=== PATIENT | female | born 1990 | race Caucasian/White ===

== ENCOUNTER → 2017-10-26 14:29 | Outpatient (CLI) | payer OTHER, SELFPAY ==
[2017-10-26 15:15] LABS: Basophils # 0.1 K/mm3 (0-0.2); Basophils % 0.8 % (0.1-2.0); Eosinophils # 0.1 K/mm3 (0.0-0.4); Eosinophils % 1.1 % (0.1-12.0); Hematocrit 42.8 % (37.0-47.0); Hemoglobin 14.1 g/dL (12.2-16.2); Lymphocytes # 1.7 K/mm3 (0.7-4.5); Mean Corpuscular HGB Conc 33.1 g/dL (31.8-35.4); Mean Corpuscular Hemoglobin 29.6 pg (27.0-31.2); Mean Corpuscular Volume 89.6 fl (81-99); Monocytes # 0.4 K/mm3 (0.1-1.0); Monocytes % 5.8 % (1.7-9.3); Neutrophils # 4.5 K/mm3 (1.8-7.8); Neutrophils % 67.2 % (37.0-80.0); Platelet Count 276 K/mm3 (142-424); Red Blood Count 4.77 M/mm3 (4.20-5.40); Red Cell Distribution Width 12.7 % (11.5-17.5); White Blood Count 6.7 K/mm3 (4.8-10.8)
[2017-10-26 17:03] LABS: Alanine Aminotransferase 23 U/L (12-78); Albumin Level 4.2 gm/dL (3.4-5.0); Albumin/Globulin Ratio 1.1 (1.1-1.8); Alkaline Phosphatase 96 U/L (46-116); Anion Gap 11.7 mEq/L (5-15); Aspartate Amino Transferase 17 U/L (15-37); Bilirubin,Total 0.3 mg/dL (0.2-1.0); Blood Urea Nitrogen 10 mg/dL (7-18); Calcium 8.8 mg/dL (8.5-10.1); Carbon Dioxide 28 mmol/L (21.0-32.0); Chloride 105 mmol/L (98-107); Creatinine,Serum 0.69 mg/dL (0.55-1.02); Estimated Glomerular Filt Rate 104 ml/min (>60); Ferritin 56 ng/mL (8-388); Free T4 (Free Thyroxine) 0.91 ng/dl (0.76-1.46); GFR (African American) 125 ML/MIN (>60); Globulin 3.7 gm/dl (1.3-3.2); Glucose 99 mg/dL (74-106); Potassium 3.7 mmoL/L (3.5-5.1); Sodium 141 mmol/L (136-145); Thyroid Stimulating Hormone 0.88 uIU/ml (0.358-3.740); Total Protein,Serum 7.9 gm/dL (6.4-8.2)
== END ==
PROVIDERS: PCP Nurse Practitioner Family; Visit Provider Nurse Practitioner Family
DX: I49.9 Cardiac arrhythmia, unspecified (principal); R06.02 Shortness of breath
CPT/HCPCS: 36415; 80053; 82330; 82728; 84439; 84443; 85025; 93225; 93226

== ENCOUNTER → 2017-11-08 14:46 | Outpatient (POV) | payer OTHER, SELFPAY | PROVIDERS: PCP Nurse Practitioner Family; Visit Provider Nurse Practitioner Acute Care | DX: Z00.00 Encounter for general adult medical examination without abnormal findings (principal) ==

== ENCOUNTER 2017-12-07 19:38 | Emergency (ER) | payer OTHER, SELFPAY ==
[2017-12-07 19:40] VITALS: BP 104/82; PULSE 76; RESP 18; TEMP 37.2; O2SAT 98; BMI 20.7
[2017-12-07 20:06] LABS: Microscopic, Urine URINE MICROSCOPIC (MICROSCOPIC)
--- NOTE | 2017-12-07 20:08 | CT_ITS ---
CT abdomen pelvis wo con CLINICAL INDICATION: Lower abdominal pain ITS.REASON: abdominal pain ORDERING PHYSICIAN: Neo Irby MD PATIENT AGE: 27 years COMPARISON: 04/27/2017 TECHNIQUE: Axial images obtained with sagittal and coronal reformats. PROCEDURE: Oral Contrast: None IV Contrast: None . FINDINGS: Lower thorax: No acute finding ABDOMEN: Liver: No masses or biliary dilatation. Gallbladder: Status post cholecystectomy without ductal dilatation Pancreas: No masses or peripancreatic fluid collections. Spleen: Unremarkable. Adrenals: Unremarkable Kidneys/ureters: No masses. No obstructing renal calculi. No hydronephrosis. No perinephric fluid collections. No ureteral dilatation or obvious ureteral calculi. Punctate bilateral renal calculi at 1 to 2 mm in the upper pole on the right in the mid pole on the left Stomach bowel: Nondistended. No obvious mass or thickening. Appendix: No evidence of appendicitis. PELVIS: Reproductive: Unremarkable Bladder: Nondistended. No obvious stones or masses. ABDOMEN & PELVIS: Peritoneum: No abnormal fluid collections. No obvious inflammatory changes. No free air. Lymph nodes: No enlarged lymph nodes apparent. Vasculature: No evidence of abdominal aortic aneurysm. No retroperitoneal hemorrhage evident. Bones: No acute fracture IMPRESSION: 1. No acute abdominal or pelvic findings 2. Nonobstructing punctate bilateral renal calculi
[2017-12-07 20:14] LABS: Urine Pregnancy, HCG Qual. Negative (Negative)
[2017-12-07 20:17] LABS: Appearance,Urine CLEAR (Clear); Bilirubin,Urine Negative (Negative); Blood, Urine Negative (Negative); Color,Urine YELLOW (Yellow); Glucose,Urine (UA) Negative (Negative); Ketones,Urine Negative (Negative); Leukocyte Esterase,Urine Negative (Negative); Nitrate,Urine Negative (Negative); Protein,Urine Negative (Negative); Specific Gravity, Urine 1.025 (1.005-1.030); Urobilinogen,Urine 0.2 EU/dl (0.2)
[2017-12-07 20:22] LABS: Basophils % 0.5 % (0.1-2.0); Eosinophils % 0.1 % (0.1-12.0); Hematocrit 41.7 % (37.0-47.0); Hemoglobin 13.5 g/dL (12.2-16.2); Lymphocytes # 1.4 K/mm3 (0.7-4.5); Lymphocytes % 25.6 K/mm3 (10-50); Mean Corpuscular HGB Conc 32.4 g/dL (31.8-35.4); Mean Corpuscular Hemoglobin 28.8 pg (27.0-31.2); Mean Corpuscular Volume 88.8 fl (81-99); Mean Platelet Volume 7.1 fl (7.4-10.4); Monocytes # 0.5 K/mm3 (0.1-1.0); Monocytes % 9.3 % (1.7-9.3); Neutrophils # 3.6 K/mm3 (1.8-7.8); Neutrophils % 64.5 % (37.0-80.0); Platelet Count 294 K/mm3 (142-424); Red Blood Count 4.69 M/mm3 (4.20-5.40); Red Cell Distribution Width 12.2 % (11.5-17.5); White Blood Count 5.6 K/mm3 (4.8-10.8)
[2017-12-07 20:30] LABS: Lipase 60 u/L (73-393)
[2017-12-07 20:35] LABS: Alanine Aminotransferase 285 U/L (12-78); Alkaline Phosphatase 159 U/L (46-116); Amylase 46 U/L (25-125); Anion Gap 11.5 mEq/L (5-15); Aspartate Amino Transferase 215 U/L (15-37); Bilirubin,Total 0.2 mg/dL (0.2-1.0); Blood Urea Nitrogen 7 mg/dL (7-18); Calcium 8.5 mg/dL (8.5-10.1); Carbon Dioxide 30 mmol/L (21.0-32.0); Chloride 104 mmol/L (98-107); Creatinine Clearance Estimated 113 mL/min (0-300); Creatinine,Serum 0.76 mg/dL (0.55-1.02); Estimated Glomerular Filt Rate 93 ml/min (>60); GFR (African American) 112 ML/MIN (>60); Globulin 3.9 gm/dl (1.3-3.2); Glucose 93 mg/dL (74-106); Potassium 3.5 mmoL/L (3.5-5.1); Sodium 142 mmol/L (136-145); Total Protein,Serum 7.9 gm/dL (6.4-8.2)
[2017-12-07 20:48] VITALS: BP 110/77; PULSE 65; RESP 14; O2SAT 100
[2017-12-07 20:52] LABS: Bacteria,Urine 3+ /lpf; Mucus,Urine 1+ /lpf; RBC,Urine Occasional #/hpf (0-3); Squamous Epithelial Cell,Urine 20-50 #/hpf (0-5); WBC,Urine Occasional #/hpf (0-3)
[2017-12-07 21:55] LABS: Erythrocyte Sedimentation Rate 11 mm/hr (0-20)
--- NOTE | 2017-12-07 21:59 | [facility].EDNVD ---
ED Disposition Clinical Impression: Abdominal pain Qualifiers: Abdominal location: unspecified location Qualified Code(s): R10.9 - Unspecified abdominal pain Disposition: Home, Self-Care Condition on Discharge: Good Instructions: DI for Acute Abdomen Additional Instructions: call pcp in am Referrals: Sabine Juan APRN [Primary Care Provider] - - Critical Care Critical Care Time: No Attestation: On 12/07/17, the high probability of a clinically significant, sudden or life threatening deterioration of the following system(s) required my full and direct attention, intervention and personal management. The time I documented below is in addition to time spent performing reported procedures but includes the following listed in this critical care notation. Medical Decision Making - Medical Records Medical records reviewed: Yes: I reviewed the patient's medical records. - Federico Inquiry Pt receiving controlled substance: No Vital Signs: 12/07/17 19:40 12/07/17 20:48 Temperature 98.9 F Temperature Source Oral Pulse Rate [Right Brachial] 76 65 Respiratory Rate 18 14 Blood Pressure [Right Arm] 104/82 110/77 Blood Pressure Mean [Right Arm] 89 88 Blood Pressure Source [Right Arm] Automatic Cuff Automatic Cuff Blood Pressure Position [Right Arm] Sitting Sitting 02 Sat by Pulse Oximetry 98 100 Oxygen Delivery Method Room Air Room Air - Lab Data Lab results reviewed: Yes: I reviewed the patient's lab results. Lab Results 12/07/17 19:55: Urine Color Yellow, Urine Appearance Clear, Urine pH 6.0, Ur Specific [place] 1.025, Urine Protein Negative, Urine Glucose (UA) Negative, Urine Ketones Negative, Urine Blood Negative, Urine Nitrate Negative, Urine Bilirubin Negative, Urine Urobilinogen 0.2, Ur Leukocyte Esterase Negative, Urine RBC Occasional, Urine WBC Occasional, Ur Squamous Epith Cells 20-50, Urine Bacteria 3+, Urine Mucus 1+ 12/07/17 19:55: WBC 5.6, RBC 4.69, Hgb 13.5, Hct 41.7, MCV 88.8, MCH 28.8, MCHC 32.4, RDW 12.2, Plt Count 294, MPV 7.1 L, Neut % (Auto) 64.5, Lymph % (Auto) 25.6, [place] % (Auto) 9.3, Eos % (Auto) 0.1, Baso % (Auto) 0.5, Neut # (Auto) 3.6, Lymph # (Auto) 1.4, [place] # (Auto) 0.5, Eos # (Auto) 0.0, Baso # (Auto) 0.0 12/07/17 19:55: Urine HCG, Qual Negative 12/07/17 19:55: Sodium 142, Potassium 3.5, Chloride 104, Carbon Dioxide 30, Anion Gap 11.5, BUN 7, Creatinine 0.76, Estimated Creat Clear 113, Estimated GFR 93, Est GFR ( Amer) 112, Glucose 93, Calcium 8.5, Total Bilirubin 0.2, AST 215 H, ALT 285 H, Alkaline Phosphatase 159 H, Total Protein 7.9, Albumin 4.0, Globulin 3.9 H, Albumin/Globulin Ratio 1.0 L, Amylase 46 12/07/17 19:55: Lipase 60 L 12/07/17 19:55: ESR 11 Result diagrams: 12/07/17 19:55 12/07/17 19:55 Orders (Tests/Meds): ED MEDICATIONS Generic Name Dose Route Start Last Admin Trade Name Freq PRN Reason Stop Dose Admin Sodium Chloride 1,000 mls @ 999 mls/hr 12/07/17 21:00 12/07/17 21:05 Sod Chlor 0.9% 1000ml Bag IV 12/07/17 22:00 999 mls/hr .Q1H1M JOSSE Administration Discontinued Medications Generic Name Dose Route Start Last Admin Trade Name Freq PRN Reason Stop Dose Admin Ketorolac Tromethamine 30 mg 12/07/17 20:51 12/07/17 20:52 Toradol 30mg/Ml Vial IV 12/07/17 20:52 30 mg ONCE ONE Administration Ondansetron HCl 4 mg 12/07/17 20:23 12/07/17 20:26 Zofran 4mg/2ml Vial IV 12/07/17 20:24 4 mg ONCE ONE Administration Promethazine HCl 12.5 mg 12/07/17 21:01 Phenergan 25mg/Ml 1ml Vial IM 12/07/17 21:02 ONCE ONE Promethazine HCl 12.5 mg 12/07/17 21:08 12/07/17 21:09 Phenergan 25mg/Ml 1ml Vial IV 12/07/17 21:09 12.5 mg ONCE ONE Administration Sodium Chloride 12.5 ml 12/07/17 21:01 Sod Chlor 0.9% 25ml Bag IV 12/07/17 21:02 ONCE ONE Sodium Chloride 12.5 ml 12/07/17 21:08 Sod Chlor 0.9% 25ml Bag IV 12/07/17 21:09 ONCE ONE ORDERS Category Date Time Status CT
--- NOTE | 2017-12-07 22:02 | ED_ITS ---
ED Disposition Clinical Impression: Abdominal pain Qualifiers: Abdominal location: unspecified location Qualified Code(s): R10.9 - Unspecified abdominal pain Disposition: Home, Self-Care Condition on Discharge: Good Instructions: DI for Acute Abdomen Additional Instructions: call pcp in am Referrals: Sabine Juan APRN [Primary Care Provider] - - Critical Care Critical Care Time: No Attestation: On 12/07/17, the high probability of a clinically significant, sudden or life threatening deterioration of the following system(s) required my full and direct attention, intervention and personal management. The time I documented below is in addition to time spent performing reported procedures but includes the following listed in this critical care notation. Medical Decision Making - Medical Records Medical records reviewed: Yes: I reviewed the patient's medical records. - Federico Inquiry Pt receiving controlled substance: No Vital Signs: 12/07/17 19:40 12/07/17 20:48 Temperature 98.9 F Temperature Source Oral Pulse Rate [Right Brachial] 76 65 Respiratory Rate 18 14 Blood Pressure [Right Arm] 104/82 110/77 Blood Pressure Mean [Right Arm] 89 88 Blood Pressure Source [Right Arm] Automatic Cuff Automatic Cuff Blood Pressure Position [Right Arm] Sitting Sitting 02 Sat by Pulse Oximetry 98 100 Oxygen Delivery Method Room Air Room Air - Lab Data Lab results reviewed: Yes: I reviewed the patient's lab results. Lab Results 12/07/17 19:55: Urine Color Yellow, Urine Appearance Clear, Urine pH 6.0, Ur Specific [place] 1.025, Urine Protein Negative, Urine Glucose (UA) Negative, Urine Ketones Negative, Urine Blood Negative, Urine Nitrate Negative, Urine Bilirubin Negative, Urine Urobilinogen 0.2, Ur Leukocyte Esterase Negative, Urine RBC Occasional, Urine WBC Occasional, Ur Squamous Epith Cells 20-50, Urine Bacteria 3+, Urine Mucus 1+ 12/07/17 19:55: WBC 5.6, RBC 4.69, Hgb 13.5, Hct 41.7, MCV 88.8, MCH 28.8, MCHC 32.4, RDW 12.2, Plt Count 294, MPV 7.1 L, Neut % (Auto) 64.5, Lymph % (Auto) 25.6, [place] % (Auto) 9.3, Eos % (Auto) 0.1, Baso % (Auto) 0.5, Neut # (Auto) 3.6 , Lymph # (Auto) 1.4, [place] # (Auto) 0.5, Eos # (Auto) 0.0, Baso # (Auto) 0.0 12/07/17 19:55: Urine HCG, Qual Negative 12/07/17 19:55: Sodium 142, Potassium 3.5, Chloride 104, Carbon Dioxide 30, Anion Gap 11.5, BUN 7, Creatinine 0.76, Estimated Creat Clear 113, Estimated GFR 93, Est GFR ( Amer) 112, Glucose 93, Calcium 8.5, Total Bilirubin 0.2 , AST 215 H, ALT 285 H, Alkaline Phosphatase 159 H, Total Protein 7.9, Albumin 4.0, Globulin 3.9 H, Albumin/Globulin Ratio 1.0 L, Amylase 46 12/07/17 19:55: Lipase 60 L 12/07/17 19:55: ESR 11 Result diagrams: 12/07/17 19:55 12/07/17 19:55 Orders (Tests/Meds): ED MEDICATIONS Generic Name Dose Route Start Last Admin Trade Name Freq PRN Reason Stop Dose Admin Sodium Chloride 1,000 mls @ 999 mls/hr 12/07/17 21:00 12/07/17 21:05 Sod Chlor 0.9% 1000ml Bag IV 12/07/17 22:00 999 mls/hr .Q1H1M JOSSE Administration Discontinued Medications Generic Name Dose Route Start Last Admin Trade Name Freq PRN Reason Stop Dose Admin Ketorolac Tromethamine 30 mg 12/07/17 20:51 12/07/17 20:52 Toradol 30mg/Ml Vial IV 12/07/17 20:52 30 mg ONCE ONE Administration Ondansetron HCl 4 mg 12/07/17 20:23 12/07/17 20:26
[2017-12-07 22:19] VITALS: BP 121/71; PULSE 81; RESP 20; TEMP 37
[2017-12-09 09:17] LABS: Hep A Ab, IgM Negative (Negative); Hepatitis B Core Antibody IgM Negative (Negative); Hepatitis B Surface Antigen Negative (Negative)
[2017-12-10 15:14] LABS: Hepatitis C Antibody <0.1 s/co ratio (0.0-0.9)
== END 2017-12-07 22:19 | disposition home or self-care (01) ==
PROVIDERS: Emergency Medicine; Emergency Provider Emergency Medicine; PCP Nurse Practitioner
DX: R10.31 Right lower quadrant pain (principal); R10.32 Left lower quadrant pain; Z91.040 Latex allergy status; Z88.7 Allergy status to serum and vaccine; Z88.2 Allergy status to sulfonamides
CPT/HCPCS: 74176; 80053; 80074; 81001; 81025; 82150; 83690; 85025; 85651; 87086; 96360; 96365; 96374; 96375; 96376; 99283; J0595; J2405

== ENCOUNTER 2018-03-25 13:40 | Outpatient (CLI) | payer OTHER, SELFPAY ==
[2018-03-25 13:40] VITALS: BMI 22.4
[2018-03-25 14:36] LABS: Basophils % 0.5 % (0.1-2.0); Eosinophils # 0.3 K/mm3 (0.0-0.4); Eosinophils % 4.9 % (0.1-12.0); Hematocrit 36.6 % (37.0-47.0); Hemoglobin 11.9 g/dL (12.2-16.2); Lymphocytes # 1.3 K/mm3 (0.7-4.5); Mean Corpuscular HGB Conc 32.4 g/dL (31.8-35.4); Mean Corpuscular Volume 86.5 fl (81-99); Mean Platelet Volume 6.8 fl (7.4-10.4); Monocytes # 0.4 K/mm3 (0.1-1.0); Monocytes % 7.2 % (1.7-9.3); Neutrophils # 3.5 K/mm3 (1.8-7.8); Neutrophils % 63.5 % (37.0-80.0); Platelet Count 308 K/mm3 (142-424); Red Blood Count 4.24 M/mm3 (4.20-5.40); Red Cell Distribution Width 12.8 % (11.5-17.5); White Blood Count 5.4 K/mm3 (4.8-10.8)
[2018-03-25 14:40] VITALS: BP 91/58; PULSE 72; RESP 18
[2018-03-25 14:47] LABS: Alanine Aminotransferase 31 U/L (12-78); Albumin Level 3.6 gm/dL (3.4-5.0); Alkaline Phosphatase 114 U/L (46-116); Anion Gap 12.8 mEq/L (5-15); Aspartate Amino Transferase 28 U/L (15-37); Bilirubin,Total 0.2 mg/dL (0.2-1.0); Blood Urea Nitrogen 7 mg/dL (7-18); Calcium 8.4 mg/dL (8.5-10.1); Carbon Dioxide 26 mmol/L (21.0-32.0); Chloride 106 mmol/L (98-107); Creatinine Clearance Estimated 156 mL/min (0-300); Estimated Glomerular Filt Rate 122 ml/min (>60); GFR (African American) 147 ML/MIN (>60); Globulin 3.7 gm/dl (1.3-3.2); Glucose 84 mg/dL (74-106); Potassium 3.8 mmoL/L (3.5-5.1); Sodium 141 mmol/L (136-145); Total Protein,Serum 7.3 gm/dL (6.4-8.2)
[2018-03-25 15:09] LABS: Alanine Aminotransferase 33 U/L (12-78); Albumin Level 3.6 gm/dL (3.4-5.0); Alkaline Phosphatase 113 U/L (46-116); Aspartate Amino Transferase 27 U/L (15-37); Bilirubin,Direct 0.1 mg/dL (0.0-0.2); Bilirubin,Indirect 0.1 mg/dL (0.0-0.9); Bilirubin,Total 0.2 mg/dL (0.2-1.0)
[2018-03-25 15:10] VITALS: BP 114/76; PULSE 77; RESP 18
[2018-03-25 16:00] VITALS: BP 152/61; PULSE 66; RESP 20; TEMP 36.9; O2SAT 96
[2018-03-29 09:02] LABS: Rubella Antibodies, IgG 9.08 index (Immune >0.99); Varicella Zoster IgG 1530 index (Immune >165)
== END 2018-03-25 16:00 | disposition home or self-care (01) ==
LOC: INF 13:43
PROVIDERS: Family Medicine; PCP Nurse Practitioner; Visit Provider Nurse Practitioner
DX: E86.0 Dehydration (principal); L02.91 Cutaneous abscess, unspecified
CPT/HCPCS: 80053; 80076; 85025; 86762; 86787; 96360; 96375

== ENCOUNTER → 2018-04-11 16:42 | Outpatient (CLI) | payer OTHER, SELFPAY ==
--- NOTE | 2018-04-11 | XR_ITS ---
XR hand RT min 3V HISTORY: ITS.REASON: PAIN ORDERING PHYSICIAN: Sabine Juan PATIENT AGE: 27 years COMPARISON: Right hand 03/16/2017 FINDINGS: No fracture or dislocation. No lytic or blastic change. There is normal mineralization.. The joint spaces are well-preserved. No significant degenerative/arthritic changes. No erosive changes evident.. IMPRESSION: Negative, no acute finding
--- NOTE | 2018-04-11 | XR_ITS ---
XR wrist RT min 3V HISTORY: ITS.REASON: PAIN ORDERING PHYSICIAN: Sabine Juan PATIENT AGE: 27 years COMPARISON: Right wrist 02/15/2017 FINDINGS: No fracture or dislocation. No lytic or blastic change. There is normal mineralization.. The joint spaces are well-preserved. No significant degenerative/arthritic changes. No erosive changes evident.. IMPRESSION: Negative wrist
== END ==
PROVIDERS: PCP Nurse Practitioner; Visit Provider Nurse Practitioner
DX: M25.531 Pain in right wrist (principal)
CPT/HCPCS: 73110; 73130

== ENCOUNTER 2018-05-29 15:22 | Observation (INO) ==
[2018-05-29 15:45] LABS: Basophils % 0.4 % (0.1-2.0); Eosinophils # 0.1 K/mm3 (0.0-0.4); Eosinophils % 1.6 % (0.1-12.0); Hematocrit 32.9 % (37.0-47.0); Hemoglobin 10.5 g/dL (12.2-16.2); Lymphocytes # 1.5 K/mm3 (0.7-4.5); Lymphocytes % 17.8 K/mm3 (10-50); Mean Corpuscular HGB Conc 31.9 g/dL (31.8-35.4); Mean Corpuscular Hemoglobin 27.8 pg (27.0-31.2); Mean Corpuscular Volume 87.1 fl (81-99); Mean Platelet Volume 6.7 fl (7.4-10.4); Monocytes # 0.6 K/mm3 (0.1-1.0); Monocytes % 7.3 % (1.7-9.3); Platelet Count 430 K/mm3 (142-424); Red Blood Count 3.78 M/mm3 (4.20-5.40); Red Cell Distribution Width 14.1 % (11.5-17.5); White Blood Count 8.3 K/mm3 (4.8-10.8)
--- NOTE | 2018-05-29 15:46 | Emergency Department Note ---
ED Disposition Clinical Impression: Hypokalemia, Hyperglycemia, Sinus tachycardia Disposition: Home, Self-Care Condition on Discharge: Fair Referrals: Sabine Juan APRN [Primary Care Provider] - - Critical Care Critical Care Time: No Attestation: On 05/29/18, the high probability of a clinically significant, sudden or life threatening deterioration of the following system(s) required my full and direct attention, intervention and personal management. The time I documented below is in addition to time spent performing reported procedures but includes the following listed in this critical care notation. Medical Decision Making - Federico Inquiry Pt receiving controlled substance: No Federico was queried for this patient: No Vital Signs: 05/29/18 15:22 05/29/18 15:50 05/29/18 16:40 Temperature 97.9 F Temperature Source Oral Pulse Rate [Right Radial] 144 H 122 H 121 H Respiratory Rate 24 20 Blood Pressure [Right Arm] 127/84 127/84 115/49 Blood Pressure Mean [Right Arm] 98 98 71 Blood Pressure Source [Right Arm] Manual Cuff/ Doppler Automatic Cuff Automatic Cuff Blood Pressure Position [Right Arm] Sitting Sitting Sitting 02 Sat by Pulse Oximetry 97 100 100 Oxygen Delivery Method Nasal Cannula Nasal Cannula Nasal Cannula Oxygen Flow Rate (LPM) 2 2 2 05/29/18 17:54 Temperature Temperature Source Pulse Rate [Right Radial] 108 H Respiratory Rate 16 Blood Pressure [Right Arm] 115/49 Blood Pressure Mean [Right Arm] 71 Blood Pressure Source [Right Arm] Automatic Cuff Blood Pressure Position [Right Arm] Sitting 02 Sat by Pulse Oximetry 100 Oxygen Delivery Method Nasal Cannula Oxygen Flow Rate (LPM) 2 - Lab Data Lab Results 05/29/18 15:33: WBC 8.3, RBC 3.78 L, Hgb 10.5 L, Hct 32.9 L, MCV 87.1, MCH 27.8, MCHC 31.9, RDW 14.1, Plt Count 430 H, MPV 6.7 L, Neut % (Auto) 73.0, Lymph % (Auto) 17.8, [place] % (Auto) 7.3, Eos % (Auto) 1.6, Baso % (Auto) 0.4, Neut # (Auto) 6.0, Lymph # (Auto) 1.5, [place] # (Auto) 0.6, Eos # (Auto) 0.1, Baso # (Aut o) 0.0 05/29/18 15:33: PT 9.9, INR 0.96, D-Dimer 234 05/29/18 15:33: Total Creatine Kinase 30, CK-MB (CK-2) < 0.5, CK-MB (CK-2) Rel Index 1.7, Troponin I < 0.02 05/29/18 15:33: B-Natriuretic Peptide 6 05/29/18 15:33: Sodium 145, Potassium 2.2 L*, Chloride 107, Carbon Dioxide 21, Anion Gap 19.2 H, BUN 4 L, Creatinine 1.02, Estimated Creat Clear 97, Estimated GFR 66, Est GFR ( Amer) 79, Glucose 234 H, Calcium 8.3 L, Total Bilirubin 0.1 L, AST 13 L, ALT 23, Alkaline Phosphatase 115, Total Protein 7.3, Albumin 3.6, Globulin 3.7 H, Albumin/Globulin Ratio 1.0 L 05/29/18 15:33: Serum HCG, Qual Negative 05/29/18 15:33: Hemoglobin A1c 5.0 05/29/18 15:36: Specimen Source Right brachial, O2 % 28%, ABG pH 7.36, ABG pCO2 37.3, ABG pO2 174.0 H, ABG HCO3 20.5 L, ABG Total CO2 21.6 L, ABG O2 Saturation 99, ABG Base Excess -5.0 L, Gerber Test Non applicable 05/29/18 17:16: Sodium 145, Potassium 2.7 L* D, Chloride 110 H, Carbon Dioxide 25, Anion Gap 12.7, BUN 4 L, Creatinine 0.73 D, Estimated Creat Clear 136, Estimated GFR 96, Est GFR ( Amer) 117 D, Glucose 107 H D, Calcium 7.8 L 05/29/18 17:16: Magnesium 1.4 05/29/18 17:22: Urine Color Yellow, Urine Appearance Clear, Urine pH 6.0, Ur Specific [place] <= 1.005, Urine Protein Negative, Urine Glucose (UA) Negative, Urine Ketones Negative, Urine Blood Negative, Urine Nitrate Negative, Urine Bilirubin Negative, Urine Urobilinogen 0.2, Ur Leukocyte Esterase Negative, Ur Squamous Epith Cells 3-5, Ur Renal Epithelial Cell Occasional, Amorphous Sediment Trace 05/29/18 17:22: Urine Opiates Screen Positive H, Urine Methadone Screen Negative, Ur Barbituates Screen Negative, Ur Phencyclidine Scrn Negative, Ur Am phetamines Screen Negative, U Benzodiazepines Scrn Positive H, Urine Cocaine Screen Negative, U Marijuana (THC) Screen Negative Result diagrams: 05/29/18 15:33 05/29/18 17:16 Orders (Tests/Meds): ED MEDICATIONS Discontinued Medications Generic Name Dose Route Start Last Admin Trade Name Freq PRN Reason Stop Dose Admin Sodium Chloride 1,000 mls @ 999 mls/hr 05/29/18 15:45 05/29/18 15:52 Sod Chlor 0.9% 1000ml Bag IV 05/29/18 16:45 999 mls/hr .Q1H1M JOSSE Administration Sodium Chloride 1,000 mls @ 999 mls/hr 05/29/18 16:45 05/29/18 16:47 Sod Chlor 0.9% 1000ml Bag IV 05/29/18 17:45 999 mls/hr .Q1H1M JOSSE Administration Lorazepam 2 mg 05/29/18 15:42 05/29/18 15:51 Ativan 2mg/Ml Vial IV 05/29/18 15:43 2 mg ONCE ONE Administration Morphine Sulfate 2 mg 05/29/18 16:43 05/29/18 16:47 Morphine 2mg/Ml Syringe IV 05/29/18 16:44 2 mg ONCE ONE Administration Ondansetron HCl 4 mg 05/29/18 15:42 05/29/18 15:51 Zofran 4mg/2ml Vial IV 05/29/18 15:43 4 mg ONCE ONE Administration Potassium Chloride 20 meq 05/29/18 16:19 05/29/18 16:21 Klor-Con 20meq Tablet PO 05/29/18 16:20 20 meq ONCE ONE Administration Promethazine HCl 12.5 mg 05/29/18 16:30 05/29/18 16:34 Phenergan 25mg/Ml 1ml Vial IV 05/29/18 16:31 12.5 mg ONCE ONE Administration Sodium Chloride 25 ml 05/29/18 16:30 Sod Chlor 0.9% 25ml Bag IV 05/29/18 16:31 ONCE ONE ORDERS Category Date Time Status UA [Urinalysis and Microscopic] Stat Lab 05/29/18 17:22 Ordered ABG [Arterial Blood Gas] Stat RT 05/29/18 15:36 Ordered - Radiology Data #1 Image(s): Chest Image Reviewed: Yes I reviewed the patient's radiology image, Yes I have reviewed radiologist's interpretation Preliminary Findings: Normal/NAD MPRESSION: Stable chest. Nothing definite acute. - ECG Data Tracing #1 Sinus tachycardia 1 41/min baseline artifact no acute findings ECG initial impression date: 05/29/18 ECG initial impression time: 15:20 Medical Decision Narrative: The patient gradually improved questions were answered, requested hemoglobin A1 c. Her I repeated her labs potassium came up to 2.7. Reviewed CXr and lab results with the patient. I called who was environmental engineer for Dr. Hines and after discussion we agreed to admit the patient for IV fluid therapy hypokalemia repeat BMp at 2100 and order insulin and c peptid on her. General Adult HPI - General Chief complaint: Arrhythmia/Palpitations Stated complaint: Chest Pain Time Seen by Provider: 05/29/18 15:25 Mode of Arrival: Wheelchair Limitations: No Limitations Description of Symptoms (Recalled from ER Triage Doc. by RN): sitting at home, no noted activity, pt states she began to have shortness of air, and felt her heart rate beating out of her chest, notes pain as well 10/10. states checked hr manually, was 190. beared down in valgal maneuver, heart rate decreased to 90 then went right back to 170's. 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 30 minutes ago while she was studying she developed palpitations shortness of air numbness of the mouth and the hand associated with chest pressure. She checked her pulse and she was having a heart rate of 190/min so she did a Valsalva maneuver and she brought it down and came to the ED with a heart rate of 140/min. She continues to have a heart rate of 1 20/min on the monitor. He denies recent intake of alcohol or drug use. Denies smoke. One months ago she was diagnosed with vocal cord dysfunction after her trip to the [facility] and was seen at [facility] and started on Celexa 20 mg. Onset (ago): minute(s) (30 minutes prior to arrival.) Location: head, chest, upper extremity, lower extremity Severity: moderate Consistency: constant Relieving factors: other (Symptoms were reduced by Valsalva maneuver. ) Exacerbating factors: none Associated symptoms: nausea/vomiting (felt nauseoius oin the ED. ) - Related Data Home Medications Medication Instructions Recorded Confirmed Phenobarb/Hyoscy/Atropine/Scop 16.2 mg PO TID PRN 12/07/17 04/09/18 [ Tablet] RX: Omeprazole [Omeprazole 20mg 20 mg PO DAILY 12/07/17 04/09/18 Capsule] RX: Ondansetron [Zofran 4mg 4 mg PO Q6HP PRN 12/07/17 04/09/18 ODT] RX: Promethazine HCl [Phenergan 25 mg PO QID 12/07/17 04/09/18 25mg tab] Gabapentin [Gabapentin 100mg Cap] 300 mg PO BID 02/17/18 04/09/18 Prochlorperazine Maleate 5 mg PO DAILY 02/17/18 04/09/18 [Compazine] RX: Amitriptyline HCl [Elavil 50mg 50 mg PO DAILY 02/17/18 04/09/18 tablet] RX: Scopolamine [Transderm-Scop 1 patch TOPICAL DAILY 02/17/18 04/09/18 1.5mg/72hrs patch] RX: Zinc 50 mg PO DAILY 02/17/18 04/09/18 Ubidecarenone [Coenzyme Q10] 10 mg PO DAILY 02/17/18 04/09/18 Hydrocodone/Acetaminophen 1 each PO Q4HP PRN 04/09/18 04/09/18 [Hydrocodone-Acetamin 5-325 mg] RX: Sucralfate [Sucralfate 1gm 1 tab PO BID 04/09/18 04/09/18 Tab] Previous Rx's Medication Instructions Recorded Furosemide [Lasix 20mg tab] 20 mg PO DAILY #6 tab 05/07/18 RX: Potassium Chloride 20 meq PO DAILY #6 tablet.er 05/07/18 Allergies Allergy/AdvReac Type Severity Reaction Status Date / Time latex [LATEX] Allergy Unknown Verified 04/09/18 01:05 Pertussis Vaccines Allergy Unknown Verified 07/14/18 01:05 [PERTUSSIS VACCINES] pineapple [PINEAPPLE] Allergy Unknown Verified 04/09/18 01:05 Sulfa (Sulfonamide Allergy Unknown Verified 04/09/18 01:05 Antibiotics) [SULFA (SULFONAMIDE ANTIBIOTICS)] COCONUT Allergy Unknown ANAPHYLACTIC Uncoded 09/14/17 15:14 REACTION [facility] History I have reviewed the patient's past medical history: Yes Medical History: Denies:: Cancer, Diabetes Mellitus Type 1, Diabetes Mellitus Type 2, MRSA Amputation: No Fractures: No - Social History Smoking Status: Never smoker Alcohol Intake: never Alcohol Intake Frequency:: holidays/special occasions only ROS Obtained: Yes All systems reviewed & no additional complaints Physical Exam - General General appearance: alert, in no apparent distress, anxious - Head Head exam: atraumatic, normocephalic, normal inspection - Eye Eye exam: Present: normal appearance, PERRL, EOMI. Absent: scleral icterus, conjunctival redness, jaundice, nystagmus, miosis - ENT ENT exam: Present: normal exam, normal oropharynx, mucous membranes moist, TM's normal bilaterally, normal external ear exam - Neck Neck exam: Present: normal inspection, full ROM, trachea midline. Absent: men ingismus, lymphadenopathy - Chest Chest inspection: Present: normal inspection, symmetric chest wall rise. Absent: tenderness - Respiratory Respiratory exam: Present: normal lung sounds bilaterally. Absent: respiratory distress, wheezes - Cardiovascular Cardiovascular exam: Present: regular rate, normal rhythm. Absent: JVD - Abdominal Exam Abdominal exam: Present: soft, normal bowel sounds. Absent: distention, tenderness, guarding, rebound, rigidity - Extremities Exam Extremities exam: Present: normal inspection, full ROM, normal capillary refill. Absent: tenderness, calf tenderness - Back Exam Back exam: Present: normal inspection. Absent: tenderness, CVA tenderness (R), CVA tenderness (L), paraspinal tenderness, vertebral tenderness - Neurological Exam Neurological exam: Present: alert, oriented X3, CN II-XII intact, motor sensory deficit, reflexes normal - Psychiatric Psychiatric exam: Present: normal affect, normal mood - Skin Skin exam: Present: warm, dry, intact, normal color - Lymphatic Lymphatic Findings: no adenopathy
[2018-05-29 15:54] LABS: INR 0.96 (0.9-1.1); Prothrombin Time 9.9 seconds (9.4-11.8)
[2018-05-29 15:56] LABS: Albumin Level 3.6 gm/dL (3.4-5.0); Anion Gap 19.2 mEq/L (5-15); Bilirubin,Total 0.1 mg/dL (0.2-1.0); Calcium 8.3 mg/dL (8.5-10.1); Globulin 3.7 gm/dl (1.3-3.2); Total Protein,Serum 7.3 gm/dL (6.4-8.2)
[2018-05-29 15:58] LABS: Potassium 2.2 mmoL/L (3.5-5.1)
[2018-05-29 16:10] LABS: ABG HCO3 20.5 mmhg (22.0-26.0); ABG Oxygen Saturation 99 % (90-100); ABG PCO2 37.3 mmhg (35.0-45.0); ABG PH 7.36 mmol/L (7.35-7.45); ABG TCO2 21.6 mmhg (23-27)
[2018-05-29 16:12] LABS: Allen's Test Non Applicable; Oxygen 28% %
[2018-05-29 16:46] LABS: Creatine Kinase 30 U/L (26-192)
[2018-05-29 17:27] LABS: Microscopic, Urine URINE MICROSCOPIC (MICROSCOPIC)
[2018-05-29 17:32] LABS: Appearance,Urine CLEAR (Clear); Bilirubin,Urine Negative (Negative); Blood, Urine Negative (Negative); Color,Urine YELLOW (Yellow); Glucose,Urine (UA) Negative (Negative); Ketones,Urine Negative (Negative); Leukocyte Esterase,Urine Negative (Negative); Protein,Urine Negative (Negative); Specific Gravity, Urine <= 1.005 (1.005-1.030); Urobilinogen,Urine 0.2 EU/dl (0.2)
[2018-05-29 17:33] LABS: Anion Gap 12.7 mEq/L (5-15); Calcium 7.8 mg/dL (8.5-10.1)
[2018-05-29 17:35] LABS: Potassium 2.7 mmoL/L (3.5-5.1)
[2018-05-29 17:39] LABS: Amorphous Sediment,Urine Trace /lpf; Amphetamine/Metha Screen,Urine Negative ng/mL (<1000); Barbiturates Screen,Urine Negative ng/mL (<200); Benzodiazepines Screen,Urine Positive ng/mL (<200); Cannabinoid Screen,Urine Negative ng/mL (<50); Cocaine Screen,Urine Negative ng/mL (<300); Methadone Screen,Urine Negative ng/mL (<300); Opiate Screen,Urine Positive ng/mL (<300); Phencyclidine Screen,Urine Negative ng/mL (<25); Renal Epithelial Cells,Urine Occasional #/lpf (0)
[2018-05-29 21:01] LABS: Blood Urea Nitrogen 4 mg/dL (7-18); Calcium 7.9 mg/dL (8.5-10.1); Carbon Dioxide 27 mmol/L (21.0-32.0); Chloride 110 mmol/L (98-107); Glucose 99 mg/dL (74-106); Sodium 145 mmol/L (136-145)
[2018-05-30 05:51] LABS: Basophils % 0.3 % (0.1-2.0); Eosinophils # 0.1 K/mm3 (0.0-0.4); Eosinophils % 1.9 % (0.1-12.0); Hematocrit 30.9 % (37.0-47.0); Hemoglobin 9.7 g/dL (12.2-16.2); Lymphocytes # 0.8 K/mm3 (0.7-4.5); Lymphocytes % 14.4 K/mm3 (10-50); Mean Corpuscular HGB Conc 31.4 g/dL (31.8-35.4); Mean Corpuscular Hemoglobin 27.9 pg (27.0-31.2); Mean Corpuscular Volume 88.8 fl (81-99); Mean Platelet Volume 6.5 fl (7.4-10.4); Monocytes # 0.2 K/mm3 (0.1-1.0); Monocytes % 3.8 % (1.7-9.3); Neutrophils # 4.6 K/mm3 (1.8-7.8); Neutrophils % 79.6 % (37.0-80.0); Platelet Count 278 K/mm3 (142-424); Red Blood Count 3.48 M/mm3 (4.20-5.40); White Blood Count 5.8 K/mm3 (4.8-10.8)
[2018-05-30 06:09] LABS: Albumin Level 3.3 gm/dL (3.4-5.0); Bilirubin,Total 0.2 mg/dL (0.2-1.0); Calcium 7.7 mg/dL (8.5-10.1); Globulin 3.3 gm/dl (1.3-3.2); Phosphorous 3.7 mg/dL (2.4-4.9); Total Protein,Serum 6.6 gm/dL (6.4-8.2)
--- NOTE | 2018-05-30 07:56 | H&P/Discharge Summary ---
General - General Admission date:: 05/29/18 Discharge date: 05/30/18 *Admission Date: 05/29/18 *Chief complaint: palpitations/chest pain *History of present illness: 88-year-old female was at home in her normal state of health yesterday with acute onset of palpitations. Patient estimated her heart rate was around 170. With a vasovagal maneuver at home she was able to temporarily decrease her heart rate but returned to a severely elevated right along with chest pressure and she presented to the emergency department. In the emergency department she was found to be hypokalemic and hypomagnesemic. Patient denies diuretic use other than a single dose of diuretic received a few weeks ago when she had pedal edema. She was admitted for potassium replacement. [facility] History I have reviewed the patient's past medical history: Yes Medical History: Denies:: Cancer, Diabetes Mellitus Type 1, Diabetes Mellitus Type 2, MRSA Other Surgeries: Yes: Cholecystectomy Amputation: No Fractures: No - *Social History Educational Level: Completed College Smoking Status: Never smoker Alcohol Intake: never Alcohol Intake Frequency:: holidays/special occasions only Occupational Status: student Housing: house Household Members: spouse - Psychiatric History Expresses thoughts of harming self/others: None Suicide Plan Description: No Plan *Family Hx:: Diabetes, Hypertension Review of Systems - Review of Systems Review of systems:: pertinent systems reviewed and negative unless documented below Exam Vital signs and Labs for Last 24 Hours: Temp Pulse Resp BP Pulse Ox 97.7 F 94 H 16 122/70 98 05/30/18 04:00 05/30/18 04:00 05/30/18 04:00 05/30/18 04:00 05/30/18 04:00 Laboratory Results - last 24 hr 05/29/18 15:33: WBC 8.3, RBC 3.78 L, Hgb 10.5 L, Hct 32.9 L, MCV 87.1, MCH 27.8, MCHC 31.9, RDW 14.1, Plt Count 430 H, MPV 6.7 L, Neut % (Auto) 73.0, Lymph % (Auto) 17.8, [place] % (Auto) 7.3, Eos % (Auto) 1.6, Baso % (Auto) 0.4, Neut # (Auto) 6.0, Lymph # (Auto) 1.5, [place] # (Auto) 0.6, Eos # (Auto) 0.1, Baso # (Auto) 0.0 05/29/18 15:33: PT 9.9, INR 0.96, D-Dimer 234 05/29/18 15:33: Total Creatine Kinase 30, CK-MB (CK-2) < 0.5, CK-MB (CK-2) Rel Index 1.7, Troponin I < 0.02 05/29/18 15:33: B-Natriuretic Peptide 6 05/29/18 15:33: Sodium 145, Potassium 2.2 L*, Chloride 107, Carbon Dioxide 21, Anion Gap 19.2 H, BUN 4 L, Creatinine 1.02, Estimated Creat Clear 97, Estimated GFR 66, Est GFR ( Amer) 79, Glucose 234 H, Calcium 8.3 L, Total Bilirubin 0.1 L, AST 13 L, ALT 23, Alkaline Phosphatase 115, Total Protein 7.3, Albumin 3.6, Globulin 3.7 H, Albumin/Globulin Ratio 1.0 L, Lipase 74 05/29/18 15:33: Serum HCG, Qual Negative 05/29/18 15:33: Hemoglobin A1c 5.0 05/29/18 15:36: Specimen Source Right brachial, O2 % 28%, ABG pH 7.36, ABG pCO2 37.3, ABG pO2 174.0 H, ABG HCO3 20.5 L, ABG Total CO2 21.6 L, ABG O2 Saturation 99, ABG Base Excess -5.0 L, Gerber Test Non applicable 05/29/18 17:16: Sodium 145, Potassium 2.7 L* D, Chloride 110 H, Carbon Dioxide 25, Anion Gap 12.7, BUN 4 L, Creatinine 0.73 D, Estimated Creat Clear 136, Estimated GFR 96, Est GFR ( Amer) 117 D, Glucose 107 H D, Calcium 7.8 L 05/29/18 17:16: Magnesium 1.4 05/29/18 17:22: Urine Color Yellow, Urine Appearance Clear, Urine pH 6.0, Ur Specific [place] <= 1.005, Urine Protein Negative, Urine Glucose (UA) Negative, Urine Ketones Negative, Urine Blood Negative, Urine Nitrate Negative, Urine Bilirubin Negative, Urine Urobilinogen 0.2, Ur Leukocyte Esterase Negative, Ur Squamous Epith Cells 3-5, Ur Renal Epithelial Cell Occasional, Amorphous Sediment Trace 05/29/18 17:22: Urine Opiates Screen Positive H, Urine Methadone Screen Negative, Ur Barbituates Screen Negative, Ur Phencyclidine Scrn Negative, Ur Amphetamines Screen Negative, U Benzodiazepines Scrn Positive H, Urine Cocaine Screen Negative, U Marijuana (THC) Screen Negative 05/29/18 20:38: Sodium 145, Potassium 4.0 D, Chloride 110 H, Carbon Dioxide 27, Anion Gap 12.0, BUN 4 L, Creatinine 0.78, Estimated Creat Clear 126, Estimated GFR 89, Est GFR ( Amer) 108, Glucose 99, Calcium 7.9 L, Troponin I < 0.02 05/30/18 05:24: WBC 5.8 D, RBC 3.48 L, Hgb 9.7 L, Hct 30.9 L, MCV 88.8, MCH 27.9, MCHC 31.4 L, RDW 14.0, Plt Count 278 D, MPV 6.5 L, Neut % (Auto) 79.6, Lymph % (Auto) 14.4, [place] % (Auto) 3.8, Eos % (Auto) 1.9, Baso % (Auto) 0.3, Neut # (Auto) 4.6, Lymph # (Auto) 0.8, [place] # (Auto) 0.2, Eos # (Auto) 0.1, Baso # (Auto) 0.0 05/30/18 05:24: Sodium 146 H, Potassium 4.0, Chloride 111 H, Carbon Dioxide 28, Anion Gap 11.0, BUN 3 L, Creatinine 0.73, Estimated Creat Clear 135, Estimated GFR 96, Est GFR ( Amer) 117, Glucose 94, Calcium 7.7 L, Phosphorus 3.7, Magnesium 2.0 D, Total Bilirubin 0.2, AST 23 D, ALT 28, Alkaline Phosphatase 106, Total Protein 6.6, Albumin 3.3 L, Globulin 3.3 H, Albumin/Globulin Ratio 1.0 L 05/30/18 05:36: POC Glucose 79 I & O for Last 24 hours: Intake & Output 05/27/18 05/28/18 05/29/18 05/30/18 11:59 11:59 11:59 11:59 Intake Total 2227 / 2227 Output Total 700 / 700 Balance 1527 / 1527 Weight 161 lb 6 oz Narrative: Patient is awake and alert sitting up in bed and does not appear to be in any distress. Oropharynx is moist. Neck is without lymphadenopathy. Lungs are clear. Heart has a regular rate and rhythm. Abdomen is soft, nontender, nondistended. Hospital Course Hospital Course: She was admitted and given both oral and IV potassium replacement. Magnesium was replaced as well with 2 g of mag. The following morning patient's potassium was 4. Palpitations had improved. Patient continued to complain of some chest heaviness. Lungs are clear to auscultation. She was discharged home. She will have a follow-up outpatient potassium lab drawn. No changes in medications Results Labs on day of discharge: Labs from last 24 hours 05/30/18 05/30/18 05/30/18 05:36 05:24 05:24 WBC 5.8 D RBC 3.48 L Hgb 9.7 L Hct 30.9 L MCV 88.8 MCH 27.9 MCHC 31.4 L RDW 14.0 Plt Count 278 D MPV 6.5 L Neut % (Auto) 79.6 Lymph % (Auto) 14.4 [place] % (Auto) 3.8 Eos % (Auto) 1.9 Baso % (Auto) 0.3 Neut # (Auto) 4.6 Lymph # (Auto) 0.8 [place] # (Auto) 0.2 Eos # (Auto) 0.1 Baso # (Auto) 0.0 PT INR D-Dimer Specimen Source O2 % ABG pH ABG pCO2 ABG pO2 ABG HCO3 ABG Total CO2 ABG O2 Saturation ABG Base Excess Gerber Test Sodium 146 H Potassium 4.0 Chloride 111 H Carbon Dioxide 28 Anion Gap 11.0 BUN 3 L Creatinine 0.73 Estimated Creat Clear 135 Estimated GFR 96 Est GFR ( Amer) 117 Glucose 94 POC Glucose 79 Hemoglobin A1c Calcium 7.7 L Phosphorus 3.7 Magnesium 2.0 D Total Bilirubin 0.2 AST 23 D ALT 28 Alkaline Phosphatase 106 Total Creatine Kinase CK-MB (CK-2) CK-MB (CK-2) Rel Index Troponin I B-Natriuretic Peptide Total Protein 6.6 Albumin 3.3 L Globulin 3.3 H Albumin/Globulin Ratio 1.0 L Lipase Serum HCG, Qual Urine Color Urine Appearance Urine pH Ur Specific [place] Urine Protein Urine Glucose (UA) Urine Ketones Urine Blood Urine Nitrate Urine Bilirubin Urine Urobilinogen Ur Leukocyte Esterase Ur Squamous Epith Cells Ur Renal Epithelial Cell Amorphous Sediment Urine Opiates Screen Urine Methadone Screen Ur Barbituates Screen Ur Phencyclidine Scrn Ur Amphetamines Screen U Benzodiazepines Scrn Urine Cocaine Screen U Marijuana (THC) Screen 05/29/18 05/29/18 05/29/18 20:38 17:22 17:22 WBC RBC Hgb Hct MCV MCH MCHC RDW Plt Count MPV Neut % (Auto) Lymph % (Auto) [place] % (Auto) Eos % (Auto) Baso % (Auto) Neut # (Auto) Lymph # (Auto) [place] # (Auto) Eos # (Auto) Baso # (Auto) PT INR D-Dimer Specimen Source O2 % ABG pH ABG pCO2 ABG pO2 ABG HCO3 ABG Total CO2 ABG O2 Saturation ABG Base Excess Gerber Test Sodium 145 Potassium 4.0 D Chloride 110 H Carbon Dioxide 27 Anion Gap 12.0 BUN 4 L Creatinine 0.78 Estimated Creat Clear 126 Estimated GFR 89 Est GFR ( Amer) 108 Glucose 99 POC Glucose Hemoglobin A1c Calcium 7.9 L Phosphorus Magnesium Total Bilirubin AST ALT Alkaline Phosphatase Total Creatine Kinase CK-MB (CK-2) CK-MB (CK-2) Rel Index Troponin I < 0.02 B-Natriuretic Peptide Total Protein Albumin Globulin Albumin/Globulin Ratio Lipase Serum HCG, Qual Urine Color Yellow Urine Appearance Clear Urine pH 6.0 Ur Specific [place] <= 1.005 Urine Protein Negative Urine Glucose (UA) Negative Urine Ketones Negative Urine Blood Negative Urine Nitrate Negative Urine Bilirubin Negative Urine Urobilinogen 0.2 Ur Leukocyte Esterase Negative Ur Squamous Epith Cells 3-5 Ur Renal Epithelial Cell Occasional Amorphous Sediment Trace Urine Opiates Screen Positive H Urine Methadone Screen Negative Ur Barbituates Screen Negative Ur Phencyclidine Scrn Negative Ur Amphetamines Screen Negative U Benzodiazepines Scrn Positive H Urine Cocaine Screen Negative U Marijuana (THC) Screen Negative 05/29/18 05/29/18 05/29/18 17:16 17:16 15:36 WBC RBC Hgb Hct MCV MCH MCHC RDW Plt Count MPV Neut % (Auto) Lymph % (Auto) [place] % (Auto) Eos % (Auto) Baso % (Auto) Neut # (Auto) Lymph # (Auto) [place] # (Auto) Eos # (Auto) Baso # (Auto) PT INR D-Dimer Specimen Source Right brachial O2 % 28% ABG pH 7.36 ABG pCO2 37.3 ABG pO2 174.0 H ABG HCO3 20.5 L ABG Total CO2 21.6 L ABG O2 Saturation 99 ABG Base Excess -5.0 L Gerber Test Non applicable Sodium 145 Potassium 2.7 L* D Chloride 110 H Carbon Dioxide 25 Anion Gap 12.7 BUN 4 L Creatinine 0.73 D Estimated Creat Clear 136 Estimated GFR 96 Est GFR ( Amer) 117 D Glucose 107 H D POC Glucose Hemoglobin A1c Calcium 7.8 L Phosphorus Magnesium 1.4 Total Bilirubin AST ALT Alkaline Phosphatase Total Creatine Kinase CK-MB (CK-2) CK-MB (CK-2) Rel Index Troponin I B-Natriuretic Peptide Total Protein Albumin Globulin Albumin/Globulin Ratio Lipase Serum HCG, Qual Urine Color Urine Appearance Urine pH Ur Specific [place] Urine Protein Urine Glucose (UA) Urine Ketones Urine Blood Urine Nitrate Urine Bilirubin Urine Urobilinogen Ur Leukocyte Esterase Ur Squamous Epith Cells Ur Renal Epithelial Cell Amorphous Sediment Urine Opiates Screen Urine Methadone Screen Ur Barbituates Screen Ur Phencyclidine Scrn Ur Amphetamines Screen U Benzodiazepines Scrn Urine Cocaine Screen U Marijuana (THC) Screen 05/29/18 05/29/18 05/29/18 15:33 15:33 15:33 WBC RBC Hgb Hct MCV MCH MCHC RDW Plt Count MPV Neut % (Auto) Lymph % (Auto) [place] % (Auto) Eos % (Auto) Baso % (Auto) Neut # (Auto) Lymph # (Auto) [place] # (Auto) Eos # (Auto) Baso # (Auto) PT INR D-Dimer Specimen Source O2 % ABG pH ABG pCO2 ABG pO2 ABG HCO3 ABG Total CO2 ABG O2 Saturation ABG Base Excess Gerber Test Sodium 145 Potassium 2.2 L* Chloride 107 Carbon Dioxide 21 Anion Gap 19.2 H BUN 4 L Creatinine 1.02 Estimated Creat Clear 97 Estimated GFR 66 Est GFR ( Amer) 79 Glucose 234 H POC Glucose Hemoglobin A1c 5.0 Calcium 8.3 L Phosphorus Magnesium Total Bilirubin 0.1 L AST 13 L ALT 23 Alkaline Phosphatase 115 Total Creatine Kinase CK-MB (CK-2) CK-MB (CK-2) Rel Index Troponin I B-Natriuretic Peptide Total Protein 7.3 Albumin 3.6 Globulin 3.7 H Albumin/Globulin Ratio 1.0 L Lipase 74 Serum HCG, Qual Negative Urine Color Urine Appearance Urine pH Ur Specific [place] Urine Protein Urine Glucose (UA) Urine Ketones Urine Blood Urine Nitrate Urine Bilirubin Urine Urobilinogen Ur Leukocyte Esterase Ur Squamous Epith Cells Ur Renal Epithelial Cell Amorphous Sediment Urine Opiates Screen Urine Methadone Screen Ur Barbituates Screen Ur Phencyclidine Scrn Ur Amphetamines Screen U Benzodiazepines Scrn Urine Cocaine Screen U Marijuana (THC) Screen 05/29/18 05/29/18 05/29/18 15:33 15:33 15:33 WBC RBC Hgb Hct MCV MCH MCHC RDW Plt Count MPV Neut % (Auto) Lymph % (Auto) [place] % (Auto) Eos % (Auto) Baso % (Auto) Neut # (Auto) Lymph # (Auto) [place] # (Auto) Eos # (Auto) Baso # (Auto) PT 9.9 INR 0.96 D-Dimer 234 Specimen Source O2 % ABG pH ABG pCO2 ABG pO2 ABG HCO3 ABG Total CO2 ABG O2 Saturation ABG Base Excess Gerber Test Sodium Potassium Chloride Carbon Dioxide Anion Gap BUN Creatinine Estimated Creat Clear Estimated GFR Est GFR ( Amer) Glucose POC Glucose Hemoglobin A1c Calcium Phosphorus Magnesium Total Bilirubin AST ALT Alkaline Phosphatase Total Creatine Kinase 30 CK-MB (CK-2) < 0.5 CK-MB (CK-2) Rel Index 1.7 Troponin I < 0.02 B-Natriuretic Peptide 6 Total Protein Albumin Globulin Albumin/Globulin Ratio Lipase Serum HCG, Qual Urine Color Urine Appearance Urine pH Ur Specific [place] Urine Protein Urine Glucose (UA) Urine Ketones Urine Blood Urine Nitrate Urine Bilirubin Urine Urobilinogen Ur Leukocyte Esterase Ur Squamous Epith Cells Ur Renal Epithelial Cell Amorphous Sediment Urine Opiates Screen Urine Methadone Screen Ur Barbituates Screen Ur Phencyclidine Scrn Ur Amphetamines Screen U Benzodiazepines Scrn Urine Cocaine Screen U Marijuana (THC) Screen 05/29/18 15:33 WBC 8.3 RBC 3.78 L Hgb 10.5 L Hct 32.9 L MCV 87.1 MCH 27.8 MCHC 31.9 RDW 14.1 Plt Count 430 H MPV 6.7 L Neut % (Auto) 73.0 Lymph % (Auto) 17.8 [place] % (Auto) 7.3 Eos % (Auto) 1.6 Baso % (Auto) 0.4 Neut # (Auto) 6.0 Lymph # (Auto) 1.5 [place] # (Auto) 0.6 Eos # (Auto) 0.1 Baso # (Auto) 0.0 PT INR D-Dimer Specimen Source O2 % ABG pH ABG pCO2 ABG pO2 ABG HCO3 ABG Total CO2 ABG O2 Saturation ABG Base Excess Gerber Test Sodium Potassium Chloride Carbon Dioxide Anion Gap BUN Creatinine Estimated Creat Clear Estimated GFR Est GFR ( Amer) Glucose POC Glucose Hemoglobin A1c Calcium Phosphorus Magnesium Total Bilirubin AST ALT Alkaline Phosphatase Total Creatine Kinase CK-MB (CK-2) CK-MB (CK-2) Rel Index Troponin I B-Natriuretic Peptide Total Protein Albumin Globulin Albumin/Globulin Ratio Lipase Serum HCG, Qual Urine Color Urine Appearance Urine pH Ur Specific [place] Urine Protein Urine Glucose (UA) Urine Ketones Urine Blood Urine Nitrate Urine Bilirubin Urine Urobilinogen Ur Leukocyte Esterase Ur Squamous Epith Cells Ur Renal Epithelial Cell Amorphous Sediment Urine Opiates Screen Urine Methadone Screen Ur Barbituates Screen Ur Phencyclidine Scrn Ur Amphetamines Screen U Benzodiazepines Scrn Urine Cocaine Screen U Marijuana (THC) Screen DS: Diagnosis - Discharge Diagnosis (1) Hypokalemia Status: Acute (2) Hypomagnesemia Status: Acute (3) Sinus tachycardia Status: Acute Discharge Medications - Medications for Discharge Home Medication List at Discharge: No Action Ondansetron [Zofran 4mg ODT] 4 mg PO Q6HP PRN PRN Reason: n/v Omeprazole [Omeprazole 20mg Capsule] 40 mg PO BID Ubidecarenone [Coenzyme Q10] 10 mg PO DAILY Scopolamine [Transderm-Scop 1.5mg/72hrs patch] 1 patch TOPICAL DAILY Prochlorperazine Maleate [Compazine] 5 mg PO DAILY Gabapentin [Gabapentin 100mg Cap] 300 mg PO BID Amitriptyline HCl [Elavil 50mg tablet] 75 mg PO DAILY Buspirone HCl 15 mg PO Q8 LORazepam [Ativan] 1 mg PO BID diazePAM [diazePAM 5mg Tablet] 5 mg PO DAILY ALPRAZolam [Alprazolam 0.25mg Tab] 0.25 mg PO BID diphenhydrAMINE HCl [Sleep Aid] 25 mg PO DAILY MDD 50 MG Promethazine HCl [Phenergan 25mg tab] 25 mg PO QID Zinc 50 mg PO DAILY Sucralfate [Sucralfate 1gm Tab] 1 tab PO BID Hydrocodone/Acetaminophen [Hydrocodone-Acetamin 5-325 mg] 1 each PO Q4HP PRN PRN Reason: pain Escitalopram Oxalate 10 mg PO DAILY Hyoscyamine Sulfate 0.125 mg SL Q4H Sennosides/Docusate Sodium [Docusate Sodium-Sennosides Tab] 1 each PO DAILY Melatonin 15 mg PO DAILY Disposition Disposition: Home, Self-Care
--- NOTE | 2018-05-30 10:34 | Progress Note ---
Internal Medicine - PN: Subj Interval history: Patient seen by Dr. Hines this morning. As her workup showed no concern for cardiac etiology for chest pain, potassium had normalized, and she remained hemodynamically stable. Plan was to discharge her home. She has worsening complaint of pain that is migratory. Initially was complaining of substernal pain that was the same as the pain she came in with. Requested morphine or Dilaudid for that pain. Decision was made to give her a GI cocktail. Prior to taking the GI cocktail that pain resolved and she is now complaining of pain in bilateral hips and legs with difficulty ambulating to the bathroom. Exam essentially normal other than emotional tearful patient with complaint of leg pain. Added CK to morning labs from blood already obtained. Was negative with no change since admission. Additionally, review of lab work from this morning showed mild hypocalcemia. Otherwise normal. After return of labs, went back to patient room to inform patient that there is no medical reason to continue to keep her admitted. Inform her to this time her symptoms are beyond the capability of our facility. She proceeded to be very frustrated that we are discharging her home without the ability to walk which is a new development since learning she was getting discharge this morning. Inf ormed her there is nothing else I could do to help her. Informed her I was willing to give her some medication for pain. Initially she was receptive but then became completely unreceptive to any input from physician. Showed behavior of splitting as I was unable to help her with her current symptoms. Family began requesting as well for MRI of back as well as testing for diseases such as West Nile virus, as that could explain her symptoms. Inform the family again that these were not medically indicated and there is nothing more we could do for her. Patient then proceeded to fire me as her physician. Exam Vital signs and Labs for Last 24 Hours: Temp Pulse Resp BP Pulse Ox 98.5 F 108 H 16 103/59 98 05/30/18 08:00 05/30/18 08:00 05/30/18 08:00 05/30/18 08:00 05/30/18 08:00 Laboratory Results - last 24 hr 05/29/18 15:33: WBC 8.3, RBC 3.78 L, Hgb 10.5 L, Hct 32.9 L, MCV 87.1, MCH 27.8, MCHC 31.9, RDW 14.1, Plt Count 430 H, MPV 6.7 L, Neut % (Auto) 73.0, Lymph % (Auto) 17.8, [place] % (Auto) 7.3, Eos % (Auto) 1.6, Baso % (Auto) 0.4, Neut # (Auto) 6.0, Lymph # (Auto) 1.5, [place] # (Auto) 0.6, Eos # (Auto) 0.1, Baso # (Auto) 0.0 05/29/18 15:33: PT 9.9, INR 0.96, D-Dimer 234 05/29/18 15:33: Total Creatine Kinase 30, CK-MB (CK-2) < 0.5, CK-MB (CK-2) Rel Index 1.7, Troponin I < 0.02 05/29/18 15:33: B-Natriuretic Peptide 6 05/29/18 15:33: Sodium 145, Potassium 2.2 L*, Chloride 107, Carbon Dioxide 21, Anion Gap 19.2 H, BUN 4 L, Creatinine 1.02, Estimated Creat Clear 97, Estimated GFR 66, Est GFR ( Amer) 79, Glucose 234 H, Calcium 8.3 L, Total Bilirubin 0.1 L, AST 13 L, ALT 23, Alkaline Phosphatase 115, Total Protein 7.3, Albumin 3.6, Globulin 3.7 H, Albumin/Globulin Ratio 1.0 L, Lipase 74 05/29/18 15:33: Serum HCG, Qual Negative 05/29/18 15:33: Hemoglobin A1c 5.0 05/29/18 15:36: Specimen Source Right brachial, O2 % 28%, ABG pH 7.36, ABG pCO2 37.3, ABG pO2 174.0 H, ABG HCO3 20.5 L, ABG Total CO2 21.6 L, ABG O2 Saturation 99, ABG Base Excess -5.0 L, Gerber Test Non applicable 05/29/18 17:16: Sodium 145, Potassium 2.7 L* D, Chloride 110 H, Carbon Dioxide 25, Anion Gap 12.7, BUN 4 L, Creatinine 0.73 D, Estimated Creat Clear 136, Estimated GFR 96, Est GFR ( Amer) 117 D, Glucose 107 H D, Calcium 7.8 L 05/29/18 17:16: Magnesium 1.4 05/29/18 17:22: Urine Color Yellow, Urine Appearance Clear, Urine pH 6.0, Ur Specific [place] <= 1.005, Urine Protein Negative, Urine Glucose (UA) Negative, Urine Ketones Negative, Urine Blood Negative, Urine Nitrate Negative, Urine Bilirubin Negative, Urine Urobilinogen 0.2, Ur Leukocyte Esterase Negative, Ur Squamous Epith Cells 3-5, Ur Renal Epithelial Cell Occasional, Amorphous [place] ent Trace 05/29/18 17:22: Urine Opiates Screen Positive H, Urine Methadone Screen Negative, Ur Barbituates Screen Negative, Ur Phencyclidine Scrn Negative, Ur Amphetamines Screen Negative, U Benzodiazepines Scrn Positive H, Urine Cocaine Screen Negative, U Marijuana (THC) Screen Negative 05/29/18 20:38: Sodium 145, Potassium 4.0 D, Chloride 110 H, Carbon Dioxide 27, Anion Gap 12.0, BUN 4 L, Creatinine 0.78, Estimated Creat Clear 126, Estimated G FR 89, Est GFR ( Amer) 108, Glucose 99, Calcium 7.9 L, Troponin I < 0.02 05/30/18 05:24: WBC 5.8 D, RBC 3.48 L, Hgb 9.7 L, Hct 30.9 L, MCV 88.8, MCH 27.9, MCHC 31.4 L, RDW 14.0, Plt Count 278 D, MPV 6.5 L, Neut % (Auto) 79.6, Lymph % (Auto) 14.4, [place] % (Auto) 3.8, Eos % (Auto) 1.9, Baso % (Auto) 0.3, Neut # (Auto) 4.6, Lymph # (Auto) 0.8, [place] # (Auto) 0.2, Eos # (Auto) 0.1, Baso # (Auto) 0.0 05/30/18 05:24: Sodium 146 H, Potassium 4.0, Chloride 111 H, Carbon Dioxide 28, Anion Gap 11.0, BUN 3 L, Creatinine 0.73, Estimated Creat Clear 135, Estimated GFR 96, Est GFR ( Amer) 117, Glucose 94, Calcium 7.7 L, Phosphorus 3.7, Magnesium 2.0 D, Total Bilirubin 0.2, AST 23 D, ALT 28, Alkaline Phosphatase 106, Total Protein 6.6, Albumin 3.3 L, Globulin 3.3 H, Albumin/Globulin Ratio 1.0 L 05/30/18 05:36: POC Glucose 79 I & O for Last 24 hours: Intake & Output 05/27/18 05/28/18 05/29/18 05/30/18 23:59 23:59 23:59 23:59 Intake Total 800 / 800 1427 / 1427 Output Total 700 / 700 Balance 800 / 800 727 / 727 Weight 73.198 kg - Routine Psychiatric Exam Comments: Labile mood, very agitated, splitting behavior after discussion. Assessment and Plan (1) Hypokalemia Current visit: Yes Status: Acute Category: Medical Code(s): E87.6 - Hypokalemia (2) Hypomagnesemia Current visit: Yes Status: Acute Category: Medical Code(s): E83.42 - Hypomagnesemia (3) Sinus tachycardia Current visit: Yes Status: Acute Category: Medical Code(s): R00.0 - Tachycardia, unspecified
[2018-05-31 15:26] LABS: Insulin Level Total 108.5 uIU/mL (2.6-24.9)
== END 2018-05-30 12:45 | disposition home or self-care (01) ==
LOC: 2ND 15:22 → ER 15:22 → 2ND 18:40
PROVIDERS: ADMIT Internal Medicine Adolescent Medicine; ATTEND Family Medicine

== ENCOUNTER 2018-06-17 18:33 | Observation (INO) ==
[2018-06-17 19:08] LABS: Microscopic, Urine URINE MICROSCOPIC (MICROSCOPIC)
[2018-06-17 19:12] LABS: Appearance,Urine CLEAR (Clear); Bilirubin,Urine Negative (Negative); Blood, Urine TRACE-L (Negative); Color,Urine YELLOW (Yellow); Glucose,Urine (UA) Negative (Negative); Ketones,Urine Negative (Negative); Leukocyte Esterase,Urine Negative (Negative); PH,Urine 7.5 (5.0-8.5); Protein,Urine Negative (Negative); Urobilinogen,Urine 0.2 EU/dl (0.2)
[2018-06-17 19:18] LABS: Basophils % 0.4 % (0.1-2.0); Eosinophils # 0.1 K/mm3 (0.0-0.4); Eosinophils % 1.2 % (0.1-12.0); Hematocrit 33.1 % (37.0-47.0); Hemoglobin 10.7 g/dL (12.2-16.2); Lymphocytes # 1.8 K/mm3 (0.7-4.5); Lymphocytes % 18.7 K/mm3 (10-50); Mean Corpuscular HGB Conc 32.4 g/dL (31.8-35.4); Mean Corpuscular Hemoglobin 27.9 pg (27.0-31.2); Mean Platelet Volume 6.6 fl (7.4-10.4); Monocytes # 0.7 K/mm3 (0.1-1.0); Monocytes % 6.7 % (1.7-9.3); Neutrophils % 72.9 % (37.0-80.0); Platelet Count 300 K/mm3 (142-424); Red Blood Count 3.85 M/mm3 (4.20-5.40); Red Cell Distribution Width 13.7 % (11.5-17.5); White Blood Count 9.6 K/mm3 (4.8-10.8)
[2018-06-17 19:26] LABS: Bacteria,Urine Trace /lpf; RBC,Urine Occasional #/hpf (0-3)
[2018-06-17 20:04] LABS: Anion Gap 16.2 mEq/L (5-15); Blood Urea Nitrogen 8 mg/dL (7-18); Calcium 8.3 mg/dL (8.5-10.1); Carbon Dioxide 26 mmol/L (21.0-32.0); Chloride 106 mmol/L (98-107); Glucose 131 mg/dL (74-106); Sodium 146 mmol/L (136-145)
[2018-06-17 20:12] LABS: Potassium 2.2 mmoL/L (3.5-5.1)
[2018-06-17 20:14] LABS: Amylase 43 U/L (25-125); Lipase 74 u/L (73-393)
--- NOTE | 2018-06-17 20:22 | Emergency Department Note ---
ED Disposition Clinical Impression: Hypokalemia, Gastroenteritis Disposition: Admitted as Observation Condition on Discharge: Good Instructions: DI for Diarrhea and Traveler's Diarrhea -- Adult, DI for Diarrhea and Traveler's Diarrhea -- Child, DI for Nausea -- Adult, DI for Nausea -- Child Referrals: Sabine Juan APRN [Primary Care Provider] - - Critical Care Critical Care Time: No Attestation: On 06/17/18, the high probability of a clinically significant, sudden or life threatening deterioration of the following system(s) required my full and direct attention, intervention and personal management. The time I documented below is in addition to time spent performing reported procedures but includes the following listed in this critical care notation. Medical Decision Making - Medical Records Medical records reviewed: Yes: I reviewed the patient's medical records. - Federico Inquiry Pt receiving controlled substance: No Vital Signs: 06/17/18 18:53 06/17/18 21:04 Temperature 98.0 F Temperature Source Oral Pulse Rate [Left Radial] 110 H 81 Respiratory Rate 20 20 Blood Pressure [Right Arm] 120/80 110/65 Blood Pressure Mean [Right Arm] 93 80 Blood Pressure Source [Right Arm] Automatic Cuff Automatic Cuff Blood Pressure Position [Right Arm] Sitting Sitting 02 Sat by Pulse Oximetry 99 100 Oxygen Delivery Method Room Air Room Air - Lab Data Lab results reviewed: Yes: I reviewed the patient's lab results. Lab Results 06/17/18 19:03: Urine Color Yellow, Urine Appearance Clear, Urine pH 7.5, Ur Specific [place] 1.020, Urine Protein Negative, Urine Glucose (UA) Negative, Urine Ketones Negative, Urine Blood Trace-l, Urine Nitrate Negative, Urine Bilirubin Negative, Urine Urobilinogen 0.2, Ur Leukocyte Esterase Negative, Urine RBC Occasional, Urine WBC 3-5, Ur Squamous Epith Cells 10-20, Urine Bacteria Trace 06/17/18 19:03: Urine HCG, Qual Negative 06/17/18 19:10: Amylase 43, Lipase 74 06/17/18 19:10: WBC 9.6, RBC 3.85 L, Hgb 10.7 L, Hct 33.1 L, MCV 86.0, MCH 27.9, MCHC 32.4, RDW 13.7, Plt Count 300, MPV 6.6 L, Neut % (Auto) 72.9, Lymph % (Auto) 18.7, [place] % (Auto) 6.7, Eos % (Auto) 1.2, Baso % (Auto) 0.4, Neut # (Auto) 7.0, Lymph # (Auto) 1.8, [place] # (Auto) 0.7, Eos # (Auto) 0.1, Baso # (Auto) 0.0 06/17/18 19:40: Sodium 146 H, Potassium 2.2 L*, Chloride 106, Carbon Dioxide 26, Anion Gap 16.2 H, BUN 8, Creatinine 0.93, Estimated Creat Clear 105, Estimated GFR 73, Est GFR ( Amer) 88, Glucose 131 H, Calcium 8.3 L, Troponin I < 0.02 06/17/18 19:40: Magnesium 1.6 Result diagrams: 06/17/18 19:10 06/17/18 19:40 Orders (Tests/Meds): ED MEDICATIONS Generic Name Dose Route Start Last Admin Trade Name Freq PRN Reason Stop Dose Admin Potassium Chloride/Water 100 mls @ 50 mls/hr 06/17/18 20:20 06/17/18 21:03 Potassium Chloride 20meq/100ml Ivpb IV 06/17/18 22:19 50 mls/hr ONCE ONE Administration Discontinued Medications Generic Name Dose Route Start Last Admin Trade Name Freq PRN Reason Stop Dose Admin Sodium Chloride 1,000 mls @ 999 mls/hr 06/17/18 19:00 06/17/18 19:29 Sod Chlor 0.9% 1000ml Bag IV 06/17/18 20:00 999 mls/hr .Q1H1M JOSSE Administration Ketorolac Tromethamine 30 mg 06/17/18 18:58 06/17/18 19:29 Toradol 30mg/Ml Vial IV 06/17/18 18:59 30 mg ONCE ONE Administration Ondansetron HCl 4 mg 06/17/18 18:58 06/17/18 19:29 Zofran 4mg/2ml Vial IV 06/17/18 18:59 4 mg ONCE ONE Administration Promethazine HCl 25 mg 06/17/18 20:19 06/17/18 20:32 Phenergan 25mg/Ml 1ml Vial IV 06/17/18 20:20 25 mg ONCE ONE Administration Sodium Chloride 25 ml 06/17/18 20:19 06/17/18 20:32 Sod Chlor 0.9% 25ml Bag IV 06/17/18 20:20 25 ml ONCE ONE Administration ORDERS Category Date Time Status ECG Request by /Nse Stat Y 06/17/18 19:31 Ordered - CT Data CT Scan: Abdomen, Pelvis Time Received: 21:[address] Reviewed: Yes: I have viewed the radiologist's interpretation Preliminary Findings: Normal/NAD - ECG Data Tracing #1 Normal Sinus Rhythm: Yes Ischemic changes: non-specific ST-T wave changes ECG compared to prior tracings: there are no significant changes Tracing #2 Normal Sinus Rhythm: Yes Ischemic changes: non-specific ST-T wave changes Nausea/Vomiting/Diarrhea HPI - General Chief complaint: Nausea/Vomiting/Diarrhea Stated complaint: Stomach pains, vomiting, heart racing Time Seen by Provider: 06/17/18 20:19 Mode of Arrival: Ambulatory Source of Information: Patient, Medical Record Limitations: No Limitations Description of Symptoms (Recalled from ER Triage Doc. by RN): Pt states that she is feeling nauseated since this morning, she states that she took zofran at home and it did not help, she feels discomfort and states this happens when her potassium so she took extra potassium. States she has been around people with a virus - History of Present Illness HPI Narrative: pt with vomiting and nausea with hx of exposure to gi illness and has hx of low k MD complaint: nausea, vomiting Onset (ago): day(s) Associated Abdominal Pain: Yes Location of pain: epigastric Severity: moderate Consistency: constant Context: sick contacts Associated symptoms: denies other symptoms - Related Data Home Medications Medication Instructions Recorded Confirmed Omeprazole [Omeprazole 20mg 40 mg PO BID 12/07/17 05/29/18 Capsule] Ondansetron [Zofran 4mg ODT] 4 mg PO Q6HP PRN 12/07/17 05/29/18 Promethazine HCl [Phenergan 25mg 25 mg PO QID 12/07/17 05/29/18 tab] Amitriptyline HCl [Elavil 50mg 75 mg PO DAILY 02/17/18 05/29/18 tablet] Gabapentin [Gabapentin 100mg Cap] 300 mg PO BID 02/17/18 05/29/18 Prochlorperazine Maleate 5 mg PO DAILY 02/17/18 05/29/18 [Compazine] Scopolamine [Transderm-Scop 1 patch TOPICAL DAILY 02/17/18 05/29/18 1.5mg/72hrs patch] Ubidecarenone [Coenzyme Q10] 10 mg PO DAILY 02/17/18 05/29/18 Zinc 50 mg PO DAILY 02/17/18 05/29/18 Hydrocodone/Acetaminophen 1 each PO Q4HP PRN 04/09/18 05/29/18 [Hydrocodone-Acetamin 5-325 mg] Sucralfate [Sucralfate 1gm 1 tab PO BID 04/09/18 05/29/18 Tab] ALPRAZolam [Alprazolam 0.25mg 0.25 mg PO BID 05/29/18 05/29/18 Tab] Buspirone HCl 15 mg PO Q8 05/29/18 05/29/18 Escitalopram Oxalate 10 mg PO DAILY 05/29/18 05/29/18 Hyoscyamine Sulfate 0.125 mg SL Q4H 05/29/18 05/29/18 LORazepam [Ativan] 1 mg PO BID 05/29/18 05/29/18 Melatonin 15 mg PO DAILY 05/29/18 05/29/18 Sennosides/Docusate Sodium 1 each PO DAILY 05/29/18 05/29/18 [Docusate Sodium-Sennosides Tab] diazePAM [diazePAM 5mg Tablet] 5 mg PO DAILY 05/29/18 05/29/18 diphenhydrAMINE HCl [Sleep Aid] 25 mg PO DAILY MDD 50 MG 05/29/18 05/29/18 Previous Rx's Medication Instructions Recorded Magnesium Oxide 420 mg PO DAILY 30 Days #30 tablet 06/11/18 Potassium Chloride [K-Tab ER 10 10 meq PO DAILY 7 Days #7 tab 06/11/18 mEq] Allergies Allergy/AdvReac Type Severity Reaction Status Date / Time coconut Allergy Unknown Anaphylaxis Verified 05/30/18 09:08 latex [LATEX] Allergy Unknown Unknown Verified 05/30/18 09:08 allergy reaction Pertussis Vaccines Allergy Unknown Unknown Verified 05/30/18 09:08 [PERTUSSIS VACCINES] allergy reaction pineapple [PINEAPPLE] Allergy Unknown Unknown Verified 05/30/18 09:08 allergy reaction Sulfa (Sulfonamide Allergy Unknown Unknown Verified 05/30/18 09:08 Antibiotics) allergy [SULFA (SULFONAMIDE reaction ANTIBIOTICS)] [facility] History I have reviewed the patient's past medical history: Yes Medical History: Denies:: Cancer, Diabetes Mellitus Type 1, Diabetes Mellitus Type 2, MRSA Other Surgeries: Yes: Cholecystectomy Amputation: No Fractures: No - Social History Smoking Status: Never smoker Alcohol Intake: never Alcohol Intake Frequency:: holidays/special occasions only Occupational Status: student Housing: house Household Members: spouse - Psychiatric History Expresses thoughts of harming self/others: None Suicide Plan Description: No Plan Family Hx:: Diabetes, Hypertension ROS Obtained: Yes All systems reviewed & no additional complaints - Constitutional Constitutional: Denies fever(s) - Eyes Eyes: Denies change in vision - ENT Ears, Nose, Mouth, and Throat: Denies sore throat - Cardiovascular Cardiovascular: Denies chest pain - Respiratory Respiratory: No cough - Gastrointestinal Gastrointestingal: Reports: abdominal pain, nausea, vomiting. Denies: diarrhea - Genitourinary Female Genitourinary: Denies hematuria - Musculoskeletal Musculoskeletal: Denies joint pain, Denies joint swelling - Integumentary/Breasts Skin/Breast: Denies rash - Neurologic Neurologic: Reports as per HPI, Reports tingling/numbness/burning sensations, Denies seizure-like activity Physical Exam - General General appearance: alert, in no apparent distress - Head Head exam: normocephalic - Eye Eye exam: Present: PERRL, EOMI - ENT ENT exam: Present: mucous membranes dry - Neck Neck exam: Present: trachea midline - Respiratory Respiratory exam: Absent: respiratory distress - Cardiovascular Cardiovascular exam: Present: regular rate, systolic murmur - Abdominal Exam Abdominal exam: Present: soft Abdominal tenderness: Present: epigastrium, moderate - Extremities Exam Extremities exam: Present: full ROM - Neurological Exam Neurological exam: Present: alert, oriented X3, CN II-XII intact - Psychiatric Psychiatric exam: Present: normal affect - Skin Skin exam: Absent: rash
[2018-06-18 04:07] LABS: Basophils % 0.5 % (0.1-2.0); Eosinophils % 0.4 % (0.1-12.0); Lymphocytes # 1.3 K/mm3 (0.7-4.5); Lymphocytes % 16.3 K/mm3 (10-50); Mean Corpuscular HGB Conc 35.5 g/dL (31.8-35.4); Mean Corpuscular Hemoglobin 30.7 pg (27.0-31.2); Mean Corpuscular Volume 86.4 fl (81-99); Mean Platelet Volume 7.5 fl (7.4-10.4); Monocytes # 0.5 K/mm3 (0.1-1.0); Monocytes % 6.7 % (1.7-9.3); Neutrophils # 6.1 K/mm3 (1.8-7.8); Neutrophils % 76.1 % (37.0-80.0); Platelet Count 232 K/mm3 (142-424); Red Cell Distribution Width 13.8 % (11.5-17.5); White Blood Count 8.1 K/mm3 (4.8-10.8)
[2018-06-18 04:08] LABS: Hematocrit 26.8 % (37.0-47.0); Hemoglobin 9.5 g/dL (12.2-16.2)
[2018-06-18 04:21] LABS: Blood Urea Nitrogen 6 mg/dL (7-18); Calcium 8.4 mg/dL (8.5-10.1); Carbon Dioxide 30 mmol/L (21.0-32.0); Chloride 111 mmol/L (98-107); Glucose 114 mg/dL (74-106)
[2018-06-18 04:30] LABS: Anion Gap 9.9 mEq/L (5-15); Potassium 3.9 mmoL/L (3.5-5.1); Sodium 147 mmol/L (136-145)
== END 2018-06-18 08:26 | disposition home or self-care (01) ==
LOC: 2ND 18:33 → ER 18:33 → 2ND 22:32
PROVIDERS: ADMIT Emergency Medicine; ATTEND Family Medicine

== ENCOUNTER → 2018-08-26 09:32 | Outpatient (CLI) | payer OTHER, SELFPAY ==
--- NOTE | 2018-08-26 09:36 | NVE_ITS ---
Venous Exam Indications: 729.5 Pain in limb. IMPRESSIONS 1. There is no evidence of significant reflux. 2. Study suggests acute superficial vein thrombosis involving the superficial veins of the right upper extremity History: Right upper extremity pain. Risk factors: Family history of deep vein thrombosis. Patient states Wednesday night 08/21/18 she began having pain in right axillary region. By Wednesday afternoon the pain had spread to the forearm. Right upper extremity venous duplex. Doppler flow study including spectral analysis, color and dang scale imaging. Location: Vascular laboratory. Patient status: Outpatient. CRITICAL FINDINGS - Reported to: Carmen Juan - Read back and verified. - 08/26/18 - 10:35 - RUE positive for SVT in the distal cephalic vein Tables: Venous flow and imaging: + + + + Location Overall Flow properties + + + + Right internal jugular Normal phasicity; spontaneous; compressible + + + + Right subclavian Normal phasicity; spontaneous; normal augmentation; compressible + + + + Right axillary Normal phasicity; spontaneous; normal augmentation; compressible + + + + Right brachial Normal phasicity; spontaneous; normal augmentation; compressible + + + + Right cephalic Totally occluded Partially compressible + + + + Right basilic Normal phasicity; spontaneous ; normal augmentation; compressible + + + + Right radial Compressible + + + + Right ulnar Compressible + + + + (Report amended ) Electronically signed by: Gerber Blas [id number]
== END ==
PROVIDERS: PCP Nurse Practitioner; Visit Provider Nurse Practitioner
DX: M79.601 Pain in right arm (principal); T14.8XXA Other injury of unspecified body region, initial encounter
CPT/HCPCS: 93971

== ENCOUNTER → 2019-09-18 12:02 | Outpatient (POV) | payer OTHER, SELFPAY ==
[2019-09-18 12:11] VITALS: BP 129/85; PULSE 80; RESP 18; O2SAT 99; BMI 22.0
--- NOTE | 2019-09-18 12:33 | HMH.PMCON ---
Assessment and Plan (1) Spondylosis Current visit: Yes Status: Chronic Category: Medical Code(s): M47.9 - Spondylosis, unspecified (2) Facet arthropathy Current visit: Yes Status: Chronic Category: Medical Code(s): M47.819 - Spondylosis without myelopathy or radiculopathy, site unspecified - Assessment and plan all Dx Assessment and Plan for all problems:: We will schedule medial branch block at T5-T6 T6-T7 T7-T8 bilaterally to see if this is beneficial for the patient if it is we will move forward with an RFA she is a neurotomy candidate given the efficacy of the neurotomy in the past. She does not have any active infections she is tried and failed other conservative measures. She is had pain for over a year and is not on any anticoagulation therapy. Dr. Rosas has reviewed this note and agrees with this plan of care. This note was dictated using voice recognition software and may contain errors or omissions HPI - Data of Consult Consult date: 09/18/19 Requesting Physician: Odalis Lin APRN Primary Care Provider: Sabine Juan - Consult Narrative Reason for consult: Back pain History of present illness: Ms. Kovacs is a 29 year old female who presents today for consultation in regards to her mid back pain. Patient has had back pain for many years secondary to scoliosis and spondylosis. Patient was seen in the [place] pain management clinic for a medial branch block and RFA of her thoracic spine. Patient was seen back in 2008 and got 5 years relief after her RFA. 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 Patient is unable to take anti-inflammatories. Patient is tried and failed other modalities of treatment. She is interested in repeating her medial branches and potentially an RFA. She has mid back nonradiating pain. CC: Odalis Lin APRN [facility] History I have reviewed the patient's past medical history: Yes Medical History: Reports:: Arrhythmia Denies:: Cancer, Diabetes Mellitus Type 1, Diabetes Mellitus Type 2, MRSA *Have you ever received a pneumonia vaccine?: Yes *Have you received a flu vaccine this season?: Yes Laterality Cases: Bilateral: Tonsillectomy Other Surgeries: Yes: Cholecystectomy Amputation: No Fractures: No - *Social History Educational Level: Completed College Smoking Status: Never smoker Alcohol Intake: never Alcohol Intake Frequency:: holidays/special occasions only *Occupational Status:: other Housing: house Household Members: spouse *Travel in the last 8 weeks: None Family Hx:: Diabetes, Hypertension Review of Systems - Review of Systems ROS General: no recent weight change, no fever, no sleep disturbances Respiratory: no cough, no shortness of air, no recurring pulmonary infections Cardiovascular/Peripheral Vascular: No chest pain, No palpitations, no edema, no shortness of breath. Gastrointestinal: no new onset incontinence, normal bowel movements reported Genitourinary: no new onset incontinence Musculoskeletal: Thoracic back pain Psychiatric: normal mood/ affect Neurological: [denies new onset weakness in extremities], [denies new onset balance issues] Meds Home Medications Medication Instructions Recorded Confirmed Type Omeprazole [Omeprazole 20mg 40 mg PO BID 12/07/17 10/16/18 History Capsule] Ondansetron [Zofran 4mg ODT] 4 mg PO Q6HP PRN 12/07/17 10/16/18 History Promethazine HCl [Phenergan 25mg 25 mg PO QID PRN 12/07/17 10/16/18 History tab] Gabapentin [Gabapentin 100mg Cap] 300 mg PO BID 02/17/18 10/16/18 History Prochlorperazine Maleate 5 mg PO DAILY 02/17/18 10/16/18 History [Compazine] Scopolamine [Transderm-Scop 1 patch TOPICAL DAILY 02/17/18 10/16/18 History 1.5mg/72hrs patch] Ubidecarenone [Coenzyme Q10] 10 mg PO DAILY 02/17/18 10/16/18 History Sucralfate [Sucralfate 1gm 1 tab PO BID 04/09/18 10/16/18 History Tab] Melatonin 15 mg PO DAILY 05/29/18 10/16/18 His
== END ==
PROVIDERS: PCP Nurse Practitioner; Visit Provider Clinical Nurse Specialist Family Health
DX: M47.9 Spondylosis, unspecified (principal); M47.819 Spondylosis without myelopathy or radiculopathy, site unspecified
CPT/HCPCS: 99202

== ENCOUNTER → 2019-11-29 15:43 | Outpatient (CLI) | payer OTHER, SELFPAY ==
--- NOTE | 2019-11-29 15:51 | CT_ITS ---
PROCEDURE: CT ABDOMEN PELVIS WO CON CLINICAL INDICATION: ABD PAIN, Right lower quadrant radiating into the right upper quadrant with fever COMPARISON: ABDPELWO CT abdomen pelvis wo con from 06/17/2018 TECHNIQUE: Axial images obtained with sagittal and coronal reformats. All CT scans at the facility use one or more dose reduction, viz: automated exposure control, ma/kV adjustment per patient size (including targeted exams where dose is matched to indication, i.e. head), or iterative reconstruction technique. FINDINGS: LOWER THORAX: No acute finding ABDOMEN & PELVIS: The liver, spleen, adrenal glands, pancreas, and kidneys have an unremarkable unenhanced appearance. There are post cholecystectomy changes. No evidence of appendicitis.. The there is a mild amount of retained colonic feces. No evidence of diverticulitis, intestinal obstruction, or free air. Mild lumbar curvature convex right. Scattered small nodes are present in the inguinal region. IMPRESSION: No acute finding Dictated by: Gerber Blas MD 11/29/2019 17:19 Electronically signed by Gerber Blas MD in [place] 11/29/2019 17:19
== END ==
PROVIDERS: PCP Nurse Practitioner; Visit Provider Nurse Practitioner
DX: R10.84 Generalized abdominal pain (principal); R10.31 Right lower quadrant pain
CPT/HCPCS: 74176

== ENCOUNTER 2020-01-14 15:49 | Emergency (ER) | payer OTHER, SELFPAY ==
[2020-01-14 16:00] VITALS: BP 113/56; PULSE 135; RESP 20; TEMP 37.1; O2SAT 96; BMI 21.4
--- NOTE | 2020-01-14 16:11 | CT_ITS ---
Procedure: CT ABDOMEN PELVIS WO CON Patient Age:29Y CLINICAL INDICATION: RLQ, UMBILICUS PAIN, N/V COMPARISON: CT ABDOMEN PELVIS WO CON from 11/29/2019 TECHNIQUE: Axial images obtained with sagittal and coronal reformats. All CT scans at the facility use one or more dose reduction, viz: automated exposure control, ma/kV adjustment per patient size (including targeted exams where dose is matched to indication, i.e. head), or iterative reconstruction technique. FINDINGS: Lower thorax: No acute finding ABDOMEN: Liver: No masses or biliary dilatation. Gallbladder: Nondistended. No radio opaque stones.. Common duct normal Pancreas: Unremarkable no masses or peripancreatic fluid collections. Spleen: WNL Adrenals: unremarkable Kidneys/ureters: unremarkable PELVIS: Reproductive: unremarkable Bladder: Nondistended. No obvious stones or masses. Appendix: Unremarkable. No distention or periappendiceal phlegmonous change. GI tract ======= Stomach. Upper normal wall thickness. [id number] contents. Scattered radiopaque material stomach as well as at duodenum bulb. Small-bowel. Upper normal caliber and moderate of some loops at the proximal and distal small bowel. A few small air-fluid levels.. Terminal ileum normal. LARGE BOWEL.. Constipation. Prominent increased stool seen throughout the entire colon and particularly evident filling, distending low-lying cecum here at the right pelvis. Upper normal wall thickness at sigmoid and distal descending colon most likely reflects lack of distension Appendix but difficult to visualize on today's study. What question is appendix appears upper normal caliber and slightly more distended than comparison November 2019 exam on which it was easily identified. If appendicitis is significant concern clinically a follow-up study with oral and IV contrast would be recommended. On today's study the increased stool distending the cecum and lower position of the cecum makes visualization appendix more difficult today obscured by other structures at right adnexa. No free fluid or discrete inflammatory changes to raise concern in this region otherwise seen. Peritoneum: No abnormal fluid collections. No obvious inflammatory changes. No free air. Lymph nodes: No enlarged lymph nodes apparent. Vasculature: No evidence of abdominal aortic aneurysm. No retroperitoneal hemorrhage evident. Bones: No acute fracture. No lesions noted IMPRESSION: Constipation fairly pronounced.-Large amount of stool is seen throughout the colon, most pronounced solid stool right colon and cecum. Appendix is difficult to visualize on today's study; no good evidence of appendicitis. No inflammatory changes RLQ.-. Nonetheless if there should be concern clinically regarding appendicitis, and progression of RLQ symptoms, you may want to consider a follow-up CT with oral and IV contrast to further evaluate for appendix No acute findings abdomen or pelvis otherwise Dictated by: Jose De Jesus Rasmussen MD 01/15/2020 08:35 Electronically signed by Jose De Jesus Rasmussen MD in [place] 01/15/2020 08:35
[2020-01-14 16:26] LABS: Microscopic, Urine URINE MICROSCOPIC (MICROSCOPIC)
[2020-01-14 16:30] LABS: Basophils # 0.1 K/mm3 (0-0.2); Basophils % 0.9 % (0.1-2.0); Eosinophils # 0.2 K/mm3 (0.0-0.4); Eosinophils % 1.6 % (0.1-12.0); Hematocrit 34.7 % (37.0-47.0); Hemoglobin 11.6 g/dL (12.2-16.2); Lymphocytes # 1.7 K/mm3 (0.7-4.5); Lymphocytes % 13.6 % (10-50); Mean Corpuscular HGB Conc 33.3 g/dL (31.8-35.4); Mean Corpuscular Hemoglobin 30.2 pg (27.0-31.2); Mean Corpuscular Volume 90.6 fl (81-99); Mean Platelet Volume 7.4 fl (7.4-10.4); Monocytes # 0.6 K/mm3 (0.1-1.0); Monocytes % 5.3 % (1.7-9.3); Neutrophils # 9.5 K/mm3 (1.8-7.8); Neutrophils % 78.6 % (37.0-80.0); Platelet Count 272 K/mm3 (142-424); Red Blood Count 3.83 M/mm3 (4.20-5.40); Red Cell Distribution Width 13.3 % (11.5-17.5); White Blood Count 12.1 K/mm3 (4.8-10.8)
[2020-01-14 16:31] LABS: Appearance,Urine CLEAR (Clear); Bilirubin,Urine Negative (Negative); Blood, Urine 2+ (Negative); Color,Urine YELLOW (Yellow); Glucose,Urine (UA) Negative (Negative); Ketones,Urine Negative (Negative); Leukocyte Esterase,Urine Negative (Negative); Nitrate,Urine Negative (Negative); Protein,Urine Negative (Negative); Specific Gravity, Urine 1.025 (1.005-1.030); Urobilinogen,Urine 0.2 EU/dl (0.2)
[2020-01-14 16:33] LABS: Urine Pregnancy, HCG Qual. Negative (Negative)
[2020-01-14 16:39] LABS: Alanine Aminotransferase 19 U/L (12-78); Albumin Level 4.2 g/dl (3.5-5.0); Albumin/Globulin Ratio 1.4 (1.1-1.8); Alkaline Phosphatase 103 U/L (38-126); Amylase 57 U/L (30-110); Anion Gap 10.7 mEq/L (5-15); Aspartate Amino Transferase 29 U/L (14-36); Bilirubin,Total 0.1 mg/dl (0.2-1.3); Blood Urea Nitrogen 7 mg/dl (7-17); Calcium 8.9 mg/dl (8.4-10.2); Carbon Dioxide 29 mmol/L (22.0-30.0); Chloride 103 mmol/L (98-107); Creatinine Clearance Estimated 175 mL/min (50-200); Estimated Glomerular Filt Rate 148 ml/min (>60); GFR (African American) 179 ML/MIN (>60); Glucose 117 mg/dl (74-100); Lipase 17 U/L (23-300); Potassium 2.7 mmoL/L (3.5-5.1); Sodium 140 mmol/L (136-145); Total Protein,Serum 7.2 g/dl (6.3-8.2)
[2020-01-14 16:40] LABS: WBC,Urine Occasional #/hpf (0-3)
[2020-01-14 16:41] LABS: Squamous Epithelial Cell,Urine 20-50 #/hpf (0-5)
[2020-01-14 16:48] LABS: Lactic Acid 2.6 mmol/L (0.7-2.1)
--- NOTE | 2020-01-14 17:18 | HMH.EDABDPAI ---
ED Disposition Clinical Impression: Constipation Disposition: Home, Self-Care Condition on Discharge: Good Instructions: DI for Acute Abdomen Additional Instructions: Please follow-up with primary care. Referrals: Sabine Juan APRN [Primary Care Provider] - - Critical Care Critical Care Time: No Attestation: On 01/14/20, the high probability of a clinically significant, sudden or life threatening deterioration of the following system(s) required my full and direct attention, intervention and personal management. The time I documented below is in addition to time spent performing reported procedures but includes the following listed in this critical care notation. Medical Decision Making - Medical Records Medical records reviewed: Yes: I reviewed the patient's medical records. - Federico Inquiry Pt receiving controlled substance: No Vital Signs: 01/14/20 16:00 Temperature 98.8 F Temperature Source Oral Pulse Rate [Right Radial] 135 H Respiratory Rate 20 Blood Pressure [Right Arm] 113/56 L Blood Pressure Mean [Right Arm] 75 Blood Pressure Source [Right Arm] Automatic Cuff Blood Pressure Position [Right Arm] Sitting 02 Sat by Pulse Oximetry 96 Oxygen Delivery Method Room Air - Lab Data Lab results reviewed: Yes: I reviewed the patient's lab results. Lab Results 01/14/20 16:00: Urine Color Yellow, Urine Appearance Clear, Urine pH 6.0, Ur Specific [place] 1.025, Urine Protein Negative, Urine Glucose (UA) Negative, Urine Ketones Negative, Urine Blood 2+, Urine Nitrate Negative, Urine Bilirubin Negative, Urine Urobilinogen 0.2, Ur Leukocyte Esterase Negative, Urine RBC 3-5, Urine WBC Occasional, Ur Squamous Epith Cells 20-50, Urine Bacteria None 01/14/20 16:00: Urine HCG, Qual Negative 01/14/20 16:15: WBC 12.1 H, RBC 3.83 L, Hgb 11.6 L, Hct 34.7 L, MCV 90.6, MCH 30.2, MCHC 33.3, RDW 13.3, Plt Count 272, MPV 7.4, Neut % (Auto) 78.6, Lymph % (Auto) 13.6, [place] % (Auto) 5.3, Eos % (Auto) 1.6, Baso % (Auto) 0.9, Neut # (Auto) 9.5 H, Lymph # (Auto) 1.7, [place] # (Auto) 0.6, Eos # (Auto) 0.2, Baso # (Auto) 0.1 01/14/20 16:15: Sodium 140, Potassium 2.7 L*, Chloride 103, Carbon Dioxide 29, Anion Gap 10.7, BUN 7, Creatinine 0.50 L, Estimated Creat Clear 175, Estimated GFR 148, Est GFR ( Amer) 179, Glucose 117 H, Calcium 8.9, Total Bilirubin 0.1 L, AST 29, ALT 19, Alkaline Phosphatase 103, Total Protein 7.2, Albumin 4.2, Globulin 3.0, Albumin/Globulin Ratio 1.4, Amylase 57, Lipase 17 L 01/14/20 16:15: Lactate 2.6 H Result diagrams: 01/14/20 16:15 01/14/20 16:15 Orders (Tests/Meds): ED MEDICATIONS Discontinued Medications Generic Name Dose Route Start Last Admin Trade Name Freq PRN Reason Stop Dose Admin Fentanyl Citrate 75 mcg 01/14/20 17:18 01/14/20 17:29 Fentanyl 100mcg/2ml Vial IV 01/14/20 17:19 75 mcg ONCE ONE Administration Hydromorphone HCl 1 mg 01/14/20 16:11 01/14/20 16:21 Dilaudid 2mg/Ml Syringe IV 01/14/20 16:12 1 mg ONCE ONE Administration Hydromorphone HCl 1 mg 01/14/20 16:48 01/14/20 17:02 Dilaudid 2mg/Ml Syringe IV 01/14/20 16:49 1 mg ONCE ONE Administration Sodium Chloride 1,000 mls @ 999 mls/hr 01/14/20 16:12 01/14/20 16:21 Sod Chlor 0.9% 1000ml Bag IV 01/14/20 17:12 999 mls/hr .Q1H1M ONE Administration Ondansetron HCl 4 mg 01/14/20 16:11 01/14/20 16:21 Zofran 4mg/2ml Vial IV 01/14/20 16:12 4 mg ONCE ONE Administration Potassium Chloride 60 meq 01/14/20 17:16 01/14/20 17:29 Klor-Con 20meq Tablet PO 01/14/20 17:17 60 meq ONCE ONE Administration Promethazine HCl 12.5 mg 01/14/20 16:48 01/14/20 17:02 Phenergan 25mg/Ml 1ml Vial IM 01/14/20 16:49 12.5 mg ONCE ONE Administration Sodium Chloride 25 ml 01/14/20 16:48 01/14/20 17:02 Sod Chlor 0.9% 25ml Bag IV 01/14/20 16:49 25 ml ONCE ONE Administration ORDERS Category Date Time Status CT abdomen pelvis wo con Stat Cat Scan 01/14/20 16:11 Gus
[2020-01-14 17:52] VITALS: BP 122/87; PULSE 85; RESP 20; TEMP 36.8; O2SAT 98
== END 2020-01-14 17:53 | disposition home or self-care (01) ==
PROVIDERS: Emergency Provider Family Medicine; PCP Nurse Practitioner
DX: K59.00 Constipation, unspecified (principal); R10.31 Right lower quadrant pain; Z91.040 Latex allergy status; Z88.2 Allergy status to sulfonamides; Z88.7 Allergy status to serum and vaccine
CPT/HCPCS: 74176; 80053; 81001; 81025; 82150; 83605; 83690; 85025; 96365; 96375; 96376; 99283; J2405

== ENCOUNTER → 2020-01-15 18:01 | Outpatient (CLI) | payer OTHER, SELFPAY ==
[2020-01-15 18:34] LABS: Lactic Acid 2.2 mmol/L (0.7-2.1)
== END ==
PROVIDERS: Visit Provider Nurse Practitioner Family
DX: R79.89 Other specified abnormal findings of blood chemistry (principal)
CPT/HCPCS: 36415; 83605

== ENCOUNTER 2020-01-24 14:12 | Emergency (ER) | payer OTHER, SELFPAY ==
[2020-01-24 14:26] VITALS: BP 115/79; PULSE 127; RESP 18; TEMP 37.3; O2SAT 98; BMI 19.9
--- NOTE | 2020-01-24 14:36 | CT_ITS ---
PROCEDURE: CT ABDOMEN PELVIS WO CON CLINICAL INDICATION: abd pain Right lower quadrant pain, right groin COMPARISON: CT ABDOMEN PELVIS WO CON from 01/14/2020 TECHNIQUE: Axial images obtained with sagittal and coronal reformats. All CT scans at the facility use one or more dose reduction, viz: automated exposure control, ma/kV adjustment per patient size (including targeted exams where dose is matched to indication, i.e. head), or iterative reconstruction technique. FINDINGS: LOWER THORAX: No acute finding ABDOMEN & PELVIS: There are post cholecystectomy changes. The liver, spleen adrenal glands, pancreas, and kidneys have an unremarkable unenhanced appearance. No evidence of appendicitis. There is a mild amount of retained colonic feces.. No pelvic mass abnormal fluid collection or focal inflammatory change. There is a small amount of fluid in the pelvis nonspecific. No evidence intestinal obstruction or free air Mild lumbar curvature convex right IMPRESSION: No acute finding Dictated by: Gerber Blas MD 01/24/2020 16:00 Electronically signed by Gerber Blas MD in [place] 01/24/2020 16:00
--- NOTE | 2020-01-24 14:37 | XR_ITS ---
PROCEDURE: XR CHEST 2V CLINICAL HISTORY: sob Shortness of air COMPARISON: AGCHEST CT angio chest from 02/18/2018 CXR2V XR chest 2V from 08/13/2018 XR CHEST 2V from 12/03/2019 XR CHEST 2V from 12/05/2019 FINDINGS: The cardiomediastinal silhouette and pulmonary vascularity are within normal limits. The lungs are clear without infiltrates, suspicious nodules, or pleural effusions. Levoscoliosis the lower thoracic. IMPRESSION: No acute findings. Dictated by: Gerber Blas MD 01/24/2020 16:04 Electronically signed by Gerber Blas MD in [place] 01/24/2020 16:04
[2020-01-24 15:00] LABS: Microscopic, Urine URINE MICROSCOPIC (MICROSCOPIC)
[2020-01-24 15:06] LABS: Basophils # 0.1 K/mm3 (0-0.2); Basophils % 0.6 % (0.1-2.0); Eosinophils # 0.1 K/mm3 (0.0-0.4); Eosinophils % 0.6 % (0.1-12.0); Hematocrit 38.1 % (37.0-47.0); Hemoglobin 12.6 g/dL (12.2-16.2); Lymphocytes # 1.4 K/mm3 (0.7-4.5); Lymphocytes % 13.6 % (10-50); Mean Corpuscular Hemoglobin 29.7 pg (27.0-31.2); Mean Corpuscular Volume 90.2 fl (81-99); Mean Platelet Volume 7.2 fl (7.4-10.4); Monocytes # 0.5 K/mm3 (0.1-1.0); Monocytes % 4.6 % (1.7-9.3); Neutrophils # 8.1 K/mm3 (1.8-7.8); Neutrophils % 80.7 % (37.0-80.0); Platelet Count 447 K/mm3 (142-424); Red Blood Count 4.23 M/mm3 (4.20-5.40); Red Cell Distribution Width 13.3 % (11.5-17.5); White Blood Count 10.1 K/mm3 (4.8-10.8)
[2020-01-24 15:11] LABS: Appearance,Urine CLEAR (Clear); Bilirubin,Urine Negative (Negative); Blood, Urine Negative (Negative); Color,Urine YELLOW (Yellow); Glucose,Urine (UA) Negative (Negative); Ketones,Urine Negative (Negative); Leukocyte Esterase,Urine Negative (Negative); Nitrate,Urine Negative (Negative); PH,Urine 6.5 (5.0-8.5); Protein,Urine Negative (Negative); Specific Gravity, Urine <= 1.005 (1.005-1.030); Urobilinogen,Urine 0.2 EU/dl (0.2)
[2020-01-24 15:15] LABS: WBC,Urine Occasional #/hpf (0-3)
[2020-01-24 15:16] LABS: Bacteria,Urine Trace /lpf; Strep Scrn Group A (Rapid) Negative (Negative); Urine Pregnancy, HCG Qual. Negative (Negative)
[2020-01-24 15:21] LABS: Alanine Aminotransferase 19 U/L (12-78); Albumin Level 4.9 g/dl (3.5-5.0); Albumin/Globulin Ratio 1.4 (1.1-1.8); Alkaline Phosphatase 99 U/L (38-126); Anion Gap 14.3 mEq/L (5-15); Aspartate Amino Transferase 32 U/L (14-36); Bilirubin,Total 0.2 mg/dl (0.2-1.3); Blood Urea Nitrogen 7 mg/dl (7-17); Calcium 10.3 mg/dl (8.4-10.2); Carbon Dioxide 25 mmol/L (22.0-30.0); Chloride 106 mmol/L (98-107); Creatinine Clearance Estimated 163 mL/min (50-200); Estimated Glomerular Filt Rate 148 ml/min (>60); GFR (African American) 179 ML/MIN (>60); Globulin 3.4 g/dL (1.3-3.2); Glucose 108 mg/dl (74-100); Potassium 3.3 mmoL/L (3.5-5.1); Sodium 142 mmol/L (136-145); Total Protein,Serum 8.3 g/dl (6.3-8.2)
[2020-01-24 15:22] LABS: Lactic Acid 1.4 mmol/L (0.7-2.1)
[2020-01-24 15:27] LABS: C-Reactive Protein 5.1 mg/L (0-4)
--- NOTE | 2020-01-24 15:27 | PC.NURSE ---
PT RETURNED FROM RAD
[2020-01-24 15:34] LABS: Erythrocyte Sedimentation Rate 25 mm/hr (0-20)
[2020-01-24 16:03] VITALS: BP 103/63; PULSE 96
--- NOTE | 2020-01-24 16:20 | HMH.EDABDPAI ---
ED Disposition Clinical Impression: Viral syndrome, COVID-19 ruled out, Abdominal pain Disposition: Home, Self-Care Condition on Discharge: Good Instructions: DI for Acute Abdomen Additional Instructions: Please self quarantine for 14 days you are currently being tested for COVID-19 we should have the results back and less than 24 hours for some reason if you do not receive a phone call from me tomorrow we will have the result back on Wednesday and I will call you and give you the results. If your symptoms get worse as far as fever cough increasing shortness of breath please return to the emergency department immediately. Prescriptions: Promethazine HCl 50 mg PO QID 6 Days #20 tab Transmission Status: Pending to [facility] #[id number] Referrals: Sabine Juan APRN [Primary Care Provider] - - Critical Care Critical Care Time: No Attestation: On 01/24/20, the high probability of a clinically significant, sudden or life threatening deterioration of the following system(s) required my full and direct attention, intervention and personal management. The time I documented below is in addition to time spent performing reported procedures but includes the following listed in this critical care notation. Medical Decision Making - Medical Records Medical records reviewed: Yes: I reviewed the patient's medical records. - Federico Inquiry Pt receiving controlled substance: No Vital Signs: 01/24/20 14:26 01/24/20 16:03 Temperature 99.2 F Temperature Source Oral Pulse Rate [Left Radial] 127 H 96 H Respiratory Rate 18 Blood Pressure [Right Arm] 115/79 103/63 L Blood Pressure Mean [Right Arm] 91 76 Blood Pressure Position [Right Arm] Sitting Sitting 02 Sat by Pulse Oximetry 98 Oxygen Delivery Method Room Air - Lab Data Lab results reviewed: Yes: I reviewed the patient's lab results. Lab Results 01/24/20 14:30: Urine Color Yellow, Urine Appearance Clear, Urine pH 6.5, Ur Specific [place] <= 1.005, Urine Protein Negative, Urine Glucose (UA) Negative, Urine Ketones Negative, Urine Blood Negative, Urine Nitrate Negative, Urine Bilirubin Negative, Urine Urobilinogen 0.2, Ur Leukocyte Esterase Negative, Urine WBC Occasional, Ur Squamous Epith Cells 10-20, Urine Bacteria Trace 01/24/20 14:30: WBC 10.1, RBC 4.23, Hgb 12.6, Hct 38.1, MCV 90.2, MCH 29.7, MCHC 33.0, RDW 13.3, Plt Count 447 H, MPV 7.2 L, Neut % (Auto) 80.7 H, Lymph % (Auto) 13.6, [place] % (Auto) 4.6, Eos % (Auto) 0.6, Baso % (Auto) 0.6, Neut # (Auto) 8.1 H, Lymph # (Auto) 1.4, [place] # (Auto) 0.5, Eos # (Auto) 0.1, Baso # (Auto) 0.1 01/24/20 14:30: Urine HCG, Qual Negative 01/24/20 14:30: Sodium 142, Potassium 3.3 L, Chloride 106, Carbon Dioxide 25, Anion Gap 14.3, BUN 7, Creatinine 0.50 L, Estimated Creat Clear 163, Estimated GFR 148, Est GFR ( Amer) 179, Glucose 108 H, Calcium 10.3 H, Total Bilirubin 0.2, AST 32, ALT 19, Alkaline Phosphatase 99, C-Reactive Protein 5.1 H, Total Protein 8.3 H, Albumin 4.9, Globulin 3.4 H, Albumin/Globulin Ratio 1.4 01/24/20 14:30: Influenza Type A Ag Negative, Influenza Type B Ag Negative 01/24/20 14:30: Group A Strep Rapid Negative 01/24/20 14:30: ESR 25 H 01/24/20 14:30: Lactate 1.4 Result diagrams: 01/24/20 14:30 01/24/20 14:30 Orders (Tests/Meds): ED MEDICATIONS Discontinued Medications Generic Name Dose Route Start Last Admin Trade Name Rhettq PRN Reason Stop Dose Admin Hydromorphone HCl 1 mg 01/24/20 15:08 01/24/20 15:10 Dilaudid 2mg/Ml Syringe IV 01/24/20 15:09 1 mg ONCE ONE Administration Sodium Chloride 1,000 mls @ 999 mls/hr 01/24/20 15:15 01/24/20 15:10 Sod Chlor 0.9% 1000ml Bag IV 01/24/20 16:15 999 mls/hr .Q1H1M JOSSE Administration Ondansetron HCl 4 mg 01/24/20 15:08 01/24/20 15:10 Zofran 4mg/2ml Vial IV 01/24/20 15:09 4 mg ONCE ONE Administration ORDERS Category Date Time Status SARS-CoV-2, GREYSON Stat Lab 01/24/20 16:17 Ordered Blood Culture Stat Micro 04
[2020-01-24 17:03] VITALS: BP 123/74; PULSE 92; RESP 16; TEMP 37.2; O2SAT 98
[2020-01-25 18:09] LABS: Covid-19 Nasal PCR Sendout Lex Not Detected
--- NOTE | 2020-01-25 18:29 | PC.NURSE ---
notified pt and of negative COVID 19 results.
== END 2020-01-24 17:05 | disposition home or self-care (01) ==
PROVIDERS: Emergency Provider Family Medicine; PCP Nurse Practitioner
DX: B34.9 Viral infection, unspecified (principal); Z03.818 Encounter for observation for suspected exposure to other biological agents ruled out; Z91.040 Latex allergy status; Z90.49 Acquired absence of other specified parts of digestive tract; Z90.09 Acquired absence of other part of head and neck; Z88.2 Allergy status to sulfonamides; Z88.7 Allergy status to serum and vaccine
CPT/HCPCS: 71046; 74176; 80053; 81001; 81025; 83605; 85025; 85651; 86140; 87040; 87275; 87276; 87430; 96365; 96375; 96376; 99284; J2405; U0003

== ENCOUNTER 2020-02-01 21:01 | Emergency (ER) | payer OTHER, SELFPAY ==
[2020-02-01 21:01] VITALS: BP 138/70; PULSE 130; RESP 16; TEMP 36.7; O2SAT 97; BMI 21.4
--- NOTE | 2020-02-01 21:09 | XR_ITS ---
PROCEDURE: XR CHEST 2V CLINICAL HISTORY: CHEST PAIN COMPARISON: AGCHEST CT angio chest from 02/18/2018 XR CHEST 2V from 12/03/2019 XR CHEST 2V from 12/05/2019 XR CHEST 2V from 01/24/2020 FINDINGS: The cardiomediastinal silhouette and pulmonary vascularity are within normal limits. Increased markings are present in the left lower lobe with some silhouetting out of the hemidiaphragm suggesting left lower lobe infiltrate. Calcified granuloma is present in the right upper lobe. Mild levoscoliosis of the lower thoracic spine IMPRESSION: Left lower lobe infiltrate Dictated by: Gerber Blas MD 02/02/2020 07:30 Electronically signed by Gerber Blas MD in [place] 02/02/2020 07:30
--- NOTE | 2020-02-01 21:18 | ECG_ITS ---
APPROVED REPORT Exam: Resting ECG HR:126 bpm ECG Measurements Heart Rate 126 AXES ID 126 P 44 QRSd 76 QRS 61 QT 354 T 46 QTc 512 <Conclusion> Sinus tachycardia ST & T wave abnormality, consider inferior ischemia Abnormal ECG Electronically signed by : Shailesh Negron, 02/03/2020 10:58:12
[2020-02-01 21:43] LABS: Basophils # 0.1 K/mm3 (0-0.2); Basophils % 1.6 % (0.1-2.0); Eosinophils # 0.2 K/mm3 (0.0-0.4); Eosinophils % 1.9 % (0.1-12.0); Hematocrit 38.3 % (37.0-47.0); Hemoglobin 12.4 g/dL (12.2-16.2); Lymphocytes # 2.7 K/mm3 (0.7-4.5); Lymphocytes % 34.4 % (10-50); Mean Corpuscular HGB Conc 32.4 g/dL (31.8-35.4); Mean Corpuscular Hemoglobin 30.7 pg (27.0-31.2); Mean Corpuscular Volume 94.6 fl (81-99); Mean Platelet Volume 7.4 fl (7.4-10.4); Monocytes # 0.5 K/mm3 (0.1-1.0); Monocytes % 6.2 % (1.7-9.3); Neutrophils # 4.4 K/mm3 (1.8-7.8); Neutrophils % 55.8 % (37.0-80.0); Platelet Count 339 K/mm3 (142-424); Red Blood Count 4.05 M/mm3 (4.20-5.40); Red Cell Distribution Width 13.2 % (11.5-17.5); White Blood Count 7.9 K/mm3 (4.8-10.8)
--- NOTE | 2020-02-01 21:55 | HMH.EDCP ---
ED Disposition Clinical Impression: Atypical chest pain Disposition: Home, Self-Care Condition on Discharge: Good Instructions: DI for Atypical Chest Pain Additional Instructions: call pcp for follow up and recheck if needed Referrals: Provider,Referral, [Primary Care Provider] - - Critical Care Critical Care Time: No Attestation: On 02/01/20, the high probability of a clinically significant, sudden or life threatening deterioration of the following system(s) required my full and direct attention, intervention and personal management. The time I documented below is in addition to time spent performing reported procedures but includes the following listed in this critical care notation. Medical Decision Making - Medical Records Medical records reviewed: Yes: I reviewed the patient's medical records. - Federico Inquiry Pt receiving controlled substance: No Vital Signs: 02/01/20 21:01 02/01/20 22:06 02/01/20 22:25 Temperature 98.1 F Temperature Source Oral Pulse Rate [Right Brachial] 130 H 119 H 113 H Respiratory Rate 16 17 16 Blood Pressure [Right Arm] 138/70 142/66 H 123/79 Blood Pressure Mean [Right Arm] 92 91 93 Blood Pressure Source [Right Arm] Automatic Cuff Automatic Cuff Automatic Cuff Blood Pressure Position [Right Arm] Sitting Sitting Sitting 02 Sat by Pulse Oximetry 97 100 99 Oxygen Delivery Method Room Air Room Air Room Air - Lab Data Lab results reviewed: Yes: I reviewed the patient's lab results. Lab Results 02/01/20 21:30: WBC 7.9, RBC 4.05 L, Hgb 12.4, Hct 38.3, MCV 94.6, MCH 30.7, MCHC 32.4, RDW 13.2, Plt Count 339, MPV 7.4, Neut % (Auto) 55.8, Lymph % (Auto) 34.4, [place] % (Auto) 6.2, Eos % (Auto) 1.9, Baso % (Auto) 1.6, Neut # (Auto) 4.4, Lymph # (Auto) 2.7, [place] # (Auto) 0.5, Eos # (Auto) 0.2, Baso # (Auto) 0.1 02/01/20 21:30: Sodium 139, Potassium 2.9 L*, Chloride 103, Carbon Dioxide 27, Anion Gap 11.9, BUN 9, Creatinine 0.50 L, Estimated Creat Clear 175, Estimated GFR 148, Est GFR ( Amer) 179, Glucose 117 H, Calcium 9.7, Troponin I < 0.01 Result diagrams: 02/01/20 21:30 02/01/20 21:30 Orders (Tests/Meds): ED MEDICATIONS Generic Name Dose Route Start Last Admin Trade Name Freq PRN Reason Stop Dose Admin Sodium Chloride 1,000 mls @ 999 mls/hr 02/01/20 21:45 02/01/20 22:04 Sod Chlor 0.9% 1000ml Bag IV 02/01/20 22:45 999 mls/hr .Q1H1M JOSSE Administration Sodium Chloride 8 ml 02/01/20 21:44 02/01/20 22:05 Sodium Chloride 0.9% 10ml Vial IV 03/02/20 21:43 8 ml NEEDED PRN Administration dilute pepcid Discontinued Medications Generic Name Dose Route Start Last Admin Trade Name Freq PRN Reason Stop Dose Admin Aspirin 162 mg 02/01/20 21:38 02/01/20 21:57 Aspirin 81mg Chewable Tablet PO 02/01/20 21:39 Not Given ONCE ONE Diphenhydramine HCl 25 mg 02/01/20 21:55 02/01/20 22:04 Benadryl 50mg/1ml Vial IV 02/01/20 21:56 25 mg ONCE ONE Administration Famotidine 20 mg 02/01/20 21:44 02/01/20 22:04 Pepcid 20mg/2ml Vial IV 02/01/20 21:45 20 mg ONCE ONE Administration Methylprednisolone Sodium Succinate 125 mg 02/01/20 21:44 Solu-Medrol 125mg/2ml Vial IM 02/01/20 21:45 ONCE ONE Methylprednisolone Sodium Succinate 125 mg 02/01/20 22:04 02/01/20 22:04 Solu-Medrol 125mg/2ml Vial IV 02/01/20 22:05 125 mg ONCE ONE Administration Metoclopramide HCl 10 mg 02/02/20 06:00 Reglan 10mg/2ml Vial IVP 03/03/20 05:59 ACHS JOSSE ORDERS Category Date Time Status XR chest 2V Stat Exams 02/01/20 21:09 Taken Troponin I Q3H Lab 02/02/20 00:15 Ordered Troponin I Q3H Lab 02/02/20 03:15 Ordered Urinalysis and Microscopic Stat Lab 02/01/20 21:09 Ordered Urine , HCG Qual. Stat Lab 02/01/20 21:09 Ordered - Radiology Data #1 Image(s): Chest Image Reviewed: Yes I reviewed the patient's radiology image Preliminary Findings: Normal/NAD - ECG Data Tracing #1 A
[2020-02-01 22:06] VITALS: BP 142/66; PULSE 119; RESP 17; O2SAT 100
[2020-02-01 22:25] VITALS: BP 123/79; PULSE 113; RESP 16; O2SAT 99
[2020-02-01 22:26] LABS: Anion Gap 11.9 mEq/L (5-15); Blood Urea Nitrogen 9 mg/dl (7-17); Calcium 9.7 mg/dl (8.4-10.2); Carbon Dioxide 27 mmol/L (22.0-30.0); Chloride 103 mmol/L (98-107); Creatinine Clearance Estimated 175 mL/min (50-200); Estimated Glomerular Filt Rate 148 ml/min (>60); GFR (African American) 179 ML/MIN (>60); Glucose 117 mg/dl (74-100); Sodium 139 mmol/L (136-145)
--- NOTE | 2020-02-01 22:26 | PC.NURSE ---
Maia from lab called with critical lab result 2.9. informed.
[2020-02-01 22:27] LABS: Potassium 2.9 mmoL/L (3.5-5.1)
[2020-02-01 22:41] LABS: Troponin I < 0.01 ng/ml (0.00-0.034)
[2020-02-01 22:49] VITALS: BP 144/89; PULSE 112; RESP 16; TEMP 36.7; O2SAT 100
== END 2020-02-01 22:51 | disposition home or self-care (01) ==
PROVIDERS: Emergency Provider Emergency Medicine
DX: L50.0 Allergic urticaria (principal); R07.89 Other chest pain; R06.02 Shortness of breath; F41.9 Anxiety disorder, unspecified; Z91.040 Latex allergy status; Z90.09 Acquired absence of other part of head and neck; Z88.2 Allergy status to sulfonamides; Z88.7 Allergy status to serum and vaccine
CPT/HCPCS: 71046; 80048; 84484; 85025; 93005; 96365; 96375; 99283

== ENCOUNTER → 2020-02-02 14:58 | Outpatient (CLI) | payer OTHER, SELFPAY ==
[2020-02-02 16:16] LABS: Potassium 3.5 mmoL/L (3.5-5.1)
== END ==
PROVIDERS: Visit Provider Nurse Practitioner
DX: E87.6 Hypokalemia (principal)
CPT/HCPCS: 36415; 84132

== ENCOUNTER 2020-02-29 10:52 | Emergency (ER) | payer OTHER, SELFPAY ==
[2020-02-29 10:55] VITALS: BP 112/77; PULSE 67; RESP 20; TEMP 36.7; O2SAT 99; BMI 21.4
--- NOTE | 2020-02-29 11:23 | XR_ITS ---
PROCEDURE: XR CHEST 2V CLINICAL HISTORY: soa Shortness of air, direct exposure to CO ID patient COMPARISON: AGCHEST CT angio chest from 02/18/2018 XR CHEST 2V from 12/05/2019 XR CHEST 2V from 01/24/2020 XR CHEST 2V from 02/01/2020 FINDINGS: The cardiomediastinal silhouette and pulmonary vascularity are within normal limits. There is a mild pectus deformity. There is some silhouetting out of the right heart border which may be due to the pectus deformity. There is evidence of old granulomatous disease. There is mild lower thoracic curvature convex left IMPRESSION: No acute findings. Dictated by: Gerber Blas MD 02/29/2020 13:53 Electronically signed by Gerber Blas MD in [place] 02/29/2020 13:53
[2020-02-29 11:34] VITALS: BP 107/80; PULSE 85; RESP 16; O2SAT 97
[2020-02-29 11:36] LABS: Basophils % 0.3 % (0.1-2.0); Eosinophils # 0.1 K/mm3 (0.0-0.4); Eosinophils % 1.6 % (0.1-12.0); Hematocrit 38.5 % (37.0-47.0); Hemoglobin 12.8 g/dL (12.2-16.2); Lymphocytes # 1.1 K/mm3 (0.7-4.5); Mean Corpuscular HGB Conc 33.2 g/dL (31.8-35.4); Mean Corpuscular Hemoglobin 30.4 pg (27.0-31.2); Mean Corpuscular Volume 91.7 fl (81-99); Mean Platelet Volume 6.9 fl (7.4-10.4); Monocytes # 0.4 K/mm3 (0.1-1.0); Monocytes % 4.9 % (1.7-9.3); Neutrophils # 6.4 K/mm3 (1.8-7.8); Neutrophils % 79.1 % (37.0-80.0); Platelet Count 283 K/mm3 (142-424); Red Cell Distribution Width 12.8 % (11.5-17.5); White Blood Count 8.1 K/mm3 (4.8-10.8)
[2020-02-29 11:38] LABS: Chloride 107 mmol/L (98-107); Sodium 141 mmol/L (136-145)
[2020-02-29 11:39] LABS: Potassium 3.5 mmoL/L (3.5-5.1)
[2020-02-29 11:41] LABS: Alanine Aminotransferase 14 U/L (12-78); Albumin Level 4.5 g/dl (3.5-5.0); Alkaline Phosphatase 94 U/L (38-126); Anion Gap 11.5 mEq/L (5-15); Aspartate Amino Transferase 22 U/L (14-36); Bilirubin,Total 0.4 mg/dl (0.2-1.3); Blood Urea Nitrogen 9 mg/dl (7-17); Carbon Dioxide 26 mmol/L (22.0-30.0); Creatinine Clearance Estimated 146 mL/min (50-200); Estimated Glomerular Filt Rate 120 ml/min (>60); GFR (African American) 145 ML/MIN (>60)
[2020-02-29 11:42] LABS: Albumin/Globulin Ratio 1.6 (1.1-1.8); Calcium 9.1 mg/dl (8.4-10.2); Globulin 2.9 g/dL (1.3-3.2); Glucose 94 mg/dl (74-100); Total Protein,Serum 7.4 g/dl (6.3-8.2)
[2020-02-29 12:01] LABS: Coronavirus 19 IgG Antibody Negative (Negative); Coronavirus 19 IgM Antibody Negative (Negative)
[2020-02-29 12:50] VITALS: BP 119/84; PULSE 85; RESP 16; O2SAT 98
--- NOTE | 2020-02-29 12:55 | HMH.EDGENADL ---
ED Disposition Clinical Impression: Exposure to COVID-19 virus Upper respiratory infection Qualifiers: URI type: unspecified URI Qualified Code(s): J06.9 - Acute upper respiratory infection, unspecified Disposition: Home, Self-Care Condition on Discharge: Good Additional Instructions: Quarantine yourself and off work until COVID-19 test results are known. Tylenol for any pain or fever. Turn to the emergency room if severe shortness of breath, severe weakness. Referrals: Sabine Juan APRN [Primary Care Provider] - Forms: Work/School Release - Critical Care Critical Care Time: No Attestation: On 02/29/20, the high probability of a clinically significant, sudden or life threatening deterioration of the following system(s) required my full and direct attention, intervention and personal management. The time I documented below is in addition to time spent performing reported procedures but includes the following listed in this critical care notation. Medical Decision Making - Federico Inquiry Pt receiving controlled substance: No Vital Signs: 02/29/20 10:55 02/29/20 11:34 02/29/20 12:50 Temperature 98.1 F Temperature Source Oral Pulse Rate [Right] 67 85 85 Respiratory Rate 20 16 16 Blood Pressure [Right Arm] 112/77 107/80 L 119/84 Blood Pressure Mean [Right Arm] 88 89 95 Blood Pressure Source [Right Arm] Automatic Cuff Automatic Cuff Blood Pressure Position [Right Arm] Sitting Sitting 02 Sat by Pulse Oximetry 99 97 98 Oxygen Delivery Method Room Air Room Air - Lab Data Lab Results 02/29/20 11:30: WBC 8.1, RBC 4.20, Hgb 12.8, Hct 38.5, MCV 91.7, MCH 30.4, MCHC 33.2, RDW 12.8, Plt Count 283, MPV 6.9 L, Neut % (Auto) 79.1, Lymph % (Auto) 14.0, [place] % (Auto) 4.9, Eos % (Auto) 1.6, Baso % (Auto) 0.3, Neut # (Auto) 6.4, Lymph # (Auto) 1.1, [place] # (Auto) 0.4, Eos # (Auto) 0.1, Baso # (Auto) 0.0 02/29/20 11:30: Sodium 141, Potassium 3.5, Chloride 107, Carbon Dioxide 26, Anion Gap 11.5, BUN 9, Creatinine 0.60, Estimated Creat Clear 146, Estimated GFR 120, Est GFR ( Amer) 145, Glucose 94, Calcium 9.1, Total Bilirubin 0.4, AST 22, ALT 14, Alkaline Phosphatase 94, Total Protein 7.4, Albumin 4.5, Globulin 2.9, Albumin/Globulin Ratio 1.6 02/29/20 11:30: SARS-CoV-2 IgG Ab (Rapid) Negative, SARS-CoV-2 IgM Ab (Rapid) Negative 02/29/20 13:10: Influenza Type A Ag Negative, Influenza Type B Ag Negative 02/29/20 13:10: Group A Strep Rapid Negative Result diagrams: 02/29/20 11:30 02/29/20 11:30 Orders (Tests/Meds): ED MEDICATIONS Discontinued Medications Generic Name Dose Route Start Last Admin Trade Name Freq PRN Reason Stop Dose Admin Ondansetron HCl 4 mg 02/29/20 11:24 02/29/20 11:32 Zofran 4mg/2ml Vial IV 02/29/20 11:25 4 mg ONCE ONE Administration ORDERS Category Date Time Status XR chest 2V Stat Exams 02/29/20 11:23 Taken SARS-CoV-2, GREYSON Stat Lab 02/29/20 11:30 Received Strep Screen Confirmation Stat Micro 02/29/20 13:10 Received - Radiology Data #1 Image(s): Chest Image Reviewed: Yes I reviewed the patient's radiology image Preliminary Findings: Normal/NAD Medical Decision Narrative: Advised that prior to going back to work she should check with her employer to see whether she needs to quarantine longer just based on exposure even if her test is negative. General Adult HPI - General Chief complaint: Shortness of Breath/Dyspnea Stated complaint: soa Time Seen by Provider: 02/29/20 12:55 Mode of Arrival: Ambulatory Limitations: No Limitations Description of Symptoms (Recalled from ER Triage Doc. 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 - History of Present Illness HPI narrative: The patient says that she intubated her person 5 days ago. The person had tested negative for COVID-19, but on follow-up test was found to be positive. The patient says she now
--- NOTE | 2020-02-29 13:09 | PC.NURSE ---
flu and strep swab collected and sent to lab
[2020-02-29 13:30] LABS: Strep Scrn Group A (Rapid) Negative (Negative)
[2020-02-29 14:28] VITALS: BP 110/73; PULSE 72; RESP 16; TEMP 36.6; O2SAT 98
[2020-03-01 14:42] LABS: Covid-19 Nasal PCR Sendout Lex NOT DETECTED
== END 2020-02-29 14:30 | disposition home or self-care (01) ==
PROVIDERS: Emergency Provider Emergency Medicine; PCP Nurse Practitioner
DX: J06.9 Acute upper respiratory infection, unspecified (principal); Z20.828 Contact with and (suspected) exposure to other viral communicable diseases; I49.9 Cardiac arrhythmia, unspecified; Z91.040 Latex allergy status; Z88.2 Allergy status to sulfonamides; Z88.7 Allergy status to serum and vaccine; Z90.09 Acquired absence of other part of head and neck; Z90.49 Acquired absence of other specified parts of digestive tract; Z79.899 Other long term (current) drug therapy
CPT/HCPCS: 71046; 80053; 85025; 86328; 87275; 87276; 87430; 96374; 99283; 99284; J2405; U0004

== ENCOUNTER 2020-03-21 19:48 | Emergency (ER) | payer OTHER, SELFPAY ==
[2020-03-21 20:03] VITALS: BP 144/86; PULSE 83; RESP 16; TEMP 36.4; O2SAT 100; BMI 21.4
--- NOTE | 2020-03-21 20:14 | CT_ITS ---
PROCEDURE: CT ABDOMEN PELVIS W CON CLINICAL INDICATION: RLQ pain COMPARISON: CT ABDOMEN PELVIS WO CON from 01/24/2020 TECHNIQUE: IV Contrast: 75ML OPTIRAY 350 Oral Contrast None Axial images obtained with sagittal and coronal reformats. All CT scans at the facility use one or more dose reduction, viz: automated exposure control, ma/kV adjustment per patient size (including targeted exams where dose is matched to indication, i.e. head), or iterative reconstruction technique. FINDINGS: Lung bases are unremarkable. The enhanced liver, adrenal glands, pancreas, spleen, kidneys, aorta, small and large bowel, area of the appendix, and the soft tissues are unremarkable. Mild thoracolumbar scoliosis is noted. Patient is status post cholecystectomy. CT scan of the pelvis with contrast: Uterus, adnexal structures, bladder, soft tissues and bony structures are unremarkable for mass lesions. IMPRESSION: Status post cholecystectomy, no mass lesions Dictated by: Lino Lal 03/22/2020 09:29 Electronically signed by Lino Lal in [place] 03/22/2020 09:29
[2020-03-21 20:25] LABS: Microscopic, Urine URINE MICROSCOPIC (MICROSCOPIC)
[2020-03-21 20:35] LABS: Appearance,Urine CLEAR (Clear); Bilirubin,Urine Negative (Negative); Blood, Urine Negative (Negative); Color,Urine YELLOW (Yellow); Glucose,Urine (UA) Negative (Negative); Ketones,Urine Negative (Negative); Leukocyte Esterase,Urine Negative (Negative); Nitrate,Urine Negative (Negative); Protein,Urine Negative (Negative); Urobilinogen,Urine 0.2 EU/dl (0.2)
[2020-03-21 20:36] LABS: Basophils # 0.1 K/mm3 (0-0.2); Basophils % 0.6 % (0.1-2.0); Eosinophils # 0.2 K/mm3 (0.0-0.4); Hemoglobin 13.7 g/dL (12.2-16.2); Lymphocytes # 2.1 K/mm3 (0.7-4.5); Lymphocytes % 20.3 % (10-50); Mean Corpuscular HGB Conc 39.2 g/dL (31.8-35.4); Mean Corpuscular Hemoglobin 35.5 pg (27.0-31.2); Mean Corpuscular Volume 90.6 fl (81-99); Monocytes # 0.7 K/mm3 (0.1-1.0); Monocytes % 6.3 % (1.7-9.3); Neutrophils # 7.4 K/mm3 (1.8-7.8); Neutrophils % 70.9 % (37.0-80.0); Platelet Count 289 K/mm3 (142-424); Red Blood Count 3.87 M/mm3 (4.20-5.40); Red Cell Distribution Width 12.7 % (11.5-17.5); White Blood Count 10.4 K/mm3 (4.8-10.8)
[2020-03-21 20:37] LABS: Chloride 101 mmol/L (98-107); Sodium 139 mmol/L (136-145)
[2020-03-21 20:38] LABS: Potassium 3.6 mmoL/L (3.5-5.1)
[2020-03-21 20:39] LABS: Urine Pregnancy, HCG Qual. Negative (Negative)
[2020-03-21 20:40] LABS: Alanine Aminotransferase 17 U/L (12-78); Alkaline Phosphatase 102 U/L (38-126); Amylase 80 U/L (30-110); Anion Gap 12.6 mEq/L (5-15); Aspartate Amino Transferase 32 U/L (14-36); Bilirubin,Total 0.5 mg/dl (0.2-1.3); Blood Urea Nitrogen 12 mg/dl (7-17); Carbon Dioxide 29 mmol/L (22.0-30.0); Creatinine Clearance Estimated 125 mL/min (50-200); Estimated Glomerular Filt Rate 100 ml/min (>60); GFR (African American) 121 ML/MIN (>60)
[2020-03-21 20:41] LABS: Albumin/Globulin Ratio 1.5 (1.1-1.8); Calcium 9.1 mg/dl (8.4-10.2); Globulin 3.3 g/dL (1.3-3.2); Glucose 83 mg/dl (74-100); Lipase 51 U/L (23-300); Total Protein,Serum 8.3 g/dl (6.3-8.2)
[2020-03-21 20:46] LABS: C-Reactive Protein 4.4 mg/L (0-4)
[2020-03-21 20:54] LABS: Bacteria,Urine Trace /lpf; WBC,Urine Occasional #/hpf (0-3)
--- NOTE | 2020-03-21 21:04 | HMH.EDNVD ---
ED Disposition Clinical Impression: Blunt abdominal trauma Qualifiers: Encounter type: initial encounter Qualified Code(s): S39.91XA - Unspecified injury of abdomen, initial encounter Disposition: Home, Self-Care Condition on Discharge: Good Instructions: DI for Acute Abdomen Additional Instructions: call pcp for follow up Referrals: Shailesh Hines MD [Primary Care Provider] - - Critical Care Critical Care Time: No Attestation: On 03/21/20, the high probability of a clinically significant, sudden or life threatening deterioration of the following system(s) required my full and direct attention, intervention and personal management. The time I documented below is in addition to time spent performing reported procedures but includes the following listed in this critical care notation. Medical Decision Making - Medical Records Medical records reviewed: Yes: I reviewed the patient's medical records. - Federico Inquiry Pt receiving controlled substance: No Vital Signs: 03/21/20 20:03 03/21/20 21:44 Temperature 97.6 F 98.1 F Temperature Source Oral Oral Pulse Rate [Left] 83 88 Respiratory Rate 16 18 Blood Pressure [Left Arm] 144/86 H 117/87 Blood Pressure Mean [Left Arm] 105 97 Blood Pressure Source [Left Arm] Automatic Cuff Automatic Cuff Blood Pressure Position [Left Arm] Supine Supine 02 Sat by Pulse Oximetry 100 98 Oxygen Delivery Method Room Air Room Air - Lab Data Lab results reviewed: Yes: I reviewed the patient's lab results. Lab Results 03/21/20 20:15: Urine Color Yellow, Urine Appearance Clear, Urine pH 7.0, Ur Specific [place] 1.010, Urine Protein Negative, Urine Glucose (UA) Negative, Urine Ketones Negative, Urine Blood Negative, Urine Nitrate Negative, Urine Bilirubin Negative, Urine Urobilinogen 0.2, Ur Leukocyte Esterase Negative, Urine WBC Occasional, Ur Squamous Epith Cells 3-5, Urine Bacteria Trace 03/21/20 20:15: WBC 10.4, RBC 3.87 L, Hgb 13.7, Hct 35.0 L, MCV 90.6, MCH 35.5 H, MCHC 39.2 H, RDW 12.7, Plt Count 289, MPV 7.0 L, Neut % (Auto) 70.9, Lymph % (Auto) 20.3, [place] % (Auto) 6.3, Eos % (Auto) 2.0, Baso % (Auto) 0.6, Neut # (Auto) 7.4, Lymph # (Auto) 2.1, [place] # (Auto) 0.7, Eos # (Auto) 0.2, Baso # (Auto) 0.1, ESR 18 03/21/20 20:15: Urine HCG, Qual Negative 03/21/20 20:15: Sodium 139, Potassium 3.6, Chloride 101, Carbon Dioxide 29, Anion Gap 12.6, BUN 12, Creatinine 0.70, Estimated Creat Clear 125, Estimated GFR 100, Est GFR ( Amer) 121, Glucose 83, Calcium 9.1, Total Bilirubin 0.5, AST 32, ALT 17, Alkaline Phosphatase 102, C-Reactive Protein 4.4 H, Total Protein 8.3 H, Albumin 5.0, Globulin 3.3 H, Albumin/Globulin Ratio 1.5, Amylase 80, Lipase 51 Result diagrams: 03/21/20 20:15 03/21/20 20:15 Orders (Tests/Meds): ED MEDICATIONS Generic Name Dose Route Start Last Admin Trade Name Freq PRN Reason Stop Dose Admin Sodium Chloride 500 mls @ 999 mls/hr 03/21/20 20:15 03/21/20 20:45 Sod Chlor 0.9% 1000ml Bag IV 03/21/20 20:45 999 mls/hr .Q31M JOSSE Administration Discontinued Medications Generic Name Dose Route Start Last Admin Trade Name Freq PRN Reason Stop Dose Admin Ioversol 75 ml 03/21/20 21:48 03/21/20 21:50 Rad-Optiray 350 150ml Vial IV 03/21/20 21:49 75 ml ONCE ONE Administration Ondansetron HCl 4 mg 03/21/20 20:14 03/21/20 20:34 Zofran 4mg/2ml Vial IV 03/21/20 20:15 4 mg ONCE ONE Administration Sodium Chloride 10 ml 03/21/20 21:48 03/21/20 21:50 Rad-Saline Flush 10ml Syringe IV 03/21/20 21:49 10 ml ONCE ONE Administration ORDERS Category Date Time Status CT abdomen pelvis w con Stat Cat Scan 03/21/20 20:14 Taken - CT Data CT Scan: Abdomen, Pelvis Time Received: 22:[address] Reviewed: Yes: I have viewed the radiologist's interpretation Preliminary Findings: Normal/NAD Nausea/Vomiting/Diarrhea HPI - General Chief complaint: Abdominal Pain Stated complaint: Abd pain,vomiting Time Seen by Provider: 06
[2020-03-21 21:25] LABS: Erythrocyte Sedimentation Rate 18 mm/hr (0-20)
[2020-03-21 21:44] VITALS: BP 117/87; PULSE 88; RESP 18; TEMP 36.7; O2SAT 98
[2020-03-21 22:52] VITALS: BP 122/82; PULSE 80; RESP 14; TEMP 36.7; O2SAT 98
== END 2020-03-21 22:56 | disposition home or self-care (01) ==
PROVIDERS: Emergency Provider Emergency Medicine; PCP Family Medicine
DX: S39.91XA Unspecified injury of abdomen, initial encounter (principal); Z79.899 Other long term (current) drug therapy; Z91.040 Latex allergy status; Z88.2 Allergy status to sulfonamides; Z88.7 Allergy status to serum and vaccine; Z90.09 Acquired absence of other part of head and neck; Z90.49 Acquired absence of other specified parts of digestive tract; W50.0XXA Accidental hit or strike by another person, initial encounter; Y92.019 Unspecified place in single-family (private) house as the place of occurrence of the external cause
CPT/HCPCS: 74177; 80053; 81001; 81025; 82150; 83690; 85025; 85651; 86140; 96365; 96375; 99283; J2405; Q9967

== ENCOUNTER → 2020-09-06 15:35 | Outpatient (CLI) | payer OTHER, SELFPAY ==
[2020-09-09 08:27] LABS: Covid-19 Nasal PCR Sendout UK DETECTED
== END ==
PROVIDERS: PCP Nurse Practitioner Family; Visit Provider Nurse Practitioner Family
DX: Z20.828 Contact with and (suspected) exposure to other viral communicable diseases (principal); U07.1 COVID-19
CPT/HCPCS: U0003

== ENCOUNTER → 2020-10-01 15:55 | Outpatient (CLI) | payer OTHER, SELFPAY ==
--- NOTE | 2020-10-01 16:10 | US_ITS ---
PROCEDURE: US OB TRANSVAGINAL CLINICAL INDICATION: RLQ ABD PAIN, FEVER, LESS THAN 8 WKS COMPARISON: No exams were available for comparison FINDINGS: There is a 4 mm gestational sac. No pole is evident.. Combined endometrial thickness is 11 mm. The ovaries have an unremarkable appearance. IMPRESSION: There is an intrauterine cystic structure which may represent a gestational sac which measures 4 mm too small for characterization. No adnexal mass. Dictated by: Gerber Blas MD 10/01/2020 19:01 Gerber Blas MD in [place] 10/01/2020 19:01
[2020-10-01 17:55] LABS: Chloride 104 mmol/L (98-107)
[2020-10-01 17:56] LABS: Potassium 3.9 mmoL/L (3.5-5.1); Sodium 139 mmol/L (136-145)
[2020-10-01 17:58] LABS: Alanine Aminotransferase 14 U/L (12-78); Alkaline Phosphatase 109 U/L (38-126); Aspartate Amino Transferase 26 U/L (14-36); Basophils % 0.3 % (0.1-2.0); Bilirubin,Total 0.4 mg/dl (0.2-1.3); Blood Urea Nitrogen 5 mg/dl (7-17); Eosinophils # 0.1 K/mm3 (0.0-0.4); Eosinophils % 1.4 % (0.1-12.0); Estimated Glomerular Filt Rate 147 ml/min (>60); GFR (African American) 178 ML/MIN (>60); Hematocrit 40.9 % (37.0-47.0); Hemoglobin 13.6 g/dL (12.2-16.2); Lymphocytes # 2.1 K/mm3 (0.7-4.5); Lymphocytes % 23.1 % (10-50); Mean Corpuscular HGB Conc 33.4 g/dL (31.8-35.4); Mean Corpuscular Hemoglobin 28.8 pg (27.0-31.2); Mean Corpuscular Volume 86.1 fl (81-99); Mean Platelet Volume 7.5 fl (7.4-10.4); Monocytes # 0.6 K/mm3 (0.1-1.0); Monocytes % 6.9 % (1.7-9.3); Neutrophils # 6.1 K/mm3 (1.8-7.8); Neutrophils % 68.2 % (37.0-80.0); Platelet Count 326 K/mm3 (142-424); Red Blood Count 4.75 M/mm3 (4.20-5.40); Red Cell Distribution Width 13.8 % (11.5-17.5)
[2020-10-01 17:59] LABS: Albumin Level 4.9 g/dl (3.5-5.0); Albumin/Globulin Ratio 1.4 (1.1-1.8); Anion Gap 13.9 mEq/L (5-15); Calcium 9.6 mg/dl (8.4-10.2); Carbon Dioxide 25 mmol/L (22.0-30.0); Globulin 3.4 g/dL (1.3-3.2); Glucose 83 mg/dl (74-100); Total Protein,Serum 8.3 g/dl (6.3-8.2)
[2020-10-01 18:16] LABS: HCG,Quantitative 777 mIU/ml (0-5.42)
== END ==
PROVIDERS: PCP Nurse Practitioner Family; Visit Provider Nurse Practitioner Family
DX: R10.31 Right lower quadrant pain (principal); R50.9 Fever, unspecified; Z3A.01 Less than 8 weeks gestation of pregnancy
CPT/HCPCS: 36415; 76817; 80053; 84702; 85025

== ENCOUNTER → 2020-10-02 08:08 | Outpatient (CLI) | payer OTHER, SELFPAY ==
--- NOTE | 2020-10-02 08:18 | US_ITS ---
PROCEDURE: US ABDOMEN LIMITED CLINICAL INDICATION: RLQ PAIN,FEVER,LESS THAN 8WKS GESTATION OF PREG. COMPARISON: US US OB TRANSVAGINAL from 10/01/2020 FINDINGS: Images are performed of the right lower quadrant in this patient which is with right lower quadrant pain. The appendix is not identified. No enlarged appendix is seen. There is a suggestion of a corpus luteum cyst in the right ovary with a ring of fire sign at this area measuring 2 cm. IMPRESSION: 1. An enlarged appendix is not identified. Negative ultrasound for appendicitis does not exclude the possibility appendicitis. MRI of the abdomen may be of further value if appendicitis is a clinical consideration. 2. 2 cm right corpus luteum cyst Dictated by: Gerber Blas MD 10/03/2020 10:12 Gerber Blas MD in [place] 10/03/2020 10:12
== END ==
PROVIDERS: PCP Nurse Practitioner Family; Visit Provider Nurse Practitioner Family
DX: R10.31 Right lower quadrant pain (principal); R50.9 Fever, unspecified; Z3A.01 Less than 8 weeks gestation of pregnancy
CPT/HCPCS: 76705

== ENCOUNTER → 2020-10-03 10:41 | Outpatient (CLI) | payer OTHER, SELFPAY ==
[2020-10-03 12:18] LABS: HCG,Quantitative 1496 mIU/ml (0-5.42)
== END ==
PROVIDERS: PCP Nurse Practitioner Family; Visit Provider Obstetrics & Gynecology
DX: O20.0 Threatened abortion (principal)
CPT/HCPCS: 36415; 84702

== ENCOUNTER 2020-10-30 15:16 | Emergency (ER) | payer OTHER, SELFPAY ==
[2020-10-30 15:17] VITALS: BP 130/77; PULSE 110; RESP 18; TEMP 36.9; O2SAT 97; BMI 21.2
--- NOTE | 2020-10-30 15:40 | HMH.EDGENADL ---
ED Disposition Clinical Impression: Hyperemesis gravidarum, Clarice-Guevara syndrome Disposition: Home, Self-Care Condition on Discharge: Good Instructions: DI for Vomiting -- Adult, DI for Clarice-Guevara Syndrome Additional Instructions: Continue Pepcid and Phenergan, Zofran, vitamin B6 and Benadryl as prescribed previously. Contact your ACTIVITIES COUNSELOR tomorrow for further follow-up. Contact your primary care provider as well. Referrals: Sabine Juan APRN [Primary Care Provider] - - Critical Care Critical Care Time: No Attestation: On 10/30/20, the high probability of a clinically significant, sudden or life threatening deterioration of the following system(s) required my full and direct attention, intervention and personal management. The time I documented below is in addition to time spent performing reported procedures but includes the following listed in this critical care notation. Medical Decision Making - Medical Records Medical records reviewed: Yes: I reviewed the patient's medical records. MR Comment: Also noted on collected notification that she was at [facility] emergency department on 10/25/2020 for chest pain. - Federico Inquiry Pt receiving controlled substance: No Vital Signs: 10/30/20 15:17 10/30/20 17:01 Temperature 98.5 F Temperature Source Oral Pulse Rate [Right Radial] 110 H 94 H Respiratory Rate 18 18 Blood Pressure [Right Arm] 130/77 107/67 L Blood Pressure Mean [Right Arm] 94 80 Blood Pressure Source [Right Arm] Automatic Cuff Automatic Cuff Blood Pressure Position [Right Arm] Sitting Right Lateral 02 Sat by Pulse Oximetry 97 100 Oxygen Delivery Method Room Air Room Air - Lab Data Lab results reviewed: Yes: I reviewed the patient's lab results. Lab Results 10/30/20 16:00: WBC 11.9 H, RBC 4.22, Hgb 12.0 L, Hct 36.3 L, MCV 86.0, MCH 28.4, MCHC 33.1, RDW 13.7, Plt Count 344, MPV 6.7 L, Neut % (Auto) 78.6, Lymph % (Auto) 14.0, [place] % (Auto) 6.2, Eos % (Auto) 0.8, Baso % (Auto) 0.4, Neut # (Auto) 9.4 H, Lymph # (Auto) 1.7, [place] # (Auto) 0.7, Eos # (Auto) 0.1, Baso # (Auto) 0.1 10/30/20 16:00: Sodium 135 L, Potassium 3.6, Chloride 104, Carbon Dioxide 25, Anion Gap 9.6, BUN 7, Creatinine 0.50 L, Estimated Creat Clear 168, Estimated GFR 147, Est GFR ( Amer) 178, Glucose 90, Calcium 9.3, Total Bilirubin 0.4, AST 19, ALT 9 L, Alkaline Phosphatase 98, Total Protein 7.7, Albumin 4.4, Globulin 3.3 H, Albumin/Globulin Ratio 1.3 10/30/20 17:00: Stool Occult Blood Negative Result diagrams: 10/30/20 16:00 10/30/20 16:00 Orders (Tests/Meds): ED MEDICATIONS Generic Name Dose Route Start Last Admin Trade Name Freq PRN Reason Stop Dose Admin Sodium Chloride 8 ml 10/30/20 15:53 Sodium Chloride 0.9% 10ml Vial IV 11/29/20 15:52 NEEDED PRN dilute pepcid Discontinued Medications Generic Name Dose Route Start Last Admin Trade Name Freq PRN Reason Stop Dose Admin Diphenhydramine HCl 25 mg 10/30/20 15:53 10/30/20 16:45 Diphenhydramine 50mg/Ml Vial IV 10/30/20 15:54 25 mg ONCE ONE Administration Famotidine 20 mg 10/30/20 15:53 10/30/20 16:45 Famotidine 20mg/2ml Vial IV 10/30/20 15:54 20 mg ONCE ONE Administration Promethazine HCl 12.5 mg 10/30/20 15:53 10/30/20 16:45 Promethazine Hcl 25mg/Ml 1ml Vial IV 10/30/20 15:54 12.5 mg ONCE ONE Administration Promethazine HCl 12.5 mg 10/30/20 17:10 10/30/20 17:48 Promethazine Hcl 25mg/Ml 1ml Vial IV 10/30/20 17:11 12.5 mg ONCE ONE Administration Sodium Chloride 1,000 ml 10/30/20 15:53 10/30/20 16:45 Sodium Chloride 0.9% 1000ml Bag IV 10/30/20 15:54 1,000 ml BOLUS ONE Administration Sodium Chloride 25 ml 10/30/20 15:53 10/30/20 16:56 Sodium Chloride 0.9% 25ml Bag IV 10/30/20 15:54 25 ml ONCE ONE Administration Sodium Chloride 25 ml 10/30/20 17:10 10/30/20 17:48 Sodium Chloride 0.9% 25ml Bag IV 10/30/20 17:11 25 ml ONCE ONE Administration ORDER
--- NOTE | 2020-10-30 15:59 | PC.NURSE ---
Notified Brice of need for US guided IV
--- NOTE | 2020-10-30 16:16 | PC.NURSE ---
outpatient nursing staff at using ultrasound to obtain IV and blood on pt.
[2020-10-30 16:41] LABS: Chloride 104 mmol/L (98-107); Potassium 3.6 mmoL/L (3.5-5.1); Sodium 135 mmol/L (136-145)
[2020-10-30 16:43] LABS: Basophils # 0.1 K/mm3 (0-0.2); Basophils % 0.4 % (0.1-2.0); Eosinophils # 0.1 K/mm3 (0.0-0.4); Eosinophils % 0.8 % (0.1-12.0); Hematocrit 36.3 % (37.0-47.0); Lymphocytes # 1.7 K/mm3 (0.7-4.5); Mean Corpuscular HGB Conc 33.1 g/dL (31.8-35.4); Mean Corpuscular Hemoglobin 28.4 pg (27.0-31.2); Mean Platelet Volume 6.7 fl (7.4-10.4); Monocytes # 0.7 K/mm3 (0.1-1.0); Monocytes % 6.2 % (1.7-9.3); Neutrophils # 9.4 K/mm3 (1.8-7.8); Neutrophils % 78.6 % (37.0-80.0); Platelet Count 344 K/mm3 (142-424); Red Blood Count 4.22 M/mm3 (4.20-5.40); Red Cell Distribution Width 13.7 % (11.5-17.5); White Blood Count 11.9 K/mm3 (4.8-10.8)
[2020-10-30 16:44] LABS: Alanine Aminotransferase 9 U/L (12-78); Albumin Level 4.4 g/dl (3.5-5.0); Albumin/Globulin Ratio 1.3 (1.1-1.8); Alkaline Phosphatase 98 U/L (38-126); Anion Gap 9.6 mEq/L (5-15); Aspartate Amino Transferase 19 U/L (14-36); Bilirubin,Total 0.4 mg/dl (0.2-1.3); Blood Urea Nitrogen 7 mg/dl (7-17); Calcium 9.3 mg/dl (8.4-10.2); Carbon Dioxide 25 mmol/L (22.0-30.0); Creatinine Clearance Estimated 168 mL/min (50-200); Estimated Glomerular Filt Rate 147 ml/min (>60); GFR (African American) 178 ML/MIN (>60); Globulin 3.3 g/dL (1.3-3.2); Glucose 90 mg/dl (74-100); Total Protein,Serum 7.7 g/dl (6.3-8.2)
[2020-10-30 17:01] VITALS: BP 107/67; PULSE 94; RESP 18; O2SAT 100
[2020-10-30 17:18] LABS: Occult Blood,Stool Negative (Negative)
[2020-10-30 18:30] VITALS: BP 107/68; PULSE 85; RESP 18; TEMP 36.9; O2SAT 99
== END 2020-10-30 18:30 | disposition home or self-care (01) ==
PROVIDERS: Emergency Provider Emergency Medicine; PCP Nurse Practitioner
DX: O21.0 Mild hyperemesis gravidarum (principal); Z3A.08 8 weeks gestation of pregnancy; K22.6 Gastro-esophageal laceration-hemorrhage syndrome; I49.9 Cardiac arrhythmia, unspecified; Z87.19 Personal history of other diseases of the digestive system; Z79.899 Other long term (current) drug therapy; Z91.040 Latex allergy status; Z88.2 Allergy status to sulfonamides; Z88.7 Allergy status to serum and vaccine; Z88.8 Allergy status to other drugs, medicaments and biological substances; Z91.018 Allergy to other foods
CPT/HCPCS: 80053; 82272; 85025; 96365; 96375; 96376; 99283; G0328

== ENCOUNTER → 2021-04-07 10:25 | Outpatient (CLI) | payer OTHER, SELFPAY ==
[2021-04-07 11:37] LABS: Iron 29 ug/dL (37-170)
[2021-04-07 11:47] LABS: Total Iron Binding Capacity 514 ug/dL (265-497)
[2021-04-07 11:56] LABS: 25-OH Vitamin D, Total 25.8 ng/mL (30-100)
[2021-04-07 12:17] LABS: Ferritin 5.71 ng/ml (6.24-137)
== END ==
PROVIDERS: Visit Provider Obstetrics & Gynecology
DX: O99.119 Other diseases of the blood and blood-forming organs and certain disorders involving the immune mechanism complicating pregnancy, unspecified trimester; E55.9 Vitamin D deficiency, unspecified
CPT/HCPCS: 36415; 82306; 82728; 83540; 83550; J1642

== ENCOUNTER 2021-05-08 09:30 | Outpatient (RCR) | payer OTHER, SELFPAY | END 2021-05-08 09:35 | disposition home or self-care (01) | LOC: PT 09:30 | PROVIDERS: PCP Nurse Practitioner; Visit Provider Obstetrics & Gynecology | DX: M53.3 Sacrococcygeal disorders, not elsewhere classified (principal); M41.9 Scoliosis, unspecified; Z34.03 Encounter for supervision of normal first pregnancy, third trimester | CPT/HCPCS: 97110; 97140; 97163 ==

== ENCOUNTER 2021-06-02 10:57 | Emergency (ER) | payer OTHER, SELFPAY ==
[2021-06-02 12:09] LABS: Microscopic, Urine URINE MICROSCOPIC (MICROSCOPIC)
[2021-06-02 12:13] LABS: Appearance,Urine CLEAR (Clear); Bilirubin,Urine Negative (Negative); Blood, Urine Negative (Negative); Color,Urine YELLOW (Yellow); Glucose,Urine (UA) Negative (Negative); Ketones,Urine Negative (Negative); Leukocyte Esterase,Urine TRACE (Negative); Nitrate,Urine Negative (Negative); Protein,Urine Negative (Negative); Specific Gravity, Urine 1.025 (1.005-1.030); Urine Pregnancy, HCG Qual. Negative (Negative); Urobilinogen,Urine 0.2 EU/dl (0.2)
[2021-06-02 12:14] VITALS: BP 115/89; PULSE 79; RESP 16; TEMP 36.9; O2SAT 99; BMI 26.6
--- NOTE | 2021-06-02 12:21 | HMH.EDABDPAI ---
ED Disposition Clinical Impression: Abdominal pain Qualifiers: Abdominal location: lower abdomen, unspecified Qualified Code(s): R10.30 - Lower abdominal pain, unspecified Disposition: Home, Self-Care Condition on Discharge: Fair Instructions: DI for Acute Abdominal Pain Additional Instructions: Please return to the emergency department if you feel worse in any way. Follow-up with your primary care physician if you do not improve within the next 2 to 3 days. Referrals: Michaela Sousa APRN [Primary Care Provider] - 3 days - Critical Care Critical Care Time: No Attestation: On 06/02/21, the high probability of a clinically significant, sudden or life threatening deterioration of the following system(s) required my full and direct attention, intervention and personal management. The time I documented below is in addition to time spent performing reported procedures but includes the following listed in this critical care notation. Medical Decision Making - Medical Records Medical records reviewed: Yes: I reviewed the patient's medical records. - Federico Inquiry Pt receiving controlled substance: No Vital Signs: 06/02/21 12:14 06/02/21 13:35 Temperature 98.5 F Temperature Source Oral Pulse Rate [Right Radial] 79 72 Respiratory Rate 16 18 Blood Pressure [Right Arm] 115/89 110/89 Blood Pressure Mean [Right Arm] 97 96 Blood Pressure Source [Right Arm] Automatic Cuff Blood Pressure Position [Right Arm] Sitting 02 Sat by Pulse Oximetry 99 99 Oxygen Delivery Method Room Air - Lab Data Lab results reviewed: Yes: I reviewed the patient's lab results. Lab Results 06/02/21 11:50: Urine Color Yellow, Urine Appearance Clear, Urine pH 6.0, Ur Specific [place] 1.025, Urine Protein Negative, Urine Glucose (UA) Negative, Urine Ketones Negative, Urine Blood Negative, Urine Nitrate Negative, Urine Bilirubin Negative, Urine Urobilinogen 0.2, Ur Leukocyte Esterase Trace, Urine RBC None, Urine WBC Occasional, Ur Squamous Epith Cells None, Urine Bacteria None, Urine Mucus Trace 06/02/21 11:50: Urine HCG, Qual Negative 06/02/21 13:30: WBC 6.2, RBC 4.84, Hgb 12.9, Hct 40.8, MCV 84.4, MCH 26.7 L, MCHC 31.6 L, RDW 18.0 H, Plt Count 489 H, MPV 7.0 L, Neut % (Auto) 64.7, Lymph % (Auto) 22.6, [place] % (Auto) 5.6, Eos % (Auto) 5.3, Baso % (Auto) 1.7, Neut # (Auto) 4.0, Lymph # (Auto) 1.4, [place] # (Auto) 0.4, Eos # (Auto) 0.3, Baso # (Auto) 0.1 06/02/21 13:30: Sodium 139, Potassium 5.2 H, Chloride 103, Carbon Dioxide 24, Anion Gap 17.2 H, BUN 15, Creatinine 0.70, Estimated Creat Clear 153, Estimated GFR 99, Est GFR ( Amer) 120, Glucose 91, Calcium 8.9, Total Bilirubin 0.8, AST 84 H, ALT 18, Alkaline Phosphatase 157 H, Total Protein 8.0, Albumin 4.3, Globulin 3.7 H, Albumin/Globulin Ratio 1.2 Result diagrams: 06/02/21 13:30 06/02/21 13:30 Orders (Tests/Meds): ED MEDICATIONS Discontinued Medications Generic Name Dose Route Start Last Admin Trade Name Freq PRN Reason Stop Dose Admin Ketorolac Tromethamine 60 mg 06/02/21 13:34 06/02/21 13:37 Ketorolac 60mg/2ml Vial IM 06/02/21 13:35 Not Given ONCE ONE Ketorolac Tromethamine 30 mg 06/02/21 13:35 06/02/21 13:42 Ketorolac 30mg/Ml Vial IV 06/02/21 13:36 30 mg ONCE ONE Administration - CT Data CT Scan: Abdomen, Pelvis Time Received: 14:[address] Reviewed: Yes: I have reviewed the patient's CT results, I have viewed the radiologist's interpretation Preliminary Findings: Normal/NAD (Renal stones, but no acute intra-abdominal pathology seen) Medical Decision Narrative: The patient's work-up in the emergency department today did not reveal any life-threatening or dangerous conditions. CT of the abdomen did not show any acute intra-abdominal pathology. I feel that the patient can be safely discharged home in stable condition. Abdominal Pain HPI - General Chief Complaint: Abdominal Pain Stated Complaint: possible kidney stone Time Seen by Provider
[2021-06-02 12:25] LABS: Mucus,Urine Trace /lpf; WBC,Urine Occasional #/hpf (0-3)
--- NOTE | 2021-06-02 12:25 | CT_ITS ---
PROCEDURE INFORMATION: Exam: CT Abdomen And Pelvis Without Contrast Exam date and time: 06/02/2021 12:25 PM Age: 31 years old Clinical indication: Abdominal pain; Right; Prior surgery; Surgery date: <1 month; Surgery type: ; Patient HX: PT reports RT flank pain, R/O ureteral stone, PT is couple weeks post . ; Additional info: Left flank pain (r/o ureteral stone) TECHNIQUE: Imaging protocol: Computed tomography of the abdomen and pelvis without contrast. Radiation optimization: All CT scans at this facility use at least one of these dose optimization techniques: automated exposure control; mA and/or kV adjustment per patient size (includes targeted exams where dose is matched to clinical indication); or iterative reconstruction. COMPARISON: CT ABDOMEN PELVIS W CON 03/21/2020 9:42 PM FINDINGS: Liver: Normal. No mass. Gallbladder and bile ducts: Status post cholecystectomy. Pancreas: Normal. No ductal dilation. Spleen: Normal. No splenomegaly. Adrenal glands: Normal. No mass. Kidneys and ureters: 2 mm nonobstructing left intrarenal calculus. No evidence of hydronephrosis or ureteral stones. Stomach and bowel: Moderate feces is present throughout the colon. Appendix: No evidence of appendicitis. Intraperitoneal space: Unremarkable. No free air. No significant fluid collection. Vasculature: Unremarkable. No abdominal aortic aneurysm. Lymph nodes: Unremarkable. No enlarged lymph nodes. Urinary bladder: Unremarkable as visualized. Reproductive: Unremarkable as visualized. Bones/joints: Unremarkable. No acute fracture. Soft tissues: Unremarkable. IMPRESSION: 1. 2 mm nonobstructing left intrarenal calculus. No evidence of hydronephrosis or ureteral stones. 2. No definite evidence of acute abdominal or pelvic pathology. Remainder of findings as described above.
--- NOTE | 2021-06-02 12:43 | PC.NURSE ---
Pt to CT
[2021-06-02 13:35] VITALS: BP 110/89; PULSE 72; RESP 18; O2SAT 99
[2021-06-02 13:46] LABS: Basophils # 0.1 K/mm3 (0-0.2); Basophils % 1.7 % (0.1-2.0); Eosinophils # 0.3 K/mm3 (0.0-0.4); Eosinophils % 5.3 % (0.1-12.0); Hematocrit 40.8 % (37.0-47.0); Hemoglobin 12.9 g/dL (12.2-16.2); Lymphocytes # 1.4 K/mm3 (0.7-4.5); Lymphocytes % 22.6 % (10-50); Mean Corpuscular HGB Conc 31.6 g/dL (31.8-35.4); Mean Corpuscular Hemoglobin 26.7 pg (27.0-31.2); Mean Corpuscular Volume 84.4 fl (81-99); Monocytes # 0.4 K/mm3 (0.1-1.0); Monocytes % 5.6 % (1.7-9.3); Neutrophils % 64.7 % (37.0-80.0); Platelet Count 489 K/mm3 (142-424); Red Blood Count 4.84 M/mm3 (4.20-5.40); White Blood Count 6.2 K/mm3 (4.8-10.8)
[2021-06-02 13:55] LABS: Chloride 103 mmol/L (98-107); Potassium 5.2 mmoL/L (3.5-5.1); Sodium 139 mmol/L (136-145)
[2021-06-02 13:57] LABS: Blood Urea Nitrogen 15 mg/dl (7-17); Creatinine Clearance Estimated 153 mL/min (50-200); Estimated Glomerular Filt Rate 99 ml/min (>60); GFR (African American) 120 ML/MIN (>60)
[2021-06-02 13:58] LABS: Alanine Aminotransferase 18 U/L (12-78); Albumin Level 4.3 g/dl (3.5-5.0); Albumin/Globulin Ratio 1.2 (1.1-1.8); Alkaline Phosphatase 157 U/L (38-126); Anion Gap 17.2 mEq/L (5-15); Aspartate Amino Transferase 84 U/L (14-36); Bilirubin,Total 0.8 mg/dl (0.2-1.3); Calcium 8.9 mg/dl (8.4-10.2); Carbon Dioxide 24 mmol/L (22.0-30.0); Globulin 3.7 g/dL (1.3-3.2); Glucose 91 mg/dl (74-100)
[2021-06-02 14:17] VITALS: BP 115/89; PULSE 85; RESP 16; TEMP 36.8; O2SAT 100
== END 2021-06-02 14:21 | disposition home or self-care (01) ==
LOC: UTC 10:59 → ER 11:57
PROVIDERS: Emergency Provider Emergency Medicine; PCP Nurse Practitioner Family
DX: R10.31 Right lower quadrant pain (principal); Z91.040 Latex allergy status; Z88.2 Allergy status to sulfonamides; Z88.7 Allergy status to serum and vaccine
CPT/HCPCS: 74176; 80053; 81001; 81025; 85025; 96372; 96374; 99283

== ENCOUNTER → 2021-06-26 11:41 | Outpatient (CLI) | payer OTHER, SELFPAY ==
--- NOTE | 2021-06-26 11:45 | XR_ITS ---
PROCEDURE: XR KNEE LT 3V CLINICAL INDICATION: INJURY OF LEFT KNEE, S/P LEFT KNEE SURGERY COMPARISON: No exams were available for comparison FINDINGS: No fracture or dislocation. No lytic or blastic change. There is normal mineralization. The joint spaces are well-preserved. No significant degenerative/arthritic changes. No erosive changes evident. Other findings:None. IMPRESSION: No acute findings. Dictated by: Gerber Blas MD 06/26/2021 12:12 Gerber Blas MD in [place] 06/26/2021 12:12
== END ==
PROVIDERS: PCP Nurse Practitioner Family; Visit Provider Nurse Practitioner Family
DX: S89.92XA Unspecified injury of left lower leg, initial encounter (principal); Z98.890 Other specified postprocedural states
CPT/HCPCS: 73562

== ENCOUNTER → 2021-07-02 16:43 | Outpatient (CLI) | payer OTHER, SELFPAY | PROVIDERS: PCP Nurse Practitioner Family; Visit Provider Nurse Practitioner Family | DX: M25.562 Pain in left knee (principal) ==

== ENCOUNTER 2021-07-03 17:41 | Emergency (ER) | payer OTHER, SELFPAY ==
[2021-07-03 18:42] VITALS: BP 141/93; PULSE 86; RESP 19; TEMP 37; O2SAT 99; BMI 26.6
--- NOTE | 2021-07-03 18:52 | HMH.EDUTC ---
[facility] [place] Clinical Impression: Knee pain Qualifiers: Chronicity: unspecified Laterality: left Qualified Code(s): M25.562 - Pain in left knee Disposition: Home, Self-Care Condition on Discharge: Good Instructions: DI for Knee Pain, How to Use a Knee Immobilizer Additional Instructions: *weight bearing as tolerated *RICE, Rest the extremity, Ice 15-20 minutes 3-4 times daily, Compress- wear the darin wrap as discussed as much as possible to help reduce swelling and pain, Elevate the extremity when at rest *Knee immobilizer is for support and help control swelling, use it except in the shower. Be sure that is not to tight but not to loose either *Elevate when resting * Tylenol as directed on package for pain Immediately follow up with your family doctor for new or worsening of symptoms, or no noticeable improvement over the next 3-5 days Return if needed Straight to ER if any life threatening symptoms Prescriptions: predniSONE [Deltasone 10mg tablet] 10 mg PO BID 3 Days #6 tab Transmission Status: Received by [facility] #[id number] Referrals: Michaela Sousa APRN [Primary Care Provider] - As needed Time of Disposition: 19:30 Medical Decision Making - Federico Inquiry Pt receiving controlled substance: No Federico was queried for this patient: No Vital Signs: 07/03/21 18:42 Temperature 98.6 F Temperature Source Oral Pulse Rate [Left Radial] 86 Respiratory Rate 19 Blood Pressure [Left Arm] 141/93 H Blood Pressure Mean [Left Arm] 109 02 Sat by Pulse Oximetry 99 Medical Decision Narrative: Patient states that she has been seeing PCP for this pain and was started on a gel' to help with the pain but tonight it is hurting worse and she wanted to see if she could get a steriod shot in it and get another brace to help discussed xray and she declined states that she did not do anything to hurt it and is awaiting MRI [facility] [place] - General Stated complaint: AO fall injured L knee Time Seen by Provider: 07/03/21 18:52 Mode of Arrival: Ambulatory Source of Information: Patient Limitations: No Limitations Description of Symptoms (Recalled from Triage Doc. by RN): c/o ongoing left knee pain HEENT Symptoms (Recalled from RN notes): No Resp Symptoms (Recalled from RN notes): No Skin Symptoms (Recalled from RN notes): No MS Symptoms (Recalled from RN notes): Yes (lt knee pain) Functional Status (Recalled from RN notes): n/a - History of Present Illness Provider Complaint: Patient states that she has had a previous knee injury and surgery States that she has been seeing her PCP States that she was recently started on new gel/cream and earlier she started having more pain States that she is currently awaiting MRI and wanted to see if she could get a brace and see if she could get something like a steriod shot in her knee to help - Related Data Home Medications Medication Instructions Recorded Confirmed Omeprazole [Omeprazole 20mg 40 mg PO BID 12/07/17 10/16/18 Capsule] Ondansetron [Zofran 4mg ODT] 4 mg PO Q6HP PRN 12/07/17 10/16/18 Gabapentin [Gabapentin 100mg Cap] 300 mg PO BID 02/17/18 10/16/18 Ubidecarenone [Coenzyme Q10] 10 mg PO DAILY 02/17/18 03/21/20 Melatonin 15 mg PO DAILY 05/29/18 10/16/18 Mirtazapine [Remeron] 30 mg PO DAILY 08/13/18 10/16/18 Potassium 99 mg PO DAILY 08/26/18 10/16/18 Ondansetron [Zofran 4mg ODT] 4 mg PO DAILY 10/16/18 10/16/18 Previous Rx's Medication Instructions Recorded Oseltamivir Phosphate [Tamiflu 75 mg PO BID #10 cap 12/04/19 75mg Capsule] Azithromycin [Z-Tank 250mg Tab*] 250 mg PO UD DOSE PK #6 tab 12/06/19 Albuterol Sulfate [Proventil-HFA 1 - 2 puffs IH Q4HP PRN 10 Days #1 12/08/19 90mcg/puff Inh] inh Cefdinir [Omnicef 300mg Capsule] 300 mg PO BID #20 cap 12/08/19 Nystatin [Nystatin Susp 500,000 10 ml PO QID 10 Days #480 udc 12/08/19 Units/5mL Udc] predniSONE [Deltasone 10mg tablet] 10 mg PO BID 3 Days #6 tab 07/03/21 Allergies A
[2021-07-03 19:39] VITALS: BP 133/87; PULSE 78; RESP 22; TEMP 36.9; O2SAT 100
== END 2021-07-03 19:39 | disposition home or self-care (01) ==
PROVIDERS: Emergency Provider Nurse Practitioner; PCP Nurse Practitioner Family
DX: M25.562 Pain in left knee (principal); I10 Essential (primary) hypertension; W19.XXXA Unspecified fall, initial encounter
CPT/HCPCS: 99202; G0463

== ENCOUNTER 2021-07-18 09:12 | Emergency (ER) | payer OTHER, SELFPAY ==
[2021-07-18 09:31] VITALS: BP 117/80; PULSE 84; RESP 18; TEMP 36.8; O2SAT 98; BMI 27.3
--- NOTE | 2021-07-18 09:46 | HMH.EDUTC ---
[facility] [place] Impression: Upper respiratory infection Qualifiers: URI type: unspecified viral URI Qualified Code(s): J06.9 - Acute upper respiratory infection, unspecified Disposition: Home, Self-Care Condition on Discharge: Good Instructions: Preventing the Spread of Coronavirus Discharge Instructions Additional Instructions: You have been tested for COVID19. Please isolate yourself as if you are positive until test results received. Referrals: Michaela Sousa APRN [Primary Care Provider] - Time of Disposition: 09:58 Medical Decision Making - Federico Inquiry Pt receiving controlled substance: No Vital Signs: 07/18/21 09:31 Temperature 98.3 F Temperature Source Oral Pulse Rate [Brachial] 84 Respiratory Rate 18 Blood Pressure [Right Arm] 117/80 Blood Pressure Mean [Right Arm] 92 Blood Pressure Source [Right Arm] Automatic Cuff Blood Pressure Position [Right Arm] Sitting 02 Sat by Pulse Oximetry 98 Oxygen Delivery Method Room Air - Lab Data Lab results reviewed: Yes: I reviewed the patient's lab results. Orders (Tests/Meds): ORDERS Category Date Time Status Covid-19 Nasal PCR ([facility]) Routine Lab 07/18/21 09:[address] [facility] [place] - General Stated complaint: possible sinus infection Time Seen by Provider: 07/18/21 09:51 Mode of Arrival: Ambulatory Source of Information: Patient Limitations: No Limitations Description of Symptoms (Recalled from Triage Doc. by RN): sob. BODY ACHES. sore throat. fever HEENT Symptoms (Recalled from RN notes): Yes Resp Symptoms (Recalled from RN notes): Yes Skin Symptoms (Recalled from RN notes): No MS Symptoms (Recalled from RN notes): Yes Functional Status (Recalled from RN notes): yes - History of Present Illness Provider Complaint: Patient has been feeling poorly for one week. Has had popping in ears, runny nose, scratchy throat. [place] a bit more short of breath this am. Has been on Amoxil following a dental procedure and it has had no effect, so she would like to ensure she does not have COVID. Two weeks ago while ordering a protein shake she states the person standing next to her commented that they could not taste or smell. Onset (ago): week(s) (1) Relieving factors: none Exacerbating factors: none Associated symptoms: shortness of breath Treatments prior to arrival: none - Related Data Home Medications Medication Instructions Recorded Confirmed Acetaminophen [Tylenol 500mg 500 mg PO NEEDED PRN 07/18/21 07/18/21 tablet] Amoxicillin [Amoxicillin 500mg Tab] 500 mg PO DAILY 07/18/21 07/18/21 Cariprazine HCl [Vraylar] 1.5 mg PO DAILY 07/18/21 07/18/21 Citalopram Hydrobromide [Celexa] 10 mg PO DAILY 07/18/21 07/18/21 Allergies Allergy/AdvReac Type Severity Reaction Status Date / Time coconut Allergy Unknown Anaphylaxis Verified 07/18/21 09:27 latex [LATEX] Allergy Unknown Unknown Verified 07/18/21 09:27 allergy reaction Pertussis Vaccines Allergy Unknown Unknown Verified 07/18/21 09:27 [PERTUSSIS VACCINES] allergy reaction pineapple [PINEAPPLE] Allergy Unknown Unknown Verified 07/18/21 09:27 allergy reaction Sulfa (Sulfonamide Allergy Unknown Unknown Verified 07/18/21 09:27 Antibiotics) allergy [SULFA (SULFONAMIDE reaction ANTIBIOTICS)] celecoxib [From Celebrex] Allergy Anaphylaxis Verified 07/18/21 09:27 dicyclomine [From Bentyl] AdvReac Verified 07/18/21 09:27 ketamine AdvReac Verified 07/18/21 09:27 - Worker's Comp Is this a Worker's Comp case?: No Is this an H Worker's Comp?: No Is this a [place] Worker's Comp?: No [facility] History - Hepatitis A Screen Drug use history?: No High risk sexual behaviors?: No History of sexually transmitted infection?: No Currently employed?: No Childcare worker?: No Do you have indoor plumbing?: No Do you have electricity?: No Attestation statement:: This patient has been screened for Hepatitis A risk factors. I have review
[2021-07-18 10:17] VITALS: BP 117/80; PULSE 84; RESP 18; TEMP 36.8
== END 2021-07-18 10:19 | disposition home or self-care (01) ==
PROVIDERS: Emergency Provider Physician Assistant; PCP Nurse Practitioner Family
DX: J06.9 Acute upper respiratory infection, unspecified (principal); Z20.822 Contact with and (suspected) exposure to COVID-19; Z88.2 Allergy status to sulfonamides
CPT/HCPCS: 99202; C9803; G0463; U0003; U0005

== ENCOUNTER → 2021-08-02 07:49 | Outpatient (CLI) | payer OTHER, SELFPAY ==
--- NOTE | 2021-08-02 07:55 | MR_ITS ---
PROCEDURE INFORMATION: Exam: MR Left Lower Extremity Joint Without Contrast, Knee Exam date and time: 08/02/2021 7:55 AM Age: 31 years old Clinical indication: Pain; Knee; Left; Additional info: Injury of left knee TECHNIQUE: Imaging protocol: MR of the Left lower extremity joint without contrast. Exam focused on the knee. COMPARISON: CR XR KNEE LT 3V 06/26/2021 12:02 PM FINDINGS: Bones and cartilage: No visualized acute marrow edema, acute fracture, or dislocation. Joint spaces: Small patellofemoral joint effusion. Bursae: Small amount of fluid within the deep infrapatellar bursa. No significant Corona's cyst. 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 The anterior horn of the medial meniscus is small in size. No definitive tear contacting an articulating surface. Lateral meniscus: No visualized tear. Anterior cruciate ligament: No tear. Posterior cruciate ligament: No tear. Medial capsule and supporting structures: Unremarkable. No tear. Lateral capsule and supporting structures: Unremarkable. No tear. Extensor mechanism of knee: Mild tendinosis of the distal patellar tendon. No visualized tear of the distal quadriceps tendon. Muscles: No visualized acute abnormality. Soft tissues: Unremarkable. IMPRESSION: 1. Mild tendinosis of the distal patellar tendon. 2. 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 No definitive tear. 3. Small patellofemoral joint effusion. 4. Additional findings described above.
== END ==
PROVIDERS: PCP Nurse Practitioner Family; Visit Provider Nurse Practitioner Family
DX: S89.92XA Unspecified injury of left lower leg, initial encounter (principal); Z98.890 Other specified postprocedural states
CPT/HCPCS: 73721

== ENCOUNTER → 2022-03-05 11:43 | Outpatient (CLI) | payer BC, SELFPAY ==
--- NOTE | 2022-03-05 | CA_ITS ---
FINAL REPORT TECHNIQUE: Sonographic images of the veins of the left upper extremity were obtained from axilla to antecubital fossa. Additionally, images of the internal jugular vein and subclavian vein were also obtained. CLINICAL HISTORY: Lt arm intermitant swelling in axilla FINDINGS: The veins of the left upper extremity are compressible from axilla to antecubital fossa. Blood flow is demonstrated by both color and spectral Doppler as well. The internal jugular vein and subclavian vein are also patent. IMPRESSION: No evidence of venous thrombosis of the left upper extremity. Reviewed, Interpreted and Dictated by Darrell Barboza III, MD Transcribed by Suki Subramanian Authenticated and [facility]
== END ==
PROVIDERS: PCP Nurse Practitioner Family; Visit Provider Nurse Practitioner Family
DX: M79.89 Other specified soft tissue disorders (principal); R74.8 Abnormal levels of other serum enzymes
CPT/HCPCS: 93971

== ENCOUNTER 2022-05-15 18:43 | Emergency (ER) | payer BC, SELFPAY ==
[2022-05-15 18:44] VITALS: BP 125/75; PULSE 84; RESP 16; TEMP 36.8; O2SAT 98; BMI 24.3
--- NOTE | 2022-05-15 18:58 | XR_ITS ---
PROCEDURE INFORMATION: Exam: XR Chest Exam date and time: 05/15/2022 8:00 PM Age: 32 years old Clinical indication: Other: Nausea; Additional info: Nausea, vomiting TECHNIQUE: Imaging protocol: Radiologic exam of the chest. Views: 1 view. COMPARISON: CR XR CHEST 2V 02/29/2020 11:39 AM FINDINGS: Lungs: No consolidation. Pleural spaces: No pneumothorax. Heart/Mediastinum: No cardiomegaly. Bones/joints: Scoliosis. No fracture. IMPRESSION: No acute findings.
--- NOTE | 2022-05-15 18:59 | CT_ITS ---
PROCEDURE INFORMATION: Exam: CT Abdomen And Pelvis With Contrast Exam date and time: 05/15/2022 7:38 PM Age: 32 years old Clinical indication: Abdominal pain; Additional info: Abd pain TECHNIQUE: Imaging protocol: Computed tomography of the abdomen and pelvis with contrast. Radiation optimization: All CT scans at this facility use at least one of these dose optimization techniques: automated exposure control; mA and/or kV adjustment per patient size (includes targeted exams where dose is matched to clinical indication); or iterative reconstruction. Contrast material: ISOVUE; Contrast volume: 75 ml; Contrast route: IV; COMPARISON: CT ABDOMEN PELVIS WO CON 06/02/2021 12:42 PM FINDINGS: Liver: Normal. No mass. Gallbladder and bile ducts: Post cholecystectomy change. Pancreas: Normal enhancement. No ductal dilation. Spleen: No splenomegaly. Adrenal glands: No mass. Kidneys and ureters: No hydronephrosis. Stomach and bowel: Moderate to large stool burden within the colon. No bowel obstruction. Appendix: No evidence of appendicitis. Intraperitoneal space: No free air. No significant fluid collection. Vasculature: No abdominal aortic aneurysm. Lymph nodes: No enlarged lymph nodes. Urinary bladder: No acute abnormality. Reproductive: No acute abnormality. Bones/joints: Scoliosis. No acute fracture. Soft tissues: 12 mm fat containing periumbilical hernia. IMPRESSION: Moderate to large stool burden within the colon.
[2022-05-15 19:11] LABS: Basophils % 0.3 % (0.1-2.0); Eosinophils # 0.3 K/mm3 (0.0-0.4); Eosinophils % 4.5 % (0.1-12.0); Hematocrit 25.8 % (37.0-47.0); Hemoglobin 7.8 g/dL (12.2-16.2); Lymphocytes # 1.2 K/mm3 (0.7-4.5); Lymphocytes % 18.6 % (10-50); Mean Corpuscular HGB Conc 30.3 g/dL (31.8-35.4); Mean Corpuscular Hemoglobin 22.3 pg (27.0-31.2); Mean Corpuscular Volume 73.4 fl (81-99); Mean Platelet Volume 7.8 fl (7.4-10.4); Monocytes # 0.4 K/mm3 (0.1-1.0); Monocytes % 7.2 % (1.7-9.3); Neutrophils # 4.3 K/mm3 (1.8-7.8); Neutrophils % 69.4 % (37.0-80.0); Platelet Count 340 K/mm3 (142-424); Red Blood Count 3.51 M/mm3 (4.20-5.40); White Blood Count 6.2 K/mm3 (4.8-10.8)
[2022-05-15 19:15] LABS: Microscopic, Urine URINE MICROSCOPIC (MICROSCOPIC)
[2022-05-15 19:16] VITALS: BP 120/79; BP 127/79; BP 133/90; PULSE 111; PULSE 116
[2022-05-15 19:16] LABS: Appearance,Urine CLEAR (Clear); Bilirubin,Urine Negative (Negative); Blood, Urine Negative (Negative); Color,Urine YELLOW (Yellow); Glucose,Urine (UA) Negative (Negative); Ketones,Urine Negative (Negative); Leukocyte Esterase,Urine Negative (Negative); Nitrate,Urine Negative (Negative); Protein,Urine Negative (Negative); Specific Gravity, Urine 1.015 (1.005-1.030); Urobilinogen,Urine 0.2 EU/dl (0.2)
[2022-05-15 19:17] LABS: Alanine Aminotransferase 23 U/L (12-78); Albumin Level 3.9 g/dl (3.5-5.0); Albumin/Globulin Ratio 1.3 (1.1-1.8); Alkaline Phosphatase 123 U/L (38-126); Anion Gap 9.3 mEq/L (5-15); Aspartate Amino Transferase 39 U/L (14-36); Blood Urea Nitrogen 10 mg/dl (7-17); Calcium 8.7 mg/dl (8.4-10.2); Carbon Dioxide 29 mmol/L (22.0-30.0); Chloride 103 mmol/L (98-107); Creatinine Clearance Estimated 121 mL/min (50-200); Estimated Glomerular Filt Rate 84 ml/min (>60); GFR (African American) 102 ML/MIN (>60); Glucose 102 mg/dl (74-100); Lipase 51 U/L (23-300); Potassium 3.3 mmoL/L (3.5-5.1); Sodium 138 mmol/L (136-145); Total Protein,Serum 6.9 g/dl (6.3-8.2)
[2022-05-15 19:23] LABS: C-Reactive Protein 68.5 mg/L (0-4)
[2022-05-15 19:26] LABS: HCG Qualitative, Serum Negative (Negative)
[2022-05-15 19:33] LABS: Amorphous Sediment,Urine 1+ /lpf; Bacteria,Urine Trace /lpf; Squamous Epithelial Cell,Urine Occasional #/hpf (0-5); Triple Phosphate Crystal,Urine 1+ /lpf
[2022-05-15 19:34] LABS: Bilirubin,Total < 0.1 mg/dl (0.2-1.3)
--- NOTE | 2022-05-15 20:06 | PC.NURSE ---
PT ambulatory to bathroom with no assistance
[2022-05-15 20:10] LABS: Erythrocyte Sedimentation Rate 29 mm/hr (0-20)
[2022-05-15 20:27] VITALS: BP 125/79; PULSE 95; RESP 16
[2022-05-15 20:34] LABS: Lactic Acid 0.8 mmol/L (0.7-2.1)
--- NOTE | 2022-05-15 20:37 | PC.NURSE ---
at speaking with pt about POC
--- NOTE | 2022-05-15 20:44 | HMH.EDGIBL ---
ED Disposition Clinical Impression: Upper gastrointestinal bleeding Anemia Qualifiers: Anemia type: unspecified type Qualified Code(s): D64.9 - Anemia, unspecified Disposition: Left Against Medical Advice Condition on Discharge: Good Instructions: DI for Gastritis Additional Instructions: use meds and recheck if needed Prescriptions: Sucralfate [Carafate 1gm Tab] 1 gm PO ACHS #30 tab Transmission Status: [facility] Pantoprazole Sodium [Protonix 40mg tablet] 40 mg PO BID #60 tab Transmission Status: Pending to [facility] Referrals: Michaela Sousa APRN [Primary Care Provider] - - Critical Care Critical Care Time: No Attestation: On 05/15/22, the high probability of a clinically significant, sudden or life threatening deterioration of the following system(s) required my full and direct attention, intervention and personal management. The time I documented below is in addition to time spent performing reported procedures but includes the following listed in this critical care notation. Medical Decision Making - Medical Records Medical records reviewed: Yes: I reviewed the patient's medical records. - Federico Inquiry Pt receiving controlled substance: No Vital Signs: 05/15/22 18:44 05/15/22 19:16 Temperature 98.3 F Temperature Source Oral Pulse Rate [Orthostatic Lying Left] 111 H Pulse Rate [Orthostatic Sitting] 116 H Pulse Rate [Orthostatic Standing] 111 H Pulse Rate [Radial] 84 Respiratory Rate 16 Blood Pressure [Orthostatic Lying Left Arm] 127/79 Blood Pressure [Orthostatic Sitting] 133/90 Blood Pressure [Orthostatic Standing] 120/79 Blood Pressure [Right Arm] 125/75 Blood Pressure Mean [Right Arm] 91 Blood Pressure Position [Right Arm] Sitting 02 Sat by Pulse Oximetry 98 Oxygen Delivery Method Room Air - Lab Data Lab results reviewed: Yes: I reviewed the patient's lab results. Lab Results 05/15/22 19:00: WBC 6.2, RBC 3.51 L, Hgb 7.8 L, Hct 25.8 L, MCV 73.4 L, MCH 22.3 L, MCHC 30.3 L, RDW 19.0 H, Plt Count 340, MPV 7.8, Neut % (Auto) 69.4, Lymph % (Auto) 18.6, [place] % (Auto) 7.2, Eos % (Auto) 4.5, Baso % (Auto) 0.3, Neut # (Auto) 4.3, Lymph # (Auto) 1.2, [place] # (Auto) 0.4, Eos # (Auto) 0.3, Baso # (Auto) 0.0 05/15/22 19:00: Sodium 138, Potassium 3.3 L, Chloride 103, Carbon Dioxide 29, Anion Gap 9.3, BUN 10, Creatinine 0.80, Estimated Creat Clear 121, Estimated GFR 84, Est GFR ( Amer) 102, Glucose 102 H, Calcium 8.7, Total Bilirubin < 0.1 L, AST 39 H, ALT 23, Alkaline Phosphatase 123, C-Reactive Protein 68.5 H, Total Protein 6.9, Albumin 3.9, Globulin 3.0, Albumin/Globulin Ratio 1.3, Lipase 51 05/15/22 19:00: Serum HCG, Qual Negative 05/15/22 19:00: ESR 29 H 05/15/22 19:11: Urine Color Yellow, Urine Appearance Clear, Urine pH 7.0, Ur Specific [place] 1.015, Urine Protein Negative, Urine Glucose (UA) Negative, Urine Ketones Negative, Urine Blood Negative, Urine Nitrate Negative, Urine Bilirubin Negative, Urine Urobilinogen 0.2, Ur Leukocyte Esterase Negative, Urine RBC None, Urine WBC None, Ur Squamous Epith Cells Occasional, Triple Phos Crystals 1+, Amorphous Sediment 1+, Urine Bacteria Trace 05/15/22 20:13: Lactate 0.8 05/15/22 21:00: Stool Occult Blood Negative Result diagrams: 05/15/22 19:00 05/15/22 19:00 Orders (Tests/Meds): ED MEDICATIONS Generic Name Dose Route Start Last Admin Trade Name Freq PRN Reason Stop Dose Admin Sodium Chloride 1,000 mls @ 999 mls/hr 05/15/22 19:15 05/15/22 19:26 Sod Chlor 0.9% 1000ml Bag IV 05/15/22 20:15 999 mls/hr .Q1H1M JOSSE Administration Sodium Chloride 8 ml 05/15/22 19:09 Sodium Chloride 0.9% 10ml Vial IV 06/14/22 19:08 NEEDED PRN dilute pepcid Discontinued Medications Generic Name Dose Route Start Last Admin Trade Name Freq PRN Reason Stop Dose Admin Famotidine 20 mg 05/15/22 19:09 05/15/22 19:26 Famotidine 20mg/2ml Vial IV 05/15/22 19:10 20 mg
[2022-05-15 21:04] LABS: Occult Blood,Stool Negative (Negative)
--- NOTE | 2022-05-15 21:04 | PC.NURSE ---
OCCULT STOOL OBTAINED.
--- NOTE | 2022-05-15 21:22 | PC.NURSE ---
PATIENT REQUESTING TO GO HOME. DR. POST IN WITH PATIENT DISCUSSED LOW H & H, AND AMA PATIENT VERBALIZED UNDERSTANDING. RISKS EXPLAINED TO PATIENT. PATIENT REPORTS SON FIRST BIRTHDAY TOMORROW AND SHE WANTED TO GO HOME. AGREED TO RETURN FOR FURTHER PROBLEMS.
[2022-05-15 21:32] VITALS: BP 120/81; PULSE 91; RESP 16; TEMP 36.8; O2SAT 98
== END 2022-05-15 21:33 | disposition left against medical advice (07) ==
PROVIDERS: Emergency Medicine; Emergency Provider Emergency Medicine; PCP Nurse Practitioner Family
DX: K92.2 Gastrointestinal hemorrhage, unspecified (principal); D64.9 Anemia, unspecified; Z87.19 Personal history of other diseases of the digestive system; I49.9 Cardiac arrhythmia, unspecified; Z83.3 Family history of diabetes mellitus; Z82.49 Family history of ischemic heart disease and other diseases of the circulatory system
CPT/HCPCS: 71045; 74177; 80053; 81001; 82272; 83605; 83690; 84703; 85025; 85651; 86140; 96365; 96375; 99285; G0328; J2405; Q9967

== ENCOUNTER 2022-07-18 08:29 | Emergency (ER) | payer BC, SELFPAY ==
[2022-07-18 08:31] VITALS: BP 120/64; PULSE 87; RESP 18; TEMP 36.5; O2SAT 100; BMI 21.7
--- NOTE | 2022-07-18 08:53 | HMH.EDGENADL ---
Discharge Plan Disposition Patient Disposition: Home, Self-Care Condition: Good Prescriptions Prescriptions: New hydrocodone-acetaminophen 5-325 mg tablet 1 tab PO Q6H PRN (Reason: pain) Qty: 6 0RF No Action citalopram 10 MG tablet 10 mg PO DAILY acetaminophen 500 MG tablet 500 mg PO NEEDED PRN (Reason: pain) amoxicillin 500 MG tablet 500 mg PO DAILY cariprazine 1.5 MG capsule 1.5 mg PO DAILY pantoprazole 40 MG tablet,delayed release (DR/EC) 40 mg PO BID Qty: 60 0RF sucralfate 1 GM tablet 1 gm PO ACHS Qty: 30 0RF Referrals Follow up/Referrals: Darrell Ken MD [Staff Physician] - See instructions Provider,MD Dustin [Referring] - See instructions Activity Restrictions/Add. Instructions Additional Instructions/Restrictions: Change bandage and clean wound daily. Continue clindamycin. Follow-up with general surgery, Dr. Ken, call Wednesday to make appointment to be seen this week. Follow-up culture results when you see the surgeon. Return to the emergency department if fever greater than 100 degrees, red streaks, severe pain. Monroe as needed for pain. Additional instructions for CONTROLLED SUBSTANCES: You have been prescribed a medication that is a controlled substance. Controlled substances include pain medications known as opiates and sedative nerve medications known as benzodiazepines. Tramadol, fioricet, and gabapentin are also controlled substances. Some common opiates include: Codeine (such as Tylenol #3) Hydrocodone (Vicodin, Lortab, Lorcet, Monroe) Oxycodone (Percocet, Percodan, Oxycodone, Oxy IR) Some common benzodiazepines include: Diazepam (Valium) Lorazepam (Ativan) Alprazolam (Xanax) Clonazepam (Klonopin) Oxazepam (Serax) All of these controlled substances are highly addictive and frequently abused. Misuse can and frequently does lead to addiction as well as overdose and . Medication should be stored in a locked cabinet or other secure storage unit. Do not store the medication in a motor vehicle. Short term supplies, 3 days or less, are prescribed because of the highly addictive nature of the medication. Any of the controlled substance medication NOT taken should be disposed of properly and NOT SAVED. The recommended method of disposing of unused medications is: Place the medicines in a sealable plastic bag. If the medicine is a solid, crush it or add water to dissolve it. Add something undesirable (cat litter, coffee grounds, etc.) Dispose of sealed bag in household trash Do not flush or pour unused medicines down a sink or drain. Controlled substances should not be shared, given away or sold. Because of the addictive nature and frequent abuse, these medications are sometimes stolen. These medications should be kept in a safe place where they cannot be stolen. Do not keep them in your car or purse. Lost or stolen prescriptions for controlled substances WILL NOT BE REFILLED in this emergency department, regardless of whether a police report was filed. Clinical Impressions Clinical Impression: Brown recluse spider bite Instructions Patient Instructions: DI for Skin Abscess Discharge ED Provider: Neo Irby General Adult HPI General Chief complaint: Skin/Abscess/Foreign Body Stated complaint: sore on left leg Time Seen by Provider: 07/18/22 08:45 Mode of Arrival: Ambulatory Source of Information: Patient Limitations: No Limitations Description of Symptoms (Recalled from ER Triage Doc. by RN): c/o fever and left lower inner calf spider bite over one week ago. Pt states she hit it causing it to open, she had brown puss come out and noticed that under scab it was black looking. Was seen at given po anitibiotics History of Present Illness HPI narrative: Patient states that she was bit by a brown recluse spider on the inner part of her left calf 1 week ago. Initially seen by her primary care provider, s
[2022-07-18 11:06] LABS: Basophils # 0.1 K/mm3 (0-0.2); Basophils % 0.9 % (0.1-2.0); Eosinophils # 0.3 K/mm3 (0.0-0.4); Hematocrit 28.8 % (37.0-47.0); Hemoglobin 8.7 g/dL (12.2-16.2); Lymphocytes % 28.5 % (10-50); Mean Corpuscular HGB Conc 30.3 g/dL (31.8-35.4); Mean Corpuscular Hemoglobin 22.6 pg (27.0-31.2); Mean Corpuscular Volume 74.6 fl (81-99); Monocytes # 0.5 K/mm3 (0.1-1.0); Monocytes % 6.9 % (1.7-9.3); Neutrophils # 4.2 K/mm3 (1.8-7.8); Neutrophils % 59.7 % (37.0-80.0); Platelet Count 432 K/mm3 (142-424); Red Blood Count 3.86 M/mm3 (4.20-5.40); Red Cell Distribution Width 17.6 % (11.5-17.5); White Blood Count 7.1 K/mm3 (4.8-10.8)
[2022-07-18 11:08] LABS: Chloride 102 mmol/L (98-107)
[2022-07-18 11:09] LABS: Potassium 3.7 mmoL/L (3.5-5.1); Sodium 138 mmol/L (136-145)
--- NOTE | 2022-07-18 11:09 | PC.NURSE ---
attempted multi IV with multi staff members, pt tolerated well.
[2022-07-18 11:11] LABS: Alanine Aminotransferase 12 U/L (12-78); Aspartate Amino Transferase 25 U/L (14-36); Bilirubin,Total 0.2 mg/dl (0.2-1.3); Blood Urea Nitrogen 12 mg/dl (7-17); Creatinine Clearance Estimated 140 mL/min (50-200); Estimated Glomerular Filt Rate 117 ml/min (>60); GFR (African American) 142 ML/MIN (>60)
[2022-07-18 11:12] LABS: Albumin Level 4.1 g/dl (3.5-5.0); Albumin/Globulin Ratio 1.4 (1.1-1.8); Alkaline Phosphatase 118 U/L (38-126); Anion Gap 14.7 mEq/L (5-15); Calcium 7.9 mg/dl (8.4-10.2); Carbon Dioxide 25 mmol/L (22.0-30.0); Glucose 100 mg/dl (74-100); Total Protein,Serum 7.1 g/dl (6.3-8.2)
--- NOTE | 2022-07-18 11:44 | PC.NURSE ---
Pt to restroom
[2022-07-18 12:37] LABS: Lactic Acid 0.6 mmol/L (0.7-2.1)
[2022-07-18 12:49] VITALS: BP 119/71; PULSE 80; RESP 18; O2SAT 98
[2022-07-18 12:52] VITALS: BP 119/71; PULSE 80; RESP 18; TEMP 36.5; O2SAT 98
== END 2022-07-18 12:53 | disposition home or self-care (01) ==
PROVIDERS: Emergency Provider Emergency Medicine; PCP Nurse Practitioner Family
DX: T63.331A Toxic effect of venom of brown recluse spider, accidental (unintentional), initial encounter (principal); R50.9 Fever, unspecified; Z79.1 Long term (current) use of non-steroidal anti-inflammatories (NSAID); Z79.899 Other long term (current) drug therapy; Z88.2 Allergy status to sulfonamides; Z88.7 Allergy status to serum and vaccine; Z88.8 Allergy status to other drugs, medicaments and biological substances; Z91.040 Latex allergy status; Z91.018 Allergy to other foods
CPT/HCPCS: 11000; 80053; 83605; 85025; 87040; 87070; 87077; 87186; 87205; 96374; 99284

== ENCOUNTER → 2022-09-14 18:11 | Outpatient (CLI) | payer BC, SELFPAY | PROVIDERS: PCP Nurse Practitioner Family; Visit Provider Nurse Practitioner Family | DX: M79.89 Other specified soft tissue disorders (principal) ==

== ENCOUNTER → 2022-10-23 10:08 | Outpatient (CLI) | payer BC, SELFPAY ==
[2022-10-23 10:36] LABS: Basophils % 0.5 % (0.1-2.0); Eosinophils % 0.2 % (0.1-12.0); Hematocrit 30.8 % (37.0-47.0); Hemoglobin 9.4 g/dL (12.2-16.2); Lymphocytes # 0.4 K/mm3 (0.7-4.5); Lymphocytes % 5.3 % (10-50); Mean Corpuscular HGB Conc 30.5 g/dL (31.8-35.4); Mean Corpuscular Hemoglobin 21.6 pg (27.0-31.2); Mean Corpuscular Volume 70.9 fl (81-99); Monocytes # 0.3 K/mm3 (0.1-1.0); Monocytes % 3.2 % (1.7-9.3); Neutrophils # 7.2 K/mm3 (1.8-7.8); Neutrophils % 90.9 % (37.0-80.0); Platelet Count 338 K/mm3 (142-424); Red Blood Count 4.34 M/mm3 (4.20-5.40); Red Cell Distribution Width 17.8 % (11.5-17.5); White Blood Count 7.9 K/mm3 (4.8-10.8)
[2022-10-23 10:38] LABS: MANUAL DIFFERENTIAL MANUAL DIFFERENTIAL (MANUAL DIFF)
[2022-10-23 10:48] LABS: Anisocytosis 1+; Hypochromasia 1+; Lymphocytes % 5 % (10-50); Microcytosis 1+; Monocytes % 2 % (2-9); Neutrophils % 93 % (42-76); Ovalocytes 1+; Total Cells Counted 100
[2022-10-23 10:49] LABS: Platelet Estimate Normal; Target Cells 1+
[2022-10-23 11:13] LABS: Chloride 110 mmol/L (98-107); Potassium 4.2 mmoL/L (3.5-5.1); Sodium 145 mmol/L (136-145)
[2022-10-23 11:16] LABS: Alanine Aminotransferase 32 U/L (12-78); Albumin Level 4.7 g/dl (3.5-5.0); Albumin/Globulin Ratio 1.4 (1.1-1.8); Alkaline Phosphatase 135 U/L (38-126); Anion Gap 15.2 mEq/L (5-15); Aspartate Amino Transferase 29 U/L (14-36); Bilirubin,Total 0.2 mg/dl (0.2-1.3); Blood Urea Nitrogen 6 mg/dl (7-17); Calcium 8.9 mg/dl (8.4-10.2); Carbon Dioxide 24 mmol/L (22.0-30.0); Estimated Glomerular Filt Rate 145 ml/min (>60); GFR (African American) 175 ML/MIN (>60); Globulin 3.3 g/dL (1.3-3.2); Glucose 95 mg/dl (74-100)
--- NOTE | 2022-10-23 13:32 | CT_ITS ---
FINAL REPORT TECHNIQUE: Axial CT images of the abdomen and pelvis were obtained without intravenous contrast. Coronal reformatted images were also obtained.This study was performed with techniques to keep radiation doses as low as reasonably achievable (ALARA). Individualized dose reduction techniques using automated exposure control or adjustment of mA and/or kV according to the patient's size were employed. CLINICAL HISTORY: RT NEPHROLITHIASIS,RT FLANK PAIN, diagnosed with kidney stone Oct 16, 2022 COMPARISON: 05/15/2022 FINDINGS: Abdomen: Lung bases are clear. There are postoperative changes from cholecystectomy. Liver, spleen, pancreas and adrenal glands have a normal CT appearance in their limited unenhanced state. Abdominal portion of the bowel is unremarkable. The kidneys show tiny nonobstructing right renal stones measuring 2 mm or less. No obvious renal mass is present. No ureteral stones are present. Pelvis: Appendix is normal. The uterus and ovaries are unremarkable. No distal ureteral stones are seen. Bladder is unremarkable. No fluid collection or adenopathy is seen. IMPRESSION: 1. Minimal right nephroliths without obstructing stone disease or hydronephrosis. 2. No bowel obstruction or appendicitis. Reviewed, Interpreted and Dictated by Jose De Jesus Rodriguez MD Transcribed by Suki Subramanian Authenticated and [facility]
== END ==
LOC: RAD 10:09
PROVIDERS: PCP Nurse Practitioner Family; Visit Provider Nurse Practitioner Family
DX: R10.9 Unspecified abdominal pain (principal); R20.0 Anesthesia of skin
CPT/HCPCS: 36415; 74176; 80053; 85007; 85025

== ENCOUNTER 2022-11-28 22:00 | Emergency (ER) | payer BC, SELFPAY ==
[2022-11-28 22:00] VITALS: BP 116/68; PULSE 74; RESP 17; TEMP 36.6; O2SAT 99; BMI 22.8
--- NOTE | 2022-11-28 22:25 | XR_ITS ---
PROCEDURE INFORMATION: Exam: XR Left Knee Exam date and time: 11/29/2022 12:01 AM Age: 32 years old Clinical indication: Injury or trauma; Fall TECHNIQUE: Imaging protocol: Radiologic exam of the left knee. Views: 3 views. COMPARISON: MR KNEE LT WO CON 08/02/2021 8:06 AM FINDINGS: Bones/joints: Normal. Soft tissues: Normal. IMPRESSION: No acute findings.
--- NOTE | 2022-11-28 22:25 | XR_ITS ---
PROCEDURE INFORMATION: Exam: XR Chest Exam date and time: 11/29/2022 12:01 AM Age: 32 years old Clinical indication: Injury or trauma; Fall TECHNIQUE: Imaging protocol: Radiologic exam of the chest. Views: 1 view. COMPARISON: CR XR CHEST PORTABLE 05/15/2022 8:00 PM FINDINGS: Lungs: Unremarkable. No consolidation. Pleural spaces: Unremarkable. No pleural effusion. No pneumothorax. Heart/Mediastinum: Unremarkable. No cardiomegaly. Bones/joints: Unremarkable. IMPRESSION: No acute findings.
--- NOTE | 2022-11-28 22:25 | XR_ITS ---
PROCEDURE INFORMATION: Exam: XR Pelvis Exam date and time: 11/29/2022 12:01 AM Age: 32 years old Clinical indication: Injury or trauma; Fall TECHNIQUE: Imaging protocol: Radiologic exam of the pelvis. Views: 1 or 2 view. COMPARISON: CT ABDOMEN PELVIS WO CON 10/23/2022 1:42 PM FINDINGS: Bones/joints: Unremarkable. No acute fracture. Soft tissues: Unremarkable. IMPRESSION: No acute findings.
--- NOTE | 2022-11-28 22:26 | PC.NURSE ---
Labs delayed d/t pt being a difficult stick. 2 RNs, 2 Paramedics have attempted without success. supervisor insulation at bedside at this time to attempt. Lab has been notified for assistance.
--- NOTE | 2022-11-28 22:30 | PC.NURSE ---
Dr. Betancourt at BS speaking with pt
[2022-11-28 22:43] LABS: Basophils # 0.1 K/mm3 (0-0.2); Eosinophils # 0.5 K/mm3 (0.0-0.4); Eosinophils % 4.6 % (0.1-12.0); Hematocrit 29.2 % (37.0-47.0); Hemoglobin 9.3 g/dL (12.2-16.2); Lymphocytes # 2.3 K/mm3 (0.7-4.5); Lymphocytes % 21.9 % (10-50); Mean Corpuscular HGB Conc 31.9 g/dL (31.8-35.4); Mean Corpuscular Hemoglobin 22.3 pg (27.0-31.2); Mean Corpuscular Volume 69.9 fl (81-99); Mean Platelet Volume 7.5 fl (7.4-10.4); Monocytes # 0.5 K/mm3 (0.1-1.0); Monocytes % 5.1 % (1.7-9.3); Neutrophils # 6.9 K/mm3 (1.8-7.8); Neutrophils % 67.3 % (37.0-80.0); Platelet Count 351 K/mm3 (142-424); Red Blood Count 4.18 M/mm3 (4.20-5.40); Red Cell Distribution Width 21.7 % (11.5-17.5); White Blood Count 10.2 K/mm3 (4.8-10.8)
[2022-11-28 22:48] LABS: Microscopic, Urine URINE MICROSCOPIC (MICROSCOPIC)
[2022-11-28 22:49] LABS: Alanine Aminotransferase 16 U/L (12-78); Albumin Level 4.3 g/dl (3.5-5.0); Albumin/Globulin Ratio 1.4 (1.1-1.8); Alkaline Phosphatase 116 U/L (38-126); Amylase 80 U/L (30-110); Anion Gap 10.6 mEq/L (5-15); Aspartate Amino Transferase 33 U/L (14-36); Bilirubin,Total 0.4 mg/dl (0.2-1.3); Blood Urea Nitrogen 14 mg/dl (7-17); Calcium 8.6 mg/dl (8.4-10.2); Carbon Dioxide 26 mmol/L (22.0-30.0); Chloride 107 mmol/L (98-107); Creatinine Clearance Estimated 152 mL/min (50-200); Estimated Glomerular Filt Rate 117 ml/min (>60); GFR (African American) 142 ML/MIN (>60); Globulin 3.1 g/dL (1.3-3.2); Glucose 93 mg/dl (74-100); Lactic Acid 0.6 mmol/L (0.7-2.1); Lipase 67 U/L (23-300); Potassium 4.6 mmoL/L (3.5-5.1); Sodium 139 mmol/L (136-145); Total Protein,Serum 7.4 g/dl (6.3-8.2)
[2022-11-28 22:49] LABS: Appearance,Urine CLEAR (Clear); Bilirubin,Urine Negative (Negative); Blood, Urine Negative (Negative); Color,Urine YELLOW (Yellow); Glucose,Urine (UA) Negative (Negative); Ketones,Urine Negative (Negative); Leukocyte Esterase,Urine Negative (Negative); Nitrate,Urine Negative (Negative); PH,Urine 6.5 (5.0-8.5); Protein,Urine Negative (Negative); Urobilinogen,Urine 0.2 EU/dl (0.2)
--- NOTE | 2022-11-28 22:50 | PC.NURSE ---
Pt able to obtain urine sample with use of bed barrera. No other needs at this time.
--- NOTE | 2022-11-28 22:52 | HMH.EDSEIZ ---
Discharge Plan Disposition Patient Disposition: Xfer Short-Term Hosp Chief Complaint: Seizure Prescriptions Prescriptions: No Action ciprofloxacin HCl 500 mg tablet 500 mg PO BID ondansetron 8 mg tablet,disintegrating 8 mg PO Q8HP PRN (Reason: Nausea) Label Comments: DISSOLVE ONE TABLET IN MOUTH (ON TOP OF THE TONGUE) EVERY 8 HOURS DIRECTED tamsulosin 0.4 mg capsule 0.4 mg PO HS gabapentin 300 mg capsule 300 mg PO TID Label Comments: TAKE ONE CAPSULE BY MOUTH THREE TIMES DAILY MAY CAUSE DROWSINESS hydroxyzine HCl 25 mg tablet 25 mg PO HS Label Comments: TAKE ONE TABLET BY MOUTH EVERY DAY AT BEDTIME escitalopram oxalate 20 mg tablet 20 mg PO DAILY Label Comments: TAKE ONE TABLET BY MOUTH EVERY DAY AT BEDTIME sucralfate 1 GM tablet 1 gm PO ACHS pantoprazole 40 MG tablet,delayed release (DR/EC) 40 mg PO BID acetaminophen 500 MG tablet 500 mg PO NEEDED PRN (Reason: pain) Referrals Follow up/Referrals: Michaela Sousa APRN [Primary Care Provider] - See instructions Clinical Impressions Clinical Impression: Seizure-like activity Instructions Patient Instructions: DI for Seizure (Not Epilepsy/Seizure Disorder) Discharge ED Provider: [place] (ED)Sharath Seizures HPI General Chief Complaint: Seizure Stated Complaint: seizers Time Seen by Provider: 11/28/22 22:52 Mode of Arrival: EMS Source of Information: Patient, Spouse, EMS and Medical Record Limitations: No Limitations Description of Symptoms (Recalled from ER Triage Doc. by RN): Pt arrived via EMS d/t 2 seizures at home. Pt reports I had seizures 2 years ago and had to be admittedfor adrenal insufficency and they said that's why I had the seizures . Pt denies having any home medications for seizures. Pt reports an aura prior to seizure of marvin tastes in my mouth . Per EMS, pt was A&Ox4 when they arrived on scene. Pt now c/o L knee pain d/t hitting something while I was on the floor . She states the seizures were witnessed by her . He reports pt had a total of 6 seizures the longest lasting 2 minutes. And she would go stiff and then shake a little or a lot all over her body . He also states pt did not have any incontience of bladder or bowels. He also reports as he was walking pt to his car she went down and her knees buckled funny but her head and upper body never hit the ground . Pt c/o left knee pain. History of Present Illness HPI Narrative: pt/family report about 6 episodes of eye mov then assoc with stiffing and nonresp for about 2 min w/o t/c mov and no incont - no known fever/rash or trauma - has hx of yrs ago after steroids possible sz like activity but was felt to not be epilepsy - pt report tingling in face and copper taste in mouth - has lt knee pain assoc with prev event - discussed with who describes events and pt was unable to give details - has hx of migraine and anxiety but feels not related by pt - no drug use reported - no b/b incont- MD complaint: possible seizure Onset (ago): hour(s) Description of Episode: other (see above ) Witnessed: yes - by other ( ) Trauma: No Seizure History: none Place: home Possible Precipitating Event: none Associated symptoms: denies other symptoms Treatments prior to arrival: none Related Data Home Medications Medication Instructions Recorded Confirmed acetaminophen 500 mg tablet 500 mg PO NEEDED PRN pain 07/18/21 11/29/22 ciprofloxacin HCl 500 mg tablet 500 mg PO BID possible Infection 11/29/22 11/29/22 escitalopram oxalate 20 mg tablet 20 mg PO DAILY Anxiety 11/29/22 11/29/22 gabapentin 300 mg capsule 300 mg PO TID neuropathy 11/29/22 11/29/22 hydroxyzine HCl 25 mg tablet 25 mg PO HS Anxiety 11/29/22 11/29/22 ondansetron 8 mg disintegrating 8 mg PO Q8HP PRN Nausea 11/29/22 11/29/22 tablet pantoprazole 40 mg tablet,delayed 40 mg PO BID GI ulcers 11/29/22 11/29/22 release sucralfate 1 gram
[2022-11-28 22:55] LABS: C-Reactive Protein 2.6 mg/L (0-4)
[2022-11-28 23:00] VITALS: BP 122/85; PULSE 72; RESP 18; O2SAT 100
[2022-11-28 23:01] LABS: WBC,Urine Occasional #/hpf (0-3)
[2022-11-28 23:08] LABS: Procalcitonin 0.037 ng/mL (0.0-2.0)
--- NOTE | 2022-11-28 23:08 | CT_ITS ---
PROCEDURE INFORMATION: Exam: CT Head Without Contrast Exam date and time: 11/28/2022 11:46 PM Age: 32 years old Clinical indication: Other: Seizure; Additional info: Frequent seizures TECHNIQUE: Imaging protocol: Computed tomography of the head without contrast. Radiation optimization: All CT scans at this facility use at least one of these dose optimization techniques: automated exposure control; mA and/or kV adjustment per patient size (includes targeted exams where dose is matched to clinical indication); or iterative reconstruction. REPORTING DATA: Count of CT and Cardiac NM exams in prior 12 months: This patient has received 2 known CTs and 0 known cardiac nuclear medicine studies in the 12 months prior to the current study. COMPARISON: HEADWO CT head/brain wo con 10/16/2018 5:50 PM FINDINGS: Brain: Normal. No hemorrhage. Unremarkable white matter. No mass effect. Cerebral ventricles: No ventriculomegaly. Paranasal sinuses: Visualized sinuses are unremarkable. No fluid levels. Mastoid air cells: Visualized mastoid air cells are well aerated. Bones/joints: Unremarkable. No acute fracture. Soft tissues: Unremarkable. IMPRESSION: No acute intracranial abnormality.
[2022-11-28 23:09] LABS: Erythrocyte Sedimentation Rate 18 mm/hr (0-20)
--- NOTE | 2022-11-28 23:10 | PC.NURSE ---
Called lab to notify the need for further blood tests
[2022-11-28 23:17] LABS: Urine Pregnancy, HCG Qual. Negative (Negative)
--- NOTE | 2022-11-28 23:18 | PC.NURSE ---
lab at bedside. Pt states I feel like I am going to have another one [seizure]. MD states ok to given Ativan 1mg IVP.
--- NOTE | 2022-11-28 23:18 | PC.NURSE ---
LAB at to for blood drawn
[2022-11-28 23:19] LABS: Magnesium 1.8 mg/dl (1.6-2.3)
[2022-11-28 23:30] VITALS: BP 104/72; PULSE 76; RESP 22; O2SAT 99
--- NOTE | 2022-11-28 23:40 | PC.NURSE ---
Pt gone to RAD via stretcher
[2022-11-29] VITALS (9 sets, daily range): BP systolic 96–117; BP diastolic 60–85; PULSE 60–74; RESP 13–22; TEMP 36.6–36.7; O2SAT 94–100
--- NOTE | 2022-11-29 00:03 | PC.NURSE ---
Pt back from RAD
[2022-11-29 00:08] LABS: Coronavirus 19, PCR Not Detected (NotDetected); Influenza A, PCR Not Detected (NotDetected); Influenza B, PCR Not Detected (NotDetected)
--- NOTE | 2022-11-29 00:08 | PC.NURSE ---
Dr. Betancourt at BS speaking with pt
--- NOTE | 2022-11-29 00:21 | PC.NURSE ---
called staff to bedside d/t she's having another one . Staff at bedside, pt is stiff and eyelids fluttering. MD also at bedside. States we will start the process for transfer, calling now
--- NOTE | 2022-11-29 00:27 | PC.NURSE ---
called radiology to make disc of ct/xr for transfer
--- NOTE | 2022-11-29 00:30 | PC.NURSE ---
Dr. Betancourt speaking with Dr. Pryor at [facility]
--- NOTE | 2022-11-29 00:40 | PC.NURSE ---
Pt placed on wait list at
--- NOTE | 2022-11-29 00:48 | PC.NURSE ---
Waiting for call back from Dr. Mic Do with [facility]
--- NOTE | 2022-11-29 00:57 | PC.NURSE ---
Dr. Betancourt speaking with Dr. Do at [facility]
--- NOTE | 2022-11-29 01:10 | PC.NURSE ---
Pt accepted at [facility] by Dr. Do
--- NOTE | 2022-11-29 01:19 | PC.NURSE ---
Updated pt/ that she was accepted at [facility] by Dr. Do. We are waiting for a call back from the hospitalist at this time.
[2022-11-29 01:28] LABS: Barbiturates Screen,Urine Negative ng/ml (<200)
[2022-11-29 01:29] LABS: Benzodiazepines Screen,Urine Negative ng/ml (<200)
--- NOTE | 2022-11-29 01:29 | PC.NURSE ---
Dr. Betancourt on phone with [facility] with hospitalist.
[2022-11-29 01:30] LABS: Amphetamine/Metha Screen,Urine Negative ng/ml (<1000); Cannabinoid Screen,Urine Negative ng/ml (<50)
[2022-11-29 01:31] LABS: Cocaine Screen,Urine Negative ng/ml (<300)
[2022-11-29 01:32] LABS: Methadone Screen,Urine Negative ng/ml (<300); Opiate Screen,Urine Negative ng/ml (<300)
[2022-11-29 01:33] LABS: Phencyclidine Screen,Urine Negative ng/ml (<25)
--- NOTE | 2022-11-29 01:37 | PC.NURSE ---
[facility]
--- NOTE | 2022-11-29 03:02 | PC.NURSE ---
Called [facility] for a bed status update was advised that they had to get the room cleaned and then they would be calling us back with a bed assignment
--- NOTE | 2022-11-29 03:08 | PC.NURSE ---
Updated at this time. Pt sleeping. provided with recliner, pillow, and blankets. No other needs voiced at this time.
--- NOTE | 2022-11-29 04:21 | PC.NURSE ---
Called report to [facility] floor 5B ([phone]), s/w Koko. Also, called [facility] for transport.
[2022-11-30 20:06] LABS: Adrenocorticotropic Hormone <1.5 pg/mL (7.2-63.3)
== END 2022-11-29 05:05 | disposition short-term general hospital (02) ==
PROVIDERS: Emergency Provider Emergency Medicine; PCP Nurse Practitioner Family
DX: G40.89 Other seizures (principal)
CPT/HCPCS: 70450; 71045; 72170; 73562; 80053; 80305; 81001; 81025; 82024; 82150; 82533; 83605; 83690; 83735; 84145; 85025; 85651; 86140; 96361; 96374; 96375; 99285; C9803; J1953; J2405; U0003; U0005

== ENCOUNTER → 2022-12-24 10:13 | Outpatient (CLI) | payer BC, SELFPAY ==
--- NOTE | 2022-12-24 10:29 | XR_ITS ---
FINAL REPORT CLINICAL HISTORY: RENAL CALCULI,RT FLANK PAIN COMPARISON: None FINDINGS: A single supine view of the abdomen was obtained. There is no prior for comparison. There is a large amount of retained stool. Bowel gas pattern is otherwise unremarkable. No renal stones are identified. Pelvic calcifications are likely phleboliths. Osseous structures are within normal limits. IMPRESSION: Large amount of retained stool. Reviewed, Interpreted and Dictated by Ibis Martinez MD Transcribed by Aminata Lawler Authenticated and . [facility]
[2022-12-24 10:41] LABS: Basophils # 0.1 K/mm3 (0-0.2); Basophils % 0.7 % (0.1-2.0); Eosinophils # 0.6 K/mm3 (0.0-0.4); Eosinophils % 5.8 % (0.1-12.0); Hematocrit 30.5 % (37.0-47.0); Hemoglobin 9.1 g/dL (12.2-16.2); Lymphocytes # 1.3 K/mm3 (0.7-4.5); Mean Corpuscular HGB Conc 29.7 g/dL (31.8-35.4); Mean Corpuscular Hemoglobin 22.8 pg (27.0-31.2); Mean Corpuscular Volume 76.7 fl (81-99); Mean Platelet Volume 7.2 fl (7.4-10.4); Monocytes # 0.6 K/mm3 (0.1-1.0); Monocytes % 6.2 % (1.7-9.3); Neutrophils # 7.3 K/mm3 (1.8-7.8); Neutrophils % 74.3 % (37.0-80.0); Platelet Count 331 K/mm3 (142-424); Red Blood Count 3.97 M/mm3 (4.20-5.40); Red Cell Distribution Width 20.4 % (11.5-17.5); White Blood Count 9.8 K/mm3 (4.8-10.8)
[2022-12-24 11:25] LABS: Alanine Aminotransferase 18 U/L (12-78); Albumin Level 3.6 g/dl (3.5-5.0); Albumin/Globulin Ratio 1.3 (1.1-1.8); Alkaline Phosphatase 112 U/L (38-126); Aspartate Amino Transferase 24 U/L (14-36); Bilirubin,Total 0.3 mg/dl (0.2-1.3); Blood Urea Nitrogen 9 mg/dl (7-17); Carbon Dioxide 28 mmol/L (22.0-30.0); Chloride 103 mmol/L (98-107); Estimated Glomerular Filt Rate 117 ml/min (>60); GFR (African American) 142 ML/MIN (>60); Globulin 2.7 g/dL (1.3-3.2); Glucose 106 mg/dl (74-100); Sodium 138 mmol/L (136-145); Total Protein,Serum 6.3 g/dl (6.3-8.2)
== END ==
PROVIDERS: PCP Nurse Practitioner Family; Visit Provider Nurse Practitioner Family
DX: R10.9 Unspecified abdominal pain (principal); N20.0 Calculus of kidney; R30.0 Dysuria
CPT/HCPCS: 36415; 74018; 80053; 85025

== ENCOUNTER → 2023-01-12 09:38 | Outpatient (CLI) | payer BC, SELFPAY ==
--- NOTE | 2023-01-12 09:57 | CT_ITS ---
FINAL REPORT TECHNIQUE: Axial images through the abdomen and pelvis were performed without contrast. This study was performed with techniques to keep radiation doses as low as reasonably achievable, (ALARA). Individualized dose reduction techniques using automated exposure control or adjustment of mA and/or kV according to the patient's size were employed. CLINICAL HISTORY: KIDNEY STONES, PAIN IN BACK, BLOOD IN URINE COMPARISON: 10/23/2022 FINDINGS: ABDOMEN: The lung bases are clear. The heart size is normal. Limited images of the liver are unremarkable. The patient is status post cholecystectomy. The spleen is normal. No adrenal mass is identified. The aorta is normal in caliber. There is no significant free fluid or adenopathy. There are several small nonobstructing right renal stones. There is no hydronephrosis. PELVIS: The appendix is normal. No ureteral stones are identified. The urinary bladder is unremarkable. There is no significant free fluid or adenopathy. IMPRESSION: Right nephrolithiasis without hydronephrosis. Reviewed, Interpreted and Dictated by Darrell Barboza III, MD Transcribed by Ruby Garcia Authenticated and [facility]
== END ==
PROVIDERS: PCP Nurse Practitioner Family; Visit Provider Nurse Practitioner Family
DX: R10.9 Unspecified abdominal pain (principal)
CPT/HCPCS: 74176

== ENCOUNTER → 2023-02-24 17:56 | Outpatient (CLI) | payer BC, SELFPAY ==
[2023-02-24 18:06] LABS: COC Drug Screen Collection Only
== END ==
PROVIDERS: PCP Nurse Practitioner Family
DX: L60.0 Ingrowing nail (principal)

== ENCOUNTER 2023-03-10 14:15 | Emergency (ER) | payer BC, SELFPAY ==
[2023-03-10 14:16] VITALS: BP 100/67; PULSE 110; RESP 19; TEMP 37.1; O2SAT 98; BMI 24.3
--- NOTE | 2023-03-10 14:40 | PC.NURSE ---
ED MD AT BEDSIDE FOR EVALUATION
--- NOTE | 2023-03-10 14:42 | XR_ITS ---
FINAL REPORT CLINICAL HISTORY: fall FINDINGS: RIGHT KNEE: 4 views of the right knee obtained, which are marked as the left knee, however the Radiology department assures us that this is indeed the right knee. There is no acute fracture or dislocation. The joint spaces are intact.. There is no soft tissue abnormality. IMPRESSION: No acute fracture Reviewed, Interpreted and Dictated by Darrell Barboza III, MD Transcribed by Ani Love Authenticated and [facility]
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
[2023-03-10 15:00] VITALS: BP 104/76; PULSE 97; O2SAT 99
[2023-03-10 15:30] VITALS: BP 100/66; PULSE 88; O2SAT 98
[2023-03-10 16:00] VITALS: BP 106/68; PULSE 84; O2SAT 98
--- NOTE | 2023-03-10 16:18 | PC.NURSE ---
PT UPDATED ON POC AT THIS TIME
[2023-03-10 17:00] VITALS: BP 119/82; PULSE 93; RESP 16; TEMP 36.7; O2SAT 96
== END 2023-03-10 17:12 | disposition home or self-care (01) ==
PROVIDERS: Emergency Provider Emergency Medicine; PCP Nurse Practitioner Family
DX: M23.91 Unspecified internal derangement of right knee (principal)
CPT/HCPCS: 73564; 99283

== ENCOUNTER → 2023-03-25 09:56 | Outpatient (CLI) | payer BC, SELFPAY ==
--- NOTE | 2023-03-25 10:28 | MR_ITS ---
FINAL REPORT CLINICAL HISTORY: INJURY OF RIGHT KNEE twisted and knee popped ,pt in pain FINDINGS: Multiplanar MR imaging of the right knee was performed without contrast. There is degenerative signal in the posterior horn of the medial meniscus without convincing tear. The lateral meniscus is intact. The anterior and posterior cruciate ligaments are intact. The medial collateral ligament and lateral ligamentous complex are intact. The patellar and quadriceps tendons are intact. There is no evidence of fracture. No focal abnormality is identified of the articular cartilage. A small joint effusion is seen. The musculature is intact. No soft tissue mass or cyst is identified. IMPRESSION: No evidence of meniscal or ligamentous injury. Small joint effusion. Authenticated and [facility]
== END ==
PROVIDERS: PCP Nurse Practitioner Family; Visit Provider Nurse Practitioner Family
DX: M25.561 Pain in right knee (principal); M25.361 Other instability, right knee; S89.91XA Unspecified injury of right lower leg, initial encounter
CPT/HCPCS: 73721

== ENCOUNTER → 2023-03-31 17:30 | Outpatient (CLI) | payer BC, SELFPAY | PROVIDERS: PCP Nurse Practitioner Family; Visit Provider Nurse Practitioner | DX: Z79.899 Other long term (current) drug therapy (principal) ==

== ENCOUNTER → 2023-05-24 17:48 | Outpatient (CLI) | payer BC, SELFPAY ==
[2023-05-24 19:03] LABS: COC Drug Screen Collection Only
== END ==
PROVIDERS: PCP Nurse Practitioner Family; Visit Provider Nurse Practitioner Family
DX: Z79.899 Other long term (current) drug therapy (principal)

== ENCOUNTER → 2023-07-28 11:58 | Outpatient (CLI) | payer SELFPAY ==
--- OUTSIDE RECORDS SUMMARY | 2023-07-28 12:03 | XMS_ITS | Patient Health Record ---
Author Name Unknown Organization [facility] PR[facility] Address [address] [place] [address] Care Team Providers Care Jail Guard Name Role Phone Lani Gould Unavailable [phone] Deon Godoy Abram Unavailable [phone] Herman Seda Unavailable [phone] Teri Pereira Unavailable [phone] PROBLEMS Type Condition ICD9-CM Code SQN63-DG Code Onset Dates Condition Status W/U Status Risk SNOMED Code Notes Problem Depressed mood with onset F53.0 Jun, Active [id number] Postpartu m depressio n Problem *Cervical shortening affecting in third trimester (Code also weeks of gestation) O26.873 Feb, Active Cervical shortenin g, third trimester Problem *Decreased movements, 3rd trimester , fetus 1 (Code also - Weeks of gestation Z3A) O36.8131 17 Apr, 2021 Active Decreased movements , third trimester , fetus 1 Problem Bilateral sacroiliitis M46.1 04 Apr, 2021 Active [id number] Inflammat ion of sac
--- OUTSIDE RECORDS SUMMARY | 2023-07-28 12:03 | XMS_ITS | Continuity of Care Document ---
Author Name Unknown Organization [facility] er Address [address] [place] [id number]- Care Team Providers Care Coding Coordinator Name Role Phone NONE, NONE Primary Care Physician Unavailab le Encounter 05/02/22 - 05/02/[address] [address] [phone] Encounter Diagnosis Alcohol intoxication(Discharge Diagnosis) - 05/02/22 Anemia(Discharge Diagnosis) - 05/02/22 Iron deficiency(Discharge Diagnosis) - 05/02/22 Discharge Disposition: Home or Self Care 01 Attending Physician: SACHA JAVED MD Admitting Physician: SACHA JAVED MD Allergies, Adverse Reactions, Alerts Substance Reaction Severity Status sulfa drugs Anaphylactic reaction Active Latex Unknown Active Pineapple Anaphylactic reaction Active Coconut Anaphylactic reaction Active Assessment and Plan Diagnostic Tests Pending * Urinalysis with Culture/Microscopic, if indicated 05/02/22 * Drugs of Abuse Screen, Urine toxicology 05/02/22 Mental Status 05/02/22 Eye Opening Response Teresa Spontaneous ly Best Verbal Response Ephraim Oriented Best Motor Response Ephraim Obeys comman ds Ephraim Coma Score 15 Results Laboratory List Name Date Alcohol Level (ETOH Level) 05/02/22 Automated Diff 05/02/22 CBC w/ Automated Differential 05/02/22 Comprehensive Metabolic Panel 05/02/22 Iron Level and TIBC+ 05/02/22 Lipase Level 05/02/22 Test Serum w Reflex Quantitati ve 05/02/22 Slide Review 05/02/22 Glucose POC 05/02/22 Most recent to oldest [Reference
[2023-07-28 12:06] LABS: COC Drug Screen Collection Only
== END ==
PROVIDERS: PCP Nurse Practitioner Family
DX: Z79.899 Other long term (current) drug therapy (principal)

== ENCOUNTER 2023-09-25 12:15 | Emergency (ER) | payer BC, SELFPAY ==
[2023-09-25 13:15] VITALS: BP 125/74; PULSE 81; RESP 20; TEMP 36.7; O2SAT 97; BMI 24.3
--- NOTE | 2023-09-25 13:26 | ED_ITS ---
Discharge Plan Disposition Patient Disposition: Home, Self-Care Condition: Good Prescriptions Prescriptions: New amoxicillin [amoxicillin] 875 mg tablet 875 mg PO Q12H Qty: 20 0RF methylprednisolone 4 mg Tablets,Dose Pack 4 mg PO DIRECTED 6 Days Qty: 21 0RF Rx Instructions: Take 1 pack as directed for 6 days hlcflikhtzkgnfd-nmhoeggnt-QI [Bromfed DM] 2-30-10 mg/5 mL Syrup 5 ml PO Q6H PRN (Reason: Cough) Qty: 240 0RF No Action ciprofloxacin HCl 500 mg tablet 500 mg PO BID ondansetron 8 mg tablet,disintegrating 8 mg PO Q8HP PRN (Reason: Nausea) Patient Comments: DISSOLVE ONE TABLET IN MOUTH (ON TOP OF THE TONGUE) EVERY 8 HOURS DIRECTED tamsulosin 0.4 mg capsule 0.4 mg PO HS gabapentin 300 mg capsule 300 mg PO TID Patient Comments: TAKE ONE CAPSULE BY MOUTH THREE TIMES DAILY MAY CAUSE DROWSINESS hydroxyzine HCl 25 mg tablet 25 mg PO HS Patient Comments: TAKE ONE TABLET BY MOUTH EVERY DAY AT BEDTIME escitalopram oxalate 20 mg tablet 20 mg PO DAILY Patient Comments: TAKE ONE TABLET BY MOUTH EVERY DAY AT BEDTIME sucralfate 1 GM tablet 1 g PO ACHS pantoprazole 40 MG tablet,delayed release (DR/EC) 40 mg PO BID acetaminophen 500 MG tablet 500 mg PO NEEDED PRN (Reason: pain) Referrals Follow up/Referrals: Michaela Sousa APRN [Primary Care Provider] - See instructions Activity Restrictions/Add. Instructions Additional Instructions/Restrictions: Drink plenty of fluids. Take tylenol or ibuprofen for pain or fever. Take the medications as directed. Follow up with your regular doctor. GO TO THE ER FOR ANY WORSENING SYMPTOMS Clinical Impressions Clinical Impression: Strep throat Instructions Patient Instructions: DI for Strep Throat, Strep Throat Discharge ED Provider: [place]il[place] [facility] [place] General Stated complaint: olga, SOA Mode of Arrival: Ambulatory Source of Information: Patient Limitations: No Limitations Time Seen by Provider: 09/25/23 13:22 Description of Symptoms (Recalled from Triage Doc. by RN): PATIENT C/O SOA, SORE THROAT, AND DARK GREEN SPUTUM X 4 DAYS HEENT Symptoms (Recalled from RN notes): Yes Resp Symptoms (Recalled from RN notes): Yes Skin Symptoms (Recalled from RN notes): No MS Symptoms (Recalled from RN notes): No Functional Status (Recalled from RN notes): WNL Related Data Home Medications Medication Instructions Recorded Confirmed acetaminophen 500 mg tablet 500 mg PO NEEDED PRN pain 07/18/21 02/23/23 ciprofloxacin HCl 500 mg tablet 500 mg PO BID possible Infection 11/29/22 02/23/23 escitalopram oxalate 20 mg tablet 20 mg PO DAILY Anxiety 11/29/22 02/23/23 gabapentin 300 mg capsule 300 mg PO TID neuropathy 11/29/22 09/25/23 hydroxyzine HCl 25 mg tablet 25 mg PO HS Anxiety 11/29/22 02/23/23 ondansetron 8 mg disintegrating 8 mg PO Q8HP PRN Nausea 11/29/22 02/23/23 tablet pantoprazole 40 mg tablet,delayed 40 mg PO BID GI ulcers 11/29/22 09/25/23 release sucralfate 1 gram tablet 1 g PO ACHS GI ulcers 11/29/22 02/23/23 tamsulosin 0.4 mg capsule 0.4 mg PO HS Kidney stones 11/29/22 02/23/23 Previous Rx's Medication Instructions Recorded amoxicillin 875 mg tablet 875 mg PO Q12H #20 tabs 09/25/23 lqiybyynwfpkphq-dehvflqoqibkfhd-DT 5 ml PO Q6H PRN Cough #240 mL 09/25/23 2 mg-30 mg-10 mg/5 mL oral syrup (Bromfed DM) methylprednisolone 4 mg tablets in 4 mg PO DIRECTED 6 days #21 tabs 09/25/23 a dose pack Allergies Allergy/AdvReac Type Severity Reaction Status Date / Time celecoxib [From Celebrex] Allergy Severe Anaphylaxis Verified 03/10/23 14:22 latex [LATEX] Allergy Severe Anaphylaxis Verified 03/10/23 14:22 coconut Allergy Unknown Anaphylaxis Verified 03/10/23 14:22 Pertussis Vaccines Allergy Unknown Unknown Verified 03/10/23 14:22 [PERTUSSIS VACCINES] allergy reaction pineapple [PINEAPPLE] Allergy Unknown Unknown Verified 03/10/23 14:22 allergy reaction Sulfa (Sulfonamide Allergy Unknown Unknown Verified 03/10/23 14:22 Antibiotics) allergy [SULFA (SULFONAMIDE reaction ANTIBIOTICS)] dicyclomine [From Bentyl] AdvReac Verified 03/10/23 14:22 ketamine AdvReac Verified 03/10/23 14:22 Worker's Comp Is this a Worker's Comp case?: No [facility] Disclaimer: The information contained in this section may have been updated after the patient was seen, as this information can be updated by other users. 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: No caffeine: Yes ROS Obtained: Yes All systems reviewed & no additional complaints except as documented Constitutional Constitutional: Reports chills and Reports fever(s) Eyes Eyes: Denies eye discharge ENT Ears, Nose, Mouth, and Throat: Reports as per HPI Cardiovascular Cardiovascular: Denies chest pain Respiratory Respiratory: Denies chest congestion and Reports cough Gastrointestinal Gastrointestingal: Reports nausea; Denies abdominal pain, constipation, cramping, diarrhea or vomiting Musculoskeletal Musculoskeletal: Denies arthralgias Integumentary/Breasts Skin/Breast: Denies rash Neurologic Neurologic: Denies paresthesias Physical Exam General General appearance: alert and in no apparent distress Head Head exam: atraumatic, normocephalic and normal inspection Eye Eye exam: Present normal appearance, PERRL and EOMI ENT ENT exam: Present mucous membranes moist and normal external ear exam Expanded ENT Exam TM/Canal exam: Bilateral TM: erythema and bulging Nose exam: Absent sinus tenderness Mouth exam: Present normal external inspection; Absent drooling Teeth exam: Present normal inspection Throat exam: Present tonsillar erythema, tonsillomegaly and tonsillar exudate Neck Neck exam: Present normal inspection, full ROM and trachea midline; Absent tenderness, meningismus or lymphadenopathy Chest Chest inspection: Present normal inspection and symmetric chest wall rise; Absent tenderness Respiratory Respiratory exam: Present normal lung sounds bilaterally; Absent respiratory distress, wheezes or stridor Cardiovascular Cardiovascular exam: Present regular rate and normal rhythm; Absent systolic murmur or diastolic murmur Abdominal Exam Abdominal exam: Present soft and normal bowel sounds; Absent distention, tenderness, guarding, rebound or rigidity Extremities Exam Extremities exam: Present normal inspection and normal capillary refill; Absent calf tenderness Back Exam Back exam: Present normal inspection and full ROM; Absent tenderness, CVA tenderness (R) or CVA tenderness (L) Neurological Exam Neurological exam: Present alert, oriented X3 and CN II-XII intact Psychiatric Psychiatric exam: Present normal affect and normal mood Skin Skin exam: Present warm, dry, intact and normal color Medical Decision Making Medical Records Medical records reviewed: No I reviewed the patient's medical records. Federico Inquiry Pt receiving controlled substance: No Vital Signs: 09/25/23 13:15 Temperature 98.1 F Temperature Source Oral Pulse Rate [Left Brachial] 81 Respiratory Rate 20 Blood Pressure [Left Arm] 125/74 Blood Pressure Mean [Left Arm] 91 Blood Pressure Source [Left Arm] Automatic Cuff Blood Pressure Position [Left Arm] Sitting 02 Sat by Pulse Oximetry 97 Oxygen Delivery Method Room Air Lab Data Lab results reviewed: Yes I reviewed the patient's lab results.
[2023-09-25 13:39] LABS: UTC Strep Screen (Rapid) Positive (Negative)
[2023-09-25 13:54] VITALS: BP 125/74; PULSE 81; RESP 20; TEMP 36.7; O2SAT 97
== END 2023-09-25 13:58 | disposition home or self-care (01) ==
PROVIDERS: Emergency Provider Nurse Practitioner Family; PCP Nurse Practitioner Family
DX: J02.0 Streptococcal pharyngitis (principal); R06.02 Shortness of breath; R05.8 Other specified cough; R50.9 Fever, unspecified; R09.81 Nasal congestion
CPT/HCPCS: 87880; 99212; 99214; G0463

== ENCOUNTER 2023-10-09 18:55 | Emergency (ER) | payer OTHER, SELFPAY ==
[2023-10-09 19:05] VITALS: BP 126/77; PULSE 75; RESP 21; TEMP 36.7; O2SAT 99; BMI 24.5
--- NOTE | 2023-10-09 19:10 | XR_ITS ---
PROCEDURE INFORMATION: Exam: XR Chest Exam date and time: 10/09/2023 7:04 PM Age: 33 years old Clinical indication: Pain; Chest pressure; Additional info: Cough, chest pain x 3 days, worse with activity TECHNIQUE: Imaging protocol: Radiologic exam of the chest. Views: 2 views. Total images: 2 COMPARISON: CR XR CHEST PORTABLE 11/29/2022 12:01 AM FINDINGS: Lungs: Calcified right upper lobe granuloma. No acute infiltrate, airspace consolidation, or vascular congestion. No interstitial edema. Pleural spaces: Unremarkable. No pleural effusion. No pneumothorax. Heart/Mediastinum: Unremarkable. No cardiomegaly. No mediastinal widening or hilar enlargement. Bones/joints: Mild thoracolumbar scoliosis. Mild degenerative changes midthoracic spine. Soft tissues: Breast attenuation artifact. IMPRESSION: No radiographically acute cardiopulmonary process.
--- NOTE | 2023-10-09 19:16 | PC.NURSE ---
Back from RAD
--- NOTE | 2023-10-09 19:50 | ED_ITS ---
Discharge Plan Disposition Patient Disposition: Home, Self-Care Condition: Good Prescriptions Prescriptions: No Action gabapentin 300 mg capsule 300 mg PO TID Patient Comments: TAKE ONE CAPSULE BY MOUTH THREE TIMES DAILY MAY CAUSE DROWSINESS escitalopram oxalate 20 mg tablet 20 mg PO DAILY Patient Comments: TAKE ONE TABLET BY MOUTH EVERY DAY AT BEDTIME pantoprazole 40 MG tablet,delayed release (DR/EC) 40 mg PO BID prednisone 10 mg tablet See Rx Instructions .ROUTE .COMPLEX Patient Comments: TAKE FOUR TABLETS BY MOUTH EVERY DAY FOR 3 DAYS, TAKE THREE TABLETS EVERY DAY FOR 3 DAYS, TAKE TWO TABLETS EVERY DAY FOR 3 DAYS, TAKE ONE TABLET EVERY DAY FOR 3 DAYS --TAKE WITH FOOD-- Rx Instructions: TAKE FOUR TABLETS BY MOUTH EVERY DAY FOR 3 DAYS, TAKE THREE TABLETS EVERY DAY FOR 3 DAYS, TAKE TWO TABLETS EVERY DAY FOR 3 DAYS, TAKE ONE TABLET EVERY DAY FOR 3 DAYS --TAKE WITH FOOD-- Referrals Follow up/Referrals: Michaela Sousa APRN [Primary Care Provider] - See instructions Clinical Impressions Clinical Impression: Upper respiratory infection with cough and congestion Instructions Patient Instructions: DI for Viral Upper Respiratory Infection -- Adult Discharge ED Provider: Mariann Duong [facility] General Stated complaint: SOA , cough Mode of Arrival: Ambulatory Source of Information: Patient Limitations: No Limitations Time Seen by Provider: 10/09/23 19:30 Description of Symptoms (Recalled from Triage Doc. by RN): Pt had strep 2 weeks ago. She stated that as time has progressed and feels like she has SOA with increased physical activity. She feels like chest congestion, and pain in mid right back. HEENT Symptoms (Recalled from RN notes): Yes Resp Symptoms (Recalled from RN notes): No Skin Symptoms (Recalled from RN notes): No MS Symptoms (Recalled from RN notes): No Functional Status (Recalled from RN notes): n/a History of Present Illness Provider Complaint: Pt reports that she was diagnosed with strep at the end of August. She received a round of Augmentin and medrol dose pack at that time. She states that she continued to feel poorly and received a round of Azithromycin and prednisone from her PCP. She reports that she continues to feel SOA sometimes and feels as if she has had an elephant on her chest. She state that her pulse has jumped to 140 -160 bpm at times. She states that she has had to use her rescue inhaler (albuterol) at times due to wheezing and SOA. Related Data Home Medications Medication Instructions Recorded Confirmed escitalopram oxalate 20 mg tablet 20 mg PO DAILY Anxiety 11/29/22 10/09/23 gabapentin 300 mg capsule 300 mg PO TID neuropathy 11/29/22 10/09/23 pantoprazole 40 mg tablet,delayed 40 mg PO BID GI ulcers 11/29/22 10/09/23 release prednisone 10 mg tablet See Rx Instructions .Route .COMPLEX 10/09/23 10/09/23 Allergies Allergy/AdvReac Type Severity Reaction Status Date / Time celecoxib [From Celebrex] Allergy Severe Anaphylaxis Verified 10/09/23 19:16 latex [LATEX] Allergy Severe Anaphylaxis Verified 10/09/23 19:16 coconut Allergy Unknown Anaphylaxis Verified 10/09/23 19:16 Pertussis Vaccines Allergy Unknown Unknown Verified 10/09/23 19:16 [PERTUSSIS VACCINES] allergy reaction pineapple [PINEAPPLE] Allergy Unknown Unknown Verified 10/09/23 19:16 allergy reaction Sulfa (Sulfonamide Allergy Unknown Unknown Verified 10/09/23 19:16 Antibiotics) allergy [SULFA (SULFONAMIDE reaction ANTIBIOTICS)] dicyclomine [From Bentyl] AdvReac Verified 10/09/23 19:16 ketamine AdvReac Verified 10/09/23 19:16 Worker's Comp Is this a Worker's Comp case?: No [facility] Disclaimer: The information contained in this section may have been updated after the patient was seen, as this information can be updated by other users. 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 caffeine: Yes ROS Obtained: Yes All systems reviewed & no additional complaints except as documented Constitutional Constitutional: Reports system reviewed and no additional complaints, except as documented and Reports malaise Eyes Eyes: Reports system reviewed and no additional complaints, except as documented ENT Ears, Nose, Mouth, and Throat: Reports system reviewed and no additional complaints, except as documented and Reports nasal discharge Cardiovascular Cardiovascular: Reports system reviewed and no additional complaints, except as documented, Reports chest pain, Reports dyspnea, Reports dyspnea on exertion and Reports rapid heart rate Respiratory Respiratory: Reports system reviewed and no additional complaints, except as documented, Reports non-productive cough, Reports dyspnea and Reports dyspnea on exertion Gastrointestinal Gastrointestingal: Reports system reviewed and no additional complaints, except as documented Genitourinary Female Genitourinary: Reports system reviewed and no additional complaints, except as documented Musculoskeletal Musculoskeletal: Reports system reviewed and no additional complaints, except as documented Integumentary/Breasts Skin/Breast: Reports system reviewed and no additional complaints, except as documented Neurologic Neurologic: Reports system reviewed and no additional complaints, except as documented Endocrine Endocrine: Reports system reviewed and no additional complaints, except as documented Hematologic/Lymphatic Henatologic/Lymphatic: Reports system reviewed and no additional complaints, except as documented Allergic/Immunologic Allergic/Immunologic: Reports system reviewed and no additional complaints, except as documented Physical Exam General General appearance: alert and in no apparent distress Head Head exam: atraumatic and normocephalic Eye Eye exam: Present normal appearance Expanded ENT Exam External ear exam: Present normal external inspection Nasal speculum exam: Bilateral: normal Mouth exam: Present normal external inspection Teeth exam: Present normal inspection Throat exam: Present normal inspection Neck Neck exam: Present normal inspection Chest Chest inspection: Present normal inspection and symmetric chest wall rise Respiratory Respiratory exam: Present normal lung sounds bilaterally Cardiovascular Cardiovascular exam: Present regular rate, normal rhythm and normal heart sounds Abdominal Exam Abdominal exam: Present soft and normal bowel sounds Extremities Exam Extremities exam: Present normal inspection Back Exam Back exam: Present normal inspection Neurological Exam Neurological exam: Present alert and oriented X3 Psychiatric Psychiatric exam: Present normal affect and normal mood Skin Skin exam: Present warm, dry and intact Lymphatic Lymphatic Findings: no adenopathy Medical Decision Making Federico Inquiry Pt receiving controlled substance: No Federico was queried for this patient: No Vital Signs: 10/09/23 19:05 Temperature 98.0 F Temperature Source Oral Pulse Rate [Right Radial] 75 Respiratory Rate 21 Blood Pressure [Right Arm] 126/77 Blood Pressure Mean [Right Arm] 93 Blood Pressure Source [Right Arm] Automatic Cuff Blood Pressure Position [Right Arm] Sitting 02 Sat by Pulse Oximetry 99 Oxygen Delivery Method Room Air Orders (Tests/Meds): ORDERS Category Date Time Status Chest XR 2 view (NOT portable) [XR chest 2V] Stat Exams 10/09/23 19:10 Completed Full Resp Panel w/COVID ([facility]) Routine Lab 10/09/23 19:50 Ordered Medical Decision Narrative: Discussed with pt at length the need to go to the ER for chest pain, with arm pain, and SOA. She voiced understanding.
[2023-10-09 19:55] VITALS: BP 126/77; PULSE 75; RESP 18; TEMP 36.7; O2SAT 99
[2023-10-09 20:15] LABS: Adenovirus,PCR Not Detected (NotDetected); Coronavirus 19, PCR Not Detected (NotDetected); Coronavirus 229E Not Detected (NotDetected); Coronavirus NL63 Not Detected (NotDetected); Coronavirus OC43 Not Detected (NotDetected); Coronovirus HKU1,PCR Not Detected (NotDetected); Human Metapneumovirus Not Detected (NotDetected); Influenza A, PCR Not Detected (NotDetected); Influenza AH1, 2009 Not Detected (NotDetected); Influenza AH1, PCR Not Detected (NotDetected); Influenza AH3,PCR Not Detected (NotDetected); Influenza B, PCR Not Detected (NotDetected); Parainfluenza 1, PCR Not Detected (NotDetected); Parainfluenza 2, PCR Not Detected (NotDetected); Parainfluenza 3, PCR Not Detected (NotDetected); Parainfluenza 4, PCR Not Detected (NotDetected); Respiratory Syncytial Virus Not Detected (NotDetected); Rhinovirus/Enterovirus Not Detected (NotDetected)
== END 2023-10-09 19:55 | disposition home or self-care (01) ==
PROVIDERS: Emergency Provider Nurse Practitioner Family; PCP Nurse Practitioner Family
DX: R06.02 Shortness of breath (principal); R05.9 Cough, unspecified; J06.9 Acute upper respiratory infection, unspecified; R09.81 Nasal congestion; B34.9 Viral infection, unspecified; K21.9 Gastro-esophageal reflux disease without esophagitis
CPT/HCPCS: 71046; 87632; 87635; 99212; 99214; G0463

== ENCOUNTER 2023-10-18 15:47 | Emergency (ER) | payer OTHER, SELFPAY ==
[2023-10-18 16:00] VITALS: BP 125/81; PULSE 85; RESP 18; TEMP 36.6; O2SAT 99; BMI 23.6
--- NOTE | 2023-10-18 16:08 | EXP.UTC ---
Discharge Plan Disposition Patient Disposition: Home, Self-Care Condition: Good Prescriptions Prescriptions: New methylprednisolone 4 mg Tablets,Dose Pack 4 mg PO DIRECTED 6 Days Qty: 21 0RF Rx Instructions: Take 1 pack as directed for 6 days cefdinir 300 mg capsule 300 mg PO BID Qty: 20 0RF fluticasone propionate [fluticasone propionate] 50 mcg/actuation spray,suspension 1 spr intranasal DAILY 30 Days Qty: 120 0RF No Action gabapentin 300 mg capsule 300 mg PO TID Patient Comments: TAKE ONE CAPSULE BY MOUTH THREE TIMES DAILY MAY CAUSE DROWSINESS escitalopram oxalate 20 mg tablet 20 mg PO DAILY Patient Comments: TAKE ONE TABLET BY MOUTH EVERY DAY AT BEDTIME pantoprazole 40 MG tablet,delayed release (DR/EC) 40 mg PO BID Referrals Follow up/Referrals: Michaela Sousa APRN [Primary Care Provider] - See instructions Activity Restrictions/Add. Instructions Additional Instructions/Restrictions: Drink plenty of fluids. Take tylenol or ibuprofen for pain or fever. Take the medications as directed. Follow up with your regular doctor. GO TO THE ER FOR ANY WORSENING SYMPTOMS Clinical Impressions Clinical Impression: Bronchitis, Otitis media Instructions Patient Instructions: Middle Ear Infection, DI for Acute Bronchitis Discharge ED Provider: Nolan Dasilva [facility] [place] General Stated complaint: congestion chest/ear cough Time Seen by Provider: 10/18/23 16:06 History of Present Illness Provider Complaint: She states that for the past 4 days she has had worsening left ear pain and chest congestion. Related Data Home Medications Medication Instructions Recorded Confirmed escitalopram oxalate 20 mg tablet 20 mg PO DAILY Anxiety 11/29/22 10/18/23 gabapentin 300 mg capsule 300 mg PO TID neuropathy 11/29/22 10/18/23 pantoprazole 40 mg tablet,delayed 40 mg PO BID GI ulcers 11/29/22 10/18/23 release Previous Rx's Medication Instructions Recorded cefdinir 300 mg capsule 300 mg PO BID #20 caps 10/18/23 fluticasone propionate 50 1 spr intranasal DAILY 30 days 10/18/23 mcg/actuation nasal #120 ea spray,suspension methylprednisolone 4 mg tablets in 4 mg PO DIRECTED 6 days #21 tabs 10/18/23 a dose pack Allergies Allergy/AdvReac Type Severity Reaction Status Date / Time celecoxib [From Celebrex] Allergy Severe Anaphylaxis Verified 10/18/23 16:16 latex [LATEX] Allergy Severe Anaphylaxis Verified 10/18/23 16:16 coconut Allergy Unknown Anaphylaxis Verified 10/18/23 16:16 Pertussis Vaccines Allergy Unknown Unknown Verified 10/18/23 16:16 [PERTUSSIS VACCINES] allergy reaction pineapple [PINEAPPLE] Allergy Unknown Unknown Verified 10/18/23 16:16 allergy reaction Sulfa (Sulfonamide Allergy Unknown Unknown Verified 10/18/23 16:16 Antibiotics) allergy [SULFA (SULFONAMIDE reaction ANTIBIOTICS)] dicyclomine [From Bentyl] AdvReac Verified 10/18/23 16:16 ketamine AdvReac Verified 10/18/23 16:16 PFSH [facility] Disclaimer: The information contained in this section may have been updated after the patient was seen, as this information can be updated by other users. 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 current occupational exposures/hazards: No caffeine: Yes ROS Obtained: Yes All systems reviewed & no additional complaints except as documented Constitutional Constitutional: Denies chills, Reports fever(s) and Reports poor appetite Eyes Eyes: Denies eye discharge ENT Ears, Nose, Mouth, and Throat: Denies ear discharge, Reports otalgia, Denies hearing loss, Denies sinus pain and Reports sore throat Cardiovascular Cardiovascular: Denies chest pain and Denies dyspnea Respiratory Respiratory: Denies chest congestion, Reports cough and Denies dyspnea Gastrointestinal Gastrointestingal: Denies abdominal pain, diarrhea, nausea or vomiting Musculoskeletal Musculoskeletal: Denies arthralgias Integumentary/Breasts Skin/Breast: Denies rash Physical Exam General General appearance: alert and in no apparent distress Head Head exam: atraumatic, normocephalic and normal inspection Eye Eye exam: Present normal appearance; Absent PERRL or EOMI ENT ENT exam: Present mucous membranes moist and normal external ear exam Expanded ENT Exam TM/Canal exam: Bilateral TM: erythema, bulging and effusion Nose exam: Absent sinus tenderness Nasal speculum exam: Bilateral: normal Mouth exam: Present normal external inspection and other; Absent drooling Teeth exam: Present normal inspection Throat exam: Present tonsillar erythema and tonsillomegaly Neck Neck exam: Present normal inspection, full ROM and trachea midline; Absent tenderness, meningismus or lymphadenopathy Chest Chest inspection: Present normal inspection and symmetric chest wall rise; Absent tenderness Respiratory Respiratory exam: Present normal lung sounds bilaterally; Absent respiratory distress, wheezes or stridor Cardiovascular Cardiovascular exam: Present regular rate, normal rhythm and normal heart sounds; Absent tachycardia or irregular rhythm Abdominal Exam Abdominal exam: Present soft and normal bowel sounds; Absent distention, tenderness, guarding, rebound or rigidity Extremities Exam Extremities exam: Present normal inspection and normal capillary refill; Absent tenderness, joint swelling or calf tenderness Back Exam Back exam: Present normal inspection and full ROM; Absent tenderness, CVA tenderness (R) or CVA tenderness (L) Neurological Exam Neurological exam: Present alert, oriented X3, CN II-XII intact, normal gait and reflexes normal; Absent motor sensory deficit Psychiatric Psychiatric exam: Present normal affect and normal mood Skin Skin exam: Present warm, dry, intact and normal color Lymphatic Lymphatic Findings: no adenopathy Medical Decision Making Medical Records Medical records reviewed: No I reviewed the patient's medical records. Federico Inquiry Pt receiving controlled substance: No Lab Data Lab results reviewed: Yes I reviewed the patient's lab results.
[2023-10-18 17:12] VITALS: BP 125/81; PULSE 85; RESP 18; TEMP 36.6; O2SAT 99
== END 2023-10-18 17:12 | disposition home or self-care (01) ==
PROVIDERS: Emergency Provider Nurse Practitioner Family; PCP Nurse Practitioner Family
DX: J20.9 Acute bronchitis, unspecified (principal); H66.93 Otitis media, unspecified, bilateral; R07.0 Pain in throat; R09.89 Other specified symptoms and signs involving the circulatory and respiratory systems
CPT/HCPCS: 99212; 99214; G0463

== ENCOUNTER 2023-11-13 14:00 | Emergency (ER) | payer OTHER, SELFPAY ==
[2023-11-13 14:14] VITALS: BP 138/90; PULSE 102; RESP 20; TEMP 37; O2SAT 100; BMI 24.3
--- NOTE | 2023-11-13 14:14 | CT_ITS ---
PROCEDURE INFORMATION: Exam: CT Abdomen And Pelvis With Contrast Exam date and time: 11/13/2023 3:12 PM Age: 33 years old Clinical indication: Abdominal pain; Other: Rlq; Additional info: Rlq pain, prev endomet, prev stones TECHNIQUE: Imaging protocol: Computed tomography of the abdomen and pelvis with contrast. Radiation optimization: All CT scans at this facility use at least one of these dose optimization techniques: automated exposure control; mA and/or kV adjustment per patient size (includes targeted exams where dose is matched to clinical indication); or iterative reconstruction. Contrast material: ISOVUE; Contrast volume: 75 ml; Contrast route: IV; COMPARISON: CT ABDOMEN PELVIS WO CON 01/12/2023 10:01 AM FINDINGS: Liver: Normal. No mass. Gallbladder and bile ducts: Previous cholecystectomy. Pancreas: Normal. No ductal dilation. Spleen: Normal. No splenomegaly. Adrenal glands: Normal. No mass. Kidneys and ureters: Normal. No hydronephrosis. Stomach and bowel: Unremarkable. No obstruction. No mucosal thickening. Appendix: Appendix normal. Intraperitoneal space: Unremarkable. No free air. No significant fluid collection. Vasculature: Unremarkable. No abdominal aortic aneurysm. Lymph nodes: Unremarkable. No enlarged lymph nodes. Urinary bladder: Unremarkable as visualized. Reproductive: Unremarkable as visualized. Bones/joints: Unremarkable. No acute fracture. Soft tissues: Unremarkable. IMPRESSION: Appendix normal.
--- NOTE | 2023-11-13 14:17 | ED_ITS ---
Discharge Plan Disposition Patient Disposition: Home, Self-Care Prescriptions Prescriptions: New ondansetron 4 mg tablet,disintegrating 4 mg PO Q6H PRN (Reason: nausea and vomiting) Qty: 10 0RF No Action gabapentin 300 mg capsule 300 mg PO TID Patient Comments: TAKE ONE CAPSULE BY MOUTH THREE TIMES DAILY MAY CAUSE DROWSINESS escitalopram oxalate 20 mg tablet 20 mg PO DAILY Patient Comments: TAKE ONE TABLET BY MOUTH EVERY DAY AT BEDTIME pantoprazole 40 MG tablet,delayed release (DR/EC) 40 mg PO BID methylprednisolone 4 mg Tablets,Dose Pack 4 mg PO DIRECTED 6 Days Qty: 21 0RF Rx Instructions: Take 1 pack as directed for 6 days cefdinir 300 mg capsule 300 mg PO BID Qty: 20 0RF fluticasone propionate [fluticasone propionate] 50 mcg/actuation spray,suspension 1 spr intranasal DAILY 30 Days Qty: 120 0RF Referrals Follow up/Referrals: Michaela Sousa APRN [Primary Care Provider] - See instructions Activity Restrictions/Add. Instructions Additional Instructions/Restrictions: Call your family doctor to establish care for this visit to the emergency department and schedule follow-up within 48 hours to ensure improvement. If you have any worsening of your condition or any other concerning signs or symptoms, return to the emergency department or your primary care doctor for further evaluation. Clinical Impressions Clinical Impression: Abdominal pain Instructions Patient Instructions: DI for Acute Abdominal Pain Discharge ED Provider: David Benz General Adult HPI <Milton Galloway MD - Last Filed: 11/13/23 14:43> General Chief complaint: Abdominal Pain Stated complaint: stomach/back pain, fever, vomiting Time Seen by Provider: 11/13/23 14:00 History of Present Illness HPI narrative: Patient is a 33-year-old female past medical history of endometriosis status post ablation, previous ureterolithiasis, previous ovarian cysts, previous Clarice-Guevara tear status post banding who presents emergency department for evaluation of right lower quadrant pain. Onset was acute, over the last 24 to 48 hours, radiating into her right inguinal region as well as her back. Brown vomitus. Nonbloody stool, no dysuria, no vaginal bleeding or discharge. Negative COVID test and test at home. Due to persistent symptoms she presents here for continued evaluation. Related Data Home Medications Medication Instructions Recorded Confirmed escitalopram oxalate 20 mg tablet 20 mg PO DAILY Anxiety 11/29/22 10/18/23 gabapentin 300 mg capsule 300 mg PO TID neuropathy 11/29/22 10/18/23 pantoprazole 40 mg tablet,delayed 40 mg PO BID GI ulcers 11/29/22 10/18/23 release Previous Rx's Medication Instructions Recorded cefdinir 300 mg capsule 300 mg PO BID #20 caps 10/18/23 fluticasone propionate 50 1 spr intranasal DAILY 30 days 10/18/23 mcg/actuation nasal #120 ea spray,suspension methylprednisolone 4 mg tablets in 4 mg PO DIRECTED 6 days #21 tabs 10/18/23 a dose pack ondansetron 4 mg disintegrating 4 mg PO Q6H PRN nausea and 11/13/23 tablet vomiting #10 tabs Allergies Allergy/AdvReac Type Severity Reaction Status Date / Time celecoxib [From Celebrex] Allergy Severe Anaphylaxis Verified 10/18/23 16:16 latex [LATEX] Allergy Severe Anaphylaxis Verified 10/18/23 16:16 coconut Allergy Unknown Anaphylaxis Verified 10/18/23 16:16 Pertussis Vaccines Allergy Unknown Unknown Verified 10/18/23 16:16 [PERTUSSIS VACCINES] allergy reaction pineapple [PINEAPPLE] Allergy Unknown Unknown Verified 10/18/23 16:16 allergy reaction Sulfa (Sulfonamide Allergy Unknown Unknown Verified 10/18/23 16:16 Antibiotics) allergy [SULFA (SULFONAMIDE reaction ANTIBIOTICS)] dicyclomine [From Bentyl] AdvReac Verified 10/18/23 16:16 ketamine AdvReac Verified 10/18/23 16:16 [facility] <Milton Galloway MD - Last Filed: 11/13/23 14:43> [facility] Disclaimer: The information contained in this section may have been updated after the patient was seen, as this information can be updated by other users. 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: No caffeine: Yes <Milton Galloway MD - Last Filed: 11/13/23 14:43> ROS Obtained: Yes Systems reviewed as appropriate & no additional complaints except as documented Physical Exam <Milton Galloway MD - Last Filed: 11/13/23 14:43> General General appearance: alert and in no apparent distress Head Head exam: atraumatic and normocephalic Eye Eye exam: Present PERRL and EOMI ENT ENT exam: Present mucous membranes moist Neck Neck exam: Present normal inspection Chest Chest inspection: Present normal inspection and symmetric chest wall rise Respiratory Respiratory exam: Present normal lung sounds bilaterally; Absent respiratory distress Cardiovascular Cardiovascular exam: Present regular rate and normal rhythm Abdominal Exam Abdominal exam: Present soft and tenderness (Periumbilical, right lower quadrant) Extremities Exam Extremities exam: Present normal inspection Neurological Exam Neurological exam: Present alert Psychiatric Psychiatric exam: Present normal affect Skin Skin exam: Present warm and dry Medical Decision Making <Milton Galloway MD - Last Filed: 11/13/23 14:43> Federico Inquiry Pt receiving controlled substance: No Vital Signs: 11/13/23 14:14 11/13/23 14:52 11/13/23 15:01 Temperature 98.6 F Temperature Source Oral Pulse Rate 98 H 90 Pulse Rate [Left] 102 H Respiratory Rate 20 Blood Pressure 138/90 111/68 Blood Pressure [Right Arm] 138/90 Blood Pressure Mean [Right Arm] 106 Blood Pressure Source [Right Arm] Automatic Cuff Blood Pressure Position [Right Arm] Sitting 02 Sat by Pulse Oximetry 100 96 96 Oxygen Delivery Method Room Air Room Air Room Air Lab Data Lab Results 11/13/23 14:09: SARS-CoV-2 (PCR) Not detected, Influenza A Untype (PCR) Not detected, Influenza Type B (PCR) Not detected 11/13/23 14:12: Urine Color Yellow, Urine Appearance Clear, Urine pH 6.0, Ur Specific [place] >= 1.030, Urine Protein Negative, Urine Glucose (UA) Negative, Urine Ketones Negative, Urine Blood 1+, Urine Nitrate Negative, Urine Bilirubin Negative, Urine Urobilinogen 0.2, Ur Leukocyte Esterase Negative, Urine RBC Occasional, Urine WBC Occasional, Ur Squamous Epith Cells 3-5, Amorphous Sediment 2+, Urine Bacteria None 02/17/24 14:37: WBC 5.5, RBC 4.92, Hgb 12.6, Hct 37.7, MCV 76.6 L, MCH 25.5 L, MCHC 33.3, RDW 17.4, Plt Count 262, MPV 7.2 L, Neut % (Auto) 87.0 H, Lymph % (Auto) 7.7 L, [place] % (Auto) 4.3, Eos % (Auto) 0.6, Baso % (Auto) 0.4, Neut # (Auto) 4.8, Lymph # (Auto) 0.4 L, [place] # (Auto) 0.2, Eos # (Auto) 0.0, Baso # (Auto) 0.0, Total Counted 100, Neutrophils % (Manual) 89 H, Lymphocytes % (Manual) 9 L, Monocytes % (Manual) 2, Platelet Estimate Normal, Hypochromasia 2+, Sodium 138, Potassium 3.6, Chloride 105, Carbon Dioxide 25, Anion Gap 11.6, BUN 13, Creatinine 0.70, Estimated Creat Clear 133, Estimated GFR 98, Est GFR ( Amer) 118, Glucose 102 H, Calcium 8.3 L, Total Bilirubin 0.5, AST 27, ALT 19, Alkaline Phosphatase 93, Total Protein 7.8, Albumin 4.4, Globulin 3.4 H, Albumin/Globulin Ratio 1.3, Lipase 22 L, Serum HCG, Qual Negative 11/13/23 14:37 11/13/23 14:37 Orders (Tests/Meds): ED MEDICATIONS Discontinued Medications Generic Name Dose Route Start Last Admin Trade Name Ramiro PRN Reason Stop Dose Admin Acetaminophen 1,000 mg 11/13/23 14:14 11/13/23 14:52 Acetaminophen 1,000mg/100ml Vial IV 11/13/23 14:15 1,000 mg ONCE ONE Administration Lactated Ringer's 1,000 mls @ 999 mls/hr 11/13/23 14:14 11/13/23 14:52 Lactated Ringer's 1000 Ml Bag IV 11/13/23 15:14 999 mls/hr .Q1H1M ONE Administration Iopamidol 75 ml 11/13/23 15:20 11/13/23 15:21 Iopamidol-370 (76%);100ml Bottle IV 11/13/23 15:21 75 ml ONCE ONE Administration Morphine Sulfate 4 mg 11/13/23 14:14 11/13/23 14:53 Morphine 4mg/Ml Syringe IV 11/13/23 14:15 4 mg ONCE ONE Administration Ondansetron HCl 4 mg 11/13/23 14:14 11/13/23 14:53 Ondansetron 4mg/2ml Vial IV 11/13/23 14:15 4 mg ONCE ONE Administration Sodium Chloride 10 ml 11/13/23 15:20 11/13/23 15:21 Sodium Chloride 0.9% 10ml Syr (Rad Only) IV 11/13/23 15:21 10 ml ONCE ONE Administration ORDERS Category Date Time Status CT abdomen pelvis w con Stat Cat Scan 11/13/23 14:14 Completed CBC w/Auto Diff [Complete Blood Count Auto Diff] Stat Lab 11/13/23 14:37 Completed CMP [Comprehensive Metabolic Panel] Stat Lab 11/13/23 14:37 Completed HCG Qualitative, Serum Stat Lab 11/13/23 14:37 Completed Lipase Stat Lab 11/13/23 14:37 Completed Rapid PCR Covid and Flu A/B Stat Lab 11/13/23 14:09 Completed UA [Urinalysis and Microscopic] Stat Lab 11/13/23 14:12 Completed Medical Decision Narrative: In summary patient is a 33-year-old female with past medical history described above who presents emergency department for evaluation of abdominal pain. Patient is hemodynamically stable nontoxic-appearing upon arrival, appearing uncomfortable, afebrile. Differential diagnosis includes appendicitis, large ovarian cyst, viral infection, ureterolithiasis, urinary tract infection, among others. Workup will be conducted with hematologic labs, urinalysis, CT abdomen pelvis IV contrast. Initial interventions include morphine, Zofran, IV Tylenol. Workup largely pending at time of transfer of care to the oncoming physician, Dr. Benz. <David Benz MD - Last Filed: 11/13/23 16:22> Vital Signs: 11/13/23 14:14 11/13/23 14:52 11/13/23 15:01 Temperature 98.6 F Temperature Source Oral Pulse Rate 98 H 90 Pulse Rate [Left] 102 H Respiratory Rate 20 Blood Pressure 138/90 111/68 Blood Pressure [Right Arm] 138/90 Blood Pressure Mean [Right Arm] 106 Blood Pressure Source [Right Arm] Automatic Cuff Blood Pressure Position [Right Arm] Sitting 02 Sat by Pulse Oximetry 100 96 96 Oxygen Delivery Method Room Air Room Air Room Air Lab Data Lab Results 11/13/23 14:09: SARS-CoV-2 (PCR) Not detected, Influenza A Untype (PCR) Not detected, Influenza Type B (PCR) Not detected 11/13/23 14:12: Urine Color Yellow, Urine Appearance Clear, Urine pH 6.0, Ur Specific [place] >= 1.030, Urine Protein Negative, Urine Glucose (UA) Negative, Urine Ketones Negative, Urine Blood 1+, Urine Nitrate Negative, Urine Bilirubin Negative, Urine Urobilinogen 0.2, Ur Leukocyte Esterase Negative, Urine RBC Occasional, Urine WBC Occasional, Ur Squamous Epith Cells 3-5, Amorphous Sediment 2+, Urine Bacteria None 11/13/23 14:37: WBC 5.5, RBC 4.92, Hgb 12.6, Hct 37.7, MCV 76.6 L, MCH 25.5 L, MCHC 33.3, RDW 17.4, Plt Count 262, MPV 7.2 L, Neut % (Auto) 87.0 H, Lymph % (Auto) 7.7 L, [place] % (Auto) 4.3, Eos % (Auto) 0.6, Baso % (Auto) 0.4, Neut # (Auto) 4.8, Lymph # (Auto) 0.4 L, [place] # (Auto) 0.2, Eos # (Auto) 0.0, Baso # (Auto) 0.0, Total Counted 100, Neutrophils % (Manual) 89 H, Lymphocytes % (Manual) 9 L, Monocytes % (Manual) 2, Platelet Estimate Normal, Hypochromasia 2+, Sodium 138, Potassium 3.6, Chloride 105, Carbon Dioxide 25, Anion Gap 11.6, BUN 13, Creatinine 0.70, Estimated Creat Clear 133, Estimated GFR 98, Est GFR ( Amer) 118, Glucose 102 H, Calcium 8.3 L, Total Bilirubin 0.5, AST 27, ALT 19, Alkaline Phosphatase 93, Total Protein 7.8, Albumin 4.4, Globulin 3.4 H, Albumin/Globulin Ratio 1.3, Lipase 22 L, Serum HCG, Qual Negative Orders (Tests/Meds): ED MEDICATIONS Discontinued Medications Generic Name Dose Route Start Last Admin Trade Name Freq PRN Reason Stop Dose Admin Acetaminophen 1,000 mg 11/13/23 14:14 11/13/23 14:52 Acetaminophen 1,000mg/100ml Vial IV 11/13/23 14:15 1,000 mg ONCE ONE Administration Lactated Ringer's 1,000 mls @ 999 mls/hr 11/13/23 14:14 11/13/23 14:52 Lactated Ringer's 1000 Ml Bag IV 11/13/23 15:14 999 mls/hr .Q1H1M ONE Administration Iopamidol 75 ml 11/13/23 15:20 11/13/23 15:21 Iopamidol-370 (76%);100ml Bottle IV 11/13/23 15:21 75 ml ONCE ONE Administration Morphine Sulfate 4 mg 11/13/23 14:14 11/13/23 14:53 Morphine 4mg/Ml Syringe IV 11/13/23 14:15 4 mg ONCE ONE Administration Ondansetron HCl 4 mg 11/13/23 14:14 11/13/23 14:53 Ondansetron 4mg/2ml Vial IV 11/13/23 14:15 4 mg ONCE ONE Administration Sodium Chloride 10 ml 11/13/23 15:20 11/13/23 15:21 Sodium Chloride 0.9% 10ml Syr (Rad Only) IV 11/13/23 15:21 10 ml ONCE ONE Administration ORDERS Category Date Time Status CT abdomen pelvis w con Stat Cat Scan 11/13/23 14:14 Completed CBC w/Auto Diff [Complete Blood Count Auto Diff] Stat Lab 11/13/23 14:37 Completed CMP [Comprehensive Metabolic Panel] Stat Lab 11/13/23 14:37 Completed HCG Qualitative, Serum Stat Lab 11/13/23 14:37 Completed Lipase Stat Lab 11/13/23 14:37 Completed Rapid PCR Covid and Flu A/B Stat Lab 11/13/23 14:09 Completed UA [Urinalysis and Microscopic] Stat Lab 11/13/23 14:12 Completed Medical Decision Narrative: In summary patient is a 33-year-old female with past medical history described above who presents emergency department for evaluation of abdominal pain. Patient is hemodynamically stable nontoxic-appearing upon arrival, appearing uncomfortable, afebrile. Differential diagnosis includes appendicitis, large ovarian cyst, viral infection, ureterolithiasis, urinary tract infection, among others. Workup will be conducted with hematologic labs, urinalysis, CT abdomen pelvis IV contrast. Initial interventions include morphine, Zofran, IV Tylenol. Workup largely pending at time of transfer of care to the oncoming physician, Dr. Benz. salma: I assume primary responsibility for this patient after signout from previous physician. On my evaluation, patient sleeping and resting comfortably in bed. States that she still feels a little nauseated, but pain is improved. Independently interpreted patient's workup today and patient has no leukocytosis, nonactionable chemistry, normal kidney function, normal LFTs, negative lipase, negative hCG. Urinalysis has some blood, no evidence of infection. CT of the abdomen and pelvis with no evidence of appendicitis, intra-abdominal fluid, pelvic cyst, ovarian abnormalities, or any other concerns. Sound of the abdomen pelvis was considered, but deemed unnecessary at this time given lack of imaging findings and improvement with supportive care. Because patient at baseline without signs or symptoms of clinical decompensation, deemed appropriate for discharge. Results were relayed to patient who voiced understanding and were agreeable to outpatient management and follow up. At the time of discharge the patient was hemodynamically stable, tolerating PO, and mobilizing appropriately. Critical Care <Milton Galloway MD - Last Filed: 11/13/23 14:43> Critical Care Time Critical Care Time: No
[2023-11-13 14:23] LABS: Coronavirus 19, PCR Not Detected (NotDetected); Influenza A, PCR Not Detected (NotDetected); Influenza B, PCR Not Detected (NotDetected)
[2023-11-13 14:37] LABS: Microscopic, Urine URINE MICROSCOPIC (MICROSCOPIC)
[2023-11-13 14:40] LABS: Appearance,Urine CLEAR (Clear); Bilirubin,Urine Negative (Negative); Blood, Urine 1+ (Negative); Color,Urine YELLOW (Yellow); Glucose,Urine (UA) Negative (Negative); Ketones,Urine Negative (Negative); Leukocyte Esterase,Urine Negative (Negative); Nitrate,Urine Negative (Negative); Protein,Urine Negative (Negative); Specific Gravity, Urine >= 1.030 (1.005-1.030); Urobilinogen,Urine 0.2 EU/dl (0.2)
[2023-11-13 14:50] LABS: Amorphous Sediment,Urine 2+ /lpf; RBC,Urine Occasional #/hpf (0-3); WBC,Urine Occasional #/hpf (0-3)
[2023-11-13 14:52] VITALS: BP 138/90; PULSE 98; O2SAT 96
[2023-11-13 14:52] LABS: Alanine Aminotransferase 19 U/L (12-78); Albumin Level 4.4 g/dl (3.5-5.0); Albumin/Globulin Ratio 1.3 (1.1-1.8); Alkaline Phosphatase 93 U/L (38-126); Anion Gap 11.6 mEq/L (5-15); Aspartate Amino Transferase 27 U/L (14-36); Bilirubin,Total 0.5 mg/dl (0.2-1.3); Blood Urea Nitrogen 13 mg/dl (7-17); Calcium 8.3 mg/dl (8.4-10.2); Carbon Dioxide 25 mmol/L (22.0-30.0); Chloride 105 mmol/L (98-107); Creatinine Clearance Estimated 133 mL/min (50-200); Estimated Glomerular Filt Rate 98 ml/min (>60); GFR (African American) 118 ML/MIN (>60); Globulin 3.4 g/dL (1.3-3.2); Glucose 102 mg/dl (74-100); Lipase 22 U/L (23-300); Potassium 3.6 mmoL/L (3.5-5.1); Sodium 138 mmol/L (136-145); Total Protein,Serum 7.8 g/dl (6.3-8.2)
[2023-11-13] MEDS: LACTATED RINGERS 1000ML 1,000 ML 999 ML IV (14:52)
[2023-11-13] MEDS: ACETAMINOPHEN 1,000MG/100ML VIAL 1000 MG IV (14:52)
[2023-11-13] MEDS: ONDANSETRON 4MG/2ML VIAL 4 MG IV (14:53)
[2023-11-13] MEDS: MORPHINE 4MG/ML SYRINGE 4 MG IV (14:53)
[2023-11-13 14:58] LABS: Basophils % 0.4 % (0.1-2.0); Eosinophils % 0.6 % (0.1-12.0); Hematocrit 37.7 % (37.0-47.0); Hemoglobin 12.6 g/dL (12.2-16.2); Lymphocytes # 0.4 K/mm3 (0.7-4.5); Lymphocytes % 7.7 % (10-50); Mean Corpuscular HGB Conc 33.3 g/dL (31.8-35.4); Mean Corpuscular Hemoglobin 25.5 pg (27.0-31.2); Mean Corpuscular Volume 76.6 fl (81-99); Mean Platelet Volume 7.2 fl (7.4-10.4); Monocytes # 0.2 K/mm3 (0.1-1.0); Monocytes % 4.3 % (1.7-9.3); Neutrophils # 4.8 K/mm3 (1.8-7.8); Platelet Count 262 K/mm3 (142-424); Red Blood Count 4.92 M/mm3 (4.20-5.40); Red Cell Distribution Width 17.4 % (11.5-17.5); White Blood Count 5.5 K/mm3 (4.8-10.8)
[2023-11-13 15:01] VITALS: BP 111/68; PULSE 90; O2SAT 96
[2023-11-13 15:01] LABS: MANUAL DIFFERENTIAL MANUAL DIFFERENTIAL (MANUAL DIFF)
[2023-11-13 15:02] LABS: HCG Qualitative, Serum Negative (Negative)
--- NOTE | 2023-11-13 15:12 | PC.NURSE ---
PT GOING TO CT
[2023-11-13] MEDS: SODIUM CHLORIDE 0.9% 10ML SYR (RAD ONLY) 10 ML IV (15:21)
[2023-11-13] MEDS: IOPAMIDOL-370 (76%);100ML BOTTLE 75 ML IV (15:21)
[2023-11-13 15:55] LABS: Hypochromasia 2+; Lymphocytes % 9 % (10-50); Monocytes % 2 % (2-9); Neutrophils % 89 % (42-76); Platelet Estimate Normal; Total Cells Counted 100
[2023-11-13 16:22] VITALS: BP 112/78; PULSE 78; RESP 16; TEMP 36.6
== END 2023-11-13 16:23 | disposition home or self-care (01) ==
PROVIDERS: Emergency Medicine; Emergency Provider Emergency Medicine; PCP Nurse Practitioner Family
DX: R10.31 Right lower quadrant pain (principal); R11.2 Nausea with vomiting, unspecified; K21.9 Gastro-esophageal reflux disease without esophagitis
CPT/HCPCS: 74177; 80053; 81001; 83690; 84703; 85007; 85025; 87636; 96361; 96374; 96375; 99285; J0131; J2405; Q9967

== ENCOUNTER 2024-01-11 14:42 | Outpatient (CLI) | payer OTHER, SELFPAY ==
[2024-01-11 15:36] LABS: Basophils # 0.1 K/mm3 (0-0.2); Basophils % 0.9 % (0.1-2.0); Eosinophils # 0.2 K/mm3 (0.0-0.4); Eosinophils % 2.8 % (0.1-12.0); Hematocrit 38.1 % (37.0-47.0); Hemoglobin 11.9 g/dL (12.2-16.2); Lymphocytes # 1.9 K/mm3 (0.7-4.5); Lymphocytes % 24.1 % (10-50); Mean Corpuscular HGB Conc 31.3 g/dL (31.8-35.4); Mean Corpuscular Hemoglobin 26.5 pg (27.0-31.2); Mean Corpuscular Volume 84.7 fl (81-99); Mean Platelet Volume 7.3 fl (7.4-10.4); Monocytes # 0.5 K/mm3 (0.1-1.0); Monocytes % 5.7 % (1.7-9.3); Neutrophils # 5.2 K/mm3 (1.8-7.8); Neutrophils % 66.5 % (37.0-80.0); Platelet Count 308 K/mm3 (142-424); Red Cell Distribution Width 15.8 % (11.5-17.5); White Blood Count 7.8 K/mm3 (4.8-10.8)
[2024-01-11 18:04] LABS: Iron 61 ug/dL (37-170)
[2024-01-11 18:14] LABS: Total Iron Binding Capacity 412 ug/dL (265-497)
[2024-01-11 18:41] LABS: Ferritin 6.36 ng/ml (6.24-137)
== END 2024-01-11 23:59 | disposition home or self-care (01) ==
LOC: LAB 14:43
PROVIDERS: PCP Nurse Practitioner Family; Visit Provider Internal Medicine Medical Oncology
DX: E61.1 Iron deficiency (principal)
CPT/HCPCS: 36415; 82728; 83540; 83550; 85025

== ENCOUNTER 2024-01-21 16:59 | Emergency (ER) | payer OTHER, SELFPAY ==
[2024-01-21 17:00] VITALS: BP 126/85; PULSE 86; RESP 18; TEMP 36.8; O2SAT 99; BMI 23.6
--- NOTE | 2024-01-21 17:30 | PC.NURSE ---
IV PLACED BY DR ALCARAZ VIA US, PT TOLERATED WELL
[2024-01-21 17:32] LABS: Microscopic, Urine URINE MICROSCOPIC (MICROSCOPIC)
[2024-01-21] MEDS: LACTATED RINGERS 1000ML 1,000 ML 999 ML IV (17:35)
[2024-01-21] MEDS: ACETAMINOPHEN 1,000MG/100ML VIAL 1000 MG IV (17:35)
[2024-01-21] MEDS: ONDANSETRON 4MG/2ML VIAL 4 MG IV (17:35)
--- NOTE | 2024-01-21 17:35 | PC.NURSE ---
PT PROVIDED WARM BLANKET, CALL LIGHT WITHIN REACH. NO NEEDS AT THIS TIME
[2024-01-21 17:38] LABS: Basophils # 0.1 K/mm3 (0-0.2); Basophils % 0.6 % (0.1-2.0); Eosinophils # 0.1 K/mm3 (0.0-0.4); Eosinophils % 1.5 % (0.1-12.0); Hematocrit 37.2 % (37.0-47.0); Hemoglobin 11.9 g/dL (12.2-16.2); Lymphocytes # 1.9 K/mm3 (0.7-4.5); Lymphocytes % 21.3 % (10-50); Mean Corpuscular Hemoglobin 26.8 pg (27.0-31.2); Mean Corpuscular Volume 83.9 fl (81-99); Mean Platelet Volume 7.2 fl (7.4-10.4); Monocytes # 0.6 K/mm3 (0.1-1.0); Monocytes % 6.1 % (1.7-9.3); Neutrophils # 6.3 K/mm3 (1.8-7.8); Neutrophils % 70.4 % (37.0-80.0); Platelet Count 309 K/mm3 (142-424); Red Blood Count 4.43 M/mm3 (4.20-5.40); Red Cell Distribution Width 16.2 % (11.5-17.5)
--- NOTE | 2024-01-21 17:38 | CT_ITS ---
PROCEDURE INFORMATION: Exam: CT Abdomen And Pelvis With Contrast Exam date and time: 01/21/2024 6:27 PM Age: 33 years old Clinical indication: Abdominal pain; Additional info: Rlq abd pain/fever/n/v TECHNIQUE: Imaging protocol: Computed tomography of the abdomen and pelvis with contrast. Radiation optimization: All CT scans at this facility use at least one of these dose optimization techniques: automated exposure control; mA and/or kV adjustment per patient size (includes targeted exams where dose is matched to clinical indication); or iterative reconstruction. Contrast material: ISOVUE; Contrast volume: 75 ml; Contrast route: IV; COMPARISON: CT ABDOMEN PELVIS W CON 11/13/2023 3:12 PM FINDINGS: Lungs: The visualized lung bases demonstrate no focal infiltrates. Liver: The liver appears within normal limits. Gallbladder and bile ducts: There has been a cholecystectomy. Pancreas: The pancreas is normal. Spleen: The spleen is normal. Adrenal glands: The adrenal glands appear within normal limits. Kidneys and ureters: The kidneys are normal. Stomach and bowel: Unremarkable. No obstruction. No mucosal thickening. Appendix: The appendix appears within normal limits. Intraperitoneal space: No free air. No evidence for focal fluid collection or ascites. No evidence for omental thickening. Vasculature: Unremarkable. No abdominal aortic aneurysm. Lymph nodes: Unremarkable. No pathologically enlarged lymph nodes are identified. Urinary bladder: The bladder appears within normal limits. No wall thickening. Reproductive: The uterus and adnexal structures appear normal. Bones/joints: Unremarkable. No acute fracture. Soft tissues: Unremarkable. IMPRESSION: 1. Normal appearing appendix. 2. No acute inflammatory process identified within the abdomen or pelvis.
--- NOTE | 2024-01-21 17:39 | HMH.EDGENADL ---
Discharge Plan Disposition Patient Disposition: Home, Self-Care Condition: Good Prescriptions Prescriptions: No Action gabapentin 300 mg capsule 300 mg PO TID Patient Comments: TAKE ONE CAPSULE BY MOUTH THREE TIMES DAILY MAY CAUSE DROWSINESS escitalopram oxalate 20 mg tablet 20 mg PO DAILY Patient Comments: TAKE ONE TABLET BY MOUTH EVERY DAY AT BEDTIME ondansetron 4 mg tablet,disintegrating 4 mg PO Q6H PRN (Reason: nausea and vomiting) Qty: 10 0RF Referrals Follow up/Referrals: Michaela Sousa APRN [Primary Care Provider] - See instructions Activity Restrictions/Add. Instructions Additional Instructions/Restrictions: You were evaluated in the emergency department today. At this time, your CT imaging read is pending. Please follow-up closely for the results on your chart. I will also keep an eye out for results. Return to the emergency department for new or worsening symptoms. Follow-up with your primary care provider in the next 3 days for reassessment. Clinical Impressions Clinical Impression: Abdominal pain, RLQ Instructions Patient Instructions: DI for Acute Abdominal Pain Discharge ED Provider: Trice Rolon General Adult HPI General Chief complaint: Abdominal Pain Stated complaint: abd pain vomiting fever body ache Time Seen by Provider: 01/21/24 17:08 Mode of Arrival: Ambulatory Source of Information: Patient Limitations: No Limitations Description of Symptoms (Recalled from ER Triage Doc. by RN): PT REPORTS INTERMITTENT RLQ ABDOMINAL PAIN X 3 DAYS. PAIN WORSE TODAY, LOW GRADE TEMP 99.6. REPORTS N/V. DENIES DIARRHEA. NO BLOODY STOOLS. REPORTS NORMAL BM TODAY. LMP ABOUT 2 WEEKS AGO History of Present Illness HPI narrative: This patient is a 33-year-old female with history of endometriosis status post multiple laparoscopic surgeries, ovarian cysts, prior Clarice-Guevara tear, bleeding peptic ulcers, Piero's disease, and thrush presenting to the emergency department for evaluation with concern for abdominal pain, nausea, and vomiting. Patient reports over the last 3 days, she has been having nonlocalized abdominal pain as well as nausea and vomiting, however her pain has since localized to her right lower quadrant. She is also been having fever with Tmax 99.6 ?F at home. No other concerns, such as changes in bowel movements, urinary symptoms, or other issues. Related Data Home Medications Medication Instructions Recorded Confirmed escitalopram oxalate 20 mg tablet 20 mg PO DAILY Anxiety 11/29/22 01/11/24 gabapentin 300 mg capsule 300 mg PO TID neuropathy 11/29/22 01/11/24 Previous Rx's Medication Instructions Recorded ondansetron 4 mg disintegrating 4 mg PO Q6H PRN nausea and 11/13/23 tablet vomiting #10 tabs Allergies Allergy/AdvReac Type Severity Reaction Status Date / Time celecoxib [From Celebrex] Allergy Severe Anaphylaxis Verified 01/11/24 14:03 latex [LATEX] Allergy Severe Anaphylaxis Verified 01/11/24 14:03 coconut Allergy Unknown Anaphylaxis Verified 01/11/24 14:03 Pertussis Vaccines Allergy Unknown Unknown Verified 01/11/24 14:03 [PERTUSSIS VACCINES] allergy reaction pineapple [PINEAPPLE] Allergy Unknown Unknown Verified 01/11/24 14:03 allergy reaction Sulfa (Sulfonamide Allergy Unknown Unknown Verified 01/11/24 14:03 Antibiotics) allergy [SULFA (SULFONAMIDE reaction ANTIBIOTICS)] dicyclomine [From Bentyl] AdvReac Verified 01/11/24 14:03 ketamine AdvReac Verified 01/11/24 14:03 [facility] Dis[facility]: The information contained in this section may have been updated after the patient was seen, as this information can be updated by other users. 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/hazards: No caffeine: Yes ROS Obtained: Yes All systems reviewed & no additional complaints except as documented Physical Exam General General appearance: alert and in no apparent distress Head Head exam: atraumatic and normocephalic Eye Eye exam: Present normal appearance, PERRL and EOMI ENT ENT exam: Present normal exam, normal oropharynx, mucous membranes moist and normal external ear exam Neck Neck exam: Present normal inspection, full ROM and trachea midline; Absent tenderness Chest Chest inspection: Present normal inspection and symmetric chest wall rise; Absent tenderness Respiratory Respiratory exam: Present normal lung sounds bilaterally; Absent respiratory distress, wheezes, stridor or accessory muscle use Cardiovascular Cardiovascular exam: Present regular rate and normal rhythm Abdominal Exam Abdominal exam: Present soft and tenderness (Right lower quadrant); Absent distention, guarding, rebound or rigidity Extremities Exam Extremities exam: Present normal inspection, full ROM and normal capillary refill; Absent tenderness or edema Back Exam Back exam: Present normal inspection and full ROM; Absent tenderness Neurological Exam Neurological exam: Present alert, oriented X3, CN II-XII intact and normal gait; Absent motor sensory deficit Psychiatric Psychiatric exam: Present normal affect and normal mood Skin Skin exam: Present warm and dry Medical Decision Making Medical Records Medical records reviewed: Yes I reviewed the patient's medical records. Federico Inquiry Pt receiving controlled substance: No Vital Signs: 01/21/24 17:00 01/21/24 18:56 Temperature 98.2 F 98.2 F Temperature Source Oral Oral Pulse Rate 82 Pulse Rate [Radial] 86 Respiratory Rate 18 18 Blood Pressure 122/88 Blood Pressure [Right Arm] 126/85 Blood Pressure Mean [Right Arm] 98 Blood Pressure Source Automatic Cuff Blood Pressure Source [Right Arm] Automatic Cuff Blood Pressure Position Sitting 02 Sat by Pulse Oximetry 99 Oxygen Delivery Method Room Air Room Air Lab Data Lab results reviewed: Yes I reviewed the patient's lab results. Lab Results 01/21/24 17:08: Urine Color Yellow, Urine Appearance Clear, Urine pH 6.5, Ur Specific [place] 1.025, Urine Protein Negative, Urine Glucose (UA) Negative, Urine Ketones Negative, Urine Blood Trace-i, Urine Nitrate Negative, Urine Bilirubin Negative, Urine Urobilinogen 0.2, Ur Leukocyte Esterase Negative, Urine RBC 3-5, Urine WBC None, Ur Squamous Epith Cells 3-5, Urine Bacteria Trace 01/21/24 17:10: WBC 9.0, RBC 4.43, Hgb 11.9 L, Hct 37.2, MCV 83.9, MCH 26.8 L, MCHC 32.0, RDW 16.2, Plt Count 309, MPV 7.2 L, Neut % (Auto) 70.4, Lymph % (Auto) 21.3, [place] % (Auto) 6.1, Eos % (Auto) 1.5, Baso % (Auto) 0.6, Neut # (Auto) 6.3, Lymph # (Auto) 1.9, [place] # (Auto) 0.6, Eos # (Auto) 0.1, Baso # (Auto) 0.1, Sodium 140, Potassium 3.4 L, Chloride 107, Carbon Dioxide 26, Anion Gap 10.4, BUN 13, Creatinine 0.60, Estimated Creat Clear 156, Estimated GFR 117, Est GFR ( Amer) 141, Glucose 93, Calcium 9.8, Total Bilirubin 0.4, AST 27, ALT 18, Alkaline Phosphatase 96, Total Protein 7.8, Albumin 4.6, Globulin 3.2, Albumin/Globulin Ratio 1.4, Lipase 33, Serum HCG, Qual Negative 01/21/24 17:10 01/21/24 17:10 Orders (Tests/Meds): ED MEDICATIONS Discontinued Medications Generic Name Dose Route Start Last Admin Trade Name Freq PRN Reason Stop Dose Admin Acetaminophen 1,000 mg 01/21/24 17:28 01/21/24 17:35 Acetaminophen 1,000mg/100ml Vial IV 01/21/24 17:29 1,000 mg ONCE ONE Administration Lactated Ringer's 1,000 mls @ 999 mls/hr 01/21/24 17:28 01/21/24 17:35 Lactated Ringer's 1000 Ml Bag IV 01/21/24 18:28 999 mls/hr .Q1H1M ONE Administration Iopamidol 75 ml 01/21/24 18:33 01/21/24 18:35 Iopamidol-370 (76%);100ml Bottle IV 01/21/24 18:34 75 ml ONCE ONE Administration Ketorolac Tromethamine 15 mg 01/21/24 17:43 Ketorolac 30mg/Ml Vial IV 01/21/24 17:44 ONCE ONE Ondansetron HCl 4 mg 01/21/24 17:28 01/21/24 17:35 Ondansetron 4mg/2ml Vial IV 01/21/24 17:29 4 mg ONCE ONE Administration Sodium Chloride 50 ml 01/21/24 18:33 01/21/24 18:35 0.9 % Sodium Chloride 50 Ml Vial IV 01/21/24 18:34 50 ml ONCE ONE Administration ORDERS Category Date Time Status CT abdomen pelvis w con Stat Cat Scan 01/21/24 17:38 Completed Complete Blood Count Auto Diff Stat Lab 01/21/24 17:10 Completed Comprehensive Metabolic Panel Stat Lab 01/21/24 17:10 Completed HCG Qualitative, Serum Stat Lab 01/21/24 17:10 Completed Lipase Stat Lab 01/21/24 17:10 Completed Urinalysis and Microscopic Stat Lab 01/21/24 17:08 Completed Medical Decision Narrative: In summary, this patient is a 33-year-old female presenting to the Emergency Department for evaluation of abdominal pain, nausea, and vomiting. Differential diagnoses considered include but are not limited to appendicitis, cystitis, pyelonephritis, ureterolithiasis, colitis, ovarian cyst, endometriosis pain. Ruling out the most morbid conditions drove assessment. On exam, the patient is uncomfortable appearing with right lower quadrant tenderness. Workup included CBC, CMP, lipase, test, urinalysis, and CT abdomen pelvis with IV contrast. She was given a bolus of IV fluids as well as IV acetaminophen, toradol, and Zofran for symptomatic improvement. I independently interpreted CT scan prior to the radiologist read and noted no obvious large ovarian cyst and no concern for appendicitis. Please see their read for final interpretation. Labs were obtained that demonstrated no acutely concerning abnormalities. On reassessment, patient is in no acute distress with reassuring vital signs on cardiac telemetry. Patient elected to leave prior to results of her CT scan, as her dog had to be rushed to the emergency vet. Advised her that the reads were not back, but they did come back after patient directed discharge and did not demonstrate any acutely concerning pathology. Patient was given strict return precautions and instructions for close outpatient follow-up. Critical Care Critical Care Time Critical Care Time: No
[2024-01-21 17:50] LABS: Chloride 107 mmol/L (98-107); Potassium 3.4 mmoL/L (3.5-5.1); Sodium 140 mmol/L (136-145)
[2024-01-21 17:53] LABS: Appearance,Urine CLEAR (Clear); Bilirubin,Urine Negative (Negative); Blood, Urine TRACE-I (Negative); Color,Urine YELLOW (Yellow); Glucose,Urine (UA) Negative (Negative); Ketones,Urine Negative (Negative); Leukocyte Esterase,Urine Negative (Negative); Nitrate,Urine Negative (Negative); PH,Urine 6.5 (5.0-8.5); Protein,Urine Negative (Negative); Specific Gravity, Urine 1.025 (1.005-1.030); Urobilinogen,Urine 0.2 EU/dl (0.2)
[2024-01-21 17:53] LABS: Alanine Aminotransferase 18 U/L (12-78); Albumin Level 4.6 g/dl (3.5-5.0); Albumin/Globulin Ratio 1.4 (1.1-1.8); Alkaline Phosphatase 96 U/L (38-126); Anion Gap 10.4 mEq/L (5-15); Aspartate Amino Transferase 27 U/L (14-36); Bilirubin,Total 0.4 mg/dl (0.2-1.3); Blood Urea Nitrogen 13 mg/dl (7-17); Calcium 9.8 mg/dl (8.4-10.2); Carbon Dioxide 26 mmol/L (22.0-30.0); Creatinine Clearance Estimated 156 mL/min (50-200); Estimated Glomerular Filt Rate 117 ml/min (>60); GFR (African American) 141 ML/MIN (>60); Globulin 3.2 g/dL (1.3-3.2); Glucose 93 mg/dl (74-100); Lipase 33 U/L (23-300); Total Protein,Serum 7.8 g/dl (6.3-8.2)
[2024-01-21 18:23] LABS: HCG Qualitative, Serum Negative (Negative)
[2024-01-21 18:23] LABS: Bacteria,Urine Trace /lpf
--- NOTE | 2024-01-21 18:29 | PC.NURSE ---
PT TO CT
[2024-01-21] MEDS: IOPAMIDOL-370 (76%);100ML BOTTLE 75 ML IV (18:35)
[2024-01-21] MEDS: 0.9 % SODIUM CHLORIDE 50 ML VIAL IV (18:35)
--- NOTE | 2024-01-21 18:38 | PC.NURSE ---
PT RETURNED FROM CT
[2024-01-21 18:56] VITALS: BP 122/88; PULSE 82; RESP 18; TEMP 36.8; O2SAT 100
== END 2024-01-21 18:56 | disposition home or self-care (01) ==
PROVIDERS: Emergency Provider Emergency Medicine; PCP Nurse Practitioner Family
DX: R10.31 Right lower quadrant pain (principal); R11.2 Nausea with vomiting, unspecified
CPT/HCPCS: 74177; 80053; 81001; 83690; 84703; 85025; 96361; 96374; 96375; 99284; J0131; J2405; Q9967

== ENCOUNTER 2024-01-27 09:33 | Outpatient (CLI) | payer OTHER, SELFPAY ==
[2024-01-27] MEDS: FAMOTIDINE 20MG TABLET 20 MG (09:40)
[2024-01-27] MEDS: ACETAMINOPHEN 325MG TAB 650 MG (09:40)
[2024-01-27] MEDS: DEXAMETHASONE 4MG TABLET 8 MG (09:40)
[2024-01-27] MEDS: diphenhydrAMINE 50MG CAPSULE 50 MG PO (09:40)
[2024-01-27] MEDS: 0.9 % SODIUM CHLORIDE 50 ML 100 ML IV (10:14)
[2024-01-27] MEDS: ferumoxytoL 510 MG in 0.9 % SODIUM CHLORIDE 50 ML 268 MG IV (10:14)
[2024-01-27 10:18] VITALS: BP 116/79; PULSE 71; RESP 18; TEMP 37.3; O2SAT 100
[2024-01-27 10:41] VITALS: BP 114/79; PULSE 74; RESP 18; O2SAT 100
== END 2024-01-27 10:41 | disposition home or self-care (01) ==
LOC: INF 09:34
PROVIDERS: PCP Nurse Practitioner Family; Visit Provider Internal Medicine Medical Oncology
DX: D50.9 Iron deficiency anemia, unspecified (principal); D50.0 Iron deficiency anemia secondary to blood loss (chronic)
CPT/HCPCS: 96374; Q0138

== ENCOUNTER 2024-01-31 16:02 | Outpatient (CLI) | payer OTHER, SELFPAY ==
[2024-01-31] MEDS: FAMOTIDINE 20MG TABLET 20 MG PO (16:30)
[2024-01-31] MEDS: diphenhydrAMINE 50MG CAPSULE 50 MG PO (16:30)
[2024-01-31] MEDS: ACETAMINOPHEN 325MG TAB 650 MG PO (16:30)
[2024-01-31] MEDS: DEXAMETHASONE 4MG TABLET 8 MG PO (16:30)
[2024-01-31] MEDS: SODIUM CHLORIDE 0.9% 10ML FLUSH SYRINGE 10 ML IV (16:43)
[2024-01-31 17:01] VITALS: BP 117/73; PULSE 72; RESP 20; TEMP 36.6; O2SAT 97
[2024-01-31] MEDS: ferumoxytoL 510 MG in 0.9 % SODIUM CHLORIDE 50 ML 268 MG IV (17:01)
[2024-01-31] MEDS: SODIUM CHLORIDE 0.9% 50ML BAG 50 ML IV (17:02)
[2024-01-31 17:32] VITALS: BP 114/68; PULSE 68; RESP 20; O2SAT 98
== END 2024-01-31 17:36 | disposition home or self-care (01) ==
LOC: INF 16:03
PROVIDERS: Visit Provider Internal Medicine Medical Oncology
DX: D50.0 Iron deficiency anemia secondary to blood loss (chronic) (principal); T45.4X5A Adverse effect of iron and its compounds, initial encounter; D50.9 Iron deficiency anemia, unspecified
CPT/HCPCS: 96374; Q0138

== ENCOUNTER 2024-02-04 15:53 | Emergency (ER) | payer OTHER, SELFPAY ==
--- NOTE | 2024-02-04 16:08 | EXP.UTC ---
Discharge Plan Disposition Patient Disposition: Home, Self-Care Condition: Good Prescriptions Prescriptions: New azithromycin [Zithromax] 250 mg tablet 250 mg PO UD DOSE PK Qty: 6 0RF Rx Instructions: Take two (2) tablets today, then one (1) tablet days #2 thru #5 methylprednisolone 4 mg Tablets,Dose Pack 4 mg PO DIRECTED 6 Days Qty: 21 0RF Rx Instructions: Take 1 pack as directed for 6 days [id number] [Bromfed DM] 2-30-10 mg/5 mL Syrup 5 ml PO Q6H PRN (Reason: Cough) Qty: 240 0RF No Action gabapentin 300 mg capsule 300 mg PO TID Patient Comments: TAKE ONE CAPSULE BY MOUTH THREE TIMES DAILY MAY CAUSE DROWSINESS escitalopram oxalate 20 mg tablet 20 mg PO DAILY Patient Comments: TAKE ONE TABLET BY MOUTH EVERY DAY AT BEDTIME ondansetron 4 mg tablet,disintegrating 4 mg PO Q6H PRN (Reason: nausea and vomiting) Qty: 10 0RF Referrals Follow up/Referrals: Michaela Sousa APRN [Primary Care Provider] - See instructions Activity Restrictions/Add. Instructions Additional Instructions/Restrictions: Drink plenty of fluids. Take tylenol or ibuprofen for pain or fever. Take the medications as directed. Follow up with your regular doctor. GO TO THE ER FOR ANY WORSENING SYMPTOMS Clinical Impressions Clinical Impression: Acute viral syndrome, Pharyngitis Instructions Patient Instructions: DI for Pharyngitis/Tonsillopharyngitis -- Adult, DI for Viral Syndrome Discharge ED Provider: Nolan Dasilva [facility] General Stated complaint: cough sore throat congestion head ache Time Seen by Provider: 02/04/24 16:08 Related Data Home Medications Medication Instructions Recorded Confirmed escitalopram oxalate 20 mg tablet 20 mg PO DAILY Anxiety 11/29/22 01/31/24 gabapentin 300 mg capsule 300 mg PO TID neuropathy 11/29/22 01/31/24 Previous Rx's Medication Instructions Recorded ondansetron 4 mg disintegrating 4 mg PO Q6H PRN nausea and 11/13/23 tablet vomiting #10 tabs azithromycin 250 mg tablet 250 mg PO UD DOSE PK #6 tabs 02/04/24 (Zithromax) [id number]-bkhhmcplwvrvyqe-YA 5 ml PO Q6H PRN Cough #240 mL 02/04/24 2 mg-30 mg-10 mg/5 mL oral syrup (Bromfed DM) methylprednisolone 4 mg tablets in 4 mg PO DIRECTED 6 days #21 tabs 02/04/24 a dose pack Allergies Allergy/AdvReac Type Severity Reaction Status Date / Time celecoxib [From Celebrex] Allergy Severe Anaphylaxis Verified 01/31/24 16:32 latex [LATEX] Allergy Severe Anaphylaxis Verified 01/31/24 16:32 coconut Allergy Unknown Anaphylaxis Verified 01/31/24 16:32 Pertussis Vaccines Allergy Unknown Unknown Verified 01/31/24 16:32 [PERTUSSIS VACCINES] allergy reaction pineapple [PINEAPPLE] Allergy Unknown Unknown Verified 01/31/24 16:32 allergy reaction Sulfa (Sulfonamide Allergy Unknown Unknown Verified 01/31/24 16:32 Antibiotics) allergy [SULFA (SULFONAMIDE reaction ANTIBIOTICS)] dicyclomine [From Bentyl] AdvReac Verified 01/31/24 16:32 ketamine AdvReac Verified 01/31/24 16:32 PFSH PFS Disclaimer: The information contained in this section may have been updated after the patient was seen, as this information can be updated by other users. 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/hazards: No caffeine: Yes ROS Obtained: Yes All systems reviewed & no additional complaints except as documented Constitutional Constitutional: Reports poor appetite Eyes Eyes: Reports system reviewed and no additional complaints, except as documented ENT Ears, Nose, Mouth, and Throat: Reports as per HPI Cardiovascular Cardiovascular: Reports system reviewed and no additional complaints, except as documented and Denies chest pain Respiratory Respiratory: Denies shortness of breath, Denies chest congestion, Reports cough, Denies stridor and Denies wheezing Gastrointestinal Gastrointestingal: Reports system reviewed and no additional complaints, except as documented; Denies abdominal pain, diarrhea or vomiting Musculoskeletal Musculoskeletal: Reports system reviewed and no additional complaints, except as documented and Denies arthralgias Integumentary/Breasts Skin/Breast: Reports system reviewed and no additional complaints, except as documented and Denies rash Neurologic Neurologic: Denies paresthesias Allergic/Immunologic Allergic/Immunologic: Denies wheezing Physical Exam General General appearance: alert and in no apparent distress Eye Eye exam: Present normal appearance, PERRL and EOMI ENT ENT exam: Present mucous membranes moist and normal external ear exam Expanded ENT Exam External ear exam: Present normal external inspection TM/Canal exam: Bilateral TM: erythema and bulging Nose exam: Absent sinus tenderness Nasal speculum exam: Bilateral: normal Mouth exam: Present normal external inspection; Absent drooling Teeth exam: Present normal inspection Throat exam: Present tonsillar erythema and tonsillomegaly Neck Neck exam: Present normal inspection, full ROM and trachea midline; Absent tenderness, lymphadenopathy or thyromegaly Chest Chest inspection: Present normal inspection and symmetric chest wall rise; Absent tenderness or rash Respiratory Respiratory exam: Present normal lung sounds bilaterally; Absent respiratory distress, wheezes, stridor or accessory muscle use Cardiovascular Cardiovascular exam: Present regular rate, normal rhythm and normal heart sounds Abdominal Exam Abdominal exam: Present soft; Absent distention, tenderness, guarding, rebound or rigidity Extremities Exam Extremities exam: Present normal inspection, full ROM and normal capillary refill; Absent tenderness or calf tenderness Back Exam Back exam: Present normal inspection and full ROM; Absent tenderness Neurological Exam Neurological exam: Present alert and oriented X3 Psychiatric Psychiatric exam: Present normal affect and normal mood Skin Skin exam: Present warm, dry, intact and normal color Lymphatic Lymphatic Findings: no adenopathy Medical Decision Making Medical Records Medical records reviewed: No I reviewed the patient's medical records. Federico Inquiry Pt receiving controlled substance: No
[2024-02-04 16:25] VITALS: BP 127/77; PULSE 77; RESP 18; TEMP 36.9; O2SAT 100; BMI 23.8
[2024-02-04 16:40] LABS: UTC Strep Screen (Rapid) Negative (Negative)
--- NOTE | 2024-02-04 16:54 | PC.NURSE ---
Sent rapid to lab via tube system
[2024-02-04 16:56] VITALS: BP 127/77; PULSE 77; RESP 18; TEMP 36.9; O2SAT 100
[2024-02-04 16:59] LABS: Coronavirus 19, PCR Not Detected (NotDetected); Influenza A, PCR Not Detected (NotDetected); Influenza B, PCR Not Detected (NotDetected)
== END 2024-02-04 16:56 | disposition home or self-care (01) ==
PROVIDERS: Emergency Provider Nurse Practitioner Family; PCP Nurse Practitioner Family
DX: J02.9 Acute pharyngitis, unspecified (principal); R51.9 Headache, unspecified; R05.9 Cough, unspecified; B34.9 Viral infection, unspecified
CPT/HCPCS: 87636; 87880; 99212; 99214; G0463

== ENCOUNTER 2024-02-07 16:17 | Emergency (ER) | payer OTHER, BC, SELFPAY ==
[2024-02-07 16:35] VITALS: BP 115/82; PULSE 102; RESP 18; TEMP 36.7; O2SAT 97; BMI 25.2
--- NOTE | 2024-02-07 16:37 | ED_ITS ---
Discharge Plan Disposition Patient Disposition: Home, Self-Care Condition: Good Prescriptions Prescriptions: New promethazine-DM 6.25-15 mg/5 mL Syrup 5 ml PO Q6H PRN (Reason: Cough) Qty: 240 0RF prednisone 10 mg tablet 10 mg PO DIRECTED 9 Days Qty: 21 0RF Rx Instructions: Take 4 tablets daily for 3 days, then take 2 tablets daily for 3 days, then take 1 tablet daily for 3 days, then stop. amoxicillin-pot clavulanate 875-125 mg Tablet 1 tab PO Q12H Qty: 20 0RF Discontinued azithromycin [Zithromax] 250 mg tablet 250 mg PO UD DOSE PK Qty: 6 0RF Rx Instructions: Take two (2) tablets today, then one (1) tablet days #2 thru #5 methylprednisolone 4 mg Tablets,Dose Pack 4 mg PO DIRECTED 6 Days Qty: 21 0RF Rx Instructions: Take 1 pack as directed for 6 days No Action gabapentin 300 mg capsule 300 mg PO TID Patient Comments: TAKE ONE CAPSULE BY MOUTH THREE TIMES DAILY MAY CAUSE DROWSINESS escitalopram oxalate 20 mg tablet 20 mg PO DAILY Patient Comments: TAKE ONE TABLET BY MOUTH EVERY DAY AT BEDTIME [id number] [Bromfed DM] 2-30-10 mg/5 mL Syrup 5 ml PO Q6H PRN (Reason: Cough) Qty: 240 0RF Referrals Follow up/Referrals: Michaela Sousa APRN [Primary Care Provider] - See instructions Activity Restrictions/Add. Instructions Additional Instructions/Restrictions: Drink plenty of fluids. Take tylenol or ibuprofen for pain or fever. Stop the azithromycin, stop the medrol dose pack. Start the Amoxicilin/clavulanate, start the prednisone Follow up with your regular doctor within the next 24 to 48 hours for a recheck. GO TO THE ER FOR ANY WORSENING SYMPTOMS The cough medication (promethazine dm) will make you drowsy, so don't drive or operate heavy machinery after taking it. Clinical Impressions Clinical Impression: Acute bronchitis Stand Alone Forms Stand Alone Forms: Work/School Release Instructions Patient Instructions: DI for Acute Bronchitis, Promethazine, Amoxicillin and Clavulanic Acid Discharge ED Provider: Nolan Dasilva [facility] [place] HPI General Stated complaint: SOA, wheezing, congestion Time Seen by Provider: 02/07/24 16:37 Related Data Home Medications Medication Instructions Recorded Confirmed escitalopram oxalate 20 mg tablet 20 mg PO DAILY Anxiety 11/29/22 02/07/24 gabapentin 300 mg capsule 300 mg PO TID neuropathy 11/29/22 02/07/24 Previous Rx's Medication Instructions Recorded weohklljhywncvd-iocddhsdrmvmaee-FL 5 ml PO Q6H PRN Cough #240 mL 02/04/24 2 mg-30 mg-10 mg/5 mL oral syrup (Bromfed DM) amoxicillin 875 mg-potassium 1 tab PO Q12H #20 tabs 02/07/24 clavulanate 125 mg tablet prednisone 10 mg tablet 10 mg PO DIRECTED 9 days #21 02/07/24 tabs promethazine-DM 6.25 mg-15 mg/5 mL 5 ml PO Q6H PRN Cough #240 mL 02/07/24 oral syrup Allergies Allergy/AdvReac Type Severity Reaction Status Date / Time celecoxib [From Celebrex] Allergy Severe Anaphylaxis Verified 02/07/24 16:45 latex [LATEX] Allergy Severe Anaphylaxis Verified 02/07/24 16:45 coconut Allergy Unknown Anaphylaxis Verified 02/07/24 16:45 Pertussis Vaccines Allergy Unknown Unknown Verified 02/07/24 16:45 [PERTUSSIS VACCINES] allergy reaction pineapple [PINEAPPLE] Allergy Unknown Unknown Verified 02/07/24 16:45 allergy reaction Sulfa (Sulfonamide Allergy Unknown Unknown Verified 02/07/24 16:45 Antibiotics) allergy [SULFA (SULFONAMIDE reaction ANTIBIOTICS)] dicyclomine [From Bentyl] AdvReac Verified 02/07/24 16:45 ketamine AdvReac Verified 02/07/24 16:45 PFSH PFS Disclaimer: The information contained in this section may have been updated after the patient was seen, as this information can be updated by other users. 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/hazards: No caffeine: Yes ROS Obtained: Yes All systems reviewed & no additional complaints except as documented Constitutional Constitutional: Reports chills and Reports fever(s) Eyes Eyes: Denies eye discharge ENT Ears, Nose, Mouth, and Throat: Reports as per HPI Cardiovascular Cardiovascular: Denies chest pain Respiratory Respiratory: Denies chest congestion and Reports cough Gastrointestinal Gastrointestingal: Reports nausea; Denies abdominal pain, constipation, cramping, diarrhea or vomiting Musculoskeletal Musculoskeletal: Denies arthralgias Integumentary/Breasts Skin/Breast: Denies rash Neurologic Neurologic: Denies paresthesias Physical Exam General General appearance: alert and in no apparent distress Head Head exam: atraumatic, normocephalic and normal inspection Eye Eye exam: Present normal appearance, PERRL and EOMI ENT ENT exam: Present mucous membranes moist and normal external ear exam Expanded ENT Exam TM/Canal exam: Bilateral TM: erythema and bulging Nose exam: Absent sinus tenderness Mouth exam: Present normal external inspection; Absent drooling Teeth exam: Present normal inspection Throat exam: Present tonsillar erythema, tonsillomegaly and tonsillar exudate Neck Neck exam: Present normal inspection, full ROM and trachea midline; Absent tenderness, meningismus or lymphadenopathy Chest Chest inspection: Present normal inspection and symmetric chest wall rise; Absent tenderness Respiratory Respiratory exam: Present normal lung sounds bilaterally; Absent respiratory distress, wheezes, stridor or accessory muscle use Cardiovascular Cardiovascular exam: Present regular rate and normal rhythm; Absent systolic murmur or diastolic murmur Abdominal Exam Abdominal exam: Present soft and normal bowel sounds; Absent distention, tenderness, guarding, rebound or rigidity Extremities Exam Extremities exam: Present normal inspection and normal capillary refill; Absent calf tenderness Back Exam Back exam: Present normal inspection and full ROM; Absent tenderness, CVA tenderness (R) or CVA tenderness (L) Neurological Exam Neurological exam: Present alert, oriented X3 and CN II-XII intact Psychiatric Psychiatric exam: Present normal affect and normal mood Skin Skin exam: Present warm, dry, intact and normal color Medical Decision Making Medical Records Medical records reviewed: No I reviewed the patient's medical records. Federico Inquiry Pt receiving controlled substance: No Lab Data Lab results reviewed: Yes I reviewed the patient's lab results.
--- NOTE | 2024-02-07 16:38 | XR_ITS ---
PROCEDURE INFORMATION: Exam: XR Chest Exam date and time: 02/07/2024 4:44 PM Age: 33 years old Clinical indication: Cough and other: Congestion; Additional info: Cough, congestion TECHNIQUE: Imaging protocol: Radiologic exam of the chest. Views: 2 views. COMPARISON: CR XR CHEST 2V 10/09/2023 7:04 PM FINDINGS: Lungs: Stable calcified granuloma in the peripheral right upper lung. Pleural spaces: No large effusion or pneumothorax. Heart/Mediastinum: No evidence of mediastinal widening or cardiac silhouette enlargement; the mediastinum and heart appear within normal limits for contour and size. Bones/joints: No evidence of acute osseous abnormalities within the visualized portions of the thoracic spine and ribs. Osseous structures appear appropriate for patient age. IMPRESSION: No dense parenchymal consolidation, pleural effusion, or pneumothorax.
--- NOTE | 2024-02-07 17:55 | PC.NURSE ---
Sent full panel to lab via tube system
[2024-02-07 17:57] VITALS: BP 115/82; PULSE 102; RESP 18; TEMP 36.7; O2SAT 97
[2024-02-07 18:14] LABS: Adenovirus,PCR Not Detected (NotDetected); Bordetella Pertussis Not Detected (NotDetected); Chlamydophila Pneumoniae, PCR Not Detected (NotDetected); Coronavirus 19, PCR Not Detected (NotDetected); Coronavirus 229E Not Detected (NotDetected); Coronavirus NL63 Not Detected (NotDetected); Coronavirus OC43 Not Detected (NotDetected); Coronovirus HKU1,PCR Not Detected (NotDetected); Human Metapneumovirus Not Detected (NotDetected); Influenza A, PCR Not Detected (NotDetected); Influenza AH1, 2009 Not Detected (NotDetected); Influenza AH1, PCR Not Detected (NotDetected); Influenza AH3,PCR Not Detected (NotDetected); Influenza B, PCR Not Detected (NotDetected); Mycoplasma Pneumoniae, PCR Not Detected (NotDetected); Parainfluenza 1, PCR Not Detected (NotDetected); Parainfluenza 2, PCR Not Detected (NotDetected); Parainfluenza 4, PCR Not Detected (NotDetected); Respiratory Syncytial Virus Not Detected (NotDetected); Rhinovirus/Enterovirus Not Detected (NotDetected)
[2024-02-07 22:22] LABS: Parainfluenza 3, PCR Detected (NotDetected)
== END 2024-02-07 17:57 | disposition home or self-care (01) ==
PROVIDERS: Emergency Provider Nurse Practitioner Family; PCP Nurse Practitioner Family
DX: J20.9 Acute bronchitis, unspecified (principal); B34.8 Other viral infections of unspecified site; R06.02 Shortness of breath; R06.2 Wheezing
CPT/HCPCS: 71046; 87581; 87632; 87635; 87798; 99212; 99214; G0463

== ENCOUNTER 2024-04-24 15:27 | Outpatient (CLI) | payer OTHER, SELFPAY ==
[2024-04-24 17:00] LABS: HCG,Quantitative 1175 mIU/ml (0-5.42)
== END 2024-04-24 23:59 | disposition home or self-care (01) ==
LOC: LAB 15:28
PROVIDERS: PCP Nurse Practitioner Family; Visit Provider Obstetrics & Gynecology
DX: N92.6 Irregular menstruation, unspecified (principal)
CPT/HCPCS: 36415; 84702

== ENCOUNTER 2024-04-28 16:00 | Emergency (ER) | payer OTHER, SELFPAY ==
[2024-04-28 16:11] VITALS: BP 122/61; PULSE 84; RESP 16; TEMP 37; O2SAT 98; BMI 23.6
--- NOTE | 2024-04-28 16:19 | US_ITS ---
PROCEDURE INFORMATION: Exam: US , Transvaginal and US Duplex Artery and Vein, Ovaries, Complete Exam date and time: 04/28/2024 4:18 PM Age: 33 years old Clinical indication: complicated by abdominal or pelvic pain; Left lower quadrant; First trimester (<14 weeks 0 days); Gestational age or lmp: 03/14/2024; ; Additional info: Pelvic pain, positive preg test LABS AND CLINICAL REPORTS: Last menstrual period start date: 03/14/2024 Gestational age (Established): 6 w 3 d Estimated due date (Established): 12/19/2024 TECHNIQUE: Imaging protocol: Real-time transvaginal obstetrical ultrasound of the maternal pelvis and a first trimester with image documentation. Transvaginal imaging was used for better evaluation of the fetus, adnexa, and/or cervix. Real-time duplex ultrasound scan of the arterial and venous flow of the ovaries with B-mode, color Doppler flow and spectral waveform analysis, Complete Duplex. Duplex exam was performed to evaluate for torsion and other vascular conditions. COMPARISON: US OB TRANSVAGINAL 10/01/2020 4:18 PM FINDINGS: GESTATION: Gestation: Single intrauterine gestational sac containing a yolk sac and questionable early pole. Yolk sac measures 3.4 mm. heart rate: No cardiac motion was detected, which is within normal limits for gestational age. Placenta: Double decidual reaction present without evidence of subchorionic hemorrhage. Amniotic fluid (Qualitative): Amniotic fluid is normal for gestational age. BIOMETRY: Gestational age (AUA): 5 w 6 d by crown-rump length and 5 w 4 d by mean gestational sac diameter. Estimated due date (AUA): 12/25/2024 Mean sac diameter: 0.68 cm. [place] rump length (CRL): Questionable early pole measures 2.34 mm, correlating with 5 w 6 d gestation. MATERNAL: Right ovary/adnexa: Right ovary measures 2.08 cm x 1.04 cm x 1.34 cm. Right ovarian volume is 1.52 mL. Color and spectral Doppler demonstrates normal ovarian arterial and venous blood flow. Left ovary/adnexa: Left ovary measures 3.62 cm x 2.35 cm x 2.26 cm. Left ovarian volume is 10.07 mL. Left ovary contains a physiologic corpus luteum. Color and spectral Doppler demonstrates normal ovarian arterial and venous blood flow. Intraperitoneal space: No intraperitoneal free fluid. IMPRESSION: 1. No acute findings. 2. Single intrauterine gestation, as above.
[2024-04-28 16:23] LABS: Appearance,Urine CLEAR (Clear); Bilirubin,Urine Negative (Negative); Blood, Urine Negative (Negative); Color,Urine YELLOW (Yellow); Glucose,Urine (UA) Negative (Negative); Ketones,Urine Negative (Negative); Leukocyte Esterase,Urine Negative (Negative); Microscopic, Urine URINE MICROSCOPIC (MICROSCOPIC); Nitrate,Urine Negative (Negative); Protein,Urine Negative (Negative); Specific Gravity, Urine >= 1.030 (1.005-1.030); Urobilinogen,Urine 0.2 EU/dl (0.2)
--- NOTE | 2024-04-28 16:32 | HMH.EDGENADL ---
Discharge Plan Disposition Patient Disposition: Home, Self-Care Condition: Good Prescriptions Prescriptions: New cephalexin 500 mg capsule 500 mg PO Q8H 7 Days Qty: 21 0RF ondansetron HCl 4 mg tablet 4 mg PO Q8H PRN (Reason: nausea and vomiting) 4 Days Qty: 12 0RF No Action gabapentin 300 mg capsule 300 mg PO TID Patient Comments: TAKE ONE CAPSULE BY MOUTH THREE TIMES DAILY MAY CAUSE DROWSINESS escitalopram oxalate 20 mg tablet 20 mg PO DAILY Patient Comments: TAKE ONE TABLET BY MOUTH EVERY DAY AT BEDTIME [id number] [Bromfed DM] 2-30-10 mg/5 mL Syrup 5 ml PO Q6H PRN (Reason: Cough) Qty: 240 0RF promethazine-DM 6.25-15 mg/5 mL Syrup 5 ml PO Q6H PRN (Reason: Cough) Qty: 240 0RF prednisone 10 mg tablet 10 mg PO DIRECTED 9 Days Qty: 21 0RF Rx Instructions: Take 4 tablets daily for 3 days, then take 2 tablets daily for 3 days, then take 1 tablet daily for 3 days, then stop. amoxicillin-pot clavulanate 875-125 mg Tablet 1 tab PO Q12H Qty: 20 0RF Referrals Follow up/Referrals: Michaela Sousa APRN [Primary Care Provider] - See instructions Activity Restrictions/Add. Instructions Additional Instructions/Restrictions: You were evaluated in the emergency department today. 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 Take Zofran as needed for nausea and vomiting. 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 You are currently measuring 5 weeks and 6 days. I encourage pelvic rest until vaginal bleeding/pelvic pain is stopped. Return to the emergency department for new or worsening symptoms. Clinical Impressions Clinical Impression: Vaginal bleeding during , Asymptomatic bacteriuria, Hypokalemia Stand Alone Forms Stand Alone Forms: Work/School Release Instructions Patient Instructions: DI for -- Discomforts and Remedies, DI for Vaginal Bleeding During Print Language Print Language: Sinhala Discharge ED Provider: Trice Rolon General Adult HPI General Chief complaint: OB/Uterine Contractions Stated complaint: 6 weeks preg, cramping Time Seen by Provider: 04/28/24 16:06 History of Present Illness HPI narrative: This patient is a 33-year-old female G4, P1 at estimated 6 weeks gestational age presenting to the emergency department for evaluation with concern for pelvic pain/cramping and light vaginal bleeding. She states it is only on her underwear and when she wipes, but it does not feel the toilet. She has not yet had a confirmatory ultrasound. No fevers, dysuria, or other concerns. She believes that her blood type is O+. Related Data Home Medications ?Medication ?Instructions ?Recorded ?Confirmed escitalopram oxalate 20 mg tablet 20 mg PO DAILY Anxiety 11/29/22 02/07/24 gabapentin 300 mg capsule 300 mg PO TID neuropathy 11/29/22 02/07/24 Previous Rx's ?Medication ?Instructions ?Recorded jzamegwnkjjjznk-yuuhjfqoqmncljw-NK 5 ml PO Q6H PRN Cough #240 mL 02/04/24 2 mg-30 mg-10 mg/5 mL oral syrup (Bromfed DM) amoxicillin 875 mg-potassium 1 tab PO Q12H #20 tabs 02/07/24 clavulanate 125 mg tablet prednisone 10 mg tablet 10 mg PO DIRECTED 9 days #21 02/07/24 tabs promethazine-DM 6.25 mg-15 mg/5 mL 5 ml PO Q6H PRN Cough #240 mL 02/07/24 oral syrup cephalexin 500 mg capsule 500 mg PO Q8H 7 days #21 caps 04/28/24 ondansetron HCl 4 mg tablet 4 mg PO Q8H PRN nausea and 04/28/24 vomiting 4 days #12 tabs Allergies Allergy/AdvReac Type Severity Reaction Status Date / Time celecoxib [From Celebrex] Allergy Severe Anaphylaxis Verified 04/28/24 16:35 latex [LATEX] Allergy Severe Anaphylaxis Verified 04/28/24 16:35 coconut Allergy Unknown Anaphylaxis Verified 04/28/24 16:35 Pertussis Vaccines Allergy Unknown Unknown Verified 04/28/24 16:35 [PERTUSSIS VACCINES] allergy reaction pineapple [PINEAPPLE] Allergy Unknown Unknown Verified 04/28/24 16:35 allergy reaction Sulfa (Sulfonamide Allergy Unknown Unknown Verified 04/28/24 16:35 Antibiotics) allergy [SULFA (SULFONAMIDE reaction ANTIBIOTICS)] dicyclomine [From Bentyl] AdvReac Verified 04/28/24 16:35 ketamine AdvReac Verified 04/28/24 16:35 PFSH PFSH Disclaimer: The information contained in this section may have been updated after the patient was seen, as this information can be updated by other users. 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/hazards: No caffeine: Yes ROS Obtained: Yes All systems reviewed & no additional complaints except as documented Physical Exam General General appearance: alert and in no apparent distress Head Head exam: atraumatic and normocephalic Eye Eye exam: Present normal appearance, PERRL and EOMI ENT ENT exam: Present normal exam, normal oropharynx, mucous membranes moist and normal external ear exam Neck Neck exam: Present normal inspection, full ROM and trachea midline; Absent tenderness Chest Chest inspection: Present normal inspection and symmetric chest wall rise; Absent tenderness Respiratory Respiratory exam: Present normal lung sounds bilaterally; Absent respiratory distress, wheezes, stridor or accessory muscle use Cardiovascular Cardiovascular exam: Present regular rate and normal rhythm Abdominal Exam Abdominal exam: Present soft; Absent distention, tenderness or guarding Extremities Exam Extremities exam: Present normal inspection, full ROM and normal capillary refill; Absent tenderness or edema Back Exam Back exam: Present normal inspection and full ROM; Absent tenderness Neurological Exam Neurological exam: Present alert, oriented X3, CN II-XII intact and normal gait; Absent motor sensory deficit Psychiatric Psychiatric exam: Present normal affect and normal mood Skin Skin exam: Present warm and dry Medical Decision Making Medical Records Medical records reviewed: Yes I reviewed the patient's medical records. Federico Inquiry Pt receiving controlled substance: No Vital Signs: 04/28/24 16:11 04/28/24 18:18 Temperature 98.6 F 98.0 F Temperature Source Oral Pulse Rate 80 Pulse Rate [Left] 84 Respiratory Rate 16 20 Blood Pressure 119/88 Blood Pressure [Right Arm] 122/61 Blood Pressure Mean [Right Arm] 81 Blood Pressure Source [Right Arm] Automatic Cuff Blood Pressure Position [Right Arm] Sitting 02 Sat by Pulse Oximetry 98 Oxygen Delivery Method Room Air Room Air Lab Data Lab results reviewed: Yes I reviewed the patient's lab results. Lab Results 04/28/24 16:09: Urine Color Yellow, Urine Appearance Clear, Urine pH 6.0, Ur Specific [place] >= 1.030, Urine Protein Negative, Urine Glucose (UA) Negative, Urine Ketones Negative, Urine Blood Negative, Urine Nitrate Negative, Urine Bilirubin Negative, Urine Urobilinogen 0.2, Ur Leukocyte Esterase Negative, Urine RBC Occasional, Urine WBC 5-10, Ur Squamous Epith Cells 10-20, Urine Bacteria 1+, Urine Mucus 4+ 04/28/24 17:03: WBC 8.3, RBC 4.28, Hgb 13.1, Hct 39.9, MCV 93.3, MCH 30.7, MCHC 32.9, RDW 14.0, Plt Count 281, MPV 7.6, Neut % (Auto) 68.7, Lymph % (Auto) 22.8, [place] % (Auto) 5.6, Eos % (Auto) 2.1, Baso % (Auto) 0.8, Neut # (Auto) 5.7, Lymph # (Auto) 1.9, [place] # (Auto) 0.5, Eos # (Auto) 0.2, Baso # (Auto) 0.1, Sodium 141, Potassium 3.1 L, Chloride 108 H, Carbon Dioxide 22, Anion Gap 14.1, BUN 8, Creatinine 0.60, Estimated Creat Clear 151, Estimated GFR 117, Est GFR ( Amer) 141, Glucose 86, Calcium 9.4, Total Bilirubin 0.4, AST 30, ALT 17, Alkaline Phosphatase 74, Total Protein 7.8, Albumin 4.8, Globulin 3.0, Albumin/Globulin Ratio 1.6, HCG, Quant 8706 H 04/28/24 17:48: Blood Type O Positive, Antibody Screen Negative 04/28/24 17:03 04/28/24 17:03 Orders (Tests/Meds): ED MEDICATIONS Discontinued Medications Generic Name Dose Route Start Last Admin Trade Name Freq PRN Reason Stop Dose Admin Cephalexin HCl 500 mg 04/28/24 18:03 04/28/24 18:10 Cephalexin 500mg Capsule PO 04/28/24 18:04 500 mg ONCE ONE Administration Potassium Chloride 40 meq 04/28/24 17:55 04/28/24 18:09 Potassium Chloride 20meq Tab PO 04/28/24 17:56 40 meq ONCE ONE Administration ORDERS Category Date Time Status Type and Screen Stat BBK 04/28/24 17:48 Completed Complete Blood Count Auto Diff Stat Lab 04/28/24 17:03 Completed Comprehensive Metabolic Panel Stat Lab 04/28/24 17:03 Completed HCG,Quantitative Stat Lab 04/28/24 17:03 Completed UA [Urinalysis and Microscopic] Stat Lab 04/28/24 16:09 Completed Urine Culture Stat Micro 04/28/24 16:09 Received US OB transvaginal Stat Ultrasound 04/28/24 16:19 Completed Medical Decision Narrative: In summary, this patient is a 33-year-old female presenting to the Emergency Department for evaluation of pelvic pain and cramping as well as vaginal bleeding in the setting of early . Differential diagnoses considered include but are not limited to threatened , missed , inevitable , ectopic , intrauterine , subchorionic hemorrhage. Ruling out the most morbid conditions drove assessment. It should be noted patient's history includes PCOS which may or may not be at goal therapy. This complicates all aspects of care by increasing patient's risk for morbidity. On exam, the patient is sitting upright in bed in no acute distress. Abdominal exam is benign. Workup included CBC, CMP, type and screen, urinalysis, hCG quant, and transvaginal ultrasound. I offered patient Tylenol but she states she already took it. I independently interpreted ultrasound prior to the radiologist read and noted intrauterine . Please see their read for final interpretation. They note viable IUP without acutely concerning abnormalities otherwise. Measuring 5 weeks 6 days. Labs were obtained that demonstrated urine is grossly contaminated with squamous cells, but she does have bacteria. After shared decision-making with the patient, she does want to take antibiotics just in case she has asymptomatic bacteriuria. Urine culture was sent. Blood type is O+, so no indication for RhoGAM.. At this time given that we have confirmed IUP and excluded ectopic , I feel the patient is appropriate for discharge home with instructions for close follow-up with PRINTED CIRCUIT BOARD DESIGNER. She was given instructions for pelvic rest and strict return precautions. She was discharged with prescription for Keflex to treat asymptomatic bacteriuria. Critical Care Critical Care Time Critical Care Time: No
[2024-04-28 16:37] LABS: RBC,Urine Occasional #/hpf (0-3)
[2024-04-28 16:38] LABS: Bacteria,Urine 1+ /lpf; Mucus,Urine 4+ /lpf
--- NOTE | 2024-04-28 16:47 | PC.NURSE ---
pt is back from US
[2024-04-28 17:15] LABS: Basophils # 0.1 K/mm3 (0-0.2); Basophils % 0.8 % (0.1-2.0); Eosinophils # 0.2 K/mm3 (0.0-0.4); Eosinophils % 2.1 % (0.1-12.0); Hematocrit 39.9 % (37.0-47.0); Hemoglobin 13.1 g/dL (12.2-16.2); Lymphocytes # 1.9 K/mm3 (0.7-4.5); Lymphocytes % 22.8 % (10-50); Mean Corpuscular HGB Conc 32.9 g/dL (31.8-35.4); Mean Corpuscular Hemoglobin 30.7 pg (27.0-31.2); Mean Corpuscular Volume 93.3 fl (81-99); Mean Platelet Volume 7.6 fl (7.4-10.4); Monocytes # 0.5 K/mm3 (0.1-1.0); Monocytes % 5.6 % (1.7-9.3); Neutrophils # 5.7 K/mm3 (1.8-7.8); Neutrophils % 68.7 % (37.0-80.0); Platelet Count 281 K/mm3 (142-424); Red Blood Count 4.28 M/mm3 (4.20-5.40); White Blood Count 8.3 K/mm3 (4.8-10.8)
[2024-04-28 17:29] LABS: Albumin Level 4.8 g/dl (3.5-5.0); Chloride 108 mmol/L (98-107); Potassium 3.1 mmoL/L (3.5-5.1); Sodium 141 mmol/L (136-145)
[2024-04-28 17:32] LABS: Alanine Aminotransferase 17 U/L (12-78); Albumin/Globulin Ratio 1.6 (1.1-1.8); Alkaline Phosphatase 74 U/L (38-126); Anion Gap 14.1 mEq/L (5-15); Aspartate Amino Transferase 30 U/L (14-36); Bilirubin,Total 0.4 mg/dl (0.2-1.3); Blood Urea Nitrogen 8 mg/dl (7-17); Carbon Dioxide 22 mmol/L (22.0-30.0); Creatinine Clearance Estimated 151 mL/min (50-200); Estimated Glomerular Filt Rate 117 ml/min (>60); GFR (African American) 141 ML/MIN (>60); Total Protein,Serum 7.8 g/dl (6.3-8.2)
[2024-04-28 17:33] LABS: Calcium 9.4 mg/dl (8.4-10.2); Glucose 86 mg/dl (74-100)
[2024-04-28 17:49] LABS: HCG,Quantitative 8706 mIU/ml (0-5.42)
[2024-04-28] MEDS: POTASSIUM CHLORIDE 20MEQ TAB 40 MEQ PO (18:09)
[2024-04-28] MEDS: cephALEXin 500MG CAPSULE 500 MG PO (18:10)
[2024-04-28 18:18] VITALS: BP 119/88; PULSE 80; RESP 20; TEMP 36.7; O2SAT 100
== END 2024-04-28 18:20 | disposition home or self-care (01) ==
PROVIDERS: Emergency Provider Emergency Medicine; PCP Nurse Practitioner Family
DX: O20.9 Hemorrhage in early pregnancy, unspecified (principal); Z3A.01 Less than 8 weeks gestation of pregnancy; R10.2 Pelvic and perineal pain; R25.2 Cramp and spasm; E87.6 Hypokalemia; R82.71 Bacteriuria
CPT/HCPCS: 76817; 80053; 81001; 84702; 85025; 86850; 87086; 99284

== ENCOUNTER 2024-05-24 18:19 | Emergency (ER) | payer OTHER, SELFPAY ==
[2024-05-24 18:30] VITALS: BP 120/69; PULSE 72; RESP 20; TEMP 36.8; O2SAT 99; BMI 22.9
--- NOTE | 2024-05-24 18:45 | EXP.UTC ---
Discharge Plan Disposition Patient Disposition: Home, Self-Care Condition: Good Prescriptions Prescriptions: New azithromycin [Zithromax] 250 mg tablet 250 mg PO UD DOSE PK Qty: 6 0RF Rx Instructions: Take two (2) tablets today, then one (1) tablet days #2 thru #5 No Action ondansetron 8 mg tablet,disintegrating 8 mg PO DAILY famotidine [Pepcid] 20 mg Tablet 20 mg PO DAILY progesterone micronized 100 mg capsule 100 mg PO HS Patient Comments: TAKE ONE CAPSULE BY MOUTH EVERY DAY AT BEDTIME DIRECTED 28-800 mg-mcg Tablet 1 tab PO DAILY Referrals Follow up/Referrals: Michaela Sousa APRN [Primary Care Provider] - See instructions Activity Restrictions/Add. Instructions Additional Instructions/Restrictions: Drink plenty of fluids. Take tylenol or ibuprofen for pain or fever. Take the medications as directed. Follow up with your regular doctor. GO TO THE ER FOR ANY WORSENING SYMPTOMS Clinical Impressions Clinical Impression: Bronchitis, Sinusitis Instructions Patient Instructions: DI for Sinusitis, Azithromycin Print Language Print Language: Mozambican Discharge ED Provider: Nolan Dasilva [facility] General Stated complaint: cough sore throat fever Mode of Arrival: Ambulatory Source of Information: Patient Limitations: No Limitations Time Seen by Provider: 05/24/24 18:45 Description of Symptoms (Recalled from Triage Doc. by RN): PATIENT C/O SORE THROAT, FEVER, COUGH WITH DARK GREEN SPUTUM, SOA, AND LEG SWELLING X 10 DAYS. PATIENT STATES SHE IS APPROX 9 WEEKS HEENT Symptoms (Recalled from RN notes): Yes Resp Symptoms (Recalled from RN notes): Yes Skin Symptoms (Recalled from RN notes): No MS Symptoms (Recalled from RN notes): No Functional Status (Recalled from RN notes): WNL Related Data Home Medications ?Medication ?Instructions ?Recorded ?Confirmed famotidine 20 mg tablet (Pepcid) 20 mg PO DAILY 05/24/24 05/24/24 ondansetron 8 mg disintegrating 8 mg PO DAILY 05/24/24 05/24/24 tablet vit no.133-ferrous 1 tab PO DAILY 05/24/24 05/24/24 fumarate 28 mg-folic acid 800 mcg tablet () progesterone micronized 100 mg 100 mg PO HS 05/24/24 05/24/24 capsule Previous Rx's ?Medication ?Instructions ?Recorded azithromycin 250 mg tablet 250 mg PO UD DOSE PK #6 tabs 05/24/24 (Zithromax) Allergies Allergy/AdvReac Type Severity Reaction Status Date / Time celecoxib [From Celebrex] Allergy Severe Anaphylaxis Verified 04/28/24 16:35 latex [LATEX] Allergy Severe Anaphylaxis Verified 04/28/24 16:35 coconut Allergy Unknown Anaphylaxis Verified 04/28/24 16:35 Pertussis Vaccines Allergy Unknown Unknown Verified 04/28/24 16:35 [PERTUSSIS VACCINES] allergy reaction pineapple [PINEAPPLE] Allergy Unknown Unknown Verified 04/28/24 16:35 allergy reaction Sulfa (Sulfonamide Allergy Unknown Unknown Verified 04/28/24 16:35 Antibiotics) allergy [SULFA (SULFONAMIDE reaction ANTIBIOTICS)] dicyclomine [From Bentyl] AdvReac Verified 04/28/24 16:35 ketamine AdvReac Verified 04/28/24 16:35 Worker's Comp Is this a Worker's Comp case?: No [facility] Disclaimer: The information contained in this section may have been updated after the patient was seen, as this information can be updated by other users. Medical History Liver disease Depression Anxiety History of anemia History of gastroesophageal reflux (GERD) Kidney stone Migraine Surgical History History of tonsillectomy History of cholecystectomy History of section Family History Grandfather Cancer Mother Cancer Sister Cancer Grandmother Cancer Social History Smoking Status: Never smoker [facility], [facility]
[2024-05-24 18:48] LABS: UTC Strep Screen (Rapid) Negative (Negative)
[2024-05-24 19:06] VITALS: BP 120/69; PULSE 72; RESP 20; TEMP 36.8; O2SAT 99
== END 2024-05-24 19:08 | disposition home or self-care (01) ==
PROVIDERS: Emergency Provider Nurse Practitioner Family; PCP Nurse Practitioner Family
DX: J20.9 Acute bronchitis, unspecified (principal); J01.90 Acute sinusitis, unspecified; R07.0 Pain in throat; R50.9 Fever, unspecified
CPT/HCPCS: 87880; 99212; 99214; G0463

== ENCOUNTER 2024-09-07 15:17 | Outpatient (CLI) | payer OTHER, SELFPAY ==
[2024-09-07 16:12] LABS: Chloride 107 mmol/L (98-107)
[2024-09-07 16:13] LABS: Albumin Level 3.3 g/dl (3.5-5.0); Potassium 3.2 mmoL/L (3.5-5.1); Sodium 133 mmol/L (136-145)
[2024-09-07 16:15] LABS: Blood Urea Nitrogen 3 mg/dl (7-17); Estimated Glomerular Filt Rate 116 ml/min (>60); GFR (African American) 140 ML/MIN (>60)
[2024-09-07 16:16] LABS: Alanine Aminotransferase 15 U/L (12-78); Albumin/Globulin Ratio 1.4 (1.1-1.8); Alkaline Phosphatase 81 U/L (38-126); Anion Gap 6.2 mEq/L (5-15); Aspartate Amino Transferase 23 U/L (14-36); Bilirubin,Total 0.2 mg/dl (0.2-1.3); Calcium 8.6 mg/dl (8.4-10.2); Carbon Dioxide 23 mmol/L (22.0-30.0); Globulin 2.3 g/dL (1.3-3.2); Glucose 81 mg/dl (74-100); Total Protein,Serum 5.6 g/dl (6.3-8.2)
== END 2024-09-07 23:59 | disposition home or self-care (01) ==
LOC: LAB 15:18
PROVIDERS: PCP Nurse Practitioner Family; Visit Provider Student in an Organized Health Care Education/Training Program
DX: Z34.82 Encounter for supervision of other normal pregnancy, second trimester (principal)
CPT/HCPCS: 36415; 80053

== ENCOUNTER 2024-11-01 12:29 | Outpatient (CLI) | payer OTHER, SELFPAY ==
[2024-11-01 13:05] LABS: Basophils % 0.5 % (0.1-2.0); Eosinophils # 0.1 K/mm3 (0.0-0.4); Eosinophils % 0.7 % (0.1-12.0); Hematocrit 35.6 % (37.0-47.0); Hemoglobin 11.8 g/dL (12.2-16.2); Lymphocytes # 0.8 K/mm3 (0.7-4.5); Lymphocytes % 9.2 % (10-50); Mean Corpuscular HGB Conc 33.1 g/dL (31.8-35.4); Mean Corpuscular Hemoglobin 29.7 pg (27.0-31.2); Mean Corpuscular Volume 89.7 fl (81-99); Mean Platelet Volume 9.6 fl (7.4-10.4); Monocytes # 0.5 K/mm3 (0.1-1.0); Monocytes % 5.5 % (1.7-9.3); Neutrophils # 7.3 K/mm3 (1.8-7.8); Platelet Count 204 K/mm3 (142-424); Red Blood Count 3.97 M/mm3 (4.20-5.40); Red Cell Distribution Width 13.2 % (11.5-17.5); White Blood Count 8.8 K/mm3 (4.8-10.8)
[2024-11-01 13:23] LABS: Albumin Level 3.4 g/dl (3.5-5.0); Chloride 108 mmol/L (98-107)
[2024-11-01 13:24] LABS: Potassium 3.3 mmoL/L (3.5-5.1); Sodium 136 mmol/L (136-145)
[2024-11-01 13:26] LABS: Alanine Aminotransferase 18 U/L (12-78); Anion Gap 12.3 mEq/L (5-15); Aspartate Amino Transferase 25 U/L (14-36); Blood Urea Nitrogen 4 mg/dl (7-17); Carbon Dioxide 19 mmol/L (22.0-30.0); Estimated Glomerular Filt Rate 185 ml/min (>60); GFR (African American) 224 ML/MIN (>60)
[2024-11-01 13:27] LABS: Albumin/Globulin Ratio 1.5 (1.1-1.8); Alkaline Phosphatase 103 U/L (38-126); Bilirubin,Total 0.4 mg/dl (0.2-1.3); Calcium 8.4 mg/dl (8.4-10.2); Globulin 2.3 g/dL (1.3-3.2); Glucose 118 mg/dl (74-100); Total Protein,Serum 5.7 g/dl (6.3-8.2)
[2024-11-01 13:40] LABS: Lactate Dehydrogenase 154 U/L (313-618)
[2024-11-03 20:08] LABS: QuantiFERON-TB Gold Plus Negative (Negative)
== END 2024-11-01 23:59 | disposition home or self-care (01) ==
LOC: LAB 12:33
PROVIDERS: PCP Family Medicine; Visit Provider Family Medicine
DX: Z11.1 Encounter for screening for respiratory tuberculosis (principal); Z3A.32 32 weeks gestation of pregnancy
CPT/HCPCS: 36415; 80053; 83615; 84550; 85025; 86480

== ENCOUNTER 2024-12-26 15:54 | Emergency (ER) | payer OTHER, SELFPAY ==
[2024-12-26 16:04] VITALS: BP 128/91; PULSE 86
[2024-12-26 16:09] VITALS: BP 128/91; PULSE 85; RESP 15; TEMP 36.9; O2SAT 98; BMI 22.0
--- NOTE | 2024-12-26 16:20 | HMH.EDGENADL ---
Discharge Plan Disposition Patient Disposition: Home, Self-Care Condition: Good Prescriptions Prescriptions: No Action amoxicillin 875 mg tablet 875 mg PO BID Qty: 20 0RF ondansetron 8 mg tablet,disintegrating 8 mg PO DAILY famotidine [Pepcid] 20 mg Tablet 20 mg PO DAILY 28-800 mg-mcg Tablet 1 tab PO DAILY Referrals Follow up/Referrals: Michaela Sousa APRN [Primary Care Provider] - See instructions Activity Restrictions/Add. Instructions Additional Instructions/Restrictions: Please follow-up for your [employer]ACT[employer] appointment. As we discussed, we have elected to not administer the Cytotec at this time. Please return with any new or worsening symptoms. Clinical Impressions Clinical Impression: Vaginal bleeding Print Language Print Language: Setswana Discharge ED Provider: Brendon Abel Adult HPI <Maia Llamas APRN - Last Filed: 12/26/24 18:43> General Chief complaint: Urogenital-Female Stated complaint: post op C section , lots of bleeding Time Seen by Provider: 12/26/24 16:13 Mode of Arrival: Ambulatory Source of Information: Patient Description of Symptoms (Recalled from ER Triage Doc. by RN): patient states she is 16 days post c section and yesterday she started having heavy bleeding that is bright red with clots that are about dime size-quarter size. she reports today she has saturated 5-6 large pads since 6am. she also reports a Deep pain in her LLQ and she states she can feel a lump in her LLQ. she reports history of hemorrhage and GI bleeds. 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 Related Data Home Medications ?Medication ?Instructions ?Recorded ?Confirmed famotidine 20 mg tablet (Pepcid) 20 mg PO DAILY 05/24/24 12/03/24 ondansetron 8 mg disintegrating 8 mg PO DAILY 05/24/24 12/03/24 tablet vit no.133-ferrous 1 tab PO DAILY 05/24/24 12/03/24 fumarate 28 mg-folic acid 800 mcg tablet () Previous Rx's ?Medication ?Instructions ?Recorded amoxicillin 875 mg tablet 875 mg PO BID #20 tabs 12/03/24 Allergies Allergy/AdvReac Type Severity Reaction Status Date / Time celecoxib (From Celebrex) Allergy Severe Anaphylaxis Verified 12/03/24 09:45 latex (LATEX) Allergy Severe Anaphylaxis Verified 12/03/24 09:45 coconut Allergy Unknown Anaphylaxis Verified 12/03/24 09:45 Pertussis Vaccines Allergy Unknown Unknown Verified 12/03/24 09:45 (PERTUSSIS VACCINES) allergy reaction pineapple (PINEAPPLE) Allergy Unknown Unknown Verified 12/03/24 09:45 allergy reaction Sulfa (Sulfonamide Allergy Unknown Unknown Verified 12/03/24 09:45 Antibiotics) (SULFA allergy (SULFONAMIDE ANTIBIOTICS)) reaction dicyclomine (From Bentyl) AdvReac Verified 12/03/24 09:45 ketamine AdvReac Verified 12/03/24 09:45 PFS <Maia Llamas APRN - Last Filed: 12/26/24 18:43> [facility] Disclaimer: The information contained in this section may have been updated after the patient was seen, as this information can be updated by other users. Medical History Liver disease Depression Anxiety History of anemia History of gastroesophageal reflux (GERD) Kidney stone Migraine Surgical History History of tonsillectomy History of cholecystectomy History of section Family History Grandfather Cancer Colon Cancer Mother Cancer Thyroid Cancer Sister Cancer Cervical Cancer Grandmother Cancer Maternal Grandmother-Cervical, Breast and Lung Cancer Social History Smoking Status: Never smoker second hand exposure: No alcohol intake: never current occupational status: employed Travel in the last 8 weeks: None household members: other housing: house 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 current occupational exposures/hazards: No caffeine: Yes Have you lived/traveled outside [place] in past 30 days?: No Contact w/someone who lives/traveled outside US past 30 days?: No Exposure to someone with infectious disease in past 14 days?: No Do you have a fever (greater than 100.4 F or 38 C)?: No Have you tested positive for COVID-19: No Exposed to someone with COVID-19 in past 14 days?: No Do you have a sore throat?: No Do you have a cough?: No Do you have any weakness?: No Do you have any diarrhea?: No Are you experiencing any unusual bleeding?: No Do you have any muscle aches/pain?: No Do you have any abdominal pain?: No Are you experiencing loss of taste or smell?: No Other Medical History Have you received the Flu Vaccine for this season: Yes Have you received the Pneumonia Vaccine: No <Maia Llamas APRN - Last Filed: 12/26/24 18:43> ROS Obtained: Yes Systems reviewed as appropriate & no additional complaints except as documented Physical Exam <Maia Llamas APRN - Last Filed: 12/26/24 18:43> General General appearance: alert and in no apparent distress Head Head exam: atraumatic and normocephalic Eye Eye exam: Present normal appearance and PERRL ENT ENT exam: Present normal exam Neck Neck exam: Present normal inspection Chest Chest inspection: Present normal inspection and symmetric chest wall rise; Absent tenderness Respiratory Respiratory exam: Present normal lung sounds bilaterally Cardiovascular Cardiovascular exam: Present regular rate Abdominal Exam Abdominal exam: Present soft, tenderness (llq ) and normal bowel sounds Extremities Exam Extremities exam: Present normal inspection and full ROM Back Exam Back exam: Present normal inspection and full ROM Neurological Exam Neurological exam: Present alert and oriented X3 Psychiatric Psychiatric exam: Present normal affect and normal mood Skin Skin exam: Present warm, dry and other (healing c section incision ) Medical Decision Making <Maia Llamas APRN - Last Filed: 12/26/24 18:43> Medical Records Screening: Per USPSTF and CDC recommendations, given the prevalence of disease in our region, it is our hospital?s policy to screen for HIV and viral Hepatitis for all patients aged 18 and over and those with ongoing risk factors. Federico Inquiry Pt receiving controlled substance: No Federico was queried for this patient: No Vital Signs: 12/26/24 16:04 12/26/24 16:09 12/26/24 17:03 Temperature 98.4 F Temperature Source Oral Pulse Rate 86 64 Pulse Rate [Right] 85 Respiratory Rate 15 Blood Pressure 128/91 H 116/78 Blood Pressure [Right Arm] 128/91 H Blood Pressure Mean 96 90 Blood Pressure Mean [Right Arm] 103 Blood Pressure Source [Right Arm] Automatic Cuff Blood Pressure Position [Right Arm] Sitting 02 Sat by Pulse Oximetry 98 Oxygen Delivery Method Room Air 12/26/24 18:09 12/26/24 20:14 Temperature 98.4 F Temperature Source Pulse Rate 100 H 65 Pulse Rate [Right] Respiratory Rate 18 Blood Pressure 120/90 120/90 Blood Pressure [Right Arm] Blood Pressure Mean Blood Pressure Mean [Right Arm] Blood Pressure Source [Right Arm] Blood Pressure Position [Right Arm] 02 Sat by Pulse Oximetry 96 Oxygen Delivery Method Room Air Lab Data Lab Results 12/26/24 16:15: Urine Color Yellow, Urine Appearance Clear, Urine pH 6.5, Ur Specific [place] 1.020, Urine Protein Negative, Urine Glucose (UA) Negative, Urine Ketones Negative, Urine Blood Negative, Urine Nitrate Negative, Urine Bilirubin Negative, Urine Urobilinogen 0.2, Ur Leukocyte Esterase Negative, Urine RBC None, Urine WBC 5-10, Ur Squamous Epith Cells 3-5, Urine Bacteria Trace 12/26/24 16:37: WBC 6.4, RBC 3.92 L, Hgb 11.3 L, Hct 34.6 L, MCV 88.3, MCH 28.8, MCHC 32.7, RDW 12.6, Plt Count 352, MPV 8.8, Neut % (Auto) 58.1, Lymph % (Auto) 25.9, Ralls % (Auto) 9.2, Eos % (Auto) 4.9, Baso % (Auto) 1.1, Neut # (Auto) 3.7, Lymph # (Auto) 1.7, Ralls # (Auto) 0.6, Eos # (Auto) 0.3, Baso # (Auto) 0.1, Sodium 141, Potassium 3.8, Chloride 107, Carbon Dioxide 24, Anion Gap 13.8, BUN 11, Creatinine 0.50 L, Estimated Creat Clear 168, Estimated GFR 143, Est GFR ( Amer) 173, Glucose 100, Calcium 8.7, Total Bilirubin 0.3, AST 26, ALT 18, Alkaline Phosphatase 129 H, Total Protein 6.8, Albumin 3.8, Globulin 3.0, Albumin/Globulin Ratio 1.3, HCG, Quant 5, Blood Type O Positive, Antibody Screen Negative 12/26/24 16:37 12/26/24 16:37 Orders (Tests/Meds): ED MEDICATIONS Discontinued Medications Generic Name Dose Route Start Last Admin Trade Name Ramiro PRN Reason Stop Dose Admin Iopamidol 75 ml 12/26/24 18:00 12/26/24 18:06 Iopamidol-370 (76%);100ml Bottle IV 12/26/24 18:01 75 ml ONCE ONE Administration Morphine Sulfate 4 mg 12/26/24 17:29 12/26/24 17:46 Morphine 4mg/Ml Syringe IV 12/26/24 17:30 4 mg ONCE ONE Administration Morphine Sulfate 4 mg 12/26/24 19:33 12/26/24 19:42 Morphine 4mg/Ml Syringe IV 12/26/24 19:34 4 mg ONCE ONE Administration Ondansetron HCl 4 mg 12/26/24 17:29 12/26/24 17:46 Ondansetron 4mg/2ml Vial IV 12/26/24 17:30 4 mg ONCE ONE Administration Sodium Chloride 10 ml 12/26/24 16:13 Sodium Chloride 0.9% 10ml Flush Syringe IV 01/25/25 16:12 NEEDED PRN Maintain IV Site Sodium Chloride 10 ml 12/26/24 18:00 12/26/24 18:06 Sodium Chloride 0.9% 10ml Syr (Rad Only) IV 01/25/25 17:59 10 ml NEEDED PRN Administration Maintain IV Site ORDERS Category Date Time Status Type and Screen Stat BBK 12/26/24 16:[address] abdomen pelvis w con Stat Cat Scan 12/26/24 16:26 Completed Beta HCG, Quant [HCG,Quantitative] Stat Lab 12/26/24 16:37 Completed CBC w/Auto Diff [Complete Blood Count Auto Diff] Stat Lab 12/26/24 16:37 Completed CMP [Comprehensive Metabolic Panel] Stat Lab 12/26/24 16:37 Completed UA [Urinalysis and Microscopic] Stat Lab 12/26/24 16:15 Completed US Pelvic Stat Ultrasound 12/26/24 18:48 Completed Medical Decision Narrative: In summary, patient is a pleasant 34-year-old female PMHx postop hemorrhage after , multiple GI bleeds requiring blood transfusions, 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 Patient states she began bleeding 8 days after her , describes the blood as dark, intermittent however today has increased to 2 pads per hour. Patient states that she contacted her OB at [facility] who advised her to come to the closest ED. G4, P2. Patient states she is having left lower quadrant abdominal pain and feels like there is a bulge in her abdomen. Patient adds that she has felt dizzy today. Denies fever, chills, body aches, chest pain, shortness of breath, back pain, dysuria. Upon initial evaluation patient is alert, oriented and cooperative. She is hemodynamically stable. Her physical exam is remarkable for a well-healing incision, left lower quadrant abdominal tenderness, mild. Differential diagnosis include hemorrhage, infection, UTI, retained products, among others. Performed pelvic exam with eeo officer in room, bright red blood noted around exterior vaginal vault, no active hemorrhaging noted. CBC remarkable for WBC 6.4, hemoglobin 11.3, hematocrit 34.6. CMP unremarkable for any actionable abnormalities. hCG quant 5. Urinalysis unremarkable for any infectious process. Obtain CT scan of the abdomen and pelvis. Pending final result, care transferred to Dr. Abel. Updated patient on plan of care. <Brendon Abel MD - Last Filed: 12/27/24 16:53> Vital Signs: 12/26/24 16:04 12/26/24 16:09 12/26/24 17:03 Temperature 98.4 F Temperature Source Oral Pulse Rate 86 64 Pulse Rate [Right] 85 Respiratory Rate 15 Blood Pressure 128/91 H 116/78 Blood Pressure [Right Arm] 128/91 H Blood Pressure Mean 96 90 Blood Pressure Mean [Right Arm] 103 Blood Pressure Source [Right Arm] Automatic Cuff Blood Pressure Position [Right Arm] Sitting 02 Sat by Pulse Oximetry 98 Oxygen Delivery Method Room Air 12/26/24 18:09 12/26/24 20:14 Temperature 98.4 F Temperature Source Pulse Rate 100 H 65 Pulse Rate [Right] Respiratory Rate 18 Blood Pressure 120/90 120/90 Blood Pressure [Right Arm] Blood Pressure Mean Blood Pressure Mean [Right Arm] Blood Pressure Source [Right Arm] Blood Pressure Position [Right Arm] 02 Sat by Pulse Oximetry 96 Oxygen Delivery Method Room Air Lab Data Lab Results 12/26/24 16:15: Urine Color Yellow, Urine Appearance Clear, Urine pH 6.5, Ur Specific [place] 1.020, Urine Protein Negative, Urine Glucose (UA) Negative, Urine Ketones Negative, Urine Blood Negative, Urine Nitrate Negative, Urine Bilirubin Negative, Urine Urobilinogen 0.2, Ur Leukocyte Esterase Negative, Urine RBC None, Urine WBC 5-10, Ur Squamous Epith Cells 3-5, Urine Bacteria Trace 12/26/24 16:37: WBC 6.4, RBC 3.92 L, Hgb 11.3 L, Hct 34.6 L, MCV 88.3, MCH 28.8, MCHC 32.7, RDW 12.6, Plt Count 352, MPV 8.8, Neut % (Auto) 58.1, Lymph % (Auto) 25.9, Ralls % (Auto) 9.2, Eos % (Auto) 4.9, Baso % (Auto) 1.1, Neut # (Auto) 3.7, Lymph # (Auto) 1.7, Ralls # (Auto) 0.6, Eos # (Auto) 0.3, Baso # (Auto) 0.1, Sodium 141, Potassium 3.8, Chloride 107, Carbon Dioxide 24, Anion Gap 13.8, BUN 11, Creatinine 0.50 L, Estimated Creat Clear 168, Estimated GFR 143, Est GFR ( Amer) 173, Glucose 100, Calcium 8.7, Total Bilirubin 0.3, AST 26, ALT 18, Alkaline Phosphatase 129 H, Total Protein 6.8, Albumin 3.8, Globulin 3.0, Albumin/Globulin Ratio 1.3, HCG, Quant 5, Blood Type O Positive, Antibody Screen Negative Orders (Tests/Meds): ED MEDICATIONS Discontinued Medications Generic Name Dose Route Start Last Admin Trade Name Freq PRN Reason Stop Dose Admin Iopamidol 75 ml 12/26/24 18:00 12/26/24 18:06 Iopamidol-370 (76%);100ml Bottle IV 12/26/24 18:01 75 ml ONCE ONE Administration Morphine Sulfate 4 mg 12/26/24 17:29 12/26/24 17:46 Morphine 4mg/Ml Syringe IV 12/26/24 17:30 4 mg ONCE ONE Administration Morphine Sulfate 4 mg 12/26/24 19:33 12/26/24 19:42 Morphine 4mg/Ml Syringe IV 12/26/24 19:34 4 mg ONCE ONE Administration Ondansetron HCl 4 mg 12/26/24 17:29 12/26/24 17:46 Ondansetron 4mg/2ml Vial IV 12/26/24 17:30 4 mg ONCE ONE Administration Sodium Chloride 10 ml 12/26/24 16:13 Sodium Chloride 0.9% 10ml Flush Syringe IV 01/25/25 16:12 NEEDED PRN Maintain IV Site Sodium Chloride 10 ml 12/26/24 18:00 12/26/24 18:06 Sodium Chloride 0.9% 10ml Syr (Rad Only) IV 01/25/25 17:59 10 ml NEEDED PRN Administration Maintain IV Site ORDERS Category Date Time Status Type and Screen Stat BBK 12/26/24 16:[address] abdomen pelvis w con Stat Cat Scan 12/26/24 16:26 Completed Beta HCG, Quant [HCG,Quantitative] Stat Lab 12/26/24 16:37 Completed CBC w/Auto Diff [Complete Blood Count Auto Diff] Stat Lab 12/26/24 16:37 Completed CMP [Comprehensive Metabolic Panel] Stat Lab 12/26/24 16:37 Completed UA [Urinalysis and Microscopic] Stat Lab 12/26/24 16:15 Completed US Pelvic Stat Ultrasound 12/26/24 18:48 Completed Medical Decision Narrative: In summary, patient is a pleasant 34-year-old female PMHx postop hemorrhage after , multiple GI bleeds requiring blood transfusions, 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 Patient states she began bleeding 8 days after her , describes the blood as dark, intermittent however today has increased to 2 pads per hour. Patient states that she contacted her OB at [facility] who advised her to come to the closest ED. G4, P2. Patient states she is having left lower quadrant abdominal pain and feels like there is a bulge in her abdomen. Patient adds that she has felt dizzy today. Denies fever, chills, body aches, chest pain, shortness of breath, back pain, dysuria. Upon initial evaluation patient is alert, oriented and cooperative. She is hemodynamically stable. Her physical exam is remarkable for a well-healing incision, left lower quadrant abdominal tenderness, mild. Differential diagnosis include hemorrhage, infection, UTI, retained products, among others. Performed pelvic exam with eeo officer in room, bright red blood noted around exterior vaginal vault, no active hemorrhaging noted. CBC remarkable for WBC 6.4, hemoglobin 11.3, hematocrit 34.6. CMP unremarkable for any actionable abnormalities. hCG quant 5. Urinalysis unremarkable for any infectious process. Obtain CT scan of the abdomen and pelvis. Pending final result, care transferred to Dr. Abel. Updated patient on plan of care. I was consulted by the AMANDO, and we discussed the complexity of the problems being addressed.I approved the treatment and management plan for this patient?s care in the Emergency Department, thus performing a substantive portion of the medical decision making. Ultrasound and CT imaging revealed endometrium approximately 1.6 cm with no obvious evidence of retained products of conception. I discussed the case with valuation consultant at [facility] who recommended outpatient management. Prostaglandin therapy was discussed during our phone call, however after shared decision making patient declines this treatment. She has follow-up tomorrow morning. Return precautions given. She is stable for discharge at this time. Signed, MD BALDEMAR ColemanA Critical Care <Maia Llamas APRN - Last Filed: 12/26/24 18:43> Critical Care Time Critical Care Time: No
--- NOTE | 2024-12-26 16:26 | CT_ITS ---
PROCEDURE INFORMATION: Exam: CT Abdomen And Pelvis With Contrast Exam date and time: 12/26/2024 5:59 PM Age: 34 years old Clinical indication: Other: Post op c section bleeding / HX post c sec bleed; Prior surgery; Surgery date: <1 month; Surgery type: 16 days post TECHNIQUE: Imaging protocol: Computed tomography of the abdomen and pelvis with contrast. Radiation optimization: All CT scans at this facility use at least one of these dose optimization techniques: automated exposure control; mA and/or kV adjustment per patient size (includes targeted exams where dose is matched to clinical indication); or iterative reconstruction. Contrast material: ISOVUE; Contrast volume: 75 ml; Contrast route: IV; COMPARISON: CT ABDOMEN PELVIS W CON 21/01/2024 18:27 FINDINGS: Liver: Normal. No mass. Gallbladder and biliary ducts: Gallbladder is absent. Pancreas: Normal. No ductal dilation. Spleen: Heterogeneous enhancement of the spleen could be due to bolus timing. Adrenal glands: Normal. No mass. Kidneys and ureters: Nonobstructing bilateral nephrolithiasis. Stomach and bowel: Unremarkable. No obstruction. No mucosal thickening. Appendix: Unremarkable appendix. Intraperitoneal space: Trace free fluid in the pelvis. Vasculature: The arteries demonstrate minimal atherosclerotic disease. Lymph nodes: Unremarkable. No enlarged lymph nodes. Urinary bladder: Unremarkable as visualized. Reproductive: The endometrial canal measures 11 mm in diameter, which may be partially due to blood. There is no evidence of active contrast extravasation to correlate with active hemorrhage. Lower anterior uterine defect consistent with recent Caesarean section. Bones/joints: Unremarkable. No acute fracture. Soft tissues: Tiny fat containing umbilical hernia. IMPRESSION: 1. There appears to be fluid in the endometrial canal, possibly blood. There is no evidence of active contrast extravasation to correlate with active hemorrhage. Consider ultrasound to exclude retained products of conception as clinically warranted. 2. Nonobstructing bilateral nephrolithiasis.
--- NOTE | 2024-12-26 16:27 | PC.NURSE ---
RADIOLOGY NOTIFIED OF TVUS ORDER
--- NOTE | 2024-12-26 16:29 | PC.NURSE ---
CANCELLED TVUS, CT SCAN INSTEAD
[2024-12-26 16:46] LABS: Microscopic, Urine URINE MICROSCOPIC (MICROSCOPIC)
[2024-12-26 16:47] LABS: Basophils # 0.1 K/mm3 (0-0.2); Basophils % 1.1 % (0.1-2.0); Eosinophils # 0.3 K/mm3 (0.0-0.4); Eosinophils % 4.9 % (0.1-12.0); Hematocrit 34.6 % (37.0-47.0); Hemoglobin 11.3 g/dL (12.2-16.2); Lymphocytes # 1.7 K/mm3 (0.7-4.5); Lymphocytes % 25.9 % (10-50); Mean Corpuscular HGB Conc 32.7 g/dL (31.8-35.4); Mean Corpuscular Hemoglobin 28.8 pg (27.0-31.2); Mean Corpuscular Volume 88.3 fl (81-99); Mean Platelet Volume 8.8 fl (7.4-10.4); Monocytes # 0.6 K/mm3 (0.1-1.0); Monocytes % 9.2 % (1.7-9.3); Neutrophils # 3.7 K/mm3 (1.8-7.8); Neutrophils % 58.1 % (37.0-80.0); Platelet Count 352 K/mm3 (142-424); Red Blood Count 3.92 M/mm3 (4.20-5.40); Red Cell Distribution Width 12.6 % (11.5-17.5); White Blood Count 6.4 K/mm3 (4.8-10.8)
[2024-12-26 16:54] LABS: Appearance,Urine CLEAR (Clear); Bilirubin,Urine Negative (Negative); Blood, Urine Negative (Negative); Color,Urine YELLOW (Yellow); Glucose,Urine (UA) Negative (Negative); Ketones,Urine Negative (Negative); Leukocyte Esterase,Urine Negative (Negative); Nitrate,Urine Negative (Negative); PH,Urine 6.5 (5.0-8.5); Protein,Urine Negative (Negative); Urobilinogen,Urine 0.2 EU/dl (0.2)
[2024-12-26 17:03] VITALS: BP 116/78; PULSE 64
[2024-12-26 17:08] LABS: Albumin Level 3.8 g/dl (3.5-5.0); Chloride 107 mmol/L (98-107); Potassium 3.8 mmoL/L (3.5-5.1); Sodium 141 mmol/L (136-145)
[2024-12-26 17:11] LABS: Alanine Aminotransferase 18 U/L (12-78); Albumin/Globulin Ratio 1.3 (1.1-1.8); Alkaline Phosphatase 129 U/L (38-126); Anion Gap 13.8 mEq/L (5-15); Aspartate Amino Transferase 26 U/L (14-36); Bilirubin,Total 0.3 mg/dl (0.2-1.3); Blood Urea Nitrogen 11 mg/dl (7-17); Carbon Dioxide 24 mmol/L (22.0-30.0); Creatinine Clearance Estimated 168 mL/min (50-200); Estimated Glomerular Filt Rate 143 ml/min (>60); GFR (African American) 173 ML/MIN (>60); Total Protein,Serum 6.8 g/dl (6.3-8.2)
[2024-12-26 17:12] LABS: Calcium 8.7 mg/dl (8.4-10.2); Glucose 100 mg/dl (74-100)
[2024-12-26 17:34] LABS: HCG,Quantitative 5 mIU/ml (0-5.42)
[2024-12-26 17:39] LABS: Bacteria,Urine Trace /lpf
[2024-12-26] MEDS: MORPHINE 4MG/ML SYRINGE 4 MG IV ×2 (17:46→19:42)
[2024-12-26] MEDS: ONDANSETRON 4MG/2ML VIAL 4 MG IV (17:46)
[2024-12-26] MEDS: IOPAMIDOL-370 (76%);100ML BOTTLE 75 ML IV (18:06)
[2024-12-26] MEDS: SODIUM CHLORIDE 0.9% 10ML SYR (RAD ONLY) 10 ML IV (18:06)
[2024-12-26 18:09] VITALS: BP 120/90; PULSE 100; O2SAT 96
--- NOTE | 2024-12-26 18:48 | US_ITS ---
PROCEDURE INFORMATION: Exam: US Pelvis, Complete, Non-Obstetric Exam date and time: 12/26/2024 6:42 PM Age: 34 years old Clinical indication: Other: Heavy bleeding; Prior surgery; Surgery date: <1 month; Surgery type: 16 days post -- csection; Additional info: 16 days pp, heavy bleeding, possible retained prod TECHNIQUE: Imaging protocol: Transabdominal pelvic nonobstetric ultrasound. Complete exam. Real time ultrasound with image documentation. COMPARISON: CT ABDOMEN PELVIS W CON 09/30/2024 17:59 FINDINGS: Uterus: Moderate amount of fluid in endometrial canal. This may reflect blood. Endometrial canal is 1.6 cm in diameter, which is mildly abnormal. Right ovary/adnexa: Unremarkable right ovarian arterial waveforms. Left ovary/adnexa: Unremarkable left ovarian arterial waveforms. Intraperitoneal space: No intraperitoneal fluid. Urinary bladder: Normal. IMPRESSION: Moderate amount of fluid in endometrial canal. This may reflect blood. A small amount of retained products of conception is possible.
[2024-12-26 20:14] VITALS: BP 120/90; PULSE 65; RESP 18; TEMP 36.9; O2SAT 96
== END 2024-12-26 20:22 | disposition home or self-care (01) ==
PROVIDERS: Nurse Practitioner; Emergency Provider Emergency Medicine; PCP Nurse Practitioner Family
DX: N93.9 Abnormal uterine and vaginal bleeding, unspecified (principal)
CPT/HCPCS: 36415; 74177; 76856; 80053; 81001; 84702; 85025; 86850; 96374; 96376; 99285; J2270; J2405; Q9967

== ENCOUNTER 2024-12-29 20:11 | Emergency (ER) | payer OTHER, SELFPAY ==
[2024-12-29 20:18] VITALS: BP 128/89; PULSE 83; RESP 18; TEMP 36.8; O2SAT 99; BMI 20.2
--- NOTE | 2024-12-29 20:27 | US_ITS ---
PROCEDURE INFORMATION: Exam: US Pelvis, Transvaginal, Non-Obstetric Exam date and time: 12/29/2024 8:53 PM Age: 34 years old Clinical indication: Pelvic pain; Prior surgery; Surgery date: <1 month; Surgery type: ; Additional info: Recent c/s, llq pain TECHNIQUE: Imaging protocol: Real-time transvaginal pelvic (non-obstetric) ultrasound with image documentation. Transvaginal imaging was used for better evaluation of the endometrium, adnexa, and/or cervix. COMPARISON: US PELVIC 12/26/2024 6:42 PM FINDINGS: Uterus: Uterus is normal. Small endometrial cavity fluid collection, likely physiologic. Endometrial thickness within normal limits measuring 0.8 cm. Right ovary/adnexa: Measures 2.8 x 2.2 x 1.8 cm. No mass. Normal ovarian blood flow on color Doppler. 1.7 cm physiologic cyst. Left ovary/adnexa: Measures 2.4 x 2.1 x 1.7 cm. No mass. Normal ovarian blood flow on color Doppler. Urinary bladder: Urinary bladder is limited. Intraperitoneal space: No free fluid. IMPRESSION: No acute findings.
--- NOTE | 2024-12-29 20:27 | PC.NURSE ---
called radiology at this time to call in US tech to r/o torsion per Dr Galloway.
--- NOTE | 2024-12-29 20:30 | ED_ITS ---
Discharge Plan Disposition Patient Disposition: Home, Self-Care Chief Complaint: PAIN Prescriptions Prescriptions: No Action amoxicillin 875 mg tablet 875 mg PO BID Qty: 20 0RF ondansetron 8 mg tablet,disintegrating 8 mg PO DAILY famotidine [Pepcid] 20 mg Tablet 20 mg PO DAILY 28-800 mg-mcg Tablet 1 tab PO DAILY Referrals Follow up/Referrals: Michaela Sousa APRN [Primary Care Provider] - See instructions Activity Restrictions/Add. Instructions Additional Instructions/Restrictions: At this time it was felt you are safe to be discharged home. If new or worsening symptoms please do not hesitate to return the emergency department. Please follow-up with your TRAVELING STOREKEEPER on Wednesday as discussed. Clinical Impressions Clinical Impression: Abdominal pain, LLQ, complication Print Language Print Language: Guyanese Discharge ED Provider: Milton Galloway General Adult HPI General Chief complaint: PAIN Stated complaint: vaginal bleeding, left abd pain, vomiting Time Seen by Provider: 12/29/24 20:18 History of Present Illness HPI narrative: Patient is a 34-year-old female G4, P2 recent section approximately [address] 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 History is obtained by patient at bedside and per chart review. Patient was seen here on where workup was ultimately nonactionable and after consultation with [facility] was discharged home. They recommended Cytotec at that time however patient's bleeding had eased off and she elected to follow-up in the next day where she was prescribed Methergine which she has taken 3 times a day. Her bleeding has been largely controlled since then however as of 3:00 today she started soaking through a pad an hour. Related Data Home Medications ?Medication ?Instructions ?Recorded ?Confirmed famotidine 20 mg tablet (Pepcid) 20 mg PO DAILY 05/24/24 12/03/24 ondansetron 8 mg disintegrating 8 mg PO DAILY 05/24/24 12/03/24 tablet vit no.133-ferrous 1 tab PO DAILY 05/24/24 12/03/24 fumarate 28 mg-folic acid 800 mcg tablet () Previous Rx's ?Medication ?Instructions ?Recorded amoxicillin 875 mg tablet 875 mg PO BID #20 tabs 12/03/24 Allergies Allergy/AdvReac Type Severity Reaction Status Date / Time celecoxib (From Celebrex) Allergy Severe Anaphylaxis Verified 12/03/24 09:45 latex (LATEX) Allergy Severe Anaphylaxis Verified 12/03/24 09:45 coconut Allergy Unknown Anaphylaxis Verified 12/03/24 09:45 Pertussis Vaccines Allergy Unknown Unknown Verified 12/03/24 09:45 (PERTUSSIS VACCINES) allergy reaction pineapple (PINEAPPLE) Allergy Unknown Unknown Verified 12/03/24 09:45 allergy reaction Sulfa (Sulfonamide Allergy Unknown Unknown Verified 12/03/24 09:45 Antibiotics) (SULFA allergy (SULFONAMIDE ANTIBIOTICS)) reaction dicyclomine (From Bentyl) AdvReac Verified 12/03/24 09:45 ketamine AdvReac Verified 12/03/24 09:45 [facility] Disclaimer: The information contained in this section may have been updated after the patient was seen, as this information can be updated by other users. Medical History Liver disease Depression Anxiety History of anemia History of gastroesophageal reflux (GERD) Kidney stone Migraine Surgical History History of tonsillectomy History of cholecystectomy History of section Family History Grandfather Cancer Colon Cancer Mother Cancer Thyroid Cancer Sister Cancer Cervical Cancer Grandmother Cancer Maternal Grandmother-Cervical, Breast and Lung Cancer Social History Smoking Status: Never smoker second hand exposure: No alcohol intake: never current occupational status: employed Travel in the last 8 weeks: None household members: other housing: house 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 current occupational exposures/hazards: No caffeine: Yes Have you lived/traveled outside US in past 30 days?: No Contact w/someone who lives/traveled outside US past 30 days?: No Exposure to someone with infectious disease in past 14 days?: No Do you have a fever (greater than 100.4 F or 38 C)?: No Have you tested positive for COVID-19: No Exposed to someone with COVID-19 in past 14 days?: No Do you have a sore throat?: No Do you have a cough?: No Do you have any weakness?: No Do you have any diarrhea?: No Are you experiencing any unusual bleeding?: No Do you have any muscle aches/pain?: No Do you have any abdominal pain?: No Are you experiencing loss of taste or smell?: No Other Medical History Have you received the Flu Vaccine for this season: Yes Have you received the Pneumonia Vaccine: No ROS Obtained: Yes Systems reviewed as appropriate & no additional complaints except as documented Physical Exam General General appearance: alert and in no apparent distress Head Head exam: atraumatic and normocephalic Eye Eye exam: Present PERRL and EOMI ENT ENT exam: Present mucous membranes moist Neck Neck exam: Present normal inspection Chest Chest inspection: Present normal inspection and symmetric chest wall rise Respiratory Respiratory exam: Absent respiratory distress Cardiovascular Cardiovascular exam: Present regular rate and normal rhythm Abdominal Exam Abdominal exam: Present soft, tenderness (Mild, left lower quadrant) and guarding (Voluntary); Absent rebound or rigidity Extremities Exam Extremities exam: Present normal inspection Neurological Exam Neurological exam: Present alert Psychiatric Psychiatric exam: Present normal affect Skin Skin exam: Present warm and dry Medical Decision Making Medical Records Screening: Per USPSTF and CDC recommendations, given the prevalence of disease in our region, it is our hospital?s policy to screen for HIV and viral Hepatitis for all patients aged 18 and over and those with ongoing risk factors. Federico Inquiry Pt receiving controlled substance: No Vital Signs: 12/29/24 20:18 12/29/24 20:45 12/29/24 22:01 Temperature 98.2 F Temperature Source Oral Pulse Rate 72 Pulse Rate [Right] 83 Respiratory Rate 18 Blood Pressure 138/82 123/76 Blood Pressure [Right Arm] 128/89 Blood Pressure Mean [Right Arm] 102 Blood Pressure Position [Right Arm] Supine 02 Sat by Pulse Oximetry 99 96 96 Oxygen Delivery Method Room Air Room Air Room Air Lab Data Lab Results 12/29/24 20:37: HCG, Quant 3 12/29/24 21:00: Urine Color Yellow, Urine Appearance Clear, Urine pH 6.5, Ur Specific [place] 1.025, Urine Protein 1+ A, Urine Glucose (UA) Negative, Urine Ketones Negative, Urine Blood 3+ A, Urine Nitrate Negative, Urine Bilirubin Negative, Urine Urobilinogen 0.2, Ur Leukocyte Esterase 2+ A, Urine RBC 20-50, Urine WBC 10-20, Ur Squamous Epith Cells 3-5, Ur Transition Epith Cell Occ, Urine Bacteria 3+ 12/29/24 21:33: WBC 8.0, RBC 4.27, Hgb 12.2, Hct 38.1, MCV 89.2, MCH 28.6, MCHC 32.0, RDW 12.8, Plt Count 410, MPV 9.0, Neut % (Auto) 58.0, Lymph % (Auto) 26.2, [place] % (Auto) 10.1 H, Eos % (Auto) 3.9, Baso % (Auto) 1.1, Neut # (Auto) 4.7, Lymph # (Auto) 2.1, [place] # (Auto) 0.8, Eos # (Auto) 0.3, Baso # (Auto) 0.1, Sodium 139, Potassium 4.0, Chloride 105, Carbon Dioxide 28, Anion Gap 10.0, BUN 8, Creatinine 0.50 L, Estimated Creat Clear 168, Estimated GFR 143, Est GFR ( Amer) 173, Glucose 99, Calcium 9.1, Total Bilirubin 0.2, AST 28, ALT 20, Alkaline Phosphatase 146 H, Total Protein 7.2, Albumin 4.1, Globulin 3.1, Albumin/Globulin Ratio 1.3 12/29/24 21:33 12/29/24 21:33 Orders (Tests/Meds): ED MEDICATIONS Discontinued Medications Generic Name Dose Route Start Last Admin Trade Name Freq PRN Reason Stop Dose Admin Cefdinir 300 mg 12/29/24 22:20 12/29/24 22:23 Cefdinir 300mg Capsule PO 12/29/24 22:21 300 mg ONCE ONE Administration Morphine Sulfate 4 mg 12/29/24 20:28 12/29/24 20:36 Morphine 4mg/Ml Syringe IV 12/29/24 20:29 4 mg ONCE ONE Administration Morphine Sulfate 4 mg 12/29/24 21:44 12/29/24 21:52 Morphine 4mg/Ml Syringe IV 12/29/24 21:45 4 mg ONCE ONE Administration Ondansetron HCl 4 mg 12/29/24 20:28 12/29/24 20:36 Ondansetron 4mg/2ml Vial IV 12/29/24 20:29 4 mg ONCE ONE Administration Promethazine HCl 12.5 mg 12/29/24 21:44 12/29/24 21:51 Promethazine Hcl 25mg/Ml 1ml Vial IV 12/29/24 21:45 12.5 mg ONCE ONE Administration Sodium Chloride 25 ml 12/29/24 21:44 12/29/24 21:52 Sodium Chloride 0.9% 25ml Bag IV 12/29/24 21:45 25 ml ONCE ONE Administration ORDERS Category Date Time Status US transvaginal Stat Exams 12/29/24 20:27 Completed CBC w/Auto Diff [Complete Blood Count Auto Diff] Stat Lab 12/29/24 21:33 Completed CMP [Comprehensive Metabolic Panel] Stat Lab 12/29/24 21:33 Completed HCG,Quantitative Stat Lab 12/29/24 20:37 Completed HIV Combo Stat Lab 12/29/24 21:33 Received Hepatitis C Ab Qual. W/ RFX Stat Lab 12/29/24 21:33 Received UA [Urinalysis and Microscopic] Stat Lab 12/29/24 21:00 Completed Urine Culture Stat Micro 12/29/24 21:00 Received Medical Decision Narrative: In summary patient is a 34-year-old female with past medical history described above who presents emergency department for evaluation of left lower quadrant abdominal pain and vaginal bleeding in the setting of recent section. Patient is hemodynamically stable nontoxic-appearing upon arrival, afebrile, mild tenderness and appearing in pain in her left lower quadrant. The pain is different today from previous given that she has superimposed lancinating pain 3-4 times an hour on top of her baseline deep boring pain. She has had previous imaging which was nonactionable 2 days ago. Differential includes small amount of retained products of conception, torsion, among others. Workup to be conducted with hematologic labs, urinalysis, transvaginal ultrasound with Doppler flow. Initial inventions include Zofran, morphine. Toradol was considered however given her history of recurrent GI bleed shared decision making discussion was had at bedside and will be deferred. Initial workup reviewed by me, hematologic labs are nonactionable no significant leukocytosis improved hemoglobin, no APOLINAR or critical electrolyte abnormality. Patient's body is compensating despite her ongoing vaginal bleeding. Urinalysis interpreted by me and consistent with infection with proteinuria which will be treated with cefdinir. Transvaginal ultrasound no acute findings normal Doppler flow. Upon repeat evaluation patient had significant resolution of her symptoms and has definitive follow-up with TRAVELING STOREKEEPER on Wednesday and is appropriate for discharge at this time. Critical Care Critical Care Time Critical Care Time: No
[2024-12-29] MEDS: MORPHINE 4MG/ML SYRINGE 4 MG IV ×2 (20:36→21:52)
[2024-12-29] MEDS: ONDANSETRON 4MG/2ML VIAL 4 MG IV (20:36)
[2024-12-29 20:45] VITALS: BP 138/82; O2SAT 96
[2024-12-29 20:54] LABS: Basophils # 0.1 K/mm3 (0-0.2); Basophils % 1.1 % (0.1-2.0); Eosinophils # 0.3 K/mm3 (0.0-0.4); Eosinophils % 3.9 % (0.1-12.0); Hematocrit 38.1 % (37.0-47.0); Hemoglobin 12.2 g/dL (12.2-16.2); Lymphocytes # 2.1 K/mm3 (0.7-4.5); Lymphocytes % 26.2 % (10-50); Mean Corpuscular Hemoglobin 28.6 pg (27.0-31.2); Mean Corpuscular Volume 89.2 fl (81-99); Monocytes # 0.8 K/mm3 (0.1-1.0); Monocytes % 10.1 % (1.7-9.3); Neutrophils # 4.7 K/mm3 (1.8-7.8); Platelet Count 410 K/mm3 (142-424); Red Blood Count 4.27 M/mm3 (4.20-5.40); Red Cell Distribution Width 12.8 % (11.5-17.5)
[2024-12-29 21:06] LABS: Microscopic, Urine URINE MICROSCOPIC (MICROSCOPIC)
[2024-12-29 21:16] LABS: Appearance,Urine CLEAR (Clear); Bilirubin,Urine Negative (Negative); Blood, Urine 3+ (Negative); Color,Urine YELLOW (Yellow); Glucose,Urine (UA) Negative (Negative); Ketones,Urine Negative (Negative); Leukocyte Esterase,Urine 2+ (Negative); Nitrate,Urine Negative (Negative); PH,Urine 6.5 (5.0-8.5); Protein,Urine 1+ (Negative); Specific Gravity, Urine 1.025 (1.005-1.030); Urobilinogen,Urine 0.2 EU/dl (0.2)
[2024-12-29 21:35] LABS: RBC,Urine 20-50 #/hpf (0-3); Transitional Epi Cells,Urine OCC #/lpf (0-3)
[2024-12-29 21:36] LABS: Bacteria,Urine 3+ /lpf
[2024-12-29] MEDS: PROMETHAZINE HCL 25MG/ML 1ML VIAL 12.5 MG IV (21:51)
[2024-12-29] MEDS: SODIUM CHLORIDE 0.9% 25ML BAG 25 ML IV (21:52)
[2024-12-29 22:01] VITALS: BP 123/76; PULSE 72; O2SAT 96
[2024-12-29 22:03] LABS: Albumin Level 4.1 g/dl (3.5-5.0); Chloride 105 mmol/L (98-107); Sodium 139 mmol/L (136-145)
[2024-12-29 22:06] LABS: Alanine Aminotransferase 20 U/L (12-78); Albumin/Globulin Ratio 1.3 (1.1-1.8); Alkaline Phosphatase 146 U/L (38-126); Aspartate Amino Transferase 28 U/L (14-36); Bilirubin,Total 0.2 mg/dl (0.2-1.3); Blood Urea Nitrogen 8 mg/dl (7-17); Calcium 9.1 mg/dl (8.4-10.2); Carbon Dioxide 28 mmol/L (22.0-30.0); Creatinine Clearance Estimated 168 mL/min (50-200); Estimated Glomerular Filt Rate 143 ml/min (>60); GFR (African American) 173 ML/MIN (>60); Globulin 3.1 g/dL (1.3-3.2); Glucose 99 mg/dl (74-100); Total Protein,Serum 7.2 g/dl (6.3-8.2)
--- NOTE | 2024-12-29 22:17 | PC.NURSE ---
Per Clyde at [facility] pharmacy, cefdinir is safe in .
[2024-12-29 22:23] LABS: HCG,Quantitative 3 mIU/ml (0-5.42)
[2024-12-29] MEDS: CEFDINIR 300MG CAPSULE 300 MG PO (22:23)
[2024-12-29 22:37] VITALS: BP 123/76; PULSE 73; RESP 15; TEMP 36.7; O2SAT 96
[2024-12-29 23:01] LABS: HIV Combo NEGATIVE (Negative)
[2024-12-29 23:17] LABS: Hepatitis C Ab Qual. W/ RFX NEGATIVE (Negative)
--- OUTSIDE RECORDS SUMMARY | 2025-01-04 19:44 | XMS_ITS | Data Portability ---
Author Organization FELIPE - [facility] - [facility] & CATINA Singh ADMIN Address [address] [place] [address] [place] [address] Assessment Encounter Date Assessment Date Assessment LastModified by Organization Details LastModified Time 12/17/2022 12/17/2022 Patient has a history of chronic abdominal pain syndrome, questionable COHEN was referred to our clinic for management of chronic pain. 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 Of note, patient has significant family history of drug abuse and that her mother is the [facility] and reports that her surrounding is filled with people who are addicted to drugs and she does not feel safe with controlled substance with her. Patient presents to the clinic today for additional pain. She complains of returning mid back pain that increases with prolonged standing along with muscle tightness/spasms, likely associated with spinal enthesopathy and thoracic spondylosis, as evidenced by history and physical exam. To address the patient's pain: Patient had a BTRF at T9-11 in 07/2021 that provided significant pain relief of nearly 100%, but the pain has recently returned. As the patient received significant benefit from previous RFA, I will proceed with scheduling a BTMBB at T9-11. If the patient receives greater than 80% pain relief for 6 hours or more, I will proceed with scheduling a thoracic RFA to allow more long-term pain relief. I will also proceed with scheduling a TPI of the bilateral thoracic region targeting the bilateral longissimus thoracis, thoracis spinalis, and rhomboid muscles. I believe this injection will best target her underlying myofascial pain. I again had a detailed discussion with the patient regarding the procedure and the risks/benefits and addressed any questions/concern s today. Of note, the patient performs at home exercises/stretch es and other conservative measures for pain management with minimal benefit. 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 The patient also complains of neck pain that radiates into the LUE causing numbness/tingling to the hands. Prior to addressing the neck pain, I will order a cervical spine x-ray to assess for any arthritic/degener ative changes. Once I have addressed the patient's mid-back pain, I will discuss further injections to address her neck pain. Regarding medication: Patient is currently taking Tizanidine 4mg Q12 that is helpful in managing pain, requesting a refill. I will refill her Tizanidine 4mg Q12 for 2 months to help alleviate her myofascial pain. - Schedule a BTMBB at T9-11 - Schedule a TPI of the bilateral thoracic region - Order a cervical x-ray today - Medication for 2 months: Tizanidine 4mg Q12 #60 - Follow up 1 week post block to assess efficacy I have discussed in great detail our potential treatment options which would include a rehabilitative approach to care. This program would include medication management, Physical Therapy, consideration for interventional procedures as appropriate, and lifestyle modification (diet, weight loss, exercise, smoking/tobacco cessation, holistic approach including meditation and yoga). The patient understands and agrees prior to proceeding with this plan. _ __ __ __ __ __ __ __ __ __ __ __ __ __ __ __ __ __ __ __ __ __ __ __ __ __ __ __ _ RECORDS REVIEW: As per clinic policy, we will have the patient sign a release to obtain previous imaging and clinical notes. PROCEDURE: I counseled the patient extensively and informed of the risks of the procedure, including the risk of paralysis, nerve damage, respiratory arrest, arrhythmias, stroke, weakness, and infection, which although very low, could result in or disability. The patient acknowledged to me that they understand and accept these risks. RN EDUCATION Extensive coordination of care provided by RN to educate patient on upcoming procedure and to coordinate obtaining extensive incoming medical records. _ __ __ __ __ __ __ __ __ __ __ __ __ __ __ __ __ __ __ __ __ __ __ __ __ __ __ __ _ PSYCH: Pain affecting Neuro-psych behavior was discussed. Discussed about pain psychological counseling as a part of the multimodal approach to pain treatment. _ __ __ __ __ __ __ __ __ __ __ __ __ __ __ __ __ __ __ __ __ __ __ __ __ __ __ __ _ REHABILITATION: Discussed with the patient the importance of diet, daily physical activity and PT. Discussed with the patient the need to be scheduled for physical therapy since physical therapy will prolong the benefits of the procedure and interventions. _ __ __ __ __ __ __ __ __ __ __ __ __ __ __ __ __ __ __ __ __ __ __ __ __ __ __ __ _ JOE: [id number] I have reviewed patient's JOE report prior to prescribing Schedule II, III, and IV medications that require review by law. Not available 12/17/2022 12:55:12 01/22/2023 01/22/2023 The patient was referred for chronic pain management. The patient has a history of chronic abdominal pain syndrome and questionable COHEN. The patient is unable to take NSAIDs due to a history of GI bleed x8 and Clarice-Guevara tear x2 with subsequent corrective surgeries. The patient also has a significant family history of drug abuse. Of note, the patient's mother follows with pain management. The patient presents to the clinic today to discuss the treatment plan. The previously scheduled procedure (bilateral thoracic medial branch block at T9-T11) was denied by insurance, although a previously performed thoracic RFA was successful in decreasing pain by nearly 100%. I will work on approval of the procedure. The patient continues to complain of mid back pain. Based on the history and physical exam it appears that the pain is associated with thoracic spondylosis and spinal enthesopathy. I also think much of the pain is myofascial in nature, further she will likely benefit from a TPI of the thoracic region. The patient would like to receive both procedures on the same day. The patient takes Tizanidine 4 mg Q12 hours prn, which is effective and well-tolerable. Of note, the patient performs at-home exercises/stretch es and other conservative measures for pain relief with minimal benefit. 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 I will contact the patient once the procedure is approved. I have discussed in great detail our potential treatment options which would include a rehabilitative approach to care. This program would include medication management, Physical Therapy, consideration for interventional procedures as appropriate, and lifestyle modification (diet, weight loss, exercise, smoking/tobacco cessation, holistic approach including meditation and yoga). The patient understands and agrees prior to proceeding with this plan. _ __ __ __ __ __ __ __ __ __ __ __ __ __ __ __ __ __ __ __ __ __ __ __ __ __ __ __ _ RECORDS REVIEW: As per clinic policy, we will have the patient sign a release to obtain previous imaging and clinical notes. PROCEDURE: I counseled the patient extensively and informed of the risks of the procedure, including the risk of paralysis, nerve damage, respiratory arrest, arrhythmias, stroke, weakness, and infection, which although very low, could result in or disability. The patient acknowledged to me that they understand and accept these risks. RN EDUCATION Extensive coordination of care provided by RN to educate patient on upcoming procedure and to coordinate obtaining extensive incoming medical records. _ __ __ __ __ __ __ __ __ __ __ __ __ __ __ __ __ __ __ __ __ __ __ __ __ __ __ __ _ PSYCH: Pain affecting Neuro-psych behavior was discussed. Discussed about pain psychological counseling as a part of the multimodal approach to pain treatment. _ __ __ __ __ __ __ __ __ __ __ __ __ __ __ __ __ __ __ __ __ __ __ __ __ __ __ __ _ REHABILITATION: Discussed with the patient the importance of diet, daily physical activity and PT. Discussed with the patient the need to be scheduled for physical therapy since physical therapy will prolong the benefits of the procedure and interventions. _ __ __ __ __ __ __ __ __ __ __ __ __ __ __ __ __ __ __ __ __ __ __ __ __ __ __ __ _ JOE: [id number] I have reviewed patient's JOE report prior to prescribing Schedule II, III, and IV medications that require review by law. [email or web address] Not available 01/22/2023 13:01:57 Plan of Treatment Reminders Order Date Submit Date Provider Last Modified By Organization Details Last Modified Time Details Appointments None recorded. Lab None recorded. Referral None recorded. Procedures medial branch block, thoracic (PROC) - 33709, 17195 bilateral T9-T11 2022 023 [email or web address] Not available 3 15:54:30 injection , trigger point (PROC) - 00307, 62532 bilateral thoracic region including longissim us thoracis, thoracis spinalis and rhomboid muscles 2022 023 [email or web address] Not available 3 15:03:18 Surgeries None recorded. [facility], [email or web address] Not [facility] 3 13:45:07 Medication Orders tizanidin e 4 mg tablet 2022 023 [facility], [address] [place] [address], [id number], 3 22:28:06 Patient TargetsNo targets recorded. Patient InstructionsNo instructions recorded. Reason for Referral None Reported. Problems Name Problem SNOMED Code Status Onset Date Resolution Date Notes Provider Name and Address Organization Details Recorded Time Neck pain 91094845 Active 2022 Not Available [facility] 3 14:05:10 Spinal stenosis in cervical region 39839093 Active 2022 Not Available [facility] 3 14:05:10 Lumbar spondylosi s 680744060 Active 2022 Not Available [facility] 3 14:05:09 Thoracic spondylosi s 976861839 Active 2022 Not Available [facility] 3 14:05:10 Myofascial pain 405570044 Active 2022 Not Available [facility] 3 14:05:09 Dextroscol iosis 3098231034604 01 Active 2022 Not Available [facility] 3 14:05:10 Pain in pelvis 89635417 Active 2022 Not Available [facility] 3 14:05:09 History of endometrio sis 2462336500950 4107 Active 2022 Not Available [facility] 3 14:05:09 Pain in thoracic spine 798651026 Active 2022 Not Available [facility] 3 14:05:09 Problem Notes None recorded. Procedures Surgical History Date Name Laterality Status Provider Name and Address Organization Details Recorded Time tonsilectom y/adenoids completed Maria Eugenia WANG [facility] [place] 12/11/2022 11:34:45 Imaging Results None recorded. Procedure Notes None recorded. Medical Equipment None Reported. Allergies Allergen ID Allergen Name Allergen Category Reaction Reaction Severity Criticality Documentation Date Start Date Code Code System Note Provider Name and Address Organization Details Recorded Time 44564 latex environme nt,medica tion Not available Not available Not available 12/11/2022 57632 91 RxNorm [facility] [place] [facility] 11:33:33 26193 Substance with sulfonami de structure and antibacte rial mechanism of action (substanc e) medicatio n Not available Not available Not available 12/11/2022 31760 8003 SNOMED [facility] [place] 3 11:33:38 Medications Name Sig Start Date Stop Date Status Note LastModified by Organization Details LastModified Time amoxicillin 500 mg capsule TAKE ONE CAPSULE BY MOUTH THREE TIMES DAILY FOR 10 DAYS -- FINISH ALL MEDICINE -- active Not Available Not Available No t Available prednisone 10 mg tablet TAKE FOUR TABLETS BY MOUTH EVERY DAY FOR 3 DAYS, TAKE THREE TABLETS EVERY DAY FOR 3 DAYS, TAKE TWO TABLETS EVERY DAY FOR 3 DAYS, TAKE ONE TABLET EVERY DAY FOR 3 DAYS --TAKE WITH FOOD-- active Not Available Not Available No t Available azithromyci n 250 mg tablet TAKE 2 TABLETS BY MOUTH ON DAY 1, THEN TAKE 1 TABLET DAILY ON DAYS 2-5 active Not Available Not Available No t Available ibuprofen 800 mg tablet TAKE ONE TABLET BY MOUTH THREE TIMES DAILY --TAKE WITH FOOD-- 01/22 completed Not Available Not Available Not Available Lidocaine Viscous 2 % mucosal solution active Not Available Not Available Not Available tizanidine 4 mg tablet TAKE ONE TABLET BY MOUTH TWICE DAILY active Not Available Not Available No t Available fluconazole 150 mg tablet TAKE ONE TABLET BY MOUTH A ONE-TIME DOSE active Not Available Not Available No t Available benzonatate 200 mg capsule TAKE ONE CAPSULE BY MOUTH THREE TIMES DAILY -SWALLOW WHOLE. DO NOT CRUSH OR CHEW- active Not Available Not Available No t Available hydrocodone 5 mg-acetamin ophen 325 mg tablet TAKE 1 TABLET BY MOUTH EVERY 6 HOURS NEEDED FOR PAIN active Not Available Not Available No t Available sucralfate 1 gram tablet TAKE ONE TABLET BY MOUTH FOUR TIMES DAILY (BEFORE MEALS AND AT BEDTIME) active Not Available Not Available No t Available phenazopyri dine 200 mg tablet TAKE ONE TABLET BY MOUTH THREE TIMES DAILY active Not Available Not Available No t Available ondansetron HCl 4 mg tablet active Not Available Not Available Not Available clindamycin HCl 150 mg capsule TAKE TWO CAPSULES BY MOUTH FOUR TIMES DAILY FOR 10 DAYS -- FINISH ALL MEDICINE -- active Not Available Not Available No t Available hydroxyzine HCl 50 mg tablet TAKE ONE TABLET BY MOUTH EVERY DAY AT BEDTIME 01/22 completed Not Available Not Available Not Available ciprofloxac in 250 mg tablet TAKE ONE TABLET BY MOUTH TWICE DAILY FOR 7 DAYS -- FINISH ALL MEDICINE -- active Not Available Not Available No t Available ciprofloxac in 500 mg tablet TAKE ONE TABLET BY MOUTH TWICE DAILY -- FINISH ALL MEDICINE -- active Not Available Not Available No t Available doxycycline monohydrate 100 mg tablet 01/22 completed Not Available Not Available Not Available tramadol 50 mg tablet TAKE ONE TABLET BY MOUTH EVERY 4 TO 6 HOURS NEEDED MAY CAUSE DROWSINES S 01/22 completed Not Available Not Available Not Available ondansetron 8 mg disintegrat ing tablet DISSOLVE ONE TABLET IN MOUTH (ON TOP OF THE TONGUE) EVERY 8 HOURS DIRECTED 01/22 completed Not Available Not Available Not Available ketorolac 10 mg tablet TAKE ONE TABLET BY MOUTH EVERY 4 HOURS while awake FOR FOUR DAYS do not exceed 4 doses PER day active Not Available Not Available No t Available bethanechol chloride 25 mg tablet TAKE ONE TABLET BY MOUTH THREE TIMES DAILY BEFORE meals active Not Available Not Available No t Available oxycodone-a cetaminophe n 5 mg-325 mg tablet TAKE ONE TABLET BY MOUTH EVERY 4 HOURS NEEDED FOR moderate OR SEVERE pain MAY CAUSE DROWSINES S active Not Available Not Available No t Available amoxicillin 875 mg tablet active Not Available Not Available Not Available clindamycin 1 % topical gel APPLY TOPICALLY TO THE AFFECTED AREA(S) THREE TIMES DAILY FOR 30 DAYS active Not Available Not Available No t Available tamsulosin 0.4 mg capsule TAKE ONE CAPSULE BY MOUTH EVERY DAY active Not Available Not Available No t Available hydrocodone 7.5 mg-acetamin ophen 325 mg tablet TAKE ONE TABLET BY MOUTH EVERY 6 HOURS MAY CAUSE DROWSINES S active Not Available Not Available No t Available pantoprazol e 40 mg tablet,bartolo yed release TAKE ONE TABLET BY MOUTH TWICE DAILY active Not Available Not Available No t Available ferrous sulfate 325 mg (65 mg iron) tablet TAKE 1 TABLET BY MOUTH 1 TIME EACH DAY WITH BREAKFAST . active Not Available Not Available No t Available promethazin e 25 mg tablet TAKE ONE TABLET BY MOUTH EVERY TWELVE HOURS active Not Available Not Available No t Available gabapentin 300 mg capsule TAKE ONE TABLET BY MOUTH EVERY 8 HOURS active Not Available Not Available No t Available buspirone 7.5 mg tablet TAKE ONE TABLET BY MOUTH TWICE DAILY active Not Available Not Available No t Available hydroxyzine HCl 25 mg tablet TAKE ONE TABLET BY MOUTH EVERY DAY AT BEDTIME active Not Available Not Available No t Available gabapentin 100 mg capsule TAKE ONE CAPSULE BY MOUTH THREE TIMES DAILY MAY CAUSE DROWSINES S 01/22 completed Not Available Not Available Not Available methylpredn isolone 4 mg tablets in a dose pack TAKE ACCORDING TO PACKAGE INSTRUCTI ONS --TAKE WITH FOOD-- -- FINISH ALL MEDICINE -- active Not Available Not Available No t Available bromphenira mine-pseudo ephedrine-D M 2 mg-30 mg-10 mg/5 mL oral syrup active Not Available Not Available Not Available ondansetron 4 mg disintegrat ing tablet DISSOLVE ONE TABLET in MOUTH EVERY 8 HOURS NEEDED FOR NAUSEA active Not Available Not Available No t Available cefdinir 300 mg capsule TAKE ONE CAPSULE BY MOUTH TWICE DAILY FOR 10 DAYS -- FINISH ALL MEDICINE -- --TAKE WITH FOOD-- active Not Available Not Available No t Available Clomid 50 mg tablet TAKE 1 TABLET BY MOUTH ONCE DAILY FO RCYCLE DAYS 3-7 active Not Available Not Available No t Available progesteron e micronized 100 mg capsule TAKE TWO CAPSULES BY MOUTH EVERY DAY STARTING ON DAY 18 of CYCLE 01/22 completed Not Available Not Available Not Available amoxicillin 875 mg-potassiu m clavulanate 125 mg tablet TAKE 1 TABLET BY MOUTH EVERY 12 HOURS FOR 10 DAYS active Not Available Not Available No t Available amoxicillin 500 mg-potassiu m clavulanate 125 mg tablet TAKE 1 TABLET BY MOUTH TWICE DAILY FOR 7 DAYS active Not Available Not Available No t Available oxycodone 5 mg tablet TAKE 1 TABLET BY MOUTH EVERY 6 HOURS NEEDED SEVERE PAIN active Not Available Not Available No t Available escitalopra m 10 mg tablet TAKE ONE TABLET BY MOUTH EVERY DAY active Not Available Not Available No t Available escitalopra m 20 mg tablet TAKE ONE TABLET BY MOUTH EVERY DAY AT BEDTIME active Not Available Not Available No t Available nitrofurant oin monohydrate /macrocryst als 100 mg capsule TAKE ONE CAPSULE BY MOUTH TWICE DAILY active Not Available Not Available No t Available pregabalin 75 mg capsule Take 1 capsule every day by oral route at bedtime for 30 days. 01/22 completed Not Available Not Available Not Available chlorhexidi ne gluconate 0.12 % mouthwash FILL SUPPLIED CUP (1/2 OUNCE); SWISH IN MOUTH FOR 30 SECONDS TWICE DAILY (AFTER BREAKFAST & BEFORE BEDTIME). SWISH THEN EXPEL REMAINDER OR USE DIRECTED active Not Available Not Available No t Available diclofenac 1 % topical gel active Not Available Not Available Not Available B12 active Not Available Not Availa ble Not Available Lo Loestrin Fe 1 mg-10 mcg (24)/10 mcg (2) tablet TAKE ONE TABLET BY MOUTH EVERY DAY 01/22 completed Not Available Not Available Not Available naloxone 4 mg/actuatio n nasal spray CALL 911. DO NOT PRIME. SPRAY INTO NOSTRIL UPON SIGNS OF OPIOID OVERDOSE. MAY REPEAT IN 2-3 MINUTES IN OPPOSITE NOSTRIL IF NO OR MINIMAL BREATHING AND RESPONSIV ENESS THEN NEEDED EVERY 2-3 MINUTES (IF AVAILABLE ) active Not Available Not Available No t Available Vraylar 1.5 mg capsule TAKE ONE CAPSULE BY MOUTH EVERY DAY 01/22 completed Not Available Not Available Not Available Orilissa 200 mg tablet TAKE ONE TABLET BY MOUTH TWICE DAILY AT [facility] THE same timeS each DAY 01/22 completed Not Available Not Available Not Available Paxlovid 300 mg (150 mg x 2)-100 mg tablets in a dose pack TK 2 NIRMATREL VIR TS AND 1 RITONAVIR T TOGETHER PO BID FOR 5 DAYS active Not Available Not Available No t Available Vitals Date Recorded Body weight Body temperature Oxygen saturation Oxygen saturation in Arterial blood by Pulse oximetry Heart rate Systolic blood pressure Diastolic blood pressure Provider Name and Address Organization Details Last Updated DateTime 3 76888.3 7 g 97.1 [degF] 99 % 99 % 67 /min 126 mm[Hg] 73 mm[Hg] Michelle Rangel [facility] [place] 3 11:41:58 Date Recorded Body height Body mass index (BMI) Body weight Body temperature Oxygen saturation Oxygen saturation in Arterial blood by Pulse oximetry Heart rate Respiratory rate Systolic blood pressure Diastolic blood pressure Provider Name and Address Organization Details Last Updated DateTime 3 175.26 cm 24.9 kg/m2 34116.6 7 g 97.1 [degF] 100 % 100 % 80 /min 20 /min 113 mm[Hg] 72 mm[Hg] Ignacia Faust [facility] [place] 3 11:52:15 Social History None recorded. Functional Status None recorded. Mental Status None recorded. Family History Relationship Description Onset Age of this Age Resolved Age Notes LastModified by Organization Details LastModified Time Mother Malignant neoplastic disease [email or web address]_[email or web address] Not available 03/27 14:05:07 Father Hypertensive disorder CHART_MERGE Not available 03/27 14:05:08 Medical History Condition Response Coronary Artery Disease N Gout N None N Head Trauma/Injury N Hernia N Depression N COPD N Anxiety Disorder Y Arthritis N Acid Reflux (GERD) Y Cancer N Stroke N Back Injury N High Cholesterol N Liver Disease N Fibromyalgia N Headaches N Kidney Disease N Thyroid Problems N Anemia N Heart Attack (NM) N Ulcers N Diabetes N Bleeding Disorder N Tuberculosis N AIDS/HIV N Asthma N Substance Abuse N Hepatitis N Heart Disease N Hypertension N Osteoporosis N Gynecological HistoryNo gynecological history recorded. Obstetrics History GPAL:G 0 P 0 0 0 0 Past Encounters Encounter ID Performer Location Encounter Start Date Encounter Closed Date Diagnosis/Indication Diagnosis SNOMED-CT Code Diagnosis ICD10 Code Diagnosis Note [id number] Robinson Springer MD [facility] [address] [facility] [place] [address] 12/17/2022 11:23:48 12/17/2022 12:06:58 Neck pain 94131082 M54.2 Spinal venita nosis in cervical region 68243408 M99.51 Lumbar spondylosis 26520 0009 M47.816 Myofascial pain 03765988 9 M79.10 Thoracic spondylosis 387 822150 M47.814 Dextroscoliosis 04182179 01 52346 M41.9 Pain in pelvis 27635505 R10.2 History of endometriosis 9475988062 8969449 Z87.42 Pain in th oracic spine 301438861 M54.6 Spinal enthesopathy 1031 7009 M46.04 [id number] SAIDA DEL REAL PA-C [facility] [address] [facility] [place] [address] 01/22/2023 11:36:10 01/22/2023 12:03:48 Spinal enthesopathy 31434416 M46.04 Spinal venita nosis in cervical region 63398835 M99.51 Thoracic spondylosis 387 684814 M47.814 Myofascial pain 76764668 9 M79.10 Neck pain 15795370 M54.2 Lumbar spondylosis 91259 0009 M47.816 Dextroscoliosis 97817041 01 36429 M41.9 Pain in pelvis 03899858 R10.2 History of endometriosis 2731109824 0825415 Z87.42 Pain in th oracic spine 908276931 M54.6 Health Concerns Section Related Observation LastModified by Organization Detai ls LastModified Time None Recorded Concern Status LastModified by Organization Details LastModified Time None Recorded Advance Directives Directive None Recorded Payers Encounter Date Sequence Insurance Name Policy Number Policy Interiano Covered Member ID Interiano Member ID Guarantor Name 12/17/2022 1 [place] [id number] 1 Maia Kovacs [id number] Maia Kovacs 01/22/2023 1 [place] [id number] Maia Kovacs [id number] Maia Kovacs Notes Date Note Type Note Provider Name and Address Organization Details Recorded Time 3 text/html Ms. Kovacs was referred by her PCP to Dr. Rosas originally, but who has decided to re-establish with our clinic. The patient reports a history of chronic abdominal pain syndrome, questionable COHEN was referred to our clinic for management of chronic pain. The patient's care was established due to patient's complaints of horrible thoracic pain on the right side more than left which she describes as fire in her back . 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 Patient was last seen in 06/2021. Patient presents to the clinic today for additional pain. She complains of returning mid back pain that causes increased pain with prolonged standing along with muscle tightness/spasms. She is requesting repeat injections to manage. Patient is post BTRF in 07/2021 which provided significant pain relief of nearly 100%, but the pain has recently returned. She also complains of new onset neck pain with radiation into the LUE causing numbness/tingling. Patient is also requesting a refill of her Tizanidine as it helps manage her pain. Pain level is a 5/10. Of note, patient reported in the past that she has significant family history of drug abuse and that her mother is the Pain Clinic and reports that her surrounding is filled with people who are addicted to drugs and she does not feel safe with controlled substance with her. Initial complaint: chronic low back pain Onset: 5+ years Context: worsening over time Character: sharp, dull, stabbing Location: mid-low back Duration: constant with fluctuations Initial Intensity: 5/10 Worse: standing, ROM, driving, activity Better: rest Associated symptoms: Denies saddle anaesthesia, denies acute bowel/bladder changes, denies acute power loss. ADLs: The patient's pain interferes with daily chores, exercise, sleep, relationships, and walking. Current Pain Medications: Tizanidine 4mg Q12 Prior Pain Medications: Reports being on intermittent opioids hydrocodone/a Pap and gabapentin 100 mg NSAIDS/OTC: mildly helpful Non-interventional Tx: TENS unit Physical Therapy: at home exercises/stretches Interventional Tx: Reports Thoracic rhizotomy in 2008, LRFA March 2020 Surgery: none Imaging/Studies: none Robinson Springer MD [address], [place], [address], [facility] [place] 12/17/2022 22:28:10 3 text/html Ms. Kovacs was referred by her PCP to Dr. Rosas originally, but who has decided to re-establish with our clinic. The patient reports a history of chronic abdominal pain syndrome, questionable COHEN was referred to our clinic for management of chronic pain. The patient's care was established due to patient's complaints of horrible thoracic pain on the right side more than left which she describes as fire in her back . 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 The patient reported in the past that she has significant family history of drug abuse and that her mother is the Pain Clinic and reports that her surrounding is filled with people who are addicted to drugs and she does not feel safe with controlled substance with her. The patient presents to the clinic today to discuss the treatment plan. The patient states that the previously scheduled procedure (bilateral thoracic medial branch block at T9-T11) was denied by insurance. The patient continues to complain of mid back pain. The patient states that the previously performed thoracic RFA was successful in decreasing pain by nearly 100%. Today the pain level is a 5/10. Initial complaint: chronic low back painOnset: 5+ yearsContext: worsening over timeCharacter: sharp, dull, stabbingLocation: mid-low backDuration: constant with fluctuationsInitial Intensity: 5/10Worse: standing, ROM, driving, activityBetter: restAssociated symptoms: Denies saddle anaesthesia, denies acute bowel/bladder changes, denies acute power loss.ADLs: The patient's pain interferes with daily chores, exercise, sleep, relationships, and walking.Current Pain Medications: Tizanidine 4mg Y55Adkej Pain Medications: Reports being on intermittent opioids hydrocodone/a Pap and gabapentin 100 mgNSAIDS/OTC: mildly helpfulNon-interventiona l Tx: TENS unitPhysical Therapy: at home exercises/stretchesInter ventional Tx: Reports Thoracic rhizotomy in 2008, LRFA March 2020Surgery: noneImaging/Studies: none SAIDA DEL REAL PA-C [address] , [place], [address], [facility] [place] [facility] [place] 01/22/2023 13:03:04 OBGyn Episode No OBEpisode recorded.
--- OUTSIDE RECORDS SUMMARY | 2025-01-04 19:44 | XMS_ITS | Data Portability ---
Author Organization [place] [facility] [place] BRIAN Hobbs [place] [facility] Address [address] [facility] [place] [address] Assessment No assessment recorded. Plan of Treatment Reminders Order Date Submit Date Provider Last Modified By Organization Details Last Modified Time Details Appointments None recorded. Lab urinalysis panel, auto [address] [facility], [address] [facility] [place] [address], [place], [address], 17:16:25 Referral None recorded. Procedures None recorded. Surgeries None recorded. Imaging None recorded. Medication Orders hydrocodone 7.5 mg-acetamin ophen 325 mg tablet [address] [facility], [address] [place] [address] [address] [facility] [address], [place], [id number], 23:16:21 Patient TargetsNo targets recorded. Patient InstructionsNo instructions recorded. Reason for Referral None Reported. Results Created Date Observation Date Name Description Value Unit Range Abnormal Flag Note LastModifiedBy Organization Detail LastModifiedTime 12/01/1911/30/2022 urina lysis panel , auto Unknown Analyte Clean Catch Not Available [facility] [address] [place] [address], [place], [address], 11/30/2022 15:52:30 12/01/19 23 11/30/2022 urina lysis panel , auto Unknown Analyte Yellow Not Available [facility] [address], [place], [address], 11/30/2022 15:52:30 12/01/19 23 11/30/2022 urina lysis panel , auto Unknown Analyte Clear Not Available [facility] [address], [place], [address], 11/30/2022 15:52:30 12/01/19 23 11/30/2022 urina lysis panel , auto Unknown Analyte 1.015 Not Available [facility] [address], [place], [address], 11/30/2022 15:52:30 12/01/19 23 11/30/2022 urina lysis panel , auto Unknown Analyte 7.0 Not Available [facility] [address], [place], [address], 11/30/2022 15:52:30 12/01/19 23 11/30/2022 urina lysis panel , auto Unknown Analyte Negati ve Not Available [facility] [address], [place], [address], 11/30/2022 15:52:30 12/01/19 23 11/30/2022 urina lysis panel , auto Unknown Analyte Negati ve Not Available [facility] [address], [place], [address], 11/30/2022 15:52:30 12/01/19 23 11/30/2022 urina lysis panel , auto Unknown Analyte Negati ve Not Available [facility] [address], [place], [address], 11/30/2022 15:52:30 12/01/19 23 11/30/2022 urina lysis panel , auto Unknown Analyte Normal Not Available [facility] [address], [place], [address], 11/30/2022 15:52:30 12/01/19 23 11/30/2022 urina lysis panel , auto Unknown Analyte Negati ve Not Available [facility] [address], [place], [address], 11/30/2022 15:52:30 12/01/19 23 11/30/2022 urina lysis panel , auto Unknown Analyte Normal Not Available [facility] [address] [facility] [address], [place], [address], 11/30/2022 15:52:30 12/01/19 23 11/30/2022 urina lysis panel , auto Unknown Analyte Negati ve Not Available [facility] [address], [place], [address], 11/30/2022 15:52:30 12/01/19 23 11/30/2022 urina lysis panel , auto Unknown Analyte Negati ve Not Available [facility] [address], [place], [address], 11/30/2022 15:52:30 12/20/19 23 12/18/2022 fluor oscop y (PROC ) No observ ation record ed. [address] [facility], [place], [address], 12/21/2022 21:32:21 Result Notes None recorded. Problems No Known Problems Procedures Surgical History None recorded. Imaging Results Imaging Date Name Status LastModified by Organization Details LastModified Time 12/18/2022 fluoroscopy (PROC) completed [address] [facility], [place], [address], 12/21/2022 21:32:21 Procedure Notes None recorded. Medical Equipment None Reported. Allergies Allergen ID Allergen Name Allergen Category Reaction Reaction Severity Criticality Documentation Date Start Date Code Code System Note Provider Name and Address Organization Details Recorded Time [id number] Substance with sulfonami de structure and antibacte rial mechanism of action (substanc e) medicatio n Not available Not available Not available 11/30/2022 [address]3249 [facility] Ann-Marie Kim [facility] 15:51:45 762919 Non-stero idal anti-infl ammatory agent (product) medicatio n Not available Not available Not available 11/30/[address] [facility] Julio [facility] 15:51:55 284645 Latex (substanc e) environme nt,medica tion Not available Not available Not available 11/30/2022 03902 8007 [facility] 15:52:01 Medications Name Sig Start Date Stop Date Status Note LastModified by Organization Details LastModified Time hydrocodone 7.5 mg-acetaminop hen 325 mg tablet Take 1 tablet every 6 hours by oral route as needed. 023 active Not Available Not Available Not Avai lable Protonix active Not Available Not Avai lable Not Available Lexapro active Not Available Not Avail able Not Available Vitals Date Recorded Body weight Body mass index (BMI) Body height Provider Name and Address Organization Details Last Updated DateTime 11/30/2022 38240.82 g 22.9 kg/m2 175.26 cm Ann-Marie Kim [facility] 11/30/2022 15:51:26 Social History None recorded. Functional Status None recorded. Mental Status None recorded. Family History Nothing Reported. Medical History No medical history recorded. Gynecological HistoryNo gynecological history recorded. Obstetrics History GPAL:G 0 P 0 0 0 0 Past Encounters Encounter ID Performer Location Encounter Start Date Encounter Closed Date Diagnosis/Indication Diagnosis SNOMED-CT Code Diagnosis ICD10 Code Diagnosis Note [id number] MILDRED VIDES MD DIS[facility] [address] [place] [address] 11/30/2022 15:19:19 11/30/2022 16:50:57 Urolithiasis 43878696 N20.9 arrange for above Health Concerns Section Related Observation LastModified by Organization Detai ls LastModified Time None Recorded Concern Status LastModified by Organization Details LastModified Time None Recorded Advance Directives Directive None Recorded Payers Encounter Date Sequence Insurance Name Policy Number Policy Interiano Covered Member ID Interiano Member ID Guarantor Name 11/30/2022 1 [place] [id number] Maia Ellsworth [id number] Maia Ellsworth Notes Date Note Type Note Provider Name and Address Organization Details Recorded Time 11/30/2022 text/html Here for initial visit for urolithiasis. She passed a stone years ago but now has had right sided back pain and urgency for several weeks. She brought ct scan disc from [facility] for review. No hydro and two tiny 1mm stones in right kidney. The pain is sign. at times. We discussed cysto and right retrograde to assess for missed stone on ct scan. MILDRED VIDES MD [facility] [place], [address], [facility] 12/01/2022 23:20:23 OBGyn Episode No OBEpisode recorded.
== END 2024-12-29 22:44 | disposition home or self-care (01) ==
PROVIDERS: Emergency Provider Emergency Medicine; PCP Nurse Practitioner Family
DX: N39.0 Urinary tract infection, site not specified (principal); O90.89 Other complications of the puerperium, not elsewhere classified; R10.32 Left lower quadrant pain; N93.9 Abnormal uterine and vaginal bleeding, unspecified
CPT/HCPCS: 76830; 80053; 81001; 84702; 85025; 86803; 87086; 87088; 87186; 87389; 96374; 96375; 96376; 99284; J2270; J2405; J2550

== ENCOUNTER 2025-02-07 12:22 | Outpatient (CLI) | payer OTHER, SELFPAY ==
[2025-02-07 15:56] LABS: Monoscreen (Rapid) Negative (Negative)
--- OUTSIDE RECORDS SUMMARY | 2025-02-09 12:24 | XMS_ITS | Data Portability ---
Author Organization [place] - [place] BRIAN Hobbs [place] [facility] Address [address] [facility] [address] [place] [address] Assessment No assessment recorded. Plan of Treatment Reminders Order Date Submit Date Provider Last Modified By Organization Details Last Modified Time Details Appointments None recorded. Lab urinalysis panel, auto [address] [facility], [address] [facility], [address], [place], [address], 17:16:25 Referral None recorded. Procedures None recorded. Surgeries None recorded. Imaging None recorded. Medication Orders hydrocodone 7.5 mg-acetamin ophen 325 mg tablet [address] [facility], [address] [place] [address] [address] [facility] [address], [place], [id number], 23:16:21 Patient TargetsNo targets recorded. Patient InstructionsNo instructions recorded. Reason for Referral None Reported. Results Created Date Observation Date Name Description Value Unit Range Abnormal Flag Note LastModifiedBy Organization Detail LastModifiedTime 12/01/1911/30/2022 urina lysis panel , auto Unknown Analyte Clean Catch Not Available [facility] [address], [place], [address], 11/30/2022 15:52:30 12/01/19 23 11/30/2022 urina lysis panel , auto Unknown Analyte Yellow Not Available [facility] [address], [place], [address], 11/30/2022 15:52:30 12/01/19 23 11/30/2022 urina lysis panel , auto Unknown Analyte Clear Not Available [facility] [address], [place], [address], 11/30/2022 15:52:30 12/01/19 23 11/30/2022 urina lysis panel , auto Unknown Analyte 1.015 Not Available [facility] [address], [place], [address], 11/30/2022 15:52:30 12/01/19 23 11/30/2022 urina lysis panel , auto Unknown Analyte 7.0 Not Available [facility] [address], [place], [address], 11/30/2022 15:52:30 12/01/19 23 11/30/2022 urina lysis panel , auto Unknown Analyte Negati ve Not Available [facility] [address], [place], [address], 11/30/2022 15:52:30 12/01/19 23 11/30/2022 urina lysis panel , auto Unknown Analyte Negati ve Not Available [facility] [address], [place], [address], 11/30/2022 15:52:30 12/01/19 23 11/30/2022 urina lysis panel , auto Unknown Analyte Negati ve Not Available [facility] [address], [place], [address], 11/30/2022 15:52:30 12/01/19 23 11/30/2022 urina lysis panel , auto Unknown Analyte Normal Not Available [facility] [address], [place], [address], 11/30/2022 15:52:30 12/01/19 23 11/30/2022 urina lysis panel , auto Unknown Analyte Negati ve Not Available [facility] [address], [place], [address], 11/30/2022 15:52:30 12/01/19 23 11/30/2022 urina lysis panel , auto Unknown Analyte Normal Not Available [facility] [address] [facility] [address], [place], [address], 11/30/2022 15:52:30 12/01/19 23 11/30/2022 urina lysis panel , auto Unknown Analyte Negati ve Not Available [facility] [address], [place], [address], 11/30/2022 15:52:30 12/01/19 23 11/30/2022 urina lysis panel , auto Unknown Analyte Negati ve Not Available [facility] [address], [place], [address], 11/30/2022 15:52:30 12/20/19 23 12/18/2022 fluor oscop y (PROC ) No observ ation record ed. [address] [facility], [place], [address], 12/21/2022 21:32:21 Result Notes None recorded. Problems No Known Problems Procedures Surgical History None recorded. Imaging Results Imaging Date Name Status LastModified by Organization Details LastModified Time 12/18/2022 fluoroscopy (PROC) completed [address] [facility], [place], [address], 12/21/2022 21:32:21 Procedure Notes None recorded. Medical Equipment None Reported. Allergies Allergen ID Allergen Name Allergen Category Reaction Reaction Severity Criticality Documentation Date Start Date Code Code System Note Provider Name and Address Organization Details Recorded Time 631246 Substance with sulfonami de structure and antibacte rial mechanism of action (substanc e) medicatio n Not available Not available Not available 11/30/2022 23516 [facility] Ann-Marie Kim [facility] 15:51:45 193607 Non-stero idal anti-infl ammatory agent (product) medicatio n Not available Not available Not available 11/30/2022 47739 005 [facility] Julio [facility] 15:51:55 215526 Latex (substanc e) environme nt,medica tion Not available Not available Not available 11/30/2022 71387 8007 [facility] 15:52:01 Medications Name Sig Start Date Stop [...] Address Organization Details Last Updated DateTime 11/30/2022 01951.82 g 22.9 kg/m2 175.26 cm Ann-Marie Kim [facility] 11/30/2022 15:51:26 Social History None recorded. Functional Status None recorded. Mental Status None recorded. Family History Nothing Reported. Medical History No medical history recorded. Gynecological HistoryNo gynecological history recorded. Obstetrics History GPAL:G 0 P 0 0 0 0 Past Encounters Encounter ID Performer Location Encounter Start Date Encounter Closed Date Diagnosis/Indication Diagnosis SNOMED-CT Code Diagnosis ICD10 Code Diagnosis Note [id number] MILDRED VIDES MD [facility] [address] [place] [address] 11/30/2022 15:19:19 11/30/2022 16:50:57 Urolithiasis 82587822 N20.9 arrange for above Health Concerns Section Related Observation LastModified by Organization Detai ls LastModified Time None Recorded Concern Status LastModified by Organization Details LastModified Time None Recorded Advance Directives Directive None Recorded Payers Insurance Date Sequence Insurance Name Policy Number Policy Interiano Covered Member ID Interiano Member ID Guarantor Name 03/16/2023 1 [facility] [place] OF [place] BLUE ACCESS (PPO) [id number] Maia Sawyer [id number] Maia Sawyer 11/30/2022 1 [facility] [id number] Maia Sawyer [id number] Maia Fermín Notes Date Note Type Note Provider Name and Address Organization Details Recorded Time 11/30/2022 text/html Here for initial visit for urolithiasis. She passed a stone years ago but now has had right sided back pain and urgency for several weeks. She brought ct scan disc from [facility] for review. No hydro and two tiny 1mm stones in right kidney. The pain is sign. at times. We discussed cysto and right retrograde to assess for missed stone on ct scan. MILDRED VIDES MD [address] [place], [address], [facility] 12/01/2022 23:20:23 OBGyn Episode No OBEpisode recorded.
--- OUTSIDE RECORDS SUMMARY | 2025-02-09 12:24 | XMS_ITS | Data Portability ---
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 The patient also complains [...] __ __ __ __ __ _ JOE: [id number] I have reviewed patient's JOE report prior to prescribing Schedule II, III, and IV medications that require review by law. [email or web address] Not available 12/17/2022 12:55:12 01/22/2023 01/22/2023 The [...] __ __ __ __ __ _ JOE: [id number] I have reviewed patient's JOE report prior to prescribing Schedule II, III, and IV medications that require review by law. Not available 01/22/2023 13:01:57 Plan of Treatment Reminders Order Date Submit Date Provider Last Modified By Organization Details Last Modified Time Details Appointments None recorded. Lab None recorded. Referral None recorded. Procedures medial branch block, thoracic (PROC) - 23159, 85283 bilateral T9-T11 2022 023 [email or web address] Not available 3 15:54:30 injection , trigger point (PROC) - 21123, 48967 bilateral thoracic region including longissim us thoracis, thoracis spinalis and rhomboid muscles 2022 023 [email or web address] Not available 3 15:03:18 Surgeries None recorded. Imaging XR, [facility] 3 13:45:07 Medication Orders tizanidin e 4 mg tablet 2022 023 [facility], [address] [place] [address], [id number], 3 22:28:06 Patient TargetsNo targets recorded. Patient InstructionsNo instructions recorded. Reason for Referral None Reported. Problems Name Problem SNOMED Code Status Onset Date Resolution Date Notes Provider Name and Address Organization Details Recorded Time Neck pain 02327713 Active 2022 Not Available [facility] 3 14:05:10 Spinal stenosis in cervical region 58123258 Active 2022 Not Available [facility] 3 14:05:10 Lumbar spondylosi s 648588488 Active 2022 Not Available [facility] 3 14:05:09 Thoracic spondylosi s 919280792 Active 2022 Not Available [facility] 3 14:05:10 Myofascial pain 704946789 Active 2022 Not Available [facility] 3 14:05:09 Dextroscol iosis 8397083191885 01 Active 2022 Not Available [facility] 3 14:05:10 Pain in pelvis 90722562 Active 2022 Not Available [facility] 3 14:05:09 History of endometrio sis 9064917582165 4107 Active 2022 Not Available [facility] 3 14:05:09 Pain in thoracic spine 872599835 Active 2022 Not Available [facility] 3 14:05:09 Problem Notes None recorded. Procedures Surgical History Date Name Laterality Status Provider Name and Address Organization Details Recorded Time tonsilectom y/adenoids completed Maria Eugenia WANG [facility] [place] 12/11/2022 11:34:45 Imaging Results None recorded. Procedure Notes None recorded. Medical Equipment None Reported. Allergies Allergen ID Allergen Name Allergen Category Reaction Reaction Severity Criticality Documentation Date Start Date Code Code System Note Provider Name and Address Organization Details Recorded Time 15023 latex environme nt,medica tion Not available Not available Not available 12/11/2022 10273 91 RxNorm [facility] [place] 3 11:33:33 51036 Substance with sulfonami de structure and antibacte rial mechanism of action (substanc e) medicatio n Not available Not available Not available 12/11/2022 59566 8003 SNOMED [facility] [place] 3 11:33:38 Medications Name Sig Start Date [...] ONE [facility] each DAY 01/22 [...] Address Organization Details Last Updated DateTime 3 39473.3 7 g 97.1 [degF] 99 % 99 % 67 /min 126 mm[Hg] 73 mm[Hg] Michelle Rangel [facility] & [place] 3 11:41:58 Date Recorded Body height Body mass index (BMI) Body weight Body temperature Oxygen saturation Oxygen saturation in Arterial blood by Pulse oximetry Heart rate Respiratory rate Systolic blood pressure Diastolic blood pressure Provider Name and Address Organization Details Last Updated DateTime 3 175.26 cm 24.9 kg/m2 32665.6 7 g 97.1 [degF] 100 % 100 % 80 /min 20 /min 113 mm[Hg] 72 mm[Hg] Ignacia Faust [facility] & [place] 3 11:52:15 Social History None recorded. Functional [...] Thyroid Problems N Anemia N Heart Attack (MD) N Ulcers N Diabetes N Bleeding Disorder N Tuberculosis N AIDS/HIV N Asthma N Substance Abuse N Hepatitis N Heart Disease N Hypertension N Osteoporosis N Gynecological HistoryNo gynecological history recorded. Obstetrics History GPAL:G 0 P 0 0 0 0 Past Encounters Encounter ID Performer Location Encounter Start Date Encounter Closed Date Diagnosis/Indication Diagnosis SNOMED-CT Code Diagnosis ICD10 Code Diagnosis Note [id number] Robinson Springer MD [facility] [address] [facility] [place] [address] 12/17/2022 11:23:48 12/17/2022 12:06:58 Neck pain 72081325 M54.2 Spinal venita nosis in cervical region 46684032 M99.51 Lumbar spondylosis 47395 0009 M47.816 Myofascial pain 95808577 9 M79.10 Thoracic spondylosis 387 118660 M47.814 Dextroscoliosis 88927058 01 43097 M41.9 Pain in pelvis 49009651 R10.2 History of endometriosis 9254302956 1872243 Z87.42 Pain in th oracic spine 296218248 M54.6 Spinal enthesopathy 1031 7009 M46.04 [id number] SAIDA DEL REAL PA-C [facility] [address] [facility] [address] [place] [address] 01/22/2023 11:36:10 01/22/2023 12:03:48 Spinal enthesopathy 70869838 M46.04 Spinal venita nosis in cervical region 36444515 M99.51 Thoracic spondylosis 387 934761 M47.814 Myofascial pain 35893443 9 M79.10 Neck pain 02469989 M54.2 Lumbar spondylosis 84302 0009 M47.816 Dextroscoliosis 23567826 01 60427 M41.9 Pain in pelvis 72520946 R10.2 History of endometriosis 3430392248 7262163 Z87.42 Pain in th oracic spine 097273496 M54.6 Health Concerns Section Related Observation LastModified by Organization Detai ls LastModified Time None Recorded Concern Status LastModified by Organization Details LastModified Time None Recorded Advance Directives Directive None Recorded Payers Insurance Date Sequence Insurance Name Policy Number Policy Interiano Covered Member ID Interiano Member ID Guarantor Name 04/15/2024 1 [place] [id number] Maia Kovacs [id number] Maia [place] 11/25/2021 1 [facility] [id number] Nolan Kovacs [id number] Maia Kovacs 12/17/2022 1 [facility] [id number] Nolan Kovacs [id number] Maia [place] Notes Date Note Type Note Provider Name [...] Surgery: none Imaging/Studies: none Robinson Springer MD [address] [facility], [place], [address], [facility] & [place] 12/17/2022 22:28:10 3 text/html Ms. Kovacs was [...] relationships, and walking.Current Pain Medications: Tizanidine 4mg V83Bmlox Pain Medications: Reports being on intermittent opioids hydrocodone/a Pap and gabapentin 100 mgNSAIDS/OTC: mildly helpfulNon-interventiona l Tx: TENS unitPhysical Therapy: at home exercises/stretchesInter ventional Tx: Reports Thoracic rhizotomy in 2008, LRFA March 2020Surgery: noneImaging/Studies: none SAIDA DEL REAL PA-C [address], [place], [address], [facility] & [place] 01/22/2023 13:03:04 OBGyn Episode No OBEpisode recorded.
== END 2025-02-07 23:59 | disposition home or self-care (01) ==
LOC: LAB.DROPOF 02-09 12:23
PROVIDERS: PCP Nurse Practitioner Family; Visit Provider Nurse Practitioner
DX: J02.9 Acute pharyngitis, unspecified (principal)
CPT/HCPCS: 86318

== ENCOUNTER 2025-02-13 17:08 | Emergency (ER) | payer OTHER, SELFPAY ==
--- OUTSIDE RECORDS SUMMARY | 2025-02-13 17:18 | XMS_ITS | Data Portability ---
Author Organization [place] - Dolores BRIAN Hobbs [place] [facility] Address [address] [place] [address] Assessment No assessment recorded. Plan of Treatment Reminders Order Date Submit Date Provider Last Modified By Organization Details Last Modified Time Details Appointments None recorded. Lab urinalysis panel, auto [address] [facility], [address] [facility], [address], 17:16:25 Referral None recorded. Procedures None recorded. Surgeries None recorded. Imaging None recorded. Medication Orders hydrocodone 7.5 mg-acetamin ophen 325 mg tablet [address] [facility], [address] [place] [address] [facility] [address], [place], [id number], 23:16:21 Patient TargetsNo targets recorded. Patient InstructionsNo instructions recorded. Reason for Referral None Reported. Results Created Date Observation Date Name Description Value Unit Range Abnormal Flag Note LastModifiedBy Organization Detail LastModifiedTime 12/01/1911/30/2022 urina lysis panel , auto Unknown Analyte Clean Catch Not Available [facility] [address], [address], 11/30/2022 15:52:30 12/01/19 23 11/30/2022 urina lysis panel , auto Unknown Analyte Yellow Not Available [facility] [address], [place], [address], 11/30/2022 15:52:30 12/01/19 23 11/30/2022 urina lysis panel , auto Unknown Analyte Clear Not Available [facility] [address], [place], [address], 11/30/2022 15:52:30 12/01/19 23 11/30/2022 urina lysis panel , auto Unknown Analyte 1.015 Not Available [facility] [address], [place], [address], 11/30/2022 15:52:30 12/01/19 23 11/30/2022 urina lysis panel , auto Unknown Analyte 7.0 Not Available [facility] [address], [place], [address], 11/30/2022 15:52:30 12/01/19 23 11/30/2022 urina lysis panel , auto Unknown Analyte Negati ve Not Available [facility] [address], [place], [address], 11/30/2022 15:52:30 12/01/19 23 11/30/2022 urina lysis panel , auto Unknown Analyte Negati ve Not Available [facility] [address], [place], [address], 11/30/2022 15:52:30 12/01/19 23 11/30/2022 urina lysis panel , auto Unknown Analyte Negati ve Not Available [facility] [address], [place], [address], 11/30/2022 15:52:30 12/01/19 23 11/30/2022 urina lysis panel , auto Unknown Analyte Normal Not Available [facility] [address], [place], [address], 11/30/2022 15:52:30 12/01/19 23 11/30/2022 urina lysis panel , auto Unknown Analyte Negati ve Not Available [facility] [address], [place], [address], 11/30/2022 15:52:30 12/01/19 23 11/30/2022 urina lysis panel , auto Unknown Analyte Normal Not Available [facility] [address] [facility] [address], [place], [address], 11/30/2022 15:52:30 12/01/19 23 11/30/2022 urina lysis panel , auto Unknown Analyte Negati ve Not Available [facility] [address], [place], [address], 11/30/2022 15:52:30 12/01/19 23 11/30/2022 urina lysis panel , auto Unknown Analyte Negati ve Not Available [facility] [address], [place], [address], 11/30/2022 15:52:30 12/20/19 23 12/18/2022 fluor oscop y (PROC ) No observ ation record ed. [address] [facility], [place], [address], 12/21/2022 21:32:21 Result Notes None recorded. Problems No Known Problems Procedures Surgical History None recorded. Imaging Results Imaging Date Name Status LastModified by Organization Details LastModified Time 12/18/2022 fluoroscopy (PROC) completed [address] [facility], [place], [address], 12/21/2022 21:32:21 Procedure Notes None recorded. Medical Equipment None Reported. Allergies Allergen ID Allergen Name Allergen Category Reaction Reaction Severity Criticality Documentation Date Start Date Code Code System Note Provider Name and Address Organization Details Recorded Time [id number] Substance with sulfonami de structure and antibacte rial mechanism of action (substanc e) medicatio n Not available Not available Not available 11/30/2022 [address]18 [id number] Ann-Marie Kim [facility] 15:51:45 582681 Non-stero idal anti-infl ammatory agent (product) medicatio n Not available Not available Not available 11/30/2022 18454 005 [facility]io [facility] 15:51:55 199703 Latex (substanc e) environme nt,medica tion Not available Not available Not available 11/30/2022 17431 8007 [facility] 15:52:01 Medications Name Sig Start Date Stop [...] Address Organization Details Last Updated DateTime 11/30/2022 46544.82 g 22.9 kg/m2 175.26 cm Ann-Marie Kim [facility] 11/30/2022 15:51:26 Social History None recorded. Functional Status None recorded. Mental Status None recorded. Family History Nothing Reported. Medical History No medical history recorded. Gynecological HistoryNo gynecological history recorded. Obstetrics History GPAL:G 0 P 0 0 0 0 Past Encounters Encounter ID Performer Location Encounter Start Date Encounter Closed Date Diagnosis/Indication Diagnosis SNOMED-CT Code Diagnosis ICD10 Code Diagnosis Note [id number] MIDLRED VIDES MD [facility] [address] [place] [address] 11/30/2022 15:19:19 11/30/2022 16:50:57 Urolithiasis 79313107 N20.9 arrange for above Health Concerns Section Related Observation LastModified by Organization Detai ls LastModified Time None Recorded Concern Status LastModified by Organization Details LastModified Time None Recorded Advance Directives Directive None Recorded Payers Insurance Date Sequence Insurance Name Policy Number Policy Interiano Covered Member ID Interiano Member ID Guarantor Name 03/16/2023 1 [facility] [place] [id number] Maia [place]outh [id number] Maia [place] 11/30/2022 1 [facility] [id number] Maia [place]outh [id number] Maia Fermín Notes Date Note Type Note Provider Name and Address Organization Details Recorded Time 11/30/2022 text/html Here for initial visit for urolithiasis. She passed a stone years ago but now has had right sided back pain and urgency for several weeks. She brought ct scan disc from [facility] for review. No hydro and two tiny 1mm stones in right kidney. The pain is sign. at times. We discussed cysto and right retrograde to assess for missed stone on ct scan. MILDRED VIDES MD [address] [place], [address], [facility] 12/01/2022 23:20:23 OBGyn Episode No OBEpisode recorded.
[2025-02-13 17:20] VITALS: BP 129/71; PULSE 78; RESP 19; TEMP 36.9; O2SAT 100; BMI 22.8
--- NOTE | 2025-02-13 17:22 | CT_ITS ---
PROCEDURE INFORMATION: Exam: CT Abdomen And Pelvis With Contrast Exam date and time: 02/13/2025 6:13 PM Age: 34 years old Clinical indication: Other: Right-sided flank pain, hematuria HX of stones TECHNIQUE: Imaging protocol: Computed tomography of the abdomen and pelvis with contrast. Radiation optimization: All CT scans at this facility use at least one of these dose optimization techniques: automated exposure control; mA and/or kV adjustment per patient size (includes targeted exams where dose is matched to clinical indication); or iterative reconstruction. Contrast material: ISOVUE; Contrast volume: 75 ml; Contrast route: IV; COMPARISON: CT ABDOMEN PELVIS W CON 12/26/2024 5:59 PM FINDINGS: Lungs: Lung bases are clear. Liver: Hepatomegaly, measuring 20.0 cm in craniocaudal axis. Liver is otherwise unremarkable as visualized. Gallbladder and biliary ducts: Gallbladder is surgically absent. Biliary ectasia, within normal limits for status post cholecystectomy. Pancreas: Unremarkable. Spleen: No splenomegaly. Adrenal glands: Unremarkable. Kidneys and ureters: Normal symmetric renal nephrograms. No renal or ureteral stones. No hydronephrosis. Stomach and bowel: Unremarkable. Appendix: No evidence of appendicitis. Intraperitoneal space: No free fluid. No pneumoperitoneum. Vasculature: Phleboliths noted in the pelvis. Lymph nodes: Unremarkable. Urinary bladder: Unremarkable. Reproductive: Unremarkable as visualized. Bones/joints: No evidence of acute osseous abnormality. Soft tissues: Unremarkable. IMPRESSION: 1. No acute findings in the abdomen or pelvis. No evidence of kidney stones. 2. Hepatomegaly, not significantly changed from 12/26/2024 CT.
--- NOTE | 2025-02-13 17:25 | [facility].EDGENADL ---
Discharge Plan Disposition Patient Disposition: Home, Self-Care Condition: Fair Prescriptions Prescriptions: No Action tizanidine 4 mg tablet 4 mg PO gabapentin 300 mg capsule 300 mg PO Patient Comments: TAKE ONE CAPSULE BY MOUTH EVERY 8 HOURS MAY CAUSE DROWSINESS cyanocobalamin (vitamin B-12) 1,000 mcg/mL solution 1,000 mcg SQ Patient Comments: INJECT 1 ML DIRECTED EVERY 28 DAYS pantoprazole 40 mg tablet,delayed release (DR/EC) 40 mg PO ONCE Patient Comments: TAKE ONE TABLET BY MOUTH TWICE DAILY famotidine [Pepcid] 20 mg Tablet 20 mg PO DAILY 28-800 mg-mcg Tablet 1 tab PO DAILY Referrals Follow up/Referrals: Olivia Patel [Primary Care Provider] - See instructions Activity Restrictions/Add. Instructions Additional Instructions/Restrictions: Stay well-hydrated. May take Tylenol Motrin as needed for pain. If refractory to this and your home medications, please return to the emergency department. Return if you have any fevers or worsening of your symptoms. Please follow up with your primary care provider in 2-3 days. Please return to ED if your symptoms worsen, change in location, change in severity, new symptoms develop or if you become concerned for your health. Clinical Impressions Clinical Impression: Acute flank pain Print Language Print Language: Tuvaluan Discharge ED Provider: Shubham Pedroza Adult HPI <MAURIZIO Devi - Last Filed: 02/13/25 19:00> General Chief complaint: PAIN Stated complaint: Possible Kidney Stones Time Seen by Provider: 02/13/25 17:12 Mode of Arrival: Ambulatory Source of Information: Patient Limitations: No Limitations History of Present Illness HPI narrative: 34-year-old female presents emergency department with a 2 to 3-day history of right-sided flank pain/lower abdominal pain, nausea vomiting, noticed some blood in my urine , yesterday, believes she may have a UTI versus kidney stone, does have history of UTIs as well as kidney stones, she states it feels like her previous kidney stone . 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 Onset (ago): day(s) Related Data Home Medications ?Medication ?Instructions ?Recorded ?Confirmed famotidine 20 mg tablet (Pepcid) 20 mg PO DAILY 05/24/24 02/07/25 vit no.133-ferrous 1 tab PO DAILY 05/24/24 02/07/25 fumarate 28 mg-folic acid 800 mcg tablet () cyanocobalamin (vitamin B-12) 1,000 mcg SQ 02/07/25 02/07/25 1,000 mcg/mL injection solution gabapentin 300 mg capsule 300 mg PO 02/07/25 02/07/25 pantoprazole 40 mg tablet,delayed 40 mg PO ONCE 02/07/25 02/07/25 release tizanidine 4 mg tablet 4 mg PO 02/07/25 02/07/25 Allergies Allergy/AdvReac Type Severity Reaction Status Date / Time celecoxib (From Celebrex) Allergy Severe Anaphylaxis Verified 02/07/25 11:03 latex (LATEX) Allergy Severe Anaphylaxis Verified 02/07/25 11:03 coconut Allergy Unknown Anaphylaxis Verified 02/07/25 11:03 Pertussis Vaccines Allergy Unknown Unknown Verified 02/07/25 11:03 (PERTUSSIS VACCINES) allergy reaction pineapple (PINEAPPLE) Allergy Unknown Unknown Verified 02/07/25 11:03 allergy reaction Sulfa (Sulfonamide Allergy Unknown Unknown Verified 02/07/25 11:03 Antibiotics) (SULFA allergy (SULFONAMIDE ANTIBIOTICS)) reaction dicyclomine (From Bentyl) AdvReac Verified 02/07/25 11:03 ketamine AdvReac Verified 02/07/25 11:03 [facility] <MAURIZIO Devi - Last Filed: 02/13/25 19:00> [facility] Disclaimer: The information contained in this section may have been updated after the patient was seen, as this information can be updated by other users. Medical History (Updated 02/13/25 @ 21:29 by Shubham Pedroza MD) Viral upper respiratory infection Liver disease Depression Anxiety History of anemia History of gastroesophageal reflux (GERD) Kidney stone Migraine Surgical History History of tonsillectomy History of cholecystectomy History of section Family History Grandfather Cancer Colon Cancer Mother Cancer Thyroid Cancer Sister Cancer Cervical Cancer Grandmother Cancer Maternal Grandmother-Cervical, Breast and Lung Cancer Social History Smoking Status: Never smoker second hand exposure: No alcohol intake: never current occupational status: employed Travel in the last 8 weeks?: None household members: other housing: house 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 current occupational exposures/hazards: No caffeine: Yes Have you lived/traveled outside [place] in past 30 days?: No Contact w/someone who lives/traveled outside [place] past 30 days?: No Exposure to someone with infectious disease in past 14 days?: No Do you have a fever (greater than 100.4 F or 38 C)?: No Have you tested positive for COVID-19?: No Exposed to someone with COVID-19 in past 14 days?: No Do you have a sore throat?: No Do you have a cough?: No Do you have any weakness?: No Do you have any diarrhea?: No Are you experiencing any unusual bleeding?: No Do you have any muscle aches/pain?: No Do you have any abdominal pain?: No Are you experiencing loss of taste or smell?: No Other Medical History Have you received the Flu Vaccine for this season: Yes Have you received the Pneumonia Vaccine: No <MAURIZIO Devi - Last Filed: 02/13/25 19:00> ROS Obtained: Yes All systems reviewed & no additional complaints except as documented Physical Exam <MAURIZIO Devi - Last Filed: 02/13/25 19:00> General General appearance: alert and in no apparent distress Head Head exam: atraumatic and normocephalic Eye Eye exam: Present PERRL and EOMI ENT ENT exam: Present mucous membranes moist Neck Neck exam: Present normal inspection Chest Chest inspection: Present normal inspection and symmetric chest wall rise Respiratory Respiratory exam: Present normal lung sounds bilaterally; Absent respiratory distress Cardiovascular Cardiovascular exam: Present regular rate and normal rhythm Abdominal Exam Abdominal exam: Present soft and tenderness Abdominal tenderness: Present RLQ, suprapubic and mild Comment: Mild suprapubic and lower quadrant tenderness to palpation most notable on the right side Extremities Exam Extremities exam: Present normal inspection Back Exam Back exam: Present CVA tenderness (R) Comment: Mild to moderate CVA tenderness on the right side, negative CVA tenderness on the left Neurological Exam Neurological exam: Present alert and oriented X3 Psychiatric Psychiatric exam: Present normal affect Skin Skin exam: Present warm and dry Medical Decision Making <MAURIZIO Devi - Last Filed: 02/13/25 19:00> Medical Records Medical records reviewed: Yes I reviewed the patient's medical records. Screening: Per USPSTF and CDC recommendations, given the prevalence of disease in our region, it is our hospital?s policy to screen for HIV and viral Hepatitis for all patients aged 18 and over and those with ongoing risk factors. Federico Inquiry Pt receiving controlled substance: Yes Federico was queried for this patient: No Reason not queried -: Emergent pt cond-no time Risks and benefits of using a controlled substance: were discussed with pt by me Vital Signs: 02/13/25 17:20 02/13/25 17:30 02/13/25 21:50 Temperature 98.5 F 98.2 F Temperature Source Oral Oral Pulse Rate 75 66 Pulse Rate [Left Radial] 78 Respiratory Rate 19 18 Blood Pressure 133/78 130/84 Blood Pressure [Right Arm] 129/71 Blood Pressure Mean [Right Arm] 90 02 Sat by Pulse Oximetry 100 96 Oxygen Delivery Method Room Air Room Air Lab Data Lab Results 02/13/25 17:12: Urine Color Yellow, Urine Appearance Clear, Urine pH 6.0, Ur Specific Bronson 1.020, Urine Protein Negative, Urine Glucose (UA) Negative, Urine Ketones Negative, Urine Blood Negative, Urine Nitrate Negative, Urine Bilirubin Negative, Urine Urobilinogen 0.2, Ur Leukocyte Esterase Negative, Urine RBC Occasional, Urine WBC Occasional, Ur Squamous Epith Cells 3-5, Urine Mucus 1+, Urine HCG, Qual Negative 02/13/25 17:44: WBC 7.6, RBC 4.31, Hgb 12.4, Hct 37.9, MCV 87.9, MCH 28.8, MCHC 32.7, RDW 13.4, Plt Count 283, MPV 9.1, Neut % (Auto) 70.8, Lymph % (Auto) 18.8, [place] % (Auto) 7.2, Eos % (Auto) 2.5, Baso % (Auto) 0.4, Neut # (Auto) 5.4, Lymph # (Auto) 1.4, [place] # (Auto) 0.6, Eos # (Auto) 0.2, Baso # (Auto) 0.0, Sodium 140, Potassium 3.8, Chloride 108 H, Carbon Dioxide 26, Anion Gap 9.8, BUN 7, Creatinine 0.80, Estimated Creat Clear 108, Estimated GFR 83, Est GFR ( Amer) 101, Glucose 91, Calcium 8.8, Total Bilirubin < 0.1 L, AST 29, ALT 15, Alkaline Phosphatase 118, Total Protein 7.3, Albumin 4.4, Globulin 2.9, Albumin/Globulin Ratio 1.5, Lipase 54 02/13/25 18:24: Lactate 0.6 L 02/13/25 17:44 02/13/25 17:44 Orders (Tests/Meds): ED MEDICATIONS Discontinued Medications Generic Name Dose Route Start Last Admin Trade Name Freq PRN Reason Stop Dose Admin Iopamidol 75 ml 02/13/25 18:14 02/13/25 18:15 Iopamidol-370 (76%);100ml Bottle IV 02/13/25 18:15 75 ml ONCE ONE Administration Morphine Sulfate 4 mg 02/13/25 17:24 02/13/25 17:54 Morphine 4mg/Ml Syringe IV 02/13/25 17:25 4 mg ONCE ONE Administration Morphine Sulfate 2 mg 02/13/25 18:59 02/13/25 19:14 Morphine 4mg/Ml Syringe IV 02/13/25 19:00 2 mg ONCE ONE Administration Ondansetron HCl 4 mg 02/13/25 18:50 02/13/25 18:56 Ondansetron 4mg/2ml Vial IV 02/13/25 18:51 4 mg ONCE ONE Administration Promethazine HCl 25 mg 02/13/25 20:49 02/13/25 20:58 Promethazine 25mg Tablet PO 02/13/25 20:50 25 mg ONCE ONE Administration Sodium Chloride 10 ml 02/13/25 18:14 02/13/25 18:16 Sodium Chloride 0.9% 10ml Syr (Rad Only) IV 02/13/25 18:15 10 ml ONCE ONE Administration ORDERS Category Date Time Status CT abdomen pelvis w con Stat Cat Scan 02/13/25 17:22 Completed Complete Blood Count Auto Diff Stat Lab 02/13/25 17:44 Completed Comprehensive Metabolic Panel Stat Lab 02/13/25 17:44 Completed Lactic Acid Stat Lab 02/13/25 18:24 Completed Lipase Stat Lab 02/13/25 17:44 Completed Urinalysis and Microscopic Stat Lab 02/13/25 17:12 Completed Urine , HCG Qual. Stat Lab 02/13/25 17:12 Completed Medical Decision Narrative: 34-year-old female presents the emergency department with right sided flank pain/lower abdominal pain and hematuria, differential diagnose include but not limited to acute UTI, acute pyelonephritis, ureterolithiasis, nephrolithiasis, other musculoskeletal pain, bowel obstruction, diverticulitis, ileitis, colitis, among others. Will obtain basic laboratory studies lipase lactate urinalysis, urine hCG qualitative, will give 4 mg IV morphine for pain, will obtain CT abdomen pelvis with contrast for further evaluation/characterization. CBC unremarkable hemoglobin hematocrit within normal limits hCG qualitative is negative Urinalysis is negative for hematuria, negative for nitrites, negative for leukocyte esterase. CMP unremarkable. Patient is complaining of nausea per nursing staff, will give 4 mg IV Zofran for nausea. There is no lactic acidosis. I was notified by nursing staff at approximately 6:58 PM the patient is still complaining of some pain, will give additional dose of 2 mg IV morphine for pain. Discussed patient's case with physician Dr. Pedroza he saw and examined the patient as well, at shift change, he will be assuming remainder the patient's care/workup. Disposition is pending CT abdomen pelvis with contrast radiology report. <Shubham Pedroza MD - Last Filed: 02/14/25 01:13> Vital Signs: 02/13/25 17:20 02/13/25 17:30 02/13/25 21:50 Temperature 98.5 F 98.2 F Temperature Source Oral Oral Pulse Rate 75 66 Pulse Rate [Left Radial] 78 Respiratory Rate 19 18 Blood Pressure 133/78 130/84 Blood Pressure [Right Arm] 129/71 Blood Pressure Mean [Right Arm] 90 02 Sat by Pulse Oximetry 100 96 Oxygen Delivery Method Room Air Room Air Lab Data Lab Results 02/13/25 17:12: Urine Color Yellow, Urine Appearance Clear, Urine pH 6.0, Ur Specific Bronson 1.020, Urine Protein Negative, Urine Glucose (UA) Negative, Urine Ketones Negative, Urine Blood Negative, Urine Nitrate Negative, Urine Bilirubin Negative, Urine Urobilinogen 0.2, Ur Leukocyte Esterase Negative, Urine RBC Occasional, Urine WBC Occasional, Ur Squamous Epith Cells 3-5, Urine Mucus 1+, Urine HCG, Qual Negative 02/13/25 17:44: WBC 7.6, RBC 4.31, Hgb 12.4, Hct 37.9, MCV 87.9, MCH 28.8, MCHC 32.7, RDW 13.4, Plt Count 283, MPV 9.1, Neut % (Auto) 70.8, Lymph % (Auto) 18.8, [place] % (Auto) 7.2, Eos % (Auto) 2.5, Baso % (Auto) 0.4, Neut # (Auto) 5.4, Lymph # (Auto) 1.4, [place] # (Auto) 0.6, Eos # (Auto) 0.2, Baso # (Auto) 0.0, Sodium 140, Potassium 3.8, Chloride 108 H, Carbon Dioxide 26, Anion Gap 9.8, BUN 7, Creatinine 0.80, Estimated Creat Clear 108, Estimated GFR 83, Est GFR ( Amer) 101, Glucose 91, Calcium 8.8, Total Bilirubin < 0.1 L, AST 29, ALT 15, Alkaline Phosphatase 118, Total Protein 7.3, Albumin 4.4, Globulin 2.9, Albumin/Globulin Ratio 1.5, Lipase 54 02/13/25 18:24: Lactate 0.6 L Orders (Tests/Meds): ED MEDICATIONS Discontinued Medications Generic Name Dose Route Start Last Admin Trade Name Freq PRN Reason Stop Dose Admin Iopamidol 75 ml 02/13/25 18:14 02/13/25 18:15 Iopamidol-370 (76%);100ml Bottle IV 02/13/25 18:15 75 ml ONCE ONE Administration Morphine Sulfate 4 mg 02/13/25 17:24 02/13/25 17:54 Morphine 4mg/Ml Syringe IV 02/13/25 17:25 4 mg ONCE ONE Administration Morphine Sulfate 2 mg 02/13/25 18:59 02/13/25 19:14 Morphine 4mg/Ml Syringe IV 02/13/25 19:00 2 mg ONCE ONE Administration Ondansetron HCl 4 mg 02/13/25 18:50 02/13/25 18:56 Ondansetron 4mg/2ml Vial IV 02/13/25 18:51 4 mg ONCE ONE Administration Promethazine HCl 25 mg 02/13/25 20:49 02/13/25 20:58 Promethazine 25mg Tablet PO 02/13/25 20:50 25 mg ONCE ONE Administration Sodium Chloride 10 ml 02/13/25 18:14 02/13/25 18:16 Sodium Chloride 0.9% 10ml Syr (Rad Only) IV 02/13/25 18:15 10 ml ONCE ONE Administration ORDERS Category Date Time Status CT abdomen pelvis w con Stat Cat Scan 02/13/25 17:22 Completed Complete Blood Count Auto Diff Stat Lab 02/13/25 17:44 Completed Comprehensive Metabolic Panel Stat Lab 02/13/25 17:44 Completed Lactic Acid Stat Lab 02/13/25 18:24 Completed Lipase Stat Lab 02/13/25 17:44 Completed Urinalysis and Microscopic Stat Lab 02/13/25 17:12 Completed Urine , HCG Qual. Stat Lab 02/13/25 17:12 Completed Medical Decision Narrative: 34-year-old female presents the emergency department with right sided flank pain/lower abdominal pain and hematuria, differential diagnose include but not limited to acute UTI, acute pyelonephritis, ureterolithiasis, nephrolithiasis, other musculoskeletal pain, bowel obstruction, diverticulitis, ileitis, colitis, among others. Will obtain basic laboratory studies lipase lactate urinalysis, urine hCG qualitative, will give 4 mg IV morphine for pain, will obtain CT abdomen pelvis with contrast for further evaluation/characterization. CBC unremarkable hemoglobin hematocrit within normal limits hCG qualitative is negative Urinalysis is negative for hematuria, negative for nitrites, negative for leukocyte esterase. CMP unremarkable. Patient is complaining of nausea per nursing staff, will give 4 mg IV Zofran for nausea. There is no lactic acidosis. I was notified by nursing staff at approximately 6:58 PM the patient is still complaining of some pain, will give additional dose of 2 mg IV morphine for pain. Discussed patient's case with physician Dr. Pedroza he saw and examined the patient as well, at shift change, he will be assuming remainder the patient's care/workup. Disposition is pending CT abdomen pelvis with contrast radiology report. I was consulted by the AMANDO, and we discussed the complexity of problems being addressed. I approved the treatment and management plan for this patient's care in the emergency department, thus performing a substantial portion of the medical decision making. Shubham Pedroza MD On reassessment, CT abdomen pelvis radiology report is unremarkable. No acute changes. Patient feeling much improved here tolerating oral intake. Strict return precautions are discussed all questions answered patient will be discharged. Suspect developing gastroenteritis. Strict return precautions are discussed should she develop fevers worsening pain or become concerned for her health. Critical Care <MAURIZIO Devi - Last Filed: 02/13/25 19:00> Critical Care Time Critical Care Time: No
[2025-02-13 17:30] VITALS: BP 133/78; PULSE 75; O2SAT 96
[2025-02-13 17:51] LABS: Basophils % 0.4 % (0.1-2.0); Eosinophils # 0.2 Kmm3 (0.0-0.4); Eosinophils % 2.5 % (0.1-12.0); Hematocrit 37.9 % (37.0-47.0); Hemoglobin 12.4 g/dL (12.2-16.2); Immature Granulocytes # 0.02 10^3uL; Immature Granulocytes % 0.3 %; Lymphocytes # 1.4 K/mm3 (0.7-4.5); Lymphocytes % 18.8 % (10-50); Mean Corpuscular HGB Conc 32.7 g/dL (31.8-35.4); Mean Corpuscular Hemoglobin 28.8 pg (27.0-31.2); Mean Corpuscular Volume 87.9 fl (81-99); Mean Platelet Volume 9.1 fl (7.4-10.4); Monocytes # 0.6 K/mm3 (0.1-1.0); Monocytes % 7.2 % (1.7-9.3); Neutrophils # 5.4 K/mm3 (1.8-7.8); Neutrophils % 70.8 % (37.0-80.0); Nucleated Red Blood Cells # 0 10^3/uL; Nucleated Red Blood Cells % 0 %; Platelet Count 283 K/mm3 (142-424); Red Blood Count 4.31 M/mm3 (4.20-5.40); Red Cell Distribution Width 13.4 % (11.5-17.5); Red Cell Distribution Width-SD 43.2 fL; White Blood Count 7.6 K/mm3 (4.8-10.8)
[2025-02-13] MEDS: MORPHINE 4MG/ML SYRINGE 4 MG IV (17:54)
[2025-02-13 17:59] LABS: Microscopic, Urine URINE MICROSCOPIC (MICROSCOPIC)
[2025-02-13 18:00] LABS: Albumin Level 4.4 g/dl (3.5-5.0); Chloride 108 mmol/L (98-107); Potassium 3.8 mmoL/L (3.5-5.1); Sodium 140 mmol/L (136-145)
[2025-02-13 18:00] LABS: Appearance,Urine CLEAR (Clear); Bilirubin,Urine Negative (Negative); Blood, Urine Negative (Negative); Color,Urine YELLOW (Yellow); Glucose,Urine (UA) Negative (Negative); Ketones,Urine Negative (Negative); Leukocyte Esterase,Urine Negative (Negative); Nitrate,Urine Negative (Negative); Protein,Urine Negative (Negative); Urobilinogen,Urine 0.2 EU/dl (0.2)
[2025-02-13 18:02] LABS: Urine Pregnancy, HCG Qual. Negative (Negative)
[2025-02-13 18:03] LABS: Alanine Aminotransferase 15 U/L (12-78); Albumin/Globulin Ratio 1.5 (1.1-1.8); Alkaline Phosphatase 118 U/L (38-126); Anion Gap 9.8 mEq/L (5-15); Aspartate Amino Transferase 29 U/L (14-36); Blood Urea Nitrogen 7 mg/dl (7-17); Carbon Dioxide 26 mmol/L (22.0-30.0); Creatinine Clearance Estimated 108 mL/min (50-200); Estimated Glomerular Filt Rate 83 ml/min (>60); GFR (African American) 101 ML/MIN (>60); Globulin 2.9 g/dL (1.3-3.2); Lipase 54 U/L (23-300); Total Protein,Serum 7.3 g/dl (6.3-8.2)
[2025-02-13 18:04] LABS: Calcium 8.8 mg/dl (8.4-10.2); Glucose 91 mg/dl (74-100)
[2025-02-13] MEDS: IOPAMIDOL-370 (76%);100ML BOTTLE 75 ML IV (18:15)
[2025-02-13 18:16] LABS: Bilirubin,Total < 0.1 mg/dl (0.2-1.3)
[2025-02-13] MEDS: SODIUM CHLORIDE 0.9% 10ML SYR (RAD ONLY) 10 ML IV (18:16)
[2025-02-13 18:45] LABS: Lactic Acid 0.6 mmol/L (0.7-2.1)
[2025-02-13 18:49] LABS: Mucus,Urine 1+ /lpf; RBC,Urine Occasional #/hpf (0-3); WBC,Urine Occasional #/hpf (0-3)
[2025-02-13] MEDS: ONDANSETRON 4MG/2ML VIAL 4 MG IV (18:56)
[2025-02-13] MEDS: MORPHINE 4MG/ML SYRINGE 2 MG IV (19:14)
[2025-02-13] MEDS: PROMETHAZINE 25MG TABLET 25 MG PO (20:58)
[2025-02-13 21:50] VITALS: BP 130/84; PULSE 66; RESP 18; TEMP 36.8; O2SAT 99
== END 2025-02-13 21:51 | disposition home or self-care (01) ==
PROVIDERS: Physician Assistant; Emergency Provider Emergency Medicine; PCP Family Medicine
DX: R10.31 Right lower quadrant pain (principal); R11.2 Nausea with vomiting, unspecified
CPT/HCPCS: 74177; 80053; 81001; 81025; 83605; 83690; 85025; 96374; 96375; 96376; 99285; J2270; J2405; Q9967

== ENCOUNTER 2025-02-23 15:15 | Emergency (ER) | payer OTHER, SELFPAY ==
--- OUTSIDE RECORDS SUMMARY | 2025-02-19 03:19 | XMS_ITS | Continuity of Care Document ---
Author Organization [facility] Phone Care Team Providers Care [employer]ver [employer] Name Role Phone ANA ROSA FRANCOIS Admitting Unavailable MATTHEW RAMSEY Primary Care ANA ROSA FRANCOIS Primary Attending Unavailable ANA ROSA FRANCOIS Unavailable Unavailable ALLERGIES AND ADVERSE REACTIONS ALLERGIES AND ADVERSE REACTIONS Code System Allergy Substance Adverse Reaction Date Reaction (Severity) Comment Status Reported By Updated [place] [id number] SNOMED CT Sulfa Antibiotics Adverse reaction to substance Not Specified active [id number] on February 16, 2025 4:39:59 PM UTC 6915 RXNorm Reglan Adverse reaction to substance Not Specified active [id number] on February 16, 2025 4:39:59 PM UTC Latex, Natural Rubber (Free Text Allergy) Adverse reaction to substance Not Specified active [id number] on February 16, 2025 4:39:59 PM UTC [id number] SNOMED CT NSAIDs Adverse reaction to substance Not Specified active [id number] on February 16, 2025 4:39:59 PM UTC 710500 RXNorm Celebrex Adverse reaction to substance Not Specified active [id number] on February 16, 2025 4:39:59 PM UTC RESULTS Patient: ANDRIA SIGALA Date of : [birth year] LABORATORY RESULTS ORDER 100: UA AND MICRO/CULT IF INDICATED (LOINC: 01734-8) ORDER DATE: February 16, 2025 4:33:00 PM UTC Specimen Source: URINE Specimen Type: Urine specime n PERFORMING LAB: [address] [id number] Result Comment: Final Result Date: February 16, 2025 4:59:00 PM UTC (TECH: HC) LOINC TEST FLAG RESULT REFERENCE RANGE UPDA MACK BY 5778-6 Color of Urine N yellow YELLOW January 262024 4:59:00 PM UTC (TECH: HC) 5767-9 Appearance of Urine N clear CLEAR February 16, 2025 4:59:00 PM UTC (TECH: HC) 5792-7 Glucose [Mass/volume] in Urine by Test strip N NORM NORMAL February 16, 2025 4:59:00 PM UTC (TECH: HC) 27142-7 Bilirubin.total [Mass/volume] in Urine by Automated test strip N NEGATIVE NEGATIVE February 16, 2025 4:59:00 PM UTC (TECH: HC) 5797-6 Ketones [Mass/volume] in Urine by Test strip N NEGATIVE NEGATIVE February 16, 2025 4:59:00 PM UTC (TECH: HC) 2965-2 Specific gravity of Urine N 1.015 1.005 - 1.035 February 16, 2025 4:59:00 PM UTC (TECH: HC) 52270-4 Erythrocytes [#/volume] in Urine by Automated test strip N NEGATIVE NEGATIVE February 16, 2025 4:59:00 PM UTC (TECH: HC) 47633-8 pH of Urine by Automated test strip N 6.00 5.0 - 7.5 February 16, 2025 4:59:00 PM UTC (TECH: HC) 05402-3 Protein [Presence] in Urine by Test strip N 30 (1+) mg/dL NEGATIVE February 16, 2025 4:59:00 PM UTC (TECH: HC) 90531-8 Urobilinogen [Mass/volume] in Urine by Automated test strip N NORM NORMAL February 16, 2025 4:59:00 PM UTC (TECH: HC) 21280-2 Nitrate [Presence] in Urine N NEGATIVE NEGATIVE February 16, 2025 4:59:00 PM UTC (TECH: HC) 15017-0 Leukocytes [#/volume] in Urine by Test strip N NEGATIVE NEGATIVE February 16, 2025 4:59:00 PM UTC (TECH: HC) 35576-9 Other elements in Urine sediment CONTAMINATED February 16, 2025 4:59:00 PM UTC (TECH: HC) 08359-8 Microscopic observation [Identifier] in Urine sediment by Light microscopy N YES February 16, 2025 4:59:00 PM UTC (TECH: HC) 25577-3 Erythrocytes [#/area] in Urine sediment by Microscopy high power field N NONE SEEN 0-3 February 16, 2025 4:59:00 PM UTC (TECH: HC) 5821-4 Leukocytes [#/area] in Urine sediment by Microscopy high power field N 1-5 NONE SEEN February 16, 2025 4:59:00 PM UTC (TECH: HC) 27228-5 Epithelial cells.squamous [#/area] in Urine sediment by Microscopy high power field 10-20 NONE SEEN February 16, 2025 4:59:00 PM UTC (TECH: HC) 5769-5 Bacteria [#/area] in Urine sediment by Microscopy high power field N NONE SEEN NONE SEEN February 16, 2025 4:59:00 PM UTC (TECH: HC) ORDER 200: URINE T EST (LOINC: 2106-) ORDER DATE: February 16, 2025 4:33:00 PM UTC Specimen Source: URINE Specimen Type: Urine specime n PERFORMING LAB: [address] [id number] Result Comment: Final Result Date: February 16, 2025 4:51:00 PM UTC (TECH: HC) LOINC TEST FLAG RESULT REFERENCE RANGE UPDA MACK BY 2106-09 Choriogonadotropin [Moles/volume] in Urine N NEGATIVE NEGATIVE February 16, 2025 4:51:00 PM UTC (TECH: TroopSwap) 08244-5 Internal control result N PASS PASS February 16, 2025 4:51:00 PM UTC (TECH: HC) LABORATORY NARRATIVE RESULTS Information is not available RADIOLOGY RESULTS Information is not available PATHOLOGY NARRATIVE RESULTS Information is not available MICROBIOLOGY RESULTS No Micro Labs/Results Exist for Patient BLOOD ADMIN RESULTS Information is not available MEDICATIONS HOME MEDICATIONS Status RXNORM NDC Medication Dose Route Frequency Dates Comments Reported By Updated By Active [id number] 9609 gabapentin 300 mg capsule 1.0 CAP ORAL DAILY Last Dose: [id number] on February 16, 2025 4:40:03 PM UTC DISCHARGE MEDICATIONS Status RXNORM NDC Medication Dose Route Frequency Dates Comments Physician Updated By No Discharge Medication Info rmation Available INPATIENT MEDICATIONS Status RXNORM NDC Medication Dose Route Frequency Rat e Quantity Dates Comments Physician Updated By No Inpatient Medication Info rmation Available SOCIAL HISTORY SOCIAL HISTORY SNOMED-CT Social History Element Description Effective Dates Offered Cessation Comment UpdatedBy [id number] Current Tobacco smoking status Never Smoked [id number] on February 16, 2025 4:40:48 PM UTC SOCIAL HISTORY - Gender Sex: Female SOCIAL HISTORY - Status : status i nformation is not available Intention in Next Year: intention information is not available SOCIAL HISTORY - Sexual Behavior Sexual Orientation Gender Identity SNOMED-CT Description SNO MED -CT Description Activity Level No of Partners Partner Type UpdatedBy Information is not available VITAL SIGNS PATIENT VITAL SIGNS This section displays the mo st recent value for each vital sign as of February 19, 2025 7:19:57 AM UTC Loinc Code Vital Sign Activity Date Result Updated By 8310-5 Body temperature February 16, 2025 4:30:00 PM UTC 98.1 [degF] [id number] on February 17, 2025 5:23:[place] [address]-9 Body weight Measured February 16 4:37:36 PM UTC 73.0 kg (161.0 lb) [id number] on February 16, 2025 4:37:36 PM UT 8462-4 Diastolic blood pressure February 16, 2025 5:21:05 PM UTC 68.0 mm[Hg] [id number] on February 17, 2025 5:23:46 PM UTC 8867-4 Heart rate February 16, 2025 5:21:05 PM UTC 88 /min [id number] on February 17, 2025 5:23:46 PM UTC 67542-7 Oxygen saturation in Arterial blood by Pulse oximetry February 16, 2025 5:21:05 PM UTC 97.0 % [id number] on February 17, 2025 5:23:46 PM UT 9279-1 Respiratory rate February 16, 2025 5:21:05 PM UTC 18 /min [id number] on February 17, 2025 5:23:46 PM UTC 8480-6 Systolic blood pressure February 16, 2025 5:21:05 PM UTC 124.0 mm[Hg] [id number] on February 17, 2025 5:23:46 PM [place] PEDIATRIC GROWTH CHART - VITAL SIGNS This section displays Head C ircumference Percentile, Weight for Length Percentile and BMI Percentile Loinc Code Pediatric Measure Age (Months) Result Updat ed By No Pediatric Growth Chart Pe rcentile Information Available. HEALTH CONCERNS Problems Concern Status Health Concern problem infor mation not available. Smoking Status Status Years Used Consumed packs p er day Health Concern smoking histo ry information not available. Family History Concern Status Health Concern family histor y information not available. ENCOUNTERS ENCOUNTER INFORMATION Reason for Visit BACK PAIN Admission February 16, 2025 4:20:00 PM [facility] [address] [place] [id number] Discharge February 16, 2025 5:23:00 PM [facility] DISC HARGED TO HOME OR SELF CARE ENCOUNTER DIAGNOSES Notes information is not sukhdev ilable. Code System Diagnosis Onset Date Diagnosis information is not available. ABSTRACT DIAGNOSES Code System Diagnosis Updated By R10.31 ICD10 RIGHT LOWER QUADRANT PAIN BY [id number] on February 19, 2025 7:19:28 AM [facility] M54.6 ICD10 PAIN IN THORACIC SPINE [id number] 30 on February 19, 2025 7:19:28 AM [facility] M54.50 ICD10 LOW BACK PAIN, UNSPECIFIED B [id number] on February 19, 2025 7:19:28 AM [facility] Z88.2 ICD10 ALLERGY STATUS TO SULFONAMID ES [id number] on February 19, 2025 7:19:28 AM [facility] Z88.6 ICD10 ALLERGY STATUS TO ANALGESIC AGENT [id number] on February 19, 2025 7:19:28 AM [facility] Z88.8 ICD10 ALLERGY STATUS T O OTHER DRUGS, MEDICAMENTS AND BIOLOGICAL SUBSTANCES [id number] on February 19, 2025 7:19:28 AM [facility] Z91.040 ICD10 LATEX ALLERGY STATUS [id number] on February 19, 2025 7:19:28 AM [facility] CARE TEAM Care [employer]ver [employer] Role ANA ROSA FRANCOIS Admitting MATTHEW RAMSEY Primary Care ANA ROSA FRANCOIS Primary Attending ANA ROSA FRANCOIS Referring 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 TEAM 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 Role on Team Status Start Date End Date Update d By ALESSANDRO Purvis MD, PHY Referring normal February 16, 2025 4:00:00 AM [facility] February 16, 2025 4:00:00 AM [facility] [id number] on February 16, 2025 5:23:21 PM [facility] ALESSANDRO Purvis MD Referring normal February 16, 2025 4:00:00 AM [facility] February 16, 2025 5:23:00 PM [facility] [id number] on February 16, 2025 5:23:21 PM [facility] ALESSANDRO CORONA Attending normal February 16, 2025 4:00:00 AM [place] February 16, 2025 4:00:00 AM [facility] [id number] on February 16, 2025 5:23:21 PM [facility] ALESSANDRO Purvis MD Attending normal February 16, 2025 4:00:00 AM [facility] February 16, 2025 5:23:00 PM [facility] [id number] on February 16, 2025 5:23:21 PM [facility] ALESSANDRO Purvis MD PHY Admitting normal February 16, 2025 4:00:00 AM [facility] February 16, 2025 4:00:00 AM [facility] [id number] on February 16, 2025 5:23:21 PM [facility] ALESSANDRO Purvis MD Admitting normal February 16, 2025 4:00:00 AM [facility] February 16, 2025 5:23:00 PM [facility] [id number] on February 16, 2025 5:23:21 PM [facility] ROXY CORONA PCP normal February 16, 2025 4:20:17 PM [facility] February 16, 2025 5:23:00 PM [facility] [id number] on February 16, 2025 5:23:21 PM [facility]
--- OUTSIDE RECORDS SUMMARY | 2025-02-19 07:51 | XMS_ITS | Continuity of Care Document ---
Author Organization [facility] Phone Care Team Providers Care Precipitation Equipment Tender Name Role Phone MATTHEW RAMSEY Primary Care MATTHEW RAMSEY Unavailable MATTHEW RAMSEY Admitting MATTHEW RAMSEY Primary Attending ALLERGIES AND ADVERSE REACTIONS ALLERGIES AND ADVERSE REACTIONS Code System Allergy Substance Adverse Reaction Date Reaction (Severity) Comment Status Reported By Updated By [id number] SNOMED CT Sulfa Antibiotics Adverse reaction to substance Not Specified active [id number] on February 16, 2025 4:39:59 PM [place] 6915 RXNorm Reglan Adverse reaction to substance Not Specified active [id number] on February 16, 2025 4:39:59 PM UTC Latex, Natural Rubber (Free Text Allergy) Adverse reaction to substance Not Specified active [id number] on February 16, 2025 4:39:59 [place] [id number] SNOMED CT NSAIDs Adverse reaction to substance Not Specified active [id number] on February 16, 2025 4:39:59 PM [place] 599145 RXNorm Celebrex Adverse reaction to substance Not Specified active [id number] on February 16, 2025 4:39:59 PM UT RESULTS Patient: ANDRIA SIGALA Date of : May [birth year] LABORATORY RESULTS Information is not available LABORATORY NARRATIVE RESULTS Information is not available RADIOLOGY RESULTS ORDER 100: CT ABD/PELVIS W/O (LOINC: 74895-7) ORDER DATE: February 15, 2025 6:11:00 PM [place] PERFORMING LAB: [place] [address] [address] [id number] Final Result Date: February 15 6:43:[address] [place] [address] Name: ROCIO AYERS Exam Date: 02/15/2025 : 1990 Age 34 years Gender: F Physician: MATTHEW RAMSEY Facility: [facility] Facility HSV: Outpatient Exam: CT ABD/PELVIS W/O CT ABDOMEN PELVIS WITHOUT IV CONTRAST, 02/15/2025 1:43 PM CDT EXAMINATION: CT ABDOMEN AND PELVIS WITHOUT CONTRAST CLINICAL INDICATION: Female, 34 years old. hematuria, flank pain TECHNIQUE: CT abdomen and pelvis was performed, without IV contrast, as per department protocol. Axial, sagittal and coronal reconstructions were obtained. One or more of the following dose reduction techniques were used: Automated exposure control, adjustment of the mA and/or kV according to the patient size, and/or iterative reconstruction. Unless otherwise specified, incidental findings do not require dedicated imaging follow-up. [id number]. COMPARISON: CT imaging June 02, 2023. FINDINGS: MSK: Postsurgical changes within the soft tissues of the lower abdominal wall. The remaining superficial soft tissues are grossly unremarkable. No acute osseous process. LOWER THORAX: Mediastinum: Unremarkable. Lung Bases: Negative for basilar consolidation. ABDOMEN/PELVIS: Vasculature: Calcific aortoiliac plaque without evidence of aortic aneurysm. Peritoneum: No significant ascites. Liver: No focal hepatic lesion. Spleen: No focal splenic lesion. Pancreas: No focal lesion or adjacent inflammatory fluid. Biliary System: Cholecystectomy. No biliary dilatation. Adrenals: Negative for adrenal nodule. Kidneys/Ureters: Punctate calculi within the renal collecting systems bilaterally. Mild bilateral pelvocaliectasis bilaterally. No evidence of ureteral calculus. Bladder: Unremarkable. Reproductive System: No acute process. Retroperitoneum: No acute process. Negative for pathologic paraaortic or iliac lymph nodes. Bowel: Normal caliber small and large bowel. No focal bowel wall thickening. The appendix is within normal limits. Mesenteries: Negative for mesenteric lymphadenopathy, mass, or organized fluid collection. IMPRESSION: No CT evidence of acute pathology involving the abdomen or pelvis. No evidence of obstructive uropathy. Other findings as above. . Legally authenticated by NING LEVY MD 2025-02-15 14:43:03 . . S/D/G Electronically signed by: Raulito Veronica MD 02/16/2025 03:19 AM EDT RP Dictated By: Raulito Veronica Transcribed By: Transcribed On: 02/15/2025 2:43 PM Electronically signed by: Raulito Veronica 02/15/2025 Thank you for referring ROCIO AYERS to [facility]. Legally authenticated by NING ELVY MD 2025-02-15 14:43:03 PATHOLOGY NARRATIVE RESULTS Information is not available MICROBIOLOGY RESULTS No Micro Labs/Results Exist for Patient BLOOD ADMIN RESULTS Information is not available MEDICATIONS HOME MEDICATIONS Status RXNORM NDC Medication Dose Route Frequency Dates Comments Reported By Updated By Drug Treatment Unknown DISCHARGE MEDICATIONS Status RXNORM NDC Medication Dose Route Frequency Dates Comments Physician Updated By No Discharge Medication Info rmation Available INPATIENT MEDICATIONS Status RXNORM NDC Medication Dose Route Frequency Rat e Quantity Dates Comments Physician Updated By No Inpatient Medication Info rmation Available SOCIAL HISTORY SOCIAL HISTORY SNOMED-CT Social History Element Description Effective Dates Offered Cessation Comment UpdatedBy [id number] Historical Tobacco smoking status Never Smoked [id number] on February 16, 2025 4:40:48 PM [facility] SOCIAL HISTORY - Gender Sex: Female SOCIAL HISTORY - Status : status i nformation is not available Intention in Next Year: intention information is not available SOCIAL HISTORY - Sexual Behavior Sexual Orientation Gender Identity SNOMED-CT Description SNO MED -CT Description Activity Level No of Partners Partner Type UpdatedBy Information is not available HEALTH CONCERNS Problems Concern Status Health Concern problem infor mation not available. Smoking Status Status Years Used Consumed packs p er day Health Concern smoking histo ry information not available. Family History Concern Status Health Concern family histor y information not available. ENCOUNTERS ENCOUNTER INFORMATION Reason for Visit HEMATURIA Admission February 15, 2025 6:01:[address] [address] Discharge February 15, 2025 11:01:00 PM [facility] DIS CHARGED TO HOME OR SELF CARE ENCOUNTER DIAGNOSES Notes information is not sukhdev ilable. Code System Diagnosis Onset Date Diagnosis information is not available. ABSTRACT DIAGNOSES Code System Diagnosis Updated By N20.0 ICD10 CALCULUS OF KIDNEY [id number] o n February 19, 2025 11:50:08 AM [facility] R31.9 ICD10 HEMATURIA, UNSPECIFIED ILX35 73 on February 19, 2025 11:50:08 AM UTC M54.9 ICD10 DORSALGIA, UNSPECIFIED [id number] 73 on February 19, 2025 11:50:08 AM UTC N20.0 ICD10 CALCULUS OF KIDNEY [id number] o n February 19, 2025 11:50:08 AM UTC R31.9 ICD10 HEMATURIA, UNSPECIFIED [id number] 73 on February 19, 2025 11:50:08 AM UTC M54.9 ICD10 DORSALGIA, UNSPECIFIED [id number] on February 19, 2025 11:50:08 AM UTC R10.9 ICD10 UNSPECIFIED ABDOMINAL PAIN I [id number] on February 19, 2025 11:50:08 AM UTC CARE TEAM Care Precipitation Equipment Tender Role MATTHEW RAMSEY Primary Care MATTHEW RAMSEY Referring MATTHEW RAMSEY Admitting MATTHEW RAMSEY Primary Attending CARE TEAM CARE concession worker Role on Team Status Start Date End Date Update d By ROXY CORONA PCP normal February 15, 2025 6:02:47 PM UTC February 15, 2025 11:01:00 PM UTC [id number] on February 15, 2025 6:02:47 PM UTC FENG VOGT APRN PCP normal February 15, 2025 2:20:47 PM UTC February 15, 2025 6:02:47 PM UTC [id number] on February 15, 2025 6:02:47 PM UTC ROXY CORONA Referring normal February 15, 2025 2:20:47 PM UTC February 15, 2025 11:01:00 PM UTC [id number] on February 15, 2025 6:02:47 PM UTC ROXY CORONA Attending normal February 15, 2025 2:20:47 PM UTC February 15, 2025 11:01:00 PM UTC [id number] on February 15, 2025 6:02:47 PM UTC ROXY CORONA Admitting normal February 15, 2025 2:20:47 PM UTC February 15, 2025 11:01:00 PM UTC [id number] on February 15, 2025 6:02:47 PM UTC
--- OUTSIDE RECORDS SUMMARY | 2025-02-23 15:22 | XMS_ITS | Data Portability ---
Author Organization [place] BRIAN Hobbs [place] CLOSED Address [address] [facility] [address] [place] [address] Care Team Providers Care Huc Name Role Phone MATTHEW RAMSEY Referring Provider Assessment No assessment recorded. Plan of Treatment Reminders Order Date Submit Date Provider Last Modified By Organization Details Last Modified Time Details Appointments NEW PATIENT UROLOGY 2024 11:00A M NICOLE COMER MD Not available Not available Not available Lab urinalysi s panel, auto [address] [facility], [address] [place] [address], [address], [place], [address], 11/30/2022 17:16:25 Referral None recorded. Procedures None recorded. Surgeries None recorded. Imaging None recorded. Medication Orders hydrocodo ne 7.5 mg-acetam inophen 325 mg tablet [email or web address] [facility], [address] [place] [address] [address], [place], [place], [id number], 12/01/2022 23:16:21 Patient TargetsNo targets recorded. Patient InstructionsNo instructions recorded. Reason for Referral None Reported. Results Created Date Observation Date Name Description Value Unit Range Abnormal Flag Note LastModifiedBy Organization Detail LastModifiedTime 12/01/1911/30/2022 urina lysis panel , auto Unknown Analyte Clean Catch Not Available [facility] [address], [place], [address], 11/30/2022 15:52:30 12/01/19 23 11/30/2022 urina lysis panel , auto Unknown Analyte Yellow Not Available [facility] [address], [place], [address], 11/30/2022 15:52:30 12/01/19 23 11/30/2022 urina lysis panel , auto Unknown Analyte Clear Not Available [facility] [address], [place], [address], 11/30/2022 15:52:30 12/01/19 23 11/30/2022 urina lysis panel , auto Unknown Analyte 1.015 Not Available [facility] [address], [place], [address], 11/30/2022 15:52:30 12/01/19 23 11/30/2022 urina lysis panel , auto Unknown Analyte 7.0 Not Available [facility] [address], [place], [address], 11/30/2022 15:52:30 12/01/19 23 11/30/2022 urina lysis panel , auto Unknown Analyte Negati ve Not Available [facility] [address], [place], [address], 11/30/2022 15:52:30 12/01/19 23 11/30/2022 urina lysis panel , auto Unknown Analyte Negati ve Not Available [facility] [address], [place], [address], 11/30/2022 15:52:30 12/01/19 23 11/30/2022 urina lysis panel , auto Unknown Analyte Negati ve Not Available [facility] [address], [place], [address], 11/30/2022 15:52:30 12/01/19 23 11/30/2022 urina lysis panel , auto Unknown Analyte Normal Not Available [facility] [address], [place], [address], 11/30/2022 15:52:30 12/01/19 23 11/30/2022 urina lysis panel , auto Unknown Analyte Negati ve Not Available [facility] [address], [place], [address], 11/30/2022 15:52:30 12/01/19 23 11/30/2022 urina lysis panel , auto Unknown Analyte Normal Not Available [facility] [address], [place], [address], 11/30/2022 15:52:30 12/01/19 23 11/30/2022 urina lysis panel , auto Unknown Analyte Negati ve Not Available [facility] [address], [place], [address], 11/30/2022 15:52:30 12/01/19 23 11/30/2022 urina lysis panel , auto Unknown Analyte Negati ve Not Available [facility] [address], [place], [address], 11/30/2022 15:52:30 12/20/19 23 12/18/2022 fluor oscop y (PROC ) No observ ation record ed. [email or web address] [facility] [address] [facility], [place], [address], 12/21/2022 21:32:21 Result Notes None recorded. Problems No Known Problems Medical Equipment None Reported. Allergies Allergen ID Allergen Name Allergen Category Reaction Reaction Severity Criticality Documentation Date Start Date Code Code System Note Provider Name and Address Organization Details Recorded Time 067569 Substance with sulfonami de structure and antibacte rial mechanism of action (substanc e) medicatio n Not available Not available Not available 11/30/2022 13027 8003 SNOMED Ann-Marie [facility] 15:51:45 723127 Non-stero idal anti-infl ammatory agent (product) medicatio n Not available Not available Not available 11/30/2022 42209 005 [facility] Ann[facility] 15:51:55 518756 Latex (substanc e) environme nt,medica tion Not available Not available Not available 11/30/2022 91426 8007 SNOMED Ann-Marie [facility] 15:52:01 Medications Name Sig Start Date [...] Address Organization Details Last Updated DateTime 11/30/2022 09343.82 g 22.9 kg/m2 175.26 cm Ann-Marie [facility] 11/30/2022 15:51:26 Social History None recorded. Functional Status None recorded. Mental Status None recorded. Family History Nothing Reported. Medical History No medical history recorded. Gynecological HistoryNo gynecological history recorded. Obstetrics History GPAL:G 0 P 0 0 0 0 Past Encounters Encounter ID Performer Location Encounter Start Date Encounter Closed Date Diagnosis/Indication Diagnosis SNOMED-CT Code Diagnosis ICD10 Code Diagnosis Note [id number] MILDRED VIDES MD [facility] [address] [place] [address] 11/30/2022 15:19:19 11/30/2022 16:50:57 Urolithiasis 03894160 N20.9 arrange for above Health Concerns Section Related Observation LastModified by Organization Detai ls LastModified Time None Recorded Concern Status LastModified by Organization Details LastModified Time None Recorded Advance Directives Directive None Recorded Payers Insurance Date Sequence Insurance Name Policy Number Policy Interiano Covered Member ID Interiano Member ID Guarantor Name 02/23/2025 1 [place] [id number] Maia Fermín [id number] Maia [place] 02/23/2025 1 [facility] Maia [place] [id number] Maia Fermín 02/23/2025 1 [facility] [id number] Maia [place] [id number] Maia Fermín Notes Date Note Type Note Provider Name and Address Organization Details Recorded Time 11/30/2022 text/html Here for initial visit for urolithiasis. She passed a stone years ago but now has had right sided back pain and urgency for several weeks. She brought ct scan disc from [facility] for review. No hydro and two tiny 1mm stones in right kidney. The pain is sign. at times. We discussed cysto and right retrograde to assess for missed stone on ct scan. MILDRED VIDES MD [address] [place], [address], [facility] 12/01/2022 23:20:23 OBGyn Episode No OBEpisode recorded.
--- OUTSIDE RECORDS SUMMARY | 2025-02-23 15:22 | XMS_ITS | Data Portability ---
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 The patient also complains [...] __ __ __ __ __ _ JOE: [id number] I have reviewed patient's JOE report prior to prescribing Schedule II, III, and IV medications that require review by law. [email or web address] Not available 12/17/2022 12:55:12 01/22/2023 01/22/2023 The [...] __ __ __ __ __ _ JOE: [id number] I have reviewed patient's JOE report prior to prescribing Schedule II, III, and IV medications that require review by law. [email or web address] Not available 01/22/2023 13:01:57 Plan of Treatment Reminders Order Date Submit Date Provider Last Modified By Organization Details Last Modified Time Details Appointments None recorded. Lab None recorded. Referral None recorded. Procedures medial branch block, thoracic (PROC) - 17705, 47136 bilateral T9-T11 2022 023 [email or web address] Not available 3 15:54:30 injection , trigger point (PROC) - 84917, 01437 bilateral thoracic region including longissim us thoracis, thoracis spinalis and rhomboid muscles 2022 023 [email or web address] Not available 3 15:03:18 Surgeries None recorded. Imaging XR, cervical spine 2022 023 [email or web address] Not available 3 13:45:07 Medication Orders tizanidin e 4 mg tablet 2022 023 [facility], [address] [place] [address], [id number], 3 22:28:06 Patient TargetsNo targets recorded. Patient InstructionsNo instructions recorded. Reason for Referral None Reported. Problems Name Problem SNOMED Code Status Onset Date Resolution Date Notes Provider Name and Address Organization Details Recorded Time Neck pain 48107777 Active 2022 Not Available [facility] 3 14:05:10 Spinal stenosis in cervical region 64422751 Active 2022 Not Available [facility] 3 14:05:10 Lumbar spondylosi s 735098641 Active 2022 Not Available [facility] 3 14:05:09 Thoracic spondylosi s 278744394 Active 2022 Not Available [facility] 3 14:05:10 Myofascial pain 943369694 Active 2022 Not Available [facility] 3 14:05:09 Dextroscol iosis 8456144687291 01 Active 2022 Not Available [facility] 3 14:05:10 Pain in pelvis 56810114 Active 2022 Not Available [facility] 3 14:05:09 History of endometrio sis 3677410477628 4107 Active 2022 Not Available [facility] 14:05:09 Pain in thoracic spine 801342706 Active 2022 Not Available [facility] 14:05:09 Problem Notes None recorded. Procedures Surgical History Date Name Laterality Status Provider Name and Address Organization Details Recorded Time tonsilectom y/adenoids completed Maria Eugenia WANG [facility] [place] 12/11/2022 11:34:45 Imaging Results None recorded. Procedure Notes None recorded. Medical Equipment None Reported. Allergies Allergen ID Allergen Name Allergen Category Reaction Reaction Severity Criticality Documentation Date Start Date Code Code System Note Provider Name and Address Organization Details Recorded Time 76428 latex environme nt,medica tion Not available Not available Not available 12/11/2022 06456 91 RxNorm [facility] [place] 3 11:33:33 34868 Substance with sulfonami de structure and antibacte rial mechanism of action (substanc e) medicatio n Not available Not available Not available 12/11/2022 06502 8003 SNOMED [facility] [place] 3 11:33:38 Medications Name Sig Start Date [...] ONE TABLET BY [facility]TH [facility] THE same timeS each DAY 01/22 [...] Address Organization Details Last Updated DateTime 3 43416.3 7 g 97.1 [degF] 99 % 99 % 67 /min 126 mm[Hg] 73 mm[Hg] Michelle Rangel [facility] [place] 3 11:41:58 Date Recorded Body height Body mass index (BMI) Body weight Body temperature Oxygen saturation Oxygen saturation in Arterial blood by Pulse oximetry Heart rate Respiratory rate Systolic blood pressure Diastolic blood pressure Provider Name and Address Organization Details Last Updated DateTime 3 175.26 cm 24.9 kg/m2 79953.6 7 g 97.1 [degF] 100 % 100 % 80 /min 20 /min 113 mm[Hg] 72 mm[Hg] Ignacia Faust [facility] [place] 3 11:52:15 Social History None recorded. Functional Status None recorded. Mental Status None recorded. Family History Relationship Description Onset Age of this Age Resolved Age Notes LastModified by Organization Details LastModified Time Mother Malignant neoplastic disease CHART_MERGE Not available 03/27 14:05:07 Father Hypertensive disorder CHART_MERGE Not available 03/27 14:05:08 Medical History Condition Response Coronary Artery Disease N None N Gout N Hernia N Head Trauma/Injury N Thyroid Problems N Depression N COPD N Anemia N Heart Attack ([place]) N Ulcers N Anxiety Disorder Y Diabetes N Bleeding Disorder N Arthritis N Tuberculosis N AIDS/HIV N Acid Reflux (GERD) Y Cancer N Stroke N Asthma N Substance Abuse N Back Injury N High Cholesterol N Hepatitis N Liver Disease N Heart Disease N Headaches N Fibromyalgia N Hypertension N Osteoporosis N Kidney Disease N Gynecological HistoryNo gynecological history recorded. Obstetrics History GPAL:G 0 P 0 0 0 0 Past Encounters Encounter ID Performer Location Encounter Start Date Encounter Closed Date Diagnosis/Indication Diagnosis SNOMED-CT Code Diagnosis ICD10 Code Diagnosis Note [id number] Robinson Springer MD [facility] [address] [facility] [place] [address] 12/17/2022 11:23:48 12/17/2022 12:06:58 Neck pain 39937666 M54.2 Spinal venita nosis in cervical region 19677684 M99.51 Lumbar spondylosis 62630 0009 M47.816 Myofascial pain 35555279 9 M79.10 Thoracic spondylosis 387 421673 M47.814 Dextroscoliosis 39643424 01 82925 M41.9 Pain in pelvis 31240745 R10.2 History of endometriosis 2080349598 9328528 Z87.42 Pain in th oracic spine 716317594 M54.6 Spinal enthesopathy 1031 7009 M46.04 [id number] SAIDA DEL REAL PA-C [facility] [address] [facility] [address] [place] [address] 01/22/2023 11:36:10 01/22/2023 12:03:48 Spinal enthesopathy 75500979 M46.04 Spinal venita nosis in cervical region 06117806 M99.51 Thoracic spondylosis 387 125842 M47.814 Myofascial pain 29482148 9 M79.10 Neck pain 08794928 M54.2 Lumbar spondylosis 91012 0009 M47.816 Dextroscoliosis 45776302 01 82426 M41.9 Pain in pelvis 60183429 R10.2 History of endometriosis 6567479204 3329660 Z87.42 Pain in th oracic spine 019999500 M54.6 Health Concerns Section Related Observation LastModified by Organization Detai ls LastModified Time None Recorded Concern Status LastModified by Organization Details LastModified Time None Recorded Advance Directives Directive None Recorded Payers Insurance Date Sequence Insurance Name Policy Number Policy Interiano Covered Member ID Interiano Member ID Guarantor Name 04/15/2024 1 [place] [id number] 1 Maia Kovacs [id number] Maia [place] 11/25/2021 1 [facility] [id number] Nolan Kovacs [id number] Maia Kovacs 12/17/2022 1 [facility] [id number] Nolan Kovacs [id number] Maia [place] Notes Date Note Type Note Provider Name [...] Surgery: none Imaging/Studies: none Robinson Springer MD [address] [facility], [place], [address], [facility] [place] 12/17/2022 22:28:10 3 text/html Ms. Kovacs was [...] relationships, and walking.Current Pain Medications: Tizanidine 4mg J26Hxvli Pain Medications: Reports being on intermittent opioids hydrocodone/a Pap and gabapentin 100 mgNSAIDS/OTC: mildly helpfulNon-interventiona l Tx: TENS unitPhysical Therapy: at home exercises/stretchesInter ventional Tx: Reports Thoracic rhizotomy in 2008, LRFA March 2020Surgery: noneImaging/Studies: none SAIDA DEL REAL PA-C [address], [place], [address], [facility] [place] 01/22/2023 13:03:04 OBGyn Episode No OBEpisode recorded.
[2025-02-23 15:26] VITALS: BP 118/73; PULSE 71; RESP 16; TEMP 36.6; O2SAT 97; BMI 24.3
--- NOTE | 2025-02-23 15:33 | CT_ITS ---
FINAL REPORT TECHNIQUE: Axial images through the abdomen and pelvis were performed without contrast. This study was performed with techniques to keep radiation doses as low as reasonably achievable, (ALARA). Individualized dose reduction techniques using automated exposure control or adjustment of mA and/or kV according to the patient's size were employed. CLINICAL HISTORY: CVA tenderness COMPARISON: 02/15/2025 FINDINGS: Abdomen: The lung bases are clear. The liver is diffusely enlarged measuring up to 22 cm in craniocaudal dimension. The gallbladder is present. The spleen, pancreas, and adrenals are unremarkable. There are tiny bilateral nonobstructing kidney stones. No hydronephrosis or hydroureter. Pelvis: There is a moderate amount of stool throughout the colon. The urinary bladder is decompressed. The appendix is unremarkable. The uterus is anteverted. There is no pelvic mass or inflammation. IMPRESSION: Multiple tiny nonobstructing kidney stones. Moderate hepatomegaly. Reviewed, Interpreted and Dictated by Cristi Langley MD Transcribed by Aminata Lawler Authenticated and [facility]
--- NOTE | 2025-02-23 15:36 | ED_ITS ---
<Statement entered by Trice Rolon DO - 02/23/25 22:14> I was consulted by the AMANDO, and we discussed the complexity of the problems being addressed. I approved the treatment and management plan for this patient's care in the emergency department, thus performing a substantive portion of the medical decision making. Trice Rolon DO Discharge Plan Disposition Patient Disposition: Home, Self-Care Prescriptions Prescriptions: No Action tizanidine 4 mg tablet 4 mg PO gabapentin 300 mg capsule 300 mg PO Patient Comments: TAKE ONE CAPSULE BY MOUTH EVERY 8 HOURS MAY CAUSE DROWSINESS cyanocobalamin (vitamin B-12) 1,000 mcg/mL solution 1,000 mcg SQ Patient Comments: INJECT 1 ML DIRECTED EVERY 28 DAYS pantoprazole 40 mg tablet,delayed release (DR/EC) 40 mg PO ONCE Patient Comments: TAKE ONE TABLET BY MOUTH TWICE DAILY famotidine [Pepcid] 20 mg Tablet 20 mg PO DAILY 28-800 mg-mcg Tablet 1 tab PO DAILY Referrals Follow up/Referrals: Olivia Patel [Primary Care Provider, Medical] - See instructions Activity Restrictions/Add. Instructions Additional Instructions/Restrictions: You were seen in the emergency room today with complaints of abdominal pain and CVA tenderness. Follow-up with your primary care provider as needed. Return to the emergency room should your condition worsen. Clinical Impressions Clinical Impression: Abdominal pain, Acute hypokalemia Print Language Print Language: Sri Lankan Discharge ED Provider: Trice Rolon General Adult HPI General Chief complaint: PAIN Stated complaint: Known kidney stones, worsening pain Time Seen by Provider: 02/23/25 15:25 Mode of Arrival: Ambulatory Source of Information: Patient Description of Symptoms (Recalled from ER Triage Doc. by RN): Pt developed right flank pain 1 week ago, CT done shows stone in collecting duct. Hx of kidney stones, increased pain, fever and bilateral leg edema today. Nausea and vomiting History of Present Illness HPI narrative: Maia Kovacs is a 34-year-old female who presents emergency room tonight with complaints of right-sided flank pain and dysuria. Ms. Kovacs states that she has had this flank pain and dysuria off and on since the when she was seen here. Patient was seen in this ER by Dr. Hook on the , had a CT scan done which showed nephrolithiasis. Patient reports that she then went to her primary care doctor's office the next day, got a repeat CT scan, which again showed kidney stones. Patient was started on ciprofloxacin at that time, took a days dose of it, but at her PCP office called and said she did not have a UTI and could stop taking the Cipro. Patient reports that she has had worsening flank pain over the last couple days on the right. Reports she had a fever today but did not take her temperature. Patient just states she feels very warm. No hematuria. Patient has tried taking [id number] Tylenol which has not helped. Also states she has some pain occasionally down into her groin. Does not take any blood thinners. No other complaints at this time. Please note that the above description of symptoms, and this electronic medical record under categorization of recalled from ER triage doctor by RN are reflective of an initial nursing assessment, however, is not reflective of my full history and physical exam that was personally taken and clarified. Consequentially, this proceeding description of symptoms, which may include the patient's cauterized chief complaint in the EMR, do not reflect my personal clinical impression, and the ultimate description of the history of present illness stated complaints should be deferred to this section of this note. Unless stated otherwise were congruent with the section of the note, additional signs, symptoms, or incongruence can be interpreted as in or accurate with my clinical impression. Related Data Home Medications ?Medication ?Instructions ?Recorded ?Confirmed famotidine 20 mg tablet (Pepcid) 20 mg PO DAILY 02/07/25 vit no.133-ferrous 1 tab PO DAILY 05/24/24 fumarate 28 mg-folic acid 800 mcg tablet () cyanocobalamin (vitamin B-12) 1,000 mcg SQ 02/07/25 1,000 mcg/mL injection solution gabapentin 300 mg capsule 300 mg PO 02/07/25 02/07/25 pantoprazole 40 mg tablet,delayed 40 mg PO ONCE 02/07/25 release tizanidine 4 mg tablet 4 mg PO 02/07/25 02/07/25 Allergies Allergy/AdvReac Type Severity Reaction Status Date / Time celecoxib (From Celebrex) Allergy Severe Anaphylaxis Verified 02/07/25 11:03 latex (LATEX) Allergy Severe Anaphylaxis Verified 02/07/25 11:03 coconut Allergy Unknown Anaphylaxis Verified 02/07/25 11:03 Pertussis Vaccines Allergy Unknown Unknown Verified 02/07/25 11:03 (PERTUSSIS VACCINES) allergy reaction pineapple (PINEAPPLE) Allergy Unknown Unknown Verified 02/07/25 11:03 allergy reaction Sulfa (Sulfonamide Allergy Unknown Unknown Verified 02/07/25 11:03 Antibiotics) (SULFA allergy (SULFONAMIDE ANTIBIOTICS)) reaction dicyclomine (From Bentyl) AdvReac Verified 02/07/25 11:03 ketamine AdvReac Verified 02/07/25 11:03 PFSH [facility] Disclaimer: The information contained in this section may have been updated after the patient was seen, as this information can be updated by other users. Medical History (Updated 02/23/25 @ 17:09 by Jaida Almodovar APRN) Viral upper respiratory infection Liver disease Depression Anxiety History of anemia History of gastroesophageal reflux (GERD) Kidney stone Migraine Surgical History History of tonsillectomy History of cholecystectomy History of section Family History Grandfather Cancer Colon Cancer Mother Cancer Thyroid Cancer Sister Cancer Cervical Cancer Grandmother Cancer Maternal Grandmother-Cervical, Breast and Lung Cancer Social History Smoking Status: Never smoker second hand exposure: No alcohol intake: never current occupational status: employed Travel in the last 8 weeks?: None household members: other housing: house 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 current occupational exposures/hazards: No caffeine: Yes Have you lived/traveled outside US in past 30 days?: No Contact w/someone who lives/traveled outside US past 30 days?: No Exposure to someone with infectious disease in past 14 days?: No Do you have a fever (greater than 100.4 F or 38 C)?: No Have you tested positive for COVID-19?: No Exposed to someone with COVID-19 in past 14 days?: No Do you have a sore throat?: No Do you have a cough?: No Do you have any weakness?: No Do you have any diarrhea?: No Are you experiencing any unusual bleeding?: No Do you have any muscle aches/pain?: No Do you have any abdominal pain?: Yes Are you experiencing loss of taste or smell?: No Other Medical History Have you received the Flu Vaccine for this season: Yes Have you received the Pneumonia Vaccine: No ROS Obtained: Yes Systems reviewed as appropriate & no additional complaints except as documented Physical Exam General General appearance: alert and in no apparent distress Head Head exam: atraumatic and normocephalic Eye Eye exam: Present PERRL and EOMI Chest Chest inspection: Present symmetric chest wall rise Respiratory Respiratory exam: Present normal lung sounds bilaterally Cardiovascular Cardiovascular exam: Present regular rate and normal rhythm Abdominal Exam Abdominal exam: Present soft and normal bowel sounds; Absent tenderness Extremities Exam Extremities exam: Present full ROM Neurological Exam Neurological exam: Present alert and oriented X3 Skin Skin exam: Present warm, dry and intact Medical Decision Making Medical Records Screening: Per USPSTF and CDC recommendations, given the prevalence of disease in our region, it is our hospital?s policy to screen for HIV and viral Hepatitis for all patients aged 18 and over and those with ongoing risk factors. Federico Inquiry Pt receiving controlled substance: No Vital Signs: 02/23/25 15:26 Temperature 97.9 F Temperature Source Oral Pulse Rate [Left] 71 Respiratory Rate 16 Blood Pressure [Right Arm] 118/73 Blood Pressure Mean [Right Arm] 88 Blood Pressure Source [Right Arm] Automatic Cuff Blood Pressure Position [Right Arm] Sitting 02 Sat by Pulse Oximetry 97 Oxygen Delivery Method Room Air Lab Data Lab Results 02/23/25 15:21: Urine Color [place], Urine Appearance Clear, Urine pH 6.0, Ur Specific [place] 1.025, Urine Protein Negative, Urine Glucose (UA) Negative, Urine Ketones Negative, Urine Blood Negative, Urine Nitrate Positive A, Urine Bilirubin Negative, Urine Urobilinogen 1.0, Ur Leukocyte Esterase Negative, Urine RBC None, Urine WBC Occasional, Ur Squamous Epith Cells 3-5, Urine Bacteria Trace, Urine Mucus 1+ 02/23/25 15:35: WBC 10.2, RBC 4.03 L, Hgb 11.1 L, Hct 35.6 L, MCV 88.3, MCH 27.5, MCHC 31.2 L, RDW 14.1, Plt Count 318, MPV 9.0, Neut % (Auto) 81.2 H, Lymph % (Auto) 12.0, [place] % (Auto) 4.6, Eos % (Auto) 1.1, Baso % (Auto) 0.4, Neut # (Auto) 8.3 H, Lymph # (Auto) 1.2, [place] # (Auto) 0.5, Eos # (Auto) 0.1, Baso # (Auto) 0.0, Sodium 141, Potassium 3.3 L, Chloride 110 H, Carbon Dioxide 26, Anion Gap 8.3, BUN 10, Creatinine 0.60, Estimated Creat Clear 154, Estimated GFR 116, Est GFR ( Amer) 140, Glucose 105 H, Calcium 8.9, Total Bilirubin 0.1 L, AST 31, ALT 20, Alkaline Phosphatase 108, Total Protein 7.0, Albumin 4.2, Globulin 2.8, Albumin/Globulin Ratio 1.5, Lipase 35 02/23/25 15:35 02/23/25 15:35 Orders (Tests/Meds): ED MEDICATIONS Discontinued Medications Generic Name Dose Route Start Last Admin Trade Name Freq PRN Reason Stop Dose Admin Ketorolac Tromethamine 30 mg 02/23/25 16:29 02/23/25 16:35 Ketorolac 30mg/Ml Vial IV 02/23/25 16:30 30 mg ONCE ONE Administration Ondansetron HCl 4 mg 02/23/25 15:59 02/23/25 16:03 Ondansetron 4mg/2ml Vial IV 02/23/25 16:00 4 mg ONCE ONE Administration Ondansetron HCl 4 mg 02/23/25 16:38 02/23/25 16:42 Ondansetron 4mg/2ml Vial IV 02/23/25 16:39 4 mg ONCE ONE Administration Prochlorperazine Edisylate 5 mg 02/23/25 16:30 02/23/25 16:35 Prochlorperazine 10mg/2ml Vial IV 02/23/25 16:31 Not Given ONCE ONE ORDERS Category Date Time Status CT abdomen pelvis wo con Stat Cat Scan 02/23/25 15:33 Completed CBC w/Auto Diff [Complete Blood Count Auto Diff] Stat Lab 02/23/25 15:35 Completed CMP [Comprehensive Metabolic Panel] Stat Lab 02/23/25 15:35 Completed Lipase Stat Lab 02/23/25 15:35 Completed UA [Urinalysis and Microscopic] Stat Lab 02/23/25 15:21 Completed Urine Culture Stat Micro 02/23/25 15:21 Received Medical Decision Narrative: In summary patient is an 34-year-old female who presents emergency department for evaluation of right flank pain and fever with dysuria. Patient reports the symptoms about ongoing since she was last evaluated in this department on February 13. States she developed a fever today, states she feels very warm but has not taken her temperature with a thermometer. No hematuria noted. CVA tenderness worse with palpation.. Patient is hemodynamically stable upon arrival, afebrile. Physical exam remarkable for CVA tenderness upon palpation, otherwise nonfocal.. Differential diagnosis includes acute cystitis, pyelonephritis, kidney stone. Initial workup will be conducted with hematologic labs, CT of the abdomen pelvis without contrast. Initial workup reviewed by ny hematologic labs show a chronic stable anemia with H&H 11 and 35, no leukocytosis. Chemistry panel shows a potassium of 3.3 otherwise unremarkable. UA without evidence of acute cystitis. CT of the abdomen pelvis without contrast showed constipation, otherwise no acute findings. Patient was given 2 doses of Zofran and a dose of Toradol. I did give her potassium repletion while in the ER. Upon repeat evaluation, patient had some improvement in her nausea and her pain was improved with the Toradol. Still having some mild pain in her back and abdomen but it is improved. Given this patient appropriate for discharge at this time. She can follow-up with her primary care provider as needed. She can return to the emergency room for evaluation should her condition worsen. She will not be sent home with any prescriptions at this time. Critical Care Critical Care Time Critical Care Time: No
--- NOTE | 2025-02-23 15:52 | PC.NURSE ---
PT ARRIVED BACK TO ROOM FROM CT
[2025-02-23 16:03] LABS: Microscopic, Urine URINE MICROSCOPIC (MICROSCOPIC)
[2025-02-23] MEDS: ONDANSETRON 4MG/2ML VIAL 4 MG IV ×2 (16:03→16:42)
[2025-02-23 16:04] LABS: Basophils % 0.4 % (0.1-2.0); Eosinophils # 0.1 Kmm3 (0.0-0.4); Eosinophils % 1.1 % (0.1-12.0); Hematocrit 35.6 % (37.0-47.0); Hemoglobin 11.1 g/dL (12.2-16.2); Immature Granulocytes # 0.07 10^3uL; Immature Granulocytes % 0.7 %; Lymphocytes # 1.2 K/mm3 (0.7-4.5); Mean Corpuscular HGB Conc 31.2 g/dL (31.8-35.4); Mean Corpuscular Hemoglobin 27.5 pg (27.0-31.2); Mean Corpuscular Volume 88.3 fl (81-99); Monocytes # 0.5 K/mm3 (0.1-1.0); Monocytes % 4.6 % (1.7-9.3); Neutrophils # 8.3 K/mm3 (1.8-7.8); Neutrophils % 81.2 % (37.0-80.0); Nucleated Red Blood Cells # 0 10^3/uL; Nucleated Red Blood Cells % 0 %; Platelet Count 318 K/mm3 (142-424); Red Blood Count 4.03 M/mm3 (4.20-5.40); Red Cell Distribution Width 14.1 % (11.5-17.5); Red Cell Distribution Width-SD 45.5 fL; White Blood Count 10.2 K/mm3 (4.8-10.8)
[2025-02-23 16:05] LABS: Appearance,Urine CLEAR (Clear); Bilirubin,Urine Negative (Negative); Blood, Urine Negative (Negative); Color,Urine ORANGE (Yellow); Glucose,Urine (UA) Negative (Negative); Ketones,Urine Negative (Negative); Leukocyte Esterase,Urine Negative (Negative); Nitrate,Urine POSITIVE (Negative); Protein,Urine Negative (Negative); Specific Gravity, Urine 1.025 (1.005-1.030)
[2025-02-23 16:09] LABS: Albumin Level 4.2 g/dl (3.5-5.0); Chloride 110 mmol/L (98-107); Potassium 3.3 mmoL/L (3.5-5.1); Sodium 141 mmol/L (136-145)
[2025-02-23 16:11] LABS: Alanine Aminotransferase 20 U/L (12-78); Anion Gap 8.3 mEq/L (5-15); Aspartate Amino Transferase 31 U/L (14-36); Blood Urea Nitrogen 10 mg/dl (7-17); Carbon Dioxide 26 mmol/L (22.0-30.0); Creatinine Clearance Estimated 154 mL/min (50-200); Estimated Glomerular Filt Rate 116 ml/min (>60); GFR (African American) 140 ML/MIN (>60)
[2025-02-23 16:12] LABS: Albumin/Globulin Ratio 1.5 (1.1-1.8); Alkaline Phosphatase 108 U/L (38-126); Calcium 8.9 mg/dl (8.4-10.2); Globulin 2.8 g/dL (1.3-3.2); Glucose 105 mg/dl (74-100); Lipase 35 U/L (23-300)
[2025-02-23 16:13] LABS: WBC,Urine Occasional #/hpf (0-3)
[2025-02-23 16:14] LABS: Bacteria,Urine Trace /lpf; Mucus,Urine 1+ /lpf
[2025-02-23 16:16] LABS: Bilirubin,Total 0.1 mg/dl (0.2-1.3)
[2025-02-23] MEDS: KETOROLAC 30MG/ML VIAL 30 MG IV (16:35)
[2025-02-23 16:45] VITALS: BP 123/74; PULSE 61; O2SAT 97
[2025-02-23 16:57] VITALS: BP 139/89; PULSE 91; RESP 16; TEMP 36.9; O2SAT 99; BMI 26.1
[2025-02-23 17:00] VITALS: BP 123/73; PULSE 64; O2SAT 98
[2025-02-23] MEDS: POTASSIUM CHLORIDE 20MEQ TAB 40 MEQ PO (17:10)
[2025-02-23 17:13] VITALS: BP 123/73; PULSE 63; RESP 16; TEMP 36.6; O2SAT 98
--- NOTE | 2025-02-23 17:27 | PC.NURSE ---
Pt concerned with CT result showing liver enlargement. Spoke with Jaida, she recommended for her to follow up with GI.
--- NOTE | 2025-02-23 17:35 | PC.NURSE ---
Cannot edit this pt chart, triage entered for chest pain does not apply to this pt.
== END 2025-02-23 17:28 | disposition home or self-care (01) ==
PROVIDERS: Nurse Practitioner Acute Care; Emergency Provider Emergency Medicine; PCP Family Medicine
DX: R10.31 Right lower quadrant pain (principal); E87.6 Hypokalemia; R11.2 Nausea with vomiting, unspecified; Z87.442 Personal history of urinary calculi
CPT/HCPCS: 74176; 80053; 81001; 83690; 85025; 87086; 96374; 96375; 96376; 99285; J1885; J2405

== ENCOUNTER → 2025-04-25 14:54 | Outpatient (REF) | payer SELFPAY ==
--- OUTSIDE RECORDS SUMMARY | 2025-01-02 11:15 | XMS_ITS ---
Author Organization [facility] Address [address] [facility] [address] [place] [address] Care Team Providers Care Video Editor Name Role Phone Chelita Jackson Unavailable [phone] Seda Sutton Unavailable [phone] REASON FOR VISIT 2 WK INCISION CHECK Social History Sex Assigned At : Social History Observation Description Sex Assigned At Female Encounters Encounter Location Date Provider Diagnosis [facility] [address] [facility] [address] [place] [address] 01/02/2025 Seda Sutton Plan Of Treatment No Information Progress Notes * Maia KOVACSDOB:[birth year] (34 yo F)Acc No.[id number]:01/02/2025 Progress Note Patient: Dylan kathrynshirley aMia Zhao Provider: Tomeka Sutton MD :1990 A ge:34 Y S ex:Female Date:01/02/2025 Address:[address] [place] [address] [place] [facility] Subjective: * Chief Complaints: * 2 WK INCISION CHECK * Electronic signature of Maureen Sutton MD on 04/25/2025 at 02:57 PM EDT Sign off status: Pending Visit Status: C ANC-PD (Cancelled Patient Delivered) * Provider: Tomeka Sutton MD Date: 0 01/02/2025 Generated for Printi ng/Faxing/eTransmitting on: 0 04/25/2025 02:57 PM EDT
--- OUTSIDE RECORDS SUMMARY | 2025-01-30 11:15 | XMS_ITS ---
Author Organization [facility] Address [address] [facility] [address] [place] [address] Care Team Providers Care Cooling Pipe Inspector Name Role Phone Chelita Jackson Unavailable [phone] Rafael Suttonah Unavailable [phone] REASON FOR VISIT 6 WK PP Social History Sex Assigned At : Social History Observation Description Sex Assigned At Female Encounters Encounter Location Date Provider Diagnosis [facility] [address] [facility] [address] [place] [address] 01/30/2025 Seda Sutton Plan Of Treatment No Information Progress Notes * Maia KOVACSDOB:[birth year] (34 yo F)Acc No.[id number]:01/30/2025 Progress Note Patient: Dylan kathrynshirley Maia Zhao Provider: Tomeka Sutton MD :1990 A ge:34 Y S ex:Female Date:01/30/2025 Address:[address] [place] [address] dennisCount includes the [facility] Subjective: * Chief Complaints: * 6 WK PP * Electronic signature of Maureen Sutton MD on 04/25/2025 at 02:58 PM EDT Sign off status: Pending Visit Status: C ANC-PD (Cancelled Patient Delivered) * Provider: Tomeka Sutton MD Date: 0 01/30/2025 Generated for Printi ng/Faxing/eTransmitting on: 0 04/25/2025 02:58 PM EDT
--- OUTSIDE RECORDS SUMMARY | 2025-04-25 14:56 | XMS_ITS | CCD ---
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 Medications Date Name Route Dose Frequency Instructions Start Date End Date Status Spironolactone Oral Oral at bedtime stopped Melatonin Oral Oral one at bedtime active Nitroglycerin Sublingual Sublingual PRN active Quetiapine Oral Oral daily a ctive B Complex & C No.20-Folic Acid Oral 1 mg Oral Daily active Spironolactone Oral Oral 1.5 tablets daily active Quetiapine Oral Oral one at bedtime active Ferrous Sulfate Oral Oral one twice daily active Mariajose Oral Oral Daily Mariajose Root active Spironolactone Oral Oral one half tablet daily stopped Potassium Chloride Oral ER Tab Oral 2 in the morning active Gabapentin Oral Oral one twice daily active Problems Diagnosis Status Date of Diagnosis Resolution Date Malabsorption syndrome (disorder) Active Iron deficiency anemia secon ra to blood loss Active Social History Date Name Value Sex Female
--- OUTSIDE RECORDS SUMMARY | 2025-04-25 14:57 | XMS_ITS | Encounter Summary ---
Author Organization [facility] Address [address] [place] [address] Care Team Providers Care Director Of Institutional Giving Name Role Phone Michaela Sousa APRN Primary Care Provider + [phone] Reason for Visit * Reason Onset Date Comments Advice Only 03/08/2025 Encounter Details Date Type Department Care Team (Late st Contact Info) Description 03/08/2025 Telephone [facility] [address] [phone] Aminata Nassar MD [address] [address] Advice Only Social History Tobacco Use Types Packs/Day Years Used Date Smoking Tobacco: Never Passive Smoke Exposure: Never Smokeless Tobacco: Never Alcohol Use Standard Drinks/Week Comments No 0 (1 standard drink = 0.6 oz pur e alcohol) [facility] Utilities Answer Date Recorded In the past 12 months has [employer], oil, or water [employer] threatened to shut off services in your home? No 12/10/2024 AUDIT-C Answer Date Recorded Q1: How often do you have a drink containing alcohol? Never 12/10/2024 Q2: How many drinks containi ng alcohol do you have on a typical day when you are drinking? Patient does not drink Q3: How often do you have si x or more drinks on one occasion? Never 12/10/2024 Overall Financial Resource Strain (CARDIA) Answe r Date Recorded How hard is it for you to pa y for the very basics like food, housing, medical care, and heating? Not hard at all 12/10/2024 PHQ-2 Answer Date Recorded Retired Total Score 0 05/07/2021 [facility] Occupat ional Health - Occupational Stress Questionnaire Answer Date Recorded Do you feel stress - tense, restless, nervous, or anxious, or unable to sleep at night because your mind is troubled all the time - these days? Not at all 12/10/2024 Exercise Vital Sign Answer Date Recorde d On average, how many days pe r week do you engage in moderate to strenuous exercise (like a brisk walk)? 7 days 12/10/2024 On average, how many minutes do you engage in exercise at this level? 10 min 12/10/2024 Hunger Vital Sign Answer Date Recorded Within the past 12 months, y ou worried that your food would run out before you got the money to buy more. Never true 12/11/19 25 Within the past 12 months, t he food you bought just didn't last and you didn't have money to get more. Never true 12/10/2024 PRAPARE - Transportation Answer Date Re corded In the past 12 months, has l ack of transportation kept you from medical appointments or from getting medications? No 11/25 In the past 12 months, has l ack of transportation kept you from meetings, work, or from getting things needed for daily living? No 12/10/2024 Witten Depression Scale Answer Date Recorded Witten Depression Scale Total 2 12/22/2024 The thought of harming myself has occurred to me . Never 12/22/2024 Abuse Screen Answer Date Recorded Feels Unsafe at Home or Work/School no 02/16/2025 Feels Threatened by Someone no 01/26 Does Anyone Try to Keep You From Having Contact with Others or Doing Things Outside Your Home? no 02/16/2025 Physical Signs of Abuse Present no 02/16/2025 Housing Stability Answer Date Recorded Current Living Arrangements home 11/25 Potentially Unsafe Housing Conditions none 12/10/2024 Family and Community Support Answer Jovanni e Recorded If for any reason you need h elp with day-to-day activities such as bathing, preparing meals, shopping, managing finances, etc., do you get the help you need? I don't need any help 12/10/2024 How often do you feel lonely or isolated from those around you? Never 12/10/2024 Employment Answer Date Recorded Do you want help finding or keeping work or a job? I do not need or want help 12/10/2024 Disabilities Answer Date Recorded Difficulty Concentrating, Remembering or Making Decisions no 12/10/2024 Difficulty Managing Errands Independently no 12/10/2024 Education Answer Date Recorded Do you want help with school or training? For example, starting or completing job training or getting a high school diploma, GED or equivalent No 12/10/2024 Preferred Language Nepalese 12/10/2024 PHQ-2 Answer Date Recorded Patient Health Questionnaire-2 Score 0 12/10/2024 Education Answer Date Recorded What is the highest level of school you have completed or the highest degree you have received? High school graduate 12/09/2024 Comments No Sex and Gender Information Value Date Recorded Sex Assigned at Not on file Legal Sex Female 1:40 PM EDT Gender Identity Not on file Sexual Orientation Not on file documented as of this encounter Miscellaneous Notes * Telephone Encounter - Mahi Romero RegSched Rep - 03/08/2025 2:08 PM EDT Hub staff attempted to follow warm transfer process and was unsuccessful Caller: Maia Kovacs Relationship to patient: Self Best call back number: [phone] Patient is needing: PT HAD A CT OF LIVER COMPLETED ON 02/13 AND AGAIN ON 02/23 SHOWING ENLARGED, PLEASE CALL AND ADVISE. documented in this encounter Plan of Treatment Upcoming Encounters Date Type Department Care Team (Late st Contact Info) Description 05/31/2025 3:00 PM EDT Office Visit [facility] [address] [place] [phone] Leah Castillo, FERNANDO [address] [address] 06/28/2025 3:45 PM EDT Office Visit [facility] [address] [facility] [address] [place] [phone] Aminata Nassar MD [address] [address] documented as of this encounter Visit Diagnoses Not on filedocumented in this encounter Additional Health Concerns Infection Onset Date Last Indicated Resolved Time COVID (History) Comment:Per regional snout puller for [facility], 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 The last day before reporting a new confirmed COVID-19 would be 12/08/20. -Alida Badna RN 09/09/2020 12/25/2020 documented as of this encounter Care Teams Director Of Institutional Giving Relationship Specialty Start Date End Date Michaela Sousa APRN [address] [place] [id number] PCP - General Internal Medicine 09/04/24 documented as of this encounter
--- OUTSIDE RECORDS SUMMARY | 2025-04-25 14:57 | XMS_ITS | Encounter Summary ---
Author Organization [email or web address] ([place], [place], [place], [place]) Address [address] [place] [address] Care Team Providers Care Sewing Machine Attachment Tester Name Role Phone Michaela Sousa APRN Primary Care Provider Encounter Details Date Type Department Care Team (Late st Contact Info) Description 03/11/2022 Transcribed Document [facility] Family Medicine [address] [place] [address] ProviderTeena MD [address] [place] [address] Social History Tobacco Use Types Packs/Day Years Used Date Smoking Tobacco: Never Assessed PRAPARE - Transportation Answer Date Re corded In the past 12 months, has l ack of transportation kept you from medical appointments or from getting medications? No 11/29/2022 Lack of Transportation (Non-Medical) Not on file 11/29/2022 Food Insecurity Answer Date Recorded Food run out past 12 months Not on file 09/27 Food did not last past 12 months Not on file 10/15/2023 Employment Answer Date Recorded Help finding and keeping a job Not on file 0 10/15/2023 Family and Community Support Answer Jovanni e Recorded Help with Day to Day Activities Not on file 10/15/2023 Feeling Lonely or Isolated Not on file 10/15 Educational Attainment Answer Date Tommie rded Speak language other than Occitan at home Not on file 10/15/2023 Want help with school or training Not on file 10/15/2023 Substance Use Answer Date Recorded Used prescription meds for non-medical reasons N ot on file 10/15/2023 Used illegal drugs past 12 months Not on file 10/15/2023 Comments Unknown Sex and Gender Information Value Date Recorded Sex Assigned at Not on file Legal Sex Female 4:34 PM CDT Gender Identity Not on file Sexual Orientation Not on file COVID-19 Exposure Response Date Recorded In the last 10 days, have yo u been in contact with someone who was confirmed or suspected to have Coronavirus/COVID-19? No / Unsure 11/11/2022 6:26 AM EST documented as of this encounter Miscellaneous Notes * Cerner Conversion Note - Historical Provider, - 03/11/2022 2:19 PM CDT [facility] OR PACU Summary Primary Physician: Pavel ADAM MD-OBG Finalized Date/Time: 03/11/22 16:23:31 Pt. Name: MAIA KOVACS JOVON [place]./Sex: 1990 Female Med Rec #: [id number] Physician: Pavel ADAM MD-OBG Financial #: [id number] Pt. Type: O Room/Bed: [facility] Admit/Disch: 03/11/22 09:42:00 - Institution: [facility] OR PACU Case Times Entry 1 In PACU I 03/11/22 15:00:00 Ready for PACU 03/11/22 16:12:00 Discharge Discharge from PACU 03/11/22 16:12:00 I Last Modified By: Mia Min RN 03/11/22 16:23:07 [facility] OR PACU Case Times Audit 03/11/22 16:23:07 Trench Trimmer Fine: CARRIHOWIE Modifier: CARRIEC <+> 1 Ready for PACU Discharge <+> 1 Discharge from PACU I Finalized By: Mia Min RN Document Signatures Signed By: Mia Min RN 03/11/22 16:23 Electronically signed by Chaparrita [facility] Conversion Patient Access Coordinator Cerner at 01/09/2023 10:43 AM CDT documented in this encounter Plan of Treatment Not on file documented as of this encounter Visit Diagnoses Not on filedocumented in this encounter Care Teams Sewing Machine Attachment Tester Relationship Specialty Start Date End Date Michaela Sousa APRN [address] [place] [address] PCP - General Nurse Practitioner 11/09/22 11/09/22 documented as of this encounter
--- OUTSIDE RECORDS SUMMARY | 2025-04-25 14:57 | XMS_ITS | Encounter Summary ---
Author Organization [employer] ([place], [place], [place], [place]) Address [address] [place] [address] Care Team Providers Care Traveling Sales Representative Name Role Phone LarsMichaela FERNANDO Primary Care Provider Encounter Details Date Type Department Care Team (Late st Contact Info) Description 03/11/2022 Transcribed Document [facility] [address] [place] [address] Provider, Sree Dickinson MD Social History Tobacco Use Types Packs/Day Years [...] Date Tommie rded Speak language other than Honduran at home Not on file 10/15/2023 Want [...] Miscellaneous Notes * Cerner Conversion Note - [facility] Historical Provider, - 03/11/2022 5:29 PM EDT [address] [id number] MAIA KOVACS :1990 Visit Time:03/11/2022 What to do next Your Diagnosis Other specified dyspareunia, Other specified dyspareunia Instructions From Your Care Team Vaginal rest until follow up appointment. You have prescriptions to chicken picker at your local pharmacy. Follow-Up Appointments Follow Up with Pavel ADAM MD-OBG When Comments Keep previously scheduled appointment Where: [address] [facility] [address] [place] [address]- [phone] Medications What How Much When Instructions Next Dose melatonin (melatonin 10 mg oral tablet) 1 Tablet(s) Oral Once a day (at bedtime) as needed for as needed for insomnia pantoprazole (Protonix 40 mg oral delayed release tablet) 1 Tablet(s) Oral Every Day Take your medications faithfully. Do NOT skip medication. Do NOT stop taking medications without the direction of a physician. Carry a list of your medications with you at all times, and take this medication list with you to your first follow up visit. Report any side effects. Avoid herbal remedies unless discussed with your physician. As part of your treatment plan, your physician may have prescribed a limited course of a controlled substance. This medication may be given to help people with moderate or severe pain or for other medical conditions, but there are risks involved with treatment. Common side effects may include nausea, constipation, drowsiness, sweating, itching, dry mouth, and rash. More serious side effects may include cognitive and motor impairment, like problems with thinking, concentrating, alertness, and movement (e.g. slowed reflexes), and driving and operating heavy machinery can be dangerous. It is important for you to talk to your physician if you have these side effects or questions. These controlled substances can produce physical dependence and be habit-forming if taken for an extended period of time, which means that the body has gotten used to them and may experience withdrawal symptoms if they are abruptly stopped. Withdrawal symptoms can include runny nose, sweating, goose bumps, diarrhea, abdominal cramping, rapid heartbeat, difficulty sleeping, and nervousness. Please dispose of unused and medications per pharmacy guidance. Education Materials Endometriosis Endometriosis is a condition in which a tissue similar to the endometrium grows in places outside the uterus. The endometrium is a tissue that forms the lining of the uterus. This tissue can grow in the organs that create the eggs (ovaries), the tubes that carry the eggs to the uterus (fallopian tubes), the vagina, and the bowel. This tissue most often grows on the ovaries and inner lining of the pelvic cavity (peritoneum). When the uterus sheds the endometrium every menstrual cycle, there is bleeding wherever these types of tissue are located. This can cause pain because blood is irritating to tissues that are not normally exposed to it. Endometriosis can also make it harder for a woman to get . What are the causes? The cause of this condition is not known. What increases the risk? The following factors may make you more likely to develop this condition: ??? Having a family history of endometriosis. ??? Having never given . ??? Starting your period at 10 years of age or younger. What are the signs or symptoms? Often, there are no symptoms of this condition. If you do have symptoms, they may: ??? Vary depending on where the abnormal tissue is growing. ??? Occur during your menstrual period (most often) or at the middle of your cycle. ??? Come and go. You may have no symptoms during some months. ??? Stop when you no longer have your monthly periods (menopause). Symptoms may include: ??? Pain in the area between your hip bones (pelvis). ??? Heavier bleeding during periods. ??? Menstrual periods that happen more than once a month. ??? Pain during sex. ??? Pain in the back or abdomen. ??? Painful bowel movements. ??? Not being able to get . How is this diagnosed? This condition is diagnosed based on your symptoms and a physical exam. You may have tests, such as: ??? Blood tests and urine tests to help rule out other causes. ??? Ultrasound to look for tissues that are not normal. This is often done over your skin. It is sometimes done through the vagina (transvaginal). ??? X-ray of the lower bowel (barium enema). ??? CT scan. ??? MRI. To confirm the diagnosis, your health care provider may use a device with a small camera to check tissue inside your abdomen (laparoscopy). Abnormal tissue may be removed and checked in a lab (biopsy). How is this treated? There is no cure for this condition. Treatment focuses on controlling your symptoms. The type of treatment also depends on whether you want to become in the future. This condition may be treated with: ??? Medicines. These may include: ? Medicines to relieve pain, including NSAIDs such as ibuprofen. ? Hormone therapy. This uses artificial hormones to slow the growth of the abnormal tissue. This may include hormonal control, such as pills. ??? Surgery to remove the abnormal tissue. During surgery: ? Tissue may be removed using a laparoscope and a laser (laparoscopic laser treatment). ? The fallopian tubes, uterus, and ovaries may be removed (hysterectomy). This is done in very severe cases. Follow these instructions at home: ??? Get regular exercise. ??? Limit alcohol use. ??? Eat a balanced diet. ??? Avoid caffeine. ??? Take efdr-iwy-phxxuik and prescription medicines only as told by your health care provider. ??? Keep all follow-up visits as told by your health care provider. This is important. Where to find more information ??? [employer]: https://www.acog.org/ ??? Office on Women's Health: https://www.womenshealth.gov/ Contact a health care provider if: ??? You are having new pain or trouble controlling pain. ??? You have problems getting . ??? You have a fever. Get help right away if you have: ??? Severe pain that does not get better with medicine. ??? Severe nausea and vomiting, or if you cannot eat or drink without vomiting. ??? Pain that affects your abdomen only on the lower, right side. ??? Pain in your abdomen that gets worse. ??? Swelling in your abdomen. ??? Blood in your stool (feces). Summary ??? Endometriosis is a condition in which a tissue similar to the endometrium grows in places outside the uterus. The endometrium is a tissue that forms the lining of the uterus. ??? The cause of this condition is not known. ??? This condition may be treated with medicines to relieve pain, hormone therapy, or surgery. ??? If you have this condition, get regular exercise, limit alcohol use, and avoid caffeine. ??? Get help right away if you have severe pain that does not get better with medicine, or if you have severe nausea and vomiting or blood in your stool. This information is not intended to replace advice given to you by your health care provider. Make sure you discuss any questions you have with your health care provider. Document Revised: 10/30/2020 Document Reviewed: 10/30/2020 [employer] Patient Education ?? 2020 [employer] Diagnostic Laparoscopy, Care After This sheet gives you information about how to care for yourself after your procedure. Your health care provider may also give you more specific instructions. If you have problems or questions, contact your health care provider. What can I expect after the procedure? After the procedure, it is common to have: ??? Mild discomfort in the abdomen. ??? Sore throat. Women who have laparoscopy with pelvic examination may have mild cramping and fluid coming from the vagina for a few days after the procedure. Follow these instructions at home: Medicines ??? Take cftg-iwb-cqvudkj and prescription medicines only as told by your health care provider. ??? If you were prescribed an antibiotic medicine, take it as told by your health care provider. Do not stop taking the antibiotic even if you start to feel better. Driving ??? Do not drive for 24 hours if you were given a medicine to help you relax (sedative) during your procedure. ??? Do not drive or use heavy machinery while taking prescription pain medicine. Bathing ??? Do not take baths, swim, or use a hot tub until your health care provider approves. You may take showers. Incision care ??? Follow instructions from your health care provider about how to take care of your incisions. Make sure you: ? Wash your hands with soap and water before you change your bandage (dressing). If soap and water are not available, use hand drywall sander. ? Change your dressing as told by your health care provider. ? Leave stitches (sutures), skin glue, or adhesive strips in place. These skin closures may need to stay in place for 2 weeks or longer. If adhesive strip edges start to loosen and curl up, you may trim the loose edges. Do not remove adhesive strips completely unless your health care provider tells you to do that. ??? Check your incision areas every day for signs of infection. Check for: ? Redness, swelling, or pain. ? Fluid or blood. ? Warmth. ? Pus or a bad smell. Activity ??? Return to your normal activities as told by your health care provider. Ask your health care provider what activities are safe for you. ??? Do not lift anything that is heavier than 10 lb (4.5 kg), or the limit that you are told, until your health care provider says that it is safe. General instructions ??? To prevent or treat constipation while you are taking prescription pain medicine, your health care provider may recommend that you: ? Drink enough fluid to keep your urine pale yellow. ? Take ctao-wlr-gjdekhx or prescription medicines. ? Eat foods that are high in fiber, such as fresh fruits and vegetables, whole grains, and beans. ? Limit foods that are high in fat and processed sugars, such as fried and sweet foods. ??? Do not use any products that contain nicotine or tobacco, such as cigarettes and e-cigarettes. If you need help quitting, ask your health care provider. ??? Keep all follow-up visits as told by your health care provider. This is important. Contact a health care provider if: ??? You develop shoulder pain. ??? You feel lightheaded or faint. ??? You are unable to pass gas or have a bowel movement. ??? You feel nauseous or you vomit. ??? You develop a rash. ??? You have redness, swelling, or pain around any incision. ??? You have fluid or blood coming from any incision. ??? Any incision feels warm to the touch. ??? You have pus or a bad smell coming from any incision. ??? You have a fever or chills. Get help right away if: ??? You have severe pain. ??? You have vomiting that does not go away. ??? You have heavy bleeding from the vagina. ??? Any incision opens. ??? You have trouble breathing. ??? You have chest pain. Summary ??? After the procedure, it is common to have mild discomfort in the abdomen and a sore throat. ??? Check your incision areas every day for signs of infection. ??? Return to your normal activities as told by your health care provider. Ask your health care provider what activities are safe for you. This information is not intended to replace advice given to you by your health care provider. Make sure you discuss any questions you have with your health care provider. Document Revised: 08/26/2018 Document Reviewed: 03/09/2018 [employer] Patient Education ?? 2020 [employer]. General Anesthesia, Adult, Care After This sheet gives you information about how to care for yourself after your procedure. Your health care provider may also give you more specific instructions. If you have problems or questions, contact your health care provider. What can I expect after the procedure? After the procedure, the following side effects are common: ??? Pain or discomfort at the IV site. ??? Nausea. ??? Vomiting. ??? Sore throat. ??? Trouble concentrating. ??? Feeling cold or chills. ??? Feeling weak or tired. ??? Sleepiness and fatigue. ??? Soreness and body aches. These side effects can affect parts of the body that were not involved in surgery. Follow these instructions at home: For the time period you were told by your health care provider: ??? Rest. ??? Do not participate in activities where you could fall or become injured. ??? Do not drive or use machinery. ??? Do not drink alcohol. ??? Do not take sleeping pills or medicines that cause drowsiness. ??? Do not make important decisions or sign legal documents. ??? Do not take care of children on your own. Eating and drinking ??? Follow any instructions from your health care provider about eating or drinking restrictions. ??? When you feel hungry, start by eating small amounts of foods that are soft and easy to digest (bland), such as toast. Gradually return to your regular diet. ??? Drink enough fluid to keep your urine pale yellow. ??? If you vomit, rehydrate by drinking water, juice, or clear broth. General instructions ??? If you have sleep apnea, surgery and certain medicines can increase your risk for breathing problems. Follow instructions from your health care provider about wearing your sleep device: ? Anytime you are sleeping, including during daytime naps. ? While taking prescription pain medicines, sleeping medicines, or medicines that make you drowsy. ??? Have a responsible adult stay with you for the time you are told. It is important to have someone help care for you until you are awake and alert. ??? Return to your normal activities as told by your health care provider. Ask your health care provider what activities are safe for you. ??? Take mejb-hlv-srufxhh and prescription medicines only as told by your health care provider. ??? If you smoke, do not smoke without supervision. ??? Keep all follow-up visits as told by your health care provider. This is important. Contact a health care provider if: ??? You have nausea or vomiting that does not get better with medicine. ??? You cannot eat or drink without vomiting. ??? You have pain that does not get better with medicine. ??? You are unable to pass urine. ??? You develop a skin rash. ??? You have a fever. ??? You have redness around your IV site that gets worse. Get help right away if: ??? You have difficulty breathing. ??? You have chest pain. ??? You have blood in your urine or stool, or you vomit blood. Summary ??? After the procedure, it is common to have a sore throat or nausea. It is also common to feel tired. ??? Have a responsible adult stay with you for the time you are told. It is important to have someone help care for you until you are awake and alert. ??? When you feel hungry, start by eating small amounts of foods that are soft and easy to digest (bland), such as toast. Gradually return to your regular diet. ??? Drink enough fluid to keep your urine pale yellow. ??? Return to your normal activities as told by your health care provider. Ask your health care provider what activities are safe for you. This information is not intended to replace advice given to you by your health care provider. Make sure you discuss any questions you have with your health care provider. Document Revised: 05/29/2021 Document Reviewed: 12/26/2020 Else[employer] Patient Education ?? 2020 [employer] Emergency Awareness and Preventative Care STROKE is an EMERGENCY Every Minute Counts Act FAST and Check for these signs: FACE Does the face look uneven? ARM Does one arm drift down? SPEECH Does their speech sound strange? TIME Call at any sign of stroke Stroke Risk Factors Atrial Fibrillation (irregular heartbeat) Diabetes Family history of stroke Heart Disease Heavy alcohol use High Blood Pressure High Cholesterol Physical inactivity and obesity Smoking Cigarette Smoking The facts are clear, cigarette smoking will shorten your life. Smoking can cause many illnesses along the way. As a healthcare provider, we recommend that you stop smoking. Assistance with quitting is available by contacting 8-977-OELKNOW. This is a free resource providing counseling, support, and referral. Or you may contact your personal physician. National Suicide Prevention Lifeline: The National Suicide Prevention Lifeline is a national network of local crisis centers that provides free and confidential emotional support to people in suicidal crisis or emotional distress 24 hours a day, 7 days a week. Don't Wait! Stop a Heart Attack Before it Starts What is a heart attack? A heart attack is damage or to a part of the heart from severely decreased or lack of blood flow to the heart. Over time, arteries can become narrow from the buildup of fat and cholesterol, which is called plaque. The plaque can rupture causing a blood clot to form. When the blood clot forms, the artery can become severely narrowed or completely blocked, causing a heart attack. Heart attack is the leading cause of in the [place]. 85% of muscle damage occurs within the first 2 hours. Delay in the recognition of heart attack symptoms increases the chances of . Know the early symptoms of a heart attack: Nausea Feeling of fullness in chest Jaw Pain Pain that travels down one or both arms Fatigue/being tired Anxiety Back Pain Chest pressure, squeezing, or discomfort Shortness of breath Sweating, or a cold sweat Feeling of impending doom There are unusual signs of a heart attack, too! Women, the elderly, and diabetics may present with atypical symptoms: Fainting/dizziness Weakness Confusion Risk Factors for a Heart Attack Some heart disease risk factors, such as age and family history, cannot be changed. Others, like smoking and lack of exercise, can be changed. Smoking High Cholesterol High Blood Pressure Family History Obesity Age Gender (Males are at higher risk) Lack of Exercise Diabetes Diet Stress Excessive Alcohol Intake If you or someone you know is experiencing the signs and symptoms of a heart attack, DON???T DELAY. Call immediately and seek help. If someone collapses, perform CPR! Do not attempt to drive if you are having symptoms of heart attack. Hands-Only CPR Why Hands-Only CPR? Hands-Only CPR has been shown to be as effective as conventional CPR for cardiac arrests that occur outside of a hospital. Survival depends on immediately receiving CPR from someone nearby. How do you perform Hands-Only CPR? There are two easy steps: Call if you see a teen or adult collapse Push hard and fast in the center of the chest at a beat of 100 beats per minute. Save a life! 4 WAYS TO GET AHEAD OF SEPSIS SEPSIS is a MEDICAL EMERGENCY. Time matters! Infections put you and your family at risk for a life-threatening condition called sepsis. Sepsis is the body's extreme response to an infection. It is life-threatening, and without timely treatment, sepsis can rapidly lead to tissue damage, organ failure, and . Sepsis happens when an infection you already have-in your skin, lungs, urinary tract or somewhere else-triggers a chain reaction throughout your body. 1 PREVENT INFECTIONS Take good care of chronic conditions. Talk to your doctor about getting the recommended vaccines. 2 PRACTICE GOOD HYGIENE Wash your hands frequently. Keep cuts or open sores clean and covered until they are healed. 3 KNOW THE SYMPTOMS Confusion or disorientation Shortness of breath High heart rate Fever, shivering, or feeling very cold Extreme pain or discomfort Clammy or sweaty skin 4 ACT FAST Get medical care IMMEDIATELY if you suspect sepsis or if you have an infection that is not getting better or is getting worse. To learn more about sepsis and how to prevent infections, visit www.cdc.gov/sepsis. Test Results Laboratory or Other Results This Visit (last charted value for your 03/11/2022 visit) Hematology 03/11/2022 11:21 AM WBC: 5.7 K/uL -- Normal range between ( 3.9 and 10.0 ) RBC: 3.59 Million/uL -- Normal range between ( 3.93 and 5.22 ) Hct: 27.6 % -- Normal range between ( 34.1 and 44.9 ) Hgb: 8.5 Gram/dL -- Normal range between ( 11.2 and 15.7 ) Platelet Count: 323 K/uL -- Normal range between ( 163 and 369 ) MCH: 23.7 pg -- Normal range between ( 25.6 and 32.2 ) MCHC: 30.8 Gram/dL -- Normal range between ( 32.3 and 36.5 ) MCV: 76.9 fL -- Normal range between ( 79.0 and 94.8 ) Slide Review: No Eos %: 4.4 % -- Normal range between ( 1.0 and 7.0 ) [place] #: 0.58 K/uL -- Normal range between ( 0.24 and 0.82 ) Eos #: 0.25 K/uL -- Normal range between ( 0.04 and 0.54 ) [place] %: 10.2 % -- Normal range between ( 4.7 and 12.5 ) Baso %: 0.5 % -- Normal range between ( 0.0 and 1.0 ) Baso #: 0.03 K/uL -- Normal range between ( 0.01 and 0.08 ) RDW: 16.0 % -- Normal range between ( 11.6 and 14.4 ) Neut %: 60.2 % -- Normal range between ( 34.0 and 71.0 ) Neut #: 3.44 K/uL -- Normal range between ( 1.56 and 6.13 ) Lymph %: 24.3 % -- Normal range between ( 19.3 and 53.0 ) Lymph #: 1.39 K/uL -- Normal range between ( 1.18 and 3.74 ) MPV: 9.0 fL -- Normal range between ( 9.4 and 12.4 ) IG#: 0 x10(3)/uL IG%: 0 % -- Normal range between ( 0 and 1 ) General Chemistry 03/11/2022 11:21 AM Potassium Level: 3.8 mmol/L -- Normal range between ( 3.5 and 5.1 ) Endocrinology 03/11/2022 11:21 AM HCG Urine Qualitative: Negative Patient Name:MAIA KOVACS I have received this information and was given the opportunity to ask questions. Patient/Iron Handler Name: Patient/Iron Handler Signature: Relationship to Patient: Clinician/Hospital Iron Handler Signature: Date: documented in this encounter Plan of Treatment Not on file documented as of this encounter Visit Diagnoses Not on filedocumented in this encounter Care Teams Traveling Sales Representative Relationship Specialty Start Date End Date Michaela Sousa, [employer]OWRO[employer] EXECUTIVE DIRECTOR [address] [address] PCP - General Nurse Practitioner 11/09/22 11/09/22 documented as of this encounter
--- OUTSIDE RECORDS SUMMARY | 2025-04-25 14:57 | XMS_ITS | Clinical Summary ---
Author Organization [facility] Address [address], [address] [place] [address] Care Team Providers Care Binding Cutter Synthetic Cloth Name Role Phone Carmen Juan APRN - WALL CRANE OPERATOR Primary Care Provider Allergies Active Allergy Reactions Criticality Noted Date Comments Celecoxib 06/13/2019 Coconut (Cocos Nucifera) Anaphylaxis High 03/02/2018 Dicyclomine 12/09/2018 Latex Hives 03/02/2018 Pineapple Anaphylaxis High 03/02/2018 Metoclopramide Other (See Comments) 10/07/2018 tremors Sulfa Antibiotics Anaphylaxis High 03/02/2018 Medications omeprazole 20 MG EC tablet Take 40 mg by mouth 2 times daily Active Co-Enzyme Q10 100 MG CAPS Take 400 mg by mouth Daily Active Amino Acids (L-CARNITINE PO) Take by mouth Active Prochlorperazine Maleate (COMPAZINE PO) Take 5 mg by mouth every 6 hours as needed Active albuterol sulfate HFA 108 (90 Base) MCG/ACT inhaler Inhale 2 puffs into the lungs 8 Active diphenhydrAMINE (BENADRYL) 25 MG capsule Take 50 mg by mouth nightly as needed for Sleep Active ondansetron (ZOFRAN-ODT) 4 MG disintegrating tablet Take 8 mg by mouth every 4 hours as needed for Nausea or Vomiting 8 Active promethazine (PHENERGAN) 12.5 MG tablet Take 25 mg by mouth every 4 hours as needed for Nausea 8 Active Ferrous Sulfate (IRON) 325 (65 Fe) MG TABS Take 325 mg by mouth daily Active spironolactone (ALDACTONE) 100 MG tablet Take 150 mg by mouth daily Active vitamin B-12 (CYANOCOBALAMIN) 1000 MCG tablet Take 1,000 mcg by mouth daily Active scopolamine (TRANSDERM-SCOP) transdermal patch Place 1 patch onto the skin every 72 hours Active QUEtiapine (SEROQUEL) 200 MG tablet Take 200 mg by mouth nightly Active diclofenac sodium 1 % GEL apply 2 grams to affected area every 6 hours 0 9 Active Melatonin 10 MG TABS Take 10 mg by mouth Active promethazine (PHENERGAN) 25 MG tablet Take 1 tablet by mouth every 6 hours as needed for Nausea 20 tablet 9 Active cariprazine hcl (VRAYLAR) 3 MG CAPS capsule Take 3 mg by mouth daily Active ondansetron (ZOFRAN) 4 MG tablet Take 1 tablet by mouth 3 times daily as needed for Nausea or Vomiting 15 tablet 0 Active Active Problems Problem Noted Date Diagnosed Date Intractable abdominal pain 12/10/2018 Abdominal pain 12/10/2018 Iron deficiency anemia 10/07/2018 Chest pain 04/20/2018 Palpitations 04/20/2018 Generalized edema 04/20/2018 Immunizations Immunization Administration Dates Next Due Influenza Virus Vaccine 06/07/2018 Family History Medical History Relation Name Comments High Blood Pressure Father Heart Failure Sister Relation Name Status Comments Father Alive Sister Alive Social History Tobacco Use Types Packs/Day Years Used Date Smoking Tobacco: Never Smokeless Tobacco: Never Alcohol Use Standard Drinks/Week Comments No 0 (1 standard drink = 0.6 oz pur e alcohol) Comments Unknown Sex and Gender Information Value Date Recorded Sex Assigned at Not on file Legal Sex Female 10:03 PM EDT Gender Identity Not on file Sexual Orientation Not on file Last Filed Vital Signs Vital Sign Reading Time Taken Comments Blood Pressure 112/65 10/31/2020 5:12 PM EST Pulse 87 10/31/2020 5:12 PM EST Temperature 36.9 C (98.4 F) 10/31/2020 1:46 PM EST Respiratory Rate 18 10/31/2020 5:12 PM EST Oxygen Saturation 100% 10/31/2020 5:12 PM EST Inhaled Oxygen Concentration - - Weight 70.8 kg (156 lb) 10/31/2020 1:46 PM EST Height 170.2 cm (5' 7 ) 10/31/2020 1:46 PM EST Body Mass Index 24.43 10/31/2020 1:46 PM EST Plan of Treatment Not on file Medical Devices Implanted Type Area Landscape Architect Device Identifier Shelf Expiration Date Model / Serial / Lot Jaw Screw Screw/Pl ate/Nail /Alban Left: Mandible Description:MRI compatible Insurance [facility] [place] [id number] Advance Directives * Full Code (Latest Code Status on File) Date Activated Date Inactivated Comments 12/10/2018 3:14 AM 12/10/2018 9:58 PM * Full Code Date Activated Date Inactivated Comments 10/08/2018 12:42 AM 10/09/2018 3:48 PM Care Teams Binding Cutter Synthetic Cloth Relationship Specialty Start Date End Date Carmen Juan APRN - NP [facility] [address] [facility] [address] [place] [address] PCP - General 07/22/20
--- OUTSIDE RECORDS SUMMARY | 2025-04-25 14:57 | XMS_ITS | Clinical Summary ---
Author Organization [employer] ([place], [place], [place], [place]) Address [address] [place] [address] Care Team Providers Care Flower Planter Name Role Phone Unavailable Primary Care Provider Unavailabl e Allergies Active Allergy Reactions Criticality Noted Date Comments Celecoxib Anaphylaxis High 03/31/2019 Celebrex; tolerates ibuprofen, ketorolac Celebrex; tolerates ibuprofen, ketorolac Celebrex; tolerates ibuprofen, ketorolac Celebrex; tolerates ibuprofen, ketorolac Coconut Anaphylaxis High 01/10/2018 Coconut Oil Anaphylaxis High 12/09/2017 Ibuprofen Other (See Comments) Low 07/25/2022 GI Bleeding GI Bleeding Iron Anaphylaxis High 11/09/2022 Latex Hives,Rash High 12/09/2017 Latex gloves Latex gloves Latex gloves Latex gloves Latex gloves Latex gloves Pineapple Anaphylaxis High 11/29/2022 Sulfa (Sulfonamide Antibiotics) Anaphylaxis High 11/11/2022 Medications gabapentin (NEURONTIN) 300 MG capsule 300 mg. 08/17/2022 Active omeprazole 20 mg TbEC Take 40 mg by mouth. Active Benadryl Allergy 25 mg tablet Take 25 mg by mouth every 8 (eight) hours as needed. 09/30/2022 Active escitalopram oxalate (LEXAPRO) 20 MG tablet Take 20 mg by mouth nightly. 10/14/2022 Active hydrOXYzine (ATARAX) 25 MG tablet Take 25 mg by mouth nightly. 10/14/2022 Active ferrous sulfate 325 (65 FE) MG tablet Take 1 tablet by mouth daily with breakfast. 05/19/2022 Active vitamin B complex TbER Take 1 tablet by mouth daily. Active Active Problems Problem Noted Date Diagnosed Date Seizure PONV (postoperative nausea and vomiting) Endometriosis Asthma Acid reflux Adrenal crisis Social History Tobacco Use Types Packs/Day Years Used Date Smoking Tobacco: Never Smokeless Tobacco: Never Alcohol Use Standard Drinks/Week Comments Never 0 (1 standard drink = 0.6 oz pur e alcohol) PRAPARE - Transportation Answer Date Re corded [...] Date Tommie rded Speak language other than American at home Not on file 10/15/2023 Want [...] Sign Reading Time Taken Comments Blood Pressure 103/72 11/29/2022 6:37 AM EST Pulse 69 11/29/2022 6:37 AM EST Temperature 37 C (98.6 F) 11/29/2022 6:37 AM EST Respiratory Rate 18 11/29/2022 6:37 AM EST Oxygen Saturation 98% 11/11/2022 10:22 AM EST Inhaled Oxygen Concentration - - Weight 72.6 kg (160 lb 0.9 oz) 11/29/2022 6:37 A M EST Height 175.3 cm (5' 9 ) 11/29/2022 6:37 AM EST Body Mass Index 23.64 11/29/2022 6:37 AM EST Plan of Treatment Health Maintenance Due Date Last Done Comments Depression Screening (12+) 2004 HIV Screening 2007 Hepatitis C Screening 2010 DTAP/TDAP/TD VACCINES (1 - Tdap) 2011 Pneumococcal Vaccine: 0-49 Y ears (1 of 2 - PCV) 2011 Pap Smear 2013 Tobacco Cessation Counseling and Screening (12+) 11/11/2023 11/11/2022 COVID-19 VACCINE ( - season) 05/28/202407/2021, 04/16/2021 Influenza Vaccine (#1) 2025 05/28/2013 Insurance BLUE CROSS/BLUE SHIELD Advance Directives For more information, please contact: [phone] * Full Code (Latest Code Status on File) Date Activated Date Inactivated Comments 11/11/2022 7:28 AM 11/11/2022 12:16 PM
--- OUTSIDE RECORDS SUMMARY | 2025-04-25 14:57 | XMS_ITS | Encounter Summary ---
Author Organization [place] [address] Care Team Providers Care Registered Vascular Technologist (Rvt) Name Role Phone Radha Ordaz LPN Unavailable Unav ailable Encounter Details Date Type Department Care Team (Late st Contact Info) Description 11/02/2018 Lab Requisition [facility] 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 Answer Date of Assessment Author No 10/07/2018 4:43 PM Vicki Rader LPN * Is the person blind or does he/she have serious difficulty seeing even when wearing glasses? Answer Date of Assessment Author No 10/07/2018 4:43 PM Vicki Rader LPN * Does this person have serious difficulty walking or climbing stairs? Answer Date of Assessment Author No 10/07/2018 4:43 PM Vicki Rader LPN * Does this person have difficulty dressing or bathing? Answer Date of Assessment Author No 10/07/2018 4:43 PM Vicki Rader LPN * Because of a physical, mental or emotional condition, does this person have difficulty doing errands alone such as visiting a doctor's office or shopping? Answer Date of Assessment Author No 10/07/2018 4:43 PM Vicki Rader LPN documented as of this encounter Mental Status * Because of a physical, mental or emotional condition, does this person have serious difficulty concentrating, remembering or making decisions? Answer Entry Date Author No 10/07/2018 4:43 PM Vicki Rader LPN documented in this encounter Plan of Treatment Not on file documented as of this encounter Goals Goal Patient Goal Type Associated Problems Recent Progress Patient-Stated? Author Maintain a healthy diet, exercise regularly and maintain an ideal body weight General No Vicki Story LPN documented as of this encounter Procedures Procedure Name Priority Date/Time Associated Diagnosis Comments CORTISOL 60 MINUTES Timed 11/02/2018 9 :45 AM EST Other specified abnormal findings of blood chemistry CORTISOL 30 MINUTES Timed 11/02/2018 9 :15 AM EST Other specified abnormal findings of blood chemistry CORTISOL BASELINE Timed 11/02/2018 8:4 0 AM EST Other specified abnormal findings of blood chemistry CORTISOL BASELINE Timed 11/02/2018 8:4 0 AM EST Other specified abnormal findings of blood chemistry documented in this encounter Results * CORTISOL 60 MINUTES (11/02/2018 9:45 AM EST) Cortisol 60 Min 19.47 mcg/dL 9 5:29 PM EST PREFERRED [facility] Blood VENOUS BLOOD / Unknown 11/02/2018 9:45 AM EST 11/02/2018 4:09 PM EST Narrative [facility] - 11/02/2018 5:29 PM EST Normal Peak : > 20 ug/dl Wendy Emerson MD CHEMISTRY ORDERABLES Fin al Result Performing Organization Address [facility] de Phone Number [facility] [address] [place] [address] , [place] [address] * CORTISOL 30 MINUTES (11/02/2018 9:15 AM EST) Cortisol 30 Min 17.48 mcg/dL 9 5:35 PM EST [facility] Blood VENOUS BLOOD / Unknown 11/02/2018 9:15 AM EST 11/02/2018 4:09 PM EST Narrative [facility] - 11/02/2018 5:35 PM EST Normal Peak : > 20 ug/dl Wendy Emerson MD CHEMISTRY ORDERABLES Fin al Result Performing Organization Address [facility] Phone Number [facility] [address] , [place] [address] * CORTISOL BASELINE (11/02/2018 8:40 AM EST) Cortisol Baseline 10.37 mcg/dL 11/02/2018 5:35 PM EST [facility] Blood VENOUS BLOOD / Unknown 11/02/2018 8:40 AM EST 11/02/2018 4:09 PM EST Narrative [facility] - 11/02/2018 5:35 PM EST Ingestion of jose doses of biotin (>5 mg/day) taken within 8 hours of drawing blood sample can interfere with this immunoassay test. Wendy Emerson MD CHEMISTRY ORDERABLES Fin al Result Performing Organization Address [facility] de Phone Number [facility] [facility] [address] , [place] [address] documented in this encounter Visit Diagnoses Diagnosis Other specified abnormal findings of blood chemistry documented in this encounter Additional Health Concerns Assessment Noted Time PHQ-9 Depression Total Score: 2 10/07/19 19 4:43 PM EST PHQ-2 Depression Total Score: 2 10/07/19 19 4:43 PM EST documented as of this encounter Care Teams Registered Vascular Technologist (Rvt) Relationship Specialty Start Date End Date Radha Ordaz LPN Welfare Case Worker Licensed Practical Nurse 03/15/20 04/02/20 documented as of this encounter
--- OUTSIDE RECORDS SUMMARY | 2025-04-25 14:57 | XMS_ITS | Encounter Summary ---
Author Organization [employer] ([place], [place], [place], [place]) Address [address] [place] [address] Care Team Providers Care Auto Transmission Specialist Name Role Phone Michaela Sousa APRN Primary Care Provider Encounter Details Date Type Department Care Team (Late st Contact Info) Description 03/11/2022 Transcribed Document [facility] [facility] [address] [place] [address] ProviderTeena MD [address] [place] [address] Social History Tobacco Use Types Packs/Day Years [...] Date Tommie rded Speak language other than Lao at home Not on file 10/15/2023 Want [...] Recorded In the last 10 days, have marcos jack been in contact with someone who was confirmed or suspected to have Coronavirus/COVID-19? No / Unsure 11/11/2022 6:26 AM EST documented as of this encounter Miscellaneous Notes * Cerner Conversion Note - Historical Provider, MD - 03/11/2022 2:19 PM CDT [facility] PreOp Summary Primary Physician: Pavel ADAM MD-OBG Finalized Date/Time: 03/11/22 15:11:36 Pt. Name: ROCIO KOVACS JOVON [place]./Sex: 1990 Female Med Rec #: [id number] Physician: Pavel ADAM MD-OBG Financial #: [id number] Pt. Type: O Room/Bed: Admit/Disch: 03/11/22 09:42:00 - Institution: [facility] [place] PreOp Case Times Entry 1 In Preop 03/11/22 10:38:00 Ready for Holding n/a Room Patient Ready for 03/11/22 12:06:00 Surgery Patient Out of Preop 03/11/22 13:55:00 Patient Out of n/a Holding Room Last Modified By: Enedelia Andre RN 03/11/22 15:11:34 [facility] PreOp Case Times Audit 03/11/22 15:11:34 Delivery Room Clerk: EVONNE Modifier: [email or web address] <+> 1 Patient Out of Preop <+> 1 Patient Ready for Surgery Finalized By: Enedelia Andre, RN Document Signatures Signed By: Enedelia Andre RN 03/11/22 15:11 Electronically signed by Chaparrita [facility] Conversion Resident Care Provider Cerner at 01/09/2023 10:50 AM CDT documented in this encounter Plan of Treatment Not on file documented as of this encounter Visit Diagnoses Not on filedocumented in this encounter Care Teams Auto Transmission Specialist Relationship Specialty Start Date End Date Sousa, Michaela, STRUCTURAL STEEL ERECTION SUPERVISOR [address] [phone] PCP - General Nurse Practitioner 11/09/22 11/09/22 documented as of this encounter
--- OUTSIDE RECORDS SUMMARY | 2025-04-25 14:57 | XMS_ITS | Encounter Summary ---
Author Organization [employer] ([place], [place], [place], [place]) Address [address] [place] [address] Care Team Providers Care Purification Operator Helper Name Role Phone Michaela Sousa APRN Primary Care Provider Encounter Details Date Type Department Care Team (Late st Contact Info) Description 03/10/2022 Transcribed Document [facility] [address] [place] [address] ProviderTeena MD [address] [place] [address] Social History Tobacco Use Types Packs/Day Years [...] Date Tommie rded Speak language other than Icelandic at home Not on file 10/15/2023 Want [...] Cerner Conversion Note - Historical Provider, - 03/10/2022 11:32 AM CDT [facility] Authorization Entered On: 03/10/2022 11:34 EDT Performed On: 03/10/2022 11:32 EDT by MELISSA MAURO RN-Utilization Review Primary Insurance Authorization Authorization and Policy Numbers : Insurance 1 Health Plan: ANTHEM HMOPPO Policy Number: [id number] Authorization Number: [id number] Insurance Primary Name : ANDRES ROBERSONOPPO [id number] Authorization Status-Primary : Opo status approv Authorized Service Begin Date-Primary : 03/11/2022 EDT Observation Authorization Nbr-Primary : [id number] Authorization Comments-Primary : ANTHEM HMOPPO approved per letter for outpt Historical Authorization Comments-Primary : No Authorization Comments Found MELISSA MAURO RN-Utilization Review - 03/10/2022 11:32 EDT documented in this encounter Plan of Treatment Not on file documented as of this encounter Visit Diagnoses Not on filedocumented in this encounter Care Teams Purification Operator Helper Relationship Specialty Start Date End Date Michaela Sousa, SALES ACCOUNT COORDINATOR [address] [place] [address] PCP - General Nurse Practitioner 11/09/22 11/09/22 documented as of this encounter
--- OUTSIDE RECORDS SUMMARY | 2025-04-25 14:57 | XMS_ITS | Clinical Summary ---
Author Organization [facility] Address [address] [place] [address] Care Team Providers Care Corporate Logistics Manager Name Role Phone SousaMichaela sheehan Juani KING Primary Care Provider [phone] Allergies Active Allergy Reactions Criticality Noted Date Comments Celecoxib Anaphylaxis High 03/31/2019 Celebrex; tolerates ibuprofen, ketorolac Celebrex; tolerates ibuprofen, ketorolac Coconut (Cocos Nucifera) Anaphylaxis High 12/09/2017 Coconut Fatty Acid Anaphylaxis,Unknown - Patient states they do not know rxn details High 05/13/2015 Ibuprofen Other - please document in the comment field Low 07/25/2022 GI Bleeding Latex Hives,Rash Medium 12/09/2017 Latex gloves Latex gloves Nsaids GI bleeding High 01/20/2023 Pineapple Anaphylaxis High 12/09/2017 Sulfa Drugs Anaphylaxis,Hives,Ot he r - please document in the comment field,Unknown - Patient states they do not know rxn details High 10/09/2013 Medications gabapentin (Neurontin) 300 MG capsule 300 mg 3 (three) times a day. 2 Active cyanocobalamin (Vitamin B-12) 1000 MCG tablet Take 1,000 mcg by mouth. Active ondansetron ODT (Zofran-ODT) 4 MG disintegrating tablet if needed. 2 Active ferrous sulfate 324 (65 Fe) MG EC tablet Take 1 tablet (324 mg total) by mouth 1 (one) time each day with breakfast. Do not crush, chew, or split. 30 tablet 3 Active B Rzrnure-Swyjnu-EX (B Complete) tablet Active pantoprazole (ProtoNix) 20 MG EC tablet Protonix Active acetaminophen (Tylenol 8 Hour) 650 MG ER tablet 3 Active cefdinir (Omnicef) 300 MG capsule TAKE ONE CAPSULE BY MOUTH TWICE DAILY FOR 10 DAYS -- FINISH ALL MEDICINE -- --TAKE WITH FOOD-- 3 Active clindamycin (Clindagel) 1 % gel APPLY TOPICALLY TO THE AFFECTED AREA(S) THREE TIMES DAILY FOR 30 DAYS 3 Active escitalopram (Lexapro) 20 MG tablet Take 20 mg by mouth every night. 3 Active tiZANidine (Zanaflex) 4 MG tablet TAKE ONE TABLET BY MOUTH EVERY TWELVE HOURS NEEDED MAY CAUSE DROWSINESS 3 Active Immunizations Immunization Administration Dates Next Due Influenza, Unspecified 07/02/2017,07/20/2016, Influenza, seasonal, injectable 05/28/2013 Family History Medical History Relation Name Comments Diabetes Father Nolan mosqueda Gout Father Nolan mosqueda Hypertension Father Nolan mosqueda Depression Mother Mother Diabetes Mother Mother Hypothyroidism Mother Mother Obesity Mother Mother Osteoarthritis Mother Mother Thyroid cancer Mother Mother Cardiac disorder Other 1 Colon cancer Other 2 Colon polyps Other 3 Depression Other 4 Diabetes Other 5 Hypertension Other 6 Liver disease Other 7 Lung cancer Other 8 Melanoma Other 9 Asthma Sister Teresa osuna Depression Sister Teresa osuna Relation Name Status Comments Father Nolan mosqueda Mother Mother Other 1 Other 2 Other 3 Other 4 Other 5 Other 6 Other 7 Other 8 Other 9 Sister Teresa souna Social History Tobacco Use Types Packs/Day Years Used Date Smoking Tobacco: Never Smokeless Tobacco: Never Alcohol Use Standard Drinks/Week Comments Not Currently 0 (1 standard drink = 0.6 oz pure alcohol) Alcoholic Drinks/day: Social alcohol use Humiliation, Afraid, Rape, and Kick questionnair e Answer Date Recorded Within the last year, have y ou been afraid of your partner or ex-partner? Patient declined 02/25/2023 Within the last year, have y ou been humiliated or emotionally abused in other ways by your partner or ex-partner? Patient declined 02/25/2023 Within the last year, have y ou been kicked, hit, slapped, or otherwise physically hurt by your partner or ex-partner? Patient declined 02/25/2023 Within the last year, have y ou been raped or forced to have any kind of sexual activity by your partner or ex-partner? Patient declined 02/25/2023 Social Connection and Isolation Panel Answer Date Recorded In a typical week, how many times do you talk on the phone with family, friends, or neighbors? Patient declined 02/25/2023 How often do you get togethe r with friends or relatives? Patient declined 02/25/2023 How often do you attend pentecostal or anabaptist serv ices? Patient declined 02/25/2023 Do you belong to any clubs o r organizations such as pentecostal groups, unions, fraternal or athletic groups, or school groups? Patient declined 02/25/2023 How often do you attend meet ings of the clubs or organizations you belong to? Patient declined 02/25/2023 Are you , , di vorced, , never , or living with a partner? Patient declined 02/25/2023 AUDIT-C Answer Date Recorded Q1: How often do you have a drink containing alc ohol? Patient declined 02/25/2023 Q2: How many drinks containi ng alcohol do you have on a typical day when you are drinking? Patient declined 02/25/2023 Q3: How often do you have si x or more drinks on one occasion? Patient declined 02/25/2023 Overall Financial Resource Strain (CARDIA) Answe r Date Recorded How hard is it for you to pa y for the very basics like food, housing, medical care, and heating? Not hard at all 02/25/2023 PHQ-2 Answer Date Recorded Patient Health Questionnaire-2 Score 4 03/01/2023 [facility] - Occupational Stress Questionnaire Answer Date Recorded Do you feel stress - tense, restless, nervous, or anxious, or unable to sleep at night because your mind is troubled all the time - these days? Patient declined 02/25/2023 Exercise Vital Sign Answer Date Recorde d On average, how many days pe r week do you engage in moderate to strenuous exercise (like a brisk walk)? Patient declined On average, how many minutes do you engage in exercise at this level? Patient declined 02/25/2023 Hunger Vital Sign Answer Date Recorded Within the past 12 months, y ou worried that your food would run out before you got the money to buy more. Patient declined Within the past 12 months, t he food you bought just didn't last and you didn't have money to get more. Patient declined 09/2022 PRAPARE - Transportation Answer Date Re corded In the past 12 months, has l ack of transportation kept you from medical appointments or from getting medications? Patient declined 02/25/2023 In the past 12 months, has l ack of transportation kept you from meetings, work, or from getting things needed for daily living? Patient declined 02/25/2023 Housing Stability Vital Sign Answer Jovanni e Recorded In the last 12 months, was t here a time when you were not able to pay the mortgage or rent on time? Patient refused 02/26/20 23 Number of Places Lived in the Last Year Not on f ile 02/25/2023 In the last 12 months, was t here a time when you did not have a steady place to sleep or slept in a custodial (including now)? Patient refused 02/25/2023 PHQ-9 Answer Date Recorded Patient Health Questionnaire-9 Score 8 03/01/2023 CAGE ASSESSMENT Answer Date Recorded Cage unable to access Not on file 01/20/2023 Maximum number of drinks you had on a given occasion in the last month? 2 drinks 01/20/2023 How many alcoholic Beverages do you typically drink in a week? 0 - 7 per week 01/20/2023 Have you ever felt you should CUT down on your d rinking? 0 01/20/2023 Have you been ANNOYED by peo ple criticizing your drinking? 0 01/20/2023 Have you felt GUILTY about your drinking? 0 01/20/2023 Have you had a drink first t donovan in the morning (EYE-INTERNAL CONTROLS SPECIALIST) to steady your nerves or to get rid of a hangover? 0 01/20/2023 CAGE Questionnaire Score 0 023 PHQ-2A Answer Date Recorded Patient Health Questionnaire-2 Score 4 03/01/2023 Comments No Sex and Gender Information Value Date Recorded Sex Assigned at Female 02/22/2023 11:38 AM EDT Legal Sex Female 6:10 PM EDT Gender Identity Female 02/22/2023 11:38 AM EDT Sexual Orientation Not on file Last Filed Vital Signs Vital Sign Reading Time Taken Comments Blood Pressure 108/72 03/28/2023 12:25 PM EDT Pulse 67 03/28/2023 12:25 PM EDT Temperature 36.9 C (98.4 F) 03/28/2023 12:25 PM EDT Respiratory Rate 18 03/28/2023 12:2 5 PM EDT Oxygen Saturation 99% 03/28/2023 12: 25 PM EDT Inhaled Oxygen Concentration - - Weight 72.5 kg (159 lb 13.3 oz) 03/28/2023 8:35 AM EDT Height 175.3 cm (5' 9 ) 03/01/2023 2:41 PM EDT Body Mass Index 23.6 03/01/2023 2:41 PM EDT Plan of Treatment Health Maintenance Due Date Last Done Comments [facility]-/Child/Adol SDOH Screenings 1992 [facility]-Varicella Vaccines (1 of 2 - 13+ 2-dose series) 2005 HPV Vaccines (1 - 3-dose series) 2007 [facility]- SDOH Screenings 2010 [facility]-Adult SDOH Screenings 2010 [facility]-DTaP,Tdap,and Td Vaccines (1 - Tdap) 2011 [facility]-Hepatitis B Vaccines (1 of 3 - 19+ 3-dose series) 2011 [facility]-Pap Smear 2013 [facility]-Cervical Cancer Screening 2022 [facility]-HPV/Cotest 2022 [facility]-Depression Screening 03/01/2024 03/01/2023, 06/0 01/2023 [id number]-16 Vaccine ( season) 2024 05/07/2021, 04/16/2021 [facility]-Influenza Vaccine (#1) 05/28/202507/07, 06/07/2018, 07/02/2017, Additional history exists [facility]-Zoster Vaccines (1 of 2) 2042 [facility]-HIV Screening Completed 12/18/2017 [facility]-Hepatitis C Screening Completed 10/17/2020, 05/2018 [facility]-HIB Vaccines Aged Out No longer e ligible based on patient's age to complete this topic [facility]-Hepatitis A Vaccines Aged Out No longer eligible based on patient's age to complete this topic [facility]-IPV Vaccines Aged Out No longer e ligible based on patient's age to complete this topic [facility]-Pneumococcal Vaccine: Pediatrics (0 to 5 Years) and At-Risk Patients (6 to 49 Years) Aged Out No longer eligible based on patient's age to complete this topic [facility]-Rotavirus Vaccines Aged Out No lo nger eligible based on patient's age to complete this topic Procedures Procedure Name Priority Date/Time Associated Diagnosis Comments ACUTE HEPATITIS PANEL Routine 01/03/2018 5:34 AM EDT HIV 1/2 ANTIBODY/ANTIGEN SCREEN WITH REFLEX TO HIV I/II DIFFERENTIATION Routine 12/18/2017 5:52 AM EDT from Last 3 Months or Most Recently Relevant to Health Maintenance Results * Acute Hepatitis Panel (01/03/2018 5:34 AM EDT) Hepatitis B Surf Antigen NEGATIVE Reference Value: Negative SUNQUEST Hepatitis C Antibody NEGATIVE Reference Range: Negative SUNQUEST Hepatitis A Antibody IgM NEGATIVE Reference Value: Negative SUNQUEST External Hepatitis B Core IgM (HBCM) NEGATIVE Reference Value: Negative SUNQUEST 01/03/2018 5:34 AM EDT 01/03/2018 6:18 PM EDT Historical Provider LAB BLOOD ORDERABLES Kate l Result SUNQUEST * HIV 1 & 2 Antibody/Antigen Screen (12/18/2017 5:52 AM EDT) HIV 1 Result NONREACTIVE Screening for HIV 1 and 2 antibodies is NONREACTIVE. No confirmatory testing is required. SUNQUEST 12/18/2017 5:52 AM EDT 12/18/2017 6:28 AM EDT us Historical Provider LAB BLOOD ORDERABLES Kate l Result SUNQUEST from Last 3 Months or Most Recently Relevant to Health Maintenance Insurance ANDRES Care Teams Corporate Logistics Manager Relationship Specialty Start Date End Date Michaela Sousa APRN [address] [place] [address] PCP - General 07/24/21
--- OUTSIDE RECORDS SUMMARY | 2025-04-25 14:57 | XMS_ITS | Encounter Summary ---
Author Organization [employer] ([place], [place], [place], [place]) Address [address] [place] [address] Care Team Providers Care Entry Level Software Developer Name Role Phone Michaela Sousa APRN Primary Care Provider Encounter Details Date Type Department Care Team (Late st Contact Info) Description 03/11/2022 Transcribed Document [facility] [address] [place] [address] ProviderTeena MD [address] [place] [address] Social History Tobacco Use Types Packs/Day Years [...] Date Tommie rded Speak language other than Croatian at home Not on file 10/15/2023 Want [...] Conversion Note - Historical Provider, - 03/11/2022 3:10 PM CDT DATE OF PROCEDURE: 03/11/2022 SURGEON: Pavel Schafer MD PREOPERATIVE DIAGNOSES: Dyspareunia, dysmenorrhea, pelvic pain, endometriosis, uterine retroversion. POSTOPERATIVE DIAGNOSES: Dyspareunia, dysmenorrhea, pelvic pain, endometriosis, uterine retroversion, adhesions. PROCEDURES PERFORMED: Robotic laparoscopy, lysis of adhesions, excision of endometriosis, excisional biopsy of right ovary, right ovarian cystotomy, uterine suspension, cystoscopy. IDENTIFICATION: Maia is a 31-year-old white female, 2, para 1, AB 1 with a history of endometriosis. She has progressive dysmenorrhea, dyspareunia, and pelvic pain with uterine retroversion. She has a history of prior section. She is here for diagnostic evaluation and therapeutic intervention at this time. DESCRIPTION OF PROCEDURE: The patient was taken to the operating quarter, placed in a supine semi-lithotomy position. After adequate general endotracheal anesthesia was obtained, she was prepped and draped in routine fashion for laparoscopic procedure. A periumbilical skin incision was made. Veress needle was inserted into the peritoneal cavity, CO2 was allowed to insufflate to create a pneumoperitoneum. Laparoscope was inserted. Operative arms were placed 10 cm on either side. A right upper quadrant assist port was placed. Inspection of the pelvis revealed anterior abdominal wall omental adhesions and anterior cul-de-sac adhesions. These were taken down with care. Two areas of endometriosis in the bladder peritoneum were noted. These were excised. The tubes were relatively normal throughout her course with healthy-appearing fimbriae. The left ovary is unremarkable. The right ovary had a subcentimeter area of endometriosis on the surface, which was elliptically excised and a 2 cm cyst was opened and drained of clear fluid. There were areas of endometriosis in the deep cul-de-sac and both pelvic side olivarez. The liver edge, gallbladder, and stomach were unremarkable. The appendix had 2 superficial areas that were suspicious for endometriosis of 1 and 2 cm from the tip that were very superficial. The uterine suspension was undertaken with 0 Ethibond. A pass was made through the anterior abdominal wall fascia just above the symphysis pubis and just lateral to the obliterated umbilical on each side. A triplicated pass through the round ligament and a second pass through the fascia. These were tied down intracorporeally with good elevation and support. Ureters . No hematoma was noted. Pelvis irrigated, suctioned, and reinspected. DICTATION ENDS HERE. /[id number] PepeMD NICANOR Hassan/ARCADIO / NICANOR / MODL /[id number] Electronically signed by Chaparrita, [facility] Conversion Thai Masseur Cerner at 01/09/2023 10:49 AM CDT documented in this encounter Plan of Treatment Not on file documented as of this encounter Visit Diagnoses Not on filedocumented in this encounter Care Teams Entry Level Software Developer Relationship Specialty Start Date End Date Michaela Sousa, ROBOTIC MACHINE OPERATOR [address] [id number] PCP - General Nurse Practitioner 11/09/22 11/09/22 documented as of this encounter
--- OUTSIDE RECORDS SUMMARY | 2025-04-25 14:57 | XMS_ITS | Encounter Summary ---
Author Organization [employer] ([place], [place], [place], [place]) Address [address] [place] [address] Care Team Providers Care Citizen Participation Specialist Name Role Phone Michaela Sousa APRN Primary Care Provider [phone] Encounter Details Date Type Department Care Team (Late st Contact Info) Description 03/11/2022 Transcribed Document [facility] Medicine [address] [place] [address] ProviderTeena MD [address] [place] [address] Social History Tobacco Use Types Packs/Day Years [...] Date Tommie rded Speak language other than Japanese at home Not on file 10/15/2023 Want [...] Conversion Note - Historical Provider, - 03/11/2022 4:27 PM CDT Patient Education Materials Follows: Diagnostic Laparoscopy, Care After This sheet gives [...] these instructions at home: Medicines ??? Take lxhx-ifl-sewkjea and prescription medicines only as told by [...] and water are not available, use hand coil cutter. ? Change your dressing as told by [...] keep your urine pale yellow. ? Take kiee-qhx-hkkfxor or prescription medicines. ? Eat foods that [...] provider. Document Revised: 08/26/2018 Document Reviewed: 03/09/2018 [employer] Patient Education ? 2020 M[employer]. Obstetrics and Gynecology Endometriosis Endometriosis is a condition in which [...] balanced diet. ??? Avoid caffeine. ??? Take ygmm-akl-gawfnhq and prescription medicines only as told by your health care provider. ??? Keep all follow-up visits as told by your health care provider. This is important. Where to find more information ??? [employer]: https://www.acog.org/ ??? [...] provider. Document Revised: 10/30/2020 Document Reviewed: 10/30/2020 [employer] Patient Education ? 2020 [employer]. Pharmacology General Anesthesia, Adult, Care After This sheet [...] activities are safe for you. ??? Take nwfk-tiz-cqmvuhl and prescription medicines only as told by [...] provider. Document Revised: 05/29/2021 Document Reviewed: 12/26/2020 [employer]led Patient Education ? 2020 [employer]. documented in this encounter Plan of Treatment Not on file documented as of this encounter Visit Diagnoses Not on filedocumented in this encounter Care Teams Citizen Participation Specialist Relationship Specialty Start Date End Date Michaela Sousa APRN [address] [place] [address] PCP - General Nurse Practitioner 11/09/22 11/09/22 documented as of this encounter
--- OUTSIDE RECORDS SUMMARY | 2025-04-25 14:57 | XMS_ITS | Referral Summary ---
Author Organization [employer] ([place], [place], [place], [place]) Address [address] [place] [address] Care Team Providers Care Bottle Washer Name Role Phone Unavailable Primary Care Provider [...] Date Tommie rded Speak language other than Latvian at home Not on file 10/15/2023 Want [...] 11/29/2022 6:37 AM EST Plan of Treatment Not on file Insurance BLUE CROSS/BLUE SHIELD Advance Directives For more information, please contact: [phone] * Full Code (Latest Code Status on File) Date Activated Date Inactivated Comments 11/11/2022 7:28 AM 11/11/2022 12:16 PM
--- OUTSIDE RECORDS SUMMARY | 2025-04-25 14:57 | XMS_ITS | Encounter Summary ---
Author Organization [place] [address] Care Team Providers Care Tax Preparer Name Role Phone Radha Ordaz LPN Unavailable Unav ailable Encounter Details Date Type Department Care Team (Late st Contact Info) Description 11/02/2018 Lab Requisition [facility] [place] [address] Wendy Emerson MD [address] [place] [id number] Other specified abnormal findings of blood [...] Procedure Name Priority Date/Time Associated Diagnosis Comments ADRENOCORTICOTROPIC HORMONE -REF LAB Routine 11/02/2018 8:40 AM EST Other specified abnormal findings of blood chemistry documented in this encounter Results * ADRENOCORTICOTROPIC HORMONE -REF LAB (11/02/2018 8:40 AM EST) [facility] ACTH 21 6 - 58 pg/mL 11/04/2018 2:20 PM EST [employer] Comment: INTERPRETIVE INFORMATION: Adrenocorticotropic Hormone Some types of synthetic ACTH are not detected by this assay. Access complete set of age- and/or gender-specific reference intervals for this test in the [facility] Test Directory ([employer]). Performed by [facility], [address] [place] [id number] www.[employer], Robert Restrepo MD, Lab. Director Blood VENOUS BLOOD / Unknown 11/02/2018 8:40 AM EST 11/02/2018 2:17 PM EST us Wendy Emerson MD CHEMISTRY ORDERABLES Fin al Result [facility] [address] [place] [address] documented in this encounter Visit Diagnoses Diagnosis Other specified abnormal findings of blood chemistry documented in this encounter Additional Health Concerns Assessment Noted Time PHQ-9 Depression Total Score: 2 10/07/19 19 4:43 PM EST PHQ-2 Depression Total Score: 2 10/07/19 19 4:43 PM EST documented as of this encounter Care Teams Tax Preparer Relationship Specialty Start Date End Date Radha Ordaz LPN [employer] Projects Supervisor Licensed Practical Nurse 03/15/20 04/02/20 documented as of this encounter
--- OUTSIDE RECORDS SUMMARY | 2025-04-25 14:57 | XMS_ITS | Clinical Summary ---
Author Organization [facility] Address [address] [place] [address] Care Team Providers Care Architectural Sales Consultant Name Role Phone Nonstaff, Referring Primary Care Provider [phone] Johnnie Shearer MD Unavailable [phone] Allergies Active Allergy Reactions Criticality Noted Date Comments Celecoxib Anaphylaxis High 03/31/2019 Celebrex; tolerates ibuprofen, ketorolac Celebrex; tolerates ibuprofen, ketorolac Celebrex; tolerates ibuprofen, ketorolac Celebrex; tolerates ibuprofen, ketorolac Celebrex; tolerates ibuprofen, ketorolac Celebrex; tolerates ibuprofen, ketorolac Celebrex; tolerates ibuprofen, ketorolac Celebrex; tolerates ibuprofen, ketorolac Metoclopramide Other (See Comments) 07/06/2018 Other reaction(s): Other, Other (See Comments) tremors ERXTRAPYRMIDAL SIDE EFFECTS Twitchy tremors Twitchy tremors ERXTRAPYRMIDAL SIDE EFFECTS Twitchy tremors Twitchy Nsaids (Non-Steroidal Anti-Inflammatory Drug) High 09/22/2022 Other reaction(s): GI Bleeding Sulfa (Sulfonamide Antibiotics) Anaphylaxis,Hives,Ot her (See Comments) High 10/09/2013 Other reaction(s): Unknown Medications diphenhydrAMINE (Benadryl Allergy) 25 mg tablet Take 25 mg by mouth. 09/30/2022 Active escitalopram oxalate (LEXAPRO) 20 mg Tablet Take 20 mg by mouth. 10/14/2022 Active ferrous sulfate (65 MG IRON) 325 mg (65 mg iron) tablet Take 325 mg by mouth daily. Active gabapentin (NEURONTIN) 100 mg capsule Take 300 mg by mouth 3 times daily. Active omeprazole (PRILOSEC OTC) 20 mg Tablet, Delayed Release (E.C.) Take 40 mg by mouth daily. Active ondansetron (ZOFRAN) 4 mg tablet Take 4 mg by mouth every 8 hours as needed. Active pantoprazole (PROTONIX) 40 mg Tablet, Delayed Release (E.C.) Take 40 mg by mouth daily. Active Coenzyme M19-Wsoqxsh E 100-5 mg-unit Capsule Take 400 mg by mouth daily. Active Active Problems Problem Noted Date Diagnosed Date Vomiting 02/16/2023 Social History Tobacco Use Types Packs/Day Years Used Date Smoking Tobacco: Never Smokeless Tobacco: Never Tobacco Cessation:Counseling Given: Not Answered Alcohol Use Standard Drinks/Week Comments Not Currently 0 (1 standard drink = 0.6 oz pur e alcohol) Comments No Sex and Gender Information Value Date Recorded Sex Assigned at Not on file Legal Sex Female 9:58 AM EDT Gender Identity Not on file Sexual Orientation Not on file Last Filed Vital Signs Vital Sign Reading Time Taken Comments Blood Pressure 114/58 02/16/2023 3:00 PM EDT Pulse 60 02/16/2023 3:00 PM EDT Temperature 35.6 C (96 F) 02/16/2023 2:25 PM EDT Respiratory Rate 16 02/16/2023 3:00 PM EDT Oxygen Saturation 100% 02/16/2023 3:00 PM EDT Inhaled Oxygen Concentration - - Weight 75.3 kg (166 lb) 02/16/2023 11:35 AM EDT Height 175.3 cm (5' 9 ) 02/16/2023 11:35 AM EDT Body Mass Index 24.51 02/16/2023 11:35 AM EDT Plan of Treatment Not on file Insurance ANDRES Member Subscriber Plan / Payer (Ef fective 2022-Present) Name:Maia Kovacs Relation to Subscriber:Self Name:Maia Kovacs Payer ID:[id number] ([facility]) Type:PPO Address: [facility] [id number] [id number] Care Teams Architectural Sales Consultant Relationship Specialty Start Date End Date Nonstaff, MD [place] [address] [place] [address] PCP - General 02/16/23 Johnnie Shearer MD [address] [place], [place] [id number] Gastroenterology 02/16/23
--- OUTSIDE RECORDS SUMMARY | 2025-04-25 14:57 | XMS_ITS | Clinical Summary ---
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 Role Phone Unavailable Primary Care Provider Unavailabl e Allergies Active Allergy Reactions Criticality Noted Date Comments Adhesive Tape-Silicones Other (See Comments) Celecoxib Anaphylaxis High 03/31/2019 Coconut Anaphylaxis High 06/23/2018 Dicyclomine Other (See Comments) 12/09/2018 Latex Hives 06/23/2018 Nitroglycerin Nausea And Vomiting 01/19/2019 Pineapple Anaphylaxis High 06/23/2018 Metoclopramide Hcl Other (See Comments) 018 Twitchy Sulfa (Sulfonamide Antibiotics) Hives 05/29 Medications * This document contains information received from the source organization and may not represent a complete record from that organization. b ggvtmwy-F-ygnwl acid (NEPHROCAP) 1 mg Oral Capsule Take 1 Cap by mouth daily. Active Coenzyme Q10 10 mg Oral Capsule Take 1 Cap by mouth. Active melatonin 10 mg Oral Tablet Take 10 mg by mouth nightly. Active ELEAZAR ROOT, BULK, MISC 550 mg by Misc.(Non-Dr ug; Combo Route) route 2 times daily. 09/24/2018 Active hydrOXYzine (ATARAX) 25 mg Oral Tablet Take 1 tab up to four times a day prn anxiety attacks 120 Tab 2 11/17/2018 Active diphenhydrAMINE (BENADRYL) 25 mg Oral Capsule Take 25 mg by mouth nightly as needed for Itching. Active ondansetron (ZOFRAN) 4 mg Oral Tablet Take 4 mg by mouth every 8 hours as needed for Nausea. Active scopolamine (TRANSDERM-SCOP ) 1 mg over 3 days TD patch [address] onto the skin once. Active prochlorperazin e (COMPAZINE) 5 mg Oral Tablet Take 5 mg by mouth every 6 hours. Active promethazine (PHENERGAN) 25 mg Oral Tablet Take 1 Tab by mouth every 4 hours as needed for Nausea. 20 Tab 01/19/2019 Active omeprazole (PRILOSEC) 40 mg Oral Capsule, Delayed Release(E.C.) TAKE 1 CAPSULE BY MOUTH DAILY 30 Cap 2 05/30/2019 Active Active Problems Patient Care Coordination No te Formatting of this note migh t be different from the original. Care gap audit completed by Dianna Vela RN on 03/07/2021. Utilization audit completed by Dianna Vela RN on 11/08/2020. Upon review, this patient has utilized the ED 17 times in the past 12 months primarily for suspected Multiple Diagnoses.. Referred to CM. Problem Noted Date Diagnosed Date Disease of female genital organs 07/05/2020 Overview (07/05/2020): Added automatically from request for surgery [id number] Pelvic pain 07/05/2020 Overview (07/05/2020): Added automatically from request for surgery [id number] Scoliosis of thoracic spine 03/09/2019 S/P endometrial ablation 03/08/2019 Endometriosis 03/08/2019 Overweight 11/16/2018 Overview (11/16/2018): She describes a wt gain over the past year. She was hoping to discuss with wt management as she has been unable to get the weight off. Abnormal cortisol level 10/19/2018 Assessment & Plan (11/16/2018 4:20 PM EST): She is hoping to get a second opinion on her potassium sparing, h/o abnormal cortisol levels, Will try to plan for a referral. 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 Peripheral edema 10/07/2018 Overview (10/07/2018): Unclear etiology of edema to shins, less to hands. Will check labs and an echo. History of PSVT (paroxysmal supraventricular tac hycardia) 10/07/2018 Iron deficiency anemia 10/07/2018 Overview (10/07/2018): Unclear etiology, will check some labs today. JESSICA (generalized anxiety disorder) 07/09/2018 Major depressive disorder, recurrent episode, mo derate 07/09/2018 Hypokalemia 06/24/2018 Overview (10/07/2018): Has been on replacement and aldactone per nephrology. Assessment & Plan (10/07/2018 5:50 PM EST): Will repeat her elytes today. GERD (gastroesophageal reflux disease) 8 Erosive gastritis Nausea vomiting and diarrhea Palpitation Resolved Problems Problem Noted Date Diagnosed Date Resolved Date Other chest pain 06/24/2018 07/29/2018 Immunizations Immunization Administration Dates Next Due Influenza Vaccine Quadrivalent PF 2017,06/26/2018(Deferred: Patient Refused) Surgical History Surgery Date Site/Laterality Comments CHOLECYSTECTOMY TONSILLECTOMY UPPER GASTROINTESTINAL ENDOSCOPY 07/08/2018 N/A ESOPHAGOGASTRODUODENOSCOPY with biopsy; Surgeon: Mic Pavon MD; Location: [facility]; Service: Endoscopy LAPAROSCOPY DENTAL SURGERY LAPAROSCOPY 12/21/2018 Right LAPAROSCOPY WITH HARMONIC SCALPEL ABLATION OF ENDOMETRIOSIS, CHROMOPERTUBATION; Surgeon: Sharath Desir MD; Location[facility]; Service: Gynecology LAPAROSCOPY 08/13/2020 N/A Diagnostic Laparoscopy with harmonic scalpel of endometriosis ; Surgeon: Sharath Desir MD; Location: [facility]; Service: Gynecology XR INJECT CONTRAST EXISTING TUBE 12/27/2017 XR INJECT CONTRAST EXISTING TUBE 12/27/2017 XR INJECT CONTRAST EXISTING TUBE 12/26/2017 XR INJECT CONTRAST EXISTING TUBE 12/26/2017 XR INJECT CONTRAST EXISTING TUBE 12/24/2017 XR INJECT CONTRAST EXISTING TUBE 12/24/2017 Medical History Medical History Date Comments GERD (gastroesophageal reflux disease) Ulcer JESSICA (generalized anxiety disorder) 07/09/2018 Major depressive disorder, r ecurrent episode, moderate (HCC) 07/09/2018 H/O oral surgery 07/13/2018 Disorder of mitochondrial metabolism Liver disease Psychologic conversion disorder 10/17/2018 Mood disorder 10/17/2018 Pseudoseizure 10/18/2018 Seizure (HCC) 10/17/2018 Liver disease due to mitocho ndrial disorder 10/07/2018 Per biopsy, according to ana lilia hudson. Headache Encounter for blood transfusion Post-operative nausea and vomiting Hypokalemia History of PSVT (paroxysmal supraventricular tachycardia) 10/07/2018 d/t low K+ Anemia Adrenal insufficiency Family History Medical History Relation Name Comments Alcohol Abuse Father High Blood Pressure Father Cancer Mother thyroid Seizures Mother Asthma Sister Heart Disease Sister Seizures Sister Anesth Problems Neg Hx Relation Name Status Comments Father Alive Mother Alive Sister Social History Tobacco Use Types Packs/Day Years Used Date Smoking Tobacco: Never Smokeless Tobacco: Never Alcohol Use Standard Drinks/Week Comments No 0 (1 standard drink = 0.6 oz pur e alcohol) Overall Financial Resource Strain (CARDIA) Answe r Date Recorded Difficulty of Paying Living Expenses Not very [address] 04/03/2020 PHQ-2 Answer Date Recorded PHQ-2 Score 2 02/18/2019 Hunger Vital Sign Answer Date Recorded Worried About Running Out of Food in the Last Ye ar Never true 04/03/2020 Ran Out of Food in the Last Year Never true 04/03/2020 PRAPARE - Transportation Answer Date Re corded Lack of Transportation (Medical) No 04/03/2020 Lack of Transportation (Non-Medical) No 04/03/2020 Sexually Active Control Partners Comments Yes Male Comments No Sex and Gender Information Value Date Recorded Sex Assigned at Not on file Legal Sex Female 3:27 PM EDT Gender Identity Not on file Sexual Orientation Not on file 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 Not on file Not on file Obstetrics History Para Term AB IAB SAB Ectopic Multiple Livin g Live Births 1 0 1 0 Date Outcome GA Total Labor Labor/2nd/3rd Weight Sex Type Anes PTL Cassidy A1 A5 Name Clin AB Last Filed Vital Signs Vital Sign Reading Time Taken Comments Blood Pressure 129/90 08/15/2020 7:45 PM EST Pulse 84 08/15/2020 7:45 PM EST Temperature 36.7 C (98 F) 08/15/2020 7:45 PM EST Respiratory Rate 18 08/15/2020 7:45 PM EST Oxygen Saturation 100% 08/15/2020 10:13 PM EST Inhaled Oxygen Concentration - - Weight 68.5 kg (151 lb) 08/13/2020 7:12 AM EST Height 170.2 cm (5' 7 ) 08/13/2020 7:12 AM EST Body Mass Index 23.65 08/13/2020 7:12 AM EST Plan of Treatment Health Maintenance Due Date Last Done Comments Annual Wellness Exam 1995 DTaP/TDaP/Td (1 - Tdap) 2011 Hepatitis B Vaccine (1 of 3 - 19+ 3-dose series) 2011 Cervical Cancer Screening 2013 Pap Smear 2013 HPV/Pap Cotest 2022 COVID-19 Vaccine (1 - 2023-2 5 season) 2024 Influenza Vaccine (#1) 2025 8, 05/28/2013 Meningococcal B Vaccine Aged Out No l onger eligible based on patient's age to complete this topic Pneumococcal Vaccine 0-49 Aged Out No longer eligible based on patient's age to complete this topic Goals Goal Patient Goal Type Associated Problems Recent Progress Patient-Stated? Author Maintain a healthy diet, exercise regularly and maintain an ideal body weight General No Vicki Story LPN Medical Devices Implanted Type Area Military Nurse Device Identifier Shelf Expiration Date Model / Serial / Lot Screw [employer] Insurance [facility] CHO[facility] PLUS [facility] PLUS [facility] PLUS [facility]US [facility] PL[facility] * Guarantor: Maia Kovacs Account Type Relation to Patient Date of Phone Billing Address [place] Personal Family Self Advance Directives For more information, please contact: [phone] * Full Code (Latest Code Status on File) Date Activated Date Inactivated Comments 10/18/2018 9:09 AM 10/19/2018 10:06 PM * Full Code Date Activated Date Inactivated Comments 07/30/2018 5:28 PM 07/31/2018 8:57 PM * Full Code Date Activated Date Inactivated Comments 07/15/2018 7:47 PM 07/17/2018 7:32 PM * Full Code Date Activated Date Inactivated Comments 07/09/2018 8:26 AM 07/10/2018 7:59 PM * Full Code Date Activated Date Inactivated Comments 06/24/2018 5:36 PM 06/26/2018 10:48 PM
--- OUTSIDE RECORDS SUMMARY | 2025-04-25 14:57 | XMS_ITS | Encounter Summary ---
Author Organization [employer] ([place], [place], [place], [place]) Address [address] [place] [address] Care Team Providers Care Fabric Inspector Name Role Phone Michaela Sousa APRN Primary Care Provider Encounter Details Date Type Department Care Team (Late st Contact Info) Description 03/11/2022 Transcribed Document [facility] [place] [address] [place] [address] ProviderTeena MD [address] [place] [address] Social History Tobacco Use Types Packs/Day Years [...] Date Tommie rded Speak language other than Cambodian at home Not on file 10/15/2023 Want [...] Provider, MD - 03/11/2022 2:19 PM CDT [facility] Main OR IntraOp Summary Primary Physician: Pavel ADAM MD-OBG Finalized Date/Time: 03/11/22 14:59:51 Pt. Name: ROCIO KOVACS JOVON [place]B./Sex: 1990 Female Med Rec #: [id number] Physician: Pavel ADAM MD-OBG Financial #: [id number] Pt. Type: O Room/Bed: Admit/Disch: 03/11/22 09:42:00 - Institution[place] [facility] [place]Op Case Attendance Entry 1 Entry 2 Entry 3 Case Attendee Pavel ADAM Holliday, Stewart R, BANG COBURN ST MD-OBG Role Performed Surgeon/Proceduralist, Family Consumer Scientist, First Scrub, First First Time In 03/11/22 14:02:00 03/11/22 14:02:00 03/11/22 14:02:00 Time Out 03/11/22 14:59:00 03/11/22 14:59:00 03/11/22 14:59:00 Procedure Laparoscopy Operative Laparoscopy Operative Laparoscopy Operative Robotic, Vaginal Robotic, Vaginal Robotic, Vaginal Suspension, Lysis Suspension, Lysis Suspension, Lysis Adhesions, Ovarian Adhesions, Ovarian Adhesions, Ovarian Cystectomy Laparoscopic Cystectomy Laparoscopic Cystectomy Laparoscopic Other Attendee Superficial Wound Closed By: Last Modified By: Sanchez Cadena, RN Sanchez Cadena, Sanchez Dunn RN 03/11/22 14:59:45 03/11/22 14:59:45 03/11/22 14:59:45 Entry 4 Entry 5 Entry 6 Case Attendee Jens Pedroza SONIA, PA-C GUNNING, CORTNEY, CARAMEL CUTTER HAND, TRACK SERVICE WORKER-ANS Role Performed Scrub, Second Physician customer care assistant TRACK SERVICE WORKER/Nurse Concrete Mixing Plant Superintendent Time In 03/11/22 14:02:00 03/11/22 14:02:00 03/11/22 14:02:00 Time Out 03/11/22 14:59:00 03/11/22 14:59:00 03/11/22 14:59:00 Procedure Laparoscopy Operative Laparoscopy Operative Laparoscopy Operative Robotic, Vaginal Robotic, Vaginal Robotic, Vaginal Suspension, Lysis Suspension, Lysis Suspension, Lysis Adhesions, Ovarian Adhesions, Ovarian Adhesions, Ovarian Cystectomy Laparoscopic Cystectomy Laparoscopic Cystectomy Laparoscopic Other Attendee Superficial Wound Closed By: Last Modified By: Sanchez Cadena, RN Sanchez Cadena, RN Sanchez Cadena, RN 03/11/22 14:59:45 03/11/22 14:59:45 03/11/22 14:59:45 [facility] IntraOp Case Attendance Audit 03/11/22 14:59:45 Iuss Acoustic Analyst: [email or web address] Modifier: [email or web address] 1 <+> Time Out 1 <*> Procedure Laparoscopy Operative Robotic, Vaginal Suspension, Lysis Adhesions, Ovarian Cystectomy Laparoscopic 2 <+> Time Out 2 <*> Procedure Laparoscopy Operative Robotic, Vaginal Suspension, Lysis Adhesions, Ovarian Cystectomy Laparoscopic 3 <+> Time Out 3 <*> Procedure Laparoscopy Operative Robotic, Vaginal Suspension, Lysis Adhesions, Ovarian Cystectomy Laparoscopic 4 <+> Time Out 4 <*> Procedure Laparoscopy Operative Robotic, Vaginal Suspension, Lysis Adhesions, Ovarian Cystectomy Laparoscopic 5 <+> Time Out 5 <*> Procedure Laparoscopy Operative Robotic, Vaginal Suspension, Lysis Adhesions, Ovarian Cystectomy Laparoscopic 6 <+> Time Out 6 <*> Procedure Laparoscopy Operative Robotic, Vaginal Suspension, Lysis Adhesions, Ovarian Cystectomy Laparoscopic 03/11/22 14:38:59 Iuss Acoustic Analyst: [email or web address] Modifier: [email or web address] 1 <*> Procedure Laparoscopy Operative Robotic, Vaginal Suspension, Lysis Adhesions 2 <*> Procedure Laparoscopy Operative Robotic, Vaginal Suspension, Lysis Adhesions 3 <*> Procedure Laparoscopy Operative Robotic, Vaginal Suspension, Lysis Adhesions 4 <*> Procedure Laparoscopy Operative Robotic, Vaginal Suspension, Lysis Adhesions 5 <*> Procedure Laparoscopy Operative Robotic, Vaginal Suspension, Lysis Adhesions 6 <*> Procedure Laparoscopy Operative Robotic, Vaginal Suspension, Lysis Adhesions 03/11/22 14:29:46 Iuss Acoustic Analyst: [email or web address] Modifier: [email or web address] 1 <+> Time In 1 <*> Procedure Laparoscopy Operative Robotic, Vaginal Suspension 2 <+> Time In 2 <*> Procedure Laparoscopy Operative Robotic, Vaginal Suspension 3 <+> Time In 3 <*> Procedure Laparoscopy Operative Robotic, Vaginal Suspension 4 <+> Time In 4 <*> Procedure Laparoscopy Operative Robotic, Vaginal Suspension 5 <+> Time In 5 <*> Procedure Laparoscopy Operative Robotic, Vaginal Suspension 6 <+> Time In 6 <*> Procedure Laparoscopy Operative Robotic, Vaginal Suspension 03/11/22 13:46:27 Iuss Acoustic Analyst: [email or web address] Modifier: [email or web address] 1 <*> Procedure Laparoscopy Operative Robotic, Vaginal Suspension 2 <*> Procedure Laparoscopy Operative Robotic, Vaginal Suspension 3 <*> Procedure Laparoscopy Operative Robotic, Vaginal Suspension 4 <*> Procedure Laparoscopy Operative Robotic, Vaginal Suspension 5 <*> Procedure Laparoscopy Operative Robotic, Vaginal Suspension 6 <*> Procedure Laparoscopy Operative Robotic, Vaginal Suspension [facility] IntraOp Case Times Entry 1 Patient In Room Time 03/11/22 14:02:00 Out Room Time 03/11/22 14:59:00 Anesthesia Start Time 03/11/22 14:02:00 Stop Time 03/11/22 14:59:00 Anesthesia Ready 03/11/22 14:02:00 Surgery / Procedure Times Start Time 03/11/22 14:19:00 Stop Time 03/11/22 14:55:00 Last Modified By: Sanchez Cadena RN 03/11/22 14:59:44 [facility] IntraOp Case Times Audit 03/11/22 14:59:44 Iuss Acoustic Analyst: MICHAELR Modifier: [email or web address] <+> 1 Out Room Time <+> 1 Stop Time <+> 1 Stop Time 03/11/22 14:19:12 Iuss Acoustic Analyst: MICHAELR Modifier: [email or web address] <+> 1 Start Time [facility] IntraOp Cautery Entry 1 ESU Identification Cautery Type Monopolar ESU ID Number ERBE ID Type Hospital Number Cautery Settings Cut Setting 4 Coag Setting 4 Bipolar Setting 4 ESU Grounding Pad Ground Pad Type Adult Grounding Pad Site Left thigh Grounding Pad Sanchez Cadena, RN Applied By Grounding Pad Site Intact Skin Condition Before Cautery Grounding Pad Site Intact Skin Condition After Cautery Last Modified By: Sanchez Cadena RN 03/11/22 14:02:01 [facility] IntraOp Communication Entry 1 Communication To Family/Significant other Comment procedure update Communication By Sanchez Cadena, RN Last Modified By: Sanchez Cadena RN 03/11/22 14:26:58 [facility] IntraOp Counts Verification Entry 1 Procedure Laparoscopy Operative Robotic, Vaginal Suspension, Cystoscopy Adult, Lysis Adhesions, Ovarian Cystectomy Laparoscopic Count Info Count Type Sponge, Sharps, Instrument, Miscellaneous Counts Verification Baseline/pre-procedure Sequence Counts Performed By Count Performed By BANG TREVIZO ST (Scrub) Count Performed By Sanchez Cadena RN (RN) Last Modified By: Sanchez Cadena RN 03/11/22 14:39:01 [facility] IntraOp Counts Verification Audit 03/11/22 14:39:01 Iuss Acoustic Analyst: PAULA Modifier: [email or web address] 1 <*> Procedure Laparoscopy Operative Robotic, Vaginal Suspension, Cystoscopy Adult, Lysis Adhesions 03/11/22 14:29:48 Iuss Acoustic Analyst: PAULA Modifier: [email or web address] 1 <*> Procedure Laparoscopy Operative Robotic, Vaginal Suspension, Cystoscopy Adult [facility] IntraOp Counts Final Entry 1 Procedure Laparoscopy Operative Robotic, Vaginal Suspension, Cystoscopy Adult, Lysis Adhesions, Ovarian Cystectomy Laparoscopic Final Count Info Count Type Sponge, Sharps, Miscellaneous Counts Verification Skin Closure/end of Sequence procedure Count Results Correct, surgeon notified Counts Performed By Count Performed By BANG TREVIZO ST (Scrub) Count Performed By Sanchez Cadena RN (RN) Last Modified By: Sanchez Cadena RN 03/11/22 14:39:02 [facility] IntraOp Counts Final Audit 03/11/22 14:39:02 Iuss Acoustic Analyst: PAULA Modifier: HOLLIDSR 1 <*> Procedure Laparoscopy Operative Robotic, Vaginal Suspension, Cystoscopy Adult, Lysis Adhesions [facility] IntraOp Cultures and Spec Summary Entry 1 Cultrures and Specimens Specimen Ordered: Yes Test(s) Routine/Path-Lab Requested/Final Disposition Last Modified By: Sanchez Cadena RN 03/11/22 13:49:17 [facility] IntraOp Departure from OR Entry 1 Integumentary Assessment Transfer/Handoff Transfer to PACU Phase I Post-op Transport Stretcher/Stevenrney Via Patient Transport Sanchez Cadena, Accompanied by RN, TITO RODRIGUES, CARAMEL CUTTER HAND, TRACK SERVICE WORKER-ANS Last Modified By: Sanchez Cadena RN 03/11/22 13:49:13 [facility] IntraOp Dressing and Packing Entry 1 Type Dressing Location ABDOMEN Wound Dressing Item Skin Closure Glue Last Modified By: Sanchez Cadena RN 03/11/22 13:45:53 [facility] IntraOp Fire Risk Assessment Entry 1 Fire Info Surgical Site or 0- No Incision Above the Xyphoid Open O2 Source 0- No (Mask or Cannula) Available Ignition 1- Yes (ESU, Laser, Light Source) Fire Risk 1 Assessment Score Fire Score Fire Risk Yes Assessment Complete Fire Risk Sanchez Cadena creative services specialist Verified By Fire Risk 03/11/22 13:48:00 Assessment Verified Date/Time Fire Risk High Risk Protocol Yes Implemented Standard Fire Yes Safety Precautions Followed Last Modified By: Sanchez Cadena RN 03/11/22 13:48:37 [facility] IntraOp Fire Risk Assessment Audit 03/11/22 13:48:37 Iuss Acoustic Analyst: PAULA Modifier: PAULA <+> 1 Fire Risk Assessment Verified Date/Time [facility] IntraOp General Case Strategic Alliances Manager 1 Case Information OR OR 04 [facility] Case Level 1 Room Verified Yes Wound Class 1 - Clean Specialty Gynecology Anesthesia Type General ASA Class 2 Diagnosis Preop Diagnosis pelvic pain, aub Postop Diagnosis refer to MD hui Wound Class Definitions Last Modified By: Sanchez Cadena RN 03/11/22 14:15:46 [facility] IntraOp Intraoperative Assessment Entry 1 Valid History / Yes Physical in Chart Preoperative Yes Checklist Reviewed/Evaluated Allergies Reviewed No Patient is Latex No Sensitive Isolation Not applicable Precautions Noted Level of WDL Consciousness (WDL = Alert, Oriented to Person, Place, and Time) Skin Assessment Yes Verified Present Upon IVs Arrival to OR Last Modified By: Sanchez Cadena RN 03/11/22 13:48:40 [facility] IntraOp Intraoperative Equipment Entry 1 Type Equipment Equipment Equipment Robot Intraop Monitoring Electrocardiogram Three lead placement (ECG) Electrode Placement Blood Pressure Non-Invasive BP Device Source Blood Pressure Arm, right upper Location Pulse Oximeter Hand, left Probe Site Antiembolic Devices Antiembolic Devices Sequential compression device, knee high Antiembolic Device Bilateral Location Scopes Photo/Video Documentation Last Modified By: Sanchez Cadena RN 03/11/22 13:48:54 [facility] IntraOp Medication Admin Entry 1 Medication/Irrigant Marcaine 0.5% 30ml vial - [id number] Route of LOCAL Administration Dose Dose 10 Unit of Measure ml Administered By Pavel ADAM MD-OBG Procedure Irrigation Last Modified By: Sanchez Cadena RN 03/11/22 14:26:40 [facility] IntraOp Patient Positioning Entry 1 Procedure Laparoscopy Operative Robotic, Lysis Adhesions, Ovarian Cystectomy Laparoscopic Body Position Modified lithotomy Left Arm Position Tucked and padded at side Right Arm Position Tucked and padded at side Left Leg Position Secured in Leg Interiano Right Leg Position Secured in Leg Interiano Feet Uncrossed Yes Pressure Points Yes Checked Positioning Devices Bueno Bag, Stirrups/Leg Interiano, Boot Positioned By Sanchez Cadena, RN, TITO RODRIGUES APRN, MUSTAPHA-ANS, Pavel ADAM MD-OBG Position Verified Positioning Yes Verified by Anesthesia Positioning Yes Verified by Surgeon Last Modified By: Sanchez Cadena RN 03/11/22 14:39:01 [facility] IntraOp Patient Positioning Audit 03/11/22 14:39:01 Iuss Acoustic Analyst: PAULA Modifier: [email or web address] 1 <*> Procedure Laparoscopy Operative Robotic, Lysis Adhesions 03/11/22 14:29:48 Iuss Acoustic Analyst: PAULA Modifier: [email or web address] 1 <*> Procedure Laparoscopy Operative Robotic [facility] IntraOp Sign In Entry 1 Patient, Site, Yes Procedure Identified Surgical Consent Yes Confirmed Relevant Surgical Yes Documents Available Surgical Site N/A Marked by person performing procedure Anesthesia Machine Yes Check Completed Medication Checks Yes Completed Airway Difficult No Airway/Aspiration Risk Difficult Yes Airway/Aspiration Intervention Equipment Available Blood Loss Risk Yes Blood Loss Yes Intervention Equipment Prepared and Ready Hypothermia Risk Yes Warming Measures Yes Taken Last Modified By: Sanchez Cadena RN 03/11/22 13:44:27 [facility] Intra Op Sign Out Entry 1 RN Confirmation Surgical Yes Procedure(s) Identified Instrument, Sponge Yes and Sharps Counts Correct/Documented Equipment Problems N/A Documented Specimen Labeled Yes Correctly Urinary Catheter N/A Documented in IView Wound Yes classification reviewed, verified and updated post case in both the General Case Data and Procedure segments [place] Patient Yes Recovery Concerns Reviewed with Anesthesia Provider, Surgeon and RN [place] Patient Yes Management Concerns Reviewed with Anesthesia Provider, Surgeon and RN Safety Checklist Yes Elements Complete? RN Sign Out Sanchez Cadena, RN Signature RN Sign Out 03/11/22 14:59:00 Signature Date/Time Plan of Care Outcome - Fire Risk OUTCOME STATEMENT: Goal met Patient is free from injury related to surgical fire Plan of Care Outcome - Pt Positioning OUTCOME STATEMENT: Goal met Absence of signs and symptoms of positioning injury. Plan of Care Outcome - Skin Prep OUTCOME STATEMENT: Goal met Intraoperative care is consistent with measures to prevent infection Plan of Care Outcome - Xray/Images OUTCOME STATEMENT: N/A Absence of observable signs or symptoms of radiation injury Plan of Care Outcome - Counts OUTCOME STATEMENT: Goal met Absence of signs and symptoms of injury related to extraneous objects Last Modified By: Sanchez Cadena RN 03/11/22 14:59:49 [facility] Intra Op Sign Out Audit 03/11/22 14:59:49 Iuss Acoustic Analyst: PAULA Modifier: MICHAELR <+> 1 RN Sign Out Signature Date/Time [facility] IntraOp Skin Prep Entry 1 Procedure Laparoscopy Operative Robotic, Lysis Adhesions, Ovarian Cystectomy Laparoscopic Prescribed Yes Pre-Surgical Prep Completed Prep Area ABDOMEN, VAGINA Intraop Prep Integumentary WDL Assessment WDL Prep Agents Chloraprep, Betadine solution Prep by Sanchez Cadena RN Hair Removal Last Modified By: Sanchez Cadena RN 03/11/22 14:39:02 [facility] IntraOp Skin Prep Audit 03/11/22 14:39:02 Iuss Acoustic Analyst: PAULA Modifier: [email or web address] 1 <*> Procedure Laparoscopy Operative Robotic, Lysis Adhesions 03/11/22 14:29:49 Iuss Acoustic Analyst: PAULA Modifier: [email or web address] 1 <*> Procedure Laparoscopy Operative Robotic [facility] IntraOp Surgical Procedures Entry 1 Entry 2 Entry 3 Procedure Laparoscopy Operative Vaginal Suspension Cystoscopy Adult Robotic Modifiers Additional ROBOTIC DIAGNOSTIC Procedure LAPAROSCOPY, EXCISION Description OF ENDOMETRIOSIS, POSSIBLE UTERINE SUSPENSION Primary Procedure Yes No No Primary Surgeon Pavel ADAM GUILER, J MICHAEL, GUILER, J MICHAEL, MD-OBG MD-OBG MD-OBG Start 03/11/22 14:19:00 03/11/22 14:19:00 03/11/22 14:19:00 Stop 03/11/22 14:55:00 03/11/22 14:55:00 03/11/22 14:55:00 Physician States Cecum Reached Anesthesia Type General General General Specialty Gynecology Gynecology Gynecology Wound Class 1 - Clean 1 - Clean 2 - Clean-Contaminated Last Modified By: Sanchez Cadena RN Holliday, Stewart R, Sanchez Dunn, DEEPAK 03/11/22 14:59:47 03/11/22 14:59:47 03/11/22 14:59:47 Entry 4 Entry 5 Procedure Lysis Adhesions Ovarian Cystectomy Laparoscopic Modifiers Additional Procedure Description Primary Procedure No No Primary Surgeon Pavel ADAM, Pavel ADAM, -OBG -OBG Start 03/11/22 14:19:00 03/11/22 14:19:00 Stop 03/11/22 14:55:00 03/11/22 14:55:00 Physician States Cecum Reached Anesthesia Type General General Specialty Gynecology Gynecology Wound Class 1 - Clean 1 - Clean Last Modified By: Sanchez Cadena RN Holliday, Stewart R, RN 03/11/22 14:59:47 03/11/22 14:59:47 [facility] IntraOp Surgical Procedures Audit 03/11/22 14:59:47 Iuss Acoustic Analyst: PAULA Modifier: [email or web address] <+> 1 Stop <+> 2 Stop <+> 3 Stop <+> 4 Stop <+> 5 Stop 03/11/22 14:54:15 Iuss Acoustic Analyst: PAULA Modifier: [email or web address] 1 <*> Procedure Laparoscopy Operative Robotic 1 <+> Wound Class 2 <*> Procedure Vaginal Suspension 2 <+> Wound Class 03/11/22 14:54:01 Iuss Acoustic Analyst: MICHAELR Modifier: [email or web address] <+> 5 Start 03/11/22 14:38:53 Iuss Acoustic Analyst: MICHAELR Modifier: HOLLIDSR <+> 4 Start <+> 5 Procedure <+> 5 Primary Procedure <+> 5 Primary Surgeon <+> 5 Specialty <+> 5 Wound Class <+> 5 Anesthesia Type 03/11/22 14:29:43 Iuss Acoustic Analyst: MICHAELR Modifier: HOLLIDSR <+> 1 Start <+> 2 Start <+> 3 Start <+> 4 Procedure <+> 4 Primary Procedure <+> 4 Primary Surgeon <+> 4 Specialty <+> 4 Wound Class <+> 4 Anesthesia Type 03/11/22 13:46:21 Iuss Acoustic Analyst: MICHAELR Modifier: HOLLIDSR <+> 2 Primary Procedure <+> 2 Primary Surgeon <+> 2 Specialty <+> 2 Anesthesia Type <+> 3 Procedure <+> 3 Primary Procedure <+> 3 Primary Surgeon <+> 3 Specialty <+> 3 Wound Class <+> 3 Anesthesia Type [facility] IntraOp Time Out Entry 1 Procedure to be Laparoscopy Operative Performed Robotic, Vaginal Suspension, Cystoscopy Adult, Lysis Adhesions, Ovarian Cystectomy Laparoscopic Time Out Time Out Pause Time 03/11/22 14:18:00 All activity Yes suspended (unless life threatening emergency) Team Verbally Correct patient Confirms Information identity, Consent form is present and accurate, Agreement on the procedure to be done, Correct patient position, Relevant images/results properly labeled/appropriately displayed, Confirm antibiotics have been administered, Confirm the skin prep has dried, Confirm prosthesis/implant/devic e is present, Performed in location of procedure after prepped/draped Antibiotic Yes Prophylaxis Administered Or In Progress Within the Last 60 Minutes Beta Óscar N/A Administered Venous Yes Thromboembolism Prophylaxis Required Anticipated Critical Events Surgeon None expected Anesthesia Provider None expected Nursing Assures Sterility of instruments Essential Imaging Yes Labeled and Displayed Last Modified By: Sanchez Cadena RN 03/11/22 14:39:02 [facility] IntraOp Time Out Audit 03/11/22 14:39:02 Iuss Acoustic Analyst: PAULA Modifier: PAULA 1 <*> Procedure to be Performed Laparoscopy Operative Robotic, Vaginal Suspension, Cystoscopy Adult, Lysis Adhesions 03/11/22 14:29:49 Iuss Acoustic Analyst: PAULA Modifier: MICHAELR 1 <*> Procedure to be Performed Laparoscopy Operative Robotic, Vaginal Suspension, Cystoscopy Adult Case Comments <None> Finalized By: Sanchez Cadena, RN Document Signatures Signed By: Sanchez Cadena RN 03/11/22 14:59 Electronically signed by [facility] Conversion Strategic Manager Cerner at 01/09/2023 10:50 AM CDT documented in this encounter Plan of Treatment Not on file documented as of this encounter Visit Diagnoses Not on filedocumented in this encounter Care Teams Fabric Inspector Relationship Specialty Start Date End Date Michaela Sousa APRN [address] [place] [address] PCP - General Nurse Practitioner 11/09/22 11/09/22 documented as of this encounter
--- OUTSIDE RECORDS SUMMARY | 2025-04-25 14:57 | XMS_ITS | Encounter Summary ---
Author Organization [employer] ([place], [place], [place], [place]) Address [address] [place] [address] Care Team Providers Care Multi Share Program Coordinator Name Role Phone Michaela Sousa APRN Primary Care Provider Encounter Details Date Type Department Care Team (Late st Contact Info) Description 03/11/2022 Transcribed Document [facility] [place] [address] [place] [address] ProviderTeena MD [address] [place] [address] Social History Tobacco Use Types Packs/Day Years [...] Date Tommie rded Speak language other than Chinese at home Not on file 10/15/2023 Want [...] In the last 10 days, have yo guero been in contact with someone who was confirmed or suspected to have Coronavirus/COVID-19? No / Unsure 11/11/2022 6:26 AM EST documented as of this encounter Miscellaneous Notes * Cerner Conversion Note - Historical Provider, - 03/11/2022 2:19 PM CDT [facility] Main OR PostOp Summary Primary Physician: Pavel ADAM MD-OBG Finalized Date/Time: 03/11/22 16:56:34 Pt. Name: ROCIO KOVACS JOVON [place]./Sex: 1990 Female Med Rec #: [id number] Physician: Pavel ADAM MD-OBG Financial #: [id number] Pt. Type: O Room/Bed: Admit/Disch: 03/11/22 09:42:00 - Institution: [facility] Main OR PostOp Case Times Entry 1 In PACU II 03/11/22 16:15:00 Ready for PACU II 03/11/22 16:37:00 Discharge Discharge from PACU 03/11/22 16:37:00 II Last Modified By: Amara Leon RN 03/11/22 16:56:28 Finalized By: Amara Leon RN Document Signatures Signed By: Amara Leon RN 03/11/22 16:56 Electronically signed by [facility] Conversion Flat Breakdown Processor Cerner at 01/09/2023 10:49 AM CDT documented in this encounter Plan of Treatment Not on file documented as of this encounter Visit Diagnoses Not on filedocumented in this encounter Care Teams Multi Share Program Coordinator Relationship Specialty Start Date End Date Michaela Sousa APRN [address] [place] [address] PCP - General Nurse Practitioner 11/09/22 11/09/22 documented as of this encounter
--- OUTSIDE RECORDS SUMMARY | 2025-04-25 14:57 | XMS_ITS | Encounter Summary ---
Author Organization [employer] ([place], [place], [place], [place]) Address [address] [place] [address] Care Team Providers Care Bass Mechanism Maker Name Role Phone Michaela Sousa APRN Primary Care Provider Encounter Details Date Type Department Care Team (Late st Contact Info) Description 03/11/2022 Transcribed Document [facility] [place] [address] [place] [address] ProviderTeena MD [address] [place] [address] Social History Tobacco Use Types Packs/Day Years [...] Date Tommie rded Speak language other than Panamanian at home Not on file 10/15/2023 Want [...] Conversion Note - Historical Provider, - 03/11/2022 11:31 AM CDT PAT Adult Entered On: 03/11/2022 11:33 EDT Performed On: 03/11/2022 11:31 EDT by Enedelia Andre RN Pain Assessment Pain Scale Goal : 5 Enedelia Andre RN - 03/11/2022 11:31 EDT Height and Weight, Clinical Dosing Height Source : Measured Height Entry Format : Long Height, Feet : 5 ft(Converted to: 152 cm, 60 Inch) Height, Inches : 9 Inch(Converted to: 0 ft 9 Inch, 22.86 cm) Clinical Height : 175.26 cm Weight Source : Standing scale Weight Entry Format : Long Clinical Dosing Weight : 76.82 kg Weight, Pounds : 169 lb Body Surface Area (BSA) : 1.92 m2 Body Mass Index : 25 kg/m2 (HI) [place] Body Weight : 66 kg Enedelia Andre RN - 03/11/2022 11:31 EDT Health Histories Smoking Status : Never (less than 100 in lifetime; none in last 30 days) Smokeless Tobacco Status : Never Enedelia Andre RN - 03/11/2022 11:31 EDT Social History (As Of: 03/11/2022 11:33:15 EDT) Infectious Disease History Does patient have symptoms of COVID-19? : No Tested for COVID19 in the past 14 days : No, Patient stated Does the Patient state known exposure to a COVID-19 positive case in the last 14 days? : No Patient Vaccinated for COVID-19 : Fully vaccinated Enedelia Andre RN - 03/11/2022 11:31 EDT Infectious Disease Risk Screening Grid Cough < 2 wks of unknown origin : NO Cough > 2 weeks : NO Blood in Sputum : NO Fever or self-reported Fever : NO Rash of unknown origin : NO Headache : NO Stiff neck : NO Night Sweats : NO Unexplained Weight Loss : NO Diarrhea (3 episode per day) : NO Enedelia Andre RN - 03/11/2022 11:31 EDT Physical contact outside [place] in the last 30 days : No Hospitalized in Foreign Country : No Infectious Disease History : None INF Disease TB Screening Calc : 0 INF Disease Recent Travel Calc : 0 Enedelia Andre RN - 03/11/2022 11:31 EDT COVID19 PreProcedure Screening Is this an Emergent or Add on Procedure? : No Date PreProcedure COVID-19 test known? : No Has patient been isolated since the test : No Exposed to COVID19 symptoms since test? : No Enedelia Andre RN - 03/11/2022 11:31 EDT Anesthesia/Transfusion History Family History of Anesthesia Reaction : Prior transfusion without reaction Transfusion History : Prior anesthesia reaction Type of Anesthesia Reaction : Excessive nausea/vomiting Family History of Anesthesia Reaction : None Enedelia Andre RN - 03/11/2022 11:31 EDT Advance Directive Patient has Advance Directive *Q : No, patient refuses Advance Directive information Enedelia Andre RN - 03/11/2022 11:31 EDT Camp Suicide Severity Rating Scale (C-SSRS) CSSRS Past Month Wish to be : No CSSRS Past Month Suicidal Thoughts : No CSSRS Lifetime Suicide Behavior : No Suicide Severity Rating Score : 0 Suicide Severity Rating : No Additional Care Required at this time Enedelia Andre RN - 03/11/2022 11:31 EDT Psychosocial History Currently in Unsafe Situation : No Enedelia Andre RN - 03/11/2022 11:31 EDT General Info Emergency Contact #1 : Nolan Kovacs Emergency Contact #2 : x Emergency Contact #2 Phone Number : x Emergency Contact #2 Relationship : x Identified Medical Decision Maker : x Primary Language : Panamanian Communication Barrier : None Work Adjustment Instructor Needed : No Enedelia Andre RN - 03/11/2022 11:41 EDT Want Family/Rep/Phys Notified of Admit : No Emergency Contact #1 Emergency Contact #1 Relationship : spouse Enedelia Andre RN - 03/11/2022 11:31 EDT Bib Scale Bib Sensory Perception : No impairment Bib Moisture : Rarely moist Bib Activity : Walks frequently Bib Mobility : No limitation Bib Nutrition : Excellent Bib Friction and Shear : No apparent problem Bib Score : 23 Enedelia Andre RN - 03/11/2022 11:31 EDT Sleep Apnea Risk Assmt Hx of Obstructive Sleep Apnea Diagnosis : No Snore Loudly : No Tired, Fatigued, or Sleepy During Day : No Observed Stopping Breathing During Sleep : No Have/Are Being Treated for Hypertension : No BMI Greater Than 35 kg/m2 : No Age over 50 Years Old : No Neck Circumference Greater Than 40 cm : No Gender Male : No STOP-BANG Sleep Apnea Risk Level Score : 0 Enedelia Andre RN - 03/11/2022 11:31 EDT documented in this encounter Plan of Treatment Not on file documented as of this encounter Visit Diagnoses Not on filedocumented in this encounter Care Teams Bass Mechanism Maker Relationship Specialty Start Date End Date Michaela Sousa APRN [address] [address] PCP - General Nurse Practitioner 11/09/22 11/09/22 documented as of this encounter
--- OUTSIDE RECORDS SUMMARY | 2025-04-25 14:57 | XMS_ITS | CCD ---
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
--- OUTSIDE RECORDS SUMMARY | 2025-04-25 14:58 | XMS_ITS | Clinical Summary ---
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 Name Role Phone Michaela Sousa APRN Primary Care Provider + [phone] Allergies Active Allergy Reactions Criticality Noted Date Comments Dicyclomine Hcl Other (See Comments) 02/27/2018 Side effect of eyes not adjusting and vision change Celecoxib Anaphylaxis High 06/13/2019 Celebrex; tolerates ibuprofen, ketorolac Coconut (Cocos Nucifera) Anaphylaxis High 12/09/2017 Latex Hives Medium 12/09/2017 Latex gloves Metoclopramide Other (See Comments) 07/06/2018 ERXTRAPYRMIDAL SIDE EFFECTS Twitchy tremors Nsaids GI Bleeding 09/22/2022 Pineapple Anaphylaxis High 12/09/2017 Sulfa Antibiotics Anaphylaxis,Hives High 12/09/2017 Medications Co-Enzyme Q10 100 MG capsule Take 4 capsules by mouth. Active vitamin (, CLASSIC, vitamin) tablet Take by mouth Daily. Active pantoprazole (PROTONIX) 40 MG EC tabletIndicatio ns:Hyperemesis gravidarum Take 1 tablet by mouth 2 (Two) Times a Day. 180 tablet 3 08/03/2024 Active docusate sodium 100 MG capsule Take 1 capsule by mouth 2 (Two) Times a Day As Needed for Constipation. 60 capsule 1 12/13/2024 10:53 AM EDT 12/13/2024 Active simethicone (MYLICON) 80 MG chewable tablet Chew 1 tablet 4 (Four) Times a Day As Needed for Flatulence. 30 tablet 12/13/2024 12:41 PM EDT 12/13/2024 Active furosemide (Lasix) 20 MG tablet Take 1 tablet by mouth 2 (Two) Times a Day. 6 tablet 12/13/2024 12:41 PM EDT 12/13/2024 Active polyethylene glycol (MIRALAX) 17 g packet Take 17 g by mouth Daily. 100 each 02/16/2025 Active sodium phosphate (FLEET) 7-19 GM/118ML ADULT enema Insert 1 enema into the rectum Every 6 (Six) Hours As Needed (constipation ). 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 Fall 04/08/2021 Abdominal pain 12/22/2020 Tear of left meniscus as current injury 12/17/19 Sepsis 12/14/2019 Shortness of breath 12/14/2019 Hematuria 12/14/2019 Intractable nausea and vomiting 09/23/2018 Moderate asthma 09/23/2018 Chronic blood loss anemia 09/22/2018 Overview (09/28/2018): Added automatically from request for surgery [id number] RLQ abdominal pain 09/22/2018 Overview (09/28/2018): Added automatically from request for surgery [id number] B12 deficiency 09/22/2018 Overview (09/28/2018): Added automatically from request for surgery [id number] Chronic anemia 09/18/2018 Narcotic habituation, continuous 09/17/2018 Anxiety disorder 05/12/2018 Vocal cord dysfunction 05/10/2018 Stridor 2018 Respiratory distress 05/07/2018 Moderate persistent asthma with acute exacerbati on 05/07/2018 Chronic nausea 05/07/2018 Epigastric abdominal pain 05/07/2018 Overview (05/12/2018): Added automatically from request for surgery [id number] Generalized abdominal pain 12/09/2017 Resolved Problems Problem Noted Date Diagnosed Date Resolved Date ROM (rupture of membranes), premature 12/10/2024 12/10/2024 Hematemesis 05/16/2022 05/18/2022 uterine contractions in third trimester, antepartum 04/24/2021 05/17/2021 Decreased movement 02/05/2021 11/20/2020 05/17/2021 Overview (11/20/2020): cfDNA Acute dehydration 12/14/2019 10/16/2020 Influenza B 12/14/2019 10/16/2020 Drug-induced constipation 09/22/2018 Overview (09/28/2018): Added automatically from request for surgery [id number] Non-cardiac chest pain 09/17/201810/16 Hypokalemia 09/17/2018 09/19/2018 Hypomagnesemia 09/17/2018 09/19/2018 Leukocytosis 05/07/2018 05/12/2018 Elevated liver enzymes 02/27/201810/16 Intractable nausea and vomiting 02/27/2018 03/01/2018 Intractable cyclical vomiting with nausea 02/27/2018 03/01/2018 Encounters Date Type Department Care Team Description 03/08/2025 Telephone [facility] [address] [place] [address] Aminata Nassar MD Advice Only 02/16/2025 6:42 PM EDT - 02/16/2025 8:43 PM EDT Emergency [facility] [address] [place] [id number] Sandra Caro MD Right lower quadrant pain (Primary Dx); Lower abdominal pain; Cyst of right ovary; Constipation, unspecified constipation type Discharge Disposition: Home or Self Care 02/16/2025 Travel from Last 3 Months Immunizations Immunization Administration Dates Next Due Fluzone (or Fluarix & Flulav al for VFC) >6mos 07/07/2018,06/26/2018(Deferred: Parental decision) Influenza Seasonal Injectable 07/15/2023, 013 Influenza, Unspecified 06/07/2018,2016,07/20/2016,2014 Family History Medical History Relation Name Comments Hyperlipidemia Father Hypertension Father Asthma Maternal Grandmother COPD Maternal Grandmother Hyperlipidemia Maternal Grandmother Hypertension Maternal Grandmother Lung cancer Maternal Grandmother COPD Mother Diabetes Mother Fibromyalgia Mother Hypothyroidism Mother Osteoarthritis Mother Seizures Mother Colon cancer Paternal Grandfather Diabetes Paternal Grandfather Hyperlipidemia Paternal Grandfather Hypertension Paternal Grandfather Hyperlipidemia Paternal Grandmother Hypertension Paternal Grandmother Relation Name Status Comments Father Alive Maternal Grandmother Mother Alive Paternal Grandfather Paternal Grandmother Social History Tobacco Use Types Packs/Day Years Used Date Smoking Tobacco: Never Passive Smoke Exposure: Never Smokeless Tobacco: Never Tobacco Cessation:Counseling Given: No Alcohol Use Standard Drinks/Week Comments No 0 (1 standard drink = 0.6 oz pur e alcohol) [facility] Utilities Answer Date Recorded In the past 12 months has e [employer], gas, oil, or water [employer] threatened to shut off services in your [...] Date Recorded Retired Total Score 0 05/07/2021 [facility] [place] [facility] - Occupational Stress [...] things needed for daily living? No 12/10/2024 [place] Depression Scale Answer Date Recorded [place] Depression Scale Total 2 12/22/2024 The thought [...] GED or equivalent No 12/10/2024 Preferred Language Montenegrin 12/10/2024 PHQ-2 Answer Date Recorded Patient Health [...] Sign Reading Time Taken Comments Blood Pressure 120/87 02/16/2025 7:30 PM EDT Pulse 59 02/16/2025 7:30 PM EDT Temperature 36.9 C (98.4 F) 02/16/2025 2:34 PM EDT Respiratory Rate 18 02/16/2025 2:34 PM EDT Oxygen Saturation 98% 02/16/2025 7:30 PM EDT Inhaled Oxygen Concentration - - Weight 72.6 kg (160 lb) 02/16/2025 2:34 PM EDT Height 172.7 cm (5' 8 ) 02/16/2025 2:34 PM EDT Body Mass Index 24.33 02/16/2025 2:34 PM EDT Plan of Treatment Upcoming Encounters Date Type Department Care Team (Late st Contact Info) Description 05/31/2025 3:00 PM EDT Office Visit [facility] [address] [phone] Leah Castillo, BUILDING CONSTRUCTION FOREMAN [address] [facility] [address] [place], [place] [phone] 06/28/2025 3:45 PM EDT Office Visit [facility] [address] [phone] Aminata Nassar MD [address] [place] [id number] Health Maintenance Due Date Last Done Comments Annual Gynecologic Pelvic an d Breast Exam 1992 Pneumococcal Vaccine 0-49 (1 of 2 - PCV) 2011 TDAP/TD VACCINES (1 - Tdap) 2011 ANNUAL PHYSICAL 12/14/2017 PAP SMEAR 10/18/2023 10/18/2020 COVID-19 Vaccine (3 - 2023-2 5 season) 2024 05/07/2021, 04/16/2021 INFLUENZA VACCINE 06/27/2025 07/15/2023, , 06/07/2018, Additional history exists HEPATITIS C SCREENING Completed 10/17/2020 , 12/08/2018, 12/10/2017 Medical Devices Implanted Type Area Outsole Rounder Device Identifier Shelf Expiration Date Model / Serial / Lot Stnt Percuflx No Gw 4.8x26 - [id number] Implanted:Qty: 1 on 12/18/2022 by Raulito Lancaster MD at [facility] Stent Right: Urinary Bladder [employer] 08/19/2025 [id number] / / [id number] Procedures Procedure Name Priority Date/Time Associated Diagnosis Comments SCANNED - IMAGING 04/06/2025 SCANNED - LABS 03/27/2025 CT ABDOMEN PELVIS W CONTRAST STAT 02/16/2025 5:20 PM EDT ECG 12-LEAD STAT 02/16/2025 5:05 PM EDT US NON-OB TRANSVAGINAL STAT 4:40 PM EDT US TESTICULAR OR OVARIAN VASCULAR LIMITED STAT 02/16/2025 4:40 PM EDT LIGHT BLUE TOP STAT 02/16/2025 4:06 PM EDT BLACK TOP STAT 02/16/2025 4:06 PM EDT GOLD TOP - SST STAT 02/16/2025 4:06 PM EDT LAVENDER TOP STAT 02/16/2025 4:06 PM EDT DK GREEN TOP STAT 02/16/2025 4:06 PM EDT CBC AND DIFFERENTIAL STAT 02/16/2025 4:06 PM EDT TSH RFX ON ABNORMAL TO FREE T4 STAT 02/16/2025 4:06 PM EDT PHOSPHORUS STAT 02/16/2025 4:06 PM EDT MAGNESIUM STAT 02/16/2025 4:06 PM EDT C-REACTIVE PROTEIN STAT 02/16/2025 4: 06 PM EDT PROCALCITONIN STAT 02/16/2025 4:06 PM EDT LACTIC ACID, PLASMA STAT 02/16/2025 4 :06 PM EDT TROPONIN STAT 02/16/2025 4:06 PM EDT CBC WITH AUTO DIFFERENTIAL STAT 02/16/2025 4:06 PM EDT HCG, QUANTITATIVE, STAT 02/16/2025 4:06 PM EDT LIPASE STAT 02/16/2025 4:06 PM EDT COMPREHENSIVE METABOLIC PANEL STAT 02/16/2025 4:06 PM EDT RAINBOW DRAW STAT 02/16/2025 4:06 PM EDT , URINE STAT 02/16/2025 2:41 PM EDT URINALYSIS W/ MICROSCOPIC IF INDICATED (NO CULTURE) STAT 02/16/2025 2:41 PM EDT PAP IG, HPV-HR (P&C LAB) Routine 10/18/2020 2:06 PM EST Less than 8 weeks gestation of HEPATITIS C ANTIBODY Routine 10/17/2020 2:08 PM EST Less than 8 weeks gestation of from Last 3 Months or Most Recently Relevant to Health Maintenance Results * IMAGING SCANNED (04/06/2025) Anatomical Region Laterality Modality Radiographic Isabel ging [facility] IMG DIAGNOSTIC IMAGING OR DERABLES Final Result * LABS SCANNED (03/27/2025) [facility] LAB BLOOD ORDERABLES Kate l Result * CT Abdomen Pelvis With Contrast (02/16/2025 5:20 PM EDT) Anatomical Region Laterality Modality Abdomen, Pelvis N/A Computed Tomogra phy 02/16/2025 5:30 PM EDT Impressions 02/16/2025 5:35 PM EDT Impression: 1. No definite acute CT abnormality of the abdomen or pelvis. 2. Prominent amount of stool in the colon, recommend clinical correlation for constipation. 3. Small right ovarian cyst. Electronically Signed: Amber Narvaez MD 02/16/2025 5:35 PM EDT Workstation ID: [id number] Narrative 02/16/2025 5:[address] ABDOMEN PELVIS W CONTRAST Date of Exam: 02/16/2025 5:16 PM EDT Indication: severe pelvic pain worse in the RLQ, guards over the appendix. Comparison: CT abdomen and pelvis 09/26/2024. Technique: Axial CT images were obtained of the abdomen and pelvis following the uneventful intravenous administration of 85 mL Isovue-300. Reconstructed coronal and sagittal images were also obtained. Automated exposure control and iterative construction methods were used. Findings: LUNG BASES: The lung bases are clear. LIVER: Unremarkable parenchyma without focal lesion. BILIARY/GALLBLADDER: The gallbladder is surgically absent. SPLEEN: Unremarkable PANCREAS: Unremarkable ADRENAL: Unremarkable KIDNEYS: Unremarkable parenchyma with no solid mass identified. No obstruction. No calculus identified. GASTROINTESTINAL/MESENTERY: No evidence of obstruction nor inflammation. The appendix is visualized and appears normal. There is a prominent amount of stool in the colon. MESENTERIC VESSELS: Patent. AORTA/IVC: Normal caliber. RETROPERITONEUM/LYMPH NODES: Unremarkable REPRODUCTIVE: 2 cm right ovarian cyst. The uterus is unremarkable. BLADDER: Unremarkable OSSEUS STRUCTURES: Typical for age with no acute process identified. Mild dextroconvex thoracolumbar curvature. There is a small fat-containing umbilical hernia. Procedure Note Amber Narvaez MD - 02/16/2025 CT ABDOMEN PELVIS W CONTRAST Date of Exam: 02/16/2025 5:16 PM EDT Indication: severe pelvic pain worse in the RLQ, guards over theappendix. Comparison: CT abdomen and pelvis 09/26/2024. Technique: Axial CT images were obtained of the abdomen and pelvisfollowing the uneventful intravenous administration of 85 mL Isovue-300.Reconstructed coronal and sagittal images were also obtained. Automatedexposure control and iterative construction methods were used. Findings: LUNG BASES: The lung bases are clear. LIVER: Unremarkable parenchyma without focal lesion. BILIARY/GALLBLADDER: The gallbladder is surgically absent. SPLEEN: Unremarkable PANCREAS: Unremarkable ADRENAL: Unremarkable KIDNEYS: Unremarkable parenchyma with no solid mass identified. Noobstruction. No calculus identified. GASTROINTESTINAL/MESENTERY: No evidence of obstruction nor inflammation.The appendix is visualized and appears normal. There is a prominent amountof stool in the colon. MESENTERIC VESSELS: Patent. AORTA/IVC: Normal caliber. RETROPERITONEUM/LYMPH NODES: Unremarkable REPRODUCTIVE: 2 cm right ovarian cyst. The uterus is unremarkable. BLADDER: Unremarkable OSSEUS STRUCTURES: Typical for age with no acute process identified. Milddextroconvex thoracolumbar curvature. There is a small fat-containing umbilical hernia. IMPRESSION: Impression: 1. No definite acute CT abnormality of the abdomen or pelvis. 2. Prominent amount of stool in the colon, recommend clinical correlationfor constipation. 3. Small right ovarian cyst. Electronically Signed: Amber Narvaez MD 02/16/2025 5:35 PM EDT Workstation ID: [id number] us Sandra Caro MD IMG CT ORDERABLES Final Result * ECG 12 Lead Electrolyte Imbalance (02/16/2025 5:05 PM EDT) QT Interval 396 ms ECG QTC Interval 408 ms ECG 02/16/2025 5:05 PM EDT 02/18/2025 4:07 PM EDT Narrative ECG - 02/18/2025 4:07 PM EDT Test Reason : Electrolyte Imbalance Blood Pressure : */* mmHG Vent. Rate : 64 BPM Atrial Rate : 64 BPM P-R Int : 134 ms QRS Dur : 82 ms QT Int : 396 ms P-R-T Axes : 29 64 44 degrees QTcB Int : 408 ms Normal sinus rhythm Normal ECG When compared with ECG of 08-Apr-2021 14:39, No significant change was found Confirmed by SANDRA CARO ([id number]) on 02/18/2025 4:07:31 PM Referred By: Confirmed By: SANDRA CARO Procedure Note Sandra Caro MD - 02/18/2025 Test Reason : Electrolyte Imbalance Blood Pressure : */* mmHG Vent. Rate : 64 BPM Atrial Rate : 64 BPM P-R Int : 134 ms QRS Dur : 82 ms QT Int : 396 ms P-R-T Axes : 29 64 44 degrees QTcB Int : 408 ms Normal sinus rhythm Normal ECG When compared with ECG of 08-Apr-2021 14:39, No significant change was found Confirmed by SANDRA CARO ([id number]) on 02/18/2025 4:07:31 PM Referred By: Confirmed By: SANDRA CARO Sandra Caro MD ECG ORDERABLES Final Re sult ECG * US Non-ob Transvaginal (02/16/2025 4:40 PM EDT) Anatomical Region Laterality Modality Body Ultrasound 02/16/2025 4:42 PM EDT Impressions 02/16/2025 4:53 PM EDT 1.2.5 cm right ovarian cyst, likely physiologic. 2.Uterus appears somewhat hypervascular, nonspecific. Electronically Signed: Edil Beckford MD 02/16/2025 4:53 PM EDT Workstation ID: [id number] Narrative 02/16/2025 4:53 PM EDT DATE: February 16, 2025 INDICATION: Pelvic pain COMPARISON: April 13, 2023 TECHNIQUE: Transvaginal pelvic ultrasound with duplex Doppler interrogation FINDINGS: The uterus measures 7.6 x 5.4 x 3.9 cm and appears normal in echotexture, although appears somewhat hypervascular. The endometrial stripe thickness measures 9.9 mm. The right ovary measures 2.9 x 2.3 x 2.6 cm and contains a 2.5 cm cyst. The left ovary measures 2.2 x 1.4 x 1.3 cm and appears normal. Normal appearing flow is present within both ovaries. Procedure Note Edil Beckford MD - 02/16/2025 DATE: February 16, 2025 INDICATION: Pelvic pain COMPARISON: April 13, 2023 TECHNIQUE: Transvaginal pelvic ultrasound with duplex Dopplerinterrogation FINDINGS: The uterus measures 7.6 x 5.4 x 3.9 cm and appears normal in echotexture,although appears somewhat hypervascular. The endometrial stripe thicknessmeasures 9.9 mm. The right ovary measures 2.9 x 2.3 x 2.6 cm and containsa 2.5 cm cyst. The left ovary measures 2.2 x 1.4 x 1.3 cm and appears normal. Normal appearing flow ispresent within both ovaries. IMPRESSION: 1.2.5 cm right ovarian cyst, likely physiologic. 2.Uterus appears somewhat hypervascular, nonspecific. Electronically Signed: Edil Beckford MD 02/16/2025 4:53 PM EDT Workstation ID: [id number] us Sandra Caro MD IMG US ORDERABLES Final Result * US Testicular or Ovarian Vascular Limited (02/16/2025 4:40 PM EDT) Anatomical Region Laterality Modality Testes, Vascular Ultrasound 02/16/2025 4:42 PM EDT Impressions 02/16/2025 4:53 PM EDT 1.2.5 cm right ovarian cyst, likely physiologic. 2.Uterus appears somewhat hypervascular, nonspecific. Electronically Signed: Edil Beckford MD 02/16/2025 4:53 PM EDT Workstation ID: [id number] Narrative 02/16/2025 4:53 PM EDT DATE: February 16, 2025 INDICATION: Pelvic pain COMPARISON: April 13, 2023 TECHNIQUE: Transvaginal pelvic ultrasound with duplex Doppler interrogation FINDINGS: The uterus measures 7.6 x 5.4 x 3.9 cm and appears normal in echotexture, although appears somewhat hypervascular. The endometrial stripe thickness measures 9.9 mm. The right ovary measures 2.9 x 2.3 x 2.6 cm and contains a 2.5 cm cyst. The left ovary measures 2.2 x 1.4 x 1.3 cm and appears normal. Normal appearing flow is present within both ovaries. Procedure Note Edil Beckford MD - 02/16/2025 DATE: February 16, 2025 INDICATION: Pelvic pain COMPARISON: April 13, 2023 TECHNIQUE: Transvaginal pelvic ultrasound with duplex Dopplerinterrogation FINDINGS: The uterus measures 7.6 x 5.4 x 3.9 cm and appears normal in echotexture,although appears somewhat hypervascular. The endometrial stripe thicknessmeasures 9.9 mm. The right ovary measures 2.9 x 2.3 x 2.6 cm and containsa 2.5 cm cyst. The left ovary measures 2.2 x 1.4 x 1.3 cm and appears normal. Normal appearing flow ispresent within both ovaries. IMPRESSION: 1.2.5 cm right ovarian cyst, likely physiologic. 2.Uterus appears somewhat hypervascular, nonspecific. Electronically Signed: Edil Beckford MD 02/16/2025 4:53 PM EDT Workstation ID: [id number] us Sandra Caro MD [facility] US ORDERABLES Final Result * Black Top (02/16/2025 4:06 PM EDT) Extra Tube Hold for add-ons. 02/16/2025 4:15 PM EDT [facility] Comment:Auto resulted. Blood Venipuncture / Unknown 02/16/2025 4:06 PM EDT 02/16/2025 4:13 PM EDT Sandra Caro MD LAB BLOOD ORDER ONLY Fin al Result Performing Organization Address City/[facility]/ZIP Co de Phone Number [facility]
[address] [place] [address], [place] [phone] * TSH Rfx On Abnormal To Free T4 (02/16/2025 4:06 PM EDT) TSH 1.210 0.270 - 4.200 uIU/mL 02/16/2025 4:57 PM EDT [facility] Blood Venipuncture / Unknown 02/16/2025 4:06 PM EDT 02/16/2025 4:13 PM EDT Sandra Caro MD LAB BLOOD ORDERABLES Fin al Result Performing Organization Address [facility]/ZIP Co de Phone Number [facility]
[address] [place] [address], [place] [phone] * Gold Top - SST (02/16/2025 4:06 PM EDT) Extra Tube Hold for add-ons. 02/16/2025 4:15 PM EDT [facility] Comment:Auto resulted. Blood Venipuncture / Unknown 02/16/2025 4:06 PM EDT 02/16/2025 4:13 PM EDT Sandra Caro MD LAB BLOOD ORDER ONLY Fin al Result Performing Organization Address City/[facility]/ZIP Co de Phone Number [facility]
[address] [place] [address], [place] [phone] * Green Top (Gel) (02/16/2025 4:06 PM EDT) Extra Tube Hold for add-ons. 02/16/2025 4:15 PM EDT [facility] Comment:Auto resulted. Blood Venipuncture / Unknown 02/16/2025 4:06 PM EDT 02/16/2025 4:13 PM EDT us Sandra Caro MD LAB BLOOD ORDER ONLY Fin al Result [facility]
[address] [place] [address], * Procalcitonin (02/16/2025 4:06 PM EDT) Procalcitonin 0.02 0.00 - 0.25 ng/mL 02/16/2025 4:57 PM EDT [facility] Blood Venipuncture / Unknown 02/16/2025 4:06 PM EDT 02/16/2025 4:13 PM EDT Narrative [facility] - 02/16/2025 4:57 PM EDT As a Marker for Sepsis (Non-Neonates): 1. <0.5 ng/mL represents a low risk of severe sepsis and/or septic shock. 2. >2 ng/mL represents a high risk of severe sepsis and/or septic shock. As a Marker for Lower Respiratory Tract Infections that require antibiotic therapy: PCT on Admission Antibiotic Therapy 6-12 Hrs later >0.5 Strongly Recommended >0.25 - <0.5 Recommended 0.1 - 0.25 Discouraged Remeasure/reassess PCT <0.1 Strongly Discouraged Remeasure/reassess PCT As 28 day mortality risk marker: Change in Procalcitonin Result (>80% or <=80%) if Day 0 (or Day 1) and Day 4 values are available. Refer to http://www.iednni-mkj-dwzxaspzjz.com Change in PCT <=80% A decrease of PCT levels below or equal to 80% defines a positive change in PCT test result representing a higher risk for 28-day all-cause mortality of patients diagnosed with severe sepsis for septic shock. Change in PCT >80% A decrease of PCT levels of more than 80% defines a negative change in PCT result representing a lower risk for 28-day all-cause mortality of patients diagnosed with severe sepsis or septic shock. Sandra Caro MD LAB BLOOD ORDERABLES Fin al Result [facility]
[address] [place] [address], * CBC Auto Differential (02/16/2025 4:06 PM EDT) [facility] WBC 6.26 3.40 - 10.80 10*3/mm3 02/16/2025 4:19 PM EDT [facility] RBC 4.29 3.77 - 5.28 10*6/mm3 02/16/2025 4:19 PM EDT [facility] Hemoglobin 12.2 12.0 - 15.9 g/dL 02/16/2025 4:19 PM EDT [facility] Hematocrit 37.6 34.0 - 46.6 % 02/16/2025 4:19 PM EDT [facility] MCV 87.6 79.0 - 97.0 fL 02/16/2025 4:19 PM EDT [facility] MCH 28.4 26.6 - 33.0 pg 02/16/2025 4:19 PM EDT [facility] MCHC 32.4 31.5 - 35.7 g/dL 02/16/2025 4:19 PM EDT [facility] RDW 13.6 12.3 - 15.4 % 02/16/2025 4:19 PM EDT [facility] RDW-SD 43.8 37.0 - 54.0 fl 02/16/2025 4:19 PM EDT [facility] MPV 9.0 6.0 - 12.0 fL 02/16/2025 4:19 PM EDT [facility] Platelets 285 140 - 450 10*3/mm3 02/16/2025 4:19 PM EDT [facility] Neutrophil % 63.8 42.7 - 76.0 % 02/16/2025 4:19 PM EDT [facility] Lymphocyte % 22.8 19.6 - 45.3 % 02/16/2025 4:19 PM EDT [facility] Monocyte % 8.0 5.0 - 12.0 % 02/16/2025 4:19 PM EDT [facility] Eosinophil % 4.3 0.3 - 6.2 % 02/16/2025 4:19 PM EDT [facility] Basophil % 0.8 0.0 - 1.5 % 02/16/2025 4:19 PM EDT [facility] Immature Grans % 0.3 0.0 - 0.5 % 02/16/2025 4:19 PM EDT [facility] Neutrophils, Absolute 3.99 1.70 - 7.00 10*3/mm3 02/16/2025 4:19 PM EDT [facility] Lymphocytes, Absolute 1.43 0.70 - 3.10 10*3/mm3 02/16/2025 4:19 PM EDT [facility] Monocytes, Absolute 0.50 0.10 - 0.90 10*3/mm3 02/16/2025 4:19 PM EDT [facility] Eosinophils, Absolute 0.27 0.00 - 0.40 10*3/mm3 02/16/2025 4:19 PM EDT [facility] Basophils, Absolute 0.05 0.00 - 0.20 10*3/mm3 02/16/2025 4:19 PM EDT [facility] [facility] Immature Grans, Absolute 0.02 0.00 - 0.05 10*3/mm3 02/16/2025 4:19 PM EDT [facility] nRBC 0.0 0.0 - 0.2 /100 WBC 02/16/2025 4:19 PM [facility] Blood Venipuncture / Unknown 02/16/2025 4:06 PM EDT 02/16/2025 4:13 PM EDT Sanrda Caro MD LAB BLOOD ORDERABLES Fin al Result Performing Organization Address [facility]/ZIP Co de Phone Number [facility]
[address] [place] [address], [place] [phone] * Lavender Top (02/16/2025 4:06 PM EDT) Extra Tube hold for add-on 02/16/2025 4:15 PM EDT [facility] Comment:Auto resulted Blood Venipuncture / Unknown 02/16/2025 4:06 PM EDT 02/16/2025 4:13 PM EDT Sandra Caro MD LAB BLOOD ORDER ONLY Fin al Result Performing Organization Address [facility] Co de Phone Number [facility]
[address] [place] [address], * Light Blue Top (02/16/2025 4:06 PM EDT) Extra Tube Hold for add-ons. 02/16/2025 4:15 PM EDT [facility] Comment:Auto resulted Blood Venipuncture / Unknown 02/16/2025 4:06 PM EDT 02/16/2025 4:13 PM EDT Sandra Caro MD LAB BLOOD ORDER ONLY Fin al Result Performing Organization Address City/[facility] Co de Phone Number [facility]
[address] [place] [address], [place] [phone] * High Sensitivity Troponin T (02/16/2025 4:06 PM EDT) HS Troponin T <6 <14 ng/L 02/16/2025 5:00 PM EDT [facility] Blood Venipuncture / Unknown 02/16/2025 4:06 PM EDT 02/16/2025 4:13 PM EDT [facility] - 02/16/2025 5:00 PM EDT High Sensitive Troponin T Reference Range: <14.0 ng/L- Negative Female for AMI <22.0 ng/L- Negative Male for AMI >=14 - Abnormal Female indicating possible myocardial injury. >=22 - Abnormal Male indicating possible myocardial injury. Clinicians would have to utilize clinical acumen, EKG, Troponin, and serial changes to determine if it is an Acute Myocardial Infarction or myocardial injury due to an underlying chronic condition. Sandra Caro MD LAB BLOOD ORDERABLES Fin al Result [facility]
[address] [place] [address], * C-reactive Protein (02/16/2025 4:06 PM EDT) C-Reactive Protein 0.32 0.00 - 0.50 mg/dL 02/16/2025 5:00 PM EDT [facility] Blood Venipuncture / Unknown 02/16/2025 4:06 PM EDT 02/16/2025 4:13 PM EDT Sandra Caro MD LAB BLOOD ORDERABLES Fin al Result [facility]
[address] [place] [address], * hCG, Quantitative, (02/16/2025 4:06 PM EDT) HCG Quantitative <0.10 mIU/mL 02/17/20 5:11 PM EDT [facility] Blood Venipuncture / Unknown 02/16/2025 4:06 PM EDT 02/16/2025 4:13 PM EDT Narrative [facility] - 02/16/2025 5:11 PM EDT HCG Ranges by Gestational Age Females - non- premenopausal </= 1mIU/mL HCG Females - postmenopausal </= 7mIU/mL HCG 3 Weeks 5.8 - 71.2 mIU/mL 4 Weeks 9.5 - 750 mIU/mL 5 Weeks 217 - 7,138 mIU/mL 6 Weeks 158 - 31,795 mIU/mL 7 Weeks 3,697 - 163,563 mIU/mL 8 Weeks 32,065 - 149,571 mIU/mL 9 Weeks 63,803 - 151,410 mIU/mL 10 Weeks 46,509 - 186,977 mIU/mL 12 Weeks 27,832 - 210,612 mIU/mL 14 Weeks 13,950 - 62,530 mIU/mL 15 Weeks 12,039 - 70,971 mIU/mL 16 Weeks 9,040 - 56,451 mIU/mL 17 Weeks 8,175 - 55,868 mIU/mL 18 Weeks 8,099 - 58,176 mIU/mL Sandra Caro MD LAB BLOOD ORDERABLES Fin al Result [facility]
[address] [place] [address], * Phosphorus (02/16/2025 4:06 PM EDT) Phosphorus 2.9 2.5 - 4.5 mg/dL 02/16/2025 5:00 PM EDT [facility] Blood Venipuncture / Unknown 02/16/2025 4:06 PM EDT 02/16/2025 4:13 PM EDT Sandra Caro MD LAB BLOOD ORDERABLES Fin al Result [facility]
[address] [place] [address], * Magnesium (02/16/2025 4:06 PM EDT) Magnesium 2.0 1.6 - 2.6 mg/dL 02/16/2025 5:01 PM EDT [facility] Blood Venipuncture / Unknown 02/16/2025 4:06 PM EDT 02/16/2025 4:13 PM EDT Sandra Caro MD LAB BLOOD ORDERABLES Fin al Result Performing Organization Address City/[facility]/ZIP Co de Phone Number [facility]
[address] [place] [address], * Lipase (02/16/2025 4:06 PM EDT) Lipase 18 13 - 60 U/L 02/16/2025 5:00 PM EDT [facility] Blood Venipuncture / Unknown 02/16/2025 4:06 PM EDT 02/16/2025 4:13 PM EDT Sandra Caro MD LAB BLOOD ORDERABLES Fin al Result Performing Organization Address [facility] de Phone Number [facility]
[address] [place] [address], * Lactic Acid, Plasma (02/16/2025 4:06 PM EDT) Lactate 1.4 0.5 - 2.0 mmol/L 02/16/2025 4:52 PM EDT [facility] Comment:Falsely depressed re sults may occur on samples drawn from patients receiving N-Acetylcysteine (NAC) or Metamizole. Blood Venipuncture / Unknown 02/16/2025 4:06 PM EDT 02/16/2025 4:13 PM EDT Sandra Caro MD LAB BLOOD ORDERABLES Fin al Result Performing Organization Address City/[facility] Co de Phone Number [facility]
[address] [place] [address], [place] [phone] * (ABNORMAL) Comprehensive Metabolic Panel (02/16/2025 4:06 PM EDT) [facility] Glucose 95 65 - 99 mg/dL 02/16/2025 5:04 PM EDT [facility] BUN 7 6 - 20 mg/dL 02/16/2025 5:04 PM EDT [facility] Creatinine 0.61 0.57 - 1.00 mg/dL 02/16/2025 5:04 PM EDT [facility] Sodium 141 136 - 145 mmol/L 02/16/2025 5:04 PM EDT [facility] Potassium 4.3 3.5 - 5.2 mmol/L 02/16/2025 5:04 PM EDT [facility] Comment:Slight hemolysis det ected by analyzer. Result may be falsely elevated. Chloride 107 98 - 107 mmol/L 02/16/2025 5:04 PM EDT [facility] CO2 22.0 22.0 - 29.0 mmol/L 02/16/2025 5:04 PM EDT [facility] Calcium 9.4 8.6 - 10.5 mg/dL 02/16/2025 5:04 PM EDT [facility] Total Protein 7.2 6.0 - 8.5 g/dL 02/16/2025 5:04 PM EDT [facility] Albumin 4.2 3.5 - 5.2 g/dL 02/16/2025 5:04 PM EDT [facility] ALT (SGPT) 14 1 - 33 U/L 02/16/2025 5:04 PM EDT [facility] AST (SGOT) 20 1 - 32 U/L 02/16/2025 5:04 PM T [facility] Comment:Slight hemolysis det ected by analyzer. Result may be falsely elevated. Alkaline Phosphatase 125(H) 39 - 117 U/L 02/16/2025 5:04 PM EDT [facility] Total Bilirubin <0.2 0.0 - 1.2 mg/dL 02/16/2025 5:04 PM EDT [facility] Globulin 3.0 gm/dL 02/16/2025 5:04 PM EDT [facility] Comment:Calculated Result A/G Ratio 1.4 g/dL 02/16/2025 5:04 PM EDT [facility] BUN/Creatinine Ratio 11.5 7.0 - 25.0 02/16/2025 5:04 PM EDT [facility] Anion Gap 12.0 5.0 - 15.0 mmol/L 02/16/2025 5:04 PM EDT [facility] eGFR 122.0 >60.0 mL/min/1.7 3 02/16/2025 5:04 PM EDT [facility] Blood Venipuncture / Unknown 02/16/2025 4:06 PM EDT 02/16/2025 4:13 PM EDT Narrative [facility] - 02/16/2025 5:04 PM EDT GFR Categories in Chronic Kidney Disease (CKD) GFR Category GFR (mL/min/1.73) Interpretation G1 90 or greater Normal or high (1) G2 60-89 Mild decrease (1) G3a 45-59 Mild to moderate decrease G3b 30-44 Moderate to severe decrease G4 15-29 Severe decrease G5 14 or less Kidney failure (1)In the absence of evidence of kidney disease, neither GFR category G1 or G2 fulfill the criteria for CKD. eGFR calculation 2020 CKD-EPI creatinine equation, which does not include race as a factor us Sandra Caro MD LAB BLOOD ORDERABLES Fin al Result [facility]
[address] [place] [address], * (ABNORMAL) Urinalysis With Microscopic If Indicated (No Culture) - Urine, Clean Catch (02/16/2025 2:41 PM EDT) Color, UA Yellow Yellow, Straw 02/16/2025 2:51 PM EDT [facility] Appearance, UA Clear Clear 02/16/2025 2:51 PM EDT [facility] pH, UA 6.0 5.0 - 8.0 02/16/2025 2:51 PM EDT [facility] Specific [place], UA 1.026 1.001 - 1.030 02/16/2025 2:51 PM EDT [facility] Glucose, UA Negative Negative 02/16/2025 2:51 PM EDT [facility] Ketones, UA Trace(A) Negative 02/16/2025 2:51 PM EDT [facility] Bilirubin, UA Negative Negative 02/16/2025 2:51 PM EDT [facility] Blood, UA Negative Negative 02/16/2025 2:51 PM EDT [facility] Protein, UA Negative Negative 02/16/2025 2:51 PM EDT [facility] Leuk Esterase, UA Negative Negative 02/16/2025 2:51 PM EDT [facility] Nitrite, UA Negative Negative 02/16/2025 2:51 PM EDT [facility] Urobilinogen, UA 0.2 E.U./dL 0.2 - 1.0 E.U./dL 02/16/2025 2:51 PM EDT [facility] Urine Urine specimen obtained by clean catch procedure / Unknown Collection / Unknown 02/16/2025 2:41 PM EDT 02/16/2025 2:46 PM EDT Narrative [facility] - 02/16/2025 2:51 PM EDT Urine microscopic not indicated. us Sandra Caro MD URINE ORDERABLES Final R esult [facility]
[address] [place] [address], * , Urine - Urine, Clean Catch (02/16/2025 2:41 PM EDT) HCG, Urine QL Negative Negative DISK DIFFUSION 02/16/2025 3:07 PM EDT [facility] Urine Urine specimen obtained by clean catch procedure / Unknown Collection / Unknown 02/16/2025 2:41 PM EDT 02/16/2025 2:46 PM EDT Sandra Caro MD URINE ORDERABLES Final R esult Performing Organization Address [facility] Co de Phone Number [facility]
[address] [place] [address], * Pap IG, HPV-hr (10/18/2020 2:06 PM EST) ThinPrep Vial Tash Jackson MD PATHOLOGY/CYTOLOGY ORDERABLES Fi nal Result Performing Organization Address [facility] Co de Phone Number [facility]
[address] [place] [address], * Hepatitis C Antibody (10/17/2020 2:08 PM EST) Hepatitis C Ab Non-Reacti ve Non-Reacti ve 10/17/2020 7:29 PM EST [facility] Blood Venipuncture / Unknown 10/17/2020 2:08 PM EST 10/17/2020 2:08 PM EST Narrative [facility] - 10/17/2020 7:29 PM EST Results may be falsely decreased if patient taking Biotin. Tash Jackson MD LAB BLOOD ORDERABLES Final Resul t Performing Organization Address City/[facility] Co de Phone Number [facility]
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 The last day before reporting a new confirmed COVID-19 would be 12/08/20. -Alida Banda RN 09/09/2020 12/25/2020 Insurance [facility] Advance Directives * CPR (Attempt to Resuscitate) (Latest Code Status on File) Date Activated Date Inactivated Comments 12/10/2024 3:43 PM 12/13/2024 2:43 PM Question Answer Comments Code Status (Patient has no pulse and is not breathing): CPR (Attempt to Resuscitate) Medical Interventions (Patie nt has pulse or is breathing): Full * CPR (Attempt to Resuscitate) Date Activated Date Inactivated Comments 12/10/2024 10:00 AM 12/10/2024 3:43 PM Question Answer Comments Code Status (Patient has no pulse and is not breathing): CPR (Attempt to Resuscitate) Medical Interventions (Patie nt has pulse or is breathing): Full Support Level Of Support Discussed With: Patient * CPR (Attempt to Resuscitate) Date Activated Date Inactivated Comments 05/16/2022 9:22 PM 05/18/2022 3:07 PM Question Answer Comments Code Status (Patient has no pulse and is not breathing): CPR (Attempt to Resuscitate) Medical Interventions (Patie nt has pulse or is breathing): Full Support Level Of Support Discussed With: Patient * CPR (Attempt to Resuscitate) Date Activated Date Inactivated Comments 05/16/2021 3:59 AM 05/19/2021 6:20 PM Question Answer Comments Code Status (Patient has no pulse and is not breathing): CPR (Attempt to Resuscitate) Medical Interventions (Patie nt has pulse or is breathing): Full * CPR (Attempt to Resuscitate) Date Activated Date Inactivated Comments 04/09/2021 2:28 PM 04/24/2021 9:18 PM Question Answer Comments Code Status (Patient has no pulse and is not breathing): CPR (Attempt to Resuscitate) Medical Interventions (Patie nt has pulse or is breathing): Full Level Of Support Discussed With: Patient Care Teams Water Filter Cleaner Relationship Specialty Start Date End Date Michaela Sousa APRN [address] [place] [address] [facility] [id number] PCP - General Internal Medicine 09/04/24
--- OUTSIDE RECORDS SUMMARY | 2025-04-25 14:58 | XMS_ITS | Patient Health Record ---
Author Organization [facility] Address [address] [place] [address] Care Team Providers Care Board Winder Name Role Phone Chelita Jackson Unavailable [phone] Migration, Provider Unavailable Unavailable Herman, Shivam Unavailable [phone] Rakesh Sonison Unavailable [phone] Anthony Luna Unavailable [phone] Lani Gould Unavailable [phone] Leah Acosta Unavailable [phone] Georgie Perez Unavailable [phone] Allergies Allergen (clinical drug ingredient) Drug/Non Drug Allergy documented on EMR Reaction Allergy Type Onset Date Status Food: Coconut (uncoded) Unspecified Allergy Active Food: Pineapple (uncoded) Unspecified Allergy Active Medications: Adhesive Tape (uncoded) Unspecified Allergy Active Unknown: Sulfur dioxide toxicity (uncoded) Unspecified Allergy Active CELEBREX (CELECOXIB CAPS) Unspecified Drug Allergy 01/27/2021 Active sulfamethoxazole / trimethoprim SULFAMETHOXAZOLE-T RIMETHOPRIM Unspecified Drug Allergy 01/27/2021 Active LATEX EXAM GLOVES (DISPOSABLE GLOVES) Unspecified Drug Allergy 01/27/2021 Active Non-steroidal anti-inflammatory agent (FN) NSAIDS (uncoded) Unspecified Allergy 01/27/2021 Active metoclopramide REGLAN (uncoded) Unspecified Allergy 2020 Active Results Component Value Reference Range Flag Notes *US OB Follow-Up Reviewed date:09/25/2024 07:57:44 AM Interpretation: Performing Lab: Notes/Report: [facility] Transabdominal Obstetric Study Report Name: ROCIO KOVACS Accession/Encounter No:[id number] : 1990 Age: 34 Gender: F Study Date: Sep 18, 2024 Study Time: 03:04 PM Reading Group: Chelita Jackson MD Referring Group: Lani Gould APRN Ordering Phys: Lani Gould APRN Performing User: Marlin Rodriguez RDMS Equipment: Affiniti 30 Study Quality: Good Indications: Growth and cervical length Risk Factors: shortened cervix. . MAB A growth ultrasound was performed. General Information Trimester: 2nd/3rd trimester Gestations: 1 : Intrauterine Gestational Age (Best) Best: 25w 6d Determined by: LMP YOAV: 2024-12-26 Gestational Age (LMP) LMP: 25w 6d First Day of LMP: 2024-03-21 YOAV: 2024-12-26 Gestational Age (Current US) Current US: 26w 0d YOAV: 2024-12-25 General Evaluation cardiac activity: Present Presentation/Position: Cephalic Placental location: Posterior Biometry (Fetus A) EFW: 874.2g 1 lb 15 oz 55% VIOLET-76 HR: 150 bpm BPD: 6.3 cm 25w 4d 29% HADLOCK-84 HC: 23.85 cm25w 6d 27% HADLOCK-84 AC: 21.57 cm26w 0d 47% HADLOCK-84 FL: 4.76 cm 25w 6d 37% HADLOCK-84 FL/HC: 0.2 HC/AC: 1.11 FL/BPD: 0.76 FL/AC: 0.22 Anatomy (Fetus A) Stomach: Normal Right kidney: Normal Left kidney: Normal Bladder: Normal Findings: Anatomy: Sonographic evaluation reveals thakkar intrauterine in cephalic position. Posterior placenta. cardiac activity present. growth appears normal. Maternal Anatomy: Cervix is 2.5 cm long. Conclusions: Thakkar IUP noted with cardiac activity. growth is consistent with dating. Fluid appears normal Cervix 2.5 cm with no evidence of funneling. Approved By: Chelita Jackson MD Approved at: September 20, 2024 07:34 PM EST Electronically Signed on Studycast ROCIO KOVACS 2024-09-18 Page 1 of 1 Imaging Center - , [facility] * OB Follow-Up Reviewed date:11/01/2024 03:28:29 PM Interpretation: Performing Lab: Notes/Report: [facility] Transabdominal Obstetric Study Report Name: ROCIO KOVACS Accession/Encounter No:[id number] : 1990 Age: 34 Gender: F Study Date: Nov 01, 2024 Study Time: 10:03 AM Reading Group: Chelita Jackson MD Referring Group: Georgie Perez NP Ordering Phys: Georgie Perez NP Performing User: Renate Duran RDMS Equipment: Affiniti 30 Study Quality: Good Indications: growth scan Risk Factors: Insufficient OB care Prior Hx of MAB A growth ultrasound was performed. General Information Trimester: 2nd/3rd trimester Gestations: 1 : Intrauterine Gestational Age (Best) Best: 32w 1d Determined by: Previous US YOAV: 2024-12-26 Gestational Age (Prev Study) Previous US: 32w 1d Previous Study: Aug 2024 by LMP YOAV: 2024-12-26 Gestational Age (Current US) Current US: 32w 0d YOAV: 2024-12-27 General Evaluation cardiac activity: Present Presentation/Position: Cephalic Placental location: Posterior Amniotic fluid index: 11.84 cm LUQ: 2.52 cm LLQ: 2.04 cm RUQ: 3.32 cm RLQ: 3.96 cm Fluid: Normal Biometry (Fetus A) EFW: 1860.5g 4 lb 2 oz 52% VIOLET-76 HR: 143 bpm BPD: 7.91 cm 31w 5d 29% HADLOCK-84 HC: 29.4 cm 32w 3d 21% HADLOCK-84 AC: 28.54 cm32w 4d 62% HADLOCK-84 FL: 5.86 cm 30w 4d 7% HADLOCK-84 FL/HC: 0.2 HC/AC: 1.03 FL/BPD: 0.74 FL/AC: 0.21 Anatomy (Fetus A) Stomach: Normal Diaphragm: Normal Bladder: Normal Findings: Anatomy: Sonographic evaluation reveals thakkar intrauterine in cephalic position. Posterior placenta. cardiac activity present. growth appears normal. Normal ROBERTH (ROBERTH = 11 .84). Conclusions: Thakkar IUP noted with cardiac activity. growth is consistent with dating. Fluid appears normal movement and breathing noted. Approved By: Chelita Jackson MD Approved at: November 01, 2024 12:19 PM EST Electronically Signed on Studycast ROCIO KOVACS 2024-11-01 Page 1 of 1 [facility] - , [facility] Group B Strep by PCR w/ PCN allergy Reviewed date:11/27/2024 09:52:59 PM Interpretation:Negative Performing Lab: Notes/Report: LabFloobits Testing performed at: [CB] [facility], [address] [place] [address], [phone], , Residency Director: Jean Kebede, PhD Strep Gp B GREYSON+Rflx Negative Negative N Centers for Disease Control and Prevention (CDC) and [place] [employer] of Obstetricians and Gynecologists (ACOG) guidelines for prevention of group B streptococcal (GBS) disease specify co-collection of a vaginal and rectal swab specimen to maximize sensitivity of GBS detection. Per the CDC and ACOG, swabbing both the lower vagina and rectum substantially increases the yield of detection compared with sampling the vagina alone. Penicillin G, ampicillin, or cefazolin are indicated for intrapartum prophylaxis of GBS colonization. Reflex susceptibility testing should be performed prior to use of clindamycin only on GBS isolates from penicillin- allergic women who are considered a high risk for anaphylaxis. Treatment with vancomycin without additional testing is warranted if resistance to clindamycin is noted. Comprehensive Metabolic Pane l (CMP) Reviewed date:09/10/2024 11:14:29 PM Interpretation:Normal Performing Lab: Notes/Report: Normal CBC (NO DIFF) Reviewed date:10/04/2024 07:54:13 AM Interpretation:11.6 / 34.6 Performing Lab: Notes/Report: WBC, CORRECTED 9.71 3.40-10.80 10*3/mm3 ERYTHROCYTES IN BLOOD BY AUTOMATED COUNT 3.76 3.77-5.28 10*6/mm3 L HEMOGLOBIN (G/DL) IN BLOOD 11.6 12.0-15.9 g/dL L HEMATOCRIT (%) BY AUTOMATED COUNT 34.6 34.0-46.6 % RBC MCV (FL) BY AUTOMATED COUNT 92.0 79.0-97.0 fL RBC MCH (PG) BY AUTOMATED COUNT 30.9 26.6-33.0 pg RBC MCHC (G/DL) BY AUTOMATED COUNT 33.5 31.5-35.7 g/dL RBC RDW (%) BY AUTOMATED COUNT 12.5 12.3-15.4 % RDW-SD 41.7 37.0-54.0 fl MEAN PLATELET VOLUME (FL) BY AUTOMATED COUNT 9.7 6.0-12.0 fL PLATELETS BY AUTOMATED COUNT 248 140-450 10*3/mm3 Lab specimens received at a [facility].?See result details for the performing location information. GLUCOSE, POST 50 GM GLUCOLA Reviewed date:10/03/2024 03:01:33 PM Interpretation:passed - 82 Performing Lab: Notes/Report: GESTATIONAL GCT 82 65-139 mg/dL Lab spe cimens received at a [facility].?See result details for the performing location information. ANTIBODY SCREEN Reviewed date:10/03/2024 03:20:01 PM Interpretation:negative Performing Lab: Notes/Report: ANTIBODY SCREEN Negative Lab speci mens received at a [facility].?See result details for the performing location information. TREPONEMA PALLIDUM (SYPHILIS ) SCREENING CASCADE Reviewed date:10/04/2024 07:53:59 AM Interpretation:non reactive Performing Lab: Notes/Report: Reactive results will reflex RPR testing. TREPONEMAL AB TOTAL Non-Reactive Non-Reacti Lab specimens received at a [facility].?See result details for the performing location information. TISSUE PATHOLOGY EXAM Reviewed date:12/13/2024 01:05:40 PM Interpretation: Performing Lab: Notes/Report: LAB AP CASE REPORT Surgical Pathology Report Case: [id number] LAB AP CASE REPORT Authorizing Provider : Shivam Sutton MD Collected: 12/10/2024 01:35 PM LAB AP CASE REPORT Ordering Location: [facility] Received: 12/11/2024 06:35 AM LAB AP CASE REPORT LABOR DELIVERY LAB AP CASE REPORT Pathologist: Ignacia Piedra DO LAB AP CASE REPORT Specimen: Fallopian Tubes, Bilateral LAB AP CLINICAL INFORMATION Encounter for sterilization LAB AP FINAL DIAGNOSIS BILATERAL FALLOPIAN TUBES, STERILIZATION: LAB AP FINAL DIAGNOSIS Complete cross-sections of bilateral fallopian tubes identified LAB AP FINAL DIAGNOSIS at [address] [facility] LAB AP GROSS DESCRIPTION 1. Fallopian Tubes, Bilateral. BEAKER LAB AP GROSS DESCRIPTION Received in formalin labeled bilateral fallopian tube are 2 intact, undesignated, fimbriated fallopian tubes averaging 9 cm long by 0.8 cm in diameter. Sectioning of each fallopian tube reveals an unremarkable stellate lumen. Developing Machine Tender sections of each tube to include the bisected fimbria and full-thickness cross-sections are submitted separately in 1 A- 1B. HDM LAB AP MICROSCOPIC DESCRIPTION The slides are reviewed and demonstrate histopathologic features supporting the above rendered diagnosis. Lab specimens received at a [facility].?See result details for the performing location information. CBC WITH AUTO DIFFERENTIAL Reviewed date:12/12/2024 01:48:25 PM Interpretation: Performing Lab: Notes/Report: WBC, CORRECTED 11.52 3.40-10.80 10*3/mm3 H ERYTHROCYTES IN BLOOD BY AUTOMATED COUNT 3.88 3.77-5.28 10*6/mm3 HEMOGLOBIN (G/DL) IN BLOOD 11.4 12.0-15.9 g/dL L HEMATOCRIT (%) BY AUTOMATED COUNT 34.9 34.0-46.6 % RBC MCV (FL) BY AUTOMATED COUNT 89.9 79.0-97.0 fL RBC MCH (PG) BY AUTOMATED COUNT 29.4 26.6-33.0 pg RBC MCHC (G/DL) BY AUTOMATED COUNT 32.7 31.5-35.7 g/dL RBC RDW (%) BY AUTOMATED COUNT 12.8 12.3-15.4 % RDW-SD 42.2 37.0-54.0 fl MEAN PLATELET VOLUME (FL) BY AUTOMATED COUNT 9.7 6.0-12.0 fL PLATELETS BY AUTOMATED COUNT 190 140-450 10*3/mm3 NEUTROPHILS RELATIVE PERCENT BY AUTOMATED COUNT 83.5 42.7-76.0 % H LYMPHOCYTES RELATIVE PERCENT BY AUTOMATED COUNT 7.1 19.6-45.3 % L MONOCYTES RELATIVE PERCENT BY AUTOMATED COUNT 6.7 5.0-12.0 % EOSINOPHILS RELATIVE PERCENT BY AUTOMATED COUNT 1.4 0.3-6.2 % BASOPHILS RELATIVE PERCENT BY AUTOMATED COUNT 0.4 0.0-1.5 % IMMATURE GRANULOCYTES RELATIVE PERCENT 0.9 0.0-0.5 % H NEUTROPHILS ABSOLUTE COUNT BY AUTOMATED COUNT 9.62 1.70-7.00 10*3/mm3 H LYMPHOCYTES ABSOLUTE COUNT BY AUTOMATED COUNT 0.82 0.70-3.10 10*3/mm3 MONOCYTES ABSOLUTE COUNT BY AUTOMATED COUNT 0.77 0.10-0.90 10*3/mm3 EOSINOPHILS ABSOLUTE COUNT BY AUTOMATED COUNT 0.16 0.00-0.40 10*3/mm3 BASOPHILS ABSOLUTE COUNT BY AUTOMATED COUNT 0.05 0.00-0.20 10*3/mm3 IMMATURE GRANULOCYTES ABSOLUTE COUNT 0.10 0.00-0.05 10*3/mm3 H NRBC (PER 100 WBCS) 0.0 0.0-0.2 /100 WBC Lab specimens received at a [facility].?See result details for the performing location information. Uric Acid, Serum Reviewed date:11/01/2024 02:12:09 PM Interpretation: Performing Lab: Notes/Report: LDH Reviewed date:11/01/2024 02:11:41 PM Interpretation: Performing Lab: Notes/Report: Comprehensive Metabolic Pane l (CMP) Reviewed date:11/01/2024 03:32:55 PM Interpretation:Normal Performing Lab: Notes/Report: Normal CBC Reviewed date:11/01/2024 02:12:26 PM Interpretation: Performing Lab: Notes/Report: CBC (NO DIFF) Reviewed date:07/26/2024 01:57:15 PM Interpretation:11.8 Performing Lab: Notes/Report: WBC, CORRECTED 9.27 3.40-10.80 10*3/mm3 ERYTHROCYTES IN BLOOD BY AUTOMATED COUNT 3.97 3.77-5.28 10*6/mm3 HEMOGLOBIN (G/DL) IN BLOOD 11.8 12.0-15.9 g/dL L HEMATOCRIT (%) BY AUTOMATED COUNT 36.1 34.0-46.6 % RBC MCV (FL) BY AUTOMATED COUNT 90.9 79.0-97.0 fL RBC MCH (PG) BY AUTOMATED COUNT 29.7 26.6-33.0 pg RBC MCHC (G/DL) BY AUTOMATED COUNT 32.7 31.5-35.7 g/dL RBC RDW (%) BY AUTOMATED COUNT 12.5 12.3-15.4 % RDW-SD 41.1 37.0-54.0 fl MEAN PLATELET VOLUME (FL) BY AUTOMATED COUNT 9.6 6.0-12.0 fL PLATELETS BY AUTOMATED COUNT 254 140-450 10*3/mm3 Lab specimens received at a [facility].?See result details for the performing location information. *US OB Detailed Anatomy Reviewed date:08/23/2024 10:39:14 AM Interpretation: Performing Lab: Notes/Report: [facility] Transabdominal Obstetric Study Report Name: ROCIO KOVACS Accession/Encounter No:[id number] : 1990 Age: 34 Gender: F Study Date: Aug 22, 2024 Study Time: 03:39 PM Reading Group: Chelita Jackson MD Referring Group: Leah Acosta DO Ordering Phys: Leah Acosta DO Performing User: Marlin Rodriguez RDMS Equipment: Affiniti 30 Study Quality: Good Indications: Anatomy Risk Factors: C-sec. MAB An anatomy ultrasound was performed. General Information Trimester: 2nd/3rd trimester Gestations: 1 : Intrauterine Gestational Age (Best) Best: 22w 0d YOAV: 2024-12-26 Gestational Age (Current US) Current US: 22w 1d YOAV: 2024-12-25 Gestational Age (Other) Other: 22w 0d YOAV: 2024-12-26 General Evaluation gender: F cardiac activity: Present Presentation/Position: Cephalic Placental location: Posterior Biometry (Fetus A) EFW: 502.2g 1 lb 2 oz HR: 153 bpm BPD: 5.17 cm 21w 5d 34% HADLOCK-84 HC: 19.43 cm21w 5d 24% HADLOCK-84 AC: 17.96 cm22w 6d 69% HADLOCK-84 FL: 3.81 cm 22w 1d 46% HADLOCK-84 FL/HC: 0.2 HC/AC: 1.08 FL/BPD: 0.74 FL/AC: 0.21 Cisterna magna: 5.6 mm Lateral vents: 3.7 mm TCD: 2.26 cm 22w 3d 35% Anatomy (Fetus A) Midline falx: Normal Cisterna magna: Normal Choroid plexus: Normal Lateral ventricles: Normal Cerebellum: Normal CSP: Normal Orbits: Normal Face: Normal Profile: Normal Nasal bone: Normal Nose/Lips: Normal Right upper extr: Normal Right lower extr: Normal Left upper extr: Normal Left lower extr: Normal 4-chamber heart: Normal LVOT: Normal RVOT: Normal Cardiac rhythm: Normal 3VTV: Normal 3VV: Normal Spine: Normal Stomach: Normal Diaphragm: Normal Bowel: Normal Right kidney: Normal Left kidney: Normal Bladder: Normal Abdom. cord insert: Normal Cord vessels: 3 vessel cord Findings: Anatomy: Sonographic evaluation reveals thakkar intrauterine in cephalic position. Posterior placenta. cardiac activity present. growth appears normal. Maternal Anatomy: Cervix is 2.53 cm long. Conclusions: Thakkar IUP noted with cardiac activity. No anomalies noted at this time. growth is consistent with dating. Fluid appears normal Cervical length ranges from 2.4-2.6 cm with no evidence of funneling. 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 Currently Diagnosis 1 Rectal bleeding (K62 .5) Referral Organization [facility] Referring Provider First Name Leah Referring Provider Last Name Dave Referring Provider Speciality OB - Gynec ology Referral Priority Routine Referral Appointment Date 08/03/2024 Reason skin issues in pregn paul Diagnosis 1 Skin abnormality (L9 8.9) Referral Organization [facility] Referring Provider First Name Georgie Referring Provider Last Name Chris Referring Provider Speciality OB - Gynec ology General Notes Antonia Moulton 08/31 09:43:11 AM >Faxed referral to [facility] once received office will contact pt to schedule appt Referral Priority Routine Reason IV 1L banana bag w/ thiamine added x2 weekly for 1 month Diagnosis 1 Excessive vomiting (O21.9) Diagnosis 2 Encounter for superv ision of other normal , second trimester (Z34.82) Diagnosis 3 22 weeks gestation o f (Z3A.22) Referral Organization [facility] Referring Provider First Name Shivam Referring Provider Last Name Herman Referring Provider Speciality OB - Gynec ology General Notes Antonia Moulton 09/18 03:52:27 PM >Pt went to er for fluids and has zofran this is no longer needed Referral Priority Urgent Medications Medication SIG (Take, Route, Frequency, Duration) Notes Start Date End Date Status Gabapentin 12/12/2018 Active hydrOXYzine HCl 11/02/2018 Act jorden Lexapro Active Anaprox DS 1 tablet oral Q12H 12/22/2018 Active Methergine 0.2 MG Tablet 1 tablet Orally Three times a day; Duration: 3 days 12/27/2024 Active Ketorolac Tromethamine 12/06/2018 Active Ondansetron 12/13/2018 Active Propranolol HCl 11/10/2018 Act jorden Social History Tobacco Use: Social History Observation Description Date Details (start date - stop date) Never Smoker NA - NA Sex Assigned At : Social History Observation Description Sex Assigned At Female Social History Drugs/Alcohol: Social Info Question Answer Notes Drugs Have you used drugs other than those for medical reasons in the past 12 months? No Steroid Use Have you used anabol ic (body building) steroids? No Drug/Alcohol: Social Info Question Answer Notes AUDIT-C (Standard) Did you have a drink containing alcohol in the past year? No Tobacco Use: Social Info Question Answer Notes Tobacco Control (Standard) Tobacco use: Nonsmoker Additional Details Category Social Info Options Details Miscellaneous: Domestic violence: No Do you have any advent, m oral, or cultural beliefs or customs that your provider should know about? No Would you object to blood products in the event of an emergency? 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 Problem History of section (497770455) History of delivery (Z98.891) Active confirmed Problem Sterilization requested (situation) (408916537) Request for sterilization (Z30.2) Active confirmed Problem Abnormal uterine bleeding (41135639702387) Abnormal uterine bleeding (N93.9) Active confirmed Problem History of hemorrhage (937450764) History of hemorrhage (Z87.59) Active confirmed Vital Signs Blood pressure diastolic 60 mm Hg 12/27/2024 Height 69 in 12/27/2024 Blood pressure systolic 118 mm Hg 12/27/2024 Weight 149.4 lbs 12/27/2024 BMI 22.06 kg/m2 12/27/2024 Encounters Encounter Location Date Provider Diagnosis [facility] [address] [place] [address] 09/07/2024 Leah Acosta Encounter for supervision of other normal , second trimester Z34.82 [facility] [address] [place] [address] 09/11/2024 Chelita Jackson [facility] [address] [place] [address] 09/11/2024 Chelita Jackson Encounter for other screening follow-up Z36.2 [facility] [address] [place] [address] 10/04/2024 [facility] [address] [place] [address] 11/30/2024 [facility] [address] [place] [address] 12/01/2024 [facility] [address] [place] [address] 12/13/2024 [facility] [address] [place] [address] 12/18/2024 [facility] Encounter for routine follow-up Z39.2 [facility] [address] [place] [address] 01/10/2025 [facility] [address] [place] [address] 11/22/2024 [facility] [address] [place] [address] 12/12/2024 [facility] [address] [place] [address] 12/13/2024 [facility] [address] [place] [address] 12/14/2024 [facility] [address] [place] [address] 12/14/2024 [facility] [address] [place] [address] 12/14/2024 [facility] [address] [place] [address] 12/26/2024 [facility] Abnormal uterine bleeding N93.9 [facility] [address] [place] [address] 12/26/2024 [facility] [address] [place] [address] 12/28/2024 [facility] [address] [place] [address] 12/31/2024 [facility] [address] [place] [address] 01/15/2025 [facility] [address] [place] [address] 12/27/2024 Shivam Sutton Encounter for routine follow-up Z39.2 and Encounter for screening for maternal depression Z13.32 [facility] [address] [place] [address] 07/24/2024 Leah Acosta Encounter for supervision of other normal , second trimester Z34.82 ; 17 weeks gestation of Z3A.17 ; Bruising T14.8XXA ; Chronic anemia D64.9 ; History of delivery Z98.891 ; Request for sterilization Z30.2 ; History of hemorrhage Z87.59 ; Gene mutation Z15.89 ; Hx of hepatic disease Z87.19 and Excessive vomiting O21.9 [facility] [address] [place] [address] 08/22/2024 Georgie Perez 22 weeks gestation of Z3A.22 and Encounter for supervision of other normal , second trimester Z34.82 [facility] [address] [place] [address] 09/18/2024 Lani Gould 28 weeks gestation of Z3A.28 [facility] [address] [place] [address] 10/03/2024 Valencia Son Encounter for supervision of other normal , third trimester Z34.83 and 28 weeks gestation of Z3A.28 [facility] [address] [place] [address] 10/17/2024 Shivam Sutton 30 weeks gestation of Z3A.30 ; Encounter for supervision of other normal , third trimester Z34.83 and Hyperemesis gravidarum O21.0 [facility] [address] [place] [address] 11/01/2024 Georgie Perez Encounter for supervision of other normal , third trimester Z34.83 and 32 weeks gestation of Z3A.32 [facility] [address] [place] [address] 11/14/2024 Shivam Sutton 34 weeks gestation of Z3A.34 ; Encounter for supervision of other normal , third trimester Z34.83 and labor without delivery O60.00 [facility] [address] [place] [address] 11/23/2024 [facility] Other specified screening Z36.89 [facility] [address] [place] [address] 11/28/2024 Georgie Perez Encounter for supervision of other normal , third trimester Z34.83 and 36 weeks gestation of Z3A.36 [facility] [address] [facility] [address] [place] [address] 11/30/2024 [facility] 36 weeks gestation of Z3A.36 ; Encounter for supervision of other normal , third trimester Z34.83 and Uterine contractions O47.9 [facility] [address] [facility] [address] [place] [address] 12/05/2024 [facility] 37 weeks gestation of Z3A.37 and Encounter for supervision of other normal , third trimester Z34.83 [facility] [address] [facility] [address] [place] [address] 08/22/2024 Leah Acosta Encounter for supervision of other normal , second trimester Z34.82 [facility] [address] [facility] [address] [place] [address] 09/18/2024 Lani Gould Encounter for other screening follow-up Z36.2 [facility] [address] [facility] [address] [place] [address] 11/01/2024 Georgie Perez Encounter for supervision of other normal , third trimester Z34.83 [facility] IP [address] [place] [address] 12/10/2024 [facility] E [address] [facility] [address] [place] [address] 04/29/2024 Provider Migration Assessments Encounter Date Diagnosis (ICD Code) Assessment Notes Treatment Notes Treatment Clinical Notes Section Notes 11/14/2024 34 weeks gestation of (ICD-10 - Z3A.34) 11/14/2024 Encounter for supervision of other normal , third trimester (ICD-10 - Z34.83) 11/28/2024 36 weeks gestation of (ICD-10 - Z3A.36) 11/28/2024 Encounter for supervision of other normal , third trimester (ICD-10 - Z34.83) 10/03/2024 28 weeks gestation of (ICD-10 - Z3A.28) 10/03/2024 Encounter for supervision of other normal , third trimester (ICD-10 - Z34.83) 12/05/2024 37 weeks gestation of (ICD-10 - Z3A.37) 12/05/2024 Encounter for supervision of other normal , third trimester (ICD-10 - Z34.83) 09/07/2024 Encounter for supervision of other normal , second trimester (ICD-10 - Z34.82) 09/11/2024 Encounter for other screening follow-up (ICD-10 - Z36.2) 11/01/2024 Encounter for supervision of other normal , third trimester (ICD-10 - Z34.83) 11/01/2024 32 weeks gestation of (ICD-10 - Z3A.32) 11/01/2024 Encounter for supervision of other normal , third trimester (ICD-10 - Z34.83) 11/23/2024 Other specified screening (ICD-10 - Z36.89) 11/30/2024 36 weeks gestation of (ICD-10 - Z3A.36) 11/30/2024 Encounter for supervision of other normal , third trimester (ICD-10 - Z34.83) 07/24/2024 17 weeks gestation of (ICD-10 - Z3A.17) 07/24/2024 Encounter for supervision of other normal , second trimester (ICD-10 - Z34.82) 08/22/2024 Encounter for supervision of other normal , second trimester (ICD-10 - Z34.82) 08/22/2024 22 weeks gestation of (ICD-10 - Z3A.22) 08/22/2024 Encounter for supervision of other normal , second trimester (ICD-10 - Z34.82) 09/18/2024 Encounter for other screening follow-up (ICD-10 - Z36.2) 09/18/2024 28 weeks gestation of (ICD-10 - Z3A.28) 10/17/2024 30 weeks gestation of (ICD-10 - Z3A.30) 10/17/2024 Encounter for supervision of other normal , third trimester (ICD-10 - Z34.83) 12/27/2024 Encounter for routine follow-up (ICD-10 - Z39.2) restrictions reviewed. RTC for 6w PPV. Rx methergine x 72h if bleeding increases. Revewed return precautions to ED 12/18/2024 Encounter for routine follow-up (ICD-10 - Z39.2) * Reviewed normal care and call parameters. * Routine post- visit scheduled. * Visit scheduled to address immediate concerns/issu es identified today. * Referral to support. * Reviewed glucose screening and scheduled. 12/26/2024 Abnormal uterine bleeding (ICD-10 - N93.9) 12/27/2024 Encounter for screening for maternal depression (ICD-10 - Z13.32) 11/14/2024 labor without delivery (ICD-10 - O60.00) 10/17/2024 Hyperemesis gravidarum (ICD-10 - O21.0) 07/24/2024 Bruising (ICD-10 - T14.8XXA) 11/30/2024 Uterine contractions (ICD-10 - O47.9) 07/24/2024 Chronic anemia (ICD-10 - D64.9) 07/24/2024 History of delivery (ICD-10 - Z98.891) 07/24/2024 Request for sterilization (ICD-10 - Z30.2) 07/24/2024 History of hemorrhage (ICD-10 - Z87.59) 07/24/2024 Gene mutation (ICD-10 - Z15.89) 07/24/2024 Hx of hepatic disease (ICD-10 - Z87.19) 07/24/2024 Excessive vomiting (ICD-10 - O21.9) Nausea and vomiting in Plan Of Treatment No Information Insurance Providers Payer Name Payer Address Payer Phone Subscriber Number Group Number Insured Name Patient Relationship to Insured Coverage Start Date Coverage End Date [facility] [address] [address] [place], [place] [phone] [id number] Rocio Kovacs Self - patient is the insured Medical (General) History Medical History History ICD Code Anemia Anxiety Blood Transfusion Depression GERD/Acid Reflux Gallbladder Disease Kidney Stones Migraine Headaches Surgical History Surgery Date(Month/Year) C section x2 Liver surgery Cholecystectomy - 2008 Dx Lap - fulguration of endometriosis 20 20 Rhinoplasty Tonsillectomy - child Bilateral Tubal Ligation Hospitalization History Reason Date(Month/Year) labor and delivery
[2025-04-25 15:02] LABS: COC Drug Screen Collection Only
== END ==
LOC: LAB 14:54

== ENCOUNTER 2025-04-27 17:39 | Emergency (ER) | payer OTHER, SELFPAY ==
--- OUTSIDE RECORDS SUMMARY | 2025-01-02 11:15 | XMS_ITS ---
Author Organization [facility] Address [address] [facility] [address] [place] [address] Care Team Providers Care Laundry Sorter Name Role Phone Chelita Jackson Unavailable [phone] Seda Sutton Unavailable [phone] REASON FOR VISIT 2 WK INCISION CHECK Social History Sex Assigned At : Social History Observation Description Sex Assigned At Female Encounters Encounter Location Date Provider Diagnosis [facility] [address] [facility] [address] [place] [address] 01/02/2025 Seda Sutton Plan Of Treatment No Information Progress Notes * Maia KOVACSDOB:[birth year] (34 yo F)Acc No.[id number]:01/02/2025 Progress Note Patient: Dylan kathrynshirley Maia Zhao Provider: Tomeka Sutton MD :1990 A ge:34 Y S ex:Female Date:01/02/2025 Address:[address] [place] [address] [id number] Subjective: * Chief Complaints: * 2 WK INCISION CHECK * Electronic signature of Maureen Sutton MD on 04/27/2025 at 06:00 PM EDT Sign off status: Pending Visit Status: C ANC-PD (Cancelled Patient Delivered) * Provider: Tomeka Sutton MD Date: 0 01/02/2025 Generated for Printi ng/Faxing/eTransmitting on: 0 04/27/2025 06:00 PM EDT
--- OUTSIDE RECORDS SUMMARY | 2025-01-30 11:15 | XMS_ITS ---
Author Organization [facility] Address [address] [facility] [address] [place] [address] Care Team Providers Care Type Soldering Machine Tender Name Role Phone Chelita Jackson Unavailable [phone] Rafael Suttonah Unavailable [phone] REASON FOR VISIT 6 WK PP Social History Sex Assigned At : Social History Observation Description Sex Assigned At Female Encounters Encounter Location Date Provider Diagnosis [facility] [address] [facility] [address] [place] [address] 01/30/2025 Seda Sutton Plan Of Treatment No Information Progress Notes * Maia KOVACSDOB:[birth year] (34 yo F)Acc No.[id number]:01/30/2025 Progress Note Patient: Dylan kathrynshirley Maia Zhao Provider: Tomeka Sutton MD :1990 A ge:34 Y S ex:Female Date:01/30/2025 Address:[address] [place] [address] [facility] Subjective: * Chief Complaints: * 6 WK PP * Electronic signature of Maureen Sutton MD on 04/27/2025 at 06:01 PM EDT Sign off status: Pending Visit Status: C ANC-PD (Cancelled Patient Delivered) * Provider: Tomeka Sutton MD Date: 0 01/30/2025 Generated for Printi ng/Faxing/eTransmitting on: 0 04/27/2025 06:01 PM EDT
[2025-04-27 17:58] VITALS: BP 112/90; PULSE 72; O2SAT 98
[2025-04-27 18:00] VITALS: BP 123/87; PULSE 70; O2SAT 98
--- OUTSIDE RECORDS SUMMARY | 2025-04-27 18:00 | XMS_ITS | Encounter Summary ---
Author Organization [place] [address] Care Team Providers Care Gauge And Instrument Inspector Name Role Phone Radha Ordaz LPN Unavailable Unav ailable Encounter Details Date Type Department Care Team (Late st Contact Info) Description 11/02/2018 Lab Requisition [facility] [place] [address] Wendy Emerson MD [address] [place] [id number] Other specified abnormal findings of blood [...] HORMONE -REF LAB (11/02/2018 8:40 AM EST) [facility] ACTH 21 6 - 58 pg/mL 11/04/2018 2:20 PM EST [employer] Comment: INTERPRETIVE INFORMATION: Adrenocorticotropic Hormone Some types of synthetic ACTH are not detected by this assay. Access complete set of age- and/or gender-specific reference intervals for this test in the [facility] ([facility]). Performed by [facility], [address] [place] [id number] [email or web address], Robert Restrepo MD, Lab. Director Blood VENOUS BLOOD / Unknown 11/02/2018 8:40 AM EST 11/02/2018 2:17 PM EST us Wendy Emerson MD CHEMISTRY ORDERABLES Fin al Result [employer] [address] [place] [address] documented in this encounter Visit Diagnoses Diagnosis Other specified abnormal findings of blood chemistry documented in this encounter Additional Health Concerns Assessment Noted Time PHQ-9 Depression Total Score: 2 10/07/19 19 4:43 PM EST PHQ-2 Depression Total Score: 2 10/07/19 19 4:43 PM EST documented as of this encounter Care Teams Gauge And Instrument Inspector Relationship Specialty Start Date End Date Radha Ordaz LPN Admissions Clerk Licensed Practical Nurse 03/15/20 04/02/20 documented as of this encounter
--- OUTSIDE RECORDS SUMMARY | 2025-04-27 18:00 | XMS_ITS | CCD ---
Author Name Interface, O5Recmlby lity Address [address] [place], [place] [id number] Organization [facility] Address [address] [place], [place] [id number] Care Team Providers Care Programmer Numerical Control Name Role Phone Sukhjinder KAISER, Jens Purvis Unavailable Unavailable Reason for Visit Medications Problems Social History
--- OUTSIDE RECORDS SUMMARY | 2025-04-27 18:00 | XMS_ITS | Referral Summary ---
Author Organization [employer] ([place], [place], [place], [place]) Address [address] [place] [address] Care Team Providers Care Manager Engagement Name Role Phone Unavailable Primary Care Provider [...] Date Tommie rded Speak language other than Ugandan at home Not on file 10/15/2023 Want [...] Advance Directives For more information, please contact: [phone] * Full Code (Latest Code Status on File) Date Activated Date Inactivated Comments 11/11/2022 7:28 AM 11/11/2022 12:16 PM
--- OUTSIDE RECORDS SUMMARY | 2025-04-27 18:00 | XMS_ITS | Encounter Summary ---
Author Organization [facility] Address [address] [place] [address] Care Team Providers Care Train Operator Name Role Phone Michaela Sousa APRN Primary Care Provider + [phone] Reason for Visit * Reason Onset Date Comments Advice Only 03/08/2025 Encounter Details Date Type Department Care Team (Late st Contact Info) Description 03/08/2025 Telephone [facility] [address] [address] Aminata Nassar MD [address] [address] Advice Only Social History Tobacco Use Types Packs/Day Years Used Date Smoking Tobacco: Never Passive Smoke Exposure: Never Smokeless Tobacco: Never Alcohol Use Standard Drinks/Week Comments No 0 (1 standard drink = 0.6 oz pur e alcohol) [facility] Utilities Answer Date Recorded In the past 12 months has [employer], [employer], oil, or water [employer] threatened to shut off services in your [...] Date Recorded Retired Total Score 0 05/07/2021 [facility] [place] [facility] - Occupational [...] things needed for daily living? No 12/10/2024 [place] Depression Scale Answer Date Recorded [place] Depression Scale Total 2 12/22/2024 The thought [...] GED or equivalent No 12/10/2024 Preferred Language [place] Islander 12/10/2024 PHQ-2 Answer Date Recorded Patient Health [...] to patient: Self Best call back number: [phone] Patient is needing: PT HAD A CT OF LIVER COMPLETED ON 02/13 AND AGAIN ON 02/23 SHOWING ENLARGED, PLEASE CALL AND ADVISE. documented in this encounter Plan of Treatment Upcoming Encounters Date Type Department Care Team (Late st Contact Info) Description 05/31/2025 3:00 PM EDT Office Visit [facility] [address] [place] [address] Leah Castillo, FERNANDO [address] [address] 06/28/2025 3:45 PM EDT Office Visit [facility] [address] [facility] [address] [place] [address] Aminata Nassar MD [address] [address] documented as of this encounter Visit Diagnoses Not on filedocumented in this encounter Additional Health Concerns Infection Onset Date Last Indicated Resolved Time COVID (History) Comment:Per regional inspector materials and processes for Oswaldo PrLizeth, 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 The last day before reporting a new confirmed COVID-19 would be 12/08/20. -Alida Banda RN 09/09/2020 12/25/2020 documented as of this encounter Care Teams Train Operator Relationship Specialty Start Date End Date Michaela Sousa APRN [address] [place] [address] PCP - General Internal Medicine 09/04/24 documented as of this encounter
--- OUTSIDE RECORDS SUMMARY | 2025-04-27 18:00 | XMS_ITS | Clinical Summary ---
Author Organization [facility] Address [address] [place] [address] Care Team Providers Care Authorization Coordinator Name Role Phone SousaMichaela sheehan Juani KING Primary Care Provider [phone] Allergies Active Allergy Reactions Criticality Noted Date [...] or split. 30 tablet 3 Active B Ltcogvc-Pfmbpl-MM (B Complete) tablet Active pantoprazole (ProtoNix) 20 [...] 7 Other 8 Other 9 Sister Teresa osuna Social History Tobacco Use Types Packs/Day Years [...] declined 02/25/2023 How often do you attend restorationist or mandaen serv ices? Patient declined 02/25/2023 Do you belong to any clubs o r organizations such as restorationist groups, unions, fraternal or athletic groups, or [...] Recorded Patient Health Questionnaire-2 Score 4 03/01/2023 [facility] - Occupational [...] place to sleep or slept in a halfway (including now)? Patient refused 02/25/2023 PHQ-9 Answer [...] drink first t donovan in the morning (EYE-MARKET RISK MANAGER) to steady your nerves or to get [...] 19+ 3-dose series) 2011 [facility]-Pap Smear 2013 BPK-MVDCP-30 Vaccine (3 - Pfizer risk series) 06/04/2021 05/07/2021, 04/16/2021 [facility]-Cervical Cancer Screening 2022 [facility]-HPV/Cotest 2022 [facility]-Depression Screening 03/01/2024 03/01/2023, 06/01/2023 [facility]-Influenza Vaccine (#1) 05/28/202507/07, 06/07/2018, 07/02/2017, Additional [...] 5:52 AM EDT 12/18/2017 6:28 AM EDT Historical Provider LAB BLOOD ORDERABLES Kate l Result SUNQUEST from Last 3 Months or Most Recently Relevant to Health Maintenance Insurance ANDRES Care Teams Authorization Coordinator Relationship Specialty Start Date End Date Michaela Sousa APRN [address] [place] [address] PCP - General 07/24/21
--- OUTSIDE RECORDS SUMMARY | 2025-04-27 18:01 | XMS_ITS | Clinical Summary ---
Author Organization [employer] ([place], [place], [place], [place]) Address [address] [place] [address] Care Team Providers Care Claims Account Specialist Name Role Phone Unavailable Primary Care Provider [...] Date Tommie rded Speak language other than Senegalese at home Not on file 10/15/2023 Want [...] Advance Directives For more information, please contact: [phone] * Full Code (Latest Code Status on File) Date Activated Date Inactivated Comments 11/11/2022 7:28 AM 11/11/2022 12:16 PM
--- OUTSIDE RECORDS SUMMARY | 2025-04-27 18:01 | XMS_ITS | Encounter Summary ---
Author Organization [employer] ([place], [place], [place], [place]) Address [address] [place] [address] Care Team Providers Care Field Irrigation Worker Name Role Phone Michaela Sousa APRN Primary Care Provider [phone] Encounter Details Date Type Department Care Team (Late st Contact Info) Description 03/11/2022 Transcribed Document [facility] Family Medicine [address] [place] [address] ProviderTeena MD [address] [place] [address] Social History Tobacco Use Types Packs/Day Years [...] Date Tommie rded Speak language other than Zambian at home Not on file 10/15/2023 Want [...] JOVON Austin./Sex: 1990 Female Med Rec #: [id number] Physician: Pavel ADAM MD-OBG Financial #: [id number] Pt. Type: O Room/Bed: [facility] Admit/Disch: 03/11/22 09:42:00 - Institution: [facility] Main OR PACU Case Times Entry 1 In PACU I 03/11/22 15:00:00 Ready for PACU 03/11/22 16:12:00 Discharge Discharge from PACU 03/11/22 16:12:00 I Last Modified By: Mia Min RN 03/11/22 16:23:07 [facility] Main OR PACU Case Times Audit 03/11/22 16:23:07 Fund Director: CARRIHOWIE Modifier: CARRIEC <+> 1 Ready for PACU Discharge <+> 1 Discharge from PACU I Finalized By: Mia Min RN Document Signatures Signed By: Mia Min RN 03/11/22 16:23 Electronically signed by Chaparrita [facility] Conversion Program Admin Cerner at 01/09/2023 10:43 AM CDT documented in this encounter Plan of Treatment Not on file documented as of this encounter Visit Diagnoses Not on filedocumented in this encounter Care Teams Field Irrigation Worker Relationship Specialty Start Date End Date Michaela Sousa APRN [address] [place] [address] PCP - General Nurse Practitioner 11/09/22 11/09/22 documented as of this encounter
--- OUTSIDE RECORDS SUMMARY | 2025-04-27 18:01 | XMS_ITS | Encounter Summary ---
Author Organization [employer] ([place], [place], [place], [place]) Address [address] [place] [address] Care Team Providers Care Gamma Facilities Operator Name Role Phone Michaela Sousa APRN Primary Care Provider Encounter Details Date Type Department Care Team (Late st Contact Info) Description 03/11/2022 Transcribed Document [facility] Family Medicine [address] [place] [address] ProviderTeena MD [address] [place] [address] Social History Tobacco Use Types Packs/Day Years [...] Date Tommie rded Speak language other than Cuban at home Not on file 10/15/2023 Want [...] JOVON Austin./Sex: 1990 Female Med Rec #: [id number] Physician: Pavel ADAM MD-OBG Financial #: [id number] Pt. Type: O Room/Bed: Admit/Disch: 03/11/22 09:42:00 - Institution: [facility] Main OR PostOp Case Times Entry 1 In PACU II 03/11/22 16:15:00 Ready for PACU II 03/11/22 16:37:00 Discharge Discharge from PACU 03/11/22 16:37:00 II Last Modified By: Amara Leon RN 03/11/22 16:56:28 Finalized By: Amara Leon RN Document Signatures Signed By: Amara Leon RN 03/11/22 16:56 Electronically signed by Chaparrita [facility] Conversion Teaching Pastor Cerner at 01/09/2023 10:49 AM CDT documented in this encounter Plan of Treatment Not on file documented as of this encounter Visit Diagnoses Not on filedocumented in this encounter Care Teams Gamma Facilities Operator Relationship Specialty Start Date End Date Michaela Sousa APRN [address] [place] [address] PCP - General Nurse Practitioner 11/09/22 11/09/22 documented as of this encounter
--- OUTSIDE RECORDS SUMMARY | 2025-04-27 18:01 | XMS_ITS | Encounter Summary ---
Author Organization [employer] ([place], [place], [place], [place]) Address [address] [place] [address] Care Team Providers Care Fur Liner Name Role Phone Michaela Sousa APRN Primary Care Provider Encounter Details Date Type Department Care Team (Late st Contact Info) Description 03/11/2022 Transcribed Document [facility] Family Medicine [address] [place] [address] ProviderTeena MD [address] [place] [address] Social History Tobacco Use Types Packs/Day Years [...] Date Tommie rded Speak language other than Belizean at home Not on file 10/15/2023 Want [...] JOVON [place]./Sex: 1990 Female Med Rec #: [id number] Physician: Pavel ADAM MD-OBG Financial #: [id number] Pt. Type: O Room/Bed: Admit/Disch: 03/11/22 09:42:00 - Institution: [facility] IntraOp Case Attendance Entry 1 Entry 2 Entry 3 Case Attendee Pavel ADAM Holliday, Stewart R, B[address] MD-OBG Role Performed Surgeon/Proceduralist, Chemical Plant Operator Supervisor, First Scrub, First First Time In 03/11/22 [...] Attendee Jens Pedroza SONIA, PA-C GUNNING, CORTNEY, PREDATORY ANIMAL EXTERMINATOR, CONSUMER LENDING MANAGER-ANS Role Performed Scrub, Second Physician home care assistant CONSUMER LENDING MANAGER/Nurse Zone Supervisor Firearms Time In 03/11/22 14:02:00 03/11/22 14:02:00 03/11/22 [...] [facility] IntraOp Case Attendance Audit 03/11/22 14:59:45 Csr: HOLLIDSR Modifier: HOLLIDSR 1 <+> Time Out [...] Lysis Adhesions, Ovarian Cystectomy Laparoscopic 03/11/22 14:38:59 Csr: HOLLIDSR Modifier: HOLLIDSR 1 <*> Procedure Laparoscopy [...] Robotic, Vaginal Suspension, Lysis Adhesions 03/11/22 14:29:46 Csr: TORREYIDSR Modifier: HOLLIDSR 1 <+> Time In [...] Laparoscopy Operative Robotic, Vaginal Suspension 03/11/22 13:46:27 Csr: TORREYIDSR Modifier: HOLLIDSR 1 <*> Procedure Laparoscopy [...] [facility] IntraOp Case Times Audit 03/11/22 14:59:44 Csr: MICHAELR Modifier: HOLLIDSR <+> 1 Out Room Time <+> 1 Stop Time <+> 1 Stop Time 03/11/22 14:19:12 Csr: MICHAELR Modifier: HOLLIDSR <+> 1 Start Time [...] [facility] IntraOp Counts Verification Audit 03/11/22 14:39:01 Csr: PAULA Modifier: HOLLIDSR 1 <*> Procedure Laparoscopy Operative Robotic, Vaginal Suspension, Cystoscopy Adult, Lysis Adhesions 03/11/22 14:29:48 Csr: PAULA Modifier: HOLLIDSR 1 <*> Procedure Laparoscopy [...] [facility] IntraOp Counts Final Audit 03/11/22 14:39:02 Csr: PAULA Modifier: HOLLIDSR 1 <*> Procedure Laparoscopy [...] Sanchez Cadena, Accompanied by RN, TITO RODRIGUES, PREDATORY ANIMAL EXTERMINATOR, CONSUMER LENDING MANAGER-ANS Last Modified By: Sanchez Cadena RN 03/11/22 [...] Yes Assessment Complete Fire Risk Sanchez Cadena sales closer Verified By Fire Risk 03/11/22 13:48:00 Assessment Verified Date/Time Fire Risk High Risk Protocol Yes Implemented Standard Fire Yes Safety Precautions Followed Last Modified By: Sanchez Cadena RN 03/11/22 13:48:37 [facility] IntraOp Fire Risk Assessment Audit 03/11/22 13:48:37 Csr: PAULA Modifier: PAULA <+> 1 Fire Risk Assessment Verified Date/Time [facility] IntraOp General Case Auger Machine Offbearer 1 Case Information OR OR 04 [facility] [...] 1 Medication/Irrigant Marcaine 0.5% 30ml vial - [id number] Route of LOCAL Administration Dose Dose 10 [...] [facility] IntraOp Patient Positioning Audit 03/11/22 14:39:01 Csr: PAULA Modifier: HOLLIDSR 1 <*> Procedure Laparoscopy Operative Robotic, Lysis Adhesions 03/11/22 14:29:48 Csr: PAULA Modifier: TORREYIDSR 1 <*> Procedure Laparoscopy [...] Intra Op Sign Out Audit 03/11/22 14:59:49 Csr: PAULA Modifier: MICHAELR <+> 1 RN Sign [...] [facility] IntraOp Skin Prep Audit 03/11/22 14:39:02 Csr: PAULA Modifier: TORREYIDSR 1 <*> Procedure Laparoscopy Operative Robotic, Lysis Adhesions 03/11/22 14:29:49 Csr: PAULA Modifier: TORREYIDSR 1 <*> Procedure Laparoscopy [...] [facility] IntraOp Surgical Procedures Audit 03/11/22 14:59:47 Csr: PAULA Modifier: HOLLIDSR <+> 1 Stop <+> 2 Stop <+> 3 Stop <+> 4 Stop <+> 5 Stop 03/11/22 14:54:15 Csr: PAULA Modifier: TORREYIDSR 1 <*> Procedure Laparoscopy Operative Robotic 1 <+> Wound Class 2 <*> Procedure Vaginal Suspension 2 <+> Wound Class 03/11/22 14:54:01 Csr: MICHAELR Modifier: HOLLIDSR <+> 5 Start 03/11/22 14:38:53 Csr: MICHAELR Modifier: HOLLIDSR <+> 4 Start <+> 5 Procedure <+> 5 Primary Procedure <+> 5 Primary Surgeon <+> 5 Specialty <+> 5 Wound Class <+> 5 Anesthesia Type 03/11/22 14:29:43 Csr: MICHAELR Modifier: HOLLIDSR <+> 1 Start <+> 2 Start <+> 3 Start <+> 4 Procedure <+> 4 Primary Procedure <+> 4 Primary Surgeon <+> 4 Specialty <+> 4 Wound Class <+> 4 Anesthesia Type 03/11/22 13:46:21 Csr: MICHAELR Modifier: HOLLIDSR <+> 2 Primary Procedure [...] [facility] IntraOp Time Out Audit 03/11/22 14:39:02 Csr: PAULA Modifier: PAULA 1 <*> Procedure to be Performed Laparoscopy Operative Robotic, Vaginal Suspension, Cystoscopy Adult, Lysis Adhesions 03/11/22 14:29:49 Csr: PAULA Modifier: MICHAELR 1 <*> Procedure to be Performed Laparoscopy Operative Robotic, Vaginal Suspension, Cystoscopy Adult Case Comments <None> Finalized By: Sanchez Cadena, RN Document Signatures Signed By: Sanchez Cadena RN 03/11/22 14:59 Electronically signed by [facility] Conversion Warehouse Processor Cerner at 01/09/2023 10:50 AM CDT documented in this encounter Plan of Treatment Not on file documented as of this encounter Visit Diagnoses Not on filedocumented in this encounter Care Teams Fur Liner Relationship Specialty Start Date End Date Micheala Sousa APRN [address] [place] [address] PCP - General Nurse Practitioner 11/09/22 11/09/22 documented as of this encounter
--- OUTSIDE RECORDS SUMMARY | 2025-04-27 18:01 | XMS_ITS | Clinical Summary ---
Author Organization [employer] [facility] [facility] Address [facility] [address] [place], [place] [address] Phone Care Team Providers Care Camp Nurse Name Role Phone Unavailable Primary Care Provider [...] a complete record from that organization. b gmdymku-W-tdwok acid (NEPHROCAP) 1 mg Oral Capsule Take [...] (07/05/2020): Added automatically from request for surgery [id number] Pelvic pain 07/05/2020 Overview (07/05/2020): Added automatically from request for surgery [id number] Scoliosis of thoracic spine 03/09/2019 S/P endometrial [...] Story LPN Medical Devices Implanted Type Area News Copy Editor Device Identifier Shelf Expiration Date Model / Serial / Lot Screw For [employer] Insurance [employer] * Guarantor: Maia Kovacs Account Type Relation to Patient Date of Phone Billing Address [place] Personal Family Self Advance Directives For more information, please contact: [phone] * Full Code (Latest Code Status on [...]
--- OUTSIDE RECORDS SUMMARY | 2025-04-27 18:01 | XMS_ITS | Encounter Summary ---
Author Organization [employer] ([place], [place], [place], [place]) Address [address] [place] [address] Care Team Providers Care Helicopter Technician Name Role Phone Michaela Sousa APRN Primary Care Provider Encounter Details Date Type Department Care Team (Late st Contact Info) Description 03/11/2022 Transcribed Document [facility] [place] Family Medicine [address] [place] [address] ProviderTeena MD [address] [place] [address] Social History Tobacco Use Types Packs/Day Years [...] Date Tommie rded Speak language other than Palauan at home Not on file 10/15/2023 Want [...] irrigated, suctioned, and reinspected. DICTATION ENDS HERE. /[id number] PepeMD NICANOR Hassan/ARCADIO / NICANOR / MODL /[id number] Electronically signed by Chaparrita, [facility] Conversion Editor Sound Cerner at 01/09/2023 10:49 AM CDT documented in this encounter Plan of Treatment Not on file documented as of this encounter Visit Diagnoses Not on filedocumented in this encounter Care Teams Helicopter Technician Relationship Specialty Start Date End Date Michaela Sousa, RECYCLE WORKER [address] [phone] PCP - General Nurse Practitioner 11/09/22 11/09/22 documented as of this encounter
--- OUTSIDE RECORDS SUMMARY | 2025-04-27 18:01 | XMS_ITS | CCD ---
Author Name Interface, [id number] lity Address [address] [place], [place] [id number] Organization [facility] Address [address] [place], [place] [id number] Care Team Providers Care Electrical Linesworker Name Role Phone Sukhjinder KAISER, Jens Purvis Unavailable Unavailable Reason for Visit Medications Problems Social History
--- OUTSIDE RECORDS SUMMARY | 2025-04-27 18:01 | XMS_ITS | Encounter Summary ---
Author Organization [place] [address] Care Team Providers Care Size Stamper Name Role Phone Radha Ordza LPN Unavailable Unav ailable Encounter Details Date Type Department Care Team (Late st Contact Info) Description 11/02/2018 Lab Requisition [facility] [place] [address] Wendy Emerson MD [address] [place] [id number] Other specified abnormal findings of blood [...] 19.47 mcg/dL 9 5:29 PM EST PREFERRED [facility] Blood VENOUS BLOOD / Unknown 11/02/2018 9:45 AM EST 11/02/2018 4:09 PM EST Narrative PREFERRED [employer] - 11/02/2018 5:29 PM EST Normal Peak : > 20 ug/dl Wendy Emerson MD CHEMISTRY ORDERABLES Fin al Result Performing Organization Address [facility] de Phone Number [facility] [address] [place] [address] , [place] [address] * CORTISOL 30 MINUTES (11/02/2018 9:15 AM EST) Cortisol 30 Min 17.48 mcg/dL 9 5:35 PM EST [facility] Blood VENOUS BLOOD / Unknown 11/02/2018 9:15 AM EST 11/02/2018 4:09 PM EST Narrative [email or web address] - 11/02/2018 5:35 PM EST Normal Peak : > 20 ug/dl Wendy Emerson MD CHEMISTRY ORDERABLES Fin al Result Performing Organization Address [facility] Phone Number [facility] [address] [facility] , [place] [address] * CORTISOL BASELINE (11/02/2018 8:40 AM EST) Cortisol Baseline 10.37 mcg/dL 11/02/2018 5:35 PM EST [facility] Blood VENOUS BLOOD / Unknown 11/02/2018 8:40 AM EST 11/02/2018 4:09 PM EST Narrative [facility] - 11/02/2018 5:35 PM EST Ingestion of jose doses of biotin (>5 mg/day) taken within 8 hours of drawing blood sample can interfere with this immunoassay test. Wendy Emerson MD CHEMISTRY ORDERABLES Fin al Result Performing Organization Address [facility] de Phone Number [facility] [address] [facility] , [place] [address] documented in this encounter Visit Diagnoses Diagnosis Other specified abnormal findings of blood chemistry documented in this encounter Additional Health Concerns Assessment Noted Time PHQ-9 Depression Total Score: 2 10/07/19 19 4:43 PM EST PHQ-2 Depression Total Score: 2 10/07/19 19 4:43 PM EST documented as of this encounter Care Teams Size Stamper Relationship Specialty Start Date End Date Radha Ordaz LPN P[employer] Packer Licensed Practical Nurse 03/15/20 04/02/20 documented as of this encounter
--- OUTSIDE RECORDS SUMMARY | 2025-04-27 18:01 | XMS_ITS | Encounter Summary ---
Author Organization [employer] ([place], [place], [place], [place]) Address [address] [place] [address] Care Team Providers Care Division Director Name Role Phone Michaela Sousa APRN Primary Care Provider Encounter Details Date Type Department Care Team (Late st Contact Info) Description 03/10/2022 Transcribed Document [facility] [place] [place] Family Medicine [address] [place] [address] ProviderTeena MD [address] [place] [address] Social History Tobacco Use Types Packs/Day Years [...] Date Tommie rded Speak language other than Swedish at home Not on file 10/15/2023 Want [...] 1 Health Plan: ANTHEM HMOPPO Policy Number: [id number] Authorization Number: [id number] Insurance Primary Name : ANDRES ROBERSONOPPO [id number] Authorization Status-Primary : Opo status approv Authorized Service Begin Date-Primary : 03/11/2022 EDT Observation Authorization Nbr-Primary : [id number] Authorization Comments-Primary : ANTHEM HMOPPO approved per letter for outpt Historical Authorization Comments-Primary : No Authorization Comments Found MELISSA MAURO RN-Utilization Review - 03/10/2022 11:32 EDT documented in this encounter Plan of Treatment Not on file documented as of this encounter Visit Diagnoses Not on filedocumented in this encounter Care Teams Division Director Relationship Specialty Start Date End Date Michaela Sousa, SWITCH COUPLER [address] [place] [address] PCP - General Nurse Practitioner 11/09/22 11/09/22 documented as of this encounter
--- OUTSIDE RECORDS SUMMARY | 2025-04-27 18:01 | XMS_ITS | Encounter Summary ---
Author Organization [employer] ([place], [place], [place], [place]) Address [address] [place] [address] Care Team Providers Care Fitter Helper Name Role Phone Michaela Sousa APRN Primary Care Provider Encounter Details Date Type Department Care Team (Late st Contact Info) Description 03/11/2022 Transcribed Document [facility] [place] Family Medicine [address] [place] [address] ProviderTeena MD [address] [place] [address] Social History Tobacco Use Types Packs/Day Years [...] Date Tommie rded Speak language other than Nicaraguan at home Not on file 10/15/2023 Want [...] Source : Measured Height Entry Format : Christian Height, Feet : 5 ft(Converted to: 152 cm, 60 Inch) Height, Inches : 9 Inch(Converted to: 0 ft 9 Inch, 22.86 cm) Clinical Height : 175.26 cm Weight Source : Standing scale Weight Entry Format : Christian Clinical Dosing Weight : 76.82 kg Weight, Pounds : 169 lb Body Surface Area (BSA) : 1.92 m2 Body Mass Index : 25 kg/m2 (HI) [place] Body Weight : 66 kg Enedelia Andre [...] Enedelia Andre RN - 03/11/2022 11:31 EDT [place] Suicide Severity Rating Scale (C-SSRS) CSSRS Past [...] Decision Maker : x Primary Language : Nicaraguan Communication Barrier : None Arabic Professor Needed : No Enedelia Andre RN - [...] Enedelia Andre RN - 03/11/2022 11:31 EDT Electronically signed by Sree Cheatham Conversion Director Of Operations For [employer] Cerner at 01/09/2023 10:47 AM CDT documented in this encounter Plan of Treatment Not on file documented as of this encounter Visit Diagnoses Not on filedocumented in this encounter Care Teams Fitter Helper Relationship Specialty Start Date End Date Michaela Sousa APRN [address] [address] PCP - General Nurse Practitioner 11/09/22 11/09/22 documented as of this encounter
--- OUTSIDE RECORDS SUMMARY | 2025-04-27 18:01 | XMS_ITS | Encounter Summary ---
Author Organization [employer] ([place], [place], [place], [place]) Address [address] [place] [address] Care Team Providers Care Computer Game Designer Name Role Phone Lars Michaela FERNANDO Primary Care Provider Encounter Details Date Type Department Care Team (Late st Contact Info) Description 03/11/2022 Transcribed Document [facility] Radiology [address] [place] [address] Provider, Sree Dickinson MD Social [...] Date Tommie rded Speak language other than Turkmen at home Not on file 10/15/2023 Want [...] Miscellaneous Notes * Cerner Conversion Note - [facility] Historical Provider, - 03/11/2022 5:29 PM EDT [address] [id number] MAIA KOVACS :1990 Visit Time:03/11/2022 What to do next Your Diagnosis Other specified dyspareunia, Other specified dyspareunia Instructions From Your Care Team Vaginal rest until follow up appointment. You have prescriptions to picker tender helper at your local pharmacy. Follow-Up Appointments Follow Up with Pavel ADAM MD-OBG When Comments Keep previously scheduled appointment Where: [address] [facility] [address] [place] [phone] Medications What How Much When Instructions Next [...] balanced diet. ??? Avoid caffeine. ??? Take qykn-noz-nisjawe and prescription medicines only as told by your health care provider. ??? Keep all follow-up visits as told by your health care provider. This is important. Where to find more information ??? [employer]: [email or web address].acog.org/ ??? [...] provider. Document Revised: 10/30/2020 Document Reviewed: 10/30/2020 [email or web address] Patient Education ?? 2020 [employer] Diagnostic Laparoscopy, Care After This sheet [...] these instructions at home: Medicines ??? Take dhya-skn-zomkala and prescription medicines only as told by [...] and water are not available, use hand sand operator. ? Change your dressing as told by [...] keep your urine pale yellow. ? Take qhlh-jmv-pvihvhs or prescription medicines. ? Eat foods that [...] provider. Document Revised: 08/26/2018 Document Reviewed: 03/09/2018 [employer] Patient Education ?? 2020 [employer]. General Anesthesia, Adult, Care After This sheet [...] activities are safe for you. ??? Take qtai-tip-vgxxagm and prescription medicines only as told by [...] Reviewed: 12/26/2020 Elsevier Patient Education ?? 2020 [employer] Emergency Awareness and Preventative Care STROKE [...] Assistance with quitting is available by contacting 7-465-FTAVNOW. This is a free resource providing counseling, [...] range between ( 1.0 and 7.0 ) Stevens #: 0.58 K/uL -- Normal range between ( 0.24 and 0.82 ) Eos #: 0.25 K/uL -- Normal range between ( 0.04 and 0.54 ) Stevens %: 10.2 % -- Normal range between [...] was given the opportunity to ask questions. Patient/Body Coverer Name: Patient/Body Coverer Signature: Relationship to Patient: Clinician/Hospital Body Coverer Signature: Date: Electronically signed by Antonio Cheatham Conversion Drop Hammer Pile Driver Operator Kristopherner at 02/17/2023 10:58 AM CDT documented in this encounter Plan of Treatment Not on file documented as of this encounter Visit Diagnoses Not on filedocumented in this encounter Care Teams Computer Game Designer Relationship Specialty Start Date End Date Michaela Sousa, TANK FILLER [address] [address] PCP - General Nurse Practitioner 11/09/22 11/09/22 documented as of this encounter
--- OUTSIDE RECORDS SUMMARY | 2025-04-27 18:01 | XMS_ITS | Clinical Summary ---
Author Organization [facility] Address [address] [facility], [address] [place] [address] Care Team Providers Care Hospice/Home Health Aide Name Role Phone Carmen Juan APRN - ULISES Primary Care Provider Allergies Active Allergy Reactions [...] on file Medical Devices Implanted Type Area Rotary Lithographic Press Operator Device Identifier Shelf Expiration Date Model / Serial / Lot Jaw Screw Screw/Pl ate/Nail /Alban Left: Mandible Description:MRI compatible Insurance [facility] [place] [id number] Advance Directives * Full Code (Latest Code Status on File) Date Activated Date Inactivated Comments 12/10/2018 3:14 AM 12/10/2018 9:58 PM * Full Code Date Activated Date Inactivated Comments 10/08/2018 12:42 AM 10/09/2018 3:48 PM Care Teams Hospice/Home Health Aide Relationship Specialty Start Date End Date Carmen Juan APRN - NP [facility] [address] [facility] [address] [address] PCP - General 07/22/20
--- OUTSIDE RECORDS SUMMARY | 2025-04-27 18:01 | XMS_ITS | Patient Health Record ---
Author Organization [facility] Address [address] [place] [address] Care Team Providers Care General Manager Farm Name Role Phone Chelita Jackson Unavailable [phone] Migration, Provider Unavailable Unavailable Herman, Shivam Unavailable [phone] Rakesh Sonison Unavailable [phone] Anthony Luna Unavailable [phone] Lani Gould Unavailable [phone] Leah Acosta Unavailable [phone] Georgie Perez Unavailable [phone] Allergies Allergen (clinical drug ingredient) Drug/Non Drug [...] Value Reference Range Flag Notes *US OB Detailed Anatomy Reviewed date:08/23/2024 10:39:14 AM Interpretation: Performing Lab: Notes/Report: [facility] Transabdominal Obstetric Study Report Name: ROCIO KOVACS Accession/Encounter No:[id number] : 1990 Age: 34 Gender: F Study [...] 1 of 1 Imaging Center - , [facility] * OB Follow-Up Reviewed date:09/25/2024 07:57:44 AM Interpretation: Performing Lab: Notes/Report: [facility] Transabdominal Obstetric Study Report Name: ROCIO KOVACS Accession/Encounter No:[id number] : 1990 Age: 34 Gender: F Study [...] 1 of 1 Imaging Center - , [facility] [address] Group B Strep by PCR w/ PCN allergy Reviewed date:11/27/2024 09:52:59 PM Interpretation:Negative Performing Lab: Notes/Report: [employer] Testing performed at: [facility], [address] [place] [address], [place], [address], , Vehicle Operator: Jean Kebede, PhD Strep Gp B GREYSON+Rflx Negative Negative N vaginal and rectal swab specimen to maximize sensitivity of intrapartum prophylaxis of GBS colonization. streptococcal (GBS) disease specify co-collection of a Reflex susceptibility testing should be performed prior to [place] [employer] of Obstetricians and Gynecologists (ACOG) guidelines for prevention of group B testing is warranted if resistance to clindamycin is noted. Centers for Disease Control and Prevention (CDC) and anaphylaxis. Treatment with vancomycin without additional use of clindamycin only on GBS isolates from penicillin- of detection compared with sampling the vagina alone. Penicillin G, ampicillin, or cefazolin are indicated for lower vagina and rectum substantially increases the yield GBS detection. Per the CDC and ACOG, swabbing both the allergic women who are considered a high risk for CBC (NO DIFF) Reviewed date:07/26/2024 01:57:15 PM [...] 140-450 10*3/mm3 Lab specimens received at a [facility].?See result details for the performing location information. CBC (NO DIFF) Reviewed date:10/04/2024 07:54:13 AM [...] 140-450 10*3/mm3 Lab specimens received at a [facility].?See result details for the performing location information. GLUCOSE, POST 50 GM GLUCOLA Reviewed date:10/03/2024 03:01:33 PM Interpretation:passed - 82 Performing Lab: Notes/Report: GESTATIONAL GCT 82 65-139 mg/dL Lab spe cimens received at a [facility].?See result details for the performing location information. ANTIBODY SCREEN Reviewed date:10/03/2024 03:20:01 PM Interpretation:negative Performing Lab: Notes/Report: ANTIBODY SCREEN Negative Lab speci mens received at a [facility].?See result details for the performing location information. TREPONEMA PALLIDUM (SYPHILIS ) SCREENING CASCADE Reviewed date:10/04/2024 07:53:59 AM Interpretation:non reactive Performing Lab: Notes/Report: Reactive results will reflex RPR testing. TREPONEMAL AB TOTAL Non-Reactive Non-Reacti Lab specimens received at a [facility].?See result details for the performing location information. TISSUE PATHOLOGY EXAM Reviewed date:12/13/2024 01:05:40 PM Interpretation: Performing Lab: Notes/Report: LAB AP CASE REPORT Surgical Pathology Report Case: [id number] LAB AP CASE REPORT Authorizing Provider : Shivam Sutton MD Collected: 12/10/2024 01:35 PM LAB AP CASE REPORT Ordering Location: [facility] Received: 12/11/2024 06:35 AM LAB AP CASE REPORT LABOR DELIVERY LAB AP CASE REPORT Pathologist: Ignacia Piedra DO LAB AP CASE REPORT Specimen: Fallopian Tubes, Bilateral LAB AP CLINICAL INFORMATION Encounter for sterilization LAB AP FINAL DIAGNOSIS BILATERAL FALLOPIAN TUBES, STERILIZATION: LAB AP FINAL DIAGNOSIS Complete cross-sections of bilateral fallopian tubes identified LAB AP FINAL DIAGNOSIS at [address] [facility] LAB AP GROSS DESCRIPTION 1. Fallopian Tubes, Bilateral. [facility] AP GROSS DESCRIPTION Received in formalin labeled bilateral fallopian tube are 2 intact, undesignated, fimbriated fallopian tubes averaging 9 cm long by 0.8 cm in diameter. Sectioning of each fallopian tube reveals an unremarkable stellate lumen. Hardening Machine Operator Helper sections of each tube to include the bisected fimbria and full-thickness cross-sections are submitted separately in 1 A- 1B. HDM LAB AP MICROSCOPIC DESCRIPTION The slides are reviewed and demonstrate histopathologic features supporting the above rendered diagnosis. Lab specimens received at a [facility].?See result details for the performing location information. [...] /100 WBC Lab specimens received at a [facility].?See result details for the performing location information. * OB Follow-Up Reviewed date:11/01/2024 03:28:29 PM Interpretation: Performing Lab: Notes/Report: [facility] Transabdominal Obstetric Study Report Name: ROCIO KOVACS Accession/Encounter No:[id number] : 1990 Age: 34 Gender: F Study [...] ROCIO KOVACS 2024-11-01 Page 1 of 1 Imaging Center - , [facility] Comprehensive Metabolic Pane l (CMP) Reviewed date:09/10/2024 11:14:29 PM Interpretation:Normal Performing Lab: Notes/Report: Normal Uric Acid, Serum Reviewed date:11/01/2024 02:12:09 PM Interpretation: Performing Lab: Notes/Report: [facility] Reviewed date:11/01/2024 02:11:41 PM Interpretation: Performing Lab: Notes/Report: Comprehensive Metabolic Pane l (CMP) Reviewed date:11/01/2024 03:32:55 PM Interpretation:Normal Performing Lab: Notes/Report: Normal CBC Reviewed date:11/01/2024 02:12:26 PM Interpretation: Performing Lab: Notes/Report: Reason For Referral Reason >Please refer to GI, patient reports history of bleeds and 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 Currently Diagnosis 1 Rectal bleeding (K62 .5) Referral Organization [facility] Referring Provider First Name Leah Referring Provider Last Name Dave Referring Provider Speciality OB - Gynec ology Referral Priority Routine Referral Appointment Date 08/03/2024 Reason skin issues in pregn paul Diagnosis 1 Skin abnormality (L9 8.9) Referral Organization [facility]-NR Referring Provider First Name Georgie Referring [...] weeks gestation o f (Z3A.22) Referral Organization [facility] Referring Provider First Name Shivam [...] Domestic violence: No Do you have any restorationism, m oral, or cultural beliefs or customs that your provider should know about? No Would you object to blood products in the event of an emergency? 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 Problem History of section (105263589) History of delivery (Z98.891) Active confirmed Problem Sterilization requested (situation) (294238439) Request for sterilization (Z30.2) Active confirmed Problem Abnormal uterine bleeding (67813608452976) Abnormal uterine bleeding (N93.9) Active confirmed Problem History of hemorrhage (786669931) History of hemorrhage (Z87.59) Active confirmed Vital Signs Blood pressure diastolic 60 mm Hg 12/27/2024 Height 69 in 12/27/2024 Blood pressure systolic 118 mm Hg 12/27/2024 Weight 149.4 lbs 12/27/2024 BMI 22.06 kg/m2 12/27/2024 Encounters Encounter Location Date Provider Diagnosis [facility] [address] [place] [address] 09/07/2024 Leah Acosta Encounter for supervision of other normal , second trimester Z34.82 [facility] [address] [place] [address] 09/11/2024 Chelita Jackson [facility] [address] [place] [address] 09/11/2024 Chelita Jackson Encounter for other screening follow-up Z36.2 [facility] [address] [place] [address] 10/04/2024 [facility] [address] [place] [address] 11/30/2024 [facility] [address] [place] [address] 12/01/2024 [facility] [address] [place] [address] 12/13/2024 [facility] [address] [place] [address] 12/18/[facility] Encounter for routine follow-up Z39.2 [facility] [address] [place] [address] 01/10/2025 [facility] [address] [place] [address] 11/22/2024 [facility] [address] [place] [address] 12/12/2024 [facility] [address] [place] [address] 12/13/2024 [facility] [address] [place] [address] 12/14/2024 [facility] [address] [place] [address] 12/14/2024 [facility] [address] [place] [address] 12/14/2024 [facility] [address] [place] [address] 12/26/20[facility] Abnormal uterine bleeding N93.9 [facility] [address] [place] [address] 12/26/2024 [facility] [address] [place] [address] 12/28/2024 [facility] [address] [place] [address] 12/31/2024 [facility] [address] [place] [address] 01/15/2025 [facility] [address] [place] [address] 12/27/2024 Shivam Sutton Encounter for routine follow-up Z39.2 and Encounter for screening for maternal depression Z13.32 [facility] [address] [place] [address] 07/24/2024 Leah Acosta Encounter for supervision of other normal , second trimester Z34.82 ; 17 weeks gestation of Z3A.17 ; Bruising T14.8XXA ; Chronic anemia D64.9 ; History of delivery Z98.891 ; Request for sterilization Z30.2 ; History of hemorrhage Z87.59 ; Gene mutation Z15.89 ; Hx of hepatic disease Z87.19 and Excessive vomiting O21.9 [facility] [address] [place] [address] 08/22/2024 Georgie Perez 22 weeks gestation of Z3A.22 and Encounter for supervision of other normal , second trimester Z34.82 [facility] [address] [place] [address] 09/18/2024 Lani Gould 28 weeks gestation of Z3A.28 [facility] [address] [place] [address] 10/03/2024 Valencia Son Encounter for supervision of other normal , third trimester Z34.83 and 28 weeks gestation of Z3A.28 [facility] [address] [place] [address] 10/17/2024 Shivam Sutton 30 weeks gestation of Z3A.30 ; Encounter for supervision of other normal , third trimester Z34.83 and Hyperemesis gravidarum O21.0 [facility] [address] [place] [address] 11/01/2024 Georgie Perez Encounter for supervision of other normal , third trimester Z34.83 and 32 weeks gestation of Z3A.32 [facility] [address] [place] [address] 11/14/2024 Shivam Sutton 34 weeks gestation of Z3A.34 ; Encounter for supervision of other normal , third trimester Z34.83 and labor without delivery O60.00 [facility] [address] [place] [address] 11/23/2024 [facility] Other specified screening Z36.89 [facility] [address] [place] [address] 11/28/2024 Georgie Perez Encounter for supervision of other normal , third trimester Z34.83 and 36 weeks gestation of Z3A.36 [facility] [address] [place] [address] 11/30/2024 [facility] 36 weeks gestation of Z3A.36 ; Encounter for supervision of other normal , third trimester Z34.83 and Uterine contractions O47.9 [facility] [address] [place] [address] 12/05/2024 [facility] 37 weeks gestation of Z3A.37 and Encounter for supervision of other normal , third trimester Z34.83 [facility] [address] [place] [address] 08/22/2024 Leah Acosta Encounter for supervision of other normal , second trimester Z34.82 [facility] [address] [place] [address] 09/18/2024 Lani Gould Encounter for other screening follow-up Z36.2 [facility] [address] [place] [address] 11/01/2024 Georgie Perez Encounter for supervision of other normal , third trimester Z34.83 [facility] [address] [place] [address] 12/10/2024 [facility] [address] [facility] [address] [place] [address] 04/29/2024 Provider Migration Assessments Encounter Date Diagnosis [...] Insured Coverage Start Date Coverage End Date [facility] [address] [address] [place], [place] [phone] Rocio Kovacs Self - patient is the [...]
--- OUTSIDE RECORDS SUMMARY | 2025-04-27 18:01 | XMS_ITS | Clinical Summary ---
Author Organization [facility] Address [address] [place] [address] Care Team Providers Care Associate Creative Director Name Role Phone Nonstaff, Referring Primary Care Provider [phone] Johnnie Shearer MD Unavailable [phone] Allergies Active Allergy Reactions Criticality Noted Date [...] 40 mg by mouth daily. Active Coenzyme B78-Gnibfpg E 100-5 mg-unit Capsule Take 400 mg [...] Payer ID:[id number] ([facility]) Type:PPO Address: [facility] [address] [place] [id number] Care Teams Associate Creative Director Relationship Specialty Start Date End Date Nonstaff, MD [place] [address] [place] [address] PCP - General 02/16/23 Johnnie Shearer MD [address] [place], [place] [phone] Gastroenterology 02/16/23
--- OUTSIDE RECORDS SUMMARY | 2025-04-27 18:01 | XMS_ITS | Encounter Summary ---
Author Organization [employer] ([place], [place], [place], [place]) Address [address] [place] [address] Care Team Providers Care Bucket Pusher Name Role Phone Michaela Sousa APRN Primary Care Provider Encounter Details Date Type Department Care Team (Late st Contact Info) Description 03/11/2022 Transcribed Document [facility] [address] [place] [address] ProviderTeena MD [address] [place] [address] Social History Tobacco Use Types Packs/Day Years [...] Date Tommie rded Speak language other than Austrian at home Not on file 10/15/2023 Want [...] JOVON Austin./Sex: 1990 Female Med Rec #: [id number] Physician: Pavel ADAM MD-OBG Financial #: [id number] Pt. Type: O Room/Bed: Admit/Disch: 03/11/22 09:42:00 - [place] [facility] [place]Op Case Times Entry 1 In Preop 03/11/22 10:38:00 Ready for Holding n/a Room Patient Ready for 03/11/22 12:06:00 Surgery Patient Out of Preop 03/11/22 13:55:00 Patient Out of n/a Holding Room Last Modified By: Enedelia Andre RN 03/11/22 15:11:34 [facility] PreOp Case Times Audit 03/11/22 15:11:34 Senior Java Web Developer: EVONNE Modifier: [email or web address] <+> 1 Patient Out of Preop <+> 1 Patient Ready for Surgery Finalized By: Enedelia Andre, RN Document Signatures Signed By: Enedelia Andre RN 03/11/22 15:11 Electronically signed by Chaparrita [facility] Conversion Sealing And Canceling Machine Operator Cerner at 01/09/2023 10:50 AM CDT documented in this encounter Plan of Treatment Not on file documented as of this encounter Visit Diagnoses Not on filedocumented in this encounter Care Teams Bucket Pusher Relationship Specialty Start Date End Date Sousa, Michaela, ELECTRIC BLASTING CAP ASSEMBLER [address] [phone] PCP - General Nurse Practitioner 11/09/22 11/09/22 documented as of this encounter
--- OUTSIDE RECORDS SUMMARY | 2025-04-27 18:01 | XMS_ITS | Encounter Summary ---
Author Organization [employer] ([place], [place], [place], [place]) Address [address] [place] [address] Care Team Providers Care Network Operations Analyst Name Role Phone Michaela Sousa APRN Primary Care Provider Encounter Details Date Type Department Care Team (Late st Contact Info) Description 03/11/2022 Transcribed Document [facility] [address] [place] [address] ProviderTeena MD [address] [place] [address] Social History Tobacco Use Types Packs/Day Years [...] Date Tommie rded Speak language other than Mongolian at home Not on file 10/15/2023 Want [...] these instructions at home: Medicines ??? Take xyhn-ylx-ywsfizi and prescription medicines only as told by [...] and water are not available, use hand city carrier assistant. ? Change your dressing as told by [...] keep your urine pale yellow. ? Take kgxu-gpi-xhzeafp or prescription medicines. ? Eat foods that [...] provider. Document Revised: 08/26/2018 Document Reviewed: 03/09/2018 [employer] Patient Education ? 2020 [employer]. Obstetrics and Gynecology Endometriosis Endometriosis is a [...] balanced diet. ??? Avoid caffeine. ??? Take nbno-jlt-efbknxt and prescription medicines only as told by your health care provider. ??? Keep all follow-up visits as told by your health care provider. This is important. Where to find more information ??? [place] [employer]: https://www.acog.org/ ??? [...] provider. Document Revised: 10/30/2020 Document Reviewed: 10/30/2020 [employer] Patient Education ? 2020 [employer]. Pharmacology General Anesthesia, Adult, Care After This [...] activities are safe for you. ??? Take tpph-cqc-jybvgtu and prescription medicines only as told by [...] provider. Document Revised: 05/29/2021 Document Reviewed: 12/26/2020 [employer] Patient Education ? 2020 [employer]. documented in this encounter Plan of Treatment Not on file documented as of this encounter Visit Diagnoses Not on filedocumented in this encounter Care Teams Network Operations Analyst Relationship Specialty Start Date End Date Michaela Sousa APRN [address] [place] [address] PCP - General Nurse Practitioner 11/09/22 11/09/22 documented as of this encounter
--- OUTSIDE RECORDS SUMMARY | 2025-04-27 18:02 | XMS_ITS | Clinical Summary ---
Author Organization [facility] Address [address] [place] [address] Care Team Providers Care Control Inspector Name Role Phone Michaela Sousa APRN Primary Care Provider + [phone] Allergies Active Allergy Reactions Criticality Noted Date [...] (09/28/2018): Added automatically from request for surgery [id number] RLQ abdominal pain 09/22/2018 Overview (09/28/2018): Added automatically from request for surgery [id number] B12 deficiency 09/22/2018 Overview (09/28/2018): Added automatically from request for surgery [id number] Chronic anemia 09/18/2018 Narcotic habituation, continuous 09/17/2018 Anxiety disorder 05/12/2018 Vocal cord dysfunction 05/10/2018 Stridor 2018 Respiratory distress 05/07/2018 Moderate persistent asthma with acute exacerbati on 05/07/2018 Chronic nausea 05/07/2018 Epigastric abdominal pain 05/07/2018 Overview (05/12/2018): Added automatically from request for surgery [id number] Generalized abdominal pain 12/09/2017 Resolved Problems Problem Noted Date Diagnosed Date Resolved Date ROM (rupture of membranes), premature 12/10/2024 12/10/2024 Hematemesis 05/16/2022 05/18/2022 uterine contractions in third trimester, antepartum 04/24/2021 05/17/2021 Decreased movement 02/05/2021 11/20/2020 05/17/2021 Overview (11/20/2020): cfDNA Acute dehydration 12/14/2019 10/16/2020 Influenza B 12/14/2019 10/16/2020 Drug-induced constipation 09/22/2018 Overview (09/28/2018): Added automatically from request for surgery [id number] Non-cardiac chest pain 09/17/201810/16 Hypokalemia 09/17/2018 09/19/2018 Hypomagnesemia 09/17/2018 09/19/2018 Leukocytosis 05/07/2018 05/12/2018 Elevated liver enzymes 02/27/201810/16 Intractable nausea and vomiting 02/27/2018 03/01/2018 Intractable cyclical vomiting with nausea 02/27/2018 03/01/2018 Encounters Date Type Department Care Team Description 03/08/2025 Telephone [facility] [address] [place] [address] Aminata Nassar MD Advice Only 02/16/2025 6:42 PM EDT - 02/16/2025 8:43 PM EDT Emergency [facility] [address] [place] [id number] Sandra Caro MD Right lower quadrant pain [...] drink = 0.6 oz pur e alcohol) [facility] Utilities Answer Date Recorded In the past 12 months has [employer], gas, oil, or water [employer] threatened to shut off services in your [...] Date Recorded Retired Total Score 0 05/07/2021 [facility] of Occupat ional Health - Occupational Stress [...] things needed for daily living? No 12/10/2024 [place] Depression Scale Answer Date Recorded [place] Depression Scale Total 2 12/22/2024 The thought [...] GED or equivalent No 12/10/2024 Preferred Language Amharic 12/10/2024 PHQ-2 Answer Date Recorded Patient Health [...] Description 05/31/2025 3:00 PM EDT Office Visit [facility] [address] [address] Leah Castillo, ELECTION WATCHER [address] [facility] [address] [place], [place] [phone] 06/28/2025 3:45 PM EDT Office Visit [facility] [address] [address] Aminata Nassar MD [address] [place] [id number] Health Maintenance Due Date Last Done Comments [...] 12/08/2018, 12/10/2017 Medical Devices Implanted Type Area Cardiovascular Surgeon Device Identifier Shelf Expiration Date Model / Serial / Lot Stnt Percuflx No Gw 4.8x26 - [id number] Implanted:Qty: 1 on 12/18/2022 by Raulito Lancaster MD at [facility] Stent Right: Urinary Bladder Winerist 08/19/2025 [id number] / / [id number] Procedures Procedure Name Priority Date/Time Associated Diagnosis [...] Laterality Modality Radiographic Isabel ging Olivia [facility] IMG DIAGNOSTIC IMAGING OR DERABLES Final Result * LABS SCANNED (03/27/2025) [employer] [facility] LAB BLOOD ORDERABLES Kate l Result [...] MD 02/16/2025 5:35 PM EDT Workstation ID: [id number] Narrative 02/16/2025 5:[address] ABDOMEN [...] MD 02/16/2025 5:35 PM EDT Workstation ID: [id number] us Sandra Caro MD IMG CT ORDERABLES [...] significant change was found Confirmed by SANDRA CRAO ([id number]) on 02/18/2025 4:07:31 PM Referred By: [...] MD 02/16/2025 4:53 PM EDT Workstation ID: [id number] Narrative 02/16/2025 4:53 PM EDT DATE: February [...] MD 02/16/2025 4:53 PM EDT Workstation ID: [id number] us Sandra Caro MD IMG US ORDERABLES Final Result * US Testicular or Ovarian Vascular Limited (02/16/2025 4:40 PM EDT) Anatomical Region Laterality Modality Testes, Vascular Ultrasound 02/16/2025 4:42 PM EDT Impressions 02/16/2025 4:53 PM EDT 1.2.5 cm right ovarian cyst, likely physiologic. 2.Uterus appears somewhat hypervascular, nonspecific. Electronically Signed: Edil Beckford MD 02/16/2025 4:53 PM EDT Workstation ID: [id number] Narrative 02/16/2025 4:53 PM EDT DATE: February [...] MD 02/16/2025 4:53 PM EDT Workstation ID: [id number] us Sandra Caro MD [facility] [place] ORDERABLES Final Result * Black Top (02/16/2025 4:06 PM EDT) Extra Tube Hold for add-ons. 02/16/2025 4:15 PM EDT [facility] Comment:Auto resulted. Blood Venipuncture / Unknown 02/16/2025 4:06 PM EDT 02/16/2025 4:13 PM EDT Sandra Caro MD LAB BLOOD ORDER ONLY Fin al Result Performing Organization Address City/[facility]/ZIP Co de Phone Number [facility]
[address] [place] [address], [place] [phone] * TSH Rfx On Abnormal To Free T4 (02/16/2025 4:06 PM EDT) TSH 1.210 0.270 - 4.200 uIU/mL 02/16/2025 4:57 PM EDT [facility] Blood Venipuncture / Unknown 02/16/2025 4:06 PM EDT 02/16/2025 4:13 PM EDT Sandra Caro MD LAB BLOOD ORDERABLES Fin al Result Performing Organization Address [facility]/ZIP Co de Phone Number [facility]
[address] [place] [address], [place] [phone] * Gold Top - SST (02/16/2025 4:06 PM EDT) Extra Tube Hold for add-ons. 02/16/2025 4:15 PM EDT [facility] Comment:Auto resulted. Blood Venipuncture / Unknown 02/16/2025 4:06 PM EDT 02/16/2025 4:13 PM EDT Sandra Caro MD LAB BLOOD ORDER ONLY Fin al Result Performing Organization Address City/[facility]/ZIP Co de Phone Number [facility]
[address] [place] [address], [place] [phone] * Green Top (Gel) (02/16/2025 4:06 PM EDT) Extra Tube Hold for add-ons. 02/16/2025 4:15 PM EDT [facility] Comment:Auto resulted. Blood Venipuncture / Unknown 02/16/2025 4:06 PM EDT 02/16/2025 4:13 PM EDT us Sandra Caro MD LAB BLOOD ORDER ONLY Fin al Result [facility]
[address] [place] [address], * Procalcitonin (02/16/2025 4:06 PM EDT) Procalcitonin 0.02 0.00 - 0.25 ng/mL 02/16/2025 4:57 PM EDT [facility] Blood Venipuncture / Unknown 02/16/2025 4:06 PM EDT 02/16/2025 4:13 PM EDT Narrative [facility] - 02/16/2025 4:57 PM EDT As [...] Day 4 values are available. Refer to http://www.fzmhtz-eho-tyanaxparz.com Change in PCT <=80% A decrease of [...] MD LAB BLOOD ORDERABLES Fin al Result [facility]
[address] [place] [address], * CBC Auto Differential (02/16/2025 4:06 PM EDT) [facility] WBC 6.26 3.40 - 10.80 10*3/mm3 02/16/2025 4:19 PM EDT [facility] RBC 4.29 3.77 - 5.28 10*6/mm3 02/16/2025 4:19 PM EDT [facility] Hemoglobin 12.2 12.0 - 15.9 g/dL 02/16/2025 4:19 PM EDT [facility] Hematocrit 37.6 34.0 - 46.6 % 02/16/2025 4:19 PM EDT [facility] MCV 87.6 79.0 - 97.0 fL 02/16/2025 4:19 PM EDT [facility] MCH 28.4 26.6 - 33.0 pg 02/16/2025 4:19 PM EDT [facility] MCHC 32.4 31.5 - 35.7 g/dL 02/16/2025 4:19 PM EDT [facility] RDW 13.6 12.3 - 15.4 % 02/16/2025 4:19 PM EDT [facility] RDW-SD 43.8 37.0 - 54.0 fl 02/16/2025 4:19 PM EDT [facility] MPV 9.0 6.0 - 12.0 fL 02/16/2025 4:19 PM EDT [facility] Platelets 285 140 - 450 10*3/mm3 02/16/2025 4:19 PM EDT [facility] Neutrophil % 63.8 42.7 - 76.0 % 02/16/2025 4:19 PM EDT [facility] Lymphocyte % 22.8 19.6 - 45.3 % 02/16/2025 4:19 PM EDT [facility] Monocyte % 8.0 5.0 - 12.0 % 02/16/2025 4:19 PM EDT [facility] Eosinophil % 4.3 0.3 - 6.2 % 02/16/2025 4:19 PM EDT [facility] Basophil % 0.8 0.0 - 1.5 % 02/16/2025 4:19 PM EDT [facility] Immature Grans % 0.3 0.0 - 0.5 % 02/16/2025 4:19 PM EDT [facility] Neutrophils, Absolute 3.99 1.70 - 7.00 10*3/mm3 02/16/2025 4:19 PM EDT [facility] Lymphocytes, Absolute 1.43 0.70 - 3.10 10*3/mm3 02/16/2025 4:19 PM EDT [facility] Monocytes, Absolute 0.50 0.10 - 0.90 10*3/mm3 02/16/2025 4:19 PM EDT [facility] Eosinophils, Absolute 0.27 0.00 - 0.40 10*3/mm3 02/16/2025 4:19 PM EDT [facility] Basophils, Absolute 0.05 0.00 - 0.20 10*3/mm3 02/16/2025 4:19 PM EDT [facility] Immature Grans, Absolute 0.02 0.00 - 0.05 10*3/mm3 02/16/2025 4:19 PM EDT [facility] nRBC 0.0 0.0 - 0.2 /100 WBC 02/16/2025 4:19 PM [facility] Blood Venipuncture / Unknown 02/16/2025 4:06 PM EDT 02/16/2025 4:13 PM EDT Sandra Caro MD LAB BLOOD ORDERABLES Fin al Result Performing Organization Address [facility]/ZIP Co de Phone Number [facility]
[address] [place] [address], [place] [phone] * Lavender Top (02/16/2025 4:06 PM EDT) Extra Tube hold for add-on 02/16/2025 4:15 PM EDT [facility] Comment:Auto resulted Blood Venipuncture / Unknown 02/16/2025 4:06 PM EDT 02/16/2025 4:13 PM EDT Sandra Caro MD LAB BLOOD ORDER ONLY Fin al Result Performing Organization Address [facility] Co de Phone Number [facility]
[address] [place] [address], * Light Blue Top (02/16/2025 4:06 PM EDT) Extra Tube Hold for add-ons. 02/16/2025 4:15 PM EDT [facility] Comment:Auto resulted Blood Venipuncture / Unknown 02/16/2025 4:06 PM EDT 02/16/2025 4:13 PM EDT Sandra Caro MD LAB BLOOD ORDER ONLY Fin al Result Performing Organization Address City/[facility] Co de Phone Number [facility]
[address] [place] [address], [place] [phone] * High Sensitivity Troponin T (02/16/2025 4:06 PM EDT) HS Troponin T <6 <14 ng/L 02/16/2025 5:00 PM EDT [facility] Blood Venipuncture / Unknown 02/16/2025 4:06 PM EDT 02/16/2025 4:13 PM EDT [facility] - 02/16/2025 5:00 PM EDT [...] MD LAB BLOOD ORDERABLES Fin al Result [facility]
[address] [place] [address], * C-reactive Protein (02/16/2025 4:06 PM EDT) C-Reactive Protein 0.32 0.00 - 0.50 mg/dL 02/16/2025 5:00 PM EDT [facility] Blood Venipuncture / Unknown 02/16/2025 4:06 PM EDT 02/16/2025 4:13 PM EDT Sandra Caro MD LAB BLOOD ORDERABLES Fin al Result [facility]
[address] [place] [address], * hCG, Quantitative, (02/16/2025 4:06 PM EDT) HCG Quantitative <0.10 mIU/mL 02/17/20 5:11 PM EDT [facility] Blood Venipuncture / Unknown 02/16/2025 4:06 PM EDT 02/16/2025 4:13 PM EDT Narrative [facility] - 02/16/2025 5:11 PM EDT HCG [...] MD LAB BLOOD ORDERABLES Fin al Result [facility]
[address] [place] [address], * Phosphorus (02/16/2025 4:06 PM EDT) Phosphorus 2.9 2.5 - 4.5 mg/dL 02/16/2025 5:00 PM EDT [facility] Blood Venipuncture / Unknown 02/16/2025 4:06 PM EDT 02/16/2025 4:13 PM EDT Sandra Caro MD LAB BLOOD ORDERABLES Fin al Result [facility]
[address] [place] [address], * Magnesium (02/16/2025 4:06 PM EDT) Magnesium 2.0 1.6 - 2.6 mg/dL 02/16/2025 5:01 PM EDT [facility] Blood Venipuncture / Unknown 02/16/2025 4:06 PM EDT 02/16/2025 4:13 PM EDT Sandra Caro MD LAB BLOOD ORDERABLES Fin al Result Performing Organization Address City/[facility]/ZIP Co de Phone Number [facility]
[address] [place] [address], * Lipase (02/16/2025 4:06 PM EDT) Lipase 18 13 - 60 U/L 02/16/2025 5:00 PM EDT [facility] Blood Venipuncture / Unknown 02/16/2025 4:06 PM EDT 02/16/2025 4:13 PM EDT Sandra Caro MD LAB BLOOD ORDERABLES Fin al Result Performing Organization Address [facility] de Phone Number [facility]
[address] [place] [address], * Lactic Acid, Plasma (02/16/2025 4:06 PM EDT) Lactate 1.4 0.5 - 2.0 mmol/L 02/16/2025 4:52 PM EDT [facility] Comment:Falsely depressed re sults may occur on samples drawn from patients receiving N-Acetylcysteine (NAC) or Metamizole. Blood Venipuncture / Unknown 02/16/2025 4:06 PM EDT 02/16/2025 4:13 PM EDT Sandra Caro MD LAB BLOOD ORDERABLES Fin al Result Performing Organization Address City/[facility] Co de Phone Number [facility]
[address] [place] [address], [place] [phone] * (ABNORMAL) Comprehensive Metabolic Panel (02/16/2025 4:06 PM EDT) [facility] Glucose 95 65 - 99 mg/dL 02/16/2025 5:04 PM EDT [facility] BUN 7 6 - 20 mg/dL 02/16/2025 5:04 PM EDT [facility] Creatinine 0.61 0.57 - 1.00 mg/dL 02/16/2025 5:04 PM EDT [facility] Sodium 141 136 - 145 mmol/L 02/16/2025 5:04 PM EDT [facility] Potassium 4.3 3.5 - 5.2 mmol/L 02/16/2025 5:04 PM EDT [facility] Comment:Slight hemolysis det ected by analyzer. Result may be falsely elevated. Chloride 107 98 - 107 mmol/L 02/16/2025 5:04 PM EDT [facility] CO2 22.0 22.0 - 29.0 mmol/L 02/16/2025 5:04 PM EDT [facility] Calcium 9.4 8.6 - 10.5 mg/dL 02/16/2025 5:04 PM EDT [facility] Total Protein 7.2 6.0 - 8.5 g/dL 02/16/2025 5:04 PM EDT [facility] Albumin 4.2 3.5 - 5.2 g/dL 02/16/2025 5:04 PM EDT [facility] ALT (SGPT) 14 1 - 33 U/L 02/16/2025 5:04 PM EDT [facility] AST (SGOT) 20 1 - 32 U/L 02/16/2025 5:04 PM T [facility] Comment:Slight hemolysis det ected by analyzer. Result may be falsely elevated. Alkaline Phosphatase 125(H) 39 - 117 U/L 02/16/2025 5:04 PM EDT [facility] Total Bilirubin <0.2 0.0 - 1.2 mg/dL 02/16/2025 5:04 PM EDT [facility] Globulin 3.0 gm/dL 02/16/2025 5:04 PM EDT [facility] Comment:Calculated Result A/G Ratio 1.4 g/dL 02/16/2025 5:04 PM EDT [facility] BUN/Creatinine Ratio 11.5 7.0 - 25.0 02/16/2025 5:04 PM EDT [facility] Anion Gap 12.0 5.0 - 15.0 mmol/L 02/16/2025 5:04 PM EDT [facility] eGFR 122.0 >60.0 mL/min/1.7 3 02/16/2025 5:04 PM EDT [facility] Blood Venipuncture / Unknown 02/16/2025 4:06 PM EDT 02/16/2025 4:13 PM EDT Narrative [facility] - 02/16/2025 5:04 PM EDT GFR [...] MD LAB BLOOD ORDERABLES Fin al Result [facility]
[address] [place] [address], * (ABNORMAL) Urinalysis With Microscopic If Indicated (No Culture) - Urine, Clean Catch (02/16/2025 2:41 PM EDT) Color, UA Yellow Yellow, Straw 02/16/2025 2:51 PM EDT [facility] Appearance, UA Clear Clear 02/16/2025 2:51 PM EDT [facility] pH, UA 6.0 5.0 - 8.0 02/16/2025 2:51 PM EDT [facility] Specific [place], UA 1.026 1.001 - 1.030 02/16/2025 2:51 PM EDT [facility] Glucose, UA Negative Negative 02/16/2025 2:51 PM EDT [facility] Ketones, UA Trace(A) Negative 02/16/2025 2:51 PM EDT [facility] Bilirubin, UA Negative Negative 02/16/2025 2:51 PM EDT [facility] Blood, UA Negative Negative 02/16/2025 2:51 PM EDT [facility] Protein, UA Negative Negative 02/16/2025 2:51 PM EDT [facility] Leuk Esterase, UA Negative Negative 02/16/2025 2:51 PM EDT [facility] Nitrite, UA Negative Negative 02/16/2025 2:51 PM EDT [facility] Urobilinogen, UA 0.2 E.U./dL 0.2 - 1.0 E.U./dL 02/16/2025 2:51 PM EDT [facility] Urine Urine specimen obtained by clean catch procedure / Unknown Collection / Unknown 02/16/2025 2:41 PM EDT 02/16/2025 2:46 PM EDT Narrative [facility] - 02/16/2025 2:51 PM EDT Urine microscopic not indicated. us Sandra Caro MD URINE ORDERABLES Final R esult [facility]
[address] [place] [address], * , Urine - Urine, Clean Catch (02/16/2025 2:41 PM EDT) HCG, Urine QL Negative Negative DISK DIFFUSION 02/16/2025 3:07 PM EDT [facility] Urine Urine specimen obtained by clean catch procedure / Unknown Collection / Unknown 02/16/2025 2:41 PM EDT 02/16/2025 2:46 PM EDT Sandra Caro MD URINE ORDERABLES Final R esult Performing Organization Address [facility] Co de Phone Number [facility]
[address] [place] [address], * Pap IG, HPV-hr (10/18/2020 2:06 PM EST) ThinPrep Vial Tash Jackson MD PATHOLOGY/CYTOLOGY ORDERABLES Fi nal Result Performing Organization Address [facility] Co de Phone Number [facility]
[address] [place] [address], * Hepatitis C Antibody (10/17/2020 2:08 PM EST) Hepatitis C Ab Non-Reacti ve Non-Reacti ve 10/17/2020 7:29 PM EST [facility] Blood Venipuncture / Unknown 10/17/2020 2:08 PM EST 10/17/2020 2:08 PM EST Narrative [facility] - 10/17/2020 7:29 PM EST Results may be falsely decreased if patient taking Biotin. Tash Jackson MD LAB BLOOD ORDERABLES Final Resul t Performing Organization Address City/[facility] Co de Phone Number [facility]
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 The last day before reporting a new confirmed COVID-19 would be 12/08/20. -Alida Banda RN 09/09/2020 12/25/2020 Insurance [facility] Advance Directives * CPR (Attempt to Resuscitate) [...] Of Support Discussed With: Patient Care Teams Control Inspector Relationship Specialty Start Date End Date Michaela Sousa APRN [address] [place] [address] [facility] [id number] PCP - General Internal Medicine 09/04/24
[2025-04-27 18:05] VITALS: BP 112/90; PULSE 70; RESP 18; TEMP 36.9; O2SAT 99; BMI 22.4
--- NOTE | 2025-04-27 18:31 | XR_ITS ---
PROCEDURE INFORMATION: Exam: XR Left Shoulder Exam date and time: 04/27/2025 6:29 PM Age: 34 years old Clinical indication: Pain; Shoulder; Left; Additional info: Anterior left shoulder pain TECHNIQUE: Imaging protocol: Radiologic exam of the left shoulder. Views: 2 or more views. Total images: 3 COMPARISON: CR XR SHOULDER LT MIN 2V 04/27/2025 6:29 PM FINDINGS: Bones/joints: No acute fracture, joint dislocation, or AC joint separation. Unremarkable joint spaces. Maintain subacromial distance. No concerning bone lesions. Soft tissues: Unremarkable soft tissues. IMPRESSION: Negative left shoulder.
[2025-04-27] MEDS: APAP/HYDROCODONE 325MG/7.5MG TAB 1 TAB PO (18:43)
[2025-04-27 18:50] VITALS: BP 120/89; O2SAT 100
[2025-04-27 19:00] VITALS: BP 119/83; PULSE 63; O2SAT 97
--- NOTE | 2025-04-27 19:08 | ED_ITS ---
<Statement entered by Pavel Hook MD - 04/28/25 21:07> I was consulted by the AMANDO, and we discussed the complexity of the problems being addressed. I approved the treatment and management plan for this patient's care in the emergency department, thus performing a substantive portion of the medical decision making. Pavel Hook MD, CHAVA, FACEP Discharge Plan Disposition Patient Disposition: Home, Self-Care Condition: Good Prescriptions Prescriptions: New prednisone 50 mg tablet 50 mg PO DAILY 5 Days Qty: 5 0RF diclofenac sodium [Voltaren Arthritis Pain] 1 % gel 2 g topical QID PRN (Reason: pain (scale score 4-6)) 7 Days Qty: 50 0RF Rx Instructions: apply to single elbow, wrist or hand; for hand includes palm/fingers/back of hand No Action methylprednisolone [Medrol (Tank)] 4 mg tablets,dose pack See Rx Instructions PO PER PKG DIR Qty: 21 0RF Rx Instructions: PO PER PKG DIR for 6 days amoxicillin-pot clavulanate 875-125 mg tablet 1 tab PO BID 10 Days Qty: 20 0RF gabapentin 300 mg capsule 300 mg PO Patient Comments: TAKE ONE CAPSULE BY MOUTH EVERY 8 HOURS MAY CAUSE DROWSINESS cyanocobalamin (vitamin B-12) 1,000 mcg/mL solution 1,000 mcg SQ Patient Comments: INJECT 1 ML DIRECTED EVERY 28 DAYS pantoprazole 40 mg tablet,delayed release (DR/EC) 40 mg PO ONCE Patient Comments: TAKE ONE TABLET BY MOUTH TWICE DAILY famotidine [Pepcid] 20 mg Tablet 20 mg PO DAILY Referrals Follow up/Referrals: Olivia Patel [Primary Care Provider, Medical] - See instructions Activity Restrictions/Add. Instructions Additional Instructions/Restrictions: Today you were evaluated in the emergency department. The x-ray of your left shoulder does not show any acute findings. I feel that you most likely have an overuse tendinopathy, please take the Voltaren gel and steroids as directed. Please follow-up with a Ortho provider of your choice. Return to the ED for any worsening of condition. Clinical Impressions Clinical Impression: Tendinopathy Instructions Patient Instructions: Acetaminophen Print Language Print Language: Colombian Discharge ED Provider: Pavel Hook General Adult HPI General Chief complaint: Extremity Problem,Nontraumatic Stated complaint: L arm pain; Time Seen by Provider: 04/27/25 18:09 Mode of Arrival: Ambulatory Source of Information: Patient Description of Symptoms (Recalled from ER Triage Doc. by RN): c/o left shoulder/arm pain without any known injury. Pt reports that two days ago she s tarted with a noticeable discomfort in arm, over the past few days the discomfort has turned into pain causing her to be unable to lift arm up to do intubations at work. Pt reports that she feels like it has some warmth to it. History of Present Illness HPI narrative: patient is a 34 yo F who presented to the ED for complaints of left shoulder and left upper arm pain that started 3 days ago. 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 Related Data Home Medications ?Medication ?Instructions ?Recorded ?Confirmed famotidine 20 mg tablet (Pepcid) 20 mg PO DAILY 03/13/25 cyanocobalamin (vitamin B-12) 1,000 mcg SQ 02/07/25 1,000 mcg/mL injection solution gabapentin 300 mg capsule 300 mg PO 02/07/25 03/13/25 pantoprazole 40 mg tablet,delayed 40 mg PO ONCE 03/13/25 release Previous Rx's ?Medication ?Instructions ?Recorded amoxicillin 875 mg-potassium 1 tab PO BID 10 days #20 tabs 03/13/25 clavulanate 125 mg tablet methylprednisolone 4 mg tablets in See Rx Instructions PO PER PKG DIR 03/13/25 a dose pack (Medrol (Tank)) #21 tabs diclofenac sodium 1 % topical gel 2 g topical QID PRN pain (scale 04/27/25 (Voltaren Arthritis Pain) score 4-6) 7 days #50 grams prednisone 50 mg tablet 50 mg PO DAILY 5 days #5 tab s 04/27/25 Allergies Allergy/AdvReac Type Severity Reaction Status Date / Time celecoxib (From Celebrex) Allergy Severe Anaphylaxis Verified 03/13/25 16:07 latex (LATEX) Allergy Severe Anaphylaxis Verified 03/13/25 16:07 coconut Allergy Unknown Anaphylaxis Verified 03/13/25 16:07 Pertussis Vaccines Allergy Unknown Unknown Verified 03/13/25 16:07 (PERTUSSIS VACCINES) allergy reaction pineapple (PINEAPPLE) Allergy Unknown Unknown Verified 03/13/25 16:07 allergy reaction Sulfa (Sulfonamide Allergy Unknown Unknown Verified 03/13/25 16:07 Antibiotics) (SULFA allergy (SULFONAMIDE ANTIBIOTICS)) reaction dicyclomine (From Bentyl) AdvReac Verified 03/13/25 16:07 ketamine AdvReac Verified 03/13/25 16:07 PFSH [facility] Disclaimer: The information contained in this section may have been updated after the patient was seen, as this information can be updated by other users. Medical History (Updated 04/27/25 @ 19:31 by Maia Llamas APRN) Sinusitis Viral upper respiratory infection Liver disease Depression Anxiety History of anemia History of gastroesophageal reflux (GERD) Kidney stone Migraine Surgical History History of tonsillectomy History of cholecystectomy History of section Family History Grandfather Cancer Colon Cancer Mother Cancer Thyroid Cancer Sister Cancer Cervical Cancer Grandmother Cancer Maternal Grandmother-Cervical, Breast and Lung Cancer Social History Smoking Status: Never smoker second hand exposure: No alcohol intake: never current occupational status: employed Travel in the last 8 weeks?: None household members: other housing: house 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 current occupational exposures/hazards: No caffeine: Yes Have you lived/traveled outside US in past 30 days?: No Contact w/someone who lives/traveled outside US past 30 days?: No Exposure to someone with infectious disease in past 14 days?: No Do you have a fever (greater than 100.4 F or 38 C)?: No Have you tested positive for COVID-19?: No Exposed to someone with COVID-19 in past 14 days?: No Do you have a sore throat?: No Do you have a cough?: No Do you have any weakness?: No Do you have any diarrhea?: No Are you experiencing any unusual bleeding?: No Do you have any muscle aches/pain?: No Do you have any abdominal pain?: No Are you experiencing loss of taste or smell?: No Other Medical History Have you received the Flu Vaccine for this season: Yes Have you received the Pneumonia Vaccine: No ROS Obtained: Yes Systems reviewed as appropriate & no additional complaints except as documented Physical Exam General General appearance: alert and in no apparent distress Head Head exam: atraumatic Eye Eye exam: Present normal appearance Respiratory Respiratory exam: Present normal lung sounds bilaterally Cardiovascular Cardiovascular exam: Present regular rate Expanded Upper Extremity Exam Left: Shoulder exam: Present tenderness over AC joint and other (ttp lateral and anterior shoulder, limited in flexion due to anterior pain, normal rom in abduction. positive hawkin's positive neer's) Neurological Exam Neurological exam: Present alert and oriented X3 Medical Decision Making Medical Records Screening: Per USPSTF and CDC recommendations, given the prevalence of disease in our region, it is our hospital?s policy to screen for HIV and viral Hepatitis for all patients aged 18 and over and those with ongoing risk factors. Federico Inquiry Pt receiving controlled substance: No Vital Signs: 04/27/25 17:58 04/27/25 18:00 04/27/25 18:05 Temperature 98.4 F Temperature Source Oral Pulse Rate 72 70 Pulse Rate [Left Radial] 70 Respiratory Rate 18 Blood Pressure 112/90 123/87 Blood Pressure [Right Arm] 112/90 Blood Pressure Mean [Right Arm] 97 Blood Pressure Source Blood Pressure Position [Right Arm] Sitting 02 Sat by Pulse Oximetry 98 98 99 Oxygen Delivery Method Room Air Room Air Room Air 04/27/25 18:50 04/27/25 19:00 04/27/25 19:36 Temperature 98.4 F Temperature Source Oral Pulse Rate 63 70 Pulse Rate [Left Radial] Respiratory Rate 16 Blood Pressure 120/89 119/83 119/83 Blood Pressure [Right Arm] Blood Pressure Mean [Right Arm] Blood Pressure Source Automatic Cuff Blood Pressure Position [Right Arm] 02 Sat by Pulse Oximetry 100 97 Oxygen Delivery Method Room Air Room Air Room Air Orders (Tests/Meds): ED MEDICATIONS Discontinued Medications Generic Name Dose Route Start Last Admin Trade Name Freq PRN Reason Stop Dose Admin Hydrocodone Bitart/Acetaminophen 1 tab 04/27/25 18:31 04/27/25 18:43 Apap/Hydrocodone 325mg/7.5mg Tab PO 04/27/25 18:32 1 tab ONCE ONE Administration ORDERS Category Date Time Status XR shoulder LT min 2V Stat Exams 04/27/25 18:31 Completed Medical Decision Narrative: In summary, patient is a 34 yo F who presented to the ED for complaints of left shoulder and left upper arm pain that started 3 days ago. 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 States that she currently is unable to perform intubation motion due to pain and inability to flex left shoulder. She denies trauma or other acute injury. Has tried tylenol and a few left over steroid tablets without relief. Upon initial evaluation, patient is alert and oriented, hds. PE was notablef or anterior shoulder pain radiating to the anterior proximal humerus. patient able to perform abduction but has limited flexion of the shoulder due to pain without notable significant weakness. left shoulder x-ray obtained without notable acute fracture or dislocation. discussed with patient that her exam and history is consistent with overuse tendinopathy, AC impingement, and/or biceps tendinopathy given her work exposure, description of symptoms, and exam. We had a discussion regarding next steps for treatment and workup. We discussed the utility of ct and mri in her context. CT in her case would not notably belt changer, as I do not have a strong suspicion for signifiant bony injury in her case. While MRI may be a useful modality outpatient if she has continued symptoms despite conservative management or worsening weakness, we are unable to obtain this study in the emergency department. I discussed ortho follow-up with her, which she decided to make her own appointment for follow-up. discussed return precautions for new or worsening symptoms. While in the ED she was given hydrocodone for pain. Also prescribed 5 days of prednisone as anti-inflammatory and advised to take with food. She does have a hx of gib, which was considered, and discussed with both attending and patient. After weighing risks and benefits, via shared decision making, given the patient's significant limiations, elected to proceed with short course of steroid and return precautions for gib. Critical Care Critical Care Time Critical Care Time: No
[2025-04-27 19:36] VITALS: BP 119/83; PULSE 70; RESP 16; TEMP 36.9
== END 2025-04-27 19:37 | disposition home or self-care (01) ==
PROVIDERS: Emergency Provider Student in an Organized Health Care Education/Training Program; PCP Family Medicine
DX: M67.912 Unspecified disorder of synovium and tendon, left shoulder (principal); M25.512 Pain in left shoulder
CPT/HCPCS: 73030; 99283

== ENCOUNTER → 2025-05-11 14:29 | Outpatient (REF) | payer SELFPAY ==
--- OUTSIDE RECORDS SUMMARY | 2025-01-02 11:15 | XMS_ITS ---
Author Organization [facility] Address [address] [facility] [address] [place] [address] Care Team Providers Care Validation Architect Name Role Phone Chelita Jackson Unavailable [phone] Seda Sutton Unavailable [phone] REASON FOR VISIT 2 WK INCISION CHECK Social History Sex Assigned At : Social History Observation Description Sex Assigned At Female Encounters Encounter Location Date Provider Diagnosis [facility] [address] [facility] [address] [place] [address] 01/02/2025 Seda Sutton Plan Of Treatment No Information Progress Notes * Maia KOVACSDOB:[birth year] (35 yo F)Acc No.[id number]:01/02/2025 Progress Note Patient: Dylan kathrynshirley Maia Zhao Provider: Tomeka Sutton MD :1990 A ge:34 Y S ex:Female Date:01/02/2025 Address:[address] [place] [address] [place] [facility] Subjective: * Chief Complaints: * 2 WK INCISION CHECK * Electronic signature of Maureen Sutton MD on 05/11/2025 at 02:32 PM EDT Sign off status: Pending Visit Status: C ANC-PD (Cancelled Patient Delivered) * Provider: Tomeka Sutton MD Date: 0 01/02/2025 Generated for Printi ng/Faxing/eTransmitting on: 0 05/11/2025 02:32 PM EDT
--- OUTSIDE RECORDS SUMMARY | 2025-01-30 11:15 | XMS_ITS ---
Author Organization [facility] Address [address] [facility] [address] [place] [address] Care Team Providers Care Financial Aid Director Name Role Phone Chelita Jackson Unavailable [phone] Rafael Suttonah Unavailable [phone] REASON FOR VISIT 6 WK PP Social History Sex Assigned At : Social History Observation Description Sex Assigned At Female Encounters Encounter Location Date Provider Diagnosis [facility] [address] [facility] [address] [place] [address] 01/30/2025 Seda Sutton Plan Of Treatment No Information Progress Notes * Maia KOVACSDOB:[birth year] (35 yo F)Acc No.[id number]:01/30/2025 Progress Note Patient: Dylan kathrynshirley Maia Zhao Provider: Tomeka Sutton MD :1990 A ge:34 Y S ex:Female Date:01/30/2025 Address:[address] [place] [address] [facility] Subjective: * Chief Complaints: * 6 WK PP * Electronic signature of Maureen Sutton MD on 05/11/2025 at 02:33 PM EDT Sign off status: Pending Visit Status: C ANC-PD (Cancelled Patient Delivered) * Provider: Tomeka Sutton MD Date: 0 01/30/2025 Generated for Printi ng/Faxing/eTransmitting on: 0 05/11/2025 02:33 PM EDT
--- OUTSIDE RECORDS SUMMARY | 2025-05-11 14:32 | XMS_ITS | Encounter Summary ---
Author Organization [facility] Address [address] [place] [address] Care Team Providers Care Network Liaison Name Role Phone Michaela Sousa APRN Primary Care Provider + [phone] Reason for Visit * Reason Onset Date Comments Advice Only 03/08/2025 Encounter Details Date Type Department Care Team (Late st Contact Info) Description 03/08/2025 Telephone [facility] [address] [address] Aminata Nassar MD [address] [address] Advice Only Social History Tobacco Use Types Packs/Day Years Used Date Smoking Tobacco: Never Passive Smoke Exposure: Never Smokeless Tobacco: Never Alcohol Use Standard Drinks/Week Comments No 0 (1 standard drink = 0.6 oz pur e alcohol) [facility] Utilities Answer Date Recorded In the past 12 months has [employer], [employer], oil, or water [employer] threatened to shut off services in your [...] Date Recorded Retired Total Score 0 05/07/2021 [facility] of Occupat ional Health - Occupational Stress [...] things needed for daily living? No 12/10/2024 [place] Depression Scale Answer Date Recorded [place] Depression Scale Total 2 12/22/2024 The thought [...] GED or equivalent No 12/10/2024 Preferred Language Greenlandic 12/10/2024 PHQ-2 Answer Date Recorded Patient Health [...] to patient: Self Best call back number: [phone] Patient is needing: PT HAD A CT OF LIVER COMPLETED ON 02/13 AND AGAIN ON 02/23 SHOWING ENLARGED, PLEASE CALL AND ADVISE. documented in this encounter Plan of Treatment Upcoming Encounters Date Type Department Care Team (Late st Contact Info) Description 05/15/2025 1:30 PM EDT Office Visit [facility] [address] [address] Leah Castillo, PATTERNMAKER APPRENTICE METAL 17[address] [facility] [address] [place] [id number] 06/28/2025 3:45 PM EDT Office Visit [facility] [address] [facility] [address] [place] [phone] Aminata Nassar MD [address] [address] documented as of this encounter Visit Diagnoses Not on filedocumented in this encounter Additional Health Concerns Infection Onset Date Last Indicated Resolved Time COVID (History) Comment:Per regional workplace relations adviser for Oswaldo PaLizeth, 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 The last day before reporting a new confirmed COVID-19 would be 12/08/20. -Alida Banda RN 09/09/2020 12/25/2020 documented as of this encounter Care Teams Network Liaison Relationship Specialty Start Date End Date Michaela Sousa APRN [address] [place] [id number] PCP - General Internal Medicine 09/04/24 documented as of this encounter
--- OUTSIDE RECORDS SUMMARY | 2025-05-11 14:32 | XMS_ITS | Clinical Summary ---
Author Organization [facility] Address [address] [place] [address] Care Team Providers Care Solid Waste Division Supervisor Name Role Phone SousaMichaela sheehan Juani KING Primary Care Provider [phone] Allergies Active Allergy Reactions Criticality Noted Date [...] or split. 30 tablet 3 Active B Mrvumtl-Nvhgtz-MC (B Complete) tablet Active pantoprazole (ProtoNix) 20 [...] declined 02/25/2023 How often do you attend druze or pentecostalism serv ices? Patient declined 02/25/2023 Do you belong to any clubs o r organizations such as druze groups, unions, fraternal or athletic groups, or [...] Recorded Patient Health Questionnaire-2 Score 4 03/01/2023 [facility] of Occupat ional Health - Occupational Stress [...] place to sleep or slept in a fpc (including now)? 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) to steady your nerves or to get [...] of 2 - 13+ 2-dose series) 2005 [facility]- SDOH Screenings 2010 [facility]-Adult SDOH Screenings 2010 [facility]-DTaP,Tdap,and Td Vaccines (1 - Tdap) 2011 [facility]-Hepatitis B Vaccines (1 of 3 - 19+ 3-dose series) 2011 [facility]-Pap Smear 2013 HPV Vaccines (1 - 3-dose SCDM series) 2019 [facility]-ACDNL-53 Vaccine (3 - Pfizer risk series) 06/04/2021 05/07/2021, 04/16/2021 [facility]-Cervical Cancer Screening 2022 [facility]-HPV/Cotest 2022 [facility]-Depression Screening 03/01/2024 03/01/2023, 0601/2023 [facility]-Influenza Vaccine (#1) 05/28/202507/07, 06/07/2018, 07/02/2017, Additional [...] 5:34 AM EDT 01/03/2018 6:18 PM EDT [facility] Provider LAB BLOOD ORDERABLES F inal Result SUNQUEST * HIV 1 & 2 Antibody/Antigen Screen (12/18/2017 5:52 AM EDT) HIV 1 Result NONREACTIVE Screening for HIV 1 and 2 antibodies is NONREACTIVE. No confirmatory testing is required. SUNQUEST 12/18/2017 5:52 AM EDT 12/18/2017 6:28 AM EDT [facility] Provider LAB BLOOD ORDERABLES F inal Result SUNQUEST from Last 3 Months or Most Recently Relevant to Health Maintenance Insurance ANDRES Care Teams Solid Waste Division Supervisor Relationship Specialty Start Date End Date Michaela Sousa APRN [address] [place] [address] PCP - General 07/24/21
--- OUTSIDE RECORDS SUMMARY | 2025-05-11 14:33 | XMS_ITS | Clinical Summary ---
Author Organization [facility] Address [facility] [address] [place], [place] [address] Phone Care Team Providers Care Welding Machine Operator Electro Gas Name Role Phone Unavailable Primary Care Provider [...] a complete record from that organization. b tiikftn-H-fdali acid (NEPHROCAP) 1 mg Oral Capsule Take [...] (07/05/2020): Added automatically from request for surgery [id number] Pelvic pain 07/05/2020 Overview (07/05/2020): Added automatically from request for surgery [id number] Scoliosis of thoracic spine 03/09/2019 S/P endometrial [...] Story LPN Medical Devices Implanted Type Area Concrete Panel Installer Device Identifier Shelf Expiration Date Model / Serial / Lot Screw For Bridge Insurance [facility] CHOICE PLUS [facility] CHOICE PLUS [facility] CHOICE PLUS [facility] CHOICE PLUS [facility] CHOICE PLUS * Guarantor: Maia Kovacs Account Type Relation to Patient Date of Phone Billing Address [place] Personal Family Self Advance Directives For more information, please contact: [phone] * Full Code (Latest Code Status on [...]
--- OUTSIDE RECORDS SUMMARY | 2025-05-11 14:33 | XMS_ITS | Encounter Summary ---
Author Organization [employer] ([place], [place], [place], [place]) Address [address] [place] [address] Care Team Providers Care Director Of Special Events Name Role Phone Michaela Sousa APRN Primary Care Provider Encounter Details Date Type Department Care Team (Late st Contact Info) Description 03/11/2022 Transcribed Document [facility] [place] Family Medicine [address] [place] [address] ProviderTeena MD [address] [place] [address] Social History Tobacco Use Types Packs/Day Years [...] Date Tommie rded Speak language other than Somali at home Not on file 10/15/2023 Want [...] Source : Measured Height Entry Format : [place] Height, Feet : 5 ft(Converted to: 152 cm, 60 Inch) Height, Inches : 9 Inch(Converted to: 0 ft 9 Inch, 22.86 cm) Clinical Height : 175.26 cm Weight Source : Standing scale Weight Entry Format : [place] Clinical Dosing Weight : 76.82 kg Weight, Pounds : 169 lb Body Surface Area (BSA) : 1.92 m2 Body Mass Index : 25 kg/m2 (HI) [place] Body Weight : 66 kg Enedelia Andre [...] Enedelia Andre RN - 03/11/2022 11:31 EDT [place] Suicide Severity Rating Scale (C-SSRS) CSSRS Past [...] Decision Maker : x Primary Language : Somali Communication Barrier : None Industrial Green Systems Designer Needed : No Enedelia Andre RN - [...] on filedocumented in this encounter Care Teams Director Of Special Events Relationship Specialty Start Date End Date Michaela Sousa APRN [address] [address] PCP - General Nurse Practitioner 11/09/22 11/09/22 documented as of this encounter
--- OUTSIDE RECORDS SUMMARY | 2025-05-11 14:33 | XMS_ITS | Clinical Summary ---
Author Organization [employer] ([place], [place], [place], [place]) Address [address] [place] [address] Care Team Providers Care Infectious Waste Technician Name Role Phone Unavailable Primary Care Provider [...] Advance Directives For more information, please contact: [phone] * Full Code (Latest Code Status on File) Date Activated Date Inactivated Comments 11/11/2022 7:28 AM 11/11/2022 12:16 PM
--- OUTSIDE RECORDS SUMMARY | 2025-05-11 14:33 | XMS_ITS | CCD ---
Author Name Interface, [employer] Address [address] [place], [place] [id number] Organization [facility] Address [address] [place], [place] [id number] Care Team Providers Care Screen Printing Cloth Spreader Name Role Phone Sukhjinder KAISER, Jens Purvis Unavailable Unavailable Reason for Visit Medications Problems Social History
--- OUTSIDE RECORDS SUMMARY | 2025-05-11 14:33 | XMS_ITS | Encounter Summary ---
Author Organization [employer] ([place], [place], [place], [place]) Address [address] [place] [address] Care Team Providers Care Blanching Machine Operator Name Role Phone Michaela Sousa APRN Primary Care Provider Encounter Details Date Type Department Care Team (Late st Contact Info) Description 03/11/2022 Transcribed Document [facility] Medicine [address] [place] [address] ProviderTeena MD [address] [place] [address] Social History Tobacco Use Types Packs/Day Years [...] Date Tommie rded Speak language other than Macedonian at home Not on file 10/15/2023 Want [...] irrigated, suctioned, and reinspected. DICTATION ENDS HERE. /[id number] PepeMD NICANOR Hassan/ARCADIO / NICANOR / MODL /[id number] Electronically signed by Chaparrita, [facility] Conversion Continuous Still Operator Cerner at 01/09/2023 10:49 AM CDT documented in this encounter Plan of Treatment Not on file documented as of this encounter Visit Diagnoses Not on filedocumented in this encounter Care Teams Blanching Machine Operator Relationship Specialty Start Date End Date Michaela Sousa, FLOOR LAYER APPRENTICE [address] [phone] PCP - General Nurse Practitioner 11/09/22 11/09/22 documented as of this encounter
--- OUTSIDE RECORDS SUMMARY | 2025-05-11 14:33 | XMS_ITS | Encounter Summary ---
Author Organization [employer] ([place], [place], [place], [place]) Address [address] [place] [address] Care Team Providers Care Forestry Contractor Name Role Phone Michaela Sousa APRN Primary Care Provider [phone] Encounter Details Date Type Department Care Team (Late st Contact Info) Description 03/11/2022 Transcribed Document [facility] [place] [address] [place] [address] ProviderTeena MD [address] [place] [address] Social History Tobacco Use Types Packs/Day Years [...] Date Tommie rded Speak language other than Yoruba at home Not on file 10/15/2023 Want [...] MD-OBG Finalized Date/Time: 03/11/22 16:56:34 Pt. Name: MAIA KOVACS JOVON [place]./Sex: 1990 Female Med Rec #: [id number] Physician: Pavel ADAM MD-OBG Financial #: [id number] Pt. Type: O Room/Bed: Admit/Disch: 03/11/22 09:42:00 - Institution: [facility] PostOp Case Times Entry 1 In PACU II 03/11/22 16:15:00 Ready for PACU II 03/11/22 16:37:00 Discharge Discharge from PACU 03/11/22 16:37:00 II Last Modified By: Amara Leon RN 03/11/22 16:56:28 Finalized By: Amara Leon RN Document Signatures Signed By: Amara Leon RN 03/11/22 16:56 Electronically signed by Chaparrita [facility] Conversion Almond Sorter Cerner at 01/09/2023 10:49 AM CDT documented in this encounter Plan of Treatment Not on file documented as of this encounter Visit Diagnoses Not on filedocumented in this encounter Care Teams Forestry Contractor Relationship Specialty Start Date End Date Michaela Sousa APRN [address] [place] [address] PCP - General Nurse Practitioner 11/09/22 11/09/22 documented as of this encounter
--- OUTSIDE RECORDS SUMMARY | 2025-05-11 14:33 | XMS_ITS | Encounter Summary ---
Author Organization [employer] ([place], [place], [place], [place]) Address [address] [place] [address] Care Team Providers Care Corporate Logistics Manager Name Role Phone Michaela Sousa APRN Primary Care Provider Encounter Details Date Type Department Care Team (Late st Contact Info) Description 03/11/2022 Transcribed Document [facility] [address] [place] [address] ProviderTeena MD [address] [place] [address] Social History Tobacco Use Types Packs/Day Years [...] Date Tommie rded Speak language other than Lithuanian at home Not on file 10/15/2023 Want [...] JOVON CheathamB./Sex: 1990 Female Med Rec #: [id number] Physician: Pavel ADAM MD-OBG Financial #: [id number] Pt. Type: O Room/Bed: Admit/Disch: 03/11/22 09:42:00 - Institution: [facility] [place]Op Case Attendance Entry 1 Entry 2 Entry 3 Case Attendee Pavel ADAM Holliday, Stewart R, BANG [address] MD-OBG Role Performed Surgeon/Proceduralist, Zmt Operator, First Scrub, First First Time In 03/11/22 [...] By: Sanchez Cadena, RN Sanchez Cadena, Sanchez Dnun RN 03/11/22 14:59:45 03/11/22 14:59:45 03/11/22 14:59:45 Entry 4 Entry 5 Entry 6 Case Attendee Jens Pedroza SONIA, PA-C GUNNING, CORTNEY, RETAIL RECEIVING CLERK, GENERAL ENGINEER-ANS Role Performed Scrub, Second Physician assistant tennis professional GENERAL ENGINEER/Nurse Motorcoach Driver Time In 03/11/22 14:02:00 03/11/22 14:02:00 03/11/22 [...] [facility] IntraOp Case Attendance Audit 03/11/22 14:59:45 Forge Helper: HOLLIDSR Modifier: HOLLIDSR 1 <+> Time Out [...] Lysis Adhesions, Ovarian Cystectomy Laparoscopic 03/11/22 14:38:59 Forge Helper: HOLLIDSR Modifier: HOLLIDSR 1 <*> Procedure Laparoscopy [...] Robotic, Vaginal Suspension, Lysis Adhesions 03/11/22 14:29:46 Forge Helper: TORREYIDSR Modifier: HOLLIDSR 1 <+> Time In [...] Laparoscopy Operative Robotic, Vaginal Suspension 03/11/22 13:46:27 Forge Helper: TORREYIDSR Modifier: HOLLIDSR 1 <*> Procedure Laparoscopy [...] S[facility] IntraOp Case Times Audit 03/11/22 14:59:44 Forge Helper: MICHAELR Modifier: HOLLIDSR <+> 1 Out Room Time <+> 1 Stop Time <+> 1 Stop Time 03/11/22 14:19:12 Forge Helper: MICHAELR Modifier: HOLLIDSR <+> 1 Start Time [...] SJE IntraOp Counts Verification Audit 03/11/22 14:39:01 Forge Helper: PAULA Modifier: HOLLIDSR 1 <*> Procedure Laparoscopy Operative Robotic, Vaginal Suspension, Cystoscopy Adult, Lysis Adhesions 03/11/22 14:29:48 Forge Helper: PAULA Modifier: HOLLIDSR 1 <*> Procedure Laparoscopy [...] SJE IntraOp Counts Final Audit 03/11/22 14:39:02 Forge Helper: PAULA Modifier: HOLLIDSR 1 <*> Procedure Laparoscopy Operative Robotic, Vaginal Suspension, Cystoscopy Adult, Lysis Adhesions S[facility] IntraOp Cultures and Spec Summary Entry 1 Cultrures and Specimens Specimen Ordered: Yes Test(s) Routine/Path-Lab Requested/Final Disposition Last Modified By: Snachez Cadena RN 03/11/22 13:49:17 SJE IntraOp Departure from OR Entry 1 Integumentary Assessment Transfer/Handoff Transfer to PACU Phase I Post-op Transport Stretcher/Stevenrney Via Patient Transport Sanchez Cadena, Accompanied by RN, TITO RODRIGUES, RETAIL RECEIVING CLERK, GENERAL ENGINEER-ANS Last Modified By: Sanchez Cadena RN 03/11/22 [...] Yes Assessment Complete Fire Risk Sanchez Cadena chassis wirer Verified By Fire Risk 03/11/22 13:48:00 Assessment Verified Date/Time Fire Risk High Risk Protocol Yes Implemented Standard Fire Yes Safety Precautions Followed Last Modified By: Sanchez Cadena RN 03/11/22 13:48:37 SJE IntraOp Fire Risk Assessment Audit 03/11/22 13:48:37 Forge Helper: PAULA Modifier: PAULA <+> 1 Fire Risk Assessment Verified Date/Time SJE IntraOp General Case Sql Developer 1 Case Information OR OR 04 SJE [...] Arrival to OR Last Modified By: Sanchez aCdena RN 03/11/22 13:48:40 SJE IntraOp Intraoperative Equipment [...] 1 Medication/Irrigant Marcaine 0.5% 30ml vial - [id number] Route of LOCAL Administration Dose Dose 10 [...] SJE IntraOp Patient Positioning Audit 03/11/22 14:39:01 Forge Helper: PAULA Modifier: HOLLIDSR 1 <*> Procedure Laparoscopy Operative Robotic, Lysis Adhesions 03/11/22 14:29:48 Forge Helper: PAULA Modifier: TORREYIDSR 1 <*> Procedure Laparoscopy [...] Intra Op Sign Out Audit 03/11/22 14:59:49 Forge Helper: PAULA Modifier: MICHAELR <+> 1 RN Sign [...] SJE IntraOp Skin Prep Audit 03/11/22 14:39:02 Forge Helper: PAULA Modifier: TORREYIDSR 1 <*> Procedure Laparoscopy Operative Robotic, Lysis Adhesions 03/11/22 14:29:49 Forge Helper: PAULA Modifier: TORREYIDSR 1 <*> Procedure Laparoscopy [...] S[facility] IntraOp Surgical Procedures Audit 03/11/22 14:59:47 Forge Helper: PAULA Modifier: HOLLIDSR <+> 1 Stop <+> 2 Stop <+> 3 Stop <+> 4 Stop <+> 5 Stop 03/11/22 14:54:15 Forge Helper: PAULA Modifier: TORREYIDSR 1 <*> Procedure Laparoscopy Operative Robotic 1 <+> Wound Class 2 <*> Procedure Vaginal Suspension 2 <+> Wound Class 03/11/22 14:54:01 Forge Helper: MICHAELR Modifier: HOLLIDSR <+> 5 Start 03/11/22 14:38:53 Forge Helper: MICHAELR Modifier: HOLLIDSR <+> 4 Start <+> 5 Procedure <+> 5 Primary Procedure <+> 5 Primary Surgeon <+> 5 Specialty <+> 5 Wound Class <+> 5 Anesthesia Type 03/11/22 14:29:43 Forge Helper: MICHAELR Modifier: HOLLIDSR <+> 1 Start <+> 2 Start <+> 3 Start <+> 4 Procedure <+> 4 Primary Procedure <+> 4 Primary Surgeon <+> 4 Specialty <+> 4 Wound Class <+> 4 Anesthesia Type 03/11/22 13:46:21 Forge Helper: MICHAELR Modifier: HOLLIDSR <+> 2 Primary Procedure [...] SJE IntraOp Time Out Audit 03/11/22 14:39:02 Forge Helper: PAULA Modifier: PALUA 1 <*> Procedure to be Performed Laparoscopy Operative Robotic, Vaginal Suspension, Cystoscopy Adult, Lysis Adhesions 03/11/22 14:29:49 Forge Helper: PAULA Modifier: MICHAELR 1 <*> Procedure to be Performed Laparoscopy Operative Robotic, Vaginal Suspension, Cystoscopy Adult Case Comments <None> Finalized By: Sanchez Cadena, RN Document Signatures Signed By: Sanchez Cadena RN 03/11/22 14:59 Electronically signed by [facility] Conversion Research Specialist Cerner at 01/09/2023 10:50 AM CDT documented in this encounter Plan of Treatment Not on file documented as of this encounter Visit Diagnoses Not on filedocumented in this encounter Care Teams Corporate Logistics Manager Relationship Specialty Start Date End Date Michaela Sousa APRN [address] [place] [address] PCP - General Nurse Practitioner 11/09/22 11/09/22 documented as of this encounter
--- OUTSIDE RECORDS SUMMARY | 2025-05-11 14:33 | XMS_ITS | Patient Health Record ---
Author Organization [facility] Address [address] [place] [address] Care Team Providers Care Airflight Attendants Supervisor Name Role Phone Chelita Jackson Unavailable [phone] Shivam Sutton Unavailable [phone] HuyValencia Unavailable [phone] Anthony Luna Unavailable [phone] Lani Gould Unavailable [phone] Leah Acosta Unavailable [phone] Georgie Perez Unavailable [phone] Allergies Allergen (clinical drug ingredient) Drug/Non Drug [...] date:08/23/2024 10:39:14 AM Interpretation: Performing Lab: Notes/Report: [facility] Transabdominal Obstetric Study Report Name: ROCIO KOVACS Accession/Encounter No:[id number] : 1990 Age: 34 Gender: F Study [...] 1 of 1 Imaging Center - , [facility] * OB Follow-Up Reviewed date:09/25/2024 07:57:44 AM Interpretation: Performing Lab: Notes/Report: [facility] Transabdominal Obstetric Study Report Name: ROCIO KOVACS Accession/Encounter No:[id number] : 1990 Age: 34 Gender: F Study [...] PM EST Electronically Signed on Studycast ROCIO ANDRIA 2024-09-18 Page 1 of 1 Imaging Center - , [facility] *US OB Follow-Up Reviewed date:11/01/2024 03:28:29 PM Interpretation: Performing Lab: Notes/Report[facility] Transabdominal Obstetric Study Report Name: ROCIO KOVACS Accession/Encounter No:[id number] : 1990 Age: 34 Gender: F Study [...] 1 of 1 Imaging Center - , [facility] CBC Reviewed date:11/01/2024 02:12:26 PM Interpretation: Performing Lab: Notes/Report: Comprehensive Metabolic Pane l (CMP) Reviewed date:11/01/2024 03:32:55 PM Interpretation:Normal Performing Lab: Notes/Report: Normal LDH Reviewed date:11/01/2024 02:11:41 PM Interpretation: Performing Lab: Notes/Report: Uric Acid, Serum Reviewed date:11/01/2024 02:12:09 PM Interpretation: Performing Lab: Notes/Report: Group B Strep by PCR w/ PCN allergy Reviewed date:11/27/2024 09:52:59 PM Interpretation:Negative Performing Lab: Notes/Report: [facility] Testing performed at: [] [facility], [address] [place] [address], [phone], , Analytical Research Program Manager: Jean Kebede, PhD Strep Gp B GREYSON+Rflx Negative Negative N vaginal and rectal swab specimen to maximize sensitivity of intrapartum prophylaxis of GBS colonization. streptococcal (GBS) disease specify co-collection of a Reflex susceptibility testing should be performed prior to [place] [employer]st[employer]ians and Gynecologists (ACOG) guidelines [...] who are considered a high risk for Comprehensive Metabolic Pane l (CMP) Reviewed date:09/10/2024 11:14:29 PM Interpretation:Normal Performing Lab: Notes/Report: Normal CBC (NO DIFF) Reviewed date:07/26/2024 01:57:15 PM [...] 140-450 10*3/mm3 Lab specimens received at a [facility].?See result details for the performing location information. [...] 140-450 10*3/mm3 Lab specimens received at a [facility].?See result details for the performing location information. GLUCOSE, POST 50 GM GLUCOLA Reviewed date:10/03/2024 03:01:33 PM Interpretation:passed - 82 Performing Lab: Notes/Report: GESTATIONAL GCT 82 65-139 mg/dL Lab spe cimens received at a [facility].?See result details for the performing location information. ANTIBODY SCREEN Reviewed date:10/03/2024 03:20:01 PM Interpretation:negative Performing Lab: Notes/Report: ANTIBODY SCREEN Negative Lab speci mens received at a [facility].?See result details for the performing location information. TREPONEMA PALLIDUM (SYPHILIS ) SCREENING CASCADE Reviewed date:10/04/2024 07:53:59 AM Interpretation:non reactive Performing Lab: Notes/Report: Reactive results will reflex RPR testing. TREPONEMAL AB TOTAL Non-Reactive Non-Reacti Lab specimens received at a [facility].?See result details for the performing location information. TISSUE PATHOLOGY EXAM Reviewed date:12/13/2024 01:05:40 PM Interpretation: Performing Lab: Notes/Report: LAB AP CASE REPORT Surgical Pathology Report Case: [id number] LAB AP CASE REPORT Authorizing Provider : Shivam Sutton MD Collected: 12/10/2024 01:35 PM LAB AP CASE REPORT Ordering Location: [facility] Received: 12/11/2024 06:35 AM LAB AP CASE REPORT LABOR DELIVERY LAB AP CASE REPORT Pathologist: Ignacia Piedra DO LAB AP CASE REPORT Specimen: Fallopian Tubes, Bilateral LAB AP CLINICAL INFORMATION Encounter for sterilization LAB AP FINAL DIAGNOSIS BILATERAL FALLOPIAN TUBES, STERILIZATION: LAB AP FINAL DIAGNOSIS Complete cross-sections of bilateral fallopian tubes identified LAB AP FINAL DIAGNOSIS at [address] [facility] LAB AP GROSS DESCRIPTION 1. Fallopian Tubes, Bilateral. BEAKER LAB AP GROSS DESCRIPTION Received in formalin labeled bilateral fallopian tube are 2 intact, undesignated, fimbriated fallopian tubes averaging 9 cm long by 0.8 cm in diameter. Sectioning of each fallopian tube reveals an unremarkable stellate lumen. Sample Supervisor sections of each tube to include the bisected fimbria and full-thickness cross-sections are submitted separately in 1 A- 1B. HDM LAB AP MICROSCOPIC DESCRIPTION The slides are reviewed and demonstrate histopathologic features supporting the above rendered diagnosis. Lab specimens received at a [facility].?See result details for the performing location information. [...] /100 WBC Lab specimens received at a [facility].?See result details for the performing location information. 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 Currently Diagnosis 1 Rectal bleeding (K62 .5) Referral Organization [facility] Referring Provider First Name Leah Referring Provider Last Name Dave Referring Provider Speciality OB - Gynec ology Referral Priority Routine Referral Appointment Date 08/03/2024 Reason skin issues in pregn paul Diagnosis 1 Skin abnormality (L9 8.9) Referral Organization [facility] Referring Provider First Name Georgie Referring Provider [...] weeks gestation o f (Z3A.22) Referral Organization [facility] Referring Provider First Name [...] Domestic violence: No Do you have any pentecostal, m oral, or cultural beliefs or customs that your provider should know about? No Would you object to blood products in the event of an emergency? 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 Problem History of section (134908194) History of delivery (Z98.891) Active confirmed Problem Sterilization requested (situation) (660149396) Request for sterilization (Z30.2) Active confirmed Problem Abnormal uterine bleeding (77140321261127) Abnormal uterine bleeding (N93.9) Active confirmed Problem History of hemorrhage (530394255) History of hemorrhage (Z87.59) Active confirmed Problem Excessive vomiting (57405920) Excessive vomiting (O21.9) 021 Active confirmed Nausea and vomiting in Vital Signs Blood pressure diastolic 60 mm Hg 12/27/2024 Height 69 in 12/27/2024 Blood pressure systolic 118 mm Hg 12/27/2024 Weight 149.4 lbs 12/27/2024 BMI 22.06 kg/m2 12/27/2024 Encounters Encounter Location Date Provider Diagnosis [facility] [address] [address] [facility] [address] [place] [address] 09/07/2024 Leah Acosta Encounter for supervision of other normal , second trimester Z34.82 [facility] [address] [place] [address] 09/11/2024 Chelita Jackson [facility] [address] [facility] [address] [place] [address] 09/11/2024 Chelita Jackson Encounter for other screening follow-up Z36.2 [facility] [address] [place] [address] 10/04/2024 [facility] [address] [place] [address] 11/30/2024 [facility] [address] [place] [address] 12/01/2024 [facility] [address] [place] [address] 12/13/2024 [facility] [address] [place] [address] [facility] for [facility]in e follow-up Z39.2 [facility] [address] [place] [address] 01/10[facility] [address] [place] [address] 11/22/20[facility] [address] [place] [address] 12/12/2024 [facility] [address] [place] [address] 12/13/2024 [facility] [address] [place] [address] 12/14/2024 [facility] [address] [place] [address] 12/14/2024 [facility] [address] [place] [address] 12/14/2024 [facility] [address] [place] [address] 12/26/2024 [facility] Abnormal uterine bleeding N93.9 [facility] [address] [place] [address] 12/26/2024 [facility] [address] [place] [address] 12/28/2024 [facility] [address] [place] [address] 12/31/2024 [facility] [address] [place] [address] 01/15/2025 [facility] [address] [place] [address] 12/27/2024 Shivam Sutton Encounter for routin e follow-up Z39.2 and Encounter for screening for maternal depression Z13.32 [facility] [address] [facility] [address] [place] [address] 07/24/2024 Leah Acosta Encounter for supervision of other normal , second trimester Z34.82 ; 17 weeks gestation of Z3A.17 ; Bruising T14.8XXA ; Chronic anemia D64.9 ; History of delivery Z98.891 ; Request for sterilization Z30.2 ; History of hemorrhage Z87.59 ; Gene mutation Z15.89 ; Hx of hepatic disease Z87.19 and Excessive vomiting O21.9 [facility] [address] [facility] [address] [place] [address] 08/22/2024 Georgie Perez 22 weeks gestation o f Z3A.22 and Encounter for supervision of other normal , second trimester Z34.82 [facility] [address] [facility] [address] [place] [address] 09/18/2024 Lani Gould 28 weeks gestation o f Z3A.28 [facility] [address] [facility] [address] [place] [address] 10/03/2024 Valencia Son Encounter for supervision of other normal , third trimester Z34.83 and 28 weeks gestation of Z3A.28 [facility] [address] [facility] [address] [place] [address] 10/17/2024 Shivam Sutton 30 weeks gestation o f Z3A.30 ; Encounter for supervision of other normal , third trimester Z34.83 and Hyperemesis gravidarum O21.0 [facility] [address] [facility] [address] [place] [address] 11/01/2024 Georgie Perez Encounter for supervision of other normal , third trimester Z34.83 and 32 weeks gestation of Z3A.32 [facility] [address] [facility] [address] [place] [address] 11/14/2024 Shivam Sutton 34 weeks gestation o f Z3A.34 ; Encounter for supervision of other normal , third trimester Z34.83 and labor without delivery O60.00 [facility] [address] [address] [place] [address] 11/23/2024 [facility], [facility] Other specified screening Z36.89 [facility] [address] [facility] [address] [address] [place] [address] 11/28/2024 Georgie Perez Encounter for supervision of other normal , third trimester Z34.83 and 36 weeks gestation of Z3A.36 [facility] [address] [address] [place] [address] 11/30/2024 [facility] 36 weeks gestation o f Z3A.36 ; Encounter for supervision of other normal , third trimester Z34.83 and Uterine contractions O47.9 [facility] [address] [address] [facility] [address] [place] [address] 12/05/2024 [facility] 37 weeks gestation o f Z3A.37 and Encounter for supervision of other normal , third trimester Z34.83 [facility] [address] [address] [place] [address] 08/22/2024 Leah Acosta Encounter for supervision of other normal , second trimester Z34.82 [facility] [address] [facility] [address] [place] [address] 09/18/2024 Lani Gould Encounter for other screening follow-up Z36.2 [facility] [address] [facility] [address] [place] [address] 11/01/2024 Georgie Perez Encounter for supervision of other normal , third trimester Z34.83 [facility] [address] [facility] [address] 12/10/2024 [facility], [facility] Assessments Encounter Date Diagnosis (ICD Code) Assessment [...] Insured Coverage Start Date Coverage End Date [facility] [address] [address] [place], [place] [id number] [id number] Rocio Kovacs Self - patient is the [...]
--- OUTSIDE RECORDS SUMMARY | 2025-05-11 14:33 | XMS_ITS | Encounter Summary ---
Author Organization [employer] ([place], [place], [place], [place]) Address [address] [place] [address] Care Team Providers Care Jewel Bearing Grinder Name Role Phone Michaela Sousa APRN Primary Care Provider Encounter Details Date Type Department Care Team (Late st Contact Info) Description 03/11/2022 Transcribed Document [facility] [address] [place] [address] ProviderTeena MD [address] [place] [address] Social History Tobacco Use Types Packs/Day Years [...] Date Tommie rded Speak language other than Spanish at home Not on file 10/15/2023 Want [...] these instructions at home: Medicines ??? Take xhnn-kwv-vvowhqr and prescription medicines only as told by [...] and water are not available, use hand last sorter. ? Change your dressing as told by [...] keep your urine pale yellow. ? Take efxb-aku-vdmjkkl or prescription medicines. ? Eat foods that [...] provider. Document Revised: 08/26/2018 Document Reviewed: 03/09/2018 [employer] Patient Education ? 2020 [employer]. Obstetrics and Gynecology Endometriosis Endometriosis is a [...] balanced diet. ??? Avoid caffeine. ??? Take jvqj-sls-hpgfjiz and prescription medicines only as told by your health care provider. ??? Keep all follow-up visits as told by your health care provider. This is important. Where to find more information ??? [employer]: https://www.acog.org/ ??? [...] provider. Document Revised: 10/30/2020 Document Reviewed: 10/30/2020 [employer] Patient Education ? 2020 [employer]. Pharmacology General Anesthesia, Adult, Care After This [...] activities are safe for you. ??? Take xjxz-frg-rjcbcvk and prescription medicines only as told by [...] provider. Document Revised: 05/29/2021 Document Reviewed: 12/26/2020 [employer] Patient Education ? 2020 [employer]. documented in this encounter Plan of Treatment Not on file documented as of this encounter Visit Diagnoses Not on filedocumented in this encounter Care Teams Jewel Bearing Grinder Relationship Specialty Start Date End Date Michaela Sousa APRN [address] [place] [address] PCP - General Nurse Practitioner 11/09/22 11/09/22 documented as of this encounter
--- OUTSIDE RECORDS SUMMARY | 2025-05-11 14:33 | XMS_ITS | Clinical Summary ---
Author Organization [facility] Address [address], [address] [place] [address] Care Team Providers Care Vp Celebrity Services Name Role Phone Carmen Juan APRN - WHEEL CUTTER Primary Care Provider Allergies Active Allergy Reactions [...] on file Medical Devices Implanted Type Area Concrete Fence Builder Device Identifier Shelf Expiration Date Model / Serial / Lot Jaw Screw Screw/Pl ate/Nail /Alban Left: Mandible Description:MRI compatible Insurance [facility] [place] [id number] Advance Directives * Full Code (Latest Code Status on File) Date Activated Date Inactivated Comments 12/10/2018 3:14 AM 12/10/2018 9:58 PM * Full Code Date Activated Date Inactivated Comments 10/08/2018 12:42 AM 10/09/2018 3:48 PM Care Teams Vp Celebrity Services Relationship Specialty Start Date End Date Carmen Juan APRN - NP [facility] [address] [facility] [address] [place] [address] PCP - General 07/22/20
--- OUTSIDE RECORDS SUMMARY | 2025-05-11 14:33 | XMS_ITS | Clinical Summary ---
[facility] Organization [facility] Address [address] [place] [address] Care Team Providers Care Footwear Production Machine Operator Name Role Phone Michaela Sousa APRN Primary Care Provider + [phone] Allergies Active Allergy Reactions Criticality Noted Date [...] (09/28/2018): Added automatically from request for surgery [id number] RLQ abdominal pain 09/22/2018 Overview (09/28/2018): Added automatically from request for surgery [id number] B12 deficiency 09/22/2018 Overview (09/28/2018): Added automatically from request for surgery [id number] Chronic anemia 09/18/2018 Narcotic habituation, continuous 09/17/2018 Anxiety disorder 05/12/2018 Vocal cord dysfunction 05/10/2018 Stridor 2018 Respiratory distress 05/07/2018 Moderate persistent asthma with acute exacerbati on 05/07/2018 Chronic nausea 05/07/2018 Epigastric abdominal pain 05/07/2018 Overview (05/12/2018): Added automatically from request for surgery [id number] Generalized abdominal pain 12/09/2017 Resolved Problems Problem Noted Date Diagnosed Date Resolved Date ROM (rupture of membranes), premature 12/10/2024 12/10/2024 Hematemesis 05/16/2022 05/18/2022 uterine contractions in third trimester, antepartum 04/24/2021 05/17/2021 Decreased movement 02/05/2021 11/20/2020 05/17/2021 Overview (11/20/2020): cfDNA Acute dehydration 12/14/2019 10/16/2020 Influenza B 12/14/2019 10/16/2020 Drug-induced constipation 09/22/2018 Overview (09/28/2018): Added automatically from request for surgery [id number] Non-cardiac chest pain 09/17/201810/16 Hypokalemia 09/17/2018 09/19/2018 Hypomagnesemia 09/17/2018 09/19/2018 Leukocytosis 05/07/2018 05/12/2018 Elevated liver enzymes 02/27/201810/16 Intractable nausea and vomiting 02/27/2018 03/01/2018 Intractable cyclical vomiting with nausea 02/27/2018 03/01/2018 Encounters Date Type Department Care Team Description 03/08/2025 Telephone [facility] [address] [place] [address] Aminata Nassar MD Advice Only 02/16/2025 6:42 PM EDT - 02/16/2025 8:43 PM EDT Emergency [facility] [address] [place] [id number] Sandra Caro MD Right lower quadrant pain [...] drink = 0.6 oz pur e alcohol) [facility] Utilities Answer Date Recorded In the past 12 months has e [employer], gas, oil, or water [employer] threatened to shut off services in your [...] Date Recorded Retired Total Score 0 05/07/2021 [facility] [place] of Occupat ional Health - Occupational Stress [...] things needed for daily living? No 12/10/2024 [place] Depression Scale Answer Date Recorded [place] Depression Scale Total 2 12/22/2024 The thought [...] GED or equivalent No 12/10/2024 Preferred Language Namibian 12/10/2024 PHQ-2 Answer Date Recorded Patient Health [...] Description 05/15/2025 1:30 PM EDT Office Visit [facility] [address] [facility] [address] [place] [address] Leah Castillo, PAPER SHEETER [address] [facility] [address] [place] [id number] 06/28/2025 3:45 PM EDT Office Visit [facility] [address] [facility] [address] [place] [id number] Aminata Nassar MD [address] [facility] [address] [place] [id number] Health Maintenance Due Date Last Done Comments [...] 12/08/2018, 12/10/2017 Medical Devices Implanted Type Area Sub Arc Operator Device Identifier Shelf Expiration Date Model / Serial / Lot Stnt Percuflx No Gw 4.8x26 - [id number] Implanted:Qty: 1 on 12/18/2022 by Raulito Lancaster MD at [facility] Stent Right: Urinary Bladder [employer] 08/19/2025 [id number] / / [id number] Procedures Procedure Name Priority Date/Time Associated Diagnosis [...] Laterality Modality Radiographic Isabel ging [facility]G DIAGNOSTIC IMAGING OR DERABLES Final Result * LABS SCANNED (03/27/2025) [facility] LAB BLOOD ORDERABLES Kate l [...] MD 02/16/2025 5:35 PM EDT Workstation ID: [id number] Narrative 02/16/2025 5:[address] ABDOMEN [...] MD 02/16/2025 5:35 PM EDT Workstation ID: [id number] us Sandra Caro MD IMG CT ORDERABLES [...] MD 02/16/2025 4:53 PM EDT Workstation ID: [id number] Narrative 02/16/2025 4:53 PM EDT DATE: February [...] MD 02/16/2025 4:53 PM EDT Workstation ID: [id number] us Sandra Caro MD IMG US ORDERABLES Final Result * US Testicular or Ovarian Vascular Limited (02/16/2025 4:40 PM EDT) Anatomical Region Laterality Modality Testes, Vascular Ultrasound 02/16/2025 4:42 PM EDT Impressions 02/16/2025 4:53 PM EDT 1.2.5 cm right ovarian cyst, likely physiologic. 2.Uterus appears somewhat hypervascular, nonspecific. Electronically Signed: Edil Beckford MD 02/16/2025 4:53 PM EDT Workstation ID: [id number] Narrative 02/16/2025 4:53 PM EDT DATE: February [...] MD 02/16/2025 4:53 PM EDT Workstation ID: [id number] us Sandra Caro MD [facility] US ORDERABLES Final Result * Black Top (02/16/2025 4:06 PM EDT) Extra Tube Hold for add-ons. 02/16/2025 4:15 PM EDT [facility] Comment:Auto resulted. Blood Venipuncture / Unknown 02/16/2025 4:06 PM EDT 02/16/2025 4:13 PM EDT Sandra Caro MD LAB BLOOD ORDER ONLY Fin al Result Performing Organization Address City/[facility]/ZIP Co de Phone Number [facility]
[address] [place] [address], [place] [phone] * TSH Rfx On Abnormal To Free T4 (02/16/2025 4:06 PM EDT) TSH 1.210 0.270 - 4.200 uIU/mL 02/16/2025 4:57 PM EDT [facility] Blood Venipuncture / Unknown 02/16/2025 4:06 PM EDT 02/16/2025 4:13 PM EDT Sandra Caro MD LAB BLOOD ORDERABLES Fin al Result Performing Organization Address [facility]/ZIP Co de Phone Number [facility]
[address] [place] [address], [place] [phone] * Gold Top - SST (02/16/2025 4:06 PM EDT) Extra Tube Hold for add-ons. 02/16/2025 4:15 PM EDT [facility] Comment:Auto resulted. Blood Venipuncture / Unknown 02/16/2025 4:06 PM EDT 02/16/2025 4:13 PM EDT Sandra Caro MD LAB BLOOD ORDER ONLY Fin al Result Performing Organization Address City/[facility]/ZIP Co de Phone Number [facility]
[address] [place] [address], [place] [phone] * Green Top (Gel) (02/16/2025 4:06 PM EDT) Extra Tube Hold for add-ons. 02/16/2025 4:15 PM EDT [facility] Comment:Auto resulted. Blood Venipuncture / Unknown 02/16/2025 4:06 PM EDT 02/16/2025 4:13 PM EDT us Sandra Caro MD LAB BLOOD ORDER ONLY Fin al Result [facility]
[address] [place] [address], * Procalcitonin (02/16/2025 4:06 PM EDT) Procalcitonin 0.02 0.00 - 0.25 ng/mL 02/16/2025 4:57 PM EDT [facility] Blood Venipuncture / Unknown 02/16/2025 4:06 PM EDT 02/16/2025 4:13 PM EDT Narrative [facility] - 02/16/2025 4:57 PM EDT As [...] Day 4 values are available. Refer to http://www.plsbvl-vhi-grhqrlonlk.com Change in PCT <=80% A decrease of [...] MD LAB BLOOD ORDERABLES Fin al Result [facility]
[address] [place] [address], * CBC Auto Differential (02/16/2025 4:06 PM EDT) [facility] WBC 6.26 3.40 - 10.80 10*3/mm3 02/16/2025 4:19 PM EDT [facility] RBC 4.29 3.77 - 5.28 10*6/mm3 02/16/2025 4:19 PM EDT [facility] Hemoglobin 12.2 12.0 - 15.9 g/dL 02/16/2025 4:19 PM EDT [facility] Hematocrit 37.6 34.0 - 46.6 % 02/16/2025 4:19 PM EDT [facility] MCV 87.6 79.0 - 97.0 fL 02/16/2025 4:19 PM EDT [facility] MCH 28.4 26.6 - 33.0 pg 02/16/2025 4:19 PM EDT [facility] MCHC 32.4 31.5 - 35.7 g/dL 02/16/2025 4:19 PM EDT [facility] RDW 13.6 12.3 - 15.4 % 02/16/2025 4:19 PM EDT [facility] RDW-SD 43.8 37.0 - 54.0 fl 02/16/2025 4:19 PM EDT [facility] MPV 9.0 6.0 - 12.0 fL 02/16/2025 4:19 PM EDT [facility] Platelets 285 140 - 450 10*3/mm3 02/16/2025 4:19 PM EDT [facility] Neutrophil % 63.8 42.7 - 76.0 % 02/16/2025 4:19 PM EDT [facility] Lymphocyte % 22.8 19.6 - 45.3 % 02/16/2025 4:19 PM EDT [facility] Monocyte % 8.0 5.0 - 12.0 % 02/16/2025 4:19 PM EDT [facility] Eosinophil % 4.3 0.3 - 6.2 % 02/16/2025 4:19 PM EDT [facility] Basophil % 0.8 0.0 - 1.5 % 02/16/2025 4:19 PM EDT [facility] Immature Grans % 0.3 0.0 - 0.5 % 02/16/2025 4:19 PM EDT [facility] Neutrophils, Absolute 3.99 1.70 - 7.00 10*3/mm3 02/16/2025 4:19 PM EDT [facility] Lymphocytes, Absolute 1.43 0.70 - 3.10 10*3/mm3 02/16/2025 4:19 PM EDT [facility] Monocytes, Absolute 0.50 0.10 - 0.90 10*3/mm3 02/16/2025 4:19 PM EDT [facility] Eosinophils, Absolute 0.27 0.00 - 0.40 10*3/mm3 02/16/2025 4:19 PM EDT [facility] Basophils, Absolute 0.05 0.00 - 0.20 10*3/mm3 02/16/2025 4:19 PM EDT [facility] Immature Grans, Absolute 0.02 0.00 - 0.05 10*3/mm3 02/16/2025 4:19 PM EDT [facility] nRBC 0.0 0.0 - 0.2 /100 WBC 02/16/2025 4:19 PM [facility] Blood Venipuncture / Unknown 02/16/2025 4:06 PM EDT 02/16/2025 4:13 PM EDT Sandra Caro MD LAB BLOOD ORDERABLES Fin al Result Performing Organization Address [facility]/ZIP Co de Phone Number [facility]
[address] [place] [address], [place] [phone] * Lavender Top (02/16/2025 4:06 PM EDT) Extra Tube hold for add-on 02/16/2025 4:15 PM EDT [facility] Comment:Auto resulted Blood Venipuncture / Unknown 02/16/2025 4:06 PM EDT 02/16/2025 4:13 PM EDT Sandra Caro MD LAB BLOOD ORDER ONLY Fin al Result Performing Organization Address [facility] Co de Phone Number [facility]
[address] [place] [address], * Light Blue Top (02/16/2025 4:06 PM EDT) Extra Tube Hold for add-ons. 02/16/2025 4:15 PM EDT [facility] Comment:Auto resulted Blood Venipuncture / Unknown 02/16/2025 4:06 PM EDT 02/16/2025 4:13 PM EDT Sandra Caro MD LAB BLOOD ORDER ONLY Fin al Result Performing Organization Address City/[facility] Co de Phone Number [facility]
[address] [place] [address], [place] [phone] * High Sensitivity Troponin T (02/16/2025 4:06 PM EDT) HS Troponin T <6 <14 ng/L 02/16/2025 5:00 PM EDT [facility] Blood Venipuncture / Unknown 02/16/2025 4:06 PM EDT 02/16/2025 4:13 PM EDT [facility] - 02/16/2025 5:00 PM EDT High [...] MD LAB BLOOD ORDERABLES Fin al Result [facility]
[address] [place] [address], * C-reactive Protein (02/16/2025 4:06 PM EDT) C-Reactive Protein 0.32 0.00 - 0.50 mg/dL 02/16/2025 5:00 PM EDT [facility] Blood Venipuncture / Unknown 02/16/2025 4:06 PM EDT 02/16/2025 4:13 PM EDT Sandra Caro MD LAB BLOOD ORDERABLES Fin al Result [facility]
[address] [place] [address], * hCG, Quantitative, (02/16/2025 4:06 PM EDT) HCG Quantitative <0.10 mIU/mL 02/17/20 5:11 PM EDT [facility] Blood Venipuncture / Unknown 02/16/2025 4:06 PM EDT 02/16/2025 4:13 PM EDT Narrative [facility] - 02/16/2025 5:11 PM EDT HCG [...] MD LAB BLOOD ORDERABLES Fin al Result [facility]
[address] [place] [address], * Phosphorus (02/16/2025 4:06 PM EDT) Phosphorus 2.9 2.5 - 4.5 mg/dL 02/16/2025 5:00 PM EDT [facility] Blood Venipuncture / Unknown 02/16/2025 4:06 PM EDT 02/16/2025 4:13 PM EDT Sandra Caro MD LAB BLOOD ORDERABLES Fin al Result [facility]
[address] [place] [address], * Magnesium (02/16/2025 4:06 PM EDT) Magnesium 2.0 1.6 - 2.6 mg/dL 02/16/2025 5:01 PM EDT [facility] Blood Venipuncture / Unknown 02/16/2025 4:06 PM EDT 02/16/2025 4:13 PM EDT Sandra Caro MD LAB BLOOD ORDERABLES Fin al Result Performing Organization Address City/[facility]/ZIP Co de Phone Number [facility]
[address] [place] [address], * Lipase (02/16/2025 4:06 PM EDT) Lipase 18 13 - 60 U/L 02/16/2025 5:00 PM EDT [facility] Blood Venipuncture / Unknown 02/16/2025 4:06 PM EDT 02/16/2025 4:13 PM EDT Sandra Caro MD LAB BLOOD ORDERABLES Fin al Result Performing Organization Address [facility] de Phone Number [facility]
[address] [place] [address], * Lactic Acid, Plasma (02/16/2025 4:06 PM EDT) Lactate 1.4 0.5 - 2.0 mmol/L 02/16/2025 4:52 PM EDT [facility] Comment:Falsely depressed re sults may occur on samples drawn from patients receiving N-Acetylcysteine (NAC) or Metamizole. Blood Venipuncture / Unknown 02/16/2025 4:06 PM EDT 02/16/2025 4:13 PM EDT Sandra Caro MD LAB BLOOD ORDERABLES Fin al Result Performing Organization Address City/[facility] Co de Phone Number [facility]
[address] [place] [address], [place] [phone] * (ABNORMAL) Comprehensive Metabolic Panel (02/16/2025 4:06 PM EDT) [facility] Glucose 95 65 - 99 mg/dL 02/16/2025 5:04 PM EDT [facility] BUN 7 6 - 20 mg/dL 02/16/2025 5:04 PM EDT [facility] Creatinine 0.61 0.57 - 1.00 mg/dL 02/16/2025 5:04 PM EDT [facility] Sodium 141 136 - 145 mmol/L 02/16/2025 5:04 PM EDT [facility] Potassium 4.3 3.5 - 5.2 mmol/L 02/16/2025 5:04 PM EDT [facility] Comment:Slight hemolysis det ected by analyzer. Result may be falsely elevated. Chloride 107 98 - 107 mmol/L 02/16/2025 5:04 PM EDT [facility] CO2 22.0 22.0 - 29.0 mmol/L 02/16/2025 5:04 PM EDT [facility] Calcium 9.4 8.6 - 10.5 mg/dL 02/16/2025 5:04 PM EDT [facility] Total Protein 7.2 6.0 - 8.5 g/dL 02/16/2025 5:04 PM EDT [facility] Albumin 4.2 3.5 - 5.2 g/dL 02/16/2025 5:04 PM EDT [facility] ALT (SGPT) 14 1 - 33 U/L 02/16/2025 5:04 PM EDT [facility] AST (SGOT) 20 1 - 32 U/L 02/16/2025 5:04 PM T [facility] Comment:Slight hemolysis det ected by analyzer. Result may be falsely elevated. Alkaline Phosphatase 125(H) 39 - 117 U/L 02/16/2025 5:04 PM EDT [facility] Total Bilirubin <0.2 0.0 - 1.2 mg/dL 02/16/2025 5:04 PM EDT [facility] Globulin 3.0 gm/dL 02/16/2025 5:04 PM EDT [facility] Comment:Calculated Result A/G Ratio 1.4 g/dL 02/16/2025 5:04 PM EDT [facility] BUN/Creatinine Ratio 11.5 7.0 - 25.0 02/16/2025 5:04 PM EDT [facility] Anion Gap 12.0 5.0 - 15.0 mmol/L 02/16/2025 5:04 PM EDT [facility] eGFR 122.0 >60.0 mL/min/1.7 3 02/16/2025 5:04 PM EDT [facility] Blood Venipuncture / Unknown 02/16/2025 4:06 PM EDT 02/16/2025 4:13 PM EDT Narrative [facility] - 02/16/2025 5:04 PM EDT GFR [...] MD LAB BLOOD ORDERABLES Fin al Result [facility]
[address] [place] [address], * (ABNORMAL) Urinalysis With Microscopic If Indicated (No Culture) - Urine, Clean Catch (02/16/2025 2:41 PM EDT) Color, UA Yellow Yellow, Straw 02/16/2025 2:51 PM EDT [facility] Appearance, UA Clear Clear 02/16/2025 2:51 PM EDT [facility] pH, UA 6.0 5.0 - 8.0 02/16/2025 2:51 PM EDT [facility] Specific [place], UA 1.026 1.001 - 1.030 02/16/2025 2:51 PM EDT [facility] Glucose, UA Negative Negative 02/16/2025 2:51 PM EDT [facility] Ketones, UA Trace(A) Negative 02/16/2025 2:51 PM EDT [facility] Bilirubin, UA Negative Negative 02/16/2025 2:51 PM EDT [facility] Blood, UA Negative Negative 02/16/2025 2:51 PM EDT [facility] Protein, UA Negative Negative 02/16/2025 2:51 PM EDT [facility] Leuk Esterase, UA Negative Negative 02/16/2025 2:51 PM EDT [facility] Nitrite, UA Negative Negative 02/16/2025 2:51 PM EDT [facility] Urobilinogen, UA 0.2 E.U./dL 0.2 - 1.0 E.U./dL 02/16/2025 2:51 PM EDT [facility] Urine Urine specimen obtained by clean catch procedure / Unknown Collection / Unknown 02/16/2025 2:41 PM EDT 02/16/2025 2:46 PM EDT Narrative [facility] - 02/16/2025 2:51 PM EDT Urine microscopic not indicated. us Sandra Caro MD URINE ORDERABLES Final R esult [facility]
[address] [place] [address], * , Urine - Urine, Clean Catch (02/16/2025 2:41 PM EDT) HCG, Urine QL Negative Negative DISK DIFFUSION 02/16/2025 3:07 PM EDT [facility] Urine Urine specimen obtained by clean catch procedure / Unknown Collection / Unknown 02/16/2025 2:41 PM EDT 02/16/2025 2:46 PM EDT Sandra Caro MD URINE ORDERABLES Final R esult Performing Organization Address [facility] Co de Phone Number [facility]
[address] [place] [address], * Pap IG, HPV-hr (10/18/2020 2:06 PM EST) ThinPrep Vial Tash Jackson MD PATHOLOGY/CYTOLOGY ORDERABLES Fi nal Result Performing Organization Address [facility] Co de Phone Number [facility]
[address] [place] [address], * Hepatitis C Antibody (10/17/2020 2:08 PM EST) Hepatitis C Ab Non-Reacti ve Non-Reacti ve 10/17/2020 7:29 PM EST [facility] Blood Venipuncture / Unknown 10/17/2020 2:08 PM EST 10/17/2020 2:08 PM EST Narrative [facility] - 10/17/2020 7:29 PM EST Results may be falsely decreased if patient taking Biotin. Tash Jackson MD LAB BLOOD ORDERABLES Final Resul t Performing Organization Address City/[facility] Co de Phone Number [facility]
[address] [place] [address], from Last 3 Months or Most Recently Relevant to Health Maintenance Additional Health Concerns Infection Onset Date Last Indicated COVID (History) Comment:Per regional bobbin presser for [employer] 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 The last day before reporting a new confirmed COVID-19 would be 12/08/20. -Alida Banda RN 09/09/2020 12/25/2020 Insurance [facility] Advance Directives * CPR (Attempt to [...] Of Support Discussed With: Patient Care Teams Footwear Production Machine Operator Relationship Specialty Start Date End Date Michaela Sousa APRN [address] [place] [address] [facility] [address] PCP - General Internal Medicine 09/04/24
--- OUTSIDE RECORDS SUMMARY | 2025-05-11 14:33 | XMS_ITS | Referral Summary ---
Author Organization [employer] ([place], [place], [place], [place]) Address [address] [place] [address] Care Team Providers Care Crew Car Driver Name Role Phone Unavailable Primary Care Provider [...] Date Tommie rded Speak language other than Barbadian at home Not on file 10/15/2023 Want [...] Advance Directives For more information, please contact: [phone] * Full Code (Latest Code Status on File) Date Activated Date Inactivated Comments 11/11/2022 7:28 AM 11/11/2022 12:16 PM
--- OUTSIDE RECORDS SUMMARY | 2025-05-11 14:33 | XMS_ITS | Clinical Summary ---
Author Organization [facility] Address [address] [place] [address] Care Team Providers Care Tissue Technologist Name Role Phone Nonstaff, Referring Primary Care Provider [phone] Johnnie Shearer MD Unavailable [phone] Allergies Active Allergy Reactions Criticality Noted Date [...] 40 mg by mouth daily. Active Coenzyme K13-Lfqkrhl E 100-5 mg-unit Capsule Take 400 mg [...] Relation to Subscriber:Self Name:Maia Kovacs Payer ID:[id number] ([facility]) Type:PPO Address: [facility] [id number] [place] [id number] Care Teams Tissue Technologist Relationship Specialty Start Date End Date Nonstaff, MD [place] [address] [place] [address] PCP - General 02/16/23 Johnnie Shearer MD [address] [place], [place] [id number] Gastroenterology 02/16/23
--- OUTSIDE RECORDS SUMMARY | 2025-05-11 14:33 | XMS_ITS | Encounter Summary ---
Author [place] [address] Care Team Providers Care Clinical Trial Head Name Role Phone Radha Ordaz LPN Unavailable Unav ailable Encounter Details Date Type Department Care Team (Late st Contact Info) Description 11/02/2018 Lab Requisition [facility] [place] [address] Wendy Emerson MD [address] [place] [id number] Other specified abnormal findings of blood [...] 19.47 mcg/dL 9 5:29 PM EST PREFERRED [employer] Blood VENOUS BLOOD / Unknown 11/02/2018 9:45 AM EST 11/02/2018 4:09 PM EST Narrative [employer] - 11/02/2018 5:29 PM EST Normal Peak : > 20 ug/dl Wendy Emerson MD CHEMISTRY ORDERABLES Fin al Result Performing Organization Address [facility] de Phone Number [employer] [address] [place] [address] , [place] [address] * CORTISOL 30 MINUTES (11/02/2018 9:15 AM EST) Cortisol 30 Min 17.48 mcg/dL 9 5:35 PM EST [employer] Blood VENOUS BLOOD / Unknown 11/02/2018 9:15 AM EST 11/02/2018 4:09 PM EST Narrative [employer] - 11/02/2018 5:35 PM EST Normal Peak : > 20 ug/dl Wendy Emerson MD CHEMISTRY ORDERABLES Fin al Result Performing Organization Address [facility] Phone Number [facility] [address] [facility] , [place] [address] * CORTISOL BASELINE (11/02/2018 8:40 AM EST) Cortisol Baseline 10.37 mcg/dL 11/02/2018 5:35 PM EST [employer] Blood VENOUS BLOOD / Unknown 11/02/2018 8:40 AM EST 11/02/2018 4:09 PM EST Narrative [employer] - 11/02/2018 5:35 PM EST Ingestion of jose doses of biotin (>5 mg/day) taken within 8 hours of drawing blood sample can interfere with this immunoassay test. Wendy Emerson MD CHEMISTRY ORDERABLES Fin al Result Performing Organization Address [facility] de Phone Number [employer] [facility] [address] [facility] , [place] [address] documented in this encounter Visit Diagnoses Diagnosis Other specified abnormal findings of blood chemistry documented in this encounter Additional Health Concerns Assessment Noted Time PHQ-9 Depression Total Score: 2 10/07/19 19 4:43 PM EST PHQ-2 Depression Total Score: 2 10/07/19 19 4:43 PM EST documented as of this encounter Care Teams Clinical Trial Head Relationship Specialty Start Date End Date Radha Ordaz LPN Gallery Or Museum Curator Licensed Practical Nurse 03/15/20 04/02/20 documented as of this encounter
--- OUTSIDE RECORDS SUMMARY | 2025-05-11 14:33 | XMS_ITS | Encounter Summary ---
Author Organization [employer] ([place], [place], [place], [place]) Address [address] [place] [address] Care Team Providers Care Community Organization Aide Name Role Phone LarsMichaela FERNANDO Primary Care Provider Encounter Details Date Type Department Care Team (Late st Contact Info) Description 03/11/2022 Transcribed Document [facility] Radiology [address] [place] [address] Provider, Sree Dickinson MD Social [...] Date Tommie rded Speak language other than Wolof at home Not on file 10/15/2023 Want [...] Miscellaneous Notes * Cerner Conversion Note - [facility] Historical Provider, - 03/11/2022 5:29 PM EDT [address] [id number] MAIA KOVACS :1990 Visit Time:03/11/2022 What to do next Your Diagnosis Other specified dyspareunia, Other specified dyspareunia Instructions From Your Care Team Vaginal rest until follow up appointment. You have prescriptions to picker / packer at your local pharmacy. Follow-Up Appointments Follow Up with Pavel ADAM MD-OBG When Comments Keep previously scheduled appointment Where: [address] [facility] [address] [place] [address]- [phone] Medications What How Much When Instructions Next [...] balanced diet. ??? Avoid caffeine. ??? Take fhju-lfo-jmfjwsr and prescription medicines only as told by your health care provider. ??? Keep all follow-up visits as told by your health care provider. This is important. Where to find more information ??? [employer]: https://www.acog.org/ ??? [...] provider. Document Revised: 10/30/2020 Document Reviewed: 10/30/2020 [employer] Patient Education ?? 2020 [email or web address] Diagnostic Laparoscopy, Care After This sheet [...] these instructions at home: Medicines ??? Take aubm-vwu-mflnceq and prescription medicines only as told by [...] and water are not available, use hand security systems installer. ? Change your dressing as told by [...] keep your urine pale yellow. ? Take lrqf-hme-uzopaqw or prescription medicines. ? Eat foods that [...] provider. Document Revised: 08/26/2018 Document Reviewed: 03/09/2018 [email or web address] Patient Education ?? 2020 [employer]. General Anesthesia, Adult, Care After This sheet [...] activities are safe for you. ??? Take mied-mmn-fcjwuwm and prescription medicines only as told by [...] Reviewed: 12/26/2020 Else[employer] Patient Education ?? 2020 [email or web address] Emergency Awareness and Preventative Care STROKE [...] Assistance with quitting is available by contacting 2-050-RSBCNOW. This is a free resource providing counseling, [...] range between ( 1.0 and 7.0 ) Latimer #: 0.58 K/uL -- Normal range between ( 0.24 and 0.82 ) Eos #: 0.25 K/uL -- Normal range between ( 0.04 and 0.54 ) Latimer %: 10.2 % -- Normal range between [...] was given the opportunity to ask questions. Patient/Nurse Emergency Name: Patient/Nurse Emergency Signature: Relationship to Patient: Clinician/Hospital Nurse Emergency Signature: Date: documented in this encounter Plan of Treatment Not on file documented as of this encounter Visit Diagnoses Not on filedocumented in this encounter Care Teams Community Organization Aide Relationship Specialty Start Date End Date Michaela Sousa, LEADERSHIP DEVELOPMENT MANAGER [address] [address] PCP - General Nurse Practitioner 11/09/22 11/09/22 documented as of this encounter
--- OUTSIDE RECORDS SUMMARY | 2025-05-11 14:33 | XMS_ITS | Encounter Summary ---
Author Organization [employer] ([place], [place], [place], [place]) Address [address] [place] [address] Care Team Providers Care Crap Shooter Name Role Phone Michaela Sousa APRN Primary Care Provider Encounter Details Date Type Department Care Team (Late st Contact Info) Description 03/11/2022 Transcribed Document [facility] Family Medicine [address] [place] [address] ProviderTeena MD [address] [place] [address] Social History Tobacco Use Types Packs/Day Years [...] Date Tommie rded Speak language other than Azeri at home Not on file 10/15/2023 Want [...] JOVON [place]./Sex: 1990 Female Med Rec #: [id number] Physician: Pavel ADAM MD-OBG Financial #: [id number] Pt. Type: O Room/Bed: [facility] Admit/Disch: 03/11/22 09:42:00 - Institution: [facility] OR PACU Case Times Entry 1 In PACU I 03/11/22 15:00:00 Ready for PACU 03/11/22 16:12:00 Discharge Discharge from PACU 03/11/22 16:12:00 I Last Modified By: Mia Min RN 03/11/22 16:23:07 [facility] OR PACU Case Times Audit 03/11/22 16:23:07 Forest Examiner: CARRIHOWIE Modifier: CARRIEC <+> 1 Ready for PACU Discharge <+> 1 Discharge from PACU I Finalized By: Mia Min RN Document Signatures Signed By: Mia Min RN 03/11/22 16:23 Electronically signed by Chaparrita [facility] Conversion Cur[employer] Developer Cerner at 01/09/2023 10:43 AM CDT documented in this encounter Plan of Treatment Not on file documented as of this encounter Visit Diagnoses Not on filedocumented in this encounter Care Teams Crap Shooter Relationship Specialty Start Date End Date Michaela Sousa APRN [address] [place] [address] PCP - General Nurse Practitioner 11/09/22 11/09/22 documented as of this encounter
--- OUTSIDE RECORDS SUMMARY | 2025-05-11 14:33 | XMS_ITS | Encounter Summary ---
Author Organization [employer] ([place], [place], [place], [place]) Address [address] [place] [address] Care Team Providers Care Script Manager Name Role Phone Michaela Sousa APRN Primary Care Provider Encounter Details Date Type Department Care Team (Late st Contact Info) Description 03/11/2022 Transcribed Document [facility] Family Medicine [address] [place] [address] ProviderTeena MD [address] [place] [address] Social History Tobacco Use Types Packs/Day Years [...] Date Tommie rded Speak language other than Korean at home Not on file 10/15/2023 Want [...] MD-OBG Finalized Date/Time: 03/11/22 15:11:36 Pt. Name: MAIA KOVACS JOVON [place]./Sex: 1990 Female Med Rec #: [id number] Physician: Pavel ADAM MD-OBG Financial #: [id number] Pt. Type: O Room/Bed: Admit/Disch: 03/11/22 09:42:00 - Institution: [facility] PreOp Case Times Entry 1 In Preop 03/11/22 10:38:00 Ready for Holding n/a Room Patient Ready for 03/11/22 12:06:00 Surgery Patient Out of Preop 03/11/22 13:55:00 Patient Out of n/a Holding Room Last Modified By: Enedelia Andre RN 03/11/22 15:11:34 [facility] PreOp Case Times Audit 03/11/22 15:11:34 Block Layer: EVNONE Modifier: [email or web address] <+> 1 Patient Out of Preop <+> 1 Patient Ready for Surgery Finalized By: Enedelia Andre, RN Document Signatures Signed By: Enedelia Andre RN 03/11/22 15:11 Electronically signed by Chaparrita [facility] Conversion Technical Solutions Consultant Cerner at 01/09/2023 10:50 AM CDT documented in this encounter Plan of Treatment Not on file documented as of this encounter Visit Diagnoses Not on filedocumented in this encounter Care Teams Script Manager Relationship Specialty Start Date End Date Sousa, Michaela, ADVERTISING AGENCY MANAGER [address] [phone] PCP - General Nurse Practitioner 11/09/22 11/09/22 documented as of this encounter
--- OUTSIDE RECORDS SUMMARY | 2025-05-11 14:33 | XMS_ITS | Encounter Summary ---
Author Organization [employer] ([place], [place], [place], [place]) Address [address] [place] [address] Care Team Providers Care Acid Conditioning Worker Name Role Phone Michaela Sousa APRN Primary Care Provider Encounter Details Date Type Department Care Team (Late st Contact Info) Description 03/10/2022 Transcribed Document [facility] [place] [address] [place] [address] ProviderTeena MD [address] [place] [address] Social History Tobacco Use Types Packs/Day Years [...] Date Tommie rded Speak language other than Turkish at home Not on file 10/15/2023 Want [...] 1 Health Plan: ANTHEM HMOPPO Policy Number: [id number] Authorization Number: [id number] Insurance Primary Name : ANDRES ROBERSONOPPO [id number] Authorization Status-Primary : Opo status approv Authorized Service Begin Date-Primary : 03/11/2022 EDT Observation Authorization Nbr-Primary : [id number] Authorization Comments-Primary : ANTHEM HMOPPO approved per letter for outpt Historical Authorization Comments-Primary : No Authorization Comments Found MELISSA MAURO RN-Utilization Review - 03/10/2022 11:32 EDT documented in this encounter Plan of Treatment Not on file documented as of this encounter Visit Diagnoses Not on filedocumented in this encounter Care Teams Acid Conditioning Worker Relationship Specialty Start Date End Date Michaela Sousa, FUSING FURNACE LOADER [address] [place] [address] PCP - General Nurse Practitioner 11/09/22 11/09/22 documented as of this encounter
--- OUTSIDE RECORDS SUMMARY | 2025-05-11 14:33 | XMS_ITS | CCD ---
Author Name Interface, [id number] Address [address] [place] [address] Organization [facility] Address [address] [place] [address] Care Team Providers Care Tank Operator Name Role Phone Sukhjinder KAISER, Jens Purvis Unavailable Unavailable Reason for Visit FIRER RETORT IRON DEFICIENCY Medications Date Name Route Dose [...]
--- OUTSIDE RECORDS SUMMARY | 2025-05-11 14:33 | XMS_ITS | Encounter Summary ---
Author Organization [place] [address] Care Team Providers Care Outside Maintenance Worker Name Role Phone Radha Ordaz LPN Unavailable Unav ailable Encounter Details Date Type Department Care Team (Late st Contact Info) Description 11/02/2018 Lab Requisition [facility] [place] [address] Wendy Emerson MD [address] [place] [phone] Other specified abnormal findings of blood [...] HORMONE -REF LAB (11/02/2018 8:40 AM EST) [facility] ACTH 21 6 - 58 pg/mL 11/04/2018 2:20 PM EST [employer] Comment: INTERPRETIVE INFORMATION: Adrenocorticotropic Hormone Some types of synthetic ACTH are not detected by this assay. Access complete set of age- and/or gender-specific reference intervals for this test in the [facility] Test Directory ([employer]). Performed by [facility], [address] [place] [id number] [email or web address], Robert Restrepo MD, Lab. Director Blood VENOUS BLOOD / Unknown 11/02/2018 8:40 AM EST 11/02/2018 2:17 PM EST us Wendy Emerson MD CHEMISTRY ORDERABLES Fin al Result [facility] [address] [place] [address] documented in this encounter Visit Diagnoses Diagnosis Other specified abnormal findings of blood chemistry documented in this encounter Additional Health Concerns Assessment Noted Time PHQ-9 Depression Total Score: 2 10/07/19 19 4:43 PM EST PHQ-2 Depression Total Score: 2 10/07/19 19 4:43 PM EST documented as of this encounter Care Teams Outside Maintenance Worker Relationship Specialty Start Date End Date Radha Ordaz LPN Space Systems Operations Superintendent Licensed Practical Nurse 03/15/20 04/02/20 documented as of this encounter
[2025-05-11 14:34] LABS: COC Drug Screen Collection Only
== END ==
LOC: LAB 14:29

== ENCOUNTER 2025-05-18 10:49 | Emergency (ER) | payer OTHER, SELFPAY ==
--- OUTSIDE RECORDS SUMMARY | 2025-01-02 11:15 | XMS_ITS ---
Author Organization [facility] Address [address] [facility] [address] [place] [address] Care Team Providers Care Rivet Heater Name Role Phone Chelita Jackson Unavailable [phone] Seda Sutton Unavailable [phone] REASON FOR VISIT 2 WK INCISION CHECK Social History Sex Assigned At : Social History Observation Description Sex Assigned At Female Encounters Encounter Location Date Provider Diagnosis [facility] [address] [facility] [address] [place] [address] 01/02/2025 Seda Sutton Plan Of Treatment No Information Progress Notes * Maia KOVACSDOB:[birth year] (35 yo F)Acc No.[id number]:01/02/2025 Progress Note Patient: Dylan margret Maia Zhao Provider: Tomeka Sutton MD :1990 A ge:34 Y S ex:Female Date:01/02/2025 Address:[address] [place] [address] [place] [facility] Subjective: * Chief Complaints: * 2 WK INCISION CHECK * Electronic signature of Maureen Sutton MD on 05/18/2025 at 11:00 AM EDT Sign off status: Pending Visit Status: C ANC-PD (Cancelled Patient Delivered) * Provider: Tomeka Sutton MD Date: 0 01/02/2025 Generated for Printi ng/Faxing/eTransmitting on: 0 05/18/2025 11:00 AM EDT
--- OUTSIDE RECORDS SUMMARY | 2025-01-30 11:15 | XMS_ITS ---
Author Organization [facility] Address [address] [facility] [address] [place] [address] Care Team Providers Care Vacuum Conditioner Operator Name Role Phone Chelita Jackson Unavailable [phone] Rafael Suttonah Unavailable [phone] REASON FOR VISIT 6 WK PP Social History Sex Assigned At : Social History Observation Description Sex Assigned At Female Encounters Encounter Location Date Provider Diagnosis [facility] [address] [facility] [address] [place] [address] 01/30/2025 Seda Sutton Plan Of Treatment No Information Progress Notes * Maia KOVACSDOB:[birth year] (35 yo F)Acc No.[id number]:01/30/2025 Progress Note Patient: Dylan kathrynshirley Maia Zhao Provider: Tomeka Sutton MD :1990 A ge:34 Y S ex:Female Date:01/30/2025 Address:[address] [place], [place] [address] Subjective: * Chief Complaints: * 6 WK PP * Electronic signature of Maureen Sutton MD on 05/18/2025 at 11:01 AM EDT Sign off status: Pending Visit Status: C ANC-PD (Cancelled Patient Delivered) * Provider: Tomeka Sutton MD Date: 0 01/30/2025 Generated for Printi ng/Faxing/eTransmitting on: 0 05/18/2025 11:01 AM EDT
--- OUTSIDE RECORDS SUMMARY | 2025-05-15 13:30 | XMS_ITS | Encounter Summary ---
Author Organization [facility] Address [address] [place] [address] Care Team Providers Care Head Porter Baggage Name Role Phone Michaela Sousa APRN Primary Care Provider + [phone] Reason for Referral * Diagnostic Medical (Routine) - Authorized Specialty Diagnoses / Procedures Referred By Contact Referred To Contact Gastroenterology Diagnoses Change in bowel habits Procedures [place] OFFICE/OUTPATIENT NEW MODERATE MDM 45 MINUTES Leah Castillo APRN [address] [place] [address] Phone: tel: fax: [facility] GASTR[facility] [address] [place] [phone] Phone: tel: fax: Referral ID Status Reason Start Date Expiration Date Visits Requested Visits Authorized [id number] Authorized Specialty Services Required 05/15/2025 08/14/2026 1 1 Reason for Visit * Reason Comments Vomiting Throwing up for 3 mo (throwing up blood for 1 mo)Believes possible ulcerMass on thyroid- mother thyroid cancerConstant burning Abdominal Pain Since 02/16 ED visitN bill in chart Constipation Anemia Bruising and Dizzine ss Encounter Details Date Type Department Care Team (Late st Contact Info) Description 05/15/2025 1:30 PM EDT Office Visit [facility] [address] [facility] [address] [place] [address] Leah Castillo, FHA UNDERWRITER [address] [place] [facility] [address] [place] [id number] Hematemesis with nausea (Primary Dx); Change in bowel habits; Epigastric pain; Melena; Constipation, unspecified constipation type Social History Tobacco Use Types Packs/Day Years Used Date Smoking Tobacco: Never Passive Smoke Exposure: Never Smokeless Tobacco: Never Tobacco Cessation:Counseling Given: Not Answered Alcohol Use Standard Drinks/Week Comments No 0 (1 standard drink = 0.6 oz pur e alcohol) [facility] Utilities Answer Date Recorded In the past 12 months has [employer] electric, gas, oil, or water company threatened to shut off services in your [...] Date Recorded Retired Total Score 0 05/07/2021 [facility] of Occupat ional Health - Occupational Stress [...] things needed for daily living? No 12/10/2024 [place] Depression Scale Answer Date Recorded [place] Depression Scale Total 2 12/22/2024 The thought [...] GED or equivalent No 12/10/2024 Preferred Language Wolof 12/10/2024 PHQ-2 Answer Date Recorded Patient Health [...] Not at all 05/15/2025 1:12 PM EDT Mycalisont, Generic * Trouble concentrating on things, such as reading the newspaper or watching television Answer Date of Assessment Author Several days 05/15/2025 1:12 PM EDT Charlest, Generic * Moving or speaking so slowly [...] 1:12 PM EDT Charles bowser, Generic * [place] Suicide Severity Rating Scale (Screener/Recent Self-Report) Question [...] Liver - Underwent and tubal ligation at [facility]. - Two CT scans showed mild and moderate liver enlargement, respectively. 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 Patient or patient door to door sales representative verbalized consent for the use of Ambient Listening during the visit with Leah Castillo APRN for chart documentation. 05/16/2025 Leah Castillo APRN [facility] Gastroenterology documented in this encounter Plan of Treatment Upcoming Encounters Date Type Department Care Team (Late st Contact Info) Description 06/28/2025 3:45 PM EDT Office Visit [facility] [address] [facility] [address] [place] [phone] Aminata Nassar MD [address] [facility] [address] [place] [address] Scheduled Referrals Name Type Priority Associated Diagnoses [...] Indicated Resolved Time COVID (History) Comment:Per regional production support developer for [facility], 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 The last day before reporting a new confirmed COVID-19 would be 12/08/20. -Alida Banda RN 09/09/2020 12/25/2020 documented as of this encounter Care Teams Head Porter Baggage Relationship Specialty Start Date End Date Michaela Sousa APRN [address] [place] [address] [facility] [id number] PCP - General Internal Medicine 09/04/24 documented as of this encounter
--- OUTSIDE RECORDS SUMMARY | 2025-05-15 18:23 | XMS_ITS | Encounter Summary ---
Author Organization [facility] Address [address] [place] [address] Care Team Providers Care Subscription Clerk Name Role Phone Michaela Sousa APRN Primary Care Provider + [phone] Reason for Visit * Reason Comments Vomiting Blood Encounter Details Date Type Department Care Team (Late st Contact Info) Description 05/15/2025 6:23 PM EDT - 05/15/2025 10:34 PM EDT Emergency [facility] EMERGENCY DEPARTMENT [address] [place] [id number] Selene Lizarraga MD [address] [facility] [place] [address] Acute abdominal pain (Primary Dx); History of peptic ulcer disease; Nausea and vomiting in adult Discharge Disposition: Home or Self Care Social History Tobacco Use Types Packs/Day Years Used Date Smoking Tobacco: Never Passive Smoke Exposure: Never Smokeless Tobacco: Never Alcohol Use Standard Drinks/Week Comments No 0 (1 standard drink = 0.6 oz pur e alcohol) [facility] Utilities Answer Date Recorded In the past 12 months has [employer], gas, oil, or water company threatened to [...] Score 0 05/07/2021 [facility] - Occupational [...] things needed for daily living? No 12/10/2024 [place] Depression Scale Answer Date Recorded [place] Depression Scale Total 2 12/22/2024 The thought [...] GED or equivalent No 12/10/2024 Preferred Language Slovenian 12/10/2024 PHQ-2 Answer Date Recorded Patient Health [...] Author Somewhat difficult 05/15/2025 1:12 PM EDT Mychar mague, Generic * [place] Suicide Severity Rating Scale (Screener/Recent Self-Report) Question [...] through Care Everywhere. * Abdominal Pain Adult (Slovenian) documented in this encounter Medications at Time of Discharge Co-Enzyme Q10 100 MG capsule Take 4 capsules by mouth. docusate sodium 100 MG capsule Take 1 capsule by mouth 2 (Two) Times a Day As Needed for Constipation. 60 capsule 1 12/13/2024 10:53 AM EDT 12/13/2024 pantoprazole (PROTONIX) 40 MG EC tabletIndications :Hyperemesis gravidarum Take 1 tablet by mouth 2 (Two) Times a Day. 180 tablet 3 08/03/2024 polyethylene glycol (MIRALAX) 17 g packet Take 17 g by mouth Daily. 100 each 02/16/2025 cyclobenzaprine (FLEXERIL) 10 MG tablet Take 1 tablet by mouth 3 times a day. 02/22/2025 simethicone (MYLICON) 80 MG chewable tablet Chew 1 tablet 4 (Four) Times a Day As Needed for Flatulence. 30 tablet 12/13/2024 12:41 PM EDT 12/13/2024 sodium phosphate (FLEET) 7-19 GM/118ML ADULT enema Insert 1 enema into the rectum Every 6 (Six) Hours As Needed (constipation) . 4 each 02/16/2025 documented as of this encounter ED Notes [...] History: Diagnosis Date Abdominal pain Adrenal insufficiency (Hitchcock's disease) Anemia Cancer Nodule found on thyroid still in work up Cholelithiasis Lap ignacia 2009 Elevated liver enzymes 02/27/2018 Gastric ulcer 2020 [...] Procedure: ESOPHAGOGASTRODUODENOSCOPY; Surgeon: Jens Morales MD; Location: [facility] END[facility]; Service: Gastroenterology; Laterality: N/A; FULGURATION ENDOMETRIOSIS [...] Description 06/28/2025 3:45 PM EDT Office Visit [facility] [address] [place] [id number] Aminata Nassar MD [address] [place] [address] documented as of this encounter Procedures Procedure [...] EDT RESPIRATORY PANEL PCR W/ COVID-19 (SARS-COV-2), POPULATION GENETICIST SWAB IN UTM/VTP, 2 HR TAT STAT [...] MD 05/15/2025 9:38 PM EDT Workstation ID: [id number] Narrative 05/15/2025 9:[address] ABDOMEN [...] MD 05/15/2025 9:38 PM EDT Workstation ID: [id number] Selene Lizarraga MD IMG CT ORDERABLES Final R esult * Type & Screen (05/15/2025 7:22 PM EDT) ABO Type O 05/15/2025 8:09 PM EDT [facility] RH type Positive 05/15/2025 8:09 PM EDT [facility] Antibody Screen Negative 05/15/2025 8:09 PM EDT [facility] T&S Expiration Date 05/18/2025 11:59:59 PM 05/15/2025 8:09 PM EDT [facility] Blood Venipuncture / Unknown 05/15/2025 7:22 PM EDT 05/15/2025 7:31 PM EDT Selene Lizarraga MD BLOOD BANK TEST ORDERABLE S Edited Result - Final [facility]
[address] [place] [address], * hCG, Quantitative, (05/15/2025 7:17 PM EDT) HCG Quantitative <1.00 mIU/mL 05/15/20 7:43 PM EDT [facility] Blood Venipuncture / Unknown 05/15/2025 7:17 PM EDT 05/15/2025 7:24 PM EDT Narrative [facility] - 05/15/2025 7:43 PM EDT [...] MD LAB BLOOD ORDERABLES Kate l Result [facility]
[address] [place] [address], * Ethanol (05/15/2025 7:17 PM EDT) Ethanol <10 0 - 10 mg/dL 05/15/2025 7:45 PM EDT [facility] Blood Venipuncture / Unknown 05/15/2025 7:17 PM EDT 05/15/2025 7:24 PM EDT Narrative [facility] - 05/15/2025 7:45 PM EDT Not for legal purposes. Selene Lizarraga MD LAB BLOOD ORDERABLES Kate l Result [facility]
[address] [place] [address], [place] [phone] * Black Top (05/15/2025 7:17 PM EDT) Extra Tube Hold for add-ons. 05/15/2025 7:31 PM EDT [facility] Comment:Auto resulted. Blood Venipuncture / Unknown 05/15/2025 7:17 PM EDT 05/15/2025 7:24 PM EDT Selene Lizarraga MD LAB BLOOD ORDER ONLY Kate l Result Performing Organization Address City/[facility]/ZIP Co de Phone Number [facility]
[address] [place] [address], [place] [phone] * Gold Top - SST (05/15/2025 7:17 PM EDT) Extra Tube Hold for add-ons. 05/15/2025 7:31 PM EDT [facility] Comment:Auto resulted. Blood Venipuncture / Unknown 05/15/2025 7:17 PM EDT 05/15/2025 7:24 PM EDT Selene Lizarraga MD LAB BLOOD ORDER ONLY Kate l Result Performing Organization Address [facility]/[place]UST Co de Phone Number [facility]
[address] [place] [address], [place] [phone] * Green Top (Gel) (05/15/2025 7:17 PM EDT) Extra Tube Hold for add-ons. 05/15/2025 7:31 PM EDT [facility] Comment:Auto resulted. Blood Venipuncture / Unknown 05/15/2025 7:17 PM EDT 05/15/2025 7:24 PM EDT Selene Lizarraga MD LAB BLOOD ORDER ONLY Kate l Result Performing Organization Address City/[facility]/ZIP Co de Phone Number [facility]
[address] [place] [address], [place] [phone] * (ABNORMAL) Comprehensive Metabolic Panel (05/15/2025 7:17 PM EDT) Glucose 107(H) 65 - 99 mg/dL 05/15/2025 7:45 [facility] BUN 6.8 6.0 - 20.0 mg/dL 05/15/2025 7:45 PM [facility] Creatinine 0.74 0.57 - 1.00 mg/dL 05/15/2025 7:45 PM [facility] Sodium 139 136 - 145 mmol/L 05/15/2025 7:45 PM [facility] Potassium 3.4(L) 3.5 - 5.2 mmol/L 05/15/2025 7:45 PM T [facility] Chloride 106 98 - 107 mmol/L 05/15/2025 7:45 PM [facility] CO2 24.1 22.0 - 29.0 mmol/L 05/15/2025 7:45 PM [facility] Calcium 8.9 8.6 - 10.5 mg/dL 05/15/2025 7:45 PM [facility] Total Protein 7.3 6.0 - 8.5 g/dL 05/15/2025 7:45 PM [facility] Albumin 4.7 3.5 - 5.2 g/dL 05/15/2025 7:45 PM [facility] ALT (SGPT) 14 1 - 33 U/L 05/15/2025 7:45 PM [facility] AST (SGOT) 22 1 - 32 U/L 05/15/2025 7:45 PM [facility] Alkaline Phosphatase 95 39 - 117 U/L 05/15/2025 7:45 PM [facility] Total Bilirubin 0.4 0.0 - 1.2 mg/dL 05/15/2025 7:45 PM [facility] Globulin 2.6 gm/dL 05/15/2025 7:45 PM [facility] Comment:Calculated Result A/G Ratio 1.8 g/dL 05/15/2025 7:45 PM [facility] BUN/Creatinine Ratio 9.2 7.0 - 25.0 05/15/2025 7:45 PM EDT [facility] Anion Gap 8.9 5.0 - 15.0 mmol/L 05/15/2025 7:45 PM EDT [facility] eGFR 109.7 >60.0 mL/min/1.7 3 05/15/2025 7:45 PM EDT [facility] Blood Venipuncture / Unknown 05/15/2025 7:17 PM EDT 05/15/2025 7:24 PM EDT [facility] - 05/15/2025 7:45 PM EDT [...] not include race as a factor us Selene Lizarraga MD LAB BLOOD ORDERABLES Kate l Result [facility]
[address] [place] [address], * (ABNORMAL) CBC Auto Differential (05/15/2025 6:52 PM EDT) WBC 7.13 3.40 - 10.80 10*3/mm3 05/15/2025 6:57 PM EDT [facility] RBC 4.03 3.77 - 5.28 10*6/mm3 05/15/2025 6:57 PM EDT [facility] Hemoglobin 11.7(L) 12.0 - 15.9 g/dL 05/15/2025 6:57 PM EDT [facility] Hematocrit 35.5 34.0 - 46.6 % 05/15/2025 6:57 PM EDT [facility] MCV 88.1 79.0 - 97.0 fL 05/15/2025 6:57 PM EDT [facility] MCH 29.0 26.6 - 33.0 pg 05/15/2025 6:57 PM EDT [facility] MCHC 33.0 31.5 - 35.7 g/dL 05/15/2025 6:57 PM EDT [facility] RDW 13.5 12.3 - 15.4 % 05/15/2025 6:57 PM EDT [facility] RDW-SD 43.9 37.0 - 54.0 fl 05/15/2025 6:57 PM EDT [facility] MPV 9.4 6.0 - 12.0 fL 05/15/2025 6:57 PM EDT [facility] Platelets 264 140 - 450 10*3/mm3 05/15/2025 6:57 PM EDT [facility] Neutrophil % 68.2 42.7 - 76.0 % 05/15/2025 6:57 PM EDT [facility] Lymphocyte % 21.0 19.6 - 45.3 % 05/15/2025 6:57 PM EDT [facility] Monocyte % 7.0 5.0 - 12.0 % 05/15/2025 6:57 PM EDT [facility] Eosinophil % 2.7 0.3 - 6.2 % 05/15/2025 6:57 PM EDT [facility] Basophil % 0.7 0.0 - 1.5 % 05/15/2025 6:57 PM EDT [facility] Immature Grans % 0.4 0.0 - 0.5 % 05/15/2025 6:57 PM EDT [facility] Neutrophils, Absolute 4.86 1.70 - 7.00 10*3/mm3 05/15/2025 6:57 PM EDT [facility] Lymphocytes, Absolute 1.50 0.70 - 3.10 10*3/mm3 05/15/2025 6:57 PM EDT [facility] Monocytes, Absolute 0.50 0.10 - 0.90 10*3/mm3 05/15/2025 6:57 PM EDT [facility] Eosinophils, Absolute 0.19 0.00 - 0.40 10*3/mm3 05/15/2025 6:57 PM EDT [facility] Basophils, Absolute 0.05 0.00 - 0.20 10*3/mm3 05/15/2025 6:57 PM EDT [facility] Immature Grans, Absolute 0.03 0.00 - 0.05 10*3/mm3 05/15/2025 6:57 PM EDT [facility] nRBC 0.0 0.0 - 0.2 /100 WBC 05/15/2025 6:57 PM EDT [facility] Blood Line / Unknown 05/15/2025 6: 52 PM EDT 05/15/2025 6:52 PM EDT Selene Lizarraga MD LAB BLOOD ORDERABLES Kate l Result [facility]
[address] [place] [address], [place] [phone] * Light Blue Top (05/15/2025 6:52 PM EDT) Extra Tube Hold for add-ons. 05/15/2025 7:01 PM EDT [facility] Comment:Auto resulted Blood Line / Unknown 05/15/2025 6: 52 PM EDT 05/15/2025 6:52 PM EDT Selene Lizarraga MD LAB BLOOD ORDER ONLY Kate l Result [facility]
[address] [place] [address], [place] [phone] * Lavender Top (05/15/2025 6:52 PM EDT) Extra Tube hold for add-on 05/15/2025 7:01 PM EDT [facility] Comment:Auto resulted Blood Line / Unknown 05/15/2025 6: 52 PM EDT 05/15/2025 6:52 PM EDT Selene Lizarraga MD LAB BLOOD ORDER ONLY Kate l Result Performing Organization Address City/[facility]/ZIP Co de Phone Number [facility]
[address] [place] [address], * Telemetry Scan (05/15/2025 6:40 PM EDT) [facility] Onbase ECG ORDERABLES Final Result * POC Urine (05/15/2025 6:11 PM EDT) HCG, Urine, QL Negative [facility] Lot Number [id number] [facility] Internal Positive Control Passed [facility] Internal Negative Control Passed [facility] Expiration Date 2026-09-13 [facility] Urine 05/15/2025 6:11 PM EDT Selene Lizarraga MD POINT OF CARE TEST ORDERA BLES Final Result Performing Organization Address City/[facility]/ZIP Co de Phone Number [facility]
[address] [phone], * Fentanyl, Urine - Urine, Clean Catch (05/15/2025 6:03 PM EDT) Fentanyl, Urine Negative Negative 05/15/2025 7:17 PM EDT [facility] Urine Urine specimen obtained by clean catch procedure / Unknown Collection / Unknown 05/15/2025 6:03 PM EDT 05/15/2025 6:25 PM EDT Narrative [facility] - 05/15/2025 7:17 PM EDT [...] Lizarraga MD URINE ORDERABLES Final Re sult [facility]
[address] [place] [address], * Urine Drug Screen - Urine, Clean Catch (05/15/2025 6:03 PM EDT) THC, Screen, Urine Negative Negative 2024 6:37 PM EDT [facility] Phencyclidine (PCP), Urine Negative Negative 05/15/2025 6:37 PM EDT [facility] Cocaine Screen, Urine Negative Negative 05/15/2025 6:37 PM EDT [facility] Methamphetamine, Ur Negative Negative 05/15 6:37 PM EDT [facility] Opiate Screen Negative Negative 05/15/2025 6:37 PM EDT [facility] Amphetamine Screen, Urine Negative Negative 05/15/2025 6:37 PM EDT [facility] Benzodiazepine Screen, Urine Negative Negative 05/15/2025 6:37 PM EDT [facility] Tricyclic Antidepressants Screen Negative Negative 05/15/2025 6:37 PM EDT [facility] Methadone Screen, Urine Negative Negative 05/15/2025 6:37 PM EDT [facility] Barbiturates Screen, Urine Negative Negative 05/15/2025 6:37 PM EDT [facility] Oxycodone Screen, Urine Negative Negative 05/15/2025 6:37 PM EDT [facility] Buprenorphine, Screen, Urine Negative Negative 05/15/2025 6:37 PM EDT [facility] Urine Urine specimen obtained by clean catch procedure / Unknown Collection / Unknown 05/15/2025 6:03 PM EDT 05/15/2025 6:25 PM EDT Narrative [facility] - 05/15/2025 6:37 PM EDT [...] test, particularly when unconfirmed results are used. [facility] Toñito Lizarraga MD URINE ORDERABLES Final Re sult [facility]
[address] [place] [address], * (ABNORMAL) Respiratory Panel PCR w/COVID-19(SARS-CoV-2) JESSICA/ANALIA/[place]FRICA/PAD/COR/MONICA In-House, POPULATION GENETICIST Swab in UTM/VTM, 2 HR TAT - Swab, Nasopharynx (05/15/2025 6:02 PM EDT) ADENOVIRUS, PCR Not Detected Not Detected BIOFIRE TORCH 05/15/2025 7:22 PM EDT [facility] Coronavirus 229E Not Detected Not Detected BIOFIRE TOR 05/15/2025 7:22 PM EDT [facility] Coronavirus HKU1 Not Detected Not Detected BIOFIRE TORCH 05/15/2025 7:22 PM EDT [facility] Coronavirus NL63 Not Detected Not Detected BIOFIRE TORCH 05/15/2025 7:22 PM EDT [facility] Coronavirus OC43 Not Detected Not Detected BIOFIRE TOR 05/15/2025 7:22 PM EDT [facility] COVID19 Not Detected Not Detected - Ref. Range BIOFIRE TOR 05/15/2025 7:22 PM EDT [facility] Human Metapneumovirus Not Detected Not Detected BIOFIRE TOR 05/15/2025 7:22 PM EDT [facility] Human Rhinovirus/Enterov irus Detected(A) Not Detected BIOFIRE TOR 05/15/2025 7:22 PM EDT [facility] Influenza A PCR Not Detected Not Detected BIOFIRE [facility] 05/15/2025 7:22 PM EDT [facility] Influenza B PCR Not Detected Not Detected BIOFIRE [facility] 05/15/2025 7:22 PM EDT [facility] Parainfluenza Virus 1 Not Detected Not Detected BIOFIRE [facility] 05/15/2025 7:22 PM EDT [facility] Parainfluenza Virus 2 Not Detected Not Detected BIOFIRE [facility] 05/15/2025 7:22 PM EDT [facility] Parainfluenza Virus 3 Not Detected Not Detected BIOFIRE [facility] 05/15/2025 7:22 PM EDT [facility] Parainfluenza Virus 4 Not Detected Not Detected BIOFIRE [facility] 05/15/2025 7:22 PM EDT [facility] RSV, PCR Not Detected Not Detected BIOFIRE [facility] 05/15/2025 7:22 PM EDT [facility] Bordetella pertussis pcr Not Detected Not Detected BIOFIRE TOR 05/15/2025 7:22 PM EDT [facility] Bordetella parapertussis PCR Not Detected Not Detected BIOFIRE TOR 05/15/2025 7:22 PM EDT [facility] Chlamydophila pneumoniae PCR Not Detected Not Detected BIOFIRE TOR 05/15/2025 7:22 PM EDT [facility] Mycoplasma pneumo by PCR Not Detected Not Detected BIOFIRE [facility] 05/15/2025 7:[facility] Swab Nasopharyngeal structure / Unknown Collection / Unknown 05/15/2025 6:02 PM EDT 05/15/2025 6:23 PM EDT Narrative [facility] - 05/15/2025 7:22 PM EDT [...] antibiotic de-escalation to target atypical bacterial infection. us Selene Lizarraga MD MICROBIOLOGY - GENERAL OR DERABLES Final Result [facility]
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 The last day before reporting a new confirmed COVID-19 would be 12/08/20. -Alida Banda RN 09/09/2020 12/25/2020 COVID Screen (preop/placement) 05/15/2025 05/15/2025 05/15/2025 7:22 PM EDT Rhinovirus 05/15/2025 05/15/2025 documented as of this encounter Care Teams Subscription Clerk Relationship Specialty Start Date End Date Michaela Sousa APRN [address] [address] [place] [id number] PCP - General Internal Medicine 09/04/24 documented as of this encounter
--- OUTSIDE RECORDS SUMMARY | 2025-05-17 06:38 | XMS_ITS | Encounter Summary ---
Author Organization [facility] Address [address] [place] [address] Care Team Providers Care Motion Picture Equipment Supervisor Name Role Phone Lars Michaela KING Primary Care Provider + [phone] Reason for Visit * Auth/Cert Specialty Diagnoses / Procedures Referred By Velia t Referred To Contact Diagnoses Hematemesis, unspecified whether nausea present Hematemesis, unspecified whether nausea present [K92.0] Procedures AR ESOPHAGOGASTRODUODENOSCOPY TRANSORAL DIAGNOSTIC ESOPHAGOGASTRODUODENOSCOPY Referral ID Status Reason Start Date Expiration Date Visits Re quested Visits Authorized [id number] 1 1 Encounter Details Date Type Department Care Team (Late st Contact Info) Description 05/17/2025 6:38 AM EDT - 05/17/2025 9:25 AM EDT Hospital Encounter [facility] ENDO SUITES [address] [place] [phone] Aminata Nassar MD 1720 [facility] [address] [place] [address] Hematemesis, unspecified whether nausea present Discharge Disposition: Home or Self Care Social History Tobacco Use Types Packs/Day Years Used Date Smoking Tobacco: Never Passive Smoke Exposure: Never Smokeless Tobacco: Never Alcohol Use Standard Drinks/Week Comments No 0 (1 standard drink = 0.6 oz pur e alcohol) [facility] Utilities Answer Date Recorded In the past 12 months has [employer] electric, gas, oil, or water company threatened [...] Date Recorded Retired Total Score 0 05/07/2021 [facility] Occupat ional Health - Occupational [...] things needed for daily living? No 12/10/2024 [place] Depression Scale Answer Date Recorded [place] Depression Scale Total 2 12/22/2024 The [...] GED or equivalent No 12/10/2024 Preferred Language Ghanaian 12/10/2024 PHQ-2 Answer Date Recorded Patient Health [...] 7:21 AM EDT Vicki Harrington RN * [place] Suicide Severity Rating Scale (Screener/Recent Self-Report) Question Answer Date of Assessment Author 6. Suicidal Behavior (Lifetime) No 7:21 AM EDT Vicki Martell RN documented as of this encounter Discharge Instructions * Attachments The following attachments cannot be sent through Care Everywhere. * General Anesthesia Adult Care After (Ghanaian) * Upper Endoscopy Adult Care After (Ghanaian) documented in this encounter Medications at Time of Discharge Co-Enzyme Q10 100 MG capsule Take 4 capsules by mouth. docusate sodium 100 MG capsule Take 1 capsule by mouth 2 (Two) Times a Day As Needed for Constipation. 60 capsule 1 12/13/2024 10:53 AM EDT 12/13/2024 gabapentin (NEURONTIN) 300 MG capsule Take 1 capsule by mouth 2 (Two) Times a Day. pantoprazole (PROTONIX) 40 MG EC tabletIndications :Hyperemesis [...] each 02/16/2025 documented as of this encounter H&P Notes [...] - Underwent and tubal ligation at [facility]. - Two CT scans showed mild and moderate liver enlargement, respectively. 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 - Under [facility] care for mitochondrial disorder, discharged in [...] HISTORY - and tubal ligation at [facility] - Gallbladder removal in 2009 - [...] opinion of the practitioner. Patient or patient human resources representative verbalized consent for the use of Ambient Listening during the visit with Leah Castillo APRN for chart documentation. 05/16/2025 Leah Castillo APRN [facility] [place] documented in this encounter Nursing Notes [...] Description 06/28/2025 3:45 PM EDT Office Visit [facility] GASTR[facility]OLOG[facility] [address] [phone] Aminata Nassar MD [address] [address] Pending Results Name Type Priority Associated Diagnoses Date /Time Tissue Pathology Exam Pathology and Cytology Routine Hematemesis, unspecified whether nausea present 05/17/2025 8:15 AM EDT Scheduled Orders Name Type Priority Associated Diagnoses Orde r Schedule Tissue Pathology Exam Pathology and Cytology Routine Hematemesis, unspecified whether nausea present Release Upon Ordering for 1 Occurrences starting 05/17/2025, 1 completed documented as of this encounter Procedures Procedure Name Priority Date/Time Associated Diagnosis Comments AR ESOPHAGOGASTRODUODENOSCOP Y TRANSORAL DIAGNOSTIC 05/17/2025 8:00 AM EDT Hematemesis, unspecified whether nausea present UPPER GI ENDOSCOPY 05/17/2025 7:55 AM EDT documented in this encounter Results * Upper GI Endoscopy (05/17/2025 7:55 AM EDT) Aminata Nassar MD INTERFACE NEEDS Final Result [...] Indicated Resolved Time COVID (History) Comment: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 The last day before reporting a new confirmed COVID-19 would be 12/08/20. -Alida Banda RN 09/09/2020 12/25/2020 Rhinovirus 05/15/2025 05/15/2025 documented as of this encounter Care Teams Motion Picture Equipment Supervisor Relationship Specialty Start Date End Date Michaela Sousa APRN [address] [place] [address] PCP - General Internal Medicine 09/04/24 documented as of this encounter
--- OUTSIDE RECORDS SUMMARY | 2025-05-17 08:00 | XMS_ITS | Encounter Summary ---
Author Organization [facility] Address [address] [place] [address] Care Team Providers Care Investigator Internal Revenue Name Role Phone Lars Michaela APRN Primary Care Provider + [phone] Reason for Visit * Auth/Cert Specialty Diagnoses / Procedures Referred By Gosiaac t Referred To Contact Diagnoses Hematemesis, unspecified whether nausea present Hematemesis, unspecified whether nausea present [K92.0] Procedures [place] ESOPHAGOGASTRODUODENOSCOPY TRANSORAL DIAGNOSTIC ESOPHAGOGASTRODUODENOSCOPY Referral ID Status Reason Start Date Expiration Date Visits Re quested Visits Authorized [id number] 1 1 Encounter Details Date Type Department Care Team (Late st Contact Info) Description 05/17/2025 8:00 AM EDT Anesthesia Event [facility] [address] [place] [address] Bruno Michael MD [address] [place] [id number] Anesthesia Record Procedure Summary Procedure Name Responsible [...] ETT Placement Date: 04/28 10/21; Placement Time: 08 (created via procedure documentation); Blade Size: 3; [...] drink = 0.6 oz pur e alcohol) [facility] Utilities Answer Date Recorded In the past 12 months has [employer], gas, oil, or water [employer] threatened to shut off services in your [...] Date Recorded Retired Total Score 0 05/07/2021 [facility] - Occupational Stress Questionnaire Answer Date [...] things needed for daily living? No 12/10/2024 [place] Depression Scale Answer Date Recorded [place] Depression Scale Total 2 12/22/2024 The thought [...] GED or equivalent No 12/10/2024 Preferred Language Turkish 12/10/2024 PHQ-2 Answer Date Recorded Patient Health [...] Risk Indicated 05/17/2025 7:21 AM EDT Vicki Harrington, DEEPAK * [place] Suicide Severity Rating Scale (Screener/Recent Self-Report) Question Answer Date of Assessment Author 6. Suicidal Behavior (Lifetime) No 7:21 AM EDT Vicki Martell, DEEPAK documented as of this encounter OR Notes * Anesthesia Postprocedure Evaluation - Marilee Gomez CRNA - 05/17/2025 8:31 AM EDT Patient: Maia Kovacs Procedure Summary Date: 05/17/25 Room / Location: [facility] ENDOSCOPY 2 / [facility] Anesthesia Start: 799 Anesthesia Stop: 830 [...] and Staff Patient location during procedure: OR GOLD BUYER/CAA: Marilee Gomez CRNA Indications and Patient Condition [...] Cardiovascular ECG reviewed (+) hypertension (-) past [place], dysrhythmias, angina, cardiac stents ROS comment: ECG NSR ECHO 2020 EF 60% no significant valvular disease Neuro/Psych (+) headaches, psychiatric history (-) seizures, CVA GI/Hepatic/Renal/Endo (+) GERD, PUD, GI bleeding upper , liver disease (enzyme for ATP missing) history of elevated LFT (-) no renal disease, diabetes, no thyroid disorder Musculoskeletal 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 Plan discussed with GOLD BUYER. CODE STATUS: documented in this encounter Plan of Treatment Upcoming Encounters Date Type Department Care Team (Late st Contact Info) Description 06/28/2025 3:45 PM EDT Office Visit [facility] GASTROENTEROLOGY [address] [address] MadayAminata jack MD [address] [address] documented as of this encounter Procedures Procedure [...] and Staff Patient location during procedure: OR GOLD BUYER/CAA: Marilee Gomez CRNA Indications and Patient Condition [...] Indicated Resolved Time COVID (History) Comment:Per regional group director experience for [facility], 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 The last day before reporting a new confirmed COVID-19 would be 12/08/20. -Alida Banda RN 09/09/2020 12/25/2020 Rhinovirus 05/15/2025 05/15/2025 documented as of this encounter Care Teams Investigator Internal Revenue Relationship Specialty Start Date End Date Michaela Sousa APRN [address] [place] [address] [facility] [address] PCP - General Internal Medicine 09/04/24 documented as of this encounter
--- OUTSIDE RECORDS SUMMARY | 2025-05-17 08:00 | XMS_ITS | Encounter Summary ---
Author Organization [facility] Address [address] [place] [address] Care Team Providers Care Wet Machine Tender Name Role Phone Lars Michaela KING Primary Care Provider + [phone] Reason for Visit * Auth/Cert Specialty Diagnoses / Procedures Referred By Velia t Referred To Contact Diagnoses Hematemesis, unspecified whether nausea present Hematemesis, unspecified whether nausea present [K92.0] Procedures PA ESOPHAGOGASTRODUODENOSCOPY TRANSORAL DIAGNOSTIC ESOPHAGOGASTRODUODENOSCOPY Referral ID Status Reason Start Date Expiration Date Visits Re quested Visits Authorized [id number] 1 1 Encounter Details Date Type Department Care Team (Late st Contact Info) Description 05/17/2025 8:00 AM EDT - 05/17/2025 8:33 AM EDT Surgery [facility] ENDO SUITES [address] [place] [address] Aminata Nassar MD 1720 [facility] [address] [place] [address] ESOPHAGOGASTRODUODENOSCOPY [60704 (CPT )] Social History Tobacco Use Types Packs/Day Years Used Date Smoking Tobacco: Never Passive Smoke Exposure: Never Smokeless Tobacco: Never Alcohol Use Standard Drinks/Week Comments No 0 (1 standard drink = 0.6 oz pur e alcohol) [facility] Utilities Answer Date Recorded In the past 12 months has [employer] electric, gas, oil, or water company threatened [...] Date Recorded Retired Total Score 0 05/07/2021 [facility] - Occupational [...] things needed for daily living? No 12/10/2024 [place] Depression Scale Answer Date Recorded [place] Depression Scale Total 2 12/22/2024 The thought [...] 7:21 AM EDT Vicki Harrington RN * [place] Suicide Severity Rating Scale (Screener/Recent Self-Report) Question Answer Date of Assessment Author 6. Suicidal Behavior (Lifetime) No 7:21 AM EDT Vicki Martell RN documented as of this encounter Discharge Instructions * Attachments The following attachments cannot be sent through Care Everywhere. * General Anesthesia Adult Care After (Burkinan) * Upper Endoscopy Adult Care After (Burkinan) documented in this encounter Medications at [...] had dark stool Source Note - Jonathan Leahlinda Gloria APRN - 05/15/2025 1:30 PM EDT Images [...] Liver - Underwent and tubal ligation at [facility]. - Two CT scans showed mild and moderate liver enlargement, respectively. 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 Patient or patient jewelry sales representative verbalized consent for the use of Ambient Listening during the visit with Leah Castillo APRN for chart documentation. 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 The last day before reporting a new confirmed COVID-19 would be 12/08/20. -Alida Banda RN 09/09/2020 12/25/2020 Rhinovirus 05/15/2025 05/15/2025 documented as of this encounter Care Teams Wet Machine Tender Relationship Specialty Start Date End Date Michaela Sousa APRN [address] [place] [address] PCP - General Internal Medicine 09/04/24 documented as of this encounter
[2025-05-18] VITALS (15 sets, daily range): BP systolic 109–127; BP diastolic 70–89; PULSE 47–100; RESP 11–18; TEMP 36.8–36.9; O2SAT 90–100; BMI 23.6
--- NOTE | 2025-05-18 10:47 | ECG_ITS ---
APPROVED REPORT Exam: Resting ECG HR:85 bpm ECG Measurements Heart Rate 85 AXES OR 136 P 63 QRSd 79 QRS 75 QT 346 T -10 QTc 389 Conclusion SINUS RHYTHM WITH SINUS ARRHYTHMIA NONSPECIFIC T-WAVE ABNORMALITY No STEMI Electronically signed by : COLBY HOYT, 05/19/2025 07:46:59
--- OUTSIDE RECORDS SUMMARY | 2025-05-18 11:00 | XMS_ITS | Encounter Summary ---
Author Organization [place] [address] Care Team Providers Care Slot Floor Person Name Role Phone Radha Ordaz LPN Unavailable Unav ailable Encounter Details Date Type Department Care Team (Late st Contact Info) Description 11/02/2018 Lab Requisition [facility] LABOR[facility] [place] [address] Wendy Emerson MD [address] [place] [id number] Other specified abnormal findings of blood [...] 19.47 mcg/dL 9 5:29 PM EST PREFERRED [employer], [employer] Blood VENOUS BLOOD / Unknown 11/02/2018 9:45 AM EST 11/02/2018 4:09 PM EST Narrative PREFERRED [employer], [employer] - 11/02/2018 5:29 PM EST Normal Peak : > 20 ug/dl Wendy Emerson MD CHEMISTRY ORDERABLES Fin al Result Performing Organization Address [facility] de Phone Number [employer] [address] [place] [address] , [place] [address] * CORTISOL 30 MINUTES (11/02/2018 9:15 AM EST) Cortisol 30 Min 17.48 mcg/dL 9 5:35 PM EST [employer] Blood VENOUS BLOOD / Unknown 11/02/2018 9:15 AM EST 11/02/2018 4:09 PM EST Narrative [employer] - 11/02/2018 5:35 PM EST Normal Peak : > 20 ug/dl Wendy Emerson MD CHEMISTRY ORDERABLES Fin al Result Performing Organization Address [facility] Phone Number [employer] [address] [facility] , [place] [address] * CORTISOL BASELINE (11/02/2018 8:40 AM EST) Cortisol Baseline 10.37 mcg/dL 11/02/2018 5:35 PM EST [employer] Blood VENOUS BLOOD / Unknown 11/02/2018 8:40 AM EST 11/02/2018 4:09 PM EST Narrative [employer] - 11/02/2018 5:35 PM EST Ingestion of jose doses of biotin (>5 mg/day) taken within 8 hours of drawing blood sample can interfere with this immunoassay test. Wendy Emerson MD CHEMISTRY ORDERABLES Fin al Result Performing Organization Address [facility] de Phone Number [employer] [facility] [address] [facility] , [place] [address] documented in this encounter Visit Diagnoses Diagnosis Other specified abnormal findings of blood chemistry documented in this encounter Additional Health Concerns Assessment Noted Time PHQ-9 Depression Total Score: 2 10/07/19 19 4:43 PM EST PHQ-2 Depression Total Score: 2 10/07/19 19 4:43 PM EST documented as of this encounter Care Teams Slot Floor Person Relationship Specialty Start Date End Date Radha Ordaz LPN Hatchery Supervisor Licensed Practical Nurse 03/15/20 04/02/20 documented as of this encounter
--- OUTSIDE RECORDS SUMMARY | 2025-05-18 11:00 | XMS_ITS | Clinical Summary ---
Author Organization [facility] Address [address] [place] [address] Care Team Providers Care Aircraft Designer Name Role Phone Nonstaff, Referring Primary Care Provider [phone] Johnnie Shearer MD Unavailable [phone] Allergies Active Allergy Reactions Criticality Noted Date [...] 40 mg by mouth daily. Active Coenzyme Q47-Mnjgnlx E 100-5 mg-unit Capsule Take 400 mg [...] Relation to Subscriber:Self Name:Maia Kovacs Payer ID:[id number] ([facility]) Type:PPO Address: [facility] [id number] [place] [id number] Care Teams Aircraft Designer Relationship Specialty Start Date End Date Nonstaff, MD [place] [address] [place] [address] PCP - General 02/16/23 Johnnie Shearer MD [address] [place], [place] [id number] Gastroenterology 02/16/23
--- OUTSIDE RECORDS SUMMARY | 2025-05-18 11:00 | XMS_ITS | Clinical Summary ---
Author Organization [facility] Address [facility] [address] [place], [place] [address] Phone Care Team Providers Care Market Gardener Name Role Phone Unavailable Primary Care Provider [...] a complete record from that organization. b gbwmifg-M-evmvt acid (NEPHROCAP) 1 mg Oral Capsule Take [...] (07/05/2020): Added automatically from request for surgery [id number] Pelvic pain 07/05/2020 Overview (07/05/2020): Added automatically from request for surgery [id number] Scoliosis of thoracic spine 03/09/2019 S/P endometrial [...] Story LPN Medical Devices Implanted Type Area Narcotics And/Or Vice Detective Device Identifier Shelf Expiration Date Model / Serial / Lot Screw For Bridge Insurance [facility] PL[facility]US [facility]US [facility] PL[facility] * Guarantor: Maia Kovacs Account Type Relation to Patient Date of Phone Billing Address [place] Personal Family Self Advance Directives For more information, please contact: [phone] * Full Code (Latest Code Status on [...]
--- OUTSIDE RECORDS SUMMARY | 2025-05-18 11:00 | XMS_ITS | Encounter Summary ---
Author Organization [facility] Address [address] [place] [address] Care Team Providers Care Meat Boner Name Role Phone Michaela Sousa APRN Primary Care Provider + [phone] Reason for Visit * Reason Onset Date Comments Advice Only 03/08/2025 Encounter Details Date Type Department Care Team (Late st Contact Info) Description 03/08/2025 Telephone [facility] GASTROENTEROLOGY [address] [address] Aminata Nassar MD [address] [address] Advice Only Social History Tobacco Use Types Packs/Day Years Used Date Smoking Tobacco: Never Passive Smoke Exposure: Never Smokeless Tobacco: Never Alcohol Use Standard Drinks/Week Comments No 0 (1 standard drink = 0.6 oz pur e alcohol) [facility] Utilities Answer Date Recorded In the past 12 months has [employer], [employer], oil, or water [employer] threatened to shut off services in your [...] Date Recorded Retired Total Score 0 05/07/2021 [facility] [place] [facility] - Occupational Stress Questionnaire [...] things needed for daily living? No 12/10/2024 [place] Depression Scale Answer Date Recorded [place] Depression Scale Total 2 12/22/2024 The thought [...] GED or equivalent No 12/10/2024 Preferred Language Mohawk 12/10/2024 PHQ-2 Answer Date Recorded Patient Health [...] PM EDT documented as of this encounter Miscellaneous Notes * Telephone Encounter - Mahi Romero RegSched Rep - 03/08/2025 2:08 PM EDT Hub staff attempted to follow warm transfer process and was unsuccessful Caller: Maia Kovacs Relationship to patient: Self Best call back number: [phone] Patient is needing: PT HAD A CT OF LIVER COMPLETED ON 02/13 AND AGAIN ON 02/23 SHOWING ENLARGED, PLEASE CALL AND ADVISE. documented in this encounter Plan of Treatment Upcoming Encounters Date Type Department Care Team (Late st Contact Info) Description 06/28/2025 3:45 PM EDT Office Visit [facility] GASTROENTEROLOGY [address] [phone] Aminata Nassar MD [address] [address] documented as of this encounter Visit Diagnoses Not on filedocumented in this encounter Additional Health Concerns Infection Onset Date Last Indicated Resolved Time COVID (History) Comment:Per regional patient care specialist for [employer] La[employer]eth, 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 The last day before reporting a new confirmed COVID-19 would be 12/08/20. -Alida Banda RN 09/09/2020 12/25/2020 documented as of this encounter Care Teams Meat Boner Relationship Specialty Start Date End Date Michaela Sousa APRN [address] [place] [address] [place] [address] PCP - General Internal Medicine 09/04/24 documented as of this encounter
--- OUTSIDE RECORDS SUMMARY | 2025-05-18 11:00 | XMS_ITS | Encounter Summary ---
Author Organization [facility] Address [address] [place] [address] Care Team Providers Care Golf Club Head Former Name Role Phone Michaela Sousa APRN Primary Care Provider + [phone] Encounter Details Date Type Department Care Team (Latest Contact Info) Description 05/15/2025 Travel Social History Tobacco Use Types Packs/Day Years Used Date Smoking Tobacco: Never Passive Smoke Exposure: Never Smokeless Tobacco: Never Alcohol Use Standard Drinks/Week Comments No 0 (1 standard drink = 0.6 oz pur e alcohol) [facility] Utilities Answer Date Recorded In the past 12 months has [employer] electric, gas, oil, or water company threatened [...] Date Recorded Retired Total Score 0 05/07/2021 [facility] [place] of Occupat ional Health - Occupational Stress [...] things needed for daily living? No 12/10/2024 [place] Depression Scale Answer Date Recorded [place] Depression Scale Total 2 12/22/2024 The thought [...] as of this encounter Functional Status * Over the [...] Author Somewhat difficult 05/15/2025 1:12 PM EDT Mycalisno t, Generic * [place] Suicide Severity Rating Scale (Screener/Recent Self-Report) Question Answer Date of Assessment Author 1. Wish to be (Past 1 Month) No 025 5:23 PM EDT Marilee Orona RN 2. Non-Specific Active Suici genevieve Thoughts (Past 1 Month) No 05/15/2025 5:23 PM EDT Edil Orona RN 6. Suicidal Behavior (Lifetime) No 5:23 PM EDT Marilee Orona RN documented as of this encounter Plan of Treatment Upcoming Encounters Date Type Department Care Team (Late st Contact Info) Description 06/28/2025 3:45 PM EDT Office Visit [facility] GASTROENTEROLOGY [address] [address] Aminata Nassar MD [address] [address] documented as of this encounter Visit Diagnoses Not on filedocumented in this encounter Additional Health Concerns Infection Onset Date Last Indicated Resolved Time COVID (History) Comment:Per regional surgical elastic knitter for [employer], 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 The last day before reporting a new confirmed COVID-19 would be 12/08/20. -Alida Banda RN 09/09/2020 12/25/2020 COVID Screen (preop/placement) 05/15/2025 05/15/2025 05/15/2025 7:22 PM EDT Rhinovirus 05/15/2025 05/15/2025 documented as of this encounter Care Teams Golf Club Head Former Relationship Specialty Start Date End Date Michaela Sousa APRN [address] [place] [address] ALONZOBANNER MD [facility] [address] PCP - General Internal Medicine 09/04/24 documented as of this encounter
--- OUTSIDE RECORDS SUMMARY | 2025-05-18 11:00 | XMS_ITS | Encounter Summary ---
Author Organization [facility] Address [address] [place] [address] Care Team Providers Care Gas Furnace Installer Name Role Phone Michaela Sousa APRN Primary Care Provider + [phone] Encounter Details Date Type Department Care Team (Latest Contact Info) Description 05/17/2025 Travel Social History Tobacco Use Types Packs/Day Years Used Date Smoking Tobacco: Never Passive Smoke Exposure: Never Smokeless Tobacco: Never Alcohol Use Standard Drinks/Week Comments No 0 (1 standard drink = 0.6 oz pur e alcohol) [facility] Utilities Answer Date Recorded In the past 12 months has [employer] electric, gas, oil, or water company threatened [...] Date Recorded Retired Total Score 0 05/07/2021 [facility] [place] of Occupat ional Health - Occupational Stress [...] things needed for daily living? No 12/10/2024 [place] Depression Scale Answer Date Recorded [place] Depression Scale Total 2 12/22/2024 The thought [...] GED or equivalent No 12/10/2024 Preferred Language [place] Timorese 12/10/2024 PHQ-2 Answer Date Recorded Patient Health [...] Vicki Martell, DEEPAK 2. Non-Specific Active Suici genevieev Thoughts (Past 1 Month) No 05/17/2025 7:21 AM EDT Jarrell Martell si, RN * Calculated C-SSRS Risk Score (Lifetime/Recent) Answer Date of Assessment Author No Risk Indicated 05/17/2025 7:21 AM EDT Vicki Harrington RN * [place] Suicide Severity Rating Scale (Screener/Recent Self-Report) Question Answer Date of Assessment Author 6. Suicidal Behavior (Lifetime) No 7:21 AM EDT Vicki Martell, DEEPAK documented as of this encounter Plan of Treatment Upcoming Encounters Date Type Department Care Team (Late st Contact Info) Description 06/28/2025 3:45 PM EDT Office Visit 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 The last day before reporting a new confirmed COVID-19 would be 12/08/20. -Alida Banda RN 09/09/2020 12/25/2020 Rhinovirus 05/15/2025 05/15/2025 documented as of this encounter Care Teams Gas Furnace Installer Relationship Specialty Start Date End Date Michaela Sousa APRN [address] [place] [address] PCP - General Internal Medicine 09/04/24 documented as of this encounter
--- OUTSIDE RECORDS SUMMARY | 2025-05-18 11:00 | XMS_ITS | Encounter Summary ---
Author Organization [facility] Address [address] [place] [address] Care Team Providers Care Mexican Food Cook Name Role Phone Michaela Sousa APRN Primary Care Provider + [phone] Encounter Details Date Type Department Care Team (Late st Contact Info) Description 05/16/2025 Prep for Surgery [facility] ORDERS ONLY [address] [place] [address] Aminata Nassar MD [address] [id number] Hematemesis, unspecified whether nausea present (Primary Dx) Social History Tobacco Use Types Packs/Day Years Used Date Smoking Tobacco: Never Passive Smoke Exposure: Never Smokeless Tobacco: Never Alcohol Use Standard Drinks/Week Comments No 0 (1 standard drink = 0.6 oz pur e alcohol) [facility] Utilities Answer Date Recorded In the past 12 months has [email or web address], gas, oil, or water [employer] threatened to shut off services in your [...] Date Recorded Retired Total Score 0 05/07/[address] [facility] - Occupational Stress Questionnaire Answer Date [...] things needed for daily living? No 12/10/2024 Whiting Depression Scale Answer Date Recorded Whiting Depression Scale Total 2 12/22/2024 The thought [...] GED or equivalent No 12/10/2024 Preferred Language Guinean 12/10/2024 PHQ-2 Answer Date Recorded Patient Health [...] PM EDT documented as of this encounter Plan of Treatment Upcoming Encounters Date Type Department Care Team (Late st Contact Info) Description 06/28/2025 3:45 PM EDT Office Visit [facility] [address] [address] Aminata Nassar MD [address] [address] documented as of this encounter Visit Diagnoses Diagnosis Hematemesis, unspecified whether nausea present- Primary documented in this encounter Additional Health Concerns Infection Onset Date Last Indicated Resolved Time COVID (History) Comment:Per regional scoop driver for [facility] 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 The last day before reporting a new confirmed COVID-19 would be 12/08/20. -Alida Banda RN 09/09/2020 12/25/2020 Rhinovirus 05/15/2025 05/15/2025 documented as of this encounter Care Teams Mexican Food Cook Relationship Specialty Start Date End Date Michaela Sousa APRN [address] [address] [place], [place] [phone] PCP - General Internal Medicine 09/04/24 documented as of this encounter
--- OUTSIDE RECORDS SUMMARY | 2025-05-18 11:00 | XMS_ITS | Clinical Summary ---
Author Organization [facility] Address [address] [place] [address] Care Team Providers Care Wood And Wood Products Labourer Name Role Phone SousaMichaela sheehan Juani KING Primary Care Provider [phone] Allergies Active Allergy Reactions Criticality Noted Date [...] or split. 30 tablet 3 Active B Alwgato-Xldykd-JM (B Complete) tablet Active pantoprazole (ProtoNix) 20 [...] declined 02/25/2023 How often do you attend yazdanism or voodoo serv ices? Patient declined 02/25/2023 Do you belong to any clubs o r organizations such as yazdanism groups, unions, fraternal or athletic groups, or [...] Recorded Patient Health Questionnaire-2 Score 4 03/01/2023 [facility] - [...] place to sleep or slept in a snf (including now)? Patient refused 02/25/2023 PHQ-9 Answer [...] drink first t donovan in the morning (EYE-COMMERCIAL LEASING MANAGER) to steady your nerves or to [...] Vaccines (1 - 3-dose SCDM series) 2019 HON-BEFQS-42 Vaccine (3 - Pfizer risk series) 06/04/2021 [...] PM EDT Historical Provider LAB BLOOD ORDERABLES Final R Sangart Performing Organization Address [facility] Co de Phone Number SUNQUEST * HIV 1 & 2 Antibody/Antigen Screen (12/18/2017 5:52 AM EDT) HIV 1 Result NONREACTIVE Screening for HIV 1 and 2 antibodies is NONREACTIVE. No confirmatory testing is required. SUNQUEST 12/18/2017 5:52 AM EDT 12/18/2017 6:28 AM EDT Historical Provider LAB BLOOD ORDERABLES Final R esult Performing Organization Address City/State/[facility] Co de Phone Number SUNQUEST from Last 3 Months or Most Recently Relevant to Health Maintenance Insurance ANDRES Care Teams [employer] Labourer Relationship Specialty Start Date End Date Michaela Sousa APRN [address] [place] [address] PCP - General 07/24/21
--- OUTSIDE RECORDS SUMMARY | 2025-05-18 11:00 | XMS_ITS | CCD ---
Author Name Interface, [email or web address] lity Address [address] [place], [place] [id number] Organization [facility] Address [address] [place], [place] [id number] Care Team Providers Care Junior Architect Name Role Phone Sukhjinder KAISER, Jens Purvis Unavailable Unavailable Reason for Visit Medications Problems Social History
--- OUTSIDE RECORDS SUMMARY | 2025-05-18 11:00 | XMS_ITS | Encounter Summary ---
Author Organization [place] [address] Care Team Providers Care Business Intelligence Architect Name Role Phone Radha Ordaz LPN Unavailable Unav ailable Encounter Details Date Type Department Care Team (Late st Contact Info) Description 11/02/2018 Lab Requisition [facility] [place] [address] Wendy Emerson MD [address] [place] [phone] Other specified abnormal findings of blood [...] HORMONE -REF LAB (11/02/2018 8:40 AM EST) [facility] ACTH 21 6 - 58 pg/mL 11/04/2018 2:20 PM EST [employer] Comment: INTERPRETIVE INFORMATION: Adrenocorticotropic Hormone Some types of synthetic ACTH are not detected by this assay. Access complete set of age- and/or gender-specific reference intervals for this test in the [facility] Test Directory ([email or web address]). Performed by [employer] Operations, [address] [place] [address] [email or web address], Robert Restrepo MD, Lab. Director Blood VENOUS BLOOD / Unknown 11/02/2018 8:40 AM EST 11/02/2018 2:17 PM EST us Wendy Emerson MD CHEMISTRY ORDERABLES Fin al Result [facility] [facility] [address] [place] [address] documented in this encounter Visit Diagnoses Diagnosis Other specified abnormal findings of blood chemistry documented in this encounter Additional Health Concerns Assessment Noted Time PHQ-9 Depression Total Score: 2 10/07/19 19 4:43 PM EST PHQ-2 Depression Total Score: 2 10/07/19 19 4:43 PM EST documented as of this encounter Care Teams Business Intelligence Architect Relationship Specialty Start Date End Date Radha Ordaz LPN Research Specialist Licensed Practical Nurse 03/15/20 04/02/20 documented as of this encounter
--- OUTSIDE RECORDS SUMMARY | 2025-05-18 11:00 | XMS_ITS | CCD ---
Author Name Interface, [email or web address] lity Address [address] [place] [address] Organization [facility] Address [address] [place] [address] Care Team Providers Care Professor Of Architecture Name Role Phone Sukhjinder KAISER, Jens Purvis Unavailable Unavailable Reason for Visit TELEPHONIC NURSE IRON DEFICIENCY Medications Date Name Route Dose [...]
--- OUTSIDE RECORDS SUMMARY | 2025-05-18 11:01 | XMS_ITS | Patient Health Record ---
Author Organization [facility] Address [address] [facility] [address] [place] [address] Care Team Providers Care Manager Social Services Name Role Phone Chelita Jackson Unavailable [phone] HermanShivam Unavailable [phone] HuyValencia Unavailable [phone] Anthony Luna Unavailable [phone] Lani Gould Unavailable [phone] Leah Acosta Unavailable [phone] Georgie Perez Unavailable [phone] Allergies Allergen (clinical drug ingredient) Drug/Non Drug [...] date:09/25/2024 07:57:44 AM Interpretation: Performing Lab: Notes/Report: [facility] Transabdominal Obstetric Study Report Name: ROCIO KOVACS Accession/Encounter No:[id number] : 1990 Age: 34 Gender: F Study [...] 1 of 1 Imaging Center - , [facility] CBC Reviewed date:11/01/2024 02:12:26 PM Interpretation: Performing Lab: Notes/Report: Comprehensive Metabolic Pane l (CMP) Reviewed date:11/01/2024 03:32:55 PM Interpretation:Normal Performing Lab: Notes/Report: Normal LDH Reviewed date:11/01/2024 02:11:41 PM Interpretation: Performing Lab: Notes/Report: Uric Acid, Serum Reviewed date:11/01/2024 02:12:09 PM Interpretation: Performing Lab: Notes/Report: Group B Strep by PCR w/ PCN allergy Reviewed date:11/27/2024 09:52:59 PM Interpretation:Negative Performing Lab: Notes/Report: [facility] Testing performed at: [] [facility], [address] [place] [address], [place], [address], , Human Resources Operations Director: Jean Kebede, PhD Strep Gp B GREYSON+Rflx Negative Negative N vaginal and rectal swab specimen to maximize sensitivity of intrapartum prophylaxis of GBS colonization. streptococcal (GBS) disease specify co-collection of a Reflex susceptibility testing should be performed prior to [employer] Obstetricians [employer] Gynecologists (ACOG) guidelines for prevention of group B testing is warranted if resistance to clindamycin is noted. anaphylaxis. Treatment with vancomycin without additional Centers for Disease Control and Prevention (CDC) and use of clindamycin only on GBS isolates [...] 140-450 10*3/mm3 Lab specimens received at a [facility].?See result details for the [...] 140-450 10*3/mm3 Lab specimens received at a [facility].?See result details for the performing location information. ANTIBODY SCREEN Reviewed date:10/03/2024 03:20:01 PM Interpretation:negative Performing Lab: Notes/Report: ANTIBODY SCREEN Negative Lab speci mens received at a [facility].?See result details for the performing location information. TREPONEMA PALLIDUM (SYPHILIS ) SCREENING CASCADE Reviewed date:10/04/2024 07:53:59 AM Interpretation:non reactive Performing Lab: Notes/Report: Reactive results will reflex RPR testing. TREPONEMAL AB TOTAL Non-Reactive Non-Reacti Lab specimens received at a [facility].?See result details for the performing location information. TISSUE PATHOLOGY EXAM Reviewed date:12/13/2024 01:05:40 PM Interpretation: Performing Lab: Notes/Report: LAB AP CASE REPORT Surgical Pathology Report Case: [id number] LAB AP CASE REPORT Authorizing Provider : Shivam Sutton MD Collected: 12/10/2024 01:35 PM LAB AP CASE REPORT Ordering Location: [facility] Received: 12/11/2024 06:35 AM LAB AP CASE REPORT LABOR DELIVERY LAB AP CASE REPORT Pathologist: Ignacia Piedra DO LAB AP CASE REPORT Specimen: Fallopian Tubes, Bilateral LAB AP CLINICAL INFORMATION Encounter for sterilization LAB AP FINAL DIAGNOSIS BILATERAL FALLOPIAN TUBES, STERILIZATION: LAB AP FINAL DIAGNOSIS Complete cross-sections of bilateral fallopian tubes identified LAB AP FINAL DIAGNOSIS at [address] [facility] LAB AP GROSS DESCRIPTION 1. Fallopian Tubes, Bilateral. BEAKER LAB AP GROSS DESCRIPTION Received in formalin labeled bilateral fallopian tube are 2 intact, undesignated, fimbriated fallopian tubes averaging 9 cm long by 0.8 cm in diameter. Sectioning of each fallopian tube reveals an unremarkable stellate lumen. Choke Reamer sections of each tube to include the bisected fimbria and full-thickness cross-sections are submitted separately in 1 A- 1B. HDM LAB AP MICROSCOPIC DESCRIPTION The slides are reviewed and demonstrate histopathologic features supporting the above rendered diagnosis. Lab specimens received at a [facility].?See result details for the [...] /100 WBC Lab specimens received at a [facility].?See result details for the performing location information. *US OB Detailed Anatomy Reviewed date:08/23/2024 10:39:14 AM Interpretation: Performing Lab: Notes/Report: [facility] Transabdominal Obstetric Study Report Name: ROCIO KOVACS Accession/Encounter No:[id number] : 1990 Age: 34 Gender: F Study [...] 1 of 1 Imaging Center - , [facility] * OB Follow-Up Reviewed date:11/01/2024 03:28:29 PM Interpretation: Performing Lab: Notes/Report: [facility] Transabdominal Obstetric Study Report Name: ROCIO KOVACS Accession/Encounter No:[id number] : 1990 Age: 34 Gender: F Study [...] 1 of 1 Imaging Center - , [facility] [address] GLUCOSE, POST 50 GM GLUCOLA Reviewed date:10/03/2024 03:01:33 PM Interpretation:passed - 82 Performing Lab: Notes/Report: GESTATIONAL GCT 82 65-139 mg/dL Lab spe cimens received at a [facility].?See result details for the performing location information. 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 Currently Diagnosis 1 Rectal bleeding (K62 .5) Referral Organization [facility] Referring Provider First Name Leah Referring Provider Last Name Dave Referring Provider Speciality OB - Gynec ology Referral Priority Routine Referral Appointment Date 08/03/2024 Reason skin issues in pregn paul Diagnosis 1 Skin abnormality (L9 8.9) Referral Organization [facility] Referring Provider First Name Georgie Referring Provider [...] weeks gestation o f (Z3A.22) Referral Organization [facility] Referring Provider First Name [...] Domestic violence: No Do you have any buddhism, m oral, or cultural beliefs or customs that your provider should know about? No Would you object to blood products in the event of an emergency? 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 Problem History of section (104368559) History of delivery (Z98.891) Active confirmed Problem Sterilization requested (situation) (870662915) Request for sterilization (Z30.2) Active confirmed Problem Abnormal uterine bleeding (27218657252414) Abnormal uterine bleeding (N93.9) Active confirmed Problem History of hemorrhage (127644040) History of hemorrhage (Z87.59) Active confirmed Vital Signs Blood pressure diastolic 60 mm Hg 12/27/2024 Height 69 in 12/27/2024 Blood pressure systolic 118 mm Hg 12/27/2024 Weight 149.4 lbs 12/27/2024 BMI 22.06 kg/m2 12/27/2024 Encounters Encounter Location Date Provider Diagnosis [facility] [address] [facility] [address] [place] [address] 09/07/2024 Leah Acosta Encounter for supervision of other normal , second trimester Z34.82 [facility] [address] [facility] [address] [place] [address] 09/11/2024 Chelita Jackson [facility] [address] [facility] [address] [place] [address] 09/11/2024 Chelita Jackson Encounter for other screening follow-up Z36.2 [facility] [address] [facility] [address] [place] [address] 10/04/2024 [facility] [address] [place] [address] 11/30/2024 [facility] [address] [facility] [address] [place] [address] 12/01/2024 [facility] [address] [facility] [address] [place] [address] 12/13/2024 [facility] [address] [facility] [address] [place] [address] 12/18/20[facility] Encounter for routin e follow-up Z39.2 [facility] [address] [place] [address] 01/10/2025 [facility] [address] [place] [address] 11/22/2024 [facility] [address] [place] [address] 12/12/2024 [facility] [address] [place] [address] 12/13/2024 [facility] [address] [place] [address] 12/14/2024 [facility] [address] [place] [address] 12/14/2024 [facility] [address] [place] [address] 12/14/2024 [facility] [address] [place] [address] 12/26/2024 [facility] Abnormal uterine bleeding N93.9 [facility] [address] [place] [address] 12/26/2024 [facility] [address] [place] [address] 12/28/2024 [facility] [address] [place] [address] 12/31/2024 [facility] [address] [place] [address] 01/15/2025 [facility] [address] [place] [address] 08/22/2024 Georgie Perez 22 weeks gestation o f Z3A.22 and Encounter for supervision of other normal , second trimester Z34.82 [facility] [address] [facility] [address] [place] [address] 10/03/2024 Valencia Son Encounter for supervision of other normal , third trimester Z34.83 and 28 weeks gestation of Z3A.28 [facility] [address] [facility] [address] [place] [address] 12/05/2024 Shivam Sutton 37 weeks gestation o f Z3A.37 and Encounter for supervision of other normal , third trimester Z34.83 [facility] [address] [facility] [address] [place] [address] 12/27/2024 Shivam Sutton Encounter for routin e follow-up Z39.2 and Encounter for screening for maternal depression Z13.32 [facility] [address] [facility] [address] [place] [address] 11/01/2024 Georgie Perez Encounter for supervision of other normal , third trimester Z34.83 and 32 weeks gestation of Z3A.32 [facility] [address] [facility] [address] [place] [address] 09/18/2024 Lani Gould Encounter for other screening follow-up Z36.2 [facility] [address] [facility] [address] [place] [address] 08/22/2024 Leah Acosta Encounter for supervision of other normal , second trimester Z34.82 [facility] [address] [facility] [address] [place] [address] 11/01/2024 Georgie Perez Encounter for supervision of other normal , third trimester Z34.83 [facility] [address] [place] [address] 12/10/2024 Shivam Sutton [facility] [address] [facility] [address] [place] [address] 11/23/2024 Shivam Sutton Other specified screening Z36.89 [facility] [address] [facility] [address] [place] [address] 11/30/2024 Shivam Sutton 36 weeks gestation o f Z3A.36 ; Encounter for supervision of other normal , third trimester Z34.83 and Uterine contractions O47.9 [facility] [address] [facility] [address] [place] [address] 09/18/2024 Lani Gould 28 weeks gestation o f Z3A.28 [facility] [address] [facility] [address] [place] [address] 10/17/2024 Shivam Sutton 30 weeks gestation o f Z3A.30 ; Encounter for supervision of other normal , third trimester Z34.83 and Hyperemesis gravidarum O21.0 [facility] [address] [facility] [address] [place] [address] 07/24/2024 Leah Acosta Encounter for supervision of other normal , second trimester Z34.82 ; 17 weeks gestation of Z3A.17 ; Bruising T14.8XXA ; Chronic anemia D64.9 ; History of delivery Z98.891 ; Request for sterilization Z30.2 ; History of hemorrhage Z87.59 ; Gene mutation Z15.89 ; Hx of hepatic disease Z87.19 and Excessive vomiting O21.9 [facility] [address] [facility] [address] [place] [address] 11/14/2024 Shivam Sutton 34 weeks gestation o f Z3A.34 ; Encounter for supervision of other normal , third trimester Z34.83 and labor without delivery O60.00 [facility] [address] [facility] [address] [place] [address] 11/28/2024 Georgie Perez Encounter for supervision of other normal , third trimester Z34.83 and 36 weeks gestation of Z3A.36 Assessments Encounter Date Diagnosis (ICD Code) Assessment [...] Insured Coverage Start Date Coverage End Date [facility] [address] [address] [place], [place] [id number] [phone] [id number] Rocio Kovacs Self - patient is the [...]
--- OUTSIDE RECORDS SUMMARY | 2025-05-18 11:01 | XMS_ITS | Clinical Summary ---
Author Organization [facility] Address [address] [place] [address] Care Team Providers Care Manager Chemistry Name Role Phone Michaela Sousa APRN Primary Care Provider + [phone] Allergies Active Allergy Reactions Criticality Noted Date [...] High 12/09/2017 Sulfa Antibiotics Anaphylaxis,Hives High 12/09/2017 Sulfamethoxazole-Trimeth oprim Hives 01/27/2021 Medications Co-Enzyme Q10 100 MG capsule Take 4 capsules by mouth. Active pantoprazole (PROTONIX) 40 MG EC tabletIndicati ons:Hyperemesi s gravidarum Take 1 tablet by mouth 2 (Two) Times a Day. 180 tablet 3 4 Active docusate sodium 100 MG capsule Take 1 capsule by mouth 2 (Two) Times a Day As Needed for Constipation . 60 capsule 1 12/13/2024 10:53 AM EDT 5 Active simethicone (MYLICON) 80 MG chewable tablet Chew 1 tablet 4 (Four) Times a Day As Needed for Flatulence. 30 tablet 12/13/2024 12:41 PM EDT 5 Active polyethylene glycol (MIRALAX) 17 g packet Take 17 g by mouth Daily. 100 each 5 Active sodium phosphate (FLEET) 7-19 GM/118ML ADULT enema Insert 1 enema into the rectum Every 6 (Six) Hours As Needed (constipatio n). 4 each 5 Active cyclobenzaprin e (FLEXERIL) 10 MG tablet Take 1 tablet by mouth 3 times a day. 5 Active gabapentin (NEURONTIN) 300 MG capsule Take 1 capsule by mouth 2 (Two) Times a Day. Active vitamin (, CLASSIC, vitamin) tablet Take by mouth Daily. 05/15/20 25 Discontinued (Patient Reported Not Taking) furosemide (Lasix) 20 MG tablet Take 1 tablet by mouth 2 (Two) Times a Day. 6 tablet 12/13/2024 12:41 PM EDT 5 05/15/20 25 Discontinued (Patient Reported Not Taking) Active Problems Problem Noted Date Diagnosed Date Hematemesis 05/16/2025 S/P section 12/10/2024 Third trimester 12/09/2024 Headache [...] (09/28/2018): Added automatically from request for surgery [id number] RLQ abdominal pain 09/22/2018 Overview (09/28/2018): Added automatically from request for surgery [id number] B12 deficiency 09/22/2018 Overview (09/28/2018): Added automatically from request for surgery [id number] Chronic anemia 09/18/2018 Narcotic habituation, continuous 09/17/2018 Anxiety disorder 05/12/2018 Vocal cord dysfunction 05/10/2018 Stridor 2018 Respiratory distress 05/07/2018 Moderate persistent asthma with acute exacerbati on 05/07/2018 Chronic nausea 05/07/2018 Epigastric abdominal pain 05/07/2018 Overview (05/12/2018): Added automatically from request for surgery [id number] Generalized abdominal pain 12/09/2017 Resolved Problems Problem Noted Date Diagnosed Date Resolved Date ROM (rupture of membranes), premature 12/10/2024 12/10/2024 Hematemesis 05/16/2022 05/18/2022 uterine contractions in third trimester, antepartum 04/24/2021 05/17/2021 Decreased movement 02/05/2021 11/20/2020 05/17/2021 Overview (11/20/2020): cfDNA Acute dehydration 12/14/2019 10/16/2020 Influenza B 12/14/2019 10/16/2020 Drug-induced constipation 09/22/2018 Overview (09/28/2018): Added automatically from request for surgery [id number] Non-cardiac chest pain 09/17/201810/16 Hypokalemia 09/17/2018 09/19/2018 Hypomagnesemia 09/17/2018 09/19/2018 Leukocytosis 05/07/2018 05/12/2018 Elevated liver enzymes 02/27/201810/16 Intractable nausea and vomiting 02/27/2018 03/01/2018 Intractable cyclical vomiting with nausea 02/27/2018 03/01/2018 Encounters Date Type Department Care Team Description 5 8:00 AM EDT - 5 8:33 AM EDT Surgery [facility] [address] [place] [address] Aminata Nassar MD ESOPHAGOGASTRODUODENOSCOPY [[id number] (CPT )] 5 8:00 AM EDT Anesthesia Event [facility] [address] [place] [address] Bruno Michael MD 5 6:38 AM EDT - 5 9:25 AM EDT Hospital Encounter [facility] [address] [place] [address] Aminata Nassar MD Hematemesis, unspecified whether nausea present Discharge Disposition: Home or Self Care 5 Travel 5 Prep for Surgery [facility] ONLY [address] [place] [address] Aminata Nassar MD Hematemesis, unspecified whether nausea present (Primary Dx) 5 6:23 PM EDT - 5 10:34 PM EDT Emergency [facility] EMERGENCY [facility]PARTMENT [address] [place] [phone] Selene Lizarraga MD Acute abdominal pain (Primary Dx); History of peptic ulcer disease; Nausea and vomiting in adult Discharge Disposition: Home or Self Care 5 1:30 PM EDT Office Visit [facility] [address] [place] [address] Leah Castillo APRN Hematemesis with nausea (Primary Dx); Change in bowel habits; Epigastric pain; Melena; Constipation, unspecified constipation type 5 Travel 5 Telephone [facility] [address] [facility] [address] [place] [id number] Aminata Nassar MD Advice Only 5 6:42 PM EDT - 5 8:43 PM EDT Emergency [facility] EM[facility]GENC[facility]PART[facility] [address] [place] [address] Sandra Claire MD Right lower quadrant pain (Primary Dx); Lower abdominal pain; Cyst of right ovary; Constipation, unspecified constipation type Discharge Disposition: Home or Self Care 5 Travel from Last 3 Months Immunizations Immunization Administration Dates Next Due Fluzone (or Fluarix & Flulav al for VFC) >6mos 07/07/2018,06/26/2018(Deferred: Parental decision) Influenza Seasonal Injectable 07/15/2023, 013 Influenza, Unspecified 06/07/2018,2016,07/20/2016,2014 Family History Medical History Relation Name Comments Colon cancer Father Dad Had a polyp ting t was almost cancer physician stated i f he had waited another month would be colon cancer Hyperlipidemia Father Dad Hypertension Father Dad Asthma Maternal Grandmother COPD Maternal Grandmother Hyperlipidemia Maternal Grandmother Hypertension Maternal Grandmother Lung cancer Maternal Grandmother COPD Mother Mom Colon cancer Mother Mom Tumor in small intestine (carpet one?) surgery to remive Diabetes Mother Mom Fibromyalgia Mother Mom Hypothyroidism Mother Mom Osteoarthritis Mother Mom Seizures Mother Mom Stomach cancer Mother Mom Tumor in smal l intestine (carpet one?) surgery to remove Colon cancer Paternal Grandfather Pa Diabetes Paternal Grandfather Pa Hyperlipidemia Paternal Grandfather Pa Hypertension Paternal Grandfather Pa Hyperlipidemia Paternal Grandmother Hypertension Paternal Grandmother Relation Name Status Comments Father Dad Alive Maternal Grandmother Mother Mom Alive Paternal Grandfather Pa Paternal Grandmother Social History Tobacco Use Types Packs/Day Years Used Date Smoking Tobacco: Never Passive Smoke Exposure: Never Smokeless Tobacco: Never Tobacco Cessation:Counseling Given: Not Answered Alcohol Use Standard Drinks/Week Comments No 0 (1 standard drink = 0.6 oz pur e alcohol) [facility] Utilities Answer Date Recorded In the past 12 months has th e [employer], gas, oil, or water [employer] threatened to shut off services in your [...] Date Recorded Retired Total Score 0 05/07/[address] [facility] - Occupational Stress Questionnaire Answer Date [...] things needed for daily living? No 12/10/2024 Basin Depression Scale Answer Date Recorded Basin Depression Scale Total 2 12/22/2024 The thought [...] GED or equivalent No 12/10/2024 Preferred Language Swedish 12/10/2024 PHQ-2 Answer Date Recorded Patient Health [...] Orientation Straight 05/15/2025 1: 08 PM EDT Last Filed Vital Signs Vital Sign Reading [...] Mass Index 23.78 05/17/2025 7:27 AM EDT Plan of Treatment Upcoming Encounters Date Type Department Care Team (Late st Contact Info) Description 06/28/2025 3:45 PM EDT Office Visit [facility] [address] [facility] [address] [place] [address] Aminata Nassar MD [address] [facility] [address] [place] [address] Health Maintenance Due Date Last Done Comments [...] 12/08/2018, 12/10/2017 Medical Devices Implanted Type Area Stacker Driver Device Identifier Shelf Expiration Date Model / Serial / Lot Stnt Percuflx No Gw 4.8x26 - [id number] Implanted:Qty: 1 on 12/18/2022 by Raulito Lancaster MD at [facility] Stent Right: Urinary Bladder [employer] PATRICIA 08/19/2025 [id number] / / [id number] Procedures Procedure Name Priority Date/Time Associated Diagnosis Comments ANESTHESIA INTUBATION Routine 05/17/2025 8:12 AM EDT MN ESOPHAGOGASTRODUODENOSCOP Y TRANSORAL DIAGNOSTIC 05/17/2025 8:00 AM EDT Hematemesis, unspecified whether nausea present UPPER GI ENDOSCOPY 05/17/2025 7:[address] ABDOMEN PELVIS W WO CONTRAST STAT 05/15/2025 9:30 PM EDT TYPE AND SCREEN STAT 05/15/2025 7:22 PM EDT BLACK TOP STAT 05/15/2025 7:17 PM EDT GOLD TOP - SST STAT 05/15/2025 7:17 PM EDT DK GREEN TOP STAT 05/15/2025 7:17 PM EDT HCG, QUANTITATIVE, STAT 7:17 PM EDT ETHANOL STAT 05/15/2025 7:17 PM EDT COMPREHENSIVE METABOLIC PANEL STAT 7:17 PM EDT LIGHT BLUE TOP STAT 05/15/2025 6:52 PM EDT LAVENDER TOP STAT 05/15/2025 6:52 PM EDT CBC AND DIFFERENTIAL STAT 05/15/2025 6:52 PM EDT CBC WITH AUTO DIFFERENTIAL STAT 05/15 6:52 PM EDT RAINBOW DRAW STAT 05/15/2025 6:52 PM EDT SCANNED - TELEMETRY 05/15/2025 6:40 PM EDT POCT PEFORM URINE STAT 04/27 6:11 PM EDT FENTANYL, URINE STAT 05/15/2025 6:03 PM EDT URINE DRUG SCREEN STAT 05/15/2025 6:03 PM EDT RESPIRATORY PANEL PCR W/ COVID-19 (SARS-COV-2), MRI SPECIAL PROCEDURES TECHNOLOGIST SWAB IN UTM/VTP, 2 HR TAT STAT 05/15/2025 6:02 PM EDT COVID PRE-OP / PRE-PROCEDURE SCREENING ORDER (NO ISOLATION) STAT 05/15/2025 6:02 PM EDT SCANNED - IMAGING 04/06/2025 SCANNED - LABS 03/27/2025 CT ABDOMEN PELVIS W CONTRAST STAT 5:20 PM EDT ECG 12-LEAD STAT 02/16/2025 [...] RFX ON ABNORMAL TO FREE T4 STAT 0 02/16/2025 4:06 PM EDT PHOSPHORUS STAT 02/16/2025 4:06 PM EDT MAGNESIUM STAT 02/16/2025 4:06 PM EDT C-REACTIVE PROTEIN STAT 02/16/2025 4:06 PM EDT PROCALCITONIN STAT 02/16/2025 4:06 PM EDT LACTIC ACID, PLASMA STAT 02/16/2025 4:06 PM EDT TROPONIN STAT 02/16/2025 4:06 PM EDT CBC WITH AUTO DIFFERENTIAL STAT 02/16 4:06 PM EDT HCG, QUANTITATIVE, STAT 4:06 PM EDT LIPASE STAT 02/16/2025 4:06 PM EDT COMPREHENSIVE METABOLIC PANEL STAT 4:06 PM EDT RAINBOW DRAW STAT 02/16/2025 4:06 PM EDT , URINE STAT 02/16/2025 2:41 PM EDT URINALYSIS W/ MICROSCOPIC IF INDICATED (NO CULTURE) STAT 02/16/2025 2:41 PM EDT PAP IG, HPV-HR (P&C LAB) Routine 021 2:06 PM EST Less than 8 weeks gestation of HEPATITIS C ANTIBODY Routine 10/17/2020 2:08 PM EST Less than 8 weeks gestation of from Last 3 Months or Most Recently Relevant to Health Maintenance Results * BH AN ETT AIRWAY (05/17/2025 8:12 AM EDT) Narrative Marilee Gomez CRNA - 05/17/2025 8:12 AM EDT Marilee Gomez CRNA 05/17/2025 8:12 AM Airway Reason: elective Date/Time: 05/17/2025 8:10 AM Airway not difficult General Information and Staff Patient location during procedure: OR REACTOR OPERATOR/CAA: Marilee Gomez CRNA Indications and Patient Condition [...] symmetric chest rise and fall Marilee Gomez MUSTAPHA ANESTHESIA ORDERABLES Final Re sult * Upper GI Endoscopy (05/17/2025 7:55 AM EDT) us Aminata Nassar MD INTERFACE NEEDS Final Result * CT Abdomen Pelvis With & Without Contrast (05/15/2025 9:30 PM EDT) Anatomical Region Laterality Modality Abdomen, Pelvis N/A Computed Tomogra phy 05/15/2025 9:34 PM EDT Impressions 05/15/2025 9:38 PM EDT 1.No acute findings in the abdomen or pelvis. 2.Prior cholecystectomy. Electronically Signed: Nolan Gongora MD 05/15/2025 9:38 PM EDT Workstation ID: [id number] Narrative 05/15/2025 9:[address] ABDOMEN [...] MD 05/15/2025 9:38 PM EDT Workstation ID: [id number] Selene Lizarraga MD [facility] CT ORDERABLES Final R esult * Type & Screen (05/15/2025 7:22 PM EDT) ABO Type O 05/15/2025 8:09 PM EDT [facility] RH type Positive 05/15/2025 8:09 PM EDT [facility] Antibody Screen Negative 05/15/2025 8:09 PM EDT [facility] T&S Expiration Date 05/18/2025 11:59:59 PM 05/15/2025 8:09 PM EDT [facility] Blood Venipuncture / Unknown 05/15/2025 7:22 PM EDT 05/15/2025 7:31 PM EDT Selene Lizarraga MD BLOOD BANK TEST ORDERABLE S Edited Result - Final [facility]
[address] [place] [address], * Black Top (05/15/2025 7:17 PM EDT) Only the most recent of2 resultswithin the time period is included. Extra Tube Hold for add-ons. 05/15/2025 7:31 PM EDT [facility] Comment:Auto resulted. Blood Venipuncture / Unknown 05/15/2025 7:17 PM EDT 05/15/2025 7:24 PM EDT Selene Lizarraga MD LAB BLOOD ORDER ONLY Kate l Result [facility]
[address] [place] [address], [place] [phone] * Gold Top - SST (05/15/2025 7:17 PM EDT) Only the most recent of2 resultswithin the time period is included. Extra Tube Hold for add-ons. 05/15/2025 7:31 PM EDT [facility] Comment:Auto resulted. Blood Venipuncture / Unknown 05/15/2025 7:17 PM EDT 05/15/2025 7:24 PM EDT Selene Lizarraga MD LAB BLOOD ORDER ONLY Kate l Result Performing Organization Address [facility] Co de Phone Number [facility]
[address] [place] [address], * Green Top (Gel) (05/15/2025 7:17 PM EDT) Only the most recent of2 resultswithin the time period is included. Extra Tube Hold for add-ons. 05/15/2025 7:31 PM EDT [facility] Comment:Auto resulted. Blood Venipuncture / Unknown 05/15/2025 7:17 PM EDT 05/15/2025 7:24 PM EDT Selene Lizarraga MD LAB BLOOD ORDER ONLY Kate l Result Performing Organization Address [facility] de Phone Number [facility]
[address] [place] [address], * hCG, Quantitative, (05/15/2025 7:17 PM EDT) Only the most recent of2 resultswithin the time period is included. HCG Quantitative <1.00 mIU/mL 05/15/20 7:43 PM EDT [facility] Blood Venipuncture / Unknown 05/15/2025 7:17 PM EDT 05/15/2025 7:24 PM EDT Narrative [facility] - 05/15/2025 7:43 PM [...] ORDERABLES Kate l Result Performing Organization Address City/[facility]/ZIP Co de Phone Number [facility]
[address] [place] [address], * Ethanol (05/15/2025 7:17 PM EDT) Ethanol <10 0 - 10 mg/dL 05/15/2025 7:45 PM EDT [facility] Blood Venipuncture / Unknown 05/15/2025 7:17 PM EDT 05/15/2025 7:24 PM EDT Narrative [facility] - 05/15/2025 7:45 PM EDT Not for legal purposes. Selene Lizarraga MD LAB BLOOD ORDERABLES Kate l Result Performing Organization Address City/[facility]/ZIP Co de Phone Number [facility]
[address] [place] [address], * (ABNORMAL) Comprehensive Metabolic Panel (05/15/2025 7:17 PM EDT) Only the most recent of2 resultswithin the time period is included. Glucose 107(H) 65 - 99 mg/dL 05/15/2025 7:45 PM EDT [facility] BUN 6.8 6.0 - 20.0 mg/dL 05/15/2025 7:45 PM EDT [facility] Creatinine 0.74 0.57 - 1.00 mg/dL 05/15/2025 7:45 PM EDT [facility] Sodium 139 136 - 145 mmol/L 05/15/2025 7:45 PM EDT [facility] Potassium 3.4(L) 3.5 - 5.2 mmol/L 05/15/2025 7:45 PM EDT [facility] Chloride 106 98 - 107 mmol/L 05/15/2025 7:45 PM EDT [facility] CO2 24.1 22.0 - 29.0 mmol/L 05/15/2025 7:45 PM EDT [facility] Calcium 8.9 8.6 - 10.5 mg/dL 05/15/2025 7:45 PM EDT [facility] Total Protein 7.3 6.0 - 8.5 g/dL 05/15/2025 7:45 PM EDT [facility] Albumin 4.7 3.5 - 5.2 g/dL 05/15/2025 7:45 PM EDT [facility] ALT (SGPT) 14 1 - 33 U/L 05/[facility]2025 [facility] AST (SGOT) 22 1 - 32 U/L 05/15/2025 7:45 PM EDT [facility] Alkaline Phosphatase 95 39 - 117 U/L 05/15/2025 7:45 PM EDT [facility] Total Bilirubin 0.4 0.0 - 1.2 mg/dL 05/15/2025 7:45 PM EDT [facility] Globulin 2.6 gm/dL 05/15/2025 7:45 PM [facility] Comment:Calculated Result A/G Ratio 1.8 g/dL 05/15/2025 7:45 PM EDT [facility] BUN/Creatinine Ratio 9.2 7.0 - 25.0 05/15/2025 7:45 PM EDT [facility] Anion Gap 8.9 5.0 - 15.0 mmol/L 05/15/2025 7:45 PM EDT [facility] eGFR 109.7 >60.0 mL/min/1.7 3 05/15/2025 7:45 PM EDT [facility] Blood Venipuncture / Unknown 05/15/2025 7:17 PM EDT 05/15/2025 7:24 PM EDT Narrative [facility] - 05/15/2025 7:45 PM EDT GFR [...] MD LAB BLOOD ORDERABLES Kate faulkner Result [facility]
[address] [place] [address], * (ABNORMAL) CBC Auto Differential (05/15/2025 6:52 PM EDT) Only the most recent of2 resultswithin the time period is included. WBC 7.13 3.40 - 10.80 10*3/mm3 05/15/2025 6:57 PM EDT [facility] RBC 4.03 3.77 - 5.28 10*6/mm3 05/15/2025 6:57 PM EDT [facility] Hemoglobin 11.7(L) 12.0 - 15.9 g/dL 05/15/2025 6:57 PM EDT [facility] Hematocrit 35.5 34.0 - 46.6 % 05/15/2025 6:57 PM EDT [facility] MCV 88.1 79.0 - 97.0 fL 05/15/2025 6:57 PM EDT [facility] MCH 29.0 26.6 - 33.0 pg 05/15/2025 6:57 PM EDT [facility] MCHC 33.0 31.5 - 35.7 g/dL 05/15/2025 6:57 PM EDT [facility] RDW 13.5 12.3 - 15.4 % 05/15/2025 6:57 PM EDT [facility] RDW-SD 43.9 37.0 - 54.0 fl 05/15/2025 6:57 PM EDT [facility] MPV 9.4 6.0 - 12.0 fL 05/15/2025 6:57 PM EDT [facility] Platelets 264 140 - 450 10*3/mm3 05/15/2025 6:57 PM EDT [facility] Neutrophil % 68.2 42.7 - 76.0 % 05/15/2025 6:57 PM EDT [facility] Lymphocyte % 21.0 19.6 - 45.3 % 05/15/2025 6:57 PM EDT [facility] Monocyte % 7.0 5.0 - 12.0 % 05/15/2025 6:57 PM EDT [facility] Eosinophil % 2.7 0.3 - 6.2 % 05/15/2025 6:57 PM EDT [facility] Basophil % 0.7 0.0 - 1.5 % 05/15/2025 6:57 PM EDT [facility] Immature Grans % 0.4 0.0 - 0.5 % 05/15/2025 6:57 PM EDT [facility] Neutrophils, Absolute 4.86 1.70 - 7.00 10*3/mm3 05/15/2025 6:57 PM EDT [facility] Lymphocytes, Absolute 1.50 0.70 - 3.10 10*3/mm3 05/15/2025 6:57 PM EDT [facility] Monocytes, Absolute 0.50 0.10 - 0.90 10*3/mm3 05/15/2025 6:57 PM EDT [facility] Eosinophils, Absolute 0.19 0.00 - 0.40 10*3/mm3 05/15/2025 6:57 PM EDT [facility] Basophils, Absolute 0.05 0.00 - 0.20 10*3/mm3 05/15/2025 6:57 PM EDT [facility] Immature Grans, Absolute 0.03 0.00 - 0.05 10*3/mm3 05/15/2025 6:57 PM EDT [facility] nRBC 0.0 0.0 - 0.2 /100 WBC 05/15/2025 6:57 PM EDT [facility] Blood Line / Unknown 05/15/2025 6: 52 PM EDT 05/15/2025 6:52 PM EDT Selene Lizarraga MD LAB BLOOD ORDERABLES Kate l Result Performing Organization Address City/[facility]/ZIP Co de Phone Number [facility]
[address] [place] [address], [place] [phone] * Lavender Top (05/15/2025 6:52 PM EDT) Only the most recent of2 resultswithin the time period is included. Extra Tube hold for add-on 05/15/2025 7:01 PM EDT [facility] Comment:Auto resulted Blood Line / Unknown 05/15/2025 6: 52 PM EDT 05/15/2025 6:52 PM EDT Selene Lizarraga MD LAB BLOOD ORDER ONLY Kate l Result Performing Organization Address City/[facility]/ZIP Co de Phone Number [facility]
[address] [place] [address], [place] [phone] * Light Blue Top (05/15/2025 6:52 PM EDT) Only the most recent of2 resultswithin the time period is included. Extra Tube Hold for add-ons. 05/15/2025 7:01 PM EDT [facility] Comment:Auto resulted Blood Line / Unknown 05/15/2025 6: 52 PM EDT 05/15/2025 6:52 PM EDT Selene Lizarraga MD LAB BLOOD ORDER ONLY Kate l Result [facility]
[address] [place] [address], * Telemetry Scan (05/15/2025 6:40 PM EDT) [facility] ECG ORDERABLES Final Result * POC Urine (05/15/2025 6:11 PM EDT) HCG, Urine, QL Negative [facility] Lot Number [id number] [facility] Internal Positive Control Passed [facility] Internal Negative Control Passed [facility] Expiration Date 2026-09-13 [facility] Urine 05/15/2025 6:11 PM EDT Selene Lizarraga MD POINT OF CARE TEST ORDERA BLES Final Result [facility]
[address] [place] [phone], * Urine Drug Screen - Urine, Clean Catch (05/15/2025 6:03 PM EDT) THC, Screen, Urine Negative Negative 2024 6:37 PM EDT [facility] Phencyclidine (PCP), Urine Negative Negative 05/15/2025 6:37 PM EDT [facility] Cocaine Screen, Urine Negative Negative 05/15/2025 6:37 PM EDT [facility] Methamphetamine, Ur Negative Negative 05/15 6:37 PM EDT [facility] Opiate Screen Negative Negative 05/15/2025 6:37 PM EDT [facility] Amphetamine Screen, Urine Negative Negative 05/15/2025 6:37 PM EDT [facility] Benzodiazepine Screen, Urine Negative Negative 05/15/2025 6:37 PM EDT [facility] Tricyclic Antidepressants Screen Negative Negative 05/15/2025 6:37 PM EDT [facility] Methadone Screen, Urine Negative Negative 05/15/2025 6:37 PM EDT [facility] Barbiturates Screen, Urine Negative Negative 05/15/2025 6:37 PM EDT [facility] Oxycodone Screen, Urine Negative Negative 05/15/2025 6:37 PM EDT [facility] Buprenorphine, Screen, Urine Negative Negative 05/15/2025 6:37 PM EDT [facility] Urine Urine specimen obtained by clean catch procedure / Unknown Collection / Unknown 05/15/2025 6:03 PM EDT 05/15/2025 6:25 PM EDT [facility] - 05/15/2025 6:37 PM EDT Cutoff [...] test, particularly when unconfirmed results are used. us Selene Lizarraga MD URINE ORDERABLES Final Re sult Performing Organization Address [facility]/ZIP Co de Phone Number [facility]
[address] [place] [address], * Fentanyl, Urine - Urine, Clean Catch (05/15/2025 6:03 PM EDT) Fentanyl, Urine Negative Negative 05/15/2025 7:17 PM EDT [facility] Urine Urine specimen obtained by clean catch procedure / Unknown Collection / Unknown 05/15/2025 6:03 PM EDT 05/15/2025 6:25 PM EDT [facility] - 05/15/2025 7:17 PM EDT Negative [...] Lizarraga MD URINE ORDERABLES Final Re sult Performing Organization Address [facility] Co de Phone Number [facility]
[address] [place] [address], * (ABNORMAL) Respiratory Panel PCR w/COVID-19(SARS-CoV-2) [place] In-House, MRI SPECIAL PROCEDURES TECHNOLOGIST Swab in UTM/VTM, 2 HR TAT - Swab, Nasopharynx (05/15/2025 6:02 PM EDT) ADENOVIRUS, PCR Not Detected Not Detected BIOFIRE TORCH 05/15/2025 7:22 PM EDT [facility] Coronavirus 229E Not Detected Not Detected BIOFIRE TORCH 05/15/2025 7:22 PM EDT [facility] Coronavirus HKU1 Not Detected Not Detected BIOFIRE TORCH 05/15/2025 7:22 PM EDT [facility] Coronavirus NL63 Not Detected Not Detected BIOFIRE TORCH 05/15/2025 7:22 PM EDT [facility] Coronavirus OC43 Not Detected Not Detected BIOFIRE TORCH 05/15/2025 7:22 PM EDT [facility] COVID19 Not Detected Not Detected - Ref. Range BIOFIRE TORCH 05/15/2025 7:22 PM EDT [facility] Human Metapneumovirus Not Detected Not Detected BIOFIRE TORCH 05/15/2025 7:22 PM EDT [facility] Human Rhinovirus/Enterov irus Detected(A) Not Detected BIOFIRE TOR 05/15/2025 7:22 PM EDT [facility] Influenza A PCR Not Detected Not Detected BIOFIRE TOR 05/15/2025 7:22 PM EDT [facility] Influenza B PCR Not Detected Not Detected BIOFIRE TOR 05/15/2025 7:22 PM EDT [facility] Parainfluenza Virus 1 Not Detected Not Detected BIOFIRE TOR 05/15/2025 7:22 PM EDT [facility] Parainfluenza Virus 2 Not Detected Not Detected BIOFIRE TOR 05/15/2025 7:22 PM EDT [facility] Parainfluenza Virus 3 Not Detected Not Detected BIOFIRE TOR 05/15/2025 7:22 PM EDT [facility] Parainfluenza Virus 4 Not Detected Not Detected BIOFIRE TOR 05/15/2025 7:22 PM EDT [facility] RSV, PCR Not Detected Not Detected BIOFIRE TORCH 05/15/2025 7:22 PM EDT [facility] Bordetella pertussis pcr Not Detected Not Detected BIOFIRE TORCH 05/15/2025 7:22 PM EDT [facility] Bordetella parapertussis PCR Not Detected Not Detected BIOFIRE TOR 05/15/2025 7:22 PM EDT [facility] Chlamydophila pneumoniae PCR Not Detected Not Detected BIOFIRE TORCH 05/15/2025 7:22 PM EDT [facility] Mycoplasma pneumo by PCR Not Detected Not Detected BIOFIRE TORCH 05/15/2025 7:22 PM EDT [facility] Swab Nasopharyngeal structure / Unknown Collection / Unknown 05/15/2025 6:02 PM EDT 05/15/2025 6:23 PM EDT Narrative [facility] - 05/15/2025 7:22 PM [...] MICROBIOLOGY - GENERAL OR DERABLES Final Result [facility]
[address] [place] [address], * IMAGING SCANNED (04/06/2025) Anatomical Region Laterality Modality Radiographic Isabel ging Olivia Patel DO IMG DIAGNOSTIC IMAGING OR DERABLES Final Result * LABS SCANNED (03/27/2025) Oliviaelsy Patel DO LAB BLOOD ORDERABLES Kate l Result * [...] MD 02/16/2025 5:35 PM EDT Workstation ID: [id number] Narrative 02/16/2025 5:[address] ABDOMEN [...] MD 02/16/2025 5:35 PM EDT Workstation ID: [id number] Sandra Claire MD IMG CT ORDERABLES Final Result * [...] significant change was found Confirmed by SANDRA CLAIRE ([id number]) on 02/18/2025 4:07:31 PM Referred By: Confirmed By: SANDRA CLAIRE Procedure Note Sandra Claire MD - 02/18/2025 Test Reason : Electrolyte [...] significant change was found Confirmed by SANDRA CLAIRE ([id number]) on 02/18/2025 4:07:31 PM Referred By: Confirmed By: SANDRA CLAIRE Sandra Claire MD ECG ORDERABLES Final Re sult ECG * US Non-ob Transvaginal (02/16/2025 4:40 PM EDT) Anatomical Region Laterality Modality Body Ultrasound 02/16/2025 4:42 PM EDT Impressions 02/16/2025 4:53 PM EDT 1.2.5 cm right ovarian cyst, likely physiologic. 2.Uterus appears somewhat hypervascular, nonspecific. Electronically Signed: Edil Beckford MD 02/16/2025 4:53 PM EDT Workstation ID: [id number] Narrative 02/16/2025 4:53 PM EDT DATE: February [...] MD 02/16/2025 4:53 PM EDT Workstation ID: [id number] us Sandra Claire MD IMArgelia US ORDERABLES Final Result * US Testicular or Ovarian Vascular Limited (02/16/2025 4:40 PM EDT) Anatomical Region Laterality Modality Testes, Vascular Ultrasound 02/16/2025 4:42 PM EDT Impressions 02/16/2025 4:53 PM EDT 1.2.5 cm right ovarian cyst, likely physiologic. 2.Uterus appears somewhat hypervascular, nonspecific. Electronically Signed: Edil Beckford MD 02/16/2025 4:53 PM EDT Workstation ID: [id number] Narrative 02/16/2025 4:53 PM EDT DATE: February [...] MD 02/16/2025 4:53 PM EDT Workstation ID: [id number] Sandra Claire MD IMG US ORDERABLES Final Result * TSH Rfx On Abnormal To Free T4 (02/16/2025 4:06 PM EDT) TSH 1.210 0.270 - 4.200 uIU/mL 02/16/2025 4:57 PM EDT [facility] Blood Venipuncture / Unknown 02/16/2025 4:06 PM EDT 02/16/2025 4:13 PM EDT Sandra Claire MD LAB BLOOD ORDERABLES Fin al Result [facility]
[address] [place] [address], * Procalcitonin (02/16/2025 4:06 PM EDT) Procalcitonin 0.02 0.00 - 0.25 ng/mL 02/16/2025 4:57 PM EDT [facility] Blood Venipuncture / Unknown 02/16/2025 4:06 PM EDT 02/16/2025 4:13 PM EDT Narrative [facility] - 02/16/2025 4:57 PM EDT [...] Day 4 values are available. Refer to http://www.zwfuio-zro-kqrbwskemy.com Change in PCT <=80% A decrease of [...] with severe sepsis or septic shock. Sandra Claire MD LAB BLOOD ORDERABLES Fin al Result [facility]
[address] [place] [address], * High Sensitivity Troponin T (02/16/2025 4:06 PM EDT) HS Troponin T <6 <14 ng/L 02/16/2025 5:00 PM EDT [facility] Blood Venipuncture / Unknown 02/16/2025 4:06 PM EDT 02/16/2025 4:13 PM EDT [facility] - 02/16/2025 5:00 PM EDT [...] due to an underlying chronic condition. Sandra Claire MD LAB BLOOD ORDERABLES Fin al Result Performing Organization Address City/[facility]/ZIP Co de Phone Number [facility]
[address] [place] [address], * C-reactive Protein (02/16/2025 4:06 PM EDT) C-Reactive Protein 0.32 0.00 - 0.50 mg/dL 02/16/2025 5:00 PM EDT [facility] Blood Venipuncture / Unknown 02/16/2025 4:06 PM EDT 02/16/2025 4:13 PM EDT Sandra Claire MD LAB BLOOD ORDERABLES Fin al Result Performing Organization Address [facility] Co de Phone Number [facility]
[address] [place] [address], * Phosphorus (02/16/2025 4:06 PM EDT) Phosphorus 2.9 2.5 - 4.5 mg/dL 02/16/2025 5:00 PM EDT [facility] Blood Venipuncture / Unknown 02/16/2025 4:06 PM EDT 02/16/2025 4:13 PM EDT Sandra Claire MD LAB BLOOD ORDERABLES Fin al Result Performing Organization Address City/[facility]/ZIP Co de Phone Number [facility]
[address] [place] [address], * Magnesium (02/16/2025 4:06 PM EDT) Magnesium 2.0 1.6 - 2.6 mg/dL 02/16/2025 5:01 PM EDT [facility] Blood Venipuncture / Unknown 02/16/2025 4:06 PM EDT 02/16/2025 4:13 PM EDT Sandra Claire MD LAB BLOOD ORDERABLES Fin al Result Performing Organization Address [facility] Co de Phone Number [facility]
[address] [place] [address], * Lipase (02/16/2025 4:06 PM EDT) Lipase 18 13 - 60 U/L 02/16/2025 5:00 PM EDT [facility] Blood Venipuncture / Unknown 02/16/2025 4:06 PM EDT 02/16/2025 4:13 PM EDT Sandra Claire MD LAB BLOOD ORDERABLES Fin al Result Performing Organization Address [facility] Phone Number [facility]
[address] [place] [address], [place] [phone] * Lactic Acid, Plasma (02/16/2025 4:06 PM EDT) Lactate 1.4 0.5 - 2.0 mmol/L 02/16/2025 4:52 PM EDT [facility] Comment:Falsely depressed re sults may occur on samples drawn from patients receiving N-Acetylcysteine (NAC) or Metamizole. Blood Venipuncture / Unknown 02/16/2025 4:06 PM EDT 02/16/2025 4:13 PM EDT Sandra Claire MD LAB BLOOD ORDERABLES Fin al Result Performing Organization Address [facility] de Phone Number [facility]
[address] [place] [address], [place] [phone] * (ABNORMAL) Urinalysis With Microscopic If Indicated (No Culture) - Urine, Clean Catch (02/16/2025 2:41 PM EDT) Color, UA Yellow Yellow, Straw 02/16/2025 2:51 PM EDT [facility] Appearance, UA Clear Clear 02/16/2025 2:51 PM EDT [facility] pH, UA 6.0 5.0 - 8.0 02/16/2025 2:51 PM EDT [facility] Specific [place], UA 1.026 1.001 - 1.030 02/16/2025 2:51 PM EDT [facility] Glucose, UA Negative Negative 02/16/2025 2:51 PM EDT [facility] Ketones, UA Trace(A) Negative 02/16/2025 2:51 PM EDT [facility] Bilirubin, UA Negative Negative 02/16/2025 2:51 PM EDT [facility] Blood, UA Negative Negative 02/16/2025 2:51 PM EDT [facility] Protein, UA Negative Negative 02/16/2025 2:51 PM EDT [facility] Leuk Esterase, UA Negative Negative 02/16/2025 2:51 PM EDT [facility] Nitrite, UA Negative Negative 02/16/2025 2:51 PM EDT [facility] Urobilinogen, UA 0.2 E.U./dL 0.2 - 1.0 E.U./dL 02/16/2025 2:51 PM EDT [facility] Urine Urine specimen obtained by clean catch procedure / Unknown Collection / Unknown 02/16/2025 2:41 PM EDT 02/16/2025 2:46 PM EDT Narrative [facility] - 02/16/2025 2:51 PM EDT Urine microscopic not indicated. us Sandra Claire MD URINE ORDERABLES Final R esult [facility]
[address] [place] [address], * , Urine - Urine, Clean Catch (02/16/2025 2:41 PM EDT) HCG, Urine QL Negative Negative DISK DIFFUSION 02/16/2025 3:07 PM EDT [facility] Urine Urine specimen obtained by clean catch procedure / Unknown Collection / Unknown 02/16/2025 2:41 PM EDT 02/16/2025 2:46 PM EDT Sandra Claire MD URINE ORDERABLES Final R esult [facility]
[address] [place] [address], [place] [phone] * Pap IG, HPV-hr (10/18/2020 2:06 PM EST) ThinPrep Vial Tash Jackson MD PATHOLOGY/CYTOLOGY ORDERABLES Fi nal Result Performing Organization Address City/[facility]/ZIP Co de Phone Number [facility]
[address] [place] [address], [place] [phone] * Hepatitis C Antibody (10/17/2020 2:08 PM EST) Pathologist [facility] Hepatitis C Ab Non-Reacti ve Non-Reacti ve 10/17/2020 7:29 PM EST [facility] Blood Venipuncture / Unknown 10/17/2020 2:08 PM EST 10/17/2020 2:08 PM EST Narrative [facility] - 10/17/2020 7:29 PM EST Results may be falsely decreased if patient taking Biotin. Tash Jackson MD LAB BLOOD ORDERABLES Final Resul t [facility]
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 The last day before reporting a new confirmed COVID-19 would be 12/08/20. -Alida Banda RN 09/09/2020 12/25/2020 Rhinovirus 05/15/2025 05/15/2025 Insurance [facility] Advance Directives * CPR (Attempt to Resuscitate) [...] Of Support Discussed With: Patient Care Teams Manager Chemistry Relationship Specialty Start Date End Date Michaela Sousa APRN [address] [place] [id number] PCP - General Internal Medicine 09/04/24
--- NOTE | 2025-05-18 11:35 | PC.NURSE ---
Dr Castaneda has not been into see pt yet. No orders placed. I placed Chest pain protocols at this time.
--- NOTE | 2025-05-18 11:39 | XR_ITS ---
PROCEDURE INFORMATION: Exam: XR Chest Exam date and time: 05/18/2025 12:24 PM Age: 35 years old Clinical indication: Pain; Angina pectoris; Additional info: Chest pain TECHNIQUE: Imaging protocol: Radiologic exam of the chest. Views: 1 view. COMPARISON: CR XR CHEST 2V 02/07/2024 4:44 PM FINDINGS: Lungs: Unremarkable. No consolidation. Pleural spaces: Unremarkable. No pleural effusion. No pneumothorax. Heart/Mediastinum: Unremarkable. No cardiomegaly. Bones/joints: There is a biconvex scoliosis of the thoracic spine. IMPRESSION: No acute cardiopulmonary disease.
--- NOTE | 2025-05-18 11:45 | PC.NURSE ---
Pt called out letting staff know she was in severe pain and asking for medication. Dr Castaneda notified of this and no new orders.
[2025-05-18 12:02] LABS: Hematocrit 38.2 % (37.0-47.0); Hemoglobin 12.4 g/dL (12.2-16.2); Immature Granulocytes % 0.4 %; Mean Corpuscular HGB Conc 32.5 g/dL (31.8-35.4); Mean Corpuscular Hemoglobin 28.6 pg (27.0-31.2); Mean Corpuscular Volume 88.0 fl (81-99); Nucleated Red Blood Cells % 0 %; Platelet Count 320 K/mm3 (142-424); Red Blood Count 4.34 M/mm3 (4.20-5.40); Red Cell Distribution Width-SD 44.0 fL; White Blood Count 10.5 K/mm3 (4.8-10.8)
--- NOTE | 2025-05-18 12:05 | ECG_ITS ---
APPROVED REPORT Exam: Resting ECG HR:67 bpm ECG Measurements Heart Rate 67 AXES MO 123 P 31 QRSd 84 QRS 71 QT 376 T 23 QTc 392 Conclusion SINUS RHYTHM NORMAL ECG Electronically signed by : COLBY HOYT, 05/19/2025 07:42:42
--- NOTE | 2025-05-18 12:05 | PC.NURSE ---
PA asking if he needs to See patient . Dr Castaneda stated he has seen the pt.
[2025-05-18 12:15] LABS: Albumin Level 4.9 g/dl (3.5-5.0); Chloride 110 mmol/L (98-107); Potassium 3.6 mmoL/L (3.5-5.1); Sodium 145 mmol/L (136-145)
[2025-05-18 12:16] LABS: HCG Qualitative, Serum Negative (Negative)
[2025-05-18 12:18] LABS: Alanine Aminotransferase 18 U/L (12-78); Albumin/Globulin Ratio 1.6 (1.1-1.8); Alkaline Phosphatase 95 U/L (38-126); Anion Gap 14.6 mEq/L (5-15); Aspartate Amino Transferase 29 U/L (14-36); Bilirubin,Total 0.3 mg/dl (0.2-1.3); Blood Urea Nitrogen 7 mg/dl (7-17); Carbon Dioxide 24 mmol/L (22.0-30.0); Creatinine Clearance Estimated 153 mL/min (50-200); Creatinine,Serum 0.60 mg/dl (0.52-1.04); Estimated Glomerular Filt Rate 115 ml/min (>60); GFR (African American) 139 ML/MIN (>60); Globulin 3.0 g/dL (1.3-3.2); Total Protein,Serum 7.9 g/dl (6.3-8.2)
[2025-05-18 12:19] LABS: Calcium 9.6 mg/dl (8.4-10.2); Glucose 81 mg/dl (74-100)
[2025-05-18 12:33] LABS: Troponin I < 0.01 ng/ml (0.00-0.034)
--- NOTE | 2025-05-18 13:05 | PC.NURSE ---
Pt called out asking for pain medication. Dr Murphy notified of this and urged to see pt. He presented to bedside at this time.
--- NOTE | 2025-05-18 13:17 | CT_ITS ---
PROCEDURE INFORMATION: Exam: CTA Chest With Contrast Exam date and time: 05/18/2025 1:48 PM Age: 35 years old Clinical indication: Other: Chest pain following egd TECHNIQUE: Imaging protocol: Computed tomographic angiography of the chest with contrast. Exam focused on the arteries. 3D rendering (Not supervised by radiologist): MIP and/or 3D reconstructed images were created by the technologist. Radiation optimization: All CT scans at this facility use at least one of these dose optimization techniques: automated exposure control; mA and/or kV adjustment per patient size (includes targeted exams where dose is matched to clinical indication); or iterative reconstruction. Contrast material: ISOVUE 370; Contrast volume: 80 ml; Contrast route: INTRAVENOUS (IV); COMPARISON: CR XR CHEST PORTABLE 05/18/2025 12:24 PM FINDINGS: Pulmonary arteries: Normal. No pulmonary emboli. Aorta: Unremarkable. No aortic aneurysm. No aortic dissection. Lungs: Calcified right upper lobe granuloma. Pleural spaces: Unremarkable. No pneumothorax. No pleural effusion. Heart: Unremarkable. No cardiomegaly. No pericardial effusion. Mediastinal space: No pneumomediastinum. Lymph nodes: Unremarkable. No enlarged lymph nodes. Bones/joints: Dextrocurvature of the upper to midthoracic spine and levocurvature of the mid to lower thoracic spine. Soft tissues: Unremarkable. IMPRESSION: No acute findings.
[2025-05-18] MEDS: ONDANSETRON 4MG/2ML VIAL 4 MG IV ×2 (13:19→15:52)
[2025-05-18] MEDS: BELLADONNA ALKALOIDS 60 ML ML PO (13:19)
[2025-05-18] MEDS: MORPHINE 4MG/ML SYRINGE 4 MG IV ×2 (13:25→16:00)
[2025-05-18] MEDS: 0.9 % SODIUM CHLORIDE 50 ML VIAL 40 ML IV (13:49)
[2025-05-18] MEDS: IOPAMIDOL-370 (76%);100ML BOTTLE 80 ML IV (13:50)
[2025-05-18] MEDS: SODIUM CHLORIDE 0.9% 10ML SYR (RAD ONLY) 10 ML IV (13:50)
--- NOTE | 2025-05-18 14:00 | PC.NURSE ---
Pt called out to nurse's stations stating that her chest & abd pain is severe again. She is also nauseated again. Dr Castaneda notified of this, no new orders at this time.
[2025-05-18] MEDS: LACTATED RINGERS 1000ML 1,000 ML 999 ML IV (15:49)
--- NOTE | 2025-05-18 17:32 | PC.NURSE ---
IV fluids are complete. Dr Solo notified of this. Pt also asking for home relief. Provider aware and will discuss at POC round.
[2025-05-18 18:01] LABS: Microscopic, Urine URINE MICROSCOPIC (MICROSCOPIC)
[2025-05-18 18:07] LABS: Color,Urine ORANGE (Yellow); Glucose,Urine (UA) Trace (Negative); Ketones,Urine Negative (Negative); Leukocyte Esterase,Urine Negative (Negative); PH,Urine 6.0 (5.0-8.5); Protein,Urine TRACE (Negative); Specific Gravity, Urine <= 1.005 (1.005-1.030); Urobilinogen,Urine 2.0 EU/dl (0.2)
[2025-05-18 18:08] LABS: Bilirubin,Urine Negative (Negative)
[2025-05-18 18:15] LABS: Bacteria,Urine 1+ /lpf
[2025-05-18] MEDS: OXYCODONE 5MG IMMEDIATE RELEASE TABLET 5 MG PO (18:26)
== END 2025-05-18 18:33 | disposition home or self-care (01) ==
PROVIDERS: Student in an Organized Health Care Education/Training Program; Emergency Provider Student in an Organized Health Care Education/Training Program; PCP Family Medicine
DX: R07.9 Chest pain, unspecified (principal)
CPT/HCPCS: 71045; 71275; 80053; 81001; 84484; 84703; 85025; 87086; 93005; 96361; 96374; 96375; 96376; 99285; J2270; J2405; J7120; Q9967

== ENCOUNTER 2025-06-07 18:44 | Emergency (ER) | payer OTHER, SELFPAY ==
--- OUTSIDE RECORDS SUMMARY | 2020-07-18 05:23 | XMS_ITS | Continuity of Care Document ---
Author Organization [facility] Address [address] [place] [address] Phone Care Team Providers Care Clinical Lab Assistant Name Role Phone Ramila Apodaca MD Unavailable Unavailable Procedures Procedure Date INPT.CONSULTATION/STR FWD Advance Directives Directive Yes / No Effective Date File Name No Information Encounters Encounter Description Practice Location Reason(s) For Visit Diagnoses Date Provider Providers Copied on Encounter [facility], [address], [place], [place], [id number], tel:[phone] [facility] care companion No Information 0 Paulie Mcgrath. [address], [place], [place], [id number] , [place]. tel:[phone] INPT.CONSULTA TION/STR FWD [facility], [address], [place], [place], [id number], tel:[phone] [facility] care companion No Information 9 Paulie Mcgrath. [address], [place], [place], [address] , [place]. tel:[phone] Family History Family Member Type Diagnosis Age [...]
--- OUTSIDE RECORDS SUMMARY | 2024-12-26 12:00 | XMS_ITS ---
Author Organization [facility] Address [address] [facility] [address] [place] [address] Care Team Providers Care Psychiatry Teacher Name Role Phone Chelita Jackson Unavailable [phone] Herman Seda Unavailable [phone] REASON FOR VISIT 40 weeks Social History Sex Assigned At : Social History Observation Description Sex Assigned At Female Encounters Encounter Location Date Provider Diagnosis [facility] [address] [place] [address] 12/26/2024 Seda Sutton Plan Of Treatment No Information Progress Notes * Maia KOVACSDOB:[birth year] (35 yo F)Acc No.[id number]:12/26/2024 Progress Note Patient: Dylan margret Maia Zhao Provider: Tomeka Sutton MD :1990 A ge:34 Y S ex:Female Date:12/26/2024 Address:[address] [place] [address] [id number] Subjective: * Chief Complaints: * 4 0 weeks * Electronic signature of Maureen Sutton MD on 06/07/2025 at 07:54 PM EDT Sign off status: Pending Visit Status: C ANC-PD (Cancelled Patient Delivered) * Provider: Tomeka Sutton MD Date: 0 12/26/2024 Generated for Printi ng/Faxing/eTransmitting on: 0 06/07/2025 07:54 PM EDT
--- OUTSIDE RECORDS SUMMARY | 2025-01-02 11:15 | XMS_ITS ---
Author Organization [facility] Address [address] [facility] [address] [place] [address] Care Team Providers Care Cushion Former Name Role Phone Chelita Jackson Unavailable [phone] Seda Sutton Unavailable [phone] REASON FOR VISIT 2 WK INCISION CHECK Social History Sex Assigned At : Social History Observation Description Sex Assigned At Female Encounters Encounter Location Date Provider Diagnosis [facility] [address] [facility] [address] [place] [address] 01/02/2025 Seda Sutton Plan Of Treatment No Information Progress Notes * Maia KOVACSDOB:[birth year] (35 yo F)Acc No.[id number]:01/02/2025 Progress Note Patient: Dylan margret Maia Zhao Provider: Tomeka Sutton MD :1990 A ge:34 Y S ex:Female Date:01/02/2025 Address:[address] [place] [address] [facility] Subjective: * Chief Complaints: * 2 WK INCISION CHECK * Electronic signature of Maureen Sutton MD on 06/07/2025 at 07:54 PM EDT Sign off status: Pending Visit Status: C ANC-PD (Cancelled Patient Delivered) * Provider: Tomeka Sutton MD Date: 0 01/02/2025 Generated for Printi ng/Faxing/eTransmitting on: 0 06/07/2025 07:54 PM EDT
--- OUTSIDE RECORDS SUMMARY | 2025-01-30 11:15 | XMS_ITS ---
Author Organization [facility] Address [address] [facility] [address] [place] [address] Care Team Providers Care Digital Press Operator Name Role Phone Chelita Jackson Unavailable [phone] Rafael Suttonah Unavailable [phone] REASON FOR VISIT 6 WK PP Social History Sex Assigned At : Social History Observation Description Sex Assigned At Female Encounters Encounter Location Date Provider Diagnosis [facility] [address] [facility] [address] [place] [address] 01/30/2025 Seda Sutton Plan Of Treatment No Information Progress Notes * Maia KOVACSDOB:[birth year] (35 yo F)Acc No.[id number]:01/30/2025 Progress Note Patient: Dylan kathrynshirley Maia Zhao Provider: Tomeka Sutton MD :1990 A ge:34 Y S ex:Female Date:01/30/2025 Address:[address] [place] [address] [facility] Subjective: * Chief Complaints: * 6 WK PP * Electronic signature of Maureen Sutton MD on 06/07/2025 at 07:55 PM EDT Sign off status: Pending Visit Status: C ANC-PD (Cancelled Patient Delivered) * Provider: Tomeka Sutton MD Date: 0 01/30/2025 Generated for Printi ng/Faxing/eTransmitting on: 0 06/07/2025 07:55 PM EDT
--- OUTSIDE RECORDS SUMMARY | 2025-05-15 13:30 | XMS_ITS | Encounter Summary ---
Author Organization [facility] Address [address] [place] [address] Care Team Providers Care Triage Rn Name Role Phone Michaela Sousa APRN Primary Care Provider + [phone] Reason for Referral * Diagnostic Medical (Routine) - Authorized Specialty Diagnoses / Procedures Referred By Contact Referred To Contact Gastroenterology Diagnoses Change in bowel habits Procedures DE OFFICE/OUTPATIENT NEW MODERATE MDM 45 MINUTES Leah Castillo APRN [address] [place] [address] Phone: tel: fax: [facility] [address] [place] [phone] Phone: tel: fax: Referral ID Status Reason Start Date Expiration Date Visits Requested Visits Authorized [id number] Authorized Specialty Services Required 05/15/2025 08/14/2026 1 [...] Description 05/15/2025 1:30 PM EDT Office Visit [facility] [address] [facility] [address] [place] [address] Leah Castillo, JAVASCRIPT WEB DEVELOPER [address] [facility] [address] [place] [id number] Hematemesis with nausea (Primary Dx); Change in bowel habits; Epigastric pain; Melena; Constipation, unspecified constipation type Social History Tobacco Use Types Packs/Day Years Used Date Smoking Tobacco: Never Passive Smoke Exposure: Never Smokeless Tobacco: Never Tobacco Cessation:Counseling Given: Not Answered Alcohol Use Standard Drinks/Week Comments No 0 (1 standard drink = 0.6 oz pur e alcohol) [facility] Utilities Answer Date Recorded In the past 12 months has [employer] by [employer] e electric, gas, oil, or water company [...] Date Recorded Retired Total Score 0 05/07/2021 [facility] Occupat ional Health - Occupational Stress [...] things needed for daily living? No 12/10/2024 [place] Depression Scale Answer Date Recorded [place] Depression Scale Total 2 12/22/2024 The thought [...] GED or equivalent No 12/10/2024 Preferred Language Singaporean 12/10/2024 PHQ-2 Answer Date Recorded Patient Health [...] 1:12 PM EDT Charles bowser, Generic * [place] Suicide Severity Rating Scale (Screener/Recent Self-Report) Question [...] Liver - Underwent and tubal ligation at [facility]. - Two CT scans showed mild and moderate liver enlargement, respectively. 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 05/16/[address] [facility] documented in this encounter Plan of Treatment Upcoming Encounters Date Type Department Care Team (Late st Contact Info) Description 06/28/2025 3:45 PM EDT Office Visit [facility] [address] [facility] [address] [place] [id number] Aminata Nassar MD [address] [facility] [address] [place] [address] Scheduled Referrals Name Type Priority Associated Diagnoses [...] Indicated Resolved Time COVID (History) Comment:Per regional auditor for [facility], 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 The last day before reporting a new confirmed COVID-19 would be 12/08/20. -Alida Banda RN 09/09/2020 12/25/2020 documented as of this encounter Care Teams Triage Rn Relationship Specialty Start Date End Date Michaela Sousa APRN [address] [place] [address] [facility] [id number] PCP - General Internal Medicine 09/04/24 documented as of this encounter
--- OUTSIDE RECORDS SUMMARY | 2025-05-15 18:23 | XMS_ITS | Encounter Summary ---
Author Organization [facility] Address [address] [place] [address] Care Team Providers Care Coke Burner Name Role Phone Michaela Sousa APRN Primary Care Provider + [phone] Reason for Visit * Reason Comments Vomiting Blood Encounter Details Date Type Department Care Team (Late st Contact Info) Description 05/15/2025 6:23 PM EDT - 05/15/2025 10:34 PM EDT Emergency [facility] EMERGENCY DEPARTMENT [address] [place] [id number] Selene Lizarraga MD [address] [facility] [place] [address] Acute abdominal pain (Primary Dx); History of peptic ulcer disease; Nausea and vomiting in adult Discharge Disposition: Home or Self Care Social History Tobacco Use Types Packs/Day Years Used Date Smoking Tobacco: Never Passive Smoke Exposure: Never Smokeless Tobacco: Never Alcohol Use Standard Drinks/Week Comments No 0 (1 standard drink = 0.6 oz pur e alcohol) [facility] Utilities Answer Date Recorded In the past 12 months has [employer], gas, oil, or water company threatened to [...] Date Recorded Retired Total Score 0 05/07/2021 [facility] [...] things needed for daily living? No 12/10/2024 [place] Depression Scale Answer Date Recorded [place] Depression Scale Total 2 12/22/2024 The thought [...] GED or equivalent No 12/10/2024 Preferred Language Armenian 12/10/2024 PHQ-2 Answer Date Recorded Patient Health [...] Somewhat difficult 05/15/2025 1:12 PM EDT Mychar t, Generic * [place] Suicide Severity Rating Scale (Screener/Recent Self-Report) Question [...] through Care Everywhere. * Abdominal Pain Adult (Armenian) documented in this encounter Medications at Time [...] History: Diagnosis Date Abdominal pain Adrenal insufficiency (Watts's disease) Anemia Cancer Nodule found on thyroid [...] Procedure: ESOPHAGOGASTRODUODENOSCOPY; Surgeon: Jens Morales MD; [facility]; Service: Gastroenterology; Laterality: N/A; FULGURATION ENDOMETRIOSIS 2019 (done twice) KNEE MENISCECTOMY Left LIVER BIOPSY 2017 LUMBAR SYMPATHETIC NERVE BLOCK RHINOPLASTY cheerleading, deviated [...] Description 06/28/2025 3:45 PM EDT Office Visit [facility] [address] 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, 2 HR TAT STAT [...] MD 05/15/2025 9:38 PM EDT Workstation ID: [id number] Narrative 05/15/2025 9:[address] ABDOMEN [...] MD 05/15/2025 9:38 PM EDT Workstation ID: [id number] Selene Lizarraga MD IMG CT ORDERABLES Final R esult * Type & Screen (05/15/2025 7:22 PM EDT) ABO Type O 05/15/2025 8:09 PM EDT [facility] BB LABORATORY RH type Positive 05/15/2025 8:09 PM EDT [facility] LABORATORY Antibody Screen Negative 05/15/2025 8:09 PM EDT [facility] LABORATORY T&S Expiration Date 05/18/2025 11:59:59 PM 05/15/2025 8:09 PM EDT [facility] LAB[facility] Blood Venipuncture / Unknown 05/15/2025 7:22 PM EDT 05/15/2025 7:31 PM EDT Selene Lizarraga MD BLOOD BANK TEST ORDERABLE S Edited Result - Final [facility] LABOR[facility]ORY
[address] [place] [address], * hCG, Quantitative, (05/15/2025 7:17 PM EDT) HCG Quantitative <1.00 mIU/mL 05/15/20 7:43 PM EDT [facility] LABOR[facility]ORY Blood Venipuncture / Unknown 05/15/2025 7:17 PM EDT 05/15/2025 7:24 PM EDT Narrative [facility] LABORATORY - 05/15/2025 7:43 PM EDT HCG [...] ORDERABLES Kate l Result Performing Organization Address City/[facility]/ZIP Co de Phone Number [facility] LABORATORY
[address] [place] [address], [place] [phone] * Ethanol (05/15/2025 7:17 PM EDT) Ethanol <10 0 - 10 mg/dL 05/15/2025 7:45 PM EDT [facility] Blood Venipuncture / Unknown 05/15/2025 7:17 PM EDT 05/15/2025 7:24 PM EDT Narrative [facility] LABOR[facility]ORY - 05/15/2025 7:45 PM EDT Not for legal purposes. Selene Lizarraga MD LAB BLOOD ORDERABLES Kate l Result [facility] LABORATORY
[address] [place] [address], [place] [phone] * Black Top (05/15/2025 7:17 PM EDT) Extra Tube Hold for add-ons. 05/15/2025 7:31 PM EDT [facility] Comment:Auto resulted. Blood Venipuncture / Unknown 05/15/2025 7:17 PM EDT 05/15/2025 7:24 PM EDT Selene Lizarraga MD LAB BLOOD ORDER ONLY Kate l Result Performing Organization Address City/[facility]/ZIP Co de Phone Number [facility] LABORATORY
[address] [place] [address], * Gold Top - SST (05/15/2025 7:17 PM EDT) Extra Tube Hold for add-ons. 05/15/2025 7:31 PM EDT [facility] Comment:Auto resulted. Blood Venipuncture / Unknown 05/15/2025 7:17 PM EDT 05/15/2025 7:24 PM EDT Selene Lizarraga MD LAB BLOOD ORDER ONLY Kate l Result Performing Organization Address [facility] Co de Phone Number [facility] LABORATORY
[address] [place] [address], * Green Top (Gel) (05/15/2025 7:17 PM EDT) Extra Tube Hold for add-ons. 05/15/2025 7:31 PM EDT [facility] Comment:Auto resulted. Blood Venipuncture / Unknown 05/15/2025 7:17 PM EDT 05/15/2025 7:24 PM EDT Selene Lizarraga MD LAB BLOOD ORDER ONLY Kate l Result Performing Organization Address City/[facility] Co de Phone Number [facility] LAB[facility]ORY
[address] [place] [address], * (ABNORMAL) Comprehensive Metabolic Panel (05/15/2025 7:17 PM EDT) Glucose 107(H) 65 - 99 mg/dL 05/15/2025 7:45 PM EDT [facility] BUN 6.8 6.0 - 20.0 mg/dL 05/15/2025 7:45 PM EDT [facility] Creatinine 0.74 0.57 - 1.00 mg/dL 05/15/2025 7:45 PM EDT [facility] Sodium 139 136 - 145 mmol/L 05/15/2025 7:45 PM EDT [facility] Potassium 3.4(L) 3.5 - 5.2 mmol/L 05/15/2025 7:45 PM EDT [facility] Chloride 106 98 - 107 mmol/L 05/15/2025 7:45 PM EDT [facility] CO2 24.1 22.0 - 29.0 mmol/L 05/15/2025 7:45 PM EDT [facility] Calcium 8.9 8.6 - 10.5 mg/dL 05/15/2025 7:45 PM EDT [facility] Total Protein 7.3 6.0 - 8.5 g/dL 05/15/2025 7:45 PM EDT [facility] Albumin 4.7 3.5 - 5.2 g/dL 05/15/2025 7:45 PM EDT [facility] ALT (SGPT) 14 1 - 33 U/L 05/15/2025 7:45 PM [facility] AST (SGOT) 22 1 - 32 U/L 05/15/2025 7:45 PM EDT [facility] Alkaline Phosphatase 95 39 - 117 U/L 05/15/2025 7:45 PM EDT [facility] Total Bilirubin 0.4 0.0 - 1.2 mg/dL 05/15/2025 7:45 PM EDT [facility] Globulin 2.6 gm/dL 05/15/2025 7:45 PM [facility] Comment:Calculated Result A/G Ratio 1.8 g/dL 05/15/2025 7:45 PM EDT [facility] LAB[facility] BUN/Creatinine Ratio 9.2 7.0 - 25.0 05/15/2025 7:45 PM EDT [facility] Anion Gap 8.9 5.0 - 15.0 mmol/L 05/15/2025 7:45 PM EDT [facility] LAB[facility] eGFR 109.7 >60.0 mL/min/1.7 3 05/15/2025 7:45 PM EDT [facility] LAB[facility] Blood Venipuncture / Unknown 05/15/2025 7:17 PM EDT 05/15/2025 7:24 PM EDT [facility] LABORATORY - 05/15/2025 7:45 PM EDT GFR [...] MD LAB BLOOD ORDERABLES Kate faulkner Result [facility] LABORATORY
[address] [place] [address], * (ABNORMAL) CBC Auto Differential (05/15/2025 6:52 PM EDT) WBC 7.13 3.40 - 10.80 10*3/mm3 05/15/2025 6:57 PM EDT [facility] RBC 4.03 3.77 - 5.28 10*6/mm3 05/15/2025 6:57 PM EDT [facility] Hemoglobin 11.7(L) 12.0 - 15.9 g/dL 05/15/2025 6:57 PM EDT [facility] Hematocrit 35.5 34.0 - 46.6 % 05/15/2025 6:57 PM EDT [facility] MCV 88.1 79.0 - 97.0 fL 05/15/2025 6:57 PM EDT [facility] MCH 29.0 26.6 - 33.0 pg 05/15/2025 6:57 PM EDT [facility] MCHC 33.0 31.5 - 35.7 g/dL 05/15/2025 6:57 PM EDT [facility] RDW 13.5 12.3 - 15.4 % 05/15/2025 6:57 PM EDT [facility] RDW-SD 43.9 37.0 - 54.0 fl 05/15/2025 6:57 PM EDT [facility] MPV 9.4 6.0 - 12.0 fL 05/15/2025 6:57 PM EDT [facility] Platelets 264 140 - 450 10*3/mm3 05/15/2025 6:57 PM EDT [facility] Neutrophil % 68.2 42.7 - 76.0 % 05/15/2025 6:57 PM EDT [facility] Lymphocyte % 21.0 19.6 - 45.3 % 05/15/2025 6:57 PM EDT [facility] Monocyte % 7.0 5.0 - 12.0 % 05/15/2025 6:57 PM EDT [facility] Eosinophil % 2.7 0.3 - 6.2 % 05/15/2025 6:57 PM EDT [facility] Basophil % 0.7 0.0 - 1.5 % 05/15/2025 6:57 PM EDT [facility] Immature Grans % 0.4 0.0 - 0.5 % 05/15/2025 6:57 PM EDT [facility] Neutrophils, Absolute 4.86 1.70 - 7.00 10*3/mm3 05/15/2025 6:57 PM EDT [facility] Lymphocytes, Absolute 1.50 0.70 - 3.10 10*3/mm3 05/15/2025 6:57 PM EDT [facility] Monocytes, Absolute 0.50 0.10 - 0.90 10*3/mm3 05/15/2025 6:57 PM EDT [facility] Eosinophils, Absolute 0.19 0.00 - 0.40 10*3/mm3 05/15/2025 6:57 PM EDT [facility] Basophils, Absolute 0.05 0.00 - 0.20 10*3/mm3 05/15/2025 6:57 PM EDT [facility] Immature Grans, Absolute 0.03 0.00 - 0.05 10*3/mm3 05/15/2025 6:57 PM EDT [facility] nRBC 0.0 0.0 - 0.2 /100 WBC 05/15/2025 6:57 PM EDT [facility] Blood Line / Unknown 05/15/2025 6: 52 PM EDT 05/15/2025 6:52 PM EDT Selene Lizarraga MD LAB BLOOD ORDERABLES Kate l Result [facility]
[address] [place] [address], [place] [phone] * Light Blue Top (05/15/2025 6:52 PM EDT) Extra Tube Hold for add-ons. 05/15/2025 7:01 PM EDT [facility] Comment:Auto resulted Blood Line / Unknown 05/15/2025 6: 52 PM EDT 05/15/2025 6:52 PM EDT Selene Lizarraga MD LAB BLOOD ORDER ONLY Kate l Result [facility]ORY
[address] [place] [address], [place] [phone] * Lavender Top (05/15/2025 6:52 PM EDT) Extra Tube hold for add-on 05/15/2025 7:01 PM EDT [facility] Comment:Auto resulted Blood Line / Unknown 05/15/2025 6: 52 PM EDT 05/15/2025 6:52 PM EDT Selene Lizarraga MD LAB BLOOD ORDER ONLY Kate l Result Performing Organization Address City/[facility]/ZIP Co de Phone Number [facility]
[address] [place] [address], * Telemetry Scan (05/15/2025 6:40 PM EDT) [facility] Onbase ECG ORDERABLES Final Result * POC Urine (05/15/2025 6:11 PM EDT) HCG, Urine, QL Negative [facility] Lot Number [id number] [facility] Internal Positive Control Passed [facility] Internal Negative Control Passed [facility] Expiration Date 2026-09-13 [facility] Urine 05/15/2025 6:11 PM EDT Selene Lizarraga MD POINT OF CARE TEST ORDERA BLES Final Result [facility] LAB[facility]
[address] [id number], * Fentanyl, Urine - Urine, Clean Catch (05/15/2025 6:03 PM EDT) Fentanyl, Urine Negative Negative 05/15/2025 7:17 PM EDT [facility] Urine Urine specimen obtained by clean catch procedure / Unknown Collection / Unknown 05/15/2025 6:03 PM EDT 05/15/2025 6:25 PM EDT Narrative [facility] LABOR[facility] - 05/15/2025 7:17 PM EDT Negative [...] Lizarraga MD URINE ORDERABLES Final Re sult [facility]
[address] [place] [address], * Urine Drug Screen - Urine, Clean Catch (05/15/2025 6:03 PM EDT) THC, Screen, Urine Negative Negative 2024 6:37 PM EDT [facility] Phencyclidine (PCP), Urine Negative Negative 05/15/2025 6:37 PM EDT [facility] Cocaine Screen, Urine Negative Negative 05/15/2025 6:37 PM EDT [facility] Methamphetamine, Ur Negative Negative 05/15 6:37 PM EDT [facility] Opiate Screen Negative Negative 05/15/2025 6:37 PM EDT [facility] Amphetamine Screen, Urine Negative Negative 05/15/2025 6:37 PM EDT [facility] Benzodiazepine Screen, Urine Negative Negative 05/15/2025 6:37 PM EDT [facility] Tricyclic Antidepressants Screen Negative Negative 05/15/2025 6:37 PM EDT [facility] Methadone Screen, Urine Negative Negative 05/15/2025 6:37 PM EDT [facility] Barbiturates Screen, Urine Negative Negative 05/15/2025 6:37 PM EDT [facility] Oxycodone Screen, Urine Negative Negative 05/15/2025 6:37 PM EDT [facility] Buprenorphine, Screen, Urine Negative Negative 05/15/2025 6:37 PM EDT [facility] Urine Urine specimen obtained by clean catch procedure / Unknown Collection / Unknown 05/15/2025 6:03 PM EDT 05/15/2025 6:25 PM EDT Narrative [facility] LAB[facility] - 05/15/2025 6:37 PM EDT Cutoff [...] test, particularly when unconfirmed results are used. [facility] Toñito Lizarraga MD URINE ORDERABLES Final Re sult [facility]
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 in UTM/VTM, 2 HR TAT - Swab, Nasopharynx (05/15/2025 6:02 PM EDT) ADENOVIRUS, PCR Not Detected Not Detected BIOFIRE TOR 05/15/2025 7:22 PM EDT [facility] Coronavirus 229E Not Detected Not Detected BIOFIRE TOR 05/15/2025 7:22 PM EDT [facility] Coronavirus HKU1 Not Detected Not Detected BIOFIRE TOR 05/15/2025 7:22 PM EDT [facility] Coronavirus NL63 Not Detected Not Detected BIOFIRE TOR 05/15/2025 7:22 PM EDT [facility] Coronavirus OC43 Not Detected Not Detected BIOFIRE TORCH 05/15/2025 7:22 PM EDT [facility] COVID19 Not Detected Not Detected - Ref. Range BIOFIRE TORCH 05/15/2025 7:22 PM EDT [facility] Human Metapneumovirus Not Detected Not Detected BIOFIRE TOR 05/15/2025 7:22 PM EDT [facility] Human Rhinovirus/Enterov irus Detected(A) Not Detected BIOFIRE TOR 05/15/2025 7:22 PM EDT [facility] Influenza A PCR Not Detected Not Detected BIOFIRE TOR 05/15/2025 7:22 PM EDT [facility] Influenza B PCR Not Detected Not Detected BIOFIRE TOR 05/15/2025 7:22 PM EDT [facility] Parainfluenza Virus 1 Not Detected Not Detected BIOFIRE TOR 05/15/2025 7:22 PM EDT [facility] Parainfluenza Virus 2 Not Detected Not Detected BIOFIRE TOR 05/15/2025 7:22 PM EDT [facility] Parainfluenza Virus 3 Not Detected Not Detected BIOFIRE TOR 05/15/2025 7:22 PM EDT [facility] Parainfluenza Virus 4 Not Detected Not Detected BIOFIRE TOR 05/15/2025 7:22 PM EDT [facility] RSV, PCR Not Detected Not Detected BIOFIRE TOR 05/15/2025 7:22 PM EDT [facility] Bordetella pertussis pcr Not Detected Not Detected BIOFIRE TOR 05/15/2025 7:22 PM EDT [facility] Bordetella parapertussis PCR Not Detected Not Detected BIOFIRE TOR 05/15/2025 7:22 PM EDT [facility] Chlamydophila pneumoniae PCR Not Detected Not Detected BIOFIRE TORCH 05/15/2025 7:22 PM EDT [facility] Mycoplasma pneumo by PCR Not Detected Not Detected BIOFIRE TOR 05/15/2025 7:22 PM EDT [facility] Swab Nasopharyngeal structure / Unknown Collection / Unknown 05/15/2025 6:02 PM EDT 05/15/2025 6:23 PM EDT Narrative [facility] LAB[facility] - 05/15/2025 7:22 PM EDT In [...] MICROBIOLOGY - GENERAL OR DERABLES Final Result [facility]
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 The last day before reporting a new confirmed COVID-19 would be 12/08/20. -Ailda Banda RN 09/09/2020 12/25/2020 COVID Screen (preop/placement) 05/15/2025 05/15/2025 05/15/2025 7:22 PM EDT Rhinovirus 05/15/2025 05/15/2025 documented as of this encounter Care Teams Coke Burner Relationship Specialty Start Date End Date Michaela Sousa APRN [address] [id number] [place] [id number] PCP - General Internal Medicine 09/04/24 documented as of this encounter
--- OUTSIDE RECORDS SUMMARY | 2025-05-17 06:38 | XMS_ITS | Encounter Summary ---
Author Organization [facility] Address [address] [place] [address] Care Team Providers Care Tailor Garment Fitter Name Role Phone Lars Michaela KING Primary Care Provider + [phone] Reason for Visit * Auth/Cert Specialty Diagnoses / Procedures Referred By Velia t Referred To Contact Diagnoses Hematemesis, unspecified whether nausea present Hematemesis, unspecified whether nausea present [K92.0] Procedures NE ESOPHAGOGASTRODUODENOSCOPY TRANSORAL DIAGNOSTIC ESOPHAGOGASTRODUODENOSCOPY Referral ID Status Reason Start Date Expiration Date Visits Re quested Visits Authorized [id number] 1 1 Encounter Details Date Type Department Care Team (Late st Contact Info) Description 05/17/2025 6:38 AM EDT - 05/17/2025 9:25 AM EDT Hospital Encounter [facility] ENDO SUITES [address] [place] [phone] Aminata Nassar MD 1720 [facility] [address] [address] [place] [address] Hematemesis, unspecified whether nausea present Discharge Disposition: Home or Self Care Social History Tobacco Use Types Packs/Day Years Used Date Smoking Tobacco: Never Passive Smoke Exposure: Never Smokeless Tobacco: Never Alcohol Use Standard Drinks/Week Comments No 0 (1 standard drink = 0.6 oz pur e alcohol) [place] Utilities Answer Date Recorded In the past 12 months has [employer] electric, gas, oil, or water company threatened [...] Date Recorded Retired Total Score 0 05/07/2021 [facility]at ional Health - [...] things needed for daily living? No 12/10/2024 [place] Depression Scale Answer Date Recorded [place] Depression Scale Total 2 12/22/2024 The thought [...] GED or equivalent No 12/10/2024 Preferred Language Kosovan 12/10/2024 PHQ-2 Answer Date Recorded Patient Health [...] Month) No 025 7:21 AM EDT Vicki Martell, DEEPAK 2. Non-Specific Active Suici genevieve Thoughts (Past 1 Month) No 05/17/2025 7:21 AM EDT Jarrell Martell si, RN * Calculated C-SSRS Risk Score (Lifetime/Recent) Answer Date of Assessment Author No Risk Indicated 05/17/2025 7:21 AM EDT Vicki Harrington RN * [place] Suicide Severity Rating Scale (Screener/Recent Self-Report) Question Answer Date of Assessment Author 6. Suicidal Behavior (Lifetime) No 7:21 AM EDT Vicki Martell RN documented as of this encounter Discharge Instructions * Attachments The following attachments cannot be sent through Care Everywhere. * General Anesthesia Adult Care After (Kosovan) * Upper Endoscopy Adult Care After (Kosovan) documented in this encounter Medications at Time [...] has had dark stool Source Note - JonathanLeahFERNANDO - 05/15/2025 1:30 PM EDT Images from [...] - Underwent and tubal ligation at [facility]. - Two CT scans showed mild and moderate liver enlargement, respectively. 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 - Under [facility] care for mitochondrial disorder, discharged in [...] HISTORY - and tubal ligation at [facility] - Gallbladder removal in 2009 - [...] opinion of the practitioner. Patient or patient product representative verbalized consent for the use of Ambient Listening during the visit with Leah Castillo APRN for chart documentation. 05/16/2025 Leah Castillo APRN [facility] documented in this encounter Nursing Notes * Shasha Lou RN - 05/17/2025 9:15 AM EDT Marked improvement noted, no wheezing noted on auscultation. O2 saturation reman's 100 percent on room air. * Shasha Lou, RN - 05/17/2025 9:00 AM EDT Patient with c/o throat congestion. On ausculatation bilateral expiratory wheeze noted. Dr. Michael aware, assessment completed at bedside. See MAR. Patient denies SOA. Room air saturation 100 percent with RR of 16-21. documented in this encounter Plan of Treatment Upcoming Encounters Date Type Department Care Team (Late st Contact Info) Description 06/28/2025 3:45 PM EDT Office Visit [facility] GASTROENTEROLOGY [address] [phone] Aminata Nassar MD 1720 [facility] [address] [place] [address] documented as of this encounter Procedures Procedure Name Priority Date/Time Associated Diagnosis Comments TISSUE PATHOLOGY EXAM Routine 05/17/2025 8:15 AM EDT Hematemesis, unspecified whether nausea present NE ESOPHAGOGASTRODUODENOSCOP Y TRANSORAL DIAGNOSTIC 05/17/2025 8:00 AM EDT Hematemesis, unspecified whether nausea present UPPER GI ENDOSCOPY 05/17/2025 7:55 AM EDT documented in this encounter Results * Tissue Pathology Exam (05/17/2025 8:15 AM EDT) Case Report Surgical Pathology Report Case: [id number] Authorizing Provider: Aminata Nassar MD Collected: 05/17/2025 08:15 AM Ordering Location: [facility] Received: 05/17/2025 08:58 AM ENDO SUITES Pathologist: Seda Loredo MD Specimen: Gastric, Antrum, ANTRUM BXS 05/18/2025 12:47 PM EDT [facility] Clinical Information Hematemesis, unspecified whether nausea present 05/18/2025 12:47 PM EDT [facility] Final Diagnosis GASTRIC ANTRUM: Reactive gastropathy Negative for intestinal metaplasia, dysplasia, neoplasia, malignancy No Helicobacter like organisms identified on H and E 05/18/2025 12:47 PM EDT [facility] at 1247 EDT Gross Description 1. Gastric, Antrum. Received in formalin labeled antrum BXS is a 0.3 x 0.2 x 0.2 cm single murillo tissue fragment, submitted entirely in a single cassette. LDP 05/18/2025 12:47 PM EDT [facility] Microscopic Description The slides are reviewed and demonstrate histopathologic features supporting the above rendered diagnosis. 05/18/2025 12:47 PM EDT [facility] Tissue Pyloric antrum structure / Unknown 05/17/2025 8:15 AM EDT 05/17/2025 8:58 AM EDT us Aminata Nassar MD PATHOLOGY/CYTOLOGY ORDERABLES Fi nal Result [facility]
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 The last day before reporting a new confirmed COVID-19 would be 12/08/20. -Alida Banda RN 09/09/2020 12/25/2020 Rhinovirus 05/15/2025 05/15/2025 documented as of this encounter Care Teams Tailor Garment Fitter Relationship Specialty Start Date End Date Michaela Sousa APRN [address] [address] [place] [address] PCP - General Internal Medicine 09/04/24 documented as of this encounter
--- OUTSIDE RECORDS SUMMARY | 2025-05-17 08:00 | XMS_ITS | Encounter Summary ---
Author Organization [facility] Address [address] [place] [address] Care Team Providers Care Cut Off Tender Glass Name Role Phone Lars Michaela KING Primary Care Provider + [phone] Reason for Visit * Auth/Cert Specialty Diagnoses / Procedures Referred By Velia t Referred To Contact Diagnoses Hematemesis, unspecified whether nausea present Hematemesis, unspecified whether nausea present [K92.0] Procedures [place] ESOPHAGOGASTRODUODENOSCOPY TRANSORAL DIAGNOSTIC ESOPHAGOGASTRODUODENOSCOPY Referral ID Status Reason Start Date Expiration Date Visits Re quested Visits Authorized [id number] 1 1 Encounter Details Date Type Department Care Team (Late st Contact Info) Description 05/17/2025 8:00 AM EDT - 05/17/2025 8:33 AM EDT Surgery [facility] [address] [place] [address] Aminata Nassar MD [address]20 [facility] [address] [place] [address] ESOPHAGOGASTRODUODENOSCOPY [59108 (CPT )] Social History Tobacco Use Types Packs/Day Years Used Date Smoking Tobacco: Never Passive Smoke Exposure: Never Smokeless Tobacco: Never Alcohol Use Standard Drinks/Week Comments No 0 (1 standard drink = 0.6 oz pur e alcohol) [facility] Utilities Answer Date Recorded In the past 12 months has [employer], gas, oil, or water company threatened [...] Date Recorded Retired Total Score 0 05/07/2021 [facility] - [...] things needed for daily living? No 12/10/2024 [place] Depression Scale Answer Date Recorded [place] Depression Scale Total 2 12/22/2024 The thought [...] GED or equivalent No 12/10/2024 Preferred Language Grenadian 12/10/2024 PHQ-2 Answer Date Recorded Patient Health [...] 7:21 AM EDT Vicki Harrington RN * [place] Suicide Severity Rating Scale (Screener/Recent Self-Report) Question Answer Date of Assessment Author 6. Suicidal Behavior (Lifetime) No 7:21 AM EDT Vicki Martell RN documented as of this encounter Discharge Instructions * Attachments The following attachments cannot be sent through Care Everywhere. * General Anesthesia Adult Care After (Grenadian) * Upper Endoscopy Adult Care After (Grenadian) documented in this encounter Medications at Time [...] Liver - Underwent and tubal ligation at [facility]. - Two CT scans showed mild and moderate liver enlargement, respectively. 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 - Gallbladder removal in 2009 - [...] disease; consider duodenal biopsy if warranted July 30- week off -> for colonoscopy. Follow Up: [...] opinion of the practitioner. Patient or patient contact center representative verbalized consent for the use of Ambient Listening during the visit with Leah Castillo APRN for chart documentation. 05/16/2025 Leah Castillo APRN [facility] Gastroenterology documented in this encounter Nursing Notes [...] Description 06/28/2025 3:45 PM EDT Office Visit [facility] GASTR[facility]OLOG[facility] [address] [address] Aminata Nassar MD [address] [address] documented as of this encounter Procedures Procedure Name Priority Date/Time Associated Diagnosis Comments TISSUE PATHOLOGY EXAM Routine 05/17/2025 8:15 AM EDT Hematemesis, unspecified whether nausea present ID ESOPHAGOGASTRODUODENOSCOP Y TRANSORAL DIAGNOSTIC 05/17/2025 8:00 AM EDT Hematemesis, unspecified whether nausea present UPPER GI ENDOSCOPY 05/17/2025 7:55 AM EDT documented in this encounter Results * Tissue Pathology Exam (05/17/2025 8:15 AM EDT) Case Report Surgical Pathology Report Case: [id number] Authorizing Provider: Aminata Nassar MD Collected: 05/17/2025 08:15 AM Ordering Location: [facility] Received: 05/17/2025 08:58 AM ENDO SUITES Pathologist: Seda Loredo MD Specimen: Gastric, Antrum, ANTRUM BXS 05/18/2025 12:47 PM EDT [facility] Clinical Information Hematemesis, unspecified whether nausea present 05/18/2025 12:47 PM EDT [facility] Final Diagnosis GASTRIC ANTRUM: Reactive gastropathy Negative for intestinal metaplasia, dysplasia, neoplasia, malignancy No Helicobacter like organisms identified on H and E 05/18/2025 12:47 PM EDT [facility] at 1247 EDT Gross Description 1. Gastric, Antrum. Received in formalin labeled antrum BXS is a 0.3 x 0.2 x 0.2 cm single murillo tissue fragment, submitted entirely in a single cassette. LDP 05/18/2025 12:47 PM EDT [facility] Microscopic Description The slides are reviewed and demonstrate histopathologic features supporting the above rendered diagnosis. 05/18/2025 12:47 PM EDT [facility] Tissue Pyloric antrum structure / Unknown 05/17/2025 8:15 AM EDT 05/17/2025 8:58 AM EDT us Aminata Nassar MD PATHOLOGY/CYTOLOGY ORDERABLES Fi nal Result [facility]
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 The last day before reporting a new confirmed COVID-19 would be 12/08/20. -Alida Banda RN 09/09/2020 12/25/2020 Rhinovirus 05/15/2025 05/15/2025 documented as of this encounter Care Teams Cut Off Tender Glass Relationship Specialty Start Date End Date Michaela Sousa, FERNANDO [address] [place] [address] [place] [address] PCP - General Internal Medicine 09/04/24 documented as of this encounter
--- OUTSIDE RECORDS SUMMARY | 2025-05-17 08:00 | XMS_ITS | Encounter Summary ---
Author Organization [facility] Address [address] [place] [address] Care Team Providers Care Cardiac Sonographer Name Role Phone Lars Michaela APRN Primary Care Provider + [phone] Reason for Visit * Auth/Cert Specialty Diagnoses / Procedures Referred By Gosiaac t Referred To Contact Diagnoses Hematemesis, unspecified whether nausea present Hematemesis, unspecified whether nausea present [K92.0] Procedures [place] ESOPHAGOGASTRODUODENOSCOPY TRANSORAL DIAGNOSTIC ESOPHAGOGASTRODUODENOSCOPY Referral ID Status Reason Start Date Expiration Date Visits Re quested Visits Authorized [id number] 1 1 Encounter Details Date Type Department Care Team (Late st Contact Info) Description 05/17/2025 8:00 AM EDT Anesthesia Event [facility]O SUITES [address] [place] [address] Bruno Michael MD [address] [place] [address] Anesthesia Record Procedure Summary Procedure Name Responsible [...] oz pur e alcohol) [facility] Utilities Answer Date Recorded In the past 12 months has [employer], gas, oil, or water [employer] threatened to shut off services in your [...] Date Recorded Retired Total Score 0 05/07/2021 [facility] - Occupational Stress Questionnaire Answer Date [...] things needed for daily living? No 12/10/2024 [place] Depression Scale Answer Date Recorded [place] Depression Scale Total 2 12/22/2024 The thought [...] GED or equivalent No 12/10/2024 Preferred Language Liberian 12/10/2024 PHQ-2 Answer Date Recorded Patient Health [...] Risk Indicated 05/17/2025 7:21 AM EDT Vicki Hrarington, DEEPAK * [place] Suicide Severity Rating Scale (Screener/Recent Self-Report) Question Answer Date of Assessment Author 6. Suicidal Behavior (Lifetime) No 7:21 AM EDT Vicki Martell, DEEPAK documented as of this encounter OR Notes * Anesthesia Postprocedure Evaluation - Marilee Gomez CRNA - 05/17/2025 8:31 AM EDT Patient: Maia Kovacs Procedure Summary Date: 05/17/25 Room / Location: [facility] 2 / [facility] Anesthesia Start: 799 Anesthesia Stop: 830 [...] and Staff Patient location during procedure: OR INFORMATION SYSTEMS DIRECTOR/CAA: Marilee Gomez CRNA Indications and Patient Condition [...] Cardiovascular ECG reviewed (+) hypertension (-) past [place], dysrhythmias, angina, cardiac stents ROS comment: ECG NSR ECHO 2020 EF 60% no significant valvular disease Neuro/Psych (+) headaches, psychiatric history (-) seizures, CVA GI/Hepatic/Renal/Endo (+) GERD, PUD, GI bleeding upper , liver disease (enzyme for ATP missing) history of elevated LFT (-) no renal disease, diabetes, no thyroid disorder Musculoskeletal 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 Plan discussed with INFORMATION SYSTEMS DIRECTOR. 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 The last day before reporting a new confirmed COVID-19 would be 12/08/20. -Alida Banda RN 09/09/2020 12/25/2020 Rhinovirus 05/15/2025 05/15/2025 documented as of this encounter Care Teams Cardiac Sonographer Relationship Specialty Start Date End Date Michaela Sousa APRN [address] [place] [address] [facility] [address] PCP - General Internal Medicine 09/04/24 documented as of this encounter
--- OUTSIDE RECORDS SUMMARY | 2025-06-01 15:38 | XMS_ITS | Encounter Summary ---
Author Organization [facility] Address [address] [place] [address] Care Team Providers Care Quantitative Associate Name Role Phone Michaela Sousa APRN Primary Care Provider + [phone] Reason for Visit * Reason Comments Chest Pain Encounter Details Date Type Department Care Team (Late st Contact Info) Description 06/01/2025 3:38 PM EDT - 06/01/2025 7:10 PM EDT Emergency [facility] [address] [place] [phone] Isiah Barkley MD [address] [facility] [place] [address] Chest pain, unspecified type (Primary Dx); Generalized abdominal pain; Chronic gastritis without bleeding, unspecified gastritis type Discharge Disposition: Home or Self Care Social History Tobacco Use Types Packs/Day Years Used Date Smoking Tobacco: Never Passive Smoke Exposure: Never Smokeless Tobacco: Never Alcohol Use Standard Drinks/Week Comments No 0 (1 standard drink = 0.6 oz pur e alcohol) [facility] Utilities Answer Date Recorded In the past 12 months has [employer] electric, gas, oil, or water company threatened [...] Date Recorded Retired Total Score 0 05/07/2021 [facility] [employer] [facility] [employer] - Occupational Stress [...] things needed for daily living? No 12/10/2024 Ellis Depression Scale Answer Date Recorded Ellis Depression Scale Total 2 12/22/2024 The thought [...] GED or equivalent No 12/10/2024 Preferred Language Dutch 12/10/2024 PHQ-2 Answer Date Recorded Patient Health [...] Risk Indicated 06/01/2025 6:18 PM EDT Jody Gauthier RN * [place] Suicide Severity Rating Scale (Screener/Recent Self-Report) Question Answer Date of Assessment Author 1. Wish to be (Past 1 Month) No 025 6:18 PM EDT Jody Gauthier RN 2. Non-Specific Active Suici genevieve Thoughts (Past 1 Month) No 06/01/2025 6:18 PM EDT Gwen Gauthier RN 6. Suicidal Behavior (Lifetime) No 6:18 PM EDT Jody Gauthier RN documented as of this encounter Discharge Instructions * Attachments The following attachments cannot be sent through Care Everywhere. * Gastritis Adult (Dutch) * Nonspecific Chest Pain Adult [id number] (Dutch) * Abdominal Pain Adult [id number]-Vpyo (Dutch) documented in this encounter Medications at Time [...] History: Diagnosis Date Abdominal pain Adrenal insufficiency (Sunburst's disease) Anemia Cholelithiasis Lap ignacia 2010 Elevated [...] Surgeon: Raghavendra Orozco MD; Location: [facility]; Service: Obstetrics/Gynecology; Laterality: N/A; SECTION N/A 12/10/2024 Procedure: [...] Procedure: ESOPHAGOGASTRODUODENOSCOPY; Surgeon: Jens Zuluaga MD; Location: [facility]; Service: Gastroenterology ENDOSCOPY N/A 05/12/2018 [...] TUBAL ABDOMINAL LIGATION 12/10/2024 UPPER GASTROINTESTINAL ENDOSCOPY 2010 Several GI bleed several scopes Social History [...] Component Value Units Date/Time CBC & Differential [[id number]] (Normal) Collected: 06/01/251505 Specimen: Blood Updated: 06/01/25 1531 Narrative: The following orders were created for panel order CBC & Differential. Procedure Abnormality Status --------- ------ CBC Auto Differential[[id number]] Normal Final result Please view results for these tests on the individual orders. Comprehensive Metabolic Panel [[id number]] Collected: 06/01/251505 Specimen: Blood Updated: 06/01/25 155 [...] not include race as a factor Lipase [[id number]] (Normal) Collected: 06/01/25 150 Specimen: Blood Updated: 06/01/25 1550 Lipase 17 U/L Urinalysis With Microscopic If Indicated (No Culture) - Urine, Clean Catch [[id number]] (Abnormal) Collected: 06/01/251505 Specimen: Urine, Clean Catch Updated: 06/01/251551 Color, UA Yellow Appearance, UA Clear pH, UA 6.0 Specific [place], UA 1.023 Glucose, UA Negative Ketones, UA Negative Bilirubin, UA Negative Blood, UA Small (1+) Protein, UA Negative Leuk Esterase, UA Negative Nitrite, UA Negative Urobilinogen, UA 1.0 E.U./dL hCG, Quantitative, [[id number]] Collected: 06/01/251505 Specimen: Blood Updated: 06/01/251557 HCG [...] - 58,176 mIU/mL High Sensitivity Troponin T [[id number]] (Normal) Collected: 06/01/251505 Specimen: Blood Updated: 06/01/251553 [...] an underlying chronic condition. CBC Auto Differential [[id number]] (Normal) Collected: 06/01/25 1506 Specimen: Blood Updated: [...] Urinalysis, Microscopic Only - Urine, Clean Catch [[id number]] (Abnormal) Collected: 06/01/25 1506 Specimen: Urine, Clean Catch Updated: 06/01/25 1552 RBC, UA 0-2 /HPF WBC, UA 0-2 /HPF Bacteria, UA None Seen /HPF Squamous Epithelial Cells, UA 3-6 /HPF Hyaline Casts, UA 0-2 /LPF Methodology Automated Microscopy POC Urine [[id number]] (Normal) Collected: 06/01/25 1509 Specimen: Urine Updated: 06/01/25 1510 HCG, Urine, QL Negative Lot Number [id number] Internal Positive Control Positive Internal Negative Control Negative Expiration Date 09/13/2026 High Sensitivity Troponin T 1Hr [[id number]] Collected: 06/01/25 1603 Specimen: Blood Updated: 06/01/25 [...] pain DDX gastritis, enteritis, pleurisy, pulmonary edema, VT, urinary tract infection, GI bleed Data Review/ [...] pain, less likely I also considered an VT. Labs were drawn and a CT scan [...] with a physician of their choice. FOLLOW-UP [facility] EMERGENCY [facility]PARTMENT [address] [facility] [place] [phone] If symptoms worsen Michaela Sousa, METALIZING SUPERVISOR [address] [facility] [address] [place] [address] Schedule an appointment as soon as possible for a visit Medication List No changes were made to your prescriptions during this visit. Darrell Coppola Jr., PA-C 06/01/252217 Cosigned by Isiah Barkley MD at 06/04/2025 [...] Description 06/28/2025 3:45 PM EDT Office Visit [facility] [address] [phone] Aminata Nassar MD [address] [address] documented as of this encounter Procedures Procedure [...] EDT Workstation ID: [id number] Isiah Barkley MD [facility] CT ORDERABLES Final R esult * High Sensitivity Troponin T 1Hr (06/01/2025 4:03 PM EDT) HS Troponin T <6 <14 ng/L 06/01/2025 4:45 PM EDT [facility] Troponin T Numeric Delta 06/01/2025 4:45 PM EDT [facility] Comment:Unable to calculate. Blood Line / Unknown 06/01/2025 4: 03 PM EDT 06/01/2025 4:14 PM EDT Narrative [facility] - 06/01/2025 4:45 PM EDT [...] ORDERABLES Kate l Result Performing Organization Address City/[facility] [address]/ZIP Co de Phone Number [facility]
[address] [place] [address], [place] [phone] * POC Urine (06/01/2025 3:09 PM EDT) Pathologist [facility] HCG, Urine, QL Negative [facility] Lot Number [id number] [facility] Internal Positive Control Positive [facility] Internal Negative Control Negative [facility] Expiration Date 09/13/2026 [facility] Urine 06/01/2025 3:09 PM EDT Isiah Barkley MD POINT OF CARE TEST ORDERA BLES Final Result [facility]
[address] [place] [address], [place] [phone] * (ABNORMAL) Urinalysis, Microscopic Only - Urine, Clean Catch (06/01/2025 3:06 PM EDT) RBC, UA 0-2 None Seen, 0-2 /HPF 06/01/2025 3:52 PM EDT [facility] WBC, UA 0-2 None Seen, 0-2 /HPF 06/01/2025 3:52 PM EDT [facility] Bacteria, UA None Seen None Seen /HPF 06/01/2025 3:52 PM EDT [facility] Squamous Epithelial Cells, UA 3-6(A) None Seen, 0-2 /HPF 06/01/2025 3:52 PM EDT [facility] Hyaline Casts, UA 0-2 None Seen /LPF 06/01/2025 3:52 PM EDT [facility] Methodology Automated Microscopy 06/01/2025 3:52 PM EDT [facility] Urine Urine specimen obtained by clean catch procedure / Unknown Collection / Unknown 06/01/2025 3:06 PM EDT 06/01/2025 3:43 PM EDT us Isiah Barkley MD URINE ORDERABLES Final Re sult [facility]
[address] [place] [address], * CBC Auto Differential (06/01/2025 3:06 PM EDT) WBC 7.69 3.40 - 10.80 10*3/mm3 06/01/2025 3:31 PM EDT [facility] RBC 4.55 3.77 - 5.28 10*6/mm3 06/01/2025 3:31 PM EDT [facility] Hemoglobin 13.1 12.0 - 15.9 g/dL 06/01/2025 3:31 PM EDT [facility] Hematocrit 40.5 34.0 - 46.6 % 06/01/2025 3:31 PM EDT [facility] MCV 89.0 79.0 - 97.0 fL 06/01/2025 3:31 PM EDT [facility] MCH 28.8 26.6 - 33.0 pg 06/01/2025 3:31 PM EDT [facility] MCHC 32.3 31.5 - 35.7 g/dL 06/01/2025 3:31 PM EDT [facility] RDW 13.2 12.3 - 15.4 % 06/01/2025 3:31 PM EDT [facility] RDW-SD 43.2 37.0 - 54.0 fl 06/01/2025 3:31 [facility] MPV 9.0 6.0 - 12.0 fL 06/01/2025 3:31 PM EDT [facility] Platelets 318 140 - 450 10*3/mm3 06/01/2025 3:31 [facility] Neutrophil % 65.7 42.7 - 76.0 % 06/01/2025 3:31 PM [facility] Lymphocyte % 22.8 19.6 - 45.3 % 06/01/2025 3:31 PM [facility] Monocyte % 8.5 5.0 - 12.0 % 06/01/2025 3:31 PM [facility] Eosinophil % 1.8 0.3 - 6.2 % 06/01/2025 3:31 PM [facility] Basophil % 0.7 0.0 - 1.5 % 06/01/2025 3:31 PM EDT [facility] Immature Grans % 0.5 0.0 - 0.5 % 06/01/2025 3:31 PM EDT [facility] Neutrophils, Absolute 5.06 1.70 - 7.00 10*3/mm3 06/01/2025 3:31 PM [facility] Lymphocytes, Absolute 1.75 0.70 - 3.10 10*3/mm3 06/01/2025 3:31 PM EDT [facility] Monocytes, Absolute 0.65 0.10 - 0.90 10*3/mm3 06/01/2025 3:31 PM EDT [facility] Eosinophils, Absolute 0.14 0.00 - 0.40 10*3/mm3 06/01/2025 3:31 PM EDT [facility] Basophils, Absolute 0.05 0.00 - 0.20 10*3/mm3 06/01/2025 3:31 PM EDT [facility] Immature Grans, Absolute 0.04 0.00 - 0.05 10*3/mm3 06/01/2025 3:31 PM EDT [facility] nRBC 0.0 0.0 - 0.2 /100 WBC 06/01/2025 3:31 PM EDT [facility] Blood Venipuncture / Unknown 06/01/2025 3:06 PM EDT 06/01/2025 3:25 PM EDT Isiah Barkley MD LAB BLOOD ORDERABLES Kate l Result [facility]
[address] [place] [address], [place] [phone] * Light Blue Top (06/01/2025 3:06 PM EDT) Extra Tube Hold for add-ons. 06/01/2025 3:32 PM EDT [facility] Comment:Auto resulted Blood Venipuncture / Unknown 06/01/2025 3:06 PM EDT 06/01/2025 3:25 PM EDT Isiah Barkley MD LAB BLOOD ORDER ONLY Kate l Result [facility]
[address] [place] [address], [place] [phone] * Black Top (06/01/2025 3:06 PM EDT) Extra Tube Hold for add-ons. 06/01/2025 3:32 PM EDT [facility] Comment:Auto resulted. Blood Venipuncture / Unknown 06/01/2025 3:06 PM EDT 06/01/2025 3:25 PM EDT Isiah Barkley MD LAB BLOOD ORDER ONLY Kate l Result [facility]
[address] [place] [address], * Gold Top - SST (06/01/2025 3:06 PM EDT) Extra Tube Hold for add-ons. 06/01/2025 3:32 PM EDT [facility] Comment:Auto resulted. Blood Venipuncture / Unknown 06/01/2025 3:06 PM EDT 06/01/2025 3:25 PM EDT Isiah Barkley MD LAB BLOOD ORDER ONLY Kate l Result Performing Organization Address City/[facility] [address]/ZIP Co de Phone Number [facility]
[address] [place] [address], * Lavender Top (06/01/2025 3:06 PM EDT) Extra Tube hold for add-on 06/01/2025 3:32 PM EDT [facility] Comment:Auto resulted Blood Venipuncture / Unknown 06/01/2025 3:06 PM EDT 06/01/2025 3:25 PM EDT Isiah Barkley MD LAB BLOOD ORDER ONLY Kate l Result [facility]
[address] [place] [address], * Green Top (Gel) (06/01/2025 3:06 PM EDT) [facility] Extra Tube Hold for add-ons. 06/01/2025 3:32 PM EDT [facility] Comment:Auto resulted. Blood Venipuncture / Unknown 06/01/2025 3:06 PM EDT 06/01/2025 3:25 PM EDT Isiah Barkley MD LAB BLOOD ORDER ONLY Kate l Result Performing Organization Address [facility] [address]/ZIP Co de Phone Number [facility]
[address] [place] [address], * High Sensitivity Troponin T (06/01/2025 3:06 PM EDT) [facility] HS Troponin T <6 <14 ng/L 06/01/2025 3:54 PM EDT [facility] Blood Venipuncture / Unknown 06/01/2025 3:06 PM EDT 06/01/2025 3:25 PM EDT Narrative [facility] - 06/01/2025 3:54 PM EDT [...] ORDERABLES Kate l Result Performing Organization Address City/[facility] [address]/ZIP Co de Phone Number [facility]
[address] [place] [address], * hCG, Quantitative, (06/01/2025 3:06 PM EDT) [facility] HCG Quantitative <0.10 mIU/mL 06/01/20 3:58 PM EDT [facility] Blood Venipuncture / Unknown 06/01/2025 3:06 PM EDT 06/01/2025 3:25 PM EDT Narrative [facility] - 06/01/2025 3:58 PM EDT HCG [...] Isiah Barkley MD LAB BLOOD ORDERABLES Kate faulkner Result [facility]
[address] [place] [address], * (ABNORMAL) Urinalysis With Microscopic If Indicated (No Culture) - Urine, Clean Catch (06/01/2025 3:06 PM EDT) Color, UA Yellow Yellow, Straw 06/01/2025 3:52 PM EDT [facility] Appearance, UA Clear Clear 06/01/2025 3:52 PM EDT [facility] pH, UA 6.0 5.0 - 8.0 06/01/2025 3:52 PM EDT [facility] Specific [place], UA 1.023 1.005 - 1.030 06/01/2025 3:52 PM EDT [facility] Glucose, UA Negative Negative 06/01/2025 3:52 PM EDT [facility] Ketones, UA Negative Negative 06/01/2025 3:52 PM EDT [facility] Bilirubin, UA Negative Negative 06/01/2025 3:52 PM EDT [facility] Blood, UA Small (1+)(A) Negative 06/01/2025 3:52 PM EDT [facility] Protein, UA Negative Negative 06/01/2025 3:52 PM EDT [facility] Leuk Esterase, UA Negative Negative 06/01/2025 3:52 PM EDT [facility] Nitrite, UA Negative Negative 06/01/2025 3:52 PM EDT [facility] Urobilinogen, UA 1.0 E.U./dL 0.2 - 1.0 E.U./dL 06/01/2025 3:52 PM EDT [facility] Urine Urine specimen obtained by clean catch procedure / Unknown Collection / Unknown 06/01/2025 3:06 PM EDT 06/01/2025 3:43 PM EDT Isiah Barkley MD URINE ORDERABLES Final Re sult Performing Organization Address [facility] [address]/ZIP Co de Phone Number [facility]
[address] [place] [address], * Lipase (06/01/2025 3:06 PM EDT) Lipase 17 13 - 60 U/L 06/01/2025 3:50 PM EDT [facility] Blood Venipuncture / Unknown 06/01/2025 3:06 PM EDT 06/01/2025 3:25 PM EDT Isiah Barkley MD LAB BLOOD ORDERABLES Kate l Result [facility]
[address] [place] [address], * Comprehensive Metabolic Panel (06/01/2025 3:06 PM EDT) [facility] Signature Glucose 88 65 - 99 mg/dL 06/01/2025 3:50 PM EDT [facility] BUN 9.5 6.0 - 20.0 mg/dL 06/01/2025 3:50 PM EDT [facility] Creatinine 0.71 0.57 - 1.00 mg/dL 06/01/2025 3:50 PM EDT [facility] Sodium 140 136 - 145 mmol/L 06/01/2025 3:50 PM EDT [facility] Potassium 3.5 3.5 - 5.2 mmol/L 06/01/2025 3:50 PM EDT [facility] Chloride 103 98 - 107 mmol/L 06/01/2025 3:50 PM EDT [facility] CO2 27.0 22.0 - 29.0 mmol/L 06/01/2025 3:50 PM EDT [facility] Calcium 9.4 8.6 - 10.5 mg/dL 06/01/2025 3:50 PM EDT [facility] Total Protein 7.7 6.0 - 8.5 g/dL 06/01/2025 3:50 PM EDT [facility] Albumin 4.9 3.5 - 5.2 g/dL 06/01/2025 3:50 PM EDT [facility] ALT (SGPT) 13 1 - 33 U/L 06/01/2025 3:50 PM EDT [facility] AST (SGOT) 17 1 - 32 U/L 06/01/2025 3:50 PM EDT [facility] Alkaline Phosphatase 117 39 - 117 U/L 06/01/2025 3:50 PM EDT [facility] Total Bilirubin 0.2 0.0 - 1.2 mg/dL 06/01/2025 3:50 PM EDT [facility] Globulin 2.8 gm/dL 06/01/2025 3:50 PM EDT [facility] Comment:Calculated Result A/G Ratio 1.8 g/dL 06/01/2025 3:50 PM EDT [facility] BUN/Creatinine Ratio 13.4 7.0 - 25.0 06/01/2025 3:50 PM EDT [facility] Anion Gap 10.0 5.0 - 15.0 mmol/L 06/01/2025 3:50 PM EDT [facility] eGFR 115.3 >60.0 mL/min/1.7 3 06/01/2025 3:50 PM EDT [facility] Blood Venipuncture / Unknown 06/01/2025 3:06 PM EDT 06/01/2025 3:25 PM EDT Narrative [facility] - 06/01/2025 3:50 PM EDT GFR [...] MD LAB BLOOD ORDERABLES Kate l Result [facility]
[address] [place] [address], * ECG 12 Lead Chest Pain (06/01/2025 2:40 PM EDT) QT Interval 392 ms ECG QTC Interval 435 ms ECG 06/01/2025 [...] On Wed06/01/25 at 1504, For 1 dose 1609 (New Bag - Prov ider: Roque Romero RN)1709 (Stopped - Provider: Jody Gauthier RN) PRN Medication Order 05/30/2025 05/31/2025 06/01/2025 Sodium Chloride (PF) 0.9 % 10 mL 10 mL, Intravenous, As Needed, Line Care, Starting on Wed06/01/25 at 1437 documented in this encounter Additional Health Concerns Infection Onset Date Last Indicated Resolved Time COVID (History) Comment:Per regional pre planning advisor for [employer] 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 The last day before reporting a new confirmed COVID-19 would be 12/08/20. -Alida Banda RN 09/09/2020 12/25/2020 Rhinovirus 05/15/2025 05/15/2025 documented as of this encounter Care Teams Quantitative Associate Relationship Specialty Start Date End Date Michaela Sousa APRN [address] [place] [address] F[place] MOLINA [address] PCP - General Internal Medicine 09/04/24 documented as of this encounter
[2025-06-07 19:37] VITALS: BP 131/78; PULSE 75; RESP 16; TEMP 36.6; O2SAT 100; BMI 23.3
--- OUTSIDE RECORDS SUMMARY | 2025-06-07 19:54 | XMS_ITS | Encounter Summary ---
Author Organization [facility] Address [address] [place] [address] Care Team Providers Care Route Manager Name Role Phone Michaela Sousa APRN Primary Care Provider + [phone] Encounter Details Date Type Department Care Team (Late st Contact Info) Description 05/16/2025 Prep for Surgery [facility] ORDERS ONLY [address] [place] [address] Aminata Nassar MD [address] [phone] Hematemesis, unspecified whether nausea present (Primary Dx) Social History Tobacco Use Types Packs/Day Years Used Date Smoking Tobacco: Never Passive Smoke Exposure: Never Smokeless Tobacco: Never Alcohol Use Standard Drinks/Week Comments No 0 (1 standard drink = 0.6 oz pur e alcohol) [facility] Utilities Answer Date Recorded In the past 12 months has [employer], gas, oil, or water [employer] threatened to shut off services in your [...] Date Recorded Retired Total Score 0 05/07/2021 [facility] - Occupational Stress Questionnaire Answer Date [...] things needed for daily living? No 12/10/2024 [place] Depression Scale Answer Date Recorded [place] Depression Scale Total 2 12/22/2024 The thought [...] GED or equivalent No 12/10/2024 Preferred Language Salvadorean 12/10/2024 PHQ-2 Answer Date Recorded Patient Health [...] Description 06/28/2025 3:45 PM EDT Office Visit [facility] [address] [address] Aminata Nassar MD [address] [address] documented as of this encounter Visit Diagnoses Diagnosis Hematemesis, unspecified whether nausea present- Primary documented in this encounter Additional Health Concerns Infection Onset Date Last Indicated Resolved Time COVID (History) Comment:Per regional chicken hanger for [facility] 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 The last day before reporting a new confirmed COVID-19 would be 12/08/20. -Alida Banda RN 09/09/2020 12/25/2020 Rhinovirus 05/15/2025 05/15/2025 documented as of this encounter Care Teams Route Manager Relationship Specialty Start Date End Date Michaela Sousa APRN [address] [address] [place], [place] [id number] PCP - General Internal Medicine 09/04/24 documented as of this encounter
--- OUTSIDE RECORDS SUMMARY | 2025-06-07 19:54 | XMS_ITS | Encounter Summary ---
Author Organization [place] [address] Care Team Providers Care Desizing Pad Operator Name Role Phone Radha Ordaz LPN Unavailable Unav ailable Encounter Details Date Type Department Care Team (Late st Contact Info) Description 11/02/2018 Lab Requisition [facility] [place] [address] Wendy Emerson MD [address] [place] [phone] Other specified abnormal findings of blood [...] 19.47 mcg/dL 9 5:29 PM EST PREFERRED [email or web address], [facility] Blood VENOUS BLOOD / Unknown 11/02/2018 9:45 AM EST 11/02/2018 4:09 PM EST Narrative PREFERRED [email or web address], [facility] - 11/02/2018 5:29 PM EST Normal Peak : > 20 ug/dl Wendy Emerson MD CHEMISTRY ORDERABLES Fin al Result Performing Organization Address [facility] de Phone Number [facility] [facility] [address] [place] [address] , [place] [address] * CORTISOL 30 MINUTES (11/02/2018 9:15 AM EST) Cortisol 30 Min 17.48 mcg/dL 9 5:35 PM EST [facility] Blood VENOUS BLOOD / Unknown 11/02/2018 9:15 AM EST 11/02/2018 4:09 PM EST Narrative [employer] - 11/02/2018 5:35 PM EST Normal Peak : > 20 ug/dl Wendy Emerson MD CHEMISTRY ORDERABLES Fin al Result Performing Organization Address [facility] Phone Number [facility] [address] [facility] , [place] [address] * CORTISOL BASELINE (11/02/2018 8:40 AM EST) Cortisol Baseline 10.37 mcg/dL 11/02/2018 5:35 PM EST [facility] Blood VENOUS BLOOD / Unknown 11/02/2018 8:40 AM EST 11/02/2018 4:09 PM EST Narrative [facility] - 11/02/2018 5:35 PM EST Ingestion of jose doses of biotin (>5 mg/day) taken within 8 hours of drawing blood sample can interfere with this immunoassay test. Wendy Emerson MD CHEMISTRY ORDERABLES Fin al Result Performing Organization Address [facility] de Phone Number [facility] [address] [facility] , [place] [address] documented in this encounter Visit Diagnoses Diagnosis Other specified abnormal findings of blood chemistry documented in this encounter Additional Health Concerns Assessment Noted Time PHQ-9 Depression Total Score: 2 10/07/19 19 4:43 PM EST PHQ-2 Depression Total Score: 2 10/07/19 19 4:43 PM EST documented as of this encounter Care Teams Desizing Pad Operator Relationship Specialty Start Date End Date Radha Ordaz LPN Manufacturing Cost Estimator Licensed Practical Nurse 03/15/20 04/02/20 documented as of this encounter
--- OUTSIDE RECORDS SUMMARY | 2025-06-07 19:54 | XMS_ITS | Clinical Summary ---
Author Organization [facility] Address [address] [place] [place] [address] Care Team Providers Care Rod Filler Name Role Phone SousaMichaela sheehan Juani KING Primary Care Provider [phone] Allergies Active Allergy Reactions Criticality Noted Date [...] or split. 30 tablet 3 Active B Hqzwqln-Btljpl-DL (B Complete) tablet Active pantoprazole (ProtoNix) 20 [...] declined 02/25/2023 How often do you attend voodoo or buddhist serv ices? Patient declined 02/25/2023 Do you belong to any clubs o r organizations such as voodoo groups, unions, fraternal or athletic groups, or [...] Recorded Patient Health Questionnaire-2 Score 4 03/01/2023 [facility] - Occupational Stress [...] drink first t donovan in the morning (EYE-CHIEF LIBRARIAN EXTENSION DEPARTMENT) to steady your nerves or to get [...] Health Maintenance Due Date Last Done Comments [facility]-Infant/Child/Adol SDOH Screenings 1992 [facility]-Varicella Vaccines (1 of 2 - 13+ 2-dose series) 2005 [facility]- SDOH Screenings 2010 [facility]-Adult SDOH Screenings 2010 [facility]-DTaP,Tdap,and Td Vaccines (1 - Tdap) 2011 [facility]-Hepatitis B Vaccines (1 of 3 - 19+ 3-dose series) 2011 [facility]-Pap Smear 2013 HPV Vaccines (1 - 3-dose SCDM series) 2019 [id number] Vaccine (3 - Pfizer risk series) 06/04/2021 [...] Historical Provider LAB BLOOD ORDERABLES Final R [employer] Performing Organization Address [facility] Co de Phone Number [facility] * HIV 1 & 2 Antibody/Antigen Screen (12/18/2017 5:52 AM EDT) HIV 1 Result NONREACTIVE Screening for HIV 1 and 2 antibodies is NONREACTIVE. No confirmatory testing is required. [facility] 12/18/2017 5:52 AM EDT 12/18/2017 6:28 AM EDT Historical Provider LAB BLOOD ORDERABLES Final R esult Performing Organization Address City/State/[facility] Co de Phone Number [employer] from Last 3 Months or Most Recently Relevant to Health Maintenance Insurance ANDRES Care Teams Rod Filler Relationship Specialty Start Date End Date Michaela Sousa APRN [address] [place] [address] PCP - General 07/24/21
--- OUTSIDE RECORDS SUMMARY | 2025-06-07 19:54 | XMS_ITS | Encounter Summary ---
Author Organization [place] [address] Care Team Providers Care Telecommunications Cable Jointer Name Role Phone Radha Ordaz LPN Unavailable Unav ailable Encounter Details Date Type Department Care Team (Late st Contact Info) Description 11/02/2018 Lab Requisition [facility] [place] [address] Wendy Emerson MD [address] [place] [id number] Other specified abnormal findings of blood [...] HORMONE -REF LAB (11/02/2018 8:40 AM EST) [facility] ACTH 21 6 - 58 pg/mL 11/04/2018 2:20 PM EST [employer] Comment: INTERPRETIVE INFORMATION: Adrenocorticotropic Hormone Some types of synthetic ACTH are not detected by this assay. Access complete set of age- and/or gender-specific reference intervals for this test in the [facility] Test Directory ([employer]). Performed by [facility], [address] [place] [address] www.[employer], Robert Restrepo MD, Lab. Director Blood VENOUS BLOOD / Unknown 11/02/2018 8:40 AM EST 11/02/2018 2:17 PM EST us Wendy Emerson MD CHEMISTRY ORDERABLES Fin al Result [facility] [address] [place] [address] documented in this encounter Visit Diagnoses Diagnosis Other specified abnormal findings of blood chemistry documented in this encounter Additional Health Concerns Assessment Noted Time PHQ-9 Depression Total Score: 2 10/07/19 19 4:43 PM EST PHQ-2 Depression Total Score: 2 10/07/19 19 4:43 PM EST documented as of this encounter Care Teams Telecommunications Cable Jointer Relationship Specialty Start Date End Date Radha Ordaz LPN Computer Support Technician Licensed Practical Nurse 03/15/20 04/02/20 documented as of this encounter
--- OUTSIDE RECORDS SUMMARY | 2025-06-07 19:54 | XMS_ITS | CCD ---
Author Name Interface, [facility] Address [address] [place] [address] Organization [facility] Address [address] [place] [address] Care Team Providers Care Seismograph Recorder Name Role Phone Jens Slaughter MD Unavailable Unavailable Reason for Visit SENIOR PRINCIPAL IRON DEFICIENCY Medications Date Name Route Dose Frequency Instructions Start Date End Date Status Fill Status Indication 11/02 Melaton in Oral Oral one at bedtime active 11/02 Quetiap ine Oral Oral daily active 11/02 Ferrous Sulfate Oral Oral one twice daily active 11/02 Spirono lactone Oral Oral at bedtime stopped 11/02 Potassi um Chlorid e Oral ER Tab Oral 2 in the morning active 11/02 Nitrogl ycerin Subling ual Sublingu al PRN active 11/02 Spirono lactone Oral Oral 1.5 tablets daily active 11/02 Quetiap ine Oral Oral one at bedtime active 11/02 Gabapen tin Oral Oral one twice daily active 11/02 Mariajose Oral Oral Daily Mariajose Root active 11/02 B Complex & C No.20-F olic Acid Oral 1 mg Oral Daily active 11/02 Spirono lactone Oral Oral one half tablet daily stopped Problems Diagnosis Status Date of Diagnosis Resolution Date Malabsorption syndrome (disorder) Active Iron deficiency anemia secon ra to blood loss Active Social History Date Name Value 10/13/2018 Sex Female
--- OUTSIDE RECORDS SUMMARY | 2025-06-07 19:54 | XMS_ITS | Encounter Summary ---
Author Organization [facility] [place] [facility] Address [address] [place] [address] Care Team Providers Care Manager Portable Name Role Phone Michaela Sousa APRN Primary Care Provider + [phone] Encounter Details Date Type Department Care Team (Latest Contact Info) Description 05/15/2025 Travel Social History Tobacco Use Types Packs/Day Years Used Date Smoking Tobacco: Never Passive Smoke Exposure: Never Smokeless Tobacco: Never Alcohol Use Standard Drinks/Week Comments No 0 (1 standard drink = 0.6 oz pur e alcohol) [facility] Utilities Answer Date Recorded In the past 12 months has [employer] electric, gas, oil, or water company threatened [...] Date Recorded Retired Total Score 0 05/07/2021 [facility] [place] of Occupat ional Health - Occupational Stress [...] things needed for daily living? No 12/10/2024 [place] Depression Scale Answer Date Recorded [place] Depression Scale Total 2 12/22/2024 The thought [...] GED or equivalent No 12/10/2024 Preferred Language Burundian 12/10/2024 PHQ-2 Answer Date Recorded Patient Health [...] Author Somewhat difficult 05/15/2025 1:12 PM EDT Mycalison t, Generic * [place] Suicide Severity Rating Scale (Screener/Recent Self-Report) Question [...] Description 06/28/2025 3:45 PM EDT Office Visit [facility] [address] [address] Aminata Nassar MD [address] [address] documented as of this encounter Visit Diagnoses Not on filedocumented in this encounter Additional Health Concerns Infection Onset Date Last Indicated Resolved Time COVID (History) Comment: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 The last day before reporting a new confirmed COVID-19 would be 12/08/20. -Alida Banda RN 09/09/2020 12/25/2020 COVID Screen (preop/placement) 05/15/2025 05/15/2025 05/15/2025 7:22 PM EDT Rhinovirus 05/15/2025 05/15/2025 documented as of this encounter Care Teams Manager Portable Relationship Specialty Start Date End Date Michaela Sousa APRN [address] [place] [address] [facility] [address] PCP - General Internal Medicine 09/04/24 documented as of this encounter
--- OUTSIDE RECORDS SUMMARY | 2025-06-07 19:54 | XMS_ITS | Encounter Summary ---
Author Organization [facility] [place] [facility] Address [address] [place] [address] Care Team Providers Care Director Of Midwifery/Staff Midwife Name Role Phone Michaela Sousa APRN Primary Care Provider + [phone] Reason for Visit * Reason Onset Date Comments Advice Only 03/08/2025 Encounter Details Date Type Department Care Team (Late st Contact Info) Description 03/08/2025 Telephone [facility] [address] [address] Aminata Nassar MD [address] [address] Advice Only Social History Tobacco Use Types Packs/Day Years Used Date Smoking Tobacco: Never Passive Smoke Exposure: Never Smokeless Tobacco: Never Alcohol Use Standard Drinks/Week Comments No 0 (1 standard drink = 0.6 oz pur e alcohol) [facility] Utilities Answer Date Recorded In the past 12 months has [employer], oil, or water [employer] threatened to shut off services in your [...] Date Recorded Retired Total Score 0 05/07/2021 [facility] [place] [facility] - Occupational Stress Questionnaire Answer Date [...] things needed for daily living? No 12/10/2024 [place] Depression Scale Answer Date Recorded [place] Depression Scale Total 2 12/22/2024 The thought [...] GED or equivalent No 12/10/2024 Preferred Language Djiboutian 12/10/2024 PHQ-2 Answer Date Recorded Patient Health [...] encounter Miscellaneous Notes * Telephone Encounter - Mhai Romero RegSched Rep - 03/08/2025 2:08 PM EDT Hub staff attempted to follow warm transfer process and was unsuccessful Caller: Maia Kovacs Relationship to patient: Self Best call back number: [phone] Patient is needing: PT HAD A CT OF LIVER COMPLETED ON 02/13 AND AGAIN ON 02/23 SHOWING ENLARGED, PLEASE CALL AND ADVISE. 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 The last day before reporting a new confirmed COVID-19 would be 12/08/20. -Alida Banda RN 09/09/2020 12/25/2020 documented as of this encounter Care Teams Director Of Midwifery/Staff Midwife Relationship Specialty Start Date End Date Michaela Sousa APRN [address] [place] [address] [place] [address] PCP - General Internal Medicine 09/04/24 documented as of this encounter
--- OUTSIDE RECORDS SUMMARY | 2025-06-07 19:54 | XMS_ITS | Encounter Summary ---
Author Organization [facility] [place] [facility] Address [address] [place] [address] Care Team Providers Care Demurrage Man Name Role Phone Michaela Sousa APRN Primary Care Provider + [phone] Encounter Details Date Type Department Care Team (Latest Contact Info) Description 05/17/2025 Travel Social History Tobacco Use Types Packs/Day Years Used Date Smoking Tobacco: Never Passive Smoke Exposure: Never Smokeless Tobacco: Never Alcohol Use Standard Drinks/Week Comments No 0 (1 standard drink = 0.6 oz pur e alcohol) [facility] Utilities Answer Date Recorded In the past 12 months has [employer] electric, gas, oil, or water company threatened [...] Date Recorded Retired Total Score 0 05/07/2021 [facility] [place] of Occupat ional Health - Occupational Stress [...] things needed for daily living? No 12/10/2024 [place] Depression Scale Answer Date Recorded [place] Depression Scale Total 2 12/22/2024 The thought [...] 7:21 AM EDT Vicki Harrington RN * [place] Suicide Severity Rating Scale (Screener/Recent Self-Report) Question Answer Date of Assessment Author 6. 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 The last day before reporting a new confirmed COVID-19 would be 12/08/20. -Alida Banda RN 09/09/2020 12/25/2020 Rhinovirus 05/15/2025 05/15/2025 documented as of this encounter Care Teams Demurrage Man Relationship Specialty Start Date End Date Michaela Sousa APRN [address] [place] [address] PCP - General Internal Medicine 09/04/24 documented as of this encounter
--- OUTSIDE RECORDS SUMMARY | 2025-06-07 19:55 | XMS_ITS | Encounter Summary ---
Author Organization [facility] Address [address] [place] [address] Care Team Providers Care Information Management Specialist Name Role Phone Michaela Sousa APRN Primary Care Provider + [phone] Encounter Details Date Type Department Care Team (Late st Contact Info) Description 05/22/2025 Results Follow-Up [facility] [address] [place] [address] Aminata Nassar MD [address] [facility] [address] [place] [address] Social History Tobacco Use Types Packs/Day Years Used Date Smoking Tobacco: Never Passive Smoke Exposure: Never Smokeless Tobacco: Never Alcohol Use Standard Drinks/Week Comments No 0 (1 standard drink = 0.6 oz pur e alcohol) [facility] Utilities Answer Date Recorded In the past 12 months has [employer], gas, oil, or water [employer] threatened to shut off services in your [...] Date Recorded Retired Total Score 0 05/07/2021 [facility] - Occupational Stress Questionnaire Answer Date [...] things needed for daily living? No 12/10/2024 [place] Depression Scale Answer Date Recorded [place] Depression Scale Total 2 12/22/2024 The thought [...] GED or equivalent No 12/10/2024 Preferred Language Setswana 12/10/2024 PHQ-2 Answer Date Recorded Patient Health [...] PM EDT documented as of this encounter Progress Notes * Fatimah Sy MA - 05/23/2025 8:54 AM EDT Sent results to [employer] . documented in this encounter Plan of Treatment Upcoming Encounters Date Type Department Care Team (Late st Contact Info) Description 06/28/2025 3:45 PM EDT Office Visit [facility] [address] [address] Aminata Nassar MD [address] [phone] documented as of this encounter Visit Diagnoses Not on filedocumented in this encounter Additional Health Concerns Infection Onset Date Last Indicated Resolved Time COVID (History) Comment:[facility] internal [facility] 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 The last day before reporting a new confirmed COVID-19 would be 12/08/20. -Alida Banda RN 09/09/2020 12/25/2020 Rhinovirus 05/15/2025 05/15/2025 documented as of this encounter Care Teams Information Management Specialist Relationship Specialty Start Date End Date Michaela Sousa APRN [address] [place] [address] PCP - General Internal Medicine 09/04/24 documented as of this encounter
--- OUTSIDE RECORDS SUMMARY | 2025-06-07 19:55 | XMS_ITS | Clinical Summary ---
Author Organization [facility] Address [address] [facility], [address] [place] [address] Care Team Providers Care Photography Intern Name Role Phone Carmen Juan APRN - [...] on file Medical Devices Implanted Type Area Board Operator Device Identifier Shelf Expiration Date Model / Serial / Lot Jaw Screw Screw/Pl ate/Nail /Alban Left: Mandible Description:MRI compatible Insurance [facility] [place] [id number] Advance Directives * Full Code (Latest Code Status on File) Date Activated Date Inactivated Comments 12/10/2018 3:14 AM 12/10/2018 9:58 PM * Full Code Date Activated Date Inactivated Comments 10/08/2018 12:42 AM 10/09/2018 3:48 PM Care Teams Photography Intern Relationship Specialty Start Date End Date Carmen Juan APRN - NP [facility] [address] [place] [address] PCP - General 07/22/20
--- OUTSIDE RECORDS SUMMARY | 2025-06-07 19:55 | XMS_ITS | Encounter Summary ---
Author Organization [facility] Address [address] [place] [address] Care Team Providers Care Fisheries Diver Name Role Phone Michaela Sousa APRN Primary Care Provider + [phone] Reason for Visit * Reason Onset Date Comments Med Refill 05/31/2025 Encounter Details Date Type Department Care Team (Late st Contact Info) Description 05/31/2025 Refill [facility] [address] [address] Aminata Nassar MD [address] [place] [address] Hyperemesis gravidarum Social History Tobacco Use Types Packs/Day Years Used Date Smoking Tobacco: Never Passive Smoke Exposure: Never Smokeless Tobacco: Never Alcohol Use Standard Drinks/Week Comments No 0 (1 standard drink = 0.6 oz pur e alcohol) [facility] Utilities Answer Date Recorded In the past 12 months has [employer], gas, oil, or water [employer] threatened to shut off services in your [...] Recorded Retired Total Score 0 05/07/2021 [facility] - Occupational Stress Questionnaire [...] things needed for daily living? No 12/10/2024 [place] Depression Scale Answer Date Recorded [place] Depression Scale Total 2 12/22/2024 The thought [...] as of this encounter Functional Status * Calculated C-SSRS Risk Score (Lifetime/Recent) Answer Date of Assessment Author No Risk Indicated 06/01/2025 6:18 PM EDT Jody Gauthier, DEEPAK * [place] Suicide Severity Rating Scale (Screener/Recent Self-Report) Question Answer Date of Assessment Author 1. Wish to be (Past 1 Month) No 025 6:18 PM EDT Jody Gauthier, RN 2. Non-Specific Active Suici genevieve Thoughts (Past 1 Month) No 06/01/2025 6:18 PM EDT Gwen Gauthier RN 6. Suicidal Behavior (Lifetime) No 6:18 PM EDT Jody Gauthier, RN documented as of this encounter Miscellaneous Notes * Telephone Encounter - Fatimah Sy MA - 06/01/2025 8:05 AM EDT Rx Refill Note Requested Prescriptions Pending Prescriptions Disp Refills pantoprazole (PROTONIX) 40 MG EC tablet 180 tablet 3 Sig: Take 1 tablet by mouth 2 (Two) Times a Day. Last office visit with prescribing clinician: 08/03/2024 Last telemedicine visit with prescribing clinician: Visit date not found Next office visit with prescribing clinician: 06/28/2025 Fatimah Sy MA 06/01/25, 08:05 EDT documented in this encounter Plan of Treatment Upcoming Encounters Date Type Department Care Team (Late st Contact Info) Description 06/28/2025 3:45 PM EDT Office Visit [facility] [address] [phone] Aminata Nassar MD [address] [address] documented as of this encounter Visit Diagnoses Diagnosis Hyperemesis gravidarum Mild hyperemesis gravidarum, unspecified as to episode of care documented in this encounter Additional Health Concerns Infection Onset Date Last Indicated Resolved Time COVID (History) Comment: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 The last day before reporting a new confirmed COVID-19 would be 12/08/20. -Alida Banda RN 09/09/2020 12/25/2020 Rhinovirus 05/15/2025 05/15/2025 documented as of this encounter Care Teams Fisheries Diver Relationship Specialty Start Date End Date Michaela Sousa APRN [address] [place] [address] [address] [place] [address] PCP - General Internal Medicine 09/04/24 documented as of this encounter
--- OUTSIDE RECORDS SUMMARY | 2025-06-07 19:55 | XMS_ITS | Encounter Summary ---
Author Organization [facility] Address [address] [place] [address] Care Team Providers Care Dental Biller Name Role Phone Michaela Sousa APRN Primary Care Provider + [phone] Encounter Details Date Type Department Care Team (Late st Contact Info) Description 06/06/2025 Telephone [facility] [address] [address] Aminata Nassar MD [address] [place] [id number] Social History Tobacco Use Types Packs/Day Years Used Date Smoking Tobacco: Never Passive Smoke Exposure: Never Smokeless Tobacco: Never Alcohol Use Standard Drinks/Week Comments No 0 (1 standard drink = 0.6 oz pur e alcohol) [facility] Utilities Answer Date Recorded In the past 12 months has [facility], gas, oil, or water [employer] threatened to shut off services in your [...] Date Recorded Retired Total Score 0 05/07/2021 [facility] - Occupational Stress Questionnaire Answer Date [...] things needed for daily living? No 12/10/2024 [place] Depression Scale Answer Date Recorded [place] Depression Scale Total 2 12/22/2024 The thought [...] GED or equivalent No 12/10/2024 Preferred Language Serbian 12/10/2024 PHQ-2 Answer Date Recorded Patient Health [...] Telephone Encounter - Fatimah Sy MA - 06/06/2025 2:12 PM EDT , I call pt and advise. She will follow up with pcp about this. Are you still wanting her to [facility]. She said July but I [facility] not see [facility] she has been scheduled for this. ---- Message from Rayna Rodriguez sent at 06/06/2025 1:30 PM EDT ----- Can you let this patient know that please? ----- Message ----- From: Aminata Nassar MD Sent: 06/06/2025 8:21 AM EDT To: Rayna Ramos Please let patient know that I do not recommend EGD with her colonoscopy. Has she discussed her chest discomfort with PCP. She may want them to order a CT chest for her to check for any issues such as clot? 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 The last day before reporting a new confirmed COVID-19 would be 12/08/20. -Alida Banda RN 09/09/2020 12/25/2020 Rhinovirus 05/15/2025 05/15/2025 documented as of this encounter Care Teams Dental Biller Relationship Specialty Start Date End Date Michaela Sousa APRN [address] [place] [address] [place] [address] PCP - General Internal Medicine 09/04/24 documented as of this encounter
--- OUTSIDE RECORDS SUMMARY | 2025-06-07 19:55 | XMS_ITS | Clinical Summary ---
Author Organization [facility] Address [facility] [address] [place], [place] [address] Phone Care Team Providers Care Psychological Anthropologist Name Role Phone Unavailable Primary Care Provider [...] a complete record from that organization. b mgthzvv-B-aopui acid (NEPHROCAP) 1 mg Oral Capsule Take [...] (07/05/2020): Added automatically from request for surgery [id number] Pelvic pain 07/05/2020 Overview (07/05/2020): Added automatically from request for surgery [id number] Scoliosis of thoracic spine 03/09/2019 S/P endometrial [...] COVID-19 Vaccine (1 - 2023-2 5 season) 2025 Influenza Vaccine (#1) 2025 8, 05/28/2013 Meningococcal [...] Story LPN Medical Devices Implanted Type Area Vision Teacher Device Identifier Shelf Expiration Date Model / Serial / Lot Screw For Bridge Insurance [facility] CHO[facility] PLUS [facility] PLUS [facility] PLUS [facility] CHO[facility] PLUS [facility] CHOICE PLUS * Guarantor: Maia Kovacs Account Type Relation to Patient Date of Phone Billing Address [place] Personal Family Self Advance Directives For more information, please contact: [phone] * Full Code (Latest Code Status on [...]
--- OUTSIDE RECORDS SUMMARY | 2025-06-07 19:55 | XMS_ITS | Clinical Summary ---
Author Organization [facility] Address [address] [place] [address] Care Team Providers Care Body Finisher Name Role Phone Nonstaff, Referring Primary Care Provider +[phone] Johnnie Shearer MD Unavailable +[phone] Allergies Active Allergy Reactions Criticality Noted Date [...] 40 mg by mouth daily. Active Coenzyme K18-Fblujxr E 100-5 mg-unit Capsule Take 400 mg [...] Relation to Subscriber:Self Name:Maia Kovacs Payer ID:[id number] ([facility]) Type:PPO Address: [facility] [id number] [place] [id number] Care Teams Body Finisher Relationship Specialty Start Date End Date Nonstaff, MD [place] [address] [place] [address] PCP - General 02/16/23 Johnnie Shearer MD [address] [place], [place] [id number] Gastroenterology 02/16/23
--- OUTSIDE RECORDS SUMMARY | 2025-06-07 19:55 | XMS_ITS | Encounter Summary ---
Author Organization [facility] Address [address] [place] [address] Care Team Providers Care Underwater Roboticist Name Role Phone Michaela Sousa APRN Primary Care Provider + [phone] Encounter Details Date Type Department Care Team (Latest Contact Info) Description 06/01/2025 Travel Social History Tobacco Use Types Packs/Day Years Used Date Smoking Tobacco: Never Passive Smoke Exposure: Never Smokeless Tobacco: Never Alcohol Use Standard Drinks/Week Comments No 0 (1 standard drink = 0.6 oz pur e alcohol) [facility] Utilities Answer Date Recorded In the past 12 months has [employer] electric, gas, oil, or water company threatened [...] Date Recorded Retired Total Score 0 05/07/2021 [facility] [place] [facility] - Occupational Stress [...] things needed for daily living? No 12/10/2024 [place] Depression Scale Answer Date Recorded [place] Depression Scale Total 2 12/22/2024 The thought [...] GED or equivalent No 12/10/2024 Preferred Language Eritrean 12/10/2024 PHQ-2 Answer Date Recorded Patient Health [...] Indicated 06/01/2025 6:18 PM EDT Jody Gauthier, RN * [place] Suicide Severity Rating Scale (Screener/Recent Self-Report) Question Answer Date of Assessment Author 1. Wish to be (Past 1 Month) No 025 6:18 PM EDT Jody Gauthier, DEEPAK 2. Non-Specific Active Suici genevieve Thoughts (Past 1 Month) No 06/01/2025 6:18 PM EDT Gwen Gauthier RN 6. 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 The last day before reporting a new confirmed COVID-19 would be 12/08/20. -Alida Badna RN 09/09/2020 12/25/2020 Rhinovirus 05/15/2025 05/15/2025 documented as of this encounter Care Teams Underwater Roboticist Relationship Specialty Start Date End Date Michaela Sousa APRN [address] [place] [address] [place] [address] PCP - General Internal Medicine 09/04/24 documented as of this encounter
--- OUTSIDE RECORDS SUMMARY | 2025-06-07 19:55 | XMS_ITS | Encounter Summary ---
Author Organization [facility] Address [address] [place] [address] Care Team Providers Care Fitter'S Assistant Name Role Phone Michaela Sousa APRN Primary Care Provider + [phone] Reason for Visit * Reason Onset Date Comments Advice Only 05/18/2025 Encounter Details Date Type Department Care Team (Late st Contact Info) Description 05/18/2025 Telephone [facility] [address] [address] Aminata Nassar MD [address] [address] Advice Only Social History Tobacco Use Types Packs/Day Years Used Date Smoking Tobacco: Never Passive Smoke Exposure: Never Smokeless Tobacco: Never Alcohol Use Standard Drinks/Week Comments No 0 (1 standard drink = 0.6 oz pur e alcohol) [facility] Utilities Answer Date Recorded In the past 12 months has [employer], [employer], oil, or water [employer] threatened to shut off services in your [...] Date Recorded Retired Total Score 0 05/07/2021 [facility] - Occupational Stress Questionnaire Answer Date [...] things needed for daily living? No 12/10/2024 [place] Depression Scale Answer Date Recorded [place] Depression Scale Total 2 12/22/2024 The thought [...] GED or equivalent No 12/10/2024 Preferred Language [place] Citizen 12/10/2024 PHQ-2 Answer Date Recorded Patient Health [...] encounter Miscellaneous Notes * Telephone Encounter - Olivia Bowden MA - 05/18/2025 3:28 PM EDT Attempted to call pt back NO ANSWER LVM advised pt due to her symptoms we are gonna recommend that she go to the Emergency Room advised pt if she has any questions and or concerns she can call us back in office at [phone] and or she may send us a message through [employer]. * Telephone Encounter - Olivia Bowden MA - 05/18/2025 3:23 PM EDT Pt called in a left a voicemail stating she had procedure with Dr. Nassar on 05/17/2025. Pt called in stating that ever since procedure she has been experiencing a lot of stomach pain and difficulty breathing. Will call pt back and advise. 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 The last day before reporting a new confirmed COVID-19 would be 12/08/20. -Alida Banda RN 09/09/2020 12/25/2020 Rhinovirus 05/15/2025 05/15/2025 documented as of this encounter Care Teams Fitter'S Assistant Relationship Specialty Start Date End Date Michaela Sousa APRN [address] [place] [address] PCP - General Internal Medicine 09/04/24 documented as of this encounter
--- OUTSIDE RECORDS SUMMARY | 2025-06-07 19:55 | XMS_ITS | Patient Health Record ---
Author Organization [facility] Address [address] [place] [address] Care Team Providers Care Site Coordinator Name Role Phone Chelita Jackson Unavailable [phone] Shivam Sutton Unavailable [phone] HuyValencia Unavailable [phone] Anthony Luna Unavailable [phone] Lani Gould Unavailable [phone] Leah Acosta Unavailable [phone] Georgie Perez Unavailable [phone] Allergies Allergen (clinical drug ingredient) Drug/Non Drug [...] Obstetric Study Report Name: ROCIO KOVACS Accession/Encounter No:[id number] : 1990 Age: 34 Gender: F Study [...] 1 of 1 Imaging Center - , [facility] * OB Follow-Up Reviewed date:09/25/2024 07:57:44 AM Interpretation: Performing Lab: Notes/Report: [facility] Transabdominal Obstetric Study Report Name: ROCIO KOVACS Accession/Encounter No:[id number] : 1990 Age: 34 Gender: F Study [...] 1 of 1 Imaging Center - , [facility] *US OB Follow-Up Reviewed date:11/01/2024 03:28:29 PM Interpretation: Performing Lab: Notes/Report: [facility] Trans[facility] Report Name: ROCIO KOVACS Accession/Encounter No:[id number] : 1990 Age: 34 Gender: F Study [...] 1 of 1 Imaging Center - , [facility] CBC Reviewed date:11/01/2024 02:12:26 PM Interpretation: Performing Lab: Notes/Report: Comprehensive Metabolic Pane l (CMP) Reviewed date:11/01/2024 03:32:55 PM Interpretation:Normal Performing Lab: Notes/Report: Normal LDH Reviewed date:11/01/2024 02:11:41 PM Interpretation: Performing Lab: Notes/Report: Uric Acid, Serum Reviewed date:11/01/2024 02:12:09 PM Interpretation: Performing Lab: Notes/Report: Group B Strep by PCR w/ PCN allergy Reviewed date:11/27/2024 09:52:59 PM Interpretation:Negative Performing Lab: Notes/Report: [facility] Testing performed at: [] [facility], [address] [place] [address], [phone], , Is Support Analyst: Jean Kebede, PhD Strep Gp B GREYSON+Rflx Negative Negative N vaginal and rectal swab specimen to maximize sensitivity of intrapartum prophylaxis of GBS colonization. streptococcal (GBS) disease specify co-collection of a Reflex susceptibility testing should be performed prior to [place] [employer] Gynecologists (ACOG) guidelines [...] 11:14:29 PM Interpretation:Normal Performing Lab: Notes/Report: Normal GLUCOSE, POST 50 GM GLUCOLA Reviewed date:10/03/2024 03:01:33 PM Interpretation:passed - 82 Performing Lab: Notes/Report: GESTATIONAL GCT 82 65-139 mg/dL Lab spe cimens received at a [facility].?See result details for the performing location information. ANTIBODY SCREEN Reviewed date:10/03/2024 03:20:01 PM Interpretation:negative Performing Lab: Notes/Report: ANTIBODY SCREEN Negative Lab speci mens received at a [facility].?See result details for the performing location information. TISSUE PATHOLOGY EXAM Reviewed date:12/13/2024 01:05:40 PM Interpretation: Performing Lab: Notes/Report: LAB AP CASE REPORT Surgical Pathology Report Case: [id number] LAB AP CASE REPORT Authorizing Provider : [...] LAB AP FINAL DIAGNOSIS at [address] [facility] LAB AP GROSS DESCRIPTION 1. Fallopian Tubes, Bilateral. [facility] AP GROSS DESCRIPTION Received in formalin labeled bilateral fallopian tube are 2 intact, undesignated, fimbriated fallopian tubes averaging 9 cm long by 0.8 cm in diameter. Sectioning of each fallopian tube reveals an unremarkable stellate lumen. Cig[employer] Head Pegger sections of each tube to include the bisected fimbria and full-thickness cross-sections are submitted separately in 1 A- 1B. [facility] AP MICROSCOPIC DESCRIPTION The slides are reviewed and demonstrate histopathologic features supporting the above rendered diagnosis. Lab specimens received at a [facility].?See result details for the performing location [...] WBC Lab specimens received at a [facility].?See result details for the performing location information. CBC (NO DIFF) Reviewed date:07/26/2024 01:57:15 PM [...] 10*3/mm3 Lab specimens received at a [facility].?See result details for the performing location information. TREPONEMA PALLIDUM (SYPHILIS ) SCREENING CASCADE Reviewed date:10/04/2024 07:53:59 AM Interpretation:non reactive Performing Lab: Notes/Report: Reactive results will reflex RPR testing. TREPONEMAL AB TOTAL Non-Reactive Non-Reacti Lab specimens received at a [facility].?See result details for the performing location [...] 10*3/mm3 Lab specimens received at a [facility].?See result details for the performing location information. 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 Currently Diagnosis 1 Rectal bleeding (K62 .5) Referral Organization [facility] Referring Provider First Name Leah Referring Provider Last Name Dave Referring Provider Speciality OB - Gynec ology Referral Priority Routine Referral Appointment Date 08/03/2024 Reason skin issues in pregn paul Diagnosis 1 Skin abnormality (L9 8.9) Referral Organization [facility] Referring Provider First Name Georgie Referring [...] weeks gestation o f (Z3A.22) Referral Organization [facility] Referring Provider First [...] Domestic violence: No Do you have any orthodox, m oral, or cultural beliefs or customs that your provider should know about? No Would you object to blood products in the event of an emergency? 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 Problem History of section (167606685) History of delivery (Z98.891) Active confirmed Problem Sterilization requested (situation) (105279850) Request for sterilization (Z30.2) Active confirmed Problem Abnormal uterine bleeding (24448580384137) Abnormal uterine bleeding (N93.9) Active confirmed Problem History of hemorrhage (057989754) History of hemorrhage (Z87.59) Active confirmed Vital Signs Blood pressure diastolic 60 mm Hg 12/27/2024 Height 69 in 12/27/2024 Blood pressure systolic 118 mm Hg 12/27/2024 Weight 149.4 lbs 12/27/2024 BMI 22.06 kg/m2 12/27/2024 Encounters Encounter Location Date Provider Diagnosis [facility] [address] [facility] [address] [place] [address] 09/07/2024 Leah Acosta Encounter for supervision of other normal , second trimester Z34.82 [facility] [address] [facility] [address] [place] [address] 09/11/2024 Chelita Jackson [facility] [address] [facility] [address] [place] [address] 09/11/2024 Chelita Jackson Encounter for other screening follow-up Z36.2 [facility] [address] [facility] [address] [place] [address] 10/04/2024 [facility] [address] [place] [address] 11/30/2024 [facility] [address] [facility] [address] [place] [address] 12/01/2024 [facility] [address] [facility] [address] [place] [address] 12/13/2024 [facility] [address] [facility] [address] [place] [address] [facility] En[facility] for routin e follow-up Z39.2 [facility] [address] [place] [address] 01/10/20[facility] [address] [place] [address] 11/22/2024 [facility] [address] [place] [address] 12/12/2024 [facility] [address] [place] [address] 12/13/2024 [facility] [address] [place] [address] 12/14/2024 [facility] [address] [place] [address] 12/14/2024 [facility] [address] [place] [address] 12/14/2024 [facility] [address] [place] [address] 12/26/2024 [facility] Abnormal uterine bleeding N93.9 [facility] [address] [place] [address] 12/26/2024 [facility] [address] [place] [address] 12/28/2024 [facility] [address] [place] [address] 12/31/2024 [facility] [address] [place] [address] 01/15/2025 [facility] [address] [place] [address] 12/27/2024 Shivam Sutton Encounter for routin e follow-up Z39.2 and Encounter for screening for maternal depression Z13.32 [facility] [address] [facility] [address] [place] [address] 07/24/2024 Leah Acosta Encounter for supervision of other normal , second trimester Z34.82 ; 17 weeks gestation of Z3A.17 ; Bruising T14.8XXA ; Chronic anemia D64.9 ; History of delivery Z98.891 ; Request for sterilization Z30.2 ; History of hemorrhage Z87.59 ; Gene mutation Z15.89 ; Hx of hepatic disease Z87.19 and Excessive vomiting O21.9 [facility] [address] [facility] [address] [place] [address] 08/22/2024 Georgie Perez 22 weeks gestation o f Z3A.22 and Encounter for supervision of other normal , second trimester Z34.82 [facility] [address] [facility] [address] [place] [address] 09/18/2024 Lani Gould 28 weeks gestation o f Z3A.28 [facility] [address] [facility] [address] [place] [address] 10/03/2024 Valencia Son Encounter for supervision of other normal , third trimester Z34.83 and 28 weeks gestation of Z3A.28 [facility] [address] [facility] [address] [place] [address] 10/17/2024 Shivam Sutton 30 weeks gestation o f Z3A.30 ; Encounter for supervision of other normal , third trimester Z34.83 and Hyperemesis gravidarum O21.0 [facility] [address] [facility] [address] [place] [address] 11/01/2024 Georgie Perez Encounter for supervision of other normal , third trimester Z34.83 and 32 weeks gestation of Z3A.32 [facility] [address] [facility] [address] [place] [address] 11/14/2024 Shivam Sutton 34 weeks gestation o f Z3A.34 ; Encounter for supervision of other normal , third trimester Z34.83 and labor without delivery O60.00 [facility] [address] [facility] [address] [place] [address] 11/23/2024 [facility] Other specified screening Z36.89 [facility] [address] [facility] [address] [place] [address] 11/28/2024 Georgie Perez Encounter for supervision of other normal , third trimester Z34.83 and 36 weeks gestation of Z3A.36 [facility] [address] [facility] [address] [place] [address] 11/30/2024 [facility] 36 weeks gestation o f Z3A.36 ; Encounter for supervision of other normal , third trimester Z34.83 and Uterine contractions O47.9 [facility] [address] [facility] [address] [place] [address] 12/05/2024 [facility] 37 weeks gestation o f Z3A.37 and Encounter for supervision of other normal , third trimester Z34.83 [facility] [address] [facility] [address] [place] [address] 08/22/2024 Leah Acosta Encounter for supervision of other normal , second trimester Z34.82 [facility] [address] [facility] [address] [place] [address] 09/18/2024 Lani Gould Encounter for other screening follow-up Z36.2 [facility] [address] [facility] [address] [place] [address] 11/01/2024 Georgie Perez Encounter for supervision of other normal , third trimester Z34.83 [facility] [address] [place] [address] 12/10/2024 [facility] Assessments Encounter Date Diagnosis (ICD Code) Assessment [...] Insured Coverage Start Date Coverage End Date [facility] [address] [address] [place], [place] [id number] Rocio Kovacs Self - patient is the [...]
--- OUTSIDE RECORDS SUMMARY | 2025-06-07 19:56 | XMS_ITS | Clinical Summary ---
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 Active docusate sodium 100 MG capsule Take [...] mouth 2 (Two) Times a Day. Active pantoprazole (PROTONIX) 40 MG EC tabletIndicati ons:Hyperemesi s gravidarum Take 1 tablet by mouth 2 (Two) Times a Day. 180 tablet 3 5 Active vitamin (, CLASSIC, vitamin) tablet Take by mouth Daily. 05/15/20 25 Discontinued (Patient Reported Not Taking) pantoprazole (PROTONIX) 40 MG EC tabletIndicati ons:Hyperemesi s gravidarum Take 1 tablet by mouth 2 (Two) Times a Day. 180 tablet 3 4 05/31/20 25 Discontinued (Reorder) furosemide (Lasix) 20 MG tablet Take 1 [...] (09/28/2018): Added automatically from request for surgery [id number] RLQ abdominal pain 09/22/2018 Overview (09/28/2018): Added automatically from request for surgery [id number] B12 deficiency 09/22/2018 Overview (09/28/2018): Added automatically from request for surgery [id number] Chronic anemia 09/18/2018 Narcotic habituation, continuous 09/17/2018 Anxiety disorder 05/12/2018 Vocal cord dysfunction 05/10/2018 Stridor 2018 Respiratory distress 05/07/2018 Moderate persistent asthma with acute exacerbati on 05/07/2018 Chronic nausea 05/07/2018 Epigastric abdominal pain 05/07/2018 Overview (05/12/2018): Added automatically from request for surgery [id number] Generalized abdominal pain 12/09/2017 Resolved Problems Problem Noted Date Diagnosed Date Resolved Date ROM (rupture of membranes), premature 12/10/2024 12/10/2024 Hematemesis 05/16/2022 05/18/2022 uterine contractions in third trimester, antepartum 04/24/2021 05/17/2021 Decreased movement 02/05/2021 11/20/2020 05/17/2021 Overview (11/20/2020): cfDNA Acute dehydration 12/14/2019 10/16/2020 Influenza B 12/14/2019 10/16/2020 Drug-induced constipation 09/22/2018 Overview (09/28/2018): Added automatically from request for surgery [id number] Non-cardiac chest pain 09/17/201810/16 Hypokalemia 09/17/2018 09/19/2018 Hypomagnesemia 09/17/2018 09/19/2018 Leukocytosis 05/07/2018 05/12/2018 Elevated liver enzymes 02/27/201810/16 Intractable nausea and vomiting 02/27/2018 03/01/2018 Intractable cyclical vomiting with nausea 02/27/2018 03/01/2018 Encounters Date Type Department Care Team Description [address] [facility] [address] [address] Aminata Nassar MD 5 3:38 PM EDT - 5 7:10 PM EDT Emergency [facility] [address] [place] [address] Isiah Barkley MD Chest pain, unspecified type (Primary Dx); Generalized abdominal pain; Chronic gastritis without bleeding, unspecified gastritis type Discharge Disposition: Home or Self Care 5 Travel [address] [facility] [address] [phone] Aminata Nassar MD Hyperemesis gravidarum 5 Results Follow-Up [facility] [address] [place] [address] Aminata Nassar MD [address] [facility] [address] [address] Aminata Nassar MD Advice Only 5 8:00 AM EDT - 5 8:33 AM EDT Surgery [facility] [address] [place] [address] Aminata Nassar MD ESOPHAGOGASTRODUODENOSCOPY [63995 (CPT )] 5 8:00 AM EDT Anesthesia Event [facility] [address] [place] [address] Bruno Michael MD 5 6:38 AM EDT - 5 9:25 AM EDT Hospital Encounter [facility] [address] [place] [address] Aminata Nassar MD Hematemesis, unspecified whether nausea present Discharge Disposition: Home or Self Care 5 Travel 5 Prep for Surgery [facility] [address] [place] [address] Aminata Nassar MD Hematemesis, unspecified whether nausea present (Primary Dx) 5 6:23 PM EDT - 5 10:34 PM EDT Emergency [facility] [address] [place] [address] Isiah Barkley MD Acute abdominal pain (Primary Dx); History of peptic ulcer disease; Nausea and vomiting in adult Discharge Disposition: Home or Self Care 5 1:30 PM EDT Office Visit [facility] [address] [facility] [address] [place] [address] Leah Castillo APRN Hematemesis with nausea (Primary Dx); Change in bowel habits; Epigastric pain; Melena; Constipation, unspecified constipation type 5 Travel [address] [facility] [address] [facility] [address] [place] [address] Aminata Nassar MD Advice Only from Last 3 Months Immunizations Immunization Administration [...] drink = 0.6 oz pur e alcohol) [facility] Utilities Answer Date Recorded In the past 12 months has th e electric, gas, oil, or water company [...] Date Recorded Retired Total Score 0 05/07/2021 [facility] - Occupational Stress [...] things needed for daily living? No 12/10/2024 [place] Depression Scale Answer Date Recorded [place] Depression Scale Total 2 12/22/2024 The thought [...] GED or equivalent No 12/10/2024 Preferred Language Bahamian 12/10/2024 PHQ-2 Answer Date Recorded Patient Health [...] Mass Index 23.77 06/01/2025 2:35 PM EDT Plan of Treatment Upcoming Encounters Date Type Department Care Team (Late st Contact Info) Description 06/28/2025 3:45 PM EDT Office Visit [facility] [address] [address] MadayAminata jack MD [address] [address] Health Maintenance Due Date Last Done Comments Annual Gynecologic Pelvic an d Breast Exam 1992 Pneumococcal Vaccine 0-49 (1 of 2 - PCV) 2011 TDAP/TD VACCINES (1 - Tdap) 2011 ANNUAL PHYSICAL 12/14/2017 PAP SMEAR 10/18/2023 10/18/2020 COVID-19 Vaccine (3 - 2024-2 6 season) 2025 05/07/2021, 04/16/2021 INFLUENZA VACCINE 06/27/2025 07/15/2023, , 06/07/2018, Additional history exists HEPATITIS C SCREENING Completed 10/17/2020 , 12/08/2018, 12/10/2017 Medical Devices Implanted Type Area Rubber Thread Spooler Device Identifier Shelf Expiration Date Model / Serial / Lot Stnt Percuflx No Gw 4.8x26 - [id number] Implanted:Qty: 1 on 12/18/2022 by Raulito Lancaster MD at [facility] Stent Right: Urinary Bladder [email or web address] PATRICIA 08/19/2025 [id number] / / [id number] Procedures Procedure Name Priority Date/Time Associated Diagnosis Comments CT ABDOMEN PELVIS W WO CONTRAST STAT 06/01/2025 4:32 PM EDT HIGH SENSITIVITIY TROPONIN T 1HR STAT 06/01/2025 4:03 PM EDT POCT PEFORM URINE STAT 01/2025 3:09 PM EDT LIGHT BLUE TOP STAT 06/01/2025 3:06 PM EDT BLACK TOP STAT 06/01/2025 3:06 PM EDT GOLD TOP - SST STAT 06/01/2025 3:06 PM EDT LAVENDER TOP STAT 06/01/2025 3:06 PM EDT DK GREEN TOP STAT 06/01/2025 3:06 PM EDT CBC AND DIFFERENTIAL STAT 06/01/2025 3:06 PM EDT URINALYSIS, MICROSCOPIC ONLY STAT 01/2025 3:06 PM EDT CBC WITH AUTO DIFFERENTIAL STAT 06/01 3:06 PM EDT TROPONIN STAT 06/01/2025 3:06 PM EDT HCG, QUANTITATIVE, STAT 01/2025 3:06 PM EDT URINALYSIS W/ MICROSCOPIC IF INDICATED (NO CULTURE) STAT 06/01/2025 3:06 PM EDT LIPASE STAT 06/01/2025 3:06 PM EDT COMPREHENSIVE METABOLIC PANEL STAT 3:06 PM EDT RAINBOW DRAW STAT 06/01/2025 3:06 PM EDT ECG 12-LEAD STAT 06/01/2025 2:40 PM EDT TISSUE PATHOLOGY EXAM Routine 05/17/2025 8:15 AM EDT Hematemesis, unspecified whether nausea present ANESTHESIA INTUBATION Routine 05/17/2025 8:12 AM EDT MD ESOPHAGOGASTRODUODENOSCOP Y TRANSORAL DIAGNOSTIC 05/17/2025 8:00 AM [...] EDT RESPIRATORY PANEL PCR W/ COVID-19 (SARS-COV-2), OPTOMETRIC TECHNICIAN SWAB IN UTM/VTP, 2 HR TAT STAT 05/15/2025 6:02 PM EDT COVID PRE-OP / PRE-PROCEDURE SCREENING ORDER (NO ISOLATION) STAT 05/15/2025 6:02 PM EDT SCANNED - IMAGING 04/06/2025 SCANNED - LABS 03/27/2025 PAP IG, HPV-HR (P&C LAB) Routine 021 2:06 PM EST Less than 8 weeks gestation of HEPATITIS C ANTIBODY Routine 10/17/2020 2:08 PM EST Less than 8 weeks gestation of from Last 3 Months or Most Recently Relevant to Health Maintenance Results * CT Abdomen Pelvis With & Without Contrast (06/01/2025 4:32 PM EDT) Only the most recent of2 resultswithin the time period is included. Anatomical Region Laterality Modality Abdomen, Pelvis N/A [...] EDT Workstation ID: [id number] Isiah Barkley MD [facility] ORDERABLES Final R esult * High Sensitivity Troponin T 1Hr (06/01/2025 4:03 PM EDT) HS Troponin T <6 <14 ng/L 06/01/2025 4:45 PM EDT [facility] Troponin T Numeric Delta 06/01/2025 4:45 PM EDT [facility] Comment:Unable to calculate. Blood Line / Unknown 06/01/2025 4: 03 PM EDT 06/01/2025 4:14 PM EDT Narrative [facility] - 06/01/2025 4:45 PM EDT [...] ORDERABLES Kate l Result Performing Organization Address City/[facility]/ZIP Co de Phone Number [facility]
[address] [place] [address], [place] [phone] * POC Urine (06/01/2025 3:09 PM EDT) Only the most recent of2 resultswithin the time period is included. Pathologist [facility] HCG, Urine, QL Negative [facility] Lot Number [id number] [facility] Internal Positive Control Positive [facility] Internal Negative Control Negative [facility] Expiration Date 09/13/2026 [facility] Urine 06/01/2025 3:09 PM EDT Isiah Barkley MD POINT OF CARE TEST ORDERA BLES Final Result [facility]
[address] [place] [address], [place] [phone] * Black Top (06/01/2025 3:06 PM EDT) Only the most recent of2 resultswithin the time period is included. Pathologist [facility] Extra Tube Hold for add-ons. 06/01/2025 3:32 PM EDT [facility] Comment:Auto resulted. Blood Venipuncture / Unknown 06/01/2025 3:06 PM EDT 06/01/2025 3:25 PM EDT Isiah Barkley MD LAB BLOOD ORDER ONLY Kate l Result Performing Organization Address City/[facility]/ZIP Co de Phone Number [facility]
[address] [place] [address], * Gold Top - SST (06/01/2025 3:06 PM EDT) Only the most recent of2 resultswithin the time period is included. Extra Tube Hold for add-ons. 06/01/2025 3:32 PM EDT [facility] Comment:Auto resulted. Blood Venipuncture / Unknown 06/01/2025 3:06 PM EDT 06/01/2025 3:25 PM EDT Isiah Barkley MD LAB BLOOD ORDER ONLY Kate l Result Performing Organization Address [facility] Co de Phone Number [facility]
[address] [place] [address], * Green Top (Gel) (06/01/2025 3:06 PM EDT) Only the most recent of2 resultswithin the time period is included. Extra Tube Hold for add-ons. 06/01/2025 3:32 PM EDT [facility] Comment:Auto resulted. Blood Venipuncture / Unknown 06/01/2025 3:06 PM EDT 06/01/2025 3:25 PM EDT Isiah Barkley MD LAB BLOOD ORDER ONLY Kate l Result Performing Organization Address City/[facility] Co de Phone Number [facility]
[address] [place] [address], * (ABNORMAL) Urinalysis, Microscopic Only - Urine, Clean Catch (06/01/2025 3:06 PM EDT) RBC, UA 0-2 None Seen, 0-2 /HPF 06/01/2025 3:52 PM EDT [facility] WBC, UA 0-2 None Seen, 0-2 /HPF 06/01/2025 3:52 PM EDT [facility] Bacteria, UA None Seen None Seen /HPF 06/01/2025 3:52 PM EDT [facility] Squamous Epithelial Cells, UA 3-6(A) None Seen, 0-2 /HPF 06/01/2025 3:52 PM EDT [facility] Hyaline Casts, UA 0-2 None Seen /LPF 06/01/2025 3:52 PM EDT [facility] Methodology Automated Microscopy 06/01/2025 3:52 PM EDT [facility] Urine Urine specimen obtained by clean catch procedure / Unknown Collection / Unknown 06/01/2025 3:06 PM EDT 06/01/2025 3:43 PM EDT Isiah Barkley MD URINE ORDERABLES Final Re sult [facility]
[address] [place] [address], * (ABNORMAL) Urinalysis With Microscopic If Indicated (No Culture) - Urine, Clean Catch (06/01/2025 3:06 PM EDT) Color, UA Yellow Yellow, Straw 06/01/2025 3:52 PM EDT [facility] Appearance, UA Clear Clear 06/01/2025 3:52 PM EDT [facility] pH, UA 6.0 5.0 - 8.0 06/01/2025 3:52 PM EDT [facility] Specific Fonda, UA 1.023 1.005 - 1.030 06/01/2025 3:52 PM EDT [facility] Glucose, UA Negative Negative 06/01/2025 3:52 PM EDT [facility] Ketones, UA Negative Negative 06/01/2025 3:52 PM EDT [facility] Bilirubin, UA Negative Negative 06/01/2025 3:52 PM EDT [facility] Blood, UA Small (1+)(A) Negative 06/01/2025 3:52 PM EDT [facility] Protein, UA Negative Negative 06/01/2025 3:52 PM EDT [facility] Leuk Esterase, UA Negative Negative 06/01/2025 3:52 PM EDT [facility] Nitrite, UA Negative Negative 06/01/2025 3:52 PM EDT [facility] Urobilinogen, UA 1.0 E.U./dL 0.2 - 1.0 E.U./dL 06/01/2025 3:52 PM EDT [facility] Urine Urine specimen obtained by clean catch procedure / Unknown Collection / Unknown 06/01/2025 3:06 PM EDT 06/01/2025 3:43 PM EDT Isiah Barkley MD URINE ORDERABLES Final Re sult [facility]
[address] [place] [address], * CBC Auto Differential (06/01/2025 3:06 PM EDT) Only the most recent of2 resultswithin the time period is included. WBC 7.69 3.40 - 10.80 10*3/mm3 06/01/2025 3:31 PM EDT [facility] RBC 4.55 3.77 - 5.28 10*6/mm3 06/01/2025 3:31 PM EDT [facility] Hemoglobin 13.1 12.0 - 15.9 g/dL 06/01/2025 3:31 PM EDT [facility] Hematocrit 40.5 34.0 - 46.6 % 06/01/2025 3:31 PM EDT [facility] MCV 89.0 79.0 - 97.0 fL 06/01/2025 3:31 PM EDT [facility] MCH 28.8 26.6 - 33.0 pg 06/01/2025 3:31 PM EDT [facility] MCHC 32.3 31.5 - 35.7 g/dL 06/01/2025 3:31 PM EDT [facility] RDW 13.2 12.3 - 15.4 % 06/01/2025 3:31 PM EDT [facility] RDW-SD 43.2 37.0 - 54.0 fl 06/01/2025 3:31 PM EDT [facility] MPV 9.0 6.0 - 12.0 fL 06/01/2025 3:31 PM EDT [facility] Platelets 318 140 - 450 10*3/mm3 06/01/2025 3:31 PM EDT [facility] Neutrophil % 65.7 42.7 - 76.0 % 06/01/2025 3:31 PM EDT [facility] Lymphocyte % 22.8 19.6 - 45.3 % 06/01/2025 3:31 PM EDT [facility] Monocyte % 8.5 5.0 - 12.0 % 06/01/2025 3:31 PM EDT [facility] Eosinophil % 1.8 0.3 - 6.2 % 06/01/2025 3:31 PM EDT [facility] Basophil % 0.7 0.0 - 1.5 % 06/01/2025 3:31 PM EDT [facility] Immature Grans % 0.5 0.0 - 0.5 % 06/01/2025 3:31 PM EDT [facility] Neutrophils, Absolute 5.06 1.70 - 7.00 10*3/mm3 06/01/2025 3:31 PM EDT [facility] Lymphocytes, Absolute 1.75 0.70 - 3.10 10*3/mm3 06/01/2025 3:31 PM EDT [facility] Monocytes, Absolute 0.65 0.10 - 0.90 10*3/mm3 06/01/2025 3:31 PM EDT [facility] Eosinophils, Absolute 0.14 0.00 - 0.40 10*3/mm3 06/01/2025 3:31 PM EDT [facility] Basophils, Absolute 0.05 0.00 - 0.20 10*3/mm3 06/01/2025 3:31 PM EDT [facility] Immature Grans, Absolute 0.04 0.00 - 0.05 10*3/mm3 06/01/2025 3:31 PM EDT [facility] nRBC 0.0 0.0 - 0.2 /100 WBC 06/01/2025 3:31 PM EDT [facility] Blood Venipuncture / Unknown 06/01/2025 3:06 PM EDT 06/01/2025 3:25 PM EDT Isiah Barkley MD LAB BLOOD ORDERABLES Kate l Result Performing Organization Address City/[facility]/ZIP Co de Phone Number [facility]
[address] [place] [address], * Lavender Top (06/01/2025 3:06 PM EDT) Only the most recent of2 resultswithin the time period is included. Extra Tube hold for add-on 06/01/2025 3:32 PM EDT [facility] Comment:Auto resulted Blood Venipuncture / Unknown 06/01/2025 3:06 PM EDT 06/01/2025 3:25 PM EDT Isiah Barkley MD LAB BLOOD ORDER ONLY Kate l Result [facility]
[address] [place] [address], [place] [phone] * Light Blue Top (06/01/2025 3:06 PM EDT) Only the most recent of2 resultswithin the time period is included. Extra Tube Hold for add-ons. 06/01/2025 3:32 PM EDT [facility] Comment:Auto resulted Blood Venipuncture / Unknown 06/01/2025 3:06 PM EDT 06/01/2025 3:25 PM EDT us Isiah Barkley MD LAB BLOOD ORDER ONLY Kate l Result Performing Organization Address [facility] Co de Phone Number [facility]
[address] [place] [address], [place] [phone] * High Sensitivity Troponin T (06/01/2025 3:06 PM EDT) Pathologist [facility] HS Troponin T <6 <14 ng/L 06/01/2025 3:54 PM EDT [facility] Blood Venipuncture / Unknown 06/01/2025 3:06 PM EDT 06/01/2025 3:25 PM EDT Narrative [facility] - 06/01/2025 3:54 PM EDT [...] injury due to an underlying chronic condition. us Isiah Barkley MD LAB BLOOD ORDERABLES Kate l Result Performing Organization Address [facility]/ZIP Co de Phone Number [facility]
[address] [place] [address], [place] [phone] * hCG, Quantitative, (06/01/2025 3:06 PM EDT) Only the most recent of2 resultswithin the time period is included. HCG Quantitative <0.10 mIU/mL 06/01/20 3:58 PM EDT [facility] Blood Venipuncture / Unknown 06/01/2025 3:06 PM EDT 06/01/2025 3:25 PM EDT [facility] - 06/01/2025 3:58 PM EDT [...] mIU/mL 18 Weeks 8,099 - 58,176 mIU/mL us Isiah Barkley MD LAB BLOOD ORDERABLES Kate l Result [facility]
[address] [place] [address], * Lipase (06/01/2025 3:06 PM EDT) Lipase 17 13 - 60 U/L 06/01/2025 3:50 PM EDT [facility] Blood Venipuncture / Unknown 06/01/2025 3:06 PM EDT 06/01/2025 3:25 PM EDT Isiah Barkley MD LAB BLOOD ORDERABLES Kate lucie Result [facility]
[address] [place] [address], * Comprehensive Metabolic Panel (06/01/2025 3:06 PM EDT) Only the most recent of2 resultswithin the time period is included. Glucose 88 65 - 99 mg/dL 06/01/2025 3:50 PM EDT [facility] BUN 9.5 6.0 - 20.0 mg/dL 06/01/2025 3:50 PM EDT [facility] Creatinine 0.71 0.57 - 1.00 mg/dL 06/01/2025 3:50 PM EDT [facility] Sodium 140 136 - 145 mmol/L 06/01/2025 3:50 PM EDT [facility] Potassium 3.5 3.5 - 5.2 mmol/L 06/01/2025 3:50 PM EDT [facility] Chloride 103 98 - 107 mmol/L 06/01/2025 3:50 PM EDT [facility] CO2 27.0 22.0 - 29.0 mmol/L 06/01/2025 3:50 PM EDT [facility] Calcium 9.4 8.6 - 10.5 mg/dL 06/01/2025 3:50 PM EDT [facility] Total Protein 7.7 6.0 - 8.5 g/dL 06/01/2025 3:50 PM EDT [facility] Albumin 4.9 3.5 - 5.2 g/dL 06/01/2025 3:50 PM EDT [facility] ALT (SGPT) 13 1 - 33 U/L 06/01/2025 3:50 PM EDT [facility] AST (SGOT) 17 1 - 32 U/L 06/01/2025 3:50 PM EDT [facility] Alkaline Phosphatase 117 39 - 117 U/L 06/01/2025 3:50 PM EDT [facility] Total Bilirubin 0.2 0.0 - 1.2 mg/dL 06/01/2025 3:50 PM EDT [facility] Globulin 2.8 gm/dL 06/01/2025 3:50 PM EDT [facility] Comment:Calculated Result A/G Ratio 1.8 g/dL 06/01/2025 3:50 PM EDT [facility] BUN/Creatinine Ratio 13.4 7.0 - 25.0 06/01/2025 3:50 PM EDT [facility] Anion Gap 10.0 5.0 - 15.0 mmol/L 06/01/2025 3:50 PM EDT [facility] eGFR 115.3 >60.0 mL/min/1.7 3 06/01/2025 3:50 PM EDT [facility] Blood Venipuncture / Unknown 06/01/2025 3:06 PM EDT 06/01/2025 3:25 PM EDT [facility] - 06/01/2025 3:50 PM EDT [...] MD LAB BLOOD ORDERABLES Kate faulkner Result [facility]
[address] [place] [address], * ECG 12 Lead Chest Pain (06/01/2025 [...] PM Referred By: Confirmed By: ISIAH BARKLEY us Isiah Barkley MD ECG ORDERABLES Final Res ult ECG * Tissue Pathology Exam (05/17/2025 8:15 AM EDT) Case Report Surgical Pathology Report Case: [id number] Authorizing Provider: Aminata Nassar MD Collected: 05/17/2025 08:15 AM Ordering Location: [facility] Received: 05/17/2025 08:58 AM ENDO SUITES Pathologist: Seda Loredo MD Specimen: Gastric, Antrum, ANTRUM BXS 05/18/2025 12:47 PM EDT [facility] Clinical Information Hematemesis, unspecified whether nausea present 05/18/2025 12:47 PM EDT [facility] Final Diagnosis GASTRIC ANTRUM: Reactive gastropathy Negative for intestinal metaplasia, dysplasia, neoplasia, malignancy No Helicobacter like organisms identified on H and E 05/18/2025 12:47 PM EDT [facility] at 1247 EDT Gross Description 1. Gastric, Antrum. Received in formalin labeled antrum BXS is a 0.3 x 0.2 x 0.2 cm single murillo tissue fragment, submitted entirely in a single cassette. LDP 05/18/2025 12:47 PM EDT [facility] Microscopic Description The slides are reviewed and demonstrate histopathologic features supporting the above rendered diagnosis. 05/18/2025 12:47 PM EDT [facility] Tissue Pyloric antrum structure / Unknown 05/17/2025 8:15 AM EDT 05/17/2025 8:58 AM EDT Aminata Nassar MD PATHOLOGY/CYTOLOGY ORDERABLES Fi nal Result [facility]
[address] [place] [address], * BH AN ETT AIRWAY (05/17/2025 8:12 AM EDT) Narrative Marilee Gomez CRNA - 05/17/2025 8:12 AM EDT Marilee Gomez CRNA 05/17/2025 8:12 AM Airway Reason: elective Date/Time: 05/17/2025 8:10 AM Airway not difficult General Information and Staff Patient location during procedure: OR [facility] [employer]KEEPER/CAA: Marilee Gomez CRNA Indications and Patient Condition [...] Gomez CRNA ANESTHESIA ORDERABLES Final Re sult * Upper GI Endoscopy (05/17/2025 7:55 AM EDT) Aminata Nassar MD INTERFACE NEEDS Final Result * Type & Screen (05/15/2025 7:22 PM EDT) ABO Type O 05/15/2025 8:09 PM EDT [facility] RH type Positive 05/15/2025 8:09 PM EDT [facility] Antibody Screen Negative 05/15/2025 8:09 PM EDT [facility] T&S Expiration Date 05/18/2025 11:59:59 PM 05/15/2025 8:09 PM EDT [facility] Blood Venipuncture / Unknown 05/15/2025 7:22 PM EDT 05/15/2025 7:31 PM EDT Isiah Barkley MD BLOOD BANK TEST ORDERABLE S Edited Result - Final [facility]
[address] [place] [address], * Ethanol (05/15/2025 7:17 PM EDT) Ethanol <10 0 - 10 mg/dL 05/15/2025 7:45 PM EDT [facility] Blood Venipuncture / Unknown 05/15/2025 7:17 PM EDT 05/15/2025 7:24 PM EDT Narrative [facility] - 05/15/2025 7:45 PM EDT Not for legal purposes. Isiah Barkley MD LAB BLOOD ORDERABLES [facility]
[address] [place] [address], * Telemetry Scan (05/15/2025 6:40 PM EDT) Merged with [facility] ECG ORDERABLES Final Result * Urine Drug Screen - Urine, Clean Catch (05/15/2025 6:03 PM EDT) THC, Screen, Urine Negative Negative 2024 6:37 PM EDT [facility] Phencyclidine (PCP), Urine Negative Negative 05/15/2025 6:37 PM EDT [facility] Cocaine Screen, Urine Negative Negative 05/15/2025 6:37 PM EDT [facility] Methamphetamine, Ur Negative Negative 05/15 6:37 PM EDT [facility] Opiate Screen Negative Negative 05/15/2025 6:37 PM EDT [facility] Amphetamine Screen, Urine Negative Negative 05/15/2025 6:37 PM EDT [facility] Benzodiazepine Screen, Urine Negative Negative 05/15/2025 6:37 PM EDT [facility] Tricyclic Antidepressants Screen Negative Negative 05/15/2025 6:37 PM EDT [facility] Methadone Screen, Urine Negative Negative 05/15/2025 6:37 PM EDT [facility] Barbiturates Screen, Urine Negative Negative 05/15/2025 6:37 PM EDT [facility] Oxycodone Screen, Urine Negative Negative 05/15/2025 6:37 PM EDT [facility] Buprenorphine, Screen, Urine Negative Negative 05/15/2025 6:37 PM EDT [facility] Urine Urine specimen obtained by [...] test, particularly when unconfirmed results are used. Isiah Barkley MD URINE ORDERABLES Final Re sult [facility]
[address] [place] [address], * Fentanyl, Urine - Urine, Clean Catch (05/15/2025 6:03 PM EDT) Fentanyl, Urine Negative Negative 05/15/2025 7:17 PM EDT [facility] Urine Urine specimen obtained by clean catch procedure / Unknown Collection / Unknown 05/15/2025 6:03 PM EDT 05/15/2025 6:25 PM EDT Narrative [facility] - 05/15/2025 7:17 PM EDT [...] test, particularly when unconfirmed results are used. Isiah Barkley MD URINE ORDERABLES Final Re sult [facility]
[address] [place] [address], * (ABNORMAL) Respiratory Panel PCR w/COVID-19(SARS-CoV-2) JESSICA/ANALIA/AFRICA/PAD/COR/MONICA In-House, OPTOMETRIC TECHNICIAN Swab in UTM/VTM, 2 HR TAT - Swab, Nasopharynx (05/15/2025 6:02 PM EDT) ADENOVIRUS, PCR Not Detected Not Detected [facility] 05/15/2025 7:22 PM EDT [facility] Coronavirus 229E Not Detected Not Detected [facility] 05/15/2025 7:22 PM EDT [facility] Coronavirus HKU1 Not Detected Not Detected [facility] 05/15/2025 7:22 PM EDT [facility] Coronavirus NL63 Not Detected Not Detected [facility] 05/15/2025 7:22 PM EDT [facility] Coronavirus OC43 Not Detected Not Detected [facility] 05/15/2025 7:22 PM EDT [facility] COVID19 Not Detected Not Detected - Ref. Range [facility] 05/15/2025 7:22 PM EDT [facility] Human Metapneumovirus Not Detected Not Detected [facility] 05/15/2025 7:22 PM EDT [facility] Human Rhinovirus/Enterov irus Detected(A) Not Detected [facility] 05/15/2025 7:22 PM EDT [facility] Influenza A PCR Not Detected Not Detected [facility] 05/15/2025 7:22 PM EDT [facility] Influenza B PCR Not Detected Not Detected [facility] 05/15/2025 7:22 PM EDT [facility] Parainfluenza Virus 1 Not Detected Not Detected [facility] 05/15/2025 7:22 PM EDT [facility] Parainfluenza Virus 2 Not Detected Not Detected [facility] 05/15/2025 7:22 PM EDT [facility] Parainfluenza Virus 3 Not Detected Not Detected [facility] 05/15/2025 7:22 PM EDT [facility] Parainfluenza Virus 4 Not Detected Not Detected [facility] 05/15/2025 7:22 PM EDT [facility] RSV, PCR Not Detected Not Detected [facility] 05/15/2025 7:22 PM EDT [facility] Bordetella pertussis pcr Not Detected Not Detected [facility] 05/15/2025 7:22 PM EDT [facility] Bordetella parapertussis PCR Not Detected Not Detected [facility] 05/15/2025 7:22 PM EDT [facility] Chlamydophila pneumoniae PCR Not Detected Not Detected [facility] 05/15/2025 7:22 PM EDT [facility] Mycoplasma pneumo by PCR Not Detected Not Detected [facility] 05/15/2025 7:22 PM EDT [facility] Swab Nasopharyngeal structure / Unknown Collection / Unknown 05/15/2025 6:02 PM EDT 05/15/2025 6:23 PM EDT [facility] - 05/15/2025 7:22 PM EDT In [...] antibiotic de-escalation to target atypical bacterial infection. Isiah Barkley MD MICROBIOLOGY - GENERAL OR DERABLES Final Result [facility]
[address] [place] [address], [place] [phone] * IMAGING SCANNED (04/06/2025) Anatomical Region Laterality Modality Radiographic Isabel ging Olivai Patel DO IMG DIAGNOSTIC IMAGING OR DERABLES Final Result * LABS SCANNED (03/27/2025) Olivia Patel DO LAB BLOOD ORDERABLES Kate l Result * Pap IG, HPV-hr (10/18/2020 2:06 PM EST) ThinPrep Vial us Tash Jackson MD PATHOLOGY/CYTOLOGY ORDERABLES Fi nal Result Performing Organization Address City/[facility]/ZIP Co de Phone Number [facility]
[address] [place] [address], [place] [phone] * Hepatitis C Antibody (10/17/2020 2:08 PM EST) Hepatitis C Ab Non-Reacti ve Non-Reacti ve 10/17/2020 7:29 PM EST [facility] Blood Venipuncture / Unknown 10/17/2020 2:08 PM EST 10/17/2020 2:08 PM EST Narrative [facility] - 10/17/2020 7:29 PM EST Results may be falsely decreased if patient taking Biotin. us Tash Jackson MD LAB BLOOD ORDERABLES Final Resul t [facility]
[address] [place] [address], from Last 3 Months or Most Recently Relevant to Health Maintenance Additional Health Concerns Infection Onset Date Last Indicated COVID (History) Comment:Per regional vinegar maker for Oswaldo Campos, 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 The last day before reporting a new confirmed COVID-19 would be 12/08/20. -Alida Banda RN 09/09/2020 12/25/2020 Rhinovirus 05/15/2025 05/15/2025 Insurance [facility] Advance Directives * CPR (Attempt to [...] Of Support Discussed With: Patient Care Teams Propulsion Motor And Generator Repairer Relationship Specialty Start Date End Date Michaela Sousa APRN [address] [place] [id number] PCP - General Internal Medicine 09/04/24
--- NOTE | 2025-06-07 20:21 | ED_ITS ---
<Statement entered by Nathen Solo DO - 06/08/25 00:12> I was consulted by the AMANDO, and we discussed the complexity of problems being addressed. I approved the treatment and management plan for this patient's care in the emergency department, thus performing a substantive portion of the medical decision making. I did evaluate this patient myself and obtained history. Patient was sitting on a heating pad and suffered a burn to the buttock. She had become concerned over erythema in this region and was placed on Keflex twice daily by her primary care provider. Patient is currently concerned that there is infection given that there is central granulation tissue that is green in coloration. To me this appears to be consistent with healthy granulation tissue. There is no draining, no streaking erythema, and no fluctuance or induration. Out of an abundance of precaution we did perform a POCUS assessment that showed no evidence of cobblestoning in the soft tissues to suggest cellulitis. No abscesses within the soft tissues. I informed the patient that she could continue taking the Keflex that she has previously been prescribed but I do not feel strongly that she needs antibiotics further at this time. She was reassured by this workup and all parties were agreeable with the decision to discharge home Nathen Solo DO Discharge Plan Disposition Patient Disposition: Home, Self-Care Prescriptions Prescriptions: No Action amoxicillin-pot clavulanate 875-125 mg tablet 1 tab PO BID 10 Days Qty: 20 0RF methylprednisolone 4 mg tablets,dose pack See Rx Instructions PO PER PKG DIR Qty: 21 0RF Rx Instructions: PO PER PKG DIR gabapentin 300 mg capsule 300 mg PO Patient Comments: TAKE ONE CAPSULE BY MOUTH EVERY 8 HOURS MAY CAUSE DROWSINESS cyanocobalamin (vitamin B-12) 1,000 mcg/mL solution 1,000 mcg SQ Patient Comments: INJECT 1 ML DIRECTED EVERY 28 DAYS pantoprazole 40 mg tablet,delayed release (DR/EC) 40 mg PO ONCE Patient Comments: TAKE ONE TABLET BY MOUTH TWICE DAILY famotidine [Pepcid] 20 mg Tablet 20 mg PO DAILY Referrals Follow up/Referrals: Olivia Patel [Primary Care Provider, Medical] - See instructions Activity Restrictions/Add. Instructions Additional Instructions/Restrictions: Thank you for allowing us to care for you. Fortunately, there is no evidence of abscess or infection beneath the level of the skin. There is not signs of infection and the wound looks to be healing appropriately. Clinical Impressions Clinical Impression: Burn of left buttock Instructions Patient Instructions: Minor Ibrahim (Alternative Therapy) Print Language Print Language: Prydeinig Discharge ED Provider: Nathen Solo General Adult HPI <MAURIZIO Robin - Last Filed: 06/07/25 20:55> General Chief complaint: Skin/Abscess/Foreign Body Stated complaint: Burn on bottom from heating pad Time Seen by Provider: 06/07/25 20:20 Mode of Arrival: Ambulatory Source of Information: Patient Description of Symptoms (Recalled from ER Triage Doc. by RN): Pt presents for evaluation of burn to left hip that began approx 2 weeks ago when falling asleep on heating pad. Pt reports to seeing PCP and being prescribed Kelflex which she has been compliant with, but is worried for infection. History of Present Illness HPI narrative: This is a 35-year-old female presenting to the emergency department today for evaluation of a burn. 2 weeks ago the patient fell asleep on her heating pad which resulted in a burn to her left upper buttocks. Patient reports a blistering wound. She sought care and was put on bacitracin. Patient reports the blister popped and some redness began. She was evaluated 3 days ago by her primary care provider who started her on 500 mg of Keflex twice a day. Patient reports the wound has not improved since starting the antibiotic. She is not having fevers. Related Data Home Medications ?Medication ?Instructions ?Recorded ?Confirmed famotidine 20 mg tablet (Pepcid) 20 mg PO DAILY 05/14/25 cyanocobalamin (vitamin B-12) 1,000 mcg SQ 02/07/25 1,000 mcg/mL injection solution gabapentin 300 mg capsule 300 mg PO 02/07/25 05/14/25 pantoprazole 40 mg tablet,delayed 40 mg PO ONCE 05/14/25 release Previous Rx's ?Medication ?Instructions ?Recorded amoxicillin 875 mg-potassium 1 tab PO BID 10 days #20 tabs 05/14/25 clavulanate 125 mg tablet methylprednisolone 4 mg tablets in See Rx Instructions PO PER PKG DIR 05/14/25 a dose pack #21 tabs Allergies Allergy/AdvReac Type Severity Reaction Status Date / Time celecoxib (From Celebrex) Allergy Severe Anaphylaxis Verified 05/14/25 15:42 latex (LATEX) Allergy Severe Anaphylaxis Verified 05/14/25 15:42 coconut Allergy Unknown Anaphylaxis Verified 05/14/25 15:42 Pertussis Vaccines Allergy Unknown Unknown Verified 05/14/25 15:42 (PERTUSSIS VACCINES) allergy reaction pineapple (PINEAPPLE) Allergy Unknown Unknown Verified 05/14/25 15:42 allergy reaction Sulfa (Sulfonamide Allergy Unknown Unknown Verified 05/14/25 15:42 Antibiotics) (SULFA allergy (SULFONAMIDE ANTIBIOTICS)) reaction dicyclomine (From Bentyl) AdvReac Verified 05/14/25 15:42 ketamine AdvReac Verified 05/14/25 15:42 PFS <MAURIZIO Robin - Last Filed: 06/07/25 20:55> PFS Disclaimer: The information contained in this section may have been updated after the patient was seen, as this information can be updated by other users. Medical History Sinusitis Viral upper respiratory infection Liver disease Depression Anxiety History of anemia History of gastroesophageal reflux (GERD) Kidney stone Migraine Surgical History History of tonsillectomy History of cholecystectomy History of section Family History Grandfather Cancer Colon Cancer Mother Cancer Thyroid Cancer Sister Cancer Cervical Cancer Grandmother Cancer Maternal Grandmother-Cervical, Breast and Lung Cancer Social History Smoking Status: Never smoker second hand exposure: No alcohol intake: never current occupational status: employed Travel in the last 8 weeks?: None household members: other housing: house 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 current occupational exposures/hazards: No caffeine: Yes Have you lived/traveled outside US in past 30 days?: No Contact w/someone who lives/traveled outside US past 30 days?: No Exposure to someone with infectious disease in past 14 days?: No Do you have a fever (greater than 100.4 F or 38 C)?: No Have you tested positive for COVID-19?: No Exposed to someone with COVID-19 in past 14 days?: No Do you have a sore throat?: No Do you have a cough?: No Do you have any weakness?: No Do you have any diarrhea?: No Are you experiencing any unusual bleeding?: No Do you have any muscle aches/pain?: No Do you have any abdominal pain?: No Are you experiencing loss of taste or smell?: No Other Medical History Have you received the Flu Vaccine for this season: Yes Have you received the Pneumonia Vaccine: No <MAURIZIO Robin - Last Filed: 06/07/25 20:55> ROS Obtained: Yes Systems reviewed as appropriate & no additional complaints except as documented Physical Exam <MAURIZIO Robin - Last Filed: 06/07/25 20:55> General General appearance: alert and in no apparent distress Head Head exam: atraumatic and normocephalic Neck Neck exam: Present full ROM Respiratory Respiratory exam: Present normal lung sounds bilaterally; Absent respiratory distress Cardiovascular Cardiovascular exam: Present regular rate and normal rhythm Abdominal Exam Abdominal exam: Present soft; Absent distention or tenderness Neurological Exam Neurological exam: Present alert and oriented X3 Expanded Skin Exam Comment: There is a wound to the left upper buttocks with healthy and healing granulation tissue. No surrounding streaking or erythema. Medical Decision Making <MAURIZIO Robin - Last Filed: 06/07/25 20:55> Medical Records Screening: Per USPSTF and CDC recommendations, given the prevalence of disease in our region, it is our hospital?s policy to screen for HIV and viral Hepatitis for all patients aged 18 and over and those with ongoing risk factors. Federico Inquiry Pt receiving controlled substance: No Vital Signs: 06/07/25 19:37 06/07/25 21:20 Temperature 98 F 98.1 F Temperature Source Oral Oral Pulse Rate 65 Pulse Rate [Radial] 75 Respiratory Rate 16 16 Blood Pressure 136/75 Blood Pressure [Right Arm] 131/78 Blood Pressure Mean [Right Arm] 95 Blood Pressure Position Sitting Blood Pressure Position [Right Arm] Sitting 02 Sat by Pulse Oximetry 100 Oxygen Delivery Method Room Air Room Air Orders (Tests/Meds): ORDERS Category Date Time Status POCUS Point of Care (ER Only) Stat Exams 06/07/25 20:35 Completed Medical Decision Narrative: In summary, this is a 35-year-old female presenting to the emergency department today for evaluation of a wound. Patient fell asleep on a heating pad 2 weeks ago resulting in a blistering burn. Bacitracin was started. The wound was draining and had some redness earlier in the week. 3 days ago she started Keflex 500 mg twice a day. Patient reports no improvement in the wound since starting this medication by her primary care provider. On exam patient is well-appearing and in no acute distress. There is a wound to the left upper buttocks with healthy and healing granulation tissue. No surrounding streaking or erythema It is tender to palpation. It is not actively draining. Differential diagnoses include but are not limited to burn, skin/soft tissue infection/cellulitis, abscess, among others. POCUS performed demonstrating no evidence of deeper infection or abscess. There is no indication of infection at this time. No indication for additional emergent workup or treatment. Patient will follow-up with her primary care provider. Return precautions were discussed and understood. Patient appropriate for safe discharge home at this time. <Nathen Solo DO - Last Filed: 06/08/25 00:09> Vital Signs: 06/07/25 19:37 06/07/25 21:20 Temperature 98 F 98.1 F Temperature Source Oral Oral Pulse Rate 65 Pulse Rate [Radial] 75 Respiratory Rate 16 16 Blood Pressure 136/75 Blood Pressure [Right Arm] 131/78 Blood Pressure Mean [Right Arm] 95 Blood Pressure Position Sitting Blood Pressure Position [Right Arm] Sitting 02 Sat by Pulse Oximetry 100 Oxygen Delivery Method Room Air Room Air Orders (Tests/Meds): ORDERS Category Date Time Status POCUS Point of Care (ER Only) Stat Exams 06/07/25 20:35 Completed Procedures <Nathen Solo DO - Last Filed: 06/08/25 00:09> Miscellaneous Procedure Procedure Performed: Limited soft tissue ultrasound Indication: Soft tissue burn Identified structures: Skin and soft tissue Location: Left buttock Findings: Normal skin and subcutaneous tissue architecture with no evidence of cellulitis or abscess Impression: Normal skin and subcutaneous tissue architecture with no evidence of cellulitis or abscess Images were saved to permanent archive This study was technically adequate Soft tissue CPT codes Neck: 33242-44 Upper extremity: 70647?26 Axilla: 96288-71 Chest wall: 10028-23 Breast: 7664 1-2 6 (complete), 68833-22-TO (Limited) Upper back: 26820-82 Abdominal wall: 32131-88 Pelvic wall: 97627-38 Lower extremity: 92264-43 Other soft tissue: 77708-59 This study was performed by me and I personally interpreted all images/videos. Based on my clinical judgment these images were adequate and did not necessitate further imaging. Critical Care <MAURIZIO Robin - Last Filed: 06/07/25 20:55> Critical Care Time Critical Care Time: No
[2025-06-07 21:20] VITALS: BP 136/75; PULSE 65; RESP 16; TEMP 36.7; O2SAT 100
== END 2025-06-07 21:21 | disposition home or self-care (01) ==
PROVIDERS: Emergency Provider Student in an Organized Health Care Education/Training Program; PCP Family Medicine
DX: T21.05XA Burn of unspecified degree of buttock, initial encounter (principal); T31.0 Burns involving less than 10% of body surface; X19.XXXA Contact with other heat and hot substances, initial encounter
CPT/HCPCS: 99282; 99284

== ENCOUNTER 2025-06-21 17:05 | Outpatient (CLI) | payer OTHER, SELFPAY ==
--- OUTSIDE RECORDS SUMMARY | 2025-01-30 11:15 | XMS_ITS ---
Author Organization [facility] Address [address] [facility] [address] [place] [address] Care Team Providers Care Historical Site Guide Name Role Phone Chelita Jackson Unavailable [phone] Rafael Suttonah Unavailable [phone] REASON FOR VISIT 6 WK PP Social History Sex Assigned At : Social History Observation Description Sex Assigned At Female Encounters Encounter Location Date Provider Diagnosis [facility] [address] [facility] [address] [place] [address] 01/30/2025 Seda Sutton Plan Of Treatment No Information Progress Notes * Maia KOVACSDOB:[birth year] (35 yo F)Acc No.[id number]:01/30/2025 Progress Note Patient: Dylan kathrynshirley Maia Zhao Provider: Tomeka Sutton MD :1990 A ge:34 Y S ex:Female Date:01/30/2025 Address:[address] [place] [address] [facility] Subjective: * Chief Complaints: * 6 WK PP * Electronic signature of Maureen Sutton MD on 06/22/2025 at 12:01 PM EDT Sign off status: Pending Visit Status: C ANC-PD (Cancelled Patient Delivered) * Provider: Tomeka Sutton MD Date: 0 01/30/2025 Generated for Printi ng/Faxing/eTransmitting on: 0 06/22/2025 12:01 PM EDT
--- OUTSIDE RECORDS SUMMARY | 2025-05-15 13:30 | XMS_ITS | Encounter Summary ---
[facility] Organization [facility] Address [address] [place] [address] Care Team Providers Care Licensed Sales Assistant Name Role Phone Michaela Sousa APRN Primary Care Provider + [phone] Reason for Referral * Diagnostic Medical (Routine) - Authorized Specialty Diagnoses / Procedures Referred By Contact Referred To Contact Gastroenterology Diagnoses Change in bowel habits Procedures [place] OFFICE/OUTPATIENT NEW MODERATE MDM 45 MINUTES Leah Castillo APRN [address] [place] [address] Phone: tel: fax: [facility] GA[facility] [address] [place] [phone] Phone: tel: fax: Referral ID Status Reason Start Date Expiration Date Visits Requested Visits Authorized [id number] Authorized Specialty Services Required 05/15/2025 08/14/2026 1 1 Reason for Visit * Reason Comments Vomiting Throwing up for 3 mo (throwing up blood for 1 mo)Believes possible ulcerMass on thyroid- mother thyroid cancerConstant burning Abdominal Pain Since 02/16 ED visitN otes in chart Constipation Anemia Bruising and Dizzine ss Encounter Details Date Type Department Care Team (Late st Contact Info) Description 05/15/2025 1:30 PM EDT Office Visit [facility] GASTR[facility]OLOGY [address] [facility] [address] [place] [address] Leah Castillo, SEWING MACHINE OPERATOR PLASTIC ZIPPER [address] [facility] [address] [place] [id number] Hematemesis with nausea (Primary Dx); Change in bowel habits; Epigastric pain; Melena; Constipation, unspecified constipation type Social History Tobacco Use Types Packs/Day Years Used Date Smoking Tobacco: Never Passive Smoke Exposure: Never Smokeless Tobacco: Never Tobacco Cessation:Counseling Given: Not Answered Alcohol Use Standard Drinks/Week Comments No 0 (1 standard drink = 0.6 oz pur e alcohol) [facility] Utilities Answer Date Recorded In the past 12 months has e [employer], gas, oil, or water [employer] threatened to shut off services in your [...] Date Recorded Retired Total Score 0 05/07/2021 [facility] [place] of Occupat ional Health - Occupational Stress [...] things needed for daily living? No 12/10/2024 [place] Depression Scale Answer Date Recorded [place] Depression Scale Total 2 12/22/2024 The thought of harming myself has occurred to me . Never 12/22/2024 Abuse Screen Answer Date Recorded Feels Unsafe at Home or Work/School no 05/17/2025 Feels Threatened by Someone no 04/28 Does Anyone Try to Keep You From Having Contact with Others or Doing Things Outside Your Home? no 05/17/2025 Physical Signs of Abuse Present no 05/17/2025 Housing Stability Answer Date Recorded Current Living Arrangements home 04/28 Potentially Unsafe Housing Conditions none 05/17/2025 Family and Community Support Answer Jovanni e [...] Difficulty Concentrating, Remembering or Making Decisions no 05/17/2025 Difficulty Managing Errands Independently no 05/17/2025 Education Answer Date Recorded Do you want help with school or training? For example, starting or completing job training or getting a high school diploma, GED or equivalent No 12/10/2024 Preferred Language Bulgarian 12/10/2024 PHQ-2 Answer Date Recorded Patient Health Questionnaire-9 Score 9 05/15/2025 Education Answer Date Recorded What is the highest level of school you have completed or the highest degree you have received? High school graduate 12/09/2024 Comments No Sex and Gender Information Value Date Recorded Sex Assigned at Female 05/15/2025 1:08 PM EDT Legal Sex Female 1:40 PM EDT Gender Identity Not on file Sexual Orientation Straight 05/15/2025 1: 08 PM EDT documented as of this encounter Last Filed Vital Signs Vital Sign Reading Time Taken Comments Blood Pressure 112/78 05/15/2025 1:40 PM EDT Pulse 75 05/15/2025 1:40 PM EDT Temperature 36.7 C (98.1 F) 05/15/2025 1:40 PM EDT Respiratory Rate - - Oxygen Saturation 98% 05/15/2025 1:40 PM EDT Inhaled Oxygen Concentration - - Weight 73.1 kg (161 lb 1.6 oz) 05/15/2025 1:40 P M EDT Height 172.7 cm (5' 8 ) 05/15/2025 1:40 PM EDT Body Mass Index 24.5 05/15/2025 1:40 PM EDT documented in this encounter Functional Status * Over the past 2 weeks, how often have you been bothered by any of the following problems? Question Answer Date of Assessment Author Patient Health Questionnaire-2 Score 1 04/27 1:12 PM EDT Mychart, Generic * Little interest or pleasure in doing things Answer Date of Assessment Author Several days 05/15/2025 1:12 PM EDT Mychart, Generic * Feeling down, depressed, or hopeless Answer Date of Assessment Author Not at all 05/15/2025 1:12 PM EDT Mychart, Generic * Question Answer Date of Assessment Author Patient Health Questionnaire-9 Score 9 04/27 1:12 PM EDT Mychart, Generic * Trouble falling or staying asleep, or sleeping too much Answer Date of Assessment Author Several days 05/15/2025 1:12 PM EDT Mychart, Generic * Feeling tired or having little energy Answer Date of Assessment Author Nearly every day 05/15/2025 1:12 PM EDT Mychart, Generic * Poor appetite or overeating Answer Date of Assessment Author Nearly every day 05/15/2025 1:12 PM EDT Mychart, Generic * Feeling bad about yourself - or that you are a failure or have let yourself or your family down Answer Date of Assessment Author Not at all 05/15/2025 1:12 PM EDT Mychart, Generic * Trouble concentrating on things, such as reading the newspaper or watching television Answer Date of Assessment Author Several days 05/15/2025 1:12 PM EDT Mychart, Generic * Moving or speaking so slowly that other people could have noticed? Or the opposite - being so fidgety or restless that you have been moving around a lot more than usual. Answer Date of Assessment Author Not at all 05/15/2025 1:12 PM EDT Mychart, Generic * Thoughts that you would be better off or hurting yourself in some way Answer Date of Assessment Author Not at all 05/15/2025 1:12 PM EDT Mychart, Generic * Calculated C-SSRS Risk Score (Lifetime/Recent) Answer Date of Assessment Author No Risk Indicated 05/15/2025 5:23 PM EDT Marilee Hardin RN * How difficult have these problems made it for you to do your work, take care of things at home, or get along with other people? Answer Date of Assessment Author Somewhat difficult 05/15/2025 1:12 PM EDT Charles bowser, Generic * [place] Suicide Severity Rating Scale (Screener/Recent Self-Report) Question Answer Date of Assessment Author 1. Wish to be (Past 1 Month) No 025 5:23 PM EDT Marilee Orona RN 2. Non-Specific Active Suici genevieve Thoughts (Past 1 Month) No 05/15/2025 5:23 PM EDT Edil Orona RN 6. Suicidal Behavior (Lifetime) No 5:23 PM EDT Marilee Orona RN documented as of this encounter Progress Notes * Leah Castillo APRN - 05/15/2025 1:30 PM EDT Images from the original note were not included. Follow Up Date: 05/15/2025 Patient Name: Maia Kovacs : 1990 Chief Complaint: Chief Complaint Patient presents with Vomiting Throwing up for 3 mo (throwing up blood for 1 mo) Believes possible ulcer Mass on thyroid- mother thyroid cancer Constant burning Abdominal Pain Since 02/16 ED visit Notes in chart Constipation Anemia Bruising and Dizziness History of Present Illness: History of Present Illness The patient is a 35-year-old female with history of hyperemesis gravidarum, as well as gastric ulcers/GI bleeds, from NSAID use. She has been intermittently vomiting chiquis blood x2 mo. Emesis is justblood when this happens. Concerned about a gastric ulcer. Having dizziness with standing. HR has been up to 150 with syncopal episode at home. Associated symptoms include gastric burning. Takes Pantoprazole 40 mg daily and increased her dose to 40 mg BID, with little improvement in symptoms and no improvement in hematemesis. Stool are black and tarry. Avoids NSAIDs, but was given tramadol x3 doses 4 mo ago, after a section. Nausea and Vomiting - Vomiting bright red blood and passing black stools intermittently since last month. - Vomited small amount of bright red blood this morning, feels dizzy and drained throughout the day. - Fainted 2-3 times due to orthostatic hypotension. - Increased Protonix to 40 mg twice daily, then to 80 mg twice daily briefly before reducing back to 40 mg twice daily and adding Pepcid. No improvement of symptoms with this. - Continues to experience dizziness upon standing, nausea, hot flashes, worsening chest burning radiating to back, and increased belching. Liver - Underwent and tubal ligation at [facility]. - Two CT scans showed mild and moderate liver enlargement, respectively. 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 - Advised to return if liver function deteriorated. - Severe liver failure episode in 2018 with liver enzymes peaking at 3000, requiring feeding tube. GI Bleeds - History of 6-7 GI bleeds. Hemoglobin dropped to 5 due to GI bleed from ulcers. received blood transfusions. - Advised against taking NSAIDs and she is compliant - , received Toradol IV 3-4 times, four months ago Change in bowel habits, constipation: - Experiencing constipation since delivery. - Long-standing history of IBS, predominantly diarrhea. - Concerned about bowel movements due to family history of colon cancer. - MiraLAX did not provide relief. - Initially attributed abdominal pain to . - CT scan in ER from January showed a prominent amount of stool in colon. She reports having daily BM and feeling like she is emptying well. Bruising - Noticed spontaneous bruising on both legs, possibly due to sitting on the edge of a chair. - No injuries sustained. Abdominal Migraines - Previously diagnosed with abdominal migraines, prescribed Neurontin, effectively managed symptoms. PAST SURGICAL HISTORY - and tubal ligation at [facility] - Gallbladder removal in 2009 - Last EGD in 2021, last colonoscopy in 2018. FAMILY HISTORY Mother: Thyroid cancer, villous adenoma in the small intestine found via capsule endoscopy (surgeryperformed) Father: Large polyps, at risk of colon cancer Grandfather: Colon cancer COLONOSCOPY (09/28/2018) for abd pain in RLQ, [facility] (Dr. Zuluaga): normal UPPER GI ENDOSCOPY (05/17/2022) for hematemesis (Dr. Morales): mildly erythematous mucosa in the prepyloric region of the stomach. Path: acute gastritis with erosions and reactive epithelial changes Subjective Review of Systems: Review of Systems Constitutional: Positive for fatigue. Gastrointestinal: Positive for abdominal pain, constipation, nausea, vomiting and GERD. Negative for blood in stool. Skin: Positive for bruise. Neurological: Positive for dizziness. I have reviewed the patients family history, social history, past medical history, past surgical history and have updated it as appropriate. Medications: Current Outpatient Medications: Co-Enzyme Q10 100 MG capsule, Take 4 capsules by mouth., Disp: , Rfl: cyclobenzaprine (FLEXERIL) 10 MG tablet, Take 1 tablet by mouth 3 times a day., Disp: , Rfl: docusate sodium 100 MG capsule, Take 1 capsule by mouth 2 (Two) Times a Day As Needed for Constipation., Disp: 60 capsule, Rfl: 1 pantoprazole (PROTONIX) 40 MG EC tablet, Take 1 tablet by mouth 2 (Two) Times a Day., Disp: 180 tablet, Rfl: 3 polyethylene glycol (MIRALAX) 17 g packet, Take 17 g by mouth Daily., Disp: 100 each, Rfl: 0 simethicone (MYLICON) 80 MG chewable tablet, Chew 1 tablet 4 (Four) Times a Day As Needed for Flatulence., Disp: 30 tablet, Rfl: 0 sodium phosphate (FLEET) 7-19 GM/118ML ADULT enema, Insert 1 enema into the rectum Every 6 (Six) Hours As Needed (constipation)., Disp: 4 each, Rfl: 0 No current facility-administered medications for this visit. Allergies: Allergies Allergen Reactions Celecoxib Anaphylaxis Celebrex; tolerates ibuprofen, ketorolac Coconut (Cocos Nucifera) Anaphylaxis Pineapple Anaphylaxis Sulfa Antibiotics Anaphylaxis and Hives Latex Hives Latex gloves Bentyl [Dicyclomine Hcl] Other (See Comments) Side effect of eyes not adjusting and vision change Metoclopramide Other (See Comments) ERXTRAPYRMIDAL SIDE EFFECTS Twitchy tremors Nsaids GI Bleeding Sulfamethoxazole-Trimethoprim Hives Objective Physical Exam: Vital Signs: Vitals: 05/15/25 1340 BP: 112/78 BP Location: Right arm Patient Position: Sitting Cuff Size: Adult Pulse: 75 Temp: 98.1 ??F (36.7 ??C) TempSrc: Infrared SpO2: 98% Weight: 73.1 kg (161 lb 1.6 oz) Height: 172.7 cm (68 ) PainSc: 4 PainLoc: Abdomen Body mass index is 24.5 kg/m??. Metrics: Maia Kovacs reports that she has never smoked. She has never been exposed to tobacco smoke. She has never used smokeless tobacco. Colonoscopy/Colon Cancer Screening: due at age 47 Physical Exam Vitals and nursing note reviewed. Constitutional: General: She is not in acute distress. Appearance: Normal appearance. She is well-developed. Comments: Appears fatigued/tired HENT: Head: Normocephalic and atraumatic. Right Ear: External ear normal. Left Ear: External ear normal. Nose: Nose normal. Mouth/Throat: Mouth: Mucous membranes are moist. Eyes: Extraocular Movements: Extraocular movements intact. Conjunctiva/sclera: Conjunctivae normal. Pupils: Pupils are equal, round, and reactive to light. Cardiovascular: Rate and Rhythm: Normal rate and regular rhythm. Heart sounds: Normal heart sounds. Pulmonary: Effort: Pulmonary effort is normal. Breath sounds: Normal breath sounds. Abdominal: General: Abdomen is flat. Bowel sounds are normal. There is no distension. Palpations: Abdomen is soft. Tenderness: There is no abdominal tenderness. Hernia: No hernia is present. Musculoskeletal: General: Normal range of motion. Cervical back: Normal range of motion. Skin: General: Skin is warm and dry. Neurological: General: No focal deficit present. Mental Status: She is alert and oriented to person, place, and time. Psychiatric: Attention and Perception: Attention normal. Mood and Affect: Mood normal. Speech: Speech normal. Behavior: Behavior normal. Behavior is cooperative. Cognition and Memory: Cognition normal. Judgment: Judgment normal. Assessment / Plan Assessment/Plan: Diagnoses and all orders for this visit: 1. Change in bowel habits (Primary) - Cancel: Ambulatory Referral For Screening Colonoscopy - Ambulatory Referral For Screening Colonoscopy Assessment & Plan 1. Nausea and vomiting with hematemesis: - Intermittent hematemesis x2 weeks, with chiquis bloody vomit; last occurring this morning - Protonix 40 mg twice a day and Pepcid currently prescribed. - Advised ER visit for further evaluation, due to accompanying dizziness with standing, tachycardiaup to 150, syncopal episode at home and black tarry stools. 2. Change in bowel habits: - History of diarrhea-predominant IBS, now experiencing constipation. - Strong family history of GI issues, including colon cancer. - Colonoscopy warranted, will schedule for July, if not performed before Her sister is currently being worked up for Celiac disease; consider duodenal biopsy if warranted July 3rd-7th week off -> for colonoscopy. Follow Up: No follow-ups on file. Plan of care reviewed with the patient at the conclusion of today's visit. Education was provided regarding diagnosis, management, and any prescribed or recommended OTC medications. Patient verbalized understanding of and agreement with management plan. NOTE TO PATIENT: The Century Cures Act makes medical notes like these available to patients inthe interest of transparency. However, be advised this is a medical document. It is intended as peer to peer communication. It is written in medical language and may contain abbreviations or verbiagethat are unfamiliar. It may appear blunt or direct. Medical documents are intended to carry relevant information, facts as evident, and the clinical opinion of the practitioner. Patient or patient claim service representative verbalized consent for the use of Ambient Listening during the visit with Leah Castillo APRN for chart documentation. 05/16/2025 Leah Castillo APRN [facility] Gastroenterology documented in this encounter Plan of Treatment Upcoming Encounters Date Type Department Care Team (Late st Contact Info) Description 10/31/2025 3:15 PM EST Office Visit [facility] GASTR[facility]ENTEROLOGY [address] [facility] [address] [place] [phone] Aminata Nassar MD [address] [facility] [address] [place] [address] Scheduled Referrals Name Type Priority Associated Diagnoses Order Schedule Ambulatory Referral For Screening Colonoscopy Outpatient Referral Routine Change in bowel habits Ordered: 05/15/2025 documented as of this encounter Visit Diagnoses Diagnosis Hematemesis with nausea- Primary Change in bowel habits Other symptoms involving digestive system Epigastric pain Abdominal pain, epigastric Melena Blood in stool Constipation, unspecified constipation type documented in this encounter Additional Health Concerns Infection Onset Date Last Indicated Resolved Time COVID (History) Comment:Per regional sample dye mixer for [facility], 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 The last day before reporting a new confirmed COVID-19 would be 12/08/20. -Alida Banda RN 09/09/2020 12/25/2020 documented as of this encounter Care Teams Licensed Sales Assistant Relationship Specialty Start Date End Date Michaela Sousa APRN [address] [place] [address] [facility] [id number] PCP - General Internal Medicine 09/04/24 documented as of this encounter
--- OUTSIDE RECORDS SUMMARY | 2025-05-15 18:23 | XMS_ITS | Encounter Summary ---
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 Name Role Phone Sousa Michaela KING Primary Care Provider + [phone] Reason for Visit * Reason Comments Vomiting Blood Encounter Details Date Type Department Care Team (Late st Contact Info) Description 05/15/2025 6:23 PM EDT - 05/15/2025 10:34 PM EDT Emergency [facility] EMERGENCY DEPARTMENT [address] [place] [id number] Selene Lizarraga MD [address] [facility] [place] [address] Acute abdominal pain (Primary Dx); History of peptic ulcer disease; Nausea and vomiting in adult Discharge Disposition: Home or Self Care Social History Tobacco Use Types Packs/Day Years Used Date Smoking Tobacco: Never Passive Smoke Exposure: Never Smokeless Tobacco: Never Alcohol Use Standard Drinks/Week Comments No 0 (1 standard drink = 0.6 oz pur e alcohol) [facility] Utilities Answer Date Recorded In the past 12 months has [employer], gas, oil, or water [employer] threatened to shut off services in your [...] Date Recorded Retired Total Score 0 05/07/2021 [facility] - Occupational Stress Questionnaire Answer Date Recorded [...] things needed for daily living? No 12/10/2024 [place] Depression Scale Answer Date Recorded [place] Depression Scale Total 2 12/22/2024 The thought of harming myself has occurred to me . Never 12/22/2024 Abuse Screen Answer Date Recorded Feels Unsafe at Home or Work/School no 05/15/2025 Feels Threatened by Someone no 04/27 Does Anyone Try to Keep You From Having Contact with Others or Doing Things Outside Your Home? no 05/15/2025 Physical Signs of Abuse Present no 05/15/2025 Housing Stability Answer Date Recorded Current Living [...] GED or equivalent No 12/10/2024 Preferred Language Haitian 12/10/2024 PHQ-2 Answer Date Recorded Patient Health [...] Sign Reading Time Taken Comments Blood Pressure 110/82 05/15/2025 10:30 PM EDT Pulse 60 05/15/2025 10:30 PM EDT Temperature 36.7 C (98.1 F) 05/15/2025 5:22 PM EDT Respiratory Rate 16 05/15/2025 5:22 PM EDT Oxygen Saturation 98% 05/15/2025 10:30 PM EDT Inhaled Oxygen Concentration - - Weight 72.6 kg (160 lb) 05/15/2025 5:22 PM EDT Height 175.3 cm (5' 9 ) 05/15/2025 5:22 PM EDT Body Mass Index 23.63 05/15/2025 5:22 PM EDT documented in this encounter Functional [...] Author Somewhat difficult 05/15/2025 1:12 PM EDT Gabby Desai * [place]ver Suicide Severity Rating Scale (Screener/Recent Self-Report) Question Answer Date of Assessment Author 1. Wish to be (Past 1 Month) No 025 5:23 PM EDT Marilee Orona RN 2. Non-Specific Active Suici genevieve Thoughts (Past 1 Month) No 05/15/2025 5:23 PM EDT Edil Orona RN 6. Suicidal Behavior (Lifetime) No 5 5:23 PM EDT Marilee Orona RN documented as of this encounter Discharge Instructions * Discharge Instructions* Selene Lizarraga MD - 05/15/2025 10:23 PM EDT Contact GI office tomorrow to try to expedite outpatient endoscopy. Continue to take Protonix as prescribed. Avoid fatty, acidic, or spicy foods. Drink plenty of fluids. Return to the ER with any further concern. * Attachments The following attachments cannot be sent through Care Everywhere. * Abdominal Pain Adult (Haitian) documented in this encounter Medications at Time of Discharge Co-Enzyme Q10 100 MG capsule Take 4 capsules by mouth. cyclobenzaprine (FLEXERIL) 10 MG tablet Take 1 tablet by mouth 3 times a day. 02/22/2025 docusate sodium 100 MG capsule Take 1 capsule by mouth 2 (Two) Times a Day As Needed for Constipation. 60 capsule 1 12/13/2024 10:53 AM EDT 12/13/2024 polyethylene glycol (MIRALAX) 17 g packet Take 17 g by mouth Daily. 100 each 02/16/2025 simethicone (MYLICON) 80 MG chewable tablet Chew 1 tablet 4 (Four) Times a Day As Needed for Flatulence. 30 tablet 12/13/2024 12:41 PM EDT 12/13/2024 sodium phosphate (FLEET) 7-19 GM/118ML ADULT enema Insert 1 enema into the rectum Every 6 (Six) Hours As Needed (constipation) . 4 each 02/16/2025 pantoprazole (PROTONIX) 40 MG EC tabletIndication s:Hyperemesis gravidarum Take 1 tablet by mouth 2 (Two) Times a Day. 180 tablet 3 08/03/2024 05/31/2025 documented as of this encounter ED Notes * Selene Lizarraga MD - 05/15/2025 5:46 PM EDT Subjective History of Present Illness 35-year-old female presents with a complaint of epigastric abdominal pain with associated nausea vomiting and hematemesis. The patient has a previous history of hematemesis. She reports that she has been diagnosed with ulcers previously and once was diagnosed with a Clarice-Guevara tear. She does nottake any anticoagulation. Previous abdominal surgeries include cholecystectomy and exploratory surgeries and . She does have some mild pain throughout the upper abdomen. She denies a historyof pancreatitis. She does not use alcohol regular basis. She denies any marijuana use. She was evaluated outpatient by her GI provider today. She states that she was referred to the ER for further wor kup. No chest pain cough or shortness of breath. No acute respiratory symptoms. No reported change in bowel or urinary function. Review of Systems Constitutional: Positive for appetite change. Negative for chills, fatigue and fever. HENT: Negative for congestion, ear pain, postnasal drip, sinus pressure and sore throat. Eyes: Negative for pain, redness and visual disturbance. Respiratory: Negative for cough, chest tightness and shortness of breath. Cardiovascular: Negative for chest pain, palpitations and leg swelling. Gastrointestinal: Positive for abdominal pain, nausea and vomiting. Negative for anal bleeding, blood in stool and diarrhea. Hematemesis Endocrine: Negative for polydipsia and polyuria. Genitourinary: Negative for difficulty urinating, dysuria, frequency and urgency. Musculoskeletal: Negative for arthralgias, back pain and neck pain. Skin: Negative for pallor and rash. Allergic/Immunologic: Negative for environmental allergies and immunocompromised state. Neurological: Negative for dizziness, weakness and headaches. Hematological: Negative for adenopathy. Psychiatric/Behavioral: Negative for confusion, self-injury and suicidal ideas. The patient is not nervous/anxious. All other systems reviewed and are negative. 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 Moderate persistent asthma with status asthmaticus 05/07/2018 no problems in years Vocal cord dysfunction Allergies Allergen Reactions Celecoxib Anaphylaxis Celebrex; tolerates ibuprofen, ketorolac Coconut (Cocos Nucifera) Anaphylaxis Pineapple Anaphylaxis Sulfa Antibiotics Anaphylaxis and Hives Latex Hives Latex gloves Bentyl [Dicyclomine Hcl] Other (See Comments) Side effect of eyes not adjusting and vision change Metoclopramide Other (See Comments) ERXTRAPYRMIDAL SIDE EFFECTS Twitchy tremors Nsaids GI Bleeding Sulfamethoxazole-Trimethoprim Hives Past Surgical History: Procedure Laterality Date ABDOMINAL SURGERY 2018 Exploratory lap SECTION N/A 05/16/2021 Procedure: SECTION PRIMARY; Surgeon: Raghavendra Orozco MD; Location: [facility];Service: Obstetrics/Gynecology; Laterality: N/A; SECTION N/A 12/10/2024 Procedure: SECTION REPEAT; Surgeon: Seda Sutton MD; Location: [facility];Service: Obstetrics/Gynecology; Laterality: N/A; CHOLECYSTECTOMY 2008 COLONOSCOPY N/A 09/28/2018 Procedure: COLONOSCOPY; Surgeon: Jens Zuluaga MD; Location: [facility]; Service: Gastroenterology CYSTOSCOPY RETROGRADE PYELOGRAM Right 12/18/2022 Procedure: CYSTOSCOPY RIGHT RETROGRADE PYELOGRAM, DIAGNOSTIC URETEROSCOPY, RIGHT URETERAL STENT; Surgeon: Raulito Lancaster MD; Location: [facility]; Service: Urology; Laterality: Right; ENDOSCOPY N/A 12/10/2017 Procedure: ESOPHAGOGASTRODUODENOSCOPY; Surgeon: Jens Zuluaga MD; Location: [facility]; Service: Gastroenterology ENDOSCOPY N/A 05/12/2018 Procedure: ESOPHAGOGASTRODUODENOSCOPY; Surgeon: Jens Zuluaga MD; Location: [facility]; Service: Gastroenterology ENDOSCOPY N/A 05/17/2022 Procedure: ESOPHAGOGASTRODUODENOSCOPY; Surgeon: Jens Morales MD; Location: [facility]; Service: Gastroenterology; Laterality: N/A; FULGURATION ENDOMETRIOSIS 2019 (done twice) KNEE MENISCECTOMY Left LIVER BIOPSY 2018 LUMBAR SYMPATHETIC NERVE BLOCK RHINOPLASTY cheerleading, deviated septum and crush injury and had surgery/reconstruction TONSILLECTOMY child TUBAL ABDOMINAL LIGATION 12/10/2024 UPPER GASTROINTESTINAL ENDOSCOPY 2009 Several GI bleed several scopes Family History Problem Relation Age of Onset Diabetes Mother Osteoarthritis Mother Fibromyalgia Mother Seizures Mother Hypothyroidism Mother COPD Mother Colon cancer Mother Tumor in small intestine (carpet one?) surgery to remive Stomach cancer Mother Tumor in small intestine (carpet one?) surgery to remove Hyperlipidemia Father Hypertension Father Colon cancer Father Had a polyp that was almost cancer physician stated ???if he had waited another month would be colon cancer?? Lung cancer Maternal Grandmother Hyperlipidemia Maternal Grandmother Hypertension Maternal Grandmother COPD Maternal Grandmother Asthma Maternal Grandmother Hyperlipidemia Paternal Grandmother Hypertension Paternal Grandmother Diabetes Paternal Grandfather Hyperlipidemia Paternal Grandfather Hypertension Paternal Grandfather Colon cancer Paternal Grandfather Social History Socioeconomic History Marital status: Spouse name: nolan Number of children: 1 Highest education level: High school graduate Tobacco Use Smoking status: Never Passive exposure: Never Smokeless tobacco: Never Vaping Use Vaping status: Never Used Substance and Sexual Activity Alcohol use: No Drug use: Never Sexual activity: Yes Partners: Male control/protection: Bilateral salpingectomy Objective Physical Exam Vitals and nursing note reviewed. Constitutional: General: She is not in acute distress. Appearance: Normal appearance. She is well-developed. She is not toxic-appearing or diaphoretic. HENT: Head: Normocephalic and atraumatic. Right Ear: External ear normal. Left Ear: External ear normal. Nose: Nose normal. Eyes: General: Lids are normal. Pupils: Pupils are equal, round, and reactive to light. Neck: Trachea: No tracheal deviation. Cardiovascular: Rate and Rhythm: Normal rate and regular rhythm. Pulses: No decreased pulses. Heart sounds: Normal heart sounds. No murmur heard. No friction rub. No gallop. Pulmonary: Effort: Pulmonary effort is normal. No respiratory distress. Breath sounds: Normal breath sounds. No decreased breath sounds, wheezing, rhonchi or rales. Abdominal: General: Bowel sounds are normal. Palpations: Abdomen is soft. Tenderness: There is abdominal tenderness in the epigastric area. There is no guarding or rebound. Musculoskeletal: General: No deformity. Normal range of motion. Cervical back: Normal range of motion and neck supple. Lymphadenopathy: Cervical: No cervical adenopathy. Skin: General: Skin is warm and dry. Findings: No rash. Neurological: Mental Status: She is alert and oriented to person, place, and time. Cranial Nerves: No cranial nerve deficit. Sensory: No sensory deficit. Psychiatric: Speech: Speech normal. Behavior: Behavior normal. Thought Content: Thought content normal. Judgment: Judgment normal. Procedures ED Course Medical Decision Making Differential includes peptic ulcer disease, Clarice-Guevara, bowel perforation, pancreatitis, gastroparesis, bowel obstruction, other unspecified etiology. Labs show normal white count, normal H&H, normal kidney function electrolytes. Negative alcohollevel. Negative test. Urine drug screen that is negative. Viral respiratory panel positive for rhinovirus with no acute respiratory symptoms. CT scan abdomen pelvis with and without contrast interpreted by me is negative for bowel obstruction or other acute intra-abdominal abnormalities. While here in the ER the patient received IV fluids, several doses of nausea medication, and morphine for pain management. She did appear improved on repeat discussion and evaluation I discussed the patient with the on-call GI physician, Dr. Morales He recommends outpatient expedited endoscopy. He does not recommend admission at this time. Dr. Morales recommends that the patient contact GI clinic tomorrow to set up outpatient endoscopy. I have relayed this information to the patient. Problems Addressed: Acute abdominal pain: complicated acute illness or injury with systemic symptoms History of peptic ulcer disease: complicated acute illness or injury with systemic symptoms Nausea and vomiting in adult: complicated acute illness or injury with systemic symptoms Amount and/or Complexity of Data Reviewed External Data Reviewed: labs and radiology. Labs: ordered. Decision-making details documented in ED Course. Radiology: ordered and independent interpretation performed. Decision-making details documented in ED Course. Risk Prescription drug management. Final diagnoses: Acute abdominal pain History of peptic ulcer disease Nausea and vomiting in adult ED Disposition ED Disposition ED Disposition Discharge Condition Stable Comment -- No follow-up provider specified. Medication List No changes were made to your prescriptions during this visit. Selene Lizarraga MD 05/16/25 0016 documented in this encounter Plan of Treatment Upcoming Encounters Date Type Department Care Team (Late st Contact Info) Description 10/31/2025 3:15 PM EST Office Visit [facility] GASTROENTEROLOGY [address] [facility] [address] [place] [phone] Aminata Nassar MD [address] [place] [address] documented as of this encounter Procedures Procedure Name Priority Date/Time Associated Diagnosis Comments CT ABDOMEN PELVIS W WO CONTRAST STAT 05/15/2025 9:30 PM EDT TYPE AND SCREEN STAT 05/15/2025 7:22 PM EDT BLACK TOP STAT 05/15/2025 7:17 PM EDT GOLD TOP - SST STAT 05/15/2025 7:17 PM EDT DK GREEN TOP STAT 05/15/2025 7:17 PM EDT HCG, QUANTITATIVE, STAT 05/15/2025 7:17 PM EDT ETHANOL STAT 05/15/2025 7:17 PM EDT COMPREHENSIVE METABOLIC PANEL STAT 05/15/2025 7:17 PM EDT CBC WITH AUTO DIFFERENTIAL STAT 05/15/2025 6:52 PM EDT LAVENDER TOP STAT 05/15/2025 6:52 PM EDT LIGHT BLUE TOP STAT 05/15/2025 6:52 PM EDT RAINBOW DRAW STAT 05/15/2025 6:52 PM EDT CBC AND DIFFERENTIAL STAT 05/15/2025 6:52 PM EDT SCANNED - TELEMETRY 05/15/2025 6 :40 PM EDT POCT PEFORM URINE STAT 05/15/2025 6:11 PM EDT URINE DRUG SCREEN STAT 05/15/2025 6:0 3 PM EDT FENTANYL, URINE STAT 05/15/2025 6:03 PM EDT RESPIRATORY PANEL PCR W/ COVID-19 (SARS-COV-2), MIXER ATTENDANT SWAB IN UTM/VTP, 2 HR TAT STAT 05/15/2025 6:02 PM EDT COVID PRE-OP / PRE-PROCEDURE SCREENING ORDER (NO ISOLATION) STAT 05/15/2025 6:02 PM EDT documented in this encounter Results * CT Abdomen Pelvis With & Without Contrast (05/15/2025 9:30 PM EDT) Anatomical Region Laterality Modality Abdomen, Pelvis N/A Computed Tomogra phy 05/15/2025 9:34 PM EDT Impressions 05/15/2025 9:38 PM EDT 1.No acute findings in the abdomen or pelvis. 2.Prior cholecystectomy. Electronically Signed: Nolan Gongora MD 05/15/2025 9:38 PM EDT Workstation ID: [id number] Narrative 05/15/2025 9:[address] ABDOMEN PELVIS W WO CONTRAST Date of Exam: 05/15/2025 9:05 PM EDT Indication: upper abdominal pain. Comparison: 02/16/2025 Technique: Axial CT images were obtained of the abdomen and pelvis before and after the uneventful intravenous administration of iodinated contrast. Sagittal and coronal reconstructions were performed. Automated exposure control and iterative reconstruction methods were used. FINDINGS: Lung bases: No masses. No consolidation. Liver:No masses. No intrahepatic biliary ductal dilatation. Spleen:No masses. No perisplenic hematoma. Pancreas:No pancreatic masses. No evidence of pancreatitis. Gallbladder and common bile duct: Prior cholecystectomy. Adrenal glands:No adrenal masses Kidneys and ureters:No kidney stones. No renal masses.No calculi present within the ureters. Normal caliber ureters. Urinary bladder:No urinary bladder wall thickening. No bladder masses. Small bowel:Normal caliber small bowel. Large bowel:No diverticulosis or diverticulitis. No large bowel masses are appreciated Appendix: Normal GENITOURINARY: Normal appearance of the uterus and adnexa. Ascites or pneumoperitoneum:None. Adenopathy:None present Osseous structures: The proximal femurs are intact. The pubic bones are intact. The sacrum and sacroiliac joints are normal. Degenerative changes of the lumbar spine. The spinous and transverse processes are intact. Other findings: None Procedure Note Nolan Gongora MD - 05/15/2025 CT ABDOMEN PELVIS W WO CONTRAST Date of Exam: 05/15/2025 9:05 PM EDT Indication: upper abdominal pain. Comparison: 02/16/2025 Technique: Axial CT images were obtained of the abdomen and pelvis beforeand after the uneventful intravenous administration of iodinated contrast.Sagittal and coronal reconstructions were performed. Automated exposurecontrol and iterative reconstruction methods were used. FINDINGS: Lung bases: No masses. No consolidation. Liver:No masses. No intrahepatic biliary ductal dilatation. Spleen:No masses. No perisplenic hematoma. Pancreas:No pancreatic masses. No evidence of pancreatitis. Gallbladder and common bile duct: Prior cholecystectomy. Adrenal glands:No adrenal masses Kidneys and ureters:No kidney stones. No renal masses.No calculi presentwithin the ureters. Normal caliber ureters. Urinary bladder:No urinary bladder wall thickening. No bladder masses. Small bowel:Normal caliber small bowel. Large bowel:No diverticulosis or diverticulitis. No large bowel masses areappreciated Appendix: Normal GENITOURINARY: Normal appearance of the uterus and adnexa. Ascites or pneumoperitoneum:None. Adenopathy:None present Osseous structures: The proximal femurs are intact. The pubic bones areintact. The sacrum and sacroiliac joints are normal. Degenerative changesof the lumbar spine. The spinous and transverse processes are intact. Other findings: None IMPRESSION: 1.No acute findings in the abdomen or pelvis. 2.Prior cholecystectomy. Electronically Signed: Nolan Gongora MD 05/15/2025 9:38 PM EDT Workstation ID: [id number] Selene Lizarraga MD IMG CT ORDERABLES Final R esult * Type & Screen (05/15/2025 7:22 PM EDT) ABO Type O 05/15/2025 8:09 PM EDT [facility] RH type Positive 05/15/2025 8:09 PM EDT [facility] Antibody Screen Negative 05/15/2025 8:09 PM EDT [facility] T&S Expiration Date 05/18/2025 11:59:59 PM 05/15/2025 8:09 PM EDT [facility] Blood Venipuncture / Unknown 05/15/2025 7:22 PM EDT 05/15/2025 7:31 PM EDT Selene Lizarraga MD BLOOD BANK TEST ORDERABLE S Edited Result - Final [facility]
[address] [place] [address], * hCG, Quantitative, (05/15/2025 7:17 PM EDT) HCG Quantitative <1.00 mIU/mL 05/15/20 7:43 PM EDT [facility] Blood Venipuncture / Unknown 05/15/2025 7:17 PM EDT 05/15/2025 7:24 PM EDT Narrative [facility] - 05/15/2025 7:43 PM EDT HCG Ranges by Gestational Age [...] mIU/mL 18 Weeks 8,099 - 58,176 mIU/mL Selene Lizarraga MD LAB BLOOD ORDERABLES Kate l Result Performing Organization Address City/[facility]/ZIP Co de Phone Number [facility]
[address] [place] [address], * Ethanol (05/15/2025 7:17 PM EDT) Ethanol <10 0 - 10 mg/dL 05/15/2025 7:45 PM EDT [facility] Blood Venipuncture / Unknown 05/15/2025 7:17 PM EDT 05/15/2025 7:24 PM EDT Narrative [facility] - 05/15/2025 7:45 PM EDT Not for legal purposes. Selene Lizarraga MD LAB BLOOD ORDERABLES Kate l Result [facility]
[address] [place] [address], * Black Top (05/15/2025 7:17 PM EDT) Extra Tube Hold for add-ons. 05/15/2025 7:31 PM EDT [facility] Comment:Auto resulted. Blood Venipuncture / Unknown 05/15/2025 7:17 PM EDT 05/15/2025 7:24 PM EDT Selene Lizarraga MD LAB BLOOD ORDER ONLY Kate l Result Performing Organization Address City/[facility]/ZIP Co de Phone Number [facility]
[address] [place] [address], [place] [phone] * Gold Top - SST (05/15/2025 7:17 PM EDT) Extra Tube Hold for add-ons. 05/15/2025 7:31 PM EDT [facility] Comment:Auto resulted. Blood Venipuncture / Unknown 05/15/2025 7:17 PM EDT 05/15/2025 7:24 PM EDT Selene Lizarraga MD LAB BLOOD ORDER ONLY Kate l Result Performing Organization Address [facility] Co de Phone Number [facility]
[address] [place] [address], [place] [phone] * Green Top (Gel) (05/15/2025 7:17 PM EDT) Extra Tube Hold for add-ons. 05/15/2025 7:31 PM EDT [facility] Comment:Auto resulted. Blood Venipuncture / Unknown 05/15/2025 7:17 PM EDT 05/15/2025 7:24 PM EDT Selene Lizarraga MD LAB BLOOD ORDER ONLY Kate l Result Performing Organization Address City/[facility]/ZIP Co de Phone Number [facility]
[address] [place] [address], [place] [phone] * (ABNORMAL) Comprehensive Metabolic Panel (05/15/2025 7:17 PM EDT) Glucose 107(H) 65 - 99 mg/dL 05/15/2025 7:45 PM EDT [facility] BUN 6.8 6.0 - 20.0 mg/dL 05/15/2025 7:45 PM EDT [facility] Creatinine 0.74 0.57 - 1.00 mg/dL 05/15/2025 7:45 PM T [facility] Sodium 139 136 - 145 mmol/L 05/15/2025 7:45 PM EDT [facility] Potassium 3.4(L) 3.5 - 5.2 mmol/L 05/15/2025 7:45 PM EDT [facility] Chloride 106 98 - 107 mmol/L 05/15/2025 7:45 PM [facility] CO2 24.1 22.0 - 29.0 mmol/L 05/15/2025 7:45 PM [facility] Calcium 8.9 8.6 - 10.5 mg/dL 05/15/2025 7:45 PM [facility] Total Protein 7.3 6.0 - 8.5 g/dL 05/15/2025 7:45 PM [facility] Albumin 4.7 3.5 - 5.2 g/dL 05/15/2025 7:45 PM [facility] ALT (SGPT) 14 1 - 33 U/L 05/15/2025 7:45 PM [facility] AST (SGOT) 22 1 - 32 U/L 05/15/2025 7:45 PM [facility] Alkaline Phosphatase 95 39 - 117 U/L 05/15/2025 7:45 PM T [facility] Total Bilirubin 0.4 0.0 - 1.2 mg/dL 05/15/2025 7:45 PM EDT [facility] Globulin 2.6 gm/dL 05/15/2025 7:45 PM [facility] Comment:Calculated Result A/G Ratio 1.8 g/dL 05/15/2025 7:45 PM T [facility] BUN/Creatinine Ratio 9.2 7.0 - 25.0 05/15/2025 7:45 PM EDT [facility] Anion Gap 8.9 5.0 - 15.0 mmol/L 05/15/2025 7:45 PM EDT [facility] eGFR 109.7 >60.0 mL/min/1.7 3 05/15/2025 7:45 PM EDT [facility] Blood Venipuncture / Unknown 05/15/2025 7:17 PM EDT 05/15/2025 7:24 PM EDT [facility] - 05/15/2025 7:45 PM EDT GFR Categories in Chronic Kidney [...] does not include race as a factor Selene Lizarraga MD LAB BLOOD ORDERABLES Kate faulkner Result [facility]
[address] [place] [address], * (ABNORMAL) CBC Auto Differential (05/15/2025 6:52 PM EDT) WBC 7.13 3.40 - 10.80 10*3/mm3 05/15/2025 6:57 PM EDT [facility] RBC 4.03 3.77 - 5.28 10*6/mm3 05/15/2025 6:57 PM EDT [facility] Hemoglobin 11.7(L) 12.0 - 15.9 g/dL 05/15/2025 6:57 PM EDT [facility] Hematocrit 35.5 34.0 - 46.6 % 05/15/2025 6:57 PM EDT [facility] MCV 88.1 79.0 - 97.0 fL 05/15/2025 6:57 PM EDT [facility] MCH 29.0 26.6 - 33.0 pg 05/15/2025 6:57 PM EDT [facility] MCHC 33.0 31.5 - 35.7 g/dL 05/15/2025 6:57 PM EDT [facility] RDW 13.5 12.3 - 15.4 % 05/15/2025 6:57 PM EDT [facility] RDW-SD 43.9 37.0 - 54.0 fl 05/15/2025 6:57 PM EDT [facility] MPV 9.4 6.0 - 12.0 fL 05/15/2025 6:57 PM EDT [facility] Platelets 264 140 - 450 10*3/mm3 05/15/2025 6:57 PM EDT [facility] Neutrophil % 68.2 42.7 - 76.0 % 05/15/2025 6:57 PM EDT [facility] Lymphocyte % 21.0 19.6 - 45.3 % 05/15/2025 6:57 PM EDT [facility] Monocyte % 7.0 5.0 - 12.0 % 05/15/2025 6:57 PM EDT [facility] Eosinophil % 2.7 0.3 - 6.2 % 05/15/2025 6:57 PM EDT [facility] Basophil % 0.7 0.0 - 1.5 % 05/15/2025 6:57 PM EDT [facility] Immature Grans % 0.4 0.0 - 0.5 % 05/15/2025 6:57 PM EDT [facility] Neutrophils, Absolute 4.86 1.70 - 7.00 10*3/mm3 05/15/2025 6:57 PM EDT [facility] Lymphocytes, Absolute 1.50 0.70 - 3.10 10*3/mm3 05/15/2025 6:57 [facility] Monocytes, Absolute 0.50 0.10 - 0.90 10*3/mm3 05/15/2025 6:57 PM EDT [facility] Eosinophils, Absolute 0.19 0.00 - 0.40 10*3/mm3 05/15/2025 6:57 PM EDT [facility] Basophils, Absolute 0.05 0.00 - 0.20 10*3/mm3 05/15/2025 6:57 PM EDT [facility] Immature Grans, Absolute 0.03 0.00 - 0.05 10*3/mm3 05/15/2025 6:57 PM EDT [facility] nRBC 0.0 0.0 - 0.2 /100 WBC 05/15/2025 6:57 PM EDT [facility] Blood Line / Unknown 05/15/2025 6: 52 PM EDT 05/15/2025 6:52 PM EDT Selene Lizarraga MD LAB BLOOD ORDERABLES Kate l Result [facility]
[address] [place] [address], [place] [phone] * Light Blue Top (05/15/2025 6:52 PM EDT) Extra Tube Hold for add-ons. 05/15/2025 7:01 PM EDT [facility] Comment:Auto resulted Blood Line / Unknown 05/15/2025 6: 52 PM EDT 05/15/2025 6:52 PM EDT Selene Lizarraga MD LAB BLOOD ORDER ONLY Kate l Result [facility]
[address] [place] [address], [place] [phone] * Lavender Top (05/15/2025 6:52 PM EDT) Extra Tube hold for add-on 05/15/2025 7:01 PM EDT [facility] Comment:Auto resulted Blood Line / Unknown 05/15/2025 6: 52 PM EDT 05/15/2025 6:52 PM EDT Selene Lizarraga MD LAB BLOOD ORDER ONLY Kate l Result Performing Organization Address City/[facility]/ZIP Co de Phone Number [facility]
[address] [place] [address], * Telemetry Scan (05/15/2025 6:40 PM EDT) [facility] Onbase ECG ORDERABLES Final Result * POC Urine (05/15/2025 6:11 PM EDT) [facility] HCG, Urine, QL Negative [facility] Lot Number [id number] [facility] Internal Positive Control Passed [facility] Internal Negative Control Passed [facility] Expiration Date 2026-09-13 [facility] Urine 05/15/2025 6:11 PM EDT Selene Lizarraga MD POINT OF CARE TEST ORDERA BLES Final Result Performing Organization Address City/[facility]/ZIP Co de Phone Number [facility]
[address] [place] [address], [place] [phone] * Fentanyl, Urine - Urine, Clean Catch (05/15/2025 6:03 PM EDT) Fentanyl, Urine Negative Negative 05/15/2025 7:17 PM EDT [facility] Urine Urine specimen obtained by clean catch procedure / Unknown Collection / Unknown 05/15/2025 6:03 PM EDT 05/15/2025 6:25 PM EDT Narrative [facility] - 05/15/2025 7:17 PM EDT Negative Threshold: Fentanyl 5 ng/mL The normal value for the drug tested is negative. This report includes final unconfirmed screening results to be used for medical treatment purposes only. Unconfirmed results must not be used for non-medical purposes such as employment or legal testing. Clinical consideration should be applied to any drug of abuse test, particularly when unconfirmed results are used. Selene Lizarraga MD URINE ORDERABLES Final Re sult [facility]
[address] [place] [address], * Urine Drug Screen - Urine, Clean Catch (05/15/2025 6:03 PM EDT) THC, Screen, Urine Negative Negative 2024 6:37 PM EDT [facility] Phencyclidine (PCP), Urine Negative Negative 05/15/2025 6:37 PM EDT [facility] Cocaine Screen, Urine Negative Negative 05/15/2025 6:37 PM EDT [facility] Methamphetamine, Ur Negative Negative 05/15 6:37 PM EDT [facility] Opiate Screen Negative Negative 05/15/2025 6:37 PM EDT [facility] Amphetamine Screen, Urine Negative Negative 05/15/2025 6:37 PM EDT [facility] Benzodiazepine Screen, Urine Negative Negative 05/15/2025 6:37 PM EDT [facility] Tricyclic Antidepressants Screen Negative Negative 05/15/2025 6:37 PM EDT [facility] Methadone Screen, Urine Negative Negative 05/15/2025 6:37 PM EDT [facility] Barbiturates Screen, Urine Negative Negative 05/15/2025 6:37 PM EDT [facility] Oxycodone Screen, Urine Negative Negative 05/15/2025 6:37 PM EDT [facility] Buprenorphine, Screen, Urine Negative Negative 05/15/2025 6:37 PM EDT [facility] Urine Urine specimen obtained by clean catch procedure / Unknown Collection / Unknown 05/15/2025 6:03 PM EDT 05/15/2025 6:25 PM EDT Narrative [facility] - 05/15/2025 6:37 PM EDT Cutoff For Drugs Screened: Amphetamines 500 ng/ml Barbiturates 200 ng/ml Benzodiazepines 150 ng/ml Cocaine 150 ng/ml Methadone 200 ng/ml Opiates 100 ng/ml Phencyclidine 25 ng/ml THC 50 ng/ml Methamphetamine 500 ng/ml Tricyclic Antidepressants 300 ng/ml Oxycodone 100 ng/ml Buprenorphine 10 ng/ml The normal value for all drugs tested is negative. This report includes unconfirmed screening results, with the cutoff values listed, to be used for medical treatment purposes only. Unconfirmed results must not be used for non-medical purposes such as employment or legal testing. Clinical consideration should be applied to any drug of abuse test, particularly when unconfirmed results are used. Selene Lizarraga MD URINE ORDERABLES Final Re sult [facility]
[address] [place] [address], * (ABNORMAL) Respiratory Panel PCR w/COVID-19(SARS-CoV-2) JESSICA/ANALIA/[place]/PAD/COR/MONICA In-House, MIXER ATTENDANT Swab in UTM/VTM, 2 HR TAT - Swab, Nasopharynx (05/15/2025 6:02 PM EDT) ADENOVIRUS, PCR Not Detected Not Detected BIOFIRE TORCH 05/15/2025 7:22 PM EDT [facility] Coronavirus 229E Not Detected Not Detected BIOFIRE TOR 05/15/2025 7:22 PM EDT [facility] Coronavirus HKU1 Not Detected Not Detected BIOFIRE TORCH 05/15/2025 7:22 PM EDT [facility] Coronavirus NL63 Not Detected Not Detected BIOFIRE TOR 05/15/2025 7:22 PM EDT [facility] Coronavirus OC43 Not Detected Not Detected BIOFIRE TORCH 05/15/2025 7:22 PM EDT [facility] COVID19 Not Detected Not Detected - Ref. Range BIOFIRE TORCH 05/15/2025 7:22 PM EDT [facility] Human Metapneumovirus Not Detected Not Detected BIOFIRE TOR 05/15/2025 7:22 PM EDT [facility] Human Rhinovirus/Enterov irus Detected(A) Not Detected BIOFIRE TOR 05/15/2025 7:22 PM EDT [facility] Influenza A PCR Not Detected Not Detected BIOFIRE TOR 05/15/2025 7:22 PM EDT [facility] Influenza B PCR Not Detected Not Detected BIOFIRE TOR 05/15/2025 7:22 PM EDT [facility] Parainfluenza Virus 1 Not Detected Not Detected BIOFIRE TOR 05/15/2025 7:22 PM EDT [facility] Parainfluenza Virus 2 Not Detected Not Detected BIOFIRE TOR 05/15/2025 7:22 PM EDT [facility] Parainfluenza Virus 3 Not Detected Not Detected BIOFIRE TOR 05/15/2025 7:22 PM EDT [facility] Parainfluenza Virus 4 Not Detected Not Detected BIOFIRE TOR 05/15/2025 7:22 PM EDT [facility] RSV, PCR Not Detected Not Detected BIOFIRE TOR 05/15/2025 7:22 PM EDT [facility] Bordetella pertussis pcr Not Detected Not Detected BIOFIRE TOR 05/15/2025 7:22 PM EDT [facility] Bordetella parapertussis PCR Not Detected Not Detected BIOFIRE TOR 05/15/2025 7:22 PM EDT [facility] Chlamydophila pneumoniae PCR Not Detected Not Detected BIOFIRE TOR 05/15/2025 7:22 PM EDT [facility] Mycoplasma pneumo by PCR Not Detected Not Detected BIOFIRE TOR 05/15/2025 7:22 PM EDT [facility] Swab Nasopharyngeal structure / Unknown Collection / Unknown 05/15/2025 6:02 PM EDT 05/15/2025 6:23 PM EDT Narrative [facility] - 05/15/2025 7:22 PM EDT In the setting of a positive respiratory panel with a viral infection PLUS a negative procalcitonin without other underlying concern for bacterial infection, consider observing off antibiotics or discontinuation of antibiotics and continue supportive care. If the respiratory panel is positive for atypical bacterial infection (Bordetella pertussis, Chlamydophila pneumoniae, or Mycoplasma pneumoniae), consider antibiotic de-escalation to target atypical bacterial infection. Selene Lizarraga MD MICROBIOLOGY - GENERAL OR DERABLES Final Result [facility]
[address] [place] [address], documented in this encounter Visit Diagnoses Diagnosis Acute abdominal pain- Primary Abdominal pain, unspecified site History of peptic ulcer disease Personal history of peptic ulcer disease Nausea and vomiting in adult documented in this encounter Administered Medications Inactive Administered Medications - up to 3 most recent administrations Medication Order MAR Action Action Date Dose Rate Site iopamidol (ISOVUE-370) 76 % injection 100 mL 100 mL, Intravenous, Once in Imaging, On Wed05/15/25 at 2146, For 1 dose Given 05/15/2025 9:30 PM EDT 85 mL Morphine sulfate (PF) injection 4 mg 4 mg, Intravenous, Once, On Wed05/15/25 at 2137, For 1 dose, Based on patient request - if ordered for moderate or severe pain, provider allows for administration of a medication prescribed for a lower pain scale. (GUDELIA) Caution: Look alike/sound alike drug alert If given for pain, use the following pain scale: Mild Pain = Pain Score of 1-3, CPOT 1-2 Moderate Pain = Pain Score of 4-6, CPOT 3-4 Severe Pain = Pain Score of 7-10, CPOT 5-8 Given 05/15/2025 9:30 PM EDT 4 mg ondansetron (ZOFRAN) injection 4 mg 4 mg, Intravenous, Once, On Wed05/15/25 at 1801, For 1 dose, If multiple N/V medications ordered, use in the following order: Ondansetron, Prochlorperazine, Promethazine. Use PO unless patient refuses or patient unable to swallow. Given 05/15/2025 7:51 PM EDT 4 mg ondansetron (ZOFRAN) injection 4 mg 4 mg, Intravenous, Once, On Wed05/15/25 at 2137, For 1 dose, If multiple N/V medications ordered, use in the following order: Ondansetron, Prochlorperazine, Promethazine. Use PO unless patient refuses or patient unable to swallow. Given 05/15/2025 9:29 PM EDT 4 mg sodium chloride 0.9 % bolus 1,000 mL 1,000 mL, Intravenous, at 2,000 mL/hr, Administer over 0.5 Hours, Once, On Wed05/15/25 at 1800, For 1 dose New Bag 05/15/2025 7:51 PM EDT 1,000 mL 2000 mL/hr sodium chloride 0.9 % flush 10 mL 10 mL, Intravenous, As Needed, Line Care, Starting on Wed05/15/25 at 1724 documented in this encounter Active and Recently Administered Medications Times are shown in EDT. Scheduled Medication Order 05/13/2025 05/14/2025 05/15/2025 iopamidol (ISOVUE-370) 76 % injection 100 mL (COMPLETED) 100 mL, Intravenous, Once in Imaging, On Wed05/15/25 at 2146, For 1 dose 2130 (Given - Provid er: Rodriguez Aviles, RT, ARRT) Morphine sulfate (PF) injection 4 mg (COMPLETED) 4 mg, Intravenous, Once, On Wed05/15/25 at 2137, For 1 dose, Based on patient request - if ordered for moderate or severe pain, provider allows for administration of a medication prescribed for a lower pain scale. (GUDELIA) Caution: Look alike/sound alike drug alert If given for pain, use the following pain scale: Mild Pain = Pain Score of 1-3, CPOT 1-2 Moderate Pain = Pain Score of 4-6, CPOT 3-4 Severe Pain = Pain Score of 7-10, CPOT 5-8 2129 (Given - Provid er: Mark Anthony Harman RN) ondansetron (ZOFRAN) injection 4 mg (COMPLETED) 4 mg, Intravenous, Once, On Wed05/15/25 at 1801, For 1 dose, If multiple N/V medications ordered, use in the following order: Ondansetron, Prochlorperazine, Promethazine. Use PO unless patient refuses or patient unable to swallow. 1950 (Given - Provid er: Mark Anthony Harman RN) ondansetron (ZOFRAN) injection 4 mg (COMPLETED) 4 mg, Intravenous, Once, On Wed05/15/25 at 2137, For 1 dose, If multiple N/V medications ordered, use in the following order: Ondansetron, Prochlorperazine, Promethazine. Use PO unless patient refuses or patient unable to swallow. 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 The last day before reporting a new confirmed COVID-19 would be 12/08/20. -Alida Banda RN 09/09/2020 12/25/2020 COVID Screen (preop/placement) 05/15/2025 05/15/2025 05/15/2025 7:22 PM EDT Rhinovirus 05/15/2025 05/15/2025 06/14/2025 9:08 PM EDT documented as of this encounter Care Teams Speedometer Mechanic Relationship Specialty Start Date End Date Michaela Sousa APRN [facility] [place] [id number] F[place]OLINA [id number] PCP - General Internal Medicine 09/04/24 documented as of this encounter
--- OUTSIDE RECORDS SUMMARY | 2025-05-17 06:38 | XMS_ITS | Encounter Summary ---
Author Organization [facility] Address [address] [place] [address] Care Team Providers Care School Photographs Detailer Name Role Phone SousaMichaela sheehan FERNANDO Primary Care Provider + [phone] Reason for Visit * Auth/Cert Specialty Diagnoses / Procedures Referred By Contac t Referred To Contact Diagnoses Hematemesis, unspecified whether nausea present Hematemesis, unspecified whether nausea present [K92.0] Procedures [place] ESOPHAGOGASTRODUODENOSCOPY TRANSORAL DIAGNOSTIC ESOPHAGOGASTRODUODENOSCOPY Referral ID Status Reason Start Date Expiration Date Visits Re quested Visits Authorized 1 1 Encounter Details Date Type Department Care Team (Late st Contact Info) Description 05/17/2025 6:38 AM EDT - 05/17/2025 9:25 AM EDT Hospital Encounter [facility] ENDO SUITES [address] [place] [id number] Aminata Nassar MD [address] [facility] [address] [place] [address] Hematemesis, unspecified whether nausea present Discharge Disposition: Home or Self Care Social History Tobacco Use Types Packs/Day Years Used Date Smoking Tobacco: Never Passive Smoke Exposure: Never Smokeless Tobacco: Never Alcohol Use Standard Drinks/Week Comments No 0 (1 standard drink = 0.6 oz pur e alcohol) [facility] Utilities Answer Date Recorded In the past 12 months has [employer] electric, gas, oil, or water company threatened [...] Date Recorded Retired Total Score 0 05/07/2021 [facility] of Occupat ional [facility] - Occupational Stress Questionnaire Answer Date [...] things needed for daily living? No 12/10/2024 [place] Depression Scale Answer Date Recorded [place] Depression Scale Total 2 12/22/2024 The thought [...] 7:21 AM EDT Vicki Harrington RN * [place] Suicide Severity Rating Scale (Screener/Recent Self-Report) Question Answer Date of Assessment Author 6. Suicidal Behavior (Lifetime) No 7:21 AM EDT Vicki Martell RN documented as of this encounter Discharge Instructions * Attachments The following attachments cannot be sent through Care Everywhere. * General Anesthesia Adult Care After (Slovenian) * Upper Endoscopy Adult Care After (Slovenian) documented in this encounter Medications at [...] Liver - Underwent and tubal ligation at [facility]. - Two CT scans showed mild and moderate liver enlargement, respectively. 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 - Under [facility] care for mitochondrial disorder, discharged [...] SURGICAL HISTORY - and tubal ligation at [facility] - Gallbladder removal in 2009 - Last [...] opinion of the practitioner. Patient or patient business services sales representative verbalized consent for the use of Ambient Listening during the visit with Leah Castillo APRN for chart documentation. 05/16/2025 Leah Castillo APRN [facility] Gastroenterology documented in this encounter Nursing Notes [...] Description 10/31/2025 3:15 PM EST Office Visit [facility] [address] [facility] [address] [place] [address] Aminata Nassar MD [address] [address] documented as of this encounter Procedures Procedure Name Priority Date/Time Associated Diagnosis Comments TISSUE PATHOLOGY EXAM Routine 05/17/2025 8:15 AM EDT Hematemesis, unspecified whether nausea present PA ESOPHAGOGASTRODUODENOSCOP Y TRANSORAL DIAGNOSTIC 05/17/2025 8:00 AM EDT Hematemesis, unspecified whether nausea present UPPER GI ENDOSCOPY 05/17/2025 7:55 AM EDT documented in this encounter Results * Tissue Pathology Exam (05/17/2025 8:15 AM EDT) Case Report Surgical Pathology Report Case: [id number] Authorizing Provider: Aminata Nassar MD Collected: 05/17/2025 08:15 AM Ordering Location: [facility] Received: 05/17/2025 08:58 AM ENDO SUITES Pathologist: Seda Loredo MD Specimen: Gastric, Antrum, ANTRUM BXS 05/18/2025 12:47 PM EDT [facility] Clinical Information Hematemesis, unspecified whether nausea present 05/18/2025 12:47 PM EDT [facility] Final Diagnosis GASTRIC ANTRUM: Reactive gastropathy Negative for intestinal metaplasia, dysplasia, neoplasia, malignancy No Helicobacter like organisms identified on H and E 05/18/2025 12:47 PM EDT [facility] at 1247 EDT Gross Description 1. Gastric, Antrum. Received in formalin labeled antrum BXS is a 0.3 x 0.2 x 0.2 cm single murillo tissue fragment, submitted entirely in a single cassette. LDP 05/18/2025 12:47 PM EDT [facility] Microscopic Description The slides are reviewed and demonstrate histopathologic features supporting the above rendered diagnosis. 05/18/2025 12:47 PM EDT [facility] Tissue Pyloric antrum structure / Unknown 05/17/2025 8:15 AM EDT 05/17/2025 8:58 AM EDT us Aminata Nassar MD PATHOLOGY/CYTOLOGY ORDERABLES Fi nal Result [facility]
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 The last day before reporting a new confirmed COVID-19 would be 12/08/20. -Alida Banda RN 09/09/2020 12/25/2020 Rhinovirus 05/15/2025 05/15/2025 06/14/2025 9:08 PM EDT documented as of this encounter Care Teams School Photographs Detailer Relationship Specialty Start Date End Date Michaela Sousa APRN [facility] [place] [address] [place] [address] PCP - General Internal Medicine 09/04/24 documented as of this encounter
--- OUTSIDE RECORDS SUMMARY | 2025-05-17 08:00 | XMS_ITS | Encounter Summary ---
Author Organization [facility] Address [address] [place] [address] Care Team Providers Care Library Specialist Name Role Phone Michaela Sousa FERNANDO Primary Care Provider + [phone] Reason for Visit * Auth/Cert Specialty Diagnoses / Procedures Referred By Contac t Referred To Contact Diagnoses Hematemesis, unspecified whether nausea present Hematemesis, unspecified whether nausea present [K92.0] Procedures [place] ESOPHAGOGASTRODUODENOSCOPY TRANSORAL DIAGNOSTIC ESOPHAGOGASTRODUODENOSCOPY Referral ID Status Reason Start Date Expiration Date Visits Re quested Visits Authorized 1 1 Encounter Details Date Type Department Care Team (Late st Contact Info) Description 05/17/2025 8:00 AM EDT Anesthesia Event [facility] ENDO SUITES [address] [place] [address] Bruno Michael MD [address] [place] [id number] Anesthesia Record Procedure Summary Procedure Name Responsible [...] 0.6 oz pur e alcohol) [facility] Utilities Answer Date Recorded In the past 12 months has [employer], oil, or water [employer] threatened to shut off services in your [...] Date Recorded Retired Total Score 0 05/07/2021 [facility] of Occupat ional [facility] - Occupational Stress Questionnaire Answer Date [...] things needed for daily living? No 12/10/2024 [place] Depression Scale Answer Date Recorded [place] Depression Scale Total 2 12/22/2024 The thought [...] GED or equivalent No 12/10/2024 Preferred Language Georgian 12/10/2024 PHQ-2 Answer Date Recorded Patient Health [...] 7:21 AM EDT Vicki Harrington RN * [place] Suicide Severity Rating Scale (Screener/Recent Self-Report) Question Answer Date of Assessment Author 6. Suicidal Behavior (Lifetime) No 7:21 AM EDT Vicki Martell, DEEPAK documented as of this encounter OR Notes * Anesthesia Postprocedure Evaluation - Marilee Gomez CRNA - 05/17/2025 8:31 AM EDT Patient: Maia Kovacs Procedure Summary Date: 05/17/25 Room / Location: [facility] ENDOSCOPY 2 / [facility] Anesthesia Start: 799 Anesthesia Stop: [...] and Staff Patient location during procedure: OR CAMP ASSISTANT/CAA: Marilee Gomez CRNA Indications and Patient Condition Indications for airway management: airway protection Preoxygenated: yes MILS not maintained throughout Mask difficulty assessment: 0 - not attempted Final Airway Details Final airway type: endotracheal airway Successful airway: ETT Cuffed: yes Successful intubation technique: RSI and video laryngoscopy Adjuncts used in placement: intubating stylet Endotracheal tube insertion site: oral Blade: Ecsobedo Blade size: 3 ETT size (mm): 7.0 [...] fall * Anesthesia Preprocedure Evaluation - Bruno Mihcael MD - 05/17/2025 6:54 AM EDT Anesthesia [...] Cardiovascular ECG reviewed (+) hypertension (-) past [place], dysrhythmias, angina, cardiac stents ROS comment: ECG NSR ECHO 2020 EF 60% no significant valvular disease Neuro/Psych (+) headaches, psychiatric history (-) seizures, CVA GI/Hepatic/Renal/Endo (+) GERD, PUD, GI bleeding upper , liver disease (enzyme for ATP missing) history of elevated LFT (-) no renal disease, diabetes, no thyroid disorder Musculoskeletal 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 Plan discussed with CAMP ASSISTANT. CODE STATUS: documented in this encounter Plan of Treatment Upcoming Encounters Date Type Department Care Team (Late st Contact Info) Description 10/31/2025 3:15 PM EST Office Visit [facility] GASTROENTEROLOGY [address] [phone] Aminata Nassar MD [address] [address] documented as of this encounter Procedures Procedure [...] and Staff Patient location during procedure: OR CAMP ASSISTANT/CAA: Marilee Gomez CRNA Indications and Patient Condition [...] Indicated Resolved Time COVID (History) Comment:Per regional protective signal installer for [facility] 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 The last day before reporting a new confirmed COVID-19 would be 12/08/20. -Alida Banda RN 09/09/2020 12/25/2020 Rhinovirus 05/15/2025 05/15/2025 06/14/2025 9:08 PM EDT documented as of this encounter Care Teams Library Specialist Relationship Specialty Start Date End Date Michaela Sousa APRN [address] [facility] [address] [place] [address] PCP - General Internal Medicine 09/04/24 documented as of this encounter
--- OUTSIDE RECORDS SUMMARY | 2025-05-17 08:00 | XMS_ITS | Encounter Summary ---
Author Organization [facility] Address [address] [place] [address] Care Team Providers Care Fibre Optic Cable Splicer Name Role Phone SousaMichaela sheehan FERNANDO Primary Care Provider + [phone] Reason for Visit * Auth/Cert Specialty Diagnoses / Procedures Referred By Contac t Referred To Contact Diagnoses Hematemesis, unspecified whether nausea present Hematemesis, unspecified whether nausea present [K92.0] Procedures DE ESOPHAGOGASTRODUODENOSCOPY TRANSORAL DIAGNOSTIC ESOPHAGOGASTRODUODENOSCOPY Referral ID Status Reason Start Date Expiration Date Visits Re quested Visits Authorized 1 1 Encounter Details Date Type Department Care Team (Late st Contact Info) Description 05/17/2025 8:00 AM EDT - 05/17/2025 8:33 AM EDT Surgery [facility] ENDO SUITES [address] [place] [address] Aminata Nassar MD 1720 [facility] [address] [place] [address] ESOPHAGOGASTRODUODENOSCOPY [33006 (CPT )] Social History Tobacco Use Types Packs/Day Years Used Date Smoking Tobacco: Never Passive Smoke Exposure: Never Smokeless Tobacco: Never Alcohol Use Standard Drinks/Week Comments No 0 (1 standard drink = 0.6 oz pur e alcohol) [facility] Utilities Answer Date Recorded In the past 12 months has [employer] electric, gas, oil, or water company threatened [...] Date Recorded Retired Total Score 0 05/07/2021 [facility] - Occupational Stress Questionnaire Answer [...] things needed for daily living? No 12/10/2024 [place] Depression Scale Answer Date Recorded [place] Depression Scale Total 2 12/22/2024 The thought [...] GED or equivalent No 12/10/2024 Preferred Language Guatemalan 12/10/2024 PHQ-2 Answer Date Recorded Patient Health [...] 7:21 AM EDT Vicki Harrington RN * [place] Suicide Severity Rating Scale (Screener/Recent Self-Report) Question Answer Date of Assessment Author 6. Suicidal Behavior (Lifetime) No 7:21 AM EDT Vicki Martell RN documented as of this encounter Discharge Instructions * Attachments The following attachments cannot be sent through Care Everywhere. * General Anesthesia Adult Care After (Guatemalan) * Upper Endoscopy Adult Care After (Guatemalan) documented in this encounter Medications at Time [...] Liver - Underwent and tubal ligation at [facility] [place]. - Two CT scans showed mild and moderate liver enlargement, respectively. 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 - Under [facility] care for mitochondrial disorder, discharged in [...] SURGICAL HISTORY - and tubal ligation at [facility] [place] - Gallbladder removal in 2009 - Last [...] opinion of the practitioner. Patient or patient development representative verbalized consent for the use of Ambient Listening during the visit with Leah Castillo APRN for chart documentation. 05/16/2025 Leah Castillo APRN [facility] Gastroenterology documented in this encounter Nursing Notes [...] Visit [facility] GASTROENTEROLOGY [address] [address] Aminata Nassar MD [address] [address] documented as of this encounter Procedures Procedure Name Priority Date/Time Associated Diagnosis Comments TISSUE PATHOLOGY EXAM Routine 05/17/2025 8:15 AM EDT Hematemesis, unspecified whether nausea present DE ESOPHAGOGASTRODUODENOSCOP Y TRANSORAL DIAGNOSTIC 05/17/2025 8:00 AM EDT Hematemesis, unspecified whether nausea present UPPER GI ENDOSCOPY 05/17/2025 7:55 AM EDT documented in this encounter Results * Tissue Pathology Exam (05/17/2025 8:15 AM EDT) Case Report Surgical Pathology Report Case: [id number] Authorizing Provider: Aminata Nassar MD Collected: 05/17/2025 08:15 AM Ordering Location: [facility] Received: 05/17/2025 08:58 AM ENDO SUITES Pathologist: Seda Loredo MD Specimen: Gastric, Antrum, ANTRUM BXS 05/18/2025 12:47 PM EDT [facility]OR[facility] Clinical Information Hematemesis, unspecified whether nausea present 05/18/2025 12:47 PM EDT [facility] Final Diagnosis GASTRIC ANTRUM: Reactive gastropathy Negative for intestinal metaplasia, dysplasia, neoplasia, malignancy No Helicobacter like organisms identified on H and E 05/18/2025 12:47 PM EDT [facility] at 1247 EDT Gross Description 1. Gastric, Antrum. Received in formalin labeled antrum BXS is a 0.3 x 0.2 x 0.2 cm single murillo tissue fragment, submitted entirely in a single cassette. LDP 05/18/2025 12:47 PM EDT [facility] Microscopic Description The slides are reviewed and demonstrate histopathologic features supporting the above rendered diagnosis. 05/18/2025 12:47 PM EDT [facility] Tissue Pyloric antrum structure / Unknown 05/17/2025 8:15 AM EDT 05/17/2025 8:58 AM EDT us Aminata Nassar MD PATHOLOGY/CYTOLOGY ORDERABLES Fi nal Result [facility]
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 The last day before reporting a new confirmed COVID-19 would be 12/08/20. -Alida Banda RN 09/09/2020 12/25/2020 Rhinovirus 05/15/2025 05/15/2025 06/14/2025 9:08 PM EDT documented as of this encounter Care Teams Fibre Optic Cable Splicer Relationship Specialty Start Date End Date Michaela Sousa APRN [facility] [place] [address] [place] [address] PCP - General Internal Medicine 09/04/24 documented as of this encounter
--- OUTSIDE RECORDS SUMMARY | 2025-06-01 15:38 | XMS_ITS | Encounter Summary ---
Author Organization [facility] Address [address] [place] [address] Care Team Providers Care Policy Loan Calculator Name Role Phone SousaSoraidarebekah KING Primary Care Provider + [phone] Reason for Visit * Reason Comments Chest Pain Encounter Details Date Type Department Care Team (Late st Contact Info) Description 06/01/2025 3:38 PM EDT - 06/01/2025 7:10 PM EDT Emergency [facility] EMERGENCY DEPARTMENT [address] [place] [phone] Isiah Barkley MD [address] [facility] [place] [address] Chest pain, unspecified type (Primary Dx); Generalized abdominal pain; Chronic gastritis without bleeding, unspecified gastritis type Discharge Disposition: Home or Self Care Social History Tobacco Use Types Packs/Day Years Used Date Smoking Tobacco: Never Passive Smoke Exposure: Never Smokeless Tobacco: Never Alcohol Use Standard Drinks/Week Comments No 0 (1 standard drink = 0.6 oz pur e alcohol) [facility] Utilities Answer Date Recorded In the past 12 months has [employer], gas, oil, or water [employer] threatened to shut off services in your home? No 12/10/2024 AUDIT-C Answer Date Recorded Q1: How often do you have a drink containing alcohol? Never 12/10/2024 Q2: How many drinks containi ng alcohol do you have on a typical day when you are drinking? Patient does not drink 03/16/202 5 Q3: How often do you have si x or more drinks on one occasion? Never 12/10/2024 Overall Financial Resource Strain (CARDIA) Answe r Date Recorded How hard is it for you to pa y for the very basics like food, housing, medical care, and heating? Not hard at all 12/10/2024 PHQ-2 Answer Date Recorded Retired Total Score 0 05/07/2021 [facility] Occupational Stress Questionnaire Answer [...] things needed for daily living? No 12/10/2024 [place] Depression Scale Answer Date Recorded [place] Depression Scale Total 2 12/22/2024 The thought of harming myself has occurred to me . Never 12/22/2024 Abuse Screen Answer Date Recorded Feels Unsafe at Home or Work/School no 06/01/2025 Feels Threatened by Someone no 01/2025 Does Anyone Try to Keep You From Having Contact with Others or Doing Things Outside Your Home? no 06/01/2025 Physical Signs of Abuse Present no 06/01/2025 Housing Stability Answer Date Recorded Current Living [...] GED or equivalent No 12/10/2024 Preferred Language Bruneian 12/10/2024 PHQ-2 Answer Date Recorded Patient Health [...] Reading Time Taken Comments Blood Pressure 103/72 06/01/2025 6:30 PM EDT Pulse 62 06/01/2025 6:30 PM EDT Temperature 36.6 C (97.8 F) 06/01/2025 2:35 PM EDT Respiratory Rate 16 06/01/2025 2:35 PM EDT Oxygen Saturation 98% 06/01/2025 6:30 PM EDT Inhaled Oxygen Concentration - - Weight 73 kg (160 lb 15 oz) 06/01/2025 2:35 PM E DT Height 175.3 cm (5' 9 ) 06/01/2025 2:35 PM EDT Body Mass Index 23.77 06/01/2025 2:35 PM EDT documented in this encounter Functional Status * Calculated C-SSRS Risk Score (Lifetime/Recent) Answer Date of Assessment Author No Risk Indicated 06/01/2025 6:18 PM EDT Jody Gauthier, DEEPAK * [place] Suicide Severity Rating Scale (Screener/Recent Self-Report) Question Answer Date of Assessment Author 1. Wish to be (Past 1 Month) No 025 6:18 PM EDT Jody Gauthier RN 2. Non-Specific Active Suici genevieve Thoughts (Past 1 Month) No 06/01/2025 6:18 PM EDT Gwen Gauthier RN 6. Suicidal Behavior (Lifetime) No 5 6:18 PM EDT Jody Gauthier RN documented as of this encounter Discharge Instructions * Attachments The following attachments cannot be sent through Care Everywhere. * Gastritis Adult (Bruneian) * Nonspecific Chest Pain Adult [id number] (Bruneian) * Abdominal Pain Adult [id number] (Bruneian) documented in this encounter Medications at Time [...] (Two) Times a Day. 180 tablet 3 06/05/2025 polyethylene glycol (MIRALAX) 17 g packet Take [...] as of this encounter ED Notes * Darrell Coppola Jr., URVASHI - 06/01/2025 2:48 PM EDT Images from the original note were not included. Subjective History of Present Illness: Chief Complaint: Abdominal pain, mid sternal chest pain, burning History of Present Illness: 35-year-old female presents with abdominal pain and mid chest pain, shestates the pain feels like a burning sensation. She is most concerned about her abdominal pain, shehas a history of GI bleeds. She had an EGD performed on May 17, 2025. She was told that she had a healing ulcer. She has been on a PPI, H2 francis, and Carafate. She has had 7 GI bleeds in the past . She continues on her current medication. She states that the mid right-sided abdominal pain started approximately 3 to 4 days ago, radiates into her back and shoulder area. She denies any bloody ortarry stools, she is not vomiting blood at this time. Onset: Gradual Duration: Abdominal pain started 3 to 4 days ago Exacerbating / Alleviating factors: Patient has history of gastric ulcers, discomfort and pain witheating Associated symptoms: Pain radiating into her back and shoulder area Nurses Notes reviewed and agree, including vitals, allergies, social history and prior medical history. REVIEW OF SYSTEMS: All systems reviewed and not pertinent unless noted. Review of Systems Gastrointestinal: Positive for abdominal pain. All other systems reviewed and are negative. Past Medical History: Diagnosis Date Abdominal pain Adrenal insufficiency (Burlingame's disease) Anemia Cholelithiasis Lap ignacia 2010 Elevated liver enzymes 02/27/2018 Gastric ulcer 2019 hx frequent GI bleeds- 2019 admitted for [...] status asthmaticus 05/07/2018 no problems in years Thyroid nodule Vocal cord dysfunction Allergies: Celecoxib, Coconut (cocos nucifera), Pineapple, Sulfa antibiotics, Latex, Bentyl [dicyclomine hcl],Metoclopramide, Nsaids, and Sulfamethoxazole-trimethoprim Past Surgical History: Procedure Laterality Date ABDOMINAL SURGERY 2019 Exploratory lap SECTION N/A 05/16/2021 Procedure: SECTION [...] Location: [facility]; Service: Gastroenterology; Laterality: N/A; ENDOSCOPY N/A 05/17/2025 Procedure: ESOPHAGOGASTRODUODENOSCOPY; Surgeon: Aminata Nassar MD; Location: [facility]; Service: Gastroenterology; Laterality: N/A; FULGURATION ENDOMETRIOSIS 2019 (done twice) KNEE MENISCECTOMY Left LIVER BIOPSY 2018 LUMBAR SYMPATHETIC NERVE BLOCK RHINOPLASTY cheerleading, deviated septum and crush injury and had surgery/reconstruction SALPINGECTOMY Bilateral TONSILLECTOMY child TUBAL ABDOMINAL LIGATION 12/10/2024 UPPER GASTROINTESTINAL ENDOSCOPY 2009 Several GI bleed several scopes Social History Socioeconomic History Marital status: Spouse name: nolan Number of children: 1 Highest education level: High school graduate Tobacco Use Smoking status: Never Passive exposure: Never Smokeless tobacco: Never Vaping Use Vaping status: Never Used Substance and Sexual Activity Alcohol use: No Drug use: Never Sexual activity: Yes Partners: Male control/protection: Bilateral salpingectomy Family History Problem Relation Age of Onset [...] Hypertension Paternal Grandfather Colon cancer Paternal Grandfather Objective Physical Exam: BP 103/72 Pulse 62 Temp 97.8 ??F (36.6 ??C) (Oral) Resp 16 Ht 175.3 cm (69 ) Wt 73 kg (160 lb 15 oz) SpO2 98% BMI 23.77 kg/m?? Physical Exam Vitals and nursing note reviewed. Constitutional: Appearance: She is well-developed. HENT: Head: Normocephalic and atraumatic. Cardiovascular: Rate and Rhythm: Normal rate and regular rhythm. Pulmonary: Effort: Pulmonary effort is normal. Breath sounds: Normal breath sounds. Musculoskeletal: General: Normal range of motion. Cervical back: Normal range of motion and neck supple. Skin: General: Skin is warm and dry. Neurological: Mental Status: She is alert and oriented to person, place, and time. Deep Tendon Reflexes: Reflexes are normal and symmetric. Procedures ED Course: EKG interpretation by me: Sinus rhythm, rate of 74, narrow QRS, normal axis, no acute ST abnormalities, normal EKG, CT abdomen pelvis interpretation by me: No acute intra-abdominal abnormality, no free air or bowel obstruction ED Course as of 06/01/252217Jun 01, 2025 171 Review of previous non ED visits, prior labs, prior imaging, available notes from prior evaluations or visits with specialists, medication list, allergies, past medical history, past surgical history Reviewed recent admission and procedure from 05/17/2025, for hematemesis, I reviewed the admission, labs, EGD report and discharge [CS] 1718 I Personally reviewed all laboratory studies performed in the emergency department labs appearstable, no significant abnormal findings [CS] 1718 I updated the patient/family on all pending labs and lab results, and all pending radiology and results and answered all questions. [CS] ED Course User Index [CS] Darrell Coppola Jr., PA-C Lab Results (last 24 hours) Procedure Component Value Units Date/Time CBC & Differential [[id number]] (Normal) Collected: 06/01/25 150 Specimen: Blood Updated: 06/01/25 1531 Narrative: The following orders were created for panel order CBC & Differential. Procedure Abnormality Status --------- ------ CBC Auto Differential[[id number]] Normal Final result Please view results for these tests on the individual orders. Comprehensive Metabolic Panel [[id number]] Collected: 06/01/251505 Specimen: Blood Updated: 06/01/25 155 Glucose 88 mg/dL BUN 9.5 mg/dL Creatinine 0.71 mg/dL Sodium 140 mmol/L Potassium 3.5 mmol/L Chloride 103 mmol/L CO2 27.0 mmol/L Calcium 9.4 mg/dL Total Protein 7.7 g/dL Albumin 4.9 g/dL ALT (SGPT) 13 U/L AST (SGOT) 17 U/L Alkaline Phosphatase 117 U/L Total Bilirubin 0.2 mg/dL Globulin 2.8 gm/dL Comment: Calculated Result A/G Ratio 1.8 g/dL BUN/Creatinine Ratio 13.4 Anion Gap 10.0 mmol/L eGFR 115.3 mL/min/1.73 Narrative: GFR Categories in Chronic Kidney Disease (CKD) GFR Category GFR (mL/min/1.73) Interpretation G1 90 or greater Normal or high (1) G2 60-89 Mild decrease (1) G3a 45-59 Mild to moderate decrease G3b 30-44 Moderate to severe decrease G4 15-29 Severe decrease G5 14 or less Kidney failure (1)In the absence of evidence of kidney disease, neither GFR category G1 or G2 fulfill the criteriafor CKD. eGFR calculation 2020 CKD-EPI creatinine equation, which does not include race as a factor Lipase [[id number]] (Normal) Collected: 06/01/25 150 Specimen: Blood Updated: 06/01/25 1550 Lipase 17 U/L Urinalysis With Microscopic If Indicated (No Culture) - Urine, Clean Catch [[id number]] (Abnormal) Collected: 06/01/251505 Specimen: Urine, Clean Catch Updated: 06/01/251551 Color, UA Yellow Appearance, UA Clear pH, UA 6.0 Specific [place], UA 1.023 Glucose, UA Negative Ketones, UA Negative Bilirubin, UA Negative Blood, UA Small (1+) Protein, UA Negative Leuk Esterase, UA Negative Nitrite, UA Negative Urobilinogen, UA 1.0 E.U./dL hCG, Quantitative, [[id number]] Collected: 06/01/251505 Specimen: Blood Updated: 06/01/251557 HCG Quantitative <0.10 mIU/mL Narrative: HCG Ranges by Gestational Age Females - [...] mIU/mL 18 Weeks 8,099 - 58,176 mIU/mL High Sensitivity Troponin T [[id number]] (Normal) Collected: 06/01/251505 Specimen: Blood Updated: 06/01/251553 HS Troponin T <6 ng/L Narrative: High Sensitive Troponin T Reference Range: <14.0 ng/L- Negative Female for AMI <22.0 ng/L- Negative Male for AMI >=14 - Abnormal Female indicating possible myocardial injury. >=22 - Abnormal Male indicating possible myocardial injury. Clinicians would have to utilize clinical acumen, EKG, Troponin, and serial changes to determine ifit is an Acute Myocardial Infarction or myocardial injury due to an underlying chronic condition. CBC Auto Differential [[id number]] (Normal) Collected: 06/01/25 1506 Specimen: Blood Updated: 06/01/25 1531 WBC 7.69 10*3/mm3 RBC 4.55 10*6/mm3 Hemoglobin 13.1 g/dL Hematocrit 40.5 % MCV 89.0 fL MCH 28.8 pg MCHC 32.3 g/dL RDW 13.2 % RDW-SD 43.2 fl MPV 9.0 fL Platelets 318 10*3/mm3 Neutrophil % 65.7 % Lymphocyte % 22.8 % Monocyte % 8.5 % Eosinophil % 1.8 % Basophil % 0.7 % Immature Grans % 0.5 % Neutrophils, Absolute 5.06 10*3/mm3 Lymphocytes, Absolute 1.75 10*3/mm3 Monocytes, Absolute 0.65 10*3/mm3 Eosinophils, Absolute 0.14 10*3/mm3 Basophils, Absolute 0.05 10*3/mm3 Immature Grans, Absolute 0.04 10*3/mm3 nRBC 0.0 /100 WBC Urinalysis, Microscopic Only - Urine, Clean Catch [[id number]] (Abnormal) Collected: 06/01/25 1506 Specimen: Urine, Clean Catch Updated: 06/01/25 1552 RBC, UA 0-2 /HPF WBC, UA 0-2 /HPF Bacteria, UA None Seen /HPF Squamous Epithelial Cells, UA 3-6 /HPF Hyaline Casts, UA 0-2 /LPF Methodology Automated Microscopy POC Urine [[id number]] (Normal) Collected: 06/01/25 1509 Specimen: Urine Updated: 06/01/25 1510 HCG, Urine, QL Negative Lot Number [id number] Internal Positive Control Positive Internal Negative Control Negative Expiration Date 09/13/2026 High Sensitivity Troponin T 1Hr [[id number]] Collected: 06/01/25 1603 Specimen: Blood Updated: 06/01/25 1645 HS Troponin T <6 ng/L Troponin T Numeric Delta -- Comment: Unable to calculate. Narrative: High Sensitive Troponin T Reference Range: <14.0 ng/L- Negative Female for AMI <22.0 ng/L- Negative Male for AMI >=14 - Abnormal Female indicating possible myocardial injury. >=22 - Abnormal Male indicating possible myocardial injury. Clinicians would have to utilize clinical acumen, EKG, Troponin, and serial changes to determine ifit is an Acute Myocardial Infarction or myocardial injury due to an underlying chronic condition. CT Abdomen Pelvis With & Without Contrast Result Date: 06/01/2025 CT ABDOMEN PELVIS W WO CONTRAST Date of Exam: 06/01/2025 4:20 PM EDT Indication: ruq mid abdominal pain h/o GI bleed recent egs. Comparison: 05/15/2025 and prior Technique: Axial CT images were obtainedof the abdomen and pelvis before and after the uneventful intravenous administration of iodinated contrast. Sagittal and coronal reconstructions were performed. Automated exposure control and iterative reconstruction methods were used. FINDINGS: Abdomen/Pelvis: There is motion limitation. Lower Chest: Motion limited imaging of the lung bases is grossly clear. Minimal atelectasis noted within the left lung peripherally. There is no free air noted below the diaphragm or air along the visualized es ophagus or at the GE junction. Organs: Pre and postcontrast imaging was evaluated. Punctate nonobstructing calculi are noted of the kidneys bilaterally. Kidneys enhance symmetrically without acute abnormality. No evidence of obstructive uropathy is noted. Multiphase imaging of the liver, spleen, pancreas and adrenal glands are unremarkable. The gallbladder is surgically absent. GI/Bowel: The stomach and the small bowel are unremarkable in appearance. Ileocecal valve and appendix demonstrate no acute abnormality. Colon is relatively decompressed which accentuates prominence of the wall thickness. No significant adjacent inflammatory change of the adjacent pericolonic fat is noted. Mild degree of underlying colitis cannot be excluded. No suspicious mesenteric adenopathy or fluid collectionsare noted Pelvis: The uterus, ovaries and the urinary bladder are unremarkable Peritoneum/Retroperitoneum: Aorta is normal in caliber. No suspicious retroperitoneal adenopathy Bones/Soft Tissues: No acute osseous abnormality Impression: 1.Mild prominence of the wall thickness of the colon which is favored to be artifactualin nature. Mild degree of underlying colitis can not be excluded. 2.Bilateral nonobstructing renal calculi. 3.Other findings as above. Electronically Signed: Jimmie Pompa MD 06/01/2025 5:03 PM EDTWorkstation ID: [id number] HEART Score: 1 Medical Decision Making Patient Presentation abdominal pain, chest pain DDX gastritis, enteritis, pleurisy, pulmonary edema, PA, urinary tract infection, GI bleed Data Review/ Non ED Records /Analysis/Ordering unique tests Review of previous non ED visits, priorlabs, prior imaging, available notes from prior evaluations or visits with specialists, medication list, allergies, past medical history, past surgical history Independent Review Studies I Personally reviewed all laboratory studies performed in the emergency department Intervention/Re-evaluation intervention included IV fluids, antiemetics and pain medicine Independent Clinician no consultation Risk Stratification tools/clinical decision rules patient presented with a burning sensation in hermid chest, significant history for gastritis and gastric ulcer. Recent EGD, she has also had previous GI bleeds. I was concerned about a GI bleed, gastritis, nonspecific chest pain, less likely I also considered an PA. Labs were drawn and a CT scan was done of the abdomen pelvis she was given pain medication GI cocktail and fluids. Symptoms were improved, no signs of a GI bleed, she had nonspecific colitis. She is on appropriate medication for gastritis, and has follow-up with her GI doctor, she stable for discharge Shared Decision Making discussed all finding with patient and she was agreeable Disposition patient stable for discharge Problems Addressed: Chest pain, unspecified type: complicated acute illness or injury Chronic gastritis without bleeding, unspecified gastritis type: complicated acute illness or injury Generalized abdominal pain: complicated acute illness or injury Amount and/or Complexity of Data Reviewed Labs: ordered. Decision-making details documented in ED Course. Radiology: ordered and independent interpretation performed. Decision-making details documented in ED Course. ECG/medicine tests: ordered and independent interpretation performed. Decision- making details documented in ED Course. Risk OTC drugs. Prescription drug management. Final diagnoses: Chest pain, unspecified type Generalized abdominal pain Chronic gastritis without bleeding, unspecified gastritis type Disposition DISCHARGE Patient discharged in stable condition. Reviewed implications of results, diagnosis, meds, responsibility to follow up, warning signs and symptoms of possible worsening, potential complications and reasons to return to ER. Patient/Family voiced understanding of above instructions. Discussed plan for discharge, as there is no emergent indication for admission. Pt/family is agreeable and understands need for follow up and possible repeat testing. Pt/family is aware that discharge does not mean that nothing is wrong but that it indicates no emergency is currently present that requires admission and they must continue care with follow-up as given below or with a physician of their choice. FOLLOW-UP [facility]Y [facility]PARTMENT [address] [facility] [phone] If symptoms worsen LarsGabbyMichaela, [employer]PER[employer] [address] [place] [address] Schedule an appointment as soon as possible for a visit Medication List No changes were made to your prescriptions during this visit. Darrell Coppola Jr., PA-C 06/01/25 2210 Cosigned by Isiah Barkley MD at 06/04/2025 12:31 PM EDT Associated attestation - Isiah Barkley MD - 06/04/2025 12:31 PM EDT New. Troponin x 2 is normal. test is negative. Urine does not show infection. Labs were otherwise normal. CT scan of the abdomen pelvis shows mild thickening of the wall of the colon concerning for colitis. EKG performed 06/01/2025 at 1440 inter by me shows normal sinus rhythm, heart rate 74, QRS 74, normalQTc, no acute ischemic changes. SHARED APC NON FACE TO FACE: I performed a substantive part of the MDM during the patient's E/M visit. I personally made or approved the documented management plan and acknowledge its risk of complications. Isiah Barkley MD 06/04/2025 12:30 EDT documented in this encounter Plan of Treatment Upcoming Encounters Date Type Department Care Team (Late st Contact Info) Description 10/31/2025 3:15 PM EST Office Visit [facility] GASTRO[facility]OLOGY [address] [phone] Aminata Nassar MD [address] [address] documented as of this encounter Procedures Procedure Name Priority Date/Time Associated Diagnosis Comments CT ABDOMEN PELVIS W WO CONTRAST STAT 06/01/2025 4:32 PM EDT HIGH SENSITIVITIY TROPONIN T 1HR STAT 06/01/2025 4:03 PM EDT POCT PEFORM URINE STAT 06/01/2025 3:09 PM EDT BLACK TOP STAT 06/01/2025 3:06 PM EDT GOLD TOP - SST STAT 06/01/2025 3:06 PM EDT DK GREEN TOP STAT 06/01/2025 3:06 PM EDT URINALYSIS, MICROSCOPIC ONLY STAT 06/01/2025 3:06 PM EDT URINALYSIS W/ MICROSCOPIC IF INDICATED (NO CULTURE) STAT 06/01/2025 3:06 PM EDT CBC WITH AUTO DIFFERENTIAL STAT 06/01/2025 3:06 PM EDT LAVENDER TOP STAT 06/01/2025 3:06 PM EDT LIGHT BLUE TOP STAT 06/01/2025 3:06 PM EDT RAINBOW DRAW STAT 06/01/2025 3:06 PM EDT TROPONIN STAT 06/01/2025 3:06 PM EDT CBC AND DIFFERENTIAL STAT 06/01/2025 3:06 PM EDT HCG, QUANTITATIVE, STAT 06/01/2025 3:06 PM EDT LIPASE STAT 06/01/2025 3:06 PM EDT COMPREHENSIVE METABOLIC PANEL STAT 06/01/2025 3:06 PM EDT ECG 12-LEAD STAT 06/01/2025 2:40 PM EDT documented in this encounter Results * CT Abdomen Pelvis With & Without Contrast (06/01/2025 4:32 PM EDT) Anatomical Region Laterality Modality Abdomen, Pelvis N/A Computed Tomogra phy 06/01/2025 4:52 PM EDT Impressions 06/01/2025 5:03 PM EDT 1.Mild prominence of the wall thickness of the colon which is favored to be artifactual in nature. Mild degree of underlying colitis can not be excluded. 2.Bilateral nonobstructing renal calculi. 3.Other findings as above. Electronically Signed: Jimmie Pompa MD 06/01/2025 5:03 PM EDT Workstation ID: [id number] Narrative 06/01/2025 5:[address] ABDOMEN PELVIS W WO CONTRAST Date of Exam: 06/01/2025 4:20 PM EDT Indication: ruq mid abdominal pain h/o GI bleed recent egs. Comparison: 05/15/2025 and prior Technique: Axial CT images were obtained of the abdomen and pelvis before and after the uneventful intravenous administration of iodinated contrast. Sagittal and coronal reconstructions were performed. Automated exposure control and iterative reconstruction methods were used. FINDINGS: Abdomen/Pelvis: There is motion limitation. Lower Chest: Motion limited imaging of the lung bases is grossly clear. Minimal atelectasis noted within the left lung peripherally. There is no free air noted below the diaphragm or air along the visualized esophagus or at the GE junction. Organs: Pre and postcontrast imaging was evaluated. Punctate nonobstructing calculi are noted of the kidneys bilaterally. Kidneys enhance symmetrically without acute abnormality. No evidence of obstructive uropathy is noted. Multiphase imaging of the liver, spleen, pancreas and adrenal glands are unremarkable. The gallbladder is surgically absent. GI/Bowel: The stomach and the small bowel are unremarkable in appearance. Ileocecal valve and appendix demonstrate no acute abnormality. Colon is relatively decompressed which accentuates prominence of the wall thickness. No significant adjacent inflammatory change of the adjacent pericolonic fat is noted. Mild degree of underlying colitis cannot be excluded. No suspicious mesenteric adenopathy or fluid collections are noted Pelvis: The uterus, ovaries and the urinary bladder are unremarkable Peritoneum/Retroperitoneum: Aorta is normal in caliber. No suspicious retroperitoneal adenopathy Bones/Soft Tissues: No acute osseous abnormality Procedure Note Jimmie Pompa MD - 06/01/2025 CT ABDOMEN PELVIS W WO CONTRAST Date of Exam: 06/01/2025 4:20 PM EDT Indication: ruq mid abdominal pain h/o GI bleed recent egs. Comparison: 05/15/2025 and prior Technique: Axial CT images were obtained of the abdomen and pelvis beforeand after the uneventful intravenous administration of iodinated contrast.Sagittal and coronal reconstructions were performed. Automated exposurecontrol and iterative reconstruction methods were used. FINDINGS: Abdomen/Pelvis: There is motion limitation. Lower Chest: Motion limited imaging of the lung bases is grossly clear.Minimal atelectasis noted within the left lung peripherally. There is no free air noted below the diaphragm or air along the visualizedesophagus or at the GE junction. Organs: Pre and postcontrast imaging was evaluated. Punctatenonobstructing calculi are noted of the kidneys bilaterally. Kidneysenhance symmetrically without acute abnormality. No evidence ofobstructive uropathy is noted. Multiphase imaging of the liver, spleen, pancreas and adrenal glands areunremarkable. The gallbladder is surgically absent. GI/Bowel: The stomach and the small bowel are unremarkable in appearance.Ileocecal valve and appendix demonstrate no acute abnormality. Colon isrelatively decompressed which accentuates prominence of the wallthickness. No significant adjacent inflammatory change of the adjacent pericolonic fat is noted. Mild degreeof underlying colitis cannot be excluded. No suspicious mesentericadenopathy or fluid collections are noted Pelvis: The uterus, ovaries and the urinary bladder are unremarkable Peritoneum/Retroperitoneum: Aorta is normal in caliber. No suspiciousretroperitoneal adenopathy Bones/Soft Tissues: No acute osseous abnormality IMPRESSION: 1.Mild prominence of the wall thickness of the colon which is favored sweta artifactual in nature. Mild degree of underlying colitis can not beexcluded. 2.Bilateral nonobstructing renal calculi. 3.Other findings as above. Electronically Signed: Jimmie Pompa MD 06/01/2025 5:03 PM EDT Workstation ID: [id number] Isiah Barkley MD [facility] [place]LES Final R esult * High Sensitivity Troponin T 1Hr (06/01/2025 4:03 PM EDT) HS Troponin T <6 <14 ng/L 06/01/2025 4:45 PM EDT [facility] Troponin T Numeric Delta 06/01/2025 4:45 PM EDT [facility] Comment:Unable to calculate. Blood Line / Unknown 06/01/2025 4: 03 PM EDT 06/01/2025 4:14 PM EDT Narrative [facility] - 06/01/2025 4:45 PM EDT High Sensitive Troponin T Reference [...] injury due to an underlying chronic condition. Isiah Barkley MD LAB BLOOD ORDERABLES Kate l Result [facility]
[address] [place] [address], [place] [phone] * POC Urine (06/01/2025 3:09 PM EDT) Pathologist [facility] HCG, Urine, QL Negative [facility] Lot Number [id number] [facility] Internal Positive Control Positive [facility] Internal Negative Control Negative [facility] Expiration Date 09/13/2026 [facility] Urine 06/01/2025 3:09 PM EDT Isiah Barkley MD POINT OF CARE TEST ORDERA BLES Final Result [facility]
[address] [place] [address], * (ABNORMAL) Urinalysis, Microscopic Only - Urine, Clean Catch (06/01/2025 3:06 PM EDT) RBC, UA 0-2 None Seen, 0-2 /HPF 06/01/2025 3:52 PM EDT [facility] WBC, UA 0-2 None Seen, 0-2 /HPF 06/01/2025 3:52 PM EDT [facility] Bacteria, UA None Seen None Seen /HPF 06/01/2025 3:52 PM EDT [facility] Squamous Epithelial Cells, UA 3-6(A) None Seen, 0-2 /HPF 06/01/2025 3:52 PM EDT [facility] Hyaline Casts, UA 0-2 None Seen /LPF 06/01/2025 3:52 PM EDT [facility] Methodology Automated Microscopy 06/01/2025 3:52 PM EDT [facility] Urine Urine specimen obtained by clean catch procedure / Unknown Collection / Unknown 06/01/2025 3:06 PM EDT 06/01/2025 3:43 PM EDT Isiah Barkley MD URINE ORDERABLES Final Re sult [facility]
[address] [place] [address], * CBC Auto Differential (06/01/2025 3:06 PM EDT) WBC 7.69 3.40 - 10.80 10*3/mm3 06/01/2025 3:31 PM EDT [facility] RBC 4.55 3.77 - 5.28 10*6/mm3 06/01/2025 3:31 PM EDT [facility] Hemoglobin 13.1 12.0 - 15.9 g/dL 06/01/2025 3:31 PM EDT [facility] Hematocrit 40.5 34.0 - 46.6 % 06/01/2025 3:31 PM EDT [facility] MCV 89.0 79.0 - 97.0 fL 06/01/2025 3:31 PM EDT [facility] MCH 28.8 26.6 - 33.0 pg 06/01/2025 3:31 PM EDT [facility] MCHC 32.3 31.5 - 35.7 g/dL 06/01/2025 3:31 PM EDT [facility] RDW 13.2 12.3 - 15.4 % 06/01/2025 3:31 PM EDT [facility] RDW-SD 43.2 37.0 - 54.0 fl 06/01/2025 3:31 PM EDT [facility] MPV 9.0 6.0 - 12.0 fL 06/01/2025 3:31 PM EDT [facility] Platelets 318 140 - 450 10*3/mm3 06/01/2025 3:31 PM EDT [facility] Neutrophil % 65.7 42.7 - 76.0 % 06/01/2025 3:31 PM EDT [facility] Lymphocyte % 22.8 19.6 - 45.3 % 06/01/2025 3:31 PM EDT [facility] Monocyte % 8.5 5.0 - 12.0 % 06/01/2025 3:[facility] Eosinophil % 1.8 0.3 - 6.2 % 06/01/2025 3:31 PM EDT [facility] Basophil % 0.7 0.0 - 1.5 % 06/01/2025 3:31 PM EDT [facility] Immature Grans % 0.5 0.0 - 0.5 % 06/01/2025 3:31 PM EDT [facility] Neutrophils, Absolute 5.06 1.70 - 7.00 10*3/mm3 06/01/2025 3:31 PM EDT [facility] Lymphocytes, Absolute 1.75 0.70 - 3.10 10*3/mm3 06/01/2025 3:31 PM EDT [facility] Monocytes, Absolute 0.65 0.10 - 0.90 10*3/mm3 06/01/2025 3:31 PM EDT [facility] Eosinophils, Absolute 0.14 0.00 - 0.40 10*3/mm3 06/01/2025 3:31 PM EDT [facility] Basophils, Absolute 0.05 0.00 - 0.20 10*3/mm3 06/01/2025 3:31 PM EDT [facility] Immature Grans, Absolute 0.04 0.00 - 0.05 10*3/mm3 06/01/2025 3:31 PM EDT [facility] nRBC 0.0 0.0 - 0.2 /100 WBC 06/01/2025 3:31 PM EDT [facility] Blood Venipuncture / Unknown 06/01/2025 3:06 PM EDT 06/01/2025 3:25 PM EDT Isiah Barkley MD LAB BLOOD ORDERABLES Kate l Result [facility]
[address] [place] [address], * Light Blue Top (06/01/2025 3:06 PM EDT) Extra Tube Hold for add-ons. 06/01/2025 3:32 PM EDT [facility] Comment:Auto resulted Blood Venipuncture / Unknown 06/01/2025 3:06 PM EDT 06/01/2025 3:25 PM EDT Isiah Barkley MD LAB BLOOD ORDER ONLY Kate l Result [facility]
[address] [place] [address], * Black Top (06/01/2025 3:06 PM EDT) Extra Tube Hold for add-ons. 06/01/2025 3:32 PM EDT [facility] Comment:Auto resulted. Blood Venipuncture / Unknown 06/01/2025 3:06 PM EDT 06/01/2025 3:25 PM EDT Isiah Barkley MD LAB BLOOD ORDER ONLY Kate l Result [facility]
[address] [place] [address], * Gold Top - SST (06/01/2025 3:06 PM EDT) Extra Tube Hold for add-ons. 06/01/2025 3:32 PM EDT [facility] Comment:Auto resulted. Blood Venipuncture / Unknown 06/01/2025 3:06 PM EDT 06/01/2025 3:25 PM EDT Isiah Barkley MD LAB BLOOD ORDER ONLY Kate l Result Performing Organization Address City/[facility]/ZIP Co de Phone Number [facility]
[address] [place] [address], [place] [phone] * Lavender Top (06/01/2025 3:06 PM EDT) Extra Tube hold for add-on 06/01/2025 3:32 PM EDT [facility] Comment:Auto resulted Blood Venipuncture / Unknown 06/01/2025 3:06 PM EDT 06/01/2025 3:25 PM EDT Isiah Barkley MD LAB BLOOD ORDER ONLY Kate l Result Performing Organization Address City/[facility]/ZIP Co de Phone Number [facility]
[address] [place] [address], * Green Top (Gel) (06/01/2025 3:06 PM EDT) Pathologist [facility] Extra Tube Hold for add-ons. 06/01/2025 3:32 PM EDT [facility] Comment:Auto resulted. Blood Venipuncture / Unknown 06/01/2025 3:06 PM EDT 06/01/2025 3:25 PM EDT Isiah Barkley MD LAB BLOOD ORDER ONLY Kate l Result Performing Organization Address [facility] Co de Phone Number [facility]
[address] [place] [address], * High Sensitivity Troponin T (06/01/2025 3:06 PM EDT) [facility] HS Troponin T <6 <14 ng/L 06/01/2025 3:54 PM EDT [facility] Blood Venipuncture / Unknown 06/01/2025 3:06 PM EDT 06/01/2025 3:25 PM EDT Narrative [facility] - 06/01/2025 3:54 PM EDT High Sensitive Troponin T Reference [...] injury due to an underlying chronic condition. Isiha Barkley MD LAB BLOOD ORDERABLES Kate l Result Performing Organization Address [facility]/ZIP Co de Phone Number [facility]
[address] [place] [address], * hCG, Quantitative, (06/01/2025 3:06 PM EDT) [facility] HCG Quantitative <0.10 mIU/mL 06/01/20 3:58 PM EDT [facility] Blood Venipuncture / Unknown 06/01/2025 3:06 PM EDT 06/01/2025 3:25 PM EDT [facility] - 06/01/2025 3:58 PM EDT HCG Ranges by Gestational Age [...] mIU/mL 18 Weeks 8,099 - 58,176 mIU/mL Isiah Barkley MD LAB BLOOD ORDERABLES Kate l Result [facility]
[address] [place] [address], * (ABNORMAL) Urinalysis With Microscopic If Indicated (No Culture) - Urine, Clean Catch (06/01/2025 3:06 PM EDT) Color, UA Yellow Yellow, Straw 06/01/2025 3:52 PM EDT [facility] Appearance, UA Clear Clear 06/01/2025 3:52 PM EDT [facility] pH, UA 6.0 5.0 - 8.0 06/01/2025 3:52 PM EDT [facility] Specific [place], UA 1.023 1.005 - 1.030 06/01/2025 3:52 PM EDT [facility] Glucose, UA Negative Negative 06/01/2025 3:52 PM EDT [facility] Ketones, UA Negative Negative 06/01/2025 3:52 PM EDT [facility] Bilirubin, UA Negative Negative 06/01/2025 3:52 PM EDT [facility] Blood, UA Small (1+)(A) Negative 06/01/2025 3:52 PM EDT [facility] Protein, UA Negative Negative 06/01/2025 3:52 PM EDT [facility] Leuk Esterase, UA Negative Negative 06/01/2025 3:52 PM EDT [facility] Nitrite, UA Negative Negative 06/01/2025 3:52 PM EDT [facility] Urobilinogen, UA 1.0 E.U./dL 0.2 - 1.0 E.U./dL 06/01/2025 3:52 PM EDT [facility] Urine Urine specimen obtained by clean catch procedure / Unknown Collection / Unknown 06/01/2025 3:06 PM EDT 06/01/2025 3:43 PM EDT Isiah Barkley MD URINE ORDERABLES Final Re sult [facility]
[address] [place] [address], * Lipase (06/01/2025 3:06 PM EDT) Lipase 17 13 - 60 U/L 06/01/2025 3:50 PM EDT [facility] Blood Venipuncture / Unknown 06/01/2025 3:06 PM EDT 06/01/2025 3:25 PM EDT Isiah Barkley MD LAB BLOOD ORDERABLES Kate l Result [facility]
[address] [place] [address], * Comprehensive Metabolic Panel (06/01/2025 3:06 PM EDT) Glucose 88 65 - 99 mg/dL 06/01/2025 3:50 PM EDT [facility] BUN 9.5 6.0 - 20.0 mg/dL 06/01/2025 3:50 PM EDT [facility] Creatinine 0.71 0.57 - 1.00 mg/dL 06/01/2025 3:50 PM EDT [facility] Sodium 140 136 - 145 mmol/L 06/01/2025 3:50 PM EDT [facility] Potassium 3.5 3.5 - 5.2 mmol/L 06/01/2025 3:50 PM EDT [facility] Chloride 103 98 - 107 mmol/L 06/01/2025 3:50 PM EDT [facility] CO2 27.0 22.0 - 29.0 mmol/L 06/01/2025 3:50 PM EDT [facility] Calcium 9.4 8.6 - 10.5 mg/dL 06/01/2025 3:50 PM EDT [facility] Total Protein 7.7 6.0 - 8.5 g/dL 06/01/2025 3:50 PM EDT [facility] Albumin 4.9 3.5 - 5.2 g/dL 06/01/2025 3:50 PM EDT [facility] ALT (SGPT) 13 1 - 33 U/L 06/01/2025 3:50 PM EDT [facility] AST (SGOT) 17 1 - 32 U/L 06/01/2025 3:50 PM EDT [facility] Alkaline Phosphatase 117 39 - 117 U/L 06/01/2025 3:50 PM EDT [facility] Total Bilirubin 0.2 0.0 - 1.2 mg/dL 06/01/2025 3:50 PM EDT [facility] Globulin 2.8 gm/dL 06/01/2025 3:50 PM EDT [facility] Comment:Calculated Result A/G Ratio 1.8 g/dL 06/01/2025 3:50 PM EDT [facility] BUN/Creatinine Ratio 13.4 7.0 - 25.0 06/01/2025 3:50 PM EDT [facility] Anion Gap 10.0 5.0 - 15.0 mmol/L 06/01/2025 3:50 PM EDT [facility] eGFR 115.3 >60.0 mL/min/1.7 3 06/01/2025 3:50 PM EDT [facility] Blood Venipuncture / Unknown 06/01/2025 3:06 PM EDT 06/01/2025 3:25 PM EDT [facility] - 06/01/2025 3:50 PM EDT GFR Categories in Chronic Kidney [...] does not include race as a factor Isiah Barkley MD LAB BLOOD ORDERABLES Kate lucie Result [facility]
[address] [place] [address], * ECG 12 Lead Chest Pain (06/01/2025 2:40 PM EDT) QT Interval 392 ms BH ECG QTC Interval 435 ms ECG 06/01/2025 2:40 PM EDT 06/01/2025 10:42 PM EDT Narrative ECG - 06/01/2025 10:42 PM EDT Test Reason : Chest Pain Blood Pressure : */* mmHG Vent. Rate : 74 BPM Atrial Rate : 74 BPM P-R Int : 144 ms QRS Dur : 74 ms QT Int : 392 ms P-R-T Axes : 68 66 45 degrees QTcB Int : 435 ms Poor data quality, interpretation may be adversely affected Normal sinus rhythm Normal ECG When compared with ECG of 16-Feb-2025 17:05, No significant change was found Confirmed by ISIAH BARKLEY ([id number]) on 06/01/2025 10:42:31 PM Referred By: Confirmed By: ISIAH BARKLEY Procedure Note Isiah Barkley MD - 06/01/2025 Test Reason : Chest Pain Blood Pressure : */* mmHG Vent. Rate : 74 BPM Atrial Rate : 74 BPM P-R Int : 144 ms QRS Dur : 74 ms QT Int : 392 ms P-R-T Axes : 68 66 45 degrees QTcB Int : 435 ms Poor data quality, interpretation may be adversely affected Normal sinus rhythm Normal ECG When compared with ECG of 16-Feb-2025 17:, No significant change was found Confirmed by ISIAH BARKLEY ([id number]) on 06/01/2025 10:42:31 PM Referred By: Confirmed By: ISIAH BARKLEY Isiah Barkley MD ECG ORDERABLES Final Res ult ECG documented in this encounter Visit Diagnoses Diagnosis Chest pain, unspecified type- Primary Generalized abdominal pain Abdominal pain, generalized Chronic gastritis without bleeding, unspecified gastritis type documented in this encounter Administered Medications Inactive Administered Medications - up to 3 most recent administrations Medication Order MAR Action Action Date Dose Rate Site aluminum-magnesium hydroxide-simethicone (MAALOX MAX) 400-400-40 MG/5ML suspension 15 mL 15 mL, Oral, Once, On Wed06/01/25 at 1502, For 1 dose, Maximum 60 mL in 24 hours. Given 06/01/2025 4:09 PM EDT 15 mL HYDROmorphone (DILAUDID) injection 0.5 mg 0.5 mg, Intravenous, Once, On Wed06/01/25 at 1730, For 1 dose, Based on patient request - if ordered for moderate or severe pain, provider allows for administration of a medication prescribed for a lower pain scale. If given for pain, use the following pain scale: Mild Pain = Pain Score of 1-3, CPOT 1-2 Moderate Pain = Pain Score of 4-6, CPOT 3-4 Severe Pain = Pain Score of 7-10, CPOT 5-8 Given 06/01/2025 6:04 PM EDT 0.5 mg iopamidol (ISOVUE-370) 76 % injection 100 mL 100 mL, Intravenous, Once in Imaging, On Wed06/01/25 at 1640, For 1 dose Given 06/01/2025 4:24 PM EDT 100 mL Morphine sulfate (PF) injection 4 mg 4 mg, Intravenous, Once, On Wed06/01/25 at 1545, For 1 dose, Based on patient request [...] Pain Score of 7-10, CPOT 5-8 Given 06/01/2025 4:09 PM EDT 4 mg ondansetron (ZOFRAN) injection 4 mg 4 mg, Intravenous, Once, On Wed06/01/25 at 1504, For 1 dose, If multiple N/V medications ordered, use in the following order: Ondansetron, Prochlorperazine, Promethazine. Use PO unless patient refuses or patient unable to swallow. Given 06/01/2025 4:09 PM EDT 4 mg ondansetron (ZOFRAN) injection 4 mg 4 mg, Intravenous, Once, On Wed06/01/25 at 1730, For 1 dose, If multiple N/V medications ordered, use in the following order: Ondansetron, Prochlorperazine, Promethazine. Use PO unless patient refuses or patient unable to swallow. Given 06/01/2025 6:04 PM EDT 4 mg Sodium Chloride (PF) 0.9 % 10 mL 10 mL, Intravenous, As Needed, Line Care, Starting on Wed06/01/25 at 1437 sodium chloride 0.9 % bolus 1,000 mL 1,000 mL, Intravenous, at 1,000 mL/hr, Administer over 1 Hours, Once, On Wed06/01/25 at 1504, For 1 dose New Bag 06/01/2025 4:09 PM EDT 1,000 mL 1000 mL/hr documented in this encounter Active and Recently Administered Medications Times are shown in EDT. Scheduled Medication Order 05/30/2025 05/31/2025 06/01/2025 aluminum-magnesium hydroxide-simethicone (MAALOX MAX) 400-400-40 MG/5ML suspension 15 mL (COMPLETED) 15 mL, Oral, Once, On Wed06/01/25 at 1502, For 1 dose, Maximum 60 mL in 24 hours. 1609 (Given - Provid er: Roque Romero RN) HYDROmorphone (DILAUDID) injection 0.5 mg (COMPLETED) 0.5 mg, Intravenous, Once, On Wed06/01/25 at 1730, For 1 dose, Based on patient request - if ordered for moderate or severe pain, provider allows for administration of a medication prescribed for a lower pain scale. If given for pain, use the following pain scale: Mild Pain = Pain Score of 1-3, CPOT 1-2 Moderate Pain = Pain Score of 4-6, CPOT 3-4 Severe Pain = Pain Score of 7-10, CPOT 5-8 1804 (Given - Provid er: Jody Gauthier RN) iopamidol (ISOVUE-370) 76 % injection 100 mL (COMPLETED) 100 mL, Intravenous, Once in Imaging, On Wed06/01/25 at 1640, For 1 dose 1624 (Given - Provid er: Asia Rangel) Morphine sulfate (PF) injection 4 mg (COMPLETED) 4 mg, Intravenous, Once, On Wed06/01/25 at 1545, For 1 dose, Based on patient request [...] = Pain Score of 7-10, CPOT 5-8 1609 (Given - Provid er: Roque Romero RN) ondansetron (ZOFRAN) injection 4 mg (COMPLETED) 4 mg, Intravenous, Once, On Wed06/01/25 at 1504, For 1 dose, If multiple N/V medications ordered, use in the following order: Ondansetron, Prochlorperazine, Promethazine. Use PO unless patient refuses or patient unable to swallow. 1609 (Given - Provid er: Roque Romero RN) ondansetron (ZOFRAN) injection 4 mg (COMPLETED) 4 mg, Intravenous, Once, On Wed06/01/25 at 1730, For 1 dose, If multiple N/V medications ordered, use in the following order: Ondansetron, Prochlorperazine, Promethazine. Use PO unless patient refuses or patient unable to swallow. 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 The last day before reporting a new confirmed COVID-19 would be 12/08/20. -Alida Banda RN 09/09/2020 12/25/2020 Rhinovirus 05/15/2025 05/15/2025 06/14/2025 9:08 PM EDT documented as of this encounter Care Teams Policy Loan Calculator Relationship Specialty Start Date End Date Michaela Sousa APRN [address] [id number] [place] [id number] PCP - General Internal Medicine 09/04/24 documented as of this encounter
--- OUTSIDE RECORDS SUMMARY | 2025-06-18 05:15 | XMS_ITS ---
Author Organization [facility] Address [address] [place] [address] Care Team Providers Care Avionics Supervisor Name Role Phone Chelita Jackson Unavailable [phone] Seda Sutton Unavailable [phone] REASON FOR VISIT US order Social History Sex Assigned At : Social History Observation Description Sex Assigned At Female Encounters Encounter Location Date Provider Diagnosis [facility] [address] [place] [address] 06/18/2025 Seda Sutton Pelvic pain R10.2 Assessments Encounter Date Diagnosis (ICD Code) Assessment Notes Treatment Notes Treatment Clinical Notes Section Notes 06/18/2025 Pelvic pain (ICD-10 - R10.2) Plan Of Treatment Pending Test Test Name Order Date *US Pelvis Complete Transabdominal/Vagin al (Non-OB) 06/18/2025 Progress Notes * Maia KOVACSDOB:[birth year] (35 yo F)Acc No.[id number]:06/18/2025 Patient: Dylan Maia LEGER :1990 A ge:35 Y S ex:Female Address:[address] [place] [address], [address] Subjective: * Chief Complaints: * U S order Assessment: * Assessment: 1. P elvic pain - R10.2 Plan: * Treatment: * true * Date: Generated for Printi ng/Faxing/eTransmitting on: 0 06/22/2025 12:00 PM EDT
--- OUTSIDE RECORDS SUMMARY | 2025-06-20 10:00 | XMS_ITS ---
Author Organization [facility] Address [address] [place] [address] Care Team Providers Care Deaf Interpreter Name Role Phone Chelita Jackson Unavailable [phone] Seda Sutton Unavailable [phone] REASON FOR VISIT Abdominal Pain..confirmed appt time and location..cv Social History Sex Assigned At : Social History Observation Description Sex Assigned At Female Encounters Encounter Location Date Provider Diagnosis [facility] [address] [place] [address] 06/20/2025 Seda Sutton Pelvic pain R10.2 Assessments Encounter Date Diagnosis (ICD Code) Assessment Notes Treatment Notes Treatment Clinical Notes Section Notes 06/20/2025 Pelvic pain (ICD-10 - R10.2) Plan Of Treatment Pending Test Test Name Order Date *US Pelvis Complete Transabdominal/Vagin al (Non-OB) 06/20/2025 Progress Notes * Maia KOVACSDOB:[birth year] (35 yo F)Acc No.[id number]:06/20/2025 Patient: Maia García Provider: Tomeka Sutton MD :1990 A ge:35 Y S ex:Female Date:06/20/2025 Address:[address] [place] [address], [facility] Subjective: * Chief Complaints: * A bdominal Pain..confirmed appt time and location..cv Assessment: * Assessment: 1. P elvic pain - R10.2 Plan: * Treatment: * Electronic signature of Maureen Sutton MD on 06/22/2025 at 11:59 AM EDT Sign off status: Pending Visit Status: Macy HOWARD (Check Out) * Provider: Tomeka Sutton MD Date: 0 06/20/2025 Generated for Kay sarkar/Haydee/Wally on: 0 06/22/2025 11:59 AM EDT
--- OUTSIDE RECORDS SUMMARY | 2025-06-20 10:45 | XMS_ITS ---
Author Organization [facility] Address [address] [place] [address] Care Team Providers Care Commercial Art Instructor Name Role Phone Chelita Jackson Unavailable [phone] Seda Sutton Unavailable [phone] Allergies Allergen (clinical drug ingredient) Drug/Non Drug Allergy documented on EMR Reaction Allergy Type Onset Date Status Food: Coconut (uncoded) Unspecified Allergy Active Food: Pineapple (uncoded) Unspecified Allergy Active Medications: Adhesive Tape (uncoded) Unspecified Allergy Active CELEBREX (CELECOXIB CAPS) Unspecified Drug Allergy 01/27/2021 Active sulfamethoxazole / trimethoprim SULFAMETHOXAZOLE-T RIMETHOPRIM Unspecified Drug Allergy 01/27/2021 Active LATEX EXAM GLOVES (DISPOSABLE GLOVES) Unspecified Drug Allergy 01/27/2021 Active Non-steroidal anti-inflammatory agent (FN) NSAIDS (uncoded) Unspecified Allergy 01/27/2021 Active metoclopramide REGLAN (uncoded) Unspecified Allergy 2020 Active REASON FOR VISIT Abdominal Pain Medications Medication SIG (Take, Route, Fr equency, Duration) Notes Start Date End Date Status Pepcid Active Vitamin D Active Iron Active Pantoprazole Sodium Active Neurontin Active Social History Tobacco Use: Social History Observation [...] Domestic violence: No Do you have any caodaism, m oral, or cultural beliefs or customs that your provider should know about? No Would you object to blood products in the event of an emergency? No Problems Problem Type SNOMED Code ICD Code Onset Dates Problem Status W/U Status Risk Notes Problem Endometriosis (237647936) Endometriosis (N80.9) Active confirmed Problem Female urinary stress incontinence (73216942) ELIZABETH (stress urinary incontinence, female) (N39.3) Active confirmed Problem Endometrioma (031461258) Endometrioma (N80.129) Active confirmed Vital Signs Blood pressure systolic 104 mm Hg 06/20/20 25 Blood pressure diastolic 64 mm Hg 025 Height 69 in 06/20/2025 Weight 158.6 lbs 06/20/2025 BMI 23.42 kg/m2 06/20/2025 Encounters Encounter Location Date Provider Diagnosis [facility] [address] [facility] [address] [place] [address] 06/20/2025 Seda Borders Endometriosis N80.9 ; Pelvic pain R10.2 ; ELIZABETH (stress urinary incontinence, female) N39.3 and Endometrioma N80.129 Assessments Encounter Date Diagnosis (ICD Code) Assessment Notes Treatment Notes Treatment Clinical Notes Section Notes 06/20/2025 Endometriosis (ICD-10 - N80.9) known h/o endometriosis and s/p laparoscopies. She is done childbearing and desires definitive management with TRH/BSO. Surgical risks reviewed. Recovery time of 6wks reviewed. Will schedule. 06/20/2025 Pelvic pain (ICD-10 - R10.2) see above 06/20/2025 ELIZABETH (stress urinary incontinence, female) (ICD-10 - N39.3) reports h/o bladder sling. Will refer to [facility]. Discussed possible urethral bulking agents as next step 06/20/2025 Endometrioma (ICD-10 - N80.129) desires BSO for definitive mangement of endometriosis Plan Of Treatment Treatment Notes Assessment Notes Endometriosis known h/o endometrio sis and s/p laparoscopies. She is done childbearing and desires definitive management with TRH/BSO. Surgical risks reviewed. Recovery time of 6wks reviewed. Will schedule. Pelvic pain see above ELIZABETH (stress urinary incontinence, female ) reports h/o bladder sling. Will refer to [facility]. 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 She described persistent pelvic pain since menarche (h/o endometriosi and multiple laparoscopies), but pain worse since her , which has significantly affected her quality of life. She has significant pain during intercourse. She expressed concern about possible excessive scarring and the ongoing discomfort, noting that these issues have made it difficult to fully enjoy time with her children and balance her demanding work schedule. In an effort to manage her symptoms, she has been performing pelvic floor exercises at home, though she has not attended formal physical therapy. In addition to pelvic pain, she reported urinary incontinence that began after childbirth. The incontinence is triggered by stress events such as coughing, sneezing, standing up, and sitting down. She finds this symptom both embarrassing and limiting, as it prevents her from lifting her child and participating in workouts. She discussed her history of a prior bladder sling procedure, which she believes is now starting to fail. Despite these challenges, she has continued to attempt home-based pelvic floor exercises but has not yet pursued professional physical therapy. Her history of endometriosis remains a significant concern, with a small endometrioma currently present on US today. She is considering a hysterectomy for long-term management and is aware of the associated risks. She prefers the option of a hysterectomy over additional laparoscopies, reflecting her desire for a more definitive solution to her ongoing symptoms. Miguel A.ai AI Consent The patient has: verbally consented to the use of ambient listening technology for today's visit. This visit was conducted with the use of ambient listening technology, an artificial intelligence (AI) powered tool. Examination Category Sub-Category Detail Notes Category Not es General Examination General Appearance: no acute distress, healthy appearing, well nourished, well developed. Head: atraumatic, normocephalic ENT: EOMI, neck normal range of motion Chest: non-labored breathing, no chest deformities Neuro: motor grossly intact, station and gait normal. Psych: mood and affect appropriate, normal interaction, content and flow of speech normal. Musculoskeletal: normal mobility. Normal muscle tone Skin: no rashes, no lesions. Progress Notes * Maia KOVACS JDOB:[birth year] (35 yo F)Acc No.[id number]:06/20/2025 Progress Note Patient: Maia García Provider: Tomeka Sutton MD :1990 A ge:35 Y S ex:Female Date:06/20/2025 Address:[address] [place] [address], [facility] Subjective: * Chief Complaints: * A bdominal Pain * HPI: G YN: Maia Kovacs, a 35-year-old female, presented for a chronic condition follow- up focused on pelvic pain and urinary incontinence. She described persistent pelvic pain since menarche (h/o endometriosi and multiple laparoscopies), but pain worse since her , which has significantly affected her quality of life. She has significant pain during intercourse. She expressed concern about possible excessive scarring and the ongoing discomfort, noting that these issues have made it difficult to fully enjoy time with her children and balance her demanding work schedule. In an effort to manage her symptoms, she has been performing pelvic floor exercises at home, though she has not attended formal physical therapy. In addition to pelvic pain, she reported urinary incontinence that began after childbirth. The incontinence is triggered by stress events such as coughing, sneezing, standing up, and sitting down. She finds this symptom both embarrassing and limiting, as it prevents her from lifting her child and participating in workouts. She discussed her history of a prior bladder sling procedure, which she believes is now starting to fail. Despite these challenges, she has continued to attempt home-based pelvic floor exercises but has not yet pursued professional physical therapy. Her history of endometriosis remains a significant concern, with a small endometrioma currently present on US today. She is considering a hysterectomy for long-term management and is aware of the associated risks. She prefers the option of a hysterectomy over additional laparoscopies, reflecting her desire for a more definitive solution to her ongoing symptoms. S unoh.ai: AI Consent T he patient has v erbally consented to the use of ambient listening technology for today's visit. This visit was conducted with the use of ambient listening technology, an artificial intelligence (AI) powered tool. * Medical History: Anemia Anxiety Blood Transfusion Depression GERD/Acid Reflux Gallbladder Disease Kidney Stones Migraine Headaches Endometriosis Medical History Verified * Commutator Tester History: P ap Smear History: D ate of Last Pap/HPV: Not collected in our Care Center L ast Pap/HPV Results: N ormal Pap H istory of Abnormal Pap Smears: N o M enstrual History: C urrently having menstrual cycles? Y es A ge of Onset: 1 2 L MP: 0 05/28/2025 L ength Between Cycles: 2 1-32 Days L ength of Flow: 2 -7 Days F low Volume: H eavy S exual Activity/Contraception: E herrera been sexually active? Y es C urrently sexually active? Y es G asiya of sexual partners: M dav A ge of first sexual activity: 1 7 C ontraception: N one H istory of STIs: N one G YN Medical Hx: E ndometriosis. L ast Preventive Screening Labs: . L ast Mammogram Date (Historical) N /A. L ast Colon Cancer Screening Date: (Historical) N /A. L ast DEXA Scan: (Historical) N /A. * OB History: G P : 4 Para: 2 P regnancy # 1: 8 -20-21 , Primary , Baby Weight:6lb 7.9oz , male delivering provider Dr. Orozco. P regnancy # 2: M AB. P regnancy # 3: M AB. P regnancy # 4: 0 12/10/2024, Repeat , Female, Darlene, 6.4 lbs. * Surgical History: C section x2 Liver surgery Cholecystectomy - 2009 Dx Lap - fulguration of endometriosis 2020 Rhinoplasty Tonsillectomy - child Bilateral Tubal Ligation Surgical History verified. * Hospitalization/Major Diagno stic Procedure: labor and delivery Hospitalization Verified. * Family History: F amily History Verified.. Acid Reflux , Anxiety , Asthma , Colon Cancer , Diabete. * Social History: T obacco Use: T obacco Use/Smoking P CIG SMOK: no. Tobacco Control (Standard) T obacco use: N onsmoker D rugs/Alcohol: D rugs H ave you used drugs other than those for medical reasons in the past 12 months? N o Steroid Use H ave you used anabolic (body building) steroids? N o M iscellaneous: D omestic violence: No. Do you have any caodaism, moral, or cultural beliefs or customs that your provider should know about?: No. Would you object to blood products in the event of an emergency?: No. D rug/Alcohol: A ANGELA-C (Standard) D id you have a drink containing alcohol in the past year? N o S ocial History Verified. * Medications: T akingIron Neurontin Pantoprazole Sodium Pepcid Vitamin D Medication List reviewed and reconciled with the patientTaking Iron Taking Neurontin Taking Pantoprazole Sodium Taking Pepcid Taking Vitamin D Medication List reviewed and reconciled with the patient * Allergies: M edications: Adhesive Tape: Unspecified - AllergyCELEBREX (CELECOXIB CAPS): Unspecified - Allergy - Onset Date 6224-49-31RNFLN EXAM GLOVES (DISPOSABLE GLOVES): Unspecified - Allergy - Onset Date 4148-47-25Feyl: Coconut: Unspecified - AllergyNSAIDS: Unspecified - Allergy - Onset Date 7736-72-38ICRFDX: Unspecified - Allergy - Onset Date 4689-29-69Xzly: Pineapple: Unspecified - AllergySULFAMETHOXAZOLE-TRIMETHOPRIM: Unspecified - Allergy - Onset Date 6316-12-75qsjTtwkneuiu Verified. Objective: * Vitals: B P:104/64mm Hg, Ht: 69 in, Wt:158.6lbs, BMI:23.42Index. * Examination: G eneral Examination: G eneral Appearance: no acute distress, healthy appearing, well nourished, well developed. Head: atraumatic, normocephalic ENT: EOMI, neck normal range of motion Chest: non-labored breathing, no chest deformities Neuro: motor grossly intact, station and gait normal. Psych: mood and affect appropriate, normal interaction, content and flow of speech normal. Musculoskeletal: normal mobility. Normal muscle tone Skin: no rashes, no lesions. Assessment: * Assessment: 1. E ndometriosis - N80.9 (Primary) 2 . P elvic pain - R10.2 ?3. S UI (stress urinary incontinence, female) - N39.3 4 . E ndometrioma - N80.129 Plan: * Treatment: 2. P elvic pain Notes: see above 3. S UI (stress urinary incontinence, female) Notes: reports h/o bladder sling. Will refer to [facility]. Discussed possible urethral bulking agents as next step 4. E ndometrioma Notes: desires BSO for definitive mangement of endometriosis * Procedures: . Billing Information: * Visit Code: 79082 Office/Outpatient visit, est patient. * Sign off status: Completed Visit Status: C HK (Check Out) true * Provider: Tomeka Sutton MD Date: 06/20/2025 Generated for Kay sarkar/Haydee/Ramositting on: 06/22/2025 12:00 PM EDT
[2025-06-21 22:03] LABS: Coronavirus 19, PCR Not Detected (NotDetected); Influenza A, PCR Not Detected (NotDetected); Influenza B, PCR Not Detected (NotDetected)
--- OUTSIDE RECORDS SUMMARY | 2025-06-22 11:59 | XMS_ITS | Encounter Summary ---
Author Organization [facility] Address [address] [place] [address] Care Team Providers Care Auditor Internal Name Role Phone Michaela Sousa APRN Primary Care Provider + [phone] Encounter Details Date Type Department Care Team (Latest Contact Info) Description 05/15/2025 Travel Social History Tobacco Use Types Packs/Day Years Used Date Smoking Tobacco: Never Passive Smoke Exposure: Never Smokeless Tobacco: Never Alcohol Use Standard Drinks/Week Comments No 0 (1 standard drink = 0.6 oz pur e alcohol) [facility] Utilities Answer Date Recorded In the past 12 months has [employer], gas, oil, or water company threatened to [...] Date Recorded Retired Total Score 0 05/07/2021 [facility] [place] of Occupat ional Health - Occupational Stress [...] things needed for daily living? No 12/10/2024 [place] Depression Scale Answer Date Recorded [place] Depression Scale Total 2 12/22/2024 The thought [...] 1:12 PM EDT Mycalison t, Generic * [place] Suicide Severity Rating Scale (Screener/Recent Self-Report) Question [...] 3:15 PM EST Office Visit [facility] [address] [address] Aminata Nassar MD [address] [place] [address] [address] documented as of this encounter Visit Diagnoses Not on filedocumented in this encounter Additional Health Concerns Infection Onset Date Last Indicated Resolved Time COVID (History) Comment:Per regional jockey room custodian for [employer], 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 The last day before reporting a new confirmed COVID-19 would be 12/08/20. -Alida Banda RN 09/09/2020 12/25/2020 COVID Screen (preop/placement) 05/15/2025 05/15/2025 05/15/2025 7:22 PM EDT Rhinovirus 05/15/2025 05/15/2025 06/14/2025 9:08 PM EDT documented as of this encounter Care Teams Auditor Internal Relationship Specialty Start Date End Date Michaela Sousa APRN [address] [place] [address] [facility] [address] P[facility] - General Internal Medicine 09/04/24 documented as of this encounter
--- OUTSIDE RECORDS SUMMARY | 2025-06-22 11:59 | XMS_ITS | Encounter Summary ---
Author Organization [facility] Address [address] [place] [address] Care Team Providers Care County Bailiff Name Role Phone Michaela Sousa APRN Primary Care Provider + [phone] Encounter Details Date Type Department Care Team (Latest Contact Info) Description 05/17/2025 Travel Social History Tobacco Use Types Packs/Day Years Used Date Smoking Tobacco: Never Passive Smoke Exposure: Never Smokeless Tobacco: Never Alcohol Use Standard Drinks/Week Comments No 0 (1 standard drink = 0.6 oz pur e alcohol) [facility] Utilities Answer Date Recorded In the past 12 months has [employer], gas, oil, or water company threatened to [...] Date Recorded Retired Total Score 0 05/07/2021 [facility] [place] of Occupat ional Health - Occupational Stress [...] things needed for daily living? No 12/10/2024 [place] Depression Scale Answer Date Recorded [place] Depression Scale Total 2 12/22/2024 The thought [...] GED or equivalent No 12/10/2024 Preferred Language Tongan 12/10/2024 PHQ-2 Answer Date Recorded Patient Health [...] 7:21 AM EDT Vicki Harrington RN * [place] Suicide Severity Rating Scale (Screener/Recent Self-Report) Question Answer Date of Assessment Author 6. 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 The last day before reporting a new confirmed COVID-19 would be 12/08/20. -Alida Banda RN 09/09/2020 12/25/2020 Rhinovirus 05/15/2025 05/15/2025 06/14/2025 9:08 PM EDT documented as of this encounter Care Teams County Bailiff Relationship Specialty Start Date End Date Michaela Sousa APRN [address] [place] [address] PCP - General Internal Medicine 09/04/24 documented as of this encounter
--- OUTSIDE RECORDS SUMMARY | 2025-06-22 12:00 | XMS_ITS | Encounter Summary ---
[facility] Address [address] [place] [address] Care Team Providers Care Operations Technician Name Role Phone Michaela Sousa APRN Primary Care Provider + [phone] Reason for Visit * Reason Onset Date Comments Advice Only 05/18/2025 Encounter Details Date Type Department Care Team (Late st Contact Info) Description 05/18/2025 Telephone [facility] GASTR[facility]OLOG[facility] [address] [phone] Aminata Nassar MD 1720 [place] [address] Advice Only Social History Tobacco Use Types Packs/Day Years Used Date Smoking Tobacco: Never Passive Smoke Exposure: Never Smokeless Tobacco: Never Alcohol Use Standard Drinks/Week Comments No 0 (1 standard drink = 0.6 oz pur e alcohol) [facility] Utilities Answer Date Recorded In the past 12 months has [email or web address], gas, oil, or water [employer] threatened to shut off services in your [...] Date Recorded Retired Total Score 0 05/07/2021 [facility] - [...] things needed for daily living? No 12/10/2024 [place] Depression Scale Answer Date Recorded [place] Depression Scale Total 2 12/22/2024 The thought [...] GED or equivalent No 12/10/2024 Preferred Language Togolese 12/10/2024 PHQ-2 Answer Date Recorded Patient Health [...] can call us back in office at [phone] and or she may send us a message through [facility]. * Telephone Encounter - Olivia Bowden MA [...] Description 10/31/2025 3:15 PM EST Office Visit [facility] 1720 [facility] [address] [place] [phone] Aminata Nassar MD [address] [address] documented as of this encounter Visit Diagnoses Not on filedocumented in this encounter Additional Health Concerns Infection Onset Date Last Indicated Resolved Time COVID (History) Comment:Per regional enterprise infrastructure architect for [facility], 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 The last day before reporting a new confirmed COVID-19 would be 12/08/20. -Alida Banda RN 09/09/2020 12/25/2020 Rhinovirus 05/15/2025 05/15/2025 06/14/2025 9:08 PM EDT documented as of this encounter Care Teams Operations Technician Relationship Specialty Start Date End Date Michaela Sousa APRN [address] [place] [address] PCP - General Internal Medicine 09/04/24 documented as of this encounter
--- OUTSIDE RECORDS SUMMARY | 2025-06-22 12:00 | XMS_ITS | Encounter Summary ---
[facility] Address [address] [place] [address] Care Team Providers Care Representative Name Role Phone Michaela Sousa APRN Primary Care Provider + [phone] Encounter Details Date Type Department Care Team (Late st Contact Info) Description 06/06/2025 Telephone [facility] [address] [address] Aminata Nassar MD [address] [address] Social History Tobacco Use Types Packs/Day Years Used Date Smoking Tobacco: Never Passive Smoke Exposure: Never Smokeless Tobacco: Never Alcohol Use Standard Drinks/Week Comments No 0 (1 standard drink = 0.6 oz pur e alcohol) [facility] Utilities Answer Date Recorded In the past 12 months has [employer], [employer], oil, or water [employer] threatened to shut off services in your [...] Date Recorded Retired Total Score 0 05/07/2021 [facility] Occupat ional Health - Occupational [...] things needed for daily living? No 12/10/2024 [place] Depression Scale Answer Date Recorded Luc[place] Depression Scale Total 2 12/22/2024 The thought [...] GED or equivalent No 12/10/2024 Preferred Language Beninese 12/10/2024 PHQ-2 Answer Date Recorded Patient Health [...] her to be scheduled in July in [facility] for colon. She said July but I do not see it in [facility] she has been scheduled for this. ---- [...] Description 10/31/2025 3:15 PM EST Office Visit [facility] [address] [phone] Aminata Nassar MD [address] [address] documented as of this encounter Visit Diagnoses Not on filedocumented in this encounter Additional Health Concerns Infection Onset Date Last Indicated Resolved Time COVID (History) Comment:Per regional surface grinder for [facility], 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 The last day before reporting a new confirmed COVID-19 would be 12/08/20. -Alida Banda RN 09/09/2020 12/25/2020 Rhinovirus 05/15/2025 05/15/2025 06/14/2025 9:08 PM EDT documented as of this encounter Care Teams Representative Relationship Specialty Start Date End Date Michaela Sousa APRN [address] [place] [address] [place] [address] PCP - General Internal Medicine 09/04/24 documented as of this encounter
--- OUTSIDE RECORDS SUMMARY | 2025-06-22 12:00 | XMS_ITS | CCD ---
Author Name Interface, [id number] lity Address [address] [place], [place] [id number] Organization [facility] Address [address] [place], [place] [id number] Care Team Providers Care Client Support Consultant Name Role Phone Sukhjinder KAISER, Jens Purvis Unavailable Unavailable Reason for Visit Medications Problems Social History
--- OUTSIDE RECORDS SUMMARY | 2025-06-22 12:00 | XMS_ITS | Clinical Summary ---
Author Organization [facility] Address [address] [place] [address] Care Team Providers Care Sorter/Assay Tech Name Role Phone SousaMichaela sheehan Juani KING Primary Care Provider [phone] Allergies Active Allergy Reactions Criticality Noted Date [...] or split. 30 tablet 3 Active B Nbufpob-Uyxvfh-MX (B Complete) tablet Active pantoprazole (ProtoNix) 20 [...] declined 02/25/2023 How often do you attend shinto or judaism serv ices? Patient declined 02/25/2023 Do you belong to any clubs o r organizations such as shinto groups, unions, fraternal or athletic groups, or [...] Recorded Patient Health Questionnaire-2 Score 4 03/01/2023 [facility] Occupat ional Health - Occupational Stress [...] place to sleep or slept in a senior care (including now)? Patient refused 02/25/2023 PHQ-9 Answer [...] drink first t donovan in the morning (EYE-HEADLIGHT ADJUSTER) to steady your nerves or to get [...] Vaccines (1 - 3-dose SCDM series) 2019 [id number] Vaccine (3 - Pfizer risk series) 06/04/2021 [...] Historical Provider LAB BLOOD ORDERABLES Final R [employer] Performing Organization Address [facility] Co de Phone Number SUNQUEST * HIV 1 & 2 Antibody/Antigen Screen (12/18/2017 5:52 AM EDT) HIV 1 Result NONREACTIVE Screening for HIV 1 and 2 antibodies is NONREACTIVE. No confirmatory testing is required. [employer] 12/18/2017 5:52 AM EDT 12/18/2017 6:28 AM EDT Historical Provider LAB BLOOD ORDERABLES Final R esult Performing Organization Address City/State/[facility] Co de Phone Number SUNQUEST from Last 3 Months or Most Recently Relevant to Health Maintenance Insurance ANDRES Care Teams Sorter/Assay Tech Relationship Specialty Start Date End Date Michaela Sousa APRN [address] [place] [address] PCP - General 07/24/21
--- OUTSIDE RECORDS SUMMARY | 2025-06-22 12:00 | XMS_ITS | Encounter Summary ---
Author Organization [facility] Address [address] [place] [address] Care Team Providers Care Head Of Commission Department Name Role Phone Michaela Sousa APRN Primary Care Provider + [phone] Encounter Details Date Type Department Care Team (Late st Contact Info) Description 05/16/2025 Prep for Surgery [facility] ORDERS ONLY [address] [facility] [place] [address] Aminata Nassar MD [address] [place] [facility] [address] [place] [address] Hematemesis, unspecified whether nausea present (Primary Dx) Social History Tobacco Use Types Packs/Day Years Used Date Smoking Tobacco: Never Passive Smoke Exposure: Never Smokeless Tobacco: Never Alcohol Use Standard Drinks/Week Comments No 0 (1 standard drink = 0.6 oz pur e alcohol) [facility] Utilities Answer Date Recorded In the past 12 months has [employer], [employer], oil, or water [employer] threatened to shut off services in your [...] Date Recorded Retired Total Score 0 05/07/2021 [facility] of Occupat ional Health - Occupational Stress [...] things needed for daily living? No 12/10/2024 [place] Depression Scale Answer Date Recorded [place] Depression Scale Total 2 12/22/2024 The thought [...] 10/31/2025 3:15 PM EST Office Visit [facility] [address] [phone] Aminata Nassar MD [address] [phone] documented as of this encounter Visit Diagnoses Diagnosis Hematemesis, unspecified whether nausea present- Primary documented in this encounter Additional Health Concerns Infection Onset Date Last Indicated Resolved Time COVID (History) Comment:Per regional bookmobile driver for [facility], 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 The last day before reporting a new confirmed COVID-19 would be 12/08/20. -Alida Banda RN 09/09/2020 12/25/2020 Rhinovirus 05/15/2025 05/15/2025 06/14/2025 9:08 PM EDT documented as of this encounter Care Teams Head Of Commission Department Relationship Specialty Start Date End Date Michaela Sousa APRN [facility] [place] [address] PCP - General Internal Medicine 09/04/24 documented as of this encounter
--- OUTSIDE RECORDS SUMMARY | 2025-06-22 12:00 | XMS_ITS | Encounter Summary ---
Author Organization [place] [address] Care Team Providers Care Insole Doubler Name Role Phone Radha Ordaz LPN Unavailable Unav ailable Encounter Details Date Type Department Care Team (Late st Contact Info) Description 11/02/2018 Lab Requisition [facility] [place] [address] Wendy Emerson MD [address] [place] [phone] Other specified abnormal findings of blood [...] - 58 pg/mL 11/04/2018 2:20 PM EST [employer] Comment: INTERPRETIVE INFORMATION: Adrenocorticotropic Hormone Some types of synthetic ACTH are not detected by this assay. Access complete set of age- and/or gender-specific reference intervals for this test in the [facility] Directory ([employer]). Performed by [facility], [address] [place] [id number] [email or web address], Robert Restrepo MD, Lab. Director Blood VENOUS BLOOD / Unknown 11/02/2018 8:40 AM EST 11/02/2018 2:17 PM EST us Wendy Emerson MD CHEMISTRY ORDERABLES Fin al Result [employer] [address] [place] [address] documented in this encounter Visit Diagnoses Diagnosis Other specified abnormal findings of blood chemistry documented in this encounter Additional Health Concerns Assessment Noted Time PHQ-9 Depression Total Score: 2 10/07/19 19 4:43 PM EST PHQ-2 Depression Total Score: 2 10/07/19 19 4:43 PM EST documented as of this encounter Care Teams Insole Doubler Relationship Specialty Start Date End Date Radha Ordaz LPN Hot [employer] Licensed Practical Nurse 03/15/20 04/02/20 documented as of this encounter
--- OUTSIDE RECORDS SUMMARY | 2025-06-22 12:00 | XMS_ITS | Encounter Summary ---
Author Organization [place] [address] Care Team Providers Care Washcoat Wiper Name Role Phone Radha Ordaz LPN Unavailable Unav ailable Encounter Details Date Type Department Care Team (Late st Contact Info) Description 11/02/2018 Lab Requisition [facility] [place] [address] Wendy Emerson MD [address] [place] [phone] Other specified abnormal findings of blood [...] 19.47 mcg/dL 9 5:29 PM EST PREFERRED Personeta, frenting Blood VENOUS BLOOD / Unknown 11/02/2018 9:45 AM EST 11/02/2018 4:09 PM EST Narrative PREFERRED Personeta, frenting - 11/02/2018 5:29 PM EST Normal Peak : > 20 ug/dl Wendy Emerson MD CHEMISTRY ORDERABLES Fin al Result Performing Organization Address [facility] [address]/[facility] de Phone Number [email or web address] [address] [place] [address] , [place] [address] * CORTISOL 30 MINUTES (11/02/2018 9:15 AM EST) Cortisol 30 Min 17.48 mcg/dL 9 5:35 PM EST [email or web address] Blood VENOUS BLOOD / Unknown 11/02/2018 9:15 AM EST 11/02/2018 4:09 PM EST Narrative [employer] Rec[employer], frenting - 11/02/2018 5:35 PM EST Normal Peak : > 20 ug/dl Wendy Emerson MD CHEMISTRY ORDERABLES Fin al Result Performing Organization Address [facility] Phone Number [email or web address] [address] [facility] , [place] [address] * CORTISOL BASELINE (11/02/2018 8:40 AM EST) Cortisol Baseline 10.37 mcg/dL 11/02/2018 5:35 PM EST [email or web address] Blood VENOUS BLOOD / Unknown 11/02/2018 8:40 AM EST 11/02/2018 4:09 PM EST Narrative [email or web address] - 11/02/2018 5:35 PM EST Ingestion of jose doses of biotin (>5 mg/day) taken within 8 hours of drawing blood sample can interfere with this immunoassay test. Wendy Emerson MD CHEMISTRY ORDERABLES Fin al Result Performing Organization Address [facility] de Phone Number Pay with a Tweet [facility] [address] [facility] , [place] [address] documented in this encounter Visit Diagnoses Diagnosis Other specified abnormal findings of blood chemistry documented in this encounter Additional Health Concerns Assessment Noted Time PHQ-9 Depression Total Score: 2 10/07/19 19 4:43 PM EST PHQ-2 Depression Total Score: 2 10/07/19 19 4:43 PM EST documented as of this encounter Care Teams Washcoat Wiper Relationship Specialty Start Date End Date Radha Ordaz LPN Chainstitch Binder Licensed Practical Nurse 03/15/20 04/02/20 documented as of this encounter
--- OUTSIDE RECORDS SUMMARY | 2025-06-22 12:00 | XMS_ITS | CCD ---
Author Name Interface, [id number] lity Address [address] [place], [place] [id number] Organization [facility] Address [address] [place], [place] [id number] Care Team Providers Care Bi Technical Lead Name Role Phone Sukhjinder KAISER, Jens Purvis Unavailable Unavailable Reason for Visit Medications Problems Social History
--- OUTSIDE RECORDS SUMMARY | 2025-06-22 12:00 | XMS_ITS | Encounter Summary ---
[facility] Address [address] [place] [address] Care Team Providers Care Sledger Name Role Phone Michaela Sousa APRN Primary Care Provider + [phone] Encounter Details Date Type Department Care Team (Late st Contact Info) Description 05/22/2025 Results Follow-Up [facility] 1740 [place] [address] Aminata Nassar MD 1720 [facility] [address] [place] [address] Social History Tobacco Use Types Packs/Day Years Used Date Smoking Tobacco: Never Passive Smoke Exposure: Never Smokeless Tobacco: Never Alcohol Use Standard Drinks/Week Comments No 0 (1 standard drink = 0.6 oz pur e alcohol) [facility] Utilities Answer Date Recorded In the past 12 months has [employer], gas, oil, or water [employer] threatened to shut off services in your [...] Date Recorded Retired Total Score 0 05/07/2021 [facility] [place] of Occupat ional Health - Occupational Stress [...] things needed for daily living? No 12/10/2024 [place] Depression Scale Answer Date Recorded [place] Depression Scale Total 2 12/22/2024 The thought [...] GED or equivalent No 12/10/2024 Preferred Language Nepali 12/10/2024 PHQ-2 Answer Date Recorded Patient Health [...] 05/23/2025 8:54 AM EDT Sent results to [employer] . documented in this encounter Plan of Treatment Upcoming Encounters Date Type Department Care Team (Late st Contact Info) Description 10/31/2025 3:15 PM EST Office Visit [facility] [address] [address] Aminata Nassar MD [address] [phone] documented as of this encounter Visit Diagnoses Not on filedocumented in this encounter Additional Health Concerns Infection Onset Date Last Indicated Resolved Time COVID (History) Comment:Per regional mutual fund sales agent for [facility], 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 The last day before reporting a new confirmed COVID-19 would be 12/08/20. -Alida Banda RN 09/09/2020 12/25/2020 Rhinovirus 05/15/2025 05/15/2025 06/14/2025 9:08 PM EDT documented as of this encounter Care Teams Sledger Relationship Specialty Start Date End Date Michaela Sousa APRN [address] [place] [address] PCP - General Internal Medicine 09/04/24 documented as of this encounter
--- OUTSIDE RECORDS SUMMARY | 2025-06-22 12:00 | XMS_ITS | Encounter Summary ---
Author Organization [facility] Address [address] [place] [address] Care Team Providers Care Cable Television Installer Name Role Phone Michaela Sousa APRN Primary Care Provider + [phone] Encounter Details Date Type Department Care Team (Latest Contact Info) Description 06/01/2025 Travel Social History Tobacco Use Types Packs/Day Years Used Date Smoking Tobacco: Never Passive Smoke Exposure: Never Smokeless Tobacco: Never Alcohol Use Standard Drinks/Week Comments No 0 (1 standard drink = 0.6 oz pur e alcohol) [facility] Utilities Answer Date Recorded In the past 12 months has [employer], gas, oil, or water company threatened to [...] Date Recorded Retired Total Score 0 05/07/2021 [facility] [place] of Occupat ional Health - Occupational Stress [...] things needed for daily living? No 12/10/2024 [place] Depression Scale Answer Date Recorded [place] Depression Scale Total 2 12/22/2024 The thought [...] GED or equivalent No 12/10/2024 Preferred Language Martiniquais 12/10/2024 PHQ-2 Answer Date Recorded Patient Health [...] 6:18 PM EDT Jody Gauthier, DEEPAK * [place] Suicide Severity Rating Scale (Screener/Recent Self-Report) Question Answer Date of Assessment Author 1. Wish to be (Past 1 Month) No 025 6:18 PM EDT Jody Gauthier, DEEPAK 2. Non-Specific Active Suici genevieve Thoughts (Past 1 Month) No 06/01/2025 6:18 PM EDT Gwen Gauthier RN 6. Suicidal Behavior (Lifetime) No 5 6:18 PM EDT Jody Gauthier, RN documented as of this encounter Plan of Treatment Upcoming Encounters Date Type Department Care Team (Late st Contact Info) Description 10/31/2025 3:15 PM EST Office Visit [facility] GASTR[facility]OLOG[facility] [address] [phone] Aminata Nassar MD [address] [address] documented as of this encounter Visit Diagnoses Not on filedocumented in this encounter Additional Health Concerns Infection Onset Date Last Indicated Resolved Time COVID (History) Comment:Per regional polymer materials consultant for [facility], 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 The last day before reporting a new confirmed COVID-19 would be 12/08/20. -Alida Banda RN 09/09/2020 12/25/2020 Rhinovirus 05/15/2025 05/15/2025 06/14/2025 9:08 PM EDT documented as of this encounter Care Teams Cable Television Installer Relationship Specialty Start Date End Date Michaela Sousa APRN [address] [place] [address] PCP - General Internal Medicine 09/04/24 documented as of this encounter
--- OUTSIDE RECORDS SUMMARY | 2025-06-22 12:00 | XMS_ITS | Clinical Summary ---
Author Organization [facility] Address [facility] [address] [place], [place] [address] Phone Care Team Providers Care Casting Machine Operator Automatic Name Role Phone Unavailable Primary Care Provider [...] a complete record from that organization. b zltgqmx-U-ejirt acid (NEPHROCAP) 1 mg Oral Capsule Take [...] (07/05/2020): Added automatically from request for surgery [id number] Pelvic pain 07/05/2020 Overview (07/05/2020): Added automatically from request for surgery [id number] Scoliosis of thoracic spine 03/09/2019 S/P endometrial [...] harmonic scalpel of endometriosis ; Surgeon: Sharath Desri MD; Location: [facility] OR; Service: Gynecology [...] Story LPN Medical Devices Implanted Type Area Alumina Plant Supervisor Device Identifier Shelf Expiration Date Model / Serial / Lot Screw For Bridge Insurance [facility] CHOICE PLUS [facility] CHOICE PLUS [facility] CHOICE PLUS [facility] CHOICE PLUS [facility] CHOICE PLUS * Guarantor: Maia Kovacs Account Type Relation to Patient Date of Phone Billing Address [place] Personal Family Self Advance Directives For more information, please contact: [phone] * Full Code (Latest Code Status on [...]
--- OUTSIDE RECORDS SUMMARY | 2025-06-22 12:00 | XMS_ITS | Clinical Summary ---
Author Organization [facility] Address [address] [place] [address] Care Team Providers Care System Operation Superintendent Name Role Phone Nonstaff, Referring Primary Care Provider +1- [phone] Johnnie Shearer MD Unavailable +[phone] Allergies Active Allergy Reactions Criticality Noted Date [...] 40 mg by mouth daily. Active Coenzyme D69-Ylvslmr E 100-5 mg-unit Capsule Take 400 mg [...] Relation to Subscriber:Self Name:Maia Kovacs Payer ID:[id number] ([facility]) Type:PPO Address: [facility] [id number] [place] [id number] Care Teams System Operation Superintendent Relationship Specialty Start Date End Date Nonstaff, MD [place] [address] [place] [address] PCP - General 02/16/23 Johnnie Shearer MD [address] [place], [place] [phone] Gastroenterology 02/16/23
--- OUTSIDE RECORDS SUMMARY | 2025-06-22 12:01 | XMS_ITS | Clinical Summary ---
Author Organization [facility] Address [address] [facility], [address] [place] [address] Care Team Providers Care Varnish Cooker Name Role Phone Carmen Juan APRN - [...] on file Medical Devices Implanted Type Area Technical Support Internship Device Identifier Shelf Expiration Date Model / Serial / Lot Jaw Screw Screw/Pl ate/Nail /Alban Left: Mandible Description:MRI compatible Insurance [facility] [place] [id number] Advance Directives * Full Code (Latest Code Status on File) Date Activated Date Inactivated Comments 12/10/2018 3:14 AM 12/10/2018 9:58 PM * Full Code Date Activated Date Inactivated Comments 10/08/2018 12:42 AM 10/09/2018 3:48 PM Care Teams Varnish Cooker Relationship Specialty Start Date End Date Carmen Juan APRN - NP [facility] [address] [place] [address] PCP - General 07/22/20
--- OUTSIDE RECORDS SUMMARY | 2025-06-22 12:01 | XMS_ITS | Patient Health Record ---
Author Organization [facility] Address [address] [facility] [address] [place] [address] Care Team Providers Care Deposit Clerk Name Role Phone Chelita Jackson Unavailable [phone] Shivam Sutton Unavailable [phone] HuyValencia Unavailable [phone] Anthony Luna Unavailable [phone] Lani Gould Unavailable [phone] Leah Acosta Unavailable [phone] Georgie Perez Unavailable [phone] Allergies Allergen (clinical drug ingredient) Drug/Non Drug [...] date:08/23/2024 10:39:14 AM Interpretation: Performing Lab: Notes/Report: [facility] Transabdominal Obstetric Study Report Name: ROCIO KOVACS Accession/Encounter No:[id number] : 1990 Age: 34 Gender: F Study [...] 1 of 1 Imaging Center - , [facility] [address] *US OB Follow-Up Reviewed date:09/25/2024 07:57:44 AM Interpretation: Performing Lab: Notes/Report: [facility] Transabdominal Obstetric Study Report Name: ROCIO KOVACS Accession/Encounter No:[id number] : 1990 Age: 34 Gender: F Study [...] 1 of 1 Imaging Center - , [facility] * OB Follow-Up Reviewed date:11/01/2024 03:28:29 PM Interpretation: Performing Lab: Notes/Report: [facility] Transabdominal Obstetric Study Report Name: ROCIO KOVACS Accession/Encounter No:[id number] : 1990 Age: 34 Gender: F Study [...] 1 of 1 Imaging Center - , [facility] CBC Reviewed date:11/01/2024 02:12:26 PM Interpretation: Performing Lab: Notes/Report: Comprehensive Metabolic Pane l (CMP) Reviewed date:11/01/2024 03:32:55 PM Interpretation:Normal Performing Lab: Notes/Report: Normal LDH Reviewed date:11/01/2024 02:11:41 PM Interpretation: Performing Lab: Notes/Report: Uric Acid, Serum Reviewed date:11/01/2024 02:12:09 PM Interpretation: Performing Lab: Notes/Report: Group B Strep by PCR w/ PCN allergy Reviewed date:11/27/2024 09:52:59 PM Interpretation:Negative Performing Lab: Notes/Report: [facility] Testing performed at: [] [facility], [address] [place] [address], [place], [address], , Purchasing Coordinator: Jean Kebede, PhD Strep Gp B GREYSON+Rflx Negative Negative N Centers for Disease Control and Prevention (CDC) and [place] [employer] of Obstetricians and Gynecologists (ACOG) guidelines [...] 140-450 10*3/mm3 Lab specimens received at a [facility].?See result details for the performing location information. [...] 140-450 10*3/mm3 Lab specimens received at a [facility].?See result details for the performing location information. GLUCOSE, POST 50 GM GLUCOLA Reviewed date:10/03/2024 03:01:33 PM Interpretation:passed - 82 Performing Lab: Notes/Report: GESTATIONAL GCT 82 65-139 mg/dL Lab spe cimens received at a [facility].?See result details for the performing location information. ANTIBODY SCREEN Reviewed date:10/03/2024 03:20:01 PM Interpretation:negative Performing Lab: Notes/Report: ANTIBODY SCREEN Negative Lab speci mens received at a [facility].?See result details for the performing location information. TISSUE PATHOLOGY EXAM Reviewed date:12/13/2024 01:05:40 PM Interpretation: Performing Lab: Notes/Report: LAB AP CASE REPORT Surgical Pathology Report Case: [id number] LAB AP CASE REPORT Authorizing Provider : Shivam Sutton MD Collected: 12/10/2024 01:35 PM LAB AP CASE REPORT Ordering Location: [facility] Received: 12/11/2024 06:35 AM LAB AP CASE REPORT LABOR DELIVERY LAB AP CASE REPORT Pathologist: Ignacia Piedra DO LAB AP CASE REPORT Specimen: Fallopian Tubes, Bilateral LAB AP CLINICAL INFORMATION Encounter for sterilization LAB AP FINAL DIAGNOSIS BILATERAL FALLOPIAN TUBES, STERILIZATION: LAB AP FINAL DIAGNOSIS Complete cross-sections of bilateral fallopian tubes identified LAB AP FINAL DIAGNOSIS at [address] [facility] AP GROSS DESCRIPTION 1. Fallopian Tubes, Bilateral. [facility] GROSS DESCRIPTION Received in formalin labeled bilateral fallopian tube are 2 intact, undesignated, fimbriated fallopian tubes averaging 9 cm long by 0.8 cm in diameter. Sectioning of each fallopian tube reveals an unremarkable stellate lumen. Cadd Technician sections of each tube to include the bisected fimbria and full-thickness cross-sections are submitted separately in 1 A- 1B. [facility] AP MICROSCOPIC DESCRIPTION The slides are reviewed and demonstrate histopathologic features supporting the above rendered diagnosis. Lab specimens received at a [facility].?See result details for the performing location information. [...] /100 WBC Lab specimens received at a [facility].?See result details for the performing location information. TREPONEMA PALLIDUM (SYPHILIS ) SCREENING CASCADE Reviewed date:10/04/2024 07:53:59 AM Interpretation:non reactive Performing Lab: Notes/Report: Reactive results will reflex RPR testing. TREPONEMAL AB TOTAL Non-Reactive Non-Reacti Lab specimens received at a [facility].?See result details for the performing location information. 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 Currently Diagnosis 1 Rectal bleeding (K62 .5) Referral Organization [facility] Referring Provider First Name Leah Referring Provider Last Name Dave Referring Provider Speciality OB - Gynec ology Referral Priority Routine Referral Appointment Date 08/03/2024 Reason skin issues in pregn paul Diagnosis 1 Skin abnormality (L9 8.9) [facility] First Name Georgie Referring Provider [...] weeks gestation o f (Z3A.22) Referral Organization [facility] Referring Provider First Name Shivam Referring Provider Last Name Herman Referring Provider Speciality OB - Gynec ology General Notes Antonia Moulton 09/18 03:52:27 PM >Pt went to er for fluids and has zofran this is no longer needed Referral Priority Urgent Medications Medication SIG (Take, Route, Frequency, Duration) Notes Start Date End Date Status Propranolol HCl 11/10/2018 Act jorden Gabapentin 12/12/2018 Active hydrOXYzine HCl 11/02/2018 Act jorden Lexapro Active Anaprox DS 1 tablet oral Q12H 12/22/2018 Active Pepcid Active Methergine 0.2 MG Tablet 1 tablet Orally Three times a day; Duration: 3 days 12/27/2024 Active Ketorolac Tromethamine 12/06/2018 Active Ondansetron 12/13/2018 Active Vitamin D Active Iron Active Pantoprazole [...] Domestic violence: No Do you have any sikh, m oral, or cultural beliefs or customs that your provider should know about? No Would you object to blood products in the event of an emergency? No Problems Problem Type SNOMED Code ICD Code Onset Dates Problem Status W/U Status Risk Notes Problem Endometriosis (104466653) Endometriosis (N80.9) Active confirmed Problem Female urinary stress incontinence (26857813) ELIZABETH (stress urinary incontinence, female) (N39.3) Active confirmed Problem Chronic anemia (283302701) Chronic anemia (D64.9) Active confirmed Problem History of gastrointestinal disease (204186162) Hx of hepatic disease (Z87.19) Active confirmed Problem Second trimester (81887554) Encounter for supervision of other normal , second trimester (Z34.82) Active confirmed Problem Excessive vomiting (78936105) Excessive vomiting (O21.9) 021 Active confirmed Nausea and vomiting in Problem Genetic mutation (finding) (84176563) 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) Active confirmed Problem History of section (237517990) History of delivery (Z98.891) Active confirmed Problem Sterilization requested (situation) (695937045) Request for sterilization (Z30.2) Active confirmed Problem Abnormal uterine bleeding (14281815739421) Abnormal uterine bleeding (N93.9) Active confirmed Problem History of hemorrhage (761085220) History of hemorrhage (Z87.59) Active confirmed Problem Endometrioma (579977466) Endometrioma (N80.129) Active confirmed Vital Signs Blood pressure diastolic 64 mm Hg 06/20/2025 Height 69 in 06/20/2025 Blood pressure systolic 104 mm Hg 06/20/2025 Weight 158.6 lbs 06/20/2025 BMI 23.42 kg/m2 06/20/2025 Encounters Encounter Location Date Provider Diagnosis [facility] [address] [facility] [address] [place] [address] 09/07/2024 Leah Acosta Encounter for supervision of other normal , second trimester Z34.82 [facility] [address] [facility] [address] [place] [address] 09/11/2024 Chelita Jackson [facility] [address] [facility] [address] [place] [address] 09/11/2024 Chelita Jackson Encounter for other screening follow-up Z36.2 [facility] [address] [facility] [address] [place] [address] 10/04/2024 [facility] [address] [place] [address] 11/30/2024 [facility] [address] [facility] [address] [place] [address] 12/01/2024 [facility] [address] [place] [address] 12/13/2024 Shivam Sutton [facility] [address] [place] [address] 12/18/2024 Shivam Sutton Encounter for routin e follow-up Z39.2 [facility] [address] [place] [address] 01/10/2025 Shivam Sutton [facility] [address] [place] [address] 06/18/2025 Shivam Sutton Pelvic pain R10.2 [facility] [address] [place] [address] 11/22/2024 Shivam Sutton [facility] [address] [place] [address] 12/12/2024 Shivam Sutton [facility] [address] [place] [address] 12/13/2024 Shivam Sutton [facility] [address] [place] [address] 12/14/2024 Shivam Sutton [facility] [address] [place] [address] 12/14/2024 Shivam Sutton [facility] [address] [place] [address] 12/14/2024 Shivam Sutton [facility] [address] [place] [address] 12/26/2024 Shivam Sutton Abnormal uterine bleeding N93.9 [facility] [address] [place] [address] 12/26/2024 Shivam Sutton [facility] [address] [place] [address] 12/28/2024 Shivam Sutton [facility] [address] [facility] [address] [place] [address] 12/31/2024 Shivam Sutton [facility] [address] [facility] [address] [place] [address] 01/15/2025 Shivam Sutton [facility] [address] [facility] [address] [place] [address] 06/20/2025 Shivam Herman Endometriosis N80.9 ; Pelvic pain R10.2 ; ELIZABETH (stress urinary incontinence, female) N39.3 and Endometrioma N80.129 [facility] [address] [facility] [address] [place] [address] 07/24/2024 Leah Acosta Encounter for supervision of other normal , second trimester Z34.82 ; 17 weeks gestation of Z3A.17 ; Bruising T14.8XXA ; Chronic anemia D64.9 ; History of delivery Z98.891 ; Request for sterilization Z30.2 ; History of hemorrhage Z87.59 ; Gene mutation Z15.89 ; Hx of hepatic disease Z87.19 and Excessive vomiting O21.9 [facility] [address] [facility] [address] [place] [address] 12/27/2024 Shivam Sutton Encounter for routin e follow-up Z39.2 and Encounter for screening for maternal depression Z13.32 [facility] [address] [facility] [address] [place] [address] 11/01/2024 Georgie Perez Encounter for supervision of other normal , third trimester Z34.83 and 32 weeks gestation of Z3A.32 [facility] [address] [facility] [address] [place] [address] 11/23/2024 Shivam Herman Other specified screening Z36.89 [facility] [address] [facility] [address] [place] [address] 11/30/2024 Shivam Herman 36 weeks gestation o f Z3A.36 ; Encounter for supervision of other normal , third trimester Z34.83 and Uterine contractions O47.9 [facility] [address] [facility] [address] [place] [address] 09/18/2024 Lani Gould 28 weeks gestation o f Z3A.28 [facility] [address] [facility] [address] [place] [address] 10/17/2024 Shivam Sutton 30 weeks gestation o f Z3A.30 ; Encounter for supervision of other normal , third trimester Z34.83 and Hyperemesis gravidarum O21.0 [facility] [address] [facility] [address] [place] [address] 11/14/2024 Shivam Sutton 34 weeks gestation o f Z3A.34 ; Encounter for supervision of other normal , third trimester Z34.83 and labor without delivery O60.00 [facility] [address] [facility] [address] [place] [address] 11/28/2024 Georgie Perez Encounter for supervision of other normal , third trimester Z34.83 and 36 weeks gestation of Z3A.36 [facility] [address] [facility] [address] [place] [address] 10/03/2024 Valencia Son Encounter for supervision of other normal , third trimester Z34.83 and 28 weeks gestation of Z3A.28 [facility] [address] [facility] [address] [place] [address] 12/05/2024 Shivam Herman 37 weeks gestation o f Z3A.37 and Encounter for supervision of other normal , third trimester Z34.83 [facility] [address] [facility] [address] [place] [address] 08/22/2024 Georgie Perez 22 weeks gestation o f Z3A.22 and Encounter for supervision of other normal , second trimester Z34.82 [facility] [address] [facility] [address] [place] [address] 09/18/2024 Lani Gould Encounter for other screening follow-up Z36.2 [facility] [address] [facility] [address] [place] [address] 08/22/2024 Leah Acosta Encounter for supervision of other normal , second trimester Z34.82 [facility] [address] [facility] [address] [place] [address] 11/01/2024 Georgie Perez Encounter for supervision of other normal , third trimester Z34.83 [facility] [address] [facility] [address] [place] [address] 06/20/2025 Shivam Herman Pelvic pain R10.2 [facility] [address] [place] [address] 12/10/2024 Shivam Sutton Assessments Encounter Date Diagnosis (ICD Code) Assessment [...] 12/26/2024 Abnormal uterine bleeding (ICD-10 - N93.9) 06/20/2025 Endometriosis (ICD-10 - N80.9) known h/o endometriosis and s/p laparoscopies. She is done childbearing and desires definitive management with TRH/BSO. Surgical risks reviewed. Recovery time of 6wks reviewed. Will schedule. 06/20/2025 Pelvic pain (ICD-10 - R10.2) see above 06/18/2025 Pelvic pain (ICD-10 - R10.2) 06/20/2025 Pelvic pain (ICD-10 - R10.2) 06/20/2025 ELIZABETH (stress urinary incontinence, female) (ICD-10 - N39.3) reports h/o bladder sling. Will refer to [facility]. Discussed possible urethral bulking agents as next step 12/27/2024 Encounter for screening for maternal depression (ICD-10 - Z13.32) 11/14/2024 labor without delivery (ICD-10 - O60.00) 10/17/2024 Hyperemesis gravidarum (ICD-10 - O21.0) 07/24/2024 Bruising (ICD-10 - T14.8XXA) 11/30/2024 Uterine contractions (ICD-10 - O47.9) 07/24/2024 Chronic anemia (ICD-10 - D64.9) 06/20/2025 Endometrioma (ICD-10 - N80.129) desires BSO for definitive mangement of endometriosis 07/24/2024 History of delivery (ICD-10 - Z98.891) 07/24/2024 Request for sterilization (ICD-10 - Z30.2) 07/24/2024 History of hemorrhage (ICD-10 - Z87.59) 07/24/2024 Gene mutation (ICD-10 - Z15.89) 07/24/2024 Hx of hepatic disease (ICD-10 - Z87.19) 07/24/2024 Excessive vomiting (ICD-10 - O21.9) Nausea and vomiting in Plan Of Treatment Pending Test Test Name Order Date *US Pelvis Complete Transabdominal/Vagin al (Non-OB) 06/20/2025 Insurance Providers Payer Name Payer Address Payer Phone Subscriber Number Group Number Insured Name Patient Relationship to Insured Coverage Start Date Coverage End Date [facility] [address] [address] [place], [place] [id number] Rocio Kovacs Self - patient is the insured Medical (General) History Medical History History ICD Code Anemia Anxiety Blood Transfusion Depression GERD/Acid Reflux Gallbladder Disease Kidney Stones Migraine Headaches endometriosis Surgical History Surgery Date(Month/Year) C section x2 Liver surgery Cholecystectomy - 2009 Dx Lap - fulguration of endometriosis 20 20 Rhinoplasty Tonsillectomy - child Bilateral Tubal Ligation Hospitalization History Reason Date(Month/Year) labor and delivery
--- OUTSIDE RECORDS SUMMARY | 2025-06-22 12:01 | XMS_ITS | Encounter Summary ---
Author Organization [facility] Address [address] [place] [address] Care Team Providers Care Brace End Mainspring Former Name Role Phone SousaSoraidarebekah KING Primary Care Provider [phone] Reason for Visit * Reason Onset Date Comments Med Refill 05/31/2025 Encounter Details Date Type Department Care Team (Late st Contact Info) Description 05/31/2025 Refill [facility] [address] [phone] Aminata Nassar MD [address] [place] [address] Hyperemesis gravidarum Social History Tobacco Use Types Packs/Day Years Used Date Smoking Tobacco: Never Passive Smoke Exposure: Never Smokeless Tobacco: Never Alcohol Use Standard Drinks/Week Comments No 0 (1 standard drink = 0.6 oz pur e alcohol) [facility] Utilities Answer Date Recorded In the past 12 months has [employer], gas, oil, or water [employer] threatened to shut off services in your [...] Date Recorded Retired Total Score 0 05/07/2021 [facility] - Occupational [...] things needed for daily living? No 12/10/2024 [place] Depression Scale Answer Date Recorded [place] Depression Scale Total 2 12/22/2024 The thought [...] 6:18 PM EDT Jody Gauthier, DEEPAK * [place] Suicide Severity Rating Scale (Screener/Recent Self-Report) Question [...] 10/31/2025 3:15 PM EST Office Visit [facility] [address] [address] Aminata Nassar MD [address] [address] documented as of this encounter Visit Diagnoses Diagnosis Hyperemesis gravidarum Mild hyperemesis gravidarum, unspecified as to episode of care documented in this encounter Additional Health Concerns Infection Onset Date Last Indicated Resolved Time COVID (History) Comment:Per regional police clerk for [facility], 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 The last day before reporting a new confirmed COVID-19 would be 12/08/20. -Alida Banda RN 09/09/2020 12/25/2020 Rhinovirus 05/15/2025 05/15/2025 06/14/2025 9:08 PM EDT documented as of this encounter Care Teams [employer] Former Relationship Specialty Start Date End Date Michaela Sousa APRN [address] [place] [address] [facility] [id number] PCP - General Internal Medicine 09/04/24 documented as of this encounter
--- OUTSIDE RECORDS SUMMARY | 2025-06-22 12:01 | XMS_ITS | Data Portability ---
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 The patient also complains [...] __ __ __ __ __ _ JOE: [id number] I have reviewed patient's JOE report prior to prescribing Schedule II, III, and IV medications that require review by law. [email or web address] Not available 12/17/2022 12:55:12 01/22/2023 01/22/2023 The [...] __ __ __ __ __ _ JOE: [id number] I have reviewed patient's JOE report prior to prescribing Schedule II, III, and IV medications that require review by law. [email or web address] Not available 01/22/2023 13:01:57 Plan of Treatment Reminders Order Date Submit Date Provider Last Modified By Organization Details Last Modified Time Details Appointments None recorded. Lab None recorded. Referral None recorded. Procedures medial branch block, thoracic (PROC) - 58247, 40216 bilateral T9-T11 2022 023 Not available 3 15:54:30 injection , trigger point (PROC) - 43565, 99072 bilateral thoracic region including longissim us thoracis, thoracis spinalis and rhomboid muscles 2022 023 [email or web address] Not available 3 15:03:18 Surgeries None recorded. Imaging XR, cervical spine 2022 023 [email or web address] Not available 3 13:45:07 Medication Orders tizanidin e 4 mg tablet 2022 023 [facility], [address] [place] [address], [id number], 3 22:28:06 Patient TargetsNo targets recorded. Patient InstructionsNo instructions recorded. Reason for Referral None Reported. Problems Name Problem SNOMED Code Status Onset Date Resolution Date Notes Provider Name and Address Organization Details Recorded Time Neck pain 84442863 Active 2022 Not Available [facility] 3 14:05:10 Spinal stenosis in cervical region 24197663 Active 2022 Not Available [facility] 3 14:05:10 Lumbar spondylosi s 099969693 Active 2022 Not Available [facility] 3 14:05:09 Thoracic spondylosi s 759897430 Active 2022 Not Available [facility] 3 14:05:10 Myofascial pain 454318131 Active 2022 Not Available [facility] 3 14:05:09 Dextroscol iosis 0898402416198 01 Active 2022 Not Available [facility] 3 14:05:10 Pain in pelvis 71733990 Active 2022 Not Available [facility] 3 14:05:09 History of endometrio sis 3344066604246 4107 Active 2022 Not Available [facility] 3 14:05:09 Pain in thoracic spine 466495395 Active 2022 Not Available [facility] 3 14:05:09 Problem Notes None recorded. Procedures Surgical History Date Name Laterality Status Provider Name and Address Organization Details Recorded Time tonsilectom y/adenoids completed [facility] Mona WANG [facility] & [place] 12/11/2022 11:34:45 Imaging Results None recorded. Procedure Notes None recorded. Medical Equipment None Reported. Allergies Allergen ID Allergen Name Allergen Category Reaction Reaction Severity Criticality Documentation Date Start Date Code Code System Note Provider Name and Address Organization Details Recorded Time 91426 latex environme nt,medica tion Not available Not available Not available 12/11/2022 80361 91 RxNorm [facility] [place] 3 11:33:33 64139 Substance with sulfonami de structure and antibacte rial mechanism of action (substanc e) medicatio n Not available Not available Not available 12/11/2022 60560 8003 SNOMED [facility] & [place] 3 11:33:38 Medications Name Sig Start Date [...] [facility] [...] blood by Pulse oximetry Heart rate Systolic And Diastolic Provider Name and Address Organization Details Last Updated DateTime 3 42694.3 7 g 97.1 [degF] 99 % 99 % 67 /min 126/73 mm[Hg] Michelle Rangel [facility] & [place] 3 11:41:58 Date Recorded Body height Body mass index (BMI) Body weight Body temperature Oxygen saturation Oxygen saturation in Arterial blood by Pulse oximetry Heart rate Respiratory rate Systolic And Diastolic Provider Name and Address Organization Details Last Updated DateTime 3 175.26 cm 24.9 kg/m2 98370.6 7 g 97.1 [degF] 100 % 100 % 80 /min 20 /min 113/72 mm[Hg] Ignacia Faust [facility] & [place] 3 11:52:15 Social History None recorded. Functional [...] None N Head Trauma/Injury N Hernia N Thyroid Problems N Depression N COPD N Anemia N Ulcers N Heart Attack (OR) N Diabetes N Anxiety Disorder Y Bleeding Disorder N Arthritis N Tuberculosis N [...] Diagnosis SNOMED-CT Code Diagnosis ICD10 Code Diagnosis IMO Codes Diagnosis Note [id number] Robinson Springer MD [facility] [address] [facility] [place] [address] 12/17/2022 11:23:48 12/17/2022 12:06:58 Neck pain 39073837 M54.2 Spinal venita nosis in cervical region 75010815 M99.51 Lumbar spondylosis 99384 0009 M47.816 Myofascial pain 44147828 9 M79.10 Thoracic spondylosis 387 979823 M47.814 Dextroscoliosis 87762801 01 41821 M41.9 Pain in pelvis 45122395 R10.2 History of endometriosis 1413620159 8191308 Z87.42 Pain in th oracic spine 996300683 M54.6 Spinal enthesopathy 1031 7009 M46.04 [id number] SAIDA DEL REAL PA-C [facility] [address] [facility] [address] [place] [address] 01/22/2023 11:36:10 01/22/2023 12:03:48 Spinal enthesopathy 75887305 M46.04 Spinal venita nosis in cervical region 34308194 M99.51 Thoracic spondylosis 387 127399 M47.814 Myofascial pain 73690409 9 M79.10 Neck pain 07859626 M54.2 Lumbar spondylosis 13997 0009 M47.816 Dextroscoliosis 02153654 01 76380 M41.9 Pain in pelvis 46697849 R10.2 History of endometriosis 0632819876 5119710 Z87.42 Pain in th oracic spine 643973713 M54.6 Health Concerns Section Related Observation LastModified by Organization Detai ls LastModified Time None Recorded Concern Status LastModified by Organization Details LastModified Time None Recorded Advance Directives Directive None Recorded Payers Insurance Date Sequence Insurance Name Policy Number Policy Interiano Covered Member ID Interiano Member ID Guarantor Name 04/15/2024 1 [place] [facility] [place] [id number] 1 Maia Kovacs [id number] Maia Kovacs 11/25/2021 1 [facility] [id number] Nolan Kovacs [id number] Maia Gregg 12/17/2022 1 [facility] [id number] Nolan Bermudezchie [id number] Maia Kovacs Notes Date Note Type Note [...] Surgery: none Imaging/Studies: none Robinson Springer MD [address], [place], [address], [facility] [place] & [place] 12/17/2022 22:28:10 3 text/html ROS as noted in the HPI Ms. Kovacs was referred by her PCP [...] relationships, and walking.Current Pain Medications: Tizanidine 4mg E24Rolqf Pain Medications: Reports being on intermittent opioids hydrocodone/a Pap and gabapentin 100 mgNSAIDS/OTC: mildly helpfulNon-interventiona l Tx: TENS unitPhysical Therapy: at home exercises/stretchesInter ventional Tx: Reports Thoracic rhizotomy in 2008, LRFA March 2020Surgery: noneImaging/Studies: none SAIDA DEL REAL PA-C [address] , [place], [address], [facility] - [place] & [place] 01/22/2023 13:03:04 OBGyn Episode No OBEpisode recorded.
--- OUTSIDE RECORDS SUMMARY | 2025-06-22 12:02 | XMS_ITS | Clinical Summary ---
Author Organization [facility] Address [address] [place] [address] Care Team Providers Care Customs Import Specialist Name Role Phone Lars Michaela KING Primary Care Provider + [phone] Allergies Active Allergy Reactions Criticality Noted Date [...] Hours As Needed (constipation ). 4 each 5 Active cyclobenzaprine (FLEXERIL) 10 MG tablet Take 1 tablet by mouth 3 times a day. 5 Active gabapentin (NEURONTIN) 300 MG capsule Take 1 capsule by mouth 2 (Two) Times a Day. Active pantoprazole (PROTONIX) 40 MG EC tabletIndicatio ns:Hyperemesis gravidarum Take 1 tablet by mouth 2 (Two) Times a Day. 180 tablet 3 5 Active pantoprazole (PROTONIX) 40 MG EC tabletIndicatio ns:Hyperemesis gravidarum Take 1 tablet by mouth 2 (Two) Times a Day. 180 tablet 3 4 05/31/20 25 Discontinu ed(Reorder ) Active Problems Problem Noted Date Diagnosed Date [...] of left meniscus as current injury 12/17/19 20 Sepsis 12/14/2019 Shortness of breath 12/14/2019 Hematuria 12/14/2019 Intractable nausea and vomiting 09/23/2018 Moderate asthma 09/23/2018 Chronic blood loss anemia 09/22/2018 Overview (09/28/2018): Added automatically from request for surgery [id number] RLQ abdominal pain 09/22/2018 Overview (09/28/2018): Added automatically from request for surgery [id number] B12 deficiency 09/22/2018 Overview (09/28/2018): Added automatically from request for surgery [id number] Chronic anemia 09/18/2018 Narcotic habituation, continuous 09/17/2018 Anxiety disorder 05/12/2018 Vocal cord dysfunction 05/10/2018 Stridor 2018 Respiratory distress 05/07/2018 Moderate persistent asthma with acute exacerbati on 05/07/2018 Chronic nausea 05/07/2018 Epigastric abdominal pain 05/07/2018 Overview (05/12/2018): Added automatically from request for surgery [id number] Generalized abdominal pain 12/09/2017 Resolved Problems Problem Noted Date Diagnosed Date Resolved Date ROM (rupture of membranes), premature 12/10/2024 12/10/2024 Hematemesis 05/16/2022 05/18/2022 uterine contractions in third trimester, antepartum 04/24/2021 05/17/2021 Decreased movement 02/05/2021 11/20/2020 05/17/2021 Overview (11/20/2020): cfDNA Acute dehydration 12/14/2019 10/16/2020 Influenza B 12/14/2019 10/16/2020 Drug-induced constipation 09/22/2018 Overview (09/28/2018): Added automatically from request for surgery [id number] Non-cardiac chest pain 09/17/201810/16 Hypokalemia 09/17/2018 09/19/2018 Hypomagnesemia 09/17/2018 09/19/2018 Leukocytosis 05/07/2018 05/12/2018 Elevated liver enzymes 02/27/201810/16 Intractable nausea and vomiting 02/27/2018 03/01/2018 Intractable cyclical vomiting with nausea 02/27/2018 03/01/2018 Encounters Date Type Department Care Team Description 5 Telephone [facility] [address] [address] Aminata Nassar MD 5 3:38 PM EDT - 5 7:10 PM EDT Emergency [facility]ER[facility] [address] [place] [address] Isiah Barkley MD Chest pain, unspecified type (Primary Dx); Generalized abdominal pain; Chronic gastritis without bleeding, unspecified gastritis type Discharge Disposition: Home or Self Care 5 Travel 5 Refill [facility] [address] [address] Aminata Nassar MD Hyperemesis gravidarum 5 Results Follow-Up [facility] [address] [place] [address] Aminata Nassar MD 5 Telephone [facility] [address] [address] Aminata Nassar MD Advice Only 5 8:00 AM EDT - 5 8:33 AM EDT Surgery [facility] [address] [place] [address] Aminata Nassar MD ESOPHAGOGASTRODUODENOSCOPY [20384 (CPT )] 5 8:00 AM EDT Anesthesia Event [facility] [address] [place] [address] Bruno Michael MD 5 6:38 AM EDT - 5 9:25 AM EDT Hospital Encounter [facility] [address] [place] [address] Aminata Nassar MD Hematemesis, unspecified whether nausea present Discharge Disposition: Home or Self Care 5 Travel 5 Prep for Surgery [facility] ORD[facility] ONLY [address] [place] [address] Aminata Nassar MD Hematemesis, unspecified whether nausea present (Primary Dx) 5 6:23 PM EDT - 5 10:34 PM EDT Emergency [facility] EM[facility]GENC[facility] [address] [place] [address] Isiah Barkley MD Acute abdominal pain (Primary Dx); History of peptic ulcer disease; Nausea and vomiting in adult Discharge Disposition: Home or Self Care 5 1:30 PM EDT Office Visit [facility] [address] [facility] [address] [address] [place] [address] Leah Castillo APRN Hematemesis with nausea (Primary Dx); Change in bowel habits; Epigastric pain; Melena; Constipation, unspecified constipation type 5 Travel from Last 3 Months Immunizations [...] drink = 0.6 oz pur e alcohol) [facility] Utilities Answer Date Recorded In the past [...] Date Recorded Retired Total Score 0 05/07/2021 [facility] - Occupational Stress Questionnaire Answer Date Recorded [...] things needed for daily living? No 12/10/2024 [place] Depression Scale Answer Date Recorded [place] Depression Scale Total 2 12/22/2024 The thought [...] Description 10/31/2025 3:15 PM EST Office Visit [facility] [address] [address] Aminata Nassar MD [address] [address] Health Maintenance Due Date Last Done Comments Annual Gynecologic Pelvic an d Breast Exam 1992 Pneumococcal Vaccine 0-49 (1 of 2 - PCV) 2011 TDAP/TD VACCINES (1 - Tdap) 2011 ANNUAL PHYSICAL 12/14/2017 PAP SMEAR 10/18/2023 10/18/2020 INFLUENZA VACCINE 04/27/2025 07/15/2023, , 06/07/2018, Additional history exists HEPATITIS C SCREENING Completed 10/17/2020 , 12/08/2018, 12/10/2017 Medical Devices Implanted Type Area Wrapper Hands Sprayer Device Identifier Shelf Expiration Date Model / Serial / Lot Stnt Percuflx No Gw 4.8x26 - [id number] Implanted:Qty: 1 on 12/18/2022 by Raulito Lancaster MD at [facility] Stent Right: Urinary Bladder Vedantu 08/19/2025 [id number] / / [id number] Procedures Procedure Name Priority Date/Time Associated Diagnosis [...] ANESTHESIA INTUBATION Routine 05/17/2025 8:12 AM EDT AR ESOPHAGOGASTRODUODENOSCOP Y TRANSORAL DIAGNOSTIC 05/17/2025 8:00 [...] EDT RESPIRATORY PANEL PCR W/ COVID-19 (SARS-COV-2), ADJUSTER AND INSPECTOR SWAB IN UTM/VTP, 2 HR TAT STAT [...] EDT Workstation ID: [id number] Isiah Barkley MD IMG CT ORDERABLES Final R esult * High Sensitivity Troponin T 1Hr (06/01/2025 4:03 PM EDT) HS Troponin T <6 <14 ng/L 06/01/2025 4:45 PM EDT [facility] Troponin T Numeric Delta 06/01/2025 4:45 PM EDT [facility] Comment:Unable to calculate. Blood Line / Unknown 06/01/2025 4: 03 PM EDT 06/01/2025 4:14 PM EDT [facility] - 06/01/2025 4:45 PM EDT High [...] ORDERABLES Kate l Result Performing Organization Address City/[facility]/ZIP Co de Phone Number [facility]
[address] [place] [address], [place] [phone] * POC Urine (06/01/2025 3:09 PM EDT) Only the most recent of2 resultswithin the time period is included. HCG, Urine, QL Negative [facility] Lot Number [id number] [facility] Internal Positive Control Positive [facility] Internal Negative Control Negative [facility] Expiration Date 09/13/2026 [facility] Urine 06/01/2025 3:09 PM EDT Isiah Barkley MD POINT OF CARE TEST ORDERA BLES Final Result Performing Organization Address [facility] Co de Phone Number [facility]
[address] [place] [address], * Black Top (06/01/2025 3:06 PM EDT) Only the most recent of2 resultswithin the time period is included. Extra Tube Hold for add-ons. 06/01/2025 3:32 PM EDT [facility] Comment:Auto resulted. Blood Venipuncture / Unknown 06/01/2025 3:06 PM EDT 06/01/2025 3:25 PM EDT Isiah Barkley MD LAB BLOOD ORDER ONLY Kate l Result Performing Organization Address City/[facility]/ZIP Co de Phone Number [facility]
[address] [place] [address], [place] [phone] * Gold Top - SST (06/01/2025 3:06 PM EDT) Only the most recent of2 resultswithin the time period is included. Extra Tube Hold for add-ons. 06/01/2025 3:32 PM EDT [facility] Comment:Auto resulted. Blood Venipuncture / Unknown 06/01/2025 3:06 PM EDT 06/01/2025 3:25 PM EDT Isiah Barkley MD LAB BLOOD ORDER ONLY Kate l Result Performing Organization Address City/[facility]/ZIP Co de Phone Number [facility]
[address] [place] [address], * Green Top (Gel) (06/01/2025 3:06 PM EDT) Only the most recent of2 resultswithin the time period is included. Extra Tube Hold for add-ons. 06/01/2025 3:32 PM EDT [facility] Comment:Auto resulted. Blood Venipuncture / Unknown 06/01/2025 3:06 PM EDT 06/01/2025 3:25 PM EDT Isiah Barkley MD LAB BLOOD ORDER ONLY Kate l Result Performing Organization Address City/[facility]/ZIP Co de Phone Number [facility]
[address] [place] [address], * (ABNORMAL) Urinalysis, Microscopic Only - Urine, Clean Catch (06/01/2025 3:06 PM EDT) RBC, UA 0-2 None Seen, 0-2 /HPF 06/01/2025 3:52 PM EDT [facility] WBC, UA 0-2 None Seen, 0-2 /HPF 06/01/2025 3:52 PM EDT [facility] Bacteria, UA None Seen None Seen /HPF 06/01/2025 3:52 PM EDT [facility] Squamous Epithelial Cells, UA 3-6(A) None Seen, 0-2 /HPF 06/01/2025 3:52 PM EDT [facility] Hyaline Casts, UA 0-2 None Seen /LPF 06/01/2025 3:52 PM EDT [facility] Methodology Automated Microscopy 06/01/2025 3:52 PM EDT [facility] Urine Urine specimen obtained by clean catch procedure / Unknown Collection / Unknown 06/01/2025 3:06 PM EDT 06/01/2025 3:43 PM EDT Isiah Barkley MD URINE ORDERABLES Final Re sult [facility]
[address] [place] [address], * (ABNORMAL) Urinalysis With Microscopic If Indicated (No Culture) - Urine, Clean Catch (06/01/2025 3:06 PM EDT) Color, UA Yellow Yellow, Straw 06/01/2025 3:52 PM EDT [facility] Appearance, UA Clear Clear 06/01/2025 3:52 PM EDT [facility] pH, UA 6.0 5.0 - 8.0 06/01/2025 3:52 PM EDT [facility] Specific Reading, UA 1.023 1.005 - 1.030 06/01/2025 3:52 PM EDT [facility] Glucose, UA Negative Negative 06/01/2025 3:52 PM EDT [facility] Ketones, UA Negative Negative 06/01/2025 3:52 PM EDT [facility] Bilirubin, UA Negative Negative 06/01/2025 3:52 PM EDT [facility] Blood, UA Small (1+)(A) Negative 06/01/2025 3:52 PM EDT [facility] Protein, UA Negative Negative 06/01/2025 3:52 PM EDT [facility] Leuk Esterase, UA Negative Negative 06/01/2025 3:52 PM EDT [facility] Nitrite, UA Negative Negative 06/01/2025 3:52 PM EDT [facility] Urobilinogen, UA 1.0 E.U./dL 0.2 - 1.0 E.U./dL 06/01/2025 3:52 PM EDT [facility] Urine Urine specimen obtained by clean catch procedure / Unknown Collection / Unknown 06/01/2025 3:06 PM EDT 06/01/2025 3:43 PM EDT Isiah Barkley MD URINE ORDERABLES Final Re sult [facility]
[address] [place] [address], * CBC Auto Differential (06/01/2025 3:06 PM EDT) Only the most recent of2 resultswithin the time period is included. WBC 7.69 3.40 - 10.80 10*3/mm3 06/01/2025 3:31 PM EDT [facility] RBC 4.55 3.77 - 5.28 10*6/mm3 06/01/2025 3:31 PM EDT [facility] Hemoglobin 13.1 12.0 - 15.9 g/dL 06/01/2025 3:31 PM EDT [facility] Hematocrit 40.5 34.0 - 46.6 % 06/01/2025 3:31 PM EDT [facility] MCV 89.0 79.0 - 97.0 fL 06/01/2025 3:31 PM EDT [facility] MCH 28.8 26.6 - 33.0 pg 06/01/2025 3:31 PM EDT [facility] MCHC 32.3 31.5 - 35.7 g/dL 06/01/2025 3:31 PM EDT [facility] RDW 13.2 12.3 - 15.4 % 06/01/2025 3:31 PM [facility] RDW-SD 43.2 37.0 - 54.0 fl 06/01/2025 3:31 PM [facility] MPV 9.0 6.0 - 12.0 fL 06/01/2025 3:31 PM [facility] Platelets 318 140 - 450 10*3/mm3 06/01/2025 3:31 PM [facility] Neutrophil % 65.7 42.7 - 76.0 % 06/01/2025 3:31 PM [facility] Lymphocyte % 22.8 19.6 - 45.3 % 06/01/2025 3:31 PM [facility] Monocyte % 8.5 5.0 - 12.0 % 06/01/2025 3:31 PM [facility] Eosinophil % 1.8 0.3 - 6.2 % 06/01/2025 3:31 PM [facility] Basophil % 0.7 0.0 - 1.5 % 06/01/2025 3:31 PM [facility] Immature Grans % 0.5 0.0 - 0.5 % 06/01/2025 3:31 PM [facility] Neutrophils, Absolute 5.06 1.70 - 7.00 10*3/mm3 06/01/2025 3:31 PM [facility] Lymphocytes, Absolute 1.75 0.70 - 3.10 10*3/mm3 06/01/2025 3:31 PM [facility] Monocytes, Absolute 0.65 0.10 - 0.90 10*3/mm3 06/01/2025 3:31 PM [facility] Eosinophils, Absolute 0.14 0.00 - 0.40 10*3/mm3 06/01/2025 3:31 PM [facility] Basophils, Absolute 0.05 0.00 - 0.20 10*3/mm3 06/01/2025 3:31 PM [facility] Immature Grans, Absolute 0.04 0.00 - 0.05 10*3/mm3 06/01/2025 3:31 PM EDT [facility] nRBC 0.0 0.0 - 0.2 /100 WBC 06/01/2025 3:31 PM EDT [facility] Blood Venipuncture / Unknown 06/01/2025 3:06 PM EDT 06/01/2025 3:25 PM EDT Isiah Barkley MD LAB BLOOD ORDERABLES Kate l Result [facility]
[address] [place] [address], * Lavender Top (06/01/2025 3:06 PM EDT) Only the most recent of2 resultswithin the time period is included. Extra Tube hold for add-on 06/01/2025 3:32 PM EDT [facility] Comment:Auto resulted Blood Venipuncture / Unknown 06/01/2025 3:06 PM EDT 06/01/2025 3:25 PM EDT Isiah Barkley MD LAB BLOOD ORDER ONLY Kate l Result [facility]
[address] [place] [address], [place] [phone] * Light Blue Top (06/01/2025 3:06 PM EDT) Only the most recent of2 resultswithin the time period is included. Extra Tube Hold for add-ons. 06/01/2025 3:32 PM EDT [facility] Comment:Auto resulted Blood Venipuncture / Unknown 06/01/2025 3:06 PM EDT 06/01/2025 3:25 PM EDT Isiah Barkley MD LAB BLOOD ORDER ONLY Kate l Result Performing Organization Address City/[facility]/ZIP Co de Phone Number [facility]
[address] [place] [address], * High Sensitivity Troponin T (06/01/2025 3:06 PM EDT) HS Troponin T <6 <14 ng/L 06/01/2025 3:54 PM EDT [facility] Blood Venipuncture / Unknown 06/01/2025 3:06 PM EDT 06/01/2025 3:25 PM EDT [facility] - 06/01/2025 3:54 PM EDT High [...] ORDERABLES Kate l Result Performing Organization Address [facility] Co de Phone Number [facility]
[address] [place] [address], * hCG, Quantitative, (06/01/2025 3:06 PM EDT) Only the most recent of2 resultswithin the time period is included. HCG Quantitative <0.10 mIU/mL 06/01/20 3:58 PM EDT [facility] Blood Venipuncture / Unknown 06/01/2025 3:06 PM EDT 06/01/2025 3:25 PM EDT [facility] - 06/01/2025 3:58 PM EDT [...] MD LAB BLOOD ORDERABLES Kate l Result [facility]
[address] [place] [address], * Lipase (06/01/2025 3:06 PM EDT) [facility] Lipase 17 13 - 60 U/L 06/01/2025 3:50 PM EDT [facility] Blood Venipuncture / Unknown 06/01/2025 3:06 PM EDT 06/01/2025 3:25 PM EDT Isiah Barkley MD LAB BLOOD ORDERABLES Kate l Result [facility]
[address] [place] [address], * Comprehensive Metabolic Panel (06/01/2025 3:06 PM EDT) Only the most recent of2 resultswithin the time period is included. Glucose 88 65 - 99 mg/dL 06/01/2025 3:50 PM T [facility] BUN 9.5 6.0 - 20.0 mg/dL 06/01/2025 3:50 PM EDT [facility] Creatinine 0.71 0.57 - 1.00 mg/dL 06/01/2025 3:50 PM [facility] Sodium 140 136 - 145 mmol/L 06/01/2025 3:50 PM EDT [facility] Potassium 3.5 3.5 - 5.2 mmol/L 06/01/2025 3:50 PM EDT [facility] Chloride 103 98 - 107 mmol/L 06/01/2025 3:50 PM [facility] CO2 27.0 22.0 - 29.0 mmol/L 06/01/2025 3:50 PM [facility] Calcium 9.4 8.6 - 10.5 mg/dL 06/01/2025 3:50 PM [facility] Total Protein 7.7 6.0 - 8.5 g/dL 06/01/2025 3:50 PM [facility] Albumin 4.9 3.5 - 5.2 g/dL 06/01/2025 3:50 PM [facility] ALT (SGPT) 13 1 - 33 U/L 06/01/2025 3:50 PM [facility] AST (SGOT) 17 1 - 32 U/L 06/01/2025 3:50 PM T [facility] Alkaline Phosphatase 117 39 - 117 U/L 06/01/2025 3:50 PM [facility] Total Bilirubin 0.2 0.0 - 1.2 mg/dL 06/01/2025 3:50 PM [facility] Globulin 2.8 gm/dL 06/01/2025 3:50 PM [facility] Comment:Calculated Result A/G Ratio 1.8 g/dL 06/01/2025 3:50 PM T [facility] BUN/Creatinine Ratio 13.4 7.0 - 25.0 06/01/2025 3:50 PM EDT [facility] Anion Gap 10.0 5.0 - 15.0 mmol/L 06/01/2025 3:50 PM EDT [facility] eGFR 115.3 >60.0 mL/min/1.7 3 06/01/2025 3:50 PM EDT [facility] Blood Venipuncture / Unknown 06/01/2025 3:06 PM EDT 06/01/2025 3:25 PM EDT Narrative [facility] - 06/01/2025 3:50 PM EDT [...] MD LAB BLOOD ORDERABLES Kate faulkner Result [facility]
[address] [place] [address], * ECG 12 Lead Chest Pain (06/01/2025 [...] EDT) Case Report Surgical Pathology Report Case: [id number] Authorizing Provider: Aminata Nassar MD Collected: 05/17/2025 08:15 AM Ordering Location: [facility] Received: 05/17/2025 08:58 AM ENDO SUITES Pathologist: Seda Loredo MD Specimen: Gastric, Antrum, ANTRUM BXS 05/18/2025 12:47 PM EDT [facility] Clinical Information Hematemesis, unspecified whether nausea present 05/18/2025 12:47 PM EDT [facility] Final Diagnosis GASTRIC ANTRUM: Reactive gastropathy Negative for intestinal metaplasia, dysplasia, neoplasia, malignancy No Helicobacter like organisms identified on H and E 05/18/2025 12:47 PM EDT [facility] at 1247 EDT Gross Description 1. Gastric, Antrum. Received in formalin labeled antrum BXS is a 0.3 x 0.2 x 0.2 cm single murillo tissue fragment, submitted entirely in a single cassette. LDP 05/18/2025 12:47 PM EDT [facility] Microscopic Description The slides are reviewed and demonstrate histopathologic features supporting the above rendered diagnosis. 05/18/2025 12:47 PM EDT [facility] Tissue Pyloric antrum structure / Unknown 05/17/2025 8:15 AM EDT 05/17/2025 8:58 AM EDT Aminata Nassar MD PATHOLOGY/CYTOLOGY ORDERABLES Fi nal Result [facility]
[address] [place] [address], * BH AN ETT AIRWAY (05/17/2025 8:12 AM EDT) Narrative Marilee Gomez CRNA - 05/17/2025 8:12 AM EDT Marilee Gomez CRNA 05/17/2025 8:12 AM Airway Reason: elective Date/Time: 05/17/2025 8:10 AM Airway not difficult General Information and Staff Patient location during procedure: OR OCCUPATIONAL THERAPY SUPERVISOR/CAA: Marilee Gomez CRNA Indications and Patient Condition [...] bilaterally with symmetric chest rise and fall us Marilee Gomez CRNA ANESTHESIA ORDERABLES Final Re sult * Upper GI Endoscopy (05/17/2025 7:55 AM EDT) Aminata Nassar MD INTERFACE NEEDS Final Result * Type & Screen (05/15/2025 7:22 PM EDT) ABO Type O 05/15/2025 8:09 PM EDT [facility] RH type Positive 05/15/2025 8:09 PM EDT [facility] Antibody Screen Negative 05/15/2025 8:09 PM EDT [facility] T&S Expiration Date 05/18/2025 11:59:59 PM 05/15/2025 8:09 PM EDT [facility] Blood Venipuncture / Unknown 05/15/2025 7:22 PM EDT 05/15/2025 7:31 PM EDT Isiah Barkley MD BLOOD BANK TEST ORDERABLE S Edited Result - Final [facility]
[address] [place] [address], * Ethanol (05/15/2025 7:17 PM EDT) Ethanol <10 0 - 10 mg/dL 05/15/2025 7:45 PM EDT [facility] Blood Venipuncture / Unknown 05/15/2025 7:17 PM EDT 05/15/2025 7:24 PM EDT Narrative [facility] - 05/15/2025 7:45 PM EDT Not for legal purposes. Isiah Barkley MD LAB BLOOD ORDERABLES Kate l Result [facility]
[address] [place] [address], * Telemetry Scan (05/15/2025 6:40 PM EDT) [facility] ORDERABLES Final Result * Urine Drug Screen - Urine, Clean Catch (05/15/2025 6:03 PM EDT) THC, Screen, Urine Negative Negative 2024 6:37 PM EDT [facility] Phencyclidine (PCP), Urine Negative Negative 05/15/2025 6:37 PM EDT [facility] Cocaine Screen, Urine Negative Negative 05/15/2025 6:37 PM EDT [facility] Methamphetamine, Ur Negative Negative 05/15 6:37 PM EDT [facility] Opiate Screen Negative Negative 05/15/2025 6:37 PM EDT [facility] Amphetamine Screen, Urine Negative Negative 05/15/2025 6:37 PM EDT [facility] Benzodiazepine Screen, Urine Negative Negative 05/15/2025 6:37 PM EDT [facility] Tricyclic Antidepressants Screen Negative Negative 05/15/2025 6:37 PM EDT [facility] Methadone Screen, Urine Negative Negative 05/15/2025 6:37 PM EDT [facility] Barbiturates Screen, Urine Negative Negative 05/15/2025 6:37 PM EDT [facility] Oxycodone Screen, Urine Negative Negative 05/15/2025 6:37 PM EDT [facility] Buprenorphine, Screen, Urine Negative Negative 05/15/2025 6:37 PM EDT [facility] Urine Urine specimen obtained by clean catch procedure / Unknown Collection / Unknown 05/15/2025 6:03 PM EDT 05/15/2025 6:25 PM EDT Narrative [facility] - 05/15/2025 6:37 PM [...] ORDERABLES Final Re sult Performing Organization Address [facility] Co de Phone Number [facility]
[address] [place] [address], * Fentanyl, Urine - Urine, Clean Catch (05/15/2025 6:03 PM EDT) [facility] Signature Fentanyl, Urine Negative Negative 05/15/2025 7:17 PM EDT [facility] Urine Urine specimen obtained by clean catch procedure / Unknown Collection / Unknown 05/15/2025 6:03 PM EDT 05/15/2025 6:25 PM EDT [facility]ORATORY - 05/15/2025 7:17 PM EDT [...] ORDERABLES Final Re sult Performing Organization Address [facility] Co de Phone Number [facility]
[address] [place] [address], [place] [phone] * (ABNORMAL) Respiratory Panel PCR w/COVID-19(SARS-CoV-2) JESSICA/ANALIA/AFRICA/PAD/COR/MONICA In-House, ADJUSTER AND INSPECTOR Swab in UTM/VTM, 2 HR TAT - Swab, Nasopharynx (05/15/2025 6:02 PM EDT) [facility] ADENOVIRUS, PCR Not Detected Not Detected BIOFIRE TORCH 05/15/2025 7:22 PM EDT [facility] Coronavirus 229E Not Detected Not Detected BIOFIRE TOR 05/15/2025 7:22 PM EDT [facility] Coronavirus HKU1 Not Detected Not Detected BIOFIRE TOR 05/15/2025 7:22 PM EDT [facility] Coronavirus NL63 Not Detected Not Detected BIOFIRE TOR 05/15/2025 7:22 PM EDT [facility] Coronavirus OC43 Not Detected Not Detected [facility] 05/15/2025 7:22 PM EDT [facility] COVID19 Not Detected Not Detected - Ref. Range BIOFIRE TOR 05/15/2025 7:22 PM EDT [facility] Human Metapneumovirus Not Detected Not Detected [facility] 05/15/2025 7:22 PM EDT [facility] Human Rhinovirus/Enterov irus Detected(A) Not Detected [facility]IO[facility]RE [facility] 05/15/2025 7:22 PM EDT [facility] Influenza A PCR Not Detected Not Detected BIOFIRE TOR 05/15/2025 7:22 PM EDT [facility] Influenza B PCR Not Detected Not Detected BIOFIRE TOR 05/15/2025 7:22 PM EDT [facility] Parainfluenza Virus 1 Not Detected Not Detected BIOFIRE TOR 05/15/2025 7:22 PM EDT [facility] Parainfluenza Virus 2 Not Detected Not Detected BIOFIRE TOR 05/15/2025 7:22 PM EDT [facility] Parainfluenza Virus 3 Not Detected Not Detected BIOFIRE TORCH 05/15/2025 7:22 PM EDT [facility] Parainfluenza Virus 4 Not Detected Not Detected BIOFIRE TORCH 05/15/2025 7:22 PM EDT [facility] RSV, PCR Not Detected Not Detected BIOFIRE TOR 05/15/2025 7:22 PM EDT [facility] Bordetella pertussis pcr Not Detected Not Detected BIOFIRE TOR 05/15/2025 7:22 PM EDT [facility] Bordetella parapertussis PCR Not Detected Not Detected BIOFIRE TOR 05/15/2025 7:22 PM EDT [facility] Chlamydophila pneumoniae PCR Not Detected Not Detected [facility]IO[facility]RE [facility] 05/15/2025 7:22 PM EDT [facility] Mycoplasma pneumo by PCR Not Detected Not Detected [facility]IOFIRE [facility] 05/15/2025 7:22 PM EDT [facility] Swab Nasopharyngeal structure / Unknown Collection / Unknown 05/15/2025 6:02 PM EDT 05/15/2025 6:23 PM EDT [facility] - 05/15/2025 7:22 PM EDT [...] MICROBIOLOGY - GENERAL OR DERABLES Final Result [facility]
[address] [place] [address], * IMAGING SCANNED (04/06/2025) Anatomical Region Laterality Modality Radiographic Isabel ging Olivia Patel DO IMG DIAGNOSTIC IMAGING OR DERABLES Final Result * LABS SCANNED (03/27/2025) Olivia Patel LAB BLOOD ORDERABLES Kate l Result * Pap IG, HPV-hr (10/18/2020 2:06 PM EST) ThinPrep Vial Tash Jackson MD PATHOLOGY/CYTOLOGY ORDERABLES Fi nal Result [facility]
[address] [place] [address], [place] [phone] * Hepatitis C Antibody (10/17/2020 2:08 PM EST) Hepatitis C Ab Non-Reacti ve Non-Reacti ve 10/17/2020 7:29 PM EST [facility] Blood Venipuncture / Unknown 10/17/2020 2:08 PM EST 10/17/2020 2:08 PM EST Narrative [facility] - 10/17/2020 7:29 PM EST Results may be falsely decreased if patient taking Biotin. Tash Jackson MD LAB BLOOD ORDERABLES Final Resul t Performing Organization Address City/[facility]/ZIP Co de Phone Number [facility]
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 The last day before reporting a new confirmed COVID-19 would be 12/08/20. -Alida Banda RN 09/09/2020 12/25/2020 Insurance [facility] Advance Directives * CPR (Attempt [...] Of Support Discussed With: Patient Care Teams Customs Import Specialist Relationship Specialty Start Date End Date Michaela Sousa APRN [address] [place] [address] PCP - General Internal Medicine 09/04/24
== END 2025-06-21 23:59 | disposition home or self-care (01) ==
LOC: LAB.DROPOF 06-22 11:58
PROVIDERS: PCP Student in an Organized Health Care Education/Training Program; Visit Provider Student in an Organized Health Care Education/Training Program
DX: J06.9 Acute upper respiratory infection, unspecified (principal)
CPT/HCPCS: 87631

== ENCOUNTER 2025-06-22 14:19 | Outpatient (CLI) | payer OTHER, SELFPAY ==
--- OUTSIDE RECORDS SUMMARY | 2025-05-15 13:30 | XMS_ITS | Encounter Summary ---
[facility] Address [address] [place] [address] Care Team Providers Care Security Vehicle Patrol Officer Name Role Phone Michaela Sousa APRN Primary Care Provider + [phone] Reason for Referral * Diagnostic Medical (Routine) - Authorized Specialty Diagnoses / Procedures Referred By Contact Referred To Contact Gastroenterology Diagnoses Change in bowel habits Procedures NE OFFICE/OUTPATIENT NEW MODERATE MDM 45 MINUTES Leah Castillo APRN [address] [place] [address] Phone: tel: fax: [facility] [address] [place] [phone] Phone: tel: fax: Referral ID Status Reason Start Date Expiration Date Visits Requested Visits Authorized [id number] Authorized Specialty Services Required 05/15/2025 08/14/2026 1 [...] Description 05/15/2025 1:30 PM EDT Office Visit [facility] [address] [facility] [address] [place] [address] Leah Castillo, DECORATING SUPERVISOR [address] [facility] [address] [place] [id number] Hematemesis with nausea (Primary Dx); Change in bowel habits; Epigastric pain; Melena; Constipation, unspecified constipation type Social History Tobacco Use Types Packs/Day Years Used Date Smoking Tobacco: Never Passive Smoke Exposure: Never Smokeless Tobacco: Never Tobacco Cessation:Counseling Given: Not Answered Alcohol Use Standard Drinks/Week Comments No 0 (1 standard drink = 0.6 oz pur e alcohol) [facility] Utilities Answer Date Recorded In the past 12 months has e [employer], gas, oil, or water [employer] threatened to shut off services in your [...] Date Recorded Retired Total Score 0 05/07/2021 [facility] of Occupat ional Health - Occupational Stress [...] things needed for daily living? No 12/10/2024 [place] Depression Scale Answer Date Recorded [place] Depression Scale Total 2 12/22/2024 The thought [...] GED or equivalent No 12/10/2024 Preferred Language Mexican 12/10/2024 PHQ-2 Answer Date Recorded Patient Health [...] 1:12 PM EDT Charles bowser, Generic * [place] Suicide Severity Rating Scale (Screener/Recent Self-Report) Question [...] Liver - Underwent and tubal ligation at [facility]. - Two CT scans showed mild and moderate liver enlargement, respectively. 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 05/16/2025 Leah Castillo APRN [facility] Gastroenterology documented in this encounter Plan of Treatment Upcoming Encounters Date Type Department Care Team (Late st Contact Info) Description 10/31/2025 3:15 PM EST Office Visit [facility] [address] [facility] [address] [place] [phone] Aminata Nassar MD [address] [facility] [address] [place] [address] Scheduled Referrals Name Type Priority Associated Diagnoses [...] Indicated Resolved Time COVID (History) Comment:Per regional rib trim separator for [facility], 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 The last day before reporting a new confirmed COVID-19 would be 12/08/20. -Alida Banda RN 09/09/2020 12/25/2020 documented as of this encounter Care Teams Security Vehicle Patrol Officer Relationship Specialty Start Date End Date Michaela Sousa APRN [address] [place] [address] [facility] [id number] PCP - General Internal Medicine 09/04/24 documented as of this encounter
--- OUTSIDE RECORDS SUMMARY | 2025-05-15 18:23 | XMS_ITS | Encounter Summary ---
Author Organization [facility] Address [address] [place] [address] Care Team Providers Care Laundry Clerk Name Role Phone Sousa Michaela KING Primary Care Provider + [phone] Reason for Visit * Reason Comments Vomiting Blood Encounter Details Date Type Department Care Team (Late st Contact Info) Description 05/15/2025 6:23 PM EDT - 05/15/2025 10:34 PM EDT Emergency [facility] EMERGENCY DEPARTMENT [address] [place] [id number] Selene Lizarraga MD [address] [facility] [place] [address] Acute abdominal pain (Primary Dx); History of peptic ulcer disease; Nausea and vomiting in adult Discharge Disposition: Home or Self Care Social History Tobacco Use Types Packs/Day Years Used Date Smoking Tobacco: Never Passive Smoke Exposure: Never Smokeless Tobacco: Never Alcohol Use Standard Drinks/Week Comments No 0 (1 standard drink = 0.6 oz pur e alcohol) [facility] Utilities Answer Date Recorded In the past 12 months has [employer], gas, oil, or water [employer] threatened to shut off services in your [...] Date Recorded Retired Total Score 0 05/07/2021 [facility] - Occupational Stress Questionnaire Answer Date Recorded [...] things needed for daily living? No 12/10/2024 [place] Depression Scale Answer Date Recorded [place] Depression Scale Total 2 12/22/2024 The thought [...] GED or equivalent No 12/10/2024 Preferred Language Burkinan 12/10/2024 PHQ-2 Answer Date Recorded Patient Health [...] 05/15/2025 1:12 PM EDT Gabby Desai * [place] Suicide Severity Rating Scale (Screener/Recent Self-Report) Question [...] through Care Everywhere. * Abdominal Pain Adult (Burkinan) documented in this encounter Medications at Time [...] History: Diagnosis Date Abdominal pain Adrenal insufficiency (Aitkin's disease) Anemia Cancer Nodule found on thyroid [...] Description 10/31/2025 3:15 PM EST Office Visit [facility] GASTROENTEROLOGY [address] [facility] [address] [place] [phone] Aminata Nassar MD [address] [place] [address] documented as of this encounter Procedures Procedure [...] EDT RESPIRATORY PANEL PCR W/ COVID-19 (SARS-COV-2), MOLECULAR PHYSICIST SWAB IN UTM/VTP, 2 HR TAT STAT [...] MD 05/15/2025 9:38 PM EDT Workstation ID: [id number] Narrative 05/15/2025 9:[address] ABDOMEN [...] MD 05/15/2025 9:38 PM EDT Workstation ID: [id number] Selene Lizarraga MD IMG CT ORDERABLES Final R esult * Type & Screen (05/15/2025 7:22 PM EDT) ABO Type O 05/15/2025 8:09 PM EDT [facility] BB LABORATORY RH type Positive 05/15/2025 8:09 PM EDT [facility] Antibody Screen Negative 05/15/2025 8:09 PM EDT [facility] T&S Expiration Date 05/18/2025 11:59:59 PM 05/15/2025 8:09 PM EDT [facility] Blood Venipuncture / Unknown 05/15/2025 7:22 PM EDT 05/15/2025 7:31 PM EDT Selene Lizarraga MD BLOOD BANK TEST ORDERABLE S Edited Result - Final [facility]
[address] [place] [address], * hCG, Quantitative, (05/15/2025 7:17 PM EDT) HCG Quantitative <1.00 mIU/mL 05/15/20 7:43 PM EDT [facility] Blood Venipuncture / Unknown 05/15/2025 7:17 PM EDT 05/15/2025 7:24 PM EDT Narrative [facility] - 05/15/2025 7:43 [...] ORDERABLES Kate l Result Performing Organization Address City/[facility]/ZIP Co de Phone Number [facility]
[address] [place] [address], * Ethanol (05/15/2025 7:17 PM EDT) Ethanol <10 0 - 10 mg/dL 05/15/2025 7:45 PM EDT [facility] Blood Venipuncture / Unknown 05/15/2025 7:17 PM EDT 05/15/2025 7:24 PM EDT Narrative [facility] - 05/15/2025 7:45 PM EDT Not for legal purposes. Selene Lizarraga MD LAB BLOOD ORDERABLES Kate l Result [facility]
[address] [place] [address], * Black Top (05/15/2025 7:17 PM EDT) Extra Tube Hold for add-ons. 05/15/2025 7:31 PM EDT [facility] Comment:Auto resulted. Blood Venipuncture / Unknown 05/15/2025 7:17 PM EDT 05/15/2025 7:24 PM EDT Selene Lizarraga MD LAB BLOOD ORDER ONLY Kate l Result Performing Organization Address City/[facility]/ZIP Co de Phone Number [facility]
[address] [place] [address], [place] [phone] * Gold Top - SST (05/15/2025 7:17 PM EDT) Extra Tube Hold for add-ons. 05/15/2025 7:31 PM EDT [facility] Comment:Auto resulted. Blood Venipuncture / Unknown 05/15/2025 7:17 PM EDT 05/15/2025 7:24 PM EDT Selene Lizarraga MD LAB BLOOD ORDER ONLY Kate l Result Performing Organization Address [facility] Co de Phone Number [facility]
[address] [place] [address], [place] [phone] * Green Top (Gel) (05/15/2025 7:17 PM EDT) Extra Tube Hold for add-ons. 05/15/2025 7:31 PM EDT [facility] Comment:Auto resulted. Blood Venipuncture / Unknown 05/15/2025 7:17 PM EDT 05/15/2025 7:24 PM EDT Selene Lizarraga MD LAB BLOOD ORDER ONLY Kate l Result Performing Organization Address City/[facility]/ZIP Co de Phone Number [facility]
[address] [place] [address], [place] [phone] * (ABNORMAL) Comprehensive Metabolic Panel (05/15/2025 7:17 PM EDT) Glucose 107(H) 65 - 99 mg/dL 05/15/2025 7:45 PM EDT [facility] BUN 6.8 6.0 - 20.0 mg/dL 05/15/2025 7:45 PM EDT [facility] Creatinine 0.74 0.57 - 1.00 mg/dL 05/15/2025 7:45 PM T [facility] Sodium 139 136 - 145 mmol/L 05/15/2025 7:45 PM EDT [facility] Potassium 3.4(L) 3.5 - 5.2 mmol/L 05/15/2025 7:45 PM EDT [facility] Chloride 106 98 - 107 mmol/L 05/15[facility]2025 7:[facility] CO2 24.1 22.0 - 29.0 mmol/L 05/15/2025 7:45 [facility] Calcium 8.9 8.6 - 10.5 mg/dL 05/15/2025 7:45 [facility] Total Protein 7.3 6.0 - 8.5 g/dL 05/15/2025 7:45 PM [facility] Albumin 4.7 3.5 - 5.2 g/dL 05/15/2025 7:45 PM [facility] ALT (SGPT) 14 1 - 33 U/L 05/15/2025 7:45 PM [facility] AST (SGOT) 22 1 - 32 U/L 05/15/2025 7:45 PM [facility] Alkaline Phosphatase 95 39 - 117 U/L 05/15/2025 7:45 PM T [facility] Total Bilirubin 0.4 0.0 - 1.2 mg/dL 05/15/2025 7:45 PM EDT [facility] Globulin 2.6 gm/dL 05/15/2025 7:45 PM [facility] Comment:Calculated Result A/G Ratio 1.8 g/dL 05/15/2025 7:45 PM T [facility] BUN/Creatinine Ratio 9.2 7.0 - 25.0 05/15/2025 7:45 PM EDT [facility] Anion Gap 8.9 5.0 - 15.0 mmol/L 05/15/2025 7:45 PM EDT [facility] eGFR 109.7 >60.0 mL/min/1.7 3 05/15/2025 7:45 PM EDT [facility] Blood Venipuncture / Unknown 05/15/2025 7:17 PM EDT 05/15/2025 7:24 PM EDT [facility] - 05/15/2025 7:45 PM [...] MD LAB BLOOD ORDERABLES Kate faulkner Result [facility]
[address] [place] [address], * (ABNORMAL) CBC Auto Differential (05/15/2025 6:52 PM EDT) WBC 7.13 3.40 - 10.80 10*3/mm3 05/15/2025 6:57 PM EDT [facility] RBC 4.03 3.77 - 5.28 10*6/mm3 05/15/2025 6:57 PM EDT [facility] Hemoglobin 11.7(L) 12.0 - 15.9 g/dL 05/15/2025 6:57 PM EDT [facility] Hematocrit 35.5 34.0 - 46.6 % 05/15/2025 6:57 PM EDT [facility] MCV 88.1 79.0 - 97.0 fL 05/15/2025 6:57 PM EDT [facility] MCH 29.0 26.6 - 33.0 pg 05/15/2025 6:57 PM EDT [facility] MCHC 33.0 31.5 - 35.7 g/dL 05/15/2025 6:57 PM EDT [facility] RDW 13.5 12.3 - 15.4 % 05/15/2025 6:57 PM EDT [facility] RDW-SD 43.9 37.0 - 54.0 fl 05/15/2025 6:57 PM EDT [facility] MPV 9.4 6.0 - 12.0 fL 05/15/2025 6:57 PM EDT [facility] Platelets 264 140 - 450 10*3/mm3 05/15/2025 6:57 PM EDT [facility] Neutrophil % 68.2 42.7 - 76.0 % 05/15/2025 6:57 PM EDT [facility] Lymphocyte % 21.0 19.6 - 45.3 % 05/15/2025 6:57 PM EDT [facility] Monocyte % 7.0 5.0 - 12.0 % 05/15/2025 6:57 PM EDT [facility] Eosinophil % 2.7 0.3 - 6.2 % 05/15/2025 6:57 PM EDT [facility] Basophil % 0.7 0.0 - 1.5 % 05/15/2025 6:57 PM EDT [facility] Immature Grans % 0.4 0.0 - 0.5 % 05/15/2025 6:57 PM EDT [facility] Neutrophils, Absolute 4.86 1.70 - 7.00 10*3/mm3 05/15/2025 6:57 PM EDT [facility] Lymphocytes, Absolute 1.50 0.70 - 3.10 10*3/mm3 05/15/2025 6:57 [facility] Monocytes, Absolute 0.50 0.10 - 0.90 10*3/mm3 05/15/2025 6:57 PM EDT [facility] Eosinophils, Absolute 0.19 0.00 - 0.40 10*3/mm3 05/15/2025 6:57 PM EDT [facility] Basophils, Absolute 0.05 0.00 - 0.20 10*3/mm3 05/15/2025 6:57 PM EDT [facility] Immature Grans, Absolute 0.03 0.00 - 0.05 10*3/mm3 05/15/2025 6:57 PM EDT [facility] nRBC 0.0 0.0 - 0.2 /100 WBC 05/15/2025 6:57 PM EDT [facility] Blood Line / Unknown 05/15/2025 6: 52 PM EDT 05/15/2025 6:52 PM EDT Selene Lizarraga MD LAB BLOOD ORDERABLES Kate l Result [facility]
[address] [place] [address], [place] [phone] * Light Blue Top (05/15/2025 6:52 PM EDT) Extra Tube Hold for add-ons. 05/15/2025 7:01 PM EDT [facility] Comment:Auto resulted Blood Line / Unknown 05/15/2025 6: 52 PM EDT 05/15/2025 6:52 PM EDT Selene Lizarraga MD LAB BLOOD ORDER ONLY Kate l Result [facility]
[address] [place] [address], [place] [phone] * Lavender Top (05/15/2025 6:52 PM EDT) Extra Tube hold for add-on 05/15/2025 7:01 PM EDT [facility] Comment:Auto resulted Blood Line / Unknown 05/15/2025 6: 52 PM EDT 05/15/2025 6:52 PM EDT Selene Lizarraga MD LAB BLOOD ORDER ONLY Kate l Result Performing Organization Address City/[facility]/ZIP Co de Phone Number [facility]
[address] [place] [address], * Telemetry Scan (05/15/2025 6:40 PM EDT) [facility] Onbase ECG ORDERABLES Final Result * POC Urine (05/15/2025 6:11 PM EDT) [facility] HCG, Urine, QL Negative [facility] Lot Number [id number] [facility] Internal Positive Control Passed [facility] Internal Negative Control Passed [facility] Expiration Date 2026-09-13 [facility] Urine 05/15/2025 6:11 PM EDT Selene Lizarraga MD POINT OF CARE TEST ORDERA BLES Final Result Performing Organization Address City/[facility]/ZIP Co de Phone Number [facility]
[address] [place] [address], [place] [phone] * Fentanyl, Urine - Urine, Clean Catch (05/15/2025 6:03 PM EDT) Fentanyl, Urine Negative Negative 05/15/2025 7:17 PM EDT [facility] Urine Urine specimen obtained by clean catch procedure / Unknown Collection / Unknown 05/15/2025 6:03 PM EDT 05/15/2025 6:25 PM EDT Narrative [facility] - 05/15/2025 7:17 [...] Lizarraga MD URINE ORDERABLES Final Re sult [facility]
[address] [place] [address], * Urine Drug Screen - Urine, Clean Catch (05/15/2025 6:03 PM EDT) THC, Screen, Urine Negative Negative 2024 6:37 PM EDT [facility] Phencyclidine (PCP), Urine Negative Negative 05/15/2025 6:37 PM EDT [facility] Cocaine Screen, Urine Negative Negative 05/15/2025 6:37 PM EDT [facility] Methamphetamine, Ur Negative Negative 05/15 6:37 PM EDT [facility] Opiate Screen Negative Negative 05/15/2025 6:37 PM EDT [facility] Amphetamine Screen, Urine Negative Negative 05/15/2025 6:37 PM EDT [facility] Benzodiazepine Screen, Urine Negative Negative 05/15/2025 6:37 PM EDT [facility] Tricyclic Antidepressants Screen Negative Negative 05/15/2025 6:37 PM EDT [facility] Methadone Screen, Urine Negative Negative 05/15/2025 6:37 PM EDT [facility] Barbiturates Screen, Urine Negative Negative 05/15/2025 6:37 PM EDT [facility] Oxycodone Screen, Urine Negative Negative 05/15/2025 6:37 PM EDT [facility] Buprenorphine, Screen, Urine Negative Negative 05/15/2025 6:37 PM EDT [facility] Urine Urine specimen obtained by clean catch procedure / Unknown Collection / Unknown 05/15/2025 6:03 PM EDT 05/15/2025 6:25 PM EDT Narrative [facility] - 05/15/2025 6:37 [...] Lizarraga MD URINE ORDERABLES Final Re sult [facility]
[address] [place] [address], * (ABNORMAL) Respiratory Panel PCR w/COVID-19(SARS-CoV-2) JESSICA/ANALIA/AFRICA/PAD/COR/MONICA In-House, MOLECULAR PHYSICIST Swab in UTM/VTM, 2 HR TAT - Swab, Nasopharynx (05/15/2025 6:02 PM EDT) ADENOVIRUS, PCR Not Detected Not Detected BIOFIRE TORCH 05/15/2025 7:22 PM EDT [facility] Coronavirus 229E Not Detected Not Detected BIOFIRE TOR 05/15/2025 7:22 PM EDT [facility] Coronavirus HKU1 Not Detected Not Detected BIOFIRE TORCH 05/15/2025 7:22 PM EDT [facility] Coronavirus NL63 Not Detected Not Detected BIOFIRE TOR 05/15/2025 7:22 PM EDT [facility] Coronavirus OC43 Not Detected Not Detected BIOFIRE TORCH 05/15/2025 7:22 PM EDT [facility] COVID19 Not Detected Not Detected - Ref. Range BIOFIRE TORCH 05/15/2025 7:22 PM EDT [facility] Human Metapneumovirus Not Detected Not Detected BIOFIRE TOR 05/15/2025 7:22 PM EDT [facility] Human Rhinovirus/Enterov irus Detected(A) Not Detected BIOFIRE TOR 05/15/2025 7:22 PM EDT [facility] Influenza A PCR Not Detected Not Detected BIOFIRE TOR 05/15/2025 7:22 PM EDT [facility] Influenza B PCR Not Detected Not Detected BIOFIRE TOR 05/15/2025 7:22 PM EDT [facility] Parainfluenza Virus 1 Not Detected Not Detected BIOFIRE TOR 05/15/2025 7:22 PM EDT [facility] Parainfluenza Virus 2 Not Detected Not Detected BIOFIRE TOR 05/15/2025 7:22 PM EDT [facility] Parainfluenza Virus 3 Not Detected Not Detected BIOFIRE TOR 05/15/2025 7:22 PM EDT [facility] Parainfluenza Virus 4 Not Detected Not Detected BIOFIRE TOR 05/15/2025 7:22 PM EDT [facility] RSV, PCR Not Detected Not Detected BIOFIRE TOR 05/15/2025 7:22 PM EDT [facility] Bordetella pertussis pcr Not Detected Not Detected BIOFIRE TOR 05/15/2025 7:22 PM EDT [facility] Bordetella parapertussis PCR Not Detected Not Detected BIOFIRE TOR 05/15/2025 7:22 PM EDT [facility] Chlamydophila pneumoniae PCR Not Detected Not Detected BIOFIRE TOR 05/15/2025 7:22 PM EDT [facility] Mycoplasma pneumo by PCR Not Detected Not Detected BIOFIRE TOR 05/15/2025 7:22 PM EDT [facility] Swab Nasopharyngeal structure / Unknown Collection / Unknown 05/15/2025 6:02 PM EDT 05/15/2025 6:23 PM EDT Narrative [facility] - 05/15/2025 7:22 [...] MICROBIOLOGY - GENERAL OR DERABLES Final Result [facility]
[address] [place] [address], documented in this encounter Visit Diagnoses Diagnosis [...] Indicated Resolved Time COVID (History) Comment:Per regional statistical engineer for [employer] 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 The last day before reporting a new confirmed COVID-19 would be 12/08/20. -Alida Banda RN 09/09/2020 12/25/2020 COVID Screen (preop/placement) 05/15/2025 05/15/2025 05/15/2025 7:22 PM EDT Rhinovirus 05/15/2025 05/15/2025 06/14/2025 9:08 PM EDT documented as of this encounter Care Teams Laundry Clerk Relationship Specialty Start Date End Date Michaela Sousa APRN [facility] [place] [address] [place] [address] PCP - General Internal Medicine 09/04/24 documented as of this encounter
--- OUTSIDE RECORDS SUMMARY | 2025-05-17 06:38 | XMS_ITS | Encounter Summary ---
[facility] Organization [facility] Address [address] [place] [address] Care Team Providers Care Sheetmetal Patternmaker Name Role Phone SousaMichaela sheehan FERNANDO Primary Care Provider + [phone] Reason for Visit * Auth/Cert Specialty Diagnoses / Procedures Referred By Contac t Referred To Contact Diagnoses Hematemesis, unspecified whether nausea present Hematemesis, unspecified whether nausea present [K92.0] Procedures SD ESOPHAGOGASTRODUODENOSCOPY TRANSORAL DIAGNOSTIC ESOPHAGOGASTRODUODENOSCOPY Referral ID Status Reason Start Date Expiration Date Visits Re quested Visits Authorized 1 1 Encounter Details Date Type Department Care Team (Late st Contact Info) Description 05/17/2025 6:38 AM EDT - 05/17/2025 9:25 AM EDT Hospital Encounter [facility] ENDO SUITES [address] [place] [id number] Aminata Nassar MD 1720 [facility] [address] [place] [address] Hematemesis, unspecified whether nausea present Discharge Disposition: Home or Self Care Social History Tobacco Use Types Packs/Day Years Used Date Smoking Tobacco: Never Passive Smoke Exposure: Never Smokeless Tobacco: Never Alcohol Use Standard Drinks/Week Comments No 0 (1 standard drink = 0.6 oz pur e alcohol) [facility] Utilities Answer Date Recorded In the past 12 months has [employer] electric, gas, oil, or water company threatened [...] Date Recorded Retired Total Score 0 05/07/2021 [facility] - Occupational Stress Questionnaire Answer Date Recorded [...] things needed for daily living? No 12/10/2024 [place] Depression Scale Answer Date Recorded [place] Depression Scale Total 2 12/22/2024 The thought [...] GED or equivalent No 12/10/2024 Preferred Language Maltese 12/10/2024 PHQ-2 Answer Date Recorded Patient Health [...] Sign Reading Time Taken Comments Blood Pressure 117/77 05/17/2025 8:50 AM EDT Pulse 62 05/17/2025 8:55 AM EDT Temperature 36.4 C (97.5 F) 05/17/2025 9:00 AM EDT Respiratory Rate 21 05/17/2025 9:00 AM EDT Oxygen Saturation 100% 05/17/2025 9:00 AM EDT Inhaled Oxygen Concentration - - Weight 73 kg (161 lb) 05/17/2025 7:27 AM EDT Height 175.3 cm (5' 9 ) 05/17/2025 7:27 AM EDT Body Mass Index 23.78 05/17/2025 7:27 AM EDT documented in this encounter Functional Status * Question Answer Date of Assessment Author 1. Wish to be (Past 1 Month) No 025 7:21 AM EDT Vicki Martell RN 2. Non-Specific Active Suici genevieve Thoughts (Past 1 Month) No 05/17/2025 7:21 AM EDT Jarrell Martell si, DEEPAK * Calculated C-SSRS Risk Score (Lifetime/Recent) Answer Date of Assessment Author No Risk Indicated 05/17/2025 7:21 AM EDT Vicki Harrington RN * [place] Suicide Severity Rating Scale (Screener/Recent Self-Report) Question Answer Date of Assessment Author 6. Suicidal Behavior (Lifetime) No 7:21 AM EDT Vicki Martell RN documented as of this encounter Discharge Instructions * Attachments The following attachments cannot be sent through Care Everywhere. * General Anesthesia Adult Care After (Maltese) * Upper Endoscopy Adult Care After (Maltese) documented in this encounter Medications at Time of Discharge Co-Enzyme Q10 100 MG capsule Take 4 capsules by mouth. cyclobenzaprine (FLEXERIL) 10 MG tablet Take 1 tablet by mouth 3 times a day. 02/22/2025 docusate sodium 100 MG capsule Take 1 capsule by mouth 2 (Two) Times a Day As Needed for Constipation. 60 capsule 1 12/13/2024 10:53 AM EDT 12/13/2024 gabapentin (NEURONTIN) 300 MG capsule Take 1 capsule by mouth 2 (Two) Times a Day. polyethylene glycol (MIRALAX) 17 g packet Take [...] 08/03/2024 05/31/2025 documented as of this encounter H&P Notes * Aminata Nassar MD - 05/17/2025 8:01 AM EDT H&P updated. The patient was examined and the following changes are noted: went to ER and notedstill has had dark stool Source Note - Jonathan Leah GloriaFERNANDO - 05/15/2025 1:30 PM EDT Images from [...] Liver - Underwent and tubal ligation at [facility]. - Two CT scans showed mild and moderate liver enlargement, respectively. 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 Follow Up: No follow-ups on file. Plan of care reviewed with the patient at the conclusion of today's visit. Education was provided regarding diagnosis, management, and any prescribed or recommended OTC medications. Patient verbalized understanding of and agreement with management plan. NOTE TO PATIENT: The Cures Act makes medical notes like these [...] opinion of the practitioner. Patient or patient traffic workforce representative verbalized consent for the use of Ambient Listening during the visit with Leah Castillo APRN for chart documentation. 05/16/2025 Leah Castillo APRN [facility] [place] [place] Gastroenterology documented in this encounter Nursing Notes * Shasha Lou RN - 05/17/2025 9:15 AM EDT Marked improvement noted, no wheezing noted on auscultation. O2 saturation reman's 100 percent on room air. * Shasha Lou RN - 05/17/2025 9:00 AM EDT Patient with c/o throat congestion. On ausculatation bilateral expiratory wheeze noted. Dr. Michael aware, assessment completed at bedside. See MAR. Patient denies SOA. Room air saturation 100 percent with RR of 16-21. documented in this encounter Plan of Treatment Upcoming Encounters Date Type Department Care Team (Late st Contact Info) Description 10/31/2025 3:15 PM EST Office Visit [facility] [facility] [address] [place] [address] Aminata Nassar MD [address] [address] documented as of this encounter Procedures Procedure Name Priority Date/Time Associated Diagnosis Comments TISSUE PATHOLOGY EXAM Routine 05/17/2025 8:15 AM EDT Hematemesis, unspecified whether nausea present SD ESOPHAGOGASTRODUODENOSCOP Y TRANSORAL DIAGNOSTIC 05/17/2025 8:00 AM EDT Hematemesis, unspecified whether nausea present UPPER GI ENDOSCOPY 05/17/2025 7:55 AM EDT documented in this encounter Results * Tissue Pathology Exam (05/17/2025 8:15 AM EDT) Case Report Surgical Pathology Report Case: [id number] Authorizing Provider: Aminata Nassar MD Collected: 05/17/2025 08:15 AM Ordering Location: [facility] Received: 05/17/2025 08:58 AM ENDO SUITES Pathologist: Seda Loredo MD Specimen: Gastric, Antrum, ANTRUM BXS 05/18/2025 12:47 PM EDT [facility] Clinical Information Hematemesis, unspecified whether nausea present 05/18/2025 12:47 PM EDT [facility] Final Diagnosis GASTRIC ANTRUM: Reactive gastropathy Negative for intestinal metaplasia, dysplasia, neoplasia, malignancy No Helicobacter like organisms identified on H and E 05/18/2025 12:47 PM EDT [facility] at 1247 EDT Gross Description 1. Gastric, Antrum. Received in formalin labeled antrum BXS is a 0.3 x 0.2 x 0.2 cm single murillo tissue fragment, submitted entirely in a single cassette. LDP 05/18/2025 12:47 PM EDT [facility] Microscopic Description The slides are reviewed and demonstrate histopathologic features supporting the above rendered diagnosis. 05/18/2025 12:47 PM EDT [facility] Tissue Pyloric antrum structure / Unknown 05/17/2025 8:15 AM EDT 05/17/2025 8:58 AM EDT us Aminata Nassar MD PATHOLOGY/CYTOLOGY ORDERABLES Fi nal Result [facility]
[address] [place] [address], * Upper GI Endoscopy (05/17/2025 7:55 AM EDT) us Aminata Nassar MD INTERFACE NEEDS Final Result documented in this encounter Visit Diagnoses Diagnosis Hematemesis, unspecified whether nausea present documented in this encounter Admitting Diagnoses Diagnosis Hematemesis documented in this encounter Administered Medications Inactive Administered Medications - up to 3 most recent administrations Medication Order MAR Action Action Date Dose Rate Site ipratropium-albuterol (DUO-NEB) nebulizer solution 3 mL 3 mL, Nebulization, Once As Needed, Shortness of Air, Starting on Carolyn 05/17/25 at 0903, For 1 dose, Include Respiratory Treatment Education Given 05/17/2025 9:04 AM EDT 3 mL documented in this encounter Active and Recently Administered Medications Times are shown in EDT. PRN Medication Order 05/15/2025 05/16/2025 05/17/2025 ipratropium-albuterol (DUO-NEB) nebulizer solution 3 mL (COMPLETED) 3 mL, Nebulization, Once As Needed, Shortness of Air, Starting on Carolyn 05/17/25 at 0903, For 1 dose, Include Respiratory Treatment Education 0904 (Given - Provid er: Shasha Lou RN) documented in this encounter Additional Health Concerns Infection Onset Date Last Indicated Resolved Time COVID (History) Comment:Per regional customer care manager for [employer], 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 The last day before reporting a new confirmed COVID-19 would be 12/08/20. -Alida Banda RN 09/09/2020 12/25/2020 Rhinovirus 05/15/2025 05/15/2025 06/14/2025 9:08 PM EDT documented as of this encounter Care Teams Sheetmetal Patternmaker Relationship Specialty Start Date End Date Michaela Sousa APRN [facility] [address] [place] [address] PCP - General Internal Medicine 09/04/24 documented as of this encounter
--- OUTSIDE RECORDS SUMMARY | 2025-05-17 08:00 | XMS_ITS | Encounter Summary ---
Author Organization [facility] Address [address] [place] [address] Care Team Providers Care Test Hole Driller Name Role Phone Michaela Sousa FERNANDO Primary Care Provider + [phone] Reason for Visit * Auth/Cert Specialty Diagnoses / Procedures Referred By Contac t Referred To Contact Diagnoses Hematemesis, unspecified whether nausea present Hematemesis, unspecified whether nausea present [K92.0] Procedures [place] ESOPHAGOGASTRODUODENOSCOPY TRANSORAL DIAGNOSTIC ESOPHAGOGASTRODUODENOSCOPY Referral ID Status Reason Start Date Expiration Date Visits Re quested Visits Authorized 1 1 Encounter Details Date Type Department Care Team (Late st Contact Info) Description 05/17/2025 8:00 AM EDT Anesthesia Event [facility] ENDO SUITES [address] [place] [address] Bruno Michael MD [address] [place] [address] Anesthesia Record Procedure Summary Procedure Name Responsible Anesthesiologist Anesthesia Start Time Anesthesia Stop Time ESOPHAGOGASTRODUODENOSCOPY Bruno Michael MD 05/17/25 0800 05/17/25 0831 Events Date Time Event Comment 05/17/2025 0715 0800 An Start The patient was reevaluated immediately before moderate or deep sedation use and before anesthesia induction. 0801 AN Equip Check 0802 An Start Data 0808 An Induction 0810 An Intubation 0822 An Extubation 0824 an stop data 0831 Handoff to RN The following has been completed: 1. Identification of Patient, barrera family member(s) or patient surrogate 2. Identification of the responsible Practitioner (primary service) 3. Discussion of the pertinent/attainable medical history 4. Discussion of the surgical/procedure course (procedure, reason for surgery, procedure performed) 5. Intraoperative anesthetic management and issue/concerns to include things such as airway, hemodynamics, narcotic, sedation level and paralytic management and intravenous fluids/blood products and urine output during the procedure 6. Expectations/Plans for the early post-procedure period to include things such as anticipated course (anticipatory guidance), complications, need for laboratory or ECG and medication administration 7. Opportunity for questions and acknowledgment of understanding of report from the receiving PACU/ICU team 0831 An Stop Meds Name Total propofol 10 MG/ML 200 mg lidocaine PF 1% 1 % 50 mg Succinylcholine Chloride 200 MG/10ML 120 mg midazolam 2 MG/2ML 2 mg dexAMETHasone 4 MG/ML 8 mg ondansetron 2 mg/mL 4 mg lidocaine 4 % 1 each lactated ringers infusion 0 mL * Agents Name O2 N2O Air Sevoflurane Inspired Sevoflurane * Blood No blood administrations on file. Lines, Drains, and Airways Type Details Placement Removal Wound 12/10/24; 1325; N; anterior; abdomen 12/10/24 1325 by Jose Cruz Johns RN ETT Placement Date: 04/28 10/21; Placement Time: 809 (created via procedure documentation); Blade Size: 3; Location: Oral; Removal Date: 05/17/25; Removal Time: 82105/17/25 08 by Marilee Gomez CRNA 05/17/25 08 by Marilee Gomez CRNA documented in this encounter Social History Tobacco Use Types Packs/Day Years Used Date Smoking Tobacco: Never Passive Smoke Exposure: Never Smokeless Tobacco: Never Alcohol Use Standard Drinks/Week Comments No 0 (1 standard drink = 0.6 oz pur e alcohol) [facility] Utilities Answer Date Recorded In the past 12 months has [employer], oil, or water [employer] threatened to shut off services in your [...] Date Recorded Retired Total Score 0 05/07/2021 [facility] of Occupat ional [facility] - Occupational Stress Questionnaire Answer Date [...] things needed for daily living? No 12/10/2024 [place] Depression Scale Answer Date Recorded [place] Depression Scale Total 2 12/22/2024 The thought [...] GED or equivalent No 12/10/2024 Preferred Language Palauan 12/10/2024 PHQ-2 Answer Date Recorded Patient Health [...] PM EDT documented as of this encounter Functional Status * Question Answer [...] 7:21 AM EDT Vicki Harrington RN * [place] Suicide Severity Rating Scale (Screener/Recent Self-Report) Question Answer Date of Assessment Author 6. Suicidal Behavior (Lifetime) No 7:21 AM EDT Vicki Martell, DEEPAK documented as of this encounter OR Notes * Anesthesia Postprocedure Evaluation - Marilee Gomez CRNA - 05/17/2025 8:31 AM EDT Patient: Maia Kovacs Procedure Summary Date: 05/17/25 Room / Location: [facility] ENDOSCOPY 2 / [facility] ENDOSCOPY Anesthesia Start: 799 Anesthesia Stop: 830 Procedure: ESOPHAGOGASTRODUODENOSCOPY Diagnosis: Hematemesis, unspecified whether nausea present (Hematemesis, unspecified whether nausea present [K92.0]) Surgeons: Aminata Nassar MD Provider: Bruno Michael MD Anesthesia Type: general ASA Status: 2 Anesthesia Type: general Vitals No vitals data found for the desired time range. Post Anesthesia Care and Evaluation Patient location during evaluation: PACU Patient participation: waiting for patient participation Level of consciousness: sleepy but conscious Pain management: adequate Airway patency: patent Anesthetic complications: No anesthetic complications PONV Status: none Cardiovascular status: acceptable, hemodynamically stable and stable Respiratory status: acceptable, room air and oral airway Hydration status: acceptable * Anesthesia Procedure Notes - Marilee Gomez CRNA - 05/17/2025 8:12 AM EDT Associated Order(s): Airway Airway Reason: elective Date/Time: 05/17/2025 8:10 AM Airway not difficult General Information and Staff Patient location during procedure: OR OPERATING ROOM TECHNOLOGIST/CAA: Marilee Gomez CRNA Indications and Patient Condition Indications for airway management: airway protection Preoxygenated: yes MILS not maintained throughout Mask difficulty assessment: 0 - not attempted Final Airway Details Final airway type: endotracheal airway Successful airway: ETT Cuffed: yes Successful intubation technique: RSI and video laryngoscopy Adjuncts used in placement: intubating stylet Endotracheal tube insertion site: oral Blade: Escobedo Blade size: 3 ETT size (mm): 7.0 Cormack-Lehane Classification: grade I - full view of glottis Placement verified by: chest auscultation and capnometry Measured from: lips ETT/EBT to lips (cm): 20 Number of attempts at approach: 1 Assessment: lips, teeth, and gum same as pre-op and atraumatic intubation Additional Comments Negative epigastric sounds, Breath sound equal bilaterally with symmetric chest rise and fall * Anesthesia Preprocedure Evaluation - Bruno Michael MD - 05/17/2025 6:54 AM EDT Anesthesia Evaluation Patient summary reviewed and Nursing notes reviewed NPO Solid Status: > 8 hours NPO Liquid Status: > 2 hours Airway Mallampati: I TM distance: >3 FB Neck ROM: full No difficulty expected Dental Pulmonary (+) asthma, (-) shortness of breath, recent URI, sleep apnea, not a smoker, no home oxygen Cardiovascular ECG reviewed (+) hypertension (-) past [place], dysrhythmias, angina, cardiac stents ROS comment: ECG NSR ECHO 2020 EF 60% no significant valvular disease Neuro/Psych (+) headaches, psychiatric history (-) seizures, CVA GI/Hepatic/Renal/Endo (+) GERD, PUD, GI bleeding upper , liver disease (enzyme for ATP missing) history of elevated LFT (-) no renal disease, diabetes, no thyroid disorder Musculoskeletal 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 Plan discussed with OPERATING ROOM TECHNOLOGIST. CODE STATUS: documented in this encounter Plan of Treatment Upcoming Encounters Date Type Department Care Team (Late st Contact Info) Description 10/31/2025 3:15 PM EST Office Visit [facility] GASTRO[facility]OLOGY [address] [phone] Aminata Nassar MD [address] [address] documented as of this encounter Procedures Procedure Name Priority Date/Time Associated Diagnosis Comments ANESTHESIA INTUBATION Routine 05/17/2025 8:12 AM EDT documented in this encounter Results * BH AN ETT AIRWAY (05/17/2025 8:12 AM EDT) Narrative Marilee Gomez CRNA - 05/17/2025 8:12 AM EDT Marilee Gomez CRNA 05/17/2025 8:12 AM Airway Reason: elective Date/Time: 05/17/2025 8:10 AM Airway not difficult General Information and Staff Patient location during procedure: OR OPERATING ROOM TECHNOLOGIST/CAA: Marilee Gomez CRNA Indications and Patient Condition Indications for airway management: airway protection Preoxygenated: yes MILS not maintained throughout Mask difficulty assessment: 0 - not attempted Final Airway Details Final airway type: endotracheal airway Successful airway: ETT Cuffed: yes Successful intubation technique: RSI and video laryngoscopy Adjuncts used in placement: intubating stylet Endotracheal tube insertion site: oral Blade: Escobedo Blade size: 3 ETT size (mm): 7.0 Cormack-Lehane Classification: grade I - full view of glottis Placement verified by: chest auscultation and capnometry Measured from: lips ETT/EBT to lips (cm): 20 Number of attempts at approach: 1 Assessment: lips, teeth, and gum same as pre-op and atraumatic intubation Additional Comments Negative epigastric sounds, Breath sound equal bilaterally with symmetric chest rise and fall Marilee Gomez CRNA ANESTHESIA ORDERABLES Final Re sult documented in this encounter Visit Diagnoses Not on filedocumented in this encounter Administered Medications Inactive Administered Medications - up to 3 most recent administrations Medication Order MAR Action Action Date Dose Rate Site dexAMETHasone (DECADRON) injection Intravenous, As Needed, Starting on Carolyn 05/17/25 at 0815 Given 05/17/2025 8:15 AM EDT 8 mg lactated ringers infusion Intravenous, Continuous PRN, Starting on Carolyn 05/17/25 at 0802 New Bag 05/17/2025 8:02 AM EDT lidocaine (LTA KIT) 4 % laryngotracheal solution Topical, As Needed, Starting on Carolyn 05/17/25 at 0809 Given 05/17/2025 8:09 AM EDT 1 each lidocaine PF 1% (XYLOCAINE) injection Intravenous, As Needed, Starting on Carolyn 05/17/25 at 0808 Given 05/17/2025 8:08 AM EDT 50 mg midazolam (VERSED) injection Intravenous, As Needed, Starting on Carolyn 05/17/25 at 0800 Given 05/17/2025 8:00 AM EDT 2 mg ondansetron (ZOFRAN) injection Intravenous, As Needed, Starting on Carolyn 05/17/25 at 0815 Given 05/17/2025 8:15 AM EDT 4 mg propofol (DIPRIVAN) injection Intravenous, As Needed, Starting on Carolyn 05/17/25 at 0808 Given 05/17/2025 8:08 AM EDT 200 mg Succinylcholine Chloride (ANECTINE) injection Intravenous, As Needed, Starting on Carolyn 05/17/25 at 0808 Given 05/17/2025 8:08 AM EDT 120 mg documented in this encounter Additional Health Concerns Infection Onset Date Last Indicated Resolved Time COVID (History) Comment:Per regional certified nurses' aide for [facility] 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 The last day before reporting a new confirmed COVID-19 would be 12/08/20. -Alida Banda RN 09/09/2020 12/25/2020 Rhinovirus 05/15/2025 05/15/2025 06/14/2025 9:08 PM EDT documented as of this encounter Care Teams Test Hole Driller Relationship Specialty Start Date End Date Michaela Sousa APRN [address] [facility] [address] [place] [address] PCP - General Internal Medicine 09/04/24 documented as of this encounter
--- OUTSIDE RECORDS SUMMARY | 2025-05-17 08:00 | XMS_ITS | Encounter Summary ---
Author Organization [facility] Address [address] [place] [address] Care Team Providers Care Attending Physician Name Role Phone SousaMichaela sheehan FERNANDO Primary Care Provider + [phone] Reason for Visit * Auth/Cert Specialty Diagnoses / Procedures Referred By Contac t Referred To Contact Diagnoses Hematemesis, unspecified whether nausea present Hematemesis, unspecified whether nausea present [K92.0] Procedures [place] ESOPHAGOGASTRODUODENOSCOPY TRANSORAL DIAGNOSTIC ESOPHAGOGASTRODUODENOSCOPY Referral ID Status Reason Start Date Expiration Date Visits Re quested Visits Authorized 1 1 Encounter Details Date Type Department Care Team (Late st Contact Info) Description 05/17/2025 8:00 AM EDT - 05/17/2025 8:33 AM EDT Surgery [facility] [address] [place] [address] Aminata Nassar MD 1720 [facility] [address] [place] [address] ESOPHAGOGASTRODUODENOSCOPY [55356 (CPT )] Social History Tobacco Use Types Packs/Day Years Used Date Smoking Tobacco: Never Passive Smoke Exposure: Never Smokeless Tobacco: Never Alcohol Use Standard Drinks/Week Comments No 0 (1 standard drink = 0.6 oz pur e alcohol) [facility] Utilities Answer Date Recorded In the past 12 months has [employer] electric, gas, oil, or water company threatened [...] Score 0 05/07/2021 [facility] - Occupational Stress Questionnaire Answer Date [...] things needed for daily living? No 12/10/2024 [place] Depression Scale Answer Date Recorded [place] Depression Scale Total 2 12/22/2024 The thought [...] GED or equivalent No 12/10/2024 Preferred Language Anguillan 12/10/2024 PHQ-2 Answer Date Recorded Patient Health [...] Sign Reading Time Taken Comments Blood Pressure 122/80 05/17/2025 8:30 AM EDT Pulse 62 05/17/2025 8:30 AM EDT Temperature 36.2 C (97.2 F) 05/17/2025 8:30 AM EDT Respiratory Rate 21 05/17/2025 8:30 AM EDT Oxygen Saturation 100% 05/17/2025 8:30 AM EDT Inhaled Oxygen Concentration - - [...] 7:21 AM EDT Vicki Harrington RN * [place] Suicide Severity Rating Scale (Screener/Recent Self-Report) Question Answer Date of Assessment Author 6. Suicidal Behavior (Lifetime) No 7:21 AM EDT Vicki Martell RN documented as of this encounter Discharge Instructions * Attachments The following attachments cannot be sent through Care Everywhere. * General Anesthesia Adult Care After (Anguillan) * Upper Endoscopy Adult Care After (Anguillan) documented in this encounter Medications at Time [...] Liver - Underwent and tubal ligation at [facility]. - Two CT scans showed mild and moderate liver enlargement, respectively. 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 Patient or patient sales representative supervisor verbalized consent for the use of Ambient Listening during the visit with Leah Castillo APRN for chart documentation. 05/16/2025 Leah Castillo APRN [facility] Gastroenterology documented in this encounter Nursing Notes [...] Description 10/31/2025 3:15 PM EST Office Visit [facility] GASTR[facility] [address] [address] Aminata Nassar MD [address] [address] documented as of this encounter Procedures Procedure Name Priority Date/Time Associated Diagnosis Comments TISSUE PATHOLOGY EXAM Routine 05/17/2025 8:15 AM EDT Hematemesis, unspecified whether nausea present TN ESOPHAGOGASTRODUODENOSCOP Y TRANSORAL DIAGNOSTIC 05/17/2025 8:00 AM EDT Hematemesis, unspecified whether nausea present UPPER GI ENDOSCOPY 05/17/2025 7:55 AM EDT documented in this encounter Results * Tissue Pathology Exam (05/17/2025 8:15 AM EDT) Case Report Surgical Pathology Report Case: [id number] Authorizing Provider: Aminata Nassar MD Collected: 05/17/2025 08:15 AM Ordering Location: [facility] Received: 05/17/2025 08:58 AM ENDO SUITES Pathologist: Seda Loredo MD Specimen: Gastric, Antrum, ANTRUM BXS 05/18/2025 12:47 PM EDT [facility] Clinical Information Hematemesis, unspecified whether nausea present 05/18/2025 12:47 PM EDT [facility] Final Diagnosis GASTRIC ANTRUM: Reactive gastropathy Negative for intestinal metaplasia, dysplasia, neoplasia, malignancy No Helicobacter like organisms identified on H and E 05/18/2025 12:47 PM EDT [facility] at 1247 EDT Gross Description 1. Gastric, Antrum. Received in formalin labeled antrum BXS is a 0.3 x 0.2 x 0.2 cm single murillo tissue fragment, submitted entirely in a single cassette. LDP 05/18/2025 12:47 PM EDT [facility] Microscopic Description The slides are reviewed and demonstrate histopathologic features supporting the above rendered diagnosis. 05/18/2025 12:47 PM EDT [facility] Tissue Pyloric antrum structure / Unknown 05/17/2025 8:15 AM EDT 05/17/2025 8:58 AM EDT us Aminata Nassar MD PATHOLOGY/CYTOLOGY ORDERABLES Fi nal Result [facility]
[address] [place] [address], * Upper GI Endoscopy (05/17/2025 7:55 AM EDT) us Aminata Nassar MD INTERFACE NEEDS Final Result documented in this encounter Visit Diagnoses Diagnosis Hematemesis, unspecified whether nausea present Hematemesis, unspecified whether nausea present documented in [...] Indicated Resolved Time COVID (History) Comment:Per regional executive director of nursing for [employer], 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 The last day before reporting a new confirmed COVID-19 would be 12/08/20. -Alida Banda RN 09/09/2020 12/25/2020 Rhinovirus 05/15/2025 05/15/2025 06/14/2025 9:08 PM EDT documented as of this encounter Care Teams Attending Physician Relationship Specialty Start Date End Date Michaela Sousa APRN [facility] [place] [address] [place] [address] PCP - General Internal Medicine 09/04/24 documented as of this encounter
--- OUTSIDE RECORDS SUMMARY | 2025-06-01 15:38 | XMS_ITS | Encounter Summary ---
Author Organization [facility] Address [address] [place] [address] Care Team Providers Care Jet Inspector Name Role Phone SousaSoraidarebekah KING Primary Care Provider + [phone] Reason for Visit * Reason Comments Chest Pain Encounter Details Date Type Department Care Team (Late st Contact Info) Description 06/01/2025 3:38 PM EDT - 06/01/2025 7:10 PM EDT Emergency [facility] [address] [place] [phone] Isiah Barkley MD [address] [facility] [address] Chest pain, unspecified type (Primary Dx); Generalized abdominal pain; Chronic gastritis without bleeding, unspecified gastritis type Discharge Disposition: Home or Self Care Social History Tobacco Use Types Packs/Day Years Used Date Smoking Tobacco: Never Passive Smoke Exposure: Never Smokeless Tobacco: Never Alcohol Use Standard Drinks/Week Comments No 0 (1 standard drink = 0.6 oz pur e alcohol) [facility] Utilities Answer Date Recorded In the past 12 months has [employer], gas, oil, or water [employer] threatened to shut off services in your [...] Date Recorded Retired Total Score 0 05/07/2021 [facility] - Occupational Stress Questionnaire Answer [...] things needed for daily living? No 12/10/2024 Stafford Depression Scale Answer Date Recorded Stafford Depression Scale Total 2 12/22/2024 The thought [...] GED or equivalent No 12/10/2024 Preferred Language Chadian 12/10/2024 PHQ-2 Answer Date Recorded Patient Health [...] 6:18 PM EDT Jody Gauthier, DEEPAK * [place] Suicide Severity Rating Scale (Screener/Recent Self-Report) Question [...] sent through Care Everywhere. * Gastritis Adult (Chadian) * Nonspecific Chest Pain Adult [id number]-Nlyo (Chadian) * Abdominal Pain Adult Hpyg-ot-Nmxf (Chadian) documented in this encounter Medications at Time [...] History: Diagnosis Date Abdominal pain Adrenal insufficiency ([place]'s disease) Anemia Cholelithiasis Lap ignacia 2010 Elevated [...] Component Value Units Date/Time CBC & Differential [[id number]] (Normal) Collected: 06/01/25 150 Specimen: Blood Updated: 06/01/25 1531 Narrative: The following orders were created for panel order CBC & Differential. Procedure Abnormality Status --------- ------ CBC Auto Differential[[id number]] Normal Final result Please view results for these tests on the individual orders. Comprehensive Metabolic Panel [[id number]] Collected: 06/01/251505 Specimen: Blood Updated: 06/01/25 155 [...] not include race as a factor Lipase [[id number]] (Normal) Collected: 06/01/25 150 Specimen: Blood Updated: 06/01/25 1550 Lipase 17 U/L Urinalysis With Microscopic If Indicated (No Culture) - Urine, Clean Catch [[id number]] (Abnormal) Collected: 06/01/251505 Specimen: Urine, Clean Catch Updated: 06/01/251551 Color, UA Yellow Appearance, UA Clear pH, UA 6.0 Specific [place], UA 1.023 Glucose, UA Negative Ketones, UA Negative Bilirubin, UA Negative Blood, UA Small (1+) Protein, UA Negative Leuk Esterase, UA Negative Nitrite, UA Negative Urobilinogen, UA 1.0 E.U./dL hCG, Quantitative, [[id number]] Collected: 06/01/251505 Specimen: Blood Updated: 06/01/251557 HCG [...] - 58,176 mIU/mL High Sensitivity Troponin T [[id number]] (Normal) Collected: 06/01/251505 Specimen: Blood Updated: 06/01/251553 [...] an underlying chronic condition. CBC Auto Differential [[id number]] (Normal) Collected: 06/01/25 1506 Specimen: Blood Updated: [...] Urinalysis, Microscopic Only - Urine, Clean Catch [[id number]] (Abnormal) Collected: 06/01/25 1506 Specimen: Urine, Clean Catch Updated: 06/01/25 1552 RBC, UA 0-2 /HPF WBC, UA 0-2 /HPF Bacteria, UA None Seen /HPF Squamous Epithelial Cells, UA 3-6 /HPF Hyaline Casts, UA 0-2 /LPF Methodology Automated Microscopy POC Urine [[id number]] (Normal) Collected: 06/01/25 1509 Specimen: Urine Updated: 06/01/25 1510 HCG, Urine, QL Negative Lot Number [id number] Internal Positive Control Positive Internal Negative Control Negative Expiration Date 09/13/2026 High Sensitivity Troponin T 1Hr [[id number]] Collected: 06/01/25 1603 Specimen: Blood Updated: 06/01/25 [...] pain DDX gastritis, enteritis, pleurisy, pulmonary edema, MA, urinary tract infection, GI bleed Data Review/ [...] pain, less likely I also considered an MA. Labs were drawn and a CT scan [...] with a physician of their choice. [facility]UP [facility] [address] [facility] [address] If symptoms worsen LarsGabbyMichaela, LEG BREAKER [address] [facility] [address] [place] [address] Schedule an appointment as soon as possible [...] Description 10/31/2025 3:15 PM EST Office Visit [facility] [address] [phone] Aminata Nassar MD [address] [address] documented as of this encounter Procedures Procedure [...] EDT Workstation ID: [id number] Isiah Barkley MD [facility] ORDERABLES Final R esult * High Sensitivity Troponin T 1Hr (06/01/2025 4:03 PM EDT) HS Troponin T <6 <14 ng/L 06/01/2025 4:45 PM EDT [facility] Troponin T Numeric Delta 06/01/2025 4:45 PM EDT [facility] Comment:Unable to calculate. Blood Line / Unknown 06/01/2025 4: 03 PM EDT 06/01/2025 4:14 PM EDT Narrative [facility] - 06/01/2025 4:45 PM EDT High [...] MD LAB BLOOD ORDERABLES Kate l Result [facility]
[address] [place] [address], [place] [phone] * POC Urine (06/01/2025 3:09 PM EDT) Pathologist [facility] HCG, Urine, QL Negative [facility] Lot Number [id number] [facility] Internal Positive Control Positive [facility] Internal Negative Control Negative [facility] Expiration Date 09/13/2026 [facility] Urine 06/01/2025 3:09 PM EDT Isiah Barkley MD POINT OF CARE TEST ORDERA BLES Final Result [facility]
[address] [place] [address], * (ABNORMAL) Urinalysis, Microscopic Only - Urine, Clean Catch (06/01/2025 3:06 PM EDT) RBC, UA 0-2 None Seen, 0-2 /HPF 06/01/2025 3:52 PM EDT [facility] WBC, UA 0-2 None Seen, 0-2 /HPF 06/01/2025 3:52 PM EDT [facility] Bacteria, UA None Seen None Seen /HPF 06/01/2025 3:52 PM EDT [facility] Squamous Epithelial Cells, UA 3-6(A) None Seen, 0-2 /HPF 06/01/2025 3:52 PM EDT [facility] Hyaline Casts, UA 0-2 None Seen /LPF 06/01/2025 3:52 PM EDT [facility] Methodology Automated Microscopy 06/01/2025 3:52 PM EDT [facility] Urine Urine specimen obtained by clean catch procedure / Unknown Collection / Unknown 06/01/2025 3:06 PM EDT 06/01/2025 3:43 PM EDT Isiah Barkley MD URINE ORDERABLES Final Re sult [facility]
[address] [place] [address], * CBC Auto Differential (06/01/2025 3:06 PM EDT) WBC 7.69 3.40 - 10.80 10*3/mm3 06/01/2025 3:31 PM EDT [facility] RBC 4.55 3.77 - 5.28 10*6/mm3 06/01/2025 3:31 PM EDT [facility] Hemoglobin 13.1 12.0 - 15.9 g/dL 06/01/2025 3:31 PM EDT [facility] Hematocrit 40.5 34.0 - 46.6 % 06/01/2025 3:31 PM EDT [facility] MCV 89.0 79.0 - 97.0 fL 06/01/2025 3:31 PM EDT [facility] MCH 28.8 26.6 - 33.0 pg 06/01/2025 3:31 PM EDT [facility] MCHC 32.3 31.5 - 35.7 g/dL 06/01/2025 3:31 PM EDT [facility] RDW 13.2 12.3 - 15.4 % 06/01/2025 3:31 PM EDT [facility] RDW-SD 43.2 37.0 - 54.0 fl 06/01/2025 3:31 PM EDT [facility] MPV 9.0 6.0 - 12.0 fL 06/01/2025 3:31 PM EDT [facility] Platelets 318 140 - 450 10*3/mm3 06/01/2025 3:31 PM EDT [facility] Neutrophil % 65.7 42.7 - 76.0 % 06/01/2025 3:31 PM EDT [facility] Lymphocyte % 22.8 19.6 - 45.3 % 06/01/2025 3:31 PM EDT [facility] Monocyte % 8.5 5.0 - 12.0 % 06/01/2025 [facility] [address] [facility] Eosinophil % 1.8 0.3 - 6.2 % 06/01/2025 3:31 PM EDT [facility] Basophil % 0.7 0.0 - 1.5 % 06/01/2025 3:31 PM EDT [facility] Immature Grans % 0.5 0.0 - 0.5 % 06/01/2025 3:31 PM EDT [facility] Neutrophils, Absolute 5.06 1.70 - 7.00 10*3/mm3 06/01/2025 3:31 PM EDT [facility] Lymphocytes, Absolute 1.75 0.70 - 3.10 10*3/mm3 06/01/2025 3:31 PM EDT [facility] Monocytes, Absolute 0.65 0.10 - 0.90 10*3/mm3 06/01/2025 3:31 PM EDT [facility] Eosinophils, Absolute 0.14 0.00 - 0.40 10*3/mm3 06/01/2025 3:31 PM EDT [facility] Basophils, Absolute 0.05 0.00 - 0.20 10*3/mm3 06/01/2025 3:31 PM EDT [facility] Immature Grans, Absolute 0.04 0.00 - 0.05 10*3/mm3 06/01/2025 3:31 PM EDT [facility] nRBC 0.0 0.0 - 0.2 /100 WBC 06/01/2025 3:31 PM EDT [facility] Blood Venipuncture / Unknown 06/01/2025 3:06 PM EDT 06/01/2025 3:25 PM EDT Isiah Barkley MD LAB BLOOD ORDERABLES Kate l Result [facility]
[address] [place] [address], * Light Blue Top (06/01/2025 3:06 PM EDT) Extra Tube Hold for add-ons. 06/01/2025 3:32 PM EDT [facility] Comment:Auto resulted Blood Venipuncture / Unknown 06/01/2025 3:06 PM EDT 06/01/2025 3:25 PM EDT Isiah Barkley MD LAB BLOOD ORDER ONLY Kate l Result [facility]
[address] [place] [address], * Black Top (06/01/2025 3:06 PM EDT) Extra Tube Hold for add-ons. 06/01/2025 3:32 PM EDT [facility] Comment:Auto resulted. Blood Venipuncture / Unknown 06/01/2025 3:06 PM EDT 06/01/2025 3:25 PM EDT Isiah Barkley MD LAB BLOOD ORDER ONLY Kate l Result [facility]
[address] [place] [address], * Gold Top - SST (06/01/2025 3:06 PM EDT) Extra Tube Hold for add-ons. 06/01/2025 3:32 PM EDT [facility] Comment:Auto resulted. Blood Venipuncture / Unknown 06/01/2025 3:06 PM EDT 06/01/2025 3:25 PM EDT Isiah Barkley MD LAB BLOOD ORDER ONLY Kate l Result Performing Organization Address City/[facility]/ZIP Co de Phone Number [facility]
[address] [place] [address], [place] [phone] * Lavender Top (06/01/2025 3:06 PM EDT) Extra Tube hold for add-on 06/01/2025 3:32 PM EDT [facility] Comment:Auto resulted Blood Venipuncture / Unknown 06/01/2025 3:06 PM EDT 06/01/2025 3:25 PM EDT Isiah Barkley MD LAB BLOOD ORDER ONLY Kate l Result Performing Organization Address City/[facility]/ZIP Co de Phone Number [facility]
[address] [place] [address], * Green Top (Gel) (06/01/2025 3:06 PM EDT) Pathologist [facility] Extra Tube Hold for add-ons. 06/01/2025 3:32 PM EDT [facility] Comment:Auto resulted. Blood Venipuncture / Unknown 06/01/2025 3:06 PM EDT 06/01/2025 3:25 PM EDT Isiah Barkley MD LAB BLOOD ORDER ONLY Kate l Result Performing Organization Address [facility] Co de Phone Number [facility]
[address] [place] [address], * High Sensitivity Troponin T (06/01/2025 3:06 PM EDT) [facility] HS Troponin T <6 <14 ng/L 06/01/2025 3:54 PM EDT [facility] Blood Venipuncture / Unknown 06/01/2025 3:06 PM EDT 06/01/2025 3:25 PM EDT Narrative [facility] - 06/01/2025 3:54 PM EDT High [...] ORDERABLES Kate l Result Performing Organization Address [facility]/ZIP Co de Phone Number [facility]
[address] [place] [address], * hCG, Quantitative, (06/01/2025 3:06 PM EDT) [facility] HCG Quantitative <0.10 mIU/mL 06/01/20 3:58 PM EDT [facility] Blood Venipuncture / Unknown 06/01/2025 3:06 PM EDT 06/01/2025 3:25 PM EDT [facility] - 06/01/2025 3:58 PM EDT HCG [...] MD LAB BLOOD ORDERABLES Kate l Result [facility]
[address] [place] [address], * (ABNORMAL) Urinalysis With Microscopic If Indicated (No Culture) - Urine, Clean Catch (06/01/2025 3:06 PM EDT) Color, UA Yellow Yellow, Straw 06/01/2025 3:52 PM EDT [facility] Appearance, UA Clear Clear 06/01/2025 3:52 PM EDT [facility] pH, UA 6.0 5.0 - 8.0 06/01/2025 3:52 PM EDT [facility] Specific [place], UA 1.023 1.005 - 1.030 06/01/2025 3:52 PM EDT [facility] Glucose, UA Negative Negative 06/01/2025 3:52 PM EDT [facility] Ketones, UA Negative Negative 06/01/2025 3:52 PM EDT [facility] Bilirubin, UA Negative Negative 06/01/2025 3:52 PM EDT [facility] Blood, UA Small (1+)(A) Negative 06/01/2025 3:52 PM EDT [facility] Protein, UA Negative Negative 06/01/2025 3:52 PM EDT [facility] Leuk Esterase, UA Negative Negative 06/01/2025 3:52 PM EDT [facility] Nitrite, UA Negative Negative 06/01/2025 3:52 PM EDT [facility] Urobilinogen, UA 1.0 E.U./dL 0.2 - 1.0 E.U./dL 06/01/2025 3:52 PM EDT [facility] Urine Urine specimen obtained by clean catch procedure / Unknown Collection / Unknown 06/01/2025 3:06 PM EDT 06/01/2025 3:43 PM EDT Isiah Barkley MD URINE ORDERABLES Final Re sult [facility]
[address] [place] [address], * Lipase (06/01/2025 3:06 PM EDT) Lipase 17 13 - 60 U/L 06/01/2025 3:50 PM EDT [facility] Blood Venipuncture / Unknown 06/01/2025 3:06 PM EDT 06/01/2025 3:25 PM EDT Isiah Barkley MD LAB BLOOD ORDERABLES Kate l Result [facility]
[address] [place] [address], * Comprehensive Metabolic Panel (06/01/2025 3:06 PM EDT) Glucose 88 65 - 99 mg/dL 06/01/2025 3:50 PM EDT [facility] BUN 9.5 6.0 - 20.0 mg/dL 06/01/2025 3:50 PM EDT [facility] Creatinine 0.71 0.57 - 1.00 mg/dL 06/01/2025 3:50 PM EDT [facility] Sodium 140 136 - 145 mmol/L 06/01/2025 3:50 PM EDT [facility] Potassium 3.5 3.5 - 5.2 mmol/L 06/01/2025 3:50 PM EDT [facility] Chloride 103 98 - 107 mmol/L 06/01/2025 3:50 PM EDT [facility] CO2 27.0 22.0 - 29.0 mmol/L 06/01/2025 3:50 PM EDT [facility] Calcium 9.4 8.6 - 10.5 mg/dL 06/01/2025 3:50 PM EDT [facility] Total Protein 7.7 6.0 - 8.5 g/dL 06/01/2025 3:50 PM EDT [facility] Albumin 4.9 3.5 - 5.2 g/dL 06/01/2025 3:50 PM EDT [facility] ALT (SGPT) 13 1 - 33 U/L 06/01/2025 3:50 PM EDT [facility] AST (SGOT) 17 1 - 32 U/L 06/01/2025 3:50 PM EDT [facility] Alkaline Phosphatase 117 39 - 117 U/L 06/01/2025 3:50 PM EDT [facility] Total Bilirubin 0.2 0.0 - 1.2 mg/dL 06/01/2025 3:50 PM EDT [facility] Globulin 2.8 gm/dL 06/01/2025 3:50 PM EDT [facility] Comment:Calculated Result A/G Ratio 1.8 g/dL 06/01/2025 3:50 PM EDT [facility] BUN/Creatinine Ratio 13.4 7.0 - 25.0 06/01/2025 3:50 PM EDT [facility] Anion Gap 10.0 5.0 - 15.0 mmol/L 06/01/2025 3:50 PM EDT [facility] eGFR 115.3 >60.0 mL/min/1.7 3 06/01/2025 3:50 PM EDT [facility] Blood Venipuncture / Unknown 06/01/2025 3:06 PM EDT 06/01/2025 3:25 PM EDT [facility] - 06/01/2025 3:50 PM EDT GFR [...] MD LAB BLOOD ORDERABLES Kate lucie Result [facility]
[address] [place] [address], * ECG 12 Lead Chest Pain (06/01/2025 [...] to swallow. 1804 (Given - Provid er: oJdy Gauthier RN) sodium chloride 0.9 % bolus [...] Indicated Resolved Time COVID (History) Comment:Per regional box office agent for [facility] 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 The last day before reporting a new confirmed COVID-19 would be 12/08/20. -Alida Banda RN 09/09/2020 12/25/2020 Rhinovirus 05/15/2025 05/15/2025 06/14/2025 9:08 PM EDT documented as of this encounter Care Teams Jet Inspector Relationship Specialty Start Date End Date Michaela Sousa APRN [address] [address] [place] [address] PCP - General Internal Medicine 09/04/24 documented as of this encounter
--- NOTE | 2025-06-22 14:22 | XR_ITS ---
PROCEDURE INFORMATION: Exam: XR Chest Exam date and time: 06/22/2025 2:25 PM Age: 35 years old Clinical indication: Cough TECHNIQUE: Imaging protocol: Radiologic exam of the chest. Views: 2 views. COMPARISON: CT ANGIO CHEST 05/18/2025 1:48 PM FINDINGS: Lungs: Hyperexpanded lung reyna consistent with COPD. No consolidation. Pleural spaces: Unremarkable. No pleural effusion. No pneumothorax. Heart/Mediastinum: Unremarkable. No cardiomegaly. Bones/joints: Levoscoliosis of the thoracic spine IMPRESSION: No acute findings.
--- OUTSIDE RECORDS SUMMARY | 2025-06-22 14:22 | XMS_ITS | Encounter Summary ---
Author Organization [facility] Address [address] [place] [address] Care Team Providers Care Oil Expeller Name Role Phone Michaela Sousa APRN Primary Care Provider + [phone] Encounter Details Date Type Department Care Team (Latest Contact Info) Description 05/17/2025 Travel Social History Tobacco Use Types Packs/Day Years Used Date Smoking Tobacco: Never Passive Smoke Exposure: Never Smokeless Tobacco: Never Alcohol Use Standard Drinks/Week Comments No 0 (1 standard drink = 0.6 oz pur e alcohol) [facility] Utilities Answer Date Recorded In the past 12 months has [employer], gas, oil, or water company threatened to [...] Date Recorded Retired Total Score 0 05/07/2021 [facility] [place] of Occupat ional Health - Occupational Stress [...] things needed for daily living? No 12/10/2024 Primrose Depression Scale Answer Date Recorded Primrose Depression Scale Total 2 12/22/2024 The thought [...] 7:21 AM EDT Vicki Harrington RN * [place] Suicide Severity Rating Scale (Screener/Recent Self-Report) Question Answer Date of Assessment Author 6. 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 The last day before reporting a new confirmed COVID-19 would be 12/08/20. -Alida Banda RN 09/09/2020 12/25/2020 Rhinovirus 05/15/2025 05/15/2025 06/14/2025 9:08 PM EDT documented as of this encounter Care Teams Oil Expeller Relationship Specialty Start Date End Date Michaela Sousa APRN [address] [place] [address] PCP - General Internal Medicine 09/04/24 documented as of this encounter
--- OUTSIDE RECORDS SUMMARY | 2025-06-22 14:23 | XMS_ITS | Clinical Summary ---
Author Organization [employer] ([place], [place], [place], [place]) Address [address] [place] [address] Care Team Providers Care Service Planner Name Role Phone Unavailable Primary Care Provider [...] Date Tommie rded Speak language other than [place] Citizen at home Not on file 10/15/2023 Want [...] and Screening (12+) 11/11/2023 11/11/2022 COVID-19 VACCINE (3 - season) 05/28/202507/2021, 04/16/2021 Influenza Vaccine (#1) 2025 05/28/2013 Insurance BLUE CROSS/BLUE SHIELD Advance Directives For more information, please contact: [phone] * Full Code (Latest Code Status on File) Date Activated Date Inactivated Comments 11/11/2022 7:28 AM 11/11/2022 12:16 PM
--- OUTSIDE RECORDS SUMMARY | 2025-06-22 14:23 | XMS_ITS | Encounter Summary ---
Author Organization [facility] Address [address] [place] [address] Care Team Providers Care Pediatric Physician Name Role Phone Michaela Sousa APRN Primary Care Provider + [phone] Encounter Details Date Type Department Care Team (Latest Contact Info) Description 06/01/2025 Travel Social History Tobacco Use Types Packs/Day Years Used Date Smoking Tobacco: Never Passive Smoke Exposure: Never Smokeless Tobacco: Never Alcohol Use Standard Drinks/Week Comments No 0 (1 standard drink = 0.6 oz pur e alcohol) [facility] Utilities Answer Date Recorded In the past 12 months has [employer], gas, oil, or water company threatened to [...] Date Recorded Retired Total Score 0 05/07/2021 [facility] [place] of Occupat ional Health - Occupational Stress [...] things needed for daily living? No 12/10/2024 [place] Depression Scale Answer Date Recorded [place] Depression Scale Total 2 12/22/2024 The thought [...] 6:18 PM EDT Jody Gauthier, DEEPAK * [place] Suicide Severity Rating Scale (Screener/Recent Self-Report) Question [...] Description 10/31/2025 3:15 PM EST Office Visit [facility] GASTROENTEROLOGY [address] [phone] Aminata Nassar MD [address] [address] documented as of this encounter Visit Diagnoses Not on filedocumented in this encounter Additional Health Concerns Infection Onset Date Last Indicated Resolved Time COVID (History) Comment: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 The last day before reporting a new confirmed COVID-19 would be 12/08/20. -Alida Banda RN 09/09/2020 12/25/2020 Rhinovirus 05/15/2025 05/15/2025 06/14/2025 9:08 PM EDT documented as of this encounter Care Teams Pediatric Physician Relationship Specialty Start Date End Date Michaela Sousa APRN [address] [place] [address] PCP - General Internal Medicine 09/04/24 documented as of this encounter
--- OUTSIDE RECORDS SUMMARY | 2025-06-22 14:23 | XMS_ITS | Clinical Summary ---
Author Organization [facility] Address [facility] [address] [facility] [address] [place], [place] [address] Phone Care Team Providers Care Per Diem Clerk Name Role Phone Unavailable Primary Care Provider [...] a complete record from that organization. b ltxnore-C-irpsx acid (NEPHROCAP) 1 mg Oral Capsule Take [...] original. Care gap audit completed by Dianna eVla RN on 03/07/2021. Utilization audit completed by Dianna Vela RN on 11/08/2020. Upon review, this patient has utilized the ED 17 times in the past 12 months primarily for suspected Multiple Diagnoses.. Referred to CM. Problem Noted Date Diagnosed Date Disease of female genital organs 07/05/2020 Overview (07/05/2020): Added automatically from request for surgery [id number] Pelvic pain 07/05/2020 Overview (07/05/2020): Added automatically from request for surgery [id number] Scoliosis of thoracic spine 03/09/2019 S/P endometrial [...] Story LPN Medical Devices Implanted Type [employer] Division Manager Device Identifier Shelf Expiration Date Model / Serial / Lot Screw For Bridge Insurance [facility] CHOICE PLUS [facility] CHOICE PLUS [facility] CHOICE PLUS [facility] CHOICE PLUS [facility] CHOICE PLUS * Guarantor: Maia Kovacs Account Type Relation to Patient Date of Phone Billing Address [place] Personal Family Self Advance Directives For more information, please contact: [phone] * Full Code (Latest Code Status on [...]
--- OUTSIDE RECORDS SUMMARY | 2025-06-22 14:23 | XMS_ITS | Encounter Summary ---
Author Organization [place] [address] Care Team Providers Care Substation Operator Automatic Name Role Phone Radha Ordaz LPN Unavailable Unav ailable Encounter Details Date Type Department Care Team (Late st Contact Info) Description 11/02/2018 Lab Requisition [facility] [place] [address] Wendy Emerson MD [address] [place] [id number] Other specified abnormal findings of blood [...] 19.47 mcg/dL 9 5:29 PM EST [facility]REFERRED [employer] [employer] Blood VENOUS BLOOD / Unknown 11/02/2018 9:45 AM EST 11/02/2018 4:09 PM EST Narrative [facility] [employer] [employer] - 11/02/2018 5:29 PM EST Normal Peak : > 20 ug/dl Wendy Emerson MD CHEMISTRY ORDERABLES Fin al Result Performing Organization Address [facility] de Phone Number [facility] [address] [place] [address] , [place] [address] * CORTISOL 30 MINUTES (11/02/2018 9:15 AM EST) Cortisol 30 Min 17.48 mcg/dL 9 5:35 PM EST [facility] Blood VENOUS BLOOD / Unknown 11/02/2018 9:15 AM EST 11/02/2018 4:09 PM EST Narrative [facility] [employer] - 11/02/2018 5:35 PM EST Normal Peak : > 20 ug/dl Wendy Emerson MD CHEMISTRY ORDERABLES Fin al Result Performing Organization Address [facility] Phone Number [facility] [address] [facility] , [place] [address] * CORTISOL BASELINE (11/02/2018 8:40 AM EST) Cortisol Baseline 10.37 mcg/dL 11/02/2018 5:35 PM EST [facility] Blood VENOUS BLOOD / Unknown 11/02/2018 8:40 AM EST 11/02/2018 4:09 PM EST Narrative [facility] - 11/02/2018 5:35 PM EST Ingestion of jose doses of biotin (>5 mg/day) taken within 8 hours of drawing blood sample can interfere with this immunoassay test. Wendy Emerson MD CHEMISTRY ORDERABLES Fin al Result Performing Organization Address [facility] de Phone Number [employer] [facility] [address] [facility] , [place] [address] documented in this encounter Visit Diagnoses Diagnosis Other specified abnormal findings of blood chemistry documented in this encounter Additional Health Concerns Assessment Noted Time PHQ-9 Depression Total Score: 2 10/07/19 19 4:43 PM EST PHQ-2 Depression Total Score: 2 10/07/19 19 4:43 PM EST documented as of this encounter Care Teams Substation Operator Automatic Relationship Specialty Start Date End Date Radha Ordaz LPN Sizing Sponger Licensed Practical Nurse 03/15/20 04/02/20 documented as of this encounter
--- OUTSIDE RECORDS SUMMARY | 2025-06-22 14:23 | XMS_ITS | Encounter Summary ---
[facility] Organization [facility] Address [address] [place] [address] Care Team Providers Care Aircraft Engine Assembler Name Role Phone Michaela Sousa APRN Primary Care Provider + [phone] Reason for Visit * Reason Onset Date Comments Advice Only 05/18/2025 Encounter Details Date Type Department Care Team (Late st Contact Info) Description 05/18/2025 Telephone [facility] GASTR[facility]ENTEROLOGY [address] [phone] Aminata Nassar MD [address] [place] [address] Advice Only Social History Tobacco Use Types Packs/Day Years Used Date Smoking Tobacco: Never Passive Smoke Exposure: Never Smokeless Tobacco: Never Alcohol Use Standard Drinks/Week Comments No 0 (1 standard drink = 0.6 oz pur e alcohol) [facility] Utilities Answer Date Recorded In the past 12 months has [employer], gas, oil, or water [employer] threatened to shut off services in your [...] GED or equivalent No 12/10/2024 Preferred Language Citizen Of [place] 12/10/2024 PHQ-2 Answer Date Recorded Patient Health [...] can call us back in office at [phone] and or she may send us a message through [employer]. 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 The last day before reporting a new confirmed COVID-19 would be 12/08/20. -Alida Banda RN 09/09/2020 12/25/2020 Rhinovirus 05/15/2025 05/15/2025 06/14/2025 9:08 PM EDT documented as of this encounter Care Teams Aircraft Engine Assembler Relationship Specialty Start Date End Date Michaela Sousa APRN [address] [place] [address] PCP - General Internal Medicine 09/04/24 documented as of this encounter
--- OUTSIDE RECORDS SUMMARY | 2025-06-22 14:23 | XMS_ITS | Encounter Summary ---
[facility] Address [address] [place] [address] Care Team Providers Care Care Center Manager Name Role Phone Michaela Sousa APRN Primary Care Provider + [phone] Encounter Details Date Type Department Care Team (Late st Contact Info) Description 06/06/2025 Telephone [facility] GASTROENTEROLOGY [address] [phone] Aminata Nassar MD [address] [address] Social History Tobacco Use Types Packs/Day Years Used Date Smoking Tobacco: Never Passive Smoke Exposure: Never Smokeless Tobacco: Never Alcohol Use Standard Drinks/Week Comments No 0 (1 standard drink = 0.6 oz pur e alcohol) [facility] Utilities Answer Date Recorded In the past 12 months has [employer], [employer], oil, or water [employer] threatened to shut off services in your [...] Date Recorded Retired Total Score 0 05/07/2021 [facility] [place] of Occupat ional Health - Occupational Stress [...] things needed for daily living? No 12/10/2024 Verner Depression Scale Answer Date Recorded Verner Depression Scale Total 2 12/22/2024 The thought [...] GED or equivalent No 12/10/2024 Preferred Language [place] Islander 12/10/2024 PHQ-2 Answer Date Recorded Patient [...] her to be scheduled in July in [facility] for colon. She said July but I do not see it in [facility] she has been scheduled for this. 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 The last day before reporting a new confirmed COVID-19 would be 12/08/20. -Alida Banda RN 09/09/2020 12/25/2020 Rhinovirus 05/15/2025 05/15/2025 06/14/2025 9:08 PM EDT documented as of this encounter Care Teams Care Center Manager Relationship Specialty Start Date End Date Michaela Sousa APRN [address] [place] [address] [place] [address] PCP - General Internal Medicine 09/04/24 documented as of this encounter
--- OUTSIDE RECORDS SUMMARY | 2025-06-22 14:23 | XMS_ITS | Encounter Summary ---
Author Organization [facility] Address [address] [place] [address] Care Team Providers Care Director Organizational Name Role Phone Michaela Sousa APRN Primary Care Provider + [phone] Encounter Details Date Type Department Care Team (Late st Contact Info) Description 05/16/2025 Prep for Surgery [facility] ORDERS ONLY [address] [facility] [address] Aminata Nassar MD [address] [place] [facility] [address] [place] [address] Hematemesis, unspecified whether nausea present (Primary Dx) Social History Tobacco Use Types Packs/Day Years Used Date Smoking Tobacco: Never Passive Smoke Exposure: Never Smokeless Tobacco: Never Alcohol Use Standard Drinks/Week Comments No 0 (1 standard drink = 0.6 oz pur e alcohol) [facility] Utilities Answer Date Recorded In the past 12 months has [employer], [employer], oil, or water [employer] threatened to shut off services in your [...] Recorded Retired Total Score 0 05/07/2021 [facility] [place] of Occupat ional Health - Occupational Stress [...] things needed for daily living? 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 The last day before reporting a new confirmed COVID-19 would be 12/08/20. -Alida Banda RN 09/09/2020 12/25/2020 Rhinovirus 05/15/2025 05/15/2025 06/14/2025 9:08 PM EDT documented as of this encounter Care Teams Director Organizational Relationship Specialty Start Date End Date Michaela Sousa APRN [facility] [place] [address] PCP - General Internal Medicine 09/04/24 documented as of this encounter
--- OUTSIDE RECORDS SUMMARY | 2025-06-22 14:23 | XMS_ITS | Data Portability ---
Author Organization [place] BRIAN Hobbs RUSHFORD CLOSED Address [address] [facility] [address] [place] [address] Care Team Providers Care Panelboard Tank Pumper Name Role Phone MATTHEW RAMSEY Referring Provider Assessment No assessment recorded. Plan of Treatment Reminders Order Date Submit Date Provider Last Modified By Organization Details Last Modified Time Details Appointments NEW PATIENT 2024 01:10P M JULIA FOX MD Not available Not available Not available Lab urinalysi s panel, auto [address] [facility], [address] [place] [address], [address], [place], [address], 11/30/2022 17:16:25 Referral None recorded. Procedures None recorded. Surgeries None recorded. Imaging None recorded. Medication Orders hydrocodo ne 7.5 mg-acetam inophen 325 mg tablet [email or web address] [facility], [address] [place] [address] [address], [place], [place], [id number], 12/01/2022 23:16:21 Patient TargetsNo targets recorded. Patient InstructionsNo instructions recorded. Reason for Referral None Reported. Results Created Date Observation Date Name Description Value Unit Range Abnormal Flag Note LastModifiedBy Organization Detail LastModifiedTime 12/01/1911/30/2022 urina lysis panel , auto Unknown Analyte Clean Catch Not Available [facility] [address], [place], [address], 11/30/2022 15:52:30 12/01/19 23 11/30/2022 urina lysis panel , auto Unknown Analyte Yellow Not Available [facility] [address], [place], [address], 11/30/2022 15:52:30 12/01/19 23 11/30/2022 urina lysis panel , auto Unknown Analyte Clear Not Available [facility] [address], [place], [address], 11/30/2022 15:52:30 12/01/19 23 11/30/2022 urina lysis panel , auto Unknown Analyte 1.015 Not Available [facility] [address], [place], [address], 11/30/2022 15:52:30 12/01/19 23 11/30/2022 urina lysis panel , auto Unknown Analyte 7.0 Not Available [facility] [address], [place], [address], 11/30/2022 15:52:30 12/01/19 23 11/30/2022 urina lysis panel , auto Unknown Analyte Negati ve Not Available [facility] [address], [place], [address], 11/30/2022 15:52:30 12/01/19 23 11/30/2022 urina lysis panel , auto Unknown Analyte Negati ve Not Available [facility] [address], [place], [address], 11/30/2022 15:52:30 12/01/19 23 11/30/2022 urina lysis panel , auto Unknown Analyte Negati ve Not Available [facility] [address], [place], [address], 11/30/2022 15:52:30 12/01/19 23 11/30/2022 urina lysis panel , auto Unknown Analyte Normal Not Available [facility] [address], [place], [address], 11/30/2022 15:52:30 12/01/19 23 11/30/2022 urina lysis panel , auto Unknown Analyte Negati ve Not Available [facility] [address], [place], [address], 11/30/2022 15:52:30 12/01/19 23 11/30/2022 urina lysis panel , auto Unknown Analyte Normal Not Available [facility] [address], [place], [address], 11/30/2022 15:52:30 12/01/19 23 11/30/2022 urina lysis panel , auto Unknown Analyte Negati ve Not Available [facility] [address], [place], [address], 11/30/2022 15:52:30 12/01/19 23 11/30/2022 urina lysis panel , auto Unknown Analyte Negati ve Not Available [facility] [address], [place], [address], 11/30/2022 15:52:30 03/2512/18/2022 fluor oscop y (PROC ) No observ ation record ed. [id number] [facility] [address] [facility], [place], [address], 12/21/2022 21:32:21 Result Notes None recorded. Problems No Known Problems Medical Equipment None Reported. Allergies Allergen ID Allergen Name Allergen Category Reaction Reaction Severity Criticality Documentation Date Start Date Code Code System Note Provider Name and Address Organization Details Recorded Time 549355 Substance with sulfonami de structure and antibacte rial mechanism of action (substanc e) medicatio n Not available Not available Not available 11/30/2022 90427 8003 SNOMED Ann-Marie [facility] 15:51:45 451157 Non-stero idal anti-infl ammatory agent (substanc e) medicatio n Not available Not available Not available 11/30/2022 52356 5008 SNOMED [facility] 15:51:55 493886 Latex (substanc e) environme nt,medica tion Not available Not available Not available 11/30/2022 66230 8007 SNOMED Ann-Marie [facility] 15:52:01 Medications Name Sig Start Date [...] Address Organization Details Last Updated DateTime 11/30/2022 55349.82 g 22.9 kg/m2 175.26 cm Ann[facility]Marie [facility] 11/30/2022 15:51:26 Social History None recorded. Functional Status None recorded. Mental Status None recorded. Family History Nothing Reported. Medical History No medical history recorded. Gynecological HistoryNo gynecological history recorded. Obstetrics History GPAL:G 0 P 0 0 0 0 Past Encounters Encounter ID Performer Location Encounter Start Date Encounter Closed Date Diagnosis/Indication Diagnosis SNOMED-CT Code Diagnosis ICD10 Code Diagnosis IMO Codes Diagnosis Note [id number] MILDRED VIDES MD [facility] [address] [place] [address] 11/30/2022 15:19:19 11/30/2022 16:50:57 Urolithiasis 48718618 N20.9 arrange for above Health Concerns Section Related Observation LastModified by Organization Detai ls LastModified Time None Recorded Concern Status LastModified by Organization Details LastModified Time None Recorded Advance Directives Directive None Recorded Payers Insurance Date Sequence Insurance Name Policy Number Policy Interiano Covered Member ID Interiano Member ID Guarantor Name 02/23/2025 1 [facility] ([place] [id number] Maia Okmulgee [id number] Maia Okmulgee 06/22/2025 1 [facility] Maia Fermín [id number] Maia Okmulgee 02/23/2025 1 [facility] [id number] Maia Okmulgee [id number] Maia Okm[place]gee Notes Date Note Type Note Provider Name and Address Organization Details Recorded Time 11/30/2022 text/html Here for initial visit for urolithiasis. She passed a stone years ago but now has had right sided back pain and urgency for several weeks. She brought ct scan disc from [facility] for review. No hydro and two tiny 1mm stones in right kidney. The pain is sign. at times. We discussed cysto and right retrograde to assess for missed stone on ct scan. MILDRED VIDES MD [address] [place], [address], [facility] 12/01/2022 23:20:23 OBGyn Episode No OBEpisode recorded.
--- OUTSIDE RECORDS SUMMARY | 2025-06-22 14:23 | XMS_ITS | CCD ---
Author Name Interface, L1Whincmb lity Address [address] [place], [place] [id number] Organization [facility] Address [address] [place], [place] [id number] Care Team Providers Care Waste Handling Technician Name Role Phone Sukhjinder KAISER, Jens Purvis Unavailable Unavailable Reason for Visit Medications Problems Social History
--- OUTSIDE RECORDS SUMMARY | 2025-06-22 14:23 | XMS_ITS | Encounter Summary ---
Author Organization [place] [address] Care Team Providers Care Administrative Medical Director Name Role Phone Radha Ordaz LPN Unavailable Unav ailable Encounter Details Date Type Department Care Team (Late st Contact Info) Description 11/02/2018 Lab Requisition [facility] [place] [address] Wendy Emerson MD [address] [place] [address] Other specified abnormal findings of blood [...] HORMONE -REF LAB (11/02/2018 8:40 AM EST) [facility] ACTH 21 6 - 58 pg/mL 11/04/2018 2:20 PM EST [employer] Comment: INTERPRETIVE INFORMATION: Adrenocorticotropic Hormone Some types of synthetic ACTH are not detected by this assay. Access complete set of age- and/or gender-specific reference intervals for this test in the [facility] Test Directory ([facility]). Performed by [facility], [address] [place] [id number] [email or web address], Robert Restrepo MD, Lab. Director Blood VENOUS BLOOD / Unknown 11/02/2018 8:40 AM EST 11/02/2018 2:17 PM EST us Wendy Emerson MD CHEMISTRY ORDERABLES Fin al Result [facility] [address] [place] [address] documented in this encounter Visit Diagnoses Diagnosis Other specified abnormal findings of blood chemistry documented in this encounter Additional Health Concerns Assessment Noted Time PHQ-9 Depression Total Score: 2 10/07/19 19 4:43 PM EST PHQ-2 Depression Total Score: 2 10/07/19 19 4:43 PM EST documented as of this encounter Care Teams Administrative Medical Director Relationship Specialty Start Date End Date Radha Ordaz LPN Service Line Bus Cleaner Licensed Practical Nurse 03/15/20 04/02/20 documented as of this encounter
--- OUTSIDE RECORDS SUMMARY | 2025-06-22 14:23 | XMS_ITS | Encounter Summary ---
[facility] Organization [facility] Address [address] [place] [address] Care Team Providers Care Superintendent Name Role Phone Michaela Sousa APRN Primary Care Provider + [phone] Encounter Details Date Type Department Care Team (Late st Contact Info) Description 05/22/2025 Results Follow-Up [facility] [address] [place] [address] Aminata Nassar MD [address] [facility] [address] [place] [address] Social History Tobacco Use Types Packs/Day Years Used Date Smoking Tobacco: Never Passive Smoke Exposure: Never Smokeless Tobacco: Never Alcohol Use Standard Drinks/Week Comments No 0 (1 standard drink = 0.6 oz pur e alcohol) [facility] Utilities Answer Date Recorded In the past 12 months has [employer], gas, oil, or water [employer] threatened to shut off services in your [...] Date Recorded Retired Total Score 0 05/07/2021 [facility] of Occupat ional Health - Occupational Stress [...] things needed for daily living? No 12/10/2024 [place] Depression Scale Answer Date Recorded [place] Depression Scale Total 2 12/22/2024 The thought [...] GED or equivalent No 12/10/2024 Preferred Language Indonesian 12/10/2024 PHQ-2 Answer Date Recorded Patient Health [...] 05/23/2025 8:54 AM EDT Sent results to [employer] . documented in this encounter Plan of Treatment Upcoming Encounters Date Type Department Care Team (Late st Contact Info) Description 10/31/2025 3:15 PM EST Office Visit [facility] [address] [address] Aminata Nassar MD [address] [place] [id number] documented as of this encounter Visit Diagnoses Not on filedocumented in this encounter Additional Health Concerns Infection Onset Date Last Indicated Resolved Time COVID (History) Comment:[facility] 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 The last day before reporting a new confirmed COVID-19 would be 12/08/20. -Alida Banda RN 09/09/2020 12/25/2020 Rhinovirus 05/15/2025 05/15/2025 06/14/2025 9:08 PM EDT documented as of this encounter Care Teams Superintendent Relationship Specialty Start Date End Date Michaela Sousa APRN [address] [place] [address] PCP - General Internal Medicine 09/04/24 documented as of this encounter
--- OUTSIDE RECORDS SUMMARY | 2025-06-22 14:23 | XMS_ITS | Clinical Summary ---
Author Organization [facility] Address [address] [place] [address] Care Team Providers Care Billboard Mechanic Name Role Phone SousaMichaela sheehan Juani KING Primary Care Provider [phone] Allergies Active Allergy Reactions Criticality Noted Date [...] or split. 30 tablet 3 Active B Ylcqzdk-Zhwivq-FG (B Complete) tablet Active pantoprazole (ProtoNix) 20 [...] declined 02/25/2023 How often do you attend rastafari or shinto serv ices? Patient declined 02/25/2023 Do you belong to any clubs o r organizations such as rastafari groups, unions, fraternal or athletic groups, or [...] Recorded Patient Health Questionnaire-2 Score 4 03/01/2023 [facility] of Occupat ional Health - Occupational [...] place to sleep or slept in a detention (including now)? Patient refused 02/25/2023 PHQ-9 Answer [...] drink first t donovan in the morning (EYE-PATENT SEARCHER) to steady your nerves or to get [...] Vaccines (1 - 3-dose SCDM series) 2019 [id number] Vaccine (3 - Pfizer risk series) 06/04/2021 [...] Historical Provider LAB BLOOD ORDERABLES Final R YOLLEGE Performing Organization Address [facility] Co de Phone Number SUNQUEST * HIV 1 & 2 Antibody/Antigen Screen (12/18/2017 5:52 AM EDT) HIV 1 Result NONREACTIVE Screening for HIV 1 and 2 antibodies is NONREACTIVE. No confirmatory testing is required. SUNQUEST 12/18/2017 5:52 AM EDT 12/18/2017 6:28 AM EDT Historical Provider LAB BLOOD ORDERABLES Final R esult Performing Organization Address City/State/[facility] Co de Phone Number SUNQUEST from Last 3 Months or Most Recently Relevant to Health Maintenance Insurance ANDRES Care Teams Billboard Mechanic Relationship Specialty Start Date End Date Michaela Sousa APRN [address] [place] [address] PCP - General 07/24/21
--- OUTSIDE RECORDS SUMMARY | 2025-06-22 14:23 | XMS_ITS | Encounter Summary ---
Author Organization [facility] Address [address] [place] [address] Care Team Providers Care Neurosurgical Physician Assistant Name Role Phone Michaela Sousa APRN Primary Care Provider + [phone] Encounter Details Date Type Department Care Team (Latest Contact Info) Description 05/15/2025 Travel Social History Tobacco Use Types Packs/Day Years Used Date Smoking Tobacco: Never Passive Smoke Exposure: Never Smokeless Tobacco: Never Alcohol Use Standard Drinks/Week Comments No 0 (1 standard drink = 0.6 oz pur e alcohol) [facility] Utilities Answer Date Recorded In the past 12 months has [employer], gas, oil, or water company threatened to [...] Date Recorded Retired Total Score 0 05/07/2021 [facility] [place] of Occupat ional Health - Occupational Stress [...] things needed for daily living? No 12/10/2024 [place] Depression Scale Answer Date Recorded Edwards Depression Scale Total 2 12/22/2024 The thought [...] GED or equivalent No 12/10/2024 Preferred Language Maldivian 12/10/2024 PHQ-2 Answer Date Recorded Patient Health [...] 1:12 PM EDT Mycalison t, Generic * [place] Suicide Severity Rating Scale (Screener/Recent Self-Report) Question [...] Description 10/31/2025 3:15 PM EST Office Visit [facility] [address] [address] Aminata Nassar MD [address] [place] [address] documented as of this encounter Visit Diagnoses Not on filedocumented in this encounter Additional Health Concerns Infection Onset Date Last Indicated Resolved Time COVID (History) Comment:Per regional base engineer for [facility], 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 The last day before reporting a new confirmed COVID-19 would be 12/08/20. -Alida Banda RN 09/09/2020 12/25/2020 COVID Screen (preop/placement) 05/15/2025 05/15/2025 05/15/2025 7:22 PM EDT Rhinovirus 05/15/2025 05/15/2025 06/14/2025 9:08 PM EDT documented as of this encounter Care Teams Neurosurgical Physician Assistant Relationship Specialty Start Date End Date Michaela Sousa APRN [address] [place] [address] [facility] [address] PCP - General Internal Medicine 09/04/24 documented as of this encounter
--- OUTSIDE RECORDS SUMMARY | 2025-06-22 14:23 | XMS_ITS | Referral Summary ---
Author Organization [employer] ([place], [place], [place], [place]) Address [address] [place] [address] Care Team Providers Care Registered Nurse Bone Marrow Transplant Name Role Phone Unavailable Primary Care Provider [...] Date Tommie rded Speak language other than [place] at home Not on file 10/15/2023 Want [...] Advance Directives For more information, please contact: [phone] * Full Code (Latest Code Status on File) Date Activated Date Inactivated Comments 11/11/2022 7:28 AM 11/11/2022 12:16 PM
--- OUTSIDE RECORDS SUMMARY | 2025-06-22 14:23 | XMS_ITS | Encounter Summary ---
Author Organization [facility] Address [address] [place] [address] Care Team Providers Care Chalk Molding Machine Operator Name Role Phone SousaSoraidarebekah KING Primary Care Provider + [phone] Reason for Visit * Reason Onset Date Comments Med Refill 05/31/2025 Encounter Details Date Type Department Care Team (Late st Contact Info) Description 05/31/2025 Refill [facility] [address] [phone] Aminata Nassar MD [address] [place] [address] Hyperemesis gravidarum Social History Tobacco Use Types Packs/Day Years Used Date Smoking Tobacco: Never Passive Smoke Exposure: Never Smokeless Tobacco: Never Alcohol Use Standard Drinks/Week Comments No 0 (1 standard drink = 0.6 oz pur e alcohol) [facility] Utilities Answer Date Recorded In the past [address], gas, oil, or water [employer] threatened to shut off services in your [...] Date Recorded Retired Total Score 0 05/07/2021 [facility] of Occupat ional Health - [...] things needed for daily living? No 12/10/2024 [place] Depression Scale Answer Date Recorded [place] Depression Scale Total 2 12/22/2024 The [...] GED or equivalent No 12/10/2024 Preferred Language Mongolian 12/10/2024 PHQ-2 Answer Date Recorded Patient Health [...] 6:18 PM EDT Jody Gauthier, DEEPAK * [place] Suicide Severity Rating Scale (Screener/Recent Self-Report) Question [...] Description 10/31/2025 3:15 PM EST Office Visit [facility] [address] [address] Aminata Nassar MD [address] [address] documented as of this encounter Visit Diagnoses Diagnosis Hyperemesis gravidarum Mild hyperemesis gravidarum, unspecified as to episode of care documented in this encounter Additional Health Concerns Infection Onset Date Last Indicated Resolved Time COVID (History) Comment:Per regional kennel keeper for [facility], 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 The last day before reporting a new confirmed COVID-19 would be 12/08/20. -Alida Banda RN 09/09/2020 12/25/2020 Rhinovirus 05/15/2025 05/15/2025 06/14/2025 9:08 PM EDT documented as of this encounter Care Teams Chalk Molding Machine Operator Relationship Specialty Start Date End Date Michaela Sousa APRN [address] [place] [address] [facility] [address] PCP - General Internal Medicine 09/04/24 documented as of this encounter
--- OUTSIDE RECORDS SUMMARY | 2025-06-22 14:23 | XMS_ITS | Clinical Summary ---
Author Organization [facility] Address [address] [place] [address] Care Team Providers Care Book Or Script Editor Name Role Phone Nonstaff, Referring Primary Care Provider +1- [phone] Johnnie Shearer MD Unavailable [phone] Allergies Active Allergy Reactions Criticality Noted Date [...] 40 mg by mouth daily. Active Coenzyme U18-Rjzieul E 100-5 mg-unit Capsule Take 400 mg [...] Relation to Subscriber:Self Name:Maia Kovacs Payer ID:[id number] ([facility]) Type:PPO Address: [facility] [id number] [place] [id number] Care Teams Book Or Script Editor Relationship Specialty Start Date End Date Nonstaff, MD [place] [address] [place] [address] PCP - General 02/16/23 Johnnie Shearer MD [address] [place], [place] [id number] Gastroenterology 02/16/23
--- OUTSIDE RECORDS SUMMARY | 2025-06-22 14:23 | XMS_ITS | CCD ---
Author Name Interface, [id number] lity Address [address] [place], [place] [id number] Organization [facility] Address [address] [place], [place] [id number] Care Team Providers Care Director Life Sciences Name Role Phone Sukhjinder KAISER, Jens Purvis Unavailable Unavailable Reason for Visit Medications Problems Social History
--- OUTSIDE RECORDS SUMMARY | 2025-06-22 14:24 | XMS_ITS | Clinical Summary ---
Author Organization [facility] Address [address] [place] [address] Care Team Providers Care Building Services Technician Name Role Phone Lars Michaela KING Primary Care Provider + [phone] Allergies Active Allergy Reactions Criticality Noted Date [...] (09/28/2018): Added automatically from request for surgery [id number] RLQ abdominal pain 09/22/2018 Overview (09/28/2018): Added automatically from request for surgery [id number] B12 deficiency 09/22/2018 Overview (09/28/2018): Added automatically from request for surgery [id number] Chronic anemia 09/18/2018 Narcotic habituation, continuous 09/17/2018 Anxiety disorder 05/12/2018 Vocal cord dysfunction 05/10/2018 Stridor 2018 Respiratory distress 05/07/2018 Moderate persistent asthma with acute exacerbati on 05/07/2018 Chronic nausea 05/07/2018 Epigastric abdominal pain 05/07/2018 Overview (05/12/2018): Added automatically from request for surgery [id number] Generalized abdominal pain 12/09/2017 Resolved Problems Problem Noted Date Diagnosed Date Resolved Date ROM (rupture of membranes), premature 12/10/2024 12/10/2024 Hematemesis 05/16/2022 05/18/2022 uterine contractions in third trimester, antepartum 04/24/2021 05/17/2021 Decreased movement 02/05/2021 11/20/2020 05/17/2021 Overview (11/20/2020): cfDNA Acute dehydration 12/14/2019 10/16/2020 Influenza B 12/14/2019 10/16/2020 Drug-induced constipation 09/22/2018 Overview (09/28/2018): Added automatically from request for surgery [id number] Non-cardiac chest pain 09/17/201810/16 Hypokalemia 09/17/2018 09/19/2018 Hypomagnesemia 09/17/2018 09/19/2018 Leukocytosis 05/07/2018 05/12/2018 Elevated liver enzymes 02/27/201810/16 Intractable nausea and vomiting 02/27/2018 03/01/2018 Intractable cyclical vomiting with nausea 02/27/2018 03/01/2018 Encounters Date Type Department Care Team Description 5 Telephone [facility] GA[facility] [address] [address] Aminata Nassar MD 5 3:38 PM EDT - 5 7:10 PM EDT Emergency [facility] [address] [place] [address] Isiah Barkley MD Chest pain, unspecified type (Primary Dx); Generalized abdominal pain; Chronic gastritis without bleeding, unspecified gastritis type Discharge Disposition: Home or Self Care 5 Travel 5 Refill [facility] [address] [address] Aminata Nassar MD Hyperemesis gravidarum 5 Results Follow-Up [facility] [address] [place] [address] Aminata Nassar MD 5 Telephone [facility] [address] [address] Aminata Nassar MD Advice Only 5 8:00 AM EDT - 5 8:33 AM EDT Surgery [facility] [address] [place] [address] Aminata Nassar MD ESOPHAGOGASTRODUODENOSCOPY [73514 (CPT )] 5 8:00 AM EDT Anesthesia Event [facility] [address] [place] [address] Bruno Michael MD 5 6:38 AM EDT - 5 9:25 AM EDT Hospital Encounter [facility] [address] [place] [address] Aminata Nassar MD Hematemesis, unspecified whether nausea present Discharge Disposition: Home or Self Care 5 Travel 5 Prep for Surgery [facility] ORDERS ONLY [address] [place] [address] Aminata Nassar MD Hematemesis, unspecified whether nausea present (Primary Dx) 5 6:23 PM EDT - 5 10:34 PM EDT Emergency [facility] [address] [place] [address] Isiah Barkley MD Acute abdominal pain (Primary Dx); History of peptic ulcer disease; Nausea and vomiting in adult Discharge Disposition: Home or Self Care 5 1:30 PM EDT Office Visit [facility] MEDICAL [facility] GASTR[facility] [address] [facility] [address] [place] [address] Leah Castillo APRN Hematemesis with [...] drink = 0.6 oz pur e alcohol) [facility] Utilities Answer Date Recorded In the past [...] Date Recorded Retired Total Score 0 05/07/2021 [facility] of Occupat ional [facility] - Occupational Stress Questionnaire Answer Date [...] things needed for daily living? No 12/10/2024 Fischer Depression Scale Answer Date Recorded Fischer Depression Scale Total 2 12/22/2024 The thought [...] GED or equivalent No 12/10/2024 Preferred Language Nigerian 12/10/2024 PHQ-2 Answer Date Recorded Patient Health [...] Description 10/31/2025 3:15 PM EST Office Visit [facility] [address] [address] Aminata Nassar MD [address] [address] Health Maintenance Due Date Last Done Comments Annual Gynecologic Pelvic an d Breast Exam 1992 Pneumococcal Vaccine 0-49 (1 of 2 - PCV) 2011 TDAP/TD VACCINES (1 - Tdap) 2011 ANNUAL PHYSICAL 12/14/2017 PAP SMEAR 10/18/2023 10/18/2020 INFLUENZA VACCINE 04/27/2025 07/15/2023, , 06/07/2018, Additional history exists HEPATITIS C SCREENING Completed 10/17/2020 , 12/08/2018, 12/10/2017 Medical Devices Implanted Type Area Public Relations Sales Marketing Device Identifier Shelf Expiration Date Model / Serial / Lot Stnt Percuflx No Gw 4.8x26 - [id number] Implanted:Qty: 1 on 12/18/2022 by Raulito Lancaster MD at [facility] Stent Right: Urinary Bladder [employer] 08/19/2025 [id number] / / [id number] Procedures Procedure Name Priority Date/Time Associated Diagnosis [...] ANESTHESIA INTUBATION Routine 05/17/2025 8:12 AM EDT [place] ESOPHAGOGASTRODUODENOSCOP Y TRANSORAL DIAGNOSTIC 05/17/2025 8:00 AM [...] EDT RESPIRATORY PANEL PCR W/ COVID-19 (SARS-COV-2), SASH REPAIRER SWAB IN UTM/VTP, 2 HR TAT STAT [...] <6 <14 ng/L 06/01/2025 4:45 PM EDT [facility] Troponin T Numeric Delta 06/01/2025 4:45 PM EDT [facility] Comment:Unable to calculate. Blood Line / Unknown 06/01/2025 4: 03 PM EDT 06/01/2025 4:14 PM EDT [facility] - 06/01/2025 4:45 PM EDT [...] ORDERABLES Kate l Result Performing Organization Address City/[facility]/ZIP Co de Phone Number [facility]
[address] [place] [address], [place] [phone] * POC Urine (06/01/2025 3:09 PM EDT) Only the most recent of2 resultswithin the time period is included. HCG, Urine, QL Negative [facility] Lot Number [id number] [facility] Internal Positive Control Positive [facility] Internal Negative Control Negative [facility] Expiration Date 09/13/2026 [facility] Urine 06/01/2025 3:09 PM EDT Isiah Barkley MD POINT OF CARE TEST ORDERA BLES Final Result Performing Organization Address [facility] Co de Phone Number [facility]
[address] [place] [address], * Black Top (06/01/2025 3:06 PM EDT) Only the most recent of2 resultswithin the time period is included. Extra Tube Hold for add-ons. 06/01/2025 3:32 PM EDT [facility] Comment:Auto resulted. Blood Venipuncture / Unknown 06/01/2025 3:06 PM EDT 06/01/2025 3:25 PM EDT Isiah Barkley MD LAB BLOOD ORDER ONLY Kate l Result Performing Organization Address City/[facility]/ZIP Co de Phone Number [facility]
[address] [place] [address], [place] [phone] * Gold Top - SST (06/01/2025 3:06 PM EDT) Only the most recent of2 resultswithin the time period is included. Extra Tube Hold for add-ons. 06/01/2025 3:32 PM EDT [facility] Comment:Auto resulted. Blood Venipuncture / Unknown 06/01/2025 3:06 PM EDT 06/01/2025 3:25 PM EDT Isiah Barkley MD LAB BLOOD ORDER ONLY Kate l Result Performing Organization Address City/[facility]/ZIP Co de Phone Number [facility]
[address] [place] [address], * Green Top (Gel) (06/01/2025 3:06 PM EDT) Only the most recent of2 resultswithin the time period is included. Extra Tube Hold for add-ons. 06/01/2025 3:32 PM EDT [facility] Comment:Auto resulted. Blood Venipuncture / Unknown 06/01/2025 3:06 PM EDT 06/01/2025 3:25 PM EDT Isiah Barkley MD LAB BLOOD ORDER ONLY Kate l Result Performing Organization Address City/[facility]/ZIP Co de Phone Number [facility]
[address] [place] [address], * (ABNORMAL) Urinalysis, Microscopic Only - Urine, Clean Catch (06/01/2025 3:06 PM EDT) RBC, UA 0-2 None Seen, 0-2 /HPF 06/01/2025 3:52 PM EDT [facility] WBC, UA 0-2 None Seen, 0-2 /HPF 06/01/2025 3:52 PM EDT [facility] Bacteria, UA None Seen None Seen /HPF 06/01/2025 3:52 PM EDT [facility] Squamous Epithelial Cells, UA 3-6(A) None Seen, 0-2 /HPF 06/01/2025 3:52 PM EDT [facility] Hyaline Casts, UA 0-2 None Seen /LPF 06/01/2025 3:52 PM EDT [facility] Methodology Automated Microscopy 06/01/2025 3:52 PM EDT [facility] Urine Urine specimen obtained by clean catch procedure / Unknown Collection / Unknown 06/01/2025 3:06 PM EDT 06/01/2025 3:43 PM EDT Isiah Barkley MD URINE ORDERABLES Final Re sult [facility]
[address] [place] [address], * (ABNORMAL) Urinalysis With Microscopic If Indicated (No Culture) - Urine, Clean Catch (06/01/2025 3:06 PM EDT) Color, UA Yellow Yellow, Straw 06/01/2025 3:52 PM EDT [facility] Appearance, UA Clear Clear 06/01/2025 3:52 PM EDT [facility] pH, UA 6.0 5.0 - 8.0 06/01/2025 3:52 PM EDT [facility] Specific Corona, UA 1.023 1.005 - 1.030 06/01/2025 3:52 PM EDT [facility] Glucose, UA Negative Negative 06/01/2025 3:52 PM EDT [facility] Ketones, UA Negative Negative 06/01/2025 3:52 PM EDT [facility] Bilirubin, UA Negative Negative 06/01/2025 3:52 PM EDT [facility] Blood, UA Small (1+)(A) Negative 06/01/2025 3:52 PM EDT [facility] Protein, UA Negative Negative 06/01/2025 3:52 PM EDT [facility] Leuk Esterase, UA Negative Negative 06/01/2025 3:52 PM EDT [facility] Nitrite, UA Negative Negative 06/01/2025 3:52 PM EDT [facility] Urobilinogen, UA 1.0 E.U./dL 0.2 - 1.0 E.U./dL 06/01/2025 3:52 PM EDT [facility] Urine Urine specimen obtained by clean catch procedure / Unknown Collection / Unknown 06/01/2025 3:06 PM EDT 06/01/2025 3:43 PM EDT Isiah Barkley MD URINE ORDERABLES Final Re sult [facility]
[address] [place] [address], * CBC Auto Differential (06/01/2025 3:06 PM EDT) Only the most recent of2 resultswithin the time period is included. WBC 7.69 3.40 - 10.80 10*3/mm3 06/01/2025 3:31 PM EDT [facility] RBC 4.55 3.77 - 5.28 10*6/mm3 06/01/2025 3:31 PM EDT [facility] Hemoglobin 13.1 12.0 - 15.9 g/dL 06/01/2025 3:31 PM EDT [facility] Hematocrit 40.5 34.0 - 46.6 % 06/01/2025 3:31 PM EDT [facility] MCV 89.0 79.0 - 97.0 fL 06/01/2025 3:31 PM EDT [facility] MCH 28.8 26.6 - 33.0 pg 06/01/2025 3:31 PM EDT [facility] MCHC 32.3 31.5 - 35.7 g/dL 06/01/2025 3:31 PM EDT [facility] RDW 13.2 12.3 - 15.4 % 06/01/2025 3:31 PM [facility] RDW-SD 43.2 37.0 - 54.0 fl 06/01/2025 3:31 PM [facility] MPV 9.0 6.0 - 12.0 fL 06/01/2025 3:[facility] Platelets 318 140 - 450 10*3/mm3 06/01/2025 3:31 PM [facility] Neutrophil % 65.7 42.7 - 76.0 % 06/01/2025 3:31 PM [facility] Lymphocyte % 22.8 19.6 - 45.3 % 06/01/2025 3:31 PM [facility] Monocyte % 8.5 5.0 - 12.0 % 06/01/2025 3:31 PM [facility] Eosinophil % 1.8 0.3 - 6.2 % 06/01/2025 3:31 PM [facility] Basophil % 0.7 0.0 - 1.5 % 06/01/2025 3:31 PM [facility] Immature Grans % 0.5 0.0 - 0.5 % 06/01/2025 3:31 PM [facility] Neutrophils, Absolute 5.06 1.70 - 7.00 10*3/mm3 06/01/2025 3:31 PM [facility] Lymphocytes, Absolute 1.75 0.70 - 3.10 10*3/mm3 06/01/2025 3:31 PM [facility] Monocytes, Absolute 0.65 0.10 - 0.90 10*3/mm3 06/01/2025 3:31 PM [facility] Eosinophils, Absolute 0.14 0.00 - 0.40 10*3/mm3 06/01/2025 3:31 PM [facility] Basophils, Absolute 0.05 0.00 - 0.20 10*3/mm3 06/01/2025 3:31 PM [facility] Immature Grans, Absolute 0.04 0.00 - 0.05 10*3/mm3 06/01/2025 3:31 PM EDT [facility] nRBC 0.0 0.0 - 0.2 /100 WBC 06/01/2025 3:31 PM EDT [facility] Blood Venipuncture / Unknown 06/01/2025 3:06 PM EDT 06/01/2025 3:25 PM EDT Isiah Barkley MD LAB BLOOD ORDERABLES Kate l Result [facility]
[address] [place] [address], * Lavender Top (06/01/2025 3:06 PM EDT) Only the most recent of2 resultswithin the time period is included. Extra Tube hold for add-on 06/01/2025 3:32 PM EDT [facility] Comment:Auto resulted Blood Venipuncture / Unknown 06/01/2025 3:06 PM EDT 06/01/2025 3:25 PM EDT Isiah Barkley MD LAB BLOOD ORDER ONLY Kate l Result [facility]
[address] [place] [address], [place] [phone] * Light Blue Top (06/01/2025 3:06 PM EDT) Only the most recent of2 resultswithin the time period is included. Extra Tube Hold for add-ons. 06/01/2025 3:32 PM EDT [facility] Comment:Auto resulted Blood Venipuncture / Unknown 06/01/2025 3:06 PM EDT 06/01/2025 3:25 PM EDT Isiah Barkley MD LAB BLOOD ORDER ONLY Kate l Result Performing Organization Address City/[facility]/ZIP Co de Phone Number [facility]
[address] [place] [address], * High Sensitivity Troponin T (06/01/2025 3:06 PM EDT) HS Troponin T <6 <14 ng/L 06/01/2025 3:54 PM EDT [facility] Blood Venipuncture / Unknown 06/01/2025 3:06 PM EDT 06/01/2025 3:25 PM EDT [facility] - 06/01/2025 3:54 PM EDT [...] ORDERABLES Kate l Result Performing Organization Address [facility] Co de Phone Number [facility]
[address] [place] [address], * hCG, Quantitative, (06/01/2025 3:06 PM EDT) Only the most recent of2 resultswithin the time period is included. HCG Quantitative <0.10 mIU/mL 06/01/20 3:58 PM EDT [facility] Blood Venipuncture / Unknown 06/01/2025 3:06 PM EDT 06/01/2025 3:25 PM EDT [facility] - 06/01/2025 3:58 PM EDT [...] MD LAB BLOOD ORDERABLES Kate l Result [facility]
[address] [place] [address], * Lipase (06/01/2025 3:06 PM EDT) [facility] Lipase 17 13 - 60 U/L 06/01/2025 3:50 PM EDT [facility] Blood Venipuncture / Unknown 06/01/2025 3:06 PM EDT 06/01/2025 3:25 PM EDT Isiah Barkley MD LAB BLOOD ORDERABLES Kate l Result [facility]
[address] [place] [address], * Comprehensive Metabolic Panel (06/01/2025 3:06 PM EDT) Only the most recent of2 resultswithin the time period is included. Glucose 88 65 - 99 mg/dL 06/01/2025 3:50 PM T [facility] BUN 9.5 6.0 - 20.0 mg/dL 06/01/2025 3:50 PM EDT [facility] Creatinine 0.71 0.57 - 1.00 mg/dL 06/01/2025 3:50 PM [facility] Sodium 140 136 - 145 mmol/L 06/01/2025 3:50 PM EDT [facility] Potassium 3.5 3.5 - 5.2 mmol/L 06/01/2025 3:50 PM EDT [facility] Chloride 103 98 - 107 mmol/L 06/01/2025 3:50 [facility] CO2 27.0 22.0 - 29.0 mmol/L 06/01/2025 3:50 PM [facility] Calcium 9.4 8.6 - 10.5 mg/dL 06/01/2025 3:50 PM [facility] Total Protein 7.7 6.0 - 8.5 g/dL 06/01/2025 3:50 PM [facility] Albumin 4.9 3.5 - 5.2 g/dL 06/01/2025 3:50 PM [facility] ALT (SGPT) 13 1 - 33 U/L 06/01/2025 3:50 PM [facility] AST (SGOT) 17 1 - 32 U/L 06/01/2025 3:50 PM T [facility] Alkaline Phosphatase 117 39 - 117 U/L 06/01/2025 3:50 PM [facility] Total Bilirubin 0.2 0.0 - 1.2 mg/dL 06/01/2025 3:50 PM [facility] Globulin 2.8 gm/dL 06/01/2025 3:50 PM [facility] Comment:Calculated Result A/G Ratio 1.8 g/dL 06/01/2025 3:50 PM T [facility] BUN/Creatinine Ratio 13.4 7.0 - 25.0 06/01/2025 3:50 PM EDT [facility] Anion Gap 10.0 5.0 - 15.0 mmol/L 06/01/2025 3:50 PM EDT [facility] eGFR 115.3 >60.0 mL/min/1.7 3 06/01/2025 3:50 PM EDT [facility] Blood Venipuncture / Unknown 06/01/2025 3:06 PM EDT 06/01/2025 3:25 PM EDT Narrative [facility] - 06/01/2025 3:50 PM EDT GFR [...] MD LAB BLOOD ORDERABLES Kate faulkner Result [facility]
[address] [place] [address], * ECG 12 Lead Chest Pain (06/01/2025 [...] EDT) Case Report Surgical Pathology Report Case: [id number] Authorizing Provider: Aminata Nassar MD Collected: 05/17/2025 08:15 AM Ordering Location: [facility] Received: 05/17/2025 08:58 AM ENDO SUITES Pathologist: Seda Loredo MD Specimen: Gastric, Antrum, ANTRUM BXS 05/18/2025 12:47 PM EDT [facility] Clinical Information Hematemesis, unspecified whether nausea present 05/18/2025 12:47 PM EDT [facility] Final Diagnosis GASTRIC ANTRUM: Reactive gastropathy Negative for intestinal metaplasia, dysplasia, neoplasia, malignancy No Helicobacter like organisms identified on H and E 05/18/2025 12:47 PM EDT [facility] at 1247 EDT Gross Description 1. Gastric, Antrum. Received in formalin labeled antrum BXS is a 0.3 x 0.2 x 0.2 cm single murillo tissue fragment, submitted entirely in a single cassette. LDP 05/18/2025 12:47 PM EDT [facility] Microscopic Description The slides are reviewed and demonstrate histopathologic features supporting the above rendered diagnosis. 05/18/2025 12:47 PM EDT [facility] Tissue Pyloric antrum structure / Unknown 05/17/2025 8:15 AM EDT 05/17/2025 8:58 AM EDT Aminata Nassar MD PATHOLOGY/CYTOLOGY ORDERABLES Fi nal Result [facility]
[address] [place] [address], * BH AN ETT AIRWAY (05/17/2025 8:12 AM EDT) Narrative Marilee Gomez CRNA - 05/17/2025 8:12 AM EDT Marilee Gomez CRNA 05/17/2025 8:12 AM Airway Reason: elective Date/Time: 05/17/2025 8:10 AM Airway not difficult General Information and Staff Patient location during procedure: OR MANAGER ASSURANCE/CAA: Marilee Gomez CRNA Indications and Patient Condition [...] ABO Type O 05/15/2025 8:09 PM EDT [facility] RH type Positive 05/15/2025 8:09 PM EDT [facility] Antibody Screen Negative 05/15/2025 8:09 PM EDT [facility] T&S Expiration Date 05/18/2025 11:59:59 PM 05/15/2025 8:09 PM EDT [facility] Blood Venipuncture / Unknown 05/15/2025 7:22 PM EDT 05/15/2025 7:31 PM EDT Isiah Barkley MD BLOOD BANK TEST ORDERABLE S Edited Result - Final [facility]
[address] [place] [address], * Ethanol (05/15/2025 7:17 PM EDT) Ethanol <10 0 - 10 mg/dL 05/15/2025 7:45 PM EDT [facility] Blood Venipuncture / Unknown 05/15/2025 7:17 PM EDT 05/15/2025 7:24 PM EDT Narrative [facility] - 05/15/2025 7:45 PM EDT Not for legal purposes. Isiah Barkley MD LAB BLOOD ORDERABLES Kate l Result [facility]
[address] [place] [address], * Telemetry Scan (05/15/2025 6:40 PM EDT) [facility] ORDERABLES Final Result * Urine Drug Screen - Urine, Clean Catch (05/15/2025 6:03 PM EDT) THC, Screen, Urine Negative Negative 2024 6:37 PM EDT [facility] Phencyclidine (PCP), Urine Negative Negative 05/15/2025 6:37 PM EDT [facility] Cocaine Screen, Urine Negative Negative 05/15/2025 6:37 PM EDT [facility] Methamphetamine, Ur Negative Negative 05/15 6:37 PM EDT [facility] Opiate Screen Negative Negative 05/15/2025 6:37 PM EDT [facility] Amphetamine Screen, Urine Negative Negative 05/15/2025 6:37 PM EDT [facility] Benzodiazepine Screen, Urine Negative Negative 05/15/2025 6:37 PM EDT [facility] Tricyclic Antidepressants Screen Negative Negative 05/15/2025 6:37 PM EDT [facility] Methadone Screen, Urine Negative Negative 05/15/2025 6:37 PM EDT [facility] Barbiturates Screen, Urine Negative Negative 05/15/2025 6:37 PM EDT [facility] Oxycodone Screen, Urine Negative Negative 05/15/2025 6:37 PM EDT [facility] Buprenorphine, Screen, Urine Negative Negative 05/15/2025 6:37 PM EDT [facility] Urine Urine specimen obtained by clean catch procedure / Unknown Collection / Unknown 05/15/2025 6:03 PM EDT 05/15/2025 6:25 PM EDT Narrative [facility] - 05/15/2025 6:37 PM EDT Cutoff [...] ORDERABLES Final Re sult Performing Organization Address [facility] Co de Phone Number [facility]
[address] [place] [address], * Fentanyl, Urine - Urine, Clean Catch (05/15/2025 6:03 PM EDT) [facility] Signature Fentanyl, Urine Negative Negative 05/15/2025 7:17 PM EDT [facility] Urine Urine specimen obtained by clean catch procedure / Unknown Collection / Unknown 05/15/2025 6:03 PM EDT 05/15/2025 6:25 PM EDT [facility] - 05/15/2025 7:17 PM EDT [...] ORDERABLES Final Re sult Performing Organization Address [facility] Co de Phone Number [facility]
[address] [place] [address], [place] [phone] * (ABNORMAL) Respiratory Panel PCR w/COVID-19(SARS-CoV-2) JESSICA/ANALIA/[place]/PAD/COR/[place] In-House, SASH REPAIRER Swab in UTM/VTM, 2 HR TAT - Swab, Nasopharynx (05/15/2025 6:02 PM EDT) [facility] ADENOVIRUS, PCR Not Detected Not Detected BIOFIRE TORCH 05/15/2025 7:22 PM EDT [facility] Coronavirus 229E Not Detected Not Detected BIOFIRE TOR 05/15/2025 7:22 PM EDT [facility] Coronavirus HKU1 Not Detected Not Detected BIOFIRE TOR 05/15/2025 7:22 PM EDT [facility] Coronavirus NL63 Not Detected Not Detected BIOFIRE TOR 05/15/2025 7:22 PM EDT [facility] Coronavirus OC43 Not Detected Not Detected BIOFIRE [facility] 05/15/2025 7:22 PM EDT [facility] COVID19 Not Detected Not Detected - Ref. Range BIOFIRE TOR 05/15/2025 7:22 PM EDT [facility] Human Metapneumovirus Not Detected Not Detected [facility] 05/15/2025 7:22 PM EDT [facility] Human Rhinovirus/Enterov irus Detected(A) Not Detected [facility] 05/15/2025 7:22 PM EDT [facility] Influenza A PCR Not Detected Not Detected [facility] 05/15/2025 7:22 PM EDT [facility] Influenza B PCR Not Detected Not Detected [facility] 05/15/2025 7:22 PM EDT [facility] Parainfluenza Virus 1 Not Detected Not Detected [facility] 05/15/2025 7:22 PM EDT [facility] Parainfluenza Virus 2 Not Detected Not Detected [facility] 05/15/2025 7:22 PM EDT [facility] Parainfluenza Virus 3 Not Detected Not Detected [facility] 05/15/2025 7:22 PM EDT [facility] Parainfluenza Virus 4 Not Detected Not Detected [facility] 05/15/2025 7:22 PM EDT [facility] RSV, PCR Not Detected Not Detected [facility] 05/15/2025 7:22 PM EDT [facility] Bordetella pertussis pcr Not Detected Not Detected [facility] 05/15/2025 7:22 PM EDT [facility] Bordetella parapertussis PCR Not Detected Not Detected [facility] 05/15/2025 7:22 PM EDT [facility] Chlamydophila pneumoniae PCR Not Detected Not Detected [facility] 05/15/2025 7:22 PM EDT [facility] Mycoplasma pneumo by PCR Not Detected Not Detected [facility] 05/15/2025 7:22 PM EDT [facility] Swab Nasopharyngeal structure / Unknown Collection / Unknown 05/15/2025 6:02 PM EDT 05/15/2025 6:23 PM EDT [facility] - 05/15/2025 7:22 PM EDT [...] MICROBIOLOGY - GENERAL OR DERABLES Final Result [facility]
[address] [place] [address], * IMAGING SCANNED (04/06/2025) Anatomical Region Laterality Modality Radiographic Isabel ging Olivia Patel DO IMG DIAGNOSTIC IMAGING OR DERABLES Final Result * LABS SCANNED (03/27/2025) Olivia Patel LAB BLOOD ORDERABLES Kate l Result * Pap IG, HPV-hr (10/18/2020 2:06 PM EST) ThinPrep Vial Tash Jackson MD PATHOLOGY/CYTOLOGY ORDERABLES Fi nal Result [facility]
[address] [place] [address], [place] [phone] * Hepatitis C Antibody (10/17/2020 2:08 PM EST) Hepatitis C Ab Non-Reacti ve Non-Reacti ve 10/17/2020 7:29 PM EST [facility] Blood Venipuncture / Unknown 10/17/2020 2:08 PM EST 10/17/2020 2:08 PM EST Narrative [facility] - 10/17/2020 7:29 PM EST Results may be falsely decreased if patient taking Biotin. Tash Jackson MD LAB BLOOD ORDERABLES Final Resul t Performing Organization Address City/[facility]/ZIP Co de Phone Number [facility]
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 The last day before reporting a new confirmed COVID-19 would be 12/08/20. -Alida Banda RN 09/09/2020 12/25/2020 Insurance [facility] Advance Directives * CPR (Attempt [...] Of Support Discussed With: Patient Care Teams Building Services Technician Relationship Specialty Start Date End Date Michaela Sousa APRN [address] [place] [address] PCP - General Internal Medicine 09/04/24
--- OUTSIDE RECORDS SUMMARY | 2025-06-22 14:24 | XMS_ITS | Clinical Summary ---
Author Organization [facility] Address [address], [address] [place] [address] Care Team Providers Care Customer Support Coordinator Name Role Phone Carmen Juan APRN - [...] on file Medical Devices Implanted Type Area Fisher Sponge Hooking Device Identifier Shelf Expiration Date Model / Serial / Lot Jaw Screw Screw/Pl ate/Nail /Alban Left: Mandible Description:MRI compatible Insurance [facility] [id number] Advance Directives * Full Code (Latest Code Status on File) Date Activated Date Inactivated Comments 12/10/2018 3:14 AM 12/10/2018 9:58 PM * Full Code Date Activated Date Inactivated Comments 10/08/2018 12:42 AM 10/09/2018 3:48 PM Care Teams Customer Support Coordinator Relationship Specialty Start Date End Date Carmen Juan APRN - NP [facility] [address] [place] [address] PCP - General 07/22/20
== END 2025-06-22 23:59 | disposition home or self-care (01) ==
LOC: RAD 14:20
PROVIDERS: PCP Nurse Practitioner Family; Visit Provider Student in an Organized Health Care Education/Training Program
DX: R05.9 Cough, unspecified (principal)
CPT/HCPCS: 71046

== ENCOUNTER 2025-07-11 17:42 | Emergency (ER) | payer OTHER, SELFPAY ==
--- OUTSIDE RECORDS SUMMARY | 2020-07-18 05:23 | XMS_ITS | Continuity of Care Document ---
Author Organization [facility] Address [address] [place] [address] Phone Care Team Providers Care Vp Care Management Name Role Phone Ramila Apodaca MD Unavailable Unavailable Procedures Procedure Date INPT.CONSULTATION/STR FWD Advance Directives Directive Yes / No Effective Date File Name No Information Encounters Encounter Description Practice Location Reason(s) For Visit Diagnoses Date Provider Providers Copied on Encounter [facility], [address], [place], [place], [id number], tel:[phone] [employer] commissioning 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 [address], [place], [place], [address] , [place]. tel:[phone] INPT.CONSULTA TION/STR FWD [facility], [address], [place], [place], [address], tel:[phone] [employer] commissioning engineer No Information 9 Paulie Mcgrath. [address], [place], [place], [address] , [place]. tel:[phone] Family History Family Member Type Diagnosis Age At Onset No Information Payers Payer name Insurance type Covered republican ID Authoriza tion(s) No Information Social History [...]
--- OUTSIDE RECORDS SUMMARY | 2025-01-30 11:15 | XMS_ITS ---
Author Organization [facility] Address [address] [place] [address] Care Team Providers Care Wire Twister Name Role Phone Chelita Jackson Unavailable [phone] Seda Sutton Unavailable [phone] REASON FOR VISIT 6 WK PP Social History Sex Assigned At : Social History Observation Description Sex Assigned At Female Encounters Encounter Location Date Provider Diagnosis [facility] [address] [facility] [address] [place] [address] 01/30/2025 Seda Herman Plan Of Treatment Next Appt Details Provider Name:Chelita Jackson , 08/13/2025 08:45:00 AM, [address], [place], [address], Provider Name:Chelita Jonasisaac , 08/20/2025 09:00:00 AM, [address] , [place], [address], Provider Name:Chelita Jonasisaac , 09/12/2025 11:15:00 AM, [address], [place], [address], Progress Notes * Maia KOVACSDOB:[birth year] (35 yo F)Acc No.[id number]:01/30/2025 Progress Note Patient: Maia García Provider: Tomeka Sutton MD :1990 A ge:34 Y S ex:Female Date:01/30/2025 Address:[address] [place] [address], Hany collins [id number] Subjective: * Chief Complaints: * 6 WK PP * Electronic signature of Maureen Sutton MD on 07/11/2025 at 06:06 PM EDT Sign off status: Pending Visit Status: C ANC-PD (Cancelled Patient Delivered) * Provider: Tomeka Sutton MD Date: 0 01/30/2025 Generated for Kay sarkar/Haydee/Ramositting on: 1 06:06 PM EDT
--- OUTSIDE RECORDS SUMMARY | 2025-06-18 05:15 | XMS_ITS ---
Author Organization [facility] Address [address] [place] [address] Care Team Providers Care Microscopist Name Role Phone Chelita Jackson Unavailable [phone] Seda Sutton Unavailable [phone] REASON FOR VISIT US order Social History Sex Assigned At : Social History Observation Description Sex Assigned At Female Encounters Encounter Location Date Provider Diagnosis [facility] [address] [facility] [address] [place] [address] 06/18/2025 Seda Sutton Pelvic pain R10.2 Assessments Encounter Date Diagnosis (ICD Code) Assessment Notes Treatment Notes Treatment Clinical Notes Section Notes 06/18/2025 Pelvic pain (ICD-10 - R10.2) Plan Of Treatment Next Appt Details Provider Name:Chelita Renetta , 08/13/2025 08:45:00 AM, [address], [place], [address], Provider Name:Chelita Renetta , 08/20/2025 09:00:00 AM, [address], [place], [address], Provider Name:Chelita Renetta , 09/12/2025 11:15:00 AM, [address], [address], [place], [address], Progress Notes * Maia KOVACSDOB:[birth year] (35 yo F)Acc No.[id number]:06/18/2025 Patient: Maia LUIS :1990 A ge:35 Y S ex:Female Address:[address] [place] [address], [place], [address] Subjective: * Chief Complaints: * U S order Assessment: * Assessment: 1. P robertvic pain - R10.2 Plan: * Treatment: * true * Date: Generated for Kay sarkar/Haydee/Ramositting on: 06:04 PM EDT
--- OUTSIDE RECORDS SUMMARY | 2025-06-20 10:00 | XMS_ITS ---
Author Organization [facility] Address [address] [facility] [facility] [address] [place] [address] Care Team Providers Care Web Engineer Name Role Phone Chelita Jackson Unavailable [phone] Seda Sutton Unavailable [phone] Results Component Value Reference Range Notes *US Pelvis Complete Transabd ominal/Vaginal (Non-OB) Reviewed date:06/22/2025 01:09:37 PM Interpretation: Performing Lab: Notes/Report: [facility] Transvaginal Pelvic Study Report Name: MAIA KOVACS Accession/Encounter No:[id number] Procedure/Order ID: [id number] : 1990 Age: 35 Gender: F Study Date: Jun 20, 2025 Study Time: 01:48 PM Reading Group: Seda Sutton MD Referring Group: Seda Sutton MD Ordering Phys: Seda Sutton MD Lace Roller Operator: Marlin Rodriguez RDMS Equipment: Affiniti 30 Study Quality: Good Indications: LLQ pain A complete pelvic transvaginal ultrasound was performed. Sag AP Trans Volume cm cm cm ml Uterus 5.16 3.68 4.63 46.03 Right ovary: 3.4 1.64 2.19 6.39 Left ovary: 2.05 1.63 1.42 2.48 Endometrium thickness: 8.8 mm Findings: A transvaginal exam was performed. The uterus is anteverted. The uterus is 5.16 x 3.68 x 4.63 cm, with volume of 46.03 ml. The endometrium measures 8.8 mm. The right ovary measures 3.4 x 1.64 x 2.19 cm, volume 6.39 ml. There is a 1.9 x 1.52 x 2.06 cm complex cyst noted on the right ovary. The left ovary measures 2.05 x 1.63 x 1.42 cm, volume 2.48 ml. The cervix is 2.02 cm long. Conclusions: Uterus and left ovary appear normal. Right ovary has complex area with internal echoes/debris with peripheral blood flow noted to the area. No free fluid or adnexal masses noted. Approved By: Seda Sutton MD Approved at: June 22, 2025 12:50 PM EDT Electronically Signed on Studycast MAIA KOVACS 2025-06-20 Page 1 of 1 Imaging Center - , [facility] REASON FOR VISIT Abdominal Pain..confirmed appt time and location..cv Social History Sex Assigned At : Social History Observation Description Sex Assigned At Female Encounters Encounter Location Date Provider Diagnosis [facility] [address] [facility] [address] [place] [address] 06/20/2025 Seda Sutton Pelvic pain R10.2 Assessments Encounter Date Diagnosis (ICD Code) Assessment Notes Treatment Notes Treatment Clinical Notes Section Notes 06/20/2025 Pelvic pain (ICD-10 - R10.2) Plan Of Treatment Next Appt Details Provider Name:Chelita Jonasisaac , 08/13/2025 08:45:00 AM, [address], [place], [address], Provider Name:Chelita Jonasisaac , 08/20/2025 09:00:00 AM, [address] , [place], [address], Provider Name:Chelita Jackson , 09/12/2025 11:15:00 AM, [address] , [address], [place], [address], Progress Notes * Maia KOVACSDOB:[birth year] (35 yo F)Acc No.[id number]:06/20/2025 Patient: Maia García Provider: Tomeka Sutton MD :1990 A ge:35 Y S ex:Female Date:06/20/2025 Address:[address] [place] [address], [facility] Subjective: * Chief Complaints: * A bdominal Pain..confirmed appt time and location..cv Assessment: * Assessment: 1. P elvic pain - R10.2 Plan: * Treatment: Billing Information: * Procedure Codes: * Electronic signature of Maureen Sutton MD on 07/11/2025 at 06:05 PM EDT Sign off status: Pending Visit Status: C HK (Check Out) * Provider: Tomeka Sutton MD Date: 0 06/20/2025 Generated for Kay sarkar/Haydee/Wally on: 1 06:05 PM EDT
--- OUTSIDE RECORDS SUMMARY | 2025-06-20 10:45 | XMS_ITS ---
Author Organization [facility] Address [address] [place] [address] Care Team Providers Care Bucket Hooker Name Role Phone Chelita Jackson Unavailable [phone] Seda Sutton Unavailable [phone] Allergies Allergen (clinical drug ingredient) Drug/Non Drug [...] Domestic violence: No Do you have any episcopalian, m oral, or cultural beliefs or customs that your provider should know about? No Would you object to blood products in the event of an emergency? No Problems Problem Type SNOMED Code ICD Code Onset Dates Problem Status W/U Status Risk Notes Problem Endometriosis (548239275) Endometriosis (N80.9) Active confirmed Problem Female urinary stress incontinence (95086782) ELIZABETH (stress urinary incontinence, female) (N39.3) Active confirmed Problem Endometrioma (211229589) Endometrioma (N80.129) Active confirmed Vital Signs Blood pressure systolic 104 mm Hg 06/20/20 25 Blood pressure diastolic 64 mm Hg 025 Height 69 in 06/20/2025 Weight 158.6 lbs 06/20/2025 BMI 23.42 kg/m2 06/20/2025 Encounters Encounter Location Date Provider Diagnosis [facility] [address] [facility] [address] [place] [address] 06/20/2025 Seda Borders Endometriosis N80.9 ; Pelvic [...] BSO for defi nitive mangement of endometriosis Next Appt Details Provider Name:Chelita Jackson , 08/13/2025 08:45:00 AM, [address], [place], [address], Provider Name:Chelita Jackson , 08/20/2025 09:00:00 AM, [address], [place], [address], Provider Name:Chelita Jackson , 09/12/2025 11:15:00 AM, [address], [address], [place], [address], History and Physical Notes * HPI (History of Present Illness) Category Sub-Category Detail Notes Category Not es 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 Progress Notes * Maia KOVACS PavelDOB:[birth year] (35 yo F)Acc No.[id number]:06/20/2025 Progress Note Patient: Maia García Provider: Tomeka Sutton MD :1990 A ge:35 Y S ex:Female Date:06/20/2025 Address:[address] [place] [address], [facility] Subjective: * Chief Complaints: * A bdominal [...] Migraine Headaches Endometriosis Medical History Verified * Sales Account Associate History: P ap Smear History: D ate [...] Para: 2 P regnancy # 1: 8 , Primary , Baby Weight:6lb 7.9oz , [...] omestic violence: No. Do you have any episcopalian, moral, or cultural beliefs or customs that [...] CAPS): Unspecified - Allergy - Onset Date 3507-97-44ZBRYO EXAM GLOVES (DISPOSABLE GLOVES): Unspecified - Allergy - Onset Date 1505-19-13Bbhv: Coconut: Unspecified - AllergyNSAIDS: Unspecified - Allergy - Onset Date 6034-57-66XBOBPN: Unspecified - Allergy - Onset Date 7345-71-23Qigx: Pineapple: Unspecified - AllergySULFAMETHOXAZOLE-TRIMETHOPRIM: Unspecified - Allergy - Onset Date 7372-36-61zwvNwoibbwze Verified. Objective: * Vitals: B P:104/64mm Hg, [...] Procedures: . Billing Information: * Visit Code: 31267 Office/Outpatient visit, est patient. * Sign off status: Completed Visit Status: C HK (Check Out) true * Provider: Tomeka Sutton MD Date: 0 06/20/2025 Generated for Kay sarkar/Haydee/Delilahsmhernando on: 06:05 PM EDT
--- NOTE | 2025-07-11 17:46 | ED_ITS ---
<Statement entered by Nathen Solo DO - 07/12/25 02:57> I was consulted by the AMANDO, and we discussed the complexity of problems being addressed. I approved the treatment and management plan for this patient's care in the emergency department, thus performing a substantive portion of the medical decision making. Nathen Solo DO Discharge Plan Disposition Patient Disposition: Home, Self-Care Condition: Good Prescriptions Prescriptions: New nitrofurantoin monohyd/m-cryst [Macrobid] 100 mg capsule 100 mg PO BID 7 Days Qty: 14 0RF Rx Instructions: must administer with a meal/food phenazopyridine [Pyridium] 200 mg tablet 200 mg PO TID PRN (Reason: pain) Qty: 6 0RF No Action gabapentin 300 mg capsule 300 mg PO Patient Comments: TAKE ONE CAPSULE BY MOUTH EVERY 8 HOURS MAY CAUSE DROWSINESS cyanocobalamin (vitamin B-12) 1,000 mcg/mL solution 1,000 mcg SQ Patient Comments: INJECT 1 ML DIRECTED EVERY 28 DAYS pantoprazole 40 mg tablet,delayed release (DR/EC) 40 mg PO ONCE Patient Comments: TAKE ONE TABLET BY MOUTH TWICE DAILY famotidine [Pepcid] 20 mg Tablet 20 mg PO DAILY Referrals Follow up/Referrals: Michaela Sousa APRN [Primary Care Provider, Medical] - See instructions Clinical Impressions Clinical Impression: Gastroenteritis, Urinary tract infection Instructions Patient Instructions: DI for Urinary Tract Infection (UTI) Print Language Print Language: Bangladeshi Discharge ED Provider: Nathen Solo General Adult HPI General Chief complaint: Abdominal Pain Stated complaint: abdominal pain,vomiting Time Seen by Provider: 07/11/25 17:46 History of Present Illness HPI narrative: 35-year-old female with a history of endometriosis with endometriosis presents emergency department complaints of diffuse abdominal pain that is worse in the right lower quadrant for the past several days. She reports that she has had loose stools with nausea and vomiting. She states that she did have low-grade fever prior to arrival. She reports that she is scheduled to have a hysterectomy late July. She states that she has been taking Zofran and Phenergan without relief of symptoms. Related Data Home Medications ?Medication ?Instructions ?Recorded ?Confirmed famotidine 20 mg tablet (Pepcid) 20 mg PO DAILY 06/21/25 cyanocobalamin (vitamin B-12) 1,000 mcg SQ 02/07/25 1,000 mcg/mL injection solution gabapentin 300 mg capsule 300 mg PO 02/07/25 06/21/25 pantoprazole 40 mg tablet,delayed 40 mg PO ONCE 06/21/25 release Previous Rx's ?Medication ?Instructions ?Recorded nitrofurantoin 100 mg PO BID 7 days #14 cap s 07/11/25 monohydrate/macrocrystals 100 mg capsule (Macrobid) phenazopyridine 200 mg tablet 200 mg PO TID PRN pain 6 doses #6 07/11/25 (Pyridium) tabs Allergies Allergy/AdvReac Type Severity Reaction Status Date / Time celecoxib (From Celebrex) Allergy Severe Anaphylaxis Verified 06/21/25 16:35 latex (LATEX) Allergy Severe Anaphylaxis Verified 06/21/25 16:35 coconut Allergy Unknown Anaphylaxis Verified 06/21/25 16:35 Pertussis Vaccines Allergy Unknown Unknown Verified 06/21/25 16:35 (PERTUSSIS VACCINES) allergy reaction pineapple (PINEAPPLE) Allergy Unknown Unknown Verified 06/21/25 16:35 allergy reaction Sulfa (Sulfonamide Allergy Unknown Unknown Verified 06/21/25 16:35 Antibiotics) (SULFA allergy (SULFONAMIDE ANTIBIOTICS)) reaction dicyclomine (From Bentyl) AdvReac Blurry Verified 06/21/25 16:35 Vision ketamine AdvReac Rash Verified 06/21/25 16:35 [facility] Disclaimer: The information contained in this section may have been updated after the patient was seen, as this information can be updated by other users. Medical History Sinusitis Viral upper respiratory infection Liver disease Depression Anxiety History of anemia History of gastroesophageal reflux (GERD) Kidney stone Migraine Surgical History History of tonsillectomy History of cholecystectomy History of section Family History Grandfather Cancer Colon Cancer Mother Cancer Thyroid Cancer Sister Cancer Cervical Cancer Grandmother Cancer Maternal Grandmother-Cervical, Breast and Lung Cancer Social History Smoking Status: Never smoker second hand exposure: No alcohol intake: never current occupational status: employed Travel in the last 8 weeks?: None household members: other housing: house 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 current occupational exposures/hazards: No caffeine: Yes Have you lived/traveled outside US in past 30 days?: No Contact w/someone who lives/traveled outside US past 30 days?: No Exposure to someone with infectious disease in past 14 days?: No Do you have a fever (greater than 100.4 F or 38 C)?: No Have you tested positive for COVID-19?: No Exposed to someone with COVID-19 in past 14 days?: No Do you have a sore throat?: No Do you have a cough?: No Do you have any weakness?: No Do you have any diarrhea?: No Are you experiencing any unusual bleeding?: No Do you have any muscle aches/pain?: No Do you have any abdominal pain?: No Are you experiencing loss of taste or smell?: No Other Medical History Have you received the Flu Vaccine for this season: Yes Have you received the Pneumonia Vaccine: No ROS Obtained: Yes other Constitutional Constitutional: Reports fever(s) Gastrointestinal Gastrointestingal: Reports abdominal pain, nausea and vomiting Physical Exam Narrative Physical exam: General: Awake, aware, in no acute distress HEENT: Normocephalic, no evidence of trauma CV: RRR, no murmurs, rubs, or gallops Pulm: CTA bilaterally with no rhonchi, rales, wheezes ABD: Patient with normal active bowel sounds in all quadrants. She reports diffuse abdominal tenderness that however reports it is worse in the right lower quadrant. Psych, appropriate mood and affect General General appearance: alert Respiratory Respiratory exam: Present normal lung sounds bilaterally Cardiovascular Cardiovascular exam: Present regular rate Neurological Exam Neurological exam: Present alert Medical Decision Making Medical Records Screening: Per USPSTF and CDC recommendations, given the prevalence of disease in our region, it is our hospital?s policy to screen for HIV and viral Hepatitis for all patients aged 18 and over and those with ongoing risk factors. Federico Inquiry Pt receiving controlled substance: No Vital Signs: 07/11/25 17:54 Temperature 98.3 F Temperature Source Oral Pulse Rate [Right Radial] 77 Respiratory Rate 15 Blood Pressure [Right Arm] 121/78 Blood Pressure Mean [Right Arm] 92 02 Sat by Pulse Oximetry 100 Oxygen Delivery Method Room Air Lab Data Lab Results 07/11/25 17:54: Urine Color Yellow, Urine Appearance Sl cloudy, Urine pH 6.0, Ur Specific [place] 1.025, Urine Protein Negative, Urine Glucose (UA) Negative, Urine Ketones Negative, Urine Blood Negative, Urine Nitrate Negative, Urine Bilirubin Negative, Urine Urobilinogen 0.2, Ur Leukocyte Esterase Negative, Urine RBC 5-10, Urine WBC 50-100, Ur Squamous Epith Cells Occasional, Urine Bacteria 4+ 07/11/25 18:02: Urine Opiates Screen Negative, Urine Methadone Screen Negative, Ur Barbituates Screen Negative, Ur Phencyclidine Scrn Negative, Ur Amphetamines Screen Negative, U Benzodiazepines Scrn Negative, Urine Cocaine Screen Negative, U Marijuana (THC) Screen Negative 07/11/25 18:12: WBC 7.7, RBC 4.33, Hgb 12.3, Hct 37.9, MCV 87.5, MCH 28.4, MCHC 32.5, RDW 13.2, Plt Count 300, MPV 9.0, Neut % (Auto) 60.2, Lymph % (Auto) 24.5, Warren % (Auto) 10.2 H, Eos % (Auto) 3.7, Baso % (Auto) 0.4, Neut # (Auto) 4.7, Lymph # (Auto) 1.9, Warren # (Auto) 0.8, Eos # (Auto) 0.3, Baso # (Auto) 0.0, Sodium 140, Potassium 3.4 L, Chloride 103, Carbon Dioxide 26, Anion Gap 14.4, BUN 7, Creatinine 0.60, Estimated Creat Clear 153, Estimated GFR 115, Est GFR ( Amer) 139, Glucose 84, Calcium 8.6, Magnesium 2.1, Total Bilirubin 0.2, AST 25, ALT 15, Alkaline Phosphatase 101, Total Protein 7.7, Albumin 4.4, G lobulin 3.3 H, Albumin/Globulin Ratio 1.3, Lipase 20 L, Serum HCG, Qual Negative 07/11/25 18:12 07/11/25 18:12 Orders (Tests/Meds): ED MEDICATIONS Generic Name Dose Route Start Last Admin Trade Name Freq PRN Reason Stop Dose Admin Phenazopyridine HCl 200 mg 07/11/25 19:50 Phenazopyridine 200mg Tablet PO 07/11/25 19:51 ONCE ONE Promethazine HCl 25 mg 07/11/25 19:50 Promethazine Hcl 25mg/Ml 1ml Vial IV 07/11/25 19:51 ONCE ONE Sodium Chloride 25 ml 07/11/25 19:50 Sodium Chloride 0.9% 25ml Bag IV 07/11/25 19:51 ONCE ONE Discontinued Medications Generic Name Dose Route Start Last Admin Trade Name Ramiro PRN Reason Stop Dose Admin Sodium Chloride 1,000 mls @ 999 mls/hr 07/11/25 17:47 07/11/25 18:17 Sod Chlor 0.9% 1000ml Bag IV 07/11/25 18:47 999 mls/hr .Q1H1M ONE Administration Ceftriaxone Sodium 1 gm/ 50 mls @ 100 mls/hr 07/11/25 18:55 07/11/25 19:46 Sodium Chloride IV 07/11/25 19:24 100 mls/hr ONCE ONE Administration Iopamidol 75 ml 07/11/25 19:11 07/11/25 19:12 Iopamidol-370 (76%);100ml Bottle IV 07/11/25 19:12 75 ml ONCE ONE Administration Ondansetron HCl 4 mg 07/11/25 17:47 07/11/25 18:18 Ondansetron 4mg/2ml Vial IV 07/11/25 17:48 4 mg ONCE ONE Administration Sodium Chloride 10 ml 07/11/25 19:11 07/11/25 19:12 Sodium Chloride 0.9% 10ml Syr (Rad Only) IV 07/11/25 19:12 10 ml ONCE ONE Administration ORDERS Category Date Time Status CT abdomen pelvis w con Stat Cat Scan 07/11/25 18:12 Completed CBC w/Auto Diff [Complete Blood Count Auto Diff] Stat Lab 07/11/25 18:12 Completed CMP [Comprehensive Metabolic Panel] Stat Lab 07/11/25 18:12 Completed Drug Screen,Urine Stat Lab 07/11/25 18:02 Completed HCG Qualitative, Serum Stat Lab 07/11/25 18:12 Completed Lipase Stat Lab 07/11/25 18:12 Completed Magnesium Stat Lab 07/11/25 18:12 Completed Urinalysis and Microscopic Stat Lab 07/11/25 17:54 Completed Urine Culture Stat Micro 07/11/25 17:54 Received Medical Decision Narrative: Initial impression of presenting illness: 35-year-old female presents the emergency department complaints of abdominal pain, nausea, vomiting, loose stools, low-grade fever for the past several days. She reports she has a history of endometriosis with an endometrial cyst and is scheduled for hysterectomy in late July. She reports she has been taking Zofran and Phenergan without relief of symptoms as well as Tylenol for fever control. Differential diagnosis includes but is not limited to: Gastroenteritis, constipation, endometriosis, adhesions, urinary tract infection, kidney stone, pyelonephritis Patient arrives hemodynamically stable, afebrile, without respiratory distress with vital signs interpreted by myself. Initial physical exam reveals diffuse abdominal tenderness to palpation that is worse in the right lower quadrant. Rest of exam is unremarkable Initial diagnostic plan: Abdominal pain workup including normal saline bolus for hydration, Zofran for nausea Results from initial plan were reviewed and interpreted by myself, pertinent positives include: Urinalysis positive for 4+ bacteria, 5-10 red blood cells per high-power field as well as 50-100 white blood cells per high-power field. Rest of laboratory studies were nonactionable. CT of abdomen and pelvis with IV contrast concerning for a gastroenteritis. Interventions in the ED: Patient was given normal saline bolus for hydration as well as Zofran initially for nausea. Patient continued to complain of pain and nausea and was then given Pyridium and Phenergan IV. Patient was also given a dose of Rocephin to treat her urinary tract infection. Patient was made aware of the results and the findings, upon reevaluation patient has remained stable throughout stay, symptoms remain stable. Patient has not had any episodes of vomiting or diarrhea during her ER stay. Her vital signs have remained stable Disposition: Reviewed findings today's workup with patient informed no acute abnormalities were noted on her laboratory studies but it does appear that she has a urinary tract infection. Advised her that her CT scan was consistent with a gastroenteritis which I would assume to be a viral gastroenteritis given the results of the rest of her laboratory studies. Reviewed symptomatic treatment with patient including increase fluids and rest as well as Tylenol ibuprofen as needed for pain or fever control. Encouraged her to continue taking her previously prescribed Zofran and Phenergan for nausea control. Advised her we will also give a prescription for Macrobid to treat for her urinary tract infection. Advised her that urine culture has been sent and she will be notified next several days if changes to her antibiotics were needed based off those results. Instructed her to follow with her primary care provider or return to the emergency department any new or worsening symptoms Patient made aware of findings and had a detailed discussion with symptomatic care and return precautions, patient voiced understanding. Critical Care Critical Care Time Critical Care Time: No
[2025-07-11 17:54] VITALS: BP 121/78; PULSE 77; RESP 15; TEMP 36.8; O2SAT 100; BMI 23.6
[2025-07-11 17:58] LABS: Bilirubin,Urine Negative (Negative); Color,Urine YELLOW (Yellow); Glucose,Urine (UA) Negative (Negative); Ketones,Urine Negative (Negative); Leukocyte Esterase,Urine Negative (Negative); Microscopic, Urine URINE MICROSCOPIC (MICROSCOPIC); PH,Urine 6.0 (5.0-8.5); Protein,Urine Negative (Negative); Specific Gravity, Urine 1.025 (1.005-1.030); Urobilinogen,Urine 0.2 EU/dl (0.2)
--- OUTSIDE RECORDS SUMMARY | 2025-07-11 18:04 | XMS_ITS | Clinical Summary ---
Author Organization [facility] Address [address] [facility] [address] [facility] [address], [place] [address] Phone Care Team Providers Care Candy Mixer Name Role Phone Unavailable Primary Care Provider [...] a complete record from that organization. b rmujvax-[id number]-bpvsr acid (NEPHROCAP) 1 mg Oral Capsule Take [...] (07/05/2020): Added automatically from request for surgery [id number] Pelvic pain 07/05/2020 Overview (07/05/2020): Added automatically from request for surgery [id number] Scoliosis of thoracic spine 03/09/2019 S/P endometrial [...] Story LPN Medical Devices Implanted Type Area Commercial Property Manager Device Identifier Shelf Expiration Date Model / Serial / Lot Screw For Bridge Insurance [facility] CHO[facility] PLUS [facility] PLUS [facility] PLUS [facility] PLUS [facility] CHOICE PLUS * Guarantor: Maia Kovacs Account Type Relation to Patient Date of Phone Billing Address [place] Personal Family Self Advance Directives For more information, please contact: [phone] * Full Code (Latest Code Status on [...]
--- OUTSIDE RECORDS SUMMARY | 2025-07-11 18:05 | XMS_ITS | CCD ---
Author Name Interface, [id number] lity Address [address] [place] [address] Organization [facility] Address [address] [place] [address] Care Team Providers Care Cloud Physicist Name Role Phone Jens Slaughter MD Unavailable Unavailable Reason for Visit I&C TECH IRON DEFICIENCY Medications Date Name Route Dose Frequency Instructions Start Date End Date Status Fill Status Indication 11/02 Quetiap ine Oral Oral daily active 11/02 Melaton in Oral Oral one at bedtime active 11/02 Ferrous Sulfate Oral Oral one twice daily active 11/02 Gabapen tin Oral Oral one twice daily active 11/02 Spirono lactone Oral Oral 1.5 tablets daily active 11/02 Quetiap ine Oral Oral one at bedtime active 11/02 Spirono lactone Oral Oral at bedtime stopped 11/02 Potassi um Chlorid e Oral ER Tab Oral 2 in the morning active 11/02 Nitrogl ycerin Subling ual Sublingu al PRN active 11/02 Mariajose Oral Oral Daily Mariajose [...]
--- OUTSIDE RECORDS SUMMARY | 2025-07-11 18:05 | XMS_ITS | Clinical Summary ---
Author Organization [employer] ([place], [place], [place], [place]) Address [address] [place] [address] Care Team Providers Care Director Of Brand Marketing Name Role Phone Unavailable Primary Care Provider [...] Date Tommie rded Speak language other than Italian at home Not on file 10/15/2023 Want [...] Advance Directives For more information, please contact: [phone] * Full Code (Latest Code Status on File) Date Activated Date Inactivated Comments 11/11/2022 7:28 AM 11/11/2022 12:16 PM
--- OUTSIDE RECORDS SUMMARY | 2025-07-11 18:05 | XMS_ITS | Data Portability ---
Author Organization [facility] RONDA HobbsS MULVANE CLOSED Address [address] [place] [address] Care Team Providers Care Building Trades Instructor Name Role Phone MATTHEW RAMSEY Referring Provider [phone] Assessment No assessment recorded. Plan of Treatment Reminders Order Date Submit Date Provider Last Modified By Organization Details Last Modified Time Details Appointments NEW PATIENT 2024 03:40P M JULIA FOX MD Not available Not available Not available Lab urinalysi s panel, auto [address] [facility], [address] [place] [address], [address], [place], [address], 11/30/2022 17:16:25 Referral None recorded. Procedures None recorded. Surgeries None recorded. Imaging None recorded. Medication Orders hydrocodo ne 7.5 mg-acetam inophen 325 mg tablet [address] [facility], [address] [place] [address] [address], [place], [place], [id number], 12/01/2022 23:16:21 Patient TargetsNo targets recorded. Patient InstructionsNo instructions recorded. Reason for Referral None Reported. Results Created Date Observation Date Name Description Value Unit Range Abnormal Flag Note LastModifiedBy Organization Detail LastModifiedTime 12/01/19 23 11/30/2022 urina lysis panel , auto Unknown Analyte Clean Catch Not Available [facility] [address] [place] [address] [address], [place], [address], 11/30/2022 15:52:30 12/01/19 23 11/30/2022 urina lysis panel , auto Unknown Analyte Yellow Not Available [facility] [address], [place], [address], 11/30/2022 15:52:30 12/01/19 23 11/30/2022 urina lysis panel , auto Unknown Analyte Clear Not Available [facility] [address], [place], [address], 11/30/2022 15:52:30 12/01/19 23 11/30/2022 urina lysis panel , auto Unknown Analyte 1.015 Not Available [facility] [address], [place], [address], 11/30/2022 15:52:30 12/01/19 23 11/30/2022 urina lysis panel , auto Unknown Analyte 7.0 Not Available [facility] [address], [place], [address], 11/30/2022 15:52:30 12/01/19 23 11/30/2022 urina lysis panel , auto Unknown Analyte Negati ve Not Available [facility] [address], [place], [address], 11/30/2022 15:52:30 12/01/19 23 11/30/2022 urina lysis panel , auto Unknown Analyte Negati ve Not Available [facility] [address], [place], [address], 11/30/2022 15:52:30 12/01/19 23 11/30/2022 urina lysis panel , auto Unknown Analyte Negati ve Not Available [facility] [address], [place], [address], 11/30/2022 15:52:30 12/01/19 23 11/30/2022 urina lysis panel , auto Unknown Analyte Normal Not Available [facility] [address], [place], [address], 11/30/2022 15:52:30 12/01/19 23 11/30/2022 urina lysis panel , auto Unknown Analyte Negati ve Not Available [facility] [address], [place], [address], 11/30/2022 15:52:30 12/01/19 23 11/30/2022 urina lysis panel , auto Unknown Analyte Normal Not Available [facility] [address], [place], [address], 11/30/2022 15:52:30 12/01/19 23 11/30/2022 urina lysis panel , auto Unknown Analyte Negati ve Not Available [facility] [address], [place], [address], 11/30/2022 15:52:30 12/01/19 23 11/30/2022 urina lysis panel , auto Unknown Analyte Negati ve Not Available [facility] [address], [place], [address], 11/30/2022 15:52:30 12/20/19 23 12/18/2022 fluor oscop y (PROC ) No observ ation record ed. [email or web address] [facility] [address] [facility], [place], [address], 12/21/2022 21:32:21 Result Notes None recorded. Problems No Known Problems Medical Equipment None Reported. Allergies Allergen ID Allergen Name Allergen Category Reaction Reaction Severity Criticality Documentation Date Start Date Code Code System Note Provider Name and Address Organization Details Recorded Time 028025 Substance with sulfonami de structure and antibacte rial mechanism of action (substanc e) medicatio n Not available Not available Not available 11/30/2022 96270 8003 SNOMED [facility] 15:51:45 566187 Non-stero idal anti-infl ammatory agent (substanc e) medicatio n Not available Not available Not available 11/30/2022 48512 5008 [facility] 15:51:55 748282 Latex (substanc e) environme nt,medica tion Not available Not available Not available 11/30/2022 10297 8007 [facility] 15:52:01 Medications Name Sig Start Date Stop [...] Address Organization Details Last Updated DateTime 11/30/2022 72160.82 g 22.9 kg/m2 175.[address] [facility] 11/30/2022 15:51:26 Social History None recorded. Functional Status None recorded. Mental Status None recorded. Family History Nothing Reported. Medical History No medical history recorded. Gynecological HistoryNo gynecological history recorded. Obstetrics History GPAL:G 0 P 0 0 0 0 Past Encounters Encounter ID Performer Location Encounter Start Date Encounter Closed Date Diagnosis/Indication Diagnosis SNOMED-CT Code Diagnosis ICD10 Code Diagnosis IMO Codes Diagnosis Note [id number] MILDRED VIDES MD [facility] [address] [place] [address] 11/30/2022 15:19:19 11/30/2022 16:50:57 Urolithiasis 42273430 N20.9 arrange for above Health Concerns Section Related Observation LastModified by Organization Detai ls LastModified Time None Recorded Concern Status LastModified by Organization Details LastModified Time None Recorded Advance Directives Directive None Recorded Payers Insurance Date Sequence Insurance Name Policy Number Policy Interiano Covered Member ID Interiano Member ID Guarantor Name 02/23/2025 1 [place] [id number] Maia Fermín [id number] Maia Whatcom 06/22/2025 1 [facility] Maia Whatcom [id number] Maia Whatcom 02/23/2025 1 [facility] [id number] Maia Whatcom [id number] Maia What[employer] Notes Date Note Type Note Provider Name and Address Organization Details Recorded Time 11/30/2022 text/html Here for initial visit for urolithiasis. She passed a stone years ago but now has had right sided back pain and urgency for several weeks. She brought ct scan disc from [facility] for review. No hydro and two tiny 1mm stones in right kidney. The pain is sign. at times. We discussed cysto and right retrograde to assess for missed stone on ct scan. MILDRED VIDES MD [address] [place], [address], [facility] 12/01/2022 23:20:23 OBGyn Episode No OBEpisode recorded.
--- OUTSIDE RECORDS SUMMARY | 2025-07-11 18:05 | XMS_ITS | Clinical Summary ---
Author Organization [facility] Address [address] [place] [address] Care Team Providers Care Diamond Cleaner Name Role Phone Nonstaff, Referring Primary Care Provider [phone] Johnnie Shearer MD Unavailable [phone] Allergies Active Allergy Reactions Criticality Noted Date [...] 40 mg by mouth daily. Active Coenzyme D74-Exglony E 100-5 mg-unit Capsule Take 400 mg [...] to Subscriber:Self Name:Maia Kovacs Payer ID:[id number] ([facility]) Type:PPO Address: [facility] [address] [place] [id number] Care Teams Diamond Cleaner Relationship Specialty Start Date End Date Nonstaff, MD [facility] [address] [place] [address] PCP - General 02/16/23 Johnnei Shearer MD [address] [place], [place] [id number] Gastroenterology 02/16/23
--- OUTSIDE RECORDS SUMMARY | 2025-07-11 18:06 | XMS_ITS | Encounter Summary ---
Author Organization [place] [address] Care Team Providers Care Supervisor Nuclear Medicine Name Role Phone Radha Ordaz LPN Unavailable Unav ailable Encounter Details Date Type Department Care Team (Late st Contact Info) Description 11/02/2018 Lab Requisition [facility] [place] [address] Wendy Emerson MD [address] [place] [id number] Other specified abnormal findings of blood [...] HORMONE -REF LAB (11/02/2018 8:40 AM EST) [facility] ACTH 21 6 - 58 pg/mL 11/04/2018 2:20 PM EST [employer] Comment: INTERPRETIVE INFORMATION: Adrenocorticotropic Hormone Some types of synthetic ACTH are not detected by this assay. Access complete set of age- and/or gender-specific reference intervals for this test in the [facility] Test Directory ([facility]). Performed by [employer], [address] [place] [id number] www.[email or web address] [employer], Robert Restrepo MD, Lab. Director Blood VENOUS BLOOD / Unknown 11/02/2018 8:40 AM EST 11/02/2018 2:17 PM EST us Wendy Emerson MD CHEMISTRY ORDERABLES Fin al Result [facility] [address] [place] [address] documented in this encounter Visit Diagnoses Diagnosis Other specified abnormal findings of blood chemistry documented in this encounter Additional Health Concerns Assessment Noted Time PHQ-9 Depression Total Score: 2 10/07/19 19 4:43 PM EST PHQ-2 Depression Total Score: 2 10/07/19 19 4:43 PM EST documented as of this encounter Care Teams Supervisor Nuclear Medicine Relationship Specialty Start Date End Date Radha Ordaz LPN Autism Specialist Licensed Practical Nurse 03/15/20 04/02/20 documented as of this encounter
--- OUTSIDE RECORDS SUMMARY | 2025-07-11 18:06 | XMS_ITS | Encounter Summary ---
Author Organization [place] [address] Care Team Providers Care Golf Teacher Name Role Phone Radha Ordaz LPN Unavailable Unav ailable Encounter Details Date Type Department Care Team (Late st Contact Info) Description 11/02/2018 Lab Requisition [facility] [place] [address] Wendy Emerson MD [address] [place] [phone] Other specified abnormal findings of blood [...] 19.47 mcg/dL 9 5:29 PM EST [employer]ED [employer] Blood VENOUS BLOOD / Unknown 11/02/2018 9:45 AM EST 11/02/2018 4:09 PM EST Narrative [employer] - 11/02/2018 5:29 PM EST Normal Peak : > 20 ug/dl Wendy Emerson MD CHEMISTRY ORDERABLES Fin al Result Performing Organization Address [facility] de Phone Number [employer] [address] [place] [address] , [place] [address] * CORTISOL 30 MINUTES (11/02/2018 9:15 AM EST) Cortisol 30 Min 17.48 mcg/dL 9 5:35 PM EST [employer] Blood VENOUS BLOOD / Unknown 11/02/2018 9:15 AM EST 11/02/2018 4:09 PM EST Narrative [employer] - 11/02/2018 5:35 PM EST Normal Peak : > 20 ug/dl Wendy Emerson MD CHEMISTRY ORDERABLES Fin al Result Performing Organization Address [facility] Phone Number [employer] [address] [facility] , [place] [address] * CORTISOL BASELINE (11/02/2018 8:40 AM EST) Cortisol Baseline 10.37 mcg/dL 11/02/2018 5:35 PM EST [employer] Blood VENOUS BLOOD / Unknown 11/02/2018 8:40 AM EST 11/02/2018 4:09 PM EST Narrative [employer] - 11/02/2018 5:35 PM EST Ingestion of jose doses of biotin (>5 mg/day) taken within 8 hours of drawing blood sample can interfere with this immunoassay test. Wendy Emerson MD CHEMISTRY ORDERABLES Fin al Result Performing Organization Address [facility] de Phone Number [employer] [facility] [address] [facility] , [place] [address] documented in this encounter Visit Diagnoses Diagnosis Other specified abnormal findings of blood chemistry documented in this encounter Additional Health Concerns Assessment Noted Time PHQ-9 Depression Total Score: 2 10/07/19 19 4:43 PM EST PHQ-2 Depression Total Score: 2 10/07/19 19 4:43 PM EST documented as of this encounter Care Teams Golf Teacher Relationship Specialty Start Date End Date Radha Ordaz LPN Community Board Member Licensed Practical Nurse 03/15/20 04/02/20 documented as of this encounter
--- OUTSIDE RECORDS SUMMARY | 2025-07-11 18:06 | XMS_ITS | Referral Summary ---
Author Organization [employer] ([place], [place], [place], [place]) Address [address] [place] [address] Care Team Providers Care Cnc Supervisor Name Role Phone Unavailable Primary Care Provider [...] Date Tommie rded Speak language other than Iranian at home Not on file 10/15/2023 Want [...] Advance Directives For more information, please contact: [phone] * Full Code (Latest Code Status on File) Date Activated Date Inactivated Comments 11/11/2022 7:28 AM 11/11/2022 12:16 PM
--- OUTSIDE RECORDS SUMMARY | 2025-07-11 18:06 | XMS_ITS | Patient Health Record ---
Author Organization [facility] Address [address] [facility] [address] [place] [address] Care Team Providers Care Analysis Analyst Name Role Phone Chelita Jackson Unavailable [phone] Shivam Sutton Unavailable [phone] HuyValencia Unavailable [phone] Anthony Luna Unavailable [phone] Lani Gould Unavailable [phone] Leah Acosta Unavailable [phone] Georgie Perez Unavailable [phone] Allergies Allergen (clinical drug ingredient) Drug/Non Drug [...] date:08/23/2024 10:39:14 AM Interpretation: Performing Lab: Notes/Report: [facility] Transabdominal Obstetric Study Report Name: ROCIO KOVACS Accession/Encounter No:[id number] : 1990 Age: 34 Gender: F Study [...] 1 of 1 Imaging Center - , [facility] [address] *US Pelvis Complete Transabd ominal/Vaginal (Non-OB) Reviewed date:06/22/2025 01:09:37 PM Interpretation: Performing Lab: Notes/Report: [facility] Transvaginal Pelvic Study Report Name: ROCIO KOVACS Accession/Encounter No:[id number] Procedure/Order ID: [id number] : 1990 Age: 35 Gender: F Study Date: Jun 20, 2025 Study Time: 01:48 PM Reading Group: Shivam Sutton MD Referring Group: Shivam Sutton MD Ordering Phys: Shivam Sutton MD Transit Survey Worker: Marlin Rodriguez RDMS Equipment: [employer] 30 Study [...] fluid or adnexal masses noted. Approved By: Shivam Sutton MD Approved at: June 22, 2025 12:50 PM EDT Electronically Signed on Studycast ROCIO KOVACS 2025-06-20 Page 1 of 1 Imaging Center - , [facility] B Strep by PCR w/ PCN allergy Reviewed date:11/27/2024 09:52:59 PM Interpretation:Negative Performing Lab: Notes/Report: [facility] Testing performed at: [CB] [facility], [address] [place] [address], [phone], , Vegetable Canner: Jean Kebede, PhD Strep Gp B GREYSON+Rflx Negative Negative N Centers for Disease Control and Prevention (CDC) and [place] [employer] of Obstetricians and Gynecologists (ACOG) guidelines [...] 140-450 10*3/mm3 Lab specimens received at a [facility].?See result details for the [...] 140-450 10*3/mm3 Lab specimens received at a [facility].?See result details for the performing location information. GLUCOSE, POST 50 GM GLUCOLA Reviewed date:10/03/2024 03:01:33 PM Interpretation:passed - 82 Performing Lab: Notes/Report: GESTATIONAL GCT 82 65-139 mg/dL Lab spe cimens received at a [facility].?See result details for the performing location information. TREPONEMA PALLIDUM (SYPHILIS ) SCREENING CASCADE Reviewed date:10/04/2024 07:53:59 AM Interpretation:non reactive Performing Lab: Notes/Report: Reactive results will reflex RPR testing. TREPONEMAL AB TOTAL Non-Reactive Non-Reacti Lab specimens received at a [facility].?See result details for the performing location information. TISSUE PATHOLOGY EXAM Reviewed date:12/13/2024 01:05:40 PM Interpretation: Performing Lab: Notes/Report: LAB AP CASE REPORT Surgical Pathology Report Case: [id number] LAB AP CASE REPORT Authorizing Provider : Shivam Sutton MD Collected: 12/10/2024 01:35 PM LAB AP CASE REPORT Ordering Location: [facility] Received: 12/11/2024 06:35 AM LAB AP CASE REPORT LABOR DELIVERY LAB AP CASE REPORT Pathologist: Ignacia Piedra DO LAB AP CASE REPORT Specimen: Fallopian Tubes, Bilateral LAB AP CLINICAL INFORMATION Encounter for sterilization LAB AP FINAL DIAGNOSIS BILATERAL FALLOPIAN TUBES, STERILIZATION: LAB AP FINAL DIAGNOSIS Complete cross-sections of bilateral fallopian tubes identified LAB AP FINAL DIAGNOSIS at [address] [facility] LAB AP GROSS DESCRIPTION 1. Fallopian Tubes, Bilateral. [facility] AP GROSS DESCRIPTION Received in formalin labeled bilateral fallopian tube are 2 intact, undesignated, fimbriated fallopian tubes averaging 9 cm long by 0.8 cm in diameter. Sectioning of each fallopian tube reveals an unremarkable stellate lumen. Handle Bender sections of each tube to include the bisected fimbria and full-thickness cross-sections are submitted separately in 1 A- 1B. HDM LAB AP MICROSCOPIC DESCRIPTION The slides are reviewed and demonstrate histopathologic features supporting the above rendered diagnosis. Lab specimens received at a [facility].?See result details for the [...] /100 WBC Lab specimens received at a [facility].?See result details for the performing location information. ANTIBODY SCREEN Reviewed date:10/03/2024 03:20:01 PM Interpretation:negative Performing Lab: Notes/Report: ANTIBODY SCREEN Negative Lab speci mens received at a [facility].?See result details for the performing location information. Uric Acid, Serum Reviewed date:11/01/2024 02:12:09 PM Interpretation: Performing Lab: Notes/Report: LDH Reviewed date:11/01/2024 02:11:41 PM Interpretation: Performing Lab: Notes/Report: Comprehensive Metabolic Pane l (CMP) Reviewed date:11/01/2024 03:32:55 PM Interpretation:Normal Performing Lab: Notes/Report: Normal CBC Reviewed date:11/01/2024 02:12:26 PM Interpretation: Performing Lab: Notes/Report: *US OB Follow-Up Reviewed date:11/01/2024 03:28:29 PM Interpretation: Performing Lab: Notes/Report: [facility] Transabdominal Obstetric Study Report Name: ROCIO KOVACS Accession/Encounter No:[id number] : 1990 Age: 34 Gender: F Study [...] ROCIO KOVACS 2024-11-01 Page 1 of 1 [facility] - , [facility] OB Follow-Up Reviewed date:09/25/2024 07:57:44 AM Interpretation: Performing Lab: Notes/Report: [facility] Transabdominal Obstetric Study Report Name: ROCIO KOVACS Accession/Encounter No:[id number] : 1990 Age: 34 Gender: F Study [...] 1 of 1 Imaging Center - , 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 Currently Diagnosis 1 Rectal bleeding (K62 .5) Referral Organization [facility] Referring Provider First Name Leah Referring Provider Last Name Dave Referring Provider [facility] OB - Gynec ology Referral Priority Routine Referral Appointment Date 08/03/2024 Reason skin issues in pregn paul Diagnosis 1 Skin abnormality (L9 8.9) Referral Organization [facility] Referring Provider First Name Georgie Referring Provider Last Name Chris Referring [facility] General Notes Antonia [...] weeks gestation o f (Z3A.22) Referral Organization [facility] Referring Provider First Name Shivam Referring Provider [...] Domestic violence: No Do you have any yazidism, m oral, or cultural beliefs or customs that your provider should know about? No Would you object to blood products in the event of an emergency? No Problems Problem Type SNOMED Code ICD Code Onset Dates Problem Status W/U Status Risk Notes Problem Endometriosis (186936912) Endometriosis (N80.9) Active confirmed Problem Female urinary stress incontinence (44889168) ELIZABETH (stress urinary incontinence, female) (N39.3) Active confirmed Problem Chronic anemia (920515649) Chronic anemia (D64.9) Active confirmed Problem History of gastrointestinal disease (388477874) Hx of hepatic disease (Z87.19) Active confirmed Problem Second trimester (19933942) Encounter for supervision of other normal , second trimester (Z34.82) Active confirmed Problem Excessive vomiting (47866822) Excessive vomiting (O21.9) 021 Active confirmed Nausea and vomiting in Problem Genetic mutation (finding) (64273760) 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) Active confirmed Problem History of section (780061363) History of delivery (Z98.891) Active confirmed Problem Sterilization requested (situation) (549225341) Request for sterilization (Z30.2) Active confirmed Problem Abnormal uterine bleeding (71729887907277) Abnormal uterine bleeding (N93.9) Active confirmed Problem History of hemorrhage (121702292) History of hemorrhage (Z87.59) Active confirmed Problem Endometrioma (616089605) Endometrioma (N80.129) Active confirmed Vital Signs Blood pressure diastolic 64 mm Hg 06/20/2025 Height 69 in 06/20/2025 Blood pressure systolic 104 mm Hg 06/20/2025 Weight 158.6 lbs 06/20/2025 BMI 23.42 kg/m2 06/20/2025 Encounters Encounter Location Date Provider Diagnosis [facility] [address] [place] [address] 09/07/2024 Leah Acosta Encounter for supervision of other normal , second trimester Z34.82 [facility] [address] [place] [address] 09/11/2024 Chelita Jackson [facility] [address] [place] [address] 09/11/2024 Chelita Jackson Encounter for other screening follow-up Z36.2 [facility] [address] [place] [address] 10/04/2024 [facility] [address] [place] [address] 11/30/2024 [facility] [address] [place] [address] 12/01/2024 [facility] [address] [place] [address] 12/13/2024 [facility] [address] [place] [address] 12/18/2024 [facility] Encounter for routin e follow-up Z39.2 [facility] [address] [place] [address] 01/10/2025 [facility] [address] [place] [address] 06/18/2025 [facility] Pelvic pain R10.2 [facility] [address] [place] [address] 11/22/2024 [facility] [address] [place] [address] 12/12/2024 [facility] [address] [place] [address] 12/13/2024 [facility] [address] [place] [address] 12/14/2024 [facility] [address] [place] [address] 12/14/2024 [facility] [address] [place] [address] 12/14/2024 [facility] [address] [place] [address] 12/26/2024 [facility] Abnormal uterine bleeding N93.9 [facility] [address] [place] [address] 12/26/2024 [facility] [address] [place] [address] 12/28/2024 [facility] [address] [place] [address] 12/31/2024 [facility] [address] [place] [address] 01/15/2025 [facility] [address] [place] [address] 06/28/2025 [facility] [address] [place] [address] 08/22/2024 Georgie Perez 22 weeks gestation o f Z3A.22 and Encounter for supervision of other normal , second trimester Z34.82 [facility] [address] [facility] [address] [place] [address] 09/18/2024 Lani Gould 28 weeks gestation o f Z3A.28 [facility] [address] [facility] [address] [place] [address] 10/03/2024 Valencia Son Encounter for supervision of other normal , third trimester Z34.83 and 28 weeks gestation of Z3A.28 [facility] [address] [facility] [address] [place] [address] 10/17/2024 Shivam Sutton 30 weeks gestation o f Z3A.30 ; Encounter for supervision of other normal , third trimester Z34.83 and Hyperemesis gravidarum O21.0 [facility] [address] [facility] [address] [place] [address] 11/01/2024 Georgie Perez Encounter for supervision of other normal , third trimester Z34.83 and 32 weeks gestation of Z3A.32 [facility] [address] [facility] [address] [place] [address] 11/14/2024 Shivam Sutton 34 weeks gestation o f Z3A.34 ; Encounter for supervision of other normal , third trimester Z34.83 and labor without delivery O60.00 [facility] [address] [facility] [address] [place] [address] 11/23/2024 Shivam Sutton Other specified screening Z36.89 [facility] [address] [facility] [address] [place] [address] 11/28/2024 Georgie Perez Encounter for supervision of other normal , third trimester Z34.83 and 36 weeks gestation of Z3A.36 [facility] [address] [facility] [address] [place] [address] 11/30/2024 Shivam Sutton 36 weeks gestation o f Z3A.36 ; Encounter for supervision of other normal , third trimester Z34.83 and Uterine contractions O47.9 [facility] [address] [facility] [address] [place] [address] 12/05/2024 Shivam Sutton 37 weeks gestation o f Z3A.37 and Encounter for supervision of other normal , third trimester Z34.83 [facility] [address] [facility] [address] [place] [address] 07/24/2024 Leah Acosta Encounter for supervision of other normal , second trimester Z34.82 ; 17 weeks gestation of Z3A.17 ; Bruising T14.8XXA ; Chronic anemia D64.9 ; History of delivery Z98.891 ; Request for sterilization Z30.2 ; History of hemorrhage Z87.59 ; Gene mutation Z15.89 ; Hx of hepatic disease Z87.19 and Excessive vomiting O21.9 [facility] [address] [facility] [address] [place] [address] 12/27/2024 Shivamorlando Sutton Encounter for routin e follow-up Z39.2 and Encounter for screening for maternal depression Z13.32 [facility] [address] [facility] [address] [place] [address] 06/20/2025 Shivam Sutton Endometriosis N80.9 ; Pelvic pain R10.2 ; ELIZABETH (stress urinary incontinence, female) N39.3 and Endometrioma N80.129 [facility] [address] [facility] [address] [place] [address] 08/22/2024 Leah Acosta Encounter for supervision of other normal , second trimester Z34.82 [facility] [address] [facility] [address] [place] [address] 09/18/2024 Lani Gould Encounter for other screening follow-up Z36.2 [facility] [address] [facility] [address] [place] [address] 11/01/2024 Georgie Perez Encounter for supervision of other normal , third trimester Z34.83 [facility] [address] [facility] [address] [place] [address] 06/20/2025 Shivam Sutton Pelvic pain R10.2 [facility] [address] [place] [address] 12/10/2024 Shivam Herman Assessments Encounter Date Diagnosis (ICD Code) Assessment [...] Nausea and vomiting in Plan Of Treatment Next Appt Details Provider Name:Chelita Jackson , 08/13/2025 08:45:00 AM, [address], [address], Provider Name:Chelita Jackson , 08/20/2025 09:00:00 AM, [address] , [place], [address], Provider Name:Chelita Jackson , 09/12/2025 11:15:00 AM, [address] , [address], [place], [address], Insurance Providers Payer Name Payer Address Payer Phone Subscriber Number Group Number Insured Name Patient Relationship to Insured Coverage Start Date Coverage End Date [facility] [address] [address] [place], [place] [id number] Rocio Kovacs Self - patient is the [...]
--- OUTSIDE RECORDS SUMMARY | 2025-07-11 18:06 | XMS_ITS | Data Portability ---
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 The patient also complains [...] __ __ __ __ __ _ JOE: [id number] I have reviewed patient's JOE report prior to prescribing Schedule II, III, and IV medications that require review by law. [email or web address] Not available 12/17/2022 12:55:12 01/22/2023 01/22/2023 The [...] __ __ __ __ __ _ JOE: [id number] I have reviewed patient's JOE report prior to prescribing Schedule II, III, and IV medications that require review by law. [email or web address] Not available 01/22/2023 13:01:57 Plan of Treatment Reminders Order Date Submit Date Provider Last Modified By Organization Details Last Modified Time Details Appointments None recorded. Lab None recorded. Referral None recorded. Procedures medial branch block, thoracic (PROC) - 42440, 12160 bilateral T9-T11 2022 023 [email or web address] Not available 3 15:54:30 injection , trigger point (PROC) - 71096, 02424 bilateral thoracic region including longissim us thoracis, thoracis spinalis and rhomboid muscles 2022 023 [email or web address] Not available 3 15:03:18 Surgeries None recorded. Imaging XR, cervical spine 2022 023 [email or web address] Not available 3 13:45:07 Medication Orders tizanidin e 4 mg tablet 2022 023 [facility], [address] [place] [address], [id number], 3 22:28:06 Patient TargetsNo targets recorded. Patient InstructionsNo instructions recorded. Reason for Referral None Reported. Problems Name Problem SNOMED Code Status Onset Date Resolution Date Notes Provider Name and Address Organization Details Recorded Time Neck pain 17563341 Active 2022 Not Available [facility] 3 14:05:10 Spinal stenosis in cervical region 08444673 Active 2022 Not Available [facility] 3 14:05:10 Lumbar spondylosi s 976966111 Active 2022 Not Available [facility] 3 14:05:09 Thoracic spondylosi s 271944656 Active 2022 Not Available [facility] 3 14:05:10 Myofascial pain 322518518 Active 2022 Not Available [facility] 3 14:05:09 Dextroscol iosis 3952635604567 01 Active 2022 Not Available [facility] 3 14:05:10 Pain in pelvis 25410471 Active 2022 Not Available [facility] 3 14:05:09 History of endometrio sis 3735442435413 4107 Active 2022 Not Available [facility] 3 14:05:09 Pain in thoracic spine 068845006 Active 2022 Not Available [facility] 3 14:05:09 Problem Notes None recorded. Procedures Surgical History Date Name Laterality Status Provider Name and Address Organization Details Recorded Time tonsilectom y/adenoids completed [facility] Mona WANG [facility] & [place] 12/11/2022 11:34:45 Imaging Results None recorded. Procedure Notes None recorded. Medical Equipment None Reported. Allergies Allergen ID Allergen Name Allergen Category Reaction Reaction Severity Criticality Documentation Date Start Date Code Code System Note Provider Name and Address Organization Details Recorded Time 26514 latex environme nt,medica tion Not available Not available Not available 12/11/2022 11800 91 RxNorm [facility] [place] 3 11:33:33 69843 Substance with sulfonami de structure and antibacte rial mechanism of action (substanc e) medicatio n Not available Not available Not available 12/11/2022 23925 8003 SNOMED [facility] & [place] 3 11:33:38 Medications Name Sig Start Date [...] ONE TABLET BY MOUTH [facility] THE same timeS each DAY [...] Address Organization Details Last Updated DateTime 3 28847.3 7 g 97.1 [degF] 99 % 99 % 67 /min 126/73 mm[Hg] Michelle Rangel [facility] & [place] 3 11:41:58 Date Recorded Body height Body mass index (BMI) Body weight Body temperature Oxygen saturation Oxygen saturation in Arterial blood by Pulse oximetry Heart rate Respiratory rate Systolic And Diastolic Provider Name and Address Organization Details Last Updated DateTime 3 175.26 cm 24.9 kg/m2 05788.6 7 g 97.1 [degF] 100 % 100 % 80 /min 20 /min 113/72 mm[Hg] Ignacia Faust [facility] & [place] 3 11:52:15 Social History None recorded. Functional Status None recorded. Mental Status None recorded. Family History Relationship Description Onset Age of this Age Resolved Age Notes LastModified by Organization Details LastModified Time Mother Malignant neoplastic disease CHART_MERGE Not available 03/27 14:05:07 Father Hypertensive disorder CHART_MERGE Not available 03/27 14:05:08 Medical History Condition Response Coronary Artery Disease N None N Gout N Head Trauma/Injury N Hernia N Thyroid Problems N Depression N COPD N Anemia N Ulcers N Heart Attack (AK) N Anxiety Disorder Y Diabetes N Bleeding Disorder N Arthritis N Tuberculosis N AIDS/HIV N Acid Reflux (GERD) Y Cancer N Stroke N Asthma N Substance Abuse N Back Injury N High Cholesterol N Hepatitis N Liver Disease N Heart Disease N Fibromyalgia N Headaches N Hypertension N Osteoporosis N Kidney Disease N Gynecological HistoryNo gynecological history recorded. Obstetrics History GPAL:G 0 P 0 0 0 0 Past Encounters Encounter ID Performer Location Encounter Start Date Encounter Closed Date Diagnosis/Indication Diagnosis SNOMED-CT Code Diagnosis ICD10 Code Diagnosis IMO Codes Diagnosis Note [id number] Robinson Springer MD [facility] [address] [facility] [place] [address] 12/17/2022 11:23:48 12/17/2022 12:06:58 Neck pain 24548271 M54.2 Spinal venita nosis in cervical region 11838651 M99.51 Lumbar spondylosis 96725 0009 M47.816 Myofascial pain 84113953 9 M79.10 Thoracic spondylosis 387 600990 M47.814 Dextroscoliosis 56048487 01 68261 M41.9 Pain in pelvis 34068002 R10.2 History of endometriosis 3144482763 2550374 Z87.42 Pain in th oracic spine 170898665 M54.6 Spinal enthesopathy 1031 7009 M46.04 [id number] SAIDA DEL REAL PA-C [facility] [address] [facility] [address] [place] [address] 01/22/2023 11:36:10 01/22/2023 12:03:48 Spinal enthesopathy 26097460 M46.04 Spinal venita nosis in cervical region 26706206 M99.51 Thoracic spondylosis 387 474842 M47.814 Myofascial pain 31627341 9 M79.10 Neck pain 46108010 M54.2 Lumbar spondylosis 45982 0009 M47.816 Dextroscoliosis 46583680 01 69113 M41.9 Pain in pelvis 87346685 R10.2 History of endometriosis 9122102300 6977437 Z87.42 Pain in th oracic spine 058289101 M54.6 Health Concerns Section Related Observation LastModified by Organization Detai ls LastModified Time None Recorded Concern Status LastModified by Organization Details LastModified Time None Recorded Advance Directives Directive None Recorded Payers Insurance Date Sequence Insurance Name Policy Number Policy Interiano Covered Member ID Interiano Member ID Guarantor Name 04/15/2024 1 [place] [facility] [place] [id number] Maia Kovacs [id number] Maia Kovacs 11/25/2021 1 [facility] [id number] Nolan Kovacs [id number] Maia Burleigh 12/17/2022 1 [facility] [id number] Nolan Bermudezchie [id number] Maia Kovacs Notes Date Note Type Note [...] Surgery: none Imaging/Studies: none Robinson Springer MD [address], [place], [address], [facility] - [place] & [place] 12/17/2022 22:28:10 3 text/html ROS as noted [...] relationships, and walking.Current Pain Medications: Tizanidine 4mg [id number] Pain Medications: Reports being on intermittent opioids hydrocodone/a Pap and gabapentin 100 mgNSAIDS/OTC: mildly helpfulNon-interventiona l Tx: TENS unitPhysical Therapy: at home exercises/stretchesInter ventional Tx: Reports Thoracic rhizotomy in 2008, LRFA March 2020Surgery: noneImaging/Studies: none SAIDA DEL REAL PA-C [address] , [place], [address], [facility] - [place] & [place] 01/22/2023 13:03:04 OBGyn Episode No OBEpisode recorded.
--- OUTSIDE RECORDS SUMMARY | 2025-07-11 18:06 | XMS_ITS | Clinical Summary ---
Author Organization [facility] Address [address], [address] [place] [address] Care Team Providers Care Infrastructure Analyst Name Role Phone Carmen Juan APRN - BATHHOUSE KEEPER Primary Care Provider Allergies Active Allergy Reactions [...] on file Medical Devices Implanted Type Area Fashion Design Professor Device Identifier Shelf Expiration Date Model / Serial / Lot Jaw Screw Screw/Pl ate/Nail /Alban Left: Mandible Description:MRI compatible Insurance [facility] [place] [id number] Advance Directives * Full Code (Latest Code Status on File) Date Activated Date Inactivated Comments 12/10/2018 3:14 AM 12/10/2018 9:58 PM * Full Code Date Activated Date Inactivated Comments 10/08/2018 12:42 AM 10/09/2018 3:48 PM Care Teams Infrastructure Analyst Relationship Specialty Start Date End Date Carmen Juan APRN - NP [facility] [address] [place] [address] PCP - General 07/22/20
[2025-07-11 18:12] LABS: Bacteria,Urine 4+ /lpf; Squamous Epithelial Cell,Urine Occasional #/hpf (0-5); WBC,Urine 50-100 #/hpf (0-3)
--- NOTE | 2025-07-11 18:12 | CT_ITS ---
PROCEDURE INFORMATION: Exam: CT Abdomen And Pelvis With Contrast Exam date and time: 07/11/2025 7:13 PM Age: 35 years old Clinical indication: Nausea and vomiting; Abdominal pain; Additional info: Pain/n/v/d TECHNIQUE: Imaging protocol: Computed tomography of the abdomen and pelvis with contrast. Radiation optimization: All CT scans at this facility use at least one of these dose optimization techniques: automated exposure control; mA and/or kV adjustment per patient size (includes targeted exams where dose is matched to clinical indication); or iterative reconstruction. Contrast material: ISOVUE; Contrast volume: 75 ml; Contrast route: IV; COMPARISON: CT ABDOMEN PELVIS WO CON 02/23/2025 3:49 PM FINDINGS: Lungs: Lung bases are clear. Liver: Normal. No mass. Gallbladder and biliary ducts: Status post cholecystectomy. No evident bile duct dilatation allowing for prior cholecystectomy. Pancreas: Normal. No ductal dilation. Spleen: Normal. No splenomegaly. Adrenal glands: Normal. No mass. Kidneys and ureters: Normal. No hydronephrosis. Stomach and bowel: Scattered mildly fluid distended small bowel loops in the abdomen and pelvis and fluid throughout the colon compatible with gastroenteritis with associated diarrheal component. Appendix: Appendix is normal. No evidence of appendicitis. Intraperitoneal space: Unremarkable. No free air. No significant fluid collection. Vasculature: Unremarkable. No abdominal aortic aneurysm. Lymph nodes: Unremarkable. No enlarged lymph nodes. Urinary bladder: Unremarkable as visualized. Reproductive: 16 mm cyst left ovary compatible with physiologic cyst. No follow-up advised. Bones/joints: Unremarkable. No acute fracture. Soft tissues: Unremarkable. IMPRESSION: Scattered mildly fluid distended small bowel loops in the abdomen and pelvis and fluid throughout the colon compatible with gastroenteritis with associated diarrheal component.
[2025-07-11] MEDS: 0.9 % SODIUM CHLORIDE 1000ML 1,000 ML 999 ML IV (18:17)
[2025-07-11] MEDS: ONDANSETRON 4MG/2ML VIAL 4 MG IV (18:18)
[2025-07-11 18:23] LABS: Hematocrit 37.9 % (37.0-47.0); Hemoglobin 12.3 g/dL (12.2-16.2); Immature Granulocytes % 1.0 %; Mean Corpuscular HGB Conc 32.5 g/dL (31.8-35.4); Mean Corpuscular Hemoglobin 28.4 pg (27.0-31.2); Mean Corpuscular Volume 87.5 fl (81-99); Nucleated Red Blood Cells % 0 %; Platelet Count 300 K/mm3 (142-424); Red Blood Count 4.33 M/mm3 (4.20-5.40); Red Cell Distribution Width-SD 42.6 fL; White Blood Count 7.7 K/mm3 (4.8-10.8)
[2025-07-11 18:31] LABS: Amphetamine/Metha Screen,Urine Negative ng/ml (<1000)
[2025-07-11 18:32] LABS: Barbiturates Screen,Urine Negative ng/ml (<200)
[2025-07-11 18:33] LABS: Benzodiazepines Screen,Urine Negative ng/ml (<200)
[2025-07-11 18:37] LABS: Methadone Screen,Urine Negative ng/ml (<300); Opiate Screen,Urine Negative ng/ml (<300)
[2025-07-11 18:38] LABS: Phencyclidine Screen,Urine Negative ng/ml (<25)
[2025-07-11 18:44] LABS: Albumin Level 4.4 g/dl (3.5-5.0); Chloride 103 mmol/L (98-107); Potassium 3.4 mmoL/L (3.5-5.1); Sodium 140 mmol/L (136-145)
[2025-07-11 18:46] LABS: Blood Urea Nitrogen 7 mg/dl (7-17); Creatinine Clearance Estimated 153 mL/min (50-200); Creatinine,Serum 0.60 mg/dl (0.52-1.04); Estimated Glomerular Filt Rate 115 ml/min (>60); GFR (African American) 139 ML/MIN (>60)
[2025-07-11 18:47] LABS: Alanine Aminotransferase 15 U/L (12-78); Albumin/Globulin Ratio 1.3 (1.1-1.8); Alkaline Phosphatase 101 U/L (38-126); Anion Gap 14.4 mEq/L (5-15); Aspartate Amino Transferase 25 U/L (14-36); Bilirubin,Total 0.2 mg/dl (0.2-1.3); Calcium 8.6 mg/dl (8.4-10.2); Carbon Dioxide 26 mmol/L (22.0-30.0); Globulin 3.3 g/dL (1.3-3.2); Glucose 84 mg/dl (74-100); Lipase 20 U/L (23-300); Total Protein,Serum 7.7 g/dl (6.3-8.2)
[2025-07-11 18:48] LABS: Magnesium 2.1 mg/dl (1.6-2.3)
[2025-07-11 18:54] LABS: HCG Qualitative, Serum Negative (Negative)
[2025-07-11] MEDS: SODIUM CHLORIDE 0.9% 10ML SYR (RAD ONLY) 10 ML IV (19:12)
[2025-07-11] MEDS: IOPAMIDOL-370 (76%);100ML BOTTLE 75 ML IV (19:12)
[2025-07-11] MEDS: PHENAZOPYRIDINE 200MG TABLET 200 MG PO (20:19)
[2025-07-11] MEDS: SODIUM CHLORIDE 0.9% 25ML BAG 25 ML IV (20:20)
[2025-07-11 20:28] VITALS: BP 137/79; PULSE 65; RESP 16; TEMP 36.8; O2SAT 98
[2025-07-11 20:31] VITALS: BP 124/68; PULSE 78; RESP 16; TEMP 37.2; O2SAT 100
--- NOTE | 2025-07-13 05:33 | PC.NURSE ---
Prelim UC Gram Negative Rods, prescribed Macrobid. Okay per Dr. Camacho
--- NOTE | 2025-07-13 08:23 | PC.NURSE ---
Urine culture results- patient prescribed Macrobid, which is appropriate. No further action required at this time.
== END 2025-07-11 20:32 | disposition home or self-care (01) ==
PROVIDERS: Nurse Practitioner Family; Emergency Provider Student in an Organized Health Care Education/Training Program; PCP Nurse Practitioner Family
DX: R10.84 Generalized abdominal pain (principal); N39.0 Urinary tract infection, site not specified; K52.9 Noninfective gastroenteritis and colitis, unspecified; R11.2 Nausea with vomiting, unspecified; B96.20 Unspecified Escherichia coli [E. coli] as the cause of diseases classified elsewhere
CPT/HCPCS: 74177; 80053; 80307; 81001; 83690; 83735; 84703; 85025; 87086; 87088; 87186; 96361; 96365; 96375; 99285; J0696; J2405; J2550; J7030; Q9967

== ENCOUNTER 2025-08-05 12:22 | Emergency (ER) | payer OTHER, SELFPAY ==
--- OUTSIDE RECORDS SUMMARY | 2020-07-18 04:23 | XMS_ITS | Continuity of Care Document ---
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 [address], [place], [place], [id number] , [place]. 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 [address], [place], [place], [address] , [place]. tel:[phone] Family History Family Member Type Diagnosis Age [...]
[2025-08-05] VITALS (8 sets, daily range): BP systolic 99–125; BP diastolic 64–81; PULSE 69–94; RESP 15–20; TEMP 36.4–36.7; O2SAT 97–100; BMI 22.8
--- OUTSIDE RECORDS SUMMARY | 2025-08-05 12:43 | XMS_ITS | CCD ---
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
--- OUTSIDE RECORDS SUMMARY | 2025-08-05 12:43 | XMS_ITS | Clinical Summary ---
Author Organization [facility] Address [address] [place] [address] Care Team Providers Care Buggyman Name Role Phone SousaMichaela sheehan Juani KING Primary Care Provider [phone] Allergies Active Allergy Reactions Criticality Noted Date [...] or split. 30 tablet 3 Active B Baltehd-Nienca-LR (B Complete) tablet Active pantoprazole (ProtoNix) 20 [...] declined 02/25/2023 How often do you attend religious or rastafari serv ices? Patient declined 02/25/2023 Do you belong to any clubs o r organizations such as religious groups, unions, fraternal or athletic groups, or [...] Recorded Patient Health Questionnaire-2 Score 4 03/01/2023 [facility] [...] drink first t donovan in the morning (EYE-PAYROLL ASSOCIATE) to steady your nerves or to get [...] Vaccines (1 - 3-dose SCDM series) 2019 [id number] Vaccine (3 - Pfizer risk series) 06/04/2021 [...] Historical Provider LAB BLOOD ORDERABLES Final R [employer] [place] Performing Organization Address [facility] Co de Phone Number SUNQUEST * HIV 1 & 2 Antibody/Antigen Screen (12/18/2017 5:52 AM EDT) HIV 1 Result NONREACTIVE Screening for HIV 1 and 2 antibodies is NONREACTIVE. No confirmatory testing is required. SUNQUEST 12/18/2017 5:52 AM EDT 12/18/2017 6:28 AM EDT Historical Provider LAB BLOOD ORDERABLES Final R esult Performing Organization Address City/State/[facility] Co de Phone Number SUNQUEST from Last 3 Months or Most Recently Relevant to Health Maintenance Insurance ANDRES Care Teams Buggyman Relationship Specialty Start Date End Date Michaela Sousa APRN [address] [place] [address] PCP - General 07/24/21
--- OUTSIDE RECORDS SUMMARY | 2025-08-05 12:43 | XMS_ITS | Encounter Summary ---
Author Organization [facility] Address [address] [place] [address] Care Team Providers Care Fieldwork Coordinator Name Role Phone Lars Michaela KING Primary Care Provider + [phone] Reason for Visit * Reason Comments Med Refill Encounter Details Date Type Department Care Team (Late st Contact Info) Description 07/27/2025 Refill [facility] [address] [address] Aminata Nassar MD [address] [place] [address] Hyperemesis gravidarum Social History Tobacco Use Types Packs/Day Years Used Date Smoking Tobacco: Never Passive Smoke Exposure: Never Smokeless Tobacco: Never Alcohol Use Standard Drinks/Week Comments No 0 (1 standard drink = 0.6 oz pur e alcohol) [facility] Utilities Answer Date Recorded In the past 12 months has [employer], gas, oil, or water [employer] threatened to shut off services in your [...] Date Recorded Retired Total Score 0 05/07/2021 [facility] Occupat ional [facility] - Occupational Stress Questionnaire Answer [...] things needed for daily living? No 12/10/2024 [place] Depression Scale Answer Date Recorded [place] Depression Scale Total 2 12/22/2024 The thought [...] GED or equivalent No 12/10/2024 Preferred Language Danish 12/10/2024 PHQ-2 Answer Date Recorded Patient Health [...] Telephone Encounter - Fatimah Sy MA - 07/27/2025 8:03 AM EDT Rx Refill Note Requested Prescriptions Pending Prescriptions Disp Refills ondansetron ODT (ZOFRAN-ODT) 4 MG disintegrating tablet [Pharmacy Med Name: ondansetron 4 mg disintegrating tablet] 270 tablet 3 Sig: DISSOLVE 2 TABLETS UNDER THE TONGUE EVERY 8 HOURS NEEDED FOR NAUSEA AND VOMITING Last office visit with prescribing clinician: 08/03/2024 Last telemedicine visit with prescribing clinician: Visit date not found Next office visit with prescribing clinician: 10/31/2025 Fatimah Sy MA 07/27/25, 08:03 EDT documented in this encounter Plan of Treatment Upcoming Encounters Date Type Department Care Team (Late st Contact Info) Description 08/13/2025 10:30 AM EST Pre-Admission Testing [facility] PREADMISSION T [address] [place] [address] 08/20/2025 8:54 AM EST Hospital Encounter [facility] OR [address] [place] [address] Chelita Jackson MD [address] [address] 08/20/2025 8:54 AM EST - 08/20/2025 10:47 AM EST Surgery [facility] OR [address] [place] [address] Chelita Jackson MD [address] [address] TOTAL ROBOTIC HYSTERCETOMY BILATERAL SALPINGO-OOPHRECTO MY 10/31/2025 3:15 PM EST Office Visit [facility] [address] [address] MadayAminata MD [address] [address] Scheduled Procedures Name Priority Associated Diagnoses Date/Ti me TOTAL LAPAROSCOPIC HYSTERECT JIGAR BILATERAL SALPINGOOPHORECTOMY WITH DAVINCI ROBOT 08/20/2025 8:[address] documented as of this encounter Visit Diagnoses Diagnosis Hyperemesis gravidarum Mild hyperemesis gravidarum, unspecified as to episode of care documented in this encounter Additional Health Concerns Infection Onset Date Last Indicated Resolved Time COVID (History) Comment:Per regional care professional for Oswaldo Campos, 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 The last day before reporting a new confirmed COVID-19 would be 12/08/20. -Alida Banda RN 09/09/2020 12/25/2020 documented as of this encounter Care Teams Fieldwork Coordinator Relationship Specialty Start Date End Date Michaela Sousa APRN [address] [place] [address] [place] [address] PCP - General Internal Medicine 09/04/24 documented as of this encounter
--- OUTSIDE RECORDS SUMMARY | 2025-08-05 12:43 | XMS_ITS | Encounter Summary ---
Author Organization [facility] Address [address] [place] [address] Care Team Providers Care Laborer Pullet Farm Name Role Phone Michaela Sousa APRN Primary Care Provider + [phone] Encounter Details Date Type Department Care Team (Late st Contact Info) Description 07/23/2025 Prep for Surgery [facility] ORDERS ONLY [address] [place] [address] Chelita Jackson MD [address] [facility] [address] [place], [place] [id number] Endometriosis determined by laparoscopy (Primary Dx) Social History Tobacco Use Types Packs/Day Years Used Date Smoking Tobacco: Never Passive Smoke Exposure: Never Smokeless Tobacco: Never Alcohol Use Standard Drinks/Week Comments No 0 (1 standard drink = 0.6 oz pur e alcohol) [facility] Utilities Answer Date Recorded In the past 12 months has I AM AT, oil, or water An[employer]is threatened to shut off services in your [...] Date Recorded Retired Total Score 0 05/07/2021 [facility] [place] of Occupat ional Health - Occupational Stress [...] things needed for daily living? No 12/10/2024 [place] Depression Scale Answer Date Recorded [place] Depression Scale Total 2 12/22/2024 The [...] GED or equivalent No 12/10/2024 Preferred Language Congolese 12/10/2024 PHQ-2 Answer Date Recorded Patient Health [...] Description 08/13/2025 10:30 AM EST Pre-Admission Testing [facility] PREADMISSION T [address] [place] [address] 08/20/2025 8:54 AM EST Hospital Encounter [facility] OR [address] [place] [address] Chelita Jackson MD [address] [address] 08/20/2025 8:54 AM EST - 08/20/2025 10:47 AM EST Surgery [facility] OR [address] [place] [address] Chelita Jackson MD [address] [address] TOTAL ROBOTIC HYSTERCETOMY BILATERAL SALPINGO-OOPHRECTO MY 10/31/2025 3:15 PM EST Office Visit [facility] [address] [facility] [address] [place] [address] MadayAminata MD [address] [address] Scheduled Orders Name Type Priority Associated Diagnoses Orde r Schedule CBC and Differential Lab Panel Routine Endometriosis determined by laparoscopy Expected: 07/28/2025 (Approximate), Expires: 07/23/2026 Urinalysis With Culture If Indicated - Lab Routine Endometriosis determined by laparoscopy Expected: 07/23/2025 (Approximate), Expires: 07/23/2026 Scheduled Procedures Name Priority Associated Diagnoses Date/Ti me TOTAL LAPAROSCOPIC HYSTERECT JIGAR BILATERAL SALPINGOOPHORECTOMY WITH DAVINCI ROBOT 08/20/2025 8:[address] documented as of this encounter Visit Diagnoses Diagnosis Endometriosis determined by laparoscopy- Primary documented in this encounter Additional Health Concerns Infection Onset Date Last Indicated Resolved Time COVID (History) Comment:Per regional professional poker player for [facility], 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 The last day before reporting a new confirmed COVID-19 would be 12/08/20. -Alida Banda RN 09/09/2020 12/25/2020 documented as of this encounter Care Teams Laborer Pullet Farm Relationship Specialty Start Date End Date Michaela Sousa APRN [address] [place] [address] [facility] [facility] [address] PCP - General Internal Medicine 09/04/24 documented as of this encounter
--- OUTSIDE RECORDS SUMMARY | 2025-08-05 12:44 | XMS_ITS | Clinical Summary ---
Author Organization [facility] Address [address] [place] [address] Care Team Providers Care Cloth Doubling Machine Operator Name Role Phone Nonstaff, Referring Primary Care Provider [phone]- [phone] Johnnie Shearer MD Unavailable [phone] Allergies Active Allergy Reactions Criticality Noted Date [...] 40 mg by mouth daily. Active Coenzyme C52-Wuafghs E 100-5 mg-unit Capsule Take 400 mg [...] Relation to Subscriber:Self Name:Maia Kovacs Payer ID:[id number] ([facility]) Type:PPO Address: [facility] [id number] [place] [id number] Care Teams Cloth Doubling Machine Operator Relationship Specialty Start Date End Date Nonstaff, MD [place] [address] [place] [address] PCP - General 02/16/23 Johnnie Shearer MD [address] [place], [place] [id number] Gastroenterology 02/16/23
--- OUTSIDE RECORDS SUMMARY | 2025-08-05 12:44 | XMS_ITS | Clinical Summary ---
Author Organization [facility] Address [address] [place] [address] Care Team Providers Care Plate Developer Name Role Phone Carmen Juan APRN - [...] on file Medical Devices Implanted Type Area Whey Department Operator Device Identifier Shelf Expiration Date Model / Serial / Lot Jaw Screw Screw/Pl ate/Nail /Alban Left: Mandible Description:MRI compatible Insurance [facility] [place] [id number] Advance Directives * Full Code (Latest Code Status on File) Date Activated Date Inactivated Comments 12/10/2018 3:14 AM 12/10/2018 9:58 PM * Full Code Date Activated Date Inactivated Comments 10/08/2018 12:42 AM 10/09/2018 3:48 PM Care Teams Plate Developer Relationship Specialty Start Date End Date Carmen Juan APRN - NP [facility] [address] [place] [address] PCP - General 07/22/20
--- OUTSIDE RECORDS SUMMARY | 2025-08-05 12:44 | XMS_ITS | Encounter Summary ---
Author Organization [facility] Address [address] [place] [address] Care Team Providers Care Sorter Operator Name Role Phone LarsSoraidarebekah KING Primary Care Provider + [phone] Reason for Visit * Reason Onset Date Comments Med Refill 05/31/2025 Encounter Details Date Type Department Care Team (Late st Contact Info) Description 05/31/2025 Refill [facility] GASTROENTEROLOGY [address] [phone] Aminata Nassar MD [address] [place] [address] Hyperemesis gravidarum Social History Tobacco Use Types Packs/Day Years Used Date Smoking Tobacco: Never Passive Smoke Exposure: Never Smokeless Tobacco: Never Alcohol Use Standard Drinks/Week Comments No 0 (1 standard drink = 0.6 oz pur e alcohol) [facility] Utilities Answer Date Recorded In the past 12 months has [employer], gas, oil, or water [employer] threatened to shut off services in your [...] things needed for daily living? No 12/10/2024 [place] Depression Scale Answer Date Recorded [place] Depression Scale Total 2 12/22/2024 The thought [...] GED or equivalent No 12/10/2024 Preferred Language Argentine 12/10/2024 PHQ-2 Answer Date Recorded Patient Health [...] 6:18 PM EDT Jody Gauthier, DEEPAK * [place] Suicide Severity Rating Scale (Screener/Recent Self-Report) Question [...] Description 08/13/2025 10:30 AM EST Pre-Admission Testing [facility] PREADMISSION T [address] [place] [address] 08/20/2025 8:54 AM EST Hospital Encounter [facility] OR [address] [place] [address] Chelita Jackson MD [address] [facility] [address] [place] [address] 08/20/2025 8:54 AM EST - 08/20/2025 10:47 AM EST Surgery [facility] OR [address] [place] [address] Chelita Jackson MD [id number] [place] [address] TOTAL ROBOTIC HYSTERCETOMY BILATERAL SALPINGO-OOPHRECTO MY 10/31/2025 3:15 PM EST Office Visit [facility] [address] [facility] [address] [place] [address] Aminata Nassar MD [address] [place] [address] Scheduled Procedures Name Priority Associated Diagnoses Date/Ti me TOTAL LAPAROSCOPIC HYSTERECT JIGAR BILATERAL SALPINGOOPHORECTOMY WITH DAVINCI ROBOT 08/20/2025 8:[address] documented as of this encounter Visit Diagnoses Diagnosis Hyperemesis gravidarum Mild hyperemesis gravidarum, unspecified as to episode of care documented in this encounter Additional Health Concerns Infection Onset Date Last Indicated Resolved Time COVID (History) Comment:Per regional washing machine repairer for [employer], 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 The last day before reporting a new confirmed COVID-19 would be 12/08/20. -Alida Banda RN 09/09/2020 12/25/2020 Rhinovirus 05/15/2025 05/15/2025 06/14/2025 9:08 PM EDT documented as of this encounter Care Teams Sorter Operator Relationship Specialty Start Date End Date Michaela Sousa APRN [address] [address] PCP - General Internal Medicine 09/04/24 documented as of this encounter
--- OUTSIDE RECORDS SUMMARY | 2025-08-05 12:44 | XMS_ITS | Encounter Summary ---
Author Organization [facility] Address [address] [place] [address] Care Team Providers Care Media Reconciliation Specialist Name Role Phone Michaela Sousa APRN Primary Care Provider + [phone] Encounter Details Date Type Department Care Team (Late st Contact Info) Description 06/06/2025 Telephone [facility] GASTROENTEROLOGY [address] [address] Aminata Nassar MD [address] [address] Social History Tobacco Use Types Packs/Day Years Used Date Smoking Tobacco: Never Passive Smoke Exposure: Never Smokeless Tobacco: Never Alcohol Use Standard Drinks/Week Comments No 0 (1 standard drink = 0.6 oz pur e alcohol) [facility] Utilities Answer Date Recorded In the past 12 months has [employer], [employer], oil, or water [employer] threatened to shut off services in your [...] Date Recorded Retired Total Score 0 05/07/2021 [facility] Occupat ional [facility] - Occupational Stress [...] things needed for daily living? No 12/10/2024 [place] Depression Scale Answer Date Recorded [place] Depression Scale Total 2 12/22/2024 The thought [...] her to be scheduled in July in [facility] for colon. She said July but I do not see it in [facility] she has been scheduled for this. [...] Description 08/13/2025 10:30 AM EST Pre-Admission Testing [facility] PREADMISSION T [address] [place] [address] 08/20/2025 8:54 AM EST Hospital Encounter [facility] OR [address] [phone] Chelita Jackson MD [address] [address] 08/20/2025 8:54 AM EST - 08/20/2025 10:47 AM EST Surgery [facility] OR [address] [place] [address] Chelita Jackson MD [address] [address] TOTAL ROBOTIC HYSTERCETOMY BILATERAL SALPINGO-OOPHRECTO MY 10/31/2025 3:15 PM EST Office Visit [facility] GASTR[facility] [address] [phone] MadayAminata MD [address] [address] Scheduled Procedures Name Priority Associated Diagnoses Date/Ti me TOTAL LAPAROSCOPIC HYSTERECT JIGAR BILATERAL SALPINGOOPHORECTOMY WITH DAVINCI ROBOT 08/20/2025 8:[address] documented as of this encounter Visit Diagnoses Not on filedocumented in this encounter Additional Health Concerns Infection Onset Date Last Indicated Resolved Time COVID (History) Comment:Per regional special programs director for [employer], 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 The last day before reporting a new confirmed COVID-19 would be 12/08/20. -Alida Banda RN 09/09/2020 12/25/2020 Rhinovirus 05/15/2025 05/15/2025 06/14/2025 9:08 PM EDT documented as of this encounter Care Teams Media Reconciliation Specialist Relationship Specialty Start Date End Date Michaela Sousa APRN [address] [place] [address] PCP - General Internal Medicine 09/04/24 documented as of this encounter
--- OUTSIDE RECORDS SUMMARY | 2025-08-05 12:44 | XMS_ITS | Referral Summary ---
Author Organization [facility] ([place], [place], [place], [place], [place]) Address [address] [place] [address] Care Team Providers Care Director Payment Name Role Phone Unavailable Primary Care Provider [...] Advance Directives For more information, please contact: [phone] * Full Code (Latest Code Status on File) Date Activated Date Inactivated Comments 11/11/2022 7:28 AM 11/11/2022 12:16 PM
--- OUTSIDE RECORDS SUMMARY | 2025-08-05 12:44 | XMS_ITS | Encounter Summary ---
Author Organization [place] [address] Care Team Providers Care Head Mixer Name Role Phone Radha Ordaz LPN Unavailable Unav ailable Encounter Details Date Type Department Care Team (Late st Contact Info) Description 11/02/2018 Lab Requisition [facility] [place] [address] Wendy Emerson MD [address] [place] [phone] Other specified abnormal findings of blood [...] 19.47 mcg/dL 9 5:29 PM EST PREFERRED [employer], [employer] Blood VENOUS BLOOD / Unknown 11/02/2018 9:45 AM EST 11/02/2018 4:09 PM EST Narrative PREFERRED [employer], [employer] - 11/02/2018 5:29 PM EST Normal Peak : > 20 ug/dl Wendy Emerson MD CHEMISTRY ORDERABLES Fin al Result Performing Organization Address [facility] de Phone Number [employer] [address] [place] [address] , [place] [address] * CORTISOL 30 MINUTES (11/02/2018 9:15 AM EST) Cortisol 30 Min 17.48 mcg/dL 9 5:35 PM EST [employer] Blood VENOUS BLOOD / Unknown 11/02/2018 9:15 AM EST 11/02/2018 4:09 PM EST Narrative [facility], [employer] - 11/02/2018 5:35 PM EST Normal Peak : > 20 ug/dl Wendy Emerson MD CHEMISTRY ORDERABLES Fin al Result Performing Organization Address [facility] Phone Number [facility] [address] [facility] , [place] [address] * CORTISOL BASELINE (11/02/2018 8:40 AM EST) Cortisol Baseline 10.37 mcg/dL 11/02/2018 5:35 PM EST [facility] Blood VENOUS BLOOD / Unknown 11/02/2018 8:40 AM EST 11/02/2018 4:09 PM EST Narrative [facility] - 11/02/2018 5:35 PM EST Ingestion of jose doses of biotin (>5 mg/day) taken within 8 hours of drawing blood sample can interfere with this immunoassay test. Wendy Emerson MD CHEMISTRY ORDERABLES Fin al Result Performing Organization Address [facility] de Phone Number [facility] [address] [facility] , [place] [address] documented in this encounter Visit Diagnoses Diagnosis Other specified abnormal findings of blood chemistry documented in this encounter Additional Health Concerns Assessment Noted Time PHQ-9 Depression Total Score: 2 10/07/19 19 4:43 PM EST PHQ-2 Depression Total Score: 2 10/07/19 19 4:43 PM EST documented as of this encounter Care Teams Head Mixer Relationship Specialty Start Date End Date Radha Ordaz LPN Desktop Manager Licensed Practical Nurse 03/15/20 04/02/20 documented as of this encounter
--- OUTSIDE RECORDS SUMMARY | 2025-08-05 12:44 | XMS_ITS | CCD ---
Author Name Interface, [id number] Address [address] [place], [place] [id number] Organization [facility] Address [address] [place], [place] [id number] Care Team Providers Care Library Customer Service Clerk Name Role Phone Sukhjinder KAISER, Jens Purvis Unavailable Unavailable Reason for Visit Medications Problems Social History
--- OUTSIDE RECORDS SUMMARY | 2025-08-05 12:44 | XMS_ITS | Encounter Summary ---
Author Organization [place] [address] Care Team Providers Care Manager Video Games Name Role Phone Radha Ordaz LPN Unavailable Unav ailable Encounter Details Date Type Department Care Team (Late st Contact Info) Description 11/02/2018 Lab Requisition [facility] [place] [address] Wendy Emerson MD [address] [place] [phone] Other specified abnormal findings of blood [...] HORMONE -REF LAB (11/02/2018 8:40 AM EST) [facility] ACTH 21 6 - 58 pg/mL 11/04/2018 2:20 PM EST [employer] Comment: INTERPRETIVE INFORMATION: Adrenocorticotropic Hormone Some types of synthetic ACTH are not detected by this assay. Access complete set of age- and/or gender-specific reference intervals for this test in the [employer] [facility] Test Directory ([facility]). Performed by [facility], [address] [place] [id number] [email or web address], Robert Restrepo MD, Lab. Director Blood VENOUS BLOOD / Unknown 11/02/2018 8:40 AM EST 11/02/2018 2:17 PM EST us Wendy Emerson MD CHEMISTRY ORDERABLES Fin al Result [facility] [address] [place] [address] documented in this encounter Visit Diagnoses Diagnosis Other specified abnormal findings of blood chemistry documented in this encounter Additional Health Concerns Assessment Noted Time PHQ-9 Depression Total Score: 2 10/07/19 19 4:43 PM EST PHQ-2 Depression Total Score: 2 10/07/19 19 4:43 PM EST documented as of this encounter Care Teams Manager Video Games Relationship Specialty Start Date End Date Radha Ordaz LPN Tool Room Supervisor Licensed Practical Nurse 03/15/20 04/02/20 documented as of this encounter
--- OUTSIDE RECORDS SUMMARY | 2025-08-05 12:44 | XMS_ITS | Clinical Summary ---
Author Organization [employer] [facility] ([place], [place], [place], [place], [place]) Address [address] [place] [address] Care Team Providers Care Rn Unit Manager Name Role Phone Unavailable Primary Care [...] Date Tommie rded Speak language other than Kazakh at home Not on file 10/15/2023 Want [...] Advance Directives For more information, please contact: [phone] * Full Code (Latest Code Status on File) Date Activated Date Inactivated Comments 11/11/2022 7:28 AM 11/11/2022 12:16 PM
--- OUTSIDE RECORDS SUMMARY | 2025-08-05 12:44 | XMS_ITS | Clinical Summary ---
Author Organization [facility] Address [address] [place] [address] Care Team Providers Care Washroom Operator Name Role Phone Lars Michaela KING Primary Care Provider + [phone] Allergies Active Allergy Reactions Criticality Noted Date [...] Needed (constipatio n). 4 each 5 Active cyclobenzaprine (FLEXERIL) 10 MG tablet Take 1 tablet by mouth 3 times a day. 5 Active gabapentin (NEURONTIN) 300 MG capsule Take 1 capsule by mouth 2 (Two) Times a Day. Active pantoprazole (PROTONIX) 40 MG EC tabletIndications:H yperemesis gravidarum Take 1 tablet by mouth 2 (Two) Times a Day. 180 tablet 3 5 Active ondansetron ODT (ZOFRAN-ODT) 4 MG disintegrating tabletIndications:H yperemesis gravidarum DISSOLVE 2 TABLETS UNDER THE TONGUE EVERY 8 HOURS NEEDED FOR NAUSEA AND VOMITING 270 tablet 3 5 Active Active Problems Problem Noted Date Diagnosed Date Endometriosis determined by laparoscopy 07/23/20 25 Hematemesis 05/16/2025 S/P section 12/10/2024 Third trimester [...] (09/28/2018): Added automatically from request for surgery [id number] RLQ abdominal pain 09/22/2018 Overview (09/28/2018): Added automatically from request for surgery [id number] B12 deficiency 09/22/2018 Overview (09/28/2018): Added automatically from request for surgery [id number] Chronic anemia 09/18/2018 Narcotic habituation, continuous 09/17/2018 Anxiety disorder 05/12/2018 Vocal cord dysfunction 05/10/2018 Stridor 2018 Respiratory distress 05/07/2018 Moderate persistent asthma with acute exacerbati on 05/07/2018 Chronic nausea 05/07/2018 Epigastric abdominal pain 05/07/2018 Overview (05/12/2018): Added automatically from request for surgery [id number] Generalized abdominal pain 12/09/2017 Resolved Problems Problem Noted Date Diagnosed Date Resolved Date ROM (rupture of membranes), premature 12/10/2024 12/10/2024 Hematemesis 05/16/2022 05/18/2022 uterine contractions in third trimester, antepartum 04/24/2021 05/17/2021 Decreased movement 02/05/2021 11/20/2020 05/17/2021 Overview (11/20/2020): cfDNA Acute dehydration 12/14/2019 10/16/2020 Influenza B 12/14/2019 10/16/2020 Drug-induced constipation 09/22/2018 Overview (09/28/2018): Added automatically from request for surgery [id number] Non-cardiac chest pain 09/17/201810/16 Hypokalemia 09/17/2018 09/19/2018 Hypomagnesemia 09/17/2018 09/19/2018 Leukocytosis 05/07/2018 05/12/2018 Elevated liver enzymes 02/27/201810/16 Intractable nausea and vomiting 02/27/2018 03/01/2018 Intractable cyclical vomiting with nausea 02/27/2018 03/01/2018 Encounters Date Type Department Care Team Description 5 Refill [facility] [address] [address] Aminata Nassar MD Hyperemesis gravidarum 5 Prep for Surgery [facility] ONLY [address] [place] [address] Chelita Jackson MD Endometriosis determined by laparoscopy (Primary Dx) 5 Telephone [facility] [address] [address] Aminata Nassar MD 5 3:38 PM EDT - 5 7:10 PM EDT Emergency [facility] EM[facility] [address] [place] [address] Isiah Barkley MD Chest pain, unspecified type (Primary Dx); Generalized abdominal pain; Chronic gastritis without bleeding, unspecified gastritis type Discharge Disposition: Home or Self Care 5 Travel 5 Refill [facility] [address] [address] Aminata Nassar MD Hyperemesis gravidarum 5 Results Follow-Up [facility] [address] [place] [address] Aminata Nassar MD 5 Telephone [facility] [address] [address] Aminata Nassar MD Advice Only 5 8:00 AM EDT - 5 8:33 AM EDT Surgery [facility] [address] [place] [address] Aminata Nassar MD ESOPHAGOGASTRODUODENOSCOPY [[id number] (CPT )] 5 8:00 AM EDT Anesthesia Event [facility] [address] [place] [address] Bruno Michael MD 5 6:38 AM EDT - 5 9:25 AM EDT Hospital Encounter [facility] [address] [place] [address] Aminata Nassar MD Hematemesis, unspecified whether nausea present Discharge Disposition: Home or Self Care 5 Travel 5 Prep for Surgery [facility] [address] [place] [address] Aminata Nassar MD Hematemesis, unspecified whether nausea present (Primary Dx) 5 6:23 PM EDT - 5 10:34 PM EDT Emergency [facility] EM[facility]GENC[facility] [address] [place] [address] Isiah Barkley MD Acute abdominal pain (Primary Dx); History of peptic ulcer disease; Nausea and vomiting in adult Discharge Disposition: Home or Self Care 5 1:30 PM EDT Office Visit [facility] [address] [facility] [address] [place] [address] Leah Castillo APRN Hematemesis with [...] drink = 0.6 oz pur e alcohol) [facility] Utilities Answer Date Recorded In [...] Recorded Retired Total Score 0 05/07/2021 [facility] - Occupational [...] things needed for daily living? No 12/10/2024 Frederic Depression Scale Answer Date Recorded Frederic Depression Scale Total 2 12/22/2024 The thought [...] GED or equivalent No 12/10/2024 Preferred Language New Zealander 12/10/2024 PHQ-2 Answer Date Recorded Patient Health [...] Description 08/13/2025 10:30 AM EST Pre-Admission Testing [facility] PREADMISSION T [address] [place] [address] 08/20/2025 8:54 AM EST Hospital Encounter [facility] OR [address] [place] [address] Chelita Jackson MD [address] [address] 08/20/2025 8:54 AM EST - 08/20/2025 10:47 AM EST Surgery [facility] OR [address] [place] [address] Chelita Jackson MD [address] [address] TOTAL ROBOTIC HYSTERCETOMY BILATERAL SALPINGO-OOPHRECTO MY 10/31/2025 3:15 PM EST Office Visit [facility] [address] [facility] [address] MadayAminata jack MD [address] [address] Scheduled Procedures Name Priority Associated Diagnoses Date/Ti me TOTAL LAPAROSCOPIC HYSTERECT JIGAR BILATERAL SALPINGOOPHORECTOMY WITH DAVINCI ROBOT 08/20/2025 8:[address] Health Maintenance Due Date Last Done Comments Annual Gynecologic Pelvic an d Breast Exam 1992 Pneumococcal Vaccine 0-49 (1 of 2 - PCV) 2011 TDAP/TD VACCINES (1 - Tdap) 2011 ANNUAL PHYSICAL 12/14/2017 PAP SMEAR 10/18/2023 10/18/2020 INFLUENZA VACCINE 04/27/2025 07/15/2023, , 06/07/2018, Additional history exists HEPATITIS C SCREENING Completed 10/17/2020 , 12/08/2018, 12/10/2017 Medical Devices Implanted Type Area Paper Bundler Device Identifier Shelf Expiration Date Model / Serial / Lot Stnt Percuflx No Gw 4.8x26 - [id number] Implanted:Qty: 1 on 12/18/2022 by Raulito Lancaster MD at [facility] Stent Right: Urinary Bladder [employer] PATRICIA 08/19/2025 [id number] / / [id number] Procedures Procedure Name Priority Date/Time Associated Diagnosis [...] ANESTHESIA INTUBATION Routine 05/17/2025 8:12 AM EDT OR ESOPHAGOGASTRODUODENOSCOP Y TRANSORAL DIAGNOSTIC 05/17/2025 8:00 AM [...] EDT RESPIRATORY PANEL PCR W/ COVID-19 (SARS-COV-2), 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 Blood Line / Unknown 06/01/2025 4: 03 PM EDT 06/01/2025 4:14 PM EDT Narrative [facility] - 06/01/2025 4:45 PM EDT [...] MD LAB BLOOD ORDERABLES Kate l Result [facility]
[address] [place] [address], * POC Urine (06/01/2025 3:09 PM EDT) Only the most recent of2 resultswithin the time period is included. HCG, Urine, QL Negative [facility] Lot Number [id number] [facility] Internal Positive Control Positive [facility] Internal Negative Control Negative [facility] Expiration Date 09/13/2026 [facility] Urine 06/01/2025 3:09 PM EDT Isiah Barkley MD POINT OF CARE TEST ORDERA BLES Final Result [facility]
[address] [id number], [place] [phone] * Black Top (06/01/2025 3:06 PM EDT) Only the most recent of2 resultswithin the time period is included. Extra Tube Hold for add-ons. 06/01/2025 3:32 PM EDT [facility] Comment:Auto resulted. Blood Venipuncture / Unknown 06/01/2025 3:06 PM EDT 06/01/2025 3:25 PM EDT Isiah Barkley MD LAB BLOOD ORDER ONLY Kate l Result [facility]
[address] [place] [address], [place] [phone] * [facility] (06/01/2025 3:06 PM EDT) Only the most recent of2 resultswithin the time period is included. Extra Tube Hold for add-ons. 06/01/2025 3:32 PM EDT [facility] Comment:Auto resulted. Blood Venipuncture / Unknown 06/01/2025 3:06 PM EDT 06/01/2025 3:25 PM EDT Isiah Barkley MD LAB BLOOD ORDER ONLY Kate l Result Performing Organization Address City/[facility]/ZIP Co de Phone Number [facility]
[address] [place] [address], * Green Top (Gel) (06/01/2025 3:06 PM EDT) Only the most recent of2 resultswithin the time period is included. Pathologist [facility] Extra Tube Hold for add-ons. 06/01/2025 3:32 PM EDT [facility] Comment:Auto resulted. Blood Venipuncture / Unknown 06/01/2025 3:06 PM EDT 06/01/2025 3:25 PM EDT Isaih Barkley MD LAB BLOOD ORDER ONLY Kate l Result Performing Organization Address City/[facility]/ZIP Co de Phone Number [facility]
[address] [place] [address], * (ABNORMAL) Urinalysis, Microscopic Only - Urine, Clean Catch (06/01/2025 3:06 PM EDT) Pathologist [facility] RBC, UA 0-2 None Seen, 0-2 /HPF 06/01/2025 3:52 PM EDT [facility] WBC, UA 0-2 None Seen, 0-2 /HPF 06/01/2025 3:52 PM EDT [facility] Bacteria, UA None Seen None Seen /HPF 06/01/2025 3:52 PM EDT [facility] Squamous Epithelial Cells, UA 3-6(A) None Seen, 0-2 /HPF 06/01/2025 3:52 PM EDT [facility] Hyaline Casts, UA 0-2 None Seen /LPF 06/01/2025 3:52 PM EDT [facility] Methodology Automated Microscopy 06/01/2025 3:52 PM EDT [facility] Urine Urine specimen obtained by clean catch procedure / Unknown Collection / Unknown 06/01/2025 3:06 PM EDT 06/01/2025 3:43 PM EDT Isiah Barkley MD URINE ORDERABLES Final Re sult [facility]
[address] [place] [address], * (ABNORMAL) Urinalysis With Microscopic If Indicated (No Culture) - Urine, Clean Catch (06/01/2025 3:06 PM EDT) Color, UA Yellow Yellow, Straw 06/01/2025 3:52 PM EDT [facility] Appearance, UA Clear Clear 06/01/2025 3:52 PM EDT [facility] pH, UA 6.0 5.0 - 8.0 06/01/2025 3:52 PM EDT [facility] Specific [place], UA 1.023 1.005 - 1.030 06/01/2025 3:52 PM EDT [facility] Glucose, UA Negative Negative 06/01/2025 3:52 PM EDT [facility] Ketones, UA Negative Negative 06/01/2025 3:52 PM EDT [facility] Bilirubin, UA Negative Negative 06/01/2025 3:52 PM EDT [facility] Blood, UA Small (1+)(A) Negative 06/01/2025 3:52 PM EDT [facility] Protein, UA Negative Negative 06/01/2025 3:52 PM EDT [facility] Leuk Esterase, UA Negative Negative 06/01/2025 3:52 PM EDT [facility] Nitrite, UA Negative Negative 06/01/2025 3:52 PM EDT [facility] Urobilinogen, UA 1.0 E.U./dL 0.2 - 1.0 E.U./dL 06/01/2025 3:52 PM EDT [facility] Urine Urine specimen obtained by clean catch procedure / Unknown Collection / Unknown 06/01/2025 3:06 PM EDT 06/01/2025 3:43 PM EDT Isiah Barkley MD URINE ORDERABLES Final Re sult [facility]
[address] [place] [address], * CBC Auto Differential (06/01/2025 3:06 PM EDT) Only the most recent of2 resultswithin the time period is included. WBC 7.69 3.40 - 10.80 10*3/mm3 06/01/2025 3:31 PM EDT [facility] RBC 4.55 3.77 - 5.28 10*6/mm3 06/01/2025 3:31 PM EDT [facility] Hemoglobin 13.1 12.0 - 15.9 g/dL 06/01/2025 3:31 PM EDT [facility] Hematocrit 40.5 34.0 - 46.6 % 06/01/2025 3:31 PM EDT [facility] MCV 89.0 79.0 - 97.0 fL 06/01/2025 3:31 PM EDT [facility] MCH 28.8 26.6 - 33.0 pg 06/01/2025 3:31 PM EDT [facility] MCHC 32.3 31.5 - 35.7 g/dL 06/01/2025 3:31 PM EDT [facility] RDW 13.2 12.3 - 15.4 % 06/01/2025 3:31 PM EDT [facility] RDW-SD 43.2 37.0 - 54.0 fl 06/01/2025 3:31 PM EDT [facility] MPV 9.0 6.0 - 12.0 fL 06/01/2025 3:31 PM EDT [facility] Platelets 318 140 - 450 10*3/mm3 06/01/2025 3:31 PM EDT [facility] Neutrophil % 65.7 42.7 - 76.0 % 06/01/2025 3:31 PM EDT [facility] Lymphocyte % 22.8 19.6 - 45.3 % 06/01/2025 3:31 PM EDT [facility] Monocyte % 8.5 5.0 - 12.0 % 06/01/2025 3:31 PM EDT [facility] Eosinophil % 1.8 0.3 - 6.2 % 06/01/2025 3:31 PM EDT [facility] Basophil % 0.7 0.0 - 1.5 % 06/01/2025 3:31 PM T [facility] Immature Grans % 0.5 0.0 - 0.5 % 06/01/2025 3:31 PM [facility] Neutrophils, Absolute 5.06 1.70 - 7.00 10*3/mm3 06/01/2025 3:[facility] Lymphocytes, Absolute 1.75 0.70 - 3.10 10*3/mm3 06/01/2025 3:31 PM EDT [facility] Monocytes, Absolute 0.65 0.10 - 0.90 10*3/mm3 06/01/2025 3:31 PM EDT [facility] Eosinophils, Absolute 0.14 0.00 - 0.40 10*3/mm3 06/01/2025 3:31 PM [facility] Basophils, Absolute 0.05 0.00 - 0.20 10*3/mm3 06/01/2025 3:31 PM [facility] Immature Grans, Absolute 0.04 0.00 - 0.05 10*3/mm3 06/01/2025 3:31 PM [facility] nRBC 0.0 0.0 - 0.2 /100 WBC 06/01/2025 3:31 PM [facility] Blood Venipuncture / Unknown 06/01/2025 3:06 PM EDT 06/01/2025 3:25 PM EDT Isiah Barkley MD LAB BLOOD ORDERABLES Kate l Result Performing Organization Address City/[facility]/ZIP Co de Phone Number [facility]
[address] [place] [address], * Lavender Top (06/01/2025 3:06 PM EDT) Only the most recent of2 resultswithin the time period is included. Extra Tube hold for add-on 06/01/2025 3:32 PM EDT [facility] Comment:Auto resulted Blood Venipuncture / Unknown 06/01/2025 3:06 PM EDT 06/01/2025 3:25 PM EDT Isiah Barkley MD LAB BLOOD ORDER ONLY Kate l Result Performing Organization Address [facility] Co de Phone Number [facility]
[address] [place] [address], * Light Blue Top (06/01/2025 3:06 PM EDT) Only the most recent of2 resultswithin the time period is included. Extra Tube Hold for add-ons. 06/01/2025 3:32 PM EDT [facility] Comment:Auto resulted Blood Venipuncture / Unknown 06/01/2025 3:06 PM EDT 06/01/2025 3:25 PM EDT Isiah Barkley MD LAB BLOOD ORDER ONLY Kate l Result Performing Organization Address City/[facility]/ZIP Co de Phone Number [facility]
[address] [place] [address], * High Sensitivity Troponin T (06/01/2025 3:06 PM EDT) HS Troponin T <6 <14 ng/L 06/01/2025 3:54 PM EDT [facility] Blood Venipuncture / Unknown 06/01/2025 3:06 PM EDT 06/01/2025 3:25 PM EDT [facility] - 06/01/2025 3:54 PM EDT High [...] MD LAB BLOOD ORDERABLES Kate faulkner Result [facility]
[address] [place] [address], * hCG, Quantitative, (06/01/2025 3:06 PM EDT) Only the most recent of2 resultswithin the time period is included. HCG Quantitative <0.10 mIU/mL 06/01/20 3:58 PM EDT [facility] Blood Venipuncture / Unknown 06/01/2025 3:06 PM EDT 06/01/2025 3:25 PM EDT [facility] - 06/01/2025 3:58 PM EDT HCG [...] ORDERABLES Kate l Result Performing Organization Address City/[facility]/ZIP Co de Phone Number [facility]
[address] [place] [address], * Lipase (06/01/2025 3:06 PM EDT) Lipase 17 13 - 60 U/L 06/01/2025 3:50 PM EDT [facility] Blood Venipuncture / Unknown 06/01/2025 3:06 PM EDT 06/01/2025 3:25 PM EDT Isiah Barkley MD LAB BLOOD ORDERABLES Kate l Result Performing Organization Address [facility] Co de Phone Number [facility]
[address] [place] [address], * Comprehensive Metabolic Panel (06/01/2025 3:06 PM EDT) Only the most recent of2 resultswithin the time period is included. Glucose 88 65 - 99 mg/dL 06/01/2025 3:50 PM EDT [facility] BUN 9.5 6.0 - 20.0 mg/dL 06/01/2025 3:50 PM EDT [facility] Creatinine 0.71 0.57 - 1.00 mg/dL 06/01/2025 3:50 PM EDT [facility] Sodium 140 136 - 145 mmol/L 06/01/2025 3:50 PM [facility] Potassium 3.5 3.5 - 5.2 mmol/L 06/01/2025 3:50 PM [facility] Chloride 103 98 - 107 mmol/L 06/01/2025 3:50 PM [facility] CO2 27.0 22.0 - 29.0 mmol/L 06/01/2025 3:50 PM [facility] Calcium 9.4 8.6 - 10.5 mg/dL 06/01/2025 3:50 PM [facility] Total Protein 7.7 6.0 - 8.5 g/dL 06/01/2025 3:50 PM [facility] Albumin 4.9 3.5 - 5.2 g/dL 06/01/2025 3:50 PM [facility] ALT (SGPT) 13 1 - 33 U/L 06/01/2025 3:50 PM [facility] AST (SGOT) 17 1 - 32 U/L 06/01/2025 3:50 PM [facility] Alkaline Phosphatase 117 39 - 117 U/L 06/01/2025 3:50 PM [facility] Total Bilirubin 0.2 0.0 - 1.2 mg/dL 06/01/2025 3:50 PM [facility] Globulin 2.8 gm/dL 06/01/2025 3:50 PM [facility] Comment:Calculated Result A/G Ratio 1.8 g/dL 06/01/2025 3:50 PM [facility] BUN/Creatinine Ratio 13.4 7.0 - 25.0 06/01/2025 3:50 PM [facility] Anion Gap 10.0 5.0 - 15.0 mmol/L 06/01/2025 3:50 PM [facility] eGFR 115.3 >60.0 mL/min/1.7 3 06/01/2025 3:50 PM [facility] Blood Venipuncture / Unknown 06/01/2025 3:06 PM EDT 06/01/2025 3:25 PM EDT Narrative [facility] - 06/01/2025 3:50 PM EDT [...] MD LAB BLOOD ORDERABLES Kate l Result [facility]
[address] [place] [address], * ECG 12 Lead Chest Pain (06/01/2025 [...] EDT) Case Report Surgical Pathology Report Case: [id number] Authorizing Provider: Aminata Nassar MD Collected: 05/17/2025 08:15 AM Ordering Location: [facility] Received: 05/17/2025 08:58 AM ENDO SUITES Pathologist: Seda Loredo MD Specimen: Gastric, Antrum, ANTRUM BXS 05/18/2025 12:47 PM EDT [facility] Clinical Information Hematemesis, unspecified whether nausea present 05/18/2025 12:47 PM EDT [facility] Final Diagnosis GASTRIC ANTRUM: Reactive gastropathy Negative for intestinal metaplasia, dysplasia, neoplasia, malignancy No Helicobacter like organisms identified on H and E 05/18/2025 12:47 PM EDT [facility] at 1247 EDT Gross Description 1. Gastric, Antrum. Received in formalin labeled antrum BXS is a 0.3 x 0.2 x 0.2 cm single murillo tissue fragment, submitted entirely in a single cassette. LDP 05/18/2025 12:47 PM EDT [facility] Microscopic Description The slides are reviewed and demonstrate histopathologic features supporting the above rendered diagnosis. 05/18/2025 12:47 PM EDT [facility] Tissue Pyloric antrum structure / Unknown 05/17/2025 8:15 AM EDT 05/17/2025 8:58 AM EDT us Aminata Nassar MD PATHOLOGY/CYTOLOGY ORDERABLES Fi nal Result [facility]
[address] [place] [address], * BH AN ETT AIRWAY (05/17/2025 8:12 AM EDT) Narrative Marilee Gomez CRNA - 05/17/2025 8:12 AM EDT Marilee Gomez CRNA 05/17/2025 8:12 AM Airway Reason: elective Date/Time: 05/17/2025 8:10 AM Airway not difficult General Information and Staff Patient location during procedure: OR [facility]: Marilee Gomez CRNA Indications and Patient Condition [...] chest rise and fall us Marilee Gomez [facility] ANESTHESIA ORDERABLES Final Re sult * Upper GI Endoscopy (05/17/2025 7:55 AM EDT) us Aminata Nassar MD INTERFACE NEEDS Final Result * Type & Screen (05/15/2025 7:22 PM EDT) ABO Type O 05/15/2025 8:09 PM EDT [facility] RH type Positive 05/15/2025 8:09 PM EDT [facility] Antibody Screen Negative 05/15/2025 8:09 PM EDT [facility] T&S Expiration Date 05/18/2025 11:59:59 PM 05/15/2025 8:09 PM EDT [facility] Blood Venipuncture / Unknown 05/15/2025 7:22 PM EDT 05/15/2025 7:31 PM EDT Isiah Barkley MD BLOOD BANK TEST ORDERABLE S Edited Result - Final Performing Organization Address [facility]/ZIP Co de Phone Number [facility]
[address] [place] [address], [place] [phone] * Ethanol (05/15/2025 7:17 PM EDT) Ethanol <10 0 - 10 mg/dL 05/15/2025 7:45 PM EDT [facility] Blood Venipuncture / Unknown 05/15/2025 7:17 PM EDT 05/15/2025 7:24 PM EDT Narrative [facility] - 05/15/2025 7:45 PM EDT Not for legal purposes. Isiah Barkley MD LAB BLOOD ORDERABLES Kate l Result [facility]
[address] [place] [address], [place] [phone] * Telemetry Scan (05/15/2025 6:40 PM EDT) formerly [facility] ECG ORDERABLES Final Result * Urine Drug Screen - Urine, Clean Catch (05/15/2025 6:03 PM EDT) [facility] Signature THC, Screen, Urine Negative Negative 2024 6:37 PM EDT [facility] Phencyclidine (PCP), Urine Negative Negative 05/15/2025 6:37 PM EDT [facility] Cocaine Screen, Urine Negative Negative 05/15/2025 6:37 PM EDT [facility] Methamphetamine, Ur Negative Negative 05/15 6:37 PM EDT [facility] Opiate Screen Negative Negative 05/15/2025 6:37 PM EDT [facility] Amphetamine Screen, Urine Negative Negative 05/15/2025 6:37 PM EDT [facility] Benzodiazepine Screen, Urine Negative Negative 05/15/2025 6:37 PM EDT [facility] Tricyclic Antidepressants Screen Negative Negative 05/15/2025 6:37 PM EDT [facility] Methadone Screen, Urine Negative Negative 05/15/2025 6:37 PM EDT [facility] Barbiturates Screen, Urine Negative Negative 05/15/2025 6:37 PM EDT [facility] Oxycodone Screen, Urine Negative Negative 05/15/2025 6:37 PM EDT [facility] Buprenorphine, Screen, Urine Negative Negative 05/15/2025 6:37 PM EDT [facility] Urine Urine specimen obtained by clean catch procedure / Unknown Collection / Unknown 05/15/2025 6:03 PM EDT 05/15/2025 6:25 PM EDT [facility] - 05/15/2025 6:37 PM EDT Cutoff [...] ORDERABLES Final Re sult Performing Organization Address [facility] de Phone Number [facility]
[address] [place] [address], * Fentanyl, Urine - Urine, Clean Catch (05/15/2025 6:03 PM EDT) Fentanyl, Urine Negative Negative 05/15/2025 7:17 PM EDT [facility] Urine Urine specimen obtained by clean catch procedure / Unknown Collection / Unknown 05/15/2025 6:03 PM EDT 05/15/2025 6:25 PM EDT Narrative [facility] - 05/15/2025 7:17 PM EDT [...] ORDERABLES Final Re sult Performing Organization Address [facility] de Phone Number [facility]
[address] [place] [address], * (ABNORMAL) Respiratory Panel PCR w/COVID-19(SARS-CoV-2) JESSICA/ANALIA/AFIRCA/PAD/COR/MONICA In-House, [employer] Swab in UTM/VTM, 2 HR TAT - Swab, Nasopharynx (05/15/2025 6:02 PM EDT) Pathologist [facility] ADENOVIRUS, PCR Not Detected Not Detected BIOFIRE TORCH 05/15/2025 7:22 PM EDT [facility] Coronavirus 229E Not Detected Not Detected BIOFIRE TORCH 05/15/2025 7:22 PM EDT [facility] Coronavirus HKU1 Not Detected Not Detected BIOFIRE TORCH 05/15/2025 7:22 PM EDT [facility] Coronavirus NL63 Not Detected Not Detected BIOFIRE TORCH 05/15/2025 7:22 PM EDT [facility] Coronavirus OC43 Not Detected Not Detected BIOFIRE TORCH 05/15/2025 7:22 PM EDT [facility] COVID19 Not Detected Not Detected - Ref. Range BIOFIRE TORCH 05/15/2025 7:22 PM EDT [facility] Human Metapneumovirus Not Detected Not Detected BIOFIRE TOR 05/15/2025 7:22 PM EDT [facility] Human Rhinovirus/Enterov irus Detected(A) Not Detected BIOFIRE TOR 05/15/2025 7:22 PM EDT [facility] Influenza A PCR Not Detected Not Detected BIOFIRE TOR 05/15/2025 7:22 PM EDT [facility] Influenza B PCR Not Detected Not Detected BIOFIRE TOR 05/15/2025 7:22 PM EDT [facility] Parainfluenza Virus 1 Not Detected Not Detected BIOFIRE TOR 05/15/2025 7:22 PM EDT [facility] Parainfluenza Virus 2 Not Detected Not Detected BIOFIRE TORCH 05/15/2025 7:22 PM EDT [facility] Parainfluenza Virus 3 Not Detected Not Detected BIOFIRE TORCH 05/15/2025 7:22 PM EDT [facility] Parainfluenza Virus 4 Not Detected Not Detected BIOFIRE TORCH 05/15/2025 7:22 PM EDT [facility] RSV, PCR Not Detected Not Detected BIOFIRE TORCH 05/15/2025 7:22 PM EDT [facility] Bordetella pertussis pcr Not Detected Not Detected BIOFIRE TORCH 05/15/2025 7:22 PM EDT [facility] Bordetella parapertussis PCR Not Detected Not Detected BIOFIRE TOR 05/15/2025 7:22 PM EDT [facility] Chlamydophila pneumoniae PCR Not Detected Not Detected [facility] 05/15/2025 7:22 PM EDT [facility] Mycoplasma pneumo by PCR Not Detected Not Detected [facility] 05/15/2025 7:22 PM EDT [facility] Swab Nasopharyngeal structure / Unknown Collection / Unknown 05/15/2025 6:02 PM EDT 05/15/2025 6:23 PM EDT Narrative [facility] - 05/15/2025 7:22 PM EDT [...] MICROBIOLOGY - GENERAL OR DERABLES Final Result Performing Organization Address City/[facility]/ZIP Co de Phone Number [facility]
[address] [place] [address], * Pap IG, HPV-hr (10/18/2020 2:06 PM EST) ThinPrep Vial Tash Jackson MD PATHOLOGY/CYTOLOGY ORDERABLES Fi nal Result [facility]
[address] [place] [address], * Hepatitis C Antibody (10/17/2020 2:08 PM EST) Hepatitis C Ab Non-Reacti ve Non-Reacti ve 10/17/2020 7:29 PM EST [facility] Blood Venipuncture / Unknown 10/17/2020 2:08 PM EST 10/17/2020 2:08 PM EST Narrative [facility] - 10/17/2020 7:29 PM EST Results may be falsely decreased if patient taking Biotin. us Tash Jackson MD LAB BLOOD ORDERABLES Final Resul t [facility]
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 The last day before reporting a new confirmed COVID-19 would be 12/08/20. -Alida Banda RN 09/09/2020 12/25/2020 Insurance Advance Directives * CPR (Attempt to Resuscitate) [...] Of Support Discussed With: Patient Care Teams Washroom Operator Relationship Specialty Start Date End Date Michaela Sousa APRN [address] [place] [address] [place] [id number] PCP - General Internal Medicine 09/04/24
--- OUTSIDE RECORDS SUMMARY | 2025-08-05 12:44 | XMS_ITS | Clinical Summary ---
Author Organization [facility] Address [facility] [address] [place], [place] [address] Phone Care Team Providers Care Manager Technical Training Name Role Phone Unavailable Primary Care Provider [...] a complete record from that organization. b aykglvg-K-qufle acid (NEPHROCAP) 1 mg Oral Capsule Take [...] (07/05/2020): Added automatically from request for surgery [id number] Pelvic pain 07/05/2020 Overview (07/05/2020): Added automatically from request for surgery [id number] Scoliosis of thoracic spine 03/09/2019 S/P endometrial [...] 07/08/2018 N/A ESOPHAGOGASTRODUODENOSCOPY with biopsy; Surgeon: Mic aPvon MD; Location: [facility]; Service: Endoscopy LAPAROSCOPY DENTAL SURGERY LAPAROSCOPY 12/21/2018 Right LAPAROSCOPY WITH HARMONIC SCALPEL ABLATION OF ENDOMETRIOSIS, CHROMOPERTUBATION; Surgeon: Sharath Desri MD; Location: [facility]; Service: Gynecology [...] disorder 10/07/2018 Per biopsy, according to ana illia hudson. Headache Encounter for blood transfusion Post-operative [...] HPV/Pap Cotest 2022 COVID-19 Vaccine (1 - 2024-2 6 season) 2025 Influenza Vaccine (#1) 2025 8, [...] Story LPN Medical Devices Implanted Type Area Senior C Developer Device Identifier Shelf Expiration Date Model / Serial / Lot Screw For [employer] Insurance [facility] CHO[facility] PLUS [facility] [employer] PLUS [facility] [employer] PLUS [facility] [employer] [employer]US [facility] CHO[employer] PLUS * Guarantor: Maia Kovacs Account Type Relation to Patient Date of Phone Billing Address [place] Personal Family Self Advance Directives For more information, please contact: [phone] * Full Code (Latest Code Status on [...]
--- NOTE | 2025-08-05 12:49 | US_ITS ---
PROCEDURE INFORMATION: Exam: US Pelvis, Transvaginal, Non-Obstetric Exam date and time: 08/05/2025 1:25 PM Age: 35 years old Clinical indication: Pelvic pain; Additional info: Rlq pain, ovarian mass, R/O torsion TECHNIQUE: Imaging protocol: Real-time transvaginal pelvic (non-obstetric) ultrasound with image documentation. Transvaginal imaging was used for better evaluation of the endometrium, adnexa, and/or cervix. COMPARISON: US TRANSVAGINAL 12/29/2024 8:53 PM FINDINGS: Uterus: Endometrium 8.9 mm. Uterus 8.4 x 3.8 x 5.4 cm total volume 90 cc Right ovary/adnexa: Cystic structure right ovary 3.26 x 2.86 x 3.18 cm. It contains calcifications. Peak systolic velocity right ovary 16 cm/s. Right ovary 5.6 x 3.9 x 2.8 cm total volume 32.4 cc Left ovary/adnexa: Left ovary 2.5 x 2.3 x 1.6 cm total volume 4.6 cc. Peak systolic velocity left ovary 4 cm/s Urinary bladder: Urinary bladder is limited. Intraperitoneal space: No free fluid. IMPRESSION: No torsion of either ovary Cystic structure right ovary 3.26 x 2.86 x 3.18 cm
--- NOTE | 2025-08-05 12:50 | PC.NURSE ---
I notified radiology of the need for a transvag-US to rule out ovarian torsion.
[2025-08-05] MEDS: ONDANSETRON 4MG/2ML VIAL 4 MG IV ×2 (12:54→14:22)
[2025-08-05] MEDS: MORPHINE 4MG/ML SYRINGE 4 MG IV (12:54)
[2025-08-05 12:55] LABS: Microscopic, Urine URINE MICROSCOPIC (MICROSCOPIC)
[2025-08-05 13:01] LABS: Hematocrit 39.4 % (37.0-47.0); Hemoglobin 12.9 g/dL (12.2-16.2); Immature Granulocytes % 0.4 %; Mean Corpuscular HGB Conc 32.7 g/dL (31.8-35.4); Mean Corpuscular Hemoglobin 28.4 pg (27.0-31.2); Mean Corpuscular Volume 86.6 fl (81-99); Nucleated Red Blood Cells % 0 %; Platelet Count 319 K/mm3 (142-424); Red Blood Count 4.55 M/mm3 (4.20-5.40); Red Cell Distribution Width-SD 41.5 fL; White Blood Count 12.6 K/mm3 (4.8-10.8)
[2025-08-05 13:05] LABS: Bilirubin,Urine Negative (Negative); Color,Urine YELLOW (Yellow); Glucose,Urine (UA) Negative (Negative); Ketones,Urine TRACE (Negative); Leukocyte Esterase,Urine TRACE (Negative); PH,Urine 6.0 (5.0-8.5); Protein,Urine Negative (Negative); Specific Gravity, Urine 1.020 (1.005-1.030); Urobilinogen,Urine 0.2 EU/dl (0.2)
[2025-08-05 13:08] LABS: Urine Pregnancy, HCG Qual. Negative (Negative)
[2025-08-05 13:12] LABS: Albumin Level 5.5 g/dl (3.5-5.0); Chloride 104 mmol/L (98-107); Sodium 140 mmol/L (136-145)
[2025-08-05 13:13] LABS: Potassium 3.6 mmoL/L (3.5-5.1)
[2025-08-05 13:15] LABS: Alanine Aminotransferase 16 U/L (12-78); Albumin/Globulin Ratio 1.9 (1.1-1.8); Alkaline Phosphatase 96 U/L (38-126); Anion Gap 16.6 mEq/L (5-15); Aspartate Amino Transferase 28 U/L (14-36); Bilirubin,Total 0.5 mg/dl (0.2-1.3); Blood Urea Nitrogen 8 mg/dl (7-17); Carbon Dioxide 23 mmol/L (22.0-30.0); Creatinine Clearance Estimated 127 mL/min (50-200); Creatinine,Serum 0.70 mg/dl (0.52-1.04); Estimated Glomerular Filt Rate 96 ml/min (>60); GFR (African American) 117 ML/MIN (>60); Globulin 2.9 g/dL (1.3-3.2); Total Protein,Serum 8.4 g/dl (6.3-8.2)
[2025-08-05 13:16] LABS: Calcium 9.6 mg/dl (8.4-10.2); Glucose 83 mg/dl (74-100)
[2025-08-05 13:19] LABS: HCG Qualitative, Serum Negative (Negative)
[2025-08-05 13:29] LABS: Bacteria,Urine Trace /lpf; WBC,Urine Occasional #/hpf (0-3)
[2025-08-05] MEDS: OXYCODONE 5MG IMMEDIATE RELEASE TABLET 5 MG PO (14:21)
--- NOTE | 2025-08-05 15:10 | HMH.EDGENADL ---
Discharge Plan Disposition Patient Disposition: Home, Self-Care Condition: Good Prescriptions Prescriptions: New ondansetron 4 mg tablet,disintegrating 4 mg PO Q8H 3 Days Qty: 9 0RF No Action gabapentin 300 mg capsule 300 mg PO Patient Comments: TAKE ONE CAPSULE BY MOUTH EVERY 8 HOURS MAY CAUSE DROWSINESS cyanocobalamin (vitamin B-12) 1,000 mcg/mL solution 1,000 mcg SQ Patient Comments: INJECT 1 ML DIRECTED EVERY 28 DAYS pantoprazole 40 mg tablet,delayed release (DR/EC) 40 mg PO ONCE Patient Comments: TAKE ONE TABLET BY MOUTH TWICE DAILY famotidine [Pepcid] 20 mg Tablet 20 mg PO DAILY Referrals Follow up/Referrals: Chelita Jackson [Referring, Medical] - See instructions Michaela Sousa APRN [Primary Care Provider, Medical] - See instructions Activity Restrictions/Add. Instructions Additional Instructions/Restrictions: You were seen for an ovarian cyst. Return here if you have any worsening pain. Please call your [facility] [employer] tomorrow. Clinical Impressions Clinical Impression: Abdominal pain, Ovarian cyst Instructions Patient Instructions: Ovarian Cyst, DI for Acute Abdominal Pain Print Language Print Language: Occitan Discharge ED Provider: Seu De Anda General Adult HPI <MAURIZIO Moncada - Last Filed: 08/05/25 15:37> General Chief complaint: Abdominal Pain Stated complaint: abd. pain Time Seen by Provider: 08/05/25 12:42 Mode of Arrival: Ambulatory Source of Information: Patient Description of Symptoms (Recalled from ER Triage Doc. by RN): Pt has had abdominal pain for a few months now. Pt recently had a transvaginal ultrasound and her OBGYN found a calcified cyst. Pt is scheduled for a complete hysterectomy in two weeks. Pt states the abdominal pain is getting worse and wrapping around her back over the last few days. Pt has had N/V, last time she vomitted was in the parking lot History of Present Illness HPI narrative: Patient presents complaining of right sided abdominal pain. She has a history of endometriosis and is scheduled for hysterectomy. She has had ongoing pain for several months. This morning her pain was worse starting at 0200. She reports she has taken Tylenol and applied heat without resolution. She does have a history of GI bleeding and cannot take NSAIDs. Denies any fever. She has had nausea and vomiting. She did have some vaginal spotting yesterday MD complaint: abdominal pain Onset (ago): month(s) Location: abdomen and pelvis Radiation: non-radiation Severity: moderate Consistency: constant Relieving factors: other (curling up ) Exacerbating factors: none Associated symptoms: negative fever/chills Treatments prior to arrival: other (tylenol ) Related Data Home Medications ?Medication ?Instructions ?Recorded ?Confirmed famotidine 20 mg tablet (Pepcid) 20 mg PO DAILY 05/24/24 08/05/25 cyanocobalamin (vitamin B-12) 1,000 mcg SQ 02/07/25 08/05/25 1,000 mcg/mL injection solution gabapentin 300 mg capsule 300 mg PO 02/07/25 08/05/25 pantoprazole 40 mg tablet,delayed 40 mg PO ONCE 02/07/25 08/05/25 release Previous Rx's ?Medication ?Instructions ?Recorded ondansetron 4 mg disintegrating 4 mg PO Q8H 3 days #9 tabs 08/05/25 tablet Allergies Allergy/AdvReac Type Severity Reaction Status Date / Time celecoxib (From Celebrex) Allergy Severe Anaphylaxis Verified 08/05/25 11:00 latex (LATEX) Allergy Severe Anaphylaxis Verified 08/05/25 11:00 coconut Allergy Unknown Anaphylaxis Verified 08/05/25 11:00 Pertussis Vaccines Allergy Unknown Unknown Verified 08/05/25 11:00 (PERTUSSIS VACCINES) allergy reaction pineapple (PINEAPPLE) Allergy Unknown Unknown Verified 08/05/25 11:00 allergy reaction Sulfa (Sulfonamide Allergy Unknown Unknown Verified 08/05/25 11:00 Antibiotics) (SULFA allergy (SULFONAMIDE ANTIBIOTICS)) reaction dicyclomine (From Bentyl) AdvReac Blurry Verified 08/05/25 11:00 Vision ketamine AdvReac Rash Verified 08/05/25 11:00 PFSH <MAURIZIO Moncada - Last Filed: 08/05/25 15:37> [facility] Disclaimer: The information contained in this section may have been updated after the patient was seen, as this information can be updated by other users. Medical History (Updated 08/05/25 @ 15:33 by MAURIZIO Moncada) URI (upper respiratory infection) Sinusitis Viral upper respiratory infection Liver disease Depression Anxiety History of anemia History of gastroesophageal reflux (GERD) Kidney stone Migraine Surgical History History of tonsillectomy History of cholecystectomy History of section Family History Grandfather Cancer Colon Cancer Mother Cancer Thyroid Cancer Sister Cancer Cervical Cancer Grandmother Cancer Maternal Grandmother-Cervical, Breast and Lung Cancer Social History Smoking Status: Never smoker second hand exposure: No alcohol intake: never current occupational status: employed Travel in the last 8 weeks?: None household members: other housing: house 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 current occupational exposures/hazards: No caffeine: Yes Have you lived/traveled outside [place] in past 30 days?: No Contact w/someone who lives/traveled outside [place] past 30 days?: No Exposure to someone with infectious disease in past 14 days?: No Do you have a fever (greater than 100.4 F or 38 C)?: No Have you tested positive for COVID-19?: No Exposed to someone with COVID-19 in past 14 days?: No Do you have a sore throat?: No Do you have a cough?: No Do you have any weakness?: No Do you have any diarrhea?: No Are you experiencing any unusual bleeding?: No Do you have any muscle aches/pain?: No Do you have any abdominal pain?: Yes Are you experiencing loss of taste or smell?: No Other Medical History Have you received the Flu Vaccine for this season: Yes Have you received the Pneumonia Vaccine: No <MAURIZIO Moncada - Last Filed: 08/05/25 15:37> ROS Obtained: Yes Systems reviewed as appropriate & no additional complaints except as documented Physical Exam <MAURIZIO Moncada - Last Filed: 08/05/25 15:37> General General appearance: alert and in no apparent distress Head Head exam: atraumatic and normocephalic Eye Eye exam: Present normal appearance and EOMI Chest Chest inspection: Present symmetric chest wall rise Respiratory Respiratory exam: Present normal lung sounds bilaterally; Absent wheezes or stridor Cardiovascular Cardiovascular exam: Present regular rate and normal rhythm; Absent systolic murmur Abdominal Exam Abdominal exam: Present soft; Absent distention or guarding Abdominal tenderness: Present RLQ Extremities Exam Extremities exam: Present full ROM Neurological Exam Neurological exam: Present alert and oriented X3 Psychiatric Psychiatric exam: Present normal affect and normal mood Skin Skin exam: Present warm, dry and intact Medical Decision Making <MAURIZIO Moncada - Last Filed: 08/05/25 15:37> Medical Records Screening: Per USPSTF and CDC recommendations, given the prevalence of disease in our region, it is our hospital?s policy to screen for HIV and viral Hepatitis for all patients aged 18 and over and those with ongoing risk factors. Federico Inquiry Pt receiving controlled substance: No Vital Signs: 08/05/25 12:30 08/05/25 12:41 08/05/25 13:00 Temperature 97.5 F L Temperature Source Oral Pulse Rate 94 H 80 Pulse Rate [Right] 91 H Respiratory Rate 20 Blood Pressure 124/80 115/71 Blood Pressure [Right Arm] 125/72 Blood Pressure Mean [Right Arm] 89 Blood Pressure Source Blood Pressure Source [Right Arm] Automatic Cuff Blood Pressure Position Blood Pressure Position [Right Arm] Sitting 02 Sat by Pulse Oximetry 99 100 98 Oxygen Delivery Method Room Air Room Air Room Air 08/05/25 13:30 08/05/25 15:00 08/05/25 15:04 Temperature Temperature Source Pulse Rate 78 69 74 Pulse Rate [Right] Respiratory Rate Blood Pressure 120/77 99/64 L 115/81 Blood Pressure [Right Arm] Blood Pressure Mean [Right Arm] Blood Pressure Source Blood Pressure Source [Right Arm] Blood Pressure Position Blood Pressure Position [Right Arm] 02 Sat by Pulse Oximetry 99 98 98 Oxygen Delivery Method Room Air Room Air Room Air 08/05/25 15:10 08/05/25 15:51 Temperature 98.1 F Temperature Source Oral Pulse Rate 69 73 Pulse Rate [Right] Respiratory Rate 15 Blood Pressure 100/65 L 115/76 Blood Pressure [Right Arm] Blood Pressure Mean [Right Arm] Blood Pressure Source Automatic Cuff Blood Pressure Source [Right Arm] Blood Pressure Position Supine Blood Pressure Position [Right Arm] 02 Sat by Pulse Oximetry 97 Oxygen Delivery Method Room Air Room Air Lab Data Lab Results 08/05/25 12:25: Urine HCG, Qual Negative 08/05/25 12:35: Urine Color Yellow, Urine Appearance Clear, Urine pH 6.0, Ur Specific [place]ie [place] 1.020, Urine Protein Negative, Urine Glucose (UA) Negative, Urine Ketones Trace, Urine Blood Negative, Urine Nitrate Negative, Urine Bilirubin Negative, Urine Urobilinogen 0.2, Ur Leukocyte Esterase Trace, Urine RBC None, Urine WBC Occasional, Ur Squamous Epith Cells 3-5, Urine Bacteria Trace 08/05/25 12:46: WBC 12.6 H, RBC 4.55, Hgb 12.9, Hct 39.4, MCV 86.6, MCH 28.4, MCHC 32.7, RDW 13.2, Plt Count 319, MPV 9.1, Neut % (Auto) 70.4, Lymph % (Auto) 18.2, [place] % (Auto) 9.1, Eos % (Auto) 1.3, Baso % (Auto) 0.6, Neut # (Auto) 8.9 H, Lymph # (Auto) 2.3, [place] # (Auto) 1.2 H, Eos # (Auto) 0.2, Baso # (Auto) 0.1, Sodium 140, Potassium 3.6, Chloride 104, Carbon Dioxide 23, Anion Gap 16.6 H, BUN 8, Creatinine 0.70, Estimated Creat Clear 127, Estimated GFR 96, Est GFR ( Amer) 117, Glucose 83, Calcium 9.6, Total Bilirubin 0.5, AST 28, ALT 16, Alkaline Phosphatase 96, Total Protein 8.4 H, Albumin 5.5 H, Globulin 2.9, Albumin/Globulin Ratio 1.9 H, Serum HCG, Qual Negative 08/05/25 12:46 08/05/25 12:46 Orders (Tests/Meds): ED MEDICATIONS Discontinued Medications Generic Name Dose Route Start Last Admin Trade Name Ramiro PRN Reason Stop Dose Admin Morphine Sulfate 4 mg 08/05/25 12:47 08/05/25 12:54 Morphine 4mg/Ml Syringe IV 08/05/25 12:48 4 mg ONCE ONE Administration Ondansetron HCl 4 mg 08/05/25 12:47 08/05/25 12:54 Ondansetron 4mg/2ml Vial IV 08/05/25 12:48 4 mg ONCE ONE Administration Ondansetron HCl 4 mg 08/05/25 14:09 08/05/25 14:22 Ondansetron 4mg/2ml Vial IV 08/05/25 14:10 4 mg ONCE ONE Administration Oxycodone HCl 5 mg 08/05/25 14:10 08/05/25 14:21 Oxycodone 5mg Immediate Release Tablet PO 08/05/25 14:11 5 mg ONCE ONE Administration ORDERS Category Date Time Status US transvaginal Stat Exams 08/05/25 12:49 Completed Complete Blood Count Auto Diff Stat Lab 08/05/25 12:46 Completed Comprehensive Metabolic Panel Stat Lab 08/05/25 12:46 Completed HCG Qualitative, Serum Stat Lab 08/05/25 12:46 Completed Urinalysis and Microscopic Stat Lab 08/05/25 12:35 Completed Urine , HCG Qual. Stat Lab 08/05/25 12:[address] Data ED CT Reviewed: Yes I have viewed the radiologist's interpretation US Data US Images: Pelvis ED US Reviewed: Yes I have viewed radiologist's interpretation Findings Narrative: IMPRESSION: No torsion of either ovary Cystic structure right ovary 3.26 x 2.86 x 3.18 cm Medical Decision Narrative: In summary patient is a 35-year-old female who presents the emergency department for evaluation of right lower quadrant pain. Patient is hemodynamically stable upon arrival, afebrile. Right lower quadrant tenderness on exam. Differential diagnosis includes ovarian cyst, ovarian torsion, UTI. Pain has been ongoing for several months and patient has had a CT to rule out appendicitis. Initial workup will be conducted with labs, urinalysis, transvaginal ultrasound. Initial inventions include morphine and Zofran for pain and nausea. Initial workup reviewed by me hematologic labs unremarkable. Transvaginal ultrasound does reveal a right ovarian cyst without evidence of torsion. Upon repeat evaluation patient is resting comfortably. Given this patient is appropriate for discharge home at this time with instructions to call her [facility] tomorrow. Given return precautions. <Sue De Anda MD - Last Filed: 08/06/25 09:21> Vital Signs: 08/05/25 12:30 08/05/25 12:41 08/05/25 13:00 Temperature 97.5 F L Temperature Source Oral Pulse Rate 94 H 80 Pulse Rate [Right] 91 H Respiratory Rate 20 Blood Pressure 124/80 115/71 Blood Pressure [Right Arm] 125/72 Blood Pressure Mean [Right Arm] 89 Blood Pressure Source Blood Pressure Source [Right Arm] Automatic Cuff Blood Pressure Position Blood Pressure Position [Right Arm] Sitting 02 Sat by Pulse Oximetry 99 100 98 Oxygen Delivery Method Room Air Room Air Room Air 08/05/25 13:30 08/05/25 15:00 08/05/25 15:04 Temperature Temperature Source Pulse Rate 78 69 74 Pulse Rate [Right] Respiratory Rate Blood Pressure 120/77 99/64 L 115/81 Blood Pressure [Right Arm] Blood Pressure Mean [Right Arm] Blood Pressure Source Blood Pressure Source [Right Arm] Blood Pressure Position Blood Pressure Position [Right Arm] 02 Sat by Pulse Oximetry 99 98 98 Oxygen Delivery Method Room Air Room Air Room Air 08/05/25 15:10 08/05/25 15:51 Temperature 98.1 F Temperature Source Oral Pulse Rate 69 73 Pulse Rate [Right] Respiratory Rate 15 Blood Pressure 100/65 L 115/76 Blood Pressure [Right Arm] Blood Pressure Mean [Right Arm] Blood Pressure Source Automatic Cuff Blood Pressure Source [Right Arm] Blood Pressure Position Supine Blood Pressure Position [Right Arm] 02 Sat by Pulse Oximetry 97 Oxygen Delivery Method Room Air Room Air Lab Data Lab Results 08/05/25 12:25: Urine HCG, Qual Negative 08/05/25 12:35: Urine Color Yellow, Urine Appearance Clear, Urine pH 6.0, Ur Specific [place] 1.020, Urine Protein Negative, Urine Glucose (UA) Negative, Urine Ketones Trace, Urine Blood Negative, Urine Nitrate Negative, Urine Bilirubin Negative, Urine Urobilinogen 0.2, Ur Leukocyte Esterase Trace, Urine RBC None, Urine WBC Occasional, Ur Squamous Epith Cells 3-5, Urine Bacteria Trace 08/05/25 12:46: WBC 12.6 H, RBC 4.55, Hgb 12.9, Hct 39.4, MCV 86.6, MCH 28.4, MCHC 32.7, RDW 13.2, Plt Count 319, MPV 9.1, Neut % (Auto) 70.4, Lymph % (Auto) 18.2, [place] % (Auto) 9.1, Eos % (Auto) 1.3, Baso % (Auto) 0.6, Neut # (Auto) 8.9 H, Lymph # (Auto) 2.3, [place] # (Auto) 1.2 H, Eos # (Auto) 0.2, Baso # (Auto) 0.1, Sodium 140, Potassium 3.6, Chloride 104, Carbon Dioxide 23, Anion Gap 16.6 H, BUN 8, Creatinine 0.70, Estimated Creat Clear 127, Estimated GFR 96, Est GFR ( Amer) 117, Glucose 83, Calcium 9.6, Total Bilirubin 0.5, AST 28, ALT 16, Alkaline Phosphatase 96, Total Protein 8.4 H, Albumin 5.5 H, Globulin 2.9, Albumin/Globulin Ratio 1.9 H, Serum HCG, Qual Negative Orders (Tests/Meds): ED MEDICATIONS Discontinued Medications Generic Name Dose Route Start Last Admin Trade Name Rhettq PRN Reason Stop Dose Admin Morphine Sulfate 4 mg 08/05/25 12:47 08/05/25 12:54 Morphine 4mg/Ml Syringe IV 08/05/25 12:48 4 mg ONCE ONE Administration Ondansetron HCl 4 mg 08/05/25 12:47 08/05/25 12:54 Ondansetron 4mg/2ml Vial IV 08/05/25 12:48 4 mg ONCE ONE Administration Ondansetron HCl 4 mg 08/05/25 14:09 08/05/25 14:22 Ondansetron 4mg/2ml Vial IV 08/05/25 14:10 4 mg ONCE ONE Administration Oxycodone HCl 5 mg 08/05/25 14:10 08/05/25 14:21 Oxycodone 5mg Immediate Release Tablet PO 08/05/25 14:11 5 mg ONCE ONE Administration ORDERS Category Date Time Status US transvaginal Stat Exams 08/05/25 12:49 Completed Complete Blood Count Auto Diff Stat Lab 08/05/25 12:46 Completed Comprehensive Metabolic Panel Stat Lab 08/05/25 12:46 Completed HCG Qualitative, Serum Stat Lab 08/05/25 12:46 Completed Urinalysis and Microscopic Stat Lab 08/05/25 12:35 Completed Urine , HCG Qual. Stat Lab 08/05/25 12:25 Completed Medical Decision Narrative: In summary patient is a 35-year-old female who presents the emergency department for evaluation of right lower quadrant pain. Patient is hemodynamically stable upon arrival, afebrile. Right lower quadrant tenderness on exam. Differential diagnosis includes ovarian cyst, ovarian torsion, UTI. Pain has been ongoing for several months and patient has had a CT to rule out appendicitis. Initial workup will be conducted with labs, urinalysis, transvaginal ultrasound. Initial inventions include morphine and Zofran for pain and nausea. Initial workup reviewed by ct hematologic labs unremarkable. Transvaginal ultrasound does reveal a right ovarian cyst without evidence of torsion. Upon repeat evaluation patient is resting comfortably. Given this patient is appropriate for discharge home at this time with instructions to call her [employer] tomorrow. Given return precautions. I was consulted by the AMANDO, and we discussed the complexity of problems being addressed. I approved the treatment and management plan for this patient's care in the emergency department, thus performing a substantial portion of the medical decision making. Sue De Anda MD Critical Care <MAURIZIO Moncada - Last Filed: 08/05/25 15:37> Critical Care Time Critical Care Time: No
== END 2025-08-05 15:52 | disposition home or self-care (01) ==
PROVIDERS: Emergency Provider Student in an Organized Health Care Education/Training Program; PCP Nurse Practitioner Family
DX: R10.31 Right lower quadrant pain (principal); N83.201 Unspecified ovarian cyst, right side; R11.2 Nausea with vomiting, unspecified
CPT/HCPCS: 76830; 80053; 81001; 81025; 84703; 85025; 96374; 96375; 96376; 99285; J2270; J2405

== ENCOUNTER 2025-08-20 21:48 | Emergency (ER) | payer OTHER, SELFPAY ==
--- OUTSIDE RECORDS SUMMARY | 2020-07-18 04:23 | XMS_ITS | Continuity of Care Document ---
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 [address], [place], [place], [id number] , [place]. 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 [address], [place], [place], [address] , [place]. tel:[phone] Family History Family Member Type Diagnosis Age At Onset No Information Payers Payer name Insurance type Covered green party ID Authoriza tion(s) No Information Social History Type Description Quantity Date Captured Comments Sex Female Smoking Status No Information Chief Complaint And Reason For Visit No Information Reason For Referral Reason For Referral No Information Plan Of Treatment Date Type Action Status Goal Influenza vaccine. Due on Oc due Goal HIV Screen. Due on 20 due Goal PAP. Due on due Goal Tdap. Due on due History Of Present Illness Encounter Date Complaint History Of Prese nt Illness No Information Functional Status Date Functional Assessmen t No Information Instructions Date Instruction Additional Infor mation No Information Assessments Type Assessment Date No Information Patient Care Teams Name Effective Dates (start - stop) Status Members No Information
--- OUTSIDE RECORDS SUMMARY | 2025-08-13 10:30 | XMS_ITS | Encounter Summary ---
[facility] Organization [facility] Address [address] [place] [address] Care Team Providers Care Cellophane Bath Mixer Name Role Phone SousaSoraidarebekah KING Primary Care Provider + [phone] Encounter Details Date Type Department Care Team (Latest Contact Info) Description 08/13/2025 10:30 AM EST Pre-Admission Testing [facility] PREADMISSION T [address] [place] [id number] Endometriosis determined by laparoscopy Social History Tobacco Use Types Packs/Day Years Used Date Smoking Tobacco: Never Passive Smoke Exposure: Never Smokeless Tobacco: Never Alcohol Use Standard Drinks/Week Comments No 0 (1 standard drink = 0.6 oz pur e alcohol) [facility] Utilities Answer Date Recorded In the past 12 months has [employer] electric, gas, oil, or water company threatened [...] Date Recorded Retired Total Score 0 05/07/2021 [facility] of Occupat ional Health - Occupational Stress [...] needed for daily living? No 12/10/2024 [place] Depression Scale Answer Date Recorded [place] Depression Scale Total 2 12/22/2024 The thought of harming myself has occurred to me . Never 12/22/2024 Abuse Screen Answer Date Recorded Feels Unsafe at Home or Work/School no 08/13/2025 Feels Threatened by Someone no 07/28 Does Anyone Try to Keep You From Having Contact with Others or Doing Things Outside Your Home? no 08/13/2025 Physical Signs of Abuse Present no 08/13/2025 Housing Stability Answer Date Recorded Current Living [...] high school diploma, GED or equivalent No 08/13/2025 Preferred Language Chilean 08/13/2025 PHQ-2 Answer Date Recorded Patient Health Questionnaire-9 [...] Sign Reading Time Taken Comments Blood Pressure - - Pulse - - Temperature - - Respiratory Rate - - Oxygen Saturation - - Inhaled Oxygen Concentration - - Weight 70.8 kg (156 lb 1.4 oz) 08/13/2025 10:21 AM EST Height 172.7 cm (5' 8 ) 08/13/2025 10:21 AM EST Body Mass Index 23.73 08/13/2025 10:21 AM EST documented in this encounter OR Notes * PAT - Marlene Alexander RN - 08/13/2025 10:30 AM EST An arrival time for procedure was not provided during PAT visit. If patient had any questions or concerns about their arrival time, they were instructed to contact their surgeon/physician. Additionally, if the patient referred to an arrival time that was acquired from their my chart account, patient was encouraged to verify that time with their surgeon/physician. Arrival times are NOT provided inPre Admission Testing Department. Patient denies any current skin issues. Patient to apply Chlorhexadine wipes to surgical area (as instructed) the night before procedure and the AM of procedure. Wipes provided. Patient instructed to drink 20 ounces of Gatorade or Gatorlyte (if diabetic) and it needs to be completed 1 hour (for Main OR patients) or 2 hours (scheduled section & [facility] patients) before given arrival time for procedure (NO RED Gatorade and NO Gatorade Zero). Patient verbalized understanding. Instructed patient to take two Tylenol extra strength (total of 1000 mg) the night before surgery. documented in this encounter Plan of Treatment Upcoming Encounters Date Type Department Care Team (Late st Contact Info) Description 10/31/2025 3:15 PM EST Office Visit [facility] [address] [address] Maday, Aminata Roberts MD [address] [address] Scheduled Procedures Name Priority Associated Diagnoses Date/Ti me TOTAL LAPAROSCOPIC HYSTERECT JIGAR BILATERAL SALPINGOOPHORECTOMY WITH DAVINCI ROBOT 08/20/2025 8:[address] documented as of this encounter Procedures Procedure Name Priority Date/Time Associated Diagnosis Comments CBC WITH AUTO DIFFERENTIAL Routine 08/13/2025 10:07 AM EST Endometriosis determined by laparoscopy CBC AND DIFFERENTIAL Routine 08/13/2025 10:07 AM EST Endometriosis determined by laparoscopy URINALYSIS W/ CULTURE IF INDICATED Routine 08/13/2025 9:38 AM EST Endometriosis determined by laparoscopy documented in this encounter Results * (ABNORMAL) CBC Auto Differential (08/13/2025 10:07 AM EST) WBC 7.74 3.40 - 10.80 10*3/mm3 08/13/2025 10:59 AM EST [facility] RBC 4.25 3.77 - 5.28 10*6/mm3 08/13/2025 10:59 AM EST [facility] Hemoglobin 11.8(L) 12.0 - 15.9 g/dL 08/13/2025 10:59 AM EST [facility] Hematocrit 37.9 34.0 - 46.6 % 08/13/2025 10:59 AM [facility] MCV 89.2 79.0 - 97.0 fL 08/13/2025 10:59 AM [facility] MCH 27.8 26.6 - 33.0 pg 08/13/2025 10:59 AM [facility] MCHC 31.1(L) 31.5 - 35.7 g/dL 08/13/2025 10:59 AM [facility] RDW 13.2 12.3 - 15.4 % 08/13/2025 10:59 AM [facility] RDW-SD 43.2 37.0 - 54.0 fl 08/13/2025 10:59 AM [facility] MPV 8.9 6.0 - 12.0 fL 08/13/2025 10:59 AM [facility] Platelets 280 140 - 450 10*3/mm3 08/13/2025 10:59 AM [facility] Neutrophil % 71.2 42.7 - 76.0 % 08/13/2025 10:59 AM [facility] Lymphocyte % 17.2(L) 19.6 - 45.3 % 08/13/2025 10:59 AM [facility] Monocyte % 8.5 5.0 - 12.0 % 08/13/2025 10:59 AM [facility] Eosinophil % 1.8 0.3 - 6.2 % 08/13/2025 10:59 AM [facility] Basophil % 0.8 0.0 - 1.5 % 08/13/2025 10:59 AM [facility] Immature Grans % 0.5 0.0 - 0.5 % 08/13/2025 10:59 AM [facility] Neutrophils, Absolute 5.51 1.70 - 7.00 10*3/mm3 08/13/2025 10:59 AM [facility] Lymphocytes, Absolute 1.33 0.70 - 3.10 10*3/mm3 08/13/2025 10:59 AM [facility] Monocytes, Absolute 0.66 0.10 - 0.90 10*3/mm3 08/13/2025 10:59 AM EST [facility] Eosinophils, Absolute 0.14 0.00 - 0.40 10*3/mm3 08/13/2025 10:59 AM EST [facility] Basophils, Absolute 0.06 0.00 - 0.20 10*3/mm3 08/13/2025 10:59 AM [facility] Immature Grans, Absolute 0.04 0.00 - 0.05 10*3/mm3 08/13/2025 10:59 AM [facility] nRBC 0.0 0.0 - 0.2 /100 WBC 08/13/2025 10:59 AM [facility] Blood Venipuncture / Unknown 08/13/2025 10:07 AM EST 08/13/2025 10:41 AM EST Chelita Jackson MD LAB BLOOD ORDERABLES Final R esult [facility]
[address] [place] [address], * Urinalysis With Culture If Indicated - Urine, Clean Catch (08/13/2025 9:38 AM EST) Color, UA Yellow Yellow, Straw 08/13/2025 10:27 AM [facility] Appearance, UA Clear Clear 08/13/2025 10:27 AM [facility] pH, UA 5.5 5.0 - 8.0 08/13/2025 10:27 AM [facility] Specific [place], UA 1.014 1.005 - 1.030 08/13/2025 10:27 AM [facility] Glucose, UA Negative Negative 08/13/2025 10:27 AM [facility] Ketones, UA Negative Negative 08/13/2025 10:27 AM [facility] Bilirubin, UA Negative Negative 08/13/2025 10:27 AM EST [facility] Blood, UA Negative Negative 08/13/2025 10:27 AM EST [facility] Protein, UA Negative Negative 08/13/2025 10:27 AM EST [facility] Leuk Esterase, UA Negative Negative 08/13/2025 10:27 AM EST [facility] Nitrite, UA Negative Negative 08/13/2025 10:27 AM EST [facility] Urobilinogen, UA 0.2 E.U./dL 0.2 - 1.0 E.U./dL 08/13/2025 10:27 AM EST [facility] Urine Urine specimen obtained by clean catch procedure / Unknown Collection / Unknown 08/13/2025 9:38 AM EST 08/13/2025 10:24 AM EST [facility] - 08/13/2025 10:27 AM EST In absence of clinical symptoms, the presence of pyuria, bacteria, and/or nitrites on the urinalysis result does not correlate with infection. Urine microscopic not indicated. us Chelita Jackson MD URINE ORDERABLES Final Resul t Performing Organization Address City/State/[facility] Co de Phone Number [facility]
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 The last day before reporting a new confirmed COVID-19 would be 12/08/20. -Alida Banda RN 09/09/2020 12/25/2020 documented as of this encounter Care Teams Cellophane Bath Mixer Relationship Specialty Start Date End Date Michaela Sousa APRN [address] [place] [address] PCP - General Internal Medicine 12/9/24 documented as of this encounter
--- OUTSIDE RECORDS SUMMARY | 2025-08-20 06:43 | XMS_ITS | Encounter Summary ---
[facility] Address [address] [place] [address] Care Team Providers Care Drum Attendant Name Role Phone Michaela Sousa APRN Primary Care Provider + [phone] Reason for Visit * Auth/Cert Specialty Diagnoses / Procedures Referred By Contac t Referred To Contact Procedures TOTAL ROBOTIC HYSTERCETOMY BILATERAL SALPINGO-OOPHRECTOMY Referral ID Status Reason Start Date Expiration Date Visits Re quested Visits Authorized [id number] 1 1 Encounter Details Date Type Department Care Team (Late st Contact Info) Description 08/20/2025 6:43 AM EST - 08/20/2025 2:00 PM [facility] Hospital Encounter [facility] OR [address] [place] [address] Chelita Jackson MD [address] [facility] [address] [place] [address] Endometriosis Discharge Disposition: Home or Self Care Social History Tobacco Use Types Packs/Day Years Used Date Smoking Tobacco: Never Passive Smoke Exposure: Never Smokeless Tobacco: Never Alcohol Use Standard Drinks/Week Comments No 0 (1 standard drink = 0.6 oz pur e alcohol) [facility] Utilities Answer Date Recorded In the [...] Date Recorded Retired Total Score 0 05/07/2021 [facility] - Occupational Stress Questionnaire Answer Date [...] things needed for daily living? No 12/10/2024 [place] Depression Scale Answer Date Recorded [place] Depression Scale Total 2 12/22/2024 The thought [...] GED or equivalent No 08/13/2025 Preferred Language Surinamese 08/13/2025 PHQ-2 Answer Date Recorded Patient Health [...] Month) No 08/20/2025 8:10 AM Sandra Mae , RN * Calculated C-SSRS Risk Score (Lifetime/Recent) Answer Date of Assessment Author No Risk Indicated 08/20/2025 8:10 AM Sandra Mae RN * [place] Suicide Severity Rating Scale (Screener/Recent Self-Report) Question Answer Date of Assessment Author 6. Suicidal Behavior (Lifetime) No 8:10 AM Sandra Mae RN documented as of this encounter Discharge Instructions * Attachments The following attachments cannot be sent through Care Everywhere. * Abdominal Hysterectomy Care After (Surinamese) * General Anesthesia Adult Care After (Surinamese) documented in this encounter Medications at Time [...] Number Phone Number for Ride/Caregiver: ADOLFO SPOUSE [phone] Who will be staying with you post procedure for the next 24 hours? Name and Phone Number?: ADOLFO SPOUSE [phone] documented in this encounter OR Notes * Op Note - Chelita Jackson MD - 08/20/2025 9:39 AM EST Hysterectomy Procedure Note Pre-operative Diagnosis: Endometriosis, pelvic pain Post-operative Diagnosis: Endometriosis, Pelvic pain, and Abdominopelvic adhesions Operation: Robotic hysterectomy with bilateral salpingo oophorectomy, lysis of adhesions, excision of endometriosis, fulguration of endometriosis Surgeon: Chelita Jackson MD Assistants: Envelope Stamping Machine Operator: Cristi Montoya PA-C was responsible for performing [...] uterus was sounded and fit with a [employer] intrauterine manipulator. The operators gloves were changed. [...] Visit [facility] [address] [phone] Maday, Aminata Roberts MD [address] [address] Pending Results Name Type Priority Associated Diagnoses Date /Time Tissue Pathology Exam Pathology and Cytology Routine Endometriosis 08/20/2025 10:03 AM EST Scheduled Orders Name Type Priority Associated Diagnoses Order Schedule Tissue Pathology Exam Pathology and Cytology Routine Endometriosis Release Upon Ordering for 1 Occurrences starting 08/20/2025, 1 completed Scheduled Procedures Name Priority Associated Diagnoses Date/Ti me TOTAL LAPAROSCOPIC HYSTERECT JIGAR BILATERAL SALPINGOOPHORECTOMY WITH DAVINCI ROBOT 08/20/2025 8:[address] documented as of this encounter Procedures Procedure Name Priority Date/Time Associated Diagnosis Comments POCT PEFORM URINE STAT 08/20/2025 8:06 AM EST documented in this encounter Results * POC Urine (08/20/2025 8:06 AM EST) HCG, Urine, QL Negative Negative [facility] Lot Number [id number] [facility] Internal Positive Control Positive Positive, Passed [facility] Internal Negative Control Negative Negative, Passed [facility] Expiration Date 02-18-27 [facility] Urine 08/20/2025 8:06 AM EST Darrell Iyer Jr., MD POINT OF CARE TEST ORDRebekah OLIVEROS Final Result [facility]
[address] [place] [address], documented in this encounter Visit Diagnoses Diagnosis Endometriosis determined by laparoscopy- Primary Endometriosis Endometriosis, site unspecified documented in this encounter Admitting Diagnoses Diagnosis Endometriosis determined by laparoscopy documented in this encounter Administered Medications Inactive Administered Medications - up to 3 most recent administrations Medication Order MAR Action Action Date Dose Rate Site acetaminophen (TYLENOL) tablet 1,000 mg 1,000 mg, Oral, Once, On Wed08/20/25 at [...] at 1221, For 1 dose, Created by cabnormat naye [GUDELIA] Do not exceed 4 grams of [...] at 1135, For 1 dose, Created by cabomar yancey (GUDELIA) Caution: Look alike/sound alike drug alert [...] at KVO if renal / if indicated New Bag [...] and THEN promethazine IF ondansetron is ineffective. ([facility]) scopolamine patch 1 mg/72 hr 1 patch, Transdermal - scopolamine, Administer over 72 Hours, Once, On Wed08/20/25 at 0758, For 1 dose, ([facility]) Medication Applied 08/20/2025 7:52 AM EST 1 [...] 0920 (New Bag - Prov ider: Shannan Juárez CRNA) famotidine (PEPCID) tablet 20 mg (COMPLETED) 20 [...] unless provider at bedside for induction. (GUDELIA) 0816 (Given - Provid er: Sandra Chery RN) scopolamine patch 1 mg/72 hr 1 patch, Transdermal - scopolamine, Administer over 72 Hours, Once, On Wed08/20/25 at 0758, For 1 dose, ([facility]) 0752 (Medication Janki lied - Provider: [...] Medication Order 08/18/2025 08/19/2025 08/20/2025 bupivacaine 0.5%-EPINEPHrine [id number] (MARCAINE w/EPI) 0.5% -1:[id number] injection (CANCELED) As Needed, Starting on Wed08/20/25 [...] and THEN promethazine IF ondansetron is ineffective. ([facility]) sodium chloride 0.9 % flush 3-10 mL [...] and THEN promethazine IF ondansetron is ineffective. 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 The last day before reporting a new confirmed COVID-19 would be 12/08/20. -Alida Banda RN 09/09/2020 12/25/2020 documented as of this encounter Care Teams Drum Attendant Relationship Specialty Start Date End Date Michaela Sousa APRN [address] [place] [address] PCP - General Internal Medicine 09/04/24 documented as of this encounter
--- OUTSIDE RECORDS SUMMARY | 2025-08-20 08:54 | XMS_ITS | Encounter Summary ---
[facility] Organization [facility] Address [address] [place] [address] Care Team Providers Care Speech And Language Specialist Name Role Phone Michaela Sousa APRN Primary Care Provider + [phone] Reason for Visit * Auth/Cert Specialty Diagnoses / Procedures Referred By Contac t Referred To Contact Procedures TOTAL ROBOTIC HYSTERCETOMY BILATERAL SALPINGO-OOPHRECTOMY Referral ID Status Reason Start Date Expiration Date Visits Re quested Visits Authorized [id number] 1 1 Encounter Details Date Type Department Care Team (Late st Contact Info) Description 08/20/2025 8:54 AM EST - 08/20/2025 10:47 AM EST Surgery [facility] OR [address] [place] [address] Chelita Jackson MD [address] [facility] [address] [place] [address] TOTAL ROBOTIC HYSTERCETOMY BILATERAL SALPINGO-OOPHRECTOMY Social History Tobacco Use Types Packs/Day Years Used Date Smoking Tobacco: Never Passive Smoke Exposure: Never Smokeless Tobacco: Never Alcohol Use Standard Drinks/Week Comments No 0 (1 standard drink = 0.6 oz pur e alcohol) [facility] Utilities Answer Date Recorded In the past [...] things needed for daily living? No 12/10/2024 [place] Depression Scale Answer Date Recorded [place] Depression Scale Total 2 12/22/2024 The thought [...] GED or equivalent No 08/13/2025 Preferred Language Palestinian 08/13/2025 PHQ-2 Answer Date Recorded Patient Health [...] 08/20/2025 8:10 AM Sandra Mae RN * [place] Suicide Severity Rating Scale (Screener/Recent Self-Report) Question Answer Date of Assessment Author 6. Suicidal Behavior (Lifetime) No 8:10 AM Sandra Mae RN documented as of this encounter Discharge Instructions * Attachments The following attachments cannot be sent through Care Everywhere. * Abdominal Hysterectomy Care After (Palestinian) * General Anesthesia Adult Care After (Palestinian) documented in this encounter Medications at Time [...] Number Phone Number for Ride/Caregiver: ADOLFO SPOUSE [phone] Who will be staying with you post procedure for the next 24 hours? Name and Phone Number?: ADOLFO SPOUSE [phone] documented in this encounter OR Notes * Op Note - Chelita Jackson MD - 08/20/2025 9:39 AM EST Hysterectomy Procedure Note Pre-operative Diagnosis: Endometriosis, pelvic pain Post-operative Diagnosis: Endometriosis, Pelvic pain, and Abdominopelvic adhesions Operation: Robotic hysterectomy with bilateral salpingo oophorectomy, lysis of adhesions, excision of endometriosis, fulguration of endometriosis Surgeon: Chelita Jackson MD Assistants: Change Consultant: Cristi Montoya PA-C was responsible for performing [...] uterus was sounded and fit with a Monserrat-Voc[employer] intrauterine manipulator. The operators gloves were changed. [...] 10/31/2025 3:15 PM EST Office Visit [facility] [address] [phone] Maday, Aminata Roberts MD [address] [address] Pending Results Name Type Priority Associated Diagnoses [...] AM EST) HCG, Urine, QL Negative Negative [facility] Lot Number [id number] [facility] Internal Positive Control Positive Positive, Passed [facility] Internal Negative Control Negative Negative, Passed [facility] Expiration Date 02-18-27 [facility] Urine 08/20/2025 8:06 AM EST Darrell Iyer Jr., MD POINT OF CARE TEST ORDE DOMO Final Result [facility]
[address] [place] [address], documented in this encounter Visit Diagnoses Not [...] 7:52 AM EST 1,000 mg bupivacaine 0.5%-EPINEPHrine 1:683360 (MARCAINE w/EPI) 0.5% -1:631604 injection As Needed, Starting on Wed08/20/25 at [...] at 1221, For 1 dose, Created by [employer] coleide [GUDELIA] Do not exceed 4 grams of [...] and THEN promethazine IF ondansetron is ineffective. ([facility]) scopolamine patch 1 mg/72 hr 1 patch, Transdermal - scopolamine, Administer over 72 Hours, Once, On Wed08/20/25 at 0758, For 1 dose, ([facility]) Medication Applied 08/20/2025 7:52 AM EST 1 [...] On Wed08/20/25 at 0758, For 1 dose, ([facility]) 0752 (Medication Janki lied - Provider: Sandra [...] Medication Order 08/18/2025 08/19/2025 08/20/2025 bupivacaine 0.5%-EPINEPHrine 1:301209 (MARCAINE w/EPI) 0.5% -1:822458 injection (CANCELED) As Needed, Starting on Wed08/20/25 [...] and THEN promethazine IF ondansetron is ineffective. 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 The last day before reporting a new confirmed COVID-19 would be 12/08/20. -Alida Banda RN 09/09/2020 12/25/2020 documented as of this encounter Care Teams Speech And Language Specialist Relationship Specialty Start Date End Date Michaela Sousa APRN [facility] [place] [address] [place] [address] PCP - General Internal Medicine 09/04/24 documented as of this encounter
--- OUTSIDE RECORDS SUMMARY | 2025-08-20 09:12 | XMS_ITS | Encounter Summary ---
Author Organization [facility] Address [address] [place] [address] Care Team Providers Care Sales Attendant Building Materials Name Role Phone SousaSoraidarebekah KING Primary Care Provider + [phone] Reason for Visit * Auth/Cert Specialty Diagnoses / Procedures Referred By Contac t Referred To Contact Procedures TOTAL ROBOTIC HYSTERCETOMY BILATERAL SALPINGO-OOPHRECTOMY Referral ID Status Reason Start Date Expiration Date Visits Re quested Visits Authorized [id number] 1 1 Encounter Details Date Type Department Care Team (Late st Contact Info) Description 08/20/2025 9:12 AM EST Anesthesia Event [facility] OR [address] [place] [phone] Darrell Iyer Jr., MD [address] [place] [id number] Anesthesia Record Procedure Summary Procedure Name Responsible [...] Drains, and Airways Type Details Placement Removal Urethral Catheter Placement Date: 07/29 01/19; Placement Time: 935; Inserted by: Faisal STEVEN; Size: 16 Fr.; Removal Reason: Not present on admission (Not present on arrival to PACU) 08/20/25935 by Clark Parish RN Wound 08/20/25; 0939; N; abdomen; Surgical; x4 laparoscopic sites 08/20/25938 by Clark Parish RN Peripheral IV Placement Date: 07/29 01/19; Placement Time: 0813; Catheter Size: 20 G; Orientation: Anterior, Distal, Left, Upper; Location: Arm; Site Prep: Chlorhexidine; Local Anes: Injectable; Technique: Anatomical landmarks; Inserted by: juanito Noriega RN; Insertion Attempts: 1; Patient Tolerance: Tolerated well; Removal Date: 08/20/25; Removal Time: 13508/20/25 08 by Sandra Chery RN 08/20/25 1355 by Westley Shearer RN ETT Placement Date: 07/29 01/19; Placement Time: 917 (created via procedure documentation); Blade Size: 3; Location: Oral; Removal Date: 08/20/25; Removal Time: 10408/20/25 09 by Shannan Juárez CRNA 08/20/25 104 by Shannan Juárez CRNA documented in this encounter Social History Tobacco Use Types Packs/Day Years Used Date Smoking Tobacco: Never Passive Smoke Exposure: Never Smokeless Tobacco: Never Alcohol Use Standard Drinks/Week Comments No 0 (1 standard drink = 0.6 oz pur e alcohol) [facility] Utilities Answer Date Recorded In the past 12 months has [employer], gas, oil, or water [employer] threatened to shut off services in your [...] Date Recorded Retired Total Score 0 05/07/2021 [facility] [place] of Occupat ional Health - Occupational Stress [...] things needed for daily living? No 12/10/2024 Glady Depression Scale Answer Date Recorded Glady Depression Scale Total 2 12/22/2024 The thought [...] GED or equivalent No 08/13/2025 Preferred Language Bots[place]an 08/13/2025 PHQ-2 Answer Date Recorded Patient Health [...] 08/20/2025 8:10 AM Sandra Mae RN * [place] Suicide Severity Rating Scale (Screener/Recent Self-Report) Question Answer Date of Assessment Author 6. Suicidal Behavior (Lifetime) No 8:10 AM Sandra Mae RN documented as of this encounter OR Notes * Anesthesia Postprocedure Evaluation - Shannan Juárez CRNA - 08/20/2025 10:52 AM EST Patient: Maia Kovacs Procedure Summary Date: 08/20/25 Room / Location: [facility] OR [address] [place] [address] [facility] OR Anesthesia Start: 911 Anesthesia Stop: [...] and Staff Patient location during procedure: OR THEATER SET PRODUCTION DESIGNER/CAA: Shannan Juárez CRNA Indications and Patient Condition [...] Cardiovascular ECG reviewed (+) hypertension (-) past ME, dysrhythmias, angina, cardiac stents ROS comment: ECG NSR ECHO 2020 EF 60% no significant valvular disease Neuro/Psych (+) headaches, psychiatric history (-) seizures, CVA GI/Hepatic/Renal/Endo (+) GERD, PUD (-) no renal disease, diabetes, no thyroid disorderLiver disease: enzyme for ATP missing. 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 Plan discussed with THEATER SET PRODUCTION DESIGNER. CODE STATUS: documented in this encounter Plan of Treatment Upcoming Encounters Date Type Department Care Team (Late st Contact Info) Description 10/31/2025 3:15 PM EST Office Visit [facility] [address] [phone] Maday, Aminata Roberts MD [address] [address] Scheduled Procedures Name Priority Associated Diagnoses Date/Ti [...] and Staff Patient location during procedure: OR THEATER SET PRODUCTION DESIGNER/CAA: Shannan Juárez CRNA Indications and Patient Condition [...] gum same as pre-op and atraumatic intubation Darrell Iyer Jr., MD ANESTHESIA ORDERABLES F [...] drug alert, Indications: Surgical ProphylaxisIndications:Surgical Prophylaxis New Bag 08/20/2025 9:20 AM EST 2,000 mg dexAMETHasone [...] Indicated Resolved Time COVID (History) Comment:Per regional manager sterile processing for Oswaldo , 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 The last day before reporting a new confirmed COVID-19 would be 12/08/20. -Alida Banda RN 09/09/2020 12/25/2020 documented as of this encounter Care Teams Sales Attendant Building Materials Relationship Specialty Start Date End Date Michaela Sousa APRN [facility] [place] [address] [facility] [address] PCP - General Internal Medicine 09/04/24 documented as of this encounter
[2025-08-20 21:56] VITALS: BP 126/84; PULSE 63; RESP 18; TEMP 36.8; O2SAT 100; BMI 23.6
--- NOTE | 2025-08-20 22:02 | ED_ITS ---
Discharge Plan Disposition Patient Disposition: Home, Self-Care Prescriptions Prescriptions: No Action ipratropium-albuterol 0.5 mg-3 mg(2.5 mg base)/3 mL solution for nebulization inhalation Q6H tizanidine 4 mg tablet 4 - 6 mg PO BID amoxicillin 875 mg tablet 875 mg PO BID Qty: 20 0RF gabapentin 300 mg capsule 300 mg PO Patient Comments: TAKE ONE CAPSULE BY MOUTH EVERY 8 HOURS MAY CAUSE DROWSINESS cyanocobalamin (vitamin B-12) 1,000 mcg/mL solution 1,000 mcg SQ Patient Comments: INJECT 1 ML DIRECTED EVERY 28 DAYS pantoprazole 40 mg tablet,delayed release (DR/EC) 40 mg PO ONCE Patient Comments: TAKE ONE TABLET BY MOUTH TWICE DAILY famotidine [Pepcid] 20 mg Tablet 20 mg PO DAILY ondansetron 4 mg tablet,disintegrating 4 mg PO Q8H 3 Days Qty: 9 0RF Referrals Follow up/Referrals: Michaela Sousa APRN [Primary Care Provider, Medical] - See instructions Activity Restrictions/Add. Instructions Additional Instructions/Restrictions: Please follow-up with your primary care provider. Please return to the emergency department if you develop any new or worsening symptoms or become concerned for your health. Clinical Impressions Clinical Impression: Acute postoperative abdominal pain Print Language Print Language: Dominican Discharge ED Provider: Farooq Lomax General Adult HPI <Farooq Lomax MD - Last Filed: 08/20/25 23:44> General Chief complaint: PAIN Stated complaint: Had Hysterectomy 08/20 in severe pain Time Seen by Provider: 08/20/25 21:54 Mode of Arrival: Ambulatory Source of Information: Patient and Spouse Description of Symptoms (Recalled from ER Triage Doc. by RN): PT presents to the ED for evaluation of abd pain. PT had a total hysterectomy on this date at . PT stated she took 5mg OXY at 1999 and an Tylenol. History of Present Illness HPI narrative: Maia Kovacs is a 35-year-old female with a history of endometriosis and ovarian mass status post total hysterectomy today at [facility] by Dr. Jackson who presents to the emergency department for uncontrolled abdominal postop pain. Patient states that she was in significant abdominal pain after the surgery and was requiring IV Dilaudid, however she was discharged home. She has taken 2 doses of oxycodone and 1 g of Tylenol x 2 since then but states that the pain is unbearable. She denies any fevers. She reports some mild vaginal bleeding but stated that this was to be expected. She has not had any vomiting. She does report some right-sided chest pain but believes that may be due to gas pains. Related Data Home Medications ?Medication ?Instructions ?Recorded ?Confirmed famotidine 20 mg tablet (Pepcid) 20 mg PO DAILY 08/12/25 cyanocobalamin (vitamin B-12) 1,000 mcg SQ 02/07/25 1,000 mcg/mL injection solution gabapentin 300 mg capsule 300 mg PO 02/07/25 08/12/25 pantoprazole 40 mg tablet,delayed 40 mg PO ONCE 08/12/25 release ipratropium 0.5 mg-albuterol 3 mg ml inhalation Q6H 08/12/25 (2.5 mg base)/3 mL nebulization soln tizanidine 4 mg tablet 4 - 6 mg PO BID 08/12/25 Previous Rx's ?Medication ?Instructions ?Recorded ondansetron 4 mg disintegrating 4 mg PO Q8H 3 days #9 tabs 08/05/25 tablet amoxicillin 875 mg tablet 875 mg PO BID #20 tabs 08/12 Allergies Allergy/AdvReac Type Severity Reaction Status Date / Time celecoxib (From Celebrex) Allergy Severe Anaphylaxis Verified 08/12/25 11:02 latex (LATEX) Allergy Severe Anaphylaxis Verified 08/12/25 11:02 coconut Allergy Unknown Anaphylaxis Verified 08/12/25 11:02 Pertussis Vaccines Allergy Unknown Unknown Verified 08/12/25 11:02 (PERTUSSIS VACCINES) allergy reaction pineapple (PINEAPPLE) Allergy Unknown Unknown Verified 08/12/25 11:02 allergy reaction Sulfa (Sulfonamide Allergy Unknown Unknown Verified 08/12/25 11:02 Antibiotics) (SULFA allergy (SULFONAMIDE ANTIBIOTICS)) reaction dicyclomine (From Bentyl) AdvReac Blurry Verified 08/12/25 11:02 Vision ketamine AdvReac Rash Verified 08/12/25 11:02 [facility] <Farooq Lomax MD - Last Filed: 08/20/25 23:44> [facility] Disclaimer: The information contained in this section may have been updated after the patient was seen, as this information can be updated by other users. Medical History URI (upper respiratory infection) Sinusitis Viral upper respiratory infection Liver disease Depression Anxiety History of anemia History of gastroesophageal reflux (GERD) Kidney stone Migraine Surgical History History of tonsillectomy History of cholecystectomy History of section Family History Grandfather Cancer Colon Cancer Mother Cancer Thyroid Cancer Sister Cancer Cervical Cancer Grandmother Cancer Maternal Grandmother-Cervical, Breast and Lung Cancer Social History Smoking Status: Never smoker second hand exposure: No alcohol intake: never current occupational status: employed Travel in the last 8 weeks?: None household members: other housing: house 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 current occupational exposures/hazards: No caffeine: Yes Have you lived/traveled outside US in past 30 days?: No Contact w/someone who lives/traveled outside US past 30 days?: No Exposure to someone with infectious disease in past 14 days?: No Do you have a fever (greater than 100.4 F or 38 C)?: No Have you tested positive for COVID-19?: No Exposed to someone with COVID-19 in past 14 days?: No Do you have a sore throat?: No Do you have a cough?: No Do you have any weakness?: No Do you have any diarrhea?: No Are you experiencing any unusual bleeding?: No Do you have any muscle aches/pain?: No Do you have any abdominal pain?: No Are you experiencing loss of taste or smell?: No Other Medical History Have you received the Flu Vaccine for this season: Yes Have you received the Pneumonia Vaccine: No <Farooq Lomax MD - Last Filed: 08/20/25 23:44> ROS Obtained: Yes Systems reviewed as appropriate & no additional complaints except as documented Physical Exam <Farooq Lomax MD - Last Filed: 08/20/25 23:44> General General appearance: alert Comment: Appears uncomfortable, in no respiratory distress Head Head exam: atraumatic Eye Eye exam: Present normal appearance ENT ENT exam: Present normal external ear exam Neck Neck exam: Present full ROM Chest Chest inspection: Present symmetric chest wall rise Respiratory Respiratory exam: Present normal lung sounds bilaterally; Absent respiratory distress, wheezes or stridor Cardiovascular Cardiovascular exam: Present regular rate and normal rhythm Abdominal Exam Abdominal exam: Present soft, tenderness (Diffuse abdominal tenderness with guarding throughout but abdomen is not peritonitic/not rigid) and guarding; Absent distention Comment: Surgical scars appear to be healing well Extremities Exam Extremities exam: Present normal inspection Back Exam Back exam: Present normal inspection Neurological Exam Neurological exam: Present alert and oriented X3 Psychiatric Psychiatric exam: Present normal affect Skin Skin exam: Present warm and dry Medical Decision Making <Farooq Lomax MD - Last Filed: 08/20/25 23:44> Medical Records Screening: Per USPSTF and CDC recommendations, given the prevalence of disease in our region, it is our hospital?s policy to screen for HIV and viral Hepatitis for all patients aged 18 and over and those with ongoing risk factors. Federico Inquiry Pt receiving controlled substance: No Vital Signs: 08/20/25 21:56 08/20/25 22:03 08/21/25 00:36 Temperature 98.3 F 98.3 F 98.6 F Temperature Source Oral Pulse Rate 70 50 L Pulse Rate [Right] 63 Respiratory Rate 18 18 18 Blood Pressure 126/84 113/67 Blood Pressure [Right Arm] 126/84 Blood Pressure Mean [Right Arm] 98 02 Sat by Pulse Oximetry 100 97 Oxygen Delivery Method Room Air Room Air Room Air Lab Data Lab Results 08/20/25 22:10: WBC 9.5, RBC 3.88 L, Hgb 11.3 L, Hct 33.8 L, MCV 87.1, MCH 29.1, MCHC 33.4, RDW 13.2, Plt Count 317, MPV 9.1, Neut % (Auto) 88.9 H, Lymph % (Auto) 4.6 L, [place] % (Auto) 5.9, Eos % (Auto) 0.0 L, Baso % (Auto) 0.2, Neut # (Auto) 8.5 H, Lymph # (Auto) 0.4 L, [place] # (Auto) 0.6, Eos # (Auto) 0.0, Baso # (Auto) 0.0, Total Counted 100, Neutrophils % (Manual) 95 H, Lymphocytes % (Manual) 3 L, Monocytes % (Manual) 2, Platelet Estimate Normal, RBC Morphology Normal, PT 10.9, INR 0.98, Sodium 141, Potassium 3.6, Chloride 106, Carbon Dioxide 24, Anion Gap 14.6, BUN 5 L, Creatinine 0.60, Estimated Creat Clear 153, Estimated GFR 115, Est GFR ( Amer) 139, Glucose 134 H, Calcium 8.7, Total Bilirubin 0.2, AST 30, ALT 19, Alkaline Phosphatase 76, Troponin I < 0.01, Total Protein 7.0, Albumin 4.1, Globulin 2.9, Albumin/Globulin Ratio 1.4, Lipase 31, HCV Ab GAMAL w/Rflx PCR Qn Negative, HIV Ag/Ab Combo Qual Negative 08/20/25 22:26: Urine Color [place], Urine Appearance Clear, Urine pH 6.0, Ur Specific Rosenberg <= 1.005, Urine Protein Negative, Urine Glucose (UA) Trace, Urine Ketones Negative, Urine Blood Trace-i, Urine Nitrate Positive A, Urine Bilirubin Negative, Urine Urobilinogen 1.0, Ur Leukocyte Esterase Negative, Urine RBC Occasional, Urine WBC Occasional, Ur Squamous Epith Cells 3-5, Urine Bacteria Trace, Urine Mucus 1+ 08/20/25 22:53: Lactate 1.7 08/20/25 22:10 08/20/25 22:10 Orders (Tests/Meds): ED MEDICATIONS Discontinued Medications Generic Name Dose Route Start Last Admin Trade Name Freq PRN Reason Stop Dose Admin Hydromorphone HCl 1 mg 08/20/25 22:01 08/20/25 22:27 Hydromorphone 2mg/Ml Syringe IV 08/20/25 22:02 1 mg ONCE ONE Administration Hydromorphone HCl 0.5 mg 08/20/25 23:00 08/20/25 23:05 Hydromorphone 2mg/Ml Syringe IV 08/20/25 23:01 0.5 mg ONCE ONE Administration Lactated Ringer's 500 mls @ 999 mls/hr 08/20/25 22:02 08/20/25 23:08 Lactated Ringer's 500ml IV 08/20/25 22:32 Infused .Q31M ONE Infusion Iopamidol 75 ml 08/20/25 23:44 08/20/25 23:45 Iopamidol-370 (76%);100ml Bottle IV 08/20/25 23:45 75 ml ONCE ONE Administration Ondansetron HCl 4 mg 08/20/25 22:02 08/20/25 22:26 Ondansetron 4mg/2ml Vial IV 08/20/25 22:03 4 mg ONCE ONE Administration Oxycodone HCl 10 mg 08/21/25 00:29 08/21/25 00:45 Oxycodone 5mg Immediate Release Tablet PO 08/21/25 00:30 10 mg ONCE ONE Administration Sodium Chloride 10 ml 08/20/25 23:44 08/20/25 23:45 Sodium Chloride 0.9% 10ml Syr (Rad Only) IV 09/19/25 23:43 10 ml NEEDED PRN Administration Maintain IV Site ORDERS Category Date Time Status CT abdomen pelvis w con Stat Cat Scan 08/20/25 23:11 Completed CBC w/Auto Diff [Complete Blood Count Auto Diff] Stat Lab 08/20/25 22:10 Completed CMP [Comprehensive Metabolic Panel] Stat Lab 08/20/25 22:10 Completed HIV Combo Stat Lab 08/20/25 22:10 Completed Hepatitis C Ab Qual. W/ RFX Stat Lab 08/20/25 22:10 Completed Lactic Acid Stat Lab 08/20/25 22:53 Completed Lipase Stat Lab 08/20/25 22:10 Completed PT INR [Prothrombin Time INR] Stat Lab 08/20/25 22:10 Completed Troponin I Stat Lab 08/20/25 22:10 Completed UA [Urinalysis and Microscopic] Stat Lab 08/20/25 22:26 Completed Urine Culture Stat Micro 08/20/25 22:26 Received ECG Data Tracing #1: I reviewed this ECG and interpreted as documented below: Sinus bradycardia. No ST elevation or depression. QTc 413 Medical Decision Narrative: Maia Kovacs is a 35-year-old female with a history of endometriosis and ovarian mass status post total hysterectomy today at [facility] by Dr. Jackson who presents to the emergency department for uncontrolled abdominal postop pain. Patient states that she was in significant abdominal pain after the surgery and was requiring IV Dilaudid, however she was discharged home. She has taken 2 doses of oxycodone and 1 g of Tylenol x 2 since then but states that the pain is unbearable. She denies any fevers. She reports some mild vaginal bleeding but stated that this was to be expected. She has not had any vomiting. She does report some right-sided chest pain but believes that may be due to gas pains. On arrival, patient is normotensive, heart rate within normal limits, afebrile, oxygen saturation 97% on room air. Physical exam, as stated above, revealed uncomfortable appearing female in no respiratory distress. Cardiopulmonary exam without wheezing, rales or rhonchi. No murmurs or rubs. Abdomen is diffusely tender without peritonitis. Laparoscopic surgical scars without acute abnormality. Differential diagnosis includes, but is not limited to: Postoperative pain, urinary tract fraction, electrolyte derangement, among others. I did consider obtaining CT imaging of the abdomen and pelvis, however will attempt to control patient's pain and reassess and determine need for imaging for possible bowel perforation or intra-abdominal injury if pain is not improved and/or significant lab abnormality. Patient was initially treated with 1 mg of IV Dilaudid and 4 mg of IV Zofran. Patient is no leukocytosis, mildly low hemoglobin of 11.3, hematocrit of 33.8 (baseline hemoglobin appears to be 12.9), coagulation studies unremarkable. CMP unremarkable nonactionable with no APOLINAR or electrolyte derangement. Lactate normal at 1.7. Liver enzymes and bilirubin within normal limits. Initial troponin less than 0.01. Urinalysis is positive for nitrates but only has occasional white blood cells, occasional RBCs, trace bacteria. Leukocyte esterase negative. Patient continued to have significant pain but stated that Dilaudid did not help. Will give additional 0.5 mg of Dilaudid. Patient states that she has had multiple GI bleeds in the past and cannot take NSAIDs. She took Tylenol just prior to arrival. Given this, will obtain CT abdomen pelvis with IV contrast to evaluate for possible bowel injury or other acute pathology to explain patient's severe symptoms. Patient's care was ultimately handed off to the oncoming physician, Dr. Alberts, pending completion of her workup. If pain is uncontrolled or there is injury on her CT imaging, she would likely require transfer to [facility] where her surgery was just performed. <Stepan Alberts MD - Last Filed: 08/21/25 01:43> Vital Signs: 08/20/25 21:56 08/20/25 22:03 08/21/25 00:36 Temperature 98.3 F 98.3 F 98.6 F Temperature Source Oral Pulse Rate 70 50 L Pulse Rate [Right] 63 Respiratory Rate 18 18 18 Blood Pressure 126/84 113/67 Blood Pressure [Right Arm] 126/84 Blood Pressure Mean [Right Arm] 98 02 Sat by Pulse Oximetry 100 97 Oxygen Delivery Method Room Air Room Air Room Air Lab Data Lab Results 08/20/25 22:10: WBC 9.5, RBC 3.88 L, Hgb 11.3 L, Hct 33.8 L, MCV 87.1, MCH 29.1, MCHC 33.4, RDW 13.2, Plt Count 317, MPV 9.1, Neut % (Auto) 88.9 H, Lymph % (Auto) 4.6 L, [place] % (Auto) 5.9, Eos % (Auto) 0.0 L, Baso % (Auto) 0.2, Neut # (Auto) 8.5 H, Lymph # (Auto) 0.4 L, [place] # (Auto) 0.6, Eos # (Auto) 0.0, Baso # (Auto) 0.0, Total Counted 100, Neutrophils % (Manual) 95 H, Lymphocytes % (Manual) 3 L, Monocytes % (Manual) 2, Platelet Estimate Normal, RBC Morphology Normal, PT 10.9, INR 0.98, Sodium 141, Potassium 3.6, Chloride 106, Carbon Dioxide 24, Anion Gap 14.6, BUN 5 L, Creatinine 0.60, Estimated Creat Clear 153, Estimated GFR 115, Est GFR ( Amer) 139, Glucose 134 H, Calcium 8.7, Total Bilirubin 0.2, AST 30, ALT 19, Alkaline Phosphatase 76, Troponin I < 0.01, Total Protein 7.0, Albumin 4.1, Globulin 2.9, Albumin/Globulin Ratio 1.4, Lipase 31, HCV Ab GAMAL w/Rflx PCR Qn Negative, HIV Ag/Ab Combo Qual Negative 08/20/25 22:26: Urine Color [place], Urine Appearance Clear, Urine pH 6.0, Ur Specific Rosenberg <= 1.005, Urine Protein Negative, Urine Glucose (UA) Trace, Urine Ketones Negative, Urine Blood Trace-i, Urine Nitrate Positive A, Urine Bilirubin Negative, Urine Urobilinogen 1.0, Ur Leukocyte Esterase Negative, Urine RBC Occasional, Urine WBC Occasional, Ur Squamous Epith Cells 3-5, Urine Bacteria Trace, Urine Mucus 1+ 08/20/25 22:53: Lactate 1.7 Orders (Tests/Meds): ED MEDICATIONS Discontinued Medications Generic Name Dose Route Start Last Admin Trade Name Rhettq PRN Reason Stop Dose Admin Hydromorphone HCl 1 mg 08/20/25 22:01 08/20/25 22:27 Hydromorphone 2mg/Ml Syringe IV 08/20/25 22:02 1 mg ONCE ONE Administration Hydromorphone HCl 0.5 mg 08/20/25 23:00 08/20/25 23:05 Hydromorphone 2mg/Ml Syringe IV 08/20/25 23:01 0.5 mg ONCE ONE Administration Lactated Ringer's 500 mls @ 999 mls/hr 08/20/25 22:02 08/20/25 23:08 Lactated Ringer's 500ml IV 08/20/25 22:32 Infused .Q31M ONE Infusion Iopamidol 75 ml 08/20/25 23:44 08/20/25 23:45 Iopamidol-370 (76%);100ml Bottle IV 08/20/25 23:45 75 ml ONCE ONE Administration Ondansetron HCl 4 mg 08/20/25 22:02 08/20/25 22:26 Ondansetron 4mg/2ml Vial IV 08/20/25 22:03 4 mg ONCE ONE Administration Oxycodone HCl 10 mg 08/21/25 00:29 08/21/25 00:45 Oxycodone 5mg Immediate Release Tablet PO 08/21/25 00:30 10 mg ONCE ONE Administration Sodium Chloride 10 ml 08/20/25 23:44 08/20/25 23:45 Sodium Chloride 0.9% 10ml Syr (Rad Only) IV 09/19/25 23:43 10 ml NEEDED PRN Administration Maintain IV Site ORDERS Category Date Time Status CT abdomen pelvis w con Stat Cat Scan 08/20/25 23:11 Completed CBC w/Auto Diff [Complete Blood Count Auto Diff] Stat Lab 08/20/25 22:10 Completed CMP [Comprehensive Metabolic Panel] Stat Lab 08/20/25 22:10 Completed HIV Combo Stat Lab 08/20/25 22:10 Completed Hepatitis C Ab Qual. W/ RFX Stat Lab 08/20/25 22:10 Completed Lactic Acid Stat Lab 08/20/25 22:53 Completed Lipase Stat Lab 08/20/25 22:10 Completed PT INR [Prothrombin Time INR] Stat Lab 08/20/25 22:10 Completed Troponin I Stat Lab 08/20/25 22:10 Completed UA [Urinalysis and Microscopic] Stat Lab 08/20/25 22:26 Completed Urine Culture Stat Micro 08/20/25 22:26 Received Medical Decision Narrative: Maia Kovacs is a 35-year-old female with a history of endometriosis and ovarian mass status post total hysterectomy today at [facility] by Dr. Jackson who presents to the emergency department for uncontrolled abdominal postop pain. Patient states that she was in significant abdominal pain after the surgery and was requiring IV Dilaudid, however she was discharged home. She has taken 2 doses of oxycodone and 1 g of Tylenol x 2 since then but states that the pain is unbearable. She denies any fevers. She reports some mild vaginal bleeding but stated that this was to be expected. She has not had any vomiting. She does report some right-sided chest pain but believes that may be due to gas pains. On arrival, patient is normotensive, heart rate within normal limits, afebrile, oxygen saturation 97% on room air. Physical exam, as stated above, revealed uncomfortable appearing female in no respiratory distress. Cardiopulmonary exam without wheezing, rales or rhonchi. No murmurs or rubs. Abdomen is diffusely tender without peritonitis. Laparoscopic surgical scars without acute abnormality. Differential diagnosis includes, but is not limited to: Postoperative pain, urinary tract fraction, electrolyte derangement, among others. I did consider obtaining CT imaging of the abdomen and pelvis, however will attempt to control patient's pain and reassess and determine need for imaging for possible bowel perforation or intra-abdominal injury if pain is not improved and/or significant lab abnormality. Patient was initially treated with 1 mg of IV Dilaudid and 4 mg of IV Zofran. Patient is no leukocytosis, mildly low hemoglobin of 11.3, hematocrit of 33.8 (baseline hemoglobin appears to be 12.9), coagulation studies unremarkable. CMP unremarkable nonactionable with no APOLINAR or electrolyte derangement. Lactate normal at 1.7. Liver enzymes and bilirubin within normal limits. Initial troponin less than 0.01. Urinalysis is positive for nitrates but only has occasional white blood cells, occasional RBCs, trace bacteria. Leukocyte esterase negative. Patient continued to have significant pain but stated that Dilaudid did not help. Will give additional 0.5 mg of Dilaudid. Patient states that she has had multiple GI bleeds in the past and cannot take NSAIDs. She took Tylenol just prior to arrival. Given this, will obtain CT abdomen pelvis with IV contrast to evaluate for possible bowel injury or other acute pathology to explain patient's severe symptoms. Patient's care was ultimately handed off to the oncoming physician, Dr. Alberts, pending completion of her workup. If pain is uncontrolled or there is injury on her CT imaging, she would likely require transfer to [facility] where her surgery was just performed. Lexus [facility]: I assumed care of the patient at the time of handoff from the prior provider. On reassessment patient reported her pain is improved while she has the Dilaudid. CT imaging was independently turbid by me, she has some pneumoperitoneum and air within the bladder, but this is expected in the immediate postoperative setting. There is no bladder tic, no bowel thickening, no blood within the abdomen etc. Patient is not peritonitic on exam. Patient was given 10 mg of p.o. oxycodone for longer acting pain control and after shared decision making patient was discharged home at her request. She will follow-up with her surgeon tomorrow. Discharge instructions given. Critical Care <Farooq Lomax MD - Last Filed: 08/20/25 23:44> Critical Care Time Critical Care Time: No
[2025-08-20 22:03] VITALS: BP 126/84; PULSE 70; RESP 18; TEMP 36.8; O2SAT 97
--- OUTSIDE RECORDS SUMMARY | 2025-08-20 22:04 | XMS_ITS | Encounter Summary ---
Author Organization [facility] Address [address] [place] [address] Care Team Providers Care Grain Roaster Name Role Phone Lars Michaela KING Primary Care Provider + [phone] Reason for Visit * Reason Comments Med Refill Encounter Details Date Type Department Care Team (Late st Contact Info) Description 07/27/2025 Refill [facility] [address] [id number] Aminata Nassar MD [address] [place] [address] Hyperemesis gravidarum Social History Tobacco Use Types Packs/Day Years Used Date Smoking Tobacco: Never Passive Smoke Exposure: Never Smokeless Tobacco: Never Alcohol Use Standard Drinks/Week Comments No 0 (1 standard drink = 0.6 oz pur e alcohol) [facility] Utilities Answer Date Recorded In the past 12 months has [employer], gas, oil, or water [employer] threatened to shut off services in your [...] Date Recorded Retired Total Score 0 05/07/2021 [facility] - Occupational Stress Questionnaire Answer [...] things needed for daily living? No 12/10/2024 [place] Depression Scale Answer Date Recorded [place] Depression Scale Total 2 12/22/2024 The thought [...] GED or equivalent No 12/10/2024 Preferred Language Saudi Arabian 12/10/2024 PHQ-2 Answer Date Recorded Patient Health [...] Description 10/31/2025 3:15 PM EST Office Visit [facility] [address] [place] [address] MadayAminata jack MD [address] [facility] [address] [place] [address] Scheduled Procedures Name Priority Associated Diagnoses Date/Ti me TOTAL LAPAROSCOPIC HYSTERECT JIGAR BILATERAL SALPINGOOPHORECTOMY WITH DAVINCI ROBOT 08/20/2025 8:[address] documented as of this encounter Visit Diagnoses Diagnosis Hyperemesis gravidarum Mild hyperemesis gravidarum, unspecified as to episode of care documented in this encounter Additional Health Concerns Infection Onset Date Last Indicated Resolved Time COVID (History) Comment:Per regional range ecologist for [facility] , 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 The last day before reporting a new confirmed COVID-19 would be 12/08/20. -Alida Banda RN 09/09/2020 12/25/2020 documented as of this encounter Care Teams Grain Roaster Relationship Specialty Start Date End Date Michaela Sousa APRN [address] [place] [address] FELIPE MOLINA [id number] PCP - General Internal Medicine 09/04/24 documented as of this encounter
--- OUTSIDE RECORDS SUMMARY | 2025-08-20 22:04 | XMS_ITS | Encounter Summary ---
Author Organization [facility] Address [address] [place] [address] Care Team Providers Care Glove Machine Operator Name Role Phone Michaela Sousa APRN Primary Care Provider + [phone] Encounter Details Date Type Department Care Team (Latest Contact Info) Description 08/20/2025 Travel Social History Tobacco Use Types Packs/Day Years Used Date Smoking Tobacco: Never Passive Smoke Exposure: Never Smokeless Tobacco: Never Alcohol Use Standard Drinks/Week Comments No 0 (1 standard drink = 0.6 oz pur e alcohol) [facility] Utilities Answer Date Recorded In the past 12 months has [employer], gas, oil, or water company threatened to [...] Date Recorded Retired Total Score 0 05/07/2021 [facility] [place] of Occupat ional Health - Occupational Stress [...] things needed for daily living? No 12/10/2024 [place] Depression Scale Answer Date Recorded [place] Depression Scale Total 2 12/22/2024 The thought [...] GED or equivalent No 08/13/2025 Preferred Language Egyptian 08/13/2025 PHQ-2 Answer Date Recorded Patient Health [...] 08/20/2025 8:10 AM Sandra Mae RN * [place] Suicide Severity Rating Scale (Screener/Recent Self-Report) Question Answer Date of Assessment Author 6. Suicidal Behavior (Lifetime) No 8:10 AM Sandra Mae RN documented as of this encounter Plan of Treatment Upcoming Encounters Date Type Department Care Team (Late st Contact Info) Description 10/31/2025 3:15 PM EST Office Visit [facility] [address] [phone] MadayAminata jack MD [address] [address] Scheduled Procedures Name Priority Associated Diagnoses Date/Ti me TOTAL LAPAROSCOPIC HYSTERECT JIGAR BILATERAL SALPINGOOPHORECTOMY WITH DAVINCI ROBOT 08/20/2025 8:[address] documented as of this encounter Visit Diagnoses Not on filedocumented in this encounter Additional Health Concerns Infection Onset Date Last Indicated Resolved Time COVID (History) Comment:Per regional general adjuster for Oswaldo Campos, 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 The last day before reporting a new confirmed COVID-19 would be 12/08/20. -Alida Banda RN 09/09/2020 12/25/2020 documented as of this encounter Care Teams Glove Machine Operator Relationship Specialty Start Date End Date Michaela Sousa APRN [address] [place] [address] [place] [address] PCP - General Internal Medicine 09/04/24 documented as of this encounter
--- OUTSIDE RECORDS SUMMARY | 2025-08-20 22:04 | XMS_ITS | Clinical Summary ---
Author Organization [facility] Address [address] [place] [address] Care Team Providers Care Analytics Architect Name Role Phone SousaMichaela sheehan Juani KING Primary Care Provider [phone] Allergies Active Allergy Reactions Criticality Noted Date [...] or split. 30 tablet 3 Active B Rvzlqnn-Yojwky-VJ (B Complete) tablet Active pantoprazole (ProtoNix) 20 [...] declined 02/25/2023 How often do you attend congregational or mandaeism serv ices? Patient declined 02/25/2023 Do you belong to any clubs o r organizations such as congregational groups, unions, fraternal or athletic groups, or [...] Recorded Patient Health Questionnaire-2 Score 4 03/01/2023 [facility] of Occupat ional Health - [...] drink first t donovan in the morning (EYE-NUCLEAR POWERPLANT MECHANIC) to steady your nerves or to [...] Vaccines (1 - 3-dose SCDM series) 2019 [id number] Vaccine (3 - Pfizer risk series) 06/04/2021 [...] Historical Provider LAB BLOOD ORDERABLES Final R Talisma Performing Organization Address [facility] Co de Phone Number SUNQUEST * HIV 1 & 2 Antibody/Antigen Screen (12/18/2017 5:52 AM EDT) HIV 1 Result NONREACTIVE Screening for HIV 1 and 2 antibodies is NONREACTIVE. No confirmatory testing is required. SUNQUEST 12/18/2017 5:52 AM EDT 12/18/2017 6:28 AM EDT Historical Provider LAB BLOOD ORDERABLES Final R esult Performing Organization Address City/State/[facility] Co de Phone Number SUNQUEST from Last 3 Months or Most Recently Relevant to Health Maintenance Insurance ANDRES Care Teams Analytics Architect Relationship Specialty Start Date End Date Michaela Sousa APRN [address] [place] [address] PCP - General 07/24/21
--- OUTSIDE RECORDS SUMMARY | 2025-08-20 22:04 | XMS_ITS | Encounter Summary ---
Author Organization [facility] Address [address] [place] [address] Care Team Providers Care Electronics Assembler Name Role Phone Michaela oSusa APRN Primary Care Provider + [phone] Encounter Details Date Type Department Care Team (Late st Contact Info) Description 07/23/2025 Prep for Surgery [facility] ORDERS ONLY [address] [place] [address] Chelita Jackson MD [address] [facility] [address] [place], [place] [id number] Endometriosis determined by laparoscopy (Primary Dx) Social History Tobacco Use Types Packs/Day Years Used Date Smoking Tobacco: Never Passive Smoke Exposure: Never Smokeless Tobacco: Never Alcohol Use Standard Drinks/Week Comments No 0 (1 standard drink = 0.6 oz pur e alcohol) [facility] Utilities Answer Date Recorded In the past 12 months has [employer], oil, or water [employer] threatened to shut off services in your [...] Date Recorded Retired Total Score 0 05/07/2021 [facility] [place] of Occupat ional Health - Occupational Stress [...] things needed for daily living? No 12/10/2024 [place] Depression Scale Answer Date Recorded [place] Depression Scale Total 2 12/22/2024 The thought [...] GED or equivalent No 12/10/2024 Preferred Language Croatian 12/10/2024 PHQ-2 Answer Date Recorded Patient Health [...] 3:15 PM EST Office Visit [facility] [address] [phone] MadayAminata MD [address] [address] Scheduled Procedures Name Priority Associated Diagnoses Date/Ti me TOTAL LAPAROSCOPIC HYSTERECT JIGAR BILATERAL SALPINGOOPHORECTOMY WITH DAVINCI ROBOT 08/20/2025 8:[address] documented as of this encounter Results * Urinalysis With Culture If Indicated - Urine, Clean Catch (08/13/2025 9:38 AM EST) Color, UA Yellow Yellow, Straw 08/13/2025 10:27 AM EST [facility] Appearance, UA Clear Clear 08/13/2025 10:27 AM EST [facility] pH, UA 5.5 5.0 - 8.0 08/13/2025 10:27 AM [facility] Specific Susan, UA 1.014 1.005 - 1.030 08/13/2025 10:27 AM [facility] Glucose, UA Negative Negative 08/13/2025 10:27 AM [facility] Ketones, UA Negative Negative 08/13/2025 10:27 AM [facility] Bilirubin, UA Negative Negative 08/13/2025 10:27 AM [facility] Blood, UA Negative Negative 08/13/2025 10:27 AM [facility] Protein, UA Negative Negative 08/13/2025 10:27 AM [facility] Leuk Esterase, UA Negative Negative 08/13/2025 10:27 AM [facility] Nitrite, UA Negative Negative 08/13/2025 10:27 AM [facility] Urobilinogen, UA 0.2 E.U./dL 0.2 - 1.0 E.U./dL 08/13/2025 10:27 AM [facility] Urine Urine specimen obtained by clean catch procedure / Unknown Collection / Unknown 08/13/2025 9:38 AM EST 08/13/2025 10:24 AM EST [facility] - 08/13/2025 10:27 AM EST In absence of clinical symptoms, the presence of pyuria, bacteria, and/or nitrites on the urinalysis result does not correlate with infection. Urine microscopic not indicated. us Chelita Jackson MD URINE ORDERABLES Final Resul t [facility]
[address] [place] [address], documented in this encounter Visit Diagnoses Diagnosis Endometriosis determined by laparoscopy- Primary documented in this encounter Additional Health Concerns Infection Onset Date Last Indicated Resolved Time COVID (History) Comment:Per regional creative coordinator for Oswaldo [facility], 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 The last day before reporting a new confirmed COVID-19 would be 12/08/20. -Alida Banad RN 09/09/2020 12/25/2020 documented as of this encounter Care Teams Electronics Assembler Relationship Specialty Start Date End Date Michaela Sousa APRN [address] [place] [address] PCP - General Internal Medicine 09/04/24 documented as of this encounter
--- OUTSIDE RECORDS SUMMARY | 2025-08-20 22:04 | XMS_ITS | Referral Summary ---
Author Organization [facility] ([place], [place], [place], [place], [place]) Address [address] [place] [address] Care Team Providers Care Supervisor Television Chassis Repair Name Role Phone Unavailable Primary Care Provider [...] Date Tommie rded Speak language other than Greek at home Not on file 10/15/2023 Want [...] Advance Directives For more information, please contact: [phone] * Full Code (Latest Code Status on File) Date Activated Date Inactivated Comments 11/11/2022 7:28 AM 11/11/2022 12:16 PM
--- OUTSIDE RECORDS SUMMARY | 2025-08-20 22:04 | XMS_ITS | Clinical Summary ---
Author Organization [facility] Address [facility] [address] [place], [place] [address] Phone Care Team Providers Care Clay Products Glazer Name Role Phone Unavailable Primary Care Provider [...] a complete record from that organization. b ereznox-B-oqyfo acid (NEPHROCAP) 1 mg Oral Capsule Take [...] (07/05/2020): Added automatically from request for surgery [id number] Pelvic pain 07/05/2020 Overview (07/05/2020): Added automatically from request for surgery [id number] Scoliosis of thoracic spine 03/09/2019 S/P endometrial [...] Story LPN Medical Devices Implanted Type Area Drafter Electrical Device Identifier Shelf Expiration Date Model / Serial / Lot Screw For Bridge Insurance [facility] CHOICE PLUS [facility] CHOICE PLUS [facility] CHOICE PLUS [facility] CHOICE PLUS [facility] CHOICE PLUS * Guarantor: Maia Kovacs Account Type Relation to Patient Date of Phone Billing Address [place] Personal Family Self Advance Directives For more information, please contact: [phone] * Full Code (Latest Code Status on [...]
--- OUTSIDE RECORDS SUMMARY | 2025-08-20 22:04 | XMS_ITS | Encounter Summary ---
Author Organization [place] [address] Care Team Providers Care Energy Engineer Name Role Phone Radha Ordaz LPN Unavailable Unav ailable Encounter Details Date Type Department Care Team (Late st Contact Info) Description 11/02/2018 Lab Requisition [facility] [place] [address] Wendy Emerson MD [address] [place] [phone] Other specified abnormal findings of blood [...] HORMONE -REF LAB (11/02/2018 8:40 AM EST) [facility] ACTH 21 6 - 58 pg/mL 11/04/2018 2:20 PM EST [employer] Comment: INTERPRETIVE INFORMATION: Adrenocorticotropic Hormone Some types of synthetic ACTH are not detected by this assay. Access complete set of age- and/or gender-specific reference intervals for this test in the [facility] Laboratory Test Directory ([facility]). Performed by [facility], [address] [place] [id number] [email or web address], Robert Restrepo MD, Lab. Director Blood VENOUS BLOOD / Unknown 11/02/2018 8:40 AM EST 11/02/2018 2:17 PM EST us Wendy Emerson MD CHEMISTRY ORDERABLES Fin al Result [facility] [address] [place] [address] documented in this encounter Visit Diagnoses Diagnosis Other specified abnormal findings of blood chemistry documented in this encounter Additional Health Concerns Assessment Noted Time PHQ-9 Depression Total Score: 2 10/07/19 19 4:43 PM EST PHQ-2 Depression Total Score: 2 10/07/19 19 4:43 PM EST documented as of this encounter Care Teams Energy Engineer Relationship Specialty Start Date End Date Radha Ordaz LPN Software Programmer Licensed Practical Nurse 03/15/20 04/02/20 documented as of this encounter
--- OUTSIDE RECORDS SUMMARY | 2025-08-20 22:04 | XMS_ITS | Encounter Summary ---
Author Organization [facility] Address [address] [place] [address] Care Team Providers Care Oracle Fusion Consultant Name Role Phone Michaela Sousa APRN Primary Care Provider + [phone] Encounter Details Date Type Department Care Team (Latest Contact Info) Description 08/13/2025 Travel Social History Tobacco Use Types Packs/Day Years Used Date Smoking Tobacco: Never Passive Smoke Exposure: Never Smokeless Tobacco: Never Alcohol Use Standard Drinks/Week Comments No 0 (1 standard drink = 0.6 oz pur e alcohol) [facility] Utilities Answer Date Recorded In the past 12 months has [employer], gas, oil, or water company threatened to [...] Recorded Retired Total Score 0 05/07/2021 [facility] [place] of Occupat ional Health - Occupational Stress [...] things needed for daily living? No 12/10/2024 [place] Depression Scale Answer Date Recorded [place] Depression Scale Total 2 12/22/2024 The thought [...] GED or equivalent No 08/13/2025 Preferred Language Bermudian 08/13/2025 PHQ-2 Answer Date Recorded Patient Health [...] [facility] [address] [phone] MadayAminata MD [address] [address] Scheduled Procedures Name Priority Associated Diagnoses Date/Ti me TOTAL LAPAROSCOPIC HYSTERECT JIGAR BILATERAL SALPINGOOPHORECTOMY WITH DAVINCI ROBOT 08/20/2025 8:[address] documented as of this encounter Visit Diagnoses Not on filedocumented in this encounter Additional Health Concerns Infection Onset Date Last Indicated Resolved Time COVID (History) Comment:[facility] 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 The last day before reporting a new confirmed COVID-19 would be 12/08/20. -Alida Banda RN 09/09/2020 12/25/2020 documented as of this encounter Care Teams Oracle Fusion Consultant Relationship Specialty Start Date End Date Michaela Sousa APRN [address] [place] [id number] PCP - General Internal Medicine 09/04/24 documented as of this encounter
--- OUTSIDE RECORDS SUMMARY | 2025-08-20 22:04 | XMS_ITS | Encounter Summary ---
Author Organization [place] [address] Care Team Providers Care Photographer Aerial Name Role Phone Radha Ordaz LPN Unavailable Unav ailable Encounter Details Date Type Department Care Team (Late st Contact Info) Description 11/02/2018 Lab Requisition [facility] [place] [address] Wendy Emerson MD [address] [place] [phone] Other specified abnormal findings of blood [...] 19.47 mcg/dL 9 5:29 PM EST PREFERRED [employer], [employer] Blood VENOUS BLOOD / Unknown 11/02/2018 9:45 AM EST 11/02/2018 4:09 PM EST Narrative [employer]ED [employer], [employer] - 11/02/2018 5:29 PM EST Normal Peak : > 20 ug/dl Wendy Emerson MD CHEMISTRY ORDERABLES Fin al Result Performing Organization Address [facility] de Phone Number [employer] [address] [place] [address] , [place] [address] * CORTISOL 30 MINUTES (11/02/2018 9:15 AM EST) Cortisol 30 Min 17.48 mcg/dL 9 5:35 PM EST [employer] Blood VENOUS BLOOD / Unknown 11/02/2018 9:15 AM EST 11/02/2018 4:09 PM EST Narrative [email or web address], [employer] - 11/02/2018 5:35 PM EST Normal Peak : > 20 ug/dl Wendy Emerson MD CHEMISTRY ORDERABLES Fin al Result Performing Organization Address [facility] Phone Number [employer] [address] [facility] , [place] [address] * CORTISOL BASELINE (11/02/2018 8:40 AM EST) Cortisol Baseline 10.37 mcg/dL 11/02/2018 5:35 PM EST [employer] Blood VENOUS BLOOD / Unknown 11/02/2018 8:40 AM EST 11/02/2018 4:09 PM EST Narrative [employer] - 11/02/2018 5:35 PM EST Ingestion of jose doses of biotin (>5 mg/day) taken within 8 hours of drawing blood sample can interfere with this immunoassay test. Wendy Emerson MD CHEMISTRY ORDERABLES Fin al Result Performing Organization Address [facility] de Phone Number [employer] [facility] [address] [facility] , [place] [address] documented in this encounter Visit Diagnoses Diagnosis Other specified abnormal findings of blood chemistry documented in this encounter Additional Health Concerns Assessment Noted Time PHQ-9 Depression Total Score: 2 10/07/19 19 4:43 PM EST PHQ-2 Depression Total Score: 2 10/07/19 19 4:43 PM EST documented as of this encounter Care Teams Photographer Aerial Relationship Specialty Start Date End Date Radha Ordaz LPN Car Body Inspector Licensed Practical Nurse 03/15/20 04/02/20 documented as of this encounter
--- OUTSIDE RECORDS SUMMARY | 2025-08-20 22:04 | XMS_ITS | Data Portability ---
Author Organization [facility] RONDA HobbsS FRISCO CLOSED Address [address] [place] [address] Care Team Providers Care Metal Bonding Assembler Name Role Phone MATTHEW RAMSEY Referring Provider Assessment No assessment recorded. Plan of Treatment Reminders Order Date Submit Date Provider Last Modified By Organization Details Last Modified Time Details Appointments NEW PATIENT 2024 03:40P M JULIA FOX MD Not available Not available Not available Lab urinalysi s panel, auto [address] [facility], [address] [place] [address], [address] [place] [address], [id number], 11/30/2022 17:16:25 Referral None recorded. Procedures None recorded. Surgeries None recorded. Imaging None recorded. Medication Orders hydrocodo ne 7.5 mg-acetam inophen 325 mg tablet [address] [facility], [address] [place] [address], [id number], 12/01/2022 23:16:21 Patient TargetsNo targets recorded. Patient InstructionsNo instructions recorded. Reason for Referral None Reported. Results Created Date Observation Date Name Description Value Unit Range Abnormal Flag Note LastModifiedBy Organization Detail LastModifiedTime 12/01/19 23 11/30/2022 urina lysis panel , auto Unknown Analyte Clean Catch Not Available [facility] [address], [place], [address], 11/30/2022 15:52:30 12/01/19 23 11/30/2022 urina lysis panel , auto Unknown Analyte Yellow Not Available [facility] [address], [place], [address], 11/30/2022 15:52:30 12/01/19 23 11/30/2022 urina lysis panel , auto Unknown Analyte Clear Not Available [facility] [address], [place], [address], 11/30/2022 15:52:30 12/01/19 23 11/30/2022 urina lysis panel , auto Unknown Analyte 1.015 Not Available [facility] [address], [place], [address], 11/30/2022 15:52:30 12/01/19 23 11/30/2022 urina lysis panel , auto Unknown Analyte 7.0 Not Available [facility] [address], [place], [address], 11/30/2022 15:52:30 12/01/19 23 11/30/2022 urina lysis panel , auto Unknown Analyte Negati ve Not Available [facility] [address], [place], [address], 11/30/2022 15:52:30 12/01/19 23 11/30/2022 urina lysis panel , auto Unknown Analyte Negati ve Not Available [facility] [address], [place], [address], 11/30/2022 15:52:30 12/01/19 23 11/30/2022 urina lysis panel , auto Unknown Analyte Negati ve Not Available [facility] [address], [place], [address], 11/30/2022 15:52:30 12/01/19 23 11/30/2022 urina lysis panel , auto Unknown Analyte Normal Not Available [facility] [address], [place], [address], 11/30/2022 15:52:30 12/01/19 23 11/30/2022 urina lysis panel , auto Unknown Analyte Negati ve Not Available [facility] [address], [place], [address], 11/30/2022 15:52:30 12/01/19 23 11/30/2022 urina lysis panel , auto Unknown Analyte Normal Not Available [facility] [address], [place], [address], 11/30/2022 15:52:30 12/01/19 23 11/30/2022 urina lysis panel , auto Unknown Analyte Negati ve Not Available [facility] [address], [place], [address], 11/30/2022 15:52:30 12/01/19 23 11/30/2022 urina lysis panel , auto Unknown Analyte Negati ve Not Available [facility] [address], [place], [address], 11/30/2022 15:52:30 12/20/19 23 12/18/2022 fluor oscop y (PROC ) No observ ation record ed. [facility] [address], [place], [address], 12/21/2022 21:32:21 Result Notes None recorded. Problems No Known Problems Medical Equipment None Reported. Allergies Allergen ID Allergen Name Allergen Category Reaction Reaction Severity Criticality Documentation Date Start Date Code Code System Note Provider Name and Address Organization Details Recorded Time 525679 Substance with sulfonami de structure and antibacte rial mechanism of action (substanc e) medicatio n Not available Not available Not available 11/30/2022 84418 8003 SNOMED [facility] 15:51:45 046254 Non-stero idal anti-infl ammatory agent (substanc e) medicatio n Not available Not available Not available 11/30/2022 42880 5008 [facility] 15:51:55 407861 Latex (substanc e) environme nt,medica tion Not available Not available Not available 11/30/2022 68351 8007 [facility] 15:52:01 Medications Name Sig Start [...] Address Organization Details Last Updated DateTime 11/30/2022 60172.82 g 22.9 kg/m2 175.26 cm [facility] 11/30/2022 15:51:26 Social History None recorded. Functional Status None recorded. Mental Status None recorded. Family History Nothing Reported. Medical History No medical history recorded. Gynecological HistoryNo gynecological history recorded. Obstetrics History GPAL:G 0 P 0 0 0 0 Past Encounters Encounter ID Performer Location Encounter Start Date Encounter Closed Date Diagnosis/Indication Diagnosis SNOMED-CT Code Diagnosis ICD10 Code Diagnosis IMO Codes Diagnosis Note [id number] MILDRED VIDES MD [facility] [address] [place] [address] 11/30/2022 15:19:19 11/30/2022 16:50:57 Urolithiasis 41341172 N20.9 arrange for above Health Concerns Section Related Observation LastModified by Organization Detai ls LastModified Time None Recorded Concern Status LastModified by Organization Details LastModified Time None Recorded Advance Directives Directive None Recorded Payers Insurance Date Sequence Insurance Name Policy Number Policy Interiano Covered Member ID Interiano Member ID Guarantor Name 02/23/2025 1 [place] [id number] Maia Denver [id number] Maia Fermín 06/22/2025 1 [facility] Maia Denver [id number] Maia Fermín 02/23/2025 1 [facility] [id number] Maia Denver [id number] Maia Denver Notes Date Note Type Note Provider Name and Address Organization Details Recorded Time 11/30/2022 text/html Here for initial visit for urolithiasis. She passed a stone years ago but now has had right sided back pain and urgency for several weeks. She brought ct scan disc from [facility] for review. No hydro and two tiny 1mm stones in right kidney. The pain is sign. at times. We discussed cysto and right retrograde to assess for missed stone on ct scan. MILDRED VIDES MD [address] [place], [address], [facility] 12/01/2022 23:20:23 OBGyn Episode No OBEpisode recorded.
--- OUTSIDE RECORDS SUMMARY | 2025-08-20 22:05 | XMS_ITS | Clinical Summary ---
Author Organization [facility] Address [address] [place] [address] Care Team Providers Care Automatic Head Sawyer Name Role Phone Nonstaff, Referring Primary Care Provider [phone] Johnnie Shearer MD Unavailable [phone] Allergies Active Allergy Reactions Criticality Noted Date [...] 40 mg by mouth daily. Active Coenzyme R59-Esdxwde E 100-5 mg-unit Capsule Take 400 mg [...] Relation to Subscriber:Self Name:Maia Kovacs Payer ID:[id number] ([facility]) Type:PPO Address: [facility] [address] [place] [id number] Care Teams Automatic Head Sawyer Relationship Specialty Start Date End Date Nonstaff, MD [place] [address] [place] [address] PCP - General 02/16/23 Johnnie Shearer MD [address] [place], [place] [id number] Gastroenterology 02/16/23
--- OUTSIDE RECORDS SUMMARY | 2025-08-20 22:05 | XMS_ITS | Clinical Summary ---
Author Organization [employer] ([place], [place], [place], [place], [place]) Address [address] [place] [address] Care Team Providers Care Dance Coach Name Role Phone Unavailable Primary Care Provider [...] Date Tommie rded Speak language other than Romansh at home Not on file 10/15/2023 Want [...] Advance Directives For more information, please contact: [phone] * Full Code (Latest Code Status on File) Date Activated Date Inactivated Comments 11/11/2022 7:28 AM 11/11/2022 12:16 PM
--- OUTSIDE RECORDS SUMMARY | 2025-08-20 22:05 | XMS_ITS | Clinical Summary ---
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 Active pantoprazole (PROTONIX) 40 MG EC tabletIndications: Hyperemesis gravidarum Take 1 tablet by mouth 2 (Two) Times a Day. 180 tablet 3 5 Active ondansetron ODT (ZOFRAN-ODT) 4 MG disintegrating tabletIndications: Hyperemesis gravidarum DISSOLVE 2 TABLETS UNDER THE TONGUE EVERY 8 HOURS NEEDED FOR NAUSEA AND VOMITING 270 tablet 3 5 Active tiZANidine (ZANAFLEX) 4 MG tablet take 1 TO 1 AND 1/2 TABLETS BY MOUTH TWICE DAILY 5 Active ipratropium-albute rol (DUO-NEB) 0.5-2.5 mg/3 ml nebulizer INHALE THE CONTENTS OF 1 VIAL VIA NEBULIZER EVERY 6 HOURS 5 Active Active Problems Problem Noted Date [...] (09/28/2018): Added automatically from request for surgery [id number] RLQ abdominal pain 09/22/2018 Overview (09/28/2018): Added automatically from request for surgery [id number] B12 deficiency 09/22/2018 Overview (09/28/2018): Added automatically from request for surgery [id number] Chronic anemia 09/18/2018 Narcotic habituation, continuous 09/17/2018 Anxiety disorder 05/12/2018 Vocal cord dysfunction 05/10/2018 Stridor 2018 Respiratory distress 05/07/2018 Moderate persistent asthma with acute exacerbati on 05/07/2018 Chronic nausea 05/07/2018 Epigastric abdominal pain 05/07/2018 Overview (05/12/2018): Added automatically from request for surgery [id number] Generalized abdominal pain 12/09/2017 Resolved Problems Problem Noted Date Diagnosed Date Resolved Date ROM (rupture of membranes), premature 12/10/2024 12/10/2024 Hematemesis 05/16/2022 05/18/2022 uterine contractions in third trimester, antepartum 04/24/2021 05/17/2021 Decreased movement 02/05/2021 11/20/2020 05/17/2021 Overview (11/20/2020): cfDNA Acute dehydration 12/14/2019 10/16/2020 Influenza B 12/14/2019 10/16/2020 Drug-induced constipation 09/22/2018 Overview (09/28/2018): Added automatically from request for surgery [id number] Non-cardiac chest pain 09/17/201810/16 Hypokalemia 09/17/2018 09/19/2018 Hypomagnesemia 09/17/2018 09/19/2018 Leukocytosis 05/07/2018 05/12/2018 Elevated liver enzymes 02/27/201810/16 Intractable nausea and vomiting 02/27/2018 03/01/2018 Intractable cyclical vomiting with nausea 02/27/2018 03/01/2018 Encounters Date Type Department Care Team Description 08/20/2025 9:12 AM EST Anesthesia Event [facility] [place] [address] [place] [address] Darrell Iyer Jr., MD 08/20/2025 8:54 AM EST - 08/20/2025 10:47 AM EST Surgery [facility] OR [address] [address] Chelita Jackson MD TOTAL ROBOTIC HYSTERCETOMY BILATERAL SALPINGO-OOPHRECTOMY 08/20/2025 6:43 AM EST - 08/20/2025 2:00 PM EST Hospital Encounter [facility] OR [address] [place] [address] Chelita Jackson MD Endometriosis Discharge Disposition: Home or Self Care 08/20/2025 Travel 08/13/2025 10:30 AM EST Pre-Admission Testing [facility] PREADMISSION T [address] [place] [address] Endometriosis determined by laparoscopy 08/13/2025 Travel 07/27/2025 Refill [facility] [address] [address] Aminata Nassar MD Hyperemesis gravidarum 07/23/2025 Prep for Surgery [facility] ORDERS ONLY [address] [place] [address] Chelita Jackson MD Endometriosis determined by laparoscopy (Primary Dx) 06/06/2025 Telephone [facility] [address] [address] Aminata Nassar MD 06/01/2025 3:38 PM EDT - 06/01/2025 7:10 PM EDT Emergency [facility] EMERGENCY DEPARTMENT [address] [place] [id number] Isiah Barkley MD Chest pain, unspecified type (Primary Dx); Generalized abdominal pain; Chronic gastritis without bleeding, unspecified gastritis type Discharge Disposition: Home or Self Care 06/01/2025 Travel 05/31/2025 Refill [facility] [address] [facility] [address] [place] [phone] Aminata Nassar MD Hyperemesis gravidarum 05/22/2025 Results Follow-Up [facility] ENDO SUITES [address] [place] [address] Aminata Nassar MD from Last 3 Months Immunizations Immunization Administration [...] drink = 0.6 oz pur e alcohol) [facility] Utilities Answer Date Recorded In the past 12 months has th e CURRENT, gas, oil, or water [employer] threatened to shut off services in your [...] things needed for daily living? No 12/10/2024 [place] Depression Scale Answer Date Recorded [place] Depression Scale Total 2 12/22/2024 The thought [...] GED or equivalent No 08/13/2025 Preferred Language Nigerien 08/13/2025 PHQ-2 Answer Date Recorded Patient Health [...] Mass Index 23.72 08/20/2025 8:07 AM EST Plan of Treatment Upcoming Encounters Date Type Department Care Team (Late st Contact Info) Description 10/31/2025 3:15 PM EST Office Visit [facility] [address] [facility] [address] [place] [phone] Maday, Aminata Roberts MD [address] [facility] [address] [place] [address] Scheduled Procedures Name Priority Associated Diagnoses Date/Ti me TOTAL LAPAROSCOPIC HYSTERECT JIGAR BILATERAL SALPINGOOPHORECTOMY WITH DAVINCI ROBOT 08/20/2025 8:57 AM E Health Maintenance Due Date Last Done Comments Annual Gynecologic Pelvic an d Breast Exam 1992 Pneumococcal Vaccine 0-49 (1 of 2 - PCV) 2011 TDAP/TD VACCINES (1 - Tdap) 2011 ANNUAL PHYSICAL 12/14/2017 PAP SMEAR 10/18/2023 10/18/2020 INFLUENZA VACCINE 04/27/2025 07/15/2023, , 06/07/2018, Additional history exists HEPATITIS C SCREENING Completed 10/17/2020 , 12/08/2018, 12/10/2017 Medical Devices Implanted Type Area Environmental Associate Device Identifier Shelf Expiration Date Model / Serial / Lot Stnt Percuflx No Gw 4.8x26 - [id number] Implanted:Qty: 1 on 12/18/2022 by Raulito Lancaster MD at [facility] Stent Right: Urinary Bladder [employer] 08/19/2025 [id number] / / [id number] Procedures Procedure Name Priority Date/Time Associated Diagnosis Comments ANESTHESIA INTUBATION Routine 08/20/2025 9:35 AM EST POCT PEFORM URINE STAT 08/20/2025 8:06 AM EST CBC AND DIFFERENTIAL Routine 08/13/2025 10:07 AM EST Endometriosis determined by laparoscopy CBC WITH AUTO DIFFERENTIAL Routine 08/13/2025 10:07 AM EST Endometriosis determined by laparoscopy URINALYSIS W/ CULTURE IF INDICATED Routine 08/13/2025 9:38 AM EST Endometriosis determined by laparoscopy CT ABDOMEN PELVIS W WO CONTRAST STAT 06/01/2025 4:32 PM EDT HIGH SENSITIVITIY TROPONIN T 1HR STAT 06/01/2025 4:03 PM EDT POCT PEFORM URINE STAT 06/01/2025 3:09 PM EDT LIGHT BLUE TOP STAT 06/01/2025 3:06 PM EDT BLACK TOP STAT 06/01/2025 3:06 PM EDT GOLD TOP - SST STAT 06/01/2025 3:06 PM EDT LAVENDER TOP STAT 06/01/2025 3:06 PM EDT DK GREEN TOP STAT 06/01/2025 3:06 PM EDT CBC AND DIFFERENTIAL STAT 06/01/2025 3:06 PM EDT URINALYSIS, MICROSCOPIC ONLY STAT 06/01/2025 3:06 PM EDT CBC WITH AUTO DIFFERENTIAL STAT 06/01/2025 3:06 PM EDT TROPONIN STAT 06/01/2025 3:06 PM EDT HCG, QUANTITATIVE, STAT 06/01/2025 3:06 PM EDT URINALYSIS W/ MICROSCOPIC IF INDICATED (NO CULTURE) STAT 06/01/2025 3:06 PM EDT LIPASE STAT 06/01/2025 3:06 PM EDT COMPREHENSIVE METABOLIC PANEL STAT 06/01/2025 3:06 PM EDT RAINBOW DRAW STAT 06/01/2025 3:06 PM EDT ECG 12-LEAD STAT 06/01/2025 2:40 PM EDT PAP IG, HPV-HR (P&[facility] LAB) Routine 10/18/2020 2:06 PM EST Less than 8 weeks gestation of HEPATITIS C ANTIBODY Routine 10/17/2020 2:08 PM EST Less than 8 weeks gestation of from Last 3 Months or Most Recently Relevant to Health Maintenance Results * BH AN ETT AIRWAY (08/20/2025 9:35 AM EST) Narrative Shannan Juárez CRNA - 08/20/2025 9:35 AM EST Shannan Juárez CRNA 08/20/2025 9:35 AM Airway Reason: elective Date/Time: 08/20/2025 9:18 AM Airway not difficult General Information and Staff 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 Pathologist [facility] HCG, Urine, QL Negative Negative [facility] Lot Number [id number] [facility] Internal Positive Control Positive Positive, Passed [facility] Internal Negative Control Negative Negative, Passed [facility] Expiration Date 02-18-27 [facility] Urine 08/20/2025 8:06 AM EST Darrell Iyer Jr., MD POINT OF CARE TEST ORDRebekah OLIVERSO Final Result [facility]
[address] [place] [address], * (ABNORMAL) CBC Auto Differential (08/13/2025 10:07 AM EST) Only the most recent of2 resultswithin the time period is included. Pathologist [facility] WBC 7.74 3.40 - 10.80 10*3/mm3 08/13/2025 10:59 AM EST [facility] RBC 4.25 3.77 - 5.28 10*6/mm3 08/13/2025 10:59 AM EST [facility] Hemoglobin 11.8(L) 12.0 - 15.9 g/dL 08/13/2025 10:59 AM EST [facility] Hematocrit 37.9 34.0 - 46.6 % 08/13/2025 10:59 AM EST [facility] MCV 89.2 79.0 - 97.0 fL 08/13/2025 10:59 AM EST [facility] MCH 27.8 26.6 - 33.0 pg 08/13/2025 10:59 AM EST [facility] MCHC 31.1(L) 31.5 - 35.7 g/dL 08/13/2025 10:59 AM EST [facility] RDW 13.2 12.3 - 15.4 % 08/13/2025 10:59 AM EST [facility] RDW-SD 43.2 37.0 - 54.0 fl 08/13/2025 10:59 AM [facility] MPV 8.9 6.0 - 12.0 fL 08/13/2025 10:59 AM [facility] Platelets 280 140 - 450 10*3/mm3 08/13/2025 10:59 AM [facility] Neutrophil % 71.2 42.7 - 76.0 % 08/13/2025 10:59 AM [facility] Lymphocyte % 17.2(L) 19.6 - 45.3 % 08/13/2025 10:59 AM [facility] Monocyte % 8.5 5.0 - 12.0 % 08/13/2025 10:59 AM [facility] Eosinophil % 1.8 0.3 - 6.2 % 08/13/2025 10:59 AM [facility] Basophil % 0.8 0.0 - 1.5 % 08/13/2025 10:59 AM [facility] Immature Grans % 0.5 0.0 - 0.5 % 08/13/2025 10:59 AM [facility] Neutrophils, Absolute 5.51 1.70 - 7.00 10*3/mm3 08/13/2025 10:59 AM [facility] Lymphocytes, Absolute 1.33 0.70 - 3.10 10*3/mm3 08/13/2025 10:59 AM [facility] Monocytes, Absolute 0.66 0.10 - 0.90 10*3/mm3 08/13/2025 10:59 AM [facility] Eosinophils, Absolute 0.14 0.00 - 0.40 10*3/mm3 08/13/2025 10:59 AM [facility] Basophils, Absolute 0.06 0.00 - 0.20 10*3/mm3 08/13/2025 10:59 AM [facility] Immature Grans, Absolute 0.04 0.00 - 0.05 10*3/mm3 08/13/2025 10:59 AM [facility] nRBC 0.0 0.0 - 0.2 /100 WBC 08/13/2025 10:59 AM [facility] Blood Venipuncture / Unknown 08/13/2025 10:07 AM EST 08/13/2025 10:41 AM EST Chelita Jackson MD LAB BLOOD ORDERABLES Final R esult [facility]
[address] [place] [address], * Urinalysis With Culture If Indicated - Urine, Clean Catch (08/13/2025 9:38 AM EST) Color, UA Yellow Yellow, Straw 08/13/2025 10:27 AM [facility] Appearance, UA Clear Clear 08/13/2025 10:27 AM [facility] pH, UA 5.5 5.0 - 8.0 08/13/2025 10:27 AM [facility] Specific [place], UA 1.014 1.005 - 1.030 08/13/2025 10:27 AM [facility] Glucose, UA Negative Negative 08/13/2025 10:27 AM [facility] Ketones, UA Negative Negative 08/13/2025 10:27 AM [facility] Bilirubin, UA Negative Negative 08/13/2025 10:27 AM [facility] Blood, UA Negative Negative 08/13/2025 10:27 AM [facility] Protein, UA Negative Negative 08/13/2025 10:27 AM [facility] Leuk Esterase, UA Negative Negative 08/13/2025 10:27 AM [facility] Nitrite, UA Negative Negative 08/13/2025 10:27 AM [facility] Urobilinogen, UA 0.2 E.U./dL 0.2 - 1.0 E.U./dL 08/13/2025 10:27 AM [facility] Urine Urine specimen obtained by clean catch procedure / Unknown Collection / Unknown 08/13/2025 9:38 AM EST 08/13/2025 10:24 AM EST Narrative [facility] - 08/13/2025 10:27 AM EST In absence of clinical symptoms, the presence of pyuria, bacteria, and/or nitrites on the urinalysis result does not correlate with infection. Urine microscopic not indicated. us Chelita Jackson MD URINE ORDERABLES Final Resul t [facility]
[address] [place] [address], * CT Abdomen Pelvis With & Without [...] Troponin T 1Hr (06/01/2025 4:03 PM EDT) [facility] Troponin T <6 <14 ng/L 06/01/2025 4:45 PM EDT [facility] Troponin T Numeric Delta 06/01/2025 4:45 PM EDT [facility] Comment:Unable to calculate. Blood Line / Unknown 06/01/2025 4: 03 PM EDT 06/01/2025 4:14 PM EDT Narrative [facility] - 06/01/2025 4:45 PM EDT High [...] Kate l Result [facility]
[address] [place] [address], * Black Top (06/01/2025 3:06 PM EDT) Extra Tube Hold for add-ons. 06/01/2025 3:32 PM EDT [facility] Comment:Auto resulted. Blood Venipuncture / Unknown 06/01/2025 3:06 PM EDT 06/01/2025 3:25 PM EDT Isiah Barkley MD LAB BLOOD ORDER ONLY Kate l Result [facility]
[address] [place] [address], * Gold Top - SST (06/01/2025 3:06 PM EDT) Extra Tube Hold for add-ons. 06/01/2025 3:32 PM EDT [facility] Comment:Auto resulted. Blood Venipuncture / Unknown 06/01/2025 3:06 PM EDT 06/01/2025 3:25 PM EDT Isiah Barkley MD LAB BLOOD ORDER ONLY Kate l Result Performing Organization Address City/[facility]/ZIP Co de Phone Number [facility]
[address] [place] [address], [place] [phone] * Green Top (Gel) (06/01/2025 3:06 PM EDT) Extra Tube Hold for add-ons. 06/01/2025 3:32 PM EDT [facility] Comment:Auto resulted. Blood Venipuncture / Unknown 06/01/2025 3:06 PM EDT 06/01/2025 3:25 PM EDT Isiah Barkley MD LAB BLOOD ORDER ONLY Kate l Result Performing Organization Address City/[facility]/ZIP Co de Phone Number [facility]
[address] [place] [address], [place] [phone] * (ABNORMAL) Urinalysis, Microscopic Only - Urine, [...] Final Re sult [facility]
[address] [place] [address], * (ABNORMAL) Urinalysis With Microscopic If Indicated (No Culture) - Urine, Clean Catch (06/01/2025 3:06 PM EDT) Color, UA Yellow Yellow, Straw 06/01/2025 3:52 PM EDT [facility] Appearance, UA Clear Clear 06/01/2025 3:52 PM EDT [facility] pH, UA 6.0 5.0 - 8.0 06/01/2025 3:52 PM EDT [facility] Specific [place], UA 1.023 1.005 - 1.030 06/01/2025 3:52 [...] ORDERABLES Final Re sult Performing Organization Address City/[facility]/ZIP Co de Phone Number [facility]
[address] [place] [address], * Lavender Top (06/01/2025 3:06 PM EDT) Extra Tube hold for add-on 06/01/2025 3:32 PM EDT [facility] Comment:Auto resulted Blood Venipuncture / Unknown 06/01/2025 3:06 PM EDT 06/01/2025 3:25 PM EDT Isiah Barkley MD LAB BLOOD ORDER ONLY Kate l Result [facility]
[address] [place] [address], * Light Blue Top (06/01/2025 3:06 PM EDT) Extra Tube Hold for add-ons. 06/01/2025 3:32 PM EDT [facility] Comment:Auto resulted Blood Venipuncture / Unknown 06/01/2025 3:06 PM EDT 06/01/2025 3:25 PM EDT Isiah Barkley MD LAB BLOOD ORDER ONLY Kate l Result Performing Organization Address [facility] Co de Phone Number [facility]
[address] [place] [address], * High Sensitivity Troponin T (06/01/2025 3:06 PM EDT) [facility] Troponin T <6 <14 ng/L 06/01/2025 3:54 PM EDT [facility] Blood Venipuncture / Unknown 06/01/2025 3:06 PM EDT 06/01/2025 3:25 PM EDT Narrative [facility] - 06/01/2025 3:54 PM EDT High [...] Address City/[facility]/ZIP Co de Phone Number [facility]
[address] [place] [address], [place] [phone] * hCG, Quantitative, (06/01/2025 3:06 PM EDT) HCG Quantitative <0.10 mIU/mL 06/01/20 3:58 PM EDT [facility] Blood Venipuncture / Unknown 06/01/2025 3:06 PM EDT 06/01/2025 3:25 PM EDT Narrative [facility] - 06/01/2025 3:58 PM EDT HCG [...] Kate l Result [facility]
[address] [place] [address], * Lipase (06/01/2025 3:06 PM EDT) Lipase 17 13 - 60 U/L 06/01/2025 3:50 PM EDT [facility] Blood Venipuncture / Unknown 06/01/2025 3:06 PM EDT 06/01/2025 3:25 PM EDT Isiah Barkley MD LAB BLOOD ORDERABLES Kate l Result [facility]
[address] [place] [address], * Comprehensive Metabolic Panel (06/01/2025 3:06 PM EDT) Glucose 88 65 - 99 mg/dL 06/01/2025 3:50 PM EDT [facility] BUN 9.5 6.0 - 20.0 mg/dL 06/01/2025 3:50 PM EDT [facility] Creatinine 0.71 0.57 - 1.00 mg/dL 06/01/2025 3:50 PM EDT [facility] Sodium 140 136 - 145 mmol/L 06/01/2025 3:50 PM EDT [facility] Potassium 3.5 3.5 - 5.2 mmol/L 06/01/2025 3:50 PM EDT [facility] Chloride 103 98 - 107 mmol/L 06/01/2025 3:50 PM EDT [facility] CO2 27.0 22.0 - 29.0 mmol/L 06/01/2025 3:50 PM EDT [facility] Calcium 9.4 8.6 - 10.5 mg/dL 06/01/2025 3:50 PM EDT [facility] Total Protein 7.7 6.0 - 8.5 g/dL 06/01/2025 3:50 PM EDT [facility] Albumin 4.9 3.5 - 5.2 g/dL 06/01/2025 3:50 PM EDT [facility] ALT (SGPT) 13 1 - 33 U/L 06/01/2025 3:50 PM EDT [facility] AST (SGOT) 17 1 - 32 U/L 06/01/2025 3:50 PM EDT [facility] Alkaline Phosphatase 117 39 - 117 U/L 06/01/2025 3:50 PM EDT [facility] Total Bilirubin 0.2 0.0 - 1.2 mg/dL 06/01/2025 3:50 PM EDT [facility] Globulin 2.8 gm/dL 06/01/2025 3:50 PM EDT [facility] Comment:Calculated Result A/G Ratio 1.8 g/dL 06/01/2025 3:50 PM EDT [facility] BUN/Creatinine Ratio 13.4 7.0 - 25.0 06/01/2025 3:50 PM EDT [facility] Anion Gap 10.0 5.0 - 15.0 mmol/L 06/01/2025 3:50 PM EDT [facility] eGFR 115.3 >60.0 mL/min/1.7 3 06/01/2025 3:50 PM EDT [facility] Blood Venipuncture / Unknown 06/01/2025 3:06 PM EDT 06/01/2025 3:25 PM EDT [facility] - 06/01/2025 3:50 PM EDT [...] not include race as a factor us Isiah Barkley MD LAB BLOOD ORDERABLES Kate lucie Result [facility]
[address] [place] [address], * ECG 12 Lead Chest Pain (06/01/2025 [...] Barkley MD ECG ORDERABLES Final Res ult Performing Organization Address [facility]/ZIP Co de Phone Number ECG * Pap IG, HPV-hr (10/18/2020 2:06 PM EST) ThinPrep Vial Tash Jackson MD PATHOLOGY/CYTOLOGY ORDERABLES Fi nal Result Performing Organization Address City/[facility]/ZIP Co de Phone Number [facility]
[address] [place] [address], * Hepatitis C Antibody (10/17/2020 2:08 PM EST) Hepatitis C Ab Non-Reacti ve Non-Reacti ve 10/17/2020 7:29 PM EST [facility] Blood Venipuncture / Unknown 10/17/2020 2:08 PM EST 10/17/2020 2:08 PM EST Narrative [facility] - 10/17/2020 7:29 PM EST Results may be falsely decreased if patient taking Biotin. us Tash Jackson MD LAB BLOOD ORDERABLES Final Resul t [facility]
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 The last day before reporting a new confirmed COVID-19 would be 12/08/20. 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
[2025-08-20 22:26] LABS: Hematocrit 33.8 % (37.0-47.0); Hemoglobin 11.3 g/dL (12.2-16.2); Immature Granulocytes % 0.4 %; Mean Corpuscular HGB Conc 33.4 g/dL (31.8-35.4); Mean Corpuscular Hemoglobin 29.1 pg (27.0-31.2); Mean Corpuscular Volume 87.1 fl (81-99); Nucleated Red Blood Cells % 0 %; Platelet Count 317 K/mm3 (142-424); Red Blood Count 3.88 M/mm3 (4.20-5.40); Red Cell Distribution Width-SD 41.6 fL; White Blood Count 9.5 K/mm3 (4.8-10.8)
[2025-08-20] MEDS: ONDANSETRON 4MG/2ML VIAL 4 MG IV (22:26)
[2025-08-20] MEDS: HYDROMORPHONE 2MG/ML SYRINGE 1 MG IV (22:27)
[2025-08-20] MEDS: RINGERS SOLUTION,LACTATED 500 ML 999 ML IV (22:27)
[2025-08-20 22:33] LABS: Microscopic, Urine URINE MICROSCOPIC (MICROSCOPIC)
[2025-08-20 22:34] LABS: Bilirubin,Urine Negative (Negative); Color,Urine ORANGE (Yellow); Glucose,Urine (UA) TRACE (Negative); Ketones,Urine Negative (Negative); Leukocyte Esterase,Urine Negative (Negative); PH,Urine 6.0 (5.0-8.5); Protein,Urine Negative (Negative); Specific Gravity, Urine <= 1.005 (1.005-1.030); Urobilinogen,Urine 1.0 EU/dl (0.2)
[2025-08-20 22:42] LABS: Albumin Level 4.1 g/dl (3.5-5.0); Chloride 106 mmol/L (98-107); Potassium 3.6 mmoL/L (3.5-5.1); Sodium 141 mmol/L (136-145)
[2025-08-20 22:44] LABS: Alanine Aminotransferase 19 U/L (12-78); Aspartate Amino Transferase 30 U/L (14-36); Blood Urea Nitrogen 5 mg/dl (7-17); Creatinine Clearance Estimated 153 mL/min (50-200); Creatinine,Serum 0.60 mg/dl (0.52-1.04); Estimated Glomerular Filt Rate 115 ml/min (>60); GFR (African American) 139 ML/MIN (>60)
[2025-08-20 22:45] LABS: Albumin/Globulin Ratio 1.4 (1.1-1.8); Alkaline Phosphatase 76 U/L (38-126); Anion Gap 14.6 mEq/L (5-15); Bilirubin,Total 0.2 mg/dl (0.2-1.3); Calcium 8.7 mg/dl (8.4-10.2); Carbon Dioxide 24 mmol/L (22.0-30.0); Globulin 2.9 g/dL (1.3-3.2); Glucose 134 mg/dl (74-100); Lipase 31 U/L (23-300); Total Protein,Serum 7.0 g/dl (6.3-8.2)
[2025-08-20 22:46] LABS: INR 0.98 (0.9-1.1); Prothrombin Time 10.9 seconds (10.1-12.5)
[2025-08-20 22:48] LABS: Bacteria,Urine Trace /lpf; Mucus,Urine 1+ /lpf; RBC,Urine Occasional #/hpf (0-3); WBC,Urine Occasional #/hpf (0-3)
--- NOTE | 2025-08-20 22:56 | ECG_ITS ---
APPROVED REPORT Exam: Resting ECG HR:48 bpm ECG Measurements Heart Rate 48 AXES OK 150 P 51 QRSd 85 QRS 70 QT 448 T 37 QTc 413 Conclusion SINUS BRADYCARDIA BORDERLINE ECG Electronically signed by : MALCOLM PADRON, 08/23/2025 13:54:05
[2025-08-20 23:01] LABS: Troponin I < 0.01 ng/ml (0.00-0.034)
[2025-08-20] MEDS: HYDROMORPHONE 2MG/ML SYRINGE 0.5 MG IV (23:05)
--- NOTE | 2025-08-20 23:11 | CT_ITS ---
PROCEDURE INFORMATION: Exam: CT Abdomen And Pelvis With Contrast Exam date and time: 08/20/2025 11:37 PM Age: 35 years old Clinical indication: Abdominal pain; Additional info: Worsening pain, edel bso today TECHNIQUE: Imaging protocol: Computed tomography of the abdomen and pelvis with contrast. Radiation optimization: All CT scans at this facility use at least one of these dose optimization techniques: automated exposure control; mA and/or kV adjustment per patient size (includes targeted exams where dose is matched to clinical indication); or iterative reconstruction. Contrast material: ISOVUE; Contrast volume: 75 ml; Contrast route: IV; COMPARISON: CT ABDOMEN PELVIS W CON 07/11/2025 7:13 PM FINDINGS: Lungs: Minimal atelectasis/scarring. Liver: Minimal intrahepatic ductal dilatation, grossly stable. Gallbladder and biliary ducts: Cholecystectomy. No extrahepatic ductal dilatation. Pancreas: Unremarkable. No ductal dilation. Spleen: No splenomegaly. Adrenal glands: No mass. Kidneys and ureters: Unremarkable. No significant hydronephrosis. Stomach and bowel: No definite mural thickening. No obstruction. Appendix: Normal caliber. No inflammation. Intraperitoneal space: Scattered foci of extraluminal air within abdomen. Small free fluid within pelvis. Vasculature: Minimal atherosclerotic disease of aorta. No aneurysm. Lymph nodes: No pathologically enlarged lymph nodes. Urinary bladder: Air within lumen. Reproductive: Status postImpression. Hysterectomy. Bones/joints: Mild curvature of spine. No acute fracture. Soft tissues: Tiny umbilical hernia containing fat and air. IMPRESSION: 1. S/P hysterectomy. 2. Pneumoperitoneum, likely related to recent surgery. Clinical correlation is needed. 3. Air within bladder lumen. DDX: Recent instrumentation or cystitis.
[2025-08-20 23:15] LABS: Total Cells Counted 100
[2025-08-20 23:16] LABS: RBC Morphology Normal
[2025-08-20 23:33] LABS: Hepatitis C Ab Qual. W/ RFX NEGATIVE (Negative)
[2025-08-20] MEDS: IOPAMIDOL-370 (76%);100ML BOTTLE 75 ML IV (23:45)
[2025-08-20] MEDS: SODIUM CHLORIDE 0.9% 10ML SYR (RAD ONLY) 10 ML IV (23:45)
--- NOTE | 2025-08-21 00:18 | PC.NURSE ---
performed post void bladder scan. 0mL noted in bladder
[2025-08-21 00:36] VITALS: BP 113/67; PULSE 50; RESP 18; TEMP 37; O2SAT 100
[2025-08-21] MEDS: OXYCODONE 5MG IMMEDIATE RELEASE TABLET 10 MG PO (00:45)
== END 2025-08-21 00:54 | disposition home or self-care (01) ==
PROVIDERS: Emergency Provider Student in an Organized Health Care Education/Training Program; PCP Nurse Practitioner Family
DX: R10.84 Generalized abdominal pain (principal); G89.18 Other acute postprocedural pain; R00.1 Bradycardia, unspecified; Z90.710 Acquired absence of both cervix and uterus
CPT/HCPCS: 74177; 80053; 81001; 83605; 83690; 84484; 85007; 85025; 85027; 85610; 86803; 87086; 87389; 93005; 96374; 96375; 96376; 99285; J1171; J2405; J7120; Q9967

== ENCOUNTER 2025-09-23 15:27 | Emergency (ER) | payer OTHER, SELFPAY ==
--- OUTSIDE RECORDS SUMMARY | 2020-07-18 04:23 | XMS_ITS | Continuity of Care Document ---
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 [address], [place], [place], [id number] , [place]. 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 [address], [place], [place], [id number] , [place]. tel:[phone] Family History Family Member Type Diagnosis Age At Onset No Information Payers Payer name Insurance type Covered libertarian ID Authoriza tion(s) No Information Social History Type Description Quantity Date Captured Comments Sex Female Smoking Status No Information Chief Complaint And Reason For Visit No Information Reason For Referral Reason For Referral No Information Plan Of Treatment Date Type Action Status Goal Tdap. Due on due Goal PAP. Due on due Goal HIV Screen. Due on 20 due Goal Influenza vaccine. Due on Oc due History Of Present Illness Encounter Date Complaint History Of Prese nt Illness No Information Functional Status Date Functional Assessmen t No Information Instructions Date Instruction Additional Infor mation No Information Assessments Type Assessment Date No Information Patient Care Teams Name Effective Dates (start - stop) Status Members No Information
--- OUTSIDE RECORDS SUMMARY | 2025-08-13 03:45 | XMS_ITS ---
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 Name Role Phone Chelita Jackson Unavailable [phone] Allergies Allergen (clinical drug ingredient) Drug/Non Drug [...] Unspecified Allergy 2020 Active REASON FOR VISIT Pelvic pain Medications Medication SIG (Take, Route, Frequency, Duration) Notes Start Date End Date Status Pantoprazole Sodium Active Ondansetron 12/13/2018 Active Vitamin D Active Propranolol HCl 11/10/2018 Act jorden Pepcid Active Neurontin Active Iron Active Lexapro Active Estradiol 0.1 MG/24HR Patch Twice Weekly 1 patch to skin Transdermal Two times a Week; Duration: 84 days 08/13/2025 Active Polyethylene Glycol 3350 17 GM/SCOOP Powder 1 scoop po daily; Duration: 14 days Use daily for 14 days to prevent post operative constipation. May hold for loose stool. May double dose for severe constipation. 08/13/2025 Active Gabapentin 12/12/2018 Active oxyCODONE HCl 5 MG Tablet 1 tablet po every 6 hours; Duration: 3 days Take as needed for severe post operative pain. 08/13/2025 Active Ondansetron HCl 4 MG Tablet 1 tablet po every 8 hours; Duration: 3 days As needed for post operative nausea 08/13/2025 Active Acetaminophen Extra Strength 500 MG Tablet 2 tablet po every 6 hours; Duration: 14 days Take on schedule for 14 days to prevent post operative pain, then as needed. 08/13/2025 Active Social History Tobacco Use: Social History [...] Domestic violence: No Do you have any episcopal, m oral, or cultural beliefs or customs that your provider should know about? No Would you object to blood products in the event of an emergency? No Problems Problem Type SNOMED Code ICD Code Onset Dates Problem Status W/U Status Risk Notes Problem History of gastrointestinal bleed (976910798) History of GI bleed (Z87.19) Active confirmed Vital Signs Blood pressure systolic 112 mm Hg 08/13/20 25 Blood pressure diastolic 78 mm Hg 025 Height 69 in 08/13/2025 Weight 156.6 lbs 08/13/2025 BMI 23.12 kg/m2 08/13/2025 Encounters Encounter Location Date Provider Diagnosis [facility] [address] [facility] [address] [place] [address] 08/13/2025 Chelita Renetta Endometriosis N80.9 ; Endometrioma N80.129 ; History of GI bleed Z87.19 and Pre-op evaluation Z01.818 Assessments Encounter Date Diagnosis (ICD Code) Assessment Notes Treatment Notes Treatment Clinical Notes Section Notes 08/13/2025 Endometriosis (ICD-10 - N80.9) 08/13/2025 Endometrioma (ICD-10 - N80.129) 08/13/2025 History of GI bleed (ICD-10 - Z87.19) NSAID related. 08/13/2025 Pre-op evaluation (ICD-10 - Z01.818) Patient's diagnosis and treatment options were again reviewed, including lesser invasive options. The risks, benefits, and likely outcomes of each were reviewed. The patient confirms her desire to proceed with TRH with bilateral salpingo oophorectomy. The procedure was again defined as robotic removal of uterus, cervix, tubes and ovaries. Recognized risks of this procedure are those of any laparoscopic surgical procedure including anesthesia, bleeding, infection, damage to bowel or bladder and neurologic damage. Specific risks of this procedure were also reviewed including ureteral damage, DVT and its sequelae, vaginal cuff hematoma or infection, wound dehiscence as well as the general management of these complications. She was informed of the possible need to convert the laparoscopic procedure to an open procedure after the induction of anesthesia. She was also advised that bleeding, bowel injury, bladder injury or ureteral injury may not be obvious at the time of surgery and that she would need to be vigilant to call my office SY with any increasing abdominopelvic pain or any fever in the two weeks following surgery. All the patient's questions were answered, and she was advised to call with any other questions that she may have prior to the operation. Postoperative restrictions and recommended activity level is discussed. Postoperative medications will be sent to her pharmacy on file. She is provided with written instructions regarding post operative medications, wound care and activity. 08/13/2025 Other Completed [place] [employer] Treating Practitioner Verification form. Total time spent caring for the patient today 30 minutes. This includes time spent before the visit reviewing the chart, time spent during the visit, time spent after the visit on documentation, and does not include procedure or preventative care time. Plan Of Treatment Medication Medication Name Sig Start Date Stop Date Notes Estradiol 0.1 MG/24HR Patch Twice Weekly 1 patch to skin Transdermal Two times a Week; Duration: 84 days 08/13/2025 Polyethylene Glycol 3350 17 GM/SCOOP Powder 1 scoop po daily; Duration: 14 days 08/13/2025 oxyCODONE HCl 5 MG Tablet 1 tablet po ev celia 6 hours; Duration: 3 days 08/13/2025 Ondansetron HCl 4 MG Tablet 1 tablet po every 8 hours; Duration: 3 days 08/13/2025 Acetaminophen Extra Strength 500 MG Tablet 2 tablet po every 6 hours; Duration: 14 days 08/13/2025 Treatment Notes Assessment Notes Pre-op evaluation Patient's diagnosis and treatment options were again reviewed, including lesser invasive options. The risks, benefits, and likely outcomes of each were reviewed. The patient confirms her desire to proceed with TRH with bilateral salpingo oophorectomy. The procedure was again defined as robotic removal of uterus, cervix, tubes and ovaries. Recognized risks of this procedure are those of any laparoscopic surgical procedure including anesthesia, bleeding, infection, damage to bowel or bladder and neurologic damage. Specific risks of this procedure were also reviewed including ureteral damage, DVT and its sequelae, vaginal cuff hematoma or infection, wound dehiscence as well as the general management of these complications. She was informed of the possible need to convert the laparoscopic procedure to an open procedure after the induction of anesthesia. She was also advised that bleeding, bowel injury, bladder injury or ureteral injury may not be obvious at the time of surgery and that she would need to be vigilant to call my office SY with any increasing abdominopelvic pain or any fever in the two weeks following surgery. All the patient's questions were answered, and she was advised to call with any other questions that she may have prior to the operation. Postoperative restrictions and recommended activity level is discussed. Postoperative medications will be sent to her pharmacy on file. She is provided with written instructions regarding post operative medications, wound care and activity. 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 Since her last visit she has been scheduled for TRH with BSO. BMI 23 PSH (abdominal) x 2, CCY, liver biopsy, Dx lap, BTL History of multiple GI bleeds associated with NSAIDS, including a single dose of toradol. Examination Category Sub-Category Detail Notes Category Not es General Examination GENERAL: Well develop ed/well nourished, no acute distress, oriented to time, place, and person CARDIOPULMONARY: Respiratory effort e luciano and unlabored PSYCHIATRIC: Mood pleasant Progress Notes * FERMÍN, Maia ZhaoDOB:[birth year] (35 yo F)Acc No.[id number]:08/13/2025 Progress Note Patient: Maia García Provider: Pavel Jackson MD :1990 A ge:35 Y S ex:Female Date:08/13/2025 Address:[address] [place] [address], [place] [id number] Subjective: * Chief Complaints: * P elvic pain * HPI: G YN: Maia Bermudezchie, a 35-year-old female, presented for a chronic [...] more definitive solution to her ongoing symptoms. Since her last visit she has been scheduled for TRH with BSO. BMI 23 PSH (abdominal) x 2, CCY, liver biopsy, Dx lap, BTL History of multiple GI bleeds associated with NSAIDS, including a single dose of toradol. G eneral Health Maintenance: Patient presents for hysterectomy counseling. 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 Y es A ge of Onset: 1 2 L MP: 1 10/12/2024 L ength Between Cycles: 2 1-32 Days L ength of Flow: 2 -7 Days F low Volume: H eavy S exual Activity/Contraception:Have you ever been sexually active? Yes, Are you currently sexually active? Yes, Age of first sexual encounter: 19, Please indicate the gender of your sexual partner(s): Male, What is your method for preventing ? None, Have you ever had any of the following STIs? None. G YN Medical Hx: E ndometriosis. L ast Preventive Screening Labs: 1 . L ast Mammogram Date (Historical) N [...] 2008 Dx Lap - fulguration of endometriosis 2020 [...] omestic violence: No. Do you have any episcopal, moral, or cultural beliefs or customs that your provider should know about?: No. Would you object to blood products in the event of an emergency?: No. D rug/Alcohol: A ANGELA-C (Standard) D id you have a drink containing alcohol in the past year? N o S ocial History Verified. * Medications: T akingGabapentin Iron Lexapro Neurontin Ondansetron Pantoprazole Sodium Pepcid Propranolol HCl Vitamin D Taking Gabapentin Taking Iron Taking Lexapro Taking Neurontin Taking Ondansetron Taking Pantoprazole Sodium Taking Pepcid Taking Propranolol HCl Taking Vitamin D DiscontinuedAnaprox DS 1 tablet oral Q12H hydrOXYzine HCl Ketorolac Tromethamine Methergine(Methylergonovine Maleate) 0.2 MG Tablet 1 tablet Orally Three times a day Medication List reviewed and reconciled with the patientDiscontinued Anaprox DS 1 tablet oral Q12H Discontinued hydrOXYzine HCl Discontinued Ketorolac Tromethamine Discontinued Methergine(Methylergonovine Maleate) 0.2 MG Tablet 1 tablet Orally Three times a day Medication List reviewed and reconciled with the patient * Allergies: M edications: Adhesive Tape: Unspecified - AllergyCELEBREX (CELECOXIB CAPS): Unspecified - Allergy - Onset Date [id number] EXAM GLOVES (DISPOSABLE GLOVES): Unspecified - Allergy - Onset Date 9581-61-67Awdj: Coconut: Unspecified - AllergyNSAIDS: Unspecified - Allergy - Onset Date 0379-23-89RZROHL: Unspecified - Allergy - Onset Date 7812-98-05Onyj: Pineapple: Unspecified - AllergySULFAMETHOXAZOLE-TRIMETHOPRIM: Unspecified - Allergy - Onset Date 3506-58-11fpoMvzxgciss Verified. Objective: * Vitals: B P:112/78mm Hg, Ht: 69 in, Wt:156.6lbs, BMI:23.12Index. * P ast Orders: L ab:CBC WITH AUTO DIFFERENTIAL (Order Date - 12/11/2024) (Collection Date & Time - 12/11/2024 10:07 AM) Value Reference Range WBC, CORRECTED 11.52 H 3.40-10.80 - 10*3/mm3 ERYTHROCYTES IN BLOOD BY AUTOMATED COUNT 3.88 3.77-5.28 - 10*6/mm3 HEMOGLOBIN (MG/DL) IN BLOOD 11.4 L 12.0-15.9 - g/dL HEMATOCRIT (%) BY AUTOMATED COUNT 34.9 34.0-46.6 - % RBC MCV (FL) BY AUTOMATED COUNT 89.9 79.0-97.0 - fL RBC MCH (PG) BY AUTOMATED COUNT 29.4 26.6-33.0 - pg RBC MCHC (G/DL) BY AUTOMATED COUNT 32.7 31.5-35.7 - g/dL RBC RDW (%) BY AUTOMATED COUNT 12.8 12.3-15.4 - % RDW-SD 42.2 37.0-54.0 - fl MEAN PLATELET VOLUME (FL) BY AUTOMATED COUNT 9.7 6.0-12.0 - fL PLATELETS BY AUTOMATED COUNT 190 140-450 - 10*3/mm3 NEUTROPHILS RELATIVE PERCENT BY AUTOMATED COUNT 83.5 H 42.7-76.0 - % LYMPHOCYTES RELATIVE PERCENT BY AUTOMATED COUNT 7.1 L 19.6-45.3 - % MONOCYTES RELATIVE PERCENT BY AUTOMATED COUNT 6.7 5.0-12.0 - % EOSINOPHILS RELATIVE PERCENT BY AUTOMATED COUNT 1.4 0.3-6.2 - % BASOPHILS RELATIVE PERCENT BY AUTOMATED COUNT 0.4 0.0-1.5 - % IMMATURE GRANULOCYTES RELATIVE PERCENT 0.9 H 0.0-0.5 - % NEUTROPHILS ABSOLUTE COUNT BY AUTOMATED COUNT 9.62 H 1.70-7.00 - 10*3/mm3 LYMPHOCYTES ABSOLUTE COUNT BY AUTOMATED COUNT 0.82 0.70-3.10 - 10*3/mm3 MONOCYTES ABSOLUTE COUNT BY AUTOMATED COUNT 0.77 0.10-0.90 - 10*3/mm3 EOSINOPHILS ABSOLUTE COUNT BY AUTOMATED COUNT 0.16 0.00-0.40 - 10*3/mm3 BASOPHILS ABSOLUTE COUNT BY AUTOMATED COUNT 0.05 0.00-0.20 - 10*3/mm3 IMMATURE GRANULOCYTES ABSOLUTE COUNT 0.10 H 0.00-0.05 - 10*3/mm3 NRBC (PER 100 WBCS) 0.0 0.0-0.2 - /100 WBC L ab:TISSUE PATHOLOGY EXAM (Order Date - 12/10/2024) (Collection Date & Time - 12/10/2024 03:35 PM) Value Reference Range LAB AP CASE REPORT Specimen: Fallopian Tubes, Bilateral - LAB AP CLINICAL INFORMATION Encounter for sterilization - LAB AP FINAL DIAGNOSIS at 1020 EDT - LAB AP MICROSCOPIC DESCRIPTION The slides are reviewed and demonstrate histopathologic features supporting the above rendered diagnosis. - I maging:*US Pelvis Complete Transabdominal/Vaginal (Non-OB) (Order Date - 06/20/2025) (Performed Date - 06/20/2025) * Examination: G eneral Examination: GENERAL: W ell developed/well nourished, no acute distress, oriented to time, place, and person. CARDIOPULMONARY: R espiratory effort even and unlabored.? PSYCHIATRIC: M ochandrika pleasant. Assessment: * Assessment: 1. E ndometriosis - N80.9 (Primary) 2 . E ndometrioma - N80.129 ?3. H istory of GI bleed - Z87.19 4 . P re-op evaluation - Z01.818 Plan: * Treatment: 2. P re-op evaluation Start Acetaminophen Extra Strength Tablet, 500 MG, 2 tablet, po, every 6 hours Take on schedule for 14 days to prevent post operative pain, then as needed., 14 days, 200, Refills 0; S tart Ondansetron HCl Tablet, 4 MG, 1 tablet, po, every 8 hours As needed for post operative nausea, 3 days, 9 Tablet; S tart oxyCODONE HCl Tablet, 5 MG, 1 tablet, po, every 6 hours Take as needed for severe post operative pain., 3 days, 12 Tablet, Refills 0; S tart Polyethylene Glycol 3350 Powder, 17 GM/SCOOP, 1 scoop, po, daily Use daily for 14 days to prevent post operative constipation. May hold for loose stool. May double dose for severe constipation., 14 days, 1; S tart Estradiol Patch Twice Weekly, 0.1 MG/24HR, 1 patch to skin, Transdermal, Two times a Week, 84 days, 24, Refills 4. Notes: Patient's diagnosis and treatment options were again reviewed, including lesser invasive options. The risks, benefits, and likely outcomes of each were reviewed. The patient confirms her desire to proceed with TRH with bilateral salpingo oophorectomy. The procedure was again defined as robotic removal of uterus, cervix, tubes and ovaries. Recognized risks of this procedure are those of any laparoscopic surgical procedure including anesthesia, bleeding, infection, damage to bowel or bladder and neurologic damage. Specific risks of this procedure were also reviewed including ureteral damage, DVT and its sequelae, vaginal cuff hematoma or infection, wound dehiscence as well as the general management of these complications. She was informed of the possible need to convert the laparoscopic procedure to an open procedure after the induction of anesthesia. She was also advised that bleeding, bowel injury, bladder injury or ureteral injury may not be obvious at the time of surgery and that she would need to be vigilant to call my office SY with any increasing abdominopelvic pain or any fever in the two weeks following surgery. All the patient's questions were answered, and she was advised to call with any other questions that she may have prior to the operation. Postoperative restrictions and recommended activity level is discussed. Postoperative medications will be sent to her pharmacy on file. She is provided with written instructions regarding post operative medications, wound care and activity. 3. O yary Clinical Notes: Completed [place] [employer] Treating Practitioner Verification form. Total time spent caring for the patient today 30 minutes. This includes time spent before the visit reviewing the chart, time spent during the visit, time spent after the visit on documentation, and does not include procedure or preventative care time. Billing Information: * Visit Code: [id number] Office/Outpatient visit, est patient. * Sign off status: Completed Visit Status: C HK (Check Out) true * Provider: Pavel Jackson MD Date: 10/13/2024 Generated for Kay sarkar/Haydee/Ramositting on: 11/24/2024 03:58 PM EST
--- OUTSIDE RECORDS SUMMARY | 2025-08-13 10:30 | XMS_ITS | Encounter Summary ---
[facility] Address [address] [place] [address] Care Team Providers Care Supervisor Decorating Name Role Phone SousaSoraidarebekah KING Primary Care Provider + [phone] Encounter Details Date Type Department Care Team (Latest Contact Info) Description 08/13/2025 10:30 AM EST Pre-Admission Testing [facility] PREADMISSION T [address] [place] [phone] Endometriosis determined by laparoscopy Social History Tobacco Use Types Packs/Day Years Used Date Smoking Tobacco: Never Passive Smoke Exposure: Never Smokeless Tobacco: Never Alcohol Use Standard Drinks/Week Comments No 0 (1 standard drink = 0.6 oz pur e alcohol) [facility] Utilities Answer Date Recorded In the past 12 months has [employer] electric, gas, oil, or water company threatened [...] Date Recorded Retired Total Score 0 05/07/2021 [facility] [place] of Occupat ional Health - Occupational Stress [...] things needed for daily living? No 12/10/2024 [place] Depression Scale Answer Date Recorded [place] Depression Scale Total 2 12/22/2024 The thought [...] GED or equivalent No 08/13/2025 Preferred Language Hungarian 08/13/2025 PHQ-2 Answer Date Recorded Patient Health [...] Description 10/31/2025 3:15 PM EST Office Visit [facility] [address] [address] Aminata Nassar MD [address] [address] documented as of this encounter [...] - 10.80 10*3/mm3 08/13/2025 10:59 AM EST [facility] RBC 4.25 3.77 - 5.28 10*6/mm3 08/13/2025 10:59 AM EST [facility] Hemoglobin 11.8(L) 12.0 - 15.9 g/dL 08/13/2025 10:59 AM EST [facility] Hematocrit 37.9 34.0 - 46.6 % 08/13/2025 10:59 AM EST [facility] MCV 89.2 79.0 - 97.0 fL 08/13/2025 10:59 AM [facility] MCH 27.8 26.6 - 33.0 pg 08/13/2025 10:59 AM [facility] MCHC 31.1(L) 31.5 - 35.7 g/dL 08/13/2025 10:59 AM [facility] RDW 13.2 12.3 - 15.4 % 08/13/2025 10:59 AM [facility] RDW-SD 43.2 37.0 - 54.0 fl 08/13/2025 10:59 AM [facility] MPV 8.9 6.0 - 12.0 fL 08/13/2025 10:59 AM [facility] Platelets 280 140 - 450 10*3/mm3 08/13/2025 10:59 AM [facility] Neutrophil % 71.2 42.7 - 76.0 % 08/13/2025 10:59 AM [facility] Lymphocyte % 17.2(L) 19.6 - 45.3 % 08/13/2025 10:59 AM [facility] Monocyte % 8.5 5.0 - 12.0 % 08/13/2025 10:59 AM [facility] Eosinophil % 1.8 0.3 - 6.2 % 08/13/2025 10:59 AM [facility] Basophil % 0.8 0.0 - 1.5 % 08/13/2025 10:59 AM [facility] Immature Grans % 0.5 0.0 - 0.5 % 08/13/2025 10:59 AM [facility] Neutrophils, Absolute 5.51 1.70 - 7.00 10*3/mm3 08/13/2025 10:59 AM [facility] Lymphocytes, Absolute 1.33 0.70 - 3.10 10*3/mm3 08/13/2025 10:59 AM [facility] Monocytes, Absolute 0.66 0.10 - 0.90 10*3/mm3 08/13/2025 10:59 AM [facility] Eosinophils, Absolute 0.14 0.00 - 0.40 10*3/mm3 08/13/2025 10:59 AM [facility] Basophils, Absolute 0.06 0.00 - 0.20 10*3/mm3 08/13/2025 10:59 AM [facility] Immature Grans, Absolute 0.04 0.00 - 0.05 10*3/mm3 08/13/2025 10:59 AM [facility] nRBC 0.0 0.0 - 0.2 /100 WBC 08/13/2025 10:59 AM [facility] Blood Venipuncture / Unknown 08/13/2025 10:07 AM EST 08/13/2025 10:41 AM EST us Chelita Jackson MD LAB BLOOD ORDERABLES Final R esult [facility]
[address] [place] [address], * Urinalysis With Culture If Indicated - Urine, Clean Catch (08/13/2025 9:38 AM EST) Color, UA Yellow Yellow, Straw 08/13/2025 10:27 AM [facility] Appearance, UA Clear Clear 08/13/2025 10:27 AM [facility] pH, UA 5.5 5.0 - 8.0 08/13/2025 10:27 AM [facility] Specific [place], UA 1.014 1.005 - 1.030 08/13/2025 10:27 AM [facility] Glucose, UA Negative Negative 08/13/2025 10:27 AM [facility] Ketones, UA Negative Negative 08/13/2025 10:27 AM [facility] Bilirubin, UA Negative Negative 08/13/2025 10:27 AM [facility] Blood, UA Negative Negative 08/13/2025 10:27 AM [facility] Protein, UA Negative Negative 08/13/2025 10:27 AM EST [facility] Leuk Esterase, UA Negative Negative 08/13/2025 10:27 AM EST [facility] Nitrite, UA Negative Negative 08/13/2025 10:27 AM EST [facility] Urobilinogen, UA 0.2 E.U./dL 0.2 - 1.0 E.U./dL 08/13/2025 10:27 AM EST [facility] Urine Urine specimen obtained by clean catch procedure / Unknown Collection / Unknown 08/13/2025 9:38 AM EST 08/13/2025 10:24 AM EST [facility] - 08/13/2025 10:27 AM EST In absence of clinical symptoms, the presence of pyuria, bacteria, and/or nitrites on the urinalysis result does not correlate with infection. Urine microscopic not indicated. Chelita Jackson MD URINE ORDERABLES Final Resul t [facility]
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 The last day before reporting a new confirmed COVID-19 would be 12/08/20. -Alida Banda RN 09/09/2020 12/25/2020 documented as of this encounter Care Teams Supervisor Decorating Relationship Specialty Start Date End Date Michaela Sousa APRN [address] [place] [address] PCP - General Internal Medicine 09/04/24 documented as of this encounter
--- OUTSIDE RECORDS SUMMARY | 2025-08-20 04:00 | XMS_ITS ---
Author Organization [facility] Address [address] [facility] [facility] [address] [place] [address] Care Team Providers Care Hardwood Floor Refinisher Name Role Phone PriteshChelita gray Unavailable [phone] REASON FOR VISIT TRH BSO Social History Sex Assigned At : Social History Observation Description Sex Assigned At Female Encounters Encounter Location Date Provider Diagnosis [facility] [address] [place] [address] 08/20/2025 Chelita Jackson Plan Of Treatment Next Appt Details Provider Name:Chelita Renetta , 10/03/2025 04:00:00 PM, [address], [place], [address], Progress Notes * Maia KOVACSDOB:[birth year] (35 yo F)Acc No.[id number]:08/20/2025 Patient: Maia García Provider: Pavel Jackson MD :1990 A ge:35 Y S ex:Female Date:08/20/2025 Address:[address] [place], [place] [id number] Subjective: * Chief Complaints: * T RH BSO Billing Information: * Procedure Codes: * Electronic signature of Park Jackson MD on 09/23/2025 at 03:57 PM EST Sign off status: Pending Visit Status: C HK (Check Out) * Provider: Pavel Jackson MD Date: 10/20/2024 Generated for Kay sarkar/Haydee/Wally on: 11/24/2024 03:57 PM EST
--- OUTSIDE RECORDS SUMMARY | 2025-08-20 06:43 | XMS_ITS | Encounter Summary ---
[facility] Address [address] [place] [address] Care Team Providers Care Gear Lapper Name Role Phone Michaela Sousa APRN Primary Care Provider + [phone] Reason for Visit * Auth/Cert Specialty Diagnoses / Procedures Referred By Contac t Referred To Contact Procedures TOTAL ROBOTIC HYSTERCETOMY BILATERAL SALPINGO-OOPHRECTOMY Referral ID Status Reason Start Date Expiration Date Visits Re quested Visits Authorized [id number] 1 1 Encounter Details Date Type Department Care Team (Late st Contact Info) Description 08/20/2025 6:43 AM EST - 08/20/2025 2:00 PM [facility] Hospital Encounter [facility] OR [address] [place] [address] Chelita Jackson MD [address] [facility] [address] [place] [address] Endometriosis Discharge Disposition: Home or Self Care Social History Tobacco Use Types Packs/Day Years Used Date Smoking Tobacco: Never Passive Smoke Exposure: Never Smokeless Tobacco: Never Alcohol Use Standard Drinks/Week Comments No 0 (1 standard drink = 0.6 oz pur e alcohol) [facility] Utilities Answer Date Recorded In the [...] Date Recorded Retired Total Score 0 05/07/2021 [facility] - Occupational Stress Questionnaire Answer Date Recorded [...] things needed for daily living? No 12/10/2024 [place] Depression Scale Answer Date Recorded [place] Depression Scale Total 2 12/22/2024 The thought [...] GED or equivalent No 08/13/2025 Preferred Language Tanzanian 08/13/2025 PHQ-2 Answer Date Recorded Patient Health [...] 10:45 AM Westley Lux RN * Hand Sport Intern/Ankle Strength Question Answer Date of Assessment Author Plantarflexion, Right strong 08/20/2025 1:30 PM Westley Lux RN Hand Sport Intern, Left strong 08/20/2025 1:30 PM Westley Munoz RN * Safety Question Answer Date of Assessment Author All Alarms alarm(s) activated a nd audible 08/20/2025 1:30 PM Westley Lux RN Airway Safety Measures mask valve resuscitator at bedside;manual resuscitator/mask at bedside;oxygen flowmeter at bedside;suction at bedside 08/20/2025 1:30 PM Westley Lux RN * Musculoskeletal Question Answer Date of Assessment Author Musculoskeletal L [facility] 08/20/2025 1:30 PM Westley Cedillo RN * Skin Question Answer Date of Assessment Author Skin Juani [facility] 08/20/2025 1:30 PM Westley Floyd RN * [...] 08/20/2025 8:10 AM Sandra Mae RN * [place] Suicide Severity Rating Scale (Screener/Recent Self-Report) Question [...] 09 AM Sandra Mae RN * Hand Sport Intern/Ankle Strength Question Answer Date of Assessment Author Dorsiflexion, Left strong 08/20/2025 1:30 PM Westley Lux RN Plantarflexion, Left strong 08/20/2025 1:30 PM E Westley Hunt RN Hand Sport Intern, Right strong 08/20/2025 1:30 PM EST Westley Villavicencio RN Hand Sport Intern, Left strong 08/20/2025 1:30 PM EST Westley [...] Question Answer Date of Assessment Author Musculoskeletal [facility] 08/20/2025 1:30 PM Westley Cedillo RN * Skin Question Answer Date of Assessment Author Skin L [facility] 08/20/2025 1:30 PM Westley Nielsen RN * Cognitive Question Answer Date of Assessment Author Cognitive/Neuro/Behavioral L [facility] 08/20/2025 1:30 PM Westley Lux, DEEPAK * [...] 08/20/2025 8:10 AM Sandra Mae RN * [place] Suicide Severity Rating Scale (Screener/Recent Self-Report) Question [...] commands 07/29 1:30 PM Westley Lux RN [place] Coma Scale Score 15 11/24/2 025 1:30 [...] Relationship/Rapport care explained;reassurance provided 08/20/2025 10:45 AM Westlye Lux RN * [place] Postanesthesia Score Question Answer Entry Date Author Consciousness 2-->fully awake 08/20/2025 1:30 PM Westley Jimenez RN Activity 2-->moves 4 extremit ies voluntarily or on command 08/20/2025 1:30 PM Westley Lux RN * Hand Sport Intern/Ankle Strength Question Answer Entry Date Author Plantarflexion, Right strong 08/20/2025 1:30 PM Westley Lux RN Dorsiflexion, Left strong 08/20/2025 1:30 PM Westley Lux RN Plantarflexion, Left strong 08/20/2025 1:30 PM Westley Johnson RN Hand Sport Intern, Right strong 08/20/2025 1:30 PM EST Westley Villavicencio RN Hand Sport Intern, Left strong 08/20/2025 1:30 PM Westley Munoz [...] Care Everywhere. * Abdominal Hysterectomy Care After (Tanzanian) * General Anesthesia Adult Care After (Tanzanian) documented in this encounter Medications at Time [...] Number Phone Number for Ride/Caregiver: ADOLFO SPOUSE [phone] Who will be staying with you post procedure for the next 24 hours? Name and Phone Number?: ADOLFO SPOUSE [phone] documented in this encounter OR Notes * Op Note - Chelita Jackson MD - 08/20/2025 9:39 AM EST Hysterectomy Procedure Note Pre-operative Diagnosis: Endometriosis, pelvic pain Post-operative Diagnosis: Endometriosis, Pelvic pain, and Abdominopelvic adhesions Operation: Robotic hysterectomy with bilateral salpingo oophorectomy, lysis of adhesions, excision of endometriosis, fulguration of endometriosis Surgeon: Chelita Jackson MD Assistants: Sales Center Associate: Cristi Montoya PA-C was responsible for performing [...] Visit [facility] [address] [phone] Aminata Nassar MD [address] [address] documented as of this encounter Procedures Procedure Name Priority Date/Time Associated Diagnosis Comments TISSUE PATHOLOGY EXAM Routine 08/20/2025 10:03 AM EST Endometriosis [place] LAPS FULG/EXC OVARY VISCERA/PERITONEAL SURFACE 08/20/2025 8:57 AM EST Special Needs * TOTAL LAPAROSCOPIC HYSTERECTOMY BILATERAL SALPINGOOPHORECTOMY WITH DAVINCI ROBOT 08/20/2025 8:57 AM EST Special Needs * POCT PEFORM URINE STAT 08/20/2025 8:06 AM EST [facility] PATH[facility] 08/20/2025 documented in this encounter Results * Tissue Pathology Exam (08/20/2025 10:03 AM EST) Case Report Surgical Pathology Report Case: [id number] Authorizing Provider: Chelita Jackson MD Collected: 08/20/2025 10:15 AM Ordering Location: [facility] Received: 08/20/2025 11:21 AM OR Pathologist: Wade Lawler MD Specimens: 1) - Peritoneum, Peritoneal Lesion For Permanent 2) - Uterus with Cervix, Bilateral Tubes and Ovaries, in formalin 08/21/2025 12:23 PM EST [facility] Clinical Information Endometriosis 08/21/2025 12:23 PM EST [facility] Final Diagnosis PERITONEAL LESION, BIOPSY: Endometriosis 2. UTERUS, CERVIX, BILATERAL OVARIES AND FALLOPIAN TUBES, HYSTERECTOMY WITH BILATERAL SALPINGO-OOPHORECT JIGAR: Benign cervix with mild chronic cervicitis Benign endometrial glands and stroma Benign bilateral ovaries No fallopian tubes grossly or histologically identified Negative for dysplasia or malignancy 08/21/2025 12:23 PM EST [facility] at 1223 EST Gross Description 1. [...] diameter and sectioning reveals a questionable lumen. Full Stack Php Developer sections are submitted as follows: 2A: Anterior and posterior cervix 2B: Full-thickness anterior endomyometrium 2C: Full-thickness posterior endomyometrium 2D: Right ovary 2E: Left ovary and possible left fallopian tube HDM 08/21/2025 12:23 PM [facility] Microscopic Description The slides are reviewed and demonstrate histopathologic features supporting the above rendered diagnosis. 08/21/2025 12:23 PM [facility] Tissue Specimen from peritoneum / Unknown 08/20/2025 10:03 AM EST 08/20/2025 11:21 AM EST Tissue specimen (specimen) Uterus and cervix, CS / Unknown 08/20/2025 10:15 AM EST 08/20/2025 11:21 AM EST Chelita Jackson MD PATHOLOGY/CYTOLOGY ORDERABLE S Final Result [facility]
[address] [id number], [place] [phone] * POC Urine (08/20/2025 8:06 AM EST) HCG, Urine, QL Negative Negative [facility] Lot Number [id number] [facility] Internal Positive Control Positive Positive, Passed [facility] Internal Negative Control Negative Negative, Passed [facility] Expiration Date 02-18-27 [facility] Urine 08/20/2025 8:06 AM EST Darrell Iyer Jr., MD POINT OF CARE TEST ORDYaniv OLIVEROS Final Result Performing Organization Address City/[facility]/ZIP Co de Phone Number [facility]
[address] [place] [address], [place] [phone] * SCANNED PATHOLOGY (08/20/2025) [facility] PATHOLOGY/CYTOLOGY ORDERABLES Final Result documented in this [...] day, May switch to NS IV at [facility] if renal / if indicated New [...] and THEN promethazine IF ondansetron is ineffective. ([facility]) scopolamine patch 1 mg/72 hr 1 patch, Transdermal - scopolamine, Administer over 72 Hours, Once, On Wed08/20/25 at 0758, For 1 dose, ([facility]) Medication Applied 08/20/2025 7:52 AM EST 1 [...] minutes, unless provider at bedside for induction. ([facility]) 0816 (Given - Provid er: Sandra Chery RN) scopolamine patch 1 mg/72 hr 1 patch, Transdermal - scopolamine, Administer over 72 Hours, Once, On Wed08/20/25 at 0758, For 1 dose, ([facility]) 0752 (Medication Janki lied - Provider: Sandra [...] Medication Order 08/18/2025 08/19/2025 08/20/2025 bupivacaine 0.5%-EPINEPHrine [id number] (MARCAINE w/EPI) 0.5% -1:052815 injection (CANCELED) As Needed, Starting on Wed08/20/25 [...] Westley Shearer RN)1157 (Given - Provider: Westley Sheaerr RN)1310 (Given - Provider: Westley Shearer RN) [...] Westley Shearer RN)1233 (Given - Provider: Westley Shearre RN) HYDROmorphone (DILAUDID) injection 0.5 mg 0.5 [...] and THEN promethazine IF ondansetron is ineffective. ([facility]) sodium chloride 0.9 % flush 3-10 mL [...] and THEN promethazine IF ondansetron is ineffective. (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 The last day before reporting a new confirmed COVID-19 would be 12/08/20. -Alida Banda RN 09/09/2020 12/25/2020 documented as of this encounter Care Teams Gear Lapper Relationship Specialty Start Date End Date Michaela Sousa APRN [address] [place] [address] FELIPE MOLINA [address] PCP - General Internal Medicine 09/04/24 documented as of this encounter
--- OUTSIDE RECORDS SUMMARY | 2025-08-20 08:54 | XMS_ITS | Encounter Summary ---
[facility] Address [address] [place] [address] Care Team Providers Care Continuous Improvement Coach Name Role Phone Michaela Sousa APRN Primary Care Provider + [phone] Reason for Visit * Auth/Cert Specialty Diagnoses / Procedures Referred By Contac t Referred To Contact Procedures TOTAL ROBOTIC HYSTERCETOMY BILATERAL SALPINGO-OOPHRECTOMY Referral ID Status Reason Start Date Expiration Date Visits Re quested Visits Authorized [id number] 1 1 Encounter Details Date Type Department Care Team (Late st Contact Info) Description 08/20/2025 8:54 AM EST - 08/20/2025 10:47 AM EST Surgery [facility] OR [address] [place] [address] Chelita Jackson MD [address] [facility] [address] [place] [address] TOTAL ROBOTIC HYSTERCETOMY BILATERAL SALPINGO-OOPHRECTOMY Social History Tobacco Use Types Packs/Day Years Used Date Smoking Tobacco: Never Passive Smoke Exposure: Never Smokeless Tobacco: Never Alcohol Use Standard Drinks/Week Comments No 0 (1 standard drink = 0.6 oz pur e alcohol) [facility] Utilities Answer Date Recorded In [...] Date Recorded Retired Total Score 0 05/07/2021 [facility] - [...] things needed for daily living? No 12/10/2024 [place] Depression Scale Answer Date Recorded [place] Depression Scale Total 2 12/22/2024 The [...] Sign Reading Time Taken Comments Blood Pressure 108/68 08/20/2025 10:45 AM EST Pulse 76 08/20/2025 10:45 AM EST Temperature 36.1 C (97 F) 08/20/2025 10:45 AM EST Respiratory Rate 14 08/20/2025 10:45 AM EST Oxygen Saturation 96% 08/20/2025 10:45 AM EST Inhaled Oxygen Concentration - - [...] Neck large? >17 /43cm-M, >16 /41cm-F 0 08/20/2025 8:09 AM Sandra Mae RN Gender=Male? 0 [...] RN Bib Score 23 08/20/2025 10:45 AM EST Westley Ryan RN Nutrition 4-->excellent 08/20/2025 10:45 AM EST Westley Wallace RN Activity 4-->walks frequently 08/20/2025 10:45 AM Westley Lux RN Mobility 4-->no limitation 08/20/2025 10:45 AM Westley Lux RN * Hand Software Packager/Ankle Strength Question Answer Date of Assessment Author Plantarflexion, Right strong 08/20/2025 1:30 PM Westley Lux RN Hand Software Packager, Left strong 08/20/2025 1:30 PM Westley Munoz RN * Safety Question Answer Date of Assessment Author All Alarms alarm(s) activated a nd audible 08/20/2025 1:30 PM Westley Lux RN Airway Safety Measures mask valve resuscitator at bedside;manual resuscitator/mask at bedside;oxygen flowmeter at bedside;suction at bedside 08/20/2025 1:30 PM Westley Lux RN * Musculoskeletal Question Answer Date of Assessment Author Musculoskeletal L [facility] 08/20/2025 1:30 PM Westley Cedillo RN * Skin Question Answer Date of Assessment Author Skin L [facility] 08/20/2025 1:30 PM Westley Nielsen RN * Suicidal Ideation (Past 1 Month) Question Answer Date of Assessment Author 1. Wish to be (Past 1 Month) No 025 8:10 AM Sandra Mae, DEEPAK 2. Non-Specific Active Suici genevieve Thoughts (Past 1 Month) No 08/20/2025 8:10 AM Sandra Mae RN * Calculated C-SSRS Risk Score (Lifetime/Recent) Answer Date of Assessment Author No Risk Indicated 08/20/2025 8:10 AM Sandra Mae RN * [place] Suicide Severity Rating Scale (Screener/Recent Self-Report) Question [...] 09 AM Sandra Mae RN * Hand Software Packager/Ankle Strength Question Answer Date of Assessment Author Dorsiflexion, Left strong 08/20/2025 1:30 PM Westley Lux, RN Plantarflexion, Left strong 08/20/2025 1:30 PM E Westley Hnut, RN Hand Software Packager, Right strong 08/20/2025 1:30 PM EST Westley Villavicencio RN Hand Software Packager, Left strong 08/20/2025 1:30 PM EST Westley [...] Question Answer Date of Assessment Author Musculoskeletal [facility] 08/20/2025 1:30 PM Westley Cedillo RN * Skin Question Answer Date of Assessment Author Skin L [facility] 08/20/2025 1:30 PM Westley Nielsen RN * Cognitive Question Answer Date of Assessment Author Cognitive/Neuro/Behavioral L [facility] 08/20/2025 1:30 PM Westley Lux, DEEPAK [...] 08/20/2025 8:10 AM Sandra Mae RN * [place] Suicide Severity Rating Scale (Screener/Recent Self-Report) Question [...] as of this encounter Mental Status * [place] Coma Scale Question Answer Entry Date Author Assessment Qualifiers patient chemically sedated or paralyzed 08/20/2025 11:15 AM Westley Lux RN Best Eye Response 4-->(E4) spontaneous 5 1:30 PM Westley Lux RN Best Verbal Response 5-->(V5) oriented 5 1:30 PM Westley Lux RN Best Motor Response 6-->(M6) obeys commands 07/29 1:30 PM Westley Lux RN Teresa Coma Scale Score 15 025 1:30 PM Westley Lux RN * [...] 1:30 PM Westley Lux RN * Hand Software Packager/Ankle Strength Question Answer Entry Date Author Plantarflexion, Right strong 08/20/2025 1:30 PM Westley Lux RN Dorsiflexion, Left strong 08/20/2025 1:30 PM Westley Lux RN Plantarflexion, Left strong 08/20/2025 1:30 PM Westley Johnson RN Hand Software Packager, Right strong 08/20/2025 1:30 PM EST Westley Villavicencio RN Hand Software Packager, Left strong 08/20/2025 1:30 PM Westley Munoz, RN Dorsiflexion, Right strong 08/20/2025 1:30 PM ES Westley Alan, DEEPAK * Pupils Question Answer Entry Date [...] of Violence 0 08/20/2025 8 :10 AM aSndra Mae RN Confused 0 08/20/2025 8:10 AM Sandra Mae, RN Irritable 0 08/20/2025 8:10 AM Sandra Mae, RN Boisterous 0 08/20/2025 8:10 AM Sandra Mae RN Verbal Threats 0 08/20/2025 8:10 AM Sandra Mae RN Physical Threats 0 08/20/2025 8:10 AM Sandra Mae, RN Attacking Objects 0 08/20/2025 8:1 0 AM Sandra Mae RN Agitated/Impulsive 0 08/20/2025 8: 10 AM Sandra Mae, RN Paranoid/Suspicious 0 08/20/2025 8 :10 AM [...] Care Everywhere. * Abdominal Hysterectomy Care After (Namibian) * General Anesthesia Adult Care After (Namibian) documented in this encounter Medications at Time [...] Number Phone Number for Ride/Caregiver: ADOLFO SPOUSE [phone] Who will be staying with you post procedure for the next 24 hours? Name and Phone Number?: ADOLFO SPOUSE [phone] documented in this encounter OR Notes * Op Note - Chelita Jackson MD - 08/20/2025 9:39 AM EST Hysterectomy Procedure Note Pre-operative Diagnosis: Endometriosis, pelvic pain Post-operative Diagnosis: Endometriosis, Pelvic pain, and Abdominopelvic adhesions Operation: Robotic hysterectomy with bilateral salpingo oophorectomy, lysis of adhesions, excision of endometriosis, fulguration of endometriosis Surgeon: Chelita Jackson MD Assistants: Ornament Maker Hand: Cristi Montoya PA-C was responsible for performing [...] Description 10/31/2025 3:15 PM EST Office Visit [facility] GASTROENTEROLOGY [address] [address] Aminata Nassar MD [address] [address] documented as of this encounter Procedures Procedure Name Priority Date/Time Associated Diagnosis Comments TISSUE PATHOLOGY EXAM Routine 08/20/2025 10:03 AM EST Endometriosis MO LAPS FULG/EXC OVARY VISCERA/PERITONEAL SURFACE 08/20/2025 8:57 AM EST Special Needs * TOTAL LAPAROSCOPIC HYSTERECTOMY BILATERAL SALPINGOOPHORECTOMY WITH DAVINCI ROBOT 08/20/2025 8:57 AM EST Special Needs * POCT PEFORM URINE STAT 08/20/2025 8:06 AM EST SCANNED PATHOLOGY 08/20/2025 documented in this encounter Results * Tissue Pathology Exam (08/20/2025 10:03 AM EST) Case Report Surgical Pathology Report Case: [id number] Authorizing Provider: Chelita Jackson MD Collected: 08/20/2025 10:15 AM Ordering Location: [facility] Received: 08/20/2025 11:21 AM OR Pathologist: Wade Lawler MD Specimens: 1) - Peritoneum, Peritoneal Lesion For Permanent 2) - Uterus with Cervix, Bilateral Tubes and Ovaries, in formalin 08/21/2025 12:23 PM EST [facility] Clinical Information Endometriosis 08/21/2025 12:23 PM EST [facility] Final Diagnosis PERITONEAL LESION, BIOPSY: Endometriosis 2. UTERUS, CERVIX, BILATERAL OVARIES AND FALLOPIAN TUBES, HYSTERECTOMY WITH BILATERAL SALPINGO-OOPHORECT JIGAR: Benign cervix with mild chronic cervicitis Benign endometrial glands and stroma Benign bilateral ovaries No fallopian tubes grossly or histologically identified Negative for dysplasia or malignancy 08/21/2025 12:23 PM EST [facility] at 1223 EST Gross Description 1. [...] diameter and sectioning reveals a questionable lumen. Weather Stripper sections are submitted as follows: 2A: Anterior and posterior cervix 2B: Full-thickness anterior endomyometrium 2C: Full-thickness posterior endomyometrium 2D: Right ovary 2E: Left ovary and possible left fallopian tube HDM 08/21/2025 12:23 PM [facility] Microscopic Description The slides are reviewed and demonstrate histopathologic features supporting the above rendered diagnosis. 08/21/2025 12:23 PM [facility] Tissue Specimen from peritoneum / Unknown 08/20/2025 10:03 AM EST 08/20/2025 11:21 AM EST Tissue specimen (specimen) Uterus and cervix, CS / Unknown 08/20/2025 10:15 AM EST 08/20/2025 11:21 AM EST Chelita Jackson MD PATHOLOGY/CYTOLOGY ORDERABLE S Final Result [facility]
[address] [place] [address], [place] [phone] * POC Urine (08/20/2025 8:06 AM EST) HCG, Urine, QL Negative Negative [facility] Lot Number [id number] [facility] Internal Positive Control Positive Positive, Passed [facility] Internal Negative Control Negative Negative, Passed [facility] Expiration Date 02-18-27 [facility] Urine 08/20/2025 8:06 AM EST Darrell Iyer Jr., MD POINT OF CARE TEST ORDE DOMO Final Result Performing Organization Address City/[facility]/ZIP Co de Phone Number [facility]
[address] [place] [address], [place] [phone] * SCANNED PATHOLOGY (08/20/2025) [facility]CYTOLOGY ORDERABLES Final Result documented in this encounter Visit Diagnoses Not on filedocumented in this encounter Admitting Diagnoses Diagnosis Endometriosis [...] Given 08/20/2025 7:52 AM EST 1,000 mg bupivacaine 0.5%-EPINEPHrine 1:898921 (MARCAINE w/EPI) 0.5% -1:297108 injection As Needed, Starting on Wed08/20/25 at 0945 Given 08/20/2025 9:45 AM EST 30 mL droperidol (INAPSINE) injection 0.625 mg 0.625 mg, [...] On Wed08/20/25 at 0743, For 1 dose, (GUDLEIA) Given 08/20/2025 7:52 AM EST 600 mg heparin (porcine) 5000 UNIT/ML injection As Needed, Starting on Wed08/20/25 at 0945 Given 08/20/2025 9:45 AM EST 5,000 Units Right Lower Abdomen hydrALAZINE (APRESOLINE) injection 5 mg 5 mg, [...] day, May switch to NS IV at [facility] if renal / if indicated New Bag [...] and THEN promethazine IF ondansetron is ineffective. ([facility]) scopolamine patch 1 mg/72 hr 1 patch, Transdermal - scopolamine, Administer over 72 Hours, Once, On Wed08/20/25 at 0758, For 1 dose, ([facility]) Medication Applied 08/20/2025 7:52 AM EST [...] Prophylaxis 0920 (New Bag - Prov ider: Shanann Juárez CRNA) famotidine (PEPCID) tablet 20 mg [...] On Wed08/20/25 at 0758, For 1 dose, ([facility]) 0752 (Medication Janki lied - Provider: [...] day, May switch to NS IV at [facility] if renal / if indicated 0845 (New Bag - Prov ider: Shannan Juárez CRNA)1029 (New Bag - Provider: Shannan Juárez CRNA)1050 (Stopped - Provider: Shannan Juárez CRNA) lactated ringers infusion 9 mL/hr, Intravenous, Continuous, Starting on Wed08/20/25 at 1109, For 1 day 1109 (Due) PRN Medication Order 08/18/2025 08/19/2025 08/20/2025 bupivacaine 0.5%-EPINEPHrine 1:328280 (MARCAINE w/EPI) 0.5% -1:632197 injection (CANCELED) As Needed, Starting on Wed08/20/25 [...] and THEN promethazine IF ondansetron is ineffective. ([facility]) documented in this encounter Additional Health Concerns Infection Onset Date Last Indicated Resolved Time COVID (History) Comment:Per regional checker for [employer], 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 The last day before reporting a new confirmed COVID-19 would be 12/08/20. -Alida Banda RN 09/09/2020 12/25/2020 documented as of this encounter Care Teams Continuous Improvement Coach Relationship Specialty Start Date End Date Michaela Sousa APRN [facility] [address] [place] [address] PCP - General Internal Medicine 09/04/24 documented as of this encounter
--- OUTSIDE RECORDS SUMMARY | 2025-08-20 09:12 | XMS_ITS | Encounter Summary ---
Author Organization [facility] Address [address] [place] [address] Care Team Providers Care Marine Oil Terminal Superintendent Name Role Phone SousaSoraidarebekah KING Primary Care Provider + [phone] Reason for Visit * Auth/Cert Specialty Diagnoses / Procedures Referred By Contac t Referred To Contact Procedures TOTAL ROBOTIC HYSTERCETOMY BILATERAL SALPINGO-OOPHRECTOMY Referral ID Status Reason Start Date Expiration Date Visits Re quested Visits Authorized [id number] 1 1 Encounter Details Date Type Department Care Team (Late st Contact Info) Description 08/20/2025 9:12 AM EST Anesthesia Event [facility] OR [address] [place] [phone] Darrell Iyer Jr., MD [address] [place] [id number] Anesthesia Record Procedure Summary Procedure Name Responsible [...] = 0.6 oz pur e alcohol) [facility] Utilities Answer Date Recorded In the past 12 months has [employer], gas, oil, or water [employer] threatened to shut off services in your [...] Date Recorded Retired Total Score 0 05/07/2021 [facility] [place] of Occupat ional Health - Occupational Stress [...] things needed for daily living? No 12/10/2024 [place] Depression Scale Answer Date Recorded [place] Depression Scale Total 2 12/22/2024 The thought [...] GED or equivalent No 08/13/2025 Preferred Language Lebanese 08/13/2025 PHQ-2 Answer Date Recorded Patient Health [...] Date: 08/20/25 Room / Location: [facility] OR [address] [place] [address] [facility] OR Anesthesia Start: 911 Anesthesia Stop: [...] and Staff Patient location during procedure: OR SALES ENABLEMENT SPECIALIST/CAA: Shannan Juárez CRNA Indications and Patient Condition [...] Cardiovascular ECG reviewed (+) hypertension (-) past VT, dysrhythmias, angina, cardiac stents ROS comment: ECG NSR ECHO 2020 EF 60% no significant valvular disease Neuro/Psych (+) headaches, psychiatric history (-) seizures, CVA GI/Hepatic/Renal/Endo (+) GERD, PUD (-) no renal disease, diabetes, no thyroid disorderLiver disease: enzyme for ATP missing. 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 Plan discussed with SALES ENABLEMENT SPECIALIST. CODE STATUS: documented in this encounter Plan of Treatment Upcoming Encounters Date Type Department Care Team (Late st Contact Info) Description 10/31/2025 3:15 PM EST Office Visit [facility] [address] [phone] MadayAminata MD 1720 [facility] [address] [place] [address] documented as of this encounter [...] and Staff Patient location during procedure: OR SALES ENABLEMENT SPECIALIST/CAA: Shannan Juárez CRNA Indications and Patient Condition [...] Resolved Time COVID (History) Comment:Per regional teacher education instructor for [facility], 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 The last day before reporting a new confirmed COVID-19 would be 12/08/20. -Alida Banda RN 09/09/2020 12/25/2020 documented as of this encounter Care Teams Marine Oil Terminal Superintendent Relationship Specialty Start Date End Date Michaela Sousa APRN [address] [place] [address] [place] [address] PCP - General Internal Medicine 09/04/24 documented as of this encounter
--- OUTSIDE RECORDS SUMMARY | 2025-08-21 05:00 | XMS_ITS ---
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 May hold for loose stool. May double dose for severe constipation. 08/13/2025 Active oxyCODONE HCl 10 MG Tablet 1 tablet po e very 4 hours; Duration: 2 days 08/21/2025 Active Vitamin D Active oxyCODONE HCl 5 MG Tablet 1 tablet po every 6 hours; Duration: 3 days Take as needed for severe post operative pain. 08/13/2025 Active Pantoprazole Sodium Active Neurontin Active Ondansetron 12/13/2018 Active Ondansetron HCl 4 MG Tablet 1 tablet po every 8 hours; Duration: 3 days As needed for post operative nausea 08/13/2025 Active Acetaminophen Extra Strength 500 MG Tablet 2 tablet po every 6 hours; Duration: 14 days Take on schedule for 14 days to prevent post operative pain, then as needed. 08/13/2025 Active Estradiol 0.1 MG/24HR Patch Twice Weekly 1 patch to skin Transdermal Two times a Week; Duration: 84 days 08/13/2025 Active Gabapentin 12/12/2018 Active Iron Active Lexapro Active Social History Tobacco Use: Social History [...] Domestic violence: No Do you have any anabaptism, m oral, or cultural beliefs or customs that your provider should know about? No Would you object to blood products in the event of an emergency? No Vital Signs Blood pressure systolic 124 mm Hg 08/21/20 25 Blood pressure diastolic 78 mm Hg 025 Height 69 in 08/21/2025 Weight 158.2 lbs 08/21/2025 BMI 23.36 kg/m2 08/21/2025 Encounters Encounter Location Date Provider Diagnosis [facility] [address] [facility] [address] [place] [address] 08/21/2025 Chelita Jackson Post-operative pain G89.18 Assessments Encounter Date Diagnosis (ICD Code) Assessment Notes Treatment Notes Treatment Clinical Notes Section Notes 08/21/2025 Post-operative pain (ICD-10 - G89.18) No evidence of viceral injury or internal bleeding. Precautions reviewed. 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 She described the pain as more intense than expected, affecting both sides of her pelvis and causing significant distress, including an episode last night where she was unable to stop crying. Maia attempted home pain management but ultimately visited the ER, where she received IV Dilaudid and oxycodone 10 mg, which helped temporarily. A CT scan performed at the ER was normal and showed no hydronephrosis or large pelvic blood collections. UA was normal CBC was normal. Maia reported difficulty getting out of bed due to pain and continues to seek effective relief. She remains concerned about the persistent pain and its impact on her daily function. Examination Category Sub-Category Detail Notes Category Not es General Examination GENERAL APPEARANCE: well dev eloped, well nourished, alert, well hydrated, in no distress , in no acute distress, well developed, well nourished NEURO/PSYCH: Oriented to person, place, and time. Mood pleasant, normal affect CARDIOPULMONARY: Respiratory effort i s even and unlabored ABDOMINAL/GASTROINTESTINAL: Abdomen tend er without guarding or rebound, no masses palpated. 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 She described the pain as more intense than expected, affecting both sides of her pelvis and causing significant distress, including an episode last night where she was unable to stop crying. Maia attempted home pain management but ultimately visited the ER, where she received IV Dilaudid and oxycodone 10 mg, which helped temporarily. A CT scan performed at the ER was normal and showed no hydronephrosis or large pelvic blood collections. UA was normal CBC was normal. Maia reported difficulty getting out of bed due to pain and continues to seek effective relief. She remains concerned about the persistent pain and its impact on her daily function. 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 Orozco. P regnancy # 2: M ABLizeth P regnancy # 3: M AB. P regnancy # 4: 0 12/10/2024, Repeat , Female, Darlene, 6.4 lbs. * Surgical History: C section x2 Liver surgery Cholecystectomy - 2008 Dx Lap - fulguration of endometriosis 2019 Rhinoplasty Tonsillectomy - child Bilateral Tubal Ligation TRH, BSO, robotic laparoscopy fulguration/ excision of lesions 08/20/25 Surgical History verified. * Hospitalization/Major Diagno stic [...] omestic violence: No. Do you have any anabaptism, moral, or cultural beliefs or customs that your provider should know about?: No. Would you object to blood products in the event of an emergency?: No. D rug/Alcohol: A ANGELA-C (Standard) D id you have a drink containing alcohol in the past year? N o S ocial History Verified. * Medications: T akingAcetaminophen Extra Strength 500 MG Tablet 2 tablet po every 6 hours Take on schedule for 14 days to prevent post operative pain, then as needed.Estradiol 0.1 MG/24HR Patch Twice Weekly 1 patch to skin Transdermal Two times a Week Gabapentin Iron Lexapro Neurontin Ondansetron Ondansetron HCl 4 MG Tablet 1 tablet po every 8 hours As needed for post operative nauseaoxyCODONE HCl 5 MG Tablet 1 tablet po every 6 hours Take as needed for severe post operative pain.Pantoprazole Sodium Pepcid Polyethylene Glycol 3350 17 GM/SCOOP Powder 1 scoop po daily Use daily for 14 days to prevent post operative constipation. May hold for loose stool. May double dose for severe constipation.Vitamin D Taking Acetaminophen Extra Strength 500 MG Tablet 2 tablet po every 6 hours Take on schedule for 14 days to prevent post operative pain, then as needed.Taking Estradiol 0.1 MG/24HR Patch Twice Weekly 1 patch to skin Transdermal Two times a Week Taking Gabapentin Taking Iron Taking Lexapro Taking Neurontin Taking Ondansetron Taking Ondansetron HCl 4 MG Tablet 1 tablet po every 8 hours As needed for post operative nauseaTaking oxyCODONE HCl 5 MG Tablet 1 tablet po every 6 hours Take as needed for severe post operative pain.Taking Pantoprazole Sodium Taking Pepcid Taking Polyethylene Glycol 3350 17 GM/SCOOP Powder 1 scoop po daily Use daily for 14 days to prevent post operative constipation. May hold for loose stool. May double dose for severe constipation.Taking Vitamin D DiscontinuedPropranolol HCl Medication List reviewed and reconciled with the patientDiscontinued Propranolol HCl Medication List reviewed and reconciled with the patient * Allergies: M edications: Adhesive Tape: Unspecified - AllergyCELEBREX (CELECOXIB CAPS): Unspecified - Allergy - Onset Date 6538-85-10YAPQW EXAM GLOVES (DISPOSABLE GLOVES): Unspecified - Allergy - Onset Date 5073-06-75Jxuo: Coconut: Unspecified - AllergyNSAIDS: Unspecified - Allergy - Onset Date 4248-78-70MOMLBM: Unspecified - Allergy - Onset Date 5794-73-83Ondy: Pineapple: Unspecified - AllergySULFAMETHOXAZOLE-TRIMETHOPRIM: Unspecified - Allergy - Onset Date 2466-96-88vreEvvbniwze Verified. Objective: * Vitals: B P:124/78mm Hg, Ht: 69 in, Wt:158.2lbs, BMI:23.36Index. * Examination: G eneral Examination: GENERAL APPEARANCE: w ell developed, well nourished, alert, well hydrated, in no distress , in no acute distress, well developed, well nourished. NEURO/PSYCH: O riented to person, place, and time. Mood pleasant, normal affect. CARDIOPULMONARY: R espiratory effort is even and unlabored.? ABDOMINAL/GASTROINTESTINAL: A bdomen tender without guarding or rebound, no masses palpated. Incisions CDI. Assessment: * Assessment: 1. P ost-operative pain - G89.18 (Primary) Plan: * Treatment: * Follow Up: 4 Weeks Billing Information: * Visit Code: [id number] Office/Outpatient visit, est patient. * Sign off status: Completed Visit Status: C HK (Check Out) true * Provider: Pavel Jackson MD Date: 10/21/2024 Generated for Kay sarkar/Haydee/Ramositting on: 11/24/2024 03:58 PM EST
--- OUTSIDE RECORDS SUMMARY | 2025-08-25 16:28 | XMS_ITS | Encounter Summary ---
Author Organization [facility] Address [address] [place] [address] Care Team Providers Care Bee Rancher Name Role Phone Michaela Sousa APRN Primary Care Provider + [phone] Reason for Visit * Reason Comments Pain Encounter Details Date Type Department Care Team (Late st Contact Info) Description 08/25/2025 4:28 PM EST - 08/25/2025 7:45 PM [facility] Emergency [facility] EMERGENCY DEPARTMENT [address] [place] [id number] Kalin Morales DO [address] [facility] [place] [address] Lower abdominal pain (Primary Dx); History of recent surgery Discharge Disposition: Home or Self Care Social History Tobacco Use Types Packs/Day Years Used Date Smoking Tobacco: Never Passive Smoke Exposure: Never Smokeless Tobacco: Never Alcohol Use Standard Drinks/Week Comments No 0 (1 standard drink = 0.6 oz pur e alcohol) [facility] Utilities Answer Date Recorded In the past 12 months has [employer] electric, gas, oil, or water company threatened [...] Retired Total Score 0 05/07/2021 [facility] - Occupational [...] things needed for daily living? No 12/10/2024 [place] Depression Scale Answer Date Recorded [place] Depression Scale Total 2 12/22/2024 The thought [...] GED or equivalent No 08/13/2025 Preferred Language Vietnamese 08/13/2025 PHQ-2 Answer Date Recorded Patient Health [...] Sign Reading Time Taken Comments Blood Pressure 108/83 08/25/2025 7:00 PM EST Pulse 68 08/25/2025 7:00 PM EST Temperature 36.9 C (98.5 F) 08/25/2025 4:27 PM EST Respiratory Rate 20 08/25/2025 6:30 PM EST Oxygen Saturation 96% 08/25/2025 7:00 PM EST Inhaled Oxygen Concentration - - Weight 70.8 kg (156 lb 1.4 oz) 08/25/2025 4:27 P M EST Height 172.7 cm (5' 8 ) 08/25/2025 4:27 PM EST Body Mass Index 23.73 08/25/2025 4:27 PM EST documented in this encounter Functional Status * Safety (Adult) Question Answer Date of Assessment Author Safety ADRIANA WDJuani 08/25/2025 5:15 PM EST Sarah Lopez, Briquette Operator * Calculated C-SSRS Risk Score (Lifetime/Recent) Answer Date of Assessment Author No Risk Indicated 08/25/2025 4:27 PM EST Last Issa, RN * [place] Suicide Severity Rating Scale (Screener/Recent Self-Report) Question Answer Date of Assessment Author 1. Wish to be (Past 1 Month) No 025 4:27 PM EST Last Loredo, RN 2. Non-Specific Active Suici genevieve Thoughts (Past 1 Month) No 08/25/2025 4:27 PM EST Darnell Loredo, RN 6. Suicidal Behavior (Lifetime) No 4:27 PM EST Last Loredo, RN * Libra Griffiths Fall Risk Assessment (First 24 hrs only, then right click and complete this group) Question Answer Date of Assessment Author Last Known Fall 0 08/25/2025 5:15 PM EST Sarah Kam, Briquette Operator Mobility 1 08/25/2025 5:15 PM EST Sarah Lopez, Briquette Operator Medications 0 08/25/2025 5:15 PM EST Sarah Lpoez, Briquette Operator Mental Status/LOC/Awareness 0 08/25/2025 5: 15 PM EST Sarah Al, Briquette Operator Toileting Needs 0 08/25/2025 5:15 PM EST Sarah Kam, Briquette Operator Volume/Electrolyte Status 3 08/25/2025 5:15 PM EST Sarah Al, Briquette Operator Communication/Sensory 1 08/25/2025 5:15 PM EST Sarah lA, Briquette Operator Libra Griffiths Fall Risk Total 6 08/25/2025 5 :15 PM EST Sarah Al, Briquette Operator * Peripheral Neurovascular (Adult) Question Answer Date of Assessment Author Peripheral Neurovascular [facility] 08/25/2025 5 :14 PM EST Sarah Al, Briquette Operator * Cardiac (Adult) Question Answer Date of Assessment Author Cardiac [facility] 08/25/2025 5:13 PM EST Sarah Lopez, Briquette Operator * Safety (Adult) Question Answer Date of Assessment Author Safety [facility] 08/25/2025 5:15 PM EST Sarah Lopez, Briquette Operator * Neuro Cognitive (Adult) Question Answer Date of Assessment Author Cognitive/Neuro/Behavioral [facility]DL WDL 08/25/2025 5:15 PM EST Ha Al N, Briquette Operator * Violence Assessment Tool Risk Indicators Question Answer Date of Assessment Author Assessment Type Initial Assessment 08/25/2025 4:27 PM EST Last Loredo, RN History of Violence 0 08/25/2025 4:27 PM Last Fletcher, RN Confused 0 08/25/2025 4:27 PM EST Last Shipman ams, RN Irritable 0 08/25/2025 4:27 PM EST Last Shipman ams, RN Boisterous 0 08/25/2025 4:27 PM EST Last Shipman ams, RN Verbal Threats 0 08/25/2025 4:27 PM EST Last Travis, RN Physical Threats 0 08/25/2025 4:27 PM EST Last Cameron, RN Attacking Objects 0 08/25/2025 4:27 PM EST Last Loredo, RN Agitated/Impulsive 0 08/25/2025 4:27 PM EST Last Loredo, RN Paranoid/Suspicious 0 08/25/2025 4:27 PM Last Fletcher, RN Substance Intoxication/Withdrawal 0 08/25/2025 4:27 PM EST Darnell Loredo, RN Socially Inappropriate/Disruptive Behavior 0 08/25/2025 4:27 PM Last Parikh , RN Body Language 0 08/25/2025 4:27 PM EST Last Byrd, RN Violence Assessment Tool Total Score 0 08/25/2025 4:27 PM Last Parikh , RN * Calculated C-SSRS Risk Score (Lifetime/Recent) Answer Date of Assessment Author No Risk Indicated 08/25/2025 4:27 PM EST Last Issa, DEEPAK * [place] Suicide Severity Rating Scale (Screener/Recent Self-Report) Question Answer Date of Assessment Author 1. Wish to be (Past 1 Month) No 025 4:27 PM Last Parikh, RN 2. Non-Specific Active Suici genevieve Thoughts (Past 1 Month) No 08/25/2025 4:27 PM Darnell Parikh, RN 6. Suicidal Behavior (Lifetime) No 4:27 PM Last Parikh, RN * Libra Griffiths Fall Risk Assessment (First 24 hrs only, then right click and complete this group) Question Answer Date of Assessment Author Last Known Fall 0 08/25/2025 5:15 PM EST Sarah Kam, Briquette Operator Mobility 1 08/25/2025 5:15 PM EST Sarah Lopez, Briquette Operator Medications 0 08/25/2025 5:15 PM EST Sarah Lopez, Briquette Operator Mental Status/LOC/Awareness 0 08/25/2025 5: 15 PM EST Sarah Al, Briquette Operator Toileting Needs 0 08/25/2025 5:15 PM EST Sarah Kam, Briquette Operator Volume/Electrolyte Status 3 08/25/2025 5:15 PM EST Sarah Al, Briquette Operator Communication/Sensory 1 08/25/2025 5:15 PM EST Sarah Al, Briquette Operator Libra Griffiths Fall Risk Total 6 08/25/2025 5 :15 PM EST Sarah Al, Briquette Operator documented as of this encounter Mental Status * Cardiac (Adult) Question Answer Entry Date Author Cardiac [facility] 08/25/2025 5:13 PM EST Sarah Lopez, Briquette Operator * Safety (Adult) Question Answer Entry Date Author Safety [facility] 08/25/2025 5:15 PM EST Sarah Lopez, Briquette Operator * Neuro Cognitive (Adult) Question Answer Entry Date Author Cognitive/Neuro/Behavioral [facility] 08/25/2025 5:15 PM EST Ha Al, Briquette Operator * Violence Assessment Tool Risk Indicators Question Answer Entry Date Author Assessment Type Initial Assessment 08/25/2025 4: 27 PM Last Parikh, RN History of Violence 0 08/25/2025 4 :27 PM Last Parikh, RN Confused 0 08/25/2025 4:27 PM Last Parikh, RN Irritable 0 08/25/2025 4:27 PM Last Parikh, RN Boisterous 0 08/25/2025 4:27 PM Last Parikh, RN Verbal Threats 0 08/25/2025 4:27 PM Last Parikh RN Physical Threats 0 08/25/2025 4:27 PM Last Parikh RN Attacking Objects 0 08/25/2025 4:2 7 PM Last Parikh RN Agitated/Impulsive 0 08/25/2025 4: 27 PM Last Parikh RN Paranoid/Suspicious 0 08/25/2025 4 :27 PM Last Parikh RN Substance Intoxication/Withdrawal 0 08/25/2025 4:27 PM Last Parikh RN Socially Inappropriate/Disruptive Behavior 0 08/25/2025 4:27 PM Last Parikh RN Body Language 0 08/25/2025 4:27 PM Last Parikh RN Violence Assessment Tool Total Score 0 08/25/2025 4:27 PM Last Parikh RN documented in this encounter Discharge Instructions * Attachments The following attachments cannot be sent through Care Everywhere. * Abdominal Pain Adult (Vietnamese) documented in this encounter Medications at Time [...] by mouth 3 (Three) Times a Day. ipratropium-albuter ol (DUO-NEB) 0.5-2.5 mg/3 ml nebulizer INHALE THE CONTENTS OF 1 VIAL VIA NEBULIZER EVERY 6 HOURS 06/27/2025 naloxone (NARCAN) 4 MG/0.1ML nasal spray Administer 1 spray into the nostril(s) as directed by provider As Needed for Opioid Reversal. Call 911. Don't prime. [place] in 1 nostril for overdose. Repeat in 2-3 minutes in other nostril if no or minimal breathing/respo nsiveness. 1 each 08/25/2025 ondansetron ODT (ZOFRAN-ODT) 4 MG disintegrating tabletIndications:H yperemesis gravidarum DISSOLVE 2 TABLETS UNDER THE TONGUE EVERY 8 HOURS NEEDED FOR NAUSEA AND VOMITING 270 tablet 3 07/27/2025 oxyCODONE-acetamino phen (PERCOCET) 10-325 MG per tabletIndications:L ower abdominal pain,History of recent surgery Take 1 tablet by mouth Every 6 (Six) Hours As Needed for Severe Pain. 12 tablet 08/25/2025 pantoprazole (PROTONIX) 40 MG EC tabletIndications:H yperemesis [...] rectum Every 6 (Six) Hours As Needed (constipation). 4 each 02/16/2025 tiZANidine (ZANAFLEX) 4 MG tablet take 1 TO 1 AND 1/2 TABLETS BY MOUTH TWICE DAILY 07/04/2025 documented as of this encounter ED Notes * Kalin Morales DO - 08/25/2025 7:45 PM EST EMERGENCY DEPARTMENT ENCOUNTER Name: Maia Kovacs Date of encounter: 08/25/2025 PCP: Michaela Sousa APRN : 1990 Room Number: 07/07 CLAUDINE Provider Statement: Patient or patient accounting representative verbalized consent for the use of AmbientListening during the visit with Kalin Morales DO for chart documentation. 08/30/2025 21:18 EST Independent Historians: Patient History of Present Illness The patient is a 35-year-old female with a known history of endometriosis, presenting with severe postoperative pain following a hysterectomy, salpingectomy, and oophorectomy performed on 08/20/2025.The patient arrived unaccompanied. The patient reports experiencing severe pain since the aforementioned surgical procedures. She describes the pain as distinct from her previous pain, characterizing it as deeper and not incisional, with a sensation mckinley to being cut. She contacted her senior project manager engineering-certified personal trainer today due to depletion of her prescribed analgesic, oxycodone 10 mg, earlier today. She is unable to take ibuprofen dueto a history of gastrointestinal bleeding and has been alternating with acetaminophen, but her painhas escalated to a severe level. Her senior project manager engineering-certified personal trainer advised her to seek emergency care if the pain became unmanageable. The patient reports that she had a follow-up appointment with Dr. Jackson on 08/21/2025, who informedher that her round ligament had been tacked up and there was scar tissue surrounding it. Sutures that had been in place for years were undone, and scar tissue was excised. The patient has a history of two sections, which contributed to the formation of scar tissue. A computed tomography (CT) scan performed at [facility] due to her severe pain revealed no complications, although the presence of air in her bladder was noted, which is expected post-robotic surgery. Her lactate levels were slightly elevated. The patient has a history of gastrointestinal bleeding associated with nonsteroidal anti-inflammatory drugs (NSAIDs) and experienced a gastrointestinal bleed with intravenous ketorolac (Toradol) following her section, necessitating an endoscopic evaluation that revealed three ulcers. She plans to schedule an appointment with Dr. Jackson for the next available Wednesday. PAST SURGICAL HISTORY: - Hysterectomy, salpingectomy, and oophorectomy on 08/20/2025 - Two sections Review of Systems Review of prior external notes (non-ED) -and- Review of prior external test results outside of thisencounter: Previous Hemoglobin/Creatine Results 05/15/25 1917 06/01/25 1506 08/13/25 1007 08/25/25 1725 08/28/25 1336 HGB -- 13.1 11.8* 11.5* 11.9* CREATININE 0.74 0.71 -- 0.57 0.70 PAST MEDICAL HISTORY Past Medical History: Diagnosis Date Abdominal pain Adrenal insufficiency (Gonzales's disease) Anemia Cholelithiasis Lap ignacia 2010 Elevated [...] status asthmaticus 05/07/2018 no problems in years PONV (postoperative nausea and vomiting) Thyroid nodule Vocal cord dysfunction PAST SURGICAL HISTORY Past Surgical History: Procedure Laterality Date ABDOMINAL SURGERY 2018 Exploratory lap SECTION N/A 05/16/2021 Procedure: SECTION PRIMARY; Surgeon: Raghavendra Orozco MD; Location: [facility];Service: Obstetrics/Gynecology; Laterality: N/A; SECTION N/A 12/10/2024 Procedure: SECTION REPEAT; Surgeon: Seda Sutton MD; Location: [facility];Service: Obstetrics/Gynecology; Laterality: N/A; CHOLECYSTECTOMY 2008 COLONOSCOPY N/A 09/28/2018 Procedure: COLONOSCOPY; Surgeon: Jens Zuluaga MD; Location: [facility]; Service: Gastroenterology CYSTOSCOPY RETROGRADE PYELOGRAM Right 12/18/2022 Procedure: CYSTOSCOPY RIGHT RETROGRADE PYELOGRAM, DIAGNOSTIC URETEROSCOPY, RIGHT URETERAL STENT; Surgeon: Raulito Lancaster MD; Location: [facility]; Service: Urology; Laterality: Right; ENDOSCOPY N/A 12/10/2017 Procedure: ESOPHAGOGASTRODUODENOSCOPY; Surgeon: Jens Zuluaga MD; Location: [address] [facility]; Service: Gastroenterology ENDOSCOPY N/A 05/12/2018 Procedure: ESOPHAGOGASTRODUODENOSCOPY; Surgeon: Jens Zuluaga MD; Location: [facility]; Service: Gastroenterology ENDOSCOPY N/A 05/17/2022 Procedure: ESOPHAGOGASTRODUODENOSCOPY; Surgeon: Jens Morales MD; Location: [facility]; Service: Gastroenterology; Laterality: N/A; ENDOSCOPY N/A 05/17/2025 Procedure: ESOPHAGOGASTRODUODENOSCOPY; Surgeon: Aminata Nassar MD; Location: [address] [facility]; Service: Gastroenterology; Laterality: N/A; FULGURATION ENDOMETRIOSIS 2019 (done twice) KNEE MENISCECTOMY Left LIVER BIOPSY 2018 LUMBAR SYMPATHETIC NERVE BLOCK PELVIC LAPAROSCOPY N/A 08/20/2025 Procedure: ROBOTIC ASSISTED LAPAROSCOPY FULGURATION / EXCISION LESIONS; Surgeon: Chelita Jacskon MD; Location: [facility]; Service: Robotics - DaVinci; Laterality: N/A; RHINOPLASTY cheerleading, deviated septum and crush injury and had surgery/reconstruction SALPINGECTOMY Bilateral TONSILLECTOMY child TOTAL LAPAROSCOPIC HYSTERECTOMY SALPINGO OOPHORECTOMY Bilateral 08/20/2025 Procedure: TOTAL ROBOTIC HYSTERCETOMY BILATERAL SALPINGO-OOPHRECTOMY; Surgeon: Chelita Jackson MD; Location: [facility]; Service: Robotics - DaVinci; Laterality: Bilateral; TUBAL ABDOMINAL LIGATION 12/10/2024 UPPER GASTROINTESTINAL ENDOSCOPY 2009 Several GI bleed several scopes FAMILY HISTORY Family History Problem Relation Name Age of Onset Diabetes Mother Mom Osteoarthritis Mother Mom Fibromyalgia Mother Mom Seizures Mother Mom Hypothyroidism Mother Mom COPD Mother Mom Colon cancer Mother Mom Tumor in small intestine (carpet one?) surgery to remive Stomach cancer Mother Mom Tumor in small intestine (carpet one?) surgery to remove Hyperlipidemia Father Dad Hypertension Father Dad Colon cancer Father Dad Had a polyp that was almost cancer physician stated ???if he had waited another month would be colon cancer?? Lung cancer Maternal Grandmother Hyperlipidemia Maternal Grandmother Hypertension Maternal Grandmother COPD Maternal Grandmother Asthma Maternal Grandmother Hyperlipidemia Paternal Grandmother Hypertension Paternal Grandmother Diabetes Paternal Grandfather Pa Hyperlipidemia Paternal Grandfather Pa Hypertension Paternal Grandfather Pa Colon cancer Paternal Grandfather Pa SOCIAL HISTORY Social History Socioeconomic History Marital status: Spouse name: nolan Number of children: 1 Highest education level: High school graduate Tobacco Use Smoking status: Never Passive exposure: Never Smokeless tobacco: Never Vaping Use Vaping status: Never Used Substance and Sexual Activity Alcohol use: No Drug use: Never Sexual activity: Yes Partners: Male control/protection: Bilateral salpingectomy ALLERGIES Allergies Allergen Reactions Celecoxib Anaphylaxis Celebrex; tolerates ibuprofen, ketorolac Coconut (Cocos Nucifera) Anaphylaxis Pineapple Anaphylaxis Sulfa Antibiotics Anaphylaxis and Hives Latex Hives Latex gloves Bentyl [Dicyclomine Hcl] Other (See Comments) Side effect of eyes not adjusting and vision change Metoclopramide Other (See Comments) ERXTRAPYRMIDAL SIDE EFFECTS Twitchy tremors Nsaids GI Bleeding Sulfamethoxazole-Trimethoprim Hives PHYSICAL EXAM I have reviewed the triage vital signs and nursing notes. ED Triage Vitals [08/25/25 1627] Temp Heart Rate Resp BP SpO2 98.5 ??F (36.9 ??C) 79 16 128/87 99 % Temp src Heart Rate Source Patient Position BP Location FiO2 (%) Oral Monitor -- -- -- Physical Exam Vitals Normal. Constitutional Patient is obviously having discomfort and tearful. Neurological Normal. Psychiatric Normal. Head and Face Normal. Eyes Normal. Ears, Nose, Mouth, and Throat Normal. Neck Normal. Respiratory Breath sounds normal. Cardiovascular Heart sounds normal. Chest Normal. Gastrointestinal Abdomen is soft with tenderness to palpation of the lower abdomen, most pronounced in the right lower quadrant. Musculoskeletal Normal. Extremities Normal. Skin Incisions on the abdomen appear to be healing well with no erythema or sign of infection appreciated. LAB RESULTS Labs from Hospital Encounter 08/25/25 Comprehensive Metabolic Panel Specimen: Blood Result Value Ref Range Glucose 91 65 - 99 mg/dL BUN 8.7 6.0 - 20.0 mg/dL Creatinine 0.57 0.57 - 1.00 mg/dL Sodium 142 136 - 145 mmol/L Potassium 3.9 3.5 - 5.2 mmol/L Chloride 104 98 - 107 mmol/L CO2 27.6 22.0 - 29.0 mmol/L Calcium 9.3 8.6 - 10.5 mg/dL Total Protein 7.1 6.0 - 8.5 g/dL Albumin 4.2 3.5 - 5.2 g/dL ALT (SGPT) 14 1 - 33 U/L AST (SGOT) 19 1 - 32 U/L Alkaline Phosphatase 109 39 - 117 U/L Total Bilirubin <0.2 0.0 - 1.2 mg/dL Globulin 2.9 gm/dL A/G Ratio 1.4 g/dL BUN/Creatinine Ratio 15.3 7.0 - 25.0 Anion Gap 10.4 5.0 - 15.0 mmol/L eGFR 123.2 >60.0 mL/min/1.73 CBC Auto Differential Specimen: Blood Result Value Ref Range WBC 7.35 3.40 - 10.80 10*3/mm3 RBC 4.11 3.77 - 5.28 10*6/mm3 Hemoglobin 11.5 (L) 12.0 - 15.9 g/dL Hematocrit 35.4 34.0 - 46.6 % MCV 86.1 79.0 - 97.0 fL MCH 28.0 26.6 - 33.0 pg MCHC 32.5 31.5 - 35.7 g/dL RDW 13.2 12.3 - 15.4 % RDW-SD 41.3 37.0 - 54.0 fl MPV 8.9 6.0 - 12.0 fL Platelets 291 140 - 450 10*3/mm3 Neutrophil % 64.8 42.7 - 76.0 % Lymphocyte % 19.9 19.6 - 45.3 % Monocyte % 9.0 5.0 - 12.0 % Eosinophil % 4.8 0.3 - 6.2 % Basophil % 0.8 0.0 - 1.5 % Immature Grans % 0.7 (H) 0.0 - 0.5 % Neutrophils, Absolute 4.77 1.70 - 7.00 10*3/mm3 Lymphocytes, Absolute 1.46 0.70 - 3.10 10*3/mm3 Monocytes, Absolute 0.66 0.10 - 0.90 10*3/mm3 Eosinophils, Absolute 0.35 0.00 - 0.40 10*3/mm3 Basophils, Absolute 0.06 0.00 - 0.20 10*3/mm3 Immature Grans, Absolute 0.05 0.00 - 0.05 10*3/mm3 nRBC 0.0 0.0 - 0.2 /100 WBC Lactic Acid, Plasma Specimen: Blood Result Value Ref Range Lactate 0.7 0.5 - 2.0 mmol/L Urinalysis With Microscopic If Indicated (No Culture) - Urine, Clean Catch Specimen: Urine, Clean Catch Result Value Ref Range Color, UA Yellow Yellow, Straw Appearance, UA Cloudy (A) Clear pH, UA 6.5 5.0 - 8.0 Specific [place], UA 1.009 1.005 - 1.030 Glucose, UA Negative Negative Ketones, UA Negative Negative Bilirubin, UA Negative Negative Blood, UA Negative Negative Protein, UA Negative Negative Leuk Esterase, UA Negative Negative Nitrite, UA Negative Negative Urobilinogen, UA 0.2 E.U./dL 0.2 - 1.0 E.U./dL Urinalysis, Microscopic Only - Urine, Clean Catch Specimen: Urine, Clean Catch Result Value Ref Range RBC, UA 0-2 None Seen, 0-2 /HPF WBC, UA 0-2 None Seen, 0-2 /HPF Bacteria, UA None Seen None Seen /HPF Squamous Epithelial Cells, UA 0-2 None Seen, 0-2 /HPF Hyaline Casts, UA None Seen None Seen /LPF Methodology Automated Microscopy RADIOLOGY No ED radiology results for this encounter. ORDERS PLACED DURING THIS VISIT: Orders Placed This Encounter Procedures Comprehensive Metabolic Panel CBC Auto Differential Lactic Acid, Plasma Urinalysis With Microscopic If Indicated (No Culture) - Urine, Clean Catch Urinalysis, Microscopic Only - Urine, Clean Catch CBC & Differential MEDICATIONS GIVEN IN ER Medications HYDROmorphone (DILAUDID) injection 0.5 mg (0.5 mg Intravenous Given 08/25/251746) sodium chloride 0.9 % bolus 1,000 mL (0 mL Intravenous Stopped 08/25/25 190) ondansetron (ZOFRAN) injection 4 mg (4 mg Intravenous Given 08/25/25 172) oxyCODONE-acetaminophen (PERCOCET) 10-325 MG per tablet 1 tablet (1 tablet Oral Given 08/25/25 183) fentaNYL citrate (PF) (SUBLIMAZE) injection 25 mcg (25 mcg Intravenous Given 08/25/251928) PROCEDURES Procedures PROGRESS, DATA ANALYSIS, CONSULTS, AND MEDICAL DECISION MAKING All lab results, radiology reads, and EKGs have been independently reviewed by me. Medical Decision Making Problems Addressed: History of recent surgery: complicated acute illness or injury Lower abdominal pain: complicated acute illness or injury Amount and/or Complexity of Data Reviewed Labs: ordered. Risk Prescription drug management. Initial Assessment: Postoperative pain following hysterectomy, salpingectomy, and oophorectomy due to endometriosis. The patient has been experiencing severe pain since the surgery, which is different from the previous pain. A CT scan from [facility] on 08/20/2025 showed status post hysterectomy, pneumoperitoneum likelydue to recent surgery, and erythema in the bladder lumen likely consistent with a recent Corea catheter. No abnormal findings were appreciated. Lactate levels were slightly elevated. The patient ran out of oxycodone 10 mg today. There is a history of GI bleeding with NSAIDs and IV Toradol after a , which required a scope revealing 3 ulcers. Differential Diagnosis: Postoperative pain Severe pain since surgery. The plan is to administer pain medication, antiemetic, and IV fluids, and to avoid NSAIDs. Infection There are no signs of infection on physical exam. The plan is to monitor the response to treatment and inform the on-call physician. ED Course: Pain medication, antiemetic medication, and IV fluids were administered. Final Assessment: Postoperative pain managed with pain medication, antiemetic, and IV fluids. The CT scan showed no complications. Lactate levels were slightly elevated. There is a history of GI bleeding with NSAIDs and IV Toradol after a . Clinical Impression: Postoperative pain Disposition: Follow-Up Call and make an appointment with Dr. Jackson for the next available Wednesday. Patient Education: Avoid NSAIDs due to the history of GI bleeds. Inform the nurse if the initial dose of pain medication is insufficient. Laboratory Studies Lactate was slightly elevated. Imaging CT scan from [facility] on 08/20/2025 showed status post hysterectomy, pneumoperitoneum likely recentsurgery, erythema bladder lumen likely consistent with the recent Corea. No abnormal findings appreciated. ED Course as of 08/30/258 Sat Aug 25, [address] scan from [facility] on 1124 5 days ago impression status post hysterectomypneumoperitoneum likely related to recent surgery air within the bladder lumen likely consistent with the recent Corea during the procedure no abnormal findings appreciated [CP] ED Course User Index [CP] Kalin Morales, Admission was considered but after careful review of the patient's presentation, physical examination, diagnostic results, and response to treatment the patient appears appropriate for discharge withoutpatient follow-up. DIAGNOSIS Final diagnoses: Lower abdominal pain History of recent surgery DISPOSITION ED Disposition ED Disposition Discharge Condition Stable Comment -- If the treatment plan includes a limited course of a prescribed controlled substance, the risks including addiction, benefits, and alternatives were presented to the patient. Follow-up Information Schedule an appointment as soon as possible for a visit with Chelita Jackson MD. Specialty: Gynecology Contact information: [address] [facility] [address] [id number] Michaela Sousa, FERNANDO. Specialty: Internal Medicine Why: As needed Contact information: [address] [facility] [phone] [facility] EMERGENCY DEPARTMENT. Specialty: Emergency Medicine Why: If symptoms worsen Contact information: [address] [facility] [address] Your medication list START taking these medications Instructions Last Dose Given Next Dose Due naloxone 4 MG/0.1ML nasal spray Commonly known as: NARCAN Administer 1 spray into the nostril(s) as directed by provider As Needed for Opioid Reversal. Call 911. Don't prime. [place] in 1 nostril for overdose. Repeat in 2-3 minutes in other nostril if no or minimal breathing/responsiveness. oxyCODONE-acetaminophen 10-325 MG per tablet Commonly known as: PERCOCET Take 1 tablet by mouth Every 6 (Six) Hours As Needed for Severe Pain. CONTINUE taking these medications Instructions Last Dose Given Next Dose Due Co-Enzyme Q10 100 MG capsule Take 4 capsules by mouth. cyclobenzaprine 10 MG tablet Commonly known as: FLEXERIL Take 1 tablet by mouth 3 times a day. gabapentin 300 MG capsule Commonly known as: NEURONTIN Take 1 capsule by mouth 3 (Three) Times a Day. Gas Relief 80 MG chewable tablet Generic drug: simethicone Chew 1 tablet 4 (Four) Times a Day As Needed for Flatulence. ipratropium-albuterol 0.5-2.5 mg/3 ml nebulizer Commonly known as: DUO-NEB INHALE THE CONTENTS OF 1 VIAL VIA NEBULIZER EVERY 6 HOURS ondansetron ODT 4 MG disintegrating tablet Commonly known as: ZOFRAN-ODT DISSOLVE 2 TABLETS UNDER THE TONGUE EVERY 8 HOURS NEEDED FOR NAUSEA AND VOMITING pantoprazole 40 MG EC tablet Commonly known as: PROTONIX Take 1 tablet by mouth 2 (Two) Times a Day. polyethylene glycol 17 g packet Commonly known as: MIRALAX Take 17 g by mouth Daily. sodium phosphate 7-19 GM/118ML ADULT enema Insert 1 enema into the rectum Every 6 (Six) Hours As Needed (constipation). Stool Softener 100 MG capsule Generic drug: docusate sodium Take 1 capsule by mouth 2 (Two) Times a Day As Needed for Constipation. tiZANidine 4 MG tablet Commonly known as: ZANAFLEX take 1 TO 1 AND 1/2 TABLETS BY MOUTH TWICE DAILY Where to Get Your Medications These medications were sent to [facility] - [place], [place] - [address] - [phone] - [phone] [facility] [address] naloxone 4 MG/0.1ML nasal spray oxyCODONE-acetaminophen 10-325 MG per tablet Please note that portions of this note were completed with a voice recognition program. Note Disclaimer: At [facility], we believe that sharing information builds trust and better relationships. You are receiving this note because you recently visited [facility]. It is possible you will see health information before a provider has talked with you about it. This kind of information can be easy to misunderstand. To help you fully understand what it means for your health, we urge you to discuss this note with your provider. Kalin Morales DO 08/30/[id number] documented in this encounter Plan of Treatment Upcoming Encounters Date Type Department Care Team (Late st Contact Info) Description 10/31/2025 3:15 PM EST Office Visit [facility] [address] [phone] Aminata Nassar MD [address] [address] documented as of this encounter Procedures Procedure Name Priority Date/Time Associated Diagnosis Comments CBC WITH AUTO DIFFERENTIAL STAT 08/25/2025 5:25 PM EST CBC AND DIFFERENTIAL STAT 08/25/2025 5:25 PM EST LACTIC ACID, PLASMA STAT 08/25/2025 5 :25 PM EST COMPREHENSIVE METABOLIC PANEL STAT 08/25/2025 5:25 PM EST URINALYSIS, MICROSCOPIC ONLY STAT 08/25/2025 5:20 PM EST URINALYSIS W/ MICROSCOPIC IF INDICATED (NO CULTURE) STAT 08/25/2025 5:20 PM EST documented in this encounter Results * Lactic Acid, Plasma (08/25/2025 5:25 PM EST) Lactate 0.7 0.5 - 2.0 mmol/L 08/25/2025 6:16 PM EST [facility] Comment:Falsely depressed re sults may occur on samples drawn from patients receiving N-Acetylcysteine (NAC) or Metamizole. Blood Venipuncture / Unknown 08/25/2025 5:25 PM EST 08/25/2025 5:48 PM EST us Kalin Morales DO LAB BLOOD ORDERABLES Final Resul t [facility]
[address] [place] [address], * (ABNORMAL) CBC Auto Differential (08/25/2025 5:25 PM EST) Pathologist [facility] [place] WBC 7.35 3.40 - 10.80 10*3/mm3 08/25/2025 5:43 PM EST [facility] RBC 4.11 3.77 - 5.28 10*6/mm3 08/25/2025 5:43 PM EST [facility] Hemoglobin 11.5(L) 12.0 - 15.9 g/dL 08/25/2025 5:43 PM EST [facility] Hematocrit 35.4 34.0 - 46.6 % 08/25/2025 5:43 PM EST [facility] MCV 86.1 79.0 - 97.0 fL 08/25/2025 5:43 PM EST [facility] MCH 28.0 26.6 - 33.0 pg 08/25/2025 5:43 PM EST [facility] MCHC 32.5 31.5 - 35.7 g/dL 08/25/2025 5:43 PM EST [facility] RDW 13.2 12.3 - 15.4 % 08/25/2025 5:43 PM EST [facility] RDW-SD 41.3 37.0 - 54.0 fl 08/25/2025 5:43 PM EST [facility] MPV 8.9 6.0 - 12.0 fL 08/25/2025 5:43 PM [facility] Platelets 291 140 - 450 10*3/mm3 08/25/2025 5:43 PM [facility] Neutrophil % 64.8 42.7 - 76.0 % 08/25/2025 5:43 PM [facility] Lymphocyte % 19.9 19.6 - 45.3 % 08/25/2025 5:43 PM [facility] Monocyte % 9.0 5.0 - 12.0 % 08/25/2025 5:43 PM [facility] Eosinophil % 4.8 0.3 - 6.2 % 08/25/2025 5:43 PM [facility] Basophil % 0.8 0.0 - 1.5 % 08/25/2025 5:43 PM [facility] Immature Grans % 0.7(H) 0.0 - 0.5 % 08/25/2025 5:43 PM [facility] Neutrophils, Absolute 4.77 1.70 - 7.00 10*3/mm3 08/25/2025 5:43 PM [facility] Lymphocytes, Absolute 1.46 0.70 - 3.10 10*3/mm3 08/25/2025 5:43 PM [facility] Monocytes, Absolute 0.66 0.10 - 0.90 10*3/mm3 08/25/2025 5:43 PM [facility] Eosinophils, Absolute 0.35 0.00 - 0.40 10*3/mm3 08/25/2025 5:43 PM [facility] Basophils, Absolute 0.06 0.00 - 0.20 10*3/mm3 08/25/2025 5:43 PM [facility] Immature Grans, Absolute 0.05 0.00 - 0.05 10*3/mm3 08/25/2025 5:43 PM [facility] nRBC 0.0 0.0 - 0.2 /100 WBC 08/25/2025 5:43 PM [facility] Blood Venipuncture / Unknown 08/25/2025 5:25 PM EST 08/25/2025 5:40 PM EST us Kalin Morales LAB BLOOD ORDERABLES Final Resul t [facility]
[address] [place] [address], * Comprehensive Metabolic Panel (08/25/2025 5:25 PM EST) [facility] Glucose 91 65 - 99 mg/dL 08/25/2025 6:16 PM EST [facility] BUN 8.7 6.0 - 20.0 mg/dL 08/25/2025 6:16 PM EST [facility] Creatinine 0.57 0.57 - 1.00 mg/dL 08/25/2025 6:16 PM EST [facility] Sodium 142 136 - 145 mmol/L 08/25/2025 6:16 PM EST [facility] Potassium 3.9 3.5 - 5.2 mmol/L 08/25/2025 6:16 PM EST [facility] Chloride 104 98 - 107 mmol/L 08/25/2025 6:16 PM EST [facility] CO2 27.6 22.0 - 29.0 mmol/L 08/25/2025 6:16 PM EST [facility] Calcium 9.3 8.6 - 10.5 mg/dL 08/25/2025 6:16 PM EST [facility] Total Protein 7.1 6.0 - 8.5 g/dL 08/25/2025 6:16 PM EST [facility] Albumin 4.2 3.5 - 5.2 g/dL 08/25/2025 6:16 PM EST [facility] ALT (SGPT) 14 1 - 33 U/L 08/25/2025 6:16 PM [facility] AST (SGOT) 19 1 - 32 U/L 08/25/2025 6:16 PM EST [facility] Alkaline Phosphatase 109 39 - 117 U/L 08/25/2025 6:16 PM EST [facility] Total Bilirubin <0.2 0.0 - 1.2 mg/dL 08/25/2025 6:16 PM EST [facility] Globulin 2.9 gm/dL 08/25/2025 6:16 PM EST [facility] Comment:Calculated Result A/G Ratio 1.4 g/dL 08/25/2025 6:16 PM EST [facility] BUN/Creatinine Ratio 15.3 7.0 - 25.0 08/25/2025 6:16 PM EST [facility] Anion Gap 10.4 5.0 - 15.0 mmol/L 08/25/2025 6:16 PM EST [facility] eGFR 123.2 >60.0 mL/min/1.7 3 08/25/2025 6:16 PM EST [facility] Blood Venipuncture / Unknown 08/25/2025 5:25 PM EST 08/25/2025 5:48 PM EST [facility] - 08/25/2025 6:16 PM EST GFR Categories in Chronic Kidney Disease (CKD) [...] not include race as a factor us Kalin Morales DO LAB BLOOD ORDERABLES Final Resul t [facility]
[address] [place] [address], * Urinalysis, Microscopic Only - Urine, Clean Catch (08/25/2025 5:20 PM EST) RBC, UA 0-2 None Seen, 0-2 /HPF 08/25/2025 5:48 PM EST [facility] WBC, UA 0-2 None Seen, 0-2 /HPF 08/25/2025 5:48 PM EST [facility] Bacteria, UA None Seen None Seen /HPF 08/25/2025 5:48 PM EST [facility] Squamous Epithelial Cells, UA 0-2 None Seen, 0-2 /HPF 08/25/2025 5:48 PM EST [facility] Hyaline Casts, UA None Seen None Seen /LPF 08/25/2025 5:48 PM [facility] Methodology Automated Microscopy 08/25/2025 5:48 PM [facility] Urine Urine specimen obtained by clean catch procedure / Unknown Collection / Unknown 08/25/2025 5:20 PM EST 08/25/2025 5:40 PM EST Kalin Morales DO URINE ORDERABLES Final Result [facility]
[address] [place] [address], * (ABNORMAL) Urinalysis With Microscopic If Indicated (No Culture) - Urine, Clean Catch (08/25/2025 5:20 PM EST) Color, UA Yellow Yellow, Straw 08/25/2025 5:48 PM [facility] Appearance, UA Cloudy(A) Clear 08/25/2025 5:48 PM EST [facility] pH, UA 6.5 5.0 - 8.0 08/25/2025 5:48 PM [facility] Specific [place], UA 1.009 1.005 - 1.030 08/25/2025 5:48 PM [facility] Glucose, UA Negative Negative 08/25/2025 5:48 PM [facility] Ketones, UA Negative Negative 08/25/2025 5:48 PM EST [facility] Bilirubin, UA Negative Negative 08/25/2025 5:48 PM EST [facility] Blood, UA Negative Negative 08/25/2025 5:48 PM EST [facility] Protein, UA Negative Negative 08/25/2025 5:48 PM EST [facility] Leuk Esterase, UA Negative Negative 08/25/2025 5:48 PM EST [facility] Nitrite, UA Negative Negative 08/25/2025 5:48 PM EST [facility] Urobilinogen, UA 0.2 E.U./dL 0.2 - 1.0 E.U./dL 08/25/2025 5:48 PM EST [facility] Urine Urine specimen obtained by clean catch procedure / Unknown Collection / Unknown 08/25/2025 5:20 PM EST 08/25/2025 5:40 PM EST Kalin Morales DO URINE ORDERABLES Final Result Performing Organization Address City/State/[facility] Co de Phone Number [facility]
[address] [place] [address], documented in this encounter Visit Diagnoses Diagnosis Lower abdominal pain- Primary Abdominal pain, other specified site History of recent surgery documented in this encounter Administered Medications Inactive Administered Medications - up to 3 most recent administrations Medication Order MAR Action Action Date Dose Rate Site fentaNYL citrate (PF) (SUBLIMAZE) injection 25 mcg 25 mcg, Intravenous, Once, On 08/25/25 at 1936, For 1 dose, Use filter needle to withdraw dose from ampule. Based on patient request - if ordered for moderate or severe pain, provider allows for administration of a medication prescribed for a lower pain scale. If given for pain, use the following pain scale: Mild Pain = Pain Score of 1-3, CPOT 1-2 Moderate Pain = Pain Score of 4-6, CPOT 3-4 Severe Pain = Pain Score of 7-10, CPOT 5-8 Given 08/25/2025 7:29 PM EST 25 mcg HYDROmorphone (DILAUDID) injection 0.5 mg 0.5 mg, Intravenous, Every 10 Minutes PRN, Severe Pain, Starting on 08/25/25 at 1701, For 2 doses, If given for pain, use the following pain scale: Mild Pain = Pain Score of 1-3, CPOT 1-2 Moderate Pain = Pain Score of 4-6, CPOT 3-4 Severe Pain = Pain Score of 7-10, CPOT 5-8 Given 08/25/2025 5:47 PM EST 0.5 mg Given 08/25/2025 5:29 PM EST 0.5 mg ondansetron (ZOFRAN) injection 4 mg 4 mg, Intravenous, Once, On 08/25/25 at 1718, For 1 dose, If multiple N/V medications ordered, use in the following order: Ondansetron, Prochlorperazine, Promethazine. Use PO unless patient refuses or patient unable to swallow. Given 08/25/2025 5:29 PM EST 4 mg oxyCODONE-acetaminophen (PERCOCET) 10-325 MG per tablet 1 tablet 1 tablet, Oral, Once, On 08/25/25 at 1847, For 1 dose, Based on patient request [...] Pain Score of 7-10, CPOT 5-8 Given 08/25/2025 6:37 PM EST 1 tablet sodium chloride 0.9 % bolus 1,000 mL 1,000 mL, Intravenous, at 2,000 mL/hr, Administer over 0.5 Hours, Once, On 08/25/25 at 1718, For 1 dose New Bag 08/25/2025 5:29 PM EST 1,000 mL 2000 mL/hr sodium chloride 0.9 % flush 10 mL 10 mL, Intravenous, As Needed, Line Care, Starting on 08/25/25 at 1701 documented in this encounter Active and Recently Administered Medications Times are shown in EST. Scheduled Medication Order 08/23/2025 08/24/2025 08/25/2025 fentaNYL citrate (PF) (SUBLIMAZE) injection 25 mcg (COMPLETED) 25 mcg, Intravenous, Once, On 08/25/25 at 1936, For 1 dose, Use filter needle to withdraw dose from ampule. Based on patient request - if ordered for moderate or severe pain, provider allows for administration of a medication prescribed for a lower pain scale. If given for pain, use the following pain scale: Mild Pain = Pain Score of 1-3, CPOT 1-2 Moderate Pain = Pain Score of 4-6, CPOT 3-4 Severe Pain = Pain Score of 7-10, CPOT 5-8 1929 (Given - Provid er: Alejandra Chan, DEEPAK) ondansetron (ZOFRAN) injection 4 mg (COMPLETED) 4 mg, Intravenous, Once, On 08/25/25 at 1718, For 1 dose, If multiple N/V medications ordered, use in the following order: Ondansetron, Prochlorperazine, Promethazine. Use PO unless patient refuses or patient unable to swallow. 172 (Given - Provid er: Sarah Al, Briquette Operator) oxyCODONE-acetaminophen (PERCOCET) 10-325 MG per tablet 1 tablet (COMPLETED) 1 tablet, Oral, Once, On 08/25/25 at 1847, For 1 dose, Based on patient request [...] = Pain Score of 7-10, CPOT 5-8 1837 (Given - Provid er: Chelita Bell RN) sodium chloride 0.9 % bolus 1,000 mL (COMPLETED) 1,000 mL, Intravenous, at 2,000 mL/hr, Administer over 0.5 Hours, Once, On 08/25/25 at 1718, For 1 dose 172 (New Bag - Prov ider: Sarah Al, Briquette Operator)190 (Stopped - Provider: Alejandra Chan RN) PRN Medication Order 08/23/2025 08/24/2025 08/25/2025 HYDROmorphone (DILAUDID) injection 0.5 mg (COMPLETED) 0.5 mg, Intravenous, Every 10 Minutes PRN, Severe Pain, Starting on 08/25/25 at 1701, For 2 doses, If given for pain, use the following pain scale: Mild Pain = Pain Score of 1-3, CPOT 1-2 Moderate Pain = Pain Score of 4-6, CPOT 3-4 Severe Pain = Pain Score of 7-10, CPOT 5-8 1729 (Given - Provid er: Sarah Al, Briquette Operator)1747 (Given - Provider: Alejandra Chan, DEEPAK) sodium chloride 0.9 % flush 10 mL(Linked Group 1) 10 mL, Intravenous, As Needed, Line Care, Starting on 08/25/25 at 1701 Linked Groups Order Group 1: Insert Peripheral IV (CANCELED) STAT, Once, On 08/25/25 at 1702, For 1 occurrence And sodium chloride 0.9 % flush 10 mLJump to med 10 mL, Intravenous, As Needed, Line Care, Starting on 08/25/25 at 1701 documented in this encounter Additional Health Concerns Infection Onset Date Last Indicated Resolved Time COVID (History) Comment: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 The last day before reporting a new confirmed COVID-19 would be 12/08/20. -Alida Banda RN 09/09/2020 12/25/2020 documented as of this encounter Care Teams Bee Rancher Relationship Specialty Start Date End Date Michaela Sousa APRN [facility] [place] [address] PCP - General Internal Medicine 09/04/24 documented as of this encounter
--- OUTSIDE RECORDS SUMMARY | 2025-08-28 08:30 | XMS_ITS ---
Author Organization [facility] Address [address] [place] [address] Care Team Providers Care Computer Clerk Name Role Phone Chelita Jackson Unavailable [phone] Allergies Allergen (clinical drug ingredient) Drug/Non Drug [...] Results Component Value Reference Range Flag Notes Urine Dip - Analyzer Read Reviewed date:08/30/2025 09:35:24 AM Interpretation:Normal Performing Lab: Notes/Report: Bilirubin Negative Negative Blood Small + Negative A Glucose Negative Negative Ketones Negative Negative Leukocytes Negative Negative Nitrite Negative Negative pH 7.0 4.5, 5.0, 6.0, 6 .5, 7.0, 7.5, 8.0 Protein Negative Negative Specific Concrete 1.020 1.005, 1.010, 1 .015, 1.020, 1.025, 1.030, 1.035 Urobilinogen 0.2 0.2, 1 REASON FOR VISIT post op pain- wanted to be seen. Medications Medication SIG (Take, Route, Frequency, Duration) Notes Start Date End Date Status oxyCODONE HCl 10 MG Tablet 1 tablet po e very 4 hours; Duration: 2 days 08/28/2025 Active Acetaminophen Extra Strength 500 MG Tablet 2 tablet po every 6 hours; Duration: 14 days Take on schedule for 14 days to prevent post operative pain, then as needed. 08/13/2025 Active Estradiol 0.1 MG/24HR Patch Twice Weekly 1 patch to skin Transdermal Two times a Week; Duration: 84 days 08/13/2025 Active Gabapentin 12/12/2018 Active Iron Active Pantoprazole Sodium Active Pepcid Active Polyethylene Glycol 3350 17 GM/SCOOP Powder 1 scoop po daily; Duration: 14 days Use daily for 14 days to prevent post operative constipation. May hold for loose stool. May double dose for severe constipation. 08/13/2025 Active Vitamin D Active oxyCODONE HCl 5 MG Tablet 1 tablet po every 6 hours; Duration: 3 days Take as needed for severe post operative pain. 08/13/2025 Active Lexapro Active Neurontin Active Ondansetron 12/13/2018 Active Ondansetron HCl 4 MG Tablet 1 tablet po every 8 hours; Duration: 3 days As needed for post operative nausea 08/13/2025 Active Social History Tobacco Use: Social [...] Domestic violence: No Do you have any amish, m oral, or cultural beliefs or customs that your provider should know about? No Would you object to blood products in the event of an emergency? No Vital Signs Blood pressure systolic 118 mm Hg 08/28/20 25 Blood pressure diastolic 78 mm Hg 025 Height 69 in 08/28/2025 Weight 164.2 lbs 08/28/2025 BMI 24.25 kg/m2 08/28/2025 Encounters Encounter Location Date Provider Diagnosis [facility] [address] [place] [address] 08/28/2025 Chelita Jackson Post-operative pain G89.18 Assessments Encounter Date Diagnosis (ICD Code) Assessment Notes Treatment Notes Treatment Clinical Notes Section Notes 08/28/2025 Post-operative pain (ICD-10 - G89.18) 08/28/2025 Other No physical exam findings suggestive of infection or visceral injury. Further evaluation with labs as above. Precautions reviewed. Plan Of Treatment Medication Medication Name Sig Start Date Stop Date Notes oxyCODONE HCl 10 MG Tablet 1 tablet po e very 4 hours; Duration: 2 days 08/28/2025 Next Appt Details Follow Up: 2 Weeks, Reason: Provider Name:Chelita Jackson , 10/03/2025 04:00:00 PM, [address], [address], [place], [address], History and Physical Notes * HPI (History of Present Illness) Category Sub-Category Detail Notes Category Not es TRANSPORT AIDE Maia Kovacs, a 35-year-old female, came in for an acute visit due to persistent pelvic pain after her recent surgery. She described the pain as deep and localized to the area of surgical excision and stitches, noting it was more severe than expected and has limited her mobility, causing her to spend more time in bed. She has tried using medication and a pillow for comfort. She denies nausea, vomiting, fever, chills, diarrhea or constipation and dysuria. She has scant vaginal bleeding. Stools are loose with miralax use. She is 2 weeks s/p TRH, BSO with MARY including take down of round ligament plication sutures in right and left lower abdomen. Examination Category Sub-Category Detail Notes Category Not es Genitourinary Examination - Female VAGINA: Normal appearance for age, n o significant discharge, lesions, or masses present CERVIX: Surgically absent UTERUS: Surgically absent BLADDER: Normal and nontender to palpation ADNEXA: No masses or tendern ess bilaterally EXTERNAL GENITALIA: Normal appearance fo r age, no erythema or skin lesions present URETHRA/URETHRAL MEATUS: Normal in appea julio nontender without mass effect PERINEUM: Normal in appearance without lesion General Examination GENERAL APPEARANCE: Well dev eloped, well nourished, alert in no acute distress NEURO/PSYCH: Oriented to person, place, and time. Mood pleasant, normal affect CARDIOPULMONARY: Respiratory effort i s even and unlabored ABDOMINAL/GASTROINTESTINAL: Abdomen nont asiya, no masses palpated Incision Check Incision(s) Clean dry intact , vaginal cuff intact without evidence of infection or hematoma Manual Lathe Operator Manual Lathe Operator CHRISTIAN DYKES Progress Notes * Maia KOVACS JDOB:[birth year] (35 yo F)Acc No.[id number]:08/28/2025 Progress Note Patient: Maia García Provider: Pavel Jackson MD :1990 A ge:35 Y S ex:Female Date:08/28/2025 Address:[address] [place] [address], [place] [address] Subjective: * Chief Complaints: * P ost op pain- wanted to be seen. * HPI: G YN: Maia Kovacs, a 35-year-old female, came in for an acute visit due to persistent pelvic pain after her recent surgery. She described the pain as deep and localized to the area of surgical excision and stitches, noting it was more severe than expected and has limited her mobility, causing her to spend more time in bed. She has tried using medication and a pillow for comfort. She denies nausea, vomiting, fever, chills, diarrhea or constipation and dysuria. She has scant vaginal bleeding. Stools are loose with miralax use. She is 2 weeks s/p TRH, BSO with MARY including take down of round ligament plication sutures in right and left lower abdomen. 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 Do you have any amish, moral, or cultural beliefs or customs that [...] Take as needed for severe post operative pain.oxyCODONE HCl 10 MG Tablet 1 tablet po every 4 hours Pantoprazole Sodium Pepcid Polyethylene Glycol 3350 17 GM/SCOOP Powder 1 scoop po daily Use daily for 14 days to prevent post operative constipation. May hold for loose stool. May double dose for severe constipation.Vitamin D Medication List reviewed and reconciled with the patientTaking Acetaminophen Extra Strength 500 MG Tablet 2 [...] as needed for severe post operative pain.Taking oxyCODONE HCl 10 MG Tablet 1 tablet po every 4 hours Taking Pantoprazole Sodium Taking Pepcid Taking Polyethylene Glycol 3350 17 GM/SCOOP Powder 1 scoop po daily Use daily for 14 days to prevent post operative constipation. May hold for loose stool. May double dose for severe constipation.Taking Vitamin D Medication List reviewed and reconciled with the patient * Allergies: M edications: Adhesive Tape: Unspecified - AllergyCELEBREX (CELECOXIB CAPS): Unspecified - Allergy - Onset Date 2625-75-25IFKCM EXAM GLOVES (DISPOSABLE GLOVES): Unspecified - Allergy - Onset Date 4008-04-95Rzfa: Coconut: Unspecified - AllergyNSAIDS: Unspecified - Allergy - Onset Date [id number]: Unspecified - Allergy - Onset Date 3853-84-03Aasc: Pineapple: Unspecified - AllergySULFAMETHOXAZOLE-TRIMETHOPRIM: Unspecified - Allergy - Onset Date 1259-93-73gzwTmdamensa Verified. Objective: * Vitals: B P:118/78mm Hg, Ht: 69 in, Wt:164.2lbs, BMI:24.25Index. * Examination: G eneral Examination: GENERAL APPEARANCE: W ell developed, well nourished, alert in no acute distress. NEURO/PSYCH: O riented to person, place, and time. Mood pleasant, normal affect. CARDIOPULMONARY: R espiratory effort is even and unlabored.? ABDOMINAL/GASTROINTESTINAL: A bdomen nontender, no masses palpated. I ncision Check: Incision(s) C lean dry intact, vaginal cuff intact without evidence of infection or hematoma. G enitourinary Examination - Female: EXTERNAL GENITALIA: N ormal appearance for age, no erythema or skin lesions present. URETHRA/URETHRAL MEATUS: N ormal in appearance, nontender without mass effect. BLADDER: N ormal and nontender to palpation. VAGINA: N ormal appearance for age, no significant discharge, lesions, or masses present. CERVIX: S urgically absent. UTERUS: S urgically absent. ADNEXA: N o masses or tenderness bilaterally. PERINEUM: N ormal in appearance without lesion. ? C haperone: Nirali ALEXANDER LPN. Assessment: * Assessment: 1. P ost-operative pain - G89.18 (Primary) Plan: * Treatment: Value Reference Range G lucose Negative Negative - * B ilirubin Negative Negative - * K etones Negative Negative - * S pecific Concrete 1.020 1.005, 1.010, 1.015, 1.020, 1.025, 1.030, 1.035 - * B lood Small + A Negative - * p H 7.0 4.5, 5.0, 6.0, 6.5, 7.0, 7.5, 8.0 - * P rotein Negative Negative - * U robilinogen 0.2 0.2, 1 - * N itrite Negative Negative - * L eukocytes Negative Negative - * Chelita Jackson 08/30/2025 0 9:34:58 AM EST > Small blood appropriate for post op state 2.?Others? Clinical Notes: No physical exam findings suggestive of infection or visceral injury.? Further evaluation with labs as above.? Precautions reviewed.??? * Procedure Codes: 8 1003 URINALYSIS, AUTO, W/O [id number] Pelvic examination [List separately in addition to code for primary procedure] * Follow Up: 2 Weeks Billing Information: * Visit Code: 15617 Office/Outpatient visit, est patient. * Procedure Codes: 80594 URINALYSIS, AUTO, W/O SCOPE. 94209 Pelvic examination [List separately in addition to code for primary procedure]. * Sign off status: Completed Visit Status: C HK (Check Out) true * Provider: Pavel Jackson MD Date: 1 10/29/2024 Generated for Kay sarkar/Haydee/Ramositting on: 11/24/2024 03:57 PM EST
--- OUTSIDE RECORDS SUMMARY | 2025-08-28 13:55 | XMS_ITS | Encounter Summary ---
Author Organization [facility] yste Address [address] [place] [address] Care Team Providers Care Right Of Way Supervisor Name Role Phone Michaela Sousa APRN Primary Care Provider + [phone] Encounter Details Date Type Department Care Team (Late st Contact Info) Description 08/28/2025 1:55 PM EST Lab [facility] [address] [place] [phone] Post-op pain Social History Tobacco Use Types Packs/Day Years Used Date Smoking Tobacco: Never Passive Smoke Exposure: Never Smokeless Tobacco: Never Alcohol Use Standard Drinks/Week Comments No 0 (1 standard drink = 0.6 oz pur e alcohol) [facility] Utilities Answer Date Recorded In the past 12 months has [employer] electric, gas, oil, or water company threatened [...] Date Recorded Retired Total Score 0 05/07/2021 [facility] Story of Occupat ional Health - Occupational Stress [...] things needed for daily living? No 12/10/2024 [place] Depression Scale Answer Date Recorded [place] Depression Scale Total 2 12/22/2024 The thought [...] GED or equivalent No 08/13/2025 Preferred Language Belizean 08/13/2025 PHQ-2 Answer Date Recorded Patient Health [...] [facility] [address] [address] Aminata Nassar MD [address] [address] documented as of this encounter Procedures Procedure [...] 10.80 10*3/mm3 08/28/2025 7:00 PM [facility] RBC 4.20 3.77 - 5.28 10*6/mm3 08/28/2025 7:00 PM [facility] Hemoglobin 11.9(L) 12.0 - 15.9 g/dL 08/28/2025 7:00 PM [facility] Hematocrit 37.0 34.0 - 46.6 % 08/28/2025 7:00 PM [facility] MCV 88.1 79.0 - 97.0 fL 08/28/2025 7:00 PM [facility] MCH 28.3 26.6 - 33.0 pg 08/28/2025 7:00 PM [facility] MCHC 32.2 31.5 - 35.7 g/dL 08/28/2025 7:00 PM [facility] RDW 12.6 12.3 - 15.4 % 08/28/2025 7:00 PM [facility] RDW-SD 40.5 37.0 - 54.0 fl 08/28/2025 7:00 PM [facility] MPV 9.1 6.0 - 12.0 fL 08/28/2025 7:00 PM [facility] Platelets 320 140 - 450 10*3/mm3 08/28/2025 7:00 PM [facility] Neutrophil % 77.1(H) 42.7 - 76.0 % 08/28/2025 7:00 PM [facility] Lymphocyte % 12.1(L) 19.6 - 45.3 % 08/28/2025 7:00 PM [facility] Monocyte % 6.5 5.0 - 12.0 % 08/28/2025 7:00 PM [facility] Eosinophil % 3.2 0.3 - 6.2 % 08/28/2025 7:00 PM [facility] Basophil % 0.7 0.0 - 1.5 % 08/28/2025 7:00 PM [facility] Immature Grans % 0.4 0.0 - 0.5 % 08/28/2025 7:00 PM [facility] Neutrophils, Absolute 9.42(H) 1.70 - 7.00 10*3/mm3 08/28/2025 7:00 PM [facility] Lymphocytes, Absolute 1.48 0.70 - 3.10 10*3/mm3 08/28/2025 7:00 PM [facility] Monocytes, Absolute 0.79 0.10 - 0.90 10*3/mm3 08/28/2025 7:00 PM [facility] Eosinophils, Absolute 0.39 0.00 - 0.40 10*3/mm3 08/28/2025 7:00 PM [facility] Basophils, Absolute 0.08 0.00 - 0.20 10*3/mm3 08/28/2025 7:00 PM [facility] Immature Grans, Absolute 0.05 0.00 - 0.05 10*3/mm3 08/28/2025 7:00 PM [facility] nRBC 0.0 0.0 - 0.2 /100 WBC 08/28/2025 7:00 PM [facility] Blood Venipuncture / Unknown 08/28/2025 1:36 PM EST 08/28/2025 1:36 PM EST us Chelita Jackson MD LAB BLOOD ORDERABLES Final R esult [facility]
[address] [place] [address], * (ABNORMAL) Basic Metabolic Panel (08/28/2025 1:36 PM EST) Pathologist [facility] Glucose 92 65 - 99 mg/dL 08/28/2025 8:02 PM [facility] BUN 8.0 6.0 - 20.0 mg/dL 08/28/2025 8:02 PM [facility] Creatinine 0.70 0.57 - 1.00 mg/dL 08/28/2025 8:02 PM [facility] Sodium 136 136 - 145 mmol/L 08/28/2025 8:02 PM [facility] Potassium 3.9 3.5 - 5.2 mmol/L 08/28/2025 8:02 PM [facility] Chloride 100 98 - 107 mmol/L 08/28/2025 8:02 PM [facility] CO2 21.7(L) 22.0 - 29.0 mmol/L 08/28/2025 8:02 PM [facility] Calcium 9.3 8.6 - 10.5 mg/dL 08/28/2025 8:02 PM [facility] BUN/Creatinine Ratio 11.4 7.0 - 25.0 08/28/2025 8:02 PM [facility] Anion Gap 14.3 5.0 - 15.0 mmol/L 08/28/2025 8:02 PM [facility] eGFR 117.3 >60.0 mL/min/1.7 3 08/28/2025 8:02 PM [facility] Blood Venipuncture / Unknown 08/28/2025 1:36 PM EST 08/28/2025 1:36 PM [facility] - 08/28/2025 8:02 PM EST GFR [...] MD LAB BLOOD ORDERABLES Final R esult [facility]
[address] [place] [address], documented in this encounter Visit Diagnoses Diagnosis Post-op pain Other acute postoperative pain documented in this encounter Additional Health Concerns Infection Onset Date Last Indicated Resolved Time COVID (History) Comment:Per regional topographical surveyor for [facility], 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 The last day before reporting a new confirmed COVID-19 would be 12/08/20. -Alida Banda RN 09/09/2020 12/25/2020 documented as of this encounter Care Teams Right Of Way Supervisor Relationship Specialty Start Date End Date Michaela Sousa APRN [address] [address] PCP - General Internal Medicine 09/04/24 documented as of this encounter
--- OUTSIDE RECORDS SUMMARY | 2025-09-01 13:42 | XMS_ITS ---
Author Organization [facility] Address [address] [place] [address] Care Team Providers Care Furniture Removalist'S Assistant Name Role Phone Chelita Jackson Unavailable [phone] Georgie Preez Unavailable [phone] Medications Medication SIG (Take, Route, Frequency, Duration) Notes Start Date End Date Status oxyCODONE HCl 10 MG Tablet 1 tablet po e very 4 hours; Duration: 2 days 09/01/2025 Active Social History Sex Assigned At : Social History Observation Description Sex Assigned At Female Encounters Encounter Location Date Provider Diagnosis [facility] [address] [facility] [address] [place] [address] 09/01/2025 Georgie Perez Post-operative pain G89.18 Assessments Encounter Date Diagnosis (ICD Code) Assessment Notes Treatment Notes Treatment Clinical Notes Section Notes 09/01/2025 Post-operative pain (ICD-10 - G89.18) Plan Of Treatment Medication Medication Name Sig Start Date Stop Date Notes oxyCODONE HCl 10 MG Tablet 1 tablet po e very 4 hours; Duration: 2 days 09/01/2025 Next Appt Details Provider Name:Chelita Jackson , 10/03/2025 04:00:00 PM, [address], [address], [place], [address], Progress Notes * Maia KOVACSDOB:[birth year] (35 yo F)Acc No.[id number]:09/01/2025 Patient: Maia LUIS :1990 A ge:35 Y S ex:Female Address:[address] [place] [address], [address] * Refills Refill oxyCODONE HCl Tablet, 10 MG, po, 12 Tablet, 1 tablet, every 4 hours, 2 days, Refills=0 Assessment: * Assessment: 1. P ost-operative pain - G89.18 Plan: * Treatment: * true * Date: Generated for Kay sarkar/Haydee/Wally on: 11/24/2024 03:58 PM EST
--- OUTSIDE RECORDS SUMMARY | 2025-09-03 09:00 | XMS_ITS ---
Author Organization [facility] Address [address] [facility] [address] [place] [address] Care Team Providers Care Lead Auditor Name Role Phone Chelita Jackson Unavailable [phone] Allergies Allergen (clinical drug ingredient) Drug/Non Drug [...] Unspecified Allergy 2020 Active REASON FOR VISIT po pain Medications Medication SIG (Take, Route, Frequency, Duration) Notes Start Date End Date Status Gabapentin 12/12/2018 Active oxyCODONE HCl 10 MG Tablet 1 tablet po e very 4 hours; Duration: 2 days 09/01/2025 Active Iron Active Acetaminophen Extra Strength 500 MG Tablet [...] severe constipation. 08/13/2025 Active Vitamin D Active Pantoprazole Sodium Active Pepcid Active oxyCODONE HCl 5 MG Tablet 1 tablet po every 6 hours; Duration: 3 days Take as needed for severe post operative pain. 08/13/2025 Active Ondansetron 12/13/2018 Active Lexapro Active Neurontin Active Ondansetron HCl 4 MG Tablet 1 [...] Domestic violence: No Do you have any hinduism, m oral, or cultural beliefs or customs that your provider should know about? No Would you object to blood products in the event of an emergency? No Encounters Encounter Location Date Provider Diagnosis [facility] [address] [facility] [address] [place] [address] 09/03/2025 Chelita Jackson Plan Of Treatment Next Appt Details Provider Name:Chelita Renetta , 10/03/2025 04:00:00 PM, [address], [address], [place], [address], Progress Notes * Maia KOVACSDOB:[birth year] (35 yo F)Acc No.[id number]:09/03/2025 Progress Note Patient: Maia García Provider: Pavel Jackson MD :1990 A ge:35 Y S ex:Female Date:09/03/2025 Address:[address] [place] [address], [id number] Subjective: * Chief Complaints: * P o pain * Medical History: Anemia Anxiety Blood Transfusion Depression GERD/Acid Reflux Gallbladder Disease Kidney Stones Migraine Headaches Endometriosis * Community Outreach Advocate History: P ap Smear History: D ate [...] robotic laparoscopy fulguration/ excision of lesions 08/20/25 * Hospitalization/Major Diagno stic Procedure: labor and delivery * Family History: Acid Reflux , Anxiety , Asthma , [...] omestic violence: No. Do you have any hinduism, moral, or cultural beliefs or customs that your provider should know about?: No. Would you object to blood products in the event of an emergency?: No. D rug/Alcohol: A ANEGLA-C (Standard) D id you have a drink containing alcohol in the past year? N o * Medications: T akingAcetaminophen Extra Strength 500 [...] double dose for severe constipation.Taking Vitamin D * Allergies: M edications: Adhesive Tape: Unspecified - AllergyCELEBREX (CELECOXIB CAPS): Unspecified - Allergy - Onset Date [id number] EXAM GLOVES (DISPOSABLE GLOVES): Unspecified - Allergy - Onset Date 6306-88-60Hrah: Coconut: Unspecified - AllergyNSAIDS: Unspecified - Allergy - Onset Date 0112-28-73VSUSVX: Unspecified - Allergy - Onset Date 4133-07-21Ibtx: Pineapple: Unspecified - AllergySULFAMETHOXAZOLE-TRIMETHOPRIM: Unspecified - Allergy - Onset Date 2021-01-27 * Electronic signature of Park Jackson MD on 09/23/2025 at 03:57 PM EST Sign off status: Pending Visit Status: R /S (Rescheduled) * Provider: Pavel Jackson MD Date: 1 11/04/2024 Generated for Kay sarkar/Haydee/Wally on: 11/24/2024 03:57 PM EST
--- OUTSIDE RECORDS SUMMARY | 2025-09-04 05:30 | XMS_ITS ---
Author Organization [facility] Address [address] [facility] [address] [place] [address] Care Team Providers Care Pulpwood Buyer Name Role Phone Chelita Jackson Unavailable [phone] Allergies Allergen (clinical drug ingredient) Drug/Non Drug [...] Duration) Notes Start Date End Date Status Estradiol 0.1 MG/24HR Patch Twice Weekly 1 patch to skin Transdermal Two times a Week; Duration: 84 days 08/13/2025 Active Gabapentin 12/12/2018 Active Iron Active Lexapro Active Acetaminophen Extra Strength 500 MG Tablet 2 tablet po every 6 hours; Duration: 14 days Take on schedule for 14 days to prevent post operative pain, then as needed. 08/13/2025 Active oxyCODONE HCl 10 MG Tablet 1 tablet po e very 4 hours; Duration: 2 days 09/04/2025 Active Vitamin D Active Pantoprazole Sodium Active Pepcid Active Polyethylene Glycol 3350 17 GM/SCOOP Powder 1 scoop po daily; Duration: 14 days Use daily for 14 days to prevent post operative constipation. May hold for loose stool. May double dose for severe constipation. 08/13/2025 Active Ondansetron 12/13/2018 Active Ondansetron HCl 4 [...] Problem Status W/U Status Risk Notes Problem Postoperative pain (304006327) Postoperative pain (G89.18) Active confirmed Encounters Encounter Location Date Provider Diagnosis [facility] [address] [facility] [address] [place] [id number] 09/04/2025 Chelita Jackson Postoperative pain G89.18 Assessments Encounter Date Diagnosis (ICD Code) Assessment Notes Treatment Notes Treatment Clinical Notes Section Notes 09/04/2025 Postoperative pain (ICD-10 - G89.18) Patient instructed to break tablets into halves and plan to discontinue by end of week. Keep regularly scheduled post op appointment next week. 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 She reported that her pain remains severe after 8 hours between doses, leading to shaking and vomiting, but is relieved by oxycodone 10 mg. She feels her symptoms are slowly improving and confirmed her bowels are working, continuing Miralax. She notes her pain is improved from last visit. She has had normal labs and normal CT scan since surgery. Progress Notes * Maia KOVACS JDOB:[birth year] (35 yo F)Acc No.[id number]:09/04/2025 Progress Note Patient: Maia García Provider: Pavel Jackson MD :1990 A ge:35 Y S ex:Female Date:09/04/2025 Address:[address] [place], [place] [id number] Subjective: * Chief Complaints: * P o pain * HPI: G YN: Maia Kovacs, a 35-year-old female, presented for follow-up of post-operative pain. She reported that her pain remains severe after 8 hours between doses, leading to shaking and vomiting, but is relieved by oxycodone 10 mg. She feels her symptoms are slowly improving and confirmed her bowels are working, continuing Miralax. She notes her pain is improved from last visit. She has had normal labs and normal CT scan since surgery. * Medical History: Anemia Anxiety Blood Transfusion Depression GERD/Acid Reflux Gallbladder Disease Kidney Stones Migraine Headaches Endometriosis Medical History Verified * Counter Hop History: P ap Smear History: D ate [...] omestic violence: No. Do you have any orthodox, moral, or cultural beliefs or customs that [...] Two times a Week Gabapentin Iron Lexapro Ondansetron Ondansetron HCl 4 MG Tablet 1 tablet po every 8 hours As needed for post operative nauseaoxyCODONE HCl 10 MG Tablet 1 tablet po [...] Taking Gabapentin Taking Iron Taking Lexapro Taking Ondansetron Taking Ondansetron HCl 4 MG Tablet 1 tablet po every 8 hours As needed for post operative nauseaTaking oxyCODONE HCl 10 MG Tablet 1 tablet po every 4 hours Taking Pantoprazole Sodium Taking Pepcid Taking Polyethylene Glycol 3350 17 GM/SCOOP Powder 1 scoop po daily Use daily for 14 days to prevent post operative constipation. May hold for loose stool. May double dose for severe constipation.Taking Vitamin D DiscontinuedoxyCODONE HCl 5 MG Tablet 1 tablet po every 6 hours Take as needed for severe post operative pain.Medication List reviewed and reconciled with the patientDiscontinued oxyCODONE HCl 5 MG Tablet 1 tablet po every 6 hours Take as needed for severe post operative pain.Medication List reviewed and reconciled with the patient * Allergies: M edications: Adhesive Tape: Unspecified - AllergyCELEBREX (CELECOXIB CAPS): Unspecified - Allergy - Onset Date 3879-62-80QHXWQ EXAM GLOVES (DISPOSABLE GLOVES): Unspecified - Allergy - Onset Date 0544-63-26Qkdp: Coconut: Unspecified - AllergyNSAIDS: Unspecified - Allergy - Onset Date 6504-55-17RXWIFV: Unspecified - Allergy - Onset Date 3590-73-19Tbpx: Pineapple: Unspecified - AllergySULFAMETHOXAZOLE-TRIMETHOPRIM: Unspecified - Allergy - Onset Date 5959-03-51cbuKxjyiszbs Verified. Assessment: * Assessment: 1. P ostoperative pain - G89.18 (Primary) Plan: * Treatment: * Follow Up: 1 Week Billing Information: * Visit Code: 86671 Office/Outpatient visit, est patient. * Sign off status: Completed Visit Status: C HK (Check Out) true * Provider: Pavel Jackson MD Date: 1 11/05/2024 Generated for Kay sarkar/Haydee/Ramositting on: 11/24/2024 03:58 PM EST
--- OUTSIDE RECORDS SUMMARY | 2025-09-08 10:34 | XMS_ITS | Encounter Summary ---
Author Organization [facility] Address [address] [place] [address] Care Team Providers Care School Treasurer Name Role Phone SousaMichaela sheehan FERNANDO Primary Care Provider + [phone] Reason for Visit * Reason Comments Abdominal Pain Encounter Details Date Type Department Care Team (Late st Contact Info) Description 09/08/2025 10:34 AM EST - 09/08/2025 2:48 PM [facility] Emergency [facility] [address] [place] [id number] Gorge Blanco MD [address] [facility] [place] [address] Lower abdominal pain (Primary Dx); Right lower quadrant abdominal pain Discharge Disposition: Home or Self Care Social History Tobacco Use Types Packs/Day Years Used Date Smoking Tobacco: Never Passive Smoke Exposure: Never Smokeless Tobacco: Never Alcohol Use Standard Drinks/Week Comments No 0 (1 standard drink = 0.6 oz pur e alcohol) [facility] Utilities Answer Date Recorded In the past 12 months has [employer], gas, oil, or water company threatened to [...] Date Recorded Retired Total Score 0 05/07/2021 [facility] Occupat ional Health - Occupational Stress [...] things needed for daily living? No 12/10/2024 [place]illiards Depression Scale Answer Date Recorded Hilliards Depression Scale Total 2 12/22/2024 The thought of harming myself has occurred to me . Never 12/22/2024 Abuse Screen Answer Date Recorded Feels Unsafe at Home or Work/School no 09/08/2025 Feels Threatened by Someone no 08/27 Does Anyone Try to Keep You From Having Contact with Others or Doing Things Outside Your Home? no 09/08/2025 Physical Signs of Abuse Present no 09/08/2025 Housing Stability Answer Date Recorded Current Living [...] GED or equivalent No 08/13/2025 Preferred Language Citizen Of [place] 08/13/2025 PHQ-2 Answer Date Recorded Patient Health [...] Sign Reading Time Taken Comments Blood Pressure 109/74 09/08/2025 1:00 PM EST Pulse 82 09/08/2025 1:00 PM EST Temperature 36.8 C (98.3 F) 09/08/2025 10:34 AM EST Respiratory Rate 18 09/08/2025 10:34 AM EST Oxygen Saturation 100% 09/08/2025 1:00 PM EST Inhaled Oxygen Concentration - - Weight 72.6 kg (160 lb) 09/08/2025 10:34 AM EST Height 175.3 cm (5' 9 ) 09/08/2025 10:34 AM EST Body Mass Index 23.63 09/08/2025 10:34 AM EST documented in this encounter Functional Status * Cognitive/Neuro/Behavioral WDL Question Answer Date of Assessment Author Level of Consciousness Alert 09/08/2025 10:50 A M EST Gosia Bauer, RN * Safety WDL Question Answer Date of Assessment Author Safety WDL WDL 09/08/2025 10:50 AM Gosia Manrique RN * Calculated C-SSRS Risk Score (Lifetime/Recent) Answer Date of Assessment Author No Risk Indicated 09/08/2025 10:34 AM Roque Coles RN * [place] Suicide Severity Rating Scale (Screener/Recent Self-Report) Question Answer Date of Assessment Author 1. Wish to be (Past 1 Month) No 025 10:34 AM Roque Coles RN 2. Non-Specific Active Suici genevieve Thoughts (Past 1 Month) No 09/08/2025 10:34 AM Roque Coles RN 6. Suicidal Behavior (Lifetime) No 10:34 AM Roque Coles RN * Libra Griffiths Fall Risk Assessment (First 24 hrs only, then right click and complete this group) Question Answer Date of Assessment Author Last Known Fall 0 09/08/2025 10:51 AM Gosia Guido RN Mobility 1 09/08/2025 10:51 AM Gosia Manrique RN Medications 0 09/08/2025 10:51 AM Gosia Manrique RN Mental Status/LOC/Awareness 0 09/08/2025 10 :51 AM Gosia Pardo RN Toileting Needs 0 09/08/2025 10:51 AM Gosia Guido RN Volume/Electrolyte Status 0 09/08/2025 10:5 1 AM Gosia Pardo RN Communication/Sensory 1 09/08/2025 10:51 AM Gosia Pardo RN Hester Davis Fall Risk Total 4 09/08/2025 1 0:51 AM Gosia Pardo, DEEPAK * Cardiac WDL Question Answer Date of Assessment Author Cardiac WDL WDL 09/08/2025 10:50 AM Gosia Manrique RN * Peripheral/Neurovascular WDL Question Answer Date of Assessment Author Peripheral Neurovascular WDL WDL 09/08/2025 1 0:50 AM Gosia Pardo RN * Cognitive/Neuro/Behavioral WDL Question Answer Date of Assessment Author Level of Consciousness Alert 10:50 AM Gosia Pardo RN Cognitive/Neuro/Behaviora l WDL WDL;level of consciousness;orient ation 09/08/2025 10:50 AM Gosia Pardo RN Orientation oriented x 4 09/08/2025 10:50 AM Gosia Pardo RN * Safety WDL Question Answer Date of Assessment Author Safety WDL WDL 09/08/2025 10:50 AM Gosia Manrique RN * Violence Assessment Tool Risk Indicators Question Answer Date of Assessment Author Assessment Type Initial Assessment 09/08/2025 10:34 AM Roque Coles RN History of Violence 0 09/08/2025 10:34 AM Roque Osorio RN Confused 0 09/08/2025 10:34 AM Roque Coles RN Irritable 0 09/08/2025 10:34 AM Roque Coles RN Boisterous 0 09/08/2025 10:34 AM Roque Coles RN Verbal Threats 0 09/08/2025 10:34 AM EST Roque Salazar se, RN Physical Threats 0 09/08/2025 10:34 AM Roque Coles RN Attacking Objects 0 09/08/2025 10:34 AM Roque Coles RN Agitated/Impulsive 0 09/08/2025 10:34 AM ES T Roque Romero RN Paranoid/Suspicious 0 09/08/2025 10:34 AM Roque Osorio RN Substance Intoxication/Withdrawal 0 09/08/2025 10:34 AM Roque Coles RN Socially Inappropriate/Disruptive Behavior 0 09/08/2025 10:34 AM Roque Coles RN Body Language 0 09/08/2025 10:34 AM Roque Reyez RN Violence Assessment Tool Total Score 0 09/08/2025 10:34 AM Roque Coles RN * Calculated C-SSRS Risk Score (Lifetime/Recent) Answer Date of Assessment Author No Risk Indicated 09/08/2025 10:34 AM Roque Coles RN * [place] Suicide Severity Rating Scale (Screener/Recent Self-Report) Question Answer Date of Assessment Author 1. Wish to be (Past 1 Month) No 025 10:34 AM Roque Coles RN 2. Non-Specific Active Suici genevieve Thoughts (Past 1 Month) No 09/08/2025 10:34 AM Roque Coles RN 6. Suicidal Behavior (Lifetime) No 10:34 AM Roque Coles RN * Libra Griffiths Fall Risk Assessment (First 24 hrs only, then right click and complete this group) Question Answer Date of Assessment Author Last Known Fall 0 09/08/2025 10:51 AM Gosia Guido RN Mobility 1 09/08/2025 10:51 AM Gosia Manrique RN Medications 0 09/08/2025 10:51 AM Gosia Manrique RN Mental Status/LOC/Awareness 0 09/08/2025 10 :51 AM Gosia Pardo RN Toileting Needs 0 09/08/2025 10:51 AM Gosia Guido RN Volume/Electrolyte Status 0 09/08/2025 10:5 1 AM Gosia Pardo RN Communication/Sensory 1 09/08/2025 10:51 AM Gosia Pardo RN Hester Davis Fall Risk Total 4 09/08/2025 1 0:51 AM Gosia Pardo RN documented as of this encounter Mental Status * Coping Question Answer Entry Date Author Observed Emotional State tearful/crying; marvin ative;frustrated 09/08/2025 10:50 AM Gosia Pardo RN * Cardiac WDL Question Answer Entry Date Author Cardiac WDL WDL 09/08/2025 10:50 AM Gosia Manrique RN * Cognitive/Neuro/Behavioral WDL Question Answer Entry Date Author Level of Consciousness Alert 10:50 AM Gosia Pardo RN Cognitive/Neuro/Behavioral WDL WDL;level of consciousness;orienta tion 09/08/2025 10:50 AM Gosia Pardo RN Orientation oriented x 4 09/08/2025 10:50 AM Gosia Pardo, DEEPAK * Safety WDL Question Answer Entry Date Author Safety WDL WDL 09/08/2025 10:50 AM Gosia Manrique, DEEPAK * Violence Assessment Tool Risk Indicators Question Answer Entry Date Author Assessment Type Initial Assessment 09/08/2025 10 :34 AM Roque Coles RN History of Violence 0 09/08/2025 1 0:34 AM Roque Coles RN Confused 0 09/08/2025 10:34 AM Roque Coles RN Irritable 0 09/08/2025 10:34 AM Roque Coles RN Boisterous 0 09/08/2025 10:34 AM Roque Coles RN Verbal Threats 0 09/08/2025 10:34 AM Roque Coles RN Physical Threats 0 09/08/2025 10:3 4 AM Roque Coles RN Attacking Objects 0 09/08/2025 10: 34 AM Roque Coles RN Agitated/Impulsive 0 09/08/2025 10 :34 AM Roque Coles RN Paranoid/Suspicious 0 09/08/2025 1 0:34 AM Roque Coles RN Substance Intoxication/Withdrawal 0 09/08/2025 10:34 AM Roque Coles RN Socially Inappropriate/Disruptive Behavior 0 09/08/2025 10:34 AM Roque Coles RN Body Language 0 09/08/2025 10:34 AM Roque Coles RN Violence Assessment Tool Total Score 0 09/08/2025 10:34 AM Roque Coles RN documented in this encounter Discharge Instructions * Discharge Instructions* Namita Hernandez APRN - 09/08/2025 12:50 PM EST Lab work is within normal limits. Urinalysis is within normal limits. You will need to follow-up with your ESL TUTOR for additional medication. * Attachments The following attachments cannot be sent through Care Everywhere. * Abdominal Pain Adult [employer] (Citizen Of [place]) documented in this encounter Medications at Time [...] VIAL VIA NEBULIZER EVERY 6 HOURS 06/27/2025 lidocaine (LIDODERM) 5 % Place 1 patch on the skin as directed by provider Daily. Remove & Discard patch within 12 hours or as directed by MD 30 patch 4 09/08/2025 naloxone (NARCAN) 4 MG/0.1ML nasal spray Administer 1 spray into the nostril(s) as directed by provider As Needed for Opioid Reversal. Call 911. Don't prime. [place] in 1 nostril for overdose. Repeat in 2-3 minutes in other nostril if no or minimal breathing/respo nsiveness. 1 each 08/25/2025 ondansetron ODT (ZOFRAN-ODT) 4 MG disintegrating tabletIndications:H yperemesis gravidarum DISSOLVE 2 TABLETS UNDER THE TONGUE EVERY 8 HOURS NEEDED FOR NAUSEA AND VOMITING 270 tablet 3 07/27/2025 oxyCODONE (Roxicodone) 5 MG immediate release tabletIndications:R ight lower quadrant abdominal pain Take 2 tablets by mouth Every 6 (Six) Hours As Needed for Severe Pain. 12 tablet 09/08/2025 oxyCODONE-acetamino phen (PERCOCET) 10-325 MG per tabletIndications:L [...] DAILY 07/04/2025 documented as of this encounter Consult Notes * Seda Chery MD - 09/08/2025 2:36 PM EST Clara Maia Kovacs : 1990 CSN: [id number] Consult Requested By Namita Consulting Service: Gynecology Reason for Consult/CC: Postoperative pain Date of Consultation: 09/08/25 Subjective Maia Kovacs is a 35 y.o. year old who is post op s/p TRH w/ EoE on 08/20. Since surgery she has had persistent lower abdominal pain initially bilateral but now RLQ in nature. Describedas constant and wakes her up from her sleep. She is having difficulty with ambulation due to severity of abdominal pain. Voiding normally and having regular BM. Evaluation in the ED has been unremarkable with normal labs and normal CT abdomen/pelvis. Past Medical History: Diagnosis Date Abdominal pain Adrenal insufficiency (Licking's disease) Anemia Cholelithiasis Lap ignacia 2010 Elevated [...] and vomiting) Thyroid nodule Vocal cord dysfunction Past Surgical History: Procedure Laterality Date ABDOMINAL [...] BILATERAL SALPINGO-OOPHRECTOMY; Surgeon: Chelita Jackson MD; Location: [facility]; Service[facility]; Laterality: Bilateral; TUBAL ABDOMINAL LIGATION 12/10/2024 UPPER GASTROINTESTINAL ENDOSCOPY 2009 Several GI bleed several scopes OB History Para Term AB Living 4 2 2 0 2 2 SAB IAB Ectopic Molar Multiple Live Births 2 0 0 0 0 2 # Outcome Date GA Lbr Shaun/2nd Weight Sex Type Anes PTL Lv 4 Term 12/10/24 37w5d 2834 g (6 lb 4 oz) F CS-LTranv Spinal N CARLITO Name: Darlene Kovacs Apgar1: 8 Apgar5: 9 3 SAB 2022 6w0d 2 Term 05/16/21 37w0d 2946 g (6 lb 7.9 oz) M CS-LTranv Spinal CARLITO Complications: Intolerance Name: NORA KOVACS Apgar1: 8 Apgar5: 9 1 SAB 03/07/16 Social History Tobacco Use Smoking status: Never Passive exposure: Never Smokeless tobacco: Never Current Facility-Administered Medications: [COMPLETED] Insert Peripheral IV, , , Once AND sodium chloride 0.9 % flush 10 mL, 10 mL, Intravenous, PRN, Namita Hernandez APRN Current Outpatient Medications: Co-Enzyme Q10 100 MG capsule, Take 4 capsules by mouth., Disp: , Rfl: cyclobenzaprine (FLEXERIL) 10 MG tablet, Take 1 tablet by mouth 3 times a day., Disp: , Rfl: docusate sodium 100 MG capsule, Take 1 capsule by mouth 2 (Two) Times a Day As Needed for Constipation., Disp: 60 capsule, Rfl: 1 gabapentin (NEURONTIN) 300 MG capsule, Take 1 capsule by mouth 3 (Three) Times a Day., Disp: , Rfl: ipratropium-albuterol (DUO-NEB) 0.5-2.5 mg/3 ml nebulizer, INHALE THE CONTENTS OF 1 VIAL VIA NEBULIZER EVERY 6 HOURS, Disp: , Rfl: naloxone (NARCAN) 4 MG/0.1ML nasal spray, Administer 1 spray into the nostril(s) as directed by provider As Needed for Opioid Reversal. Call 911. Don't prime. [place] in 1 nostril for overdose. Repeat in 2-3 minutes in other nostril if no or minimal breathing/responsiveness., Disp: 1 each, Rfl: 0 ondansetron ODT (ZOFRAN-ODT) 4 MG disintegrating tablet, DISSOLVE 2 TABLETS UNDER THE TONGUE EVERY 8 HOURS NEEDED FOR NAUSEA AND VOMITING, Disp: 270 tablet, Rfl: 3 oxyCODONE-acetaminophen (PERCOCET) 10-325 MG per tablet, Take 1 tablet by mouth Every 6 (Six) HoursAs Needed for Severe Pain., Disp: 12 tablet, Rfl: 0 pantoprazole (PROTONIX) 40 MG EC tablet, Take [...] Needed (constipation)., Disp: 4 each, Rfl: 0 tiZANidine (ZANAFLEX) 4 MG tablet, take 1 TO 1 AND 1/2 TABLETS BY MOUTH TWICE DAILY, Disp: , Rfl: Allergies Allergen Reactions Celecoxib Anaphylaxis Celebrex; tolerates ibuprofen, ketorolac Coconut (Cocos Nucifera) Anaphylaxis Pineapple Anaphylaxis Sulfa Antibiotics Anaphylaxis and Hives Latex Hives Latex gloves Bentyl [Dicyclomine Hcl] Other (See Comments) Side effect of eyes not adjusting and vision change Metoclopramide Other (See Comments) ERXTRAPYRMIDAL SIDE EFFECTS Twitchy tremors Nsaids GI Bleeding Sulfamethoxazole-Trimethoprim Hives Objective BP 109/74 Pulse 82 Temp 98.3 ??F (36.8 ??C) (Oral) Resp 18 Ht 175.3 cm (69 ) Wt 72.6 kg (160 lb) LMP (LMP Unknown) SpO2 100% BMI 23.63 kg/m?? General: well developed; well nourished mentation appropriate Heart: Normal perfusion Lungs: Regular respirations Abdomen: Soft, non-distended, mildly tender to palpation on the right lower abdomen. Incisions appear to be well healed Imaging Reviewed Problems Addressed: Lower abdominal pain: complicated acute illness or injury Details: CT Of the abdomen and pelvis is negative for acute findings. Assessment Postoperative pain Plan Postoperative pain - pt has been seen several times outpatient for evaluation of postoperative pain, [facility] any acute findings and normal labs in addition to normal CT scan on presentation today - reviewed given reassuring imaging/labs, no c/f postoperative complication - counseled on optimization of non-narcotic pain medications. She continues taking: Gabapentin 300mg TID (will increase to 600mg TID), Tizanidine, Tylenol, and Baclofen was recently added. She is unable to take NSAIDs due to history of GI bleeds. - Reviewed given no obvious acute finding of etiology of pain, recommend outpatient pain managementconsultation for optimization of alternative multimodal pain medication regimens - Plan for last Rx for 12 10mg Oxy tabs PRN, reviewed recommendation to only use in case of emergency - Will try lidocaine patch and abdominal binder - Reviewed activity modifications - Plan for f/u in office on 09/12 as scheduled My findings from today's consultation along with recommendations and plan of care have been discussed with patient and her partner. Seda Chery MD 09/08/2025 14:37 EST documented in this encounter ED Notes * Namita Hernandez APRN - 09/08/2025 11:12 AM EST EMERGENCY DEPARTMENT ENCOUNTER Pt Name: Maia Kovacs Pt : 1990 Room Number: 12/29 Date of encounter: 09/08/2025 PCP: Michaela Sousa APRN ED Provider: Namita Hernandez APRN HPI: Chief Complaint: abdominal pain Context: Maia Kovacs is a 35 yr old female that presents to the emergency department for complaints of lower abdominal pain. Patient advises that she had a hysterectomy on August [address] Jackson. She advises that there were also sutures removed from scar tissue at this time. She reports that she has had nausea and vomiting. Her last bowel movement was this morning. She denies any fevers or chills. Patient has been taking oxycodone 10 mg however she took her last dose last night. Patient did call the [employer] [facility] and was prescribed baclofen. Patient has an appointment to see Dr. Jackson next week. Patient advises that she is here for pain management. REVIEW OF SYSTEMS A chief complaint appropriate review of systems was completed and is negative except as noted in the HPI. PAST MEDICAL HISTORY Past Medical History: Diagnosis Date Abdominal pain Adrenal insufficiency (Piero's disease) Anemia Cholelithiasis Lap ignacia 2010 Elevated [...] SECTION PRIMARY; Surgeon: Raghavendra Orozco MD; Location: [facility] LABOR DELIVERY;Service: Obstetrics/Gynecology; Laterality: N/A; SECTION N/A 12/10/2024 Procedure: SECTION REPEAT; Surgeon: Seda Sutton MD; Location: [facility] LABOR DELIVERY;Service: Obstetrics/Gynecology; Laterality: N/A; CHOLECYSTECTOMY 2008 COLONOSCOPY N/A 09/28/2018 Procedure: COLONOSCOPY; Surgeon: Jens Zuluaga MD; Location: [facility] ENDOSCOPY; Service: Gastroenterology CYSTOSCOPY RETROGRADE PYELOGRAM Right 12/18/2022 Procedure: CYSTOSCOPY RIGHT RETROGRADE PYELOGRAM, DIAGNOSTIC URETEROSCOPY, RIGHT URETERAL STENT; Surgeon: Raulito Lancaster MD; Location: [facility]; Service: Urology; Laterality: Right; ENDOSCOPY N/A 12/10/2017 Procedure: ESOPHAGOGASTRODUODENOSCOPY; Surgeon: Jens Zuluaga MD; Location: [facility] ENDOSCOPY; Service: Gastroenterology ENDOSCOPY N/A 05/12/2018 Procedure: [...] LIVER BIOPSY 2017 LUMBAR SYMPATHETIC NERVE BLOCK PELVIC LAPAROSCOPY N/A [...] Yes Partners: Male control/protection: Bilateral salpingectomy ALLERGIES Celecoxib, Coconut (cocos nucifera), Pineapple, Sulfa antibiotics, Latex, Bentyl [dicyclomine hcl],Metoclopramide, Nsaids, and Sulfamethoxazole-trimethoprim PHYSICAL EXAM Physical Exam Vitals and nursing note reviewed. Constitutional: General: She is not in acute distress. Appearance: She is well-developed. She is not ill-appearing. HENT: Head: Normocephalic and atraumatic. Eyes: Extraocular Movements: Extraocular movements intact. Pupils: Pupils are equal, round, and reactive to light. Cardiovascular: Rate and Rhythm: Normal rate and regular rhythm. Heart sounds: Normal heart sounds. Pulmonary: Effort: Pulmonary effort is normal. No respiratory distress. Breath sounds: Normal breath sounds. Abdominal: General: Bowel sounds are normal. Palpations: Abdomen is soft. Tenderness: There is abdominal tenderness in the suprapubic area. Skin: General: Skin is warm and dry. Neurological: General: No focal deficit present. Mental Status: She is alert and oriented to person, place, and time. Psychiatric: Mood and Affect: Mood normal. Behavior: Behavior normal. LAB RESULTS Results for orders placed or performed during the hospital encounter of 09/08/25 Comprehensive Metabolic Panel Collection Time: 09/08/25 11:01 AM Specimen: Blood Result Value Ref Range Glucose 96 65 - 99 mg/dL BUN 6.9 6.0 - 20.0 mg/dL Creatinine 0.62 0.57 - 1.00 mg/dL Sodium 140 136 - 145 mmol/L Potassium 3.6 3.5 - 5.2 mmol/L Chloride 107 98 - 107 mmol/L CO2 24.2 22.0 - 29.0 mmol/L Calcium 8.9 8.6 - 10.5 mg/dL Total Protein 7.1 6.0 - 8.5 g/dL Albumin 4.1 3.5 - 5.2 g/dL ALT (SGPT) 15 1 - 33 U/L AST (SGOT) 20 1 - 32 U/L Alkaline Phosphatase 99 39 - 117 U/L Total Bilirubin 0.3 0.0 - 1.2 mg/dL Globulin 3.0 gm/dL A/G Ratio 1.4 g/dL BUN/Creatinine Ratio 11.1 7.0 - 25.0 Anion Gap 8.8 5.0 - 15.0 mmol/L eGFR 120.8 >60.0 mL/min/1.73 Lipase Collection Time: 09/08/25 11:01 AM Specimen: Blood Result Value Ref Range Lipase 12 (L) 13 - 60 U/L Urinalysis With Microscopic If Indicated (No Culture) - Urine, Clean Catch Collection Time: 09/08/25 11:01 AM Specimen: Urine, Clean Catch Result Value Ref Range Color, UA Yellow Yellow, Straw Appearance, UA Clear Clear pH, UA 6.0 5.0 - 8.0 Specific [place], UA 1.017 1.005 - 1.030 Glucose, UA Negative Negative Ketones, UA Negative Negative Bilirubin, UA Negative Negative Blood, UA Negative Negative Protein, UA Negative Negative Leuk Esterase, UA Negative Negative Nitrite, UA Negative Negative Urobilinogen, UA 0.2 E.U./dL 0.2 - 1.0 E.U./dL CBC Auto Differential Collection Time: 09/08/25 11:01 AM Specimen: Blood Result Value Ref Range WBC 8.91 3.40 - 10.80 10*3/mm3 RBC 4.43 3.77 - 5.28 10*6/mm3 Hemoglobin 12.3 12.0 - 15.9 g/dL Hematocrit 37.4 34.0 - 46.6 % MCV 84.4 79.0 - 97.0 fL MCH 27.8 26.6 - 33.0 pg MCHC 32.9 31.5 - 35.7 g/dL RDW 13.2 12.3 - 15.4 % RDW-SD 40.8 37.0 - 54.0 fl MPV 8.8 6.0 - 12.0 fL Platelets 367 140 - 450 10*3/mm3 Neutrophil % 81.1 (H) 42.7 - 76.0 % Lymphocyte % 10.0 (L) 19.6 - 45.3 % Monocyte % 5.3 5.0 - 12.0 % Eosinophil % 2.5 0.3 - 6.2 % Basophil % 0.7 0.0 - 1.5 % Immature Grans % 0.4 0.0 - 0.5 % Neutrophils, Absolute 7.23 (H) 1.70 - 7.00 10*3/mm3 Lymphocytes, Absolute 0.89 0.70 - 3.10 10*3/mm3 Monocytes, Absolute 0.47 0.10 - 0.90 10*3/mm3 Eosinophils, Absolute 0.22 0.00 - 0.40 10*3/mm3 Basophils, Absolute 0.06 0.00 - 0.20 10*3/mm3 Immature Grans, Absolute 0.04 0.00 - 0.05 10*3/mm3 nRBC 0.0 0.0 - 0.2 /100 WBC If labs were ordered, I independently reviewed the results and considered them in treating the patient. RADIOLOGY CT Abdomen Pelvis With Contrast Final Result Impression: CT scan of the abdomen and pelvis with IV contrast demonstrating previous cholecystectomy and hysterectomy. Electronically Signed: Sanchez Melchor MD 09/08/2025 12:25 PM EST Workstation ID: [id number] [] Radiologist's Report Reviewed: I ordered and independently interpreted the above noted radiographic studies. See radiologist's dictation for official interpretation. PROCEDURES Procedures No orders to display MEDICATIONS GIVEN IN ER Medications sodium chloride 0.9 % flush 10 mL (has no administration in time range) sodium chloride 0.9 % bolus 1,000 mL (0 mL Intravenous Stopped 09/08/25 1230) iopamidol (ISOVUE-300) 61 % injection 100 mL (85 mL Intravenous Given 09/08/25 1156) oxyCODONE-acetaminophen (PERCOCET) 5-325 MG per tablet 2 tablet (2 tablets Oral Given 09/08/25 1235) ondansetron ODT (ZOFRAN-ODT) disintegrating tablet 4 mg (4 mg Translingual Given 09/08/25 1235) MEDICAL DECISION MAKING, PROGRESS, and CONSULTS Medical Decision Making Maia Kovacs is a 35 yr old female that presents to the emergency department for complaints of lower abdominal pain. Patient advises that she had a hysterectomy on August [address] Jackson. Sheadvises that there were also sutures removed from scar tissue at this time. She reports that she has had nausea and vomiting. Her last bowel movement was this morning. She denies any fevers or chills. Patient has been taking oxycodone 10 mg however she took her last dose last night. Patient did call the [employer] [facility] and was prescribed baclofen. Patient has an appointment to see Dr. Jackson next week. Patient advises that she is here for pain management. Problems Addressed: Lower abdominal pain: complicated acute illness or injury Details: CT Of the abdomen and pelvis is negative for acute findings. findings were discussed with the patient at this time. ESL TUTOR was consulted. ESL TUTOR came to evaluate the patient in the ED. Amount and/or Complexity of Data Reviewed Labs: ordered. Decision-making details documented in ED Course. Radiology: ordered. Decision-making details documented in ED Course. Risk Prescription drug management. Discussion below represents my analysis of pertinent findings related to patient's condition, differential diagnosis, treatment plan and final disposition. Assessment includes with Differential diagnosis including but is not limited to: Abdominal pain pelvic pain, intra-abdominal abnormality, sepsis Additional sources Discussed/ obtained information from independent historians: [] Spouse [] Parent [] Family member [] Friend [] EMS [] Other: External (non-ED) record review: [] Inpatient record: [] Office record: [] Outpatient record: [x] Prior Outpatient labs: [x] Prior Outpatient radiology: [] Primary Care record: [] Outside ED record: [] Other: Patient's care impacted by: [] Diabetes [] Hypertension [] Hyperlipidemia [] Hypothyroidism [] Coronary Artery Disease [] Congestive Heart Failure [] COPD [] Cancer [] Obesity [] GERD [] Tobacco Abuse [] Substance Abuse [] Anxiety [] Depression [] Other: Care significantly affected by Social Determinants of Health (housing and economic circumstances, unemployment) [] Yes [x] No If yes, Patient's care significantly limited by Social Determinants of Health including: [] Inadequate housing [] Low income [] Alcoholism and drug addiction in family [] Problems related to primary support group [] Unemployment [] Problems related to employment [] Other Social Determinants of Health: Orders placed during this visit: Orders Placed This Encounter Procedures CT Abdomen Pelvis With Contrast Comprehensive Metabolic Panel Lipase Urinalysis With Microscopic If Indicated (No Culture) - Urine, Clean Catch CBC Auto Differential Insert Peripheral IV CBC & Differential I considered prescription management with: [] Pain medication [] Antiviral [] Antibiotic [] Other: Rationale: ED Course: ED Course as of 09/08/25 1537 Sat Sep 08, 2025 1131 WBC: 8.91 [KG] 1131 Hemoglobin: 12.3 [KG] 1131 Hematocrit: 37.4 [KG] 1246 Lipase(!): 12 [KG] 1246 Creatinine: 0.62 [KG] 1246 Sodium: 140 [KG] 1246 Chloride: 107 [KG] 1246 CT of the abdomen and pelvis reviewed and interpreted as negative for acute findings. [KG] 1300 Shared decision making with patient and imaging is negative for acute findings. Lab work is unremarkable. I discussed with patient that she will need to follow-up as outpatient with her [employer]. Patient advises that she spoke with someone with Dr. Jackson's office. She advises that she was told thatthey would come in and evaluate her. [KG] 1326 Dr. Chery with [employer] [facility] is paged at this time. [KG] 1420 [facility] the patient. [KG] ED Course User Index [KG] Namita Hernandez, DATA MODELER DIAGNOSIS Final diagnoses: Lower abdominal pain DISPOSITION DISCHARGE Patient discharged in stable condition. Reviewed [...] with a physician of their choice. FOLLOW-UP Chelita Jackson MD [address] [facility] 702 [facility] [address] Michaela Sousa APRN [address] [address] Medication List New Prescriptions lidocaine 5 % Commonly known as: LIDODERM Place 1 patch on the skin as directed by provider Daily. Remove & Discard patch within 12 hoursor as directed by oxyCODONE 5 MG immediate release tablet Commonly known as: Roxicodone Take 2 tablets by mouth Every 6 (Six) Hours As Needed for Severe Pain. Where to Get Your Medications These medications were sent to [facility] [place] [address] [address] [facility] - [phone] [facility] [phone] [facility] [address] [address] lidocaine 5 % oxyCODONE 5 MG immediate release tablet ED Disposition ED Disposition Discharge Condition Stable Comment -- Namita Hernandez APRN 09/08/25 1537 Cosigned by Gorge Blanco MD at 09/09/2025 6:02 AM EST Associated attestation - Gorge Blanco MD - 09/09/2025 6:02 AM EST SUPERVISED: Based on the medical record the care appears appropriate. Gorge Blanco MD 09/09/2025 06:02 EST documented in this encounter Plan of Treatment Upcoming Encounters Date Type Department Care Team (Late st Contact Info) Description 10/31/2025 3:15 PM EST Office Visit [facility] [address] [id number] Aminata Nassar MD [address] [address] documented as of this encounter Procedures Procedure Name Priority Date/Time Associated Diagnosis Comments CT ABDOMEN PELVIS W CONTRAST STAT 09/08/2025 12:00 PM EST URINALYSIS W/ MICROSCOPIC IF INDICATED (NO CULTURE) STAT 09/08/2025 11:01 AM EST CBC WITH AUTO DIFFERENTIAL STAT 09/08/2025 11:01 AM EST CBC AND DIFFERENTIAL STAT 09/08/2025 11:01 AM EST LIPASE STAT 09/08/2025 11:01 AM EST COMPREHENSIVE METABOLIC PANEL STAT 09/08/2025 11:01 AM EST documented in this encounter Results * CT Abdomen Pelvis With Contrast (09/08/2025 12:00 PM EST) Anatomical Region Laterality Modality Abdomen, Pelvis N/A Computed Tomogra phy 09/08/2025 12:1 9 PM EST Impressions 09/08/2025 12:25 PM EST Impression: CT scan of the abdomen and pelvis with IV contrast demonstrating previous cholecystectomy and hysterectomy. Electronically Signed: Sanchez Melchor MD 09/08/2025 12:25 PM EST Workstation ID: [id number] Narrative 09/08/2025 12:[address] ABDOMEN PELVIS W CONTRAST Date of Exam: 09/08/2025 11:50 AM EST Indication: abd pain,. Comparison: CT AP 06/01/2025 Technique: Axial CT images were obtained of the abdomen and pelvis following the uneventful intravenous administration of iodinated contrast. Reconstructed coronal and sagittal images were also obtained. Automated exposure control and iterative construction methods were used. Findings: The lung bases are clear. The liver is of normal size and uniform density. The gallbladder is absent, surgical clips are seen in the gallbladder bed. No pancreatic or adrenal mass is evident. The spleen is of normal size. The kidneys enhance bilaterally. No renal or ureteral stones are seen. There is no evidence of hydronephrosis. The urinary bladder is not abnormally distended. The uterus is absent. No pelvic mass is seen. The stomach is not abnormally distended. Small bowel loops are of normal caliber. The appendix is not visualized. No significant stool is seen. Bony structures appear intact. Procedure Note Sanchez Melchor MD - 09/08/2025 CT ABDOMEN PELVIS W CONTRAST Date of Exam: 09/08/2025 11:50 AM EST Indication: abd pain,. Comparison: CT AP 06/01/2025 Technique: Axial CT images were obtained of the abdomen and pelvisfollowing the uneventful intravenous administration of iodinated contrast.Reconstructed coronal and sagittal images were also obtained. Automatedexposure control and iterative construction methods were used. Findings: The lung bases are clear. The liver is of normal size and uniform density. The gallbladder isabsent, surgical clips are seen in the gallbladder bed. No pancreatic oradrenal mass is evident. The spleen is of normal size. The kidneys enhancebilaterally. No renal or ureteral stones are seen. There is no evidence of hydronephrosis. The urinarybladder is not abnormally distended. The uterus is absent. No pelvic mass is seen. The stomach is not abnormally distended. Small bowel loops are of normalcaliber. The appendix is not visualized. No significant stool is seen. Bony structures appear intact. IMPRESSION: Impression: CT scan of the abdomen and pelvis with IV contrast demonstrating previouscholecystectomy and hysterectomy. Electronically Signed: Sanchez Melchor MD 09/08/2025 12:25 PM EST Workstation ID: [id number] Namita Hernandez DATA MODELER IMG CT ORDERABLES Final R esult * (ABNORMAL) CBC Auto Differential (09/08/2025 11:01 AM EST) WBC 8.91 3.40 - 10.80 10*3/mm3 09/08/2025 11:28 AM [facility] RBC 4.43 3.77 - 5.28 10*6/mm3 09/08/2025 11:28 AM [facility] Hemoglobin 12.3 12.0 - 15.9 g/dL 09/08/2025 11:28 AM [facility] Hematocrit 37.4 34.0 - 46.6 % 09/08/2025 11:28 AM [facility] MCV 84.4 79.0 - 97.0 fL 09/08/2025 11:28 AM [facility] MCH 27.8 26.6 - 33.0 pg 09/08/2025 11:28 AM [facility] MCHC 32.9 31.5 - 35.7 g/dL 09/08/2025 11:28 AM [facility] RDW 13.2 12.3 - 15.4 % 09/08/2025 11:28 AM [facility] RDW-SD 40.8 37.0 - 54.0 fl 09/08/2025 11:28 AM [facility] MPV 8.8 6.0 - 12.0 fL 09/08/2025 11:28 AM [facility] Platelets 367 140 - 450 10*3/mm3 09/08/2025 11:28 AM [facility] Neutrophil % 81.1(H) 42.7 - 76.0 % 09/08/2025 11:28 AM [facility] Lymphocyte % 10.0(L) 19.6 - 45.3 % 09/08/2025 11:28 AM [facility] Monocyte % 5.3 5.0 - 12.0 % 09/08/2025 11:28 AM [facility] Eosinophil % 2.5 0.3 - 6.2 % 09/08/2025 11:28 AM [facility] Basophil % 0.7 0.0 - 1.5 % 09/08/2025 11:28 AM [facility] Immature Grans % 0.4 0.0 - 0.5 % 09/08/2025 11:28 AM [facility] Neutrophils, Absolute 7.23(H) 1.70 - 7.00 10*3/mm3 09/08/2025 11:28 AM [facility] Lymphocytes, Absolute 0.89 0.70 - 3.10 10*3/mm3 09/08/2025 11:28 AM [facility] Monocytes, Absolute 0.47 0.10 - 0.90 10*3/mm3 09/08/2025 11:28 AM [facility] Eosinophils, Absolute 0.22 0.00 - 0.40 10*3/mm3 09/08/2025 11:28 AM [facility] Basophils, Absolute 0.06 0.00 - 0.20 10*3/mm3 09/08/2025 11:28 AM [facility] Immature Grans, Absolute 0.04 0.00 - 0.05 10*3/mm3 09/08/2025 11:28 AM [facility] nRBC 0.0 0.0 - 0.2 /100 WBC 09/08/2025 11:28 AM [facility] Blood Venipuncture / Unknown 09/08/2025 11:01 AM EST 09/08/2025 11:19 AM EST Namita Hernandez DATA MODELER LAB BLOOD ORDERABLES Kate faulkner Result [facility]
[address] [place] [address], * Urinalysis With Microscopic If Indicated (No Culture) - Urine, Clean Catch (09/08/2025 11:01 AM EST) Color, UA Yellow Yellow, Straw 09/08/2025 11:31 AM [facility] Appearance, UA Clear Clear 09/08/2025 11:31 AM [facility] pH, UA 6.0 5.0 - 8.0 09/08/2025 11:31 AM [facility] Specific [place], UA 1.017 1.005 - 1.030 09/08/2025 11:31 AM [facility] Glucose, UA Negative Negative 09/08/2025 11:31 AM [facility] Ketones, UA Negative Negative 09/08/2025 11:31 AM [facility] Bilirubin, UA Negative Negative 09/08/2025 11:31 AM [facility] Blood, UA Negative Negative 09/08/2025 11:31 AM [facility] Protein, UA Negative Negative 09/08/2025 11:31 AM [facility] Leuk Esterase, UA Negative Negative 09/08/2025 11:31 AM [facility] Nitrite, UA Negative Negative 09/08/2025 11:31 AM [facility] Urobilinogen, UA 0.2 E.U./dL 0.2 - 1.0 E.U./dL 09/08/2025 11:31 AM [facility] Urine Urine specimen obtained by clean catch procedure / Unknown Collection / Unknown 09/08/2025 11:01 AM EST 09/08/2025 11:27 AM EST Narrative [facility] - 09/08/2025 11:31 AM EST Urine microscopic not indicated. Namita Hernandez DATA MODELER URINE ORDERABLES Final Re sult Performing Organization Address City/[facility]/ZIP Co de Phone Number [facility]
[address] [place] [address], * (ABNORMAL) Lipase (09/08/2025 11:01 AM EST) Lipase 12(L) 13 - 60 U/L 09/08/2025 11:54 AM EST [facility] Blood Venipuncture / Unknown 09/08/2025 11:01 AM EST 09/08/2025 11:29 AM EST Namita Hernandez DATA MODELER LAB BLOOD ORDERABLES Kate l Result Performing Organization Address [facility]/ZIP Co de Phone Number [facility]
[address] [place] [address], * Comprehensive Metabolic Panel (09/08/2025 11:01 AM EST) Glucose 96 65 - 99 mg/dL 09/08/2025 11:54 AM EST [facility] BUN 6.9 6.0 - 20.0 mg/dL 09/08/2025 11:54 AM EST [facility] Creatinine 0.62 0.57 - 1.00 mg/dL 09/08/2025 11:54 AM EST [facility] Sodium 140 136 - 145 mmol/L 09/08/2025 11:54 AM EST [facility] Potassium 3.6 3.5 - 5.2 mmol/L 09/08/2025 11:54 AM EST [facility] Chloride 107 98 - 107 mmol/L 09/08/2025 11:54 AM EST [facility] CO2 24.2 22.0 - 29.0 mmol/L 09/08/2025 11:54 AM [facility] Calcium 8.9 8.6 - 10.5 mg/dL 09/08/2025 11:54 AM [facility] Total Protein 7.1 6.0 - 8.5 g/dL 09/08/2025 11:54 AM [facility] Albumin 4.1 3.5 - 5.2 g/dL 09/08/2025 11:54 AM [facility] ALT (SGPT) 15 1 - 33 U/L 09/08/2025 11:54 AM [facility] AST (SGOT) 20 1 - 32 U/L 09/08/2025 11:54 AM [facility] Alkaline Phosphatase 99 39 - 117 U/L 09/08/2025 11:54 AM [facility] Total Bilirubin 0.3 0.0 - 1.2 mg/dL 09/08/2025 11:54 AM [facility] Globulin 3.0 gm/dL 09/08/2025 11:54 AM [facility] Comment:Calculated Result A/G Ratio 1.4 g/dL 09/08/2025 11:54 AM [facility] BUN/Creatinine Ratio 11.1 7.0 - 25.0 09/08/2025 11:54 AM [facility] Anion Gap 8.8 5.0 - 15.0 mmol/L 09/08/2025 11:54 AM [facility] eGFR 120.8 >60.0 mL/min/1.7 3 09/08/2025 11:54 AM [facility] Blood Venipuncture / Unknown 09/08/2025 11:01 AM EST 09/08/2025 11:29 AM [facility] - 09/08/2025 11:54 AM EST GFR Categories in Chronic Kidney Disease [...] not include race as a factor us Namita Hernandez DATA MODELER LAB BLOOD ORDERABLES Kate faulkner Result [facility]
[address] [place] [address], documented in this encounter Visit Diagnoses Diagnosis Lower abdominal pain- Primary Abdominal pain, other specified site Right lower quadrant abdominal pain documented in this encounter Administered Medications Inactive Administered Medications - up to 3 most recent administrations Medication Order MAR Action Action Date Dose Rate Site iopamidol (ISOVUE-300) 61 % injection 100 mL 100 mL, Intravenous, Once in Imaging, On 09/08/25 at 1212, For 1 dose Given 09/08/2025 11:56 AM EST 85 mL ondansetron ODT (ZOFRAN-ODT) disintegrating tablet 4 mg 4 mg, Translingual, Once, On 09/08/25 at 1247, For 1 dose, If multiple N/V medications ordered, use in the following order: Ondansetron, Prochlorperazine, Promethazine. Use PO unless patient refuses or patient unable to swallow. Place on tongue and allow to dissolve. Given 09/08/2025 12:35 PM EST 4 mg oxyCODONE-acetaminophen (PERCOCET) 5-325 MG per tablet 2 tablet 2 tablet, Oral, Once, On 09/08/25 at 1235, For 1 dose, Based on patient request [...] Pain Score of 7-10, CPOT 5-8 Given 09/08/2025 12:35 PM EST 2 tablets sodium chloride 0.9 % bolus 1,000 mL 1,000 mL, Intravenous, at 2,000 mL/hr, Administer over 0.5 Hours, Once, On 09/08/25 at 1103, For 1 dose New Bag 09/08/2025 11:27 AM EST 1,000 mL 2000 mL/hr sodium chloride 0.9 % flush 10 mL 10 mL, Intravenous, As Needed, Line Care, Starting on 09/08/25 at 1040 documented in this encounter Active and Recently Administered Medications Times are shown in EST. Scheduled Medication Order 09/06/2025 09/07/2025 09/08/2025 iopamidol (ISOVUE-300) 61 % injection 100 mL (COMPLETED) 100 mL, Intravenous, Once in Imaging, On 09/08/25 at 1212, For 1 dose 1156 (Given - Provid er: Sarah Ward RT) ondansetron ODT (ZOFRAN-ODT) disintegrating tablet 4 mg (COMPLETED) 4 mg, Translingual, Once, On 09/08/25 at 1247, For 1 dose, If multiple N/V medications ordered, use in the following order: Ondansetron, Prochlorperazine, Promethazine. Use PO unless patient refuses or patient unable to swallow. Place on tongue and allow to dissolve. 1235 (Given - Provid er: Gosia Bauer RN) oxyCODONE-acetaminophen (PERCOCET) 5-325 MG per tablet 2 tablet (COMPLETED) 2 tablet, Oral, Once, On 09/08/25 at 1235, For 1 dose, Based on patient request [...] = Pain Score of 7-10, CPOT 5-8 1235 (Given - Provid er: Gosia Bauer RN) sodium chloride 0.9 % bolus 1,000 mL (COMPLETED) 1,000 mL, Intravenous, at 2,000 mL/hr, Administer over 0.5 Hours, Once, On 09/08/25 at 1103, For 1 dose 1127 (New Bag - Prov ider: Gosia Bauer RN)1230 (Stopped - Provider: Gosia Bauer RN) PRN Medication Order 09/06/2025 09/07/2025 09/08/2025 sodium chloride 0.9 % flush 10 mL(Linked Group 1) 10 mL, Intravenous, As Needed, Line Care, Starting on 09/08/25 at 1040 Linked Groups Order Group 1: Insert Peripheral IV (CANCELED) STAT, Once, On 09/08/25 at 1041, For 1 occurrence And sodium chloride 0.9 % flush 10 mLJump to med 10 mL, Intravenous, As Needed, Line Care, Starting on 09/08/25 at 1040 documented in this encounter Additional Health Concerns Infection Onset Date Last Indicated Resolved Time COVID (History) Comment: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 The last day before reporting a new confirmed COVID-19 would be 12/08/20. -Alida Banda RN 09/09/2020 12/25/2020 documented as of this encounter Care Teams School Treasurer Relationship Specialty Start Date End Date Michaela Sousa APRN [address] [place] [address] FELIPE MOLINA [address] PCP - General Internal Medicine 09/04/24 documented as of this encounter
--- OUTSIDE RECORDS SUMMARY | 2025-09-12 06:15 | XMS_ITS ---
Author Organization [facility] Address [address] [facility] [address] [place] [address] Care Team Providers Care Business Writer Name Role Phone Chelita Jackson Unavailable [phone] Allergies Allergen (clinical drug ingredient) Drug/Non Drug [...] Unspecified Allergy 2020 Active REASON FOR VISIT 3WK PO Medications Medication SIG (Take, Route, Frequency, Duration) Notes Start Date End Date Status oxyCODONE HCl 10 MG Tablet 1 tablet po e very 4 hours; Duration: 2 days 09/04/2025 Active Pantoprazole Sodium Active Pepcid Active Polyethylene Glycol 3350 17 GM/SCOOP Powder 1 scoop po daily; Duration: 14 days Use daily for 14 days to prevent post operative constipation. May hold for loose stool. May double dose for severe constipation. 08/13/2025 Active Vitamin D Active Iron Active Lexapro Active Ondansetron HCl 4 MG Tablet 1 tablet po every 8 hours; Duration: 3 days As needed for post operative nausea 08/13/2025 Active Estradiol 0.1 MG/24HR Patch Twice Weekly 1 patch to skin Transdermal Two times a Week; Duration: 84 days 08/13/2025 Active Gabapentin 12/12/2018 Active Acetaminophen Extra Strength 500 MG Tablet 2 tablet po every 6 hours; Duration: 14 days Take on schedule for 14 days to prevent post operative pain, then as needed. 08/13/2025 Active Baclofen 5 MG Tablet 1 table Orally 3 ti mes a day; Duration: 7 days 09/07/2025 Active Social History Tobacco Use: Social History [...] Domestic violence: No Do you have any yazdanism, m oral, or cultural beliefs or customs that your provider should know about? No Would you object to blood products in the event of an emergency? No Encounters Encounter Location Date Provider Diagnosis formerly [facility] [address] [place] [address] 09/12/2025 Chelita Jackson Plan Of Treatment Next Appt Details Provider Name:Chelita Renetta , 10/03/2025 04:00:00 PM, [address], [address], [place], [address], Progress Notes * Maia KOVACSDOB:[birth year] (35 yo F)Acc No.[id number]:09/12/2025 Progress Note Patient: Maia García Provider: Pavel Jackson MD :1990 A ge:35 Y S ex:Female Date:09/12/2025 Address:[address] [place] [address], [place], [phone] Subjective: * Chief Complaints: * 3 WK PO * Medical History: Anemia Anxiety Blood Transfusion Depression GERD/Acid Reflux Gallbladder Disease Kidney Stones Migraine Headaches Endometriosis * Software Support Technician History: P ap Smear History: D ate [...] Rhinoplasty Tonsillectomy - child Bilateral Tubal Ligation Total Robotic Hysterectomy, Bilateral Salpingo-oophorectomy, Laparoscopy, Fulguration and Excision of Lesions 08/21/25 * Hospitalization/Major Diagno stic Procedure: labor and [...] omestic violence: No. Do you have any yazdanism, moral, or cultural beliefs or customs that [...] to prevent post operative pain, then as needed.Baclofen 5 MG Tablet 1 table Orally 3 times a day Estradiol 0.1 MG/24HR Patch Twice Weekly 1 patch to skin Transdermal Two times a Week Gabapentin Iron Lexapro Ondansetron HCl 4 MG Tablet 1 tablet [...] prevent post operative pain, then as needed.Taking Baclofen 5 MG Tablet 1 table Orally 3 times a day Taking Estradiol 0.1 MG/24HR Patch Twice Weekly 1 patch to skin Transdermal Two times a Week Taking Gabapentin Taking Iron Taking Lexapro Taking Ondansetron HCl 4 MG Tablet 1 [...] CAPS): Unspecified - Allergy - Onset Date [id number] EXAM GLOVES (DISPOSABLE GLOVES): Unspecified - Allergy - Onset Date 6617-91-06Jxzx: Coconut: Unspecified - AllergyNSAIDS: Unspecified - Allergy - Onset Date [id number]: Unspecified - Allergy - Onset Date 8714-09-40Bulh: Pineapple: Unspecified - AllergySULFAMETHOXAZOLE-TRIMETHOPRIM: Unspecified - Allergy - Onset Date 2021-01-27 * Electronic signature of Park Jackson MD on 09/23/2025 at 03:59 PM EST Sign off status: Pending Visit Status: R /S (Rescheduled) * Provider: Pavel Jackson MD Date: 1 11/13/2024 Generated for Kay sarkar/Haydee/Wally on: 1 11/24/2024 03:59 PM EST
--- OUTSIDE RECORDS SUMMARY | 2025-09-12 09:45 | XMS_ITS ---
Author Organization [facility] Address [address] [place] [address] Care Team Providers Care Supply Specialist Name Role Phone Chelita Jackson Unavailable [phone] Reason For Referral Reason \Pelvic PT-Post oper ative pelvic pain Diagnosis 1 RLQ abdominal pain ( R10.31) Referral Organization [facility] Referring Provider First Name Chelita Referring Provider Last Name Renetta Referring Provider Speciality OB - Gynec ology Referred Provider Specialty Physical The rapist General Notes Antonia Moulton 09/13 11:06:55 AM EST >faxed to [facility] Referral Priority Routine REASON FOR VISIT 3 wk po Medications Medication SIG (Take, Route, Frequency, Duration) Notes Start Date End Date Status Ondansetron HCl 4 MG Tablet 1 tablet po every 8 hours; Duration: 3 days As needed for post operative nausea 08/13/2025 Not-Taking/PRN Polyethylene Glycol 3350 17 GM/SCOOP Powder 1 scoop po daily; Duration: 14 days Use daily for 14 days to prevent post operative constipation. May hold for loose stool. May double dose for severe constipation. 08/13/2025 Not-Taking/ PRN Pepcid Active oxyCODONE HCl 10 MG Tablet 1 tablet po every 4 hours; Duration: 2 days 09/04/2025 Not-Taking/PRN Pantoprazole Sodium Active Iron Active Lexapro Active Ondansetron 12/13/2018 Not-Gus ing/PRN Estradiol 0.1 MG/24HR Patch Twice Weekly 1 [...] Tablet 1 table Orally 3 times a day; Duration: 7 days 09/07/2025 Active Vitamin D Active Social History Sex Assigned At : Social History Observation Description Sex Assigned At Female Vital Signs Blood pressure systolic 120 mm Hg 09/12/20 25 Blood pressure diastolic 76 mm Hg 025 Height 69 in 09/12/2025 Weight 158.8 lbs 09/12/2025 BMI 23.45 kg/m2 09/12/2025 Encounters Encounter Location Date Provider Diagnosis [facility] [address] [place] [address] 09/12/2025 Chelita Jackson RLQ abdominal pain R10.31 Assessments Encounter Date Diagnosis (ICD Code) Assessment Notes Treatment Notes Treatment Clinical Notes Section Notes 09/12/2025 RLQ abdominal pain (ICD-10 - R10.31) No evidence of infection or visceral injury. Patient agreeable to PT consultation for pain management in order to avoid continued opioid use. Plan Of Treatment Referrals Referral Date Details 09/13/2025 09/13/2025, \Pelvic PT-Post operative pelvic pain Next Appt Details Follow Up: 6 Months, Reason: Provider Name:Chelita Jackson , 10/03/2025 04:00:00 PM, [address], [address], [place], [address], History and Physical Notes * HPI (History of Present Illness) Category Sub-Category Detail Notes Category Not es [employer] Maia Kovacs, a 35-year-old female, came in for a post-operative follow-up due to persistent pelvic pain. She described the pain as deep, pulling, and twisting in the right lower quadrant, which worsens with movement and occasionally leads to vomiting. She reported that her left side feels fine, but the right side limits her activity, allowing only about 30 minutes of movement before the pain becomes severe. She voiced concerns that the pain could indicate something more serious than post-surgical discomfort and is eager to find relief. Maia has tried lidocaine patches without improvement and has visited the emergency room multiple times since her surgery three weeks ago. She is open to pelvic floor therapy and other strategies to manage her symptoms. Serial labs and CT scans have been normal. Examination Category Sub-Category Detail Notes Category Not es General Examination GENERAL APPEARANCE: Well dev eloped, well nourished, alert in no acute distress NEURO/PSYCH: Oriented to person, place, and time. Mood pleasant, normal affect CARDIOPULMONARY: Respiratory effort i s even and unlabored Incision Check Incision(s) Clean dry intact Consultation Request Notes Referral Date Referring Provider Referred Provider Not es 09/13/2025 Chelita Jackson , \Pelvic PT-P ost operative pelvic pain Progress Notes * Maia KOVACS JDOB:[birth year] (35 yo F)Acc No.[id number]:09/12/2025 Progress Note Patient: Maia García Provider: Pavel Jackson MD :1990 A ge:35 Y S ex:Female Date:09/12/2025 Address:[address] [place] [address] Subjective: * Chief Complaints: * 3 wk po * HPI: G YN: Maia Kovacs, a 35-year-old female, came in for a post-operative follow-up due to persistent pelvic pain. She described the pain as deep, pulling, and twisting in the right lower quadrant, which worsens with movement and occasionally leads to vomiting. She reported that her left side feels fine, but the right side limits her activity, allowing only about 30 minutes of movement before the pain becomes severe. She voiced concerns that the pain could indicate something more serious than post-surgical discomfort and is eager to find relief. Maia has tried lidocaine patches without improvement and has visited the emergency room multiple times since her surgery three weeks ago. She is open to pelvic floor therapy and other strategies to manage her symptoms. Serial labs and CT scans have been normal. * Medications: T akingAcetaminophen Extra Strength 500 MG Tablet 2 tablet po every 6 hours Take on schedule for 14 days to prevent post operative pain, then as needed.Baclofen 5 MG Tablet 1 table Orally 3 times a day Estradiol 0.1 MG/24HR Patch Twice Weekly 1 patch to skin Transdermal Two times a Week Gabapentin Iron Lexapro Pantoprazole Sodium Pepcid Vitamin D Taking Acetaminophen Extra Strength 500 MG Tablet 2 tablet po every 6 hours Take on schedule for 14 days to prevent post operative pain, then as needed.Taking Baclofen 5 MG Tablet 1 table Orally 3 times a day Taking Estradiol 0.1 MG/24HR Patch Twice Weekly 1 patch to skin Transdermal Two times a Week Taking Gabapentin Taking Iron Taking Lexapro Taking Pantoprazole Sodium Taking Pepcid Taking Vitamin D Not-Taking/PRNOndansetron Ondansetron HCl 4 MG Tablet 1 tablet po every 8 hours As needed for post operative nauseaoxyCODONE HCl 10 MG Tablet 1 tablet po every 4 hours Polyethylene Glycol 3350 17 GM/SCOOP Powder 1 scoop po daily Use daily for 14 days to prevent post operative constipation. May hold for loose stool. May double dose for severe constipation.Medication List reviewed and reconciled with the patientNot-Taking/PRN Ondansetron Not-Taking/PRN Ondansetron HCl 4 MG Tablet 1 tablet po every 8 hours As needed for post operative nauseaNot-Taking/PRN oxyCODONE HCl 10 MG Tablet 1 tablet po every 4 hours Not-Taking/PRN Polyethylene Glycol 3350 17 GM/SCOOP Powder 1 scoop po daily Use daily for 14 days to prevent post operative constipation. May hold for loose stool. May double dose for severe constipation.Medication List reviewed and reconciled with the patient Objective: * Vitals: B P:120/76mm Hg, Ht: 69 in, Wt:158.8lbs, BMI:23.45Index. * Examination: G eneral Examination: GENERAL APPEARANCE: W ell developed, well nourished, alert in no acute distress. NEURO/PSYCH: O riented to person, place, and time. Mood pleasant, normal affect. CARDIOPULMONARY: R espiratory effort is even and unlabored.? I ncision Check: Incision(s) C lean dry intact. Assessment: * Assessment: 1. R LQ abdominal pain - R10.31 (Primary) Plan: * Treatment: * Follow Up: 6 Months Billing Information: * Visit Code: 22365 Office/Outpatient visit, est patient. * Sign off status: Completed Visit Status: C HK (Check Out) true * Provider: Pavel Jackson MD Date: 1 11/13/2024 Generated for Kay sarkar/Haydee/Wally on: 1 11/24/2024 03:58 PM EST
[2025-09-23] VITALS (8 sets, daily range): BP systolic 109–132; BP diastolic 68–77; PULSE 78–104; RESP 13–22; TEMP 36.6–36.7; O2SAT 97–100; BMI 23.6
--- NOTE | 2025-09-23 15:46 | CT_ITS ---
PROCEDURE INFORMATION: Exam: CTA Chest With Contrast Exam date and time: 09/23/2025 4:56 PM Age: 35 years old Clinical indication: Shortness of breath TECHNIQUE: Imaging protocol: Computed tomographic angiography of the chest with contrast. Exam focused on the arteries. 3D rendering (Not supervised by radiologist): MIP and/or 3D reconstructed images were created by the technologist. Radiation optimization: All CT scans at this facility use at least one of these dose optimization techniques: automated exposure control; mA and/or kV adjustment per patient size (includes targeted exams where dose is matched to clinical indication); or iterative reconstruction. Contrast material: ISOVUE; Contrast volume: 70 ml; Contrast route: INTRAVENOUS (IV); COMPARISON: CT ANGIO CHEST 05/18/2025 1:48 PM FINDINGS: Pulmonary arteries: No CT angiography evidence of pulmonary embolism. Aorta: Unremarkable. No aortic aneurysm. No aortic dissection. Lungs: Unremarkable. No consolidation. No masses. Pleural spaces: Unremarkable. No pneumothorax. No pleural effusion. Heart: Unremarkable. No cardiomegaly. No pericardial effusion. Lymph nodes: Unremarkable. No enlarged lymph nodes. Gallbladder and biliary ducts: There are surgical clips within the gallbladder fossa. Bones/joints: Unremarkable. No acute fracture. Soft tissues: Unremarkable. IMPRESSION: No CT angiography evidence of pulmonary embolism.
--- NOTE | 2025-09-23 15:49 | HMH.EDCP ---
Discharge Plan Disposition Patient Disposition: Home, Self-Care Prescriptions Prescriptions: No Action ipratropium-albuterol 0.5 mg-3 mg(2.5 mg base)/3 mL solution for nebulization inhalation Q6H tizanidine 4 mg tablet 4 - 6 mg PO BID amoxicillin 875 mg tablet 875 mg PO BID Qty: 20 0RF gabapentin 300 mg capsule 300 mg PO Patient Comments: TAKE ONE CAPSULE BY MOUTH EVERY 8 HOURS MAY CAUSE DROWSINESS cyanocobalamin (vitamin B-12) 1,000 mcg/mL solution 1,000 mcg SQ Patient Comments: INJECT 1 ML DIRECTED EVERY 28 DAYS pantoprazole 40 mg tablet,delayed release (DR/EC) 40 mg PO ONCE Patient Comments: TAKE ONE TABLET BY MOUTH TWICE DAILY famotidine [Pepcid] 20 mg Tablet 20 mg PO DAILY ondansetron 4 mg tablet,disintegrating 4 mg PO Q8H 3 Days Qty: 9 0RF Referrals Follow up/Referrals: Michaela Sousa APRN [Primary Care Provider, Medical] - See instructions Activity Restrictions/Add. Instructions Additional Instructions/Restrictions: Please follow-up with your PCP this week for follow-up care and recheck of your potassium. If you develop any new or worsening symptoms, or if you become concerned for your health for any reason, return to the emergency department for evaluation Clinical Impressions Clinical Impression: Atypical chest pain, Shortness of breath Instructions Patient Instructions: DI for Atypical Chest Pain, DI for Shortness of Breath Print Language Print Language: Citizen Of [place] Discharge ED Provider: Farooq Lomax HPI <Carmen Juan (ED), FERNANDO - Last Filed: 09/23/25 18:42> General Chief Complaint: Shortness of Breath/Dyspnea Stated Complaint: pnemonia,short of breath,chest pains Time Seen by Provider: 09/23/25 15:41 Mode of Arrival: Ambulatory Source of Information: Patient Description of Symptoms (Recalled from ER Triage Doc. by RN): Patient reports increased Shortness of Air. Did breathing treatment at home 1 hour ago. Feels like there is an elephant sitting on her chest. Does report having a hysterectomy recently and did have right sided calf muscle pain for a couple of days that went away. States she is afraid she may have a pulmonary embolism. History of Present Illness HPI narrative: 35-year-old female presents to the ED today for shortness of breath, chest pain. She has done a breathing treatment, 325 of aspirin at home. She says that yesterday her lungs hurt, Wednesday she went to her PCP and they gave her a Z-Tank and prednisone and she became worse yesterday. Her SpO2 has been dropping in the 80s at home. She has been trying to do DuoNebs and they are not working. She did tell me that she had a hysterectomy 4 weeks ago. Last week her calves started hurting. They have stopped hurting since she started having lung pain yesterday. She is worried about a PE. She is very anxious and concerned. Related Data Home Medications ?Medication ?Instructions ?Recorded ?Confirmed famotidine 20 mg tablet (Pepcid) 20 mg PO DAILY 05/24/24 08/12/25 cyanocobalamin (vitamin B-12) 1,000 mcg SQ 02/07/25 08/12/25 1,000 mcg/mL injection solution gabapentin 300 mg capsule 300 mg PO 02/07/25 08/12/25 pantoprazole 40 mg tablet,delayed 40 mg PO ONCE 02/07/25 08/12/25 release ipratropium 0.5 mg-albuterol 3 mg ml inhalation Q6H 08/12/25 08/12/25 (2.5 mg base)/3 mL nebulization soln tizanidine 4 mg tablet 4 - 6 mg PO BID 08/12/25 08/12/25 Previous Rx's ?Medication ?Instructions ?Recorded ondansetron 4 mg disintegrating 4 mg PO Q8H 3 days #9 tabs 08/05/25 tablet amoxicillin 875 mg tablet 875 mg PO BID #20 tabs 08/12/25 Allergies Allergy/AdvReac Type Severity Reaction Status Date / Time celecoxib (From Celebrex) Allergy Severe Anaphylaxis Verified 08/12/25 11:02 latex (LATEX) Allergy Severe Anaphylaxis Verified 08/12/25 11:02 coconut Allergy Unknown Anaphylaxis Verified 08/12/25 11:02 Pertussis Vaccines Allergy Unknown Unknown Verified 08/12/25 11:02 (PERTUSSIS VACCINES) allergy reaction pineapple (PINEAPPLE) Allergy Unknown Unknown Verified 08/12/25 11:02 allergy reaction Sulfa (Sulfonamide Allergy Unknown Unknown Verified 08/12/25 11:02 Antibiotics) (SULFA allergy (SULFONAMIDE ANTIBIOTICS)) reaction dicyclomine (From Bentyl) AdvReac Blurry Verified 08/12/25 11:02 Vision ketamine AdvReac Rash Verified 08/12/25 11:02 PFSH <Carmen Juan (ED), GENERAL SCRAP WORKER - Last Filed: 09/23/25 18:42> [facility] Disclaimer: The information contained in this section may have been updated after the patient was seen, as this information can be updated by other users. Medical History URI (upper respiratory infection) Sinusitis Viral upper respiratory infection Liver disease Depression Anxiety History of anemia History of gastroesophageal reflux (GERD) Kidney stone Migraine Surgical History History of tonsillectomy History of cholecystectomy History of section Family History Grandfather Cancer Colon Cancer Mother Cancer Thyroid Cancer Sister Cancer Cervical Cancer Grandmother Cancer Maternal Grandmother-Cervical, Breast and Lung Cancer Social History Smoking Status: Current every day smoker second hand exposure: No alcohol intake: never current occupational status: employed Travel in the last 8 weeks?: None household members: other housing: house 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 current occupational exposures/hazards: No caffeine: Yes Have you lived/traveled outside US in past 30 days?: No Contact w/someone who lives/traveled outside US past 30 days?: No Exposure to someone with infectious disease in past 14 days?: No Do you have a fever (greater than 100.4 F or 38 C)?: Yes Have you tested positive for COVID-19?: No Exposed to someone with COVID-19 in past 14 days?: No Do you have a sore throat?: No Do you have a cough?: No Do you have any weakness?: Yes Do you have any diarrhea?: No Are you experiencing any unusual bleeding?: No Do you have any muscle aches/pain?: No Do you have any abdominal pain?: No Are you experiencing loss of taste or smell?: No Other Medical History Have you received the Flu Vaccine for this season: Yes Have you received the Pneumonia Vaccine: No <Carmen Anayacarlosnm (ED), GENERAL SCRAP WORKER - Last Filed: 09/23/25 18:42> ROS Obtained: Yes Systems reviewed as appropriate & no additional complaints except as documented Constitutional Constitutional: Reports as per HPI Physical Exam <Carmen Juan (ED), GENERAL SCRAP WORKER - Last Filed: 09/23/25 18:42> General General appearance: alert and anxious Head Head exam: normocephalic Eye Eye exam: Present PERRL ENT ENT exam: Present mucous membranes moist Neck Neck exam: Present trachea midline Respiratory Respiratory exam: Present normal lung sounds bilaterally Cardiovascular Cardiovascular exam: Present normal rhythm, tachycardia, normal heart sounds, +S1 and +S2 Extremities Exam Extremities exam: Present full ROM and normal capillary refill Neurological Exam Neurological exam: Present alert and oriented X3 Psychiatric Psychiatric exam: Present anxious Skin Skin exam: Present warm and dry HEART Score <Carmen Anayacarlossusan (ED), GENERAL SCRAP WORKER - Last Filed: 09/23/25 18:42> HEART Score HEART Score assessment performed?: Yes History (anamnesis): Slightly suspicious ECG: Normal Age: <45 years Risk factors: 1-2 risk factors Troponin: </= normal limit HEART Score: 1 <Farooq Lomax MD - Last Filed: 09/23/25 20:22> HEART Score HEART Score: 1 Procedures <Farooq Lomax MD - Last Filed: 09/23/25 20:22> Limited Ultrasound Indication:: Limited cardiac ultrasound Indication: Shortness of breath Identified cardiac views: -Cardiac parasternal long axis -Cardiac parasternal short axis -Cardiac apical four-chamber -Cardiac subxiphoid Findings: -Cardiac activity present -Wall motion grossly normal -Pericardial effusion absent -Right heart strain absent Impression: - From above Images were saved to permanent archive The study was technically adequate CPT: 94365 This study was performed by me, Farooq Lomax MD, and I personally interpreted all images/videos. Based on my clinical judgement, these images were adequate and did not necessitate further imaging. Critical Care <Carmen Anayacarlossusan (ED), GENERAL SCRAP WORKER - Last Filed: 09/23/25 18:42> Critical Care Time Critical Care Time: No Medical Decision Making <Carmen Kilcarlosnm (ED), GENERAL SCRAP WORKER - Last Filed: 09/23/25 18:42> Federico Inquiry Pt receiving controlled substance: No Federico was queried for this patient: No Vital Signs Vital Signs: 09/23/25 15:33 09/23/25 16:01 09/23/25 17:06 Temperature 98.0 F Temperature Source Oral Pulse Rate 97 H 104 H Pulse Rate [Radial] 104 H Respiratory Rate 22 18 19 Blood Pressure 132/68 119/69 Blood Pressure [Right Arm] 115/77 Blood Pressure Mean [Right Arm] 89 Blood Pressure Source [Right Arm] Automatic Cuff Blood Pressure Position [Right Arm] Sitting 02 Sat by Pulse Oximetry 100 98 98 Oxygen Delivery Method Room Air Room Air 09/23/25 17:15 09/23/25 17:30 09/23/25 17:45 Temperature Temperature Source Pulse Rate 97 H 90 89 Pulse Rate [Radial] Respiratory Rate 19 14 Blood Pressure 114/71 Blood Pressure [Right Arm] Blood Pressure Mean [Right Arm] Blood Pressure Source [Right Arm] Blood Pressure Position [Right Arm] 02 Sat by Pulse Oximetry 100 97 98 Oxygen Delivery Method 09/23/25 18:00 Temperature Temperature Source Pulse Rate 78 Pulse Rate [Radial] Respiratory Rate 21 Blood Pressure 109/70 L Blood Pressure [Right Arm] Blood Pressure Mean [Right Arm] Blood Pressure Source [Right Arm] Blood Pressure Position [Right Arm] 02 Sat by Pulse Oximetry 98 Oxygen Delivery Method Lab Data Labs: Lab Results 09/23/25 15:57: SARS-CoV-2 (PCR) Not detected, Influenza A Untype (PCR) Not detected, Influenza Type B (PCR) Not detected 09/23/25 16:13: WBC 13.3 H, RBC 3.79 L, Hgb 10.7 L, Hct 33.2 L, MCV 87.6, MCH 28.2, MCHC 32.2, RDW 13.8, Plt Count 297, MPV 8.9, Neut % (Auto) 77.5, Lymph % (Auto) 14.3, [place] % (Auto) 6.5, Eos % (Auto) 0.7, Baso % (Auto) 0.4, Neut # (Auto) 10.3 H, Lymph # (Auto) 1.9, [place] # (Auto) 0.9, Eos # (Auto) 0.1, Baso # (Auto) 0.1, PT 10.5, INR 0.94, APTT 24.9, Sodium 140, Potassium 2.3 L*, Chloride 106, Carbon Dioxide 22, Anion Gap 14.3, BUN 14, Creatinine 0.60, Estimated Creat Clear 148, Estimated GFR 115, Est GFR ( Amer) 139, Glucose 121 H, Calcium 9.2, Magnesium 1.6, Total Bilirubin 0.3, AST 22, ALT 18, Alkaline Phosphatase 104, Troponin I < 0.01, Total Protein 7.9, Albumin 4.7, Globulin 3.2, Albumin/Globulin Ratio 1.5, Lipase 45 09/23/25 17:36: VBG pH 7.38, VBG pCO2 36.5, VBG pO2 109.0 H, VBG HCO3 21.1 L, VBG Total CO2 22.2 L, VBG O2 Saturation 98.0 H, VBG Base Excess -4.1 L, VBG Lactic Acid 2.8 H 09/23/25 19:10: Troponin I < 0.01 09/23/25 16:13 09/23/25 16:13 Response Orders (Tests/Meds): ED MEDICATIONS Generic Name Dose Route Start Last Admin Trade Name Freq PRN Reason Stop Dose Admin Sodium Chloride 10 ml 09/23/25 17:07 09/23/25 17:09 Sodium Chloride 0.9% 10ml Syr (Rad Only) IV 10/23/25 17:06 10 ml NEEDED PRN Administration Maintain IV Site Discontinued Medications Generic Name Dose Route Start Last Admin Trade Name Freq PRN Reason Stop Dose Admin Albuterol/Ipratropium 9 ml 09/23/25 15:47 09/23/25 16:18 Ipratropium/Albuterol 3 Ml Neb IH 09/23/25 15:48 9 ml ONCE ONE Administration Dexamethasone Sodium Phosphate 10 mg 09/23/25 15:47 09/23/25 16:17 Dexamethasone 4mg/Ml 1ml Vial IV 09/23/25 15:48 10 mg ONCE ONE Administration Hydromorphone HCl 1 mg 09/23/25 17:01 09/23/25 17:16 Hydromorphone 2mg/Ml Syringe IV 09/23/25 17:02 1 mg ONCE ONE Administration Magnesium Sulfate 2 gm in 50 mls @ 50 mls/hr 09/23/25 15:46 09/23/25 17:41 Magnesium Sulfate 2gm/50ml Premix IV 09/23/25 16:45 Infused ONCE ONE Infusion Sodium Chloride 1,000 mls @ 999 mls/hr 09/23/25 18:10 09/23/25 18:25 Sod Chlor 0.9% 1000ml Bag IV 09/23/25 19:10 999 mls/hr .Q1H1M ONE Administration Iopamidol 70 ml 09/23/25 17:07 09/23/25 17:09 Iopamidol-370 (76%);100ml Bottle IV 09/23/25 17:08 70 ml ONCE ONE Administration Morphine Sulfate 4 mg 09/23/25 15:46 09/23/25 16:17 Morphine 4mg/Ml Syringe IV 09/23/25 15:47 4 mg ONCE ONE Administration Ondansetron HCl 4 mg 09/23/25 15:46 09/23/25 16:17 Ondansetron 4mg/2ml Vial IV 09/23/25 15:47 4 mg ONCE ONE Administration Potassium Chloride 60 meq 09/23/25 16:45 09/23/25 17:15 Potassium Chloride 20meq Tab PO 09/23/25 16:46 60 meq ONCE ONE Administration Sodium Chloride 50 ml 09/23/25 17:07 09/23/25 17:09 0.9 % Sodium Chloride 50 Ml Vial IV 09/23/25 17:08 50 ml ONCE ONE Administration ORDERS Category Date Time Status CTA Chest [CT angio chest PE protocol] Stat Cat Scan 09/23/25 15:46 Completed POCUS Point of Care (ER Only) Stat Exams 09/23/25 20:10 Ordered CBC [Complete Blood Count Auto Diff] Stat Lab 09/23/25 16:13 Completed Comprehensive Metabolic Panel Stat Lab 09/23/25 16:13 Completed Lipase Stat Lab 09/23/25 16:13 Completed Magnesium Stat Lab 09/23/25 16:13 Completed PT INR [Prothrombin Time INR] Stat Lab 09/23/25 16:13 Completed PTT [Activated Partial Thrombo Time] Stat Lab 09/23/25 16:13 Completed Rapid PCR Covid and Flu A/B Stat Lab 09/23/25 15:57 Completed Trop I [Troponin I] Stat Lab 09/23/25 16:13 Completed Troponin I Q3H Lab 09/23/25 19:10 Completed Troponin I Q3H Lab 09/23/25 22:00 Ordered Venous Blood Gas Stat RT 09/23/25 17:36 Completed MDM Narrative Medical Decision Narrative: patient is a 35-year-old female presenting to the emergency department for evaluation of shortness of breath, chest pain, wheezing. She is concerned about a PE. Patient is hemodynamically stable and nontoxic-appearing upon arrival, afebrile. Differential diagnosis includes PE, [place], ACS, CAD, viral illness, bronchitis, among others. Workup will be conducted with hematologic labs, specific imaging. Initial inventions include crystalloid bolus, analgesics, antibiotics. Initial workup reviewed by me [hematologic labs are remarkable for:]. [Imaging informally interpreted by me and remarkable for:] [Formal imaging read remarkable for:] Upon repeat evaluation [patient's pain is improved, appears better perfused, appears the same, appears worse, etc.]. Due to this [additional interventions, patient is appropriate for discharge, patient requires admission, etc.]. <Farooq Lomax MD - Last Filed: 09/23/25 20:22> Vital Signs Vital Signs: 09/23/25 15:33 09/23/25 16:01 09/23/25 17:06 Temperature 98.0 F Temperature Source Oral Pulse Rate 97 H 104 H Pulse Rate [Radial] 104 H Respiratory Rate 22 18 19 Blood Pressure 132/68 119/69 Blood Pressure [Right Arm] 115/77 Blood Pressure Mean [Right Arm] 89 Blood Pressure Source [Right Arm] Automatic Cuff Blood Pressure Position [Right Arm] Sitting 02 Sat by Pulse Oximetry 100 98 98 Oxygen Delivery Method Room Air Room Air 09/23/25 17:15 09/23/25 17:30 09/23/25 17:45 Temperature Temperature Source Pulse Rate 97 H 90 89 Pulse Rate [Radial] Respiratory Rate 19 14 Blood Pressure 114/71 Blood Pressure [Right Arm] Blood Pressure Mean [Right Arm] Blood Pressure Source [Right Arm] Blood Pressure Position [Right Arm] 02 Sat by Pulse Oximetry 100 97 98 Oxygen Delivery Method 09/23/25 18:00 Temperature Temperature Source Pulse Rate 78 Pulse Rate [Radial] Respiratory Rate 21 Blood Pressure 109/70 L Blood Pressure [Right Arm] Blood Pressure Mean [Right Arm] Blood Pressure Source [Right Arm] Blood Pressure Position [Right Arm] 02 Sat by Pulse Oximetry 98 Oxygen Delivery Method Lab Data Labs: Lab Results 09/23/25 15:57: SARS-CoV-2 (PCR) Not detected, Influenza A Untype (PCR) Not detected, Influenza Type B (PCR) Not detected 09/23/25 16:13: WBC 13.3 H, RBC 3.79 L, Hgb 10.7 L, Hct 33.2 L, MCV 87.6, MCH 28.2, MCHC 32.2, RDW 13.8, Plt Count 297, MPV 8.9, Neut % (Auto) 77.5, Lymph % (Auto) 14.3, [place] % (Auto) 6.5, Eos % (Auto) 0.7, Baso % (Auto) 0.4, Neut # (Auto) 10.3 H, Lymph # (Auto) 1.9, [place] # (Auto) 0.9, Eos # (Auto) 0.1, Baso # (Auto) 0.1, PT 10.5, INR 0.94, APTT 24.9, Sodium 140, Potassium 2.3 L*, Chloride 106, Carbon Dioxide 22, Anion Gap 14.3, BUN 14, Creatinine 0.60, Estimated Creat Clear 148, Estimated GFR 115, Est GFR ( Amer) 139, Glucose 121 H, Calcium 9.2, Magnesium 1.6, Total Bilirubin 0.3, AST 22, ALT 18, Alkaline Phosphatase 104, Troponin I < 0.01, Total Protein 7.9, Albumin 4.7, Globulin 3.2, Albumin/Globulin Ratio 1.5, Lipase 45 09/23/25 17:36: VBG pH 7.38, VBG pCO2 36.5, VBG pO2 109.0 H, VBG HCO3 21.1 L, VBG Total CO2 22.2 L, VBG O2 Saturation 98.0 H, VBG Base Excess -4.1 L, VBG Lactic Acid 2.8 H 09/23/25 19:10: Troponin I < 0.01 Response Orders (Tests/Meds): ED MEDICATIONS Generic Name Dose Route Start Last Admin Trade Name Freq PRN Reason Stop Dose Admin Sodium Chloride 10 ml 09/23/25 17:07 09/23/25 17:09 Sodium Chloride 0.9% 10ml Syr (Rad Only) IV 10/23/25 17:06 10 ml NEEDED PRN Administration Maintain IV Site Discontinued Medications Generic Name Dose Route Start Last Admin Trade Name Freq PRN Reason Stop Dose Admin Albuterol/Ipratropium 9 ml 09/23/25 15:47 09/23/25 16:18 Ipratropium/Albuterol 3 Ml Neb IH 09/23/25 15:48 9 ml ONCE ONE Administration Dexamethasone Sodium Phosphate 10 mg 09/23/25 15:47 09/23/25 16:17 Dexamethasone 4mg/Ml 1ml Vial IV 09/23/25 15:48 10 mg ONCE ONE Administration Hydromorphone HCl 1 mg 09/23/25 17:01 09/23/25 17:16 Hydromorphone 2mg/Ml Syringe IV 09/23/25 17:02 1 mg ONCE ONE Administration Magnesium Sulfate 2 gm in 50 mls @ 50 mls/hr 09/23/25 15:46 09/23/25 17:41 Magnesium Sulfate 2gm/50ml Premix IV 09/23/25 16:45 Infused ONCE ONE Infusion Sodium Chloride 1,000 mls @ 999 mls/hr 09/23/25 18:10 09/23/25 18:25 Sod Chlor 0.9% 1000ml Bag IV 09/23/25 19:10 999 mls/hr .Q1H1M ONE Administration Iopamidol 70 ml 09/23/25 17:07 09/23/25 17:09 Iopamidol-370 (76%);100ml Bottle IV 09/23/25 17:08 70 ml ONCE ONE Administration Morphine Sulfate 4 mg 09/23/25 15:46 09/23/25 16:17 Morphine 4mg/Ml Syringe IV 09/23/25 15:47 4 mg ONCE ONE Administration Ondansetron HCl 4 mg 09/23/25 15:46 09/23/25 16:17 Ondansetron 4mg/2ml Vial IV 09/23/25 15:47 4 mg ONCE ONE Administration Potassium Chloride 60 meq 09/23/25 16:45 09/23/25 17:15 Potassium Chloride 20meq Tab PO 09/23/25 16:46 60 meq ONCE ONE Administration Sodium Chloride 50 ml 09/23/25 17:07 09/23/25 17:09 0.9 % Sodium Chloride 50 Ml Vial IV 09/23/25 17:08 50 ml ONCE ONE Administration ORDERS Category Date Time Status CTA Chest [CT angio chest PE protocol] Stat Cat Scan 09/23/25 15:46 Completed POCUS Point of Care (ER Only) Stat Exams 09/23/25 20:10 Ordered CBC [Complete Blood Count Auto Diff] Stat Lab 09/23/25 16:13 Completed Comprehensive Metabolic Panel Stat Lab 09/23/25 16:13 Completed Lipase Stat Lab 09/23/25 16:13 Completed Magnesium Stat Lab 09/23/25 16:13 Completed PT INR [Prothrombin Time INR] Stat Lab 09/23/25 16:13 Completed PTT [Activated Partial Thrombo Time] Stat Lab 09/23/25 16:13 Completed Rapid PCR Covid and Flu A/B Stat Lab 09/23/25 15:57 Completed Trop I [Troponin I] Stat Lab 09/23/25 16:13 Completed Troponin I Q3H Lab 09/23/25 19:10 Completed Troponin I Q3H Lab 09/23/25 22:00 Ordered Venous Blood Gas Stat RT 09/23/25 17:36 Completed MDM Narrative Medical Decision Narrative: patient is a 35-year-old female presenting to the emergency department for evaluation of shortness of breath, chest pain, wheezing. She is concerned about a PE. Patient is hemodynamically stable and nontoxic-appearing upon arrival, afebrile. Differential diagnosis includes PE, [place], ACS, CAD, viral illness, bronchitis, among others. Workup will be conducted with hematologic labs, specific imaging. Initial inventions include crystalloid bolus, analgesics, antibiotics. Initial workup reviewed by me [hematologic labs are remarkable for:]. [Imaging informally interpreted by me and remarkable for:] [Formal imaging read remarkable for:] Upon repeat evaluation [patient's pain is improved, appears better perfused, appears the same, appears worse, etc.]. Due to this [additional interventions, patient is appropriate for discharge, patient requires admission, etc.]. Farooq Lomax MD: I was consulted by the AMANDO, and we discussed the complexity of the problems being addressed. I approve the treatment and management plan for this patient's care in the emergency department, thus performing a substantive portion of the medical decision making. Patient's workup shows mild leukocytosis of 13, stable low hemoglobin of 10.7, hematocrit 33.2. Platelets within normal limits. Liver coagulation studies within normal limits. Mildly elevated lactate of 2.8 but VBG otherwise unremarkable nonactionable except for mildly low bicarb of 21.1. Potassium is low at 2.3 but was replaced here in the emergency department. No APOLINAR. Magnesium normal at 1.6. Liver enzymes bilirubin within normal limits. Troponin negative x 2. Lipase normal at 45. CT imaging was interpreted by me personally. No pulmonary embolism or pneumonia or aortic dissection. On reassessment, patient still complains of shortness of breath. I did perform a cardiac echo to evaluate for pericardial effusion, however that was unremarkable. See procedure note below. I offered patient medication to help with anxiety as I do feel that anxiety is likely playing a component, however she declined at this time and states that she has taken hydroxyzine and other meds in the past and did not tolerate them well. I did encourage her to follow with her primary care doctor early this week for recheck of her potassium and follow-up regarding her shortness of breath. Patient does feel comfortable going home at this time. Return precautions were given. All questions were answered. She was then discharged from the emergency department in stable condition peer
--- NOTE | 2025-09-23 15:54 | ECG_ITS ---
APPROVED REPORT Exam: Resting ECG HR:109 bpm ECG Measurements Heart Rate 109 AXES AL 133 P 54 QRSd 88 QRS 64 QT 333 T 37 QTc 397 Conclusion SINUS TACHYCARDIA NONSPECIFIC ST & T-WAVE ABNORMALITY ABNORMAL RHYTHM ECG UNCONFIRMED REPORT Electronically signed by : TERESITA VASQUES, 09/23/2025 18:54:18
--- OUTSIDE RECORDS SUMMARY | 2025-09-23 15:57 | XMS_ITS | Encounter Summary ---
Author Organization [facility] Address [address] [place] [address] Care Team Providers Care Microsoft Dynamics Developer Name Role Phone Michaela Sousa APRN Primary Care Provider + [phone] Encounter Details Date Type Department Care Team (Latest Contact Info) Description 08/28/2025 Travel Social History Tobacco Use Types Packs/Day Years Used Date Smoking Tobacco: Never Passive Smoke Exposure: Never Smokeless Tobacco: Never Alcohol Use Standard Drinks/Week Comments No 0 (1 standard drink = 0.6 oz pur e alcohol) [facility] Utilities Answer Date Recorded In the past 12 months has [employer], gas, oil, or water company threatened to [...] Score 0 05/07/2021 [facility] [place] of Occupat ional Health - Occupational Stress [...] GED or equivalent No 08/13/2025 Preferred Language Dutch 08/13/2025 PHQ-2 Answer Date Recorded Patient Health [...] Visit [facility] [address] [id number] Aminata Nassar MD [address] [id number] documented as of this encounter Visit Diagnoses Not on filedocumented in this encounter Additional Health Concerns Infection Onset Date Last Indicated Resolved Time COVID (History) Comment:Per regional locomotive operator helper for [facility], 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 The last day before reporting a new confirmed COVID-19 would be 12/08/20. -Alida Banda RN 09/09/2020 12/25/2020 documented as of this encounter Care Teams [employer] Dynamics Developer Relationship Specialty Start Date End Date Michaela Sousa APRN [address] [place] [address] [place] [address] PCP - General Internal Medicine 09/04/24 documented as of this encounter
--- OUTSIDE RECORDS SUMMARY | 2025-09-23 15:57 | XMS_ITS | CCD ---
Author Name Interface, [id number] Address [address] [place] [address] Organization [facility] Address [address] [place] [address] Care Team Providers Care General Scrap Worker Name Role Phone Jens Slaughter MD Unavailable Unavailable Reason for Visit [employer] Medications Date Name Route Dose [...]
--- OUTSIDE RECORDS SUMMARY | 2025-09-23 15:57 | XMS_ITS | Encounter Summary ---
Author Organization [facility] Address [address] [place] [address] Care Team Providers Care Baggage Clerk Name Role Phone Michaela Sousa APRN Primary Care Provider + [phone] Encounter Details Date Type Department Care Team (Latest Contact Info) Description 08/25/2025 Travel Social History Tobacco Use Types Packs/Day Years Used Date Smoking Tobacco: Never Passive Smoke Exposure: Never Smokeless Tobacco: Never Alcohol Use Standard Drinks/Week Comments No 0 (1 standard drink = 0.6 oz pur e alcohol) [facility] Utilities Answer Date Recorded In the past 12 months has [employer], gas, oil, or water company threatened to [...] Date Recorded Retired Total Score 0 05/07/2021 [facility] [place] of Occupat ional Health - Occupational Stress [...] things needed for daily living? No 12/10/2024 Murray Depression Scale Answer Date Recorded Murray Depression Scale Total 2 12/22/2024 The thought [...] GED or equivalent No 08/13/2025 Preferred Language Sierra Leonean 08/13/2025 PHQ-2 Answer Date Recorded Patient Health [...] Visit [facility] [address] [phone] Aminata Nassar MD [address] [address] documented as of this encounter Visit Diagnoses Not on filedocumented in this encounter Additional Health Concerns Infection Onset Date Last Indicated Resolved Time COVID (History) Comment:Per regional manager of learning for [facility], 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 The last day before reporting a new confirmed COVID-19 would be 12/08/20. -Alida Banda RN 09/09/2020 12/25/2020 documented as of this encounter Care Teams Baggage Clerk Relationship Specialty Start Date End Date Michaela Sousa APRN [address] [place] [address] [place] [address] PCP - General Internal Medicine 09/04/24 documented as of this encounter
--- OUTSIDE RECORDS SUMMARY | 2025-09-23 15:57 | XMS_ITS | Encounter Summary ---
Author Organization [facility] Address [address] [place] [address] Care Team Providers Care Software Quality Automation Engineer Name Role Phone Lars Michaela KING Primary Care Provider + [phone] Reason for Visit * Reason Comments Med Refill Encounter Details Date Type Department Care Team (Late st Contact Info) Description 07/27/2025 Refill [facility]STR[facility]OLOG[facility] [address] [phone] Aminata Nassar MD [address] [place] [id number] Hyperemesis gravidarum Social History Tobacco Use Types Packs/Day Years Used Date Smoking Tobacco: Never Passive Smoke Exposure: Never Smokeless Tobacco: Never Alcohol Use Standard Drinks/Week Comments No 0 (1 standard drink = 0.6 oz pur e alcohol) [facility] Utilities Answer Date Recorded In the past 12 months has [employer], gas, oil, or water [employer] threatened to shut off services in your [...] 05/07/2021 [facility] of Occupat ional [facility] - Occupational Stress Questionnaire Answer [...] Description 10/31/2025 3:15 PM EST Office Visit [facility] [address] [place] [address] Aminata Nassar MD 1720 [facility] [address] [place] [address] documented as of this encounter Visit Diagnoses Diagnosis Hyperemesis gravidarum Mild hyperemesis gravidarum, unspecified as to episode of care documented in this encounter Additional Health Concerns Infection Onset Date Last Indicated Resolved Time COVID (History) Comment:Per regional front load trash truck driver for [facility], 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 The last day before reporting a new confirmed COVID-19 would be 12/08/20. -Alida Banda RN 09/09/2020 12/25/2020 documented as of this encounter Care Teams Software Quality Automation Engineer Relationship Specialty Start Date End Date Michaela Sousa APRN [address] [place] [id number] PCP - General Internal Medicine 09/04/24 documented as of this encounter
--- OUTSIDE RECORDS SUMMARY | 2025-09-23 15:57 | XMS_ITS | Encounter Summary ---
Author Organization [facility] Address [address] [place] [address] Care Team Providers Care Rehabilitation Case Coordinator Name Role Phone Michaela Sousa APRN Primary Care Provider + [phone] Encounter Details Date Type Department Care Team (Latest Contact Info) Description 08/20/2025 Travel Social History Tobacco Use Types Packs/Day Years Used Date Smoking Tobacco: Never Passive Smoke Exposure: Never Smokeless Tobacco: Never Alcohol Use Standard Drinks/Week Comments No 0 (1 standard drink = 0.6 oz pur e alcohol) [facility] Utilities Answer Date Recorded In the past 12 months has [employer], gas, oil, or water company threatened to [...] Retired Total Score 0 05/07/2021 [facility] [place] of Occupat ional Health - Occupational Stress [...] things needed for daily living? No 12/10/2024 Bronson Depression Scale Answer Date Recorded Bronson Depression Scale Total 2 12/22/2024 The thought [...] GED or equivalent No 08/13/2025 Preferred Language [place] Islander 08/13/2025 PHQ-2 Answer Date Recorded Patient Health [...] Description 10/31/2025 3:15 PM EST Office Visit [facility]STR[facility] [address] [phone] Aminata Nassar MD [address] [address] documented as of this encounter Visit Diagnoses Not on filedocumented in this encounter Additional Health Concerns Infection Onset Date Last Indicated Resolved Time COVID (History) Comment:Per regional alteration inspector for [facility], 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 The last day before reporting a new confirmed COVID-19 would be 12/08/20. -Alida Banda RN 09/09/2020 12/25/2020 documented as of this encounter Care Teams Rehabilitation Case Coordinator Relationship Specialty Start Date End Date Michaela Sousa APRN [address] [place] [address] [place] [address] PCP - General Internal Medicine 09/04/24 documented as of this encounter
--- OUTSIDE RECORDS SUMMARY | 2025-09-23 15:57 | XMS_ITS | Encounter Summary ---
Author Organization [facility] Address [address] [place] [address] Care Team Providers Care Landfill Gas Collection System Operator Name Role Phone Michaela Sousa APRN Primary Care Provider + [phone] Encounter Details Date Type Department Care Team (Latest Contact Info) Description 08/13/2025 Travel Social History Tobacco Use Types Packs/Day Years Used Date Smoking Tobacco: Never Passive Smoke Exposure: Never Smokeless Tobacco: Never Alcohol Use Standard Drinks/Week Comments No 0 (1 standard drink = 0.6 oz pur e alcohol) [facility] Utilities Answer Date Recorded In the past 12 months has [employer], gas, oil, or water company threatened to [...] Date Recorded Retired Total Score 0 05/07/2021 [facility] [place] of Occupat ional Health - Occupational Stress [...] things needed for daily living? No 12/10/2024 [place] Depression Scale Answer Date Recorded [place] Depression Scale Total 2 12/22/2024 The thought [...] Description 10/31/2025 3:15 PM EST Office Visit [facility] [address] [phone] Aminata Nassar MD [address] [address] documented as of this encounter Visit Diagnoses Not on filedocumented in this encounter Additional Health Concerns Infection Onset Date Last Indicated Resolved Time COVID (History) Comment:Per regional assistant vice president for [facility], 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 The last day before reporting a new confirmed COVID-19 would be 12/08/20. -Alida Banda RN 09/09/2020 12/25/2020 documented as of this encounter Care Teams Landfill Gas Collection System Operator Relationship Specialty Start Date End Date Michaela Sousa APRN [address] [place] [address] [facility] [address] PCP - General Internal Medicine 09/04/24 documented as of this encounter
--- OUTSIDE RECORDS SUMMARY | 2025-09-23 15:57 | XMS_ITS | Encounter Summary ---
Author Organization [facility] Address [address] [place] [address] Care Team Providers Care Safety Sitter Name Role Phone Michaela Sousa APRN Primary Care Provider + [phone] Encounter Details Date Type Department Care Team (Latest Contact Info) Description 09/08/2025 Travel Social History Tobacco Use Types Packs/Day Years Used Date Smoking Tobacco: Never Passive Smoke Exposure: Never Smokeless Tobacco: Never Alcohol Use Standard Drinks/Week Comments No 0 (1 standard drink = 0.6 oz pur e alcohol) [facility] Utilities Answer Date Recorded In the past 12 months has [employer], gas, oil, or water company threatened to [...] Date Recorded Retired Total Score 0 05/07/2021 [facility] [place] of Occupat ional Health - Occupational Stress [...] needed for daily living? No 12/10/2024 Vernon Depression Scale Answer Date Recorded [place] Depression Scale Total 2 12/22/2024 The thought [...] GED or equivalent No 08/13/2025 Preferred Language [place] Islander 08/13/2025 PHQ-2 Answer Date Recorded Patient [...] Description 10/31/2025 3:15 PM EST Office Visit [facility] GASTR[facility]ENTER[facility] [address] [phone] Aminata Nassar MD [address] [address] documented as of this encounter Visit Diagnoses Not on filedocumented in this encounter Additional Health Concerns Infection Onset Date Last Indicated Resolved Time COVID (History) Comment:Per regional hopper attendant for [facility], 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 The last day before reporting a new confirmed COVID-19 would be 12/08/20. -Alida Banda RN 09/09/2020 12/25/2020 documented as of this encounter Care Teams Safety Sitter Relationship Specialty Start Date End Date Michaela Sousa APRN [address] [place] [address] [place] [address] PCP - General Internal Medicine 09/04/24 documented as of this encounter
--- OUTSIDE RECORDS SUMMARY | 2025-09-23 15:58 | XMS_ITS | Clinical Summary ---
Author Organization [facility] Address [address] [place] [address] Care Team Providers Care Fulfillment Mail Clerk Name Role Phone SousaMichaela sheehan Juani KING Primary Care Provider [phone] Allergies Active Allergy Reactions Criticality Noted Date [...] or split. 30 tablet 3 Active B Hdgxeis-Ttlbqe-BB (B Complete) tablet Active pantoprazole (ProtoNix) 20 [...] declined 02/25/2023 How often do you attend bahai or hinduism serv ices? Patient declined 02/25/2023 Do you belong to any clubs o r organizations such as bahai groups, unions, fraternal or athletic groups, or [...] Recorded Patient Health Questionnaire-2 Score 4 03/01/2023 [facility] of Occupat ional Health - Occupational [...] place to sleep or slept in a fci (including now)? Patient refused 02/25/2023 PHQ-9 Answer [...] drink first t donovan in the morning (EYE-ASSOCIATE MANAGER) to steady your nerves or to [...] 19+ 3-dose series) 2011 [facility]-Pap Smear 2013 [id number] Vaccine (3 - Pfizer risk series) 06/04/2021 05/07/2021, 04/16/2021 [facility]-Cervical Cancer Screening 2022 [facility]-HPV/Cotest 2022 [facility]-Depression Screening 03/01/2024 03/01/2023, 06/0 01/2023 [facility]-Influenza Vaccine (#1) 05/28/202507/07, 06/07/2018, 07/02/2017, Additional history exists [facility]-Zoster Vaccines (1 of 2) 2042 [facility]-HIV Screening Completed 12/18/2017 [facility]-Hepatitis C Screening Completed 10/17/2020, 05/2018 HPV Vaccines (No Doses Required) Completed [facility]-HIB Vaccines Aged Out No longer e [...] 5:34 AM EDT 01/03/2018 6:18 PM EDT [facility] Provider LAB BLOOD ORDERABLES Final R esult Performing Organization Address [facility] Co de Phone Number SUNQUEST * HIV 1 & 2 Antibody/Antigen Screen (12/18/2017 5:52 AM EDT) HIV 1 Result NONREACTIVE Screening for HIV 1 and 2 antibodies is NONREACTIVE. No confirmatory testing is required. SUNQUEST 12/18/2017 5:52 AM EDT 12/18/2017 6:28 AM EDT Historical Provider LAB BLOOD ORDERABLES Final R esult Performing Organization Address City/State/[facility] Co de Phone Number SUNQUEST from Last 3 Months or Most Recently Relevant to Health Maintenance Insurance [employer] Care Teams Fulfillment Mail Clerk Relationship Specialty Start Date End Date Michaela Sousa APRN [address] [place] [address] PCP - General 07/24/21
--- OUTSIDE RECORDS SUMMARY | 2025-09-23 15:58 | XMS_ITS | Encounter Summary ---
Author Organization [place] [address] Care Team Providers Care College Football Coach Name Role Phone Radha Ordaz LPN Unavailable Unav ailable Encounter Details Date Type Department Care Team (Late st Contact Info) Description 11/02/2018 Lab Requisition [facility] [place] [address] Wendy Emerson MD [address] [place] [phone] Other specified abnormal findings of blood [...] HORMONE -REF LAB (11/02/2018 8:40 AM EST) [facility] ACTH 21 6 - 58 pg/mL 11/04/2018 2:20 PM EST [email or web address] Comment: INTERPRETIVE INFORMATION: Adrenocorticotropic Hormone Some types of synthetic ACTH are not detected by this assay. Access complete set of age- and/or gender-specific reference intervals for this test in the [employer] [facility] Test Directory ([facility]). Performed by [facility], [address] [place] [id number] [email or web address], Robert Restrepo MD, Lab. Director Blood VENOUS BLOOD / Unknown 11/02/2018 8:40 AM EST 11/02/2018 2:17 PM EST us Wendy Emerson MD CHEMISTRY ORDERABLES Fin al Result [facility] [address] [place] [address] documented in this encounter Visit Diagnoses Diagnosis Other specified abnormal findings of blood chemistry documented in this encounter Additional Health Concerns Assessment Noted Time PHQ-9 Depression Total Score: 2 10/07/19 19 4:43 PM EST PHQ-2 Depression Total Score: 2 10/07/19 19 4:43 PM EST documented as of this encounter Care Teams College Football Coach Relationship Specialty Start Date End Date Radha Ordaz LPN Circular Head Saw Operator Licensed Practical Nurse 03/15/20 04/02/20 documented as of this encounter
--- OUTSIDE RECORDS SUMMARY | 2025-09-23 15:58 | XMS_ITS | Data Portability ---
Author Organization [facility] RNODA HobbsS CALLAWAY CLOSED Address [address] [place] [address] Care Team Providers Care White Work Cleaner Name Role Phone MATTHEW RAMSEY Referring Provider Assessment No assessment recorded. Plan of Treatment Reminders Order Date Submit Date Provider Last Modified By Organization Details Last Modified Time Details Appointments NEW PATIENT 2025 03:50P M JULIA FOX MD Not available Not available Not available Lab urinalysi s panel, auto [address] [facility], [address] [place] [address], [address] [place] [address], [address], 11/30/2022 17:16:25 Referral None recorded. Procedures None recorded. Surgeries None recorded. Imaging None recorded. Medication Orders hydrocodo ne 7.5 mg-acetam inophen 325 mg tablet [address] [facility], [address] [place] [address], [id number], 12/01/2022 23:16:21 Patient TargetsNo targets recorded. Patient InstructionsNo instructions recorded. Reason for Referral None Reported. Results Created Date Observation Date Name Description Value Unit Range Abnormal Flag Note LastModifiedBy Organization Detail LastModifiedTime 12/01/19 23 11/30/2022 urina lysis panel , auto Unknown Analyte Clean Catch Not Available [facility] [address], [place], [address], 11/30/2022 15:52:30 12/01/19 23 11/30/2022 urina lysis panel , auto Unknown Analyte Yellow Not Available [facility] [address], [place], [address], 11/30/2022 15:52:30 12/01/19 23 11/30/2022 urina lysis panel , auto Unknown Analyte Clear Not Available [facility] [address], [place], [address], 11/30/2022 15:52:30 12/01/19 23 11/30/2022 urina lysis panel , auto Unknown Analyte 1.015 Not Available [facility] [address], [place], [address], 11/30/2022 15:52:30 12/01/19 23 11/30/2022 urina lysis panel , auto Unknown Analyte 7.0 Not Available [facility] [address], [place], [address], 11/30/2022 15:52:30 12/01/19 23 11/30/2022 urina lysis panel , auto Unknown Analyte Negati ve Not Available [facility] [address], [place], [address], 11/30/2022 15:52:30 12/01/19 23 11/30/2022 urina lysis panel , auto Unknown Analyte Negati ve Not Available [facility] [address], [place], [address], 11/30/2022 15:52:30 12/01/19 23 11/30/2022 urina lysis panel , auto Unknown Analyte Negati ve Not Available [facility] [address], [place], [address], 11/30/2022 15:52:30 12/01/19 23 11/30/2022 urina lysis panel , auto Unknown Analyte Normal Not Available [facility] [address], [place], [address], 11/30/2022 15:52:30 12/01/19 23 11/30/2022 urina lysis panel , auto Unknown Analyte Negati ve Not Available [facility] [address], [place], [address], 11/30/2022 15:52:30 12/01/19 23 11/30/2022 urina lysis panel , auto Unknown Analyte Normal Not Available [facility] [address], [place], [address], 11/30/2022 15:52:30 12/01/19 23 11/30/2022 urina lysis panel , auto Unknown Analyte Negati ve Not Available [facility] [address], [place], [address], 11/30/2022 15:52:30 12/01/19 23 11/30/2022 urina lysis panel , auto Unknown Analyte Negati ve Not Available [facility] [address], [place], [address], 11/30/2022 15:52:30 12/20/19 23 12/18/2022 fluor oscop y (PROC ) No observ ation record ed. [id number] [facility] [address], [place], [address], 12/21/2022 21:32:21 Result Notes None recorded. Problems No Known Problems Medical Equipment None Reported. Allergies Allergen ID Allergen Name Allergen Category Reaction Reaction Severity Criticality Documentation Date Start Date Code Code System Note Provider Name and Address Organization Details Recorded Time 777050 Substance with sulfonami de structure and antibacte rial mechanism of action (substanc e) medicatio n Not available Not available Not available 11/30/2022 64064 8003 SNOMED Honey [facility] 15:51:45 490085 Non-stero idal anti-infl ammatory agent (substanc e) medicatio n Not available Not available Not available 11/30/2022 24258 5008 SNOMED Honey [facility] 15:51:55 427836 Latex (substanc e) environme nt,medica tion Not available Not available Not available 11/30/2022 84651 8007 SNOMED Honey [facility] 15:52:01 670747 coconut extract food,medi cation anaphylax is Not available high 08/22/20252017 27433 48 RxNorm Not Available keegan - [employer] - prod 14:38:51 597594 latex environme nt,medica tion hives Not available high 08/22/20252017 44294 91 RxNorm Not Available keegan - External Data [employer] - prod 14:38:51 748615 pineapple extract food anaphylax is Not available high 08/22/20252017 03633 74 RxNorm Not Available keegan - External Data Service - prod 14:38:51 066190 celecoxib medicatio n Not available Not available high 08/22/20252018 51273 7 RxNorm Celeb cristofer; mica ates ibupr ofen, ketor olac Celeb cristofer; mica ates ibupr ofen, ketor olac Celeb cristofer; mica ates ibupr ofen, ketor olac Celeb cristofer; mica ates ibupr ofen, ketor olac Not Available keegan - External Data Service - prod 14:41:21 076352 coconut oil food,medi cation Not available Not available high 08/22/20252017 22755 39 RxNorm Not Available keegan - External Data Service - prod 14:41:21 162212 ibuprofen medicatio n Not available Not available low 08/22/20252021 5640 RxNorm GI Bleed ing GI Bleed ing Not Available [employer] - prod 14:41:21 557354 iron medicatio n Not available Not available high 08/22/20252022 97672 RxNorm Not Available [employer] - prod 14:41:21 977668 metoclopr amide Not available Not available Not available Not available 08/22/2025 6915 RxNorm unrec ogniz ed react ion (text : Adver se react ion to subst ance, code: 10483 0009) (from exter nal sourc e) Not Available [employer] - prod 14:41:27 972566 coconut allergeni c extract food,medi cation anaphylax is Not available high 08/22/20252017 73077 1 RxNorm Not Available [employer] - prod 14:41:28 531476 dicyclomi ne medicatio n Not available Not available Not available 08/22/20252018 3361 RxNorm Not Available [employer] - prod 14:41:28 461373 pineapple allergeni c extract food,medi cation anaphylax is Not available high 08/22/20252017 82998 5 RxNorm Not Available [employer] - prod 14:41:28 525109 nitroglyc connie medicatio n Not available Not available Not available 08/22/20252018 4917 RxNorm unrec ogniz ed react ion (text : Nause a And Vomit ing, code: 16666 000) (from exter nal sourc e) Not Available [employer] - prod 14:43:01 789636 metoclopr amide hydrochlo ride medicatio n Not available Not available Not available 08/22/20252017 21201 6 RxNorm Twitc hy unrec ogniz ed react ion (text : Other (See Comme nts), code: 49011 003) (from exter nal sourc e) Not Available [employer] - prod 14:43:01 081758 sulfameth oxazole / trimethop rim medicatio n hives Not available Not available 08/22/20252020 74572 RxNorm Not Available [employer] - prod 14:44:55 Medications Name Sig Start Date Stop Date [...] Address Organization Details Last Updated DateTime 11/30/2022 61967.82 g 22.9 kg/m2 175.26 cm [facility] 11/30/2022 15:51:26 Social History None recorded. Functional Status None recorded. Mental Status None recorded. Family History Nothing Reported. Medical History No medical history recorded. Gynecological HistoryNo gynecological history recorded. Obstetrics History GPAL:G 0 P 0 0 0 0 Past Encounters Encounter ID Performer Location Encounter Start Date Encounter Closed Date Diagnosis/Indication Diagnosis SNOMED-CT Code Diagnosis ICD10 Code Diagnosis IMO Codes Diagnosis Note [id number] MILDRED VIDES MD [facility] [address] [place] [address] 11/30/2022 15:19:19 11/30/2022 16:50:57 Urolithiasis 20474165 N20.9 arrange for above Health Concerns Section Related Observation LastModified by Organization Detai ls LastModified Time None Recorded Concern Status LastModified by Organization Details LastModified Time None Recorded Advance Directives Directive None Recorded Payers Insurance Date Sequence Insurance Name Policy Number Policy Interiano Covered Member ID Interiano Member ID Guarantor Name 02/23/2025 1 [facility] [facility] [id number] Maia Ravalli [id number] Maia Ravalli 09/06/2025 1 [facility] Maia Fermín [id number] Maia Ravalli 02/23/2025 1 [facility] [id number] Maia Ravalli [id number] Maia Ravalli Notes Date Note Type Note Provider Name and Address Organization Details Recorded Time 11/30/2022 text/html Here for initial visit for urolithiasis. She passed a stone years ago but now has had right sided back pain and urgency for several weeks. She brought ct scan disc from [facility] for review. No hydro and two tiny 1mm stones in right kidney. The pain is sign. at times. We discussed cysto and right retrograde to assess for missed stone on ct scan. MILDRED VIDES MD [facility] [facility] [place], [address], [facility] 12/01/2022 23:20:23 OBGyn Episode No OBEpisode recorded.
--- OUTSIDE RECORDS SUMMARY | 2025-09-23 15:58 | XMS_ITS | Referral Summary ---
Author Organization [employer] ([place], [place], [place], [place], [place]) Address [address] [place] [address] Care Team Providers Care Dishwasher Preparer Name Role Phone Unavailable Primary Care Provider [...] Advance Directives For more information, please contact: [phone] * Full Code (Latest Code Status on File) Date Activated Date Inactivated Comments 11/11/2022 7:28 AM 11/11/2022 12:16 PM
--- OUTSIDE RECORDS SUMMARY | 2025-09-23 15:58 | XMS_ITS | Encounter Summary ---
Author Organization [place] [address] Care Team Providers Care Door To Door Sales Representative Name Role Phone Radha Ordaz LPN Unavailable Unav ailable Encounter Details Date Type Department Care Team (Late st Contact Info) Description 11/02/2018 Lab Requisition [facility] [place] [address] Wendy Emerson MD [address] [place] [phone] Other specified abnormal findings of blood [...] 19.47 mcg/dL 9 5:29 PM EST PREFERRED [employer] Blood VENOUS BLOOD / Unknown 11/02/2018 9:45 AM EST 11/02/2018 4:09 PM EST Narrative PREFERRED [employer] - 11/02/2018 5:29 PM EST Normal Peak : > 20 ug/dl Wendy Emerson MD CHEMISTRY ORDERABLES Fin al Result Performing Organization Address [facility] de Phone Number [employer] [address] [place] [address] , [place] [address] * CORTISOL 30 MINUTES (11/02/2018 9:15 AM EST) Cortisol 30 Min 17.48 mcg/dL 9 5:35 PM EST [employer] Blood VENOUS BLOOD / Unknown 11/02/2018 9:15 AM EST 11/02/2018 4:09 PM EST Narrative [employer] - 11/02/2018 5:35 PM EST Normal Peak : > 20 ug/dl Wendy Emerson MD CHEMISTRY ORDERABLES Fin al Result Performing Organization Address [facility] Phone Number [employer] [address] [facility] , [place] [address] * CORTISOL BASELINE (11/02/2018 8:40 AM EST) Cortisol Baseline 10.37 mcg/dL 11/02/2018 5:35 PM EST [employer] Blood VENOUS BLOOD / Unknown 11/02/2018 8:40 AM EST 11/02/2018 4:09 PM EST Narrative [employer] - 11/02/2018 5:35 PM EST Ingestion of jose doses of biotin (>5 mg/day) taken within 8 hours of drawing blood sample can interfere with this immunoassay test. Wendy Emerson MD CHEMISTRY ORDERABLES Fin al Result Performing Organization Address [facility] de Phone Number [employer] [facility] [address] [facility] , [place] [address] documented in this encounter Visit Diagnoses Diagnosis Other specified abnormal findings of blood chemistry documented in this encounter Additional Health Concerns Assessment Noted Time PHQ-9 Depression Total Score: 2 10/07/19 19 4:43 PM EST PHQ-2 Depression Total Score: 2 10/07/19 19 4:43 PM EST documented as of this encounter Care Teams Door To Door Sales Representative Relationship Specialty Start Date End Date Radha Ordaz LPN Polyethylene Combiner Licensed Practical Nurse 03/15/20 04/02/20 documented as of this encounter
--- OUTSIDE RECORDS SUMMARY | 2025-09-23 15:59 | XMS_ITS | Clinical Summary ---
Author Organization [facility]BI EDGEWO OD Address [facility] [address] [place], [place] [address] Phone Care Team Providers Care Aquatic Scientist Name Role Phone Unavailable Primary Care Provider [...] a complete record from that organization. b iowtjcs-L-rjofy acid (NEPHROCAP) 1 mg Oral Capsule Take [...] (07/05/2020): Added automatically from request for surgery [id number] Pelvic pain 07/05/2020 Overview (07/05/2020): Added automatically from request for surgery [id number] Scoliosis of thoracic spine 03/09/2019 S/P endometrial [...] Story LPN Medical Devices Implanted Type Area Network Support Technician Device Identifier Shelf Expiration Date Model / Serial / Lot Screw For Bridge Insurance [facility] CHOICE PLUS [facility] CHOICE PLUS [facility] CHOICE PLUS [facility] CHOICE PLUS [facility] CHOICE PLUS * Guarantor: Maia Kovacs Account Type Relation to Patient Date of Phone Billing Address [place] Personal Family Self Advance Directives For more information, please contact: [phone] * Full Code (Latest Code Status on [...]
--- OUTSIDE RECORDS SUMMARY | 2025-09-23 15:59 | XMS_ITS | Clinical Summary ---
Author Organization [email or web address] ([place], [place], [place], [place], [place]) Address [address] [place] [address] Care Team Providers Care Meat Cooler Name Role Phone Unavailable Primary Care Provider [...] Advance Directives For more information, please contact: [phone] * Full Code (Latest Code Status on File) Date Activated Date Inactivated Comments 11/11/2022 7:28 AM 11/11/2022 12:16 PM
--- OUTSIDE RECORDS SUMMARY | 2025-09-23 15:59 | XMS_ITS | Patient Health Record ---
Author Organization [facility] Address [address] [place] [address] Care Team Providers Care Slat Twister Name Role Phone Chelita Jackson Unavailable [phone] HermanSeda Unavailable [phone] Huy Valencia Unavailable [phone] Leah Acosta Unavailable [phone] Georgie Perez Unavailable [phone] Promise Farr Unavailable [phone] Allergies Allergen (clinical drug ingredient) Drug/Non Drug [...] Range Flag Notes *US OB Follow-Up Reviewed date:11/01/2024 03:28:29 PM Interpretation: Performing Lab: Notes/Report: [facility] Transabdominal Obstetric Study Report Name: ROCIO KOVACS Accession/Encounter No:[id number] : 1990 Age: 34 Gender: F Study Date: Nov 01, 2024 Study Time: 10:03 AM Reading Group: Chelita Jackson MD Referring Group: Georgie Perez NP Ordering Phys: Georgie Preez NP Performing User: Renate Duran RDMS Equipment: [...] ROCIO KOVACS 2024-11-01 Page 1 of 1 [facility] - , [facility] B Strep by PCR w/ PCN allergy Reviewed date:11/27/2024 09:52:59 PM Interpretation:Negative Performing Lab: Notes/Report: [facility] Testing performed at: [facility], [address] [place] [address], [place], [address], , Imaging Account Manager: Jean Kebede, PhD Strep Gp B GREYSON+Rflx Negative Negative N vaginal and rectal swab specimen to maximize sensitivity of intrapartum prophylaxis of GBS colonization. streptococcal (GBS) disease specify co-collection of a Reflex susceptibility testing should be performed prior to [place] [employer] (ACOG) guidelines [...] who are considered a high risk for Urine Dip - Analyzer Read Reviewed date:08/30/2025 09:35:24 AM Interpretation:Normal Performing Lab: Notes/Report: GLUCOSE, POST 50 GM GLUCOLA Reviewed date:10/03/2024 03:01:33 PM Interpretation:passed - 82 Performing Lab: Notes/Report: GESTATIONAL GCT 82 65-139 mg/dL Lab spe cimens received at a [facility].?See result details for the performing location information. TREPONEMA PALLIDUM (SYPHILIS ) SCREENING CASCADE Reviewed date:10/04/2024 07:53:59 AM Interpretation:non reactive Performing Lab: Notes/Report: Reactive results will reflex RPR testing. TREPONEMAL AB TOTAL Non-Reactive Non-Reacti Lab specimens received at a [facility].?See result details for the performing location information. TISSUE PATHOLOGY EXAM Reviewed date:12/13/2024 01:05:40 PM Interpretation: Performing Lab: Notes/Report: LAB AP CASE REPORT Surgical Pathology Report Case: [id number] LAB AP CASE REPORT Authorizing Provider : Sdea Sutton MD Collected: 12/10/2024 01:35 PM LAB AP CASE REPORT Ordering Location: [facility] Received: 12/11/2024 06:35 AM LAB AP CASE REPORT LABOR DELIVERY LAB AP CASE REPORT Pathologist: Ignacia Piedra DO LAB AP CASE REPORT Specimen: Fallopian Tubes, Bilateral LAB AP CLINICAL INFORMATION Encounter for sterilization LAB AP FINAL DIAGNOSIS BILATERAL FALLOPIAN TUBES, STERILIZATION: LAB AP FINAL DIAGNOSIS Complete cross-sections of bilateral fallopian tubes identified LAB AP FINAL DIAGNOSIS at 1020 EDT CR LAB AP GROSS DESCRIPTION 1. Fallopian Tubes, Bilateral. CR LAB AP GROSS DESCRIPTION Received in formalin labeled bilateral fallopian tube are 2 intact, undesignated, fimbriated fallopian tubes averaging 9 cm long by 0.8 cm in diameter. Sectioning of each fallopian tube reveals an unremarkable stellate lumen. Fisher Mussel sections of each tube to include the bisected fimbria and full-thickness cross-sections are submitted separately in 1 A- 1B. HDM LAB AP MICROSCOPIC DESCRIPTION The slides are reviewed and demonstrate histopathologic features supporting the above rendered diagnosis. Lab specimens received at a [facility].?See result details for the performing location [...] /100 WBC Lab specimens received at a [facility].?See result details for the performing location information. CBC WITH AUTO DIFFERENTIAL Reviewed date:08/15/2025 08:56:42 AM Interpretation:Anemia, Hb 11.8 Performing Lab: Notes/Report: WBC, CORRECTED 7.74 3.40-10.80 10*3/mm3 ERYTHROCYTES IN BLOOD BY AUTOMATED COUNT 4.25 3.77-5.28 10*6/mm3 HEMOGLOBIN (G/DL) IN BLOOD 11.8 12.0-15.9 g/dL L HEMATOCRIT (%) BY AUTOMATED COUNT 37.9 34.0-46.6 % RBC MCV (FL) BY AUTOMATED COUNT 89.2 79.0-97.0 fL RBC MCH (PG) BY AUTOMATED COUNT 27.8 26.6-33.0 pg RBC MCHC (G/DL) BY AUTOMATED COUNT 31.1 31.5-35.7 g/dL L RBC RDW (%) BY AUTOMATED COUNT 13.2 12.3-15.4 % RDW-SD 43.2 37.0-54.0 fl MEAN PLATELET VOLUME (FL) BY AUTOMATED COUNT 8.9 6.0-12.0 fL PLATELETS BY AUTOMATED COUNT 280 140-450 10*3/mm3 NEUTROPHILS RELATIVE PERCENT BY AUTOMATED COUNT 71.2 42.7-76.0 % LYMPHOCYTES RELATIVE PERCENT BY AUTOMATED COUNT 17.2 19.6-45.3 % L MONOCYTES RELATIVE PERCENT BY AUTOMATED COUNT 8.5 5.0-12.0 % EOSINOPHILS RELATIVE PERCENT BY AUTOMATED COUNT 1.8 0.3-6.2 % BASOPHILS RELATIVE PERCENT BY AUTOMATED COUNT 0.8 0.0-1.5 % IMMATURE GRANULOCYTES RELATIVE PERCENT 0.5 0.0-0.5 % NEUTROPHILS ABSOLUTE COUNT BY AUTOMATED COUNT 5.51 1.70-7.00 10*3/mm3 LYMPHOCYTES ABSOLUTE COUNT BY AUTOMATED COUNT 1.33 0.70-3.10 10*3/mm3 MONOCYTES ABSOLUTE COUNT BY AUTOMATED COUNT 0.66 0.10-0.90 10*3/mm3 EOSINOPHILS ABSOLUTE COUNT BY AUTOMATED COUNT 0.14 0.00-0.40 10*3/mm3 BASOPHILS ABSOLUTE COUNT BY AUTOMATED COUNT 0.06 0.00-0.20 10*3/mm3 IMMATURE GRANULOCYTES ABSOLUTE COUNT 0.04 0.00-0.05 10*3/mm3 NRBC (PER 100 WBCS) 0.0 0.0-0.2 /100 WBC Lab specimens received at a [facility].?See result details for the performing location information. URINALYSIS W/ CULTURE IF IND ICATED Reviewed date:08/15/2025 08:56:42 AM Interpretation:Normal Performing Lab: Notes/Report: In absence of clinical symptoms, the presence of pyuria, bacteria, and/or nitrites on the urinalysis result does not correlate with infection. Urine microscopic not indicated. COLOR OF URINE Yellow Yellow, St CLARITY OF URINE Clear Clear PH OF URINE BY AUTOMATED TEST STRIP 5.5 5.0-8.0 SPECIFIC GRAVITY OF URINE BY AUTOMATED TEST STRIP 1.014 1.005-1.03 GLUCOSE IN URINE BY AUTOMATED TEST STRIP Negative Negative KETONES IN URINE BY AUTOMATED TEST STRIP Negative Negative BILIRUBIN, TOTAL IN URINE BY AUTOMATED TEST STRIP Negative Negative HEMOGLOBIN IN URINE BY AUTOMATED TEST STRIP Negative Negative PROTEIN IN URINE BY AUTOMATED TEST STRIP Negative Negative LEUKOCYTE ESTERASE IN URINE BY AUTOMATED TEST STRIP Negative Negative NITRITE IN URINE BY AUTOMATED TEST STRIP Negative Negative UROBILINOGEN IN URINE BY AUTOMATED TEST STRIP 0.2 E.U./dL 0.2 - 1.0 Lab specimens received at a [facility].?See result details for the performing location information. TISSUE PATHOLOGY EXAM Reviewed date:08/21/2025 02:37:55 PM Interpretation:Benign uterus, cervix, ovaries / endometriosis Performing Lab: Notes/Report: LAB AP CASE REPORT Surgical Pathology Report Case: [id number] LAB AP CASE REPORT Authorizing Provider : Chelita Jackson MD Collected: 08/20/2025 10:15 AM LAB AP CASE REPORT Ordering Location: [facility] Received: 08/20/2025 11:21 AM LAB AP CASE REPORT OR LAB AP CASE REPORT Pathologist: Wade Lawler MD LAB AP CASE REPORT Specimens: 1) - Peritoneum, Peritoneal Lesion For Permanent LAB AP CASE REPORT 2) - Uterus with Cervix, Bilateral Tubes and Ovaries, in formalin LAB CLINICAL INFORMATION Endometriosis LAB AP FINAL DIAGNOSIS PERITONEAL LESION, BIOPSY: LAB AP FINAL DIAGNOSIS Endometriosis LAB AP FINAL DIAGNOSIS 2. UTERUS, CERVIX, BILATERAL OVARIES AND FALLOPIAN TUBES, HYSTERECTOMY WITH BILATERAL SALPINGO-OOPHORECTOMY: LAB AP FINAL DIAGNOSIS Benign cervix with mild chronic cervicitis LAB AP FINAL DIAGNOSIS Benign endometrial glands and stroma LAB AP FINAL DIAGNOSIS Benign bilateral ovaries LAB AP FINAL DIAGNOSIS No fallopian tubes grossly or histologically identified LAB FINAL DIAGNOSIS Negative for dysplasia or malignancy LAB FINAL DIAGNOSIS at 1223 EST [facility] GROSS DESCRIPTION 1. Peritoneum. [facility] GROSS DESCRIPTION Received in formalin labeled peritoneal lesion for permanent are multiple fragments of yellow-pink, ragged fibroadipose tissue aggregating 1.2 x 1.2 x 0.4 cm submitted entirely, as received in 1A. [facility] GROSS DESCRIPTION 2. Uterus with Cervix, Bilateral Tubes and Ovaries. [facility] GROSS DESCRIPTION Received in formalin labeled uterus with cervix, [...] 2.5 x 2 x 1.9 cm and [facility] GROSS DESCRIPTION sectioning reveals murillo-pink, unremarkable stroma. The proximal left fallopian tube is 9.4 cm long by 0.6 cm in diameter and sectioning reveals a questionable lumen. Fisher Mussel sections are submitted as follows: [facility] AP GROSS DESCRIPTION 2A: Anterior and posterior cervix [facility] GROSS DESCRIPTION 2B: Full-thickness anterior endomyometrium [facility] GROSS DESCRIPTION 2C: Full-thickness posterior endomyometrium [facility] GROSS DESCRIPTION 2D: Right ovary [facility] GROSS DESCRIPTION 2E: Left ovary and possible left fallopian tube HDM LAB AP MICROSCOPIC DESCRIPTION The slides are reviewed and demonstrate histopathologic features supporting the above rendered diagnosis. Lab specimens received at a [facility].?See result details for the performing location information. CBC WITH AUTO DIFFERENTIAL Reviewed date:08/30/2025 09:35:24 AM Interpretation:Normal Performing Lab: Notes/Report: WBC, CORRECTED 12.21 3.40-10.80 10*3/mm3 H ERYTHROCYTES IN BLOOD BY AUTOMATED COUNT 4.20 3.77-5.28 10*6/mm3 HEMOGLOBIN (G/DL) IN BLOOD 11.9 12.0-15.9 g/dL L HEMATOCRIT (%) BY AUTOMATED COUNT 37.0 34.0-46.6 % RBC MCV (FL) BY AUTOMATED COUNT 88.1 79.0-97.0 fL RBC MCH (PG) BY AUTOMATED COUNT 28.3 26.6-33.0 pg RBC MCHC (G/DL) BY AUTOMATED COUNT 32.2 31.5-35.7 g/dL RBC RDW (%) BY AUTOMATED COUNT 12.6 12.3-15.4 % RDW-SD 40.5 37.0-54.0 fl MEAN PLATELET VOLUME (FL) BY AUTOMATED COUNT 9.1 6.0-12.0 fL PLATELETS BY AUTOMATED COUNT 320 140-450 10*3/mm3 NEUTROPHILS RELATIVE PERCENT BY AUTOMATED COUNT 77.1 42.7-76.0 % H LYMPHOCYTES RELATIVE PERCENT BY AUTOMATED COUNT 12.1 19.6-45.3 % L MONOCYTES RELATIVE PERCENT BY AUTOMATED COUNT 6.5 5.0-12.0 % EOSINOPHILS RELATIVE PERCENT BY AUTOMATED COUNT 3.2 0.3-6.2 % BASOPHILS RELATIVE PERCENT BY AUTOMATED COUNT 0.7 0.0-1.5 % IMMATURE GRANULOCYTES RELATIVE PERCENT 0.4 0.0-0.5 % NEUTROPHILS ABSOLUTE COUNT BY AUTOMATED COUNT 9.42 1.70-7.00 10*3/mm3 H LYMPHOCYTES ABSOLUTE COUNT BY AUTOMATED COUNT 1.48 0.70-3.10 10*3/mm3 MONOCYTES ABSOLUTE COUNT BY AUTOMATED COUNT 0.79 0.10-0.90 10*3/mm3 EOSINOPHILS ABSOLUTE COUNT BY AUTOMATED COUNT 0.39 0.00-0.40 10*3/mm3 BASOPHILS ABSOLUTE COUNT BY AUTOMATED COUNT 0.08 0.00-0.20 10*3/mm3 IMMATURE GRANULOCYTES ABSOLUTE COUNT 0.05 0.00-0.05 10*3/mm3 NRBC (PER 100 WBCS) 0.0 0.0-0.2 /100 WBC Lab specimens received at a [facility].?See result details for the performing location information. BASIC METABOLIC PANEL Reviewed date:08/30/2025 09:35:24 AM Interpretation:Normal Performing Lab: Notes/Report: GFR Categories in Chronic Kidney Disease (CKD) [...] does not include race as a factor GLUCOSE RANDOM 92 65-99 mg/dL UREA NITROGEN MG/DL IN SER/PLAS 8.0 6.0-20.0 mg/dL CREATININE MG/DL IN SER/PLAS 0.70 0.57-1.00 mg/dL SODIUM MMOL/L IN SER/PLAS 136 136-145 mmol/L POTASSIUM MMOL/L IN SER/PLAS 3.9 3.5-5.2 mmol/L CHLORIDE 100 98-107 mmol/L CO2 21.7 22.0-29.0 mmol/L L CALCIUM MG/DL IN SER/PLAS 9.3 8.6-10.5 mg/dL BUN / CREAT RATIO 11.4 7.0-25.0 ANION GAP 14.3 5.0-15.0 mmol/L EGFR CKD-EPI 117.3 >60.0 mL/min/1.73 Lab specimens received at a [facility].?See result details for the performing location [...] 140-450 10*3/mm3 Lab specimens received at a [facility].?See result details for the performing location information. Uric Acid, Serum Reviewed date:11/01/2024 02:12:09 PM Interpretation: Performing Lab: Notes/Report: LDH Reviewed date:11/01/2024 02:11:41 PM Interpretation: Performing Lab: Notes/Report: Comprehensive Metabolic Pane l (CMP) Reviewed date:11/01/2024 03:32:55 PM Interpretation:Normal Performing Lab: Notes/Report: Normal CBC Reviewed date:11/01/2024 02:12:26 PM Interpretation: Performing Lab: Notes/Report: ANTIBODY SCREEN Reviewed date:10/03/2024 03:20:01 PM Interpretation:negative Performing Lab: Notes/Report: ANTIBODY SCREEN Negative Lab speci mens received at a [facility].?See result details for the performing location information. *US Pelvis Complete Transabd ominal/Vaginal (Non-OB) Reviewed date:06/22/2025 01:09:37 PM Interpretation: Performing Lab: Notes/Report: [facility] Transvaginal Pelvic Study Report Name: ROCIO KOVACS Accession/Encounter No:[id number] Procedure/Order ID: [id number] : 1990 Age: 35 Gender: F Study Date: Jun 20, 2025 Study Time: 01:48 PM Reading Group: Seda Sutton MD Referring Group: Seda Sutton MD Ordering Phys: Seda Sutton MD Toll Bridge Attendant: Marlin Rodriguez RDMS Equipment: Affiniti 30 Study [...] 1 of 1 [facility] - , [facility] Reason For Referral Reason \Pelvic PT-Post oper ative pelvic pain Diagnosis 1 RLQ abdominal pain ( R10.31) Referral Organization [facility] Referring Provider First Name Chelita Referring Provider Last Name Renetta Referring Provider Speciality OB - Gynec ology Referred Provider Specialty Physical The rapist General Notes Antonia Moulton 09/13 11:06:55 AM EST >faxed to [facility] Referral Priority Routine Medications Medication SIG (Take, Route, Frequency, Duration) Notes Start Date End Date Status oxyCODONE HCl 10 MG Tablet 1 tablet po every 4 hours; Duration: 2 days 09/04/2025 Not-Taking/PRN Pantoprazole Sodium Active Iron Active Lexapro Active Ondansetron 12/13/2018 Not-Gus ing/PRN Ondansetron HCl 4 MG Tablet 1 tablet po every 8 hours; Duration: 3 days As needed for post operative nausea 08/13/2025 Not-Taking/PRN Acetaminophen Extra Strength 500 MG Tablet 2 tablet po every 6 hours; Duration: 14 days Take on schedule for 14 days to prevent post operative pain, then as needed. 08/13/2025 Active Polyethylene Glycol 3350 17 GM/SCOOP Powder 1 scoop po daily; Duration: 14 days Use daily for 14 days to prevent post operative constipation. May hold for loose stool. May double dose for severe constipation. 08/13/2025 Not-Taking/ PRN Baclofen 5 MG Tablet 1 table Orally 3 times a day; Duration: 7 days 09/07/2025 Active Vitamin D Active Estradiol 0.1 MG/24HR Patch Twice Weekly 1 patch to skin Transdermal Two times a Week; Duration: 84 days 08/13/2025 Active Gabapentin 12/12/2018 Active Pepcid Active Social History Tobacco Use: Social History [...] Domestic violence: No Do you have any jew, m oral, or cultural beliefs or customs that your provider should know about? No Would you object to blood products in the event of an emergency? No Problems Problem Type SNOMED Code ICD Code Onset Dates Problem Status W/U Status Risk Notes Problem Endometriosis (073767553) Endometriosis (N80.9) Active confirmed Problem Female urinary stress incontinence (30889093) ELIZABETH (stress urinary incontinence, female) (N39.3) Active confirmed Problem Chronic anemia (858263630) Chronic anemia (D64.9) Active confirmed Problem Postoperative pain (880521899) Postoperative pain (G89.18) Active confirmed Problem History of gastrointestinal bleed (685600719) History of GI bleed (Z87.19) Active confirmed Problem Second trimester (86498405) Encounter for supervision of other normal , second trimester (Z34.82) Active confirmed Problem Excessive vomiting (88338650) Excessive vomiting (O21.9) 021 Active confirmed Nausea and vomiting in Problem Genetic mutation (finding) (95467129) 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) Active confirmed Problem History of section (644256507) History of delivery (Z98.891) Active confirmed Problem Sterilization requested (situation) (932224564) Request for sterilization (Z30.2) Active confirmed Problem Abnormal uterine bleeding (78161741902777) Abnormal uterine bleeding (N93.9) Active confirmed Problem History of hemorrhage (034841304) History of hemorrhage (Z87.59) Active confirmed Problem Endometrioma (578936292) Endometrioma (N80.129) Active confirmed Vital Signs Blood pressure diastolic 76 mm Hg 09/12/2025 Height 69 in 09/12/2025 Blood pressure systolic 120 mm Hg 09/12/2025 Weight 158.8 lbs 09/12/2025 BMI 23.45 kg/m2 09/12/2025 Encounters Encounter Location Date Provider Diagnosis [facility] [address] [facility] [address] [place] [address] 10/04/2024 [facility] [address] [facility] [address] [place] [address] 11/30/2024 [facility] [address] [facility] [facility] [address] [place] [address] 12/01/2024 [facility] [address] [facility] [address] [place] [address] 12/13/2024 [facility] [address] [facility] [facility] [address] [address] [place] [address] 12/18/2024 [facility] Encounter for routin e follow-up Z39.2 [facility] [address] [facility] [address] [address] [place] [address] 01/10/2025 [facility] [address] [facility] [address] [place] [address] 06/18/2025 [facility] Pelvic pain R10.2 [facility] [address] [facility] [address] [place] [address] 08/31/2025 Chelita Jackson [facility] [address] [facility] [address] [place] [address] 09/01/2025 Georgie Perez Post-operative pain G89.18 [facility] [address] [place] [address] 09/07/2025 Chelita Jackson [facility] [address] [place] [address] 09/07/2025 Promise Farr [facility] [address] [place] [address] 11/22/2024 [facility] [address] [place] [address] 12/12/2024 [facility] [address] [place] [address] 12/13/2024 [facility] [address] [place] [address] 12/14/2024 [facility] [address] [place] [address] 12/14/2024 [facility] [address] [place] [address] 12/14/2024 [facility] [address] [place] [address] 12/26/2024 [facility] Abnormal uterine bleeding N93.9 [facility] [address] [place] [address] 12/26/2024 [facility] [address] [place] [address] 12/28/2024 [facility] [address] [place] [address] 12/31/2024 [facility] [address] [place] [address] 01/15/2025 [facility] [address] [place] [address] 06/28/2025 Seda Sutton [facility] [address] [facility] [address] [place] [address] 09/08/2025 Promise Farr [facility] [address] [facility] [address] [place] [address] 09/17/2025 Georgie Perez [facility] [address] [facility] [address] [place] [address] 06/20/2025 Seda Sutton Endometriosis N80.9 ; Pelvic pain R10.2 ; ELIZABETH (stress urinary incontinence, female) N39.3 and Endometrioma N80.129 [facility] [address] [facility] [facility] [address] [place] [address] 08/13/2025 Chelita Fuson Endometriosis N80.9 ; Endometrioma N80.129 ; History of GI bleed Z87.19 and Pre-op evaluation Z01.818 [facility] [address] [facility] [address] [place] [address] 12/27/2024 Seda Sutton Encounter for routin e follow-up Z39.2 and Encounter for screening for maternal depression Z13.32 [facility] [address] [facility] [address] [place] [address] 10/03/2024 Valencia Son Encounter for supervision of other normal , third trimester Z34.83 and 28 weeks gestation of Z3A.28 [facility] [address] [facility] [address] [place] [address] 10/17/2024 Seda Herman 30 weeks gestation o f Z3A.30 ; Encounter for supervision of other normal , third trimester Z34.83 and Hyperemesis gravidarum O21.0 [facility] [address] [facility] [address] [place] [address] 11/01/2024 Georgie Perez Encounter for supervision of other normal , third trimester Z34.83 and 32 weeks gestation of Z3A.32 [facility] [address] [facility] [address] [place] [address] 11/14/2024 Seda Sutton 34 weeks gestation o f Z3A.34 ; Encounter for supervision of other normal , third trimester Z34.83 and labor without delivery O60.00 [facility] [address] [facility] [address] [place] [address] 11/23/2024 Seda Sutton Other specified screening Z36.89 [facility] [address] [facility] [facility] [address] [place] [address] 11/28/2024 Georgie Perez Encounter for supervision of other normal , third trimester Z34.83 and 36 weeks gestation of Z3A.36 [facility] [address] [place] [address] 11/30/2024 Seda Sutton 36 weeks gestation o f Z3A.36 ; Encounter for supervision of other normal , third trimester Z34.83 and Uterine contractions O47.9 [facility] [address] [facility] [address] [place] [address] 12/05/2024 Seda Sutton 37 weeks gestation o f Z3A.37 and Encounter for supervision of other normal , third trimester Z34.83 [facility] [address] [facility] [address] [place] [address] 08/21/2025 Chelita Fuson Post-operative pain G89.18 [facility] [address] [place] [address] 08/28/2025 Chelita Fuson Post-operative pain G89.18 [facility] [address] [facility] [address] [place] [address] 09/04/2025 Chelita Fuson Postoperative pain G89.18 [facility] [address] [place] [address] 09/12/2025 Chelita Jackson RLQ abdominal pain R10.31 [facility] [address] [facility] [address] [place] [address] 11/01/2024 Georgie Perez Encounter for supervision of other normal , third trimester Z34.83 [facility] [address] [facility] [address] [place] [address] 06/20/2025 Seda Sutton Pelvic pain R10.2 [facility] [address] [place] [address] 08/20/2025 Chelita Jackson [facility] [address] [place] [address] 12/10/2024 Sedaorlando Sutton Assessments Encounter Date Diagnosis (ICD Code) [...] , third trimester (ICD-10 - Z34.83) 11/01/2024 Encounter for supervision of other normal , third trimester (ICD-10 - Z34.83) 11/01/2024 32 weeks gestation of (ICD-10 - Z3A.32) 11/01/2024 Encounter for supervision of other normal , third trimester (ICD-10 - Z34.83) 11/23/2024 Other specified screening (ICD-10 - Z36.89) 11/30/2024 36 weeks gestation of (ICD-10 - Z3A.36) 11/30/2024 Encounter for supervision of other normal , third trimester (ICD-10 - Z34.83) 10/17/2024 30 weeks gestation of (ICD-10 - [...] scheduled. * Visit scheduled to address immediate concerns/iss ues identified today. * Referral to support. * Reviewed glucose screening and scheduled. 12/26/2024 Abnormal uterine bleeding (ICD-10 - N93.9) 06/20/2025 Endometriosis (ICD-10 - N80.9) known h/o endometriosis and s/p laparoscopies. She is done childbearing and desires definitive management with TRH/BSO. Surgical risks reviewed. Recovery time of 6wks reviewed. Will schedule. 06/18/2025 Pelvic pain (ICD-10 - R10.2) 06/20/2025 Pelvic pain (ICD-10 - R10.2) 08/13/2025 Endometriosis (ICD-10 - N80.9) 08/13/2025 Endometrioma (ICD-10 - N80.129) 08/21/2025 Post-operative pain (ICD-10 - G89.18) No evidence of viceral injury or internal bleeding. Precautions reviewed. 08/28/2025 Post-operative pain (ICD-10 - G89.18) 09/01/2025 Post-operative pain (ICD-10 - G89.18) 09/04/2025 Postoperative pain (ICD-10 - G89.18) Patient instructed to break tablets into halves and plan to discontinue by end of week. Keep regularly scheduled post op appointment next week. 09/12/2025 RLQ abdominal pain (ICD-10 - R10.31) No evidence of infection or visceral injury. Patient agreeable to PT consultation for pain management in order to avoid continued opioid use. 06/20/2025 Pelvic pain (ICD-10 - R10.2) see above 08/13/2025 History of GI bleed (ICD-10 - Z87.19) NSAID related. 06/20/2025 ELIZABETH (stress urinary incontinence, female) (ICD-10 - N39.3) reports h/o bladder sling. Will refer to urogyn. Discussed possible urethral bulking agents as next step 12/27/2024 Encounter for screening for maternal depression (ICD-10 - Z13.32) 11/14/2024 labor without delivery (ICD-10 - O60.00) 10/17/2024 Hyperemesis gravidarum (ICD-10 - O21.0) 11/30/2024 Uterine contractions (ICD-10 - O47.9) 08/13/2025 Pre-op evaluation (ICD-10 - Z01.818) Patient's [...] post operative medications, wound care and activity. 06/20/2025 Endometrioma (ICD-10 - N80.129) desires BSO for definitive mangement of endometriosis 08/13/2025 Other Completed [place] [employer] Treating Practitioner Verification form. Total time spent caring for the patient today 30 minutes. This includes time spent before the visit reviewing the chart, time spent during the visit, time spent after the visit on documentation, and does not include procedure or preventative care time. 08/28/2025 Other No physical exam findings suggestive of infection or visceral injury. Further evaluation with labs as above. Precautions reviewed. Plan Of Treatment Next Appt Details Provider Name:Chelita Jackson , 10/03/2025 04:00:00 PM, [address], [address], [place], [address], Insurance Providers Payer Name Payer Address Payer Phone Subscriber Number Group Number Insured Name Patient Relationship to Insured Coverage Start Date Coverage End Date [facility] [address] [address] [place], [place] [id number] Rocio Kovacs Self - patient is the [...] Laparoscopy, Fulguration and Excision of Lesions 08/21/25 Hospitalization History Reason Date(Month/Year) labor and delivery
--- OUTSIDE RECORDS SUMMARY | 2025-09-23 15:59 | XMS_ITS | Clinical Summary ---
Author Organization [facility] Address [address] [place] [address] Care Team Providers Care Beam House Inspector Name Role Phone Lars Michaela KING Primary Care Provider + [phone] Allergies Active Allergy Reactions Criticality Noted Date [...] As Needed for Constipation. 60 capsule 1 5 10:53 AM EDT 12/14/19 25 Active simethicone (MYLICON) 80 MG chewable tablet Chew 1 tablet 4 (Four) Times a Day As Needed for Flatulence. 30 tablet 5 12:41 PM EDT 12/14/19 25 Active polyethylene glycol (MIRALAX) 17 g packet Take 17 g by mouth Daily. 100 each 02/17/20 25 Active sodium phosphate (FLEET) 7-19 GM/118ML ADULT enema Insert 1 enema into the rectum Every 6 (Six) Hours As Needed (constipation ). 4 each 02/17/20 25 Active cyclobenzaprine (FLEXERIL) 10 MG tablet Take 1 tablet by mouth 3 times a day. 02/23/20 25 Active gabapentin (NEURONTIN) 300 MG capsule Take 1 capsule by mouth 3 (Three) Times a Day. Active pantoprazole (PROTONIX) 40 MG EC tabletIndications :Hyperemesis gravidarum Take 1 tablet by mouth 2 (Two) Times a Day. 180 tablet 3 06/05/20 25 Active ondansetron ODT (ZOFRAN-ODT) 4 MG disintegrating tabletIndications :Hyperemesis gravidarum DISSOLVE 2 TABLETS UNDER THE TONGUE EVERY 8 HOURS NEEDED FOR NAUSEA AND VOMITING 270 tablet 3 07/27/20 25 Active tiZANidine (ZANAFLEX) 4 MG tablet take 1 TO 1 AND 1/2 TABLETS BY MOUTH TWICE DAILY 07/04/20 25 Active ipratropium-albut herminia (DUO-NEB) 0.5-2.5 mg/3 ml nebulizer INHALE THE CONTENTS OF 1 VIAL VIA NEBULIZER EVERY 6 HOURS 06/27/20 25 Active naloxone (NARCAN) 4 MG/0.1ML nasal spray Administer 1 spray into the nostril(s) as directed by provider As Needed for Opioid Reversal. Call 911. Don't prime. [place] in 1 nostril for overdose. Repeat in 2-3 minutes in other nostril if no or minimal breathing/res ponsiveness. 1 each 08/25/20 25 Active oxyCODONE-acetami nophen (PERCOCET) 10-325 MG per tabletIndications :Lower abdominal pain,History of recent surgery Take 1 tablet by mouth Every 6 (Six) Hours As Needed for Severe Pain. 12 tablet 08/25/20 25 Active oxyCODONE (Roxicodone) 5 MG immediate release tabletIndications :Right lower quadrant abdominal pain Take 2 tablets by mouth Every 6 (Six) Hours As Needed for Severe Pain. 12 tablet 09/08/20 25 Active lidocaine (LIDODERM) 5 % Place 1 patch on the skin as directed by provider Daily. Remove & Discard patch within 12 hours or as directed by MD 30 patch 4 12/13/20 25 Active oxyCODONE-acetami nophen (PERCOCET) 10-325 MG per tabletIndications :Lower abdominal pain,History of recent surgery Take 1 tablet by mouth Every 6 (Six) Hours As Needed for Severe Pain. 12 tablet 08/25/20 25 2024 Discontinued naloxone (NARCAN) 4 MG/0.1ML nasal spray Administer 1 spray into the nostril(s) as directed by provider As Needed for Opioid Reversal. Call 911. Don't prime. [place] in 1 nostril for overdose. Repeat in 2-3 minutes in other nostril if no or minimal breathing/res ponsiveness. 1 each 08/25/20 25 2024 Discontinued Active Problems Problem Noted Date Diagnosed Date Endometriosis determined by laparoscopy 07/23/20 Hematemesis 05/16/2025 S/P section 12/10/2024 Third trimester [...] (09/28/2018): Added automatically from request for surgery [id number] RLQ abdominal pain 09/22/2018 Overview (09/28/2018): Added automatically from request for surgery [id number] B12 deficiency 09/22/2018 Overview (09/28/2018): Added automatically from request for surgery [id number] Chronic anemia 09/18/2018 Narcotic habituation, continuous 09/17/2018 Anxiety disorder 05/12/2018 Vocal cord dysfunction 05/10/2018 Stridor 2018 Respiratory distress 05/07/2018 Moderate persistent asthma with acute exacerbati on 05/07/2018 Chronic nausea 05/07/2018 Epigastric abdominal pain 05/07/2018 Overview (05/12/2018): Added automatically from request for surgery [id number] Generalized abdominal pain 12/09/2017 Resolved Problems Problem Noted Date Diagnosed Date Resolved Date ROM (rupture of membranes), premature 12/10/2024 12/10/2024 Hematemesis 05/16/2022 05/18/2022 uterine contractions in third trimester, antepartum 04/24/2021 05/17/2021 Decreased movement 02/05/2021 11/20/2020 05/17/2021 Overview (11/20/2020): cfDNA Acute dehydration 12/14/2019 10/16/2020 Influenza B 12/14/2019 10/16/2020 Drug-induced constipation 09/22/2018 Overview (09/28/2018): Added automatically from request for surgery [id number] Non-cardiac chest pain 09/17/201810/16 Hypokalemia 09/17/2018 09/19/2018 Hypomagnesemia 09/17/2018 09/19/2018 Leukocytosis 05/07/2018 05/12/2018 Elevated liver enzymes 02/27/201810/16 Intractable nausea and vomiting 02/27/2018 03/01/2018 Intractable cyclical vomiting with nausea 02/27/2018 03/01/2018 Encounters Date Type Department Care Team Description 09/08/2025 10:34 AM EST - 09/08/2025 2:48 PM EST Emergency [facility] [address] [place] [address] Gorge Blanco MD Lower abdominal pain (Primary Dx); Right lower quadrant abdominal pain Discharge Disposition: Home or Self Care 09/08/2025 Travel 08/28/2025 1:55 PM EST Lab [facility] [address] [place] [address] Post-op pain 08/28/2025 Travel 08/25/2025 4:28 PM EST - 08/25/2025 7:45 PM EST Emergency [facility] [address] [place] [address] Kalin Morales DO Lower abdominal pain (Primary Dx); History of recent surgery Discharge Disposition: Home or Self Care 08/25/2025 Travel 08/20/2025 9:12 AM EST Anesthesia Event [facility] [address] [place] [address] Darrell Iyer Jr., MD 08/20/2025 8:54 AM EST - 08/20/2025 10:47 AM EST Surgery [facility] [address] [place] [address] Chelita Jackson MD TOTAL ROBOTIC HYSTERCETOMY BILATERAL SALPINGO-OOPHRECTOMY 08/20/2025 6:43 AM EST - 08/20/2025 2:00 PM EST Hospital Encounter [facility] [address] [place] [address] Chelita Jackson MD Endometriosis Discharge Disposition: Home or Self Care 08/20/2025 Travel 08/13/2025 10:30 AM EST Pre-Admission Testing [facility] [address] [place] [address] Endometriosis determined by laparoscopy 08/13/2025 Travel 07/27/2025 Refill [facility] [address] [address] Aminata Nassar MD Hyperemesis gravidarum 07/23/2025 Prep for Surgery [facility] ORDERS ONLY [address] [place] [address] Chelita Jackson MD Endometriosis determined by laparoscopy (Primary Dx) from Last 3 Months Immunizations Immunization Administration [...] 0.6 oz pur e alcohol) [facility] Utilities Answer Date Recorded In the past 12 months has [employer], oil, or water [employer] threatened to shut off services in your [...] Date Recorded Retired Total Score 0 05/07/2021 [facility]ational Stress Questionnaire Answer Date [...] things needed for daily living? No 12/10/2024 [place] Depression Scale Answer Date Recorded [place] Depression Scale Total 2 12/22/2024 The thought [...] equivalent No 08/13/2025 Preferred Language Citizen Of [place] 08/13/2025 PHQ-2 Answer Date Recorded Patient Health [...] Mass Index 23.63 09/08/2025 10:34 AM EST Plan of Treatment Upcoming Encounters Date Type Department Care Team (Late st Contact Info) Description 10/31/2025 3:15 PM EST Office Visit [facility] [address] [facility] [address] [place] [address] Aminata Nassar MD [address] [facility] [address] [place] [address] Health Maintenance Due Date Last Done Comments Annual Gynecologic Pelvic an d Breast Exam 1992 Pneumococcal Vaccine 0-49 (1 of 2 - PCV) 2011 TDAP/TD VACCINES (1 - Tdap) 2011 ANNUAL PHYSICAL 12/14/2017 INFLUENZA VACCINE 04/27/2025 07/15/2023, , 06/07/2018, Additional history exists HEPATITIS C SCREENING Completed 10/17/2020 , 12/08/2018, 12/10/2017 Medical Devices Implanted Type Area Choker Setter Device Identifier Shelf Expiration Date Model / Serial / Lot Stnt Percuflx No Gw 4.8x26 - [id number] Implanted:Qty: 1 on 12/18/2022 by Raulito Lancaster MD at [facility] Stent Right: Urinary Bladder Rewardli PATRICIA 08/19/2025 [id number] / / [id number] Procedures Procedure Name Priority Date/Time Associated Diagnosis Comments CT ABDOMEN PELVIS W CONTRAST STAT 09/08/2025 12:00 PM EST CBC AND DIFFERENTIAL STAT 09/08/2025 11:01 AM EST CBC WITH AUTO DIFFERENTIAL STAT 09/08/2025 11:01 AM EST URINALYSIS W/ MICROSCOPIC IF INDICATED (NO CULTURE) STAT 09/08/2025 11:01 AM EST LIPASE STAT 09/08/2025 11:01 AM EST COMPREHENSIVE METABOLIC PANEL STAT 09/08/2025 11:01 AM EST CBC AND DIFFERENTIAL Routine 08/28/2025 1:36 PM EST Post-op pain CBC WITH AUTO DIFFERENTIAL Routine 08/28/2025 1:36 PM EST Post-op pain BASIC METABOLIC PANEL Routine 08/28/2025 1:36 PM EST Post-op pain CBC AND DIFFERENTIAL STAT 08/25/2025 5:25 PM EST LACTIC ACID, PLASMA STAT 08/25/2025 5 :25 PM EST CBC WITH AUTO DIFFERENTIAL STAT 08/25/2025 5:25 PM EST COMPREHENSIVE METABOLIC PANEL STAT 08/25/2025 5:25 PM EST URINALYSIS, MICROSCOPIC ONLY STAT 08/25/2025 5:20 PM EST URINALYSIS W/ MICROSCOPIC IF INDICATED (NO CULTURE) STAT 08/25/2025 5:20 PM EST TISSUE PATHOLOGY EXAM Routine 08/20/2025 10:03 AM EST Endometriosis ANESTHESIA INTUBATION Routine 08/20/2025 9:35 AM EST AZ LAPS FULG/EXC OVARY VISCERA/PERITONEAL SURFACE 08/20/2025 8:57 AM EST Special Needs * TOTAL LAPAROSCOPIC HYSTERECTOMY BILATERAL SALPINGOOPHORECTOMY WITH DAVINCI ROBOT 08/20/2025 8:57 AM EST Special Needs * POCT PEFORM URINE STAT 08/20/2025 8:06 AM EST SCANNED PATHOLOGY 08/20/2025 CBC AND DIFFERENTIAL Routine 08/13/2025 10:07 AM EST Endometriosis determined by laparoscopy CBC WITH AUTO DIFFERENTIAL Routine 08/13/2025 10:07 AM EST Endometriosis determined by laparoscopy URINALYSIS W/ CULTURE IF INDICATED Routine 08/13/2025 9:38 AM EST Endometriosis determined by laparoscopy HEPATITIS C ANTIBODY Routine 10/17/2020 2:08 PM EST Less than 8 weeks gestation of from Last 3 Months or Most Recently Relevant to Health Maintenance Results * CT Abdomen Pelvis With Contrast (09/08/2025 12:00 PM EST) Anatomical Region Laterality Modality Abdomen, Pelvis N/A Computed Tomogra phy 09/08/2025 12:1 9 PM EST Impressions 09/08/2025 12:25 PM EST Impression: CT scan of the abdomen and pelvis with IV contrast demonstrating previous cholecystectomy and hysterectomy. Electronically Signed: Sanchez Melchor MD 09/08/2025 12:25 PM EST Workstation ID: [id number] Narrative 09/08/2025 12:[address] ABDOMEN [...] MD 09/08/2025 12:25 PM EST Workstation ID: [id number] us Namita Hernandez STRIPPER MACHINE OPERATOR IMG CT ORDERABLES Final R esult * Urinalysis With Microscopic If Indicated (No Culture) - Urine, Clean Catch (09/08/2025 11:01 AM EST) Only the most recent of2 resultswithin the time period is included. Color, UA Yellow Yellow, Straw 09/08/2025 11:31 AM [facility] Appearance, UA Clear Clear 09/08/2025 11:31 AM [facility] pH, UA 6.0 5.0 - 8.0 09/08/2025 11:31 AM [facility] Specific [place], UA 1.017 1.005 - 1.030 09/08/2025 11:31 AM [facility] Glucose, UA Negative Negative 09/08/2025 11:31 AM [facility] Ketones, UA Negative Negative 09/08/2025 11:31 AM [facility] Bilirubin, UA Negative Negative 09/08/2025 11:31 AM [facility] Blood, UA Negative Negative 09/08/2025 11:31 AM [facility] Protein, UA Negative Negative 09/08/2025 11:31 AM [facility] Leuk Esterase, UA Negative Negative 09/08/2025 11:31 AM [facility] Nitrite, UA Negative Negative 09/08/2025 11:31 AM [facility] Urobilinogen, UA 0.2 E.U./dL 0.2 - 1.0 E.U./dL 09/08/2025 11:31 AM [facility] Urine Urine specimen obtained by clean catch procedure / Unknown Collection / Unknown 09/08/2025 11:01 AM EST 09/08/2025 11:27 AM EST [facility] - 09/08/2025 11:31 AM EST Urine microscopic not indicated. us Namita Hernandez STRIPPER MACHINE OPERATOR URINE ORDERABLES Final Re sult [facility]
[address] [place] [address], * (ABNORMAL) CBC Auto Differential (09/08/2025 11:01 AM EST) Only the most recent of4 resultswithin the time period is included. WBC 8.91 3.40 - 10.80 10*3/mm3 09/08/2025 11:28 AM [facility] RBC 4.43 3.77 - 5.28 10*6/mm3 09/08/2025 11:28 AM [facility] Hemoglobin 12.3 12.0 - 15.9 g/dL 09/08/2025 11:28 AM [facility] Hematocrit 37.4 34.0 - 46.6 % 09/08/2025 11:28 AM [facility] MCV 84.4 79.0 - 97.0 fL 09/08/2025 11:28 AM [facility] MCH 27.8 26.6 - 33.0 pg 09/08/2025 11:28 AM [facility] MCHC 32.9 31.5 - 35.7 g/dL 09/08/2025 11:28 AM [facility] RDW 13.2 12.3 - 15.4 % 09/08/2025 11:28 AM [facility] RDW-SD 40.8 37.0 - 54.0 fl 09/08/2025 11:28 AM [facility] MPV 8.8 6.0 - 12.0 fL 09/08/2025 11:28 AM [facility] Platelets 367 140 - 450 10*3/mm3 09/08/2025 11:28 AM [facility] Neutrophil % 81.1(H) 42.7 - 76.0 % 09/08/2025 11:28 AM [facility] Lymphocyte % 10.0(L) 19.6 - 45.3 % 09/08/2025 11:28 AM [facility] Monocyte % 5.3 5.0 - 12.0 % 09/08/2025 11:28 AM [facility] Eosinophil % 2.5 0.3 - 6.2 % 09/08/2025 11:28 AM [facility] Basophil % 0.7 0.0 - 1.5 % 09/08/2025 11:28 AM [facility] Immature Grans % 0.4 0.0 - 0.5 % 09/08/2025 11:28 AM [facility] Neutrophils, Absolute 7.23(H) 1.70 - 7.00 10*3/mm3 09/08/2025 11:28 AM [facility] Lymphocytes, Absolute 0.89 0.70 - 3.10 10*3/mm3 09/08/2025 11:28 AM [facility] Monocytes, Absolute 0.47 0.10 - 0.90 10*3/mm3 09/08/2025 11:28 AM [facility] Eosinophils, Absolute 0.22 0.00 - 0.40 10*3/mm3 09/08/2025 11:28 AM [facility] Basophils, Absolute 0.06 0.00 - 0.20 10*3/mm3 09/08/2025 11:28 AM [facility] Immature Grans, Absolute 0.04 0.00 - 0.05 10*3/mm3 09/08/2025 11:28 AM [facility] nRBC 0.0 0.0 - 0.2 /100 WBC 09/08/2025 11:28 AM [facility] Blood Venipuncture / Unknown 09/08/2025 11:01 AM EST 09/08/2025 11:19 AM EST Namita Hernandez STRIPPER MACHINE OPERATOR LAB BLOOD ORDERABLES Kate l Result [facility]
[address] [place] [address], * (ABNORMAL) Lipase (09/08/2025 11:01 AM EST) Lipase 12(L) 13 - 60 U/L 09/08/2025 11:54 AM EST [facility] Blood Venipuncture / Unknown 09/08/2025 11:01 AM EST 09/08/2025 11:29 AM EST Namita Hernandez STRIPPER MACHINE OPERATOR LAB BLOOD ORDERABLES Kate l Result Performing Organization Address City/[facility]/ZIP Co de Phone Number [facility]
[address] [place] [address], * Comprehensive Metabolic Panel (09/08/2025 11:01 AM EST) Only the most recent of2 resultswithin the time period is included. Glucose 96 65 - 99 mg/dL 09/08/2025 11:54 AM [facility] BUN 6.9 6.0 - 20.0 mg/dL 09/08/2025 11:54 AM EST [facility] Creatinine 0.62 0.57 - 1.00 mg/dL 09/08/2025 11:54 AM EST [facility] Sodium 140 136 - 145 mmol/L 09/08/2025 11:54 AM EST [facility] Potassium 3.6 3.5 - 5.2 mmol/L 09/08/2025 11:54 AM EST [facility] Chloride 107 98 - 107 mmol/L 09/08/2025 11:54 AM EST [facility] CO2 24.2 22.0 - 29.0 mmol/L 09/08/2025 11:54 AM [facility] Calcium 8.9 8.6 - 10.5 mg/dL 09/08/2025 11:54 AM [facility] Total Protein 7.1 6.0 - 8.5 g/dL 09/08/2025 11:54 AM [facility] Albumin 4.1 3.5 - 5.2 g/dL 09/08/2025 11:54 AM [facility] ALT (SGPT) 15 1 - 33 U/L 09/08/2025 11:54 AM [facility] AST (SGOT) 20 1 - 32 U/L 09/08/2025 11:54 AM [facility] Alkaline Phosphatase 99 39 - 117 U/L 09/08/2025 11:54 AM [facility] Total Bilirubin 0.3 0.0 - 1.2 mg/dL 09/08/2025 11:54 AM [facility] Globulin 3.0 gm/dL 09/08/2025 11:54 AM [facility] Comment:Calculated Result A/G Ratio 1.4 g/dL 09/08/2025 11:54 AM [facility] BUN/Creatinine Ratio 11.1 7.0 - 25.0 09/08/2025 11:54 AM [facility] Anion Gap 8.8 5.0 - 15.0 mmol/L 09/08/2025 11:54 AM [facility] eGFR 120.8 >60.0 mL/min/1.7 3 09/08/2025 11:54 AM [facility] Blood Venipuncture / Unknown 09/08/2025 11:01 AM EST 09/08/2025 11:29 AM [facility] - 09/08/2025 11:54 AM EST GFR [...] does not include race as a factor Namita Hernandez STRIPPER MACHINE OPERATOR LAB BLOOD ORDERABLES Kate lucie Result [facility]
[address] [place] [address], * (ABNORMAL) Basic Metabolic Panel (08/28/2025 1:36 PM EST) Glucose 92 65 - 99 mg/dL 08/28/2025 8:02 PM EST [facility] BUN 8.0 6.0 - 20.0 mg/dL 08/28/2025 8:02 PM [facility] Creatinine 0.70 0.57 - 1.00 mg/dL 08/28/2025 8:02 PM EST [facility] Sodium 136 136 - 145 mmol/L 08/28/2025 8:02 PM EST [facility] Potassium 3.9 3.5 - 5.2 mmol/L 08/28/2025 8:02 PM [facility] Chloride 100 98 - 107 mmol/L 08/28/2025 8:02 PM EST [facility] CO2 21.7(L) 22.0 - 29.0 mmol/L 08/28/2025 8:02 PM EST [facility] Calcium 9.3 8.6 - 10.5 mg/dL 08/28/2025 8:02 PM EST [facility] BUN/Creatinine Ratio 11.4 7.0 - 25.0 08/28/2025 8:02 PM [facility] Anion Gap 14.3 5.0 - 15.0 mmol/L 08/28/2025 8:02 PM [facility] eGFR 117.3 >60.0 mL/min/1.7 3 08/28/2025 8:02 PM EST [facility] Blood Venipuncture / Unknown 08/28/2025 1:36 PM EST 08/28/2025 1:36 PM EST Narrative [facility] - 08/28/2025 8:02 PM EST GFR [...] does not include race as a factor Chelita Jackson MD LAB BLOOD ORDERABLES Final R esult Performing Organization Address City/[facility]/ZIP Co de Phone Number [facility]
[address] [place] [address], * Lactic Acid, Plasma (08/25/2025 5:25 PM EST) Lactate 0.7 0.5 - 2.0 mmol/L 08/25/2025 6:16 PM EST [facility] Comment:Falsely depressed re sults may occur on samples drawn from patients receiving N-Acetylcysteine (NAC) or Metamizole. Blood Venipuncture / Unknown 08/25/2025 5:25 PM EST 08/25/2025 5:48 PM EST us Kalin Morales DO LAB BLOOD ORDERABLES Final Resul t [facility]
[address] [place] [address], [place] [phone] * Urinalysis, Microscopic Only - Urine, Clean Catch (08/25/2025 5:20 PM EST) RBC, UA 0-2 None Seen, 0-2 /HPF 08/25/2025 5:48 PM EST [facility] WBC, UA 0-2 None Seen, 0-2 /HPF 08/25/2025 5:48 PM EST [facility] Bacteria, UA None Seen None Seen /HPF 08/25/2025 5:48 PM EST [facility] Squamous Epithelial Cells, UA 0-2 None Seen, 0-2 /HPF 08/25/2025 5:48 PM EST [facility] Hyaline Casts, UA None Seen None Seen /LPF 08/25/2025 5:48 PM EST [facility] Methodology Automated Microscopy 08/25/2025 5:48 PM EST [facility] Urine Urine specimen obtained by clean catch procedure / Unknown Collection / Unknown 08/25/2025 5:20 PM EST 08/25/2025 5:40 PM EST Kalin Morales DO URINE ORDERABLES Final Result [facility]
[address] [place] [address], * Tissue Pathology Exam (08/20/2025 10:03 AM EST) Case Report Surgical Pathology Report Case: [id number] Authorizing Provider: Chelita Jackson MD Collected: 08/20/2025 10:15 AM Ordering Location: [facility] Received: 08/20/2025 11:21 AM OR Pathologist: Wade Lawler MD Specimens: 1) - Peritoneum, Peritoneal Lesion For Permanent 2) - Uterus with Cervix, Bilateral Tubes and Ovaries, in formalin 08/21/2025 12:23 PM EST [facility] Clinical Information Endometriosis 08/21/2025 12:23 PM EST [facility] Final Diagnosis PERITONEAL LESION, BIOPSY: Endometriosis 2. UTERUS, CERVIX, BILATERAL OVARIES AND FALLOPIAN TUBES, HYSTERECTOMY WITH BILATERAL SALPINGO-OOPHORECT JIGAR: Benign cervix with mild chronic cervicitis Benign endometrial glands and stroma Benign bilateral ovaries No fallopian tubes grossly or histologically identified Negative for dysplasia or malignancy 08/21/2025 12:23 PM [facility] at 1223 EST Gross Description 1. [...] diameter and sectioning reveals a questionable lumen. Trekking Guide sections are submitted as follows: 2A: Anterior and posterior cervix 2B: Full-thickness anterior endomyometrium 2C: Full-thickness posterior endomyometrium 2D: Right ovary 2E: Left ovary and possible left fallopian tube HDM 08/21/2025 12:23 PM [facility] Microscopic Description The slides are reviewed and demonstrate histopathologic features supporting the above rendered diagnosis. 08/21/2025 12:23 PM [facility] Tissue Specimen from peritoneum / Unknown 08/20/2025 10:03 AM EST 08/20/2025 11:21 AM EST Tissue specimen (specimen) Uterus and cervix, CS / Unknown 08/20/2025 10:15 AM EST 08/20/2025 11:21 AM EST Chelita Jackson MD PATHOLOGY/CYTOLOGY ORDERABLE S Final Result [facility]
[address] [place] [address], * BH AN ETT AIRWAY (08/20/2025 9:35 AM EST) Narrative Shannan Juárez CRNA - 08/20/2025 9:35 AM EST Shannan Juárez CRNA 08/20/2025 9:35 AM Airway Reason: elective Date/Time: 08/20/2025 9:18 AM Airway not difficult General Information and Staff Patient location during procedure: OR ANDROID ARCHITECT/CAA: Shannan Juárez CRNA Indications and Patient Condition [...] AM EST) HCG, Urine, QL Negative Negative [facility] Lot Number [id number] [facility] Internal Positive Control Positive Positive, Passed [facility] Internal Negative Control Negative Negative, Passed [facility] Expiration Date 5-25-27 [facility] Urine 08/20/2025 8:06 AM EST Darrell Iyer Jr., MD POINT OF CARE TEST ORDRebekah OLIVEROS Final Result [facility]
[address] [place] [address], * SCANNED PATHOLOGY (08/20/2025) [facility] PATHOLOGY/CYTOLOGY ORDERABLES Final Result * Urinalysis With Culture If Indicated - Urine, Clean Catch (08/13/2025 9:38 AM EST) Color, UA Yellow Yellow, Straw 08/13/2025 10:27 AM [facility] Appearance, UA Clear Clear 08/13/2025 10:27 AM [facility] pH, UA 5.5 5.0 - 8.0 08/13/2025 10:27 AM [facility] Specific [place], UA 1.014 1.005 - 1.030 08/13/2025 10:27 AM [facility] Glucose, UA Negative Negative 08/13/2025 10:27 AM [facility] Ketones, UA Negative Negative 08/13/2025 10:27 AM [facility] Bilirubin, UA Negative Negative 08/13/2025 10:27 AM [facility] Blood, UA Negative Negative 08/13/2025 10:27 AM [facility] Protein, UA Negative Negative 08/13/2025 10:27 AM [facility] Leuk Esterase, UA Negative Negative 08/13/2025 10:27 AM [facility] Nitrite, UA Negative Negative 08/13/2025 10:27 AM [facility] Urobilinogen, UA 0.2 E.U./dL 0.2 - 1.0 E.U./dL 08/13/2025 10:27 AM EST [facility] Urine Urine specimen obtained by clean catch procedure / Unknown Collection / Unknown 08/13/2025 9:38 AM EST 08/13/2025 10:24 AM EST [facility] - 08/13/2025 10:27 AM EST In absence of clinical symptoms, the presence of pyuria, bacteria, and/or nitrites on the urinalysis result does not correlate with infection. Urine microscopic not indicated. Chelita Jackson MD URINE ORDERABLES Final Resul t Performing Organization Address City/[facility] Co de Phone Number [facility]
[address] [place] [address], * Hepatitis C Antibody (10/17/2020 2:08 PM EST) Hepatitis C Ab Non-Reacti ve Non-Reacti ve 10/17/2020 7:29 PM EST [facility] Blood Venipuncture / Unknown 10/17/2020 2:08 PM EST 10/17/2020 2:08 PM EST [facility] - 10/17/2020 7:29 PM EST Results may be falsely decreased if patient taking Biotin. Tash Jackson MD LAB BLOOD ORDERABLES Final Resul t [facility]
[address] [place] [address], from Last 3 Months or Most Recently Relevant to Health Maintenance Additional Health Concerns Infection Onset Date Last Indicated COVID (History) Comment:Per regional automotive engineering technician for [employer], 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 The last day before reporting a new confirmed COVID-19 would be 12/08/20. -Alida Banda RN 09/09/2020 12/25/2020 Insurance [facility] Advance Directives * CPR (Attempt to [...] Of Support Discussed With: Patient Care Teams Beam House Inspector Relationship Specialty Start Date End Date Michaela Sousa APRN [address] [place] [address] [place] [address] PCP - General Internal Medicine 09/04/24
--- OUTSIDE RECORDS SUMMARY | 2025-09-23 15:59 | XMS_ITS | Clinical Summary ---
Author Organization [facility] Address [address], [address] [place] [address] Care Team Providers Care International Sales Manager Name Role Phone Carmen Juan APRN - [...] on file Medical Devices Implanted Type Area Burrer Operator Device Identifier Shelf Expiration Date Model / Serial / Lot Jaw Screw Screw/Pl ate/Nail /[place] Left: Mandible Description:MRI compatible Insurance [facility] [place] [id number] Advance Directives * Full Code (Latest Code Status on File) Date Activated Date Inactivated Comments 12/10/2018 3:14 AM 12/10/2018 9:58 PM * Full Code Date Activated Date Inactivated Comments 10/08/2018 12:42 AM 10/09/2018 3:48 PM Care Teams International Sales Manager Relationship Specialty Start Date End Date Carmen Juan APRN - NP [facility] [address] [facility] [address] [place] [address] PCP - General 07/22/20
--- OUTSIDE RECORDS SUMMARY | 2025-09-23 15:59 | XMS_ITS | Clinical Summary ---
Author Organization [facility] Address [address] [place] [id number] Care Team Providers Care Signalman Name Role Phone Nonstaff, Referring Primary Care Provider [phone] Johnnie Shearer MD Unavailable [phone] Allergies Active Allergy Reactions Criticality Noted Date [...] 40 mg by mouth daily. Active Coenzyme M69-Wolvmti E 100-5 mg-unit Capsule Take 400 mg [...] Relation to Subscriber:Self Name:Maia Kovacs Payer ID:[id number] ([facility]) Type:PPO Address: [facility] [id number] [place] [id number] Care Teams Signalman Relationship Specialty Start Date End Date Nonstaff, MD [place] [address] [place] [address] PCP - General 02/16/23 Johnnie Shearer MD [address] [place], [place] [id number] Gastroenterology 02/16/23
[2025-09-23 16:05] LABS: Coronavirus 19, PCR Not Detected (NotDetected); Influenza A, PCR Not Detected (NotDetected); Influenza B, PCR Not Detected (NotDetected)
[2025-09-23] MEDS: MAGNESIUM SULFATE IN WATER 2 GM/50 ML PIGGYBACK IV (16:16)
[2025-09-23] MEDS: ONDANSETRON 4MG/2ML VIAL 4 MG IV (16:17)
[2025-09-23] MEDS: MORPHINE 4MG/ML SYRINGE 4 MG IV (16:17)
[2025-09-23] MEDS: DEXAMETHASONE 4MG/ML 1ML VIAL 10 MG IV (16:17)
[2025-09-23] MEDS: IPRATROPIUM/ALBUTEROL 3 ML NEB 9 ML IH (16:18)
[2025-09-23 16:21] LABS: Hematocrit 33.2 % (37.0-47.0); Hemoglobin 10.7 g/dL (12.2-16.2); Immature Granulocytes % 0.6 %; Mean Corpuscular HGB Conc 32.2 g/dL (31.8-35.4); Mean Corpuscular Hemoglobin 28.2 pg (27.0-31.2); Mean Corpuscular Volume 87.6 fl (81-99); Nucleated Red Blood Cells % 0 %; Platelet Count 297 K/mm3 (142-424); Red Blood Count 3.79 M/mm3 (4.20-5.40); Red Cell Distribution Width-SD 44.3 fL; White Blood Count 13.3 K/mm3 (4.8-10.8)
[2025-09-23 16:36] LABS: Alanine Aminotransferase 18 U/L (12-78); Albumin Level 4.7 g/dl (3.5-5.0); Albumin/Globulin Ratio 1.5 (1.1-1.8); Alkaline Phosphatase 104 U/L (38-126); Anion Gap 14.3 mEq/L (5-15); Aspartate Amino Transferase 22 U/L (14-36); Bilirubin,Total 0.3 mg/dl (0.2-1.3); Blood Urea Nitrogen 14 mg/dl (7-17); Calcium 9.2 mg/dl (8.4-10.2); Carbon Dioxide 22 mmol/L (22.0-30.0); Chloride 106 mmol/L (98-107); Creatinine Clearance Estimated 148 mL/min (50-200); Creatinine,Serum 0.60 mg/dl (0.52-1.04); Estimated Glomerular Filt Rate 115 ml/min (>60); GFR (African American) 139 ML/MIN (>60); Globulin 3.2 g/dL (1.3-3.2); Glucose 121 mg/dl (74-100); Lipase 45 U/L (23-300); Magnesium 1.6 mg/dl (1.6-2.3); Sodium 140 mmol/L (136-145); Total Protein,Serum 7.9 g/dl (6.3-8.2)
[2025-09-23 16:37] LABS: Activated Partial Thrombo Time 24.9 seconds (22.8-30.6); INR 0.94 (0.9-1.1); Prothrombin Time 10.5 seconds (10.1-12.5)
[2025-09-23 16:42] LABS: Potassium 2.3 mmoL/L (3.5-5.1)
--- NOTE | 2025-09-23 16:44 | PC.NURSE ---
Provider notified of K+ of 2.3.
[2025-09-23 16:48] LABS: Troponin I < 0.01 ng/ml (0.00-0.034)
[2025-09-23] MEDS: IOPAMIDOL-370 (76%);100ML BOTTLE 70 ML IV (17:09)
[2025-09-23] MEDS: 0.9 % SODIUM CHLORIDE 50 ML VIAL IV (17:09)
[2025-09-23] MEDS: SODIUM CHLORIDE 0.9% 10ML SYR (RAD ONLY) 10 ML IV (17:09)
--- NOTE | 2025-09-23 17:10 | ECG_ITS ---
APPROVED REPORT Exam: Resting ECG HR:110 bpm ECG Measurements Heart Rate 110 AXES IN 146 P 59 QRSd 104 QRS 77 QT 337 T 41 QTc 402 Conclusion SINUS TACHYCARDIA NONSPECIFIC ST & T-WAVE ABNORMALITY ABNORMAL RHYTHM ECG WARNING: DATA QUALITY MAY AFFECT INTERPRETATION UNCONFIRMED REPORT Electronically signed by : TERESITA VASQUES, 09/23/2025 18:54:05
[2025-09-23] MEDS: POTASSIUM CHLORIDE 20MEQ TAB 60 MEQ PO (17:15)
[2025-09-23] MEDS: HYDROMORPHONE 2MG/ML SYRINGE 1 MG IV (17:16)
[2025-09-23 17:39] LABS: VBG HCO3 21.1 mmol/L (23-30); VBG PCO2 36.5 mmol/L (35-51); VBG PH 7.38 mmol/L (7.31-7.41); VBG PO2 109.0 mmol/L (28-40)
[2025-09-23 17:40] LABS: Lactate Venous 2.8 mmol/L (0.4-2.0)
[2025-09-23] MEDS: 0.9 % SODIUM CHLORIDE 1000ML 1,000 ML 999 ML IV (18:25)
[2025-09-23 19:52] LABS: Troponin I < 0.01 ng/ml (0.00-0.034)
[2025-09-23 21:41] LABS: Reflex Lactic Add Lactic Reflex
== END 2025-09-23 20:47 | disposition home or self-care (01) ==
PROVIDERS: Nurse Practitioner; Emergency Provider Student in an Organized Health Care Education/Training Program; PCP Nurse Practitioner Family
DX: R07.9 Chest pain, unspecified (principal); R06.02 Shortness of breath; E87.6 Hypokalemia; R00.0 Tachycardia, unspecified; R74.02 Elevation of levels of lactic acid dehydrogenase [LDH]; F17.210 Nicotine dependence, cigarettes, uncomplicated
CPT/HCPCS: 71275; 80053; 82803; 83690; 83735; 84484; 85025; 85610; 85730; 87636; 93005; 96361; 96365; 96375; 99285; J1100; J1171; J2270; J2405; J3475; J7030; Q9967

== ENCOUNTER 2025-09-25 16:46 | Emergency (ER) | payer OTHER, SELFPAY ==
--- OUTSIDE RECORDS SUMMARY | 2025-08-13 10:30 | XMS_ITS | Encounter Summary ---
[facility] Organization [facility] Address [address] [place] [address] Care Team Providers Care Swimming Coach Or Instructor Name Role Phone SousaSoraidarebekah KING Primary Care Provider + [phone] Encounter Details Date Type Department Care Team (Latest Contact Info) Description 08/13/2025 10:30 AM EST Pre-Admission Testing [facility] PREADMISSION T [address] [place] [phone] Endometriosis determined by laparoscopy Social History Tobacco Use Types Packs/Day Years Used Date Smoking Tobacco: Never Passive Smoke Exposure: Never Smokeless Tobacco: Never Alcohol Use Standard Drinks/Week Comments No 0 (1 standard drink = 0.6 oz pur e alcohol) [facility] Utilities Answer Date Recorded In the past 12 months has [employer] electric, gas, oil, or water company threatened [...] Date Recorded Retired Total Score 0 05/07/2021 [facility] [place] of Occupat ional Health - Occupational Stress [...] things needed for daily living? No 12/10/2024 [place] Depression Scale Answer Date Recorded [place] Depression Scale Total 2 12/22/2024 The thought [...] GED or equivalent No 08/13/2025 Preferred Language Namibian 08/13/2025 PHQ-2 Answer Date Recorded Patient Health [...] Visit [facility] [address] [address] Aminata Nassar MD [address] [address] documented as of this encounter Procedures Procedure [...] - 10.80 10*3/mm3 08/13/2025 10:59 AM EST [facility] RBC 4.25 3.77 - 5.28 10*6/mm3 08/13/2025 10:59 AM EST [facility] Hemoglobin 11.8(L) 12.0 - 15.9 g/dL 08/13/2025 10:59 AM EST [facility] Hematocrit 37.9 34.0 - 46.6 % 08/13/2025 10:59 AM EST [facility] MCV 89.2 79.0 - 97.0 fL 08/13/2025 10:59 AM [facility] MCH 27.8 26.6 - 33.0 pg 08/13/2025 10:59 AM [facility] MCHC 31.1(L) 31.5 - 35.7 g/dL 08/13/2025 10:59 AM [facility] RDW 13.2 12.3 - 15.4 % 08/13/2025 10:59 AM [facility] RDW-SD 43.2 37.0 - 54.0 fl 08/13/2025 10:59 AM [facility] MPV 8.9 6.0 - 12.0 fL 08/13/2025 10:59 AM [facility] Platelets 280 140 - 450 10*3/mm3 08/13/2025 10:59 AM [facility] Neutrophil % 71.2 42.7 - 76.0 % 08/13/2025 10:59 AM [facility] Lymphocyte % 17.2(L) 19.6 - 45.3 % 08/13/2025 10:59 AM [facility] Monocyte % 8.5 5.0 - 12.0 % 08/13/2025 10:59 AM [facility] Eosinophil % 1.8 0.3 - 6.2 % 08/13/2025 10:59 AM [facility] Basophil % 0.8 0.0 - 1.5 % 08/13/2025 10:59 AM [facility] Immature Grans % 0.5 0.0 - 0.5 % 08/13/2025 10:59 AM [facility] Neutrophils, Absolute 5.51 1.70 - 7.00 10*3/mm3 08/13/2025 10:59 AM [facility] Lymphocytes, Absolute 1.33 0.70 - 3.10 10*3/mm3 08/13/2025 10:59 AM [facility] Monocytes, Absolute 0.66 0.10 - 0.90 10*3/mm3 08/13/2025 10:59 AM [facility] Eosinophils, Absolute 0.14 0.00 - 0.40 10*3/mm3 08/13/2025 10:59 AM [facility] Basophils, Absolute 0.06 0.00 - 0.20 10*3/mm3 08/13/2025 10:59 AM [facility] Immature Grans, Absolute 0.04 0.00 - 0.05 10*3/mm3 08/13/2025 10:59 AM [facility] nRBC 0.0 0.0 - 0.2 /100 WBC 08/13/2025 10:59 AM [facility] Blood Venipuncture / Unknown 08/13/2025 10:07 AM EST 08/13/2025 10:41 AM EST us Chelita Jackson MD LAB BLOOD ORDERABLES Final R esult [facility]
[address] [place] [address], * Urinalysis With Culture If Indicated - Urine, Clean Catch (08/13/2025 9:38 AM EST) Color, UA Yellow Yellow, Straw 08/13/2025 10:27 AM [facility] Appearance, UA Clear Clear 08/13/2025 10:27 AM [facility] pH, UA 5.5 5.0 - 8.0 08/13/2025 10:27 AM [facility] Specific [place], UA 1.014 1.005 - 1.030 08/13/2025 10:27 AM [facility] Glucose, UA Negative Negative 08/13/2025 10:27 AM [facility] Ketones, UA Negative Negative 08/13/2025 10:27 AM [facility] Bilirubin, UA Negative Negative 08/13/2025 10:27 AM [facility] Blood, UA Negative Negative 08/13/2025 10:27 AM [facility] Protein, UA Negative Negative 08/13/2025 10:27 AM EST [facility] Leuk Esterase, UA Negative Negative 08/13/2025 10:27 AM EST [facility] Nitrite, UA Negative Negative 08/13/2025 10:27 AM EST [facility] Urobilinogen, UA 0.2 E.U./dL 0.2 - 1.0 E.U./dL 08/13/2025 10:27 AM EST [facility] Urine Urine specimen obtained by clean catch procedure / Unknown Collection / Unknown 08/13/2025 9:38 AM EST 08/13/2025 10:24 AM EST [facility] - 08/13/2025 10:27 AM EST In absence of clinical symptoms, the presence of pyuria, bacteria, and/or nitrites on the urinalysis result does not correlate with infection. Urine microscopic not indicated. Chelita Jackson MD URINE ORDERABLES Final Resul t [facility]
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 The last day before reporting a new confirmed COVID-19 would be 12/08/20. -Alida Banda RN 09/09/2020 12/25/2020 documented as of this encounter Care Teams Swimming Coach Or Instructor Relationship Specialty Start Date End Date Michaela Sousa APRN [address] [place] [address] PCP - General Internal Medicine 09/04/24 documented as of this encounter
--- OUTSIDE RECORDS SUMMARY | 2025-08-20 06:43 | XMS_ITS | Encounter Summary ---
[facility] Address [address] [place] [address] Care Team Providers Care Pencil Maker Name Role Phone Michaela Sousa APRN Primary Care Provider + [phone] Reason for Visit * Auth/Cert Specialty Diagnoses / Procedures Referred By Contac t Referred To Contact Procedures TOTAL ROBOTIC HYSTERCETOMY BILATERAL SALPINGO-OOPHRECTOMY Referral ID Status Reason Start Date Expiration Date Visits Re quested Visits Authorized [id number] 1 1 Encounter Details Date Type Department Care Team (Late st Contact Info) Description 08/20/2025 6:43 AM EST - 08/20/2025 2:00 PM [facility] Hospital Encounter [facility] OR [address] [place] [id number] Chelita Jackson MD [address] [facility] [address] [place] [address] Endometriosis Discharge Disposition: Home or Self Care Social History Tobacco Use Types Packs/Day Years Used Date Smoking Tobacco: Never Passive Smoke Exposure: Never Smokeless Tobacco: Never Alcohol Use Standard Drinks/Week Comments No 0 (1 standard drink = 0.6 oz pur e alcohol) [facility] Utilities Answer Date Recorded [...] Date Recorded Retired Total Score 0 05/07/2021 [facility] - Occupational Stress Questionnaire Answer [...] things needed for daily living? No 12/10/2024 [place] Depression Scale Answer Date Recorded [place] Depression Scale Total 2 12/22/2024 The thought of harming myself has occurred to me . Never 12/22/2024 Abuse Screen Answer Date Recorded Feels Unsafe at Home or Work/School no 08/20/2025 Feels Threatened by Someone no 07/29 Does Anyone Try to Keep You From Having Contact with Others or Doing Things Outside Your Home? no 08/20/2025 Physical Signs of Abuse Present no 08/20/2025 Housing Stability Answer Date Recorded Current Living [...] GED or equivalent No 08/13/2025 Preferred Language Burundian 08/13/2025 PHQ-2 Answer Date Recorded Patient Health [...] Sign Reading Time Taken Comments Blood Pressure 100/66 08/20/2025 1:45 PM EST Pulse 50 08/20/2025 1:45 PM EST Temperature 36.9 C (98.5 F) 08/20/2025 1:45 PM EST Respiratory Rate 17 08/20/2025 1:45 PM EST Oxygen Saturation 97% 08/20/2025 1:45 PM EST Inhaled Oxygen Concentration - - Weight 70.8 kg (156 lb) 08/20/2025 8:07 AM EST Height 172.7 cm (5' 8 ) 08/20/2025 8:07 AM EST Body Mass Index 23.72 08/20/2025 8:07 AM EST documented in this encounter Functional Status * STOP-Bang Score Question Answer Date of Assessment Author Snoring? 0 08/20/2025 8:09 AM Sandra Mae RN Tired? 0 08/20/2025 8:09 AM Sandra Mae RN Observed? 0 08/20/2025 8:09 AM Sandra Mae RN Pressure? 0 08/20/2025 8:09 AM Sandra Mae RN Body Mass Index more than 35 kg/m2? 0 08/20 8:09 AM Sandra Mae RN Age older than 50 year old? 0 08/20/2025 8: 09 AM Sandra Mae RN Neck large? >17 /43cm-M, >16 /41cm-F 0 8:09 AM Sandra Mae RN Gender=Male? 0 08/20/2025 8:09 AM Sandra Mae RN Total Stop-Bang Score 0 08/20/2025 8:09 AM Sandra Mae RN Stop Score 0 08/20/2025 8:09 AM Sandra Mae RN Have you been diagnosed with Sleep Apnea? no 08/20/2025 8:09 AM Sandra Mae RN * Intellectual Performance WDL Question Answer Date of Assessment Author Level of Consciousness Alert 08/20/2025 1:30 PM Westley Lux RN * Motor Response Question Answer Date of Assessment Author General Motor Response purposeful motor response 08/20/2025 1:30 PM Westley Lux RN Motor Response general motor response 08/20/2025 1:30 PM Westley Lux RN * Health Management Question Answer Date of Assessment Author Symptoms/Conditions Managed at Home none 08/20 8:09 AM Sandra Mae RN Barriers to Managing Health none 08/20/2025 8: 09 AM Sandra Mae RN * Interventions Question Answer Date of Assessment Author Trust Relationship/Rapport care explained;reassurance provided 08/20/2025 10:45 AM Westley Lux RN * Positioning Question Answer Date of Assessment Author Body Position position changed independently 08/20/2025 1:30 PM Westley Lux RN * Bib Risk Assessment Question Answer Date of Assessment Author Sensory Perception 4-->no impairment 08/20/2025 10:45 AM Westley Lux RN Friction and Shear 3-->no apparent problem 08/20/2025 10:45 AM Westley Lux RN Moisture 4-->rarely moist 08/20/2025 10:45 AM Westley Lux RN Bib Score 23 08/20/2025 10:45 AM Westley Floyd RN Nutrition 4-->excellent 08/20/2025 10:45 AM Westley Smart RN Activity 4-->walks frequently 08/20/2025 10:45 AM Westley Lux RN Mobility 4-->no limitation 08/20/2025 10:45 AM Westley Lux RN * Hand Pivot Maker/Ankle Strength Question Answer Date of Assessment Author Plantarflexion, Right strong 08/20/2025 1:30 PM Westley Lux RN Hand Pivot Maker, Left strong 08/20/2025 1:30 PM Westley Munoz RN * Safety Question Answer Date of Assessment Author All Alarms alarm(s) activated a nd audible 08/20/2025 1:30 PM Westley Lux RN Airway Safety Measures mask valve resuscitator at bedside;manual resuscitator/mask at bedside;oxygen flowmeter at bedside;suction at bedside 08/20/2025 1:30 PM Westley Lux RN * Musculoskeletal Question Answer Date of Assessment Author Musculoskeletal [facility] 08/20/2025 1:30 PM Westley Cedillo RN * Skin Question Answer Date of Assessment Author Skin [facility] 08/20/2025 1:30 PM Westley Floyd RN * Suicidal Ideation (Past 1 Month) Question Answer Date of Assessment Author 1. Wish to be (Past 1 Month) No 025 8:10 AM Sandra Mae RN 2. Non-Specific Active Suici genevieve Thoughts (Past 1 Month) No 08/20/2025 8:10 AM Sandra Mae RN * Calculated C-SSRS Risk Score (Lifetime/Recent) Answer Date of Assessment Author No Risk Indicated 08/20/2025 8:10 AM Sandra Mae RN * [place] Suicide Severity Rating Scale (Screener/Recent Self-Report) Question Answer Date of Assessment Author 6. Suicidal Behavior (Lifetime) No 8:10 AM Sandra Mae RN * Libra Griffiths Fall Risk Assessment (First 24 hrs only, then right click and complete this group) Question Answer Date of Assessment Author Last Known Fall 0 08/20/2025 10:45 AM Westley Jimenez RN Mobility 0 08/20/2025 10:45 AM Westley Floyd RN Medications 0 08/20/2025 10:45 AM Westley Floyd RN Mental Status/LOC/Awareness 0 08/20/2025 10 :45 AM Westley Lux RN Toileting Needs 0 08/20/2025 10:45 AM Westley Jimenez RN Volume/Electrolyte Status 2 08/20/2025 10:4 5 AM Westley Lux RN Communication/Sensory 1 08/20/2025 10:45 AM Westley Lux RN Hester Davis Fall Risk Total 5 08/20/2025 1 0:45 AM Westley Lux RN * STOP-Bang Score Question Answer Date of Assessment Author Snoring? 0 08/20/2025 8:09 AM Sandra Mae RN Tired? 0 08/20/2025 8:09 AM Sandra Mae RN Observed? 0 08/20/2025 8:09 AM Sandra Mae RN Pressure? 0 08/20/2025 8:09 AM Sandra Mae RN Body Mass Index more than 35 kg/m2? 0 08/20 8:09 AM Sandra Mae RN Age older than 50 year old? 0 08/20/2025 8: 09 AM Sandra Mae RN Neck large? >17 /43cm-M, >16 /41cm-F 0 8:09 AM Sandra Mae RN Gender=Male? 0 08/20/2025 8:09 AM Sandra Mae RN Total Stop-Bang Score 0 08/20/2025 8:09 AM Sandra Mae RN Stop Score 0 08/20/2025 8:09 AM Sandra Mae RN Have you been diagnosed with Sleep Apnea? no 08/20/2025 8:09 AM Sanrda Mae RN * Intellectual Performance WDL Question Answer Date of Assessment Author Level of Consciousness Alert 08/20/2025 1:30 PM Westley Lux RN * Motor Response Question Answer Date of Assessment Author General Motor Response purposeful motor response 08/20/2025 1:30 PM Westley Lux RN Motor Response general motor response 08/20/2025 1:30 PM Westley Lux RN * Health Management Question Answer Date of Assessment Author Symptoms/Conditions Managed at Home none 08/20 8:09 AM Sandra Mae RN Barriers to Managing Health none 08/20/2025 8: 09 AM Sandra Mae RN * Hand Pivot Maker/Ankle Strength Question Answer Date of Assessment Author Dorsiflexion, Left strong 08/20/2025 1:30 PM Westley Lux RN Plantarflexion, Left strong 08/20/2025 1:30 PM E Westley Hunt RN Hand Pivot Maker, Right strong 08/20/2025 1:30 PM EST Westley Villavicencio RN Hand Pivot Maker, Left strong 08/20/2025 1:30 PM EST Westley Pichardo RN Dorsiflexion, Right strong 08/20/2025 1:30 PM ES T Westley Shearer, DEEPAK * Pupils Question Answer Date of Assessment Author Pupil PERRLA yes 08/20/2025 1:30 PM Westley Nielsen RN * Safety Question Answer Date of Assessment Author All Alarms alarm(s) activated a nd audible 08/20/2025 1:30 PM Westley Lux RN Airway Safety Measures mask valve resuscitator at bedside;manual resuscitator/mask at bedside;oxygen flowmeter at bedside;suction at bedside 08/20/2025 1:30 PM Westley Lux RN * Musculoskeletal Question Answer Date of Assessment Author Musculoskeletal [facility] 08/20/2025 1:30 PM Westley Cedillo RN * Skin Question Answer Date of Assessment Author Skin [facility] 08/20/2025 1:30 PM Westley Nielsen RN * Cognitive Question Answer Date of Assessment Author Cognitive/Neuro/Behavioral [facility] 08/20/2025 1:30 PM Westley Lux, DEEPAK * Violence Assessment Tool Risk Indicators Question Answer Date of Assessment Author Assessment Type Initial Assessment 08/20/2025 8:10 AM Sandra Mae RN History of Violence 0 08/20/2025 8:10 AM Sandra Red, RN Confused 0 08/20/2025 8:10 AM Sandra Mae RN Irritable 0 08/20/2025 8:10 AM Sandra Mae RN Boisterous 0 08/20/2025 8:10 AM Sandra Mae RN Verbal Threats 0 08/20/2025 8:10 AM Sandra Dominguez RN Physical Threats 0 08/20/2025 8:10 AM Sandra Lindsay RN Attacking Objects 0 08/20/2025 8:10 AM Sandra Mae RN Agitated/Impulsive 0 08/20/2025 8:10 AM Sandra Mae RN Paranoid/Suspicious 0 08/20/2025 8:10 AM Sandra Red RN Substance Intoxication/Withdrawal 0 08/20/2025 8:10 AM Sandra Mae RN Socially Inappropriate/Disruptive Behavior 0 08/20/2025 8:10 AM Sandra Mae RN Body Language 0 08/20/2025 8:10 AM Sandra Major RN Violence Assessment Tool Total Score 0 08/20/2025 8:10 AM Sandra Mae RN * Suicidal Ideation (Past 1 Month) Question Answer Date of Assessment Author 1. Wish to be (Past 1 Month) No 025 8:10 AM Sandra Mae RN 2. Non-Specific Active Suici genevieve Thoughts (Past 1 Month) No 08/20/2025 8:10 AM Sandra Mae RN * Calculated C-SSRS Risk Score (Lifetime/Recent) Answer Date of Assessment Author No Risk Indicated 08/20/2025 8:10 AM Sandra Mae RN * [place] Suicide Severity Rating Scale (Screener/Recent Self-Report) Question Answer Date of Assessment Author 6. Suicidal Behavior (Lifetime) No 8:10 AM Sandra Mae RN * Lbira Griffiths Fall Risk Assessment (First 24 hrs only, then right click and complete this group) Question Answer Date of Assessment Author Last Known Fall 0 08/20/2025 10:45 AM Westley Jimenez RN Mobility 0 08/20/2025 10:45 AM Westley Floyd RN Medications 0 08/20/2025 10:45 AM Westley Floyd RN Mental Status/LOC/Awareness 0 08/20/2025 10 :45 AM Westley Lux RN Toileting Needs 0 08/20/2025 10:45 AM Westley Jimenez RN Volume/Electrolyte Status 2 08/20/2025 10:4 5 AM Westley Lux RN Communication/Sensory 1 08/20/2025 10:45 AM Westley Lux RN Hester Davis Fall Risk Total 5 08/20/2025 1 0:45 AM Westley Lux RN documented as of this encounter Mental Status * [place] Coma Scale Question Answer Entry Date Author Assessment Qualifiers patient chemically sedated or paralyzed 08/20/2025 11:15 AM Westley Lux RN Best Eye Response 4-->(E4) spontaneous 5 1:30 PM Westley Lux RN Best Verbal Response 5-->(V5) oriented 5 1:30 PM Westley Lux RN Best Motor Response 6-->(M6) obeys commands 07/29 1:30 PM Westley Lux RN [place] Coma Scale Score 15 11/24/2 025 1:30 PM Westley Lux RN * Intellectual Performance WDL Question Answer Entry Date Author Level of Consciousness Alert 08/20/2025 1:30 PM Westley Lux RN * Motor Response Question Answer Entry Date Author General Motor Response purposeful motor response 08/20/2025 1:30 PM Westley Lux RN Motor Response general motor response 1:30 PM Westley Lux RN * Coping Question Answer Entry Date Author Involvement in Care at bedside;interacti ng with patient;supportive of patient;participating in care 08/20/2025 8:15 AM Sandra Mae RN Family/Support Persons spouse 8:15 AM Sandra Mae RN Verbalized Emotional State acceptance 08/20/2025 8:15 AM Sandra Mae RN Diversional Activities television 8:15 AM Sandra Mae RN Family/Support System Care involvement promoted;self-care encouraged;support provided 08/20/2025 8:15 AM Sandra Mae RN * Interventions Question Answer Entry Date Author Trust Relationship/Rapport care explained;reassurance provided 08/20/2025 10:45 AM Westley Lux RN * Yesica Postanesthesia Score Question Answer Entry Date Author Consciousness 2-->fully awake 08/20/2025 1:30 PM Westley Jimenez RN Activity 2-->moves 4 extremit ies voluntarily or on command 08/20/2025 1:30 PM Westley Lux RN * Hand Pivot Maker/Ankle Strength Question Answer Entry Date Author Plantarflexion, Right strong 08/20/2025 1:30 PM Westley Lux RN Dorsiflexion, Left strong 08/20/2025 1:30 PM Westley Lux RN Plantarflexion, Left strong 08/20/2025 1:30 PM Westley Johnson RN Hand Pivot Maker, Right strong 08/20/2025 1:30 PM EST Westley Villavicencio RN Hand Pivot Maker, Left strong 08/20/2025 1:30 PM Westley Munoz RN Dorsiflexion, Right strong 08/20/2025 1:30 PM ES T Westley Shearer, DEEPAK * Pupils Question Answer Entry Date Author Pupil PERRLA yes 08/20/2025 1:30 PM Westley Nielsen RN * Coping/Psychosocial Question Answer Entry Date Author Observed Emotional State calm;cooperative 08/20/2025 1 :30 PM Westley Lux RN * Comfort Interventions Question Answer Entry Date Author Sleep/Rest/Relaxation no problem identified;appears asleep 08/20/2025 1:30 PM Westley Lux RN * Cognitive Question Answer Entry Date Author Cognitive/Neuro/Behavioral WDL WDL 08/20/2025 1:30 PM Westley Lux RN * Pain/Comfort/Sleep Question Answer Entry Date Author POSS (Pasero Opioid-Induced Sed Scale) 1 - Awake and alert 08/20/2025 1:30 PM Westley Lux RN * Violence Assessment Tool Risk Indicators Question Answer Entry Date Author Assessment Type Initial Assessment 08/20/2025 8: 10 AM Sandra Mae RN History of Violence 0 08/20/2025 8 :10 AM Sandra Mae RN Confused 0 08/20/2025 8:10 AM Sandra Mae, RN Irritable 0 08/20/2025 8:10 AM Sandra Mae, RN Boisterous 0 08/20/2025 8:10 AM Sandra Mae RN Verbal Threats 0 08/20/2025 8:10 AM Sandra Mae RN Physical Threats 0 08/20/2025 8:10 AM Sandra Mae RN Attacking Objects 0 08/20/2025 8:1 0 AM Sandra Mae RN Agitated/Impulsive 0 08/20/2025 8: 10 AM Sandra Mae RN Paranoid/Suspicious 0 08/20/2025 8 :10 AM Sandra Mae RN Substance Intoxication/Withdrawal 0 08/20/2025 8:10 AM Sandra Mae RN Socially Inappropriate/Disruptive Behavior 0 08/20/2025 8:10 AM Sandra Mae RN Body Language 0 08/20/2025 8:10 AM Sandra Mae RN Violence Assessment Tool Total Score 0 08/20/2025 8:10 AM Sandra Mae RN documented in this encounter Discharge Instructions * Attachments The following attachments cannot be sent through Care Everywhere. * Abdominal Hysterectomy Care After (Burundian) * General Anesthesia Adult Care After (Bur[place]ian) documented in this encounter Medications at Time [...] MG capsule Take 1 capsule by mouth 3 (Three) Times a Day. ipratropium-albutero l (DUO-NEB) 0.5-2.5 mg/3 ml nebulizer INHALE THE CONTENTS OF 1 VIAL VIA NEBULIZER EVERY 6 HOURS 06/27/2025 ondansetron ODT (ZOFRAN-ODT) 4 MG disintegrating tabletIndications:Hy peremesis gravidarum DISSOLVE 2 TABLETS UNDER THE TONGUE EVERY 8 HOURS NEEDED FOR NAUSEA AND VOMITING 270 tablet 3 07/27/2025 pantoprazole (PROTONIX) 40 MG EC tabletIndications:Hy peremesis gravidarum Take 1 tablet by mouth 2 [...] As Needed (constipation) . 4 each 02/16/2025 tiZANidine (ZANAFLEX) 4 MG tablet take 1 TO 1 AND 1/2 TABLETS BY MOUTH TWICE DAILY 07/04/2025 documented as of this encounter Nursing Notes * Westley Shearer RN - 08/20/2025 11:39 AM EST Caregiver Telephone Number Phone Number for Ride/Caregiver: ADOLFO SPOUSE [phone] Who will be staying with you post procedure for the next 24 hours? Name and Phone Number?: ADOLFO SPOUSE [phone] documented in this encounter OR Notes * Op Note - Chelita Jackson MD - 08/20/2025 9:39 AM EST Hysterectomy Procedure Note Pre-operative Diagnosis: Endometriosis, pelvic pain Post-operative Diagnosis: Endometriosis, Pelvic pain, and Abdominopelvic adhesions Operation: Robotic hysterectomy with bilateral salpingo oophorectomy, lysis of adhesions, excision of endometriosis, fulguration of endometriosis Surgeon: Chelita Jackson MD Assistants: Tire Maker: Cristi Montoya PA-C was responsible for performing the following activities: Retraction, Suction, Irrigation, Suturing, Closing, and Placing Dressing and their skilled assistance was necessary for the success of this case. Anesthesia: General endotracheal anesthesia Findings: Adhesions of the right and left round ligaments to the anterior abdominal wall. Peritoneal windowing consistent with old endometriosis. Superficial peritoneal endometriosis. Estimated Blood Loss: 50 mL Specimens: Uterus with bilateral tubes and ovaries Complications: None Disposition: PACU - hemodynamically stable. Procedure Details The patient was seen in the Holding Room. The risks, benefits, complications, treatment options, and expected outcomes were discussed with the patient. The patient concurred with the proposed plan, giving informed consent. The patient was identified as Maia Kovacs and the procedure verified as Robotic hysterectomy with bilateral salpingo oophorectomy. A Time Out was held and the above information confirmed. After induction of anesthesia, the patient was prepped and draped in the usual sterile manner. The uterus was sounded and fit with a Monserrat-Ana intrauterine manipulator. The operators gloves were changed. The supraumbilical area was injected with a dilute marcaine solution. An 8mm supraumbilical incision was made. Intraperitoneal access was gained with an optical noncutting trocar under direct visualization. CO2 was used to insufflate the abdominopelvic cavity to apressure of approximately 15 mm Hg. She was placed in 30 degrees Trendelenburg. One additional 8mm port site was placed on the left and two additional 8mm ports sites were placed on the right. The DaVinci system was docked and the procedure continued at the console. The anatomy was inspected. Adhesions of the right and left round ligaments to the anterior abdominal wall associated with Ethibond suture were noted. These adhesions were excised and the permanent suture removed with monopolar dissection. Superficial endometriosis was noted to the right pelvic peritoneum. This was placed ontension and excised. The lesions were inferior to the ureters. A small glandular lesion on the bladder peritoneum was then fulgurated. Peritoneal windowing was noted in the posterior cul-de-sac. Ureters were identified. The left infundibulopelvic ligament was identified, fulgurated and transected. The round ligament on the left was fulgurated and transected. The anterior and posterior leaflets ofthe broad ligament were . The bladder was dissected across the midline with monopolar, sharp and blunt dissection. The right infundibulopelvic ligament was isolated, fulgurated and transected. The right round ligament was fulgurated and transected. The uterine vessels on the left and rightwere isolated, fulgurated and transected. A circumferential incision was made along the cervicovaginal junction and the uterus was removed from the vagina. The vaginal cuff was then closed with 2-0 vicryl and 0 vicryl. There was good hemostasis at low pressure. The bladder was retrograde filled with 300 mL sterile saline. Bladder integrity was observed. The DaVinci system was undocked and the procedure was completed at the bedside. The trocars were removed. The skin incisions were closed with 3-0 plain and reinforced with skin glue. The counts were correct x 2. Patient was awakened and taken to recover in stable condition. Chelita Jackson MD 08/20/25 10:44 EST documented in this encounter Plan of Treatment Upcoming Encounters Date Type Department Care Team (Late st Contact Info) Description 10/31/2025 3:15 PM EST Office Visit [facility] [address] [phone] Aminata Nassar MD [address] [address] documented as of this encounter Procedures Procedure Name Priority Date/Time Associated Diagnosis Comments TISSUE PATHOLOGY EXAM Routine 08/20/2025 10:03 AM EST Endometriosis VT LAPS FULG/EXC OVARY VISCERA/PERITONEAL SURFACE 08/20/2025 8:57 AM EST Special Needs * TOTAL LAPAROSCOPIC HYSTERECTOMY BILATERAL SALPINGOOPHORECTOMY WITH DAVINCI ROBOT 08/20/2025 8:57 AM EST Special Needs * POCT PEFORM URINE STAT 08/20/2025 8:06 AM EST SCANNED PATHOLOGY 08/20/2025 documented in this encounter Results * Tissue Pathology Exam (08/20/2025 10:03 AM EST) Case Report Surgical Pathology Report Case: [id number] Authorizing Provider: Chelita Jackson MD Collected: 08/20/2025 10:15 AM Ordering Location: [facility] Received: 08/20/2025 11:21 AM OR Pathologist: Wade Lawler MD Specimens: 1) - Peritoneum, Peritoneal Lesion For Permanent 2) - Uterus with Cervix, Bilateral Tubes and Ovaries, in formalin 08/21/2025 12:23 PM EST [facility] Clinical Information Endometriosis 08/21/2025 12:23 PM EST [facility] Final Diagnosis PERITONEAL LESION, BIOPSY: Endometriosis 2. UTERUS, CERVIX, BILATERAL OVARIES AND FALLOPIAN TUBES, HYSTERECTOMY WITH BILATERAL SALPINGO-OOPHORECT JIGAR: Benign cervix with mild chronic cervicitis Benign endometrial glands and stroma Benign bilateral ovaries No fallopian tubes grossly or histologically identified Negative for dysplasia or malignancy 08/21/2025 12:23 PM EST [facility] at 1223 EST Gross Description 1. Peritoneum. Received in formalin labeled peritoneal lesion for permanent are multiple fragments of yellow-pink, ragged fibroadipose tissue aggregating 1.2 x 1.2 x 0.4 cm submitted entirely, as received in 1A. 2. Uterus with Cervix, Bilateral Tubes and Ovaries. Received in formalin labeled uterus with cervix, bilateral tubes and ovaries is a 57.7 g intact simple hysterectomy specimen with attached bilateral ovaries and proximal left fallopian tube. The 5 x 4.4 x 3.4 cm uterine body is surfaced by pink, smooth glistening serosa. The smooth, glistening ectocervical mucosa is 2.7 x 2.5 cm and the ovoid, patent os is 0.4 cm in diameter. Bivalving of the cervix and uterine body reveals a 2 cm long murillo, corrugated endocervical canal. No polyps are present. The 4 x 1.8 cm triangular endometrial cavity is surfaced by red endometrium averaging 0.2 cm thick. No polyps, exophytic or invasive endometrial lesions are identified. The myometrium is murillo trabecular and averages 2 cm thick. The right, murillo cerebriform ovary is 7.3 g, 3.5 x 2.5 x 2.2 cm and sectioning reveals murillo-pink stroma with a few scattered serous cyst. No papillary excrescences or solid nodules are identified. The left, murillo cerebriform ovary is 4.2 g, 2.5 x 2 x 1.9 cm and sectioning reveals murillo-pink, unremarkable stroma. The proximal left fallopian tube is 9.4 cm long by 0.6 cm in diameter and sectioning reveals a questionable lumen. Skirt Panel Assembler sections are submitted as follows: 2A: Anterior and posterior cervix 2B: Full-thickness anterior endomyometrium 2C: Full-thickness posterior endomyometrium 2D: Right ovary 2E: Left ovary and possible left fallopian tube HDM 08/21/2025 12:23 PM [facility] Microscopic Description The slides are reviewed and demonstrate histopathologic features supporting the above rendered diagnosis. 08/21/2025 12:23 PM [facility] Tissue Specimen from peritoneum / Unknown 08/20/2025 10:03 AM EST 08/20/2025 11:21 AM EST Tissue specimen (specimen) Uterus and cervix, CS / Unknown 08/20/2025 10:15 AM EST 08/20/2025 11:21 AM EST Chelita Jackson MD PATHOLOGY/CYTOLOGY ORDERABLE S Final Result [facility]
[id number] [id number], [place] [phone] * POC Urine (08/20/2025 8:06 AM EST) HCG, Urine, QL Negative Negative [facility] Lot Number [id number] [facility] Internal Positive Control Positive Positive, Passed [facility] Internal Negative Control Negative Negative, Passed [facility] Expiration Date 02-18-27 [facility] Urine 08/20/2025 8:06 AM EST Darrell Iyer Jr., MD POINT OF CARE TEST ORDYaniv OLIVEROS Final Result Performing Organization Address City/[facility]/ZIP Co de Phone Number [facility]
[address] [place] [address], [place] [phone] * SCANNED PATHOLOGY (08/20/2025) [facility] PATHOLOGY/CYTOLOGY ORDERABLES Final Result documented in this encounter Visit Diagnoses Diagnosis Endometriosis determined by laparoscopy- Primary Endometriosis Endometriosis, site unspecified documented in this encounter Admitting Diagnoses Diagnosis Endometriosis determined by laparoscopy documented in this encounter Administered Medications Inactive Administered Medications - up to 3 most recent administrations Medication Order MAR Action Action Date Dose Rate Site acetaminophen (TYLENOL) tablet 1,000 mg 1,000 mg, Oral, Once, On 08/20/25 at 0743, For 1 dose, Do not exceed 4 grams of acetaminophen in a 24 hr period. If given for pain, use the following pain scale: Mild Pain = Pain Score of 1-3, CPOT 1-2 Moderate Pain = Pain Score of 4-6, CPOT 3-4 Severe Pain = Pain Score of 7-10, CPOT 5-8 Based on patient request - if ordered for moderate or severe pain, provider allows for administration of a medication prescribed for a lower pain scale. Do not exceed 4 grams of acetaminophen in a 24 hr period. Max dose of 2gm for AST/ALT greater than 120 units/L. If given for pain, use the following pain scale: Mild Pain = Pain Score of 1-3, CPOT 1-2 Moderate Pain = Pain Score of 4-6, CPOT 3-4 Severe Pain = Pain Score of 7-10, CPOT 5-8 Given 08/20/2025 7:52 AM EST 1,000 mg droperidol (INAPSINE) injection 0.625 mg 0.625 mg, Intravenous, Every 15 Minutes PRN, Nausea, Vomiting, Starting on Wed08/20/25 at 1107, For 2 doses droperidol (INAPSINE) injection 0.625 mg 0.625 mg, Intramuscular, Once As Needed, Nausea, Vomiting, Starting on Wed08/20/25 at 1107, For 2 doses ePHEDrine injection 5 mg 5 mg, Intravenous, Once As Needed, symptomatic hypotension - Notify attending anesthesiologist, Starting on Wed08/20/25 at 1107, For 1 dose, Caution: Look alike/sound alike drug alert Dilute with NS to 5-10 mg/mL. Central line preferred, if unavailable use large bore IV access with frequent nurse monitoring of IV site. famotidine (PEPCID) tablet 20 mg 20 mg, Oral, Once, On Wed08/20/25 at 0743, For 1 dose Given 08/20/2025 7:52 AM EST 20 mg fentaNYL citrate (PF) (SUBLIMAZE) 50 mcg/mL injection - ADS Override Pull Starting on Wed08/20/25 at 1108, For 1 dose, Created by cabinet override If given for pain, use the following pain scale: Mild Pain = Pain Score of 1-3, CPOT 1-2 Moderate Pain = Pain Score of 4-6, CPOT 3-4 Severe Pain = Pain Score of 7-10, CPOT 5-8 fentaNYL citrate (PF) (SUBLIMAZE) injection 50 mcg 50 mcg, Intravenous, Every 5 Minutes PRN, Severe Pain, breakthrough pain, Starting on Wed08/20/25 at 1107, For 4 doses, PACU only. Maximum cumulative total dose of fentanyl is 100 mcg (30 MME) If given for pain, use the following pain scale: Mild Pain = Pain Score of 1-3, CPOT 1-2 Moderate Pain = Pain Score of 4-6, CPOT 3-4 Severe Pain = Pain Score of 7-10, CPOT 5-8 Given 08/20/2025 1:10 PM EST 50 mcg Given 08/20/2025 11:57 AM EST 50 mcg Given 08/20/2025 11:09 AM EST 50 mcg gabapentin (NEURONTIN) capsule 600 mg 600 mg, Oral, Once, On Wed08/20/25 at 0743, For 1 dose, (GUDELIA) Given 08/20/2025 7:52 AM EST 600 mg hydrALAZINE (APRESOLINE) injection 5 mg 5 mg, Intravenous, Every 10 Minutes PRN, High Blood Pressure, for systolic blood pressure greater than 180 mmHg or diastolic blood pressure greater than 105 mmHg, Starting on Wed08/20/25 at 1107, Up to 20 mg. Caution: Look alike/sound alike drug alert HYDROcodone-acetaminophen (NORCO) 5-325 MG per tablet 1 tablet 1 tablet, Oral, Every 4 Hours PRN, Moderate Pain, Starting on Wed08/20/25 at 1107, For 2 doses, May be given once in PACU and/or once for outpatient pain as needed. [GUDELIA] Do not exceed 4 grams of acetaminophen in a 24 hr period. Max dose of 2gm for AST/ALT greater than 120 units/L If given for pain, use the following pain scale: Mild Pain = Pain Score of 1-3, CPOT 1-2 Moderate Pain = Pain Score of 4-6, CPOT 3-4 Severe Pain = Pain Score of 7-10, CPOT 5-8 HYDROcodone-acetaminophen (NORCO) 7.5-325 MG per tablet - ADS Override Pull Starting on Wed08/20/25 at 1221, For 1 dose, Created by cabinet override [GUDELIA] Do not exceed 4 grams of acetaminophen in a 24 hr period. Max dose of 2gm for AST/ALT greater than 120 units/L If given for pain, use the following pain scale: Mild Pain = Pain Score of 1-3, CPOT 1-2 Moderate Pain = Pain Score of 4-6, CPOT 3-4 Severe Pain = Pain Score of 7-10, CPOT 5-8 HYDROcodone-acetaminophen (NORCO) 7.5-325 MG per tablet 1 tablet 1 tablet, Oral, Every 4 Hours PRN, Severe Pain, Starting on Wed08/20/25 at 1107, For 2 doses, May be given once in PACU and/or once for outpatient pain as needed. [GUDELIA] Do not exceed 4 grams of acetaminophen in a 24 hr period. Max dose of 2gm for AST/ALT greater than 120 units/L If given for pain, use the following pain scale: Mild Pain = Pain Score of 1-3, CPOT 1-2 Moderate Pain = Pain Score of 4-6, CPOT 3-4 Severe Pain = Pain Score of 7-10, CPOT 5-8 Given 08/20/2025 12:22 PM EST 1 tablet HYDROmorphone (DILAUDID) 1 MG/ML injection - ADS Override Pull Starting on Wed08/20/25 at 1135, For 1 dose, Created by cabinet override (GUDELIA) Caution: Look alike/sound alike drug alert If given for pain, use the following pain scale: Mild Pain = Pain Score of 1-3, CPOT 1-2 Moderate Pain = Pain Score of 4-6, CPOT 3-4 Severe Pain = Pain Score of 7-10, CPOT 5-8 HYDROmorphone (DILAUDID) injection 0.25 mg 0.25 mg, Intravenous, Every 15 Minutes PRN, Moderate Pain, Starting on Wed08/20/25 at 1107, For 4 doses, Max of 1 mg (20 MME) PACU only. If given for pain, use the following pain scale: Mild Pain = Pain Score of 1-3, CPOT 1-2 Moderate Pain = Pain Score of 4-6, CPOT 3-4 Severe Pain = Pain Score of 7-10, CPOT 5-8 HYDROmorphone (DILAUDID) injection 0.5 mg 0.5 mg, Intravenous, Every 15 Minutes PRN, Severe Pain, Starting on Wed08/20/25 at 1107, For 4 doses, Max of 2 mg (40 MME) PACU only. If given for pain, use the following pain scale: Mild Pain = Pain Score of 1-3, CPOT 1-2 Moderate Pain = Pain Score of 4-6, CPOT 3-4 Severe Pain = Pain Score of 7-10, CPOT 5-8 Given 08/20/2025 12:33 PM EST 0.5 mg Given 08/20/2025 11:36 AM EST 0.5 mg ipratropium-albuterol (DUO-NEB) nebulizer solution 3 mL 3 mL, Nebulization, Once As Needed, Wheezing, Shortness of Air, bronchospasm, Starting on Wed08/20/25 at 1107, For 1 dose labetalol (NORMODYNE,TRANDATE) injection 5 mg 5 mg, Intravenous, Every 5 Minutes PRN, High Blood Pressure, for systolic blood pressure greater than 180 mmHg or diastolic blood pressure greater than 105 mmHg, Starting on Wed08/20/25 at 1107, For 4 doses, Hold for heart rate less than 60. Give IV Push over 2 minutes. lactated ringers bolus 250 mL 250 mL, Intravenous, at 1,666.7 mL/hr, Administer over 0.15 Hours, Once As Needed, Hypotension, Starting on Wed08/20/25 at 1107, For 2 doses, Indications: HypotensionIndications:Hypotension lactated ringers infusion 9 mL/hr, Intravenous, Continuous, Starting on Wed08/21/25 at 0600, For 1 day, May switch to NS IV at [facility] if renal / if indicated New Bag 08/20/2025 10:29 AM EST New Bag 08/20/2025 8:45 AM EST lactated ringers infusion 9 mL/hr, Intravenous, Continuous, Starting on Wed08/20/25 at 1109, For 1 day lidocaine PF 1% (XYLOCAINE) injection 0.5 mL 0.5 mL, Injection, Once As Needed, IV Start, Starting on Wed08/20/25 at 0741, For 1 dose Given 08/20/2025 8:17 AM EST 0.5 mL midazolam (VERSED) injection 2 mg 2 mg, Intravenous, Once, On Wed08/20/25 at 0758, For 1 dose, If given IV Push: give slowly over at least 2 minutes, unless provider at bedside for induction. (GUDELIA) Given 08/20/2025 8:16 AM EST 2 mg naloxone (NARCAN) injection 0.4 mg 0.4 mg, Intravenous, As Needed, Opioid Reversal, unresponsiveness, decrease oxygen saturation, Starting on Wed08/20/25 at 1107 naloxone (NARCAN) injection 0.4 mg 0.4 mg, Intravenous, Every 5 Minutes PRN, Respiratory Depression, Starting on Wed08/20/25 at 1107, For 5 doses, If respiratory rate is less than 8 breaths/minute or patient is difficult to arouse stop any narcotics and contact physician. Administer slow IV push. Repeat as ordered until patient's respiratory rate is greater than 12 breaths/minute. naloxone (NARCAN) injection 0.4 mg 0.4 mg, Intravenous, Every 5 Minutes PRN, Respiratory Depression, Starting on Wed08/20/25 at 1107, If respiratory rate is less than 8 breaths/minute or patient is difficult to arouse stop any narcotics and contact physician. Administer slow IV push. Repeat as ordered until patient's respiratory rate is greater than 12 breaths/minute. naloxone (NARCAN) injection 0.4 mg 0.4 mg, Intravenous, Every 5 Minutes PRN, Respiratory Depression, Starting on Wed08/20/25 at 1107, If respiratory rate is less than 8 breaths/minute or patient is difficult to arouse stop any narcotics and contact physician. Administer slow IV push. Repeat as ordered until patient's respiratory rate is greater than 12 breaths/minute. ondansetron (ZOFRAN) 2 mg/mL injection - ADS Override Pull Starting on Wed08/20/25 at 1111, For 1 dose, Created by cabinet override ondansetron (ZOFRAN) injection 4 mg 4 mg, Intravenous, Once As Needed, Nausea, Vomiting, Starting on Wed08/20/25 at 1107, For 1 dose, If BOTH ondansetron (ZOFRAN) and promethazine (PHENERGAN) are ordered use ondansetron first and THEN promethazine IF ondansetron is ineffective. Given 08/20/2025 11:12 AM EST 4 mg promethazine (PHENERGAN) suppository 25 mg 25 mg, Rectal, Once As Needed, Nausea, Vomiting, Starting on Wed08/20/25 at 1107, For 1 dose, If BOTH ondansetron (ZOFRAN) and promethazine (PHENERGAN) are ordered use ondansetron first and THEN promethazine IF ondansetron is ineffective. promethazine (PHENERGAN) tablet 25 mg 25 mg, Oral, Once As Needed, Nausea, Vomiting, Starting on Wed08/20/25 at 1107, For 1 dose, If BOTH ondansetron (ZOFRAN) and promethazine (PHENERGAN) are ordered use ondansetron first and THEN promethazine IF ondansetron is ineffective. ([facility]) scopolamine patch 1 mg/72 hr 1 patch, Transdermal - scopolamine, Administer over 72 Hours, Once, On Wed08/20/25 at 0758, For 1 dose, ([facility]) Medication Applied 08/20/2025 7:52 AM EST 1 patch Behind Right Ear sodium chloride 0.9 % flush 3 mL 3 mL, Intravenous, Every 12 Hours Scheduled, First dose on Wed08/20/25 at 1109 sodium chloride 0.9 % flush 3-10 mL 3-10 mL, Intravenous, As Needed, Line Care, Starting on Wed08/20/25 at 1107 sodium chloride 0.9 % infusion 9 mL 9 mL, Intravenous, As Needed, Line Care, Starting on Wed08/20/25 at 1107, For 1 day, Following administration of an IV intermittent medication, flush line with 40mL NS at 100mL/hr. documented in this encounter Active and Recently Administered Medications Times are shown in EST. Scheduled Medication Order 08/18/2025 08/19/2025 08/20/2025 acetaminophen (TYLENOL) tablet 1,000 mg (COMPLETED) 1,000 mg, Oral, Once, On Wed08/20/25 at 0743, For 1 dose, Do not exceed 4 grams of acetaminophen in a 24 hr period. If given for pain, use the following pain scale: Mild Pain = Pain Score of 1-3, CPOT 1-2 Moderate Pain = Pain Score of 4-6, CPOT 3-4 Severe Pain = Pain Score of 7-10, CPOT 5-8 Based on patient request - if ordered for moderate or severe pain, provider allows for administration of a medication prescribed for a lower pain scale. Do not exceed 4 grams of acetaminophen in a 24 hr period. Max dose of 2gm for AST/ALT greater than 120 units/L. If given for pain, use the following pain scale: Mild Pain = Pain Score of 1-3, CPOT 1-2 Moderate Pain = Pain Score of 4-6, CPOT 3-4 Severe Pain = Pain Score of 7-10, CPOT 5-8 0752 (Given - Provid er: Sandra Chery RN) acetaminophen (TYLENOL) tablet 650 mg 650 mg, Oral, Once, On Wed08/20/25 at 1058, For 1 dose, Do not exceed 4 grams of acetaminophen in a 24 hr period. If given for pain, use the following pain scale: Mild Pain = Pain Score of 1-3, CPOT 1-2 Moderate Pain = Pain Score of 4-6, CPOT 3-4 Severe Pain = Pain Score of 7-10, CPOT 5-8 Based on patient request - if ordered for moderate or severe pain, provider allows for administration of a medication prescribed for a lower pain scale. Do not exceed 4 grams of acetaminophen in a 24 hr period. Max dose of 2gm for AST/ALT greater than 120 units/L. If given for pain, use the following pain scale: Mild Pain = Pain Score of 1-3, CPOT 1-2 Moderate Pain = Pain Score of 4-6, CPOT 3-4 Severe Pain = Pain Score of 7-10, CPOT 5-8 1058 (Due) ceFAZolin 2000 mg IVPB in 100 mL NS (MBP) (COMPLETED) 2,000 mg, Intravenous, Administer over 30 Minutes, Once, On Wed08/20/25 at 0743, For 1 dose, Caution: Look alike/sound alike drug alert, Indications: Surgical Prophylaxis 0920 (New Bag - Prov ider: Shannan Juárez, MUSTAPHA) famotidine (PEPCID) tablet 20 mg (COMPLETED) 20 mg, Oral, Once, On Wed08/20/25 at 0743, For 1 dose 0752 (Given - Provid er: Sandra Chery RN) gabapentin (NEURONTIN) capsule 600 mg (COMPLETED) 600 mg, Oral, Once, On Wed08/20/25 at 0743, For 1 dose, (GUDELIA) 0752 (Given - Provid er: Sandra Chery RN) Methocarbamol (ROBAXIN) injection 1,000 mg (COMPLETED) 1,000 mg, Intravenous, Once, On Wed08/20/25 at 1002, For 1 dose, 1. For IV Admin: Give while recumbent maintain position for 15-30 min. Give slow IV push over 5 min not to exceed 3mL/min 2. For IM Admin: a max of 5mL can be administered into each gluteal region. 1028 (Given - Provid er: Shannan Juárez CRNA) midazolam (VERSED) injection 2 mg (COMPLETED) 2 mg, Intravenous, Once, On Wed08/20/25 at 0758, For 1 dose, If given IV Push: give slowly over at least 2 minutes, unless provider at bedside for induction. ([facility]) 0816 (Given - Provid er: Sandra Chery RN) scopolamine patch 1 mg/72 hr 1 patch, Transdermal - scopolamine, Administer over 72 Hours, Once, On Wed08/20/25 at 0758, For 1 dose, ([facility]) 0752 (Medication Janki lied - Provider: Sandra Chery RN)1400 (Due: Medication Removed - Provider: Automatic Discharge Provider - Comment: Time automatically adjusted from order being discontinued) sodium chloride 0.9 % flush 3 mL 3 mL, Intravenous, Every 12 Hours Scheduled, First dose on Wed08/20/25 at 1109 1109 (Due) Continuous Medication Order 08/18/2025 08/19/2025 08/20/2025 lactated ringers infusion 9 mL/hr, Intravenous, Continuous, Starting on Wed08/21/25 at 0600, For 1 day, May switch to NS IV at [facility] if renal / if indicated 0845 (New Bag - Prov ider: Shannan Juárez CRNA)1029 (New Bag - Provider: Shannan Juárez CRNA)1050 (Stopped - Provider: Shannan Juárez CRNA) lactated ringers infusion 9 mL/hr, Intravenous, Continuous, Starting on Wed08/20/25 at 1109, For 1 day 1109 (Due) PRN Medication Order 08/18/2025 08/19/2025 08/20/2025 bupivacaine 0.5%-EPINEPHrine [id number] (MARCAINE w/EPI) 0.5% -[id number] injection (CANCELED) As Needed, Starting on Wed08/20/25 at 0945 0945 (Given - Provid er: Chelita Jackson MD - Comment: Placed in sterile field) droperidol (INAPSINE) injection 0.625 mg(Linked Group 1) 0.625 mg, Intravenous, Every 15 Minutes PRN, Nausea, Vomiting, Starting on Wed08/20/25 at 1107, For 2 doses droperidol (INAPSINE) injection 0.625 mg(Linked Group 1) 0.625 mg, Intramuscular, Once As Needed, Nausea, Vomiting, Starting on Wed08/20/25 at 1107, For 2 doses ePHEDrine injection 5 mg 5 mg, Intravenous, Once As Needed, symptomatic hypotension - Notify attending anesthesiologist, Starting on Wed08/20/25 at 1107, For 1 dose, Caution: Look alike/sound alike drug alert Dilute with NS to 5-10 mg/mL. Central line preferred, if unavailable use large bore IV access with frequent nurse monitoring of IV site. fentaNYL citrate (PF) (SUBLIMAZE) injection 50 mcg(Linked Group 2) 50 mcg, Intravenous, Every 5 Minutes PRN, Severe Pain, breakthrough pain, Starting on Wed08/20/25 at 1107, For 4 doses, PACU only. Maximum cumulative total dose of fentanyl is 100 mcg (30 MME) If given for pain, use the following pain scale: Mild Pain = Pain Score of 1-3, CPOT 1-2 Moderate Pain = Pain Score of 4-6, CPOT 3-4 Severe Pain = Pain Score of 7-10, CPOT 5-8 1109 (Given - Provid er: Westley Shearer RN)1157 (Given - Provider: Westley Shearer RN)1310 (Given - Provider: Westley Shearer RN) heparin (porcine) 5000 UNIT/ML injection (CANCELED) As Needed, Starting on Wed08/20/25 at 0945 0945 (Given - Provid er: Trice Campbell RN) hydrALAZINE (APRESOLINE) injection 5 mg 5 mg, Intravenous, Every 10 Minutes PRN, High Blood Pressure, for systolic blood pressure greater than 180 mmHg or diastolic blood pressure greater than 105 mmHg, Starting on Wed08/20/25 at 1107, Up to 20 mg. Caution: Look alike/sound alike drug alert HYDROcodone-acetaminophen (NORCO) 5-325 MG per tablet 1 tablet 1 tablet, Oral, Every 4 Hours PRN, Moderate Pain, Starting on Wed08/20/25 at 1107, For 2 doses, May be given once in PACU and/or once for outpatient pain as needed. [GUDELIA] Do not exceed 4 grams of acetaminophen in a 24 hr period. Max dose of 2gm for AST/ALT greater than 120 units/L If given for pain, use the following pain scale: Mild Pain = Pain Score of 1-3, CPOT 1-2 Moderate Pain = Pain Score of 4-6, CPOT 3-4 Severe Pain = Pain Score of 7-10, CPOT 5-8 HYDROcodone-acetaminophen (NORCO) 7.5-325 MG per tablet 1 tablet 1 tablet, Oral, Every 4 Hours PRN, Severe Pain, Starting on Wed08/20/25 at 1107, For 2 doses, May be given once in PACU and/or once for outpatient pain as needed. [GUDELIA] Do not exceed 4 grams of acetaminophen in a 24 hr period. Max dose of 2gm for AST/ALT greater than 120 units/L If given for pain, use the following pain scale: Mild Pain = Pain Score of 1-3, CPOT 1-2 Moderate Pain = Pain Score of 4-6, CPOT 3-4 Severe Pain = Pain Score of 7-10, CPOT 5-8 1222 (Given - Provid er: Westley Shearer RN) HYDROmorphone (DILAUDID) injection 0.25 mg(Linked Group 3) 0.25 mg, Intravenous, Every 15 Minutes PRN, Moderate Pain, Starting on Wed08/20/25 at 1107, For 4 doses, Max of 1 mg (20 MME) PACU only. If given for pain, use the following pain scale: Mild Pain = Pain Score of 1-3, CPOT 1-2 Moderate Pain = Pain Score of 4-6, CPOT 3-4 Severe Pain = Pain Score of 7-10, CPOT 5-8 HYDROmorphone (DILAUDID) injection 0.5 mg(Linked Group 4) 0.5 mg, Intravenous, Every 15 Minutes PRN, Severe Pain, Starting on Wed08/20/25 at 1107, For 4 doses, Max of 2 mg (40 MME) PACU only. If given for pain, use the following pain scale: Mild Pain = Pain Score of 1-3, CPOT 1-2 Moderate Pain = Pain Score of 4-6, CPOT 3-4 Severe Pain = Pain Score of 7-10, CPOT 5-8 1136 (Given - Provid er: Westley Shearer RN)1233 (Given - Provider: Westley Shearer RN) HYDROmorphone (DILAUDID) injection 0.5 mg 0.5 mg, Intravenous, Every 30 Minutes PRN, Severe Pain, Starting on Wed08/20/25 at 1055, For 2 doses, If given for pain, use the following pain scale: Mild Pain = Pain Score of 1-3, CPOT 1-2 Moderate Pain = Pain Score of 4-6, CPOT 3-4 Severe Pain = Pain Score of 7-10, CPOT 5-8 ipratropium-albuterol (DUO-NEB) nebulizer solution 3 mL 3 mL, Nebulization, Once As Needed, Wheezing, Shortness of Air, bronchospasm, Starting on Wed08/20/25 at 1107, For 1 dose labetalol (NORMODYNE,TRANDATE) injection 5 mg 5 mg, Intravenous, Every 5 Minutes PRN, High Blood Pressure, for systolic blood pressure greater than 180 mmHg or diastolic blood pressure greater than 105 mmHg, Starting on Wed08/20/25 at 1107, For 4 doses, Hold for heart rate less than 60. Give IV Push over 2 minutes. lactated ringers bolus 250 mL 250 mL, Intravenous, at 1,666.7 mL/hr, Administer over 0.15 Hours, Once As Needed, Hypotension, Starting on Wed08/20/25 at 1107, For 2 doses, Indications: Hypotension lidocaine PF 1% (XYLOCAINE) injection 0.5 mL (COMPLETED) 0.5 mL, Injection, Once As Needed, IV Start, Starting on Wed08/20/25 at 0741, For 1 dose 0817 (Given - Provid er: Sandra Chery RN) naloxone (NARCAN) injection 0.4 mg 0.4 mg, Intravenous, As Needed, Opioid Reversal, unresponsiveness, decrease oxygen saturation, Starting on Wed08/20/25 at 1107 naloxone (NARCAN) injection 0.4 mg(Linked Group 3) 0.4 mg, Intravenous, Every 5 Minutes PRN, Respiratory Depression, Starting on Wed08/20/25 at 1107, For 5 doses, If respiratory rate is less than 8 breaths/minute or patient is difficult to arouse stop any narcotics and contact physician. Administer slow IV push. Repeat as ordered until patient's respiratory rate is greater than 12 breaths/minute. naloxone (NARCAN) injection 0.4 mg(Linked Group 4) 0.4 mg, Intravenous, Every 5 Minutes PRN, Respiratory Depression, Starting on Wed08/20/25 at 1107, If respiratory rate is less than 8 breaths/minute or patient is difficult to arouse stop any narcotics and contact physician. Administer slow IV push. Repeat as ordered until patient's respiratory rate is greater than 12 breaths/minute. naloxone (NARCAN) injection 0.4 mg(Linked Group 2) 0.4 mg, Intravenous, Every 5 Minutes PRN, Respiratory Depression, Starting on Wed08/20/25 at 1107, If respiratory rate is less than 8 breaths/minute or patient is difficult to arouse stop any narcotics and contact physician. Administer slow IV push. Repeat as ordered until patient's respiratory rate is greater than 12 breaths/minute. ondansetron (ZOFRAN) injection 4 mg (COMPLETED) 4 mg, Intravenous, Once As Needed, Nausea, Vomiting, Starting on Wed08/20/25 at 1107, For 1 dose, If BOTH ondansetron (ZOFRAN) and promethazine (PHENERGAN) are ordered use ondansetron first and THEN promethazine IF ondansetron is ineffective. 1112 (Given - Provid er: Westley Shearer RN) ondansetron (ZOFRAN) injection 4 mg 4 mg, Intravenous, Once As Needed, Nausea, Vomiting, Starting on Wed08/20/25 at 1055, For 1 dose, If BOTH ondansetron (ZOFRAN) and promethazine (PHENERGAN) are ordered use ondansetron first and THEN promethazine IF ondansetron is ineffective. ondansetron ODT (ZOFRAN-ODT) disintegrating tablet 4 mg 4 mg, Oral, Once As Needed, Nausea, Starting on Wed08/20/25 at 1055, For 1 dose, If BOTH ondansetron (ZOFRAN) and promethazine (PHENERGAN) are ordered use ondansetron first and THEN promethazine IF ondansetron is ineffective. Place on tongue and allow to dissolve. oxyCODONE-acetaminophen (PERCOCET) 5-325 MG per tablet 1 tablet 1 tablet, Oral, Every 4 Hours PRN, Moderate Pain, Starting on Wed08/20/25 at 1055, For 5 days, Based on patient request - if ordered for moderate or severe pain, provider allows for administration of a medication prescribed for a lower pain scale. [GUDELIA] Do not exceed 4 grams of acetaminophen in a 24 hr period. Max dose of 2gm for AST/ALT greater than 120 units/L If given for pain, use the following pain scale: Mild Pain = Pain Score of 1-3, CPOT 1-2 Moderate Pain = Pain Score of 4-6, CPOT 3-4 Severe Pain = Pain Score of 7-10, CPOT 5-8 promethazine (PHENERGAN) suppository 25 mg(Linked Group 5) 25 mg, Rectal, Once As Needed, Nausea, Vomiting, Starting on Wed08/20/25 at 1107, For 1 dose, If BOTH ondansetron (ZOFRAN) and promethazine (PHENERGAN) are ordered use ondansetron first and THEN promethazine IF ondansetron is ineffective. promethazine (PHENERGAN) tablet 25 mg(Linked Group 5) 25 mg, Oral, Once As Needed, Nausea, Vomiting, Starting on Wed08/20/25 at 1107, For 1 dose, If BOTH ondansetron (ZOFRAN) and promethazine (PHENERGAN) are ordered use ondansetron first and THEN promethazine IF ondansetron is ineffective. ([facility]) sodium chloride 0.9 % flush 3-10 mL 3-10 mL, Intravenous, As Needed, Line Care, Starting on Wed08/20/25 at 1107 sodium chloride 0.9 % infusion 9 mL 9 mL, Intravenous, As Needed, Line Care, Starting on Wed08/20/25 at 1107, For 1 day, Following administration of an IV intermittent medication, flush line with 40mL NS at 100mL/hr. Linked Groups Order Group 1: droperidol (INAPSINE) injection 0.625 mgJump to med 0.625 mg, Intravenous, Every 15 Minutes PRN, Nausea, Vomiting, Starting on Wed08/20/25 at 1107, For 2 doses Or droperidol (INAPSINE) injection 0.625 mgJump to med 0.625 mg, Intramuscular, Once As Needed, Nausea, Vomiting, Starting on Wed08/20/25 at 1107, For 2 doses Group 2: fentaNYL citrate (PF) (SUBLIMAZE) injection 50 mcgJump to med 50 mcg, Intravenous, Every 5 Minutes PRN, Severe Pain, breakthrough pain, Starting on Wed08/20/25 at 1107, For 4 doses, PACU only. Maximum cumulative total dose of fentanyl is 100 mcg (30 MME) If given for pain, use the following pain scale: Mild Pain = Pain Score of 1-3, CPOT 1-2 Moderate Pain = Pain Score of 4-6, CPOT 3-4 Severe Pain = Pain Score of 7-10, CPOT 5-8 And naloxone (NARCAN) injection 0.4 mgJump to med 0.4 mg, Intravenous, Every 5 Minutes PRN, Respiratory Depression, Starting on Wed08/20/25 at 1107, If respiratory rate is less than 8 breaths/minute or patient is difficult to arouse stop any narcotics and contact physician. Administer slow IV push. Repeat as ordered until patient's respiratory rate is greater than 12 breaths/minute. Group 3: HYDROmorphone (DILAUDID) injection 0.25 mgJump to med 0.25 mg, Intravenous, Every 15 Minutes PRN, Moderate Pain, Starting on Wed08/20/25 at 1107, For 4 doses, Max of 1 mg (20 MME) PACU only. If given for pain, use the following pain scale: Mild Pain = Pain Score of 1-3, CPOT 1-2 Moderate Pain = Pain Score of 4-6, CPOT 3-4 Severe Pain = Pain Score of 7-10, CPOT 5-8 And naloxone (NARCAN) injection 0.4 mgJump to med 0.4 mg, Intravenous, Every 5 Minutes PRN, Respiratory Depression, Starting on Wed08/20/25 at 1107, For 5 doses, If respiratory rate is less than 8 breaths/minute or patient is difficult to arouse stop any narcotics and contact physician. Administer slow IV push. Repeat as ordered until patient's respiratory rate is greater than 12 breaths/minute. Group 4: HYDROmorphone (DILAUDID) injection 0.5 mgJump to med 0.5 mg, Intravenous, Every 15 Minutes PRN, Severe Pain, Starting on 11/24/25 at 1107, For 4 doses, Max of 2 mg (40 MME) PACU only. If given for pain, use the following pain scale: Mild Pain = Pain Score of 1-3, CPOT 1-2 Moderate Pain = Pain Score of 4-6, CPOT 3-4 Severe Pain = Pain Score of 7-10, CPOT 5-8 And naloxone (NARCAN) injection 0.4 mgJump to med 0.4 mg, Intravenous, Every 5 Minutes PRN, Respiratory Depression, Starting on Wed08/20/25 at 1107, If respiratory rate is less than 8 breaths/minute or patient is difficult to arouse stop any narcotics and contact physician. Administer slow IV push. Repeat as ordered until patient's respiratory rate is greater than 12 breaths/minute. Group 5: promethazine (PHENERGAN) suppository 25 mgJump to med 25 mg, Rectal, Once As Needed, Nausea, Vomiting, Starting on Wed08/20/25 at 1107, For 1 dose, If BOTH ondansetron (ZOFRAN) and promethazine (PHENERGAN) are ordered use ondansetron first and THEN promethazine IF ondansetron is ineffective. Or promethazine (PHENERGAN) tablet 25 mgJump to med 25 mg, Oral, Once As Needed, Nausea, Vomiting, Starting on Wed08/20/25 at 1107, For 1 dose, If BOTH ondansetron (ZOFRAN) and promethazine (PHENERGAN) are ordered use ondansetron first and THEN promethazine IF ondansetron is ineffective. 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 The last day before reporting a new confirmed COVID-19 would be 12/08/20. -Alida Banda RN 09/09/2020 12/25/2020 documented as of this encounter Care Teams Pencil Maker Relationship Specialty Start Date End Date Michaela Sousa APRN [address] [place] [address] FELIPE MOLINA [address] PCP - General Internal Medicine 09/04/24 documented as of this encounter
--- OUTSIDE RECORDS SUMMARY | 2025-08-20 08:54 | XMS_ITS | Encounter Summary ---
[facility] Address [address] [place] [address] Care Team Providers Care Acquisition Marketing Coordinator Name Role Phone Michaela Sousa APRN Primary Care Provider + [phone] Reason for Visit * Auth/Cert Specialty Diagnoses / Procedures Referred By Contac t Referred To Contact Procedures TOTAL ROBOTIC HYSTERCETOMY BILATERAL SALPINGO-OOPHRECTOMY Referral ID Status Reason Start Date Expiration Date Visits Re quested Visits Authorized [id number] 1 1 Encounter Details Date Type Department Care Team (Late st Contact Info) Description 08/20/2025 8:54 AM EST - 08/20/2025 10:47 AM EST Surgery [facility] OR [address] [place] [address] Chelita Jackson MD [address] [facility] [address] [place] [address] TOTAL ROBOTIC HYSTERCETOMY BILATERAL SALPINGO-OOPHRECTOMY Social History Tobacco Use Types Packs/Day Years Used Date Smoking Tobacco: Never Passive Smoke Exposure: Never Smokeless Tobacco: Never Alcohol Use Standard Drinks/Week Comments No 0 (1 standard drink = 0.6 oz pur e alcohol) [facility] Utilities Answer Date Recorded In [...] Date Recorded Retired Total Score 0 05/07/2021 [facility] - Occupational [...] things needed for daily living? No 12/10/2024 [place] Depression Scale Answer Date Recorded [place] Depression Scale Total 2 12/22/2024 The thought [...] GED or equivalent No 08/13/2025 Preferred Language [place] Citizen 08/13/2025 PHQ-2 Answer Date Recorded Patient Health [...] 10:45 AM Westley Lux RN * Hand Pathology Lab Technician/Ankle Strength Question Answer Date of Assessment Author Plantarflexion, Right strong 08/20/2025 1:30 PM Westley Lux RN Hand Pathology Lab Technician, Left strong 08/20/2025 1:30 PM Westley Munoz RN * Safety Question Answer Date of Assessment Author All Alarms alarm(s) activated a nd audible 08/20/2025 1:30 PM Westley Lux RN Airway Safety Measures mask valve resuscitator at bedside;manual resuscitator/mask at bedside;oxygen flowmeter at bedside;suction at bedside 08/20/2025 1:30 PM Westley Lux RN * Musculoskeletal Question Answer Date of Assessment Author Musculoskeletal L [facility] 08/20/2025 1:30 PM Westley Cedillo RN * Skin Question Answer Date of Assessment Author Skin L [facility] 08/20/2025 1:30 PM Westley Nielsen [...] 08/20/2025 8:10 AM Sandra Mae RN * [place] Suicide Severity Rating Scale (Screener/Recent Self-Report) Question [...] 09 AM Sandra Mae RN * Hand Pathology Lab Technician/Ankle Strength Question Answer Date of Assessment Author Dorsiflexion, Left strong 08/20/2025 1:30 PM Westley Lux, RN Plantarflexion, Left strong 08/20/2025 1:30 PM E Westley Hunt, RN Hand Pathology Lab Technician, Right strong 08/20/2025 1:30 PM EST Westley Villavicencio RN Hand Pathology Lab Technician, Left strong 08/20/2025 1:30 PM EST Westley [...] Answer Date of Assessment Author Musculoskeletal [facility] 08/20/2025 1:30 PM Westley Cedillo RN * Skin Question Answer Date of Assessment Author Skin L [facility] 08/20/2025 1:30 PM Westley Nielsen RN * Cognitive Question Answer Date of Assessment Author Cognitive/Neuro/Behavioral L [facility] 08/20/2025 1:30 PM Westley Lux, [...] 08/20/2025 8:10 AM Sandra Mae RN * [place] Suicide Severity Rating Scale (Screener/Recent Self-Report) Question [...] Mental Status/LOC/Awareness 0 08/20/2025 10 :45 AM Wesltey Lux RN Toileting Needs 0 08/20/2025 10:45 AM Westley Jimenez RN Volume/Electrolyte Status 2 08/20/2025 10:4 5 AM Westley Lux RN Communication/Sensory 1 08/20/2025 10:45 AM Westley Lux RN Hester Davis Fall Risk Total 5 08/20/2025 1 0:45 AM Westley Lux RN documented as of this encounter Mental Status * [place] Coma Scale Question Answer Entry Date Author [...] or on command 08/20/2025 1:30 PM Westley Lxu RN * Hand Pathology Lab Technician/Ankle Strength Question Answer Entry Date Author Plantarflexion, Right strong 08/20/2025 1:30 PM Westley Lux RN Dorsiflexion, Left strong 08/20/2025 1:30 PM Westley Lux RN Plantarflexion, Left strong 08/20/2025 1:30 PM Westley Johnson RN Hand Pathology Lab Technician, Right strong 08/20/2025 1:30 PM EST Westley Villavicencio RN Hand Pathology Lab Technician, Left strong 08/20/2025 1:30 PM Westley Munoz, [...] Care Everywhere. * Abdominal Hysterectomy Care After ([place] Citizen) * General Anesthesia Adult Care After ([place] Citizen) documented in this encounter Medications at Time [...] Number Phone Number for Ride/Caregiver: ADOLFO SPOUSE [phone] Who will be staying with you post procedure for the next 24 hours? Name and Phone Number?: ADOLFO SPOUSE [phone] documented in this encounter OR Notes * Op Note - Chelita Jackson MD - 08/20/2025 9:39 AM EST Hysterectomy Procedure Note Pre-operative Diagnosis: Endometriosis, pelvic pain Post-operative Diagnosis: Endometriosis, Pelvic pain, and Abdominopelvic adhesions Operation: Robotic hysterectomy with bilateral salpingo oophorectomy, lysis of adhesions, excision of endometriosis, fulguration of endometriosis Surgeon: Chelita Jackson MD Assistants: Code Machine Operator: Cristi Montoya PA-C was responsible [...] Description 10/31/2025 3:15 PM EST Office Visit [facility] [address] [address] Aminata Nassar MD [address] [address] documented as of this encounter Procedures Procedure Name Priority Date/Time Associated Diagnosis Comments TISSUE PATHOLOGY EXAM Routine 08/20/2025 10:03 AM EST Endometriosis GA LAPS FULG/EXC OVARY VISCERA/PERITONEAL SURFACE 08/20/2025 8:57 AM EST Special Needs * TOTAL LAPAROSCOPIC HYSTERECTOMY BILATERAL SALPINGOOPHORECTOMY WITH DAVINCI ROBOT 08/20/2025 8:57 AM EST Special Needs * POCT PEFORM URINE STAT 08/20/2025 8:06 AM EST SCANNED PATHOLOGY 08/20/2025 documented in this encounter Results * Tissue Pathology Exam (08/20/2025 10:03 AM EST) Case Report Surgical Pathology Report Case: [id number] Authorizing Provider: Chelita Jackson MD Collected: 08/20/2025 10:15 AM Ordering Location: [facility] Received: 08/20/2025 11:21 AM OR Pathologist: Wade Lawler MD Specimens: 1) - Peritoneum, Peritoneal Lesion For Permanent 2) - Uterus with Cervix, Bilateral Tubes and Ovaries, in formalin 08/21/2025 12:23 PM EST [facility] Clinical Information Endometriosis 08/21/2025 12:23 PM EST [facility] Final Diagnosis PERITONEAL LESION, BIOPSY: Endometriosis 2. UTERUS, CERVIX, BILATERAL OVARIES AND FALLOPIAN TUBES, HYSTERECTOMY WITH BILATERAL SALPINGO-OOPHORECT JIGAR: Benign cervix with mild chronic cervicitis Benign endometrial glands and stroma Benign bilateral ovaries No fallopian tubes grossly or histologically identified Negative for dysplasia or malignancy 08/21/2025 12:23 PM EST [facility] at 1223 EST Gross Description [...] diameter and sectioning reveals a questionable lumen. Gasoline Pump Installer sections are submitted as follows: 2A: Anterior and posterior cervix 2B: Full-thickness anterior endomyometrium 2C: Full-thickness posterior endomyometrium 2D: Right ovary 2E: Left ovary and possible left fallopian tube HDM 08/21/2025 12:23 PM [facility] Microscopic Description The slides are reviewed and demonstrate histopathologic features supporting the above rendered diagnosis. 08/21/2025 12:23 PM [facility] Tissue Specimen from peritoneum / Unknown 08/20/2025 10:03 AM EST 08/20/2025 11:21 AM EST Tissue specimen (specimen) Uterus and cervix, CS / Unknown 08/20/2025 10:15 AM EST 08/20/2025 11:21 AM EST Chelita Jackson MD PATHOLOGY/CYTOLOGY ORDERABLE S Final Result [facility]
[address] [place] [address], [place] [phone] * POC Urine (08/20/2025 8:06 AM EST) HCG, Urine, QL Negative Negative [facility] Lot Number [id number] [facility] Internal Positive Control Positive Positive, Passed [facility] Internal Negative Control Negative Negative, Passed [facility] Expiration Date 02-18-27 [facility] Urine 08/20/2025 8:06 AM EST Darrell Iyer Jr., MD POINT OF CARE TEST ORDE DOMO Final Result Performing Organization Address City/[facility]/ZIP Co de Phone Number [facility]
[address] [place] [address], [place] [phone] * SCANNED PATHOLOGY (08/20/2025) [facility]TOLOGY ORDERABLES Final Result documented in this [...] 7:52 AM EST 1,000 mg bupivacaine 0.5%-EPINEPHrine 1:411257 (MARCAINE w/EPI) 0.5% -1:153756 injection As Needed, Starting on Wed08/20/25 at [...] day, May switch to NS IV at [facility] if renal / if indicated New Bag [...] and THEN promethazine IF ondansetron is ineffective. ([facility]) scopolamine patch 1 mg/72 hr 1 patch, Transdermal - scopolamine, Administer over 72 Hours, Once, On Wed08/20/25 at 0758, For 1 dose, ([facility]) Medication Applied 08/20/2025 7:52 AM EST [...] On Wed08/20/25 at 0758, For 1 dose, ([facility]) 0752 (Medication Janki lied - Provider: [...] day, May switch to NS IV at [facility] if renal / if indicated 0845 (New Bag - Prov ider: Shannan Juárez CRNA)1029 (New Bag - Provider: Shannan Juárez CRNA)1050 (Stopped - Provider: Shannan Juárez CRNA) lactated ringers infusion 9 mL/hr, Intravenous, Continuous, Starting on Wed08/20/25 at 1109, For 1 day 1109 (Due) PRN Medication Order 08/18/2025 08/19/2025 08/20/2025 bupivacaine 0.5%-EPINEPHrine 1:200118 (MARCAINE w/EPI) 0.5% -1:167166 injection (CANCELED) As Needed, Starting on Wed08/20/25 [...] and THEN promethazine IF ondansetron is ineffective. ([facility]) documented in this encounter Additional Health Concerns Infection Onset Date Last Indicated Resolved Time COVID (History) Comment:Per regional television cabinet finisher for [employer], 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 The last day before reporting a new confirmed COVID-19 would be 12/08/20. -Alida Banda RN 09/09/2020 12/25/2020 documented as of this encounter Care Teams Acquisition Marketing Coordinator Relationship Specialty Start Date End Date Michaela Sousa APRN [facility] [address] [place] [address] PCP - General Internal Medicine 09/04/24 documented as of this encounter
--- OUTSIDE RECORDS SUMMARY | 2025-08-20 09:12 | XMS_ITS | Encounter Summary ---
Author Organization [facility] Address [address] [place] [address] Care Team Providers Care Train System Operator Name Role Phone SousaSoraidarebekah KING Primary Care Provider + [phone] Reason for Visit * Auth/Cert Specialty Diagnoses / Procedures Referred By Contac t Referred To Contact Procedures TOTAL ROBOTIC HYSTERCETOMY BILATERAL SALPINGO-OOPHRECTOMY Referral ID Status Reason Start Date Expiration Date Visits Re quested Visits Authorized [id number] 1 1 Encounter Details Date Type Department Care Team (Late st Contact Info) Description 08/20/2025 9:12 AM EST Anesthesia Event [facility] OR [address] [place] [phone] Darrell Iyer Jr., MD [address] [place] [id number] Anesthesia Record Procedure Summary Procedure Name Responsible Anesthesiologist Anesthesia Start Time Anesthesia Stop Time TOTAL ROBOTIC HYSTERCETOMY BILATERAL SALPINGO-OOPHRECTOMY (Bilateral: Abdomen) Darrell Iyer Jr., MD 08/20/25 0912 08/20/25 1052 Events Date Time Event Comment 08/20/2025 0748 AN Equip Check 0757 0912 An Start The patient was reevaluated immediately before moderate or deep sedation use and before anesthesia induction. 0912 An Start Data 0916 An Induction 0918 An Intubation 1038 An Extubation 1043 an stop data 1051 Handoff to RN The following has been [...] of report from the receiving PACU/ICU team 1052 An Stop Meds Name Total lidocaine PF 1% 1 % 50 mg propofol 10 MG/ML 250 mg rocuronium 50 MG/5ML 80 mg sugammadex 200 MG/2ML 200 mg dexAMETHasone 4 MG/ML 8 mg ondansetron 2 mg/mL 4 mg dexmedetomidine 80 MCG/20ML 10 mcg midazolam 2 MG/2ML 2 mg ceFAZolin 2000 mg IVPB in 100 mL NS (MBP ) 2,000 mg fentaNYL citrate (PF) 50 mcg/mL 50 mcg diphenhydrAMINE 50 MG/ML 12.5 mg glycopyrrolate 1 MG/5ML 0.2 mg propofol (DIPRIVAN) infusion 10 mg/mL 10 0 mL 884.65 mg Methocarbamol (ROBAXIN) injection 1,000 mg 1,000 mg lactated ringers infusion 1,400 mL * Agents Name O2 N2O Air Sevoflurane Inspired Sevoflurane * Blood No blood administrations on file. Lines, Drains, and Airways Type Details Placement Removal Wound 08/20/25; 0939; N; abdomen; Surgical; x4 laparoscopic sites 08/20/25 0939 by Clark Parish RN Peripheral IV Placement Date: 07/29 01/19; Placement Time: 08; Catheter Size: 20 G; Orientation: Anterior, Distal, Left, Upper; Location: Arm; Site Prep: Chlorhexidine; Local Anes: Injectable; Technique: Anatomical landmarks; Inserted by: juanito Noriega RN; Insertion Attempts: 1; Patient Tolerance: Tolerated well; Removal Date: 08/20/25; Removal Time: 1355 08/20/25 0813 by Sandra Chery RN 08/20/25 1355 by Westley Shearer RN ETT Placement Date: 07/29 01/19; Placement Time: 917 (created via procedure documentation); Blade Size: 3; Location: Oral; Removal Date: 08/20/25; Removal Time: 10408/20/25917 by Shannan Juárez CRNA 08/20/25 104 by Shannan Juárez CRNA Urethral Catheter Placement Date: 07/29 01/19; Placement Time: 935; Inserted by: Faisal STEVEN; Size: 16 Fr.; Removal Date: 08/25/25; Removal Time: 1735; Removal Reason: Not present on admission (Not present on arrival to PACU) 08/20/25 09 by Clark Parish RN 08/25/251735 by Camelia Benavides RN documented in this encounter Social History Tobacco Use Types Packs/Day Years Used Date Smoking Tobacco: Never Passive Smoke Exposure: Never Smokeless Tobacco: Never Alcohol Use Standard Drinks/Week Comments No 0 (1 standard drink = 0.6 oz pur e alcohol) [facility] Utilities Answer Date Recorded In the past 12 months has [employer], gas, oil, or water [employer] threatened to shut off services in your [...] Date Recorded Retired Total Score 0 05/07/2021 [facility] [place] of Occupat ional Health - Occupational Stress [...] things needed for daily living? No 12/10/2024 [place] Depression Scale Answer Date Recorded [place] Depression Scale Total 2 12/22/2024 The thought of harming myself has occurred to me . Never 12/22/2024 Abuse Screen Answer Date Recorded Feels Unsafe at Home or Work/School no 08/25/2025 Feels Threatened by Someone no 07/29 Does Anyone Try to Keep You From Having Contact with Others or Doing Things Outside Your Home? no 08/25/2025 Physical Signs of Abuse Present no 08/25/2025 Housing Stability Answer Date Recorded Current Living [...] GED or equivalent No 08/13/2025 Preferred Language Sri Lankan 08/13/2025 PHQ-2 Answer Date Recorded Patient Health [...] PM EDT documented as of this encounter OR Notes * Anesthesia Postprocedure Evaluation - Shannan Juárez CRNA - 08/20/2025 10:52 AM EST Patient: Maia Kovacs Procedure Summary Date: 08/20/25 Room / Location: [facility] OR [address] [place] [address] [facility] OR Anesthesia Start: 911 Anesthesia Stop: 1051 Procedures: TOTAL ROBOTIC HYSTERCETOMY BILATERAL SALPINGO-OOPHRECTOMY (Bilateral: Abdomen) Robotic Assisted LAPAROSCOPY FULGURATION / EXCISION LESIONS (Abdomen) Diagnosis: Surgeons: Chelita Jackson MD Provider: Darrell Iyer Jr., MD Anesthesia Type: general ASA Status: 2 Anesthesia Type: general Vitals Vitals Value Taken Time BP 108/68 08/20/25 10:45 Temp 97 ??F (36.1 ??C) 08/20/25 10:45 Pulse 77 08/20/25 10:51 Resp 14 08/20/25 10:45 SpO2 96 % 08/20/25 10:51 Vitals shown include unfiled device data. Post Anesthesia Care and Evaluation Patient location during evaluation: PACU Patient participation: waiting for patient participation Level of consciousness: sleepy but conscious Pain management: adequate Airway patency: patent Anesthetic complications: No anesthetic complications PONV Status: none Cardiovascular status: hemodynamically stable and acceptable Respiratory status: nonlabored ventilation, acceptable, nasal cannula and oral airway Hydration status: acceptable * Anesthesia Procedure Notes - Shannan Juárez CRNA - 08/20/2025 9:35 AM ESTAssociated Order(s): Airway Airway Reason: elective Date/Time: 08/20/2025 9:18 AM Airway not difficult General Information and Staff Patient location during procedure: OR PIPE CHIPPER/CAA: Shannan Juárez CRNA Indications and Patient Condition Indications for airway management: airway protection Preoxygenated: yes Mask difficulty assessment: 1 - vent by mask Final Airway Details Final airway type: endotracheal airway Successful airway: ETT Cuffed: yes Successful intubation technique: video laryngoscopy Adjuncts used in placement: intubating stylet Endotracheal tube insertion site: oral Blade: Escobedo Blade size: 3 ETT size (mm): 7.0 Cormack-Lehane Classification: grade I - full view of glottis Placement verified by: chest auscultation and capnometry Measured from: teeth ETT/EBT to teeth (cm): 21 Number of attempts at approach: 1 Assessment: lips, teeth, and gum same as pre-op and atraumatic intubation * Anesthesia Preprocedure Evaluation - Darrell Iyer Jr., MD - 08/20/2025 7:56 AM EST Anesthesia Evaluation Patient summary reviewed and Nursing notes reviewed history of anesthetic complications: PONV NPO Solid Status: > 8 hours NPO Liquid Status: > 2 hours Airway Mallampati: I TM distance: >3 FB Neck ROM: full No difficulty expected Dental - normal exam (+) implants Pulmonary (+) asthma, (-) shortness of breath, recent URI, sleep apnea, not a smoker, no home oxygen Cardiovascular ECG reviewed (+) hypertension (-) past UT, dysrhythmias, angina, cardiac stents ROS comment: ECG NSR ECHO 2020 EF 60% no significant valvular disease Neuro/Psych (+) headaches, psychiatric history (-) seizures, CVA GI/Hepatic/Renal/Endo (+) GERD, PUD (-) no renal disease, diabetes, no thyroid disorderLiver disease: enzyme for ATP missing. 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 Plan discussed with PIPE CHIPPER. CODE STATUS: documented in this encounter Plan of Treatment Upcoming Encounters Date Type Department Care Team (Late st Contact Info) Description 10/31/2025 3:15 PM EST Office Visit [facility] [address] [phone] MadayAminata MD 1720 [facility] [address] [place] [address] documented as of this encounter Procedures Procedure Name Priority Date/Time Associated Diagnosis Comments ANESTHESIA INTUBATION Routine 08/20/2025 9:35 AM EST documented in this encounter Results * BH AN ETT AIRWAY (08/20/2025 9:35 AM EST) Narrative Shannan Juárez CRNA - 08/20/2025 9:35 AM EST Shannan Juárez CRNA 08/20/2025 9:35 AM Airway Reason: elective Date/Time: 08/20/2025 9:18 AM Airway not difficult General Information and Staff Patient location during procedure: OR PIPE CHIPPER/CAA: Shannan Juárez CRNA Indications and Patient Condition Indications for airway management: airway protection Preoxygenated: yes Mask difficulty assessment: 1 - vent by mask Final Airway Details Final airway type: endotracheal airway Successful airway: ETT Cuffed: yes Successful intubation technique: video laryngoscopy Adjuncts used in placement: intubating stylet Endotracheal tube insertion site: oral Blade: Escobedo Blade size: 3 ETT size (mm): 7.0 Cormack-Lehane Classification: grade I - full view of glottis Placement verified by: chest auscultation and capnometry Measured from: teeth ETT/EBT to teeth (cm): 21 Number of attempts at approach: 1 Assessment: lips, teeth, and gum same as pre-op and atraumatic intubation us Darrell Iyer Jr., MD ANESTHESIA ORDERABLES F inal Result documented in this encounter Visit Diagnoses Not on filedocumented in this encounter Administered Medications Inactive Administered Medications - up to 3 most recent administrations Medication Order MAR Action Action Date Dose Rate Site ceFAZolin 2000 mg IVPB in 100 mL NS (MBP) 2,000 mg, Intravenous, Administer over 30 Minutes, Once, On Wed08/20/25 at 0743, For 1 dose, Caution: Look alike/sound alike drug alert, Indications: Surgical ProphylaxisIndications:Surgical Prophylaxis New 08/20/2025 9:20 AM EST 2,000 mg dexAMETHasone (DECADRON) injection Intravenous, As Needed, Starting on Wed08/20/25 at 0916 Given 08/20/2025 9:16 AM EST 8 mg dexmedetomidine (PRECEDEX) injection Nasal, As Needed, Starting on Wed08/20/25 at 0948 Given 08/20/2025 9:48 AM EST 10 mcg diphenhydrAMINE (BENADRYL) injection Intravenous, As Needed, Starting on Wed08/20/25 at 0934 Given 08/20/2025 9:34 AM EST 12.5 mg fentaNYL citrate (PF) (SUBLIMAZE) injection Intravenous, As Needed, Starting on Wed08/20/25 at 0916 Given 08/20/2025 9:16 AM EST 50 mcg glycopyrrolate (ROBINUL) injection Intravenous, As Needed, Starting on Wed08/20/25 at 0943 Given 08/20/2025 9:43 AM EST 0.2 mg lactated ringers infusion 9 mL/hr, Intravenous, Continuous, Starting on Wed08/21/25 at 0600, For 1 day, May switch to NS IV at KVO if renal / if indicated New 08/20/2025 10:29 AM EST New Bag 08/20/2025 8:45 AM EST lidocaine PF 1% (XYLOCAINE) injection Intravenous, As Needed, Starting on Wed08/20/25 at 0916 Given 08/20/2025 9:16 AM EST 50 mg Methocarbamol (ROBAXIN) injection 1,000 mg 1,000 mg, Intravenous, Once, On Wed08/20/25 at 1002, For 1 dose, 1. For IV Admin: Give while recumbent maintain position for 15-30 min. Give slow IV push over 5 min not to exceed 3mL/min 2. For IM Admin: a max of 5mL can be administered into each gluteal region. Given 08/20/2025 10:28 AM EST 1,000 mg midazolam (VERSED) injection Intravenous, As Needed, Starting on Wed08/20/25 at 0909 Given 08/20/2025 9:09 AM EST 2 mg ondansetron (ZOFRAN) injection Intravenous, As Needed, Starting on Wed08/20/25 at 1027 Given 08/20/2025 10:27 AM EST 4 mg propofol (DIPRIVAN) infusion 10 mg/mL 100 mL Intravenous, Continuous PRN, Starting on Wed08/20/25 at 0917 Rate/Dose Change 08/20/2025 10:27 AM EST 130 mcg/kg/min 55.224 mL/hr Rate/Dose Change 08/20/2025 9:58 AM EST 160 mcg/kg/min 67. 968 mL/hr Rate/Dose Change 08/20/2025 9:49 AM EST 175 mcg/kg/min 74. 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 The last day before reporting a new confirmed COVID-19 would be 12/08/20. -Alida Banda RN 09/09/2020 12/25/2020 documented as of this encounter Care Teams Train System Operator Relationship Specialty Start Date End Date Michaela Sousa APRN [address] [place] [address] [place] [id number] PCP - General Internal Medicine 09/04/24 documented as of this encounter
--- OUTSIDE RECORDS SUMMARY | 2025-08-25 16:28 | XMS_ITS | Encounter Summary ---
Author Organization [facility] Address [address] [place] [address] Care Team Providers Care [employer] We[employer] Sergeant Name Role Phone Michaela Sousa APRN Primary Care Provider + [phone] Reason for Visit * Reason Comments Pain Encounter Details Date Type Department Care Team (Late st Contact Info) Description 08/25/2025 4:28 PM EST - 08/25/2025 7:45 PM [facility] Emergency PSYCHIATRIC EMERGENCY DEPARTMENT [address] [place] [id number] Kalin Morales DO [address] [facility] [address] Lower abdominal pain (Primary Dx); History of recent surgery Discharge Disposition: Home or Self Care Social History Tobacco Use Types Packs/Day Years Used Date Smoking Tobacco: Never Passive Smoke Exposure: Never Smokeless Tobacco: Never Alcohol Use Standard Drinks/Week Comments No 0 (1 standard drink = 0.6 oz pur e alcohol) [facility] Utilities Answer Date Recorded In the past 12 months has [employer], gas, oil, or water company threatened [...] Recorded Retired Total Score 0 05/07/2021 [facility] of Occupat [...] things needed for daily living? No 12/10/2024 [place] Depression Scale Answer Date Recorded [place] Depression Scale Total 2 12/22/2024 The thought [...] GED or equivalent No 08/13/2025 Preferred Language Fijian 08/13/2025 PHQ-2 Answer Date Recorded Patient Health [...] WDJuani 08/25/2025 5:15 PM EST Sarah Lopez, Area Representative * Calculated C-SSRS Risk Score (Lifetime/Recent) Answer Date of Assessment Author No Risk Indicated 08/25/2025 4:27 PM EST Last Issa, RN * [place] Suicide Severity Rating Scale (Screener/Recent Self-Report) Question [...] 0 08/25/2025 5:15 PM EST Sarah Kam, Area Representative Mobility 1 08/25/2025 5:15 PM EST Sarah Lopez, Area Representative Medications 0 08/25/2025 5:15 PM EST Sarah Lopez, Area Representative Mental Status/LOC/Awareness 0 08/25/2025 5: 15 PM EST Sarah Al, Area Representative Toileting Needs 0 08/25/2025 5:15 PM EST Sarah Kam, Area Representative Volume/Electrolyte Status 3 08/25/2025 5:15 PM EST Sarah Al, Area Representative Communication/Sensory 1 08/25/2025 5:15 PM EST Sarah Al, Area Representative Libra Griffiths Fall Risk Total 6 08/25/2025 5 :15 PM EST Sarah Al, Area Representative * Peripheral Neurovascular (Adult) Question Answer Date of Assessment Author Peripheral Neurovascular [facility] 08/25/2025 5 :14 PM EST Sarah Al, Area Representative * Cardiac (Adult) Question Answer Date of Assessment Author Cardiac [facility] 08/25/2025 5:13 PM EST Sarah Lopez, Area Representative * Safety (Adult) Question Answer Date of Assessment Author Safety [facility] 08/25/2025 5:15 PM EST Sarah Lopez, Area Representative * Neuro Cognitive (Adult) Question Answer Date of Assessment Author Cognitive/Neuro/Behavioral [facility] 08/25/2025 5:15 PM EST Ha Al N, Area Representative * Violence Assessment Tool Risk Indicators Question [...] 4:27 PM EST Last Issa, DEEPAK * [place] Suicide Severity Rating Scale (Screener/Recent Self-Report) Question [...] 0 08/25/2025 5:15 PM EST Sarah Kam, Area Representative Mobility 1 08/25/2025 5:15 PM EST Sarah Lopez, Area Representative Medications 0 08/25/2025 5:15 PM EST Sarah Lopez, Area Representative Mental Status/LOC/Awareness 0 08/25/2025 5: 15 PM EST Sarah Al, Area Representative Toileting Needs 0 08/25/2025 5:15 PM EST Sarah Kam, Area Representative Volume/Electrolyte Status 3 08/25/2025 5:15 PM EST Sarah Al, Area Representative Communication/Sensory 1 08/25/2025 5:15 PM EST Sarah Al, Area Representative Libra Griffiths Fall Risk Total 6 08/25/2025 5 :15 PM EST Sarah Al, Area Representative documented as of this encounter Mental Status * Cardiac (Adult) Question Answer Entry Date Author Cardiac [facility] 08/25/2025 5:13 PM EST Sarah Lopez, Area Representative * Safety (Adult) Question Answer Entry Date Author Safety [facility] 08/25/2025 5:15 PM EST Sarah Lopez, Area Representative * Neuro Cognitive (Adult) Question Answer Entry Date Author Cognitive/Neuro/Behavioral [facility] 08/25/2025 5:15 PM EST Ha Al, Area Representative * Violence Assessment Tool Risk Indicators Question [...] through Care Everywhere. * Abdominal Pain Adult (Fijian) documented in this encounter Medications at Time [...] for Opioid Reversal. Call 911. Don't prime. [place] in 1 nostril for overdose. Repeat in [...] 07/07 CLAUDINE Provider Statement: Patient or patient employee's representative verbalized consent for the use of [...] mckinley to being cut. She contacted her decorating and assembly supervisor-electronics engineering technician today due to depletion of her prescribed analgesic, oxycodone 10 mg, earlier today. She is unable to take ibuprofen dueto a history of gastrointestinal bleeding and has been alternating with acetaminophen, but her painhas escalated to a severe level. Her decorating and assembly supervisor-electronics engineering technician advised her to seek emergency care if [...] A computed tomography (CT) scan performed at [facility] due to her severe pain revealed no [...] History: Diagnosis Date Abdominal pain Adrenal insufficiency (Northwest Arctic's disease) Anemia Cholelithiasis Lap ginacia 2010 Elevated liver enzymes 02/27/2018 Gastric ulcer [...] SECTION REPEAT; Surgeon: Seda Sutton MD; Location: [facility];Service: Obstetrics/Gynecology; Laterality: N/A; CHOLECYSTECTOMY 2008 COLONOSCOPY N/A 09/28/2018 Procedure: COLONOSCOPY; Surgeon: Jens Zuluaga MD; Location: [facility]; Service: Gastroenterology CYSTOSCOPY RETROGRADE PYELOGRAM Right 12/18/2022 Procedure: CYSTOSCOPY RIGHT RETROGRADE PYELOGRAM, DIAGNOSTIC URETEROSCOPY, RIGHT URETERAL STENT; Surgeon: Raulito Lancaster MD; Location: [facility]; Service: Urology; Laterality: Right; ENDOSCOPY N/A 12/10/2017 Procedure: ESOPHAGOGASTRODUODENOSCOPY; Surgeon: Jens Zuluaga MD; Location: [facility]; Service: Gastroenterology ENDOSCOPY N/A 05/12/2018 Procedure: ESOPHAGOGASTRODUODENOSCOPY; Surgeon: Jens Zuluaga MD; Location: [facility]; Service: Gastroenterology ENDOSCOPY N/A 05/17/2022 Procedure: ESOPHAGOGASTRODUODENOSCOPY; Surgeon: Jens Morales MD; Location: [facility]; Service: Gastroenterology; Laterality: N/A; ENDOSCOPY N/A 05/17/2025 Procedure: ESOPHAGOGASTRODUODENOSCOPY; Surgeon: Aminata Nassar MD; Location: [facility]; Service: Gastroenterology; Laterality: N/A; FULGURATION ENDOMETRIOSIS 2019 (done twice) KNEE MENISCECTOMY Left LIVER BIOPSY 2018 LUMBAR SYMPATHETIC NERVE BLOCK PELVIC LAPAROSCOPY N/A 08/20/2025 Procedure: ROBOTIC ASSISTED LAPAROSCOPY FULGURATION / EXCISION LESIONS; Surgeon: Chelita Jackson MD; Location: [facility]; [...] pH, UA 6.5 5.0 - 8.0 Specific [place], UA 1.009 1.005 - 1.030 Glucose, UA [...] the previous pain. A CT scan from [facility] on 08/20/2025 showed status post hysterectomy, [...] was slightly elevated. Imaging CT scan from [facility] on 08/20/2025 showed status post hysterectomy, pneumoperitoneum likely recentsurgery, erythema bladder lumen likely consistent with the recent [place]. No abnormal findings appreciated. ED Course as of 08/30/258 Sat Aug 25, [address] scan from [facility] on 1124 5 days ago impression status [...] MD. Specialty: Gynecology Contact information: [address] [facility] [address] [id number] Michaela Sousa, FERNANDO. Specialty: Internal Medicine Why: As needed Contact information: [address] [facility] [id number] PSYCHIATRIC EMERGENCY DEPARTMENT. Specialty: Emergency Medicine Why: If symptoms worsen Contact information: [address] [facility] [address] Your medication list START taking these medications Instructions Last Dose Given Next Dose Due naloxone 4 MG/0.1ML nasal spray Commonly known as: NARCAN Administer 1 spray into the nostril(s) as directed by provider As Needed for Opioid Reversal. Call 911. Don't prime. [place] in 1 nostril for overdose. Repeat in [...] Medications These medications were sent to [facility] - [place], [place] - [address] - [phone] - [phone] [facility] [address] naloxone 4 MG/0.1ML nasal spray oxyCODONE-acetaminophen 10-325 MG per tablet Please note that portions of this note were completed with a voice recognition program. Note Disclaimer: At [facility], we believe that sharing information builds trust and better relationships. You are receiving this note because you recently visited [facility]. It is possible you will see health [...] Description 10/31/2025 3:15 PM EST Office Visit [facility] GASTRO[facility]OLOGY [address] [phone] Aminata Nassar MD [address] [address] documented as of this encounter Procedures Procedure [...] - 2.0 mmol/L 08/25/2025 6:16 PM EST PSYCHIATRIC LABORATORY Comment:Falsely depressed re sults may occur on samples drawn from patients receiving N-Acetylcysteine (NAC) or Metamizole. Blood Venipuncture / Unknown 08/25/2025 5:25 PM EST 08/25/2025 5:48 PM EST us Kalin Morales DO LAB BLOOD ORDERABLES Final Resul t PSYCHIATRIC LABORATORY
[address] [place] [address], * (ABNORMAL) CBC Auto Differential (08/25/2025 5:25 PM EST) Pathologist [facility] WBC 7.35 3.40 - 10.80 10*3/mm3 08/25/2025 5:43 PM EST PSYCHIATRIC LABORATORY RBC 4.11 3.77 - 5.28 10*6/mm3 08/25/2025 5:43 PM EST PS[facility]AT[facility]IC LABORATORY Hemoglobin 11.5(L) 12.0 - 15.9 g/dL 08/25/2025 5:43 PM EST [facility]IC LABOR[facility]ORY Hematocrit 35.4 34.0 - 46.6 % 08/25/2025 5:43 PM EST [facility] MCV 86.1 79.0 - 97.0 fL 08/25/2025 5:43 PM EST [facility] LAB[facility]ORY MCH 28.0 26.6 - 33.0 pg 08/25/2025 5:43 PM EST [facility] LAB[facility]ORY MCHC 32.5 31.5 - 35.7 g/dL 08/25/2025 5:43 PM EST [facility] LAB[facility]ORY RDW 13.2 12.3 - 15.4 % 08/25/2025 5:43 PM EST [facility]IC LAB[facility]ORY RDW-SD 41.3 37.0 - 54.0 fl 08/25/2025 5:43 PM EST [facility]AT[facility]IC LAB[facility]ORY MPV 8.9 6.0 - 12.0 fL 08/25/2025 5:43 PM [facility] Platelets 291 140 - 450 10*3/mm3 08/25/2025 5:43 PM [facility] Neutrophil % 64.8 42.7 - 76.0 % 08/25/2025 5:43 PM [facility] Lymphocyte % 19.9 19.6 - 45.3 % 08/25/2025 5:43 PM [facility] Monocyte % 9.0 5.0 - 12.0 % 08/25/2025 5:43 PM [facility] Eosinophil % 4.8 0.3 - 6.2 % 08/25/2025 5:43 PM [facility] Basophil % 0.8 0.0 - 1.5 % 08/25/2025 5:43 PM [facility] Immature Grans % 0.7(H) 0.0 - 0.5 % 08/25/2025 5:43 PM [facility] Neutrophils, Absolute 4.77 1.70 - 7.00 10*3/mm3 08/25/2025 5:43 PM [facility] Lymphocytes, Absolute 1.46 0.70 - 3.10 10*3/mm3 08/25/2025 5:43 PM [facility] Monocytes, Absolute 0.66 0.10 - 0.90 10*3/mm3 08/25/2025 5:43 PM [facility] Eosinophils, Absolute 0.35 0.00 - 0.40 10*3/mm3 08/25/2025 5:43 PM [facility] Basophils, Absolute 0.06 0.00 - 0.20 10*3/mm3 08/25/2025 5:43 PM [facility] Immature Grans, Absolute 0.05 0.00 - 0.05 10*3/mm3 08/25/2025 5:43 PM [facility] nRBC 0.0 0.0 - 0.2 /100 WBC 08/25/2025 5:43 PM [facility] Blood Venipuncture / Unknown 08/25/2025 5:25 PM EST 08/25/2025 5:40 PM EST us Kalin Morales LAB BLOOD ORDERABLES Final Resul t PSYCHIATRIC LABORATORY
[address] [place] [address], * Comprehensive Metabolic Panel (08/25/2025 5:25 PM EST) [facility] Glucose 91 65 - 99 mg/dL 08/25/2025 6:16 PM EST PSYCHIATRIC LABORATORY BUN 8.7 6.0 - 20.0 mg/dL 08/25/2025 6:16 PM EST [facility] LAB[facility] Creatinine 0.57 0.57 - 1.00 mg/dL 08/25/2025 6:16 PM EST [facility] LAB[facility] Sodium 142 136 - 145 mmol/L 08/25/2025 6:16 PM EST [facility] LAB[facility] Potassium 3.9 3.5 - 5.2 mmol/L 08/25/2025 6:16 PM EST [facility] LAB[facility] Chloride 104 98 - 107 mmol/L 08/25/2025 6:16 PM EST [facility] LAB[facility] CO2 27.6 22.0 - 29.0 mmol/L 08/25/2025 6:16 PM EST [facility] LAB[facility] Calcium 9.3 8.6 - 10.5 mg/dL 08/25/2025 6:16 PM EST [facility] LAB[facility] Total Protein 7.1 6.0 - 8.5 g/dL 08/25/2025 6:16 PM EST [facility] Albumin 4.2 3.5 - 5.2 g/dL 08/25/2025 6:16 PM EST [facility]IC LAB[facility]ORY ALT (SGPT) 14 1 - 33 U/L 08/25/2025 6:16 PM [facility] AST (SGOT) 19 1 - 32 U/L 08/25/2025 6:16 PM EST PS[facility]IATRIC LABOR[facility]ORY Alkaline Phosphatase 109 39 - 117 U/L 08/25/2025 6:16 PM EST [facility] LAB[facility] Total Bilirubin <0.2 0.0 - 1.2 mg/dL 08/25/2025 6:16 PM EST [facility] LAB[facility] Globulin 2.9 gm/dL 08/25/2025 6:16 PM EST [facility]AT[facility]IC LABOR[facility]ORY Comment:Calculated Result A/G Ratio 1.4 g/dL 08/25/2025 6:16 PM EST [facility]IC LAB[facility] BUN/Creatinine Ratio 15.3 7.0 - 25.0 08/25/2025 6:16 PM EST [facility] LAB[facility] Anion Gap 10.4 5.0 - 15.0 mmol/L 08/25/2025 6:16 PM EST [facility] LAB[facility] eGFR 123.2 >60.0 mL/min/1.7 3 08/25/2025 6:16 PM EST [facility]AT[facility]IC LAB[facility]ORY Blood Venipuncture / Unknown 08/25/2025 5:25 PM EST 08/25/2025 5:48 PM EST [facility] LAB[facility]ATORY - 08/25/2025 6:16 PM EST [...] DO LAB BLOOD ORDERABLES Final Resul t PSYCHIATRIC LABORATORY
[address] [place] [address], * Urinalysis, Microscopic Only - Urine, Clean Catch (08/25/2025 5:20 PM EST) RBC, UA 0-2 None Seen, 0-2 /HPF 08/25/2025 5:48 PM EST [facility] LAB[facility] WBC, UA 0-2 None Seen, 0-2 /HPF 08/25/2025 5:48 PM EST [facility] Bacteria, UA None Seen None Seen /HPF 08/25/2025 5:48 PM EST [facility] Squamous Epithelial Cells, UA 0-2 None Seen, 0-2 /HPF 08/25/2025 5:48 PM EST [facility] LAB[facility] Hyaline Casts, UA None Seen None Seen /LPF 08/25/2025 5:48 PM [facility] Methodology Automated Microscopy 08/25/2025 5:48 PM [facility] Urine Urine specimen obtained by clean catch procedure / Unknown Collection / Unknown 08/25/2025 5:20 PM EST 08/25/2025 5:40 PM EST Kalin Moraels DO URINE ORDERABLES Final Result PSYCHIATRIC LABORATORY
[address] [place] [address], * (ABNORMAL) Urinalysis With Microscopic If Indicated (No Culture) - Urine, Clean Catch (08/25/2025 5:20 PM EST) Color, UA Yellow Yellow, Straw 08/25/2025 5:48 PM [facility] Appearance, UA Cloudy(A) Clear 08/25/2025 5:48 PM EST PS[facility]IATRIC LABORATORY pH, UA 6.5 5.0 - 8.0 08/25/2025 5:48 PM [facility] Specific [place], UA 1.009 1.005 - 1.030 08/25/2025 5:48 PM [facility] Glucose, UA Negative Negative 08/25/2025 5:48 PM [facility] Ketones, UA Negative Negative 08/25/2025 5:48 PM EST PS[facility]CHIATRIC LABORATORY Bilirubin, UA Negative Negative 08/25/2025 5:48 PM EST [facility] LAB[facility] Blood, UA Negative Negative 08/25/2025 5:48 PM EST [facility] LAB[facility] Protein, UA Negative Negative 08/25/2025 5:48 PM EST [facility] LAB[facility] Leuk Esterase, UA Negative Negative 08/25/2025 5:48 PM EST [facility] LAB[facility] Nitrite, UA Negative Negative 08/25/2025 5:48 PM EST [facility] LAB[facility] Urobilinogen, UA 0.2 E.U./dL 0.2 - 1.0 E.U./dL 08/25/2025 5:48 PM EST PSYCHIATRIC LABORATORY Urine Urine specimen obtained by clean catch procedure / Unknown Collection / Unknown 08/25/2025 5:20 PM EST 08/25/2025 5:40 PM EST Kalin Morales DO URINE ORDERABLES Final Result Performing Organization Address City/State/[facility] Co de Phone Number PSYCHIATRIC LABORATORY
[address] [place] [address], documented in this encounter Visit Diagnoses Diagnosis [...] 172 (Given - Provid er: Sarah Al, Area Representative) oxyCODONE-acetaminophen (PERCOCET) 10-325 MG per tablet 1 [...] (New Bag - Prov ider: Sarah Al, Area Representative)190 (Stopped - Provider: Alejandra Chan RN) PRN [...] 1729 (Given - Provid er: Sarah Al, Area Representative)1747 (Given - Provider: Alejandra Chan, DEEPAK) sodium [...] Indicated Resolved Time COVID (History) Comment:[facility] 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 The last day before reporting a new confirmed COVID-19 would be 12/08/20. -Alida Banda RN 09/09/2020 12/25/2020 documented as of this encounter Care Teams [employer] We[employer] Sergeant Relationship Specialty Start Date End Date Michaela Sousa APRN [facility] [address] [place] [address] PCP - General Internal Medicine 09/04/24 documented as of this encounter
--- OUTSIDE RECORDS SUMMARY | 2025-08-28 13:55 | XMS_ITS | Encounter Summary ---
Author Organization [facility] yste Address [address] [place] [address] Care Team Providers Care Machine Clipper Name Role Phone Michaela Sousa APRN Primary Care Provider + [phone] Encounter Details Date Type Department Care Team (Late st Contact Info) Description 08/28/2025 1:55 PM EST Lab [facility] [address] [place] [address] Post-op pain Social History Tobacco Use Types Packs/Day Years Used Date Smoking Tobacco: Never Passive Smoke Exposure: Never Smokeless Tobacco: Never Alcohol Use Standard Drinks/Week Comments No 0 (1 standard drink = 0.6 oz pur e alcohol) [facility] Utilities Answer Date Recorded In the past 12 months has [employer] electric, gas, oil, or water company threatened [...] Recorded Retired Total Score 0 05/07/2021 [facility] of Occupat ional Health - Occupational Stress [...] things needed for daily living? No 12/10/2024 [place] Depression Scale Answer Date Recorded [place] Depression Scale Total 2 12/22/2024 The thought [...] GED or equivalent No 08/13/2025 Preferred Language Kittitian 08/13/2025 PHQ-2 Answer Date Recorded Patient Health [...] 3:15 PM EST Office Visit [facility] [address] [phone] Aminata Nassar MD [address] [address] documented as of this encounter Procedures Procedure Name Priority Date/Time Associated Diagnosis Comments CBC WITH AUTO DIFFERENTIAL Routine 08/28/2025 1:36 PM EST Post-op pain CBC AND DIFFERENTIAL Routine 08/28/2025 1:36 PM EST Post-op pain BASIC METABOLIC PANEL Routine 08/28/2025 1:36 PM EST Post-op pain documented in this encounter Results * (ABNORMAL) CBC Auto Differential (08/28/2025 1:36 PM EST) WBC 12.21(H) 3.40 - 10.80 10*3/mm3 08/28/2025 7:00 PM [facility] RBC 4.20 3.77 - 5.28 10*6/mm3 08/28/2025 7:00 PM [facility] Hemoglobin 11.9(L) 12.0 - 15.9 g/dL 08/28/2025 7:00 PM [facility] Hematocrit 37.0 34.0 - 46.6 % 08/28/2025 7:00 PM [facility] MCV 88.1 79.0 - 97.0 fL 08/28/2025 7:00 PM [facility] MCH 28.3 26.6 - 33.0 pg 08/28/2025 7:00 PM [facility] MCHC 32.2 31.5 - 35.7 g/dL 08/28/2025 7:00 PM [facility] RDW 12.6 12.3 - 15.4 % 08/28/2025 7:00 PM [facility] RDW-SD 40.5 37.0 - 54.0 fl 08/28/2025 7:00 PM [facility] MPV 9.1 6.0 - 12.0 fL 08/28/2025 7:00 PM [facility] Platelets 320 140 - 450 10*3/mm3 08/28/2025 7:00 PM [facility] Neutrophil % 77.1(H) 42.7 - 76.0 % 08/28/2025 7:00 PM [facility] Lymphocyte % 12.1(L) 19.6 - 45.3 % 08/28/2025 7:00 PM [facility] Monocyte % 6.5 5.0 - 12.0 % 08/28/2025 7:00 PM [facility] Eosinophil % 3.2 0.3 - 6.2 % 08/28/2025 7:00 PM [facility] Basophil % 0.7 0.0 - 1.5 % 08/28/2025 7:00 PM [facility] Immature Grans % 0.4 0.0 - 0.5 % 08/28/2025 7:00 PM [facility] Neutrophils, Absolute 9.42(H) 1.70 - 7.00 10*3/mm3 08/28/2025 7:00 PM [facility] Lymphocytes, Absolute 1.48 0.70 - 3.10 10*3/mm3 08/28/2025 7:00 PM [facility] Monocytes, Absolute 0.79 0.10 - 0.90 10*3/mm3 08/28/2025 7:00 PM [facility] Eosinophils, Absolute 0.39 0.00 - 0.40 10*3/mm3 08/28/2025 7:00 PM [facility] Basophils, Absolute 0.08 0.00 - 0.20 10*3/mm3 08/28/2025 7:00 PM [facility] Immature Grans, Absolute 0.05 0.00 - 0.05 10*3/mm3 08/28/2025 7:00 PM [facility] nRBC 0.0 0.0 - 0.2 /100 WBC 08/28/2025 7:00 PM [facility] Blood Venipuncture / Unknown 08/28/2025 1:36 PM EST 08/28/2025 1:36 PM EST us Chelita Jackson MD LAB BLOOD ORDERABLES Final R esult [facility]
[address] [place] [address], * (ABNORMAL) Basic Metabolic Panel (08/28/2025 1:36 PM EST) Pathologist [facility] Glucose 92 65 - 99 mg/dL 08/28/2025 8:02 PM [facility] BUN 8.0 6.0 - 20.0 mg/dL 08/28/2025 8:02 PM [facility] Creatinine 0.70 0.57 - 1.00 mg/dL 08/28/2025 8:02 PM [facility] Sodium 136 136 - 145 mmol/L 08/28/2025 8:02 PM [facility] Potassium 3.9 3.5 - 5.2 mmol/L 08/28/2025 8:02 PM [facility] Chloride 100 98 - 107 mmol/L 08/28/2025 8:02 PM [facility] CO2 21.7(L) 22.0 - 29.0 mmol/L 08/28/2025 8:02 PM [facility] Calcium 9.3 8.6 - 10.5 mg/dL 08/28/2025 8:02 PM [facility] BUN/Creatinine Ratio 11.4 7.0 - 25.0 08/28/2025 8:02 PM [facility] Anion Gap 14.3 5.0 - 15.0 mmol/L 08/28/2025 8:02 PM [facility] eGFR 117.3 >60.0 mL/min/1.7 3 08/28/2025 8:02 PM [facility] Blood Venipuncture / Unknown 08/28/2025 1:36 PM EST 08/28/2025 1:36 PM [facility] - 08/28/2025 8:02 PM EST GFR Categories in Chronic Kidney [...] not include race as a factor us Chelita Jackson MD LAB BLOOD ORDERABLES Final R esult [facility]
[address] [place] [address], documented in this encounter Visit Diagnoses Diagnosis Post-op pain Other acute postoperative pain documented in this encounter Additional Health Concerns Infection Onset Date Last Indicated Resolved Time COVID (History) Comment:Per regional inventory accountant for [facility], 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 The last day before reporting a new confirmed COVID-19 would be 12/08/20. -Alida Banda RN 09/09/2020 12/25/2020 documented as of this encounter Care Teams Machine Clipper Relationship Specialty Start Date End Date Michaela Sousa APRN [address] [address] PCP - General Internal Medicine 09/04/24 documented as of this encounter
--- OUTSIDE RECORDS SUMMARY | 2025-09-08 10:34 | XMS_ITS | Encounter Summary ---
Author Organization [facility] Address [address] [place] [address] Care Team Providers Care Signal Circuit Designer Name Role Phone SousaMichaela sheehan FERNANDO Primary Care Provider + [phone] Reason for Visit * Reason Comments Abdominal Pain Encounter Details Date Type Department Care Team (Late st Contact Info) Description 09/08/2025 10:34 AM EST - 09/08/2025 2:48 PM [facility] Emergency [facility] EMERGENCY DEPARTMENT [address] [place] [id number] Gorge Blanco MD [address] [facility] [place] [address] Lower abdominal pain (Primary Dx); Right lower quadrant abdominal pain Discharge Disposition: Home or Self Care Social History Tobacco Use Types Packs/Day Years Used Date Smoking Tobacco: Never Passive Smoke Exposure: Never Smokeless Tobacco: Never Alcohol Use Standard Drinks/Week Comments No 0 (1 standard drink = 0.6 oz pur e alcohol) [facility] Utilities Answer Date Recorded In the past [address] [employer], gas, oil, or water company threatened to [...] Date Recorded Retired Total Score 0 05/07/2021 [employer] Occupat ional Health - Occupational Stress [...] things needed for daily living? No 12/10/2024 Burton Depression Scale Answer Date Recorded Burton Depression Scale Total 2 12/22/2024 The thought [...] GED or equivalent No 08/13/2025 Preferred Language Jamaican 08/13/2025 PHQ-2 Answer Date Recorded Patient Health [...] 09/08/2025 10:34 AM Roque Coles RN * [place] Suicide Severity Rating Scale (Screener/Recent Self-Report) Question [...] Cardiac WDL WDL 09/08/2025 10:50 AM Gosia Mnarique RN * Peripheral/Neurovascular WDL Question Answer Date [...] RN Boisterous 0 09/08/2025 10:34 AM Roque oCles RN Verbal Threats 0 09/08/2025 10:34 AM [...] No Risk Indicated 09/08/2025 10:34 AM Roque Coels RN * [place] Suicide Severity Rating Scale (Screener/Recent Self-Report) Question [...] You will need to follow-up with your ELECTRICIAN'S ASSISTANT for additional medication. * Attachments The following attachments cannot be sent through Care Everywhere. * Abdominal Pain Adult Prae-lu-Hldv (Jamaican) documented in this encounter Medications at Time [...] for Opioid Reversal. Call 911. Don't prime. [place] in 1 nostril for overdose. Repeat in [...] EST Clara Maia Kovacs : 1990 CSN: [id number] Consult Requested By Namita Consulting Service: Gynecology [...] History: Diagnosis Date Abdominal pain Adrenal insufficiency ([place]'s disease) Anemia Cholelithiasis Lap ignacia 2010 Elevated [...] BILATERAL SALPINGO-OOPHRECTOMY; Surgeon: Chelita Jackson MD; Location: [facility]; [facility]; Laterality: Bilateral; TUBAL ABDOMINAL LIGATION 12/10/2024 UPPER [...] for Opioid Reversal. Call 911. Don't prime. [place] in 1 nostril for overdose. Repeat in [...] of postoperative pain[facility] and normal labs [...] dose last night. Patient did call the DISCHARGE RN and was prescribed baclofen. Patient has an [...] SECTION PRIMARY; Surgeon: Raghavendra Orozco MD; Location: [facility]IVERY;Service: Obstetrics/Gynecology; Laterality: N/A; SECTION N/A 12/10/2024 Procedure: SECTION REPEAT; Surgeon: Seda Sutton MD; Location: [facility]IVERY;Service: Obstetrics/Gynecology; Laterality: N/A; CHOLECYSTECTOMY 2008 COLONOSCOPY N/A 09/28/2018 Procedure: COLONOSCOPY; Surgeon: Jens Zuluaga MD; Location: [facility] ENDOSCOPY; Service: Gastroenterology CYSTOSCOPY RETROGRADE PYELOGRAM Right 12/18/2022 Procedure: CYSTOSCOPY RIGHT RETROGRADE PYELOGRAM, DIAGNOSTIC URETEROSCOPY, RIGHT URETERAL STENT; Surgeon: Raulito Lancaster MD; Location: [facility]; Service: Urology; Laterality: Right; ENDOSCOPY N/A 12/10/2017 Procedure: ESOPHAGOGASTRODUODENOSCOPY; Surgeon: Jens Zuluaga MD; Location: [facility]OSCOPY; Service: Gastroenterology ENDOSCOPY N/A 05/12/2018 Procedure: [...] pH, UA 6.0 5.0 - 8.0 Specific [place], UA 1.017 1.005 - 1.030 Glucose, UA [...] MD 09/08/2025 12:25 PM EST Workstation ID: [id number] [] Radiologist's Report Reviewed: I ordered and [...] dose last night. Patient did call the DISCHARGE RN and was prescribed baclofen. Patient has an appointment to see Dr. Jackson next week. Patient advises that she is here for pain management. Problems Addressed: Lower abdominal pain: complicated acute illness or injury Details: CT Of the abdomen and pelvis is negative for acute findings. findings were discussed with the patient at this time. ELECTRICIAN'S ASSISTANT was consulted. ELECTRICIAN'S ASSISTANT came to evaluate the patient in the [...] need to follow-up as outpatient with her ELECTRICIAN'S ASSISTANT. Patient advises that she spoke with someone with Dr. Jackson's office. She advises that she was told thatthey would come in and evaluate her. [KG] 1326 Dr. Chery with [facility] is paged at this time. [KG] 1420 [facility] at bedside to assess the patient. [KG] ED Course User Index [KG] Namita Hernandez, INDUSTRIAL MACHINE ASSEMBLER DIAGNOSIS Final diagnoses: Lower abdominal pain DISPOSITION [...] their choice. FOLLOW-UP Chelita Jackson MD [address] [facility] [address] [facility] [address] Michaela Sousa APRN [address] [address] Medication List New Prescriptions lidocaine [...] Medications These medications were sent to [facility] [place] [address] [facility] 2 - [phone] [facility] [phone] [facility] [place] [address] lidocaine 5 % oxyCODONE 5 MG immediate release tablet ED Disposition ED Disposition Discharge Condition Stable Comment -- Namita Hernandez APRN 09/08/25 1537 Cosigned by Gorge Blanco MD at 09/09/2025 6:02 AM EST Associated attestation - Gorge lBanco MD - 09/09/2025 6:02 AM EST SUPERVISED: Based on the medical record the care appears appropriate. Gorge Blanco MD 09/09/2025 06:02 EST documented in this encounter Plan of Treatment Upcoming Encounters Date Type Department Care Team (Late st Contact Info) Description 10/31/2025 3:15 PM EST Office Visit [facility] GASTROENTEROLOGY [address] [address] Aminata Nassar MD [address] [address] documented as of this encounter Procedures Procedure [...] MD 09/08/2025 12:25 PM EST Workstation ID: [id number] Narrative 09/08/2025 12:[address] ABDOMEN [...] MD 09/08/2025 12:25 PM EST Workstation ID: [id number] Namita Hernandez INDUSTRIAL MACHINE ASSEMBLER IMG CT ORDERABLES Final R esult * (ABNORMAL) CBC Auto Differential (09/08/2025 11:01 AM EST) WBC 8.91 3.40 - 10.80 10*3/mm3 09/08/2025 11:28 [facility] RBC 4.43 3.77 - 5.28 10*6/mm3 09/08/2025 11:28 AM [facility] Hemoglobin 12.3 12.0 - 15.9 g/dL 09/08/2025 11:28 AM [facility] Hematocrit 37.4 34.0 - 46.6 % 09/08/2025 11:28 AM [facility] MCV 84.4 79.0 - 97.0 fL 09/08/2025 11:28 AM [facility] MCH 27.8 26.6 - 33.0 pg 09/08/2025 11:28 AM [facility] MCHC 32.9 31.5 - 35.7 g/dL 09/08/2025 11:28 AM [facility] RDW 13.2 12.3 - 15.4 % 09/08/2025 11:28 AM [facility] RDW-SD 40.8 37.0 - 54.0 fl 09/08/2025 11:28 AM [facility] MPV 8.8 6.0 - 12.0 fL 09/08/2025 11:28 AM [facility] Platelets 367 140 - 450 10*3/mm3 09/08/2025 11:28 AM [facility] Neutrophil % 81.1(H) 42.7 - 76.0 % 09/08/2025 11:28 AM [facility] Lymphocyte % 10.0(L) 19.6 - 45.3 % 09/08/2025 11:28 AM [facility] Monocyte % 5.3 5.0 - 12.0 % 09/08/2025 11:28 AM [facility] Eosinophil % 2.5 0.3 - 6.2 % 09/08/2025 11:28 AM [facility] Basophil % 0.7 0.0 - 1.5 % 09/08/2025 11:28 AM [facility] Immature Grans % 0.4 0.0 - 0.5 % 09/08/2025 11:28 AM [facility] Neutrophils, Absolute 7.23(H) 1.70 - 7.00 10*3/mm3 09/08/2025 11:28 AM [facility] Lymphocytes, Absolute 0.89 0.70 - 3.10 10*3/mm3 09/08/2025 11:28 AM [facility] Monocytes, Absolute 0.47 0.10 - 0.90 10*3/mm3 09/08/2025 11:28 AM [facility] Eosinophils, Absolute 0.22 0.00 - 0.40 10*3/mm3 09/08/2025 11:28 AM [facility] Basophils, Absolute 0.06 0.00 - 0.20 10*3/mm3 09/08/2025 11:28 AM [facility] Immature Grans, Absolute 0.04 0.00 - 0.05 10*3/mm3 09/08/2025 11:28 AM [facility] nRBC 0.0 0.0 - 0.2 /100 WBC 09/08/2025 11:28 AM [facility] Blood Venipuncture / Unknown 09/08/2025 11:01 AM EST 09/08/2025 11:19 AM EST Namita Hernandez INDUSTRIAL MACHINE ASSEMBLER LAB BLOOD ORDERABLES Kate faulkner Result [facility]
[address] [place] [address], * Urinalysis With Microscopic If Indicated (No Culture) - Urine, Clean Catch (09/08/2025 11:01 AM EST) Color, UA Yellow Yellow, Straw 09/08/2025 11:31 AM [facility] Appearance, UA Clear Clear 09/08/2025 11:31 AM [facility] pH, UA 6.0 5.0 - 8.0 09/08/2025 11:31 AM [facility] Specific [place], UA 1.017 1.005 - 1.030 09/08/2025 11:31 AM [facility] Glucose, UA Negative Negative 09/08/2025 11:31 AM [facility] Ketones, UA Negative Negative 09/08/2025 11:31 AM [facility] Bilirubin, UA Negative Negative 09/08/2025 11:31 AM [facility] Blood, UA Negative Negative 09/08/2025 11:31 AM [facility] Protein, UA Negative Negative 09/08/2025 11:31 AM [facility] Leuk Esterase, UA Negative Negative 09/08/2025 11:31 AM [facility] Nitrite, UA Negative Negative 09/08/2025 11:31 AM [facility] Urobilinogen, UA 0.2 E.U./dL 0.2 - 1.0 E.U./dL 09/08/2025 11:31 AM [facility] Urine Urine specimen obtained by clean catch procedure / Unknown Collection / Unknown 09/08/2025 11:01 AM EST 09/08/2025 11:27 AM EST Narrative [facility] - 09/08/2025 11:31 AM EST Urine microscopic not indicated. Namita Hernandez INDUSTRIAL MACHINE ASSEMBLER URINE ORDERABLES Final Re sult Performing Organization Address City/[facility]/ZIP Co de Phone Number [facility]
[address] [place] [address], * (ABNORMAL) Lipase (09/08/2025 11:01 AM EST) Lipase 12(L) 13 - 60 U/L 09/08/2025 11:54 AM EST [facility] Blood Venipuncture / Unknown 09/08/2025 11:01 AM EST 09/08/2025 11:29 AM EST Namita Hernandez INDUSTRIAL MACHINE ASSEMBLER LAB BLOOD ORDERABLES Kate l Result Performing Organization Address [facility]/ZIP Co de Phone Number [facility]
[address] [place] [address], * Comprehensive Metabolic Panel (09/08/2025 11:01 AM EST) Glucose 96 65 - 99 mg/dL 09/08/2025 11:54 AM EST [facility] BUN 6.9 6.0 - 20.0 mg/dL 09/08/2025 11:54 AM EST [facility] Creatinine 0.62 0.57 - 1.00 mg/dL 09/08/2025 11:54 AM EST [facility] Sodium 140 136 - 145 mmol/L 09/08/2025 11:54 AM EST [facility] Potassium 3.6 3.5 - 5.2 mmol/L 09/08/2025 11:54 AM EST [facility] Chloride 107 98 - 107 mmol/L 09/08/2025 11:54 AM EST [facility] CO2 24.2 22.0 - 29.0 mmol/L 09/08/2025 11:54 AM [facility] Calcium 8.9 8.6 - 10.5 mg/dL 09/08/2025 11:54 AM [facility] Total Protein 7.1 6.0 - 8.5 g/dL 09/08/2025 11:54 AM [facility] Albumin 4.1 3.5 - 5.2 g/dL 09/08/2025 11:54 AM [facility] ALT (SGPT) 15 1 - 33 U/L 09/08/2025 11:54 AM [facility] AST (SGOT) 20 1 - 32 U/L 09/08/2025 11:54 AM [facility] Alkaline Phosphatase 99 39 - 117 U/L 09/08/2025 11:54 AM [facility] Total Bilirubin 0.3 0.0 - 1.2 mg/dL 09/08/2025 11:54 AM [facility] Globulin 3.0 gm/dL 09/08/2025 11:54 AM [facility] Comment:Calculated Result A/G Ratio 1.4 g/dL 09/08/2025 11:54 AM [facility] BUN/Creatinine Ratio 11.1 7.0 - 25.0 09/08/2025 11:54 AM [facility] Anion Gap 8.8 5.0 - 15.0 mmol/L 09/08/2025 11:54 AM [facility] eGFR 120.8 >60.0 mL/min/1.7 3 09/08/2025 11:54 AM [facility] Blood Venipuncture / Unknown 09/08/2025 11:01 AM EST 09/08/2025 11:29 AM [facility] LABORATORY - 09/08/2025 11:54 AM EST [...] race as a factor us Namita Hernandez INDUSTRIAL MACHINE ASSEMBLER LAB BLOOD ORDERABLES Kate faulkner Result [facility]
[address] [place] [address], documented in this encounter Visit Diagnoses Diagnosis [...] Indicated Resolved Time COVID (History) Comment:Per regional emergency medicine physician for [email or web address] 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 The last day before reporting a new confirmed COVID-19 would be 12/08/20. -Alida Banda RN 09/09/2020 12/25/2020 documented as of this encounter Care Teams Signal Circuit Designer Relationship Specialty Start Date End Date Michaela Sousa APRN [address] [place] [address] FELIPE MOLINA [address] PCP - General Internal Medicine 09/04/24 documented as of this encounter
--- NOTE | 2025-09-25 16:47 | ECG_ITS ---
APPROVED REPORT Exam: Resting ECG HR:142 bpm ECG Measurements Heart Rate 142 AXES ID 143 P -11 QRSd 85 QRS -30 QT 328 T 94 QTc 410 Conclusion SINUS TACHYCARDIA, POSSIBLE ATRIAL FLUTTER BORDERLINE LEFT AXIS DEVIATION [QRS AXIS < -20] LEFT VENTRICULAR HYPERTROPHY AND ST-T CHANGE [VOLTAGE CRITERIA PLUS ST/T ABNORMALITY] ABNORMAL ECG UNCONFIRMED REPORT Electronically signed by : Nolan Hook, 09/25/2025 23:26:04
--- NOTE | 2025-09-25 16:50 | HMH.EDGENADL ---
Discharge Plan Disposition Patient Disposition: Left Against Medical Advice Prescriptions Prescriptions: New potassium chloride 20 mEq packet 20 meq PO QID 5 Days Qty: 30 0RF magnesium oxide 500 mg capsule 500 mg PO TID 5 Days Qty: 15 0RF No Action ipratropium-albuterol 0.5 mg-3 mg(2.5 mg base)/3 mL solution for nebulization inhalation Q6H tizanidine 4 mg tablet 4 - 6 mg PO BID amoxicillin 875 mg tablet 875 mg PO BID Qty: 20 0RF gabapentin 300 mg capsule 300 mg PO Patient Comments: TAKE ONE CAPSULE BY MOUTH EVERY 8 HOURS MAY CAUSE DROWSINESS cyanocobalamin (vitamin B-12) 1,000 mcg/mL solution 1,000 mcg SQ Patient Comments: INJECT 1 ML DIRECTED EVERY 28 DAYS pantoprazole 40 mg tablet,delayed release (DR/EC) 40 mg PO ONCE Patient Comments: TAKE ONE TABLET BY MOUTH TWICE DAILY famotidine [Pepcid] 20 mg Tablet 20 mg PO DAILY ondansetron 4 mg tablet,disintegrating 4 mg PO Q8H 3 Days Qty: 9 0RF Referrals Follow up/Referrals: Michaela Sousa APRN [Nurse Practitioner, Medical] - See instructions Clinical Impressions Clinical Impression: Acute hypokalemia, Heart palpitations Print Language Print Language: [place] Discharge ED Provider: Pavel Hook General Adult HPI <Jenise De Leon - Last Filed: 09/25/25 19:03> General Chief complaint: Chest Pain Stated complaint: chest pain Time Seen by Provider: 09/25/25 17:19 History of Present Illness HPI narrative: 35-year-old female presents the emergency department with complaints of ongoing chest pain shortness of breath. Patient was recently seen in this emergency department 2 days ago with similar complaints. Patient's workup was grossly unremarkable except for potassium that was 2.3 at that time. Related Data Home Medications ?Medication ?Instructions ?Recorded ?Confirmed famotidine 20 mg tablet (Pepcid) 20 mg PO DAILY 05/24/24 08/12/25 cyanocobalamin (vitamin B-12) 1,000 mcg SQ 02/07/25 08/12/25 1,000 mcg/mL injection solution gabapentin 300 mg capsule 300 mg PO 02/07/25 08/12/25 pantoprazole 40 mg tablet,delayed 40 mg PO ONCE 02/07/25 08/12/25 release ipratropium 0.5 mg-albuterol 3 mg ml inhalation Q6H 08/12/25 08/12/25 (2.5 mg base)/3 mL nebulization soln tizanidine 4 mg tablet 4 - 6 mg PO BID 08/12/25 08/12/25 Previous Rx's ?Medication ?Instructions ?Recorded ondansetron 4 mg disintegrating 4 mg PO Q8H 3 days #9 tabs 08/05/25 tablet amoxicillin 875 mg tablet 875 mg PO BID #20 tabs 08/12/25 magnesium oxide 500 mg capsule 500 mg PO TID 5 days #15 caps 09/25/25 potassium chloride 20 mEq oral 20 meq PO QID 5 days #30 ea 09/25/25 packet Allergies Allergy/AdvReac Type Severity Reaction Status Date / Time celecoxib (From Celebrex) Allergy Severe Anaphylaxis Verified 08/12/25 11:02 latex (LATEX) Allergy Severe Anaphylaxis Verified 08/12/25 11:02 coconut Allergy Unknown Anaphylaxis Verified 08/12/25 11:02 Pertussis Vaccines Allergy Unknown Unknown Verified 08/12/25 11:02 (PERTUSSIS VACCINES) allergy reaction pineapple (PINEAPPLE) Allergy Unknown Unknown Verified 08/12/25 11:02 allergy reaction Sulfa (Sulfonamide Allergy Unknown Unknown Verified 08/12/25 11:02 Antibiotics) (SULFA allergy (SULFONAMIDE ANTIBIOTICS)) reaction dicyclomine (From Bentyl) AdvReac Blurry Verified 08/12/25 11:02 Vision ketamine AdvReac Rash Verified 08/12/25 11:02 PFS <Jenise De Leon - Last Filed: 09/25/25 19:03> [facility] Disclaimer: The information contained in this section may have been updated after the patient was seen, as this information can be updated by other users. Medical History URI (upper respiratory infection) Sinusitis Viral upper respiratory infection Liver disease Depression Anxiety History of anemia History of gastroesophageal reflux (GERD) Kidney stone Migraine Surgical History History of tonsillectomy History of cholecystectomy History of section Family History Grandfather Cancer Colon Cancer Mother Cancer Thyroid Cancer Sister Cancer Cervical Cancer Grandmother Cancer Maternal Grandmother-Cervical, Breast and Lung Cancer Social History Smoking Status: Never smoker second hand exposure: No alcohol intake: never current occupational status: employed Travel in the last 8 weeks?: None household members: other housing: house 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 current occupational exposures/hazards: No caffeine: Yes Have you lived/traveled outside US in past 30 days?: No Contact w/someone who lives/traveled outside US past 30 days?: No Exposure to someone with infectious disease in past 14 days?: No Do you have a fever (greater than 100.4 F or 38 C)?: No Have you tested positive for COVID-19?: No Exposed to someone with COVID-19 in past 14 days?: No Do you have a sore throat?: No Do you have a cough?: No Do you have any weakness?: No Do you have any diarrhea?: No Are you experiencing any unusual bleeding?: No Do you have any muscle aches/pain?: No Do you have any abdominal pain?: No Are you experiencing loss of taste or smell?: No Other Medical History Have you received the Flu Vaccine for this season: Yes Have you received the Pneumonia Vaccine: No <Jenise De Leon - Last Filed: 09/25/25 19:03> ROS Obtained: Yes other Cardiovascular Cardiovascular: Reports chest pain Respiratory Respiratory: Reports shortness of breath Physical Exam <Jenise De Leon - Last Filed: 09/25/25 19:03> Narrative Physical exam: General: Awake, aware HEENT: Normocephalic, no evidence of trauma CV: RRR, no murmurs, rubs, or gallops Pulm: CTA bilaterally with no rhonchi, rales, wheezes ABD: Nontender, no swelling, guarding, or rebound tenderness Psych: Patient is anxious but cooperative on exam General General appearance: alert and anxious Respiratory Respiratory exam: Present normal lung sounds bilaterally Cardiovascular Cardiovascular exam: Present tachycardia Neurological Exam Neurological exam: Present alert Medical Decision Making <Jenise De Leon - Last Filed: 09/25/25 19:03> Medical Records Screening: Per USPSTF and CDC recommendations, given the prevalence of disease in our region, it is our hospital?s policy to screen for HIV and viral Hepatitis for all patients aged 18 and over and those with ongoing risk factors. Federico Inquiry Pt receiving controlled substance: No Vital Signs: 09/25/25 17:04 09/25/25 17:27 09/25/25 17:30 Temperature 98.2 F Temperature Source Oral Pulse Rate 112 H Pulse Rate [Right Radial] 112 H Respiratory Rate 24 16 Blood Pressure Blood Pressure [Left Arm] 111/88 Blood Pressure Mean [Left Arm] 95 Blood Pressure Source [Left Arm] Automatic Cuff Blood Pressure Position [Left Arm] Sitting 02 Sat by Pulse Oximetry 94 L Oxygen Delivery Method Room Air 09/25/25 19:23 Temperature Temperature Source Pulse Rate 101 H Pulse Rate [Right Radial] Respiratory Rate 16 Blood Pressure 123/86 Blood Pressure [Left Arm] Blood Pressure Mean [Left Arm] Blood Pressure Source [Left Arm] Blood Pressure Position [Left Arm] 02 Sat by Pulse Oximetry 97 Oxygen Delivery Method Room Air Lab Data Lab Results 09/25/25 17:22: WBC 17.4 H D, RBC 4.13 L, Hgb 11.5 L, Hct 36.1 L, MCV 87.4, MCH 27.8, MCHC 31.9, RDW 13.9, Plt Count 310, MPV 9.0, Neut % (Auto) 76.6, Lymph % (Auto) 14.3, [place] % (Auto) 7.3, Eos % (Auto) 0.6, Baso % (Auto) 0.3, Neut # (Auto) 13.3 H, Lymph # (Auto) 2.5, [place] # (Auto) 1.3 H, Eos # (Auto) 0.1, Baso # (Auto) 0.1, Sodium 139, Potassium 2.5 L*, Chloride 104, Carbon Dioxide 24, Anion Gap 13.5, BUN 18 H D, Creatinine 0.70, Estimated Creat Clear 127, Estimated GFR 96, Est GFR ( Amer) 117, Glucose 107 H, Calcium 9.1, Magnesium 1.5 L, Total Bilirubin 0.4, AST 25, ALT 22, Alkaline Phosphatase 112, Troponin I < 0.01, NT-Pro-B Natriuret Pep 38.3, Total Protein 7.8, Albumin 4.8, Globulin 3.0, Albumin/Globulin Ratio 1.6, TSH 0.99, Free T4 0.99 09/25/25 17:22 09/25/25 17:22 Orders (Tests/Meds): ED MEDICATIONS Generic Name Dose Route Start Last Admin Trade Name Freq PRN Reason Stop Dose Admin Potassium Chloride/Water 100 mls @ 100 mls/hr 09/25/25 18:23 Potassium Chloride 10meq/100ml Ivpb IV 09/25/25 20:22 Q1H JOSSE Sodium Chloride 1,000 mls @ 999 mls/hr 09/25/25 19:25 Sod Chlor 0.9% 1000ml Bag IV 09/25/25 20:25 .Q1H1M ONE Discontinued Medications Generic Name Dose Route Start Last Admin Trade Name Freq PRN Reason Stop Dose Admin Acetaminophen 1,000 mg 09/25/25 19:03 09/25/25 19:27 Acetaminophen 500mg Tab PO 09/25/25 19:04 1,000 mg ONCE ONE Administration Magnesium Sulfate 2 gm in 50 mls @ 50 mls/hr 09/25/25 19:03 09/25/25 19:26 Magnesium Sulfate 2gm/50ml Premix IV 09/25/25 20:02 50 mls/hr ONCE ONE Administration Magnesium Oxide 400 mg 09/25/25 18:23 09/25/25 18:47 Magnesium Oxide 400mg Tablet PO 09/25/25 18:24 400 mg ONCE ONE Administration Potassium Chloride 30 meq 09/25/25 18:22 09/25/25 18:49 Potassium Chloride 10meq Tablet.Er PO 09/25/25 18:23 Not Given ONCE ONE Potassium Chloride 40 meq 09/25/25 18:48 09/25/25 19:09 Potassium Chloride 20meq Tab PO 09/25/25 18:49 40 meq ONCE ONE Administration ORDERS Category Date Time Status XR chest portable Stat Exams 09/25/25 17:42 Completed Complete Blood Count Auto Diff Stat Lab 09/25/25 17:22 Completed Comprehensive Metabolic Panel Stat Lab 09/25/25 17:22 Completed Free T4 (Free Thyroxine) Stat Lab 09/25/25 17:22 Completed Lactic Acid Stat Lab 09/25/25 18:22 Ordered Magnesium Stat Lab 09/25/25 17:22 Completed NT Pro Brain Natriuretic Pep. Stat Lab 09/25/25 17:22 Completed TSH [Thyroid Stimulating Hormone] Stat Lab 09/25/25 17:22 Completed Troponin I Q3H Lab 09/25/25 20:45 Ordered Troponin I Q3H Lab 09/25/25 23:45 Ordered Troponin I Stat Lab 09/25/25 17:22 Completed Blood Culture Stat Micro 09/25/25 18:22 Ordered Medical Decision Narrative: Initial impression of presenting illness: 35-year-old female presents emergency department with complaints of ongoing chest pain and shortness of breath. Patient was recently seen in this emergency department 2 days ago with similar complaints. At that time she had full cardiac workup including CTA of chest as well as bedside ultrasound of her heart. All imaging studies were unremarkable. Patient did have a potassium of 2.3 at that time however rest of laboratory studies were nonactionable. Patient states she still feels like she is having chest pain and shortness of breath. Differential diagnosis includes but is not limited to: Heart failure, ACS, electrolyte abnormality, pneumonia, anxiety, PE, thyroid disease Patient arrives hemodynamically stable, afebrile, without respiratory distress with vital signs interpreted by myself. Initial physical exam unremarkable except for patient is anxious during exam but remains cooperative. Initial diagnostic plan: Heart failure workup including TSH and T4 Results from initial plan were reviewed and interpreted by myself, pertinent positives include: White blood cell count 17.4. Given patient's tachypnea, tachycardia, and elevated white blood cell count she is currently fighting for sepsis. Will add on blood cultures and lactic acid. Patient's potassium was 2.5, magnesium 1.5, rest of laboratory studies were nonactionable at this time. TSH is still pending, lactic acid is pending as well. Chest x-ray is also pending. Interventions in the ED: Given patient's hypokalemia and hypomagnesemia I have ordered her 400 mg of oral magnesium as well as 40 mEq of oral potassium and 2 runs of IV potassium. Patient is upset that I am not giving her any medications to treat her symptoms. I have explained to patient that I am limited based off her current symptoms, laboratory studies as well as past medical history on what I can give her. I explained to her that she currently has low potassium so giving her albuterol would further make her potassium low and would likely increase her tachypnea and tachycardia. I then informed her that I cannot give her aspirin for her chest pain or NSAIDs as she has a history of previous GI bleeds. I did offer her hydroxyzine for treatment of her anxiety however this made patient upset stating that I was not taking her symptoms seriously. I explained to patient that I am doing everything I can to try and get her as comfortable as I can during her ER stay. I did inform her that I would not be giving her narcotic pain medication as it was an inappropriate use of that medication for her current symptoms. Patient states that she was given narcotics at her last ER visit. I again explained that I would not be doing that. I explained to patient that I am not giving her IV magnesium today because her magnesium is only slightly low and we can give 4 pills for that as we will be using her IV for her IV runs of potassium as her hypokalemia is significant. Patient remains upset. I then informed patient that it is likely that she will be admitted for her hypokalemia. Patient states she refuses to be admitted. She states that she wants to go home and take oral potassium. I have reviewed this case with ED attending Dr. Hook. I have explained my rationale for why I am not giving patient narcotic pain medications at our [facility] at this time. He is in agreement with my treatment plan. Patient has now stated that she does not want to be back in her room and would like another provider. ED attending has gone to patient's room to speak with her about her concerns. ED attending Dr. Hook assuming patient care. <Pavel Hook MD - Last Filed: 09/25/25 20:08> Vital Signs: 09/25/25 17:04 09/25/25 17:27 09/25/25 17:30 Temperature 98.2 F Temperature Source Oral Pulse Rate 112 H Pulse Rate [Right Radial] 112 H Respiratory Rate 24 16 Blood Pressure Blood Pressure [Left Arm] 111/88 Blood Pressure Mean [Left Arm] 95 Blood Pressure Source [Left Arm] Automatic Cuff Blood Pressure Position [Left Arm] Sitting 02 Sat by Pulse Oximetry 94 L Oxygen Delivery Method Room Air 09/25/25 19:23 Temperature Temperature Source Pulse Rate 101 H Pulse Rate [Right Radial] Respiratory Rate 16 Blood Pressure 123/86 Blood Pressure [Left Arm] Blood Pressure Mean [Left Arm] Blood Pressure Source [Left Arm] Blood Pressure Position [Left Arm] 02 Sat by Pulse Oximetry 97 Oxygen Delivery Method Room Air Lab Data Lab results reviewed: Yes I reviewed the patient's lab results. Lab Results 09/25/25 17:22: WBC 17.4 H D, RBC 4.13 L, Hgb 11.5 L, Hct 36.1 L, MCV 87.4, MCH 27.8, MCHC 31.9, RDW 13.9, Plt Count 310, MPV 9.0, Neut % (Auto) 76.6, Lymph % (Auto) 14.3, [place] % (Auto) 7.3, Eos % (Auto) 0.6, Baso % (Auto) 0.3, Neut # (Auto) 13.3 H, Lymph # (Auto) 2.5, [place] # (Auto) 1.3 H, Eos # (Auto) 0.1, Baso # (Auto) 0.1, Sodium 139, Potassium 2.5 L*, Chloride 104, Carbon Dioxide 24, Anion Gap 13.5, BUN 18 H D, Creatinine 0.70, Estimated Creat Clear 127, Estimated GFR 96, Est GFR ( Amer) 117, Glucose 107 H, Calcium 9.1, Magnesium 1.5 L, Total Bilirubin 0.4, AST 25, ALT 22, Alkaline Phosphatase 112, Troponin I < 0.01, NT-Pro-B Natriuret Pep 38.3, Total Protein 7.8, Albumin 4.8, Globulin 3.0, Albumin/Globulin Ratio 1.6, TSH 0.99, Free T4 0.99 Orders (Tests/Meds): ED MEDICATIONS Generic Name Dose Route Start Last Admin Trade Name Freq PRN Reason Stop Dose Admin Potassium Chloride/Water 100 mls @ 100 mls/hr 09/25/25 18:23 Potassium Chloride 10meq/100ml Ivpb IV 09/25/25 20:22 Q1H JOSSE Sodium Chloride 1,000 mls @ 999 mls/hr 09/25/25 19:25 Sod Chlor 0.9% 1000ml Bag IV 09/25/25 20:25 .Q1H1M ONE Discontinued Medications Generic Name Dose Route Start Last Admin Trade Name Freq PRN Reason Stop Dose Admin Acetaminophen 1,000 mg 09/25/25 19:03 09/25/25 19:27 Acetaminophen 500mg Tab PO 09/25/25 19:04 1,000 mg ONCE ONE Administration Magnesium Sulfate 2 gm in 50 mls @ 50 mls/hr 09/25/25 19:03 09/25/25 19:26 Magnesium Sulfate 2gm/50ml Premix IV 09/25/25 20:02 50 mls/hr ONCE ONE Administration Magnesium Oxide 400 mg 09/25/25 18:23 09/25/25 18:47 Magnesium Oxide 400mg Tablet PO 09/25/25 18:24 400 mg ONCE ONE Administration Potassium Chloride 30 meq 09/25/25 18:22 09/25/25 18:49 Potassium Chloride 10meq Tablet.Er PO 09/25/25 18:23 Not Given ONCE ONE Potassium Chloride 40 meq 09/25/25 18:48 09/25/25 19:09 Potassium Chloride 20meq Tab PO 09/25/25 18:49 40 meq ONCE ONE Administration ORDERS Category Date Time Status XR chest portable Stat Exams 09/25/25 17:42 Completed Complete Blood Count Auto Diff Stat Lab 09/25/25 17:22 Completed Comprehensive Metabolic Panel Stat Lab 09/25/25 17:22 Completed Free T4 (Free Thyroxine) Stat Lab 09/25/25 17:22 Completed Lactic Acid Stat Lab 09/25/25 18:22 Ordered Magnesium Stat Lab 09/25/25 17:22 Completed NT Pro Brain Natriuretic Pep. Stat Lab 09/25/25 17:22 Completed TSH [Thyroid Stimulating Hormone] Stat Lab 09/25/25 17:22 Completed Troponin I Q3H Lab 09/25/25 20:45 Ordered Troponin I Q3H Lab 09/25/25 23:45 Ordered Troponin I Stat Lab 09/25/25 17:22 Completed Blood Culture Stat Micro 09/25/25 18:22 Ordered Medical Decision Narrative: Initial impression of presenting illness: 35-year-old female presents emergency department with complaints of ongoing chest pain and shortness of breath. Patient was recently seen in this emergency department 2 days ago with similar complaints. At that time she had full cardiac workup including CTA of chest as well as bedside ultrasound of her heart. All imaging studies were unremarkable. Patient did have a potassium of 2.3 at that time however rest of laboratory studies were nonactionable. Patient states she still feels like she is having chest pain and shortness of breath. Differential diagnosis includes but is not limited to: Heart failure, ACS, electrolyte abnormality, pneumonia, anxiety, PE, thyroid disease Patient arrives hemodynamically stable, afebrile, without respiratory distress with vital signs interpreted by myself. Initial physical exam unremarkable except for patient is anxious during exam but remains cooperative. Initial diagnostic plan: Heart failure workup including TSH and T4 Results from initial plan were reviewed and interpreted by myself, pertinent positives include: White blood cell count 17.4. Given patient's tachypnea, tachycardia, and elevated white blood cell count she is currently fighting for sepsis. Will add on blood cultures and lactic acid. Patient's potassium was 2.5, magnesium 1.5, rest of laboratory studies were nonactionable at this time. TSH is still pending, lactic acid is pending as well. Chest x-ray is also pending. Interventions in the ED: Given patient's hypokalemia and hypomagnesemia I have ordered her 400 mg of oral magnesium as well as 40 mEq of oral potassium and 2 runs of IV potassium. Patient is upset that I am not giving her any medications to treat her symptoms. I have explained to patient that I am limited based off her current symptoms, laboratory studies as well as past medical history on what I can give her. I explained to her that she currently has low potassium so giving her albuterol would further make her potassium low and would likely increase her tachypnea and tachycardia. I then informed her that I cannot give her aspirin for her chest pain or NSAIDs as she has a history of previous GI bleeds. I did offer her hydroxyzine for treatment of her anxiety however this made patient upset stating that I was not taking her symptoms seriously. I explained to patient that I am doing everything I can to try and get her as comfortable as I can during her ER stay. I did inform her that I would not be giving her narcotic pain medication as it was an inappropriate use of that medication for her current symptoms. Patient states that she was given narcotics at her last ER visit. I again explained that I would not be doing that. I explained to patient that I am not giving her IV magnesium today because her magnesium is only slightly low and we can give 4 pills for that as we will be using her IV for her IV runs of potassium as her hypokalemia is significant. Patient remains upset. I then informed patient that it is likely that she will be admitted for her hypokalemia. Patient states she refuses to be admitted. She states that she wants to go home and take oral potassium. I have reviewed this case with ED attending Dr. Hook. I have explained my rationale for why I am not giving patient narcotic pain medications at our [facility] at this time. He is in agreement with my treatment plan. Patient has now stated that she does not want to be back in her room and would like another provider. ED attending has gone to patient's room to speak with her about her concerns. ED attending Dr. Hook assuming patient care. This is Dr. Hook at 8:07 PM patient initially told me that she was going to stay for IV magnesium and potassium replacement and then she wanted to leave and try to the oral supplementation. However she eventually told us at this time that she wanted to leave AMA. Therefore magnesium and potassium supplements have been sent to her pharmacy. She understands that she is at risk for arrhythmia which could result in morbidity and mortality. She had mental capacity been making these decisions and was allowed to leave AMA. The majority of her symptoms likely from our perspective were secondary to this. No other emergent medical condition identified does not consistent with any other cardiopulmonary emergency at the moment. Critical Care <Jenise De Leon - Last Filed: 09/25/25 19:03> Critical Care Time Critical Care Time: No <Pavel Hook MD - Last Filed: 09/25/25 20:08> Critical Care Time Critical Care Time: Yes Attestation: On 09/25/25, the high probability of a clinically significant, sudden or life threatening deterioration of the following system(s) required my full and direct attention, intervention and personal management. The time I documented below is in addition to time spent performing reported procedures but includes the following listed in this critical care notation. Total Time Total Critical Care Time: 35
--- OUTSIDE RECORDS SUMMARY | 2025-09-25 16:57 | XMS_ITS | Encounter Summary ---
Author Organization [facility] Address [address] [place] [address] Care Team Providers Care Hospital Unit Clerk Name Role Phone Michaela Sousa APRN Primary Care Provider + [phone] Encounter Details Date Type Department Care Team (Latest Contact Info) Description 08/13/2025 Travel Social History Tobacco Use Types Packs/Day Years Used Date Smoking Tobacco: Never Passive Smoke Exposure: Never Smokeless Tobacco: Never Alcohol Use Standard Drinks/Week Comments No 0 (1 standard drink = 0.6 oz pur e alcohol) [facility] Utilities Answer Date Recorded In the past 12 months has [employer], gas, oil, or water company threatened to [...] Retired Total Score 0 05/07/2021 [facility] - Occupational Stress [...] things needed for daily living? No 12/10/2024 Patterson Depression Scale Answer Date Recorded Patterson Depression Scale Total 2 12/22/2024 The thought [...] GED or equivalent No 08/13/2025 Preferred Language Andorran 08/13/2025 PHQ-2 Answer Date Recorded Patient Health [...] Visit [facility] [address] [id number] Aminata Nassar MD [address] [address] documented as of this encounter Visit Diagnoses Not on filedocumented in this encounter Additional Health Concerns Infection Onset Date Last Indicated Resolved Time COVID (History) Comment:Per regional cytogeneticist for [facility], 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 The last day before reporting a new confirmed COVID-19 would be 12/08/20. -Alida Banda RN 09/09/2020 12/25/2020 documented as of this encounter Care Teams Hospital Unit Clerk Relationship Specialty Start Date End Date Michaela Sousa APRN [address] [place] [address] [facility] [place] [address] PCP - General Internal Medicine 09/04/24 documented as of this encounter
--- OUTSIDE RECORDS SUMMARY | 2025-09-25 16:57 | XMS_ITS | Encounter Summary ---
Author Organization [facility] Address [address] [place] [address] Care Team Providers Care Maint Mechanic Name Role Phone Lars Michaela KING Primary Care Provider + [phone] Reason for Visit * Reason Comments Med Refill Encounter Details Date Type Department Care Team (Late st Contact Info) Description 07/27/2025 Refill [facility] GASTROENTEROLOGY [address] [address] Aminata Nassar MD [address] [place] [address] Hyperemesis gravidarum Social History Tobacco Use Types Packs/Day Years Used Date Smoking Tobacco: Never Passive Smoke Exposure: Never Smokeless Tobacco: Never Alcohol Use Standard Drinks/Week Comments No 0 (1 standard drink = 0.6 oz pur e alcohol) [facility] Utilities Answer Date Recorded In the past 12 months has [employer], gas, oil, or water [employer] threatened to shut off services in your [...] Date Recorded Retired Total Score 0 05/07/2021 [facility] Occupat ional [facility] - Occupational Stress Questionnaire Answer Date [...] things needed for daily living? No 12/10/2024 Lu[place] Depression Scale Answer Date Recorded [place] Depression Scale Total 2 12/22/2024 The thought [...] Visit [facility] GASTR[facility] [address] [place] [address] Aminata Nassar MD [address] [facility] [address] [place] [address] documented as of this encounter Visit Diagnoses Diagnosis Hyperemesis gravidarum Mild hyperemesis gravidarum, unspecified as to episode of care documented in this encounter Additional Health Concerns Infection Onset Date Last Indicated Resolved Time COVID (History) Comment:Per regional oil transport driver for [employer] [facility], 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 The last day before reporting a new confirmed COVID-19 would be 12/08/20. -Alida Banda RN 09/09/2020 12/25/2020 documented as of this encounter Care Teams Maint Mechanic Relationship Specialty Start Date End Date Michaela Sousa APRN [address] [place] [id number] PCP - General Internal Medicine 09/04/24 documented as of this encounter
--- OUTSIDE RECORDS SUMMARY | 2025-09-25 16:57 | XMS_ITS | Encounter Summary ---
Author Organization [facility] Address [address] [place] [address] Care Team Providers Care Creche Attendant Name Role Phone Michaela Sousa APRN Primary Care Provider + [phone] Encounter Details Date Type Department Care Team (Latest Contact Info) Description 08/20/2025 Travel Social History Tobacco Use Types Packs/Day Years Used Date Smoking Tobacco: Never Passive Smoke Exposure: Never Smokeless Tobacco: Never Alcohol Use Standard Drinks/Week Comments No 0 (1 standard drink = 0.6 oz pur e alcohol) [facility] Utilities Answer Date Recorded In the past 12 months has [employer], gas, oil, or water company threatened to [...] Date Recorded Retired Total Score 0 05/07/2021 [facility] of Occupat ional Health - Occupational Stress [...] things needed for daily living? No 12/10/2024 [place] Depression Scale Answer Date Recorded [place] Depression Scale Total 2 12/22/2024 The thought [...] GED or equivalent No 08/13/2025 Preferred Language Peruvian 08/13/2025 PHQ-2 Answer Date Recorded Patient Health [...] Visit [facility] GA[facility] [address] [phone] Aminata Nassar MD [address] [address] documented as of this encounter Visit Diagnoses Not on filedocumented in this encounter Additional Health Concerns Infection Onset Date Last Indicated Resolved Time COVID (History) Comment:Per regional provider relations manager for [facility], 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 The last day before reporting a new confirmed COVID-19 would be 12/08/20. -Alida Banda RN 09/09/2020 12/25/2020 documented as of this encounter Care Teams Creche Attendant Relationship Specialty Start Date End Date Michaela Sousa APRN [address] [place] [address] [facility] [address] PCP - General Internal Medicine 09/04/24 documented as of this encounter
--- OUTSIDE RECORDS SUMMARY | 2025-09-25 16:58 | XMS_ITS | Encounter Summary ---
Author Organization [place] [address] Care Team Providers Care Associate Professor Of Forestry Name Role Phone Radha Ordaz LPN Unavailable Unav ailable Encounter Details Date Type Department Care Team (Late st Contact Info) Description 11/02/2018 Lab Requisition [facility] [place] [address] Wendy Emerson MD [address] [place] [phone] Other specified abnormal findings of blood [...] HORMONE -REF LAB (11/02/2018 8:40 AM EST) [facility] ACTH 21 6 - 58 pg/mL 11/04/2018 2:20 PM EST [employer] Comment: INTERPRETIVE INFORMATION: Adrenocorticotropic Hormone Some types of synthetic ACTH are not detected by this assay. Access complete set of age- and/or gender-specific reference intervals for this test in the [facility] Test Directory ([facility]). Performed by [facility], [address] [place] [id number] [email or web address], Robert Restrepo MD, Lab. Director Blood VENOUS BLOOD / Unknown 11/02/2018 8:40 AM EST 11/02/2018 2:17 PM EST us Wendy Emerson MD CHEMISTRY ORDERABLES Fin al Result [facility] [address] [place] [address] documented in this encounter Visit Diagnoses Diagnosis Other specified abnormal findings of blood chemistry documented in this encounter Additional Health Concerns Assessment Noted Time PHQ-9 Depression Total Score: 2 10/07/19 19 4:43 PM EST PHQ-2 Depression Total Score: 2 10/07/19 19 4:43 PM EST documented as of this encounter Care Teams Associate Professor Of Forestry Relationship Specialty Start Date End Date Radha Ordaz LPN Machine Etcher Licensed Practical Nurse 03/15/20 04/02/20 documented as of this encounter
--- OUTSIDE RECORDS SUMMARY | 2025-09-25 16:58 | XMS_ITS | Clinical Summary ---
Author Organization [facility] Address [address] [place] [address] Care Team Providers Care Casino Operations Supervisor Name Role Phone SousaMichaela sheehan Juani KING Primary Care Provider [phone] Allergies Active Allergy Reactions Criticality Noted Date [...] or split. 30 tablet 3 Active B Nsbprec-Haruid-PU (B Complete) tablet Active pantoprazole (ProtoNix) 20 [...] declined 02/25/2023 How often do you attend religion or uatsdin serv ices? Patient declined 02/25/2023 Do you belong to any clubs o r organizations such as religion groups, unions, fraternal or athletic groups, or [...] place to sleep or slept in a residential (including now)? Patient refused 02/25/2023 PHQ-9 Answer [...] drink first t donovan in the morning (EYE-ELECTRIC METER TESTER) to steady your nerves or to get [...] 19+ 3-dose series) 2011 UKY-Pap Smear 2013 HFA-RPPXN-32 Vaccine (3 - Pfizer risk series) 06/04/2021 [...] 5:34 AM EDT 01/03/2018 6:18 PM EDT [facility] Provider LAB BLOOD ORDERABLES Final R esult Performing Organization Address [facility] Co de Phone Number SUNQUEST * HIV 1 & 2 Antibody/Antigen Screen (12/18/2017 5:52 AM EDT) HIV 1 Result NONREACTIVE Screening for HIV 1 and 2 antibodies is NONREACTIVE. No confirmatory testing is required. [employer] 12/18/2017 5:52 AM EDT 12/18/2017 6:28 AM EDT Historical Provider LAB BLOOD ORDERABLES Final R esult Performing Organization Address City/State/[facility] Co de Phone Number SUNQUEST from Last 3 Months or Most Recently Relevant to Health Maintenance Insurance [employer] Care Teams Casino Operations Supervisor Relationship Specialty Start Date End Date Michaela Sousa APRN [address] [place] [address] PCP - General 07/24/21
--- OUTSIDE RECORDS SUMMARY | 2025-09-25 16:58 | XMS_ITS | Encounter Summary ---
Author Organization [facility] Address [address] [place] [address] Care Team Providers Care Hot End Operator Name Role Phone Michaela Sousa APRN Primary Care Provider + [phone] Encounter Details Date Type Department Care Team (Latest Contact Info) Description 09/08/2025 Travel Social History Tobacco Use Types Packs/Day Years Used Date Smoking Tobacco: Never Passive Smoke Exposure: Never Smokeless Tobacco: Never Alcohol Use Standard Drinks/Week Comments No 0 (1 standard drink = 0.6 oz pur e alcohol) [facility] Utilities Answer Date Recorded In the past 12 months has [employer], gas, oil, or water company threatened to [...] Date Recorded Retired Total Score 0 05/07/2021 [facility] [place] of Occupat ional Health - Occupational Stress [...] things needed for daily living? No 12/10/2024 [place] Depression Scale Answer Date Recorded [place] Depression Scale Total 2 12/22/2024 The thought [...] GED or equivalent No 08/13/2025 Preferred Language Comoran 08/13/2025 PHQ-2 Answer Date Recorded Patient Health [...] 10/31/2025 3:15 PM EST Office Visit [facility] GASTROENTEROLOGY [address] [phone] Aminata Nassar MD [address] [address] documented as of this encounter Visit Diagnoses Not on filedocumented in this encounter Additional Health Concerns Infection Onset Date Last Indicated Resolved Time COVID (History) Comment:Per regional ore charger for [facility], 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 The last day before reporting a new confirmed COVID-19 would be 12/08/20. -Alida Banda RN 09/09/2020 12/25/2020 documented as of this encounter Care Teams Hot End Operator Relationship Specialty Start Date End Date Michaela Sousa APRN [address] [place] [address] [place] [address] PCP - General Internal Medicine 09/04/24 documented as of this encounter
--- OUTSIDE RECORDS SUMMARY | 2025-09-25 16:58 | XMS_ITS | Encounter Summary ---
Author Organization [facility] [address] Care Team Providers Care Airplane Captain Name Role Phone Radha Ordaz LPN Unavailable Unav ailable Encounter Details Date Type Department Care Team (Late st Contact Info) Description 11/02/2018 Lab Requisition [facility] [place] [address] Wendy Emerson MD [address] [place] [phone] Other specified abnormal findings of blood [...] 19.47 mcg/dL 9 5:29 PM EST PREFERRED [facility] [place] [facility] Blood VENOUS BLOOD / Unknown 11/02/2018 9:45 AM EST 11/02/2018 4:09 PM EST Narrative PREFERRED [facility] [place] [facility] - 11/02/2018 5:29 PM EST Normal Peak : > 20 ug/dl Wendy Eemrson MD CHEMISTRY ORDERABLES Fin al Result Performing Organization Address [facility] de Phone Number [facility] [address] [place] [address] , [place] [address] * CORTISOL 30 MINUTES (11/02/2018 9:15 AM EST) Cortisol 30 Min 17.48 mcg/dL 9 5:35 PM EST [facility] Blood VENOUS BLOOD / Unknown 11/02/2018 9:15 AM EST 11/02/2018 4:09 PM EST Narrative [facility] [place] [facility] - 11/02/2018 5:35 PM EST Normal Peak : > 20 ug/dl Wendy Emerson MD CHEMISTRY ORDERABLES Fin al Result Performing Organization Address [facility] Phone Number [facility] [facility] [address] [facility] , [place] [address] * CORTISOL BASELINE (11/02/2018 8:40 AM EST) Cortisol Baseline 10.37 mcg/dL 11/02/2018 5:35 PM EST [facility] Blood VENOUS BLOOD / Unknown 11/02/2018 8:40 AM EST 11/02/2018 4:09 PM EST Narrative [facility] - 11/02/2018 5:35 PM EST Ingestion of jose doses of biotin (>5 mg/day) taken within 8 hours of drawing blood sample can interfere with this immunoassay test. Wendy Emerson MD CHEMISTRY ORDERABLES Fin al Result Performing Organization Address [facility] de Phone Number [employer] [facility] [address] [facility] , [place] [address] documented in this encounter Visit Diagnoses Diagnosis Other specified abnormal findings of blood chemistry documented in this encounter Additional Health Concerns Assessment Noted Time PHQ-9 Depression Total Score: 2 10/07/19 19 4:43 PM EST PHQ-2 Depression Total Score: 2 10/07/19 19 4:43 PM EST documented as of this encounter Care Teams Airplane Captain Relationship Specialty Start Date End Date Radha Ordaz LPN Ladies Attendant Licensed Practical Nurse 03/15/20 04/02/20 documented as of this encounter
--- OUTSIDE RECORDS SUMMARY | 2025-09-25 16:58 | XMS_ITS | CCD ---
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
--- OUTSIDE RECORDS SUMMARY | 2025-09-25 16:58 | XMS_ITS | Clinical Summary ---
Author Organization [facility] Address [facility] [address], [place] [address] Phone Care Team Providers Care Business Relationship Manager Name Role Phone Unavailable Primary Care [...] a complete record from that organization. b lgiyjht-O-kjvfb acid (NEPHROCAP) 1 mg Oral Capsule Take [...] (07/05/2020): Added automatically from request for surgery [id number] Pelvic pain 07/05/2020 Overview (07/05/2020): Added automatically from request for surgery [id number] Scoliosis of thoracic spine 03/09/2019 S/P endometrial [...] Story LPN Medical Devices Implanted Type Area Refractory Specialist Device Identifier Shelf Expiration Date Model / Serial / Lot Screw For Bridge Insurance [facility] CHOICE PLUS [facility] CHO[facility] PLUS [facility] PLUS [facility] CHO[facility] PLUS [facility] CHOICE PLUS * Guarantor: Maia Kovacs Account Type Relation to Patient Date of Phone Billing Address [place] Personal Family Self Advance Directives For more information, please contact: [phone] * Full Code (Latest Code Status on [...]
--- OUTSIDE RECORDS SUMMARY | 2025-09-25 16:58 | XMS_ITS | Clinical Summary ---
Author Organization [facility] Address [address], [address] [place] [address] Care Team Providers Care Cloth Checker Name Role Phone Carmen Juan APRN - [...] on file Medical Devices Implanted Type Area Sports Broadcasting Internship Device Identifier Shelf Expiration Date Model / Serial / Lot Jaw Screw Screw/Pl ate/Nail /[place]ban Left: Mandible Description:MRI compatible Insurance [facility] [place] [id number] Advance Directives * Full Code (Latest Code Status on File) Date Activated Date Inactivated Comments 12/10/2018 3:14 AM 12/10/2018 9:58 PM * Full Code Date Activated Date Inactivated Comments 10/08/2018 12:42 AM 10/09/2018 3:48 PM Care Teams Cloth Checker Relationship Specialty Start Date End Date Carmen Juan APRN - NP [facility] [address] [facility] [address] [place] [address] PCP - General 07/22/20
--- OUTSIDE RECORDS SUMMARY | 2025-09-25 16:58 | XMS_ITS | Data Portability ---
Author Organization [facility] RONDA HobbsS [place] [facility] Address [address] [place] [address] Care Team Providers Care Umbrella Supervisor Name Role Phone MATTHEW RAMSEY Referring Provider Assessment No assessment recorded. Plan of Treatment Reminders Order Date Submit Date Provider Last Modified By Organization Details Last Modified Time Details Appointments NEW PATIENT 2025 03:50P M JULIA FOX MD Not available Not available Not available Lab urinalysi s panel, auto [address] [facility], [address] [place] [address], [address] [place] [address], [address], 11/30/2022 17:16:25 Referral None recorded. Procedures None recorded. Surgeries None recorded. Imaging None recorded. Medication Orders hydrocodo ne 7.5 mg-acetam inophen 325 mg tablet [address] [facility], [address] [place] [address], [id number], 12/01/2022 23:16:21 Patient TargetsNo targets recorded. Patient InstructionsNo instructions recorded. Reason for Referral None Reported. Results Created Date Observation Date Name Description Value Unit Range Abnormal Flag Note LastModifiedBy Organization Detail LastModifiedTime 12/01/19 23 11/30/2022 urina lysis panel , auto Unknown Analyte Clean Catch Not Available [facility] [address], [place], [address], 11/30/2022 15:52:30 12/01/19 23 11/30/2022 urina lysis panel , auto Unknown Analyte Yellow Not Available [facility] [address], [place], [address], 11/30/2022 15:52:30 12/01/19 23 11/30/2022 urina lysis panel , auto Unknown Analyte Clear Not Available [facility] [address], [place], [address], 11/30/2022 15:52:30 12/01/19 23 11/30/2022 urina lysis panel , auto Unknown Analyte 1.015 Not Available [facility] [address], [place], [address], 11/30/2022 15:52:30 12/01/19 23 11/30/2022 urina lysis panel , auto Unknown Analyte 7.0 Not Available [facility] [address], [place], [address], 11/30/2022 15:52:30 12/01/19 23 11/30/2022 urina lysis panel , auto Unknown Analyte Negati ve Not Available [facility] [address], [place], [address], 11/30/2022 15:52:30 12/01/19 23 11/30/2022 urina lysis panel , auto Unknown Analyte Negati ve Not Available [facility] [address], [place], [address], 11/30/2022 15:52:30 12/01/19 23 11/30/2022 urina lysis panel , auto Unknown Analyte Negati ve Not Available [facility] [address], [place], [address], 11/30/2022 15:52:30 12/01/19 23 11/30/2022 urina lysis panel , auto Unknown Analyte Normal Not Available [facility] [address], [place], [address], 11/30/2022 15:52:30 12/01/19 23 11/30/2022 urina lysis panel , auto Unknown Analyte Negati ve Not Available [facility] [address], [place], [address], 11/30/2022 15:52:30 12/01/19 23 11/30/2022 urina lysis panel , auto Unknown Analyte Normal Not Available [facility] [address], [place], [address], 11/30/2022 15:52:30 12/01/19 23 11/30/2022 urina lysis panel , auto Unknown Analyte Negati ve Not Available [facility] [address], [place], [address], 11/30/2022 15:52:30 12/01/19 23 11/30/2022 urina lysis panel , auto Unknown Analyte Negati ve Not Available [facility] [address], [place], [address], 11/30/2022 15:52:30 12/20/19 23 12/18/2022 fluor oscop y (PROC ) No observ ation record ed. [id number] [facility] [address] [facility], [place], [address], 12/21/2022 21:32:21 Result Notes None recorded. Problems No Known Problems Medical Equipment None Reported. Allergies Allergen ID Allergen Name Allergen Category Reaction Reaction Severity Criticality Documentation Date Start Date Code Code System Note Provider Name and Address Organization Details Recorded Time 685494 Substance with sulfonami de structure and antibacte rial mechanism of action (substanc e) medicatio n Not available Not available Not available 11/30/2022 80910 8003 SNOMED [facility] 15:51:45 480601 Non-stero idal anti-infl ammatory agent (substanc e) medicatio n Not available Not available Not available 11/30/2022 61275 5008 SNOMED Honey [facility] 15:51:55 669651 Latex (substanc e) environme nt,medica tion Not available Not available Not available 11/30/2022 61632 8007 SNOMED Honey [facility] 15:52:01 087381 coconut extract food,medi cation anaphylax is Not available high 08/22/20252017 47807 48 RxNorm Not Available keegan - [employer] Data [employer] - prod 14:38:51 557987 latex environme nt,medica tion hives Not available high 08/22/20252017 08558 91 RxNorm Not Available keegan - External Data [employer] - prod 14:38:51 156945 pineapple extract food anaphylax is Not available high 08/22/20252017 04673 74 RxNorm Not Available keegan - External Data Service - prod 14:38:51 040749 celecoxib medicatio n Not available Not available high 08/22/20252018 70761 7 RxNorm Celeb cristofer; mica ates ibupr ofen, ketor olac Celeb cristofer; mica ates ibupr ofen, ketor olac Celeb cristofer; mica ates ibupr ofen, ketor olac Celeb cristofer; mica ates ibupr ofen, ketor olac Not Available keegan - External Data Service - prod 14:41:21 770950 coconut oil food,medi cation Not available Not available high 08/22/20252017 74580 39 RxNorm Not Available keegan - External Data Service - prod 14:41:21 128898 ibuprofen medicatio n Not available Not available low 08/22/20252021 5640 RxNorm GI Bleed ing GI Bleed ing Not Available [facility] [employer] - prod 14:41:21 610345 iron medicatio n Not available Not available high 08/22/20252022 72356 RxNorm Not Available [facility] [employer] - prod 14:41:21 269973 metoclopr amide Not available Not available Not available Not available 08/22/2025 6915 RxNorm unrec ogniz ed react ion (text : Adver se react ion to subst ance, code: 86622 0009) (from exter nal sourc e) Not Available [facility] [employer] - prod 14:41:27 298509 coconut allergeni c extract food,medi cation anaphylax is Not available high 08/22/20252017 52874 1 RxNorm Not Available [facility] [employer] - prod 14:41:28 291118 dicyclomi ne medicatio n Not available Not available Not available 08/22/20252018 3361 RxNorm Not Available [facility] [employer] - prod 14:41:28 449605 pineapple allergeni c extract food,medi cation anaphylax is Not available high 08/22/20252017 03549 5 RxNorm Not Available [facility] [employer] - prod 14:41:28 691954 nitroglyc connie medicatio n Not available Not available Not available 08/22/20252018 4917 RxNorm unrec ogniz ed react ion (text : Nause a And Vomit ing, code: 62900 000) (from exter nal sourc e) Not Available [employer] - prod 14:43:01 545401 metoclopr amide hydrochlo ride medicatio n Not available Not available Not available 08/22/20252017 15636 6 RxNorm Twitc hy unrec ogniz ed react ion (text : Other (See Comme nts), code: 47840 003) (from exter nal sourc e) Not Available [employer] - prod 14:43:01 125311 sulfameth oxazole / trimethop rim medicatio n hives Not available Not available 08/22/20252020 17192 RxNorm Not Available [employer] - prod 14:44:55 Medications Name [...] Address Organization Details Last Updated DateTime 11/30/2022 77246.82 g 22.9 kg/m2 175.26 cm [facility] 11/30/2022 15:51:26 Social History None recorded. Functional Status None recorded. Mental Status None recorded. Family History Nothing Reported. Medical History No medical history recorded. Gynecological HistoryNo gynecological history recorded. Obstetrics History GPAL:G 0 P 0 0 0 0 Past Encounters Encounter ID Performer Location Encounter Start Date Encounter Closed Date Diagnosis/Indication Diagnosis SNOMED-CT Code Diagnosis ICD10 Code Diagnosis IMO Codes Diagnosis Note [id number] MILDRED VIDES MD [facility] [address] [place] [address] 11/30/2022 15:19:19 11/30/2022 16:50:57 Urolithiasis 21977537 N20.9 arrange for above Health Concerns Section Related Observation LastModified by Organization Detai ls LastModified Time None Recorded Concern Status LastModified by Organization Details LastModified Time None Recorded Advance Directives Directive None Recorded Payers Insurance Date Sequence Insurance Name Policy Number Policy Interiano Covered Member ID Interiano Member ID Guarantor Name 02/23/2025 1 [facility] ([place] [id number] Maia Bleckley [id number] Maia Bleckley 09/06/[address] [facility] Maia Fermín [id number] Maia Bleckley 02/23/[address] [facility] [id number] Maia Bleckley [id number] Maia Bleckley Notes Date Note Type Note Provider Name and Address Organization Details Recorded Time 11/30/2022 text/html Here for initial visit for urolithiasis. She passed a stone years ago but now has had right sided back pain and urgency for several weeks. She brought ct scan disc from [facility] for review. No hydro and two tiny 1mm stones in right kidney. The pain is sign. at times. We discussed cysto and right retrograde to assess for missed stone on ct scan. MILDRED VIDES MD [facility] [facility] [place], [address], [facility] 12/01/2022 23:20:23 OBGyn Episode No OBEpisode recorded.
--- OUTSIDE RECORDS SUMMARY | 2025-09-25 16:58 | XMS_ITS | Clinical Summary ---
Author Organization [employer] ([place], [place], [place], [place], [place]) Address [address] [place] [address] Care Team Providers Care Tool Maintenance Technician Name Role Phone Unavailable Primary Care [...] Advance Directives For more information, please contact: [phone] * Full Code (Latest Code Status on File) Date Activated Date Inactivated Comments 11/11/2022 7:28 AM 11/11/2022 12:16 PM
--- OUTSIDE RECORDS SUMMARY | 2025-09-25 16:58 | XMS_ITS | Referral Summary ---
Author Organization [employer] ([place], [place], [place], [place], [place]) Address [address] [place] [address] Care Team Providers Care Chief Controller Station Name Role Phone Unavailable Primary Care Provider [...] Date Tommie rded Speak language other than Vietnamese at home Not on file 10/15/2023 Want [...] Advance Directives For more information, please contact: [phone] * Full Code (Latest Code Status on File) Date Activated Date Inactivated Comments 11/11/2022 7:28 AM 11/11/2022 12:16 PM
--- OUTSIDE RECORDS SUMMARY | 2025-09-25 16:58 | XMS_ITS | Encounter Summary ---
Author Organization [facility] Address [address] [place] [address] Care Team Providers Care Machine Packaging Technician Name Role Phone Michaela Sousa APRN Primary Care Provider + [phone] Encounter Details Date Type Department Care Team (Latest Contact Info) Description 08/25/2025 Travel Social History Tobacco Use Types Packs/Day Years Used Date Smoking Tobacco: Never Passive Smoke Exposure: Never Smokeless Tobacco: Never Alcohol Use Standard Drinks/Week Comments No 0 (1 standard drink = 0.6 oz pur e alcohol) [facility] Utilities Answer Date Recorded In the past 12 months has [employer], gas, oil, or water company threatened to [...] Date Recorded Retired Total Score 0 05/07/2021 [facility] [place] of Occupat ional Health - Occupational Stress [...] things needed for daily living? No 12/10/2024 [place] Depression Scale Answer Date Recorded [place] Depression Scale Total 2 12/22/2024 The thought [...] GED or equivalent No 08/13/2025 Preferred Language Congolese 08/13/2025 PHQ-2 Answer Date Recorded Patient Health [...] Description 10/31/2025 3:15 PM EST Office Visit [facility] [address] [address] Aminata Nassar MD [address] [address] documented as of this encounter Visit Diagnoses Not on filedocumented in this encounter Additional Health Concerns Infection Onset Date Last Indicated Resolved Time COVID (History) Comment:Per regional light out examiner for [facility], 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 The last day before reporting a new confirmed COVID-19 would be 12/08/20. -Alida Banda RN 09/09/2020 12/25/2020 documented as of this encounter Care Teams Machine Packaging Technician Relationship Specialty Start Date End Date Michaela Sousa APRN [address] [place] [address] [place] [address] PCP - General Internal Medicine 09/04/24 documented as of this encounter
--- OUTSIDE RECORDS SUMMARY | 2025-09-25 16:58 | XMS_ITS | Encounter Summary ---
Author Organization [facility] Address [address] [place] [address] Care Team Providers Care Police Service Technician Name Role Phone Michaela Sousa APRN Primary Care Provider + [phone] Encounter Details Date Type Department Care Team (Latest Contact Info) Description 08/28/2025 Travel Social History Tobacco Use Types Packs/Day Years Used Date Smoking Tobacco: Never Passive Smoke Exposure: Never Smokeless Tobacco: Never Alcohol Use Standard Drinks/Week Comments No 0 (1 standard drink = 0.6 oz pur e alcohol) [facility] Utilities Answer Date Recorded In the past 12 months has [employer], gas, oil, or water company threatened to [...] Date Recorded Retired Total Score 0 05/07/2021 [facility] [place] of Occupat ional Health - Occupational Stress [...] things needed for daily living? No 12/10/2024 [place] Depression Scale Answer Date Recorded [place] Depression Scale Total 2 12/22/2024 The thought [...] GED or equivalent No 08/13/2025 Preferred Language Djiboutian 08/13/2025 PHQ-2 Answer Date Recorded Patient Health [...] Visit [facility] [address] [address] Aminata Nsasar MD [address] [address] documented as of this encounter Visit Diagnoses Not on filedocumented in this encounter Additional Health Concerns Infection Onset Date Last Indicated Resolved Time COVID (History) Comment:Per regional interface developer for [facility], 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 The last day before reporting a new confirmed COVID-19 would be 12/08/20. -Alida Banda RN 09/09/2020 12/25/2020 documented as of this encounter Care Teams Police Service Technician Relationship Specialty Start Date End Date Michaela Sousa APRN [address] [place] [address] [place] [address] PCP - General Internal Medicine 09/04/24 documented as of this encounter
--- OUTSIDE RECORDS SUMMARY | 2025-09-25 16:58 | XMS_ITS | Clinical Summary ---
Author Organization [facility] Address [address] [place] [address] Care Team Providers Care Film Rental Clerk Name Role Phone Nonstaff, Referring Primary Care Provider [phone] Johnnie Shearer MD Unavailable [phone] Allergies Active Allergy Reactions Criticality Noted Date [...] 40 mg by mouth daily. Active Coenzyme N75-Uasrsxr E 100-5 mg-unit Capsule Take 400 mg [...] Relation to Subscriber:Self Name:Maia Kovacs Payer ID:[id number] ([facility]) Type:PPO Address: [facility] [id number] [place] [id number] Care Teams Film Rental Clerk Relationship Specialty Start Date End Date Nonstaff, MD [place] [address] [place] [address] PCP - General 02/16/23 Johnnie Shearer MD [address] [place], [place] [id number] Gastroenterology 02/16/23
--- OUTSIDE RECORDS SUMMARY | 2025-09-25 16:59 | XMS_ITS | Clinical Summary ---
Author Organization [facility] Address [address] [place] [address] Care Team Providers Care Wrapping Clerk Name Role Phone Lars Michaela KING Primary Care Provider + [phone] Allergies Active Allergy Reactions Criticality Noted Date [...] Hours As Needed (constipation) . 4 each 5 Active cyclobenzaprine (FLEXERIL) 10 [...] VIA NEBULIZER EVERY 6 HOURS 5 Active naloxone (NARCAN) 4 MG/0.1ML nasal spray Administer 1 spray into the nostril(s) as directed by provider As Needed for Opioid Reversal. Call 911. Don't prime. Pinson in 1 nostril for overdose. Repeat in 2-3 minutes in other nostril if no or minimal breathing/resp onsiveness. 1 each 5 Active oxyCODONE-acetamin ophen (PERCOCET) 10-325 MG per tabletIndications: Lower abdominal pain,History of recent surgery Take 1 tablet by mouth Every 6 (Six) Hours As Needed for Severe Pain. 12 tablet 5 Active oxyCODONE (Roxicodone) 5 MG immediate release tabletIndications: Right lower quadrant abdominal pain Take 2 tablets by mouth Every 6 (Six) Hours As Needed for Severe Pain. 12 tablet 5 Active lidocaine (LIDODERM) 5 % Place 1 patch on the skin as directed by provider Daily. Remove & Discard patch within 12 hours or as directed by MD 30 patch 4 5 Active Active Problems Problem Noted Date [...] (09/28/2018): Added automatically from request for surgery [id number] RLQ abdominal pain 09/22/2018 Overview (09/28/2018): Added automatically from request for surgery [id number] B12 deficiency 09/22/2018 Overview (09/28/2018): Added automatically from request for surgery [id number] Chronic anemia 09/18/2018 Narcotic habituation, continuous 09/17/2018 Anxiety disorder 05/12/2018 Vocal cord dysfunction 05/10/2018 Stridor 2018 Respiratory distress 05/07/2018 Moderate persistent asthma with acute exacerbati on 05/07/2018 Chronic nausea 05/07/2018 Epigastric abdominal pain 05/07/2018 Overview (05/12/2018): Added automatically from request for surgery [id number] Generalized abdominal pain 12/09/2017 Resolved Problems Problem Noted Date Diagnosed Date Resolved Date ROM (rupture of membranes), premature 12/10/2024 12/10/2024 Hematemesis 05/16/2022 05/18/2022 uterine contractions in third trimester, antepartum 04/24/2021 05/17/2021 Decreased movement 02/05/2021 11/20/2020 05/17/2021 Overview (11/20/2020): cfDNA Acute dehydration 12/14/2019 10/16/2020 Influenza B 12/14/2019 10/16/2020 Drug-induced constipation 09/22/2018 Overview (09/28/2018): Added automatically from request for surgery [id number] Non-cardiac chest pain 09/17/201810/16 Hypokalemia 09/17/2018 09/19/2018 Hypomagnesemia 09/17/2018 09/19/2018 Leukocytosis 05/07/2018 05/12/2018 Elevated liver enzymes 02/27/201810/16 Intractable nausea and vomiting 02/27/2018 03/01/2018 Intractable cyclical vomiting with nausea 02/27/2018 03/01/2018 Encounters Date Type Department Care Team Description 09/08/2025 10:34 AM EST - 09/08/2025 2:48 PM EST Emergency [facility] [address] [place] [address] Gorge Blanco MD Lower abdominal pain (Primary Dx); Right lower quadrant abdominal pain Discharge Disposition: Home or Self Care 09/08/2025 Travel 08/28/2025 1:55 PM EST Lab [facility] [address] [place] [phone] Post-op pain 08/28/2025 Travel 08/25/2025 4:28 PM EST - 08/25/2025 7:45 PM EST Emergency [facility] [address] [place] [phone] Kalin Morales DO Lower abdominal pain (Primary Dx); History of recent surgery Discharge Disposition: Home or Self Care 08/25/2025 Travel 08/20/2025 9:12 AM EST Anesthesia Event [facility] [address] [place] [address] Darrell Iyer Jr., MD 08/20/2025 8:54 AM EST - 08/20/2025 10:47 AM EST Surgery [facility] [address] [place] [address] Chelita Jackson MD TOTAL ROBOTIC HYSTERCETOMY BILATERAL SALPINGO-OOPHRECTOMY 08/20/2025 6:43 AM EST - 08/20/2025 2:00 PM EST Hospital Encounter [facility] [address] [place] [address] Chelita Jackson MD Endometriosis Discharge Disposition: Home or Self Care 08/20/2025 Travel 08/13/2025 10:30 AM EST Pre-Admission Testing [facility] [address] [place] [address] Endometriosis determined by laparoscopy 08/13/2025 Travel 07/27/2025 Refill [facility] [address] [phone] Aminata Nassar MD Hyperemesis gravidarum 07/23/2025 Prep for Surgery [facility] ORDERS ONLY [address] [place] [address] Chelita Jackson MD Endometriosis determined by laparoscopy [...] drink = 0.6 oz pur e alcohol) [facility] [employer] Answer Date Recorded In the past 12 months has e [employer], gas, oil, or water [employer] threatened to shut off services in your [...] Total Score 0 05/07/2021 [facility] [place] [facility] - Occupational [...] things needed for daily living? No 12/10/2024 [place] Depression Scale Answer Date Recorded [place] Depression Scale Total 2 12/22/2024 The thought [...] GED or equivalent No 08/13/2025 Preferred Language Bhutanese 08/13/2025 PHQ-2 Answer Date Recorded Patient Health [...] Office Visit [facility] [address] [phone] Aminata Nassar MD [address] [id number] Health Maintenance Due Date Last Done Comments Annual Gynecologic Pelvic an d Breast Exam 1992 Pneumococcal Vaccine 0-49 (1 of 2 - PCV) 2011 TDAP/TD VACCINES (1 - Tdap) 2011 ANNUAL PHYSICAL 12/14/2017 INFLUENZA VACCINE 04/27/2025 07/15/2023, , 06/07/2018, Additional history exists HEPATITIS C SCREENING Completed 10/17/2020 , 12/08/2018, 12/10/2017 Medical Devices Implanted Type Area Data Communications Technician Device Identifier Shelf Expiration Date Model / Serial / Lot Stnt Percuflx No Gw 4.8x26 - [id number] Implanted:Qty: 1 on 12/18/2022 by Raulito Lancaster MD at [facility]: Urinary Bladder [employer] 08/19/2025 [id number] / / [id number] Procedures Procedure Name Priority Date/Time Associated Diagnosis [...] ANESTHESIA INTUBATION Routine 08/20/2025 9:35 AM EST MD LAPS FULG/EXC OVARY VISCERA/PERITONEAL SURFACE 08/20/2025 8:57 [...] MD 09/08/2025 12:25 PM EST Workstation ID: [id number] Narrative 09/08/2025 12:[address] ABDOMEN [...] MD 09/08/2025 12:25 PM EST Workstation ID: [id number] Namita Hernandez SAMPLE HAND IMG CT ORDERABLES Final R esult * Urinalysis With Microscopic If Indicated (No Culture) - Urine, Clean Catch (09/08/2025 11:01 AM EST) Only the most recent of2 resultswithin the time period is included. Color, UA Yellow Yellow, Straw 09/08/2025 11:31 AM [facility] Appearance, UA Clear Clear 09/08/2025 11:31 AM [facility] pH, UA 6.0 5.0 - 8.0 09/08/2025 11:31 AM [facility] Specific [place], UA 1.017 1.005 - 1.030 09/08/2025 11:31 AM [facility] Glucose, UA Negative Negative 09/08/2025 11:31 AM [facility] Ketones, UA Negative Negative 09/08/2025 11:31 AM [facility] Bilirubin, UA Negative Negative 09/08/2025 11:31 AM [facility] Blood, UA Negative Negative 09/08/2025 11:31 AM [facility] Protein, UA Negative Negative 09/08/2025 11:31 AM [facility] Leuk Esterase, UA Negative Negative 09/08/2025 11:31 AM [facility] Nitrite, UA Negative Negative 09/08/2025 11:31 AM [facility] Urobilinogen, UA 0.2 E.U./dL 0.2 - 1.0 E.U./dL 09/08/2025 11:31 AM [facility] Urine Urine specimen obtained by clean catch procedure / Unknown Collection / Unknown 09/08/2025 11:01 AM EST 09/08/2025 11:27 AM EST Narrative [facility] - 09/08/2025 11:31 AM EST Urine microscopic not indicated. us Namita Hernandez SAMPLE HAND URINE ORDERABLES Final Re sult [facility]
[address] [place] [address], * (ABNORMAL) CBC Auto Differential (09/08/2025 11:01 AM EST) Only the most recent of4 resultswithin the time period is included. WBC 8.91 3.40 - 10.80 10*3/mm3 09/08/2025 11:28 AM [facility] RBC 4.43 3.77 - 5.28 10*6/mm3 09/08/2025 11:28 AM [facility] Hemoglobin 12.3 12.0 - 15.9 g/dL 09/08/2025 11:28 AM [facility] Hematocrit 37.4 34.0 - 46.6 % 09/08/2025 11:28 AM [facility] MCV 84.4 79.0 - 97.0 fL 09/08/2025 11:28 AM [facility] MCH 27.8 26.6 - 33.0 pg 09/08/2025 11:28 AM [facility] MCHC 32.9 31.5 - 35.7 g/dL 09/08/2025 11:28 AM [facility] RDW 13.2 12.3 - 15.4 % 09/08/2025 11:28 AM [facility] RDW-SD 40.8 37.0 - 54.0 fl 09/08/2025 11:28 AM [facility] MPV 8.8 6.0 - 12.0 fL 09/08/2025 11:28 AM [facility] Platelets 367 140 - 450 10*3/mm3 09/08/2025 11:28 AM [facility] Neutrophil % 81.1(H) 42.7 - 76.0 % 09/08/2025 11:28 AM [facility] Lymphocyte % 10.0(L) 19.6 - 45.3 % 09/08/2025 11:28 AM [facility] Monocyte % 5.3 5.0 - 12.0 % 09/08/2025 11:28 AM [facility] Eosinophil % 2.5 0.3 - 6.2 % 09/08/2025 11:28 AM [facility] Basophil % 0.7 0.0 - 1.5 % 09/08/2025 11:28 AM [facility] Immature Grans % 0.4 0.0 - 0.5 % 09/08/2025 11:28 AM [facility] Neutrophils, Absolute 7.23(H) 1.70 - 7.00 10*3/mm3 09/08/2025 11:28 AM [facility] Lymphocytes, Absolute 0.89 0.70 - 3.10 10*3/mm3 09/08/2025 11:28 AM [facility] Monocytes, Absolute 0.47 0.10 - 0.90 10*3/mm3 09/08/2025 11:28 AM [facility] Eosinophils, Absolute 0.22 0.00 - 0.40 10*3/mm3 09/08/2025 11:28 AM [facility] Basophils, Absolute 0.06 0.00 - 0.20 10*3/mm3 09/08/2025 11:28 AM [facility] Immature Grans, Absolute 0.04 0.00 - 0.05 10*3/mm3 09/08/2025 11:28 AM [facility] nRBC 0.0 0.0 - 0.2 /100 WBC 09/08/2025 11:28 AM [facility] Blood Venipuncture / Unknown 09/08/2025 11:01 AM EST 09/08/2025 11:19 AM EST us Namita Cavazos David SAMPLE HAND LAB BLOOD ORDERABLES Kate l Result [facility]
[address] [place] [address], * (ABNORMAL) Lipase (09/08/2025 11:01 AM EST) Lipase 12(L) 13 - 60 U/L 09/08/2025 11:54 AM [facility] Blood Venipuncture / Unknown 09/08/2025 11:01 AM EST 09/08/2025 11:29 AM EST Namita Hernandez SAMPLE HAND LAB BLOOD ORDERABLES Kate faulkner Result [facility]
[address] [place] [address], * Comprehensive Metabolic Panel (09/08/2025 11:01 AM EST) Only the most recent of2 resultswithin the time period is included. Glucose 96 65 - 99 mg/dL 09/08/2025 11:54 AM [facility] BUN 6.9 6.0 - 20.0 mg/dL 09/08/2025 11:54 AM [facility] Creatinine 0.62 0.57 - 1.00 mg/dL 09/08/2025 11:54 AM [facility] Sodium 140 136 - 145 mmol/L 09/08/2025 11:54 AM [facility] Potassium 3.6 3.5 - 5.2 mmol/L 09/08/2025 11:54 AM [facility] Chloride 107 98 - 107 mmol/L 09/08/2025 11:54 AM [facility] CO2 24.2 22.0 - 29.0 mmol/L 09/08/2025 11:54 AM [facility] Calcium 8.9 8.6 - 10.5 mg/dL 09/08/2025 11:54 AM [facility] Total Protein 7.1 6.0 - 8.5 g/dL 09/08/2025 11:54 AM [facility] Albumin 4.1 3.5 - 5.2 g/dL 09/08/2025 11:54 AM [facility] ALT (SGPT) 15 1 - 33 U/L 09/08/2025 11:54 AM [facility] AST (SGOT) 20 1 - 32 U/L 09/08/2025 11:54 AM [facility] Alkaline Phosphatase 99 39 - 117 U/L 09/08/2025 11:54 AM [facility] Total Bilirubin 0.3 0.0 - 1.2 mg/dL 09/08/2025 11:54 AM [facility] Globulin 3.0 gm/dL 09/08/2025 11:54 AM [facility] Comment:Calculated Result A/G Ratio 1.4 g/dL 09/08/2025 11:54 AM [facility] BUN/Creatinine Ratio 11.1 7.0 - 25.0 09/08/2025 11:54 AM [facility] Anion Gap 8.8 5.0 - 15.0 mmol/L 09/08/2025 11:54 AM [facility] eGFR 120.8 >60.0 mL/min/1.7 3 09/08/2025 11:54 AM [facility] Blood Venipuncture / Unknown 09/08/2025 11:01 AM EST 09/08/2025 11:29 AM EST [facility] - 09/08/2025 11:54 AM EST [...] race as a factor us Namita Hernandez SAMPLE HAND LAB BLOOD ORDERABLES Kate faulkner Result [facility]
[address] [place] [address], * (ABNORMAL) Basic Metabolic Panel (08/28/2025 1:36 PM EST) Glucose 92 65 - 99 mg/dL 08/28/2025 8:02 PM [facility] BUN 8.0 6.0 - 20.0 mg/dL 08/28/2025 8:02 PM [facility] Creatinine 0.70 0.57 - 1.00 mg/dL 08/28/2025 8:02 PM [facility] Sodium 136 136 - 145 mmol/L 08/28/2025 8:02 PM [facility] Potassium 3.9 3.5 - 5.2 mmol/L 08/28/2025 8:02 PM [facility] Chloride 100 98 - 107 mmol/L 08/28/2025 8:02 PM [facility] CO2 21.7(L) 22.0 - 29.0 mmol/L 08/28/2025 8:02 PM [facility] Calcium 9.3 8.6 - 10.5 mg/dL 08/28/2025 8:02 PM [facility] BUN/Creatinine Ratio 11.4 7.0 - 25.0 08/28/2025 8:02 PM [facility] Anion Gap 14.3 5.0 - 15.0 mmol/L 08/28/2025 8:02 PM [facility] eGFR 117.3 >60.0 mL/min/1.7 3 08/28/2025 8:02 PM [facility] Blood Venipuncture / Unknown 08/28/2025 1:36 PM EST 08/28/2025 1:36 PM [facility] - 08/28/2025 8:02 PM EST GFR [...] MD LAB BLOOD ORDERABLES Final R esult [facility]
[address] [place] [address], [place] [phone] * Lactic Acid, Plasma (08/25/2025 5:25 PM EST) Lactate 0.7 0.5 - 2.0 mmol/L 08/25/2025 6:16 PM EST [facility] Comment:Falsely depressed re sults may occur on samples drawn from patients receiving N-Acetylcysteine (NAC) or Metamizole. Blood Venipuncture / Unknown 08/25/2025 5:25 PM EST 08/25/2025 5:48 PM EST Kalin Morales DO LAB BLOOD ORDERABLES Final Resul t [facility]
[address] [place] [address], [place] [phone] * Urinalysis, Microscopic Only - Urine, Clean Catch (08/25/2025 5:20 PM EST) RBC, UA 0-2 None Seen, 0-2 /HPF 08/25/2025 5:48 PM EST [facility] WBC, UA 0-2 None Seen, 0-2 /HPF 08/25/2025 5:48 PM EST [facility] Bacteria, UA None Seen None Seen /HPF 08/25/2025 5:48 PM EST [facility] Squamous Epithelial Cells, UA 0-2 None Seen, 0-2 /HPF 08/25/2025 5:48 PM EST [facility] Hyaline Casts, UA None Seen None Seen /LPF 08/25/2025 5:48 PM EST [facility] Methodology Automated Microscopy 08/25/2025 5:48 PM EST [facility] Urine Urine specimen obtained by clean catch procedure / Unknown Collection / Unknown 08/25/2025 5:20 PM EST 08/25/2025 5:40 PM EST us Kalin Morales DO URINE ORDERABLES Final Result [facility]
[address] [place] [address], * Tissue Pathology Exam (08/20/2025 10:03 AM EST) Case Report Surgical Pathology Report Case: [id number] Authorizing Provider: Chelita aJckson MD Collected: 08/20/2025 10:15 AM Ordering Location: [facility] Received: 08/20/2025 11:21 AM OR Pathologist: Wade Lawler MD Specimens: 1) - Peritoneum, Peritoneal Lesion For Permanent 2) - Uterus with Cervix, Bilateral Tubes and Ovaries, in formalin 08/21/2025 12:23 PM EST [facility] Clinical Information Endometriosis 08/21/2025 12:23 PM EST [facility] Final Diagnosis PERITONEAL LESION, BIOPSY: Endometriosis 2. UTERUS, CERVIX, BILATERAL OVARIES AND FALLOPIAN TUBES, HYSTERECTOMY WITH BILATERAL SALPINGO-OOPHORECT JIGAR: Benign cervix with mild chronic cervicitis Benign endometrial glands and stroma Benign bilateral ovaries No fallopian tubes grossly or histologically identified Negative for dysplasia or malignancy 08/21/2025 12:23 PM EST [facility] at 1223 EST Gross Description 1. [...] diameter and sectioning reveals a questionable lumen. Dock Operator sections are submitted as follows: 2A: Anterior and posterior cervix 2B: Full-thickness anterior endomyometrium 2C: Full-thickness posterior endomyometrium 2D: Right ovary 2E: Left ovary and possible left fallopian tube HDM 08/21/2025 12:23 PM EST [facility] Microscopic Description The slides are reviewed and demonstrate histopathologic features supporting the above rendered diagnosis. 08/21/2025 12:23 PM EST [facility] Tissue Specimen from peritoneum / Unknown 08/20/2025 10:03 AM EST 08/20/2025 11:21 AM EST Tissue specimen (specimen) Uterus and cervix, CS / Unknown 08/20/2025 10:15 AM EST 08/20/2025 11:21 AM EST us Chelita Jackson MD PATHOLOGY/CYTOLOGY ORDERABLE S Final Result [facility]
[address] [place] [address], * BH AN ETT AIRWAY (08/20/2025 9:35 AM EST) Narrative Shannan Juárez CRNA - 08/20/2025 9:35 AM EST Shannan Juárez CRNA 08/20/2025 9:35 AM Airway Reason: elective Date/Time: 08/20/2025 9:18 AM Airway not difficult General Information and Staff Patient location during procedure: OR SYSTEMS ARCHITECT/CAA: Shannan Juárez CRNA Indications and Patient [...] AM EST) HCG, Urine, QL Negative Negative [facility] Lot Number [id number] [facility] Internal Positive Control Positive Positive, Passed [facility] Internal Negative Control Negative Negative, Passed [facility] Expiration Date 02-18-27 [facility] Urine 08/20/2025 8:06 AM EST Darrell Iyer Jr., MD POINT OF CARE TEST ADÁN OLIVEROS Final Result [facility]
[address] [place] [address], * SCANNED PATHOLOGY (08/20/2025) [facility] PATHOLOGY/CYTOLOGY ORDERABLES Final Result * Urinalysis With Culture If Indicated - Urine, Clean Catch (08/13/2025 9:38 AM EST) Color, UA Yellow Yellow, Straw 08/13/2025 10:27 AM [facility] Appearance, UA Clear Clear 08/13/2025 10:27 AM [facility] pH, UA 5.5 5.0 - 8.0 08/13/2025 10:27 AM [facility] Specific [place], UA 1.014 1.005 - 1.030 08/13/2025 10:27 AM [facility] Glucose, UA Negative Negative 08/13/2025 10:27 AM [facility] Ketones, UA Negative Negative 08/13/2025 10:27 AM [facility] Bilirubin, UA Negative Negative 08/13/2025 10:27 AM [facility] Blood, UA Negative Negative 08/13/2025 10:27 AM [facility] Protein, UA Negative Negative 08/13/2025 10:27 AM [facility] Leuk Esterase, UA Negative Negative 08/13/2025 10:27 AM [facility] Nitrite, UA Negative Negative 08/13/2025 10:27 AM [facility] Urobilinogen, UA 0.2 E.U./dL 0.2 - 1.0 E.U./dL 08/13/2025 10:27 AM [facility] Urine Urine specimen obtained by clean catch procedure / Unknown Collection / Unknown 08/13/2025 9:38 AM EST 08/13/2025 10:24 AM [facility] - 08/13/2025 10:27 AM EST In absence of clinical symptoms, the presence of pyuria, bacteria, and/or nitrites on the urinalysis result does not correlate with infection. Urine microscopic not indicated. Chelita Jackson MD URINE ORDERABLES Final Resul t Performing Organization Address City/State/[facility] Co de Phone Number [facility]
[address] [place] [address], * Hepatitis C Antibody (10/17/2020 2:08 PM EST) Hepatitis C Ab Non-Reacti ve Non-Reacti ve 10/17/2020 7:29 PM EST [facility] Blood Venipuncture / Unknown 10/17/2020 2:08 PM EST 10/17/2020 2:08 PM EST Narrative [facility] - 10/17/2020 7:29 PM EST Results may be falsely decreased if patient taking Biotin. Tash Jackson MD LAB BLOOD ORDERABLES Final Resul t Performing Organization Address [facility] Co de Phone Number [facility]
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 The last day before reporting a new confirmed COVID-19 would be 12/08/20. -Alida Banda RN 09/09/2020 12/25/2020 Insurance [facility] Advance Directives * CPR (Attempt to Resuscitate) [...] Of Support Discussed With: Patient Care Teams Wrapping Clerk Relationship Specialty Start Date End Date Michaela Sousa APRN [address] [place] [address] [place]INA [phone] PCP - General Internal Medicine 09/04/24
[2025-09-25 17:04] VITALS: BP 111/88; PULSE 112; RESP 24; TEMP 36.8; O2SAT 94; BMI 23.6
--- NOTE | 2025-09-25 17:04 | PC.NURSE ---
1 unsuccessful USIV attempt by Macy Patel RN to R [facility]
[2025-09-25 17:27] VITALS: PULSE 112
[2025-09-25 17:30] VITALS: RESP 16
--- NOTE | 2025-09-25 17:42 | XR_ITS ---
PROCEDURE INFORMATION: Exam: XR Chest Exam date and time: 09/25/2025 6:49 PM Age: 35 years old Clinical indication: Shortness of breath; Additional info: Cp/soa TECHNIQUE: Imaging protocol: Radiologic exam of the chest. Views: 1 view. COMPARISON: CT ANGIO CHEST PE PROTOCOL 09/23/2025 4:56 PM FINDINGS: Lungs: Unremarkable. No consolidation. Pleural spaces: Unremarkable. No pleural effusion. No pneumothorax. Heart/Mediastinum: Unremarkable. No cardiomegaly. Bones/joints: Unremarkable. IMPRESSION: No acute findings.
[2025-09-25 17:52] LABS: Hematocrit 36.1 % (37.0-47.0); Hemoglobin 11.5 g/dL (12.2-16.2); Immature Granulocytes % 0.9 %; Mean Corpuscular HGB Conc 31.9 g/dL (31.8-35.4); Mean Corpuscular Hemoglobin 27.8 pg (27.0-31.2); Mean Corpuscular Volume 87.4 fl (81-99); Nucleated Red Blood Cells % 0 %; Platelet Count 310 K/mm3 (142-424); Red Blood Count 4.13 M/mm3 (4.20-5.40); Red Cell Distribution Width-SD 44.7 fL; White Blood Count 17.4 K/mm3 (4.8-10.8)
[2025-09-25 17:58] LABS: Alanine Aminotransferase 22 U/L (12-78); Albumin Level 4.8 g/dl (3.5-5.0); Albumin/Globulin Ratio 1.6 (1.1-1.8); Alkaline Phosphatase 112 U/L (38-126); Anion Gap 13.5 mEq/L (5-15); Aspartate Amino Transferase 25 U/L (14-36); Bilirubin,Total 0.4 mg/dl (0.2-1.3); Blood Urea Nitrogen 18 mg/dl (7-17); Calcium 9.1 mg/dl (8.4-10.2); Carbon Dioxide 24 mmol/L (22.0-30.0); Chloride 104 mmol/L (98-107); Creatinine Clearance Estimated 127 mL/min (50-200); Creatinine,Serum 0.70 mg/dl (0.52-1.04); Estimated Glomerular Filt Rate 96 ml/min (>60); GFR (African American) 117 ML/MIN (>60); Globulin 3.0 g/dL (1.3-3.2); Glucose 107 mg/dl (74-100); Magnesium 1.5 mg/dl (1.6-2.3); Sodium 139 mmol/L (136-145); Total Protein,Serum 7.8 g/dl (6.3-8.2)
[2025-09-25 18:07] LABS: NT Pro Brain Natriuretic Pep. 38.3 pg/mL (0-125)
[2025-09-25 18:14] LABS: Troponin I < 0.01 ng/ml (0.00-0.034)
[2025-09-25 18:28] LABS: Potassium 2.5 mmoL/L (3.5-5.1)
[2025-09-25 18:33] LABS: Free T4 (Free Thyroxine) 0.99 ng/dl (0.78-2.19)
[2025-09-25] MEDS: MAGNESIUM OXIDE 400MG TABLET 400 MG PO (18:47)
[2025-09-25 18:48] LABS: Thyroid Stimulating Hormone 0.99 uIU/mL (0.465-4.68)
--- NOTE | 2025-09-25 18:50 | PC.NURSE ---
1845 Lani PENA to bedside to draw blood cultures. Pt requested provider to come to bedside to clarify why blood cultures needed to be drawn and wanted to inquire why she was not receiving anything for her chest pain. Jenise MONTGOMERY to bedside to speak with patient. Provider discussed in thorough detail about the patient's lab work, and course of treatment thus far and why certain options were not available for treatment. Provider offered to prescribe a dose of vistaril to the patient, pt declined. Provider stepped out and pt started to become verbally aggressive in the room cussing. This RN redirected patient and requested that patient not speak to staff in that manner. Pt then requested a different provider. 185 Dr Monster K[facility]IS[facility] to bedside to speak with patient, and reviewed the labs and plan for treatment. Provider discussed thoroughly the risks of leaving and the benefits of staying in the hospital. Pt agreeable to receive IV magnesium and potassium and oral replacements.
--- NOTE | 2025-09-25 19:02 | PC.NURSE ---
Went to obtain the blood cultures from the patient and i was informed that her nurse or provider have not been in there with any medications and she requested that they come in. Myself along with DEEPAK Roy, FERNANDO De Leon, and Nurse zach Oliveira went into the room and they continued to explain to her what was going on and why we were going to obtain the blood cultures. They continued to explain what was going on and then the provider and the nurse left. Nurse zach Oliveira and i stayed in the room and i asked if she wanted the blood cultures. At this time she informed me she was not sure but she did know she no longer wanted KNOTTING MACHINE OPERATOR Jenise Lizer on her case and asked if i would go inform them. Patient did state that she would be calling management. At this time i walked out and informed DEEPAK Roy, FERNANDO De Leon and Dr. Hook that she no longer wanted KNOTTING MACHINE OPERATOR Jenise Lizer on her case. Dr. Hook and i went into the room and came to the conclusion that blood cultures were not needed.
[2025-09-25] MEDS: POTASSIUM CHLORIDE 20MEQ TAB 40 MEQ PO (19:09)
[2025-09-25 19:23] VITALS: BP 123/86; PULSE 101; RESP 16; O2SAT 97
[2025-09-25] MEDS: MAGNESIUM SULFATE IN WATER 2 GM/50 ML PIGGYBACK IV (19:26)
[2025-09-25] MEDS: ACETAMINOPHEN 500MG TAB 1000 MG PO (19:27)
[2025-09-25 20:12] VITALS: BP 123/86; PULSE 101; RESP 18; TEMP 37; O2SAT 100
== END 2025-09-25 20:12 | disposition left against medical advice (07) ==
PROVIDERS: Nurse Practitioner Family; Emergency Provider Student in an Organized Health Care Education/Training Program; PCP Family Medicine
DX: R07.9 Chest pain, unspecified (principal); E87.6 Hypokalemia; R00.0 Tachycardia, unspecified; E83.42 Hypomagnesemia; R06.02 Shortness of breath
CPT/HCPCS: 71045; 80053; 83735; 83880; 84439; 84443; 84484; 85025; 93005; 96365; 96366; 96367; 99285; J3475